=== PATIENT | male | born 1945 | race Caucasian/White ===

== ENCOUNTER → 2017-10-21 15:24 | Outpatient (CLI) | payer MEDICARE, OTHER, SELFPAY ==
[2017-10-21 18:47] LABS: PSA,Total - Annual Screen 1.87 ng/mL (0.00-4.00)
== END ==
PROVIDERS: Visit Provider Urology
DX: Z12.5 Encounter for screening for malignant neoplasm of prostate (principal)
CPT/HCPCS: 36415; 84153; G0103

== ENCOUNTER → 2017-11-18 10:23 | Outpatient (CLI) | payer MEDICARE, OTHER, SELFPAY ==
--- NOTE | 2017-11-18 10:24 | STE_ITS ---
Reason For Study: Arrhythmia Stress Results Protocol: [place] Protocol Maximum Predicted HR: 148 bpm Target HR: 126 bpm% Max imum Predicted HR: 108 % DurationHeart Rate Stage (mm:ss) (bpm) BP Baseline 60 148/84 [place] Protocol Stage I 3:00 10 2 134/78 [place] Protocol Stage II 3:00 12 7 140/74 [place] Protocol Stage III 3:00 15 0 152/76 [place] Protocol Stage IV 1:00 16 0 / Recovery 85 134/80 Stress Duration: 10:00 mm:ss Maximum Stress HR: 160 bpmME TS: 13 Baseline Echocardiogram Findings Stress Echo Wall motion Data Resting WMIntermediate WMStress WM Resting Wall Motion Wall Motion Stress No regional wall motion No regional wall motion abnormalities noted. abnormalities noted. Ejection Fraction 55 %. Ejection Fraction 70 %. EKG Data Baseline ECG demonstrates normal sinus rhythm with a rate of 60 beats per minute. Normal intervals are noted. The resting blood pressure was 148/84. The patient exercised according to the regular [place] protocol for a total duration of 10 min. The maximum heart rate attained was 166 beats per minute. This was 112% of maximum predicted heart rate. The patient exercised into stage 4 of the [place] protocol. During stress, there were no ST or T wave changes noted to suggest ischemia. At peak exercise, upsloping ST changes only were noted, which did not meet the criteria for ischemia. The peak blood pressure was 162/80. No arrhythmias noted. No clinical angina was noted. Interpretation Summary Normal resting LV systolic function. Nonstenotic valves. With stress, the LV size decreased and all segments augmented normally. The LVEF increased from 55% to 70%. Negative for ischemia at 112% of MPHR and at 13.4 METS. Terminated due to leg fatigue. Good BP response to exercise Ordering Physician: Petros Valdez Referring Physician: Petros Valdez Performed By: Evy Zamorano, RDCS, RVT
== END ==
PROVIDERS: Visit Provider Internal Medicine Cardiovascular Disease
DX: I49.9 Cardiac arrhythmia, unspecified (principal); I10 Essential (primary) hypertension; E78.00 Pure hypercholesterolemia, unspecified
CPT/HCPCS: 93017; 93350

== ENCOUNTER → 2018-06-23 06:21 | Outpatient (CLI) | payer MEDICARE, OTHER, SELFPAY ==
[2018-06-23 07:13] LABS: Absolute Neutrophil Count 3.5 X10^3/uL (2.0-7.7); Basophil# 0.04 X10^3/uL; Basophil% 0.7 % (0-1); Eosinophil# 0.34 X10^3/uL; Eosinophils% 6.1 % (0-5); Hematocrit 47.3 % (40-54); Hemoglobin 16.6 g/dl (13.0-16.5); Lymphocyte % 21.6 % (19-41); Mean Corp Hgb Conc 35.1 g/gl (32-36); Mean Corpuscular Hgb 34.8 pg (27.0-32.0); Mean Corpuscular Volume 99.2 fL (80-94); Mean Platelet Vol. 10.7 fl (6.2-12.0); Neutrophil # 3.47 X10^3/uL (2.7-7.7); Neutrophil % 62.6 % (47-70); Platelet Count 207 K/mm3 (150-450); RBC Distribution Width CV 12.7 % (11.6-14.6); RBC Distribution Width SD 45.8 fl (35.1-43.9); Red Blood Count 4.77 M/mm3 (4.6-6.2); White Blood Count 5.6 K/mm3 (4.4-11.0)
[2018-06-23 07:31] LABS: POSITIVE COUNT NO; POSITIVE DIFFERENTIAL NO; POSITIVE MORPHOLOGY NO
[2018-06-23 07:42] LABS: ALB/GLOB Ratio 1.2 RATIO (0.9-2.4); AST(SGOT) 18 U/L (15-37); Alanine Aminotransfer ALT/SGPT 29 U/L (16-61); Albumin, Serum 4.1 g/dL (3.2-5.0); Alkaline Phosphatase 81 U/L (45-117); Anion Gap 8 (5-15); BUN 20 mg/dL (7-18); BUN/Creat Ratio 21.6 RATIO (10-20); Calcium,Total 9.5 mg/dL (8.5-10.1); Chloride 105 mmol/L (98-107); Cholesterol 221 mg/dL (200); Creatinine, Serum 0.93 mg/dL (0.70-1.30); EST Glomerular Filtration Rate 85 mL/min (>60); Est Glom Filt Rate - Afr Amer 103 mL/min (>60); Globulin 3.4 g/dL (2.2-4.2); Glucose 84 mg/dL (74-106); High Density Lipoprotein 76 mg/dL; Potassium 4.4 mmol/L (3.5-5.1); Protein, Total 7.5 g/dL (6.4-8.2); Sodium Level 141 mmol/L (136-145); Triglycerides 90 mg/dL; Very Low Density Lipoprotein 18 mg/dL (5-40)
== END ==
PROVIDERS: Referring Provider Family Medicine; Visit Provider Family Medicine
DX: E78.5 Hyperlipidemia, unspecified (principal); R53.83 Other fatigue
CPT/HCPCS: 36415; 80053; 80061; 85025

== ENCOUNTER → 2018-11-18 14:12 | Outpatient (CLI) | payer MEDICARE, OTHER, SELFPAY ==
[2018-10-07 14:15] VITALS: BMI 22.5
[2018-11-18 16:01] LABS: PSA,Total - Annual Screen 1.98 ng/mL (0.00-4.00)
== END ==
PROVIDERS: PCP Family Medicine; Referring Provider Urology; Visit Provider Urology
DX: Z12.5 Encounter for screening for malignant neoplasm of prostate (principal)
CPT/HCPCS: 36415; 84153; G0103

== ENCOUNTER → 2018-12-23 06:12 | Outpatient (CLI) | payer MEDICARE, OTHER, SELFPAY ==
[2018-10-07 14:15] VITALS: BMI 22.5
[2018-12-23 08:45] LABS: AST(SGOT) 20 U/L (15-37); Alanine Aminotransfer ALT/SGPT 26 U/L (16-61); Albumin, Serum 4.1 g/dL (3.2-5.0); Alkaline Phosphatase 84 U/L (45-117); Bilirubin, Direct 0.12 mg/dL (0.00-0.30); Cholesterol 213 mg/dL (200); Globulin 3.1 g/dL (2.2-4.2); High Density Lipoprotein 78 mg/dL; Protein, Total 7.2 g/dL (6.4-8.2); Triglycerides 98 mg/dL; Very Low Density Lipoprotein 20 mg/dL (5-40)
== END ==
PROVIDERS: PCP Family Medicine; Referring Provider Family Medicine; Visit Provider Family Medicine
DX: E78.5 Hyperlipidemia, unspecified (principal)
CPT/HCPCS: 36415; 80061; 80076

== ENCOUNTER → 2019-05-13 11:32 | Outpatient (CLI) | payer MEDICARE, OTHER, SELFPAY ==
[2018-10-07 14:15] VITALS: BMI 22.5
[2019-05-13 12:41] LABS: Erythrocyte Sedimentation Rate < 1 mm/hr (0-20)
[2019-05-13 13:16] LABS: CRP < 2.90 mg/L (0.0-3.0)
== END ==
PROVIDERS: PCP Family Medicine; Referring Provider Family Medicine; Visit Provider Family Medicine
DX: M31.6 Other giant cell arteritis (principal)
CPT/HCPCS: 36415; 85652; 86140

== ENCOUNTER → 2019-07-17 06:02 | Outpatient (CLI) | payer MEDICARE, OTHER, SELFPAY ==
[2018-10-07 14:15] VITALS: BMI 22.5
[2019-07-17 07:37] LABS: Color, Urine Yellow (Yellow); Glucose, Dipstick Normal (Normal); Ketone-Dipstick Negative (Negative); Leukocyte Esterase-Dipstick Negative /ul (Negative); Nitrite-Dipstick Negative (Negative); Occult Blood-Urine Negative /ul (Negative); Protein-Dipstick Negative (Negative); Urine Bilirubin Dipstick Negative (Negative); Urine Clarity Sl. Cloudy (Clear); Urine Urobilinogen Normal (Normal)
[2019-07-17 07:40] LABS: Absolute Neutrophil Count 3.4 X10^3/uL (2.0-7.7); Basophil# 0.06 X10^3/uL; Basophil% 1.1 % (0-1); Eosinophil# 0.33 X10^3/uL; Eosinophils% 5.9 % (0-5); Hematocrit 46.7 % (40-54); Hemoglobin 16.4 g/dL (13.0-16.5); Lymphocyte % 23.3 % (19-41); Mean Corp Hgb Conc 35.1 g/dL (32-36); Mean Corpuscular Hgb 34.5 pg (27.0-32.0); Mean Corpuscular Volume 98.1 fL (80-94); Mean Platelet Vol. 11.1 fl (6.2-12.0); Monocyte# 0.51 X10^3/uL; Monocyte% 9.2 % (0-10); NRBC Flagged by Analyzer 0 % (0-5); Neutrophil # 3.35 X10^3/uL (2.7-7.7); Neutrophil % 60.1 % (47-70); Platelet Count 195 K/mm3 (150-450); RBC Distribution Width CV 11.9 % (11.6-14.6); RBC Distribution Width SD 43.7 fl (35.1-43.9); Red Blood Count 4.76 M/mm3 (4.6-6.2); White Blood Count 5.6 K/mm3 (4.4-11.0)
[2019-07-17 08:27] LABS: ALB/GLOB Ratio 1.2 RATIO (0.9-2.4); AST(SGOT) 16 U/L (15-37); Alanine Aminotransfer ALT/SGPT 24 U/L (16-61); Albumin, Serum 4.1 g/dL (3.2-5.0); Alkaline Phosphatase 84 U/L (45-117); Anion Gap 11 (5-15); BUN 23 mg/dL (7-18); BUN/Creat Ratio 24.8 RATIO (10-20); Calcium,Total 9.1 mg/dL (8.5-10.1); Chloride 104 mmol/L (98-107); Cholesterol 226 mg/dL (200); Creatinine, Serum 0.93 mg/dL (0.70-1.30); EST Glomerular Filtration Rate 85 mL/min (>60); Est Glom Filt Rate - Afr Amer 102 mL/min (>60); Globulin 3.3 g/dL (2.2-4.2); Glucose 83 mg/dL (74-106); High Density Lipoprotein 82 mg/dL; Potassium 3.9 mmol/L (3.5-5.1); Protein, Total 7.4 g/dL (6.4-8.2); Sodium Level 139 mmol/L (136-145); Thyroid Stim Hormone (TSH) 1.49 uIU/mL (0.358-3.74); Triglycerides 97 mg/dL; Very Low Density Lipoprotein 19 mg/dL (5-40)
== END ==
PROVIDERS: PCP Family Medicine; Referring Provider Family Medicine; Visit Provider Family Medicine
DX: Z00.00 Encounter for general adult medical examination without abnormal findings (principal); E78.5 Hyperlipidemia, unspecified; I10 Essential (primary) hypertension; R53.83 Other fatigue
CPT/HCPCS: 36415; 80053; 80061; 81002; 84443; 85025

== ENCOUNTER → 2020-07-07 | Outpatient (CLI) | payer MEDICARE, OTHER, SELFPAY ==
[2019-10-08 13:20] VITALS: BMI 22.3
[2020-07-07 07:11] LABS: Absolute Lymphocyte Count 1.24 X10^3/uL (0.83-4.51); Absolute Neutrophil Count 3.8 X10^3/uL (2.0-7.7); Basophil# 0.05 X10^3/uL; Basophil% 0.8 % (0-1); Eosinophil# 0.64 X10^3/uL; Eosinophils% 10.2 % (0-5); Hematocrit 47.5 % (40-54); Hemoglobin 16.5 g/dL (13.0-16.5); Lymphocyte # 1.24 X10^3/ul (4.0); Lymphocyte % 19.7 % (19-41); Mean Corp Hgb Conc 34.7 g/dL (32-36); Mean Corpuscular Hgb 34.7 pg (27.0-32.0); Mean Corpuscular Volume 99.8 fL (80-94); Mean Platelet Vol. 10.5 fl (6.2-12.0); Monocyte# 0.55 X10^3/uL; Monocyte% 8.8 % (0-10); NRBC Flagged by Analyzer 0 % (0-5); Neutrophil # 3.78 X10^3/uL (2.7-7.7); Neutrophil % 60.2 % (47-70); Platelet Count 216 K/mm3 (150-450); RBC Distribution Width SD 44.7 fl (35.1-43.9); Red Blood Count 4.76 M/mm3 (4.6-6.2); White Blood Count 6.3 K/mm3 (4.4-11.0)
[2020-07-07 07:51] LABS: ALB/GLOB Ratio 1.2 RATIO (0.9-2.4); AST(SGOT) 19 U/L (15-37); Alanine Aminotransfer ALT/SGPT 23 U/L (16-61); Albumin, Serum 4.1 g/dL (3.2-5.0); Alkaline Phosphatase 84 U/L (45-117); Anion Gap 7 (5-15); BUN 17 mg/dL (7-18); BUN/Creat Ratio 16.3 RATIO (10-20); Chloride 104 mmol/L (98-107); Cholesterol 282 mg/dL (200); Creatinine, Serum 1.04 mg/dL (0.70-1.30); EST Glomerular Filtration Rate 74 mL/min (>60); Est Glom Filt Rate - Afr Amer 90 mL/min (>60); Globulin 3.4 g/dL (2.2-4.2); Glucose 90 mg/dL (74-106); High Density Lipoprotein 88 mg/dL; PSA,Total - Annual Screen 2.08 ng/mL (0.00-4.00); Potassium 4.1 mmol/L (3.5-5.1); Protein, Total 7.5 g/dL (6.4-8.2); Sodium Level 139 mmol/L (136-145); Triglycerides 109 mg/dL; Very Low Density Lipoprotein 22 mg/dL (5-40)
== END | disposition home or self-care (01) ==
PROVIDERS: PCP Family Medicine; Referring Provider Family Medicine; Visit Provider Family Medicine
DX: Z00.00 Encounter for general adult medical examination without abnormal findings (principal); I10 Essential (primary) hypertension; E78.5 Hyperlipidemia, unspecified; Z12.5 Encounter for screening for malignant neoplasm of prostate
CPT/HCPCS: 36415; 80053; 80061; 84153; 85025; G0103

== ENCOUNTER → 2021-04-03 13:05 | Outpatient (CLI) | payer MEDICARE, OTHER, SELFPAY ==
[2020-10-06 12:19] VITALS: BMI 21.7
[2021-04-03 14:03] LABS: Erythrocyte Sedimentation Rate < 1 mm/hr (0-20)
[2021-04-03 14:27] LABS: BNP,B-Type NATRIURETIC PEPTIDE 30.3 pg/mL (0-100)
[2021-04-03 14:37] LABS: Rheumatoid Factor < 10.0 IU/mL (<15); Thyroid Stim Hormone (TSH) 0.81 uIU/mL (0.358-3.74)
[2021-04-05 14:42] LABS: ANTINUCLEAR ANTIBODIES DIRECT Negative (Negative)
== END ==
PROVIDERS: PCP Family Medicine; Referring Provider Family Medicine; Visit Provider Family Medicine
DX: M25.50 Pain in unspecified joint (principal); R60.0 Localized edema; R53.83 Other fatigue
CPT/HCPCS: 36415; 83880; 84443; 85652; 86038; 86431

== ENCOUNTER → 2021-04-18 12:36 | Outpatient (CLI) | payer MEDICARE, OTHER, SELFPAY ==
[2021-04-18 11:40] VITALS: BMI 21.7
[2021-04-18 13:47] LABS: Absolute Neutrophil Count 3.9 X10^3/uL (2.0-7.7); Basophil# 0.05 X10^3/uL; Basophil% 0.8 % (0-1); Eosinophil# 0.27 X10^3/uL; Eosinophils% 4.5 % (0-5); Hematocrit 44.6 % (40-54); Hemoglobin 15.4 g/dL (13.0-16.5); Lymphocyte % 21.9 % (19-41); Mean Corp Hgb Conc 34.5 g/dL (32-36); Mean Corpuscular Hgb 34.2 pg (27.0-32.0); Mean Corpuscular Volume 99.1 fL (80-94); Mean Platelet Vol. 11.3 fl (6.2-12.0); Monocyte# 0.44 X10^3/uL; Monocyte% 7.4 % (0-10); NRBC Flagged by Analyzer 0 % (0-5); Neutrophil # 3.86 X10^3/uL (2.7-7.7); Neutrophil % 65.1 % (47-70); Platelet Count 219 K/mm3 (150-450); RBC Distribution Width CV 11.9 % (11.6-14.6); RBC Distribution Width SD 43.5 fl (35.1-43.9); White Blood Count 5.9 K/mm3 (4.4-11.0)
[2021-04-18 14:28] LABS: ALB/GLOB Ratio 1.3 RATIO (0.9-2.4); AST(SGOT) 19 U/L (15-37); Alanine Aminotransfer ALT/SGPT 27 U/L (16-61); Albumin, Serum 4.1 g/dL (3.2-5.0); Alkaline Phosphatase 80 U/L (45-117); Anion Gap 5 (5-15); BUN 21 mg/dL (7-18); BUN/Creat Ratio 22.6 RATIO (10-20); Calcium,Total 8.9 mg/dL (8.5-10.1); Chloride 104 mmol/L (98-107); Creatinine, Serum 0.93 mg/dL (0.70-1.30); EST Glomerular Filtration Rate 84 mL/min (>60); Est Glom Filt Rate - Afr Amer 102 mL/min (>60); Globulin 3.1 g/dL (2.2-4.2); Glucose 104 mg/dL (74-106); Magnesium 2.3 mg/dL (1.6-2.6); Protein, Total 7.2 g/dL (6.4-8.2); Sodium Level 139 mmol/L (136-145)
== END ==
PROVIDERS: PCP Family Medicine; Referring Provider Nurse Practitioner Family; Visit Provider Nurse Practitioner Family
DX: E78.00 Pure hypercholesterolemia, unspecified (principal); I05.9 Rheumatic mitral valve disease, unspecified; I10 Essential (primary) hypertension; R00.2 Palpitations; R53.83 Other fatigue
CPT/HCPCS: 36415; 80053; 83735; 85025

== ENCOUNTER → 2021-05-01 12:31 | Outpatient (CLI) | payer MEDICARE, OTHER, SELFPAY ==
[2021-04-18 11:40] VITALS: BMI 21.7
--- NOTE | 2021-05-01 12:31 | ECHOD_ITS ---
Reason For Study: Edema, fatigue Procedure This was a 2D Doppler, Color Flow transthoracic echocardiogram. Exam performed in department. Left Ventricle Normal LV size. Left ventricular systolic function is normal. The estimated ejection fraction is 60 %. Stage 1 diastolic dysfunction. No regional wall motion abnormalities noted. Right Ventricle Normal RV size. Normal systolic function. Atria Normal left atrium. Normal right atrium. Mitral Valve There is mild mitral annular calcification. Mild mitral valve prolapse, posterior leaflet. Mild (1+) eccentric mitral valve insufficiency. Tricuspid Valve Normal tricuspid valve. Mild tricuspid valve insufficiency. Pulmonary artery systolic pressure is 23 mmHg. Aortic Valve Trisinus/trileaflet aortic valve. Mild focal aortic valve calcification. Pulmonic Valve Normal pulmonic valve. Great Vessels Normal aortic root. The pulmonary artery is normal size. Normal inferior vena cava. Pericardium/Pleural No pericardial effusion. MMode/2D Measurements & Calculations LVIDd: 4.4 cm IVSd: 1.1 cm Ao root diam: 3.7 cm LVIDs: 2.4 cm LVPWd: 1.0 cm RVDd: 3.5 cm FS: 45.7 % LAV(MOD-bp): 61.9 ml LVAd ap4: 32.5 cm2 LVAd ap2: 32.4 cm2 LAV(MOD-bp) Indexed: 30.9 ml/m2 LVLd ap4: 8.0 cm LVLd ap2: 8.1 cm LAV(MOD-sp2): 65.0 ml EDV(MOD-sp4): 109.3 ml EDV(MOD-sp2): 108.8 ml LAV(MOD-sp4): 60.1 ml EDV(sp4-el): 112.5 ml EDV(sp2-el): 109.7 ml LVAs ap4: 19.4 cm2 LVAs ap2: 20.3 cm2 LVLs ap4: 7.1 cm LVLs ap2: 7.6 cm ESV(MOD-sp4): 45.6 ml ESV(MOD-sp2): 46.1 ml ESV(sp4-el): 45.1 ml ESV(sp2-el): 45.6 ml EF(MOD-sp4): 58.2 % EF(MOD-sp2): 57.6 % EF(sp4-el): 59.9 % SV(MOD-sp4): 63.6 ml SV(MOD-sp2): 62.7 ml SV(sp4-el): 67.4 ml LA dimension(2D): 4.5 cm LA A4 area: 19.6 cm2 RA A4 area: 17.5 cm2 Doppler Measurements & Calculations MV E max chandler: 84.2 cm/sec Lat Peak E' Chandler: 6.3 cm/sec Med Peak E' Chandler: 4.8 cm/sec MV A max chandler: 86.9 cm/sec E/E' lat: 13.4 E/E' med: 17.6 MV E/A: 0.97 Ao V2 max: 127.2 cm/sec LV V1 max: 96.2 cm/sec PA V2 max: 119.7 cm/sec Ao max P.5 mmHg LV V1 max P.7 mmHg TR max chandler: 219.7 cm/sec TR max P.4 mmHg ECHO/Echo Complete Interpretation Summary Normal LV size. Left ventricular systolic function is normal. The estimated ejection fraction is 60 %. Stage 1 diastolic dysfunction. Mild (1+) eccentric mitral valve insufficiency. Mild mitral valve prolapse, posterior leaflet Ordering Physician: Nathanael Zamorano/Petros Valdez Referring Physician: Clarence Mullen M.D. Performed By: Petros Valdez MD
== END ==
PROVIDERS: PCP Family Medicine; Referring Provider Nurse Practitioner Family; Visit Provider Nurse Practitioner Family
DX: R00.2 Palpitations (principal); R53.83 Other fatigue; I10 Essential (primary) hypertension; E78.00 Pure hypercholesterolemia, unspecified; I05.9 Rheumatic mitral valve disease, unspecified
CPT/HCPCS: 93306

== ENCOUNTER → 2021-05-05 12:35 | Outpatient (CLI) | payer MEDICARE, OTHER, SELFPAY ==
[2021-04-18 11:40] VITALS: BMI 21.7
--- NOTE | 2021-05-05 12:37 | STE_ITS ---
Stress Results Protocol: [place] Protocol Maximum Predicted HR: 144 bpm Target HR: 122 bpm % Maximum Predicted HR: 100 % DurationHeart Rate Stage (mm:ss) (bpm) BP BASELINE 68 142/72 STAGE 1 3:00 86 140/80 STAGE 2 3:00 113 172/82 STAGE 3 3:00 137 182/82 STAGE 4 1:16 144 / RECOVERY 87 142/62 Stress Duration: 10:16 mm:ss Maximum Stress HR: 144 bpm Baseline Echocardiogram Findings Stress Echo Wall motion Data Resting WM Intermediate WM Stress WM ECHO/Stress Test Echo w/o Contrast Interpretation Summary Exercise stress echo. Stress protocol: Resting EKG demonstrates normal sinus rhythm with a rate of 65 bpm. The patient exercised according to regular [place] protocol for total duration of 10 minutes and 16 seconds compl eting 1 minute and 16 seconds into stage IV of the Salinas protocol. The maximum heart rate was 164 bpm which was 113% of maximum predicted heart rate the maximum workload was 13.4 metabolic equivalent s. The patient maintained sinus rhythm throughout the recording. There were occasional prematu re atrial and ventricular complexes noted towards the end of stage IV and during recovery. Th mayra were largely asymptomatic. At rest there were no ST changes noted to suggest ischemia and at peak exercise upsloping ST changes were noted which did not meet the criteria for ischemia. T here was an occasional blocked PAC noted. The peak blood pressure was 182/82 mmHg. The test was terminated due to target heart rate being achieved. Resting echocardiogram: The resting echocardiogram demonstrated ejection fracti on of 55%. At peak exercise there was thickening of all dent and reduction in low ventricular cav ity size peaking of ejection fraction of approximately 65%. No wall motion abnormalities were noted . Conclusion: Exercise stress echo with no EKG criteria or echocardiographic criteria for isc hemia. Good functional aerobic capacity. Ordering Physician: Nathanael Zamorano Referring Physician: Nathanael Zamorano
--- NOTE | 2021-05-05 15:13 | STRESSREP_ITS ---
Stress Test Report Exercise stress test. 76-year-old male with a history of cardiac dysrhythmia. Stress protocol: Resting EKG demonstrates normal sinus rhythm with a rate of 65 bpm normal intervals are noted. The resting blood pressure is 142/72 mmHg. The patient exercised according to regular [place] protocol for total duration of 10 minutes and 16 seconds completing 1 minute and 16 seconds into stage IV of the Sal[place] protocol. The maximum heart rate attained was 164 bpm which was 113% of max impact her heart rate the maximum workload was 13.4 metabolic equivalents. The patient maintained sinus rhythm throughout the recording the test was terminated due to the target heart rate being achieved. No chest pain was noted no arrhythmias were noted. The peak blood pressure was 182/82 mmHg with a rate- pressure product of 26,936. No clinical angina was noted. Conclusion: Stress test with no EKG criteria for ischemia at a high workload. Excellent functional aerobic capacity. No arrhythmias noted.
== END ==
PROVIDERS: PCP Family Medicine; Referring Provider Nurse Practitioner Family; Visit Provider Nurse Practitioner Family
DX: I05.9 Rheumatic mitral valve disease, unspecified (principal); I49.9 Cardiac arrhythmia, unspecified; R00.2 Palpitations; R53.83 Other fatigue; I10 Essential (primary) hypertension; E78.00 Pure hypercholesterolemia, unspecified
CPT/HCPCS: 93017; 93350

== ENCOUNTER 2021-10-05 06:14 | Outpatient (CLI) | payer MEDICARE, SELFPAY ==
[2021-10-05 09:10] LABS: ALB/GLOB Ratio 1.2 RATIO (0.9-2.4); AST(SGOT) 18 U/L (15-37); Alanine Aminotransfer ALT/SGPT 25 U/L (16-61); Albumin, Serum 4.1 g/dL (3.2-5.0); Alkaline Phosphatase 85 U/L (45-117); Anion Gap 7 (5-15); BUN 22 mg/dL (7-18); BUN/Creat Ratio 22.3 RATIO (10-20); Calcium,Total 9.1 mg/dL (8.5-10.1); Chloride 104 mmol/L (98-107); Cholesterol 230 mg/dL (200); Creatinine, Serum 0.99 mg/dL (0.70-1.30); EST Glomerular Filtration Rate 78 mL/min (>60); Est Glom Filt Rate - Afr Amer 95 mL/min (>60); Globulin 3.5 g/dL (2.2-4.2); Glucose 89 mg/dL (74-106); High Density Lipoprotein 79 mg/dL; Potassium 4.1 mmol/L (3.5-5.1); Protein, Total 7.6 g/dL (6.4-8.2); Sodium Level 138 mmol/L (136-145); Triglycerides 83 mg/dL; Very Low Density Lipoprotein 17 mg/dL (5-40)
[2021-10-05 09:20] LABS: Hepatitis C Antibody Non-Reactive (Nonreactive); Vitamin B12 > 2000 pg/mL (211-911)
== END 2021-10-05 23:59 | disposition short-term general hospital (02) ==
LOC: LAB 06:19
PROVIDERS: PCP Internal Medicine; Referring Provider Internal Medicine; Visit Provider Internal Medicine
DX: Z11.59 Encounter for screening for other viral diseases (principal); D75.89 Other specified diseases of blood and blood-forming organs; E78.5 Hyperlipidemia, unspecified; I10 Essential (primary) hypertension
CPT/HCPCS: 36415; 80053; 80061; 82607; 82746; 86803

== ENCOUNTER 2022-01-10 10:00 | Day surgery (SDC) | payer MEDICARE, SELFPAY ==
[2022-01-10] VITALS (7 sets, daily range): BP systolic 88–143; BP diastolic 61–88; PULSE 57–68; RESP 16–18; TEMP 36.2–36.5; O2SAT 92–100; BMI 21.8
--- NOTE | 2022-01-10 | COLBX_PTH ---
PATIENT: BRIANNA COLEMAN LOC: EN U#:[id number] AGE/SX: 76/M ROOM: RE01/10/[address]: Dr. David Parra DO : 1945 BED: DIS: 01/10/2022 SPEC #: [id number] RECD: 01/10/22 13:11 STATUS: AUBREY REDarien #: [id number] ANAIS: 01/10/22 00:[address]: David Parra DEPT: SURGICAL PATHOLOGY RECD BY: Kuldeep Chong ENTERED: 01/11/22 07:59 SP TYPE: COLON BX OTHR DR: Dr. Francheska Alonzo DO Tissues: A - Duodenum, NOS B - Gastric mucous membrane C - Esophageal mucous membrane D - Descending colon Procedures: Special Stain Group II Surgery Specimen Level IV Alcian Blue/PAS (control) HEADER OPERATION: Colonoscopy, [place] [place] PRE-OP DIAGNOSIS: History of Colon Polyp, GERD TISSUE SUBMITTED: A ? Duodenum biopsy, B - Gastric body biopsy, C - Distal Esophagus biopsy, D - Descending Colon polyp MICROSCOPIC DIAGNOSIS A. Duodenum, biopsy: Fragments of duodenal mucosa with mild Tono gland hyperplasia. B. Gastric body, biopsy: Mild gastritis. See microscopic description and comment. C. 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 Moderate chronic inflammation. Negative for dysplasia. See comment. D. Descending colon polyp, biopsy: A fragment of colonic mucosa, no pathologic diagnosis. Fragments of fecal material. SJ:sanjay 01/12/2022 COMMENT B. The results of immunohistochemistry for Helicobacter pylori will be reported separately ([id number]). C. Immunohistochemistry ([id number]) for P53 and Ki-67 will be performed and results will be reported separately. Alcian blue/PAS stain with matched control supports the above diagnosis. MICROSCOPIC DESCRIPTION Slides are reviewed. B. The specimen shows fragments of gastric mucosa with chronic inflammatory cell infiltrates in the lamina propria consisting of lymphocytes and plasma cells, consistent with mild chronic gastritis. GROSS DESCRIPTION A - Received in fixative is one container labeled with the patient's name and designated duodenum biopsy. The specimen consists of multiple irregular fragments of light rick soft tissue that in aggregate measure 0.5 x 0.5 x 0.1 cm. The specimen is totally submitted in one cassette. B - Received in fixative is one container labeled with the patient's name and designated gastric body biopsy. The specimen consists of multiple irregular fragments of light rick soft tissue that in aggregate measure 0.5 x 0.4 x 0.1 cm. The specimen is totally submitted in one cassette. C - Received in fixative is one container labeled with the patient's name and designated distal esophagus biopsy. The specimen consists of multiple irregular fragments of light rick soft tissue that in aggregate measure 0.6 x 0.3 x 0.1 cm. The specimen is totally submitted in one cassette. D - Received in fixative is one container labeled with the patient's name and designated descending colon polyp. The specimen consists of two irregular fragments of light rick soft tissue that in aggregate measure 0.3 x 0.3 x 0.1 cm. The specimen is totally submitted in one cassette. / SJ:rg 01/11/2022 TC:5 CPT: 37811 x4, 00682
--- NOTE | 2022-01-10 10:41 | HP.PCM_ITS ---
History and Physical Date of Admission: 01/10/22 BRIANNA COLEMAN, is a 76 M who presents to the office today for hx of colon polyp 5 yrs ago, now due for his 5-yr f/u colonoscopy. His father had colon cancer in his early 60s, but lived decades after that. Pt has acid reflux, took himself off PPI since he prefers to avoid meds when possible. Notes heartburn when he eats certain foods or eats too much at a time. He has been told he has a hiatal hernia. Has had EGD in past, wasn't done with his last colonoscopy. No hx of Onofre's esophagus. Bowels are normal. He was having some bloating but that resolved with probiotic. ROS Const Constitutional: No fatigue, fever(s), headache(s), weight change, sleep problems, abnormal sleep pattern or change in appetite ENT ENT: No headache(s), difficulty swallowing, hoarseness or sore throat Resp Respiratory: No cough, hemoptysis or shortness of breath Cardio Cardiology: No chest pain at rest or generalized swelling Gastro GI: Positive for heartburn; No abdominal pain, belching, bloating, change in bowel habits, change in stool character, coffee ground emesis, constipation, cramping, diarrhea, difficulty swallowing, feeling full early, excessive flatus, incontinent of stools, Vomiting blood/hematemesis, Blood in stool, loose stools, Black,tarry stools, nausea/dyspepsia, pain with swallowing or vomiting Musc Musculoskeletal: No joint pain, back pain, joint swelling, numbness or tingling Skin Skin: No itchy eyes or rash Neuro Neurology: No behavioral changes, confusion, headache(s), numbness or tingling Psych Psychiatric: No abnormal sleep pattern, No anxiety, No behavioral changes, No change in appetite, No confusion and No depression Endo Endocrine: No cold intolerance, fatigue, heat intolerance, increased thirst/drinking or weight change Aller/Imm Allergy/Immunologic: No food intolerance or itchy eyes Tang/Lymp Hematologic/Lymphatic: No easy bleeding, easy bruising or enlarged lymph nodes Exam Const General: cooperative, healthy appearing, comfortable, no acute distress, well developed and well groomed Quality Reporting Tobacco Screening ([facility] 138) Smoking Status: Never smoker Assessment and Plan Assessment and Plan (1) Hx of colonic polyp: Status: Acute (2) GERD (gastroesophageal reflux disease): Status: Acute Plan: 76 yr old male with hx of one colon polyp 5 yrs ago, acid reflux. Plan is upper and lower endoscopy, then f/u 2 wks after that. I have re-examined the patient. There are no clinical changes since date of exam.
--- NOTE | 2022-01-10 11:00 | IMM_PTH ---
PATIENT: BRIANNA COLEMAN LOC: EN U#:[id number] AGE/SX: 76/M ROOM: RE01/10/[address]: Dr. David Parra DO : 1945 BED: DIS: 01/10/2022 SPEC #: [id number] RECD: 01/10/22 13:11 STATUS: AUBREY REQ #: [id number] ANAIS: 01/10/22 11:[address]: David Parra DEPT: IMMUNOHISTOCHEMISTRY RECD BY: Beatriz Cabrera ENTERED: 01/11/22 08:21 SP TYPE: IMMUNO OTHR DR: Dr. Francheska Alonzo DO Tissues: B - Gastric mucous membrane C - Esophagus, NOS Procedures: H Pylori (initial) P53 (initial) KI-67 (add) PHYSICIAN & INSTITUTION [place] [id number] SPECIMEN INFORMATION: Tissue Source: B - Gastric Body Biopsy, C ? Distal esophagus biopsy Clinical Info: History of colon polyp, GERD Specimen Number: [id number] B & C CPT code: 91210 x2, 28268 METHODOLOGY: Deparaffinized sections of prefer/formalin-fixed tissue or PAP/DQ stained slides are incubated with monoclonal/polyclonal antibodies/oligonucleotide probes. Localization is made via biotin free immunoperoxidase method. Appropriate controls are performed and reacted as expected. Results on target cell population are indicated in the following table: RESULTS: ANTIBODY / CLONE RESULT Block B H Pylori (polyclonal) negative Block C P53 (DO-7) negative Ki-67 (30-9) positive, low These tests were developed and their performance characteristics determined by [facility]. They may not have been cleared or approved by the U.S. Food and Drug Administration. The FDA has determined that such clearance or approval is not necessary. The above immunohistochemical/dualISH markers are ordered and reviewed by the Pathologist. INTERPRETATION: B. Gastric body, biopsy: Negative for Helicobacter pylori organisms. C. Distal esophagus, biopsy: Negative for dysplasia. SJ:sanjay 01/12/2022
--- NOTE | 2022-01-10 11:40 | OP.EGD_ITS ---
Patient Name: Jung Aburto Procedure Date: 01/10/2022 10:40 AM Date of : 1945 Age: 76 Procedure: Upper GI endoscopy Indications: Heartburn Providers: David Parra DO Medicines: Monitored Anesthesia Care Patient Profile: This is a 76 year old male. Refer to note in patient chart for documentation of history and physical. Patient has symptoms of chronic heartburn. He is status post EGD for Onofre's biopsy. Complications: No immediate complications. Procedure: Pre-Anesthesia Assessment: - Prior to the procedure, a History and Physical was performed, and patient medications and allergies were reviewed. The patient is competent. The risks and benefits of the procedure and the sedation options and risks were discussed with the patient. All questions were answered and informed consent was obtained. Patient identification and proposed procedure were verified by the physician in the pre-procedure area. Mental Status Examination: alert and oriented. Airway Examination: normal oropharyngeal airway and neck mobility. Respiratory Examination: clear to auscultation. CV Examination: normal. Prophylactic Antibiotics: The patient does not require prophylactic antibiotics. Prior Anticoagulants: The patient has taken no previous anticoagulant or antiplatelet agents. ASA Grade Assessment: II - A patient with mild systemic disease. After reviewing the risks and benefits, the patient was deemed in satisfactory condition to undergo the procedure. The anesthesia plan was to use moderate sedation / analgesia (conscious sedation). Immediately prior to administration of medications, the patient was re-assessed for adequacy to receive sedatives. The heart rate, respiratory rate, oxygen saturations, blood pressure, adequacy of pulmonary ventilation, and response to care were monitored throughout the procedure. The physical status of the patient was re-assessed after the procedure. After obtaining informed consent, the endoscope was passed under direct vision. Throughout the procedure, the patient's blood pressure, pulse, and oxygen saturations were monitored continuously. The Colonoscope was introduced through the mouth, and advanced to the second part of duodenum. The upper GI endoscopy was accomplished without difficulty. The patient tolerated the procedure well. Moderate Sedation: Moderate (conscious) sedation was administered by the endoscopy nurse and supervised by the endoscopist. The patient's oxygen saturation, heart rate, blood pressure and response to care were monitored. Total physician intraservice time was 15 minutes. Scope In: 10:57:43 AM Scope Out: 11:05:59 AM Total Procedure Duration Time 0 hours 8 minutes 16 seconds Findings: LA Grade B (one or more mucosal breaks greater than 5 mm, not extending between the tops of two mucosal folds) esophagitis with no bleeding was found 36 to 40 cm from the incisors. Biopsies were taken with a cold forceps for histology. Verification of patient identification for the specimen was done. Estimated blood loss was minimal. A medium-sized hiatal hernia was present. Patchy mild inflammation characterized by congestion (edema) and erythema was found in the gastric body. Biopsies were taken with a cold forceps for histology. Verification of patient identification for the specimen was done. Estimated blood loss was minimal. Patchy mildly erythematous mucosa without active bleeding and with no stigmata of bleeding was found in the duodenal bulb. Biopsies were taken with a cold forceps for histology. Verification of patient identification for the specimen was done. Estimated blood loss was minimal. Impression: - LA Grade B reflux esophagitis. Biopsied. - Medium-sized hiatal hernia. - Chronic gastritis. Biopsied. - Erythematous duodenopathy. Biopsied. Recommendation: - Discharge patient to home. - Resume previous diet. - Continue present medications. - Await pathology results. Procedure Code(s): --- Professional --- 70213, Esophagogastroduodenoscopy, flexible, transoral; with biopsy, single or multiple G0500, Moderate sedation services provided by the same physician or other qualified health acute care assistant performing a gastrointestinal endoscopic service that sedation supports, requiring the presence of an independent trained observer to assist in the monitoring of the patient's level of consciousness and physiological status; initial 15 minutes of intra-service time; patient age 5 years or older (additional time may be reported with 53414, as appropriate) CPT copyright 2017 [employer]. All rights reserved. The codes documented in this report are preliminary and upon certified coder review may be revised to meet current compliance requirements. David Parra DO 01/10/2022 11:40:16 AM This report has been signed electronically. Number of Addenda: 1 Note Initiated On: 01/10/2022 10:40 AM Addendum Number: 1 Addendum Date: 06/08/2022 6:32:09 AM MAC was used as sedation for this procedure. David Parra DO 06/08/2022 6:32:13 AM This report has been signed electronically.
--- NOTE | 2022-01-10 11:40 | OP.CCLET_ITS ---
06/08/2022 Francheska Alonzo Re : Upper GI endoscopy procedure for Jung Alonzo This procedure was performed on Monday, January 10, 2022. My impressions and recommendations are as follows: Impressions : - LA Grade B reflux esophagitis. Biopsied. - Medium-sized hiatal hernia. - Chronic gastritis. Biopsied. - Erythematous duodenopathy. Biopsied. Recommendations : - Discharge patient to home. - Resume previous diet. - Continue present medications. - Await pathology results. My findings are described in the full procedure note, which is enclosed. If I can be of further assistance, please feel free to contact me at . Sincerely, David Parra DO 01/10/2022 11:40:16 AM This report has been signed electronically.
--- NOTE | 2022-01-10 11:46 | OP.COLON_ITS ---
Patient Name: Jung Aburto Procedure Date: 01/10/2022 11:06 AM Date of : 1945 Age: 76 Procedure: Colonoscopy Indications: Follow-up for history of adenomatous polyps in the colon Providers: David Parra DO Medicines: Monitored Anesthesia Care Patient Profile: This is a 76 year old male. Refer to note in patient chart for documentation of history and physical. Patient has symptoms of chronic heartburn. He is status post EGD for Onofre's biopsy. He is status post colonoscopy for polyp removal within the past five years. Last Colonoscopy: 5 years ago. Complications: No immediate complications. Procedure: Pre-Anesthesia Assessment: - Prior to the procedure, a History and Physical was performed, and patient medications and allergies were reviewed. The patient is competent. The risks and benefits of the procedure and the sedation options and risks were discussed with the patient. All questions were answered and informed consent was obtained. Patient identification and proposed procedure were verified by the physician in the pre-procedure area. Mental Status Examination: alert and oriented. Airway Examination: normal oropharyngeal airway and neck mobility. Respiratory Examination: clear to auscultation. CV Examination: normal. Prophylactic Antibiotics: The patient does not require prophylactic antibiotics. Prior Anticoagulants: The patient has taken no previous anticoagulant or antiplatelet agents. ASA Grade Assessment: II - A patient with mild systemic disease. After reviewing the risks and benefits, the patient was deemed in satisfactory condition to undergo the procedure. The anesthesia plan was to use moderate sedation / analgesia (conscious sedation). Immediately prior to administration of medications, the patient was re-assessed for adequacy to receive sedatives. The heart rate, respiratory rate, oxygen saturations, blood pressure, adequacy of pulmonary ventilation, and response to care were monitored throughout the procedure. The physical status of the patient was re-assessed after the procedure. After I obtained informed consent, the scope was passed under direct vision. Throughout the procedure, the patient's blood pressure, pulse, and oxygen saturations were monitored continuously. The pediatric colonoscope was introduced through the anus and advanced to the terminal ileum. The colonoscopy was performed without difficulty. The patient tolerated the procedure well. The quality of the bowel preparation was good. Scope In: 11:08:31 AM Scope Withdrawal Time 0 hours 16 minutes 52 seconds Scope Out: 11:32:20 AM Total Procedure Duration Time 0 hours 23 minutes 49 seconds Findings: The perianal and digital rectal examinations were normal. A 5 mm polyp was found in the descending colon. The polyp was sessile. The polyp was removed with a cold snare. Resection and retrieval were complete. Verification of patient identification for the specimen was done. Estimated blood loss was minimal. A few small and large-mouthed diverticula were found in the recto-sigmoid colon, sigmoid colon and descending colon. Impression: - One 5 mm polyp in the descending colon, removed with a cold snare. Resected and retrieved. - Diverticulosis in the recto-sigmoid colon, in the sigmoid colon and in the descending colon. There also was an impaction of the appendiceal orifice with hard stool. Appendicitis can occur when there is a blockage where the appendix and the large intestine meet. Most of this was removed. Recommendation: - Discharge patient to home. - Patient has a contact number available for emergencies. The signs and symptoms of potential delayed complications were discussed with the patient. Return to normal activities tomorrow. Written discharge instructions were provided to the patient. - Resume previous diet. -Augmentin twice a day for 7 days. - Continue present medications. - Await pathology results. - Repeat colonoscopy in 5 years for surveillance. - Return to GI office in 1 week. Procedure Code(s): --- Professional --- 96482, Colonoscopy, flexible; with removal of tumor(s), polyp(s), or other lesion(s) by snare technique CPT copyright 2017 [employer]. All rights reserved. The codes documented in this report are preliminary and upon structural analysis engineer review may be revised to meet current compliance requirements. David Parra DO 01/10/2022 11:46:14 AM This report has been signed electronically. Number of Addenda: 1 Note Initiated On: 01/10/2022 11:06 AM Addendum Number: 1 Addendum Date: 06/08/2022 6:32:21 AM MAC was used as sedation for this procedure. David Parra DO 06/08/2022 6:32:27 AM This report has been signed electronically.
--- NOTE | 2022-01-10 11:47 | OP.CCLET_ITS ---
06/08/2022 Francheska Alonzo Re : Colonoscopy procedure for Jung Alonzo This procedure was performed on Monday, January 10, 2022. My impressions and recommendations are as follows: Impressions : - One 5 mm polyp in the descending colon, removed with a cold snare. Resected and retrieved. - Diverticulosis in the recto-sigmoid colon, in the sigmoid colon and in the descending colon. There also was an impaction of the appendiceal orifice with hard stool. Appendicitis can occur when there is a blockage where the appendix and the large intestine meet. Most of this was removed. Recommendations : - Discharge patient to home. - Patient has a contact number available for emergencies. The signs and symptoms of potential delayed complications were discussed with the patient. Return to normal activities tomorrow. Written discharge instructions were provided to the patient. - Resume previous diet. -Augmentin twice a day for 7 days. - Continue present medications. - Await pathology results. - Repeat colonoscopy in 5 years for surveillance. - Return to GI office in 1 week. My findings are described in the full procedure note, which is enclosed. If I can be of further assistance, please feel free to contact me at . Sincerely, David Parra, 01/10/2022 11:46:14 AM This report has been signed electronically.
== END 2022-01-10 12:42 | disposition home or self-care (01) ==
LOC: EN 10:01 → AC 10:02
PROVIDERS: PCP Internal Medicine; Referring Provider Internal Medicine; Visit Provider Internal Medicine Gastroenterology
PROC: 0DJD8ZZ Inspection of Lower Intestinal Tract, Via Natural or Artificial Opening Endoscopic (ICD-10-PCS; CPT 45378; principal; 2022-01-10 10:55)
DX: K21.00 Gastro-esophageal reflux disease with esophagitis, without bleeding (principal); K57.30 Diverticulosis of large intestine without perforation or abscess without bleeding; Z86.010 Personal history of colon polyps; K44.9 Diaphragmatic hernia without obstruction or gangrene; K63.5 Polyp of colon; K29.50 Unspecified chronic gastritis without bleeding; I73.00 Raynaud's syndrome without gangrene; E78.5 Hyperlipidemia, unspecified; I10 Essential (primary) hypertension; M19.90 Unspecified osteoarthritis, unspecified site
CPT/HCPCS: 45385; 43239; 88305; 88313; 88341; 88342; J7120; J2405

== ENCOUNTER → 2022-01-19 | Outpatient (CLI) | payer MEDICARE, SELFPAY ==
[2022-01-19 07:56] LABS: ALB/GLOB Ratio 1.2 RATIO (0.9-2.4); AST(SGOT) 22 U/L (15-37); Alanine Aminotransfer ALT/SGPT 27 U/L (16-61); Albumin, Serum 3.8 g/dL (3.2-5.0); Alkaline Phosphatase 78 U/L (45-117); Anion Gap 6 (5-15); BUN 25 mg/dL (7-18); BUN/Creat Ratio 23.4 RATIO (10-20); Calcium,Total 9.2 mg/dL (8.5-10.1); Chloride 106 mmol/L (98-107); Cholesterol 200 mg/dL (200); Creatinine, Serum 1.07 mg/dL (0.70-1.30); EST Glomerular Filtration Rate 71 mL/min (>60); Est Glom Filt Rate - Afr Amer 86 mL/min (>60); Globulin 3.3 g/dL (2.2-4.2); Glucose 97 mg/dL (74-106); High Density Lipoprotein 77 mg/dL; Protein, Total 7.1 g/dL (6.4-8.2); Sodium Level 137 mmol/L (136-145); Triglycerides 63 mg/dL; Very Low Density Lipoprotein 13 mg/dL (5-40)
== END | disposition home or self-care (01) ==
PROVIDERS: PCP Internal Medicine; Referring Provider Internal Medicine; Visit Provider Internal Medicine
DX: E78.5 Hyperlipidemia, unspecified (principal); Z12.5 Encounter for screening for malignant neoplasm of prostate
CPT/HCPCS: 36415; 80053; 80061; 84153; G0103

== ENCOUNTER → 2022-04-05 | Outpatient (CLI) | payer MEDICARE, SELFPAY ==
--- NOTE | 2022-04-05 09:26 | BI_ITS ---
MAMMOGRAPHY - BILATERAL DIAGNOSTIC REASON FOR EXAM: Male, 76 years old. One-month history of a palpable tenderness in the retrohilar region of the right breast. PERTINENT HISTORY: Mother with breast cancer. TECHNIQUE: Digital bilateral breast delia (3D mammographic acquisition) in the CC and MLO projections. 2-D mediolateral oblique (MLO) and craniocaudad (CC) views of both breasts were obtained. CAD: Full Field Digital Mammography with Computer Added Detection was performed. COMPARISON: None. Baseline examination. FINDINGS: Breast Composition: There are scattered areas of fibroglandular density. There are no dominant masses or suspicious calcifications. Asymmetry of breast tissue with more breast tissue is seen in the retroareolar region of the right breast as compared to the left side. This most likely represents gynecomastia. Correlation with ultrasound is recommended. No other significant abnormalities are identified. BI/DIAG MAMM W/CAD, BILAT IMPRESSION: Findings suggestive of bilateral gynecomastia more prominent on the right side. Correlation with ultrasound of the right breast is recommended. ASSESSMENT CATEGORY: BIRADS Category 0: Incomplete. Need additional imaging evaluation. A letter regarding these results will be sent to the patient by the facility within 30 days. Approximately 10% of breast cancers are not detected by mammography. A normal mammogram should not delay biopsy of a clinically suspicious abnormality. Electronically Signed: Mo Angulo MD at 10:12 EDT ,
--- NOTE | 2022-04-05 09:57 | US_ITS ---
STUDY: ULTRASOUND BREAST - RIGHT REASON FOR EXAM: Male, 76 years old. Palpable lump in the right breast. TECHNIQUE: Axial and longitudinal images of the RIGHT breast were performed with a high resolution ultrasound transducer. # OF IMAGES: 20 COMPARISON: Comparison is made with prior mammogram done earlier today. FINDINGS: RIGHT Breast: There is evidence of retrocrural areolar glandular tissue. This is suggestive of a gynecomastia. US/Breast Limited Unilateral IMPRESSION: Findings suggestive of gynecomastia. ASSESSMENT CATEGORY: BIRADS Category 2: Benign. A letter regarding these results will be sent to the patient by the facility within 30 days. Electronically Signed: Mo Angulo MD at 14:46 EDT ,
== END | disposition home or self-care (01) ==
PROVIDERS: PCP Internal Medicine; Visit Provider Internal Medicine
DX: N64.59 Other signs and symptoms in breast (principal)
CPT/HCPCS: 76642; 77062; 77066; G0279

== ENCOUNTER → 2022-05-09 | Outpatient (CLI) | payer MEDICARE, SELFPAY ==
[2022-05-09 09:14] LABS: Estradiol 33.7 pg/mL; Follicle Stimulating Hormone 68.8 mIU/mL; Luteinizing Hormone 31.5 mIU/mL; Prolactin 10.9 ng/mL
[2022-05-10 12:31] LABS: HCG BETA-SUBUNIT QUANT. 3 mIU/mL (0-3)
[2022-05-22 16:09] LABS: Testosterone, % Free 1.78 % (1.50-4.20); Testosterone, Free 9.86 ng/dL (5.00-21.00)
[2022-05-23 12:02] LABS: DHEA Sulfate 36.8 ug/dL (20.8-226.4); Testosterone, Total 554 ng/dL (264-916)
== END | disposition home or self-care (01) ==
LOC: LAB 08:02
PROVIDERS: PCP Internal Medicine; Referring Provider Internal Medicine; Visit Provider Internal Medicine
DX: N62 Hypertrophy of breast (principal)
CPT/HCPCS: 36415; 82627; 82670; 83001; 83002; 84146; 84402; 84403; 84702; 82626

== ENCOUNTER → 2022-09-14 | Outpatient (CLI) | payer MEDICARE, SELFPAY ==
--- NOTE | 2022-09-14 12:55 | US_ITS ---
STUDY: RENAL ULTRASOUND - COMPLETE REASON FOR EXAM: Male, 77 years old. PAIN FLANK BILATERAL TECHNIQUE: Ultrasound evaluation of the kidneys was performed with real-time and static abdi-scale imaging. COMPARISON: Comparison is made with prior study dated 05/03/2016. FINDINGS: RIGHT KIDNEY: Normal location of the right kidney, which is normal in size. The right kidney measures 13 cm x 5.8 cm x 4.7 cm. There is a normal cortex of the right kidney. The renal cortex measures 1.4 cm. There is a 9.4 cm x 6.2 cm x 6.2 cm cyst. There are no right renal calculi. There is no right hydronephrosis. DISTAL RIGHT URETER: There is non-visualization of the distal right ureter. There is no demonstrated right ureterovesical junction calculus. There is a visualized right ureteral jet. LEFT KIDNEY: Normal location of the left kidney, which is normal in size. The left kidney measures 12.3 cm x 5.6 cm x 5.7 cm. There is a normal cortex of the left kidney. The renal cortex measures 1.5 cm. There is a 2.9 cm x 2.9 cm x 1.9 cm cyst. There are no left renal calculi. There is no left hydronephrosis. DISTAL LEFT URETER: There is non-visualization of the distal left ureter. There is no demonstrated left ureterovesical junction calculus. There is a visualized left ureteral jet. BLADDER: The distended urinary bladder has a volume of 126 ml. Urinary bladder wall thickness measures 4 mm. This is slightly thickened. There is no demonstrated mass within the urinary bladder. There are no demonstrated bladder calculi. The prostate is enlarged measuring 6.8 cm x 6 cm x 3.6 cm. US/Kidney and Bladder IMPRESSION: Bilateral renal cysts. Prostatic enlargement. Electronically Signed: Mo Angulo MD at 14:20 EST ,
== END | disposition home or self-care (01) ==
LOC: US 12:48
PROVIDERS: PCP Internal Medicine; Referring Provider Internal Medicine; Visit Provider Internal Medicine
DX: R10.9 Unspecified abdominal pain (principal)
CPT/HCPCS: 76770

== ENCOUNTER → 2022-10-29 | Outpatient (CLI) | payer MEDICARE, SELFPAY ==
[2022-10-29 07:59] LABS: Absolute Neutrophil Count 3.7 X10^3/uL (2.0-7.7); Basophil# 0.04 X10^3/uL; Basophil% 0.7 % (0-1); Eosinophil# 0.31 X10^3/uL; Eosinophils% 5.5 % (0-5); Hematocrit 43.9 % (40-54); Hemoglobin 15.3 g/dL (13.0-16.5); Lymphocyte % 21.4 % (19-41); Mean Corp Hgb Conc 34.9 g/dL (32-36); Mean Corpuscular Hgb 34.3 pg (27.0-32.0); Mean Corpuscular Volume 98.4 fL (80-94); Mean Platelet Vol. 11.1 fl (6.2-12.0); Monocyte% 7.1 % (0-10); NRBC Flagged by Analyzer 0 % (0-5); Neutrophil # 3.65 X10^3/uL (2.7-7.7); Neutrophil % 64.9 % (47-70); Platelet Count 195 K/mm3 (150-450); RBC Distribution Width CV 12.3 % (11.6-14.6); RBC Distribution Width SD 44.5 fl (35.1-43.9); Red Blood Count 4.46 M/mm3 (4.6-6.2); White Blood Count 5.6 K/mm3 (4.4-11.0)
[2022-10-29 08:28] LABS: ALB/GLOB Ratio 1.3 RATIO (0.9-2.4); AST(SGOT) 19 U/L (15-37); Alanine Aminotransfer ALT/SGPT 26 U/L (16-61); Alkaline Phosphatase 74 U/L (45-117); Anion Gap 9 (5-15); BUN 20 mg/dL (7-18); BUN/Creat Ratio 22.2 RATIO (10-20); Calcium,Total 9.4 mg/dL (8.5-10.1); Chloride 105 mmol/L (98-107); Cholesterol 227 mg/dL (200); EST Glomerular Filtration Rate 87 mL/min (>60); Est Glom Filt Rate - Afr Amer 105 mL/min (>60); Globulin 3.1 g/dL (2.2-4.2); Glucose 93 mg/dL (74-106); High Density Lipoprotein 74 mg/dL; Potassium 4.2 mmol/L (3.5-5.1); Protein, Total 7.1 g/dL (6.4-8.2); Sodium Level 140 mmol/L (136-145); Triglycerides 88 mg/dL; Very Low Density Lipoprotein 18 mg/dL (5-40); Vitamin D,25 Hydroxy 106.3 ng/mL
== END | disposition home or self-care (01) ==
LOC: LAB 07:07
PROVIDERS: PCP Internal Medicine; Referring Provider Internal Medicine; Visit Provider Internal Medicine
DX: I10 Essential (primary) hypertension (principal); E78.5 Hyperlipidemia, unspecified; F41.9 Anxiety disorder, unspecified
CPT/HCPCS: 36415; 80053; 80061; 82306; 85025

== ENCOUNTER → 2022-11-29 | Outpatient (CLI) | payer SELFPAY ==
--- NOTE | 2022-11-29 12:45 | CT_ITS ---
STUDY: CARDIAC CALCIUM SCORING - CT CHEST REASON FOR EXAM: Male, 77 years old. CARDIAC RISK RADIATION DOSAGE (If Supplied By Facility): CTDIvol = ( 12.19 ) mGy, DLP = ( 268.17 ) mGycm TECHNIQUE: Axial non-enhanced images were acquired through the heart for the sole purpose of measuring coronary artery calcium. Individualized dose optimization techniques were used for this CT. COMPARISON: None. FINDINGS: Visualized surrounding anatomy: Normal. Left Main Coronary Artery: Atherosclerotic calcification. Left Anterior Descending Artery: Atherosclerotic calcification Left Circumflex Artery: Atherosclerotic calcification Right Coronary Artery: Atherosclerotic calcification. Other: Coronary calcium volume 13.35 cu mm. Total Calcium Score: 1804 CT/Limited Chest CT Cardiac Only IMPRESSION: A Calcium Score of 1804 places the patient in the approximate 75th and 90th percentile, based on the [employer] data calculator. Please go to: [email or web address] , for a description of the calculator. Electronically Signed: Hany Yarbrough MD, LAKISHA at 16:36 EDT ,
[2022-11-29 12:53] VITALS: BP 133/72; PULSE 55; RESP 18; O2SAT 100; BMI 22.3
--- NOTE | 2022-11-29 15:32 | CA.SCORE ---
Calcium Scoring Date of Study:: 11/29/22 Coronary Calcium Scoring: High-resolution Computed Tomographic imaging of the chest was performed on [11/29/22 ], with particular attention paid to the coronary arteries. Images from the examination were analyzed for the presence and extent of coronary artery calcification , using coronary calcium quantification software. The patient tolerated the procedure well and there were no complications. The results of the coronary calcification analysis are provided below. Findings Coronary Artery Left Main (LM): 474 Left Anterior Descending (LAD): 405 Left Circumflex (LCX): 703 Right Coronary Artery (RCA): 222 Total Agatston Score: 1,804 Percentile Rankinth-90th Calcium Scoring Interpretation: Different methods to categorize the overall amount of coronary plaque. Overall amount CAC SIS Visual of coronary plaque P1 Mild -100 <2 1-2 vessels with mild amount of plaque P2 Moderate 101-300 3-4 1-2 vessels with moderate amount, 3 vessels with mild amount of plaque P3 Severe 301-999 5-7 3 vessels with moderate amount, 1 vessel with severe amount of plaque P4 Extensive >1000 >8 2-3 vessels with severe amount of plaque Calcium Score: Extensive: 2-3 vessels w/severe amount of plaque Conclusion: The above is suggestive of a significant amount of plaque involving 2-3 vessels.
== END | disposition home or self-care (01) ==
PROVIDERS: PCP Internal Medicine; Visit Provider Internal Medicine Cardiovascular Disease
DX: E78.00 Pure hypercholesterolemia, unspecified (principal)
CPT/HCPCS: 75571; 76380

== ENCOUNTER 2022-12-03 09:34 | Day surgery (SDC) | payer MEDICARE, SELFPAY ==
[2022-11-30 12:08] LABS: Absolute Lymphocyte Count 1.52 X10^3/uL (0.83-4.51); Absolute Neutrophil Count 4.5 X10^3/uL (2.0-7.7); Basophil# 0.05 X10^3/uL; Basophil% 0.7 % (0-1); Eosinophil# 0.32 X10^3/uL; Eosinophils% 4.6 % (0-5); Hematocrit 44.7 % (40-54); Hemoglobin 15.8 g/dL (13.0-16.5); Lymphocyte # 1.52 X10^3/ul (0.83-4.51); Lymphocyte % 21.8 % (19-41); Mean Corp Hgb Conc 35.3 g/dL (32-36); Mean Corpuscular Hgb 35.2 pg (27.0-32.0); Mean Corpuscular Volume 99.6 fL (80-94); Mean Platelet Vol. 10.9 fl (6.2-12.0); Monocyte# 0.52 X10^3/uL; Monocyte% 7.5 % (0-10); NRBC Flagged by Analyzer 0 % (0-5); Neutrophil # 4.54 X10^3/uL (2.7-7.7); Neutrophil % 65.1 % (47-70); Platelet Count 200 K/mm3 (150-450); RBC Distribution Width CV 12.4 % (11.6-14.6); RBC Distribution Width SD 45.4 fl (35.1-43.9); Red Blood Count 4.49 M/mm3 (4.6-6.2)
[2022-11-30 12:45] LABS: Anion Gap 6 (5-15); BUN 25 mg/dL (7-18); BUN/Creat Ratio 27.5 RATIO (10-20); Calcium,Total 9.4 mg/dL (8.5-10.1); Chloride 106 mmol/L (98-107); Creatinine, Serum 0.91 mg/dL (0.70-1.30); EST Glomerular Filtration Rate 86 mL/min (>60); Est Glom Filt Rate - Afr Amer 104 mL/min (>60); Glucose 96 mg/dL (74-106); Potassium 4.4 mmol/L (3.5-5.1); Sodium Level 138 mmol/L (136-145)
--- NOTE | 2022-11-30 16:00 | HP.PCM_ITS ---
History and Physical BRIANNA COLEMAN, is a 77 M who presents today for a cardiovascular outpatient follow-up.? He is a gentleman with no obstructive coronary disease, hypertension, hyperlipidemia, and probable raynauds phenomenon.? He returns for follow-up visit.? You do remember he underwent stress echocardiographic evaluation in 2018 with no evidence of ischemia.? He also underwent stress echocardiogram on 05/05/2021 that was negative for ischemia at a high workload. He underwent a coronary calcium score, calcium score was 1804. With his elevated calcium score would like to pursue a diagnostic heart catheterization. He denies chest, arm, jaw, or neck discomfort. He denies symptoms of shortness of breath with exertion, shortness of breath at rest, orthopnea, PND, sudden weight gain, or bilateral lower extremity edema. He denies chronic cough. He denies palpitations, lightheadedness, dizziness, near syncope, or syncopal episodes. He denies claudication issues. He denies fever or chills. He denies blood in urine, blood in stool, or epistaxis. He denies myalgia. He denies unexplainable fatigue. His exercise tolerance is stable.? Me that his lipid p rofile was excellent and he is due to have one with you soon.? His statin was increased. PFSH Medical History? Alcohol use Arthritis Back pain Onofre esophagus Cardiology follow-up encounter Chronic renal insufficiency Essential (primary) hypertension Gastric reflux Gastritis GERD (gastroesophageal reflux disease) Hepatitis High cholesterol History of echocardiogram History of edema History of stress test Hx of colonic polyp Hyperlipidemia Mitral valve annular calcification Non-smoker Palpitations Raynaud disease Wears glasses Surgical History? History of hydrocelectomy Hx of appendectomy Hx of colonoscopy Hx of foot surgery Hx of hernia repair Hx of transurethral resection of prostate Family History? Father CancerMother?? ,? age 72 CAD (coronary artery disease) Hypertension Social History? Smoking Status:? Never smoker alcohol intake:? current alcohol intake frequency: 0-2 drinks per day substance use type:? does not use caffeine:? Yes Type: coffee Number of servings: 4 ROS Const Const: Negative for fatigue, weakness, headache(s), frequent falls, difficulty sleeping or excessive sweating Eyes Eyes: Negative for loss of peripheral vision, transient loss of vision, blurry vision, double vision or tunnel vision ENT ENT: Negative for headache(s), dizziness, Nosebleed/epistaxis or balance problems Cardio Chest Pain: No Palpitations: No Edema: Bilateral (mild, resolves by morning) Muscle aches with walking: None Resp Respiratory: Negative for SOB with activity, SOB at rest, SOB orthopnea\SOB lying down, Cough or paroxysmal nocturnal dyspnea GI GI: Negative nausea, vomiting, heartburn or black,tarry stools : Negative for hematuria Musc Musc: Positive for joint pain; Negative for muscle aches/ myalgia, muscle weakness or balance problems Skin Skin: Negative non-healing lesions, rash or unusual bruising Neuro Neuro: Negative for dizziness, lightheadedness, near syncope, syncope, frequent falls, headache(s), weakness, blurry vision, double vision or lack of coordination Tang Hematologic/Lymphatic: Negative for easy bleeding or easy bruising Endo Endo: Negative for fatigue, excessive sweating or increased thirst/drinking Psych Psych: Negative for anxiety or depression Allergy Allergy/Immunology: Negative for hives and Negative for rash Cardiology Exam Const Appearance: cooperative, healthy appearing, no acute distress, well developed and well groomed Nutritional Appearance: average body habitus and well nourished Orientation: alert, awake and oriented x3 Head Head: normal to inspection, normocephalic and atraumatic Ears: hearing grossly normal bilaterally and external ears normal Nose: external nose normal, nares normal, nasal mucous membranes and turbinates normal, septum normal and no nasal discharge Face and Sinus: face symmetric Mouth: oral mucosae normal, tongue normal, oropharynx normal and moist mucous membranes Teeth and gingiva: dentition normal Throat: posterior oropharynx normal, tonsils normal and uvula midline Eyes General: appearance normal, both eyes and all related structures Eyelids: eyelids normal Conjunctivae: conjunctivae normal Pupils: PERRL, normal by confrontation and accommodation normal EOM: EOM intact bilaterally Neck Neck: normal visual inspection, trachea midline and no JVD JVD: +5 Carotids: normal carotid upstroke and bounding pulses Chest Chest inspection: normal inspection of the chest, symmetric chest movement and normal respiratory effort Auscultation: Bilateral: Clear to Auscultation Cardio Palpation: normal PMI Rate: regular rate Rhythm: regular rhythm Heart sounds: S1 normal, S2 normal and normal, physiologic split S2; Negative rub, gallop or murmur GI GI: normal to inspection, soft, no hepatosplenomegaly and bowel sounds present Neuro General: patient alert, patient awake, patient oriented x3, gait normal, moves all extremities and no focal sensory deficit Skin Skin: no rashes or lesions noted Extremities Pulses: Normal: Right Femoral Pulse, Left Femoral Pulse, Right Dorsalis Pedis Pulse, Left Dorsalis Pedis Pulse, Right Posterior Tibial Pulse, Left Posterior Tibial Pulse, Right Radial Pulse and Left Radial Pulse Lower Extremity Edema: None: Bilateral Musculoskel Musculoskeletal: No joint tenderness Psych Psychological: normal affect Supplemental Info Supplemental Information Echocardiogram from 05/01/2021: Interpretation Summary Normal LV size. Left ventricular systolic function is normal. The estimated ejection fraction is 60 %. Stage 1 diastolic dysfunction. Mild (1+) eccentric mitral valve insufficiency. Mild mitral valve prolapse, posterior leaflet Stress test from [facility] 05/05/2021: Conclusion Stress test with no EKG criteria for ischemia at a high workload. Excellent functional aerobic capacity. No arrhythmias noted. Assessment & Plan Assessment/Plan (1) Abnormal cardiac CT angiography: (2) Essential (primary) hypertension: (3) Hyperlipidemia: QUALIFIERS: Hyperlipidemia type: pure hypercholesterolemia Qualified Code(s): E78.00 - Pure hypercholesterolemia, unspecified; E78.0 - Pure hypercholesterolemia PLAN: Plan Patient will proceed with a diagnostic heart catheterization for his elevated coronary calcium score. He will continue with his current blood pressure medications and current dose of statin at this time.
[2022-12-03 06:55] VITALS: BMI 21.9
--- NOTE | 2022-12-03 12:16 | CL.D_ITS ---
Patient Name: BRIANNA COLEMAN Study Date: 12/03/2022 Performing: Petros Valdez MD Ht: 73 inches 185.42 cm : 1945 Wt: 166.01 lbs 75.3 kg Age: 77 Gender: male BSA: 1.99 PROCEDURE(S) PERFORMED DC01-(54533)LHC/COR/LV IC10-([id number])FFR, CORONARY OR GRAFT, INITIAL VESSEL IC11-([id number])FFR, CORONARY OR GRAFT, EACH ADD'L VESSEL CLINICAL PROFILE AND INDICATIONS Indications: Suspected CAD Heart Failure: None Stress/Imaging Coronary Calcium Score: Yes Calcium Score: 1800Calcium Score: 1800 CAD Presentations: No Sxs, no angina. CONCLUSIONS Non obstructive coronary arteries RECOMMENDATIONS Aggressive medical therapy, increase lipid-lowering DESCRIPTION OF PROCEDURE The patient arrived to the procedure lab. The risks and benefits of the procedure as well as a full description of our services here and current unavailability of surgical backup were fully explained to the patient and/or their significant other prior to the catheterization. The Timeout was completed, verifying the correct patient and procedure. The patient's procedural site was prepped and draped in the usual fashion. Local anesthetic was given subcutaneously to right radial region with Lidocaine 2%. Using a modified Seldinger technique, arterial access was obtained via the right radial artery, a 6Fr sheath was inserted. Right Coronary Artery selective angiography was then performed in multiple views using a 5 Fr. 4.0 [place] catheter. Left Coronary Artery selective angiography was performed in multiple views using a 5 Fr. 4.0 [place] catheter. Left Ventriculography was performed in ARAUZ projection using a 5 Fr. [place] catheter. LV to AO pullback pressures were then recorded.The arterial sheath was pulled and a TR Band was applied for hemostasis CORONARY ANGIOGRAPHY DOMINANCE: Right Dominant LEFT HEART ASSESSMENT Left Ventricular Ejection Fraction: by LV Gram 65 % Normal Left Ventricular systolic function iFR performed on the LAD as well as the ramus intermedius and both were not significant LEFT MAIN: Mild calcification, Non-obstructive LEFT ANTERIOR DESCENDING ARTERY: Mild to moderately calcified with mid 40 to 50% stenotic lesion noted. CIRCUMFLEX ARTERY: Mild luminal irregularities less than 30% RAMUS: Mild proximal ectasia and mid 40 to 50% stenosis noted RIGHT CORONARY ARTERY: No significant disease noted VALVE FINDINGS: Mitral annular calcification noted COMPLICATIONS No Complications PROCEDURE MEDICATIONS Fentanyl 50 mcg IV Versed 1 mg IV Versed 1 mg IV Versed 1 mg IV Oxygen: 2 L/min via nasal cannula Heparin given IA 12/03/2022 11:23:37 Verapamil 2.5mg, Ntg 100mcgs, 3000 units of Heparin given IA 12/03/2022 11:23:37 SUMMARY OF HEMODYNAMIC DATA Time AIR REST ECG 10:10:57 Art 136/75 (97) 11:25:02 AO 147/79 (104) SA 11:32:28 LV 123/4, 7 11:40:33 LV 118/2, 6 11:40:39 LV 116/4, 6 11:41:07 LV 115/3, 7 11:41:13 LVp 115/6, 7 11:41:17 AOp 0/-12 (7) 11:41:22 Signed By Petros Valdez MD On 12/03/2022 12:15:16 Petros Valdez MD
--- NOTE | 2022-12-03 12:27 | PCM.OPRPT ---
Report of Operation Date of Procedure: 12/03/22 Pre-Operative Diagnosis: CAD Post-Operative Diagnosis: CAD Surgery/Procedure Performed:: iFR of LAD and Ramus Description of Surgical Findings:: iFR in the Ramus = 0.99 iFR in the LAD = 0.91 These findings are consistent with stenoses that can be treated medically at this time. Surgeon: Sd Kirk Estimated Blood Loss (mL): 5ml Description of Procedure: The left main was engaged with a JL 3.5 guide catheter and iFR was measured in the LAD and Ramus. Patient tolerated the procedure well and there were no complications. Complications None
== END 2022-12-03 14:00 | disposition home or self-care (01) ==
LOC: CLSP 09:35
PROVIDERS: PCP Internal Medicine; Referring Provider Internal Medicine Cardiovascular Disease; Visit Provider Internal Medicine Cardiovascular Disease
DX: I34.81 Nonrheumatic mitral (valve) annulus calcification (principal); I25.10 Atherosclerotic heart disease of native coronary artery without angina pectoris; I12.9 Hypertensive chronic kidney disease with stage 1 through stage 4 chronic kidney disease, or unspecified chronic kidney disease; N18.9 Chronic kidney disease, unspecified; E78.00 Pure hypercholesterolemia, unspecified; I73.00 Raynaud's syndrome without gangrene
CPT/HCPCS: 36415; 80048; 85025; 93458; 93571; 93572; 99152; 99153; J7040; Q9967; C1769; C1887; C1894

== ENCOUNTER 2023-02-13 06:27 | Day surgery (SDC) | payer MEDICARE, SELFPAY ==
--- NOTE | 2023-02-13 | IMM_PTH ---
PATIENT: BRIANNA COLEMAN LOC: EN U#:[id number] AGE/SX: 77/M ROOM: RE02/13/[address]: Dr. David Parra DO : 1945 BED: DIS: 02/13/2023 SPEC #: [id number] RECD: 02/14/23 12:46 STATUS: AUBREY REQ #: [id number] ANAIS: 02/13/23 00:[address]: David Parra DEPT: IMMUNOHISTOCHEMISTRY RECD BY: Stephanie Winchester ENTERED: 02/14/23 12:47 SP TYPE: IMMUNO OTHR DR: Dr. Francheska Alonzo DO Tissues: Esophageal mucous membrane Procedures: P53 (initial) KI-67 (add) PHYSICIAN & INSTITUTION [place] [phone] SPECIMEN INFORMATION: Tissue Source: Distal esophagus Clinical Info: Onofre?s esophagus Specimen Number: [id number] CPT code: 53267, 49100 METHODOLOGY: Deparaffinized sections of prefer/formalin-fixed tissue or PAP/DQ stained slides are incubated with monoclonal/polyclonal antibodies/oligonucleotide probes. Localization is made via biotin free immunoperoxidase method. Appropriate controls are performed and reacted as expected. Results on target cell population are indicated in the following table: RESULTS: ANTIBODY / CLONE RESULT P53 (DO-7) negative Ki-67 (30-9) positive, very low These tests were developed and their performance characteristics determined by [facility]. They may not have been cleared or approved by the U.S. Food and Drug Administration. The FDA has determined that such clearance or approval is not necessary. The above immunohistochemical/dualISH markers are ordered and reviewed by the Pathologist. INTERPRETATION: Distal esophagus, biopsy: Negative for dysplasia. JASPREET:sanjay 02/15/2023
[2023-02-13 06:48] VITALS: BP 122/81; PULSE 56; RESP 18; TEMP 36.5; BMI 23.9
[2023-02-13] MEDS: Lactated Ringers 1,000 ML 15 ML IV (07:07)
--- NOTE | 2023-02-13 07:30 | EGD_PTH ---
PATIENT: BRIANNA COLEMAN LOC: EN U#:[id number] AGE/SX: 77/M ROOM: RE02/13/[address]: Dr. David Parra DO : 1945 BED: DIS: 02/13/2023 SPEC #: [id number] RECD: 02/13/23 10:15 STATUS: AUBREY REDarien #: [id number] ANAIS: 02/13/23 07:[address]: David Parra DEPT: SURGICAL PATHOLOGY RECD BY: Beatriz Cabrera ENTERED: 02/13/23 11:02 SP TYPE: EGD BIOPSY OT DR: Dr. Francheska Alonzo DO Tissues: Esophagus, NOS Procedures: Special Stain Group II Surgery Specimen Level IV Alcian Blue/PAS (control) HEADER OPERATION: EGD ([facility] [place]) with biopsies PRE-OP DIAGNOSIS: Onofre?s esophagus TISSUE SUBMITTED: Distal esophagus biopsy MICROSCOPIC DIAGNOSIS Distal esophagus, biopsy: Fragments of gastroesophageal mucosa with focal intestinal metaplasia (goblet cell metaplasia), consistent with Onofre's esophagus. Chronic inflammation. Negative for dysplasia. See comment. JASPREET:sanjay 02/14/2023 COMMENT Immunohistochemistry ([id number]) for P53 and Ki-67 will be performed and results will be reported separately. Alcian blue/PAS stain with matched control is used in the evaluation of the specimen. MICROSCOPIC DESCRIPTION Slides are reviewed. GROSS DESCRIPTION Received in fixative is one container labeled with the patient's name and designated distal esophagus biopsy. The specimen consists of multiple irregular fragments of light rick soft tissue that in aggregate measure 0.9 x 0.3 x 0.1 cm. The specimen is totally submitted in one cassette. / JASPREET:sanjay 02/13/2023 TC:5 CPT: 99332, 64542
--- NOTE | 2023-02-13 07:53 | PCM.HP.BLA ---
History and Physical Date of Admission: 02/13/23 77 M who presents to the office today for f/u Onofre's, GERD, bloating. Last year he reported bloating had resolved with addition of probiotic. No longer taking probiotic. Gets bloating one hour after eating, better if he avoids high FODMAP foods. Takes Dexilant qam and famotidine 40 mg qpm, acid reflux is pretty well controlled (except if he consumes chocolate or red wine). Jung established with this clinic 3.09.30 for screening colonoscopy evaluation. His age puts him past open access scheduling. His father had colon cancer in his early 60?s. Hx of iron deficiency. EGD and colonoscopy performed 01.10.22. 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 H.Pylori negative. Colonoscopy found 5mm polyp (no pathology on bx) in descending colon; diverticulosis in RS, sigmoid and descending colons; impaction of appendiceal orifice with hard stool, most of this was removed, concern for future appendicitis. ROS Const Constitutional: No fatigue ENT ENT: No difficulty swallowing Gastro GI: Positive for bloating, heartburn and excessive flatus; No abdominal pain, belching, change in bowel habits, change in stool character, coffee ground emesis, constipation, cramping, diarrhea, difficulty swallowing, feeling full early, incontinent of stools, Vomiting blood/hematemesis, Blood in stool, loose stools, Black,tarry stools, nausea/dyspepsia, pain with swallowing, vomiting or other Musc Musculoskeletal: Positive for joint pain, back pain, stiffness and Arthritis Skin Skin: No yellowing of the eye or itchy eyes Psych Psychiatric: No anxiety and No depression Endo Endocrine: No fatigue Aller/Imm Allergy/Immunologic: No itchy eyes Tang/Lymp Hematologic/Lymphatic: No easy bleeding or easy bruising Exam Const General: cooperative, healthy appearing and comfortable Nutritional Appearance: average body habitus Orientation: alert, awake and oriented x3 Quality Reporting Tobacco Screening ([facility]) Smoking Status: Never smoker Assessment and Plan Assessment and Plan (1) Onofre esophagus: ?Status:?Chronic ?Plan: Schedule EGD to reeval Onofre's Continue dexilant and famotidine I have examined the patient and the H&P has been reviewed. There are no clinical changes since date of exam.
--- NOTE | 2023-02-13 08:11 | OP.CCLET_ITS ---
02/13/2023 Francheska Alonzo Re : Upper GI endoscopy procedure for Jung Alonzo This procedure was performed on Monday, February 13, 2023. My impressions and recommendations are as follows: Impressions : - Esophageal mucosal changes secondary to established short-segment Onofre's disease. Biopsied. - Hiatal hernia. - No gross lesions in the second portion of the duodenum. Recommendations : - Discharge patient to home. - Resume previous diet. - Continue present medications. - Await pathology results. - Repeat upper endoscopy for surveillance based on pathology results. My findings are described in the full procedure note, which is enclosed. If I can be of further assistance, please feel free to contact me at . Sincerely, David Parra, 02/13/2023 8:10:49 AM This report has been signed electronically.
--- NOTE | 2023-02-13 08:11 | OP.EGD_ITS ---
Patient Name: Jung Aburto Procedure Date: 02/13/2023 7:50 AM Date of : 1945 Age: 77 Procedure: Upper GI endoscopy Indications: Follow-up of Onofre's esophagus Providers: David Parra DO Referring MD: David Parra DO Medicines: Monitored Anesthesia Care Patient Profile: This is a 77 year old male. Refer to note in patient chart for documentation of history and physical. Patient has symptoms of chronic heartburn. Complications: No immediate complications. Procedure: Pre-Anesthesia Assessment: - Prior to the procedure, a History and Physical was performed, and patient medications and allergies were reviewed. The patient is competent. The risks and benefits of the procedure and the sedation options and risks were discussed with the patient. All questions were answered and informed consent was obtained. Patient identification and proposed procedure were verified by the physician in the pre-procedure area. Mental Status Examination: alert and oriented. Airway Examination: normal oropharyngeal airway and neck mobility. Respiratory Examination: clear to auscultation. CV Examination: normal. Prophylactic Antibiotics: The patient does not require prophylactic antibiotics. Prior Anticoagulants: The patient has taken no previous anticoagulant or antiplatelet agents. After reviewing the risks and benefits, the patient was deemed in satisfactory condition to undergo the procedure. The anesthesia plan was to use monitored anesthesia care (MAC). Immediately prior to administration of medications, the patient was re-assessed for adequacy to receive sedatives. The heart rate, respiratory rate, oxygen saturations, blood pressure, adequacy of pulmonary ventilation, and response to care were monitored throughout the procedure. The physical status of the patient was re-assessed after the procedure. After obtaining informed consent, the endoscope was passed under direct vision. Throughout the procedure, the patient's blood pressure, pulse, and oxygen saturations were monitored continuously. The gastroscope was introduced through the mouth, and advanced to the second part of duodenum. The upper GI endoscopy was accomplished without difficulty. The patient tolerated the procedure well. Scope In: 8:03:07 AM Scope Out: 8:05:53 AM Total Procedure Duration Time 0 hours 2 minutes 46 seconds Findings: There were esophageal mucosal changes secondary to established short-segment Onofre's disease present in the lower third of the esophagus. The maximum longitudinal extent of these mucosal changes was 1 cm in length. Mucosa was biopsied with a cold forceps for histology in a targeted manner at intervals of 1 cm in the lower third of the esophagus. One specimen bottle was sent to pathology. Verification of patient identification for the specimen was done. Estimated blood loss was minimal. A hiatal hernia was present. No other significant abnormalities were identified in a careful examination of the stomach. No gross lesions were noted in the second portion of the duodenum. Impression: - Esophageal mucosal changes secondary to established short-segment Onofre's disease. Biopsied. - Hiatal hernia. - No gross lesions in the second portion of the duodenum. Recommendation: - Discharge patient to home. - Resume previous diet. - Continue present medications. - Await pathology results. - Repeat upper endoscopy for surveillance based on pathology results. Procedure Code(s): --- Professional --- 08204, Esophagogastroduodenoscopy, flexible, transoral; with biopsy, single or multiple CPT copyright 2017 [employer]. All rights reserved. The codes documented in this report are preliminary and upon digital sales assistant review may be revised to meet current compliance requirements. David Parra DO 02/13/2023 8:10:49 AM This report has been signed electronically. Number of Addenda: 0 Note Initiated On: 02/13/2023 7:50 AM
[2023-02-13 08:13] VITALS: BP 122/81; BP 124/79; PULSE 57; RESP 16; TEMP 36.9; O2SAT 98
[2023-02-13 08:18] VITALS: BP 117/75; BP 122/81; PULSE 59; RESP 16; O2SAT 98
[2023-02-13 08:23] VITALS: BP 122/81; BP 125/80; PULSE 59; RESP 16; O2SAT 100
[2023-02-13 08:28] VITALS: BP 122/81; BP 135/86; PULSE 54; RESP 16; TEMP 36.4; O2SAT 99
[2023-02-13 08:45] VITALS: BP 122/81
== END 2023-02-13 09:06 | disposition home or self-care (01) ==
LOC: EN 06:29 → AC 06:29
PROVIDERS: PCP Internal Medicine; Referring Provider Internal Medicine; Visit Provider Internal Medicine Gastroenterology
PROC: 0DJ08ZZ Inspection of Upper Intestinal Tract, Via Natural or Artificial Opening Endoscopic (ICD-10-PCS; CPT 43235; principal; 2023-02-13 07:25)
DX: K22.70 Barrett's esophagus without dysplasia (principal); K44.9 Diaphragmatic hernia without obstruction or gangrene; K21.00 Gastro-esophageal reflux disease with esophagitis, without bleeding; Z79.899 Other long term (current) drug therapy; I12.9 Hypertensive chronic kidney disease with stage 1 through stage 4 chronic kidney disease, or unspecified chronic kidney disease; E78.00 Pure hypercholesterolemia, unspecified; N18.9 Chronic kidney disease, unspecified; Z87.19 Personal history of other diseases of the digestive system
CPT/HCPCS: 43239; 88305; 88313; 88341; 88342; J7120; J2405

== ENCOUNTER → 2023-02-22 | Outpatient (CLI) | payer MEDICARE, SELFPAY ==
[2023-02-22 06:45] LABS: Absolute Neutrophil Count 3.4 X10^3/uL (2.0-7.7); Basophil# 0.05 X10^3/uL; Basophil% 0.9 % (0-1); Eosinophil# 0.38 X10^3/uL; Eosinophils% 6.7 % (0-5); Hematocrit 45.4 % (40-54); Hemoglobin 15.9 g/dL (13.0-16.5); Lymphocyte % 24.6 % (19-41); Mean Corpuscular Hgb 34.8 pg (27.0-32.0); Mean Corpuscular Volume 99.3 fL (80-94); Mean Platelet Vol. 11.1 fl (6.2-12.0); Monocyte# 0.49 X10^3/uL; Monocyte% 8.6 % (0-10); NRBC Flagged by Analyzer 0 % (0-5); Neutrophil # 3.35 X10^3/uL (2.7-7.7); Platelet Count 189 K/mm3 (150-450); RBC Distribution Width CV 12.2 % (11.6-14.6); RBC Distribution Width SD 44.3 fl (35.1-43.9); Red Blood Count 4.57 M/mm3 (4.6-6.2); White Blood Count 5.7 K/mm3 (4.4-11.0)
[2023-02-22 07:20] LABS: ALB/GLOB Ratio 1.3 RATIO (0.9-2.4); AST(SGOT) 22 U/L (15-37); Alanine Aminotransfer ALT/SGPT 27 U/L (16-61); Alkaline Phosphatase 83 U/L (45-117); Anion Gap 9 (5-15); BUN 21 mg/dL (7-18); BUN/Creat Ratio 23.8 RATIO (10-20); Calcium,Total 9.3 mg/dL (8.5-10.1); Chloride 106 mmol/L (98-107); Cholesterol 205 mg/dL (200); Creatinine, Serum 0.88 mg/dL (0.70-1.30); EST Glomerular Filtration Rate 89 mL/min (>60); Est Glom Filt Rate - Afr Amer 107 mL/min (>60); Globulin 3.1 g/dL (2.2-4.2); Glucose 88 mg/dL (74-106); High Density Lipoprotein 75 mg/dL; PSA,Total- Diagnostic 1.68 ng/mL (0.0-4.0); Potassium 4.5 mmol/L (3.5-5.1); Protein, Total 7.1 g/dL (6.4-8.2); Sodium Level 140 mmol/L (136-145); Triglycerides 112 mg/dL; Very Low Density Lipoprotein 22 mg/dL (5-40)
== END | disposition home or self-care (01) ==
LOC: LAB 06:16
PROVIDERS: PCP Internal Medicine; Referring Provider Internal Medicine; Visit Provider Internal Medicine
DX: N40.0 Benign prostatic hyperplasia without lower urinary tract symptoms (principal); E67.3 Hypervitaminosis D; I10 Essential (primary) hypertension; E78.5 Hyperlipidemia, unspecified
CPT/HCPCS: 36415; 80053; 80061; 82306; 84153; 85025

== ENCOUNTER → 2023-05-29 | Outpatient (CLI) | payer MEDICARE, SELFPAY ==
[2023-05-29 07:51] LABS: Erythrocyte Sedimentation Rate < 1 mm/hr (0-20)
[2023-05-29 07:52] LABS: Absolute Lymphocyte Count 1.36 X10^3/uL (0.83-4.51); Absolute Neutrophil Count 3.3 X10^3/uL (2.0-7.7); Basophil# 0.05 X10^3/uL; Basophil% 0.9 % (0-1); Eosinophil# 0.44 X10^3/uL; Eosinophils% 7.8 % (0-5); Hemoglobin 15.4 g/dL (13.0-16.5); Lymphocyte # 1.36 X10^3/ul (0.83-4.51); Lymphocyte % 24.2 % (19-41); Mean Corp Hgb Conc 34.2 g/dL (32-36); Mean Corpuscular Hgb 34.1 pg (27.0-32.0); Mean Corpuscular Volume 99.8 fL (80-94); Mean Platelet Vol. 11.7 fl (6.2-12.0); Monocyte# 0.47 X10^3/uL; Monocyte% 8.3 % (0-10); NRBC Flagged by Analyzer 0 % (0-5); Neutrophil % 58.6 % (47-70); Platelet Count 178 K/mm3 (150-450); RBC Distribution Width CV 12.4 % (11.6-14.6); RBC Distribution Width SD 45.7 fl (35.1-43.9); Red Blood Count 4.51 M/mm3 (4.6-6.2); White Blood Count 5.6 K/mm3 (4.4-11.0)
[2023-05-29 08:25] LABS: ALB/GLOB Ratio 1.4 RATIO (0.9-2.4); AST(SGOT) 20 U/L (15-37); Alanine Aminotransfer ALT/SGPT 31 U/L (16-61); Albumin, Serum 4.2 g/dL (3.2-5.0); Alkaline Phosphatase 82 U/L (45-117); Anion Gap 4 (5-15); BUN 18 mg/dL (7-18); BUN/Creat Ratio 22.7 RATIO (10-20); CRP < 2.90 mg/L (0.0-3.0); Calcium,Total 9.2 mg/dL (8.5-10.1); Chloride 108 mmol/L (98-107); Cholesterol 195 mg/dL (200); Creatinine, Serum 0.79 mg/dL (0.70-1.30); EST Glomerular Filtration Rate 101 mL/min (>60); Est Glom Filt Rate - Afr Amer 122 mL/min (>60); Globulin 2.9 g/dL (2.2-4.2); Glucose 91 mg/dL (74-106); High Density Lipoprotein 80 mg/dL; Potassium 4.1 mmol/L (3.5-5.1); Protein, Total 7.1 g/dL (6.4-8.2); Rheumatoid Factor < 10.0 IU/mL (<15); Sodium Level 139 mmol/L (136-145); Triglycerides 92 mg/dL; Very Low Density Lipoprotein 18 mg/dL (5-40)
[2023-05-30 12:09] LABS: ANTINUCLEAR ANTIBODIES DIRECT Negative (Negative)
== END | disposition home or self-care (01) ==
LOC: LAB 06:49
PROVIDERS: PCP Internal Medicine; Referring Provider Internal Medicine; Visit Provider Internal Medicine
DX: M25.50 Pain in unspecified joint (principal); E78.5 Hyperlipidemia, unspecified; I10 Essential (primary) hypertension
CPT/HCPCS: 36415; 80053; 80061; 85025; 85652; 86038; 86140; 86431

== ENCOUNTER → 2023-06-14 | Outpatient (CLI) | payer MEDICARE, SELFPAY ==
--- NOTE | 2023-06-14 09:04 | VDLE_ITS ---
Reason For Study: Bilateral leg edema RIGHT LEFT GSV is normal. GSV is normal. CFV is compressible, spontaneous, phasic, CFV is compressible, spontaneous, phasic, competent and demonstrates normal competent, and demonstrates normal augmentation. augmentation. FV is compressible, spontaneous, phasic, FV is compressible, spontaneous, phasic, competent and demonstrates normal competent and demonstrates normal augmentation. augmentation. POP V is compressible, spontaneous, phasic, POP V is compressible, spontaneous, phasic, competent and demonstrates normal competent and demonstrates normal augmentation. augmentation. T/P Trunk is compressible. T/P Trunk is compressible. PTV is compressible. PTV is compressible. RT PerV is compressible. LT PerV is compressible. Procedure This is a venous duplex using B-mode, color flow and spectral Doppler. Exam performed in department. A preliminary report was called and/or faxed to Dr. Alonzo. VL/Venous Duplex US - [place] Extrem Interpretation Summary No evidence for acute deep venous thrombosis bilateral lower extremities with p atent and compressible bilateral great saphenous veins. Ordering Physician: Francheska Alonzo Referring Physician: Francheska Alonzo D.O. Performed By: Blanca Jones RVT
== END | disposition home or self-care (01) ==
LOC: CVS 09:02
PROVIDERS: PCP Internal Medicine; Referring Provider Internal Medicine; Visit Provider Internal Medicine
DX: R60.0 Localized edema (principal)
CPT/HCPCS: 93970

== ENCOUNTER → 2023-07-26 | Outpatient (CLI) | payer MEDICARE, SELFPAY ==
--- NOTE | 2023-07-26 09:00 | BI_ITS ---
MAMMOGRAPHY - BILATERAL DIAGNOSTIC REASON FOR EXAM: Male, 78 years old. Left breast lump. PERTINENT HISTORY: Prior right breast biopsy demonstrating gynecomastia. Mother with breast cancer. TECHNIQUE: Digital bilateral breast delia (3D mammographic acquisition) in the CC and MLO projections. 2-D mediolateral oblique (MLO) and craniocaudad (CC) views of both breasts were obtained. CAD: Full Field Digital Mammography with Computer Added Detection was performed. COMPARISON: Comparison is made with prior examination dated April 05, 2022. FINDINGS: Breast Composition: Bilateral retroareolar glandular tissue more prominent on the left side. Correlation with ultrasound is recommended for further evaluation. There are no dominant masses or suspicious calcifications. A tissue clip marker is seen in the right retroareolar region. No other significant abnormalities are identified. BI/DIAG MAMM W/CAD, BILAT IMPRESSION: Retroglandular tissue more prominent in the left breast as described. Correlation with ultrasound is recommended. ASSESSMENT CATEGORY: BIRADS Category 0: Incomplete. Need additional imaging evaluation. A letter regarding these results will be sent to the patient by the facility within 30 days. Approximately 10% of breast cancers are not detected by mammography. A normal mammogram should not delay biopsy of a clinically suspicious abnormality. Electronically Signed: Mo Angulo MD at 10:39 EST ,
--- NOTE | 2023-07-26 10:00 | US_ITS ---
STUDY: ULTRASOUND BREAST - LEFT REASON FOR EXAM: Male, 78 years old. Palpable lump left breast. TECHNIQUE: Axial and longitudinal images of the LEFT breast were performed with a high resolution ultrasound transducer. # OF IMAGES: 31 COMPARISON: Comparison is made with prior mammogram done earlier in day. FINDINGS: LEFT Breast: Hypodense tissue is seen in the retroareolar region of the left breast. This may represent gynecomastia although tissue diagnosis is recommended. US/Breast Limited Unilateral IMPRESSION: Hypodense tissue is seen in the retroareolar region of the left breast corresponding to the palpable lump. This may represent gynecomastia although tissue diagnosis is recommended. ASSESSMENT CATEGORY: BIRADS Category 4: Suspicious - Biopsy Should Be Considered. A letter regarding these results will be sent to the patient by the facility within 30 days. Electronically Signed: Mo Angulo MD at 12:14 EST ,
== END | disposition home or self-care (01) ==
PROVIDERS: PCP Internal Medicine; Referring Provider Internal Medicine; Visit Provider Internal Medicine
DX: R92.8 Other abnormal and inconclusive findings on diagnostic imaging of breast (principal); N63.20 Unspecified lump in the left breast, unspecified quadrant
CPT/HCPCS: 76642; 77062; 77066; G0279

== ENCOUNTER → 2023-08-06 | Outpatient (CLI) | payer MEDICARE, SELFPAY ==
--- NOTE | 2023-08-06 | BRBX_PTH ---
PATIENT: BRIANNA COLEMAN [facility]: [facility] U#:[id number] AGE/SX: 78/M ROOM: RE08/06/[address]: Dr. Durga Pierson MD : 1945 BED: DIS: 08/06/2023 SPEC #: [id number] RECD: 08/06/23 09:46 STATUS: AUBREY REDarien #: [id number] ANAIS: 08/06/23 00:[address]: Durga Pierson DEPT: SURGICAL PATHOLOGY RECD BY: Kuldeep Chong ENTERED: 08/06/23 09:46 SP TYPE: BREAST BX OTHR DR: Dr. Francheska Alonzo, DO Tissues: Left breast, NOS Procedures: Surgery Specimen Level IV HEADER OPERATION: Left breast biopsy PRE-OP DIAGNOSIS: Left breast mass TISSUE SUBMITTED: Left breast MICROSCOPIC DIAGNOSIS Left breast, core biopsy: Collagenized tissue with elastosis with features of gynecomastia. No evidence of malignancy. AM:sanjay 08/07/2023 MICROSCOPIC DESCRIPTION Slides are reviewed. GROSS DESCRIPTION Received in fixative is one container labeled with the patient's name and designated left breast. The specimen consists of multiple elongated fragments of light rick-yellow soft tissue that in aggregate measure 1.5 x 0.5 x 0.1 cm. The specimen is totally submitted in one cassette. / AM:sanjay 08/06/2023 TC:5 CPT: 55083
== END | disposition home or self-care (01) ==
LOC: LABSPEC 09:05
PROVIDERS: PCP Internal Medicine; Visit Provider Surgery
DX: N62 Hypertrophy of breast (principal)
CPT/HCPCS: 88305

== ENCOUNTER → 2023-12-25 | Outpatient (CLI) | payer MEDICARE, SELFPAY ==
[2023-12-25 07:08] LABS: Absolute Lymphocyte Count 1.33 X10^3/uL (0.83-4.51); Absolute Neutrophil Count 3.4 X10^3/uL (2.0-7.7); Basophil# 0.07 X10^3/uL; Basophil% 1.2 % (0-1); Eosinophil# 0.67 X10^3/uL; Eosinophils% 11.1 % (0-5); Hematocrit 43.7 % (40-54); Hemoglobin 15.2 g/dL (13.0-16.5); Lymphocyte # 1.33 X10^3/ul (0.83-4.51); Lymphocyte % 22.1 % (19-41); Mean Corp Hgb Conc 34.8 g/dL (32-36); Mean Corpuscular Hgb 34.2 pg (27.0-32.0); Mean Corpuscular Volume 98.4 fL (80-94); Mean Platelet Vol. 10.4 fl (6.2-12.0); Monocyte# 0.49 X10^3/uL; Monocyte% 8.1 % (0-10); NRBC Flagged by Analyzer 0 % (0-5); Neutrophil # 3.44 X10^3/uL (2.7-7.7); Platelet Count 195 K/mm3 (150-450); RBC Distribution Width CV 12.5 % (11.6-14.6); RBC Distribution Width SD 45.2 fl (35.1-43.9); Red Blood Count 4.44 M/mm3 (4.6-6.2)
[2023-12-25 07:56] LABS: ALB/GLOB Ratio 1.2 RATIO (0.9-2.4); AST(SGOT) 19 U/L (15-37); Alanine Aminotransfer ALT/SGPT 25 U/L (16-61); Alkaline Phosphatase 75 U/L (45-117); Anion Gap 2 (5-15); BUN 26 mg/dL (7-18); BUN/Creat Ratio 31.5 RATIO (10-20); Calcium,Total 8.9 mg/dL (8.5-10.1); Chloride 106 mmol/L (98-107); Cholesterol 198 mg/dL (200); Creatinine, Serum 0.82 mg/dL (0.70-1.30); EST Glomerular Filtration Rate 96 mL/min (>60); Est Glom Filt Rate - Afr Amer 116 mL/min (>60); Globulin 3.2 g/dL (2.2-4.2); Glucose 91 mg/dL (74-106); High Density Lipoprotein 75 mg/dL; Potassium 4.6 mmol/L (3.5-5.1); Protein, Total 7.2 g/dL (6.4-8.2); Sodium Level 137 mmol/L (136-145); Triglycerides 75 mg/dL; Very Low Density Lipoprotein 15 mg/dL (5-40)
== END | disposition home or self-care (01) ==
LOC: LAB 06:45
PROVIDERS: PCP Internal Medicine; Referring Provider Internal Medicine; Visit Provider Internal Medicine
DX: E78.5 Hyperlipidemia, unspecified (principal); I10 Essential (primary) hypertension; R10.9 Unspecified abdominal pain
CPT/HCPCS: 36415; 80053; 80061; 85025; 87086

== ENCOUNTER 2024-03-02 05:27 | Day surgery (SDC) | payer MEDICARE, SELFPAY ==
[2024-03-02] VITALS (8 sets, daily range): BP systolic 112–126; BP diastolic 72–74; PULSE 63–65; RESP 16; TEMP 37–37.2; O2SAT 96–100; BMI 24.0
--- NOTE | 2024-03-02 | IMM_PTH ---
PATIENT: BRIANNA COLEMAN LOC: EN U#:[id number] AGE/SX: 78/M ROOM: RE03/02/[address]: Dr. David Parra DO : 1945 BED: DIS: 03/02/2024 SPEC #: [id number] RECD: 03/03/24 12:15 STATUS: AUBREY REQ #: [id number] ANAIS: 03/02/24 00:[address]: David Parra DEPT: IMMUNOHISTOCHEMISTRY RECD BY: Aj Polanco ENTERED: 03/03/24 12:15 SP TYPE: IMMUNO OTHR DR: Dr. Francheska Alonzo DO Tissues: Esophagus, NOS Procedures: P53 (initial) KI-67 (add) PHYSICIAN & INSTITUTION [place] [id number] SPECIMEN INFORMATION: Tissue Source: Distal esophagus biopsy Clinical Info: Onofre's esophagus Specimen Number: [id number] CPT code: 25383, 22218 METHODOLOGY: Deparaffinized sections of prefer/formalin-fixed tissue or PAP/DQ stained slides are incubated with monoclonal/polyclonal antibodies/oligonucleotide probes. Localization is made via biotin free immunoperoxidase method. Appropriate controls are performed and reacted as expected. Results on target cell population are indicated in the following table: RESULTS: ANTIBODY / CLONE RESULT P53 (DO-7) positive, focal (wild type pattern) Ki-67 (30-9) positive, low These tests were developed and their performance characteristics determined by [facility]. They may not have been cleared or approved by the U.S. Food and Drug Administration. The FDA has determined that such clearance or approval is not necessary. The above immunohistochemical/dualISH markers are ordered and reviewed by the Pathologist. INTERPRETATION: Distal esophagus, biopsy: Negative for dysplasia. JASPREET/ 03/04/2024
[2024-03-02] MEDS: Lactated Ringers 1,000 ML 15 ML IV (05:55)
--- NOTE | 2024-03-02 06:30 | EGD_PTH ---
PATIENT: BRIANNA COLEMAN LOC: EN U#:[id number] AGE/SX: 78/M ROOM: RE03/02/[address]: Dr. David Parra DO : 1945 BED: DIS: 03/02/2024 SPEC #: [id number] RECD: 03/02/24 10:51 STATUS: AUBREY REQ #: [id number] ANAIS: 03/02/24 06:[address]: David Parra DEPT: SURGICAL PATHOLOGY RECD BY: Beatriz Cabrera ENTERED: 03/02/24 11:18 SP TYPE: EGD BIOPSY OTHR DR: Dr. Francheska Alonzo DO Tissues: Esophagus, NOS Procedures: Special Stain Group I Surgery Specimen Level IV Alcian Blue/PAS (control) HEADER OPERATION: EGD with biopsy PRE-OP DIAGNOSIS: Barretts esophagus TISSUE SUBMITTED: Distal esophagus biopsy MICROSCOPIC DIAGNOSIS Distal esophagus, biopsy: Fragments of gastroesophageal mucosa with focal intestinal metaplasia (goblet cell metaplasia), consistent with Onofre's esophagus. Chronic inflammation. Negative for dysplasia. See comment. [facility] 03/03/2024 COMMENT Immunohistochemistry (RF24-) for P53 and Ki-67 will be performed and results will be reported separately. Alcian blue/PAS stain with matched control is used in the evaluation of the specimen. MICROSCOPIC DESCRIPTION Slides are reviewed. GROSS DESCRIPTION Received in fixative is one container labeled with the patient's name and designated Distal esophagus biopsy. The specimen consists of multiple irregular fragments of light rick soft tissue that in aggregate measure 1.6 x 0.5 x 0.1 cm. The specimen is totally submitted in one cassette. [facility] 03/02/2024 TC:5 CPT:47440,50024
--- NOTE | 2024-03-02 06:32 | PRE.ANES_ITS ---
ASA Classification* ASA Classification ASA Classification: 2 Assessment & Plan Anesthesia* Anesthesia Assessment Anesthesia Assessment: Discussed sedation and/or anesthesia options, risks, benefits, and alternatives with patient/parents/legal guardian/POA. Questions invited. The patient/parents/legal guardian/POA seems to understand and agrees to proceed with anesthesia plan. Reviewed the physical assessment, medical history, allergy history and patient home medications list prior to surgery/procedure/anesthetic and documented any changes. Performed airway and anesthesia risk assessments. 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 When Was Last Pacemaker Check QUESTION #4 FULL TEXT: You/Your Family Experience fever (hyperthermia) with Anesthesia Last Oral Intake Last Oral intake: Last Oral Intake NPO since Meds taken in AM with sips of water? 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 Female No 02/25/24 15:05 HX of Motion Sickness No 02/25/24 15:05 HX of N/V After Surgery No 02/25/24 15:05 Non-Smoker Yes 02/25/24 15:05 Duration of Surgery greater No 02/25/24 15:05 than 60 minutes Number of Risk Factors 1 02/25/24 15:05 PONV Score Low Risk 02/25/24 15:05 Height & Weight Height & Weight: Anesthesia: Height & Weight Height 6 ft 03/02/24 05:53 Weight: 80.3 kg 03/02/24 05:53 Body Mass Index (BMI) 24.0 03/02/24 05:53 Respiratory Assessment Respiratory Assessment - 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 Has anyone observed you stop No 02/25/24 15:05 breathing during sleep? STOP Results Negative 02/25/24 15:05 QUESTION #5 FULL TEXT : Do you snore loudly (louder than talking or can be heard through closed doors)? 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 Specify any problems Hx of Preganancy in last 3 N/A 02/25/24 15:05 Months Nurse Filling Out Transfusion VCHRISTIN 02/25/24 15:05 & Questions: Date: 02/25/24 02/25/24 15:05 Time: 15:06 02/25/24 15:05 Patient unable to answer at this time (ie. 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: /Reproductive Hx- diesel power shovel operator Hx Now Gestational Age (in weeks): EDC: Hx Hx Para Hx Section SAB No 02/25/24 15:05 Active Medications Active Medications: Current Medications Generic Name Dose Route Start Last Admin Trade Name Freq PRN Reason Stop Dose Admin Lactated Ringer's 1,000 mls @ 15 mls/hr 03/02/24 05:45 03/02/24 05:55 IV 15 mls/hr .Q48H LIYA Administration Anesthesia Focused Assessment* Temperature: 98.9 F Pulse Rate: 65 Blood Pressure: 126/74 Respiratory Rate: 16 Pulse Ox: 96 Airway Assessment Mouth opens: >3 cm Mallampati Score: II Focused Labs Anesthesia Preop lab: CBC WBC 6.0 K/mm3 (4.4-11.0) 12/25/23 06:46 RBC 4.44 M/mm3 (4.6-6.2) L 12/25/23 06:46 Hgb 15.2 g/dL (13.0-16.5) 12/25/23 06:46 Hct 43.7 % (40-54) 12/25/23 06:46 Plt Count 195 K/mm3 (150-450) 12/25/23 06:46 CHEMISTRY Potassium 4.6 mmol/L (3.5-5.1) 12/25/23 06:46 Sodium 137 mmol/L (136-145) 12/25/23 06:46 Magnesium 2.3 mg/dL (1.6-2.6) 04/18/21 12:42 BUN 26 mg/dL (7-18) H 12/25/23 06:46 Creatinine 0.82 mg/dL (0.70-1.30) 12/25/23 06:46 Glucose 91 mg/dL (74-106) 12/25/23 06:46 TSH 0.81 uIU/mL (0.358-3.74) 04/03/21 13:11 COAG Review of Systems (Anesthesia) ROS Narrative System reviewed and no additional complaints, except as documented. [facility] Medical History (Updated 02/25/24 @ 15:04 by Rachel Murphy) Normal stress echocardiogram Gastritis Onofre esophagus Wears glasses Alcohol use Arthritis Back pain Hepatitis High cholesterol Gastric reflux Non-smoker History of edema History of echocardiogram History of stress test Cardiology follow-up encounter Hx of colonic polyp GERD (gastroesophageal reflux disease) Mitral valve annular calcification Chronic renal insufficiency Essential (primary) hypertension Raynaud disease Hyperlipidemia Palpitations Home Medications ?Medication ?Instructions ?Recorded ?Last Taken ?Type coenzyme Q10 30 mg capsule 30 mg PO DAILY 05/21/16 Unknown History multivitamin 1 ea PO DAILY 05/21/16 Unknown History cyanocobalamin (vitamin B-12) 2,000 mcg PO DAILY 04/22/17 Unknown History 2,000 mcg tablet ascorbic acid (vitamin C) 1,000 mg 1 g PO QDAY 09/25/17 Unknown History tablet s-adenosylmethionine 400 mg tablet 800 mg PO DAILY 10/10/21 Unknown History dexlansoprazole 60 mg 60 mg PO DAILY 01/08/22 03/02/24 History capsule,biphase delayed release (Dexilant) melatonin 12 mg tablet 12 mg PO QHS 10/16/22 Unknown History rosuvastatin 10 mg tablet 20 mg PO DAILY 10/16/22 11/28/22 History aspirin-sod bicarb-citric acid 325 1 tab PO PRN PRN BLOATING 11/30/22 Unknown History mg-1,916 mg-1,000 mg efferves tab (Maryjane-Denise Original) lisinopril 5 mg tablet 5 mg PO DAILY #90 tabs 09/25/23 03/02/24 Rx Allergy/AdvReac Type Severity Reaction Status Date / Time No Known Allergies Allergy Verified 03/02/24 05:51 Family History Father Cancer Colon cancer Mother , age 72 CAD (coronary artery disease) Hypertension Breast cancer Surgical History (Updated 02/25/24 @ 15:04 by Rachel Murphy) History of cardiac catheterization History of esophagogastroduodenoscopy (EGD) Hx of foot surgery Hx of colonoscopy Hx of hernia repair Hx of transurethral resection of prostate Hx of appendectomy History of hydrocelectomy Social History Smoking Status: Never smoker alcohol intake: current alcohol intake frequency: 0-2 drinks per day substance use type: does not use caffeine: Yes Type: coffee Number of servings: 4
--- NOTE | 2024-03-02 06:43 | PCM.HP.BLA ---
History and Physical Date of Admission: 03/02/24 BRIANNA COLEMAN, is a 77 M who presents to the office today for f/u EGD that was indicated for hx Onofre's esophagus. His 2021 EGD was positive for Onofre's. The 2022 EGD is also positive for Onofre's; negative for dysplasia; he has a hiatal hernia. He take Dexilant 60 mg daily and famotidine 40 mg qhs. His acid reflux is well controlled (except if he consumes chocolate or red wine). His father had colon cancer in his early 60?s. 2021 Colonoscopy found 5mm polyp (no pathology on bx) in descending colon; diverticulosis in RS, sigmoid and descending colons; impaction of appendiceal orifice with hard stool, most of this was removed, concern for future appendicitis. 02/13/23 EGD Impression: ? - Esophageal mucosal changes secondary to ? established short-segment Onofre's disease. ? Biopsied. ? - Hiatal hernia. ? - No gross lesions in the second portion of the ? duodenum. MICROSCOPIC DIAGNOSIS Distal esophagus, biopsy: Fragments of gastroesophageal mucosa with focal intestinal metaplasia (goblet cell metaplasia), consistent with Onofre's esophagus. Chronic inflammation. Negative for dysplasia ROS Const Constitutional: Positive for weight change; No fatigue ENT ENT: No difficulty swallowing Gastro GI: Positive for bloating, heartburn and excessive flatus; No abdominal pain, belching, change in bowel habits, change in stool character, coffee ground emesis, constipation, cramping, diarrhea, difficulty swallowing, feeling full early, incontinent of stools, Vomiting blood/hematemesis, Blood in stool, loose stools, Black,tarry stools, nausea/dyspepsia, pain with swallowing, vomiting or other Musc Musculoskeletal: Positive for joint pain, joint swelling, stiffness and Arthritis Skin Skin: No yellowing of the eye or itchy eyes Psych Psychiatric: No anxiety and No depression Endo Endocrine: Positive for weight change; No fatigue Aller/Imm Allergy/Immunologic: No itchy eyes Tang/Lymp Hematologic/Lymphatic: No easy bleeding or easy bruising Exam Const General: cooperative, healthy appearing and comfortable Nutritional Appearance: average body habitus Orientation: alert, awake and oriented x3 Quality Reporting Tobacco Screening ([facility] 138) Smoking Status: Never smoker Assessment and Plan Assessment and Plan (1) Onofre esophagus: Status: Chronic Plan: Discussed EGD findings, positive for Onofre's still, negative for dysplasia, continue PPI and [id number] Ok to try meloxicam for OA Repeat EGD one yr I have examined the patient and the H&P has been reviewed. There are no clinical changes since date of exam.
--- NOTE | 2024-03-02 06:56 | PCM.POST.ANE ---
Anesthesia: Postop Eval I Current Vital Signs Temperature: 98.6 F Pulse Rate: 65 Blood Pressure: 113/73 Respiratory Rate: 16 Pulse Ox: 99 Oxygen Delivery Method: Room Air Assessment Airway patent: Yes Spontaneous unlabored respirations: Yes Mental status: Awake and Calm nausea: No Vomiting: No Anesthesia Complication: No Fluid Hydration Crystalloid volume administer (ml): 400 Total IV fluid infused: 400 Progress Note Anesthesia document: Postop Eval 1 completed: Yes
--- NOTE | 2024-03-02 07:00 | OP.EGD_ITS ---
Patient Name: Jung Aburto Procedure Date: 03/02/2024 6:12 AM Date of : 1945 Age: 78 Procedure: Upper GI endoscopy Indications: Onofre's esophagus Providers: David Parra DO Medicines: Monitored Anesthesia Care Patient Profile: This is a 78 year old male. Refer to note in patient chart for documentation of history and physical. Patient has symptoms of chronic heartburn. Complications: No immediate complications. Procedure: Pre-Anesthesia Assessment: - Prior to the procedure, a History and Physical was performed, and patient medications and allergies were reviewed. The patient is competent. The risks and benefits of the procedure and the sedation options and risks were discussed with the patient. All questions were answered and informed consent was obtained. Patient identification and proposed procedure were verified by the physician in the pre-procedure area. Mental Status Examination: alert and oriented. Airway Examination: normal oropharyngeal airway and neck mobility. Respiratory Examination: clear to auscultation. CV Examination: normal. Prophylactic Antibiotics: The patient does not require prophylactic antibiotics. Prior Anticoagulants: The patient has taken no anticoagulant or antiplatelet agents. ASA Grade Assessment: II - A patient with mild systemic disease. After reviewing the risks and benefits, the patient was deemed in satisfactory condition to undergo the procedure. The anesthesia plan was to use monitored anesthesia care (MAC). Immediately prior to administration of medications, the patient was re-assessed for adequacy to receive sedatives. The heart rate, respiratory rate, oxygen saturations, blood pressure, adequacy of pulmonary ventilation, and response to care were monitored throughout the procedure. The physical status of the patient was re-assessed after the procedure. After obtaining informed consent, the endoscope was passed under direct vision. Throughout the procedure, the patient's blood pressure, pulse, and oxygen saturations were monitored continuously. The gastroscope was introduced through the mouth, and advanced to the second part of duodenum. The upper GI endoscopy was accomplished without difficulty. The patient tolerated the procedure well. Scope In: 6:47:58 AM Scope Out: 6:51:28 AM Total Procedure Duration Time 0 hours 3 minutes 30 seconds Findings: There were esophageal mucosal changes secondary to established short-segment Onofre's disease present in the lower third of the esophagus. The maximum longitudinal extent of these mucosal changes was 3 cm in length. Mucosa was biopsied with a cold forceps for histology in a targeted manner and in 4 quadrants at intervals of 1 cm in the lower third of the esophagus. One specimen bottle was sent to pathology. Verification of patient identification for the specimen was done. Estimated blood loss was minimal. A small hiatal hernia was present. The entire examined stomach was normal. No gross lesions were noted in the first portion of the duodenum. Impression: - Esophageal mucosal changes secondary to established short-segment Onofre's disease. Biopsied. - Small hiatal hernia. - Normal stomach. - No gross lesions in the first portion of the duodenum. Recommendation: - Discharge patient to home. - Resume previous diet. - Continue present medications. - Await pathology results. - Repeat upper endoscopy in 1 year for surveillance. Procedure Code(s): --- Professional --- 35318, Esophagogastroduodenoscopy, flexible, transoral; with biopsy, single or multiple CPT copyright 2021 [employer]. All rights reserved. The codes documented in this report are preliminary and upon kettleman review may be revised to meet current compliance requirements. David Parra DO 03/02/2024 6:59:26 AM This report has been signed electronically. Number of Addenda: 0 Note Initiated On: 03/02/2024 6:12 AM
--- NOTE | 2024-03-02 07:00 | OP.CCLET_ITS ---
03/02/2024 Francheska Alonzo Re : Upper GI endoscopy procedure for Jung Alonzo This procedure was performed on Saturday, March 02, 2024. My impressions and recommendations are as follows: Impressions : - Esophageal mucosal changes secondary to established short-segment Onofre's disease. Biopsied. - Small hiatal hernia. - Normal stomach. - No gross lesions in the first portion of the duodenum. Recommendations : - Discharge patient to home. - Resume previous diet. - Continue present medications. - Await pathology results. - Repeat upper endoscopy in 1 year for surveillance. My findings are described in the full procedure note, which is enclosed. If I can be of further assistance, please feel free to contact me at . Sincerely, David Parra, 03/02/2024 6:59:26 AM This report has been signed electronically.
--- NOTE | 2024-03-02 13:00 | PCM.POSTANE2 ---
Anesthesia Postop Eval I Sum Postop Eval Completion status Anesthesia document: Postop Eval 1 completed: Yes Anesthesia Postop Eval I Summary Anesthesia Postop Eval I Summary: Anesthesia Postop Eval I: Assessment Summary Airway patent Yes 03/02/24 07:32 [email or web address] Spontaneous unlabored Yes 03/02/24 07:32 [email or web address] respirations Mental status Awake,Calm 03/02/24 07:32 [email or web address] nausea No 03/02/24 07:32 [email or web address] Vomiting No 03/02/24 07:32 [email or web address] Anesthesia Postop Eval I: Fluid Summary Crystalloid volume administer 400 03/02/24 07:32 [email or web address] (ml) Colloids volume administered ( ml) Blood Product volume administered (ml) Total IV fluid infused 400 03/02/24 07:32 [email or web address] Anesthesia Postop Eval I: Summary Notes Anesthesia Complication No 03/02/24 07:32 [email or web address] Anesthesia Complication Comment: Post-operative progress note Anesthesia: Postop Eval II Evaluation Mental status: Awake and Calm Pain Level: 0 nausea: No Vomiting: No Complications Anesthesia Complication: No
== END 2024-03-02 07:33 | disposition home or self-care (01) ==
LOC: EN 05:28 → AC 05:28
PROVIDERS: PCP Internal Medicine; Referring Provider Internal Medicine; Visit Provider Internal Medicine Gastroenterology
PROC: 0DJ08ZZ Inspection of Upper Intestinal Tract, Via Natural or Artificial Opening Endoscopic (ICD-10-PCS; CPT 43235; principal; 2024-03-02 06:25)
DX: K22.70 Barrett's esophagus without dysplasia (principal); K44.9 Diaphragmatic hernia without obstruction or gangrene; K21.9 Gastro-esophageal reflux disease without esophagitis; Z80.0 Family history of malignant neoplasm of digestive organs
CPT/HCPCS: 43239; 88305; 88312; 88341; 88342; J7120; J2405

== ENCOUNTER → 2024-03-06 | Outpatient (CLI) | payer MEDICARE, SELFPAY ==
[2024-03-06 12:03] LABS: Bacteria 0 SEEN /hpf (None Seen); Mucous, Urine 0 SEEN /hpf (<or=2+); Squamous Epithelial Cells - UA 0 SEEN /hpf (0-5)
[2024-03-06 12:09] LABS: Erythrocyte Sedimentation Rate 6 mm/hr (0-20)
[2024-03-06 12:11] LABS: Color, Urine Yellow (Yellow); Glucose, Dipstick Normal (Normal); Ketone-Dipstick Negative (Negative); Leukocyte Esterase-Dipstick 25 /ul (Negative); Nitrite-Dipstick Negative (Negative); Occult Blood-Urine 10 /ul (Negative); Protein-Dipstick 15 mg/dl (Negative); Specific Gravity, Urine 1.015 (1.002-1.030); Urine Bilirubin Dipstick Negative (Negative); Urine Clarity Clear (Clear); Urine Urobilinogen 1 mg/dl (Normal); Urine pH 6.5 (5.0 - 8.0)
[2024-03-06 12:12] LABS: Absolute Lymphocyte Count 0.81 X10^3/uL (0.83-4.51); Absolute Neutrophil Count 9.4 X10^3/uL (2.0-7.7); Basophil# 0.03 X10^3/uL; Basophil% 0.3 % (0-1); Eosinophil# 0.15 X10^3/uL; Eosinophils% 1.4 % (0-5); Hematocrit 37.8 % (40-54); Hemoglobin 13.1 g/dL (13.0-16.5); Lymphocyte # 0.81 X10^3/ul (0.83-4.51); Lymphocyte % 7.4 % (19-41); Mean Corp Hgb Conc 34.7 g/dL (32-36); Mean Corpuscular Volume 98.2 fL (80-94); Mean Platelet Vol. 11.4 fl (6.2-12.0); Monocyte# 0.42 X10^3/uL; Monocyte% 3.9 % (0-10); NRBC Flagged by Analyzer 0 % (0-5); Neutrophil # 9.41 X10^3/uL (2.7-7.7); Neutrophil % 86.4 % (47-70); Platelet Count 242 K/mm3 (150-450); RBC Distribution Width CV 11.9 % (11.6-14.6); RBC Distribution Width SD 42.6 fl (35.1-43.9); Red Blood Count 3.85 M/mm3 (4.6-6.2); White Blood Count 10.9 K/mm3 (4.4-11.0)
[2024-03-06 12:19] LABS: ALB/GLOB Ratio 1.1 RATIO (0.9-2.4); AST(SGOT) 27 U/L (15-37); Alanine Aminotransfer ALT/SGPT 54 U/L (16-61); Albumin, Serum 3.5 g/dL (3.2-5.0); Alkaline Phosphatase 118 U/L (45-117); Anion Gap 7 (5-15); BUN 31 mg/dL (7-18); BUN/Creat Ratio 42.6 RATIO (10-20); Calcium,Total 8.9 mg/dL (8.5-10.1); Chloride 100 mmol/L (98-107); Creatinine, Serum 0.73 mg/dL (0.70-1.30); EST Glomerular Filtration Rate 111 mL/min (>60); Est Glom Filt Rate - Afr Amer 134 mL/min (>60); Globulin 3.2 g/dL (2.2-4.2); Glucose 104 mg/dL (74-106); Potassium 4.8 mmol/L (3.5-5.1); Protein, Total 6.7 g/dL (6.4-8.2); Sodium Level 133 mmol/L (136-145)
[2024-03-06 12:28] LABS: Red Blood Cells-Urine 0-5 SEEN /hpf (0-5); White Blood Cells 0-5 SEEN /hpf (0-5)
== END | disposition home or self-care (01) ==
LOC: LABSPEC 11:57
PROVIDERS: PCP Internal Medicine; Referring Provider Internal Medicine; Visit Provider Internal Medicine
DX: R21 Rash and other nonspecific skin eruption (principal); R52 Pain, unspecified
CPT/HCPCS: 80053; 81001; 85025; 85652; 86140

== ENCOUNTER → 2024-04-02 | Outpatient (CLI) | payer MEDICARE, SELFPAY ==
[2024-04-02 08:01] LABS: Vitamin D,25 Hydroxy 55.7 ng/mL
[2024-04-02 08:07] LABS: Cholesterol 198 mg/dL (200); High Density Lipoprotein 81 mg/dL; PSA,Total - Annual Screen 1.35 ng/mL (0.00-4.00); Triglycerides 76 mg/dL; Very Low Density Lipoprotein 15 mg/dL (5-40)
== END | disposition home or self-care (01) ==
LOC: LAB 06:05
PROVIDERS: PCP Internal Medicine; Referring Provider Internal Medicine; Visit Provider Internal Medicine
DX: Z12.5 Encounter for screening for malignant neoplasm of prostate (principal); E78.5 Hyperlipidemia, unspecified; E67.3 Hypervitaminosis D
CPT/HCPCS: 36415; 80061; 82306; 84153; G0103

== ENCOUNTER 2024-05-10 10:24 | Emergency (ER) | payer MEDICARE, SELFPAY ==
[2024-05-10] VITALS (7 sets, daily range): BP systolic 114–139; BP diastolic 71–85; PULSE 74–95; RESP 16–18; TEMP 36.4–37.2; O2SAT 94–100; BMI 22.6
--- NOTE | 2024-05-10 11:47 | EX.ED.DYSGE1 ---
HPI History of Present Illness Chief Complaint: Complaint Informant: patient Narrative Narrative: 79-year-old male presenting to the emergency room out of concern for urinary tract infection. Patient states he has a history of BPH and in the past had undergone a TURP. He states that beginning yesterday he noticed some dysuria and a feeling that he was not completely emptying his bladder. He notes he was having body pains and a temperature of 100.4. He has not had anything today for fever. Patient states he has had a history of UTIs in the distant past but none over the past many years. He denies any rashes. No flank pain. No history ureterolithiasis. He is a non-smoker. He denies any cough or URI/respiratory illness. [facility] Medical History Normal stress echocardiogram Gastritis Onofre esophagus Wears glasses Alcohol use Arthritis Back pain Hepatitis High cholesterol Gastric reflux Non-smoker History of edema History of echocardiogram History of stress test Cardiology follow-up encounter Hx of colonic polyp GERD (gastroesophageal reflux disease) Mitral valve annular calcification Chronic renal insufficiency Essential (primary) hypertension Raynaud disease Hyperlipidemia Palpitations Home Medications ?Medication ?Instructions ?Recorded ?Last Taken ?Type coenzyme Q10 30 mg capsule 30 mg PO DAILY 05/21/16 Unknown History multivitamin 1 ea PO DAILY 05/21/16 Unknown History cyanocobalamin (vitamin B-12) 2,000 mcg PO DAILY 04/22/17 Unknown History 2,000 mcg tablet ascorbic acid (vitamin C) 1,000 mg 1 g PO QDAY 09/25/17 Unknown History tablet s-adenosylmethionine 400 mg tablet 800 mg PO DAILY 10/10/21 Unknown History dexlansoprazole 60 mg 60 mg PO DAILY 01/08/22 03/02/24 History capsule,biphase delayed release (Dexilant) melatonin 12 mg tablet 12 mg PO QHS 10/16/22 Unknown History rosuvastatin 10 mg tablet 20 mg PO DAILY 10/16/22 11/28/22 History aspirin-sod bicarb-citric acid 325 1 tab PO PRN PRN BLOATING 11/30/22 Unknown History mg-1,916 mg-1,000 mg efferves tab (Maryjane-[place] Original) lisinopril 5 mg tablet 5 mg PO DAILY #90 tabs 09/25/23 03/02/24 Rx sulfamethoxazole 800 1 tab PO DAILY 10 days #10 tabs 05/10/24 Unknown Rx mg-trimethoprim 160 mg tablet (Bactrim DS) Allergy/AdvReac Type Severity Reaction Status Date / Time No Known Allergies Allergy Verified 05/10/24 10:25 Family History Father Cancer Colon cancer Mother , age 72 CAD (coronary artery disease) Hypertension Breast cancer Surgical History History of cardiac catheterization History of esophagogastroduodenoscopy (EGD) Hx of foot surgery Hx of colonoscopy Hx of hernia repair Hx of transurethral resection of prostate Hx of appendectomy History of hydrocelectomy Social History Smoking Status: Never smoker alcohol intake: current alcohol intake frequency: 0-2 drinks per day substance use type: does not use caffeine: Yes Type: coffee Number of servings: 4 ROS ROS ED Constitutional Constitutional ED: Reports chills and fever(s); Denies weight loss Eyes Eyes: Denies change in vision or diplopia ENT ENT ED: Denies ear pain, rhinorrhea or sore throat Cardiovascular Cardiovascular: Denies chest pain, orthopnea, palpitations or racing heartbeat Respiratory/Chest Respiratory/Chest: Denies cough, dyspnea or orthopnea Gastrointestinal Gastrointestinal: Denies abdominal pain, diarrhea, nausea or vomiting Genitourinary Genitourinary ED: Reports dysuria and urinary frequency; Denies hematuria Musculoskeletal Musculoskeletal: Reports arthralgias and myalgias Integumentary Denies abscess or rash Neurologic Neurologic: Denies headache(s) or weakness Psychiatric Psychiatric: Denies anxiety, depression, suicidal ideation or suicidal thoughts Endocrine Endocrinology: Denies polydipsia, polyphagia or polyuria Allergic/Immunologic Allergic/Immunologic ED: Denies mouth swelling, tongue swelling or urticaria EXAM Physical Exam Const Vital Signs: 05/10/24 10:25 05/10/24 10:27 05/10/24 11:27 Temperature 99.0 F 99.0 F 98.6 F Temperature Source Temporal Temporal Oral Pulse Rate 95 82 91 Respiratory Rate 18 16 18 Blood Pressure 139/71 H 137/84 H 137/71 H Blood Pressure Mean 93 101 93 Pulse Ox 100 94 94 Oxygen Delivery Method Room Air Room Air Room Air 05/10/24 12:00 05/10/24 13:00 Temperature 98.6 F 98.6 F Temperature Source Oral Oral Pulse Rate 91 74 Respiratory Rate 18 16 Blood Pressure 137/71 H 135/74 H Blood Pressure Mean 93 94 Pulse Ox 95 95 Oxygen Delivery Method Room Air Room Air Positive well nourished and well developed General Appearance ED: well developed HEENT Reports normocephalic, head/scalp atraumatic and moist mucous membranes Eyes PERRL and EOMs intact bilaterally Neck no lymphadenopathy, supple and no JVD Resp normal respiratory effort and clear to auscultation bilaterally Cardio regular rate, regular rhythm and no murmurs GI normal to inspection, nondistended, normoactive bowel sounds and non-tender Palpation: soft Back/Spine no CVA tenderness and normal ROM Extremity normal to inspection General Extremety ED: Negative for edema General Extremity: Negative for edema Neuro oriented x3 and CN's II-XII intact bilaterally Sensorium / Orientation: alert Motor Exam: strength 5/5 throughout Psych mental status grossly normal Mood & Affect: Negative for depressed or tearful Skin no rashes or lesions noted and no wounds MDM MDM MDM Narrative Medical decision making narrative: Differential diagnosis includes but not limited to acute cystitis prostatitis diverticulitis ureterolithiasis urethra-itis bacteremia White count 16.9 85.4 neutrophils creatinine is normal at 0.86 BUN of 24. Glucose 131. Normal LFTs. Urinalysis 10-25 white cells 0 bacteria 0 red blood cells nitrate negative. Blood and urine cultures were sent. CT then pelvis was obtained. Please see radiologist read. There is evidence of prostatic enlargement bladder wall thickening and renal cyst. I spoke with the patient regarding the above findings. We can be placing him on Bactrim. He clinically appears well and is currently without fever. He is comfortable with outpatient management and following up with primary care return if worsening or concerns History & Record Review Discussion w/independent historian: Patient Lab Data Attestation: I reviewed the patient's lab results. Labs: Laboratory Results - last 24 hr 05/10/24 05/10/24 10:43 12:00 WBC 16.9 H RBC 4.30 L Hgb 14.6 Hct 42.8 MCV 99.5 H MCH 34.0 H MCHC 34.1 RDW Std Deviation 47.3 H RDW Coeff of Chacha 12.7 Plt Count 154 MPV 10.9 Immature Gran % (Auto) 0.500 Neut % (Auto) 85.4 H Lymph % (Auto) 6.7 L [place] % (Auto) 6.7 Eos % (Auto) 0.4 Baso % (Auto) 0.3 Absolute Neuts (auto) 14.4 H Absolute Lymphs (auto) 1.13 Nucleated RBC % 0 Sodium 137 Potassium 4.0 Chloride 105 Carbon Dioxide 26.0 Anion Gap 6 BUN 24 H Creatinine 0.86 Estim Creat Clear Calc 74.62 Est GFR (MDRD) Af Amer 111 Est GFR (MDRD) Non-Af 92 BUN/Creatinine Ratio 28.1 H Glucose 131 H Calcium 9.1 Total Bilirubin 0.50 AST 16 ALT 22 Alkaline Phosphatase 74 Total Protein 7.2 Albumin 3.7 Globulin 3.5 Albumin/Globulin Ratio 1.1 Urine Color Yellow Urine Clarity Clear Urine pH 6.0 Ur Specific [place] 1.020 Urine Protein 15 H Urine Glucose (UA) Normal Urine Ketones Negative Urine Occult Blood 50 H Urine Nitrite Negative Urine Bilirubin Negative Urine Urobilinogen Normal Ur Leukocyte Esterase 100 H Urine RBC 0 SEEN Urine WBC 10-25 SEEN Ur Squamous Epith Cells 0 SEEN Urine Bacteria 0 SEEN Urine Mucus 0 SEEN Radiography Diagnostic Testing: Clinical Impression(s) from Imaging Studies Abdomen/Pelvis CT 05/10/24 13:04 IMPRESSION: 1. Prominent prostate enlargement. Possible bladder wall thickening although bladder is suboptimally evaluated by not being distended. 2. Moderate to marked diffuse fecal retention. Electronically Signed: George Garsia MD at 13:54 EDT , Discharge Plan Triage Chief Complaint: Complaint ED Provider: Mal Aleman Dx/Rx/DC Orders Clinical Impression: Dysuria, Acute UTI, Leukocytosis, Benign prostatic hyperplasia Instructions: Dysuria Prescriptions: New sulfamethoxazole-trimethoprim [Bactrim DS] 800-160 mg tablet 1 tab PO DAILY 10 Days Qty: 10 0RF No Action ascorbic acid (vitamin C) 1,000 mg tablet 1 g PO QDAY melatonin 12 mg tablet 12 mg PO QHS rosuvastatin 10 mg tablet 20 mg PO DAILY multivitamin 1 EACH tablet 1 ea PO DAILY Patient Comments: supplement coenzyme Q10 30 MG capsule 30 mg PO DAILY Patient Comments: nutrition cyanocobalamin (vitamin B-12) 2,000 MCG tablet 2,000 mcg PO DAILY s-adenosylmethionine 400 mg tablet 800 mg PO DAILY dexlansoprazole [Dexilant] 60 mg Capsule,Biphase Delayed Releas 60 mg PO DAILY [place]ane-[place] Original 325-1,916-1,000 mg tablet, effervescent 1 tab PO PRN PRN (Reason: BLOATING) lisinopril 5 mg tablet 5 mg PO DAILY Qty: 90 3RF Primary Care Provider: Francheska Alonzo Referrals: Francheska Alonzo DO [Primary Care Provider] - 3-5 Days Print Language: Armenian Disposition Disposition: Home, Self Care
[2024-05-10 12:12] LABS: Absolute Lymphocyte Count 1.13 X10^3/uL (0.83-4.51); Absolute Neutrophil Count 14.4 X10^3/uL (2.0-7.7); Basophil# 0.05 X10^3/uL; Basophil% 0.3 % (0-1); Eosinophil# 0.06 X10^3/uL; Eosinophils% 0.4 % (0-5); Hematocrit 42.8 % (40-54); Hemoglobin 14.6 g/dL (13.0-16.5); Lymphocyte # 1.13 X10^3/ul (0.83-4.51); Lymphocyte % 6.7 % (19-41); Mean Corp Hgb Conc 34.1 g/dL (32-36); Mean Corpuscular Volume 99.5 fL (80-94); Mean Platelet Vol. 10.9 fl (6.2-12.0); Monocyte# 1.13 X10^3/uL; Monocyte% 6.7 % (0-10); NRBC Flagged by Analyzer 0 % (0-5); Neutrophil % 85.4 % (47-70); Platelet Count 154 K/mm3 (150-450); RBC Distribution Width CV 12.7 % (11.6-14.6); RBC Distribution Width SD 47.3 fl (35.1-43.9); White Blood Count 16.9 K/mm3 (4.4-11.0)
[2024-05-10 12:40] LABS: ALB/GLOB Ratio 1.1 RATIO (0.9-2.4); AST(SGOT) 16 U/L (15-37); Alanine Aminotransfer ALT/SGPT 22 U/L (16-61); Albumin, Serum 3.7 g/dL (3.2-5.0); Alkaline Phosphatase 74 U/L (45-117); Anion Gap 6 (5-15); BUN 24 mg/dL (7-18); BUN/Creat Ratio 28.1 RATIO (10-20); Calcium,Total 9.1 mg/dL (8.5-10.1); Chloride 105 mmol/L (98-107); Creatinine, Serum 0.86 mg/dL (0.70-1.30); EST Glomerular Filtration Rate 92 mL/min (>60); Est Glom Filt Rate - Afr Amer 111 mL/min (>60); Estimated Creatinine Clearance 74.62 ml/min; Globulin 3.5 g/dL (2.2-4.2); Glucose 131 mg/dL (74-106); Protein, Total 7.2 g/dL (6.4-8.2); Sodium Level 137 mmol/L (136-145)
[2024-05-10 12:45] LABS: Bacteria 0 SEEN /hpf (None Seen); Mucous, Urine 0 SEEN /hpf (<or=2+); Red Blood Cells-Urine 0 SEEN /hpf (0-5); Squamous Epithelial Cells - UA 0 SEEN /hpf (0-5)
[2024-05-10 12:50] LABS: Color, Urine Yellow (Yellow); Glucose, Dipstick Normal (Normal); Ketone-Dipstick Negative (Negative); Leukocyte Esterase-Dipstick 100 /ul (Negative); Nitrite-Dipstick Negative (Negative); Occult Blood-Urine 50 /ul (Negative); Protein-Dipstick 15 mg/dl (Negative); Urine Bilirubin Dipstick Negative (Negative); Urine Clarity Clear (Clear); Urine Urobilinogen Normal (Normal)
[2024-05-10 12:56] LABS: White Blood Cells 10-25 SEEN /hpf (0-5)
--- NOTE | 2024-05-10 13:04 | CT_ITS ---
EXAM: CT ABDOMEN AND PELVIS WITH INTRAVENOUS CONTRAST CLINICAL INDICATION: pain, dysuria, fever TECHNIQUE: Helically acquired images were obtained of the abdomen and pelvis with intravenous contrast. This CT exam was performed using one or more of the following dose reduction techniques: automated exposure control, adjustment of the mA and/or kV according to patient size, and/or use of iterative reconstruction technique. CONTRAST: IV 100mL Isovue-[id number] RADIATION DOSE: CTDIvol = 16.49 mGy, DLP = 826.17 mGy-cm COMPARISON: No relevant prior studies available. FINDINGS: LOWER THORAX: Grossly negative ABDOMEN: LIVER: Liver has widespread simple cysts and is otherwise unremarkable. GALLBLADDER AND BILE DUCTS: Nondistended. No calcified gallstones. No gallbladder distention or wall edema. No intra- or extrahepatic biliary ductal dilation. PANCREAS: Unremarkable. No focal cystic or solid mass. SPLEEN: Unremarkable. Normal size without focal cystic or solid mass. ADRENALS: Unremarkable. No nodules. KIDNEYS AND URETERS: 9.8 cm simple cyst of the upper right kidney. 3 mm nonobstructing stone in the lower pole of the right kidney. 4 mm calcification of the left renal hilum most likely vascular. No hydronephrosis on either side. STOMACH AND BOWEL: Evaluation of the GI tract is limited by absence of oral contrast. Cannot exclude stomach wall thickening. No dilated loops of bowel or evidence for obstruction. Cannot exclude segmental thickening of the dent of the small or large bowel. Cannot exclude enteritis or colitis. Moderate to marked diffuse fecal retention. PELVIS: APPENDIX: No evidence of acute appendicitis. BLADDER: Nondistended. Probable bladder wall thickening. REPRODUCTIVE: Marked prostate enlargement. Probable bladder wall thickening although the bladder is not distended. ABDOMEN and PELVIS: INTRAPERITONEAL SPACE: Unremarkable. No ascites or other fluid collection. No free air. BONES/JOINTS: Degenerative changes throughout the spine. No suspicious lytic or blastic abnormality. SOFT TISSUES: Surgical changes of bilateral inguinal hernia repairs. VASCULATURE: Tortuous aorta and iliac arteries with calcified plaque. No aneurysm. LYMPH NODES: Unremarkable. No enlarged lymph nodes. CT/Abdomen/Pelvis W IV Cont ONLY IMPRESSION: 1. Prominent prostate enlargement. Possible bladder wall thickening although bladder is suboptimally evaluated by not being distended. 2. Moderate to marked diffuse fecal retention. Electronically Signed: George Garsia MD at 13:54 EDT ,
== END 2024-05-10 14:35 | disposition home or self-care (01) ==
PROVIDERS: Emergency Provider Emergency Medicine; PCP Internal Medicine; Visit Provider Emergency Medicine
DX: N39.0 Urinary tract infection, site not specified (principal); D72.829 Elevated white blood cell count, unspecified; E78.00 Pure hypercholesterolemia, unspecified; I12.9 Hypertensive chronic kidney disease with stage 1 through stage 4 chronic kidney disease, or unspecified chronic kidney disease; N40.0 Benign prostatic hyperplasia without lower urinary tract symptoms; N18.9 Chronic kidney disease, unspecified; R30.0 Dysuria; K21.9 Gastro-esophageal reflux disease without esophagitis
CPT/HCPCS: 74177; 80053; 81001; 85025; 87040; 87086; 99283; Q9967; A4216

== ENCOUNTER → 2024-06-22 | Outpatient (CLI) | payer MEDICARE, SELFPAY ==
[2024-06-22 13:01] LABS: Erythrocyte Sedimentation Rate 2 mm/hr (0-20)
[2024-06-22 13:04] LABS: CRP < 2.90 mg/L (0.0-3.0)
== END | disposition home or self-care (01) ==
LOC: LABSPEC 11:57
PROVIDERS: PCP Internal Medicine; Referring Provider Internal Medicine; Visit Provider Internal Medicine
DX: I25.10 Atherosclerotic heart disease of native coronary artery without angina pectoris (principal)
CPT/HCPCS: 85652; 86140

== ENCOUNTER → 2024-07-02 | Outpatient (CLI) | payer MEDICARE, SELFPAY ==
--- OUTSIDE RECORDS SUMMARY | 2024-07-02 06:09 | XMS RPT_ITS | CCD ---
Author Organization [facility] Care Team Providers Care Import/Export Agent Name Role Phone Khadijah Wilson PA-C Unavailable [phone] [employer] Unavailable Mal Velazquez MD Unavailable ADRIANNA MCDUFFIE Unavailable Unavailable ADRIANNA MCDUFFIE Unavailable Unavailable NO REFERRING DR Unavailable Unavailable ADRIANNA MCDUFFIE Unavailable Unavailable ARDIANNA MCDUFFIE Unavailable Unavailable Fast DO, Francheska A Unavailable Moni JANE, Naida Unavailable Unavailable Slanicolas GRIFFITHN, Yoko Unavailable Unavailable Unavailable Unavailable Friend, Dr. Hernandez Unavailable Fast DO, Francheska A Unavailable Mal Elizabeth MD Unavailable Madiha JANE, Kayela Unavailable Unavailable Fast DO, Francheska A Primary Care Provider Fast DO, Francheska A Primary Care Provider Fast DO, Francheska A Attending Unavailable Fast DO, Francheska A Consulting Unavailable Robin THEATER EDUCATION TEACHER, ARPAN Unavailable Unavailable Allergies Allergy Classification Reported Allergen(s) Allergy Type Date of Onset Reaction(s) Facility (20 sources) Codeine; Translations: [Codeine Sulfate *ANALGESICS - OPIOID*] Drug Allergy [facility] Work Phone: Comment on above: Consipation Medications Completed/Discontinued Medications Medication Drug Class(es) Dates Sig (Normalized) Sig (Original) acetaminophen 325 mg / butalbital 50 mg / caffeine 40 mg oral tablet (20 sources) Barbiturate, Central Nervous System Stimulant, Methylxanthine Start: 07-30-2022 Butalbital-APAP- Caffeine 50-325-40 MG Oral Tablet 1 (one) Tablet 1 tab prn migraine for 0 days Quantity: 90 {Tablet} Refills: 3 Ordered: 30-Jul-2022 Fast DO, Francheska A Fast DO, Francheska A Start : 30-Jul-2022 Active Comments[facility] Start: 03-07-2022 Butalbital-APA P-Caffeine 50-325-40 MG Oral Tablet 1 (one) Tablet 1 tab prn migraine for 0 days Quantity: 90 {Tablet} Refills: 3 Ordered: 07-Mar-2022 Fast DO, Francheska A Fast DO, Francheska A Start : 07-Mar-2022 Active Comments[facility] Start: 03-02-2022 Butalbital-APA P-Caffeine 50-325-40 MG Oral Tablet 1 (one) Tablet 1 tab prn migraine for 0 days Quantity: 30 {Tablet} Refills: 3 Ordered: 02-Mar-2022 Fast DO, Francheska A Fast DO, Francheska A Start : 02-Mar-2022 Active Comments: [facility] 07/12 Start: 07-12-2021 Butalbital-APA P-Caffeine 50-325-40 MG Oral Tablet 1 (one) Tablet 1 tab prn migraine for 0 days Quantity: 30 {Tablet} Refills: 3 Ordered: 25-Oct-2021 Fast DO, Francheska A Fast DO, Francheska A Start : 12-Jul-2021 Active Comments: [facility]12 Comment on above: [facility]07[facility] AMLODIPINE BESY-BENAZEPRIL HCL (10 sources) Dihydropyridine Calcium Channel Bianca, Angiotensin Converting Enzyme Inhibitor Start: 1 take 1 tablet by mouth once daily LOTREL 5-10 MG CAPS One tablet by mouth daily AMLODIPINE BESY-BENAZEPRIL HCL [id number] Sonya Ozuna Start: 12-12-2010 End: 08-28-2011 take 1 tablet by mouth once daily LOTREL 5-10 MG CAPS One tablet by mouth daily AMLODIPINE BESY-BENAZEPRIL HCL [id number] Yeni Gray RN ascorbic acid 1000 mg oral tablet (7 sources) Start: 08-28-2011 take 1 tablet by mouth once daily VITAMIN C 1000 MG TABS One tablet by mouth daily ASCORBIC ACID [id number] Yeni Gray RN Start: 08-16-2011 take 1 tablet by darshan th twice daily Ascorbic Acid (VITAMIN C) 500 mg ORAL CpER Take 1 tablet by mouth twice daily. 0 08/16/2011 Active Comment on above: Take 1 tablet by darshan th twice daily. [id number] AFFEINE (10 sources) Barbiturate, Nonsteroidal Anti-inflammatory Drug, Central Nervous System Stimulant, Methylxanthine Start: 09-05-2012 FIORINAL 50-325-40 MG CAPS 2-3 X a week for headaches, as needed [id number] EINE [id number] Petros Valdez MD Start: 12-12-2010 FIORINAL 50-32 5-40 MG CAPS 2-3 X a week for headaches, as needed [id number] Sonya Ozuna atorvastatin 40 mg oral tablet (17 sources) HMG-CoA Reductase Inhibitor Start: 07-06-2015 take 0.5 tablet by mouth once daily in the evening ATORVASTATIN CALCIUM 40 MG TABS 1/2 tablet by mouth every evening (pt cut self down 3 mos ago) ATORVASTATIN CALCIUM [id number] Petros Valdez MD Start: 07-06-2015 ATORVASTATIN C ALCIUM 40 MG TABS One tablet by mouth ever evening ATORVASTATIN CALCIUM [id number] Petros Valdez MD Start: 07-06-2015 take 1 tablet by darshan th once daily ATORVASTATIN CALCIUM 20 MG TABS One tablet by mouth daily ATORVASTATIN CALCIUM [id number] Petros Valdez MD Comment on above: Take 20 mg by mouth once daily. cholecalciferol 0.125 mg oral tablet (2 sources) Vitamin D Start: 02-19-2012 take 1 tablet by mouth once daily Cholecalciferol, Vitamin D3, 5,000 unit Tab Take 1 tablet by mouth once daily. 0 02/19/2012 Active Comment on above: Take 1 tablet by [facility] once daily. ubidecarenone 100 mg oral capsule (12 sources) Start: 02-19-2012 take 1 capsule by mouth once daily Coenzyme Q10 (COQ-10) 100 mg Cap Take 1 capsule by mouth once daily. 0 02/19/2012 Active Start: 12-12-2010 End: 08-28-2011 take 1 tablet by mouth once daily COENZYME Q10 60 MG TABS One tablet by mouth daily COENZYME Q10 [id number] Yeni Gray RN Comment on above: Take 1 capsule by [facility] once daily. dexlansoprazole 60 mg delayed release oral capsule (20 sources) Proton Pump Inhibitor Start: take 1 capsule by mouth once daily Dexilant 60 mg oral capsule,delayed release,biphasic 1 (one) Capsule daily for 90 days Quantity: 90 {Capsule} Refills: 3 Ordered: 02-Jul-2023 Fast DO, Francheska A Fast DO, Francheska A Start : 02-Jul-2023 Active Start: 12-07-2022 take 1 capsule by [facility] once daily Dexilant 60 mg oral capsule,delayed release,biphasic 1 (one) Capsule daily for 0 days Quantity: 30 {Capsule} Refills: 6 Ordered: 07-Dec-2022 Fast DO, Francheska A Fast DO, Francheska A Start : 07-Dec-2022 Active Start: 11-10-2021 take 1 capsule by [facility] once daily Dexilant 60 MG Oral Capsule Delayed Release 1 (one) Capsule daily for 0 days Quantity: 30 {Capsule} Refills: 6 Ordered: 10-Nov-2021 Fast DO, Francheska A Fast DO, Francheska A Start : 10-Nov-2021 Active Start: 10-25-2021 End: 10-25-2021 take 1 capsule by mouth once daily Dexilant 60 MG Oral Capsule Delayed Release 1 (one) Capsule daily for 0 days Quantity: 30 {Capsule} Refills: 0 Ordered: 25-Oct-2021 Fast DO, Francheska A Fast DO, Francheska A Start : 25-Oct-2021 End : 25-Oct-2021 Discontinued Start: 05-16-2021 take 1 capsule by mo [facility] once daily Dexilant 60 MG Oral Capsule Delayed Release 1 (one) Capsule daily for 0 days Quantity: 30 {Capsule} Refills: 0 Ordered: 16-May-2021 Fast DO, Francheska A Fast DO, Francheska A Start : 16-May-2021 Active Start: 12-12-2010 take 1 tablet by darshan once daily DEXILANT 30 MG CPDR One tablet by mouth daily DEXLANSOPRAZOLE [id number] Sonya Ozuna diazePAM 5 mg oral tablet (20 sources) Benzodiazepine Start: 01-02-2023 take 1 tablet by mouth once daily as needed Valium 5 mg oral tablet 1 (one) Tablet daily as needed for 0 days Quantity: 30 {Tablet} Refills: 1 Ordered: 29-Apr-2023 Fast DO, Francheska A Fast DO, Francheska A Start : 29-Apr-2023 Active Comments: Medication taken as needed. verbally called to [facility] 04/29/23 Start: 11-12-2022 take 1 tablet by darshan once daily as needed Valium 5 mg oral tablet 1 (one) Tablet daily as needed for 0 days Quantity: 30 {Tablet} Refills: 0 Ordered: 12-Nov-2022 Fast DO, Francheska A Fast DO, Francheska A Start : 12-Nov-2022 Active Comments: Medication taken as needed. Start: 07-30-2022 take 1 tablet by darshan once daily as needed Valium 5 MG Oral Tablet 1 (one) Tablet daily as needed for 0 days Quantity: 30 {Tablet} Refills: 0 Ordered: 30-Jul-2022 Fast DO, Francheska A Fast DO, Francheska A Start : 30-Jul-2022 Active Comments: Medication taken as needed. verbally called to [facility] 08/01/22 Start: 07-30-2022 take [id number] 5714 tablet by mouth once daily as needed Valium 5 MG Oral Tablet 1 (one) Tablet daily as needed for 0 days Quantity: 30 {Tablet} Refills: 0 Ordered: 30-Jul-2022 Fast DO, Francheska A Fast DO, Francheska A Start : 30-Jul-2022 Active Comments: Medication taken as needed. verbally called to [facility] 12/04 Start: 03-14-2022 take [id number] 5714 tablet by mouth once daily as needed Valium 5 MG Oral Tablet 1 (one) Tablet daily as needed for 0 days Quantity: 30 {Tablet} Refills: 0 Ordered: 14-Mar-2022 Fast DO, Francheska A Fast DO, Francheska A Start : 14-Mar-2022 Active Comments: Medication taken as needed. verbally called to [facility] 12/04 Start: 01-24-2022 take [id number] 5714 tablet by mouth once daily as needed Valium 5 MG Oral Tablet 1 (one) Tablet daily as needed for 0 days Quantity: 30 {Tablet} Refills: 0 Ordered: 24-Jan-2022 Fast DO, Francheska A Fast DO, Francheska A Start : 24-Jan-2022 Active Comments: Medication taken as needed. verbally called to [facility] 12/04 Start: 12-04-2021 take [id number] 5714 tablet by mouth once daily as needed Valium 5 MG Oral Tablet 1 (one) Tablet daily as needed for 0 days Quantity: 30 {Tablet} Refills: 0 Ordered: 04-Dec-2021 Fast DO, Francheska A Fast DO, Francheska A Start : 04-Dec-2021 Active Comments: Medication taken as needed. verbally called to [facility] 12/04 Start: 10-16-2021 take [id number] 665 tablets by mouth once daily as needed Valium 5 MG Oral Tablet 1 (one) Tablet daily as needed for 0 days Quantity: 30 {Tablet} Refills: 0 Ordered: 16-Oct-2021 Fast DO, Francheska A Fast DO, Francheska A Start : 16-Oct-2021 Active Comments: Medication taken as needed. verbally called to [facility] 07/12 Start: 08-28-2021 take [id number] 665 tablets by mouth once daily as needed Valium 5 MG Oral Tablet 1 (one) Tablet daily as needed for 0 days Quantity: 30 {Tablet} Refills: 0 Ordered: 28-Aug-2021 Fast DO, Francheska A Fast DO, Francheska A Start : 28-Aug-2021 Active Comments: Medication taken as needed. verbally called to [facility] 07/12 Start: 12-12-2010 VALIUM 5 MG TA BS As needed1/2 tablet daily as needed DIAZEPAM [id number] Sonya Ozuna Comment on above: Medication taken as needed. [facility] 07[facility]12 Medication taken as needed. verbally called to [facility] 12/04 Medication taken as needed. verbally called to [facility] 08/01/22 Medication taken as needed. Medication taken as needed. verbally called to [facility] 01/02/23 Medication taken as needed. verbally called to [facility] 04/29/23 ELASTIC BANDAGES & SUPPORTS (4 sources) Start: 7 HERNIA BELT DOUBLE LARGE MISC Per package ELASTIC BANDAGES & SUPPORTS [id number] Khadijah Wilson PA-C esomeprazole 20 mg injection (5 sources) Proton Pump Inhibitor Start: 2 take 1 tablet by mouth once daily NEXIUM 20 MG CPDR One tablet by mouth daily ESOMEPRAZOLE MAGNESIUM [id number] Petros Valdez MD famotidine 40 mg oral tablet (20 sources) Histamine-2 Receptor Antagonist Start: 2 take 1 tablet by mouth once daily Famotidine 40 MG Oral Tablet 1 (one) Tablet qd for 0 days Quantity: 30 {Tablet} Refills: 0 Ordered: 24-Jan-2022 Naida Montenegro CMA Start : 25-Oct-2021 Active take 2 tablets by mo [facility] once daily in the evening famotidine (PEPCID) 20 mg tablet Take 40 mg by mouth DAILY AT 6 PM. 0 Active Comment on above: Take 40 mg by mouth DAILY AT 6 PM. fish oil (10 sources) Start: 12-12-2010 End: 08-28-2011 take 1 tablet by mouth once daily FISH OIL CAPS One tablet by mouth daily OMEGA-3 FATTY ACIDS CAPS [id number] Yeni Gray RN Start: 12-12-2010 take 1 tablet by [facility] once daily FISH OIL CAPS One tablet by mouth daily OMEGA-3 FATTY ACIDS CAPS [id number] Sonya Ozuna lansoprazole 30 mg disintegrating oral tablet (5 sources) Proton Pump Inhibitor Start: 08-18-2013 take 1 tablet by mouth once daily PREVACID 30 MG CPDR One tablet by mouth daily LANSOPRAZOLE [id number] Petros Valdez MD lisinopril 5 mg oral tablet (20 sources) Angiotensin Converting Enzyme Inhibitor Start: 05-16-2021 take 1 tablet by mouth once daily Lisinopril 2.5 MG Oral Tablet 1 (one) Tablet daily for 0 days Quantity: 30 {Tablet} Refills: 0 Ordered: 16-May-2021 Fast DO, Francheska A Fast DO, Francheska A Start : 16-May-2021 Active Start: 08-18-2013 take 1 tablet by darshan th once daily Lisinopril 5 MG Oral Tablet 1 (one) Tablet daily for 0 days Quantity: 30 {Tablet} Refills: 0 Ordered: 25-Oct-2021 Fast DO, Francheska A Fast DO, Francheska A Start : 25-Oct-2021 Active Start: 08-18-2013 take 1 tablet by darshan th once daily LISINOPRIL 2.5 MG TABS One tablet by mouth daily LISINOPRIL [id number] Petros Valdez MD Start: 07-14-2012 take 1 tablet by darshan th once daily LISINOPRIL 10 MG TABS One tablet by mouth daily LISINOPRIL [id number] Petros Valdez MD Start: 08-28-2011 take 0.5 tablet by [facility] once daily LISINOPRIL 20 MG TABS One-half tablet by mouth daily LISINOPRIL [id number] Yeni Gray RN Start: 05-29-2011 take 1 tablet by darshan th once daily LISINOPRIL 20 MG TABS One tablet by mouth daily LISINOPRIL [id number] Sonya Ozuna Comment on above: Take 5 mg by mouth o nce daily. meloxicam 7.5 mg oral tablet (10 sources) Nonsteroidal Anti-inflammatory Drug Start: 04-26-2023 take 1 tablet by mouth once daily as needed meloxicam 7.5 mg oral tablet 1 (one) tablet qd prn with food for 30 days Quantity: 30 {Tablet} Refills: 1 Ordered: 26-Apr-2023 Fast DO, Francheska A Fast DO, Francheska A Start : 26-Apr-2023 Active Start: 02-25-2023 take 1 tablet by darshan th once daily as needed meloxicam 7.5 mg oral tablet 1 (one) tablet qd prn with food for 0 days Quantity: 30 {Tablet} Refills: 1 Ordered: 25-Feb-2023 Fast DO, Francheska A Fast DO, Francheska A Start : 25-Feb-2023 Active MULTIPLE VITAMIN (5 sources) Start: 12-12-2010 MULTIVITAMINS TABS Pt state too many to list MULTIPLE VITAMIN [id number] Sonya Ozuna Multivitamin ORAL capsule (2 sources) Start: 11-24-2010 take 1 capsule by mouth once daily Multivitamin ORAL capsule Take 1 capsule by mouth once daily. 0 11/24/2010 Active Comment on above: Take 1 capsule by mo ut once daily. OMEGA-3 FATTY ACIDS (5 sources) Start: 04-15-2017 EQL OMEGA 3 FI SH OIL 1200 MG CPDR once daily OMEGA-3 FATTY ACIDS [id number] Mal Velazquez MD omeprazole 20 mg delayed release oral capsule (7 sources) Proton Pump Inhibitor Start: 08-18-2013 take 1 tablet by mouth once daily OMEPRAZOLE 20 MG CPDR One tablet by mouth daily OMEPRAZOLE [id number] Petros Valdez MD Comment on above: Take 20 mg by mouth once daily. rosuvastatin calcium 40 mg oral tablet (20 sources) HMG-CoA Reductase Inhibitor Start: 02-25-2023 take 1 tablet by mouth once daily rosuvastatin 40 mg oral tablet 1 (one) Tablet qd for 30 days Quantity: 30 {Tablet} Refills: 6 Ordered: 25-Feb-2023 Fast DO, Francheska A Fast DO, Francheska A Start : 25-Feb-2023 Active Start: 11-16-2022 take 1 tablet by darshan th once daily rosuvastatin 20 mg oral tablet 1 (one) Tablet qd for 30 days Quantity: 30 {Tablet} Refills: 6 Ordered: 16-Nov-2022 Fast DO, Francheska A Fast DO, Francheska A Start : 16-Nov-2022 Active Start: 08-13-2022 take 1 tablet by darshan th once daily rosuvastatin 10 mg oral tablet 1 (one) Tablet qd for 30 days Quantity: 30 {Tablet} Refills: 4 Ordered: 13-Aug-2022 Fast DO, Francheska A Fast DO, Francheska A Start : 13-Aug-2022 Active Start: 07-30-2022 take 1 tablet by darshan th once daily Rosuvastatin Calcium 10 MG Oral Tablet 1 (one) Tablet qd for 30 days Quantity: 30 {Tablet} Refills: 4 Ordered: 30-Jul-2022 Fast DO, Francheska A Fast DO, Francheska A Start : 30-Jul-2022 Active Start: 10-25-2021 take 1 tablet by darshan th once daily Rosuvastatin Calcium 5 MG Oral Tablet 1 (one) Tablet qd for 30 days Quantity: 30 {Tablet} Refills: 4 Ordered: 16-Jan-2022 Fast DO, Francheska A Fast DO, Francheska A Start : 16-Jan-2022 Active Start: 07-24-2021 take 1 tablet by darshan th every other day Rosuvastatin Calcium 5 MG Oral Tablet 1 (one) Tablet qod for 0 days Quantity: 30 {Tablet} Refills: 4 Ordered: 24-Jul-2021 Fast DO, Francheska A Fast DO, Francheska A Start : 24-Jul-2021 Active Start: 07-06-2015 End: 07-06-2015 take 1 tablet by mouth once daily in the evening CRESTOR 20 MG TABS One tablet by mouth every evening ROSUVASTATIN CALCIUM [id number] Regine Bonilla RN Comment on above: Mail order. s-adenosylmethionine 400 mg oral tablet (7 sources) Start: 08-28-2011 take 1 tablet by mouth once daily JORDYN-E 400 MG TABS One tablet by mouth daily S-ADENOSYLMETHIONINE [id number] Yeni Gray RN Start: 11-24-2010 take 1 tablet by darshan th once daily S-Adenosylmethionine (JORDYN-E, ENTERIC COATED,) 400 mg ORAL TbEC Take 1 tablet by mouth once daily. 0 11/24/2010 Active Comment on above: Take 1 tablet by darshan th once daily. tadalafil 5 mg oral tablet (10 sources) Phosphodiesterase 5 Inhibitor Start: 02-26-20 23 take 1 tablet by mouth once daily tadalafiL 5 mg oral tablet 1 (one) tablet qd as directed for 0 days Quantity: 30 {Tablet} Refills: 3 Ordered: 25-Feb-2023 Naida Montenegro CMA Start : 25-Feb-2023 Active vitamin b 12 0.5 mg oral tablet (20 sources) Vitamin B12 Start: 12-13-19 11 End: 08-28-20 11 take 1 tablet by mouth once daily VITAMIN B-12 500 MCG TABS One tablet by mouth daily CYANOCOBALAMIN [id number] Sonya Ozuna Vitamin b12 Acti ve CHOLECALCIFEROL (10 sources) Start: 12-12-2010 take 1 tablet by mouth once daily VITAMIN D 1000 UNIT TABS One tablet by mouth daily CHOLECALCIFEROL [id number] Sonya Ozuna Start: 12-12-2010 End: 08-28-2011 take 1 tablet by mouth once daily VITAMIN D 1000 UNIT TABS One tablet by mouth daily CHOLECALCIFEROL [id number] Yeni Gray RN vitamin e 400 unt oral capsule (10 sources) Start: 12-12-2010 End: 08-28-2011 take 1 tablet by mouth once daily VITAMIN E 400 UNIT CAPS One tablet by mouth daily VITAMIN E [id number] Sonya Ozuna Problems Active Problems Problem Classification Problem Date Documented Date Episodic/Chronic Abdominal pain (20 sources) Flank pain; Translations: [Pain, flank, bilateral] Resolved: 06-03-2023 08-10-2022 Episodic Anxiety disorders (20 sources) Anxiety; Translations: [Anxiety] 07-12-2021 Chronic Comment on above: chronic stable-domingo nue present regimen Cardiac dysrhythmias (20 sources) Ventricular premature beats; Translations: [PVCs (premature ventricular contractions)] 07-11-2021 Chronic Comment on above: chronic stable-domingo nue present regimen not feeling these co ntinue to monitor doing well Complications of surgical procedures or medical care (2 sources) Postoperative hypothyroidism; Translations: [Postprocedural hypothyroidism] Onset: 02-06-2011 02-06-2011 Chronic Coronary atherosclerosis and other heart disease (20 sources) Coronary arteriosclerosis; Translations: [Coronary artery disease] 02-25-2023 Chronic Comment on above: risk factor modifica tion we discussed needs ldl lower risk factor modifica tion Disorders of lipid metabolism (20 sources) Hyperlipidemia; Translations: [Hyperlipidemia] Onset: 12-12-2010 12-12-2010 Chronic Comment on above: discussed diet and e x- increease meds to daily continueworking on l owering animal fats he is exercising routinely discussed diet and e x in detail he is working on t he thinks taking 20 mg not 10 he will verify- he is exercising routinely watch high fat anima l products increase statin improved still needs ldl under 70 but improving he is working on diet and ex Esophageal disorders (20 sources) Gastroesophageal reflux disease; Translations: [GERD (gastroesophageal reflux disease)] Onset: 11-28-2017 07-11-2021 Chronic Comment on above: chronic stable-domingo nue present regimen this was on path rep ort - he has followup with gi and will see what further plan is not due for egd no s ymtpoms at present he had scope 01/29- n o dysplasia just had scope no dy splasia- he will try to wean off famotidine and see if makes difference in breast tenderness Essential hypertension (20 sources) Hypertensive disorder; Translations: [Hypertension] 07-11-2021 Chronic Comment on above: good control on high er dose good control chronic stable-domingo nue present regimen Headache; including migraine (20 sources) Chronic tension-type headache; Translations: [Chronic tension headaches] 07-12-2021 Chronic Comment on above: chronic stable-domingo nue present regimen Heart valve disorders (5 sources) Mitral valve disorder; Translations: [Other nonrheumatic mitral valve disorders] Onset: 12-12-2010 12-12-2010 Chronic Hyperplasia of prostate (20 sources) Benign prostatic hyperplasia; Translations: [BPH (benign prostatic hyperplasia)] 07-11-2021 Chronic Comment on above: chronic stable-domingo nue present regimen Immunizations and screening for infectious disease (20 sources) Patient encounter status; Translations: [Encounter for hepatitis C virus screening test for high risk patient] Onset: 11-28-2017 Resolved: 06-03-2023 07-11-2021 Episodic Nonmalignant breast conditions (20 sources) Breast finding ; Translations: [Abnormal breast exam] Resolved: 07-30-2022 03-23-2022 Episodic Comment on above: discussed workup and he doesnt wish to do testosterone at this point-he will monitor for change and let me know per patient sligt im provment improving with dim Other and unspecified benign neoplasm (20 sources) Polyp of colon; Translations: [Colon polyp] 07-11-2021 Episodic Comment on above: last scope 11/23 - bular adenoma- due 11/28 colonsoocpy up to da te Other and unspecified benign neoplasm (20 sources) Dysplastic nevus of skin; Translations: [Atypical nevus] 07-30-2022 Episodic Comment on above: 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 Other hematologic conditions (20 sources) Macrocytosis; Translations: [Macrocytosis] 07-11-2021 Chronic Other male genital disorders (20 sources) Male erectile dysfunction, unspecified; Translations: [Erectile dysfunction] 02-25-2023 Chronic Comment on above: side effects of tada lafil discusse dwhat to do persistent erection - not to take with nitro Other non-traumatic joint disorders (20 sources) Joint pain; Translations: [Arthralgia] 02-25-2023 Episodic Comment on above: workup neg for autoi mmune Other nutritional; endocrine; and metabolic disorders (20 sources) Hypervitaminosis D; Translations: [High vitamin D level] 11-12-2022 Chronic Comment on above: vitamin d on hold fo r now better Residual codes; unclassified (20 sources) Body mass index 20-24 - normal; Translations: [BMI 22.0-22.9, adult] Resolved: 06-03-2023 07-11-2021 Episodic Residual codes; unclassified (20 sources) Swelling - edema - symptom; Translations: [Edema] 07-11-2021 Episodic Residual codes; unclassified (20 sources) Non-smoker; Translations: [Nonsmoker] 07-11-2021 Episodic Residual codes; unclassified (20 sources) Edema; Translations: [Edema] Resolved: 06-03-2023 10-25-2021 Episodic Comment on above: watch salt support h ose Residual codes; unclassified (20 sources) Bilateral lower limb edema; Translations: [Bilateral leg edema] 06-03-2023 Episodic Comment on above: think veenous stasis - check doppler - wear support hose watch salt Thyroid disorders (2 sources) Non-toxic multinodular goiter; 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] Onset: 11-24-2010 11-24-2010 Chronic Unclassified (20 sources) [facility] WELL[facility] EXAM 07-11-2021 Unclassified (20 sources) Chronic tension headaches Unclassified (20 sources) Unclassified (20 sources) BMI 22.0-22.9, adult Unclassified (20 sources) Nonsmoker Unclassified (20 sources) Encounter for hepatitis C virus screening test for high risk patient Unclassified (20 sources) Colon polyp Unclassified (20 sources) PVCs (premature ventricular contractions) Unclassified (17 sources) BMI 21.0-21.9, adult Past or Other Problems Problem Classification Problem Date Documented Da te Episodic/Chronic Abdominal hernia (5 sources) Bilateral inguinal hernia; Translations: [Bilateral inguinal hernia, without obstruction or gangrene, not specified as recurrent] Onset: 04-15-2017 04-15-2017 Episodic Cardiac dysrhythmias (5 sources) Palpitations; Translations: [Palpitations] Onset: 12-12-2010 12-12-2010 Episodic Lymphadenitis (3 sources) Enlarged lymph nodes, unspecified; Translations: [ENLARGED LYMPH NODES UNS] Onset: 04-09-2017 Episodic Other aftercare (5 sources) Other assisted (current) drug therapy; Translations: [Other assisted (current) drug therapy] Onset: 12-12-2010 12-12-2010 Episodic Other circulatory disease (5 sources) Carotid bruit; Translations: [Other specified symptoms and signs involving the circulatory and respiratory systems] Onset: 12-12-2010 12-12-2010 Episodic Other disorders of stomach and duodenum (2 sources) Nonulcer dyspepsia; Translations: [Functional dyspepsia] Onset: 11-28-2017 11-28-2017 Episodic Residual codes; unclassified (2 sources) Family history of cancer of colon; Translations: [Family history of malignant neoplasm of digestive organs] Onset: 11-28-2017 11-28-2017 Episodic Unclassified (5 sources) FH: Hypertension; Translations: [Family history of ischemic heart disease and other diseases of the circulatory system] 08-17-2014 Episodic Unclassified (12 sources) Screening PSA (prostate specific antigen) Unclassified (4 sources) Abnormal breast exam Unclassified (4 sources) Subareolar gynecomastia in male Results Test Name Value Interpretation Reference Range Facility CBC W/AUTO DIFF WBC ([id number])O rdered By: Standards Analyst on 07-16-2022 Basophils (Bld) [#/Vol] 0.0 10*3/uL Normal 0.0-0.2 [facility] Work Phone: Comment on above: PATIENT WAS FASTINGP ERFORMED BY: [address] [id number] Information: NURSE DRAW Basophils/100 WBC (Bld) 1 % Normal [facility]; [facility] Work Phone: Comment on above: PATIENT WAS FASTINGP ERFORMED BY: [address] [id number] Information: NURSE DRAW Eosinophils (Bld) [#/Vol] 0.3 10*3/uL Normal 0.0-0.4 [facility]; [facility] Work Phone: Comment on above: PATIENT WAS FASTINGP ERFORMED BY: [address] [id number] Information: NURSE DRAW Eosinophils/100 WBC (Bld) 5 % Normal [facility]; [facility] Work Phone: Comment on above: PATIENT WAS FASTINGP ERFORMED BY: [address] [id number] Information: NURSE DRAW Erythrocyte distribution width (RBC) [Ratio] 12.3 % Normal 11.6-15.4 [facility]; [facility] Work Phone: Comment on above: PATIENT WAS FASTINGP ERFORMED BY: [address] [id number] Information: NURSE DRAW Hematocrit (Bld) [Volume fraction] 46.3 % Normal 37.5-51.0 [facility]; [facility] Work Phone: Comment on above: PATIENT WAS FASTINGP ERFORMED BY: [place] [id number] [facility] [id number] Information: NURSE DRAW Hemoglobin (Bld) [Mass/Vol] 16.0 g/dL Normal 13.0-17.7 [facility]; [facility] Work Phone: Comment on above: PATIENT WAS FASTINGP ERFORMED BY: [address] [id number] Information: NURSE DRAW Immature granulocytes (Bld) [#/Vol] 0.0 10*3/uL Normal 0.0-0.1 [facility]; [facility] Work Phone: Comment on above: PATIENT WAS FASTINGP ERFORMED BY: [address] [id number] Information: NURSE DRAW Immature granulocytes/100 WBC (Bld) 0 % Normal [facility]; [facility] Work Phone: Comment on above: PATIENT WAS FASTINGP ERFORMED BY: [address] [id number] Information: NURSE DRAW Lymphocytes (Bld) [#/Vol] 1.4 10*3/uL Normal 0.7-3.1 [facility]; [facility] Work Phone: Comment on above: PATIENT WAS FASTINGP ERFORMED BY: [address] [id number] Information: NURSE DRAW Lymphocytes/100 WBC (Bld) 25 % Normal [facility]; [facility] Work Phone: Comment on above: PATIENT WAS FASTINGP ERFORMED BY: [address] [id number] Information: NURSE DRAW MCH (RBC) [Entitic mass] 34.5 pg Abnormal 26.6-33.0 [facility]; [facility] Work Phone: Comment on above: PATIENT WAS FASTINGP ERFORMED BY: [address] [id number] Information: NURSE DRAW MCHC (RBC) [Mass/Vol] 34.6 g/dL Normal 31.5-35.7 [facility]; [facility] Work Phone: Comment on above: PATIENT WAS FASTINGP ERFORMED BY: CLIFF Oliva6370 [facility] [id number] Information: NURSE DRAW MCV (RBC) [Entitic vol] 100 fL Abnormal 79-97 [facility]; [facility] Work Phone: Comment on above: PATIENT WAS FASTINGP ERFORMED BY: CLIFF [facility] [address] [id number] Information: NURSE DRAW Monocytes (Bld) [#/Vol] 0.4 10*3/uL Normal 0.1-0.9 [facility]; [facility] Work Phone: Comment on above: PATIENT WAS FASTINGP ERFORMED BY: CLIFF Silva Oycj[address] [id number] Information: NURSE DRAW Monocytes/100 WBC (Bld) 7 % Normal [facility]; [facility] Work Phone: Comment on above: PATIENT WAS FASTINGP ERFORMED BY: CLIFF Silva H[address]mery[address] [id number] Information: NURSE DRAW Neutrophils (Bld) [#/Vol] 3.4 10*3/uL Normal 1.4-7.0 [facility]; [facility] Work Phone: Comment on above: PATIENT WAS FASTINGP ERFORMED BY: CLIFF [place] [id number] [facility] [id number] Information: NURSE DRAW Neutrophils/100 WBC (Bld) 62 % Normal [facility]; [facility] Work Phone: Comment on above: PATIENT WAS FASTINGP ERFORMED BY: CLIFF Silva Bdtojp0479 [facility] [id number] Information: NURSE DRAW Platelets (Bld) [#/Vol] 224 10*3/uL Normal 150-450 [facility]; [facility] Work Phone: Comment on above: PATIENT WAS FASTINGP ERFORMED BY: CB [facility] Zylljs7099 [address] [facility] [id number] Information: NURSE DRAW RBC (Bld) [#/Vol] 4.64 10*6/uL Normal 4.14-5.80 [facility] Internal [facility]; [facility] Work Phone: Comment on above: PATIENT WAS FASTINGP ERFORMED BY: CB [facility] Wmzjio7295 [facility] [id number] Information: NURSE DRAW WBC (Bld) [#/Vol] 5.6 10*3/uL Normal 3.4-10.8 [facility] Internal [facility]; [facility] Work Phone: Comment on above: PATIENT WAS FASTINGP ERFORMED BY: CLIFF [facility] Wmxbyd4030 [facility] [id number] Information: NURSE DRAW METABOLIC PANEL, JENNIFER JIMENEZ ([id number])Ordered By: Standards Analyst on 07-16-2022 Albumin [Mass/Vol] 4.9 g/dL Abnormal 3.7-4.7 [facility]; [facility] Work Phone: Comment on above: PATIENT WAS FASTINGP ERFORMED BY: CB [facility] Blkbbb9854 [facility] [id number]; wellness labs, ok to wait for wellness to review Albumin/Globulin [Mass ratio] 2.6 {ratio} Abnormal 1.2-2.2 [facility] Internal [facility]; [facility] Work Phone: Comment on above: PATIENT WAS FASTINGP ERFORMED BY: CB [facility] Kegacq5670 [address] [facility] [id number]; wellness labs, ok to wait for wellness to review ALP [Catalytic activity/Vol] 91 U/L Normal 44-121 [facility]; [facility] Work Phone: Comment on above: PATIENT WAS FASTINGP ERFORMED BY: CB [facility] Fyusop9379 [address] [facility] [id number]; wellness labs, ok to wait for wellness to review ALT [Catalytic activity/Vol] 24 U/L Normal 0-44 [facility]; [facility] Work Phone: Comment on above: PATIENT WAS FASTINGP ERFORMED BY: CB [facility] Omblrf1576 Rodas RoadDublin [place] [id number]; wellness labs, ok to wait for wellness to review AST [Catalytic activity/Vol] 25 U/L Normal 0-40 [facility]; [facility] Work Phone: Comment on above: PATIENT WAS FASTINGP ERFORMED BY: CB [facility] Zeqhxj9125 [address] RoadDublin [place] [id number]; wellness labs, ok to wait for wellness to review Bilirubin [Mass/Vol] 0.3 mg/dL Normal 0.0-1.2 [facility]; [facility] Work Phone: Comment on above: PATIENT WAS FASTINGP ERFORMED BY: CB [facility] Sajepp0764 [address] RoadNov[facility] Centerin [place] [id number]; wellness labs, ok to wait for wellness to review Calcium [Mass/Vol] 9.8 mg/dL Normal 8.6-10.2 [facility]; [facility] Work Phone: Comment on above: PATIENT WAS FASTINGP ERFORMED BY: CB [facility] Ejoqal7360 [address] RoadNovant Health Clemmons Medical Centerin [place] [id number]; wellness labs, ok to wait for wellness to review Chloride [Moles/Vol] 103 mmol/L Normal 96-106 [facility]; [facility] Work Phone: Comment on above: PATIENT WAS FASTINGP ERFORMED BY: CB [facility] Drlrnq2638 Rodas RoadDuin [place] [id number]; wellness labs, ok to wait for wellness to review CO2 [Moles/Vol] 21 mmol/L Normal 20-29 [facility]; [facility] Work Phone: Comment on above: PATIENT WAS FASTINGP ERFORMED BY: CB [facility] Zkncdc1879 Rod[address] RoadDuin [place] [id number]; wellness labs, ok to wait for wellness to review Creatinine [Mass/Vol] 0.92 mg/dL Normal 0.76-1.27 [facility]; [facility] Work Phone: Comment on above: PATIENT WAS FASTINGP ERFORMED BY: CLIFF [facility] Twbqku0214 [facility] [id number]; wellness labs, ok to wait for wellness to review GFR/1.73 sq M.predicted among non-blacks MDRD (S/P/Bld) [Vol rate/Area] 86 mL/min/{1.73_m2} Normal Comprehens[facility] e [facility]; [facility] Work Phone: Comment on above: PATIENT WAS FASTINGP ERFORMED BY: CLIFF [facility] Aiibkd6690 [facility] [id number]; wellness labs, ok to wait for wellness to review Globulin (S) [Mass/Vol] 1.9 g/dL Normal 1.5-4.5 [facility]; [facility] Work Phone: Comment on above: PATIENT WAS FASTINGP ERFORMED BY: CLIFF [facility] Rfkezv7618 [facility] [id number]; wellness labs, ok to wait for wellness to review Glucose [Mass/Vol] 94 mg/dL Normal 70-99 [facility]; [facility] Work Phone: Comment on above: PATIENT WAS FASTINGP ERFORMED BY: CLIFF [facility] Pdfpkm1265 [facility] [id number]; wellness labs, ok to wait for wellness to review Potassium [Moles/Vol] 4.7 mmol/L Normal 3.5-5.2 [facility]; [facility] Work Phone: Comment on above: PATIENT WAS FASTINGP ERFORMED BY: CB [facility] Qqwkcd2546 [facility] [id number]; wellness labs, ok to wait for wellness to review Protein [Mass/Vol] 6.8 g/dL Normal 6.0-8.5 [facility]; [facility] Work Phone: Comment on above: PATIENT WAS FASTINGP ERFORMED BY: CLIFF [facility] Sniwac1999 [facility] [id number]; wellness labs, ok to wait for wellness to review Sodium [Moles/Vol] 141 mmol/L Normal 134-144 Compre hensive [facility]; [facility] Work Phone: Comment on above: PATIENT WAS FASTINGP ERFORMED BY: CLIFF [facility] Ezzmko3352 Rod[address] RoadDublin [place] [id number]; wellness labs, ok to wait for wellness to review Urea nitrogen [Mass/Vol] 25 mg/dL Normal 8-27 [facility]; [facility] Work Phone: Comment on above: PATIENT WAS FASTINGP ERFORMED BY: CB [facility] Kupejl6180 [address] RoadDublin [place] [id number]; wellness labs, ok to wait for wellness to review Urea nitrogen/Creatinine [Mass ratio] 27 mg/mg Abnormal 10-24 [facility]; [facility] Work Phone: Comment on above: PATIENT WAS FASTINGP ERFORMED BY: CLIFF [facility] Ywyqsd4420 [address] RoadDublin [place] [id number]; wellness labs, ok to wait for wellness to review URINALYSIS, W/ MICRO ([id number]) Ordered By: Standards Analyst on 07-16-2022 Appearance (U) Cloudy Abnormal Comprehens bari [facility]; [facility] Work Phone: Comment on above: PATIENT WAS FASTINGP ERFORMED BY: CLIFF [facility] Xoejzr0555 [address] RoadDuin [place] [id number] Bilirubin Ql (U) Negative Normal Comprehe nsive Internal Medicine; [facility] Work Phone: Comment on above: PATIENT WAS FASTINGP ERFORMED BY: CLIFF [facility] Jkepcr6321 [address] RoadDublin [place] [id number] Color (U) Yellow Normal [facility]; [facility] Work Phone: Comment on above: PATIENT WAS FASTINGP ERFORMED BY: CLIFF [facility] Ophqnn4771 [address] RoadDublin [place] [id number] Glucose Ql (U) Negative Normal Comprehens bari [facility]; [facility] Work Phone: Comment on above: PATIENT WAS FASTINGP ERFORMED BY: CLIFF Lab[facility] Wsgdrr8728 [address] RoadDublin [place] [id number] Hemoglobin Ql (U) Negative Normal Compreh ensive Internal [facility]; [facility] Work Phone: Comment on above: PATIENT WAS FASTINGP ERFORMED BY: CLIFF Lab[facility] JohnsonVugmqz7579 [address] RoadDublin [place] [id number] Ketones Ql (U) Negative Normal Comprehens bari [facility]; [facility] Work Phone: Comment on above: PATIENT WAS FASTINGP ERFORMED BY: CLIFF Labcokristopher JohnsonWkywfk4434 [address] RoadDublin [place] [id number] Leukocyte esterase Test strip Ql (U) Negative Normal [facility]; [facility] Work Phone: Comment on above: PATIENT WAS FASTINGP ERFORMED BY: CLIFF Johnsonlin6370 [address] RoadDublin [place] [id number] Microscopic observation LM Nom (Urine sed) MICRON Normal [facility]; [facility] Work Phone: Comment on above: Microscopic follows if indicated. PATIENT WAS FASTINGP ERFORMED BY: CLIFF Labcokristopher JohnsonNhtbtn3359 [address] RoadDublin [place] [id number] Microscopic observation LM Nom (Urine sed) See below: Normal [facility]; [facility] Work Phone: Comment on above: Microscopic was kamryn cated and was performed. PATIENT WAS FASTINGP ERFORMED BY: CLIFF [facility] Fwjlae1372 [address] RoadDublin [place] [id number] Nitrite Ql (U) Negative Normal Comprehens bari [facility]; [facility] Work Phone: Comment on above: PATIENT WAS FASTINGP ERFORMED BY: CLIFF [facility] Fftnfw2942 [address] RoadDublin [place] [id number] pH (U) 8.0 [pH] Abnormal 5.0-7.5 [facility]; [facility] Work Phone: Comment on above: PATIENT WAS FASTINGP ERFORMED BY: CLIFF [facility] Hghyrf5637 [address] RoadDublin [place] [id number] Protein Ql (U) Negative Normal Comprehens [facility]; [facility] Work Phone: Comment on above: PATIENT WAS FASTINGP ERFORMED BY: [employer]Cr[employer]6370 [facility] [id number] Specific gravity (U) [Rel density] 1.020 1 Normal 1.005-1.03 0 [facility]; [facility] Work Phone: Comment on above: PATIENT WAS FASTINGP ERFORMED BY: [employer]unch[address] [facility] [id number] Urobilinogen (U) [Mass/Vol] 0.2 mg/dL Normal 0.2-1.0 [facility]; [facility] Work Phone: Comment on above: PATIENT WAS FASTINGP ERFORMED BY: Badongo.com[address] [facility] [id number] Stew [facility]-20[facility] JUNG COLEMAN ([id number]) 1945 M Date Time Provider Department 04/20/22 MAL VELAZQUEZ During your visit today, we recorded the following information about you: Kirstie García RN 04/20/2022 10:[address] Velazquez, called Pt to report results were benign and no surgical intervention needed at this time. Pt voiced understanding and had no other needs. Allergies As of Date: 04/20/2022 (No Known Allergies) Date Reviewed: 04/10/2022 Reviewed by: Kirstie García RN - Fully Assessed Reason for Visit: Results [95] Cmt: Bx results Prescriptions as of 04/20/2022 - atorvastatin (LIPITOR) 20 mg tablet Take 20 mg by mouth once daily. - lisinopril (ZESTRIL, PRINIVIL) 5 mg tablet Take 5 mg by mouth once daily. - omeprazole (PRILOSEC) 20 mg capsule Take 20 mg by mouth once daily. - famotidine (PEPCID) 20 mg tablet Take 40 mg by mouth DAILY AT 6 PM. - Cholecalciferol, Vitamin D3, 5,000 unit Tab Take 1 tablet by mouth once daily. - Coenzyme Q10 (COQ-10) 100 mg Cap Take 1 capsule by mouth once daily. - Ascorbic Acid (VITAMIN C) 500 mg ORAL CpER Take 1 tablet by mouth twice daily. - Multivitamin ORAL capsule Take 1 capsule by mouth once daily. - S-Adenosylmethionine (JORDYN-E, ENTERIC COATED,) 400 mg ORAL TbEC Take 1 tablet by mouth once daily. Problem List As Of Date 04/20/2022 Noted Resolved Nontoxic multinodular goiter [E04.2] 11/24/2010 Postsurgical hypothyroidism [E89.0] 02/06/2011 Functional dyspepsia [K30] 11/28/2017 Gastroesophageal reflux disease [K21.9] 11/28/2017 Encounter for hepatitis C screening test for lo*11/28/2017 Family history of colon cancer in father [Z80.0]11/28/2017 Encounter Status:Closed by KIRSTIE GARCÍA on 04/20/22 [facility] Luzma 04-17-2022 CNOV Office Visit (YIFANS ) JUNG COLEMAN ([id number]) 1945 M Date Time Provider Department 04/17/22 1:20 PM MAL VELAZQUEZ During your visit today, we recorded the following information about you: Ofelia Mela 04/17/2022 2:06 PM Signed UNIVERSAL PROTOCOL / SAFETY CHECKLIST Procedure to be Performed: Ultrasound Guided Needle Core Biopsy Right Breast Sign In: A Moment of CARE was completed. Personnel directly involved with the procedure wore the appropriate PPE (Personal Protective Equipment). Patient/Surrogate Stated/Verified: PATIENT VERIFIED(optional for EMERGENT procedures): Patient name, Date of , Relevant allergies, and The intended procedure Time Out Communication: Intended patient and procedure match the source documents. Consent documented and matches the intended procedure. Sign Out: SIGN OUT (optional for EMERGENT procedures): All specimen containers correctly labeled. Ofelia Velazquez III, MD 04/17/2022 2:11 PM Signed Preoperative diagnosis: Subcutaneous mass to right breast Postoperative diagnosis: The same Procedure: Ultrasound-guided needle core biopsy subcutaneous mass to right breast Surgeon: Marcus Procedure: Right breast underneath the nipple areolar complex showed the mass in question. Prepped the skin with Betadine. Injected 1% lidocaine plain. Injected local down to the mass. Skin john was made. Under ultrasound guidance 2 needle core biopsies were obtained. Under ultrasound guidance a small titanium clip was placed at the biopsy cavity. Sterile dressings were applied and the patient tolerated the procedure well. Referring Provider: MAL VELAZQUEZ [[id number]] Allergies As of Date: 04/17/2022 (No Known Allergies) Date Reviewed: 04/10/2022 Reviewed by: Kirstie García RN - Fully Assessed Reason for Visit: Procedure [88] Cmt: Right Breast Biopsy Primary Visit Diagnosis:Subareolar mass of right breast [N63.41] Order(s):US BREAST BIOPSY RIGHT (POC) SURG USE ONLY [3653981] Order #: [id number]. #:[id number]: 1 SURGICAL PATHOLOGY [[id number]] Order #: [id number]. #:[id number] Prescriptions as of 04/17/2022 - atorvastatin (LIPITOR) 20 mg tablet Take 20 mg by mouth once daily. - lisinopril (ZESTRIL, PRINIVIL) 5 mg tablet Take 5 mg by mouth once daily. - omeprazole (PRILOSEC) 20 mg capsule Take 20 mg by mouth once daily. - famotidine (PEPCID) 20 mg tablet Take 40 mg by mouth DAILY AT 6 PM. - Cholecalciferol, Vitamin D3, 5,000 unit Tab Take 1 tablet by mouth once daily. - Coenzyme Q10 (COQ-10) 100 mg Cap Take 1 capsule by mouth once daily. - Ascorbic Acid (VITAMIN C) 500 mg ORAL CpER Take 1 tablet by mouth twice daily. - Multivitamin ORAL capsule Take 1 capsule by mouth once daily. - S-Adenosylmethionine (JORDYN-E, ENTERIC COATED,) 400 mg ORAL TbEC Take 1 tablet by mouth once daily. Problem List As Of Date 04/17/2022 Noted Resolved Nontoxic multinodular goiter [E04.2] 11/24/2010 Postsurgical hypothyroidism [E89.0] 02/06/2011 Functional dyspepsia [K30] 11/28/2017 Gastroesophageal reflux disease [K21.9] 11/28/2017 Encounter for hepatitis C screening test for lo*11/28/2017 Family history of colon cancer in father [Z80.0]11/28/2017 Encounter Status:Closed by MAL VELAZQUEZ on 04/17/[address] [facility] SURGICAL PATHOLOGYon [address] [facility] Comment on above: Order Comment: Specsukumar cruz Type: TISSUE SPECIMEN Ordering Facility: [facility] Address: [address] [place] [address] Result Comment: Surg [facility] Pathology Report Case: [id number] Authorizing Provider: Mal Velazquez MD Collected: 04/17/2022 02:10 PM Ordering Location: General Surgery Received: 04/17/2022 03:27 PM Pathologist: Laure Irvin MD Specimen: BREAST CORE BIOPSY RIGHT, Right Breast Performed By: #### S #### [facility] CLIA [id number] [address] [place] [address] [place] CLINICAL HISTORY Right Breast [facility] on above: Order Comment: Zoyai nancy Type: TISSUE SPECIMEN Ordering Facility: [facility] Address: [address] [place], [place] [id number] Performed By: #### S #### [facility] CLIA [id number] [address] [place] [address] [place] DIAGNOSIS COMMENT Multiple deeper leve ls were examined. Clinical and radiographic correlation is suggested. Normal [facility] Comment on above: Order Comment: Ernestine cruz Type: TISSUE SPECIMEN Ordering Facility: [facility] Address: [address] [place] [address] Performed By: #### S #### [facility] CLIA [id number] [address] [place] [address] [facility] Comment on above: Order Comment: Speci men Type: TISSUE SPECIMEN Ordering Facility: [facility] Address: [address] [place] [address] Result Comment: A. R ight breast, needle core biopsy: - Benign breast ducts with focal epithelial hypercellularity in a background of paucicellular stroma with prominent vasculature and scattered foci of chronic lymphocytic inflammation, compatible with gynecomastia in the proper clinical and radiographic context. GL/JVA 04/18/2022 Performed By: #### S #### [facility] CLIA [id number] [address] [place] [address] [address]ING LAB Normal [facility] Comment on above: Order Comment: Speci men Type: TISSUE SPECIMEN Ordering Facility: [facility] Address: [address] [place] [address] Result Comment: Diag nostic interpretation performed at [facility], [address] [place] [address] CLIA# [id number] Wildlife Ecologist: Nnamdi Burgos M.D. Performed By: #### S #### [facility] CLIA [id number] [address] [place] [address] GROSS DESCRIPTION Normal [facility] Comment on above: Order Comment: Speci men Type: TISSUE SPECIMEN Ordering Facility: [facility] Address: [address] [place] [address] Result Comment: A. B REAST CORE BIOPSY RIGHT Received in formalin labeled as right breast are multiple segments of cylindrical tissue aggregating to 1.2 x 0.5 x 0.2 cm, rick-yellow and of a soft consistency. The specimen was removed from the patient at 2:10 on 04/17/2022. On the same day, the specimen was placed in formalin at no time given. Totally submitted in formalin in one cassette. Gross examination performed at [facility], [address] [place] [address], [place] [id number] JT 04/17/2022 10:23 PM Performed By: #### S #### [facility] CLIA [id number] [address] [place] [address] DESK [id number] [id number] [place] US BREAST BIOPSY RIGHT (POC) SURG USE ONLYon 04-17-2022 [facility] CNOVon 04-10-2022 CNOV Office Visit (GENSWS ) JUNG COLEMAN ([id number]) 1945 M Date Time Provider Department 04/10/22 9:30 AM MAL VELAZQUEZ During your visit today, we recorded the following information about you: Pulse Blood pressure Weight Height 76/minute 136/84 79.3 kg 1.854 m Kirstie García RN 04/10/2022 9:38 AM Signed REVIEW OF SYSTEMS: General: The patient denies fatigue, denies weight loss, denies weight gain, denies feeling hot, and NOTES feelings of cold. Eyes: The patient denies glaucoma, denies eye injury/surgery, does not wear glasses or contacts. Ear/Nose/Throat: The patient denies allergies, denies hayfever, denies ear infections, and denies bloody noses. Cardiovascular: The patient denies chest pain, denies heart disease, NOTES high blood pressure,denies cardiac stent, denies prior heart attack, denies irregular heart beat, denies high cholesterol, denies poor circulation, denies heart failure, other cardiac issues, denies claudication, denies cold feet, denies peripheral arterial stent. Respiratory: The patient denies tuberculosis, denies pneumonia, denies frequent cough, denies pulmonary embolism, denies shortness of breath, and denies coughing up blood. Gastrointestinal: The patient denies difficulty swallowing, NOTES acid reflux, denies ulcers, denies vomiting, NOTES jaundice/hepatitis, denies gallbladder problems, denies black or tarry stools, denies hemorrhoids, denies bleeding from rectum, denies diverticulitis, denies constipation, denies diarrhea, denies loss of stool control, and NOTES hernias. Kidney/Bladder: The patient denies kidney stones, denies urine infections, and denies bloody urine. Skin: The patient denies a history of skin cancer, denies bleeding/changing moles, and denies a history of skin rash. Neurologic: The patient denies a history of epilepsy/convulsions, denies headaches, denies head/spinal injuries, and denies stroke/TIA. Psychiatric: The patient denies psychiatric medications, denies depression, and denies voices, denies substance abuse. Endocrine: The patient denies thyroid disorders, denies diabetes, and denies hormonal problems. Hematologic: The patient denies a history of bruising, denies bleeding, and denies anemia, denies blood clots. Infections: The patient denies a history of measles and mumps, denies rheumatic fever, and denies sexually transmitted diseases. Musculoskeletal: The patient denies back pain/injury, denies back problems, denies sciatica, denies knee/foot trouble, denies arthritis, or denies gout. When was patient's last Mammogram screening? 2021 Last Colonoscopy: 2017 HEATHER Crabtree III, MD 04/10/2022 3:18 PM Signed HISTORY AND PHYSICAL - BREAST COMPLAINT Jung Coleman 1945 REFERRING PHYSICIAN: Francheska Alonzo DO CHIEF COMPLAINT: Right-sided breast mass HPI: The patient is a 76 year old male with a complaint of a palpable breast mass. The patient notes a mass in the retroaerolar portion of her right breast. The patient has noticed this mass for several months.. The patient had a mammogram with ultrasound on 04/05/2022 which demonstrated findings consistent with prominent gynecomastia on the right side but some also located on the left side as well.. She does perform a self breast exam routinely. She notes no skin changes. She denies nipple discharge. She notes no axillary masses. She notes no family history of breast problems. She notes no significant breast trauma or breast difficulties in the past. The patient is being seen by me today at the request of Dr. Francheska Alonzo, for my opinion and advice regarding Subareolar mass of right breast (primary encounter diagnosis). PAST MEDICAL HISTORY Diagnosis Date - BPH (benign prostatic hypertrophy) with urinary retention - Coronary artery disease - Hypertension PAST SURGICAL HISTORY Procedure Laterality Date - APPENDECTOMY - COLONOSCOPY - COLONOSCOPY FLX DX W/COLLJ SPEC WHEN PFRMD 12/16/2017 Colonoscopy - ESOPHAGOGASTRODUODENOSCOPY TRANSORAL DIAGNOSTIC 12/16/2017 EGD - HERNIA REPAIR HX 05/10/2017 - PNXR ASPIR HYDROCELE TUNICA VAGIS W/WO NJX MED - THYROIDECTOMY TOTAL/COMPLETE 09/09/2009 - TRURL ELECTROSURG RESCJ PROSTATE BLEED COMPLETE 05/10/2016 Current Outpatient Medications Medication Sig Dispense Refill - atorvastatin (LIPITOR) 20 mg tablet Take 20 mg by mouth once daily. - lisinopril (ZESTRIL, PRINIVIL) 5 mg tablet Take 5 mg by mouth once daily. - famotidine (PEPCID) 20 mg tablet Take 40 mg by mouth DAILY AT 6 PM. - Cholecalciferol, Vitamin D3, 5,000 unit Tab Take 1 tablet by mouth once daily. 0 - Coenzyme Q10 (COQ-10) 100 mg Cap Take 1 capsule by mouth once daily. 0 - Ascorbic Acid (VITAMIN C) 500 mg ORAL CpER Take 1 tablet by mouth twice daily. 0 - Multivitamin ORAL capsule Take 1 capsule by mouth once daily. 0 (more content not included)... Normal [facility] CBC, PLATELETS & MANUAL DIFF (02061)Ordered By: Standards Analyst on 06-05-2021 Basophils (Bld) [#/Vol] 0.1 10*3/uL Normal 0.0-0.2 [facility]; [facility] Work Phone: Comment on above: PATIENT WAS FASTINGP ERFORMED BY: [facility] Jubsit0327 [facility] [id number] Information: NURSE DRAW; wellness labs Basophils/100 WBC (Bld) 1 % Normal [facility]; [facility] Work Phone: Comment on above: PATIENT WAS FASTINGP ERFORMED BY: [address] [id number] Information: NURSE DRAW; wellness labs Eosinophils (Bld) [#/Vol] 0.3 10*3/uL Normal 0.0-0.4 [facility]; [facility] Work Phone: Comment on above: PATIENT WAS FASTINGP ERFORMED BY: [address] [id number] Information: NURSE DRAW; wellness labs Eosinophils/100 WBC (Bld) 4 % Normal [facility]; [facility] Work Phone: Comment on above: PATIENT WAS FASTINGP ERFORMED BY: [address] [id number] Information: NURSE DRAW; wellness labs Erythrocyte distribution width (RBC) [Ratio] 12.3 % Normal 11.6-15.4 [facility]; [facility] Work Phone: Comment on above: PATIENT WAS FASTINGP ERFORMED BY: [address] [id number] Information: NURSE DRAW; wellness labs Hematocrit (Bld) [Volume fraction] 47.4 % Normal 37.5-51.0 [facility]; [facility] Work Phone: Comment on above: PATIENT WAS FASTINGP ERFORMED BY: [address] [id number] Information: NURSE DRAW; wellness labs Hemoglobin (Bld) [Mass/Vol] 16.0 g/dL Normal 13.0-17.7 [facility]; [facility] Work Phone: Comment on above: PATIENT WAS FASTINGP ERFORMED BY: [address] [id number] Information: NURSE DRAW; wellness labs Immature granulocytes (Bld) [#/Vol] 0.0 10*3/uL Normal 0.0-0.1 [facility]; [facility] Work Phone: Comment on above: PATIENT WAS FASTINGP ERFORMED BY: [address] [id number] Information: NURSE DRAW; wellness labs Immature granulocytes/100 WBC (Bld) 0 % Normal [facility]; [facility] Work Phone: Comment on above: PATIENT WAS FASTINGP ERFORMED BY: [address] [id number] Information: NURSE DRAW; wellness labs Lymphocytes (Bld) [#/Vol] 1.5 10*3/uL Normal 0.7-3.1 [facility]; [facility] Work Phone: Comment on above: PATIENT WAS FASTINGP ERFORMED BY: [address] [id number] Information: NURSE DRAW; wellness labs Lymphocytes/100 WBC (Bld) 19 % Normal [facility]; [facility] Work Phone: Comment on above: PATIENT WAS FASTINGP ERFORMED BY: [address] [id number] Information: NURSE DRAW; wellness labs MCH (RBC) [Entitic mass] 33.7 pg Abnormal 26.6-33.0 [facility]; [facility] Work Phone: Comment on above: PATIENT WAS FASTINGP ERFORMED BY: [address] [id number] Information: NURSE DRAW; wellness labs MCHC (RBC) [Mass/Vol] 33.8 g/dL Normal 31.5-35.7 [facility]; [facility] Work Phone: Comment on above: PATIENT WAS FASTINGP ERFORMED BY: [address] [id number] Information: NURSE DRAW; wellness labs MCV (RBC) [Entitic vol] 100 fL Abnormal 79-97 [facility]; [facility] Work Phone: Comment on above: PATIENT WAS FASTINGP ERFORMED BY: [address] [id number] Information: NURSE DRAW; wellness labs Monocytes (Bld) [#/Vol] 0.5 10*3/uL Normal 0.1-0.9 [facility]; [facility] Work Phone: Comment on above: PATIENT WAS FASTINGP ERFORMED BY: CLIFF Silva [id number] [facility] [id number] Information: NURSE DRAW; wellness labs Monocytes/100 WBC (Bld) 6 % Normal [facility]; [facility] Work Phone: Comment on above: PATIENT WAS FASTINGP ERFORMED BY: [place] [id number] [facility] [id number] Information: NURSE DRAW; wellness labs Neutrophils (Bld) [#/Vol] 5.3 10*3/uL Normal 1.4-7.0 [facility]; [facility] Work Phone: Comment on above: PATIENT WAS FASTINGP ERFORMED BY: [facility] Xosqdd6685 [facility] [id number] Information: NURSE DRAW; wellness labs Neutrophils/100 WBC (Bld) 70 % Normal [facility]; [facility] Work Phone: Comment on above: PATIENT WAS FASTINGP ERFORMED BY: [facility] Wraboy0435 [facility] [id number] Information: NURSE DRAW; wellness labs Platelets (Bld) [#/Vol] 226 10*3/uL Normal 150-450 [facility]; [facility] Work Phone: Comment on above: PATIENT WAS FASTINGP ERFORMED BY: [place] [id number] [facility] [id number] Information: NURSE DRAW; wellness labs RBC (Bld) [#/Vol] 4.75 10*6/uL Normal 4.14-5.80 [facility] Internal [facility]; [facility] Work Phone: Comment on above: PATIENT WAS FASTINGP ERFORMED BY: LabAllison [place] [id number] [facility] [id number] Information: NURSE DRAW; wellness labs WBC (Bld) [#/Vol] 7.6 10*3/uL Normal 3.4-10.8 [facility]; [facility] Work Phone: Comment on above: PATIENT WAS FASTINGP ERFORMED BY: CB [facility] Bwynak0229 [address] RoadDublin [place] [id number] Information: NURSE DRAW; wellness labs METABOLIC PANEL, COMPREHENSI VE (01027)Ordered By: Standards Analyst on 06-05-2021 Albumin [Mass/Vol] 4.7 g/dL Normal 3.7-4.7 [facility]; [facility] Work Phone: Comment on above: PATIENT WAS FASTINGP ERFORMED BY: CB [facility] Fiyscq5387 Rodas RoadDublin [place] [id number] Albumin/Globulin [Mass ratio] 2.2 {ratio} Normal 1.2-2.2 [facility]; [facility] Work Phone: Comment on above: PATIENT WAS FASTINGP ERFORMED BY: CB [facility] Thknxo2257 [address] RoadDublin [place] [id number] ALP [Catalytic activity/Vol] 89 U/L Normal 44-121 [facility]; [facility] Work Phone: Comment on above: Please note refere nce interval change PATIENT WAS FASTINGP ERFORMED BY: CB [facility] Rmundq4536 [address] RoadDublin [place] [id number] ALT [Catalytic activity/Vol] 15 U/L Normal 0-44 [facility]; [facility] Work Phone: Comment on above: PATIENT WAS FASTINGP ERFORMED BY: CB [facility] [id number] [address] RoadDublin [place] [id number] AST [Catalytic activity/Vol] 17 U/L Normal 0-40 [facility]; [facility] Work Phone: Comment on above: PATIENT WAS FASTINGP ERFORMED BY: CB [facility] Tzvxnt4954 [address] RoadDublin [place] [id number] Bilirubin [Mass/Vol] 0.3 mg/dL Normal 0.0-1.2 [facility]; [facility] Work Phone: Comment on above: PATIENT WAS FASTINGP ERFORMED BY: [facility] Iwfohj3575 Rod[address] Roadblin [place] [id number] Calcium [Mass/Vol] 9.7 mg/dL Normal 8.6-10.2 [facility]; [facility] Work Phone: Comment on above: PATIENT WAS FASTINGP ERFORMED BY: [facility] Rrsfsk6595 [address] Roadblin [place] [id number] Chloride [Moles/Vol] 104 mmol/L Normal 96-106 [facility]; [facility] Work Phone: Comment on above: PATIENT WAS FASTINGP ERFORMED BY: [facility] Gyakbj3236 Rod[address] Roadblin [place] [id number] CO2 [Moles/Vol] 21 mmol/L Normal 20-29 [facility]; [facility] Work Phone: Comment on above: PATIENT WAS FASTINGP ERFORMED BY: [facility] Efrqeo[address] [facility] [place] [id number] Creatinine [Mass/Vol] 1.00 mg/dL Normal 0.76-1.27 [facility]; [facility] Work Phone: Comment on above: PATIENT WAS FASTINGP ERFORMED BY: [facility] [facility] [place] [id number] GFR/1.73 sq M.predicted among blacks CKD-EPI (S/P/Bld) [Vol rate/Area] 84 mL/min/1.73 Normal [facility]; [facility] Work Phone: Comment on above: [facility] currently reports eGFR in compliance with the current recommendations of the National Kidney Foundation. [facility] will update reporting as new guidelines are published from the NKF-ASN Task force. PATIENT WAS FASTINGP ERFORMED BY: [facility] Sxokbg3433 [address] Roadblin [place] [id number] GFR/1.73 sq M.predicted among non-blacks CKD-EPI (S/P/Bld) [Vol rate/Area] 73 mL/min/1.73 Normal [facility]; [facility] Work Phone: Comment on above: PATIENT WAS FASTINGP ERFORMED BY: CLIFF [facility] Knhtex0730 [address] RoadDublin [place] [id number] Globulin (S) [Mass/Vol] 2.1 g/dL Normal 1.5-4.5 [facility]; [facility] Work Phone: Comment on above: PATIENT WAS FASTINGP ERFORMED BY: CLIFF [facility] Xzomex2718 [address] RoadDublin [place] [id number] Glucose [Mass/Vol] 87 mg/dL Normal 65-99 [facility]; [facility] Work Phone: Comment on above: PATIENT WAS FASTINGP ERFORMED BY: CLIFF [facility] Madfvs1922 [address] RoadDuin [place] [id number] Potassium [Moles/Vol] 4.0 mmol/L Normal 3.5-5.2 [facility]; [facility] Work Phone: Comment on above: PATIENT WAS FASTINGP ERFORMED BY: CLIFF [facility]rist[facility] Edchhw[address] [facility] [place] [id number] Protein [Mass/Vol] 6.8 g/dL Normal 6.0-8.5 [facility]; [facility] Work Phone: Comment on above: PATIENT WAS FASTINGP ERFORMED BY: CLIFF [facility] Bcqfsv1547 Rodas RoadDuin [place] [id number] Sodium [Moles/Vol] 139 mmol/L Normal 134-144 [facility]; [facility] Work Phone: Comment on above: PATIENT WAS FASTINGP ERFORMED BY: CB [facility] Nhuxcz1882 [address] RoadDublin [place] [id number] Urea nitrogen [Mass/Vol] 21 mg/dL Normal 8-27 [facility]; [facility] Work Phone: Comment on above: PATIENT WAS FASTINGP ERFORMED BY: CLIFF [facility] Wcsnfb05[address] [facility] HospitalDuin [place] [id number] Urea nitrogen/Creatinine [Mass ratio] 21 mg/mg Normal 10-24 [facility]; [facility] Work Phone: Comment on above: PATIENT WAS FASTINGP ERFORMED BY: CLIFF [facility] Ychzoi3378 [facility] [id number] Office Visit: hernia repair f/uon 04-30-2017 Documentation of current medications (procedure) Done Invalid Interpretation Code [facility] Surgical [employer] Work Phone: Fall risk assessment No Invalid Interpretation Code [facility] [employer] Work Phone: Tobacco smoking status NHIS Never Invalid Interpretation Code [facility] [employer] Work Phone: Tobacco use CPHS Never smoker Invalid Interpretation Code [facility] [employer] Work Phone: Office Visiton 04-15-2017 Documentation of current medications (procedure) Done Invalid Interpretation Code [facility] [employer] Work Phone: Fall risk assessment No Invalid Interpretation Code [facility] [employer] Work Phone: Tobacco smoking status NHIS Never Invalid Interpretation Code [facility] [employer] Work Phone: Tobacco use CPHS Never smoker Invalid Interpretation Code [facility] [employer] Work Phone: Flow Cytometryon 2017 Comment See Below Normal [facility] Comment on above: Result Comment: Viab ility 7AAD = 92%The B-cells are polytypic and the T-cells show no elmore T-cellantigen deletion. CD4/CD8 ratio is 1.8:1. CD56+ NK-cells andCD57+ T-LGL's are within normal limits. Performed By: #### F LOW ####[place] [address] Flow Cytometry Rslt: See Sep Report Normal [facility] Comment on above: Result Comment: Thes e tests were developed and their performance characteristicswere determined by [facility]. They may not becleared or approved by the U.S. Food and Drug Administration. TheFDA has determined that such clearance or approval is not neces-dary. These results may be used for clinical, investigational orfor research purposes, and should be interpreted with other rele-vant clinicopathologic data.Testing performed by: [facility] Naseem Jackson M.D., Wildlife Ecologist [address] [place] [id number] Performed By: #### F LOWG ####[place] [address] Interpretation: See Below Normal [facility] Comment on above: Result Comment: In t he sample analyzed, there is no evidence of B or T-celllymphoproliferative disorders. Performed By: #### F LOWG ####[place] [address] Flow Cytometryon 04-10-2017 Source: Blood Normal [facility] Comment on above: Performed By: #### F LOWG ####[place] [address] Green Venipunctureon 017 Green Venipuncture COMPLETED Normal [facility] Comment on above: Performed By: #### G VENP ####[place] [address] LD,Total Bloodon 04-09-2017 LD,Total Blood 207 U/L Normal 84-246 [facility] Comment on above: Performed By: #### L DH ####[place] [address] Oncology Hemogram/Diffon Basophils Auto #/vol (Bld) 0.04 thou/cmm Normal 0.00-0.08 [facility] Comment on above: Performed By: #### G OHEM ####[place] [address] Basophils/100 WBC Auto (Bld) 0.6 % Normal [facility] Comment on above: Performed By: #### G OHEM ####[address] [address] Eosinophils 0.35 thou/cmm Normal 0.00-0.36 [facility] Comment on above: Performed By: #### G OHEM ####[place] [address] Eosinophils/100 leukocytes 5.1 % Normal [facility] Comment on above: Performed By: #### G OHEM ####[place] [address] Erythrocyte distribution width Auto Ratio (RBC) 11.7 % Low 11.8-14.5 [facility] Comment on above: Performed By: #### G OHEM ####[place] [address] Erythrocytes (RBC) 4.68 mil/cmm Normal 4.22-5.80 [facility] Comment on above: Performed By: #### G OHEM ####[place] [address] Hematocrit (HCT) 44.7 % Normal 39.6-50.7 [facility] Comment on above: Performed By: #### G OHEM ####[place] [address] Hemoglobin mass conc (Bld) 16.2 g/dL Normal 13.2-17.4 [facility] Comment on above: Performed By: #### G OHEM ####[place] [address] Lymphocytes 1.63 thou/cmm Normal 0.68-2.93 [facility] Comment on above: Performed By: #### G OHEM ####[place] [address] Lymphocytes/100 leukocytes 24.0 % Normal [facility] Comment on above: Performed By: #### G OHEM ####[place] [address] MCH 34.6 pg High 27.4-32.8 [facility] Comment on above: Performed By: #### G OHEM ####[place] [address] MCHC mass conc (RBC) 36.2 % High 31.9-35.6 [facility] Comment on above: Performed By: #### G OHEM ####[facility] [place], [place] [address] MCV 95.5 fL Normal 81.8-95.6 [facility] Comment on above: Performed By: #### G OHEM ####[facility] [place], [place] [address] Monocytes 0.50 thou/cmm Normal 0.19-0.80 [facility] Comment on above: Performed By: #### G OHEM ####[address] [address] Monocytes/100 leukocytes 7.4 % Normal [facility] Comment on above: Performed By: #### G OHEM ####[address] [address] Platelet mean volume (PMV) 11.0 fL Normal 8.8-12.1 [facility] Comment on above: Performed By: #### G OHEM ####[place] [address] Platelets 201 thou/cmm Normal 150-370 [facility] Comment on above: Performed By: #### G OHEM ####[address] [address] Seg Neutrophil 62.9 % Normal [facility] Comment on above: Performed By: #### G OHEM ####[address] [address] Seg. Neut.# 4.28 thou/cmm Normal 1.35-7.21 [facility] Comment on above: Performed By: #### G OHEM ####[address] [address] WBC (Leukocytes) 6.8 thou/cmm Normal 4.4-9.7 [facility] Comment on above: Performed By: #### G OHEM ####[address] [address] Uric Acid Bloodon 04-09-2017 Uric Acid Blood 5.6 mg/dL Normal 3.5-7.2 [facility] Comment on above: Performed By: #### U OLIVIA ####[place] [address] Replaced Document: Siddharth FARAH Observationson 09-25-2016 electrocardiogram interpretation Sinus Rhythm Voltage criteria for LVH (R(V5) exceeds 2.60 mV). -Nonspecific ST depression -Seen with left ventricular hypertrophy (strain) or digitalis effect. ABNORMAL Invalid Interpretation Code [facility] [employer] Work Phone: GE use only - for LinkLogic import when terms are not otherwise specified 436 ms Invalid Interpretation Code [facility] [employer] Work Phone: P wave axis, electrocardiogram 69 deg Invalid Interpretation Code [facility] [employer] Work Phone: VA interval, electrocardiogram 170 ms Invalid Interpretation Code [facility] [employer] Work Phone: Pulse (Heart Rate) 66 /min Invalid Interpretation Code [facility] [employer] Work Phone: QRS axis, electrocardiogram 19 deg Invalid Interpretation Code [facility] [employer] Work Phone: QRS duration, electrocardiogram 94 ms Invalid Interpretation Code [facility] [employer] Work Phone: QT interval, electrocardiogram new path ms Invalid Interpretation Code [facility] [employer] Work Phone: T wave axis, electrocardiogram 41 deg Invalid Interpretation Code [facility] [employer] Work Phone: Clinical 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 Left ventricular Ejection fraction 55 % Invalid Interpretation Code [facility] [employer] Work Phone: Clinical 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-27-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 Cholesterol 191 mg/dL Invalid Interpretation Code [employer] Work Phone: HDL Cholesterol 76 mg/dL Invalid Interpretation Code [facility] [employer] Work Phone: LDL Cholesterol 101 mg/dL Invalid Interpretation Code [facility] [employer] Work Phone: Triglyceride 69 mg/dL Invalid Interpretation Code [facility] [employer] Work Phone: Office Visiton 09-23-2015 General cardiovascular disease 10Y risk [#] [place] no 6 % Invalid Interpretation Code [facility] [employer] Work Phone: Lab Report: Lipid Profileon 09-17-2015 very low density lipoproteins 12 mg/dL Invalid Interpretation Code 5-40 [facility] [employer] Work Phone: Lab Report: Liver Profileon 09-17-2015 Alanine aminotransferase (ALT) 28 U/L Invalid Interpretation Code 12-78 [facility] [employer] Work Phone: Albumin 3.8 g/dL Invalid Interpretation Code 3.4-5.0 [facility] [employer] Work Phone: Alkaline phosphatase (ALP) 75 U/L Invalid Interpretation Code 50-136 [facility] [employer] Work Phone: Aspartate aminotransferase (AST) 18 U/L Invalid Interpretation Code 15-37 [facility] [employer] Work Phone: Bilirubin (direct) 0.14 mg/dL Invalid Interpretation Code 0.00-0.30 [facility] [employer] Work Phone: Bilirubin (total) 0.50 mg/dL Invalid Interpretation Code 0.20-1.00 [facility] [employer] Work Phone: Globulin 3.4 g/dL Invalid Interpretation Code 2.3-3.5 [facility] [employer] Work Phone: Protein 7.2 g/dL Invalid Interpretation Code 6.4-8.2 [facility] [employer] Work Phone: Lab Reporton 07-02-2015 Chloride 105 mmol/L Invalid Interpretation Code [facility] [employer] Work Phone: CO2 23.0 mmol/L Invalid Interpretation Code [facility] [employer] Work Phone: Creatinine 1.19 mg/dL Invalid Interpretation Code [facility] [employer] Work Phone: Potassium 4.0 mmol/L Invalid Interpretation Code [facility] [employer] Work Phone: Sodium 140 mmol/L Invalid Interpretation Code [facility] [employer] Work Phone: Urea nitrogen 21 mg/dL Invalid Interpretation Code [facility] [employer] Work Phone: Office Visiton 08-17-2014 cardiac risk group B Invalid Interpretation Code [facility] [employer] Work Phone: Clinical 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-04-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 Anion gap 9 mmol/L Invalid Interpretation Code [facility] [employer] Work Phone: BUN/Creatinine Ratio 17.3 mg/mg Invalid Interpretation Code [facility] [employer] Work Phone: Erythrocytes (RBC) 4.56 10*6/uL Low [facility] [employer] Work Phone: Glucose 84 mg/dL Invalid Interpretation Code [facility] [employer] Work Phone: Hematocrit (HCT) 44.2 % Invalid Interpretation Code [facility] [employer] Work Phone: Hemoglobin (HGB) 15.9 g/dL Invalid Interpretation Code [facility] [employer] Work Phone: MCH 34.9 pg High [facility] [employer] Work Phone: MCHC 36.0 g/dL Invalid Interpretation Code [facility] [employer] Work Phone: MCV 96.9 fL High [facility] [employer] Work Phone: Platelets 225 10*3/mm3 Invalid Interpretation Code [facility] [employer] Work Phone: Thyroid stimulating hormone (TSH) 1.72 u[iU]/mL Invalid Interpretation Code [facility] [employer] Work Phone: WBC (Leukocytes) 5.6 10*3/uL Invalid Interpretation Code [facility] [employer] Work Phone: Clinical 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-06-2012 Albumin/Globulin Ratio 1.1 {ratio} Invalid Interpretation Code [facility] [employer] Work Phone: basophils as percent of blood leukocytes, manual count 0.9 % Invalid Interpretation Code [facility] [employer] Work Phone: Calcium 9.1 mg/dL Invalid Interpretation Code [facility] [employer] Work Phone: eosinophils as percent of blood leukocytes, manual count 7.1 % High [facility] [employer] Work Phone: Globulin 3.5 g/dL Invalid Interpretation Code [facility] [employer] Work Phone: Lymphocytes/100 leukocytes 26.3 % Invalid Interpretation Code [facility] [employer] Work Phone: Monocytes/100 leukocytes 6.5 % Invalid Interpretation Code [facility] Work Phone: neutrophils, band form as percent of blood leukocytes, manual count 59.2 % Invalid Interpretation Code [facility] Work Phone: Office Visiton 04-17-2012 Colonoscopy (procedure) Colonoscopy (procedure) Invalid Interpretation Code [facility] Work Phone: Vital Signs Date Time Vital Sign Value Performing Clinician Facility 06-03-2023 11:02-0400 Body height 185.[facility] Work Phone: 06-03-2023 11:02-0400 Body mass index (BMI) [Ratio] 23.27 kg/m2 [facility] Work Phone: 06-03-2023 11:02-0400 Body surface area Derived from formula 2.04 m2 [facility] Work Phone: 06-03-2023 11:02-0400 Body temperature 99 [degF] [facility] Work Phone: Comment on above: Method: Thermal Scan 06-03-2023 11:02-0400 Body weight 80 [facility] Work Phone: 06-03-2023 11:02-0400 Diastolic blood pressure 70 mm[Hg] [facility] Work Phone: Comment on above: Patient Position: Sitting; Cuff Location : Left Arm; Cuff Size: Standard 06-03-2023 11:02-0400 Heart rate 61 /min [facility] Work Phone: Comment on above: Pattern: Regular 06-03-2023 11:02-0400 Respiratory rate 16 /min [facility] Work Phone: Comment on above: Pattern: Unlabored 06-03-2023 11:02-0400 Systolic blood pressure 104 mm[Hg] Naida [place] [facility] Work Phone: Comment on above: Patient Position: Sitting; Cuff Location : Left Arm; Cuff Size: Standard 02-25-2023 10:38-0400 Body height 185.42 cm Naida [place] [facility] Work Phone: 02-25-2023 10:38-0400 Body mass index (BMI) [Ratio] 23.22 kg/m2 Naida [place] [facility] Work Phone: 02-25-2023 10:38-0400 Body surface area Derived from formula 2.04 m2 [facility] Work Phone: 02-25-2023 10:38-0400 Body temperature 98.2 [degF] [facility] Work Phone: Comment on above: Method: Thermal Scan 02-25-2023 10:38-0400 Body weight 79.83 kg Naida [place] [facility] Work Phone: 02-25-2023 10:38-0400 Diastolic blood pressure 70 mm[Hg] Naida [place] [facility] Work Phone: Comment on above: Patient Position: Sitting; Cuff Location : Left Arm; Cuff Size: Standard 02-25-2023 10:38-0400 Heart rate 63 /min Naida [place] [facility] Work Phone: Comment on above: Pattern: Regular 02-25-2023 10:38-0400 Respiratory rate 16 /min [facility] Work Phone: Comment on above: Pattern: Unlabored 02-25-2023 10:38-0400 SaO2% (BldA) [Mass fraction] 99 % [facility] Work Phone: Comment on above: Room air 02-25-2023 10:38-0400 Systolic blood pressure 118 mm[Hg] Naida [place] [facility]; [facility] Work Phone: Comment on above: Patient Position: Sitting; Cuff Location : Left Arm; Cuff Size: Standard 11-12-2022 10:23-0500 Body height 185.42 cm Naida [place] [facility] Work Phone: 11-12-2022 10:23-0500 Body mass index (BMI) [Ratio] 23.09 kg/m2 Naida [place] [facility]; [facility] Work Phone: 11-12-2022 10:23-0500 Body surface area Derived from formula 2.03 m2 Naida [place] [facility] Work Phone: 11-12-2022 10:23-0500 Body temperature 98.4 [degF] Naida [place] [facility]; [facility] Work Phone: Comment on above: Method: Thermal Scan 11-12-2022 10:23-0500 Body weight 79.38 kg Naida [place] [facility] Work Phone: 11-12-2022 10:23-0500 Diastolic blood pressure 68 mm[Hg] Naida [place] [facility] Work Phone: Comment on above: Patient Position: Sitting; Cuff Location : Left Arm; Cuff Size: Standard 11-12-2022 10:23-0500 Heart rate 70 /min Naida [place] [facility]; [facility] Work Phone: Comment on above: Pattern: Regular 11-12-2022 10:23-0500 Respiratory rate 16 /min Naida [place] [facility] Work Phone: Comment on above: Pattern: Unlabored 11-12-2022 10:23-0500 Systolic blood pressure 120 mm[Hg] Naida Moni [facility]; [facility] Work Phone: Comment on above: Patient Position: Sitting; Cuff Location : Left Arm; Cuff Size: Standard 07-30-2022 13:24-0500 Body height 185.42 cm Naida [place] [facility] Work Phone: 07-30-2022 13:24-0500 Body mass index (BMI) [Ratio] 22.69 kg/m2 Naida [place] [facility] Work Phone: 07-30-2022 13:24-0500 Body surface area Derived from formula 2.02 m2 Naida [place] [facility]; [facility] Work Phone: 07-30-2022 13:24-0500 Body temperature 97 [degF] Naida [place] [facility] Work Phone: Comment on above: Method: Thermal Scan 07-30-2022 13:24-0500 Body weight 78.02 kg Naida [place] [facility] Work Phone: 07-30-2022 13:24-0500 Diastolic blood pressure 72 mm[Hg] Naida [place] [facility]; [facility] Work Phone: Comment on above: Patient Position: Sitting; Cuff Location : Left Arm; Cuff Size: Standard 07-30-2022 13:24-0500 Heart rate 68 /min Naida [place] [facility]; [facility] Work Phone: Comment on above: Pattern: Regular 07-30-2022 13:24-0500 Respiratory rate 16 /min Naida [place] [facility]; [facility] Work Phone: Comment on above: Pattern: Unlabored 07-30-2022 13:24-0500 Systolic blood pressure 118 mm[Hg] Naida [place] [facility]; [facility] Work Phone: Comment on above: Patient Position: Sitting; Cuff Location : Left Arm; Cuff Size: Standard 04-10-2022 09:35-0400 Body height 185.4 cm Mal Velazquez MD Work Phone: [facility] 04-10-2022 09:35-0400 Body weight 79.29 kg Mal Velazquez MD Work Phone: [facility] 04-10-2022 09:35-0400 Diastolic blood pressure 84 mm[Hg] Mal Velazquez MD Work Phone: [facility] 04-10-2022 09:35-0400 Heart rate 76 /min Mal Velazquez MD Work Phone: [facility] 04-10-2022 09:35-0400 SaO2% (BldA) [Mass fraction] 98 % Mal Velazquez MD Work Phone: [facility] 04-10-2022 09:35-0400 Systolic blood pressure 136 mm[Hg] Mal Velazquez MD Work Phone: [facility] 03-23-2022 10:11-0400 Body height 185.42 cm [facility] Work Phone: 03-23-2022 10:11-0400 Body mass index (BMI) [Ratio] 22.69 kg/m2 [facility] Work Phone: 03-23-2022 10:11-0400 Body surface area Derived from formula 2.02 m2 Naida [place] [facility] Work Phone: 03-23-2022 10:11-0400 Body temperature 97 [degF] Naida [facility]; [facility] Work Phone: Comment on above: Method: Thermal Scan 03-23-2022 10:11-0400 Body weight 78.02 kg [facility] Work Phone: 03-23-2022 10:11-0400 Diastolic blood pressure 62 mm[Hg] [facility] Work Phone: Comment on above: Patient Position: Sitting; Cuff Location : Left Arm; Cuff Size: Standard 03-23-2022 10:11-0400 Heart rate 62 /min Naida [place] [facility]; [facility] Work Phone: Comment on above: Pattern: Regular 03-23-2022 10:11-0400 Respiratory rate 16 /min Naida [place] [facility] Work Phone: Comment on above: Pattern: Unlabored 03-23-2022 10:11-0400 Systolic blood pressure 104 mm[Hg] Naida [place] [facility] Work Phone: Comment on above: Patient Position: Sitting; Cuff Location : Left Arm; Cuff Size: Standard 01-24-2022 11:00-0400 Body height 185.42 cm Naida [place] [facility] Work Phone: 01-24-2022 11:00-0400 Body mass index (BMI) [Ratio] 22.69 kg/m2 Naida [place] [facility] Work Phone: 01-24-2022 11:00-0400 Body surface area Derived from formula 2.02 m2 Naida [place] [facility] Work Phone: 01-24-2022 11:00-0400 Body temperature 96.9 [degF] Naida [place] [facility] Work Phone: Comment on above: Method: Thermal Scan 01-24-2022 11:00-0400 Body weight 78.02 kg Naida [place] [facility] Work Phone: 01-24-2022 11:00-0400 Diastolic blood pressure 70 mm[Hg] Naida [place] [facility] Work Phone: Comment on above: Patient Position: Sitting; Cuff Location : Left Arm; Cuff Size: Standard 01-24-2022 11:00-0400 Heart rate 66 /min Naida [place] [facility] Work Phone: Comment on above: Pattern: Regular 01-24-2022 11:00-0400 Respiratory rate 16 /min Naida [place] [facility] Work Phone: Comment on above: Pattern: Unlabored 01-24-2022 11:00-0400 Systolic blood pressure 120 mm[Hg] Naida [place] [facility] Work Phone: Comment on above: Patient Position: Sitting; Cuff Location : Left Arm; Cuff Size: Standard 10-25-2021 11:38-0500 Body height 185.42 cm Naida [place] [facility] Work Phone: 10-25-2021 11:38-0500 Body mass index (BMI) [Ratio] 21.9 kg/m2 Naida [place] [facility] Work Phone: 10-25-2021 11:38-0500 Body surface area Derived from formula 1.99 m2 Naida [place] [facility] Work Phone: 10-25-2021 11:38-0500 Body temperature 97.1 [degF] Naida [place] [facility] Work Phone: Comment on above: Method: Thermal Scan 10-25-2021 11:38-0500 Body weight 75.3 kg Naida [place] [facility] Work Phone: 10-25-2021 11:38-0500 Diastolic blood pressure 70 mm[Hg] Naida [place] [facility] Work Phone: Comment on above: Patient Position: Sitting; Cuff Location : Left Arm; Cuff Size: Standard 10-25-2021 11:38-0500 Heart rate 70 /min Naida [place] [facility] Work Phone: Comment on above: Pattern: Regular 10-25-2021 11:38-0500 Respiratory rate 16 /min Naida [place] [facility]; [facility] Work Phone: Comment on above: Pattern: Unlabored 10-25-2021 11:38-0500 SaO2% (BldA) [Mass fraction] 97 % Naida [place] [facility] Work Phone: Comment on above: Room air 10-25-2021 11:38-0500 Systolic blood pressure 118 mm[Hg] Naida [place] [facility] Work Phone: Comment on above: Patient Position: Sitting; Cuff Location : Left Arm; Cuff Size: Standard 07-11-2021 09:27-0400 Body height 185.42 cm Francheska A Fast DO Work Phone: [facility] Work Phone: 07-11-2021 09:27-0400 Body mass index (BMI) [Ratio] 21.9 kg/m2 Francheska A Fast DO Work Phone: [facility] Work Phone: 07-11-2021 09:27-0400 Body surface area Derived from formula 1.99 m2 Francheska A Fast DO Work Phone: [facility] Work Phone: 07-11-2021 09:27-0400 Body temperature 97.6 [degF] Francheska A Fast DO Work Phone: [facility]; [facility] Work Phone: Comment on above: Method: Oral 07-11-2021 09:27-0400 Body weight 75.3 kg Francheska A Fast DO Work Phone: [facility] Work Phone: 07-11-2021 09:27-0400 Diastolic blood pressure 78 mm[Hg] Francheska A Fast DO Work Phone: [facility]; [facility] Work Phone: Comment on above: Patient Position: Sitting; Cuff Location : Left Arm; Cuff Size: Standard 07-11-2021 09:27-0400 Heart rate 99 /min Francheska A Fast DO Work Phone: [facility] Work Phone: Comment on above: Pattern: Regular 07-11-2021 09:27-0400 Respiratory rate 16 /min Francheska A Fast DO Work Phone: [facility] Work Phone: Comment on above: Pattern: Unlabored 07-11-2021 09:27-0400 Systolic blood pressure 116 mm[Hg] Francheska A Fast DO Work Phone: [facility] Work Phone: Comment on above: Patient Position: Sitting; Cuff Location : Left Arm; Cuff Size: Standard 05-16-2021 13:10-0400 Body height 185.42 cm Yoko Slarb [employer]ATER EDUCATION TEACHER [facility] Work Phone: 05-16-2021 13:10-0400 Body mass index (BMI) [Ratio] 22.3 kg/m2 Yoko Slarb [employer] EDUC[employer] TEACH[employer] [facility] Work Phone: 05-16-2021 13:10-0400 Body surface area Derived from formula 2 m2 Yoko Slarb [employer]ATER EDUC[employer] TEACH[employer] [facility] Work Phone: 05-16-2021 13:10-0400 Body temperature 97.6 [degF] Yoko Slarb [employer]ATER EDUCATION TEACHER [facility] Work Phone: 05-16-2021 13:10-0400 Body weight 76.66 kg Yoko Slarb [employer]ATER EDUCATION TEACHER [facility] Work Phone: 05-16-2021 13:10-0400 Diastolic blood pressure 76 mm[Hg] Yoko Slarb [employer]ATER EDUCATION TEACHER [facility] Work Phone: Comment on above: Patient Position: Sitting; Cuff Location : Left Arm; Cuff Size: Standard 05-16-2021 13:10-0400 Heart rate 78 /min Yoko Slarb [employer]ATER EDUCATION TEACHER [facility] Work Phone: Comment on above: Pattern: Regular 05-16-2021 13:10-0400 Respiratory rate 16 /min Yoko Slarb [employer]ATER EDUCATION TEACH[employer] [facility] Work Phone: Comment on above: Pattern: Unlabored 05-16-2021 13:10-0400 SaO2% (BldA) [Mass fraction] 99 % Yoko Slarb [employer]ATER EDUCATION TEACH[employer] [facility] Work Phone: Comment on above: Room air 05-16-2021 13:10-0400 Systolic blood pressure 138 mm[Hg] Yoko Slarb THEATER EDUCATION TEACHER [facility] Work Phone: Comment on above: Patient Position: Sitting; Cuff Location : Left Arm; Cuff Size: Standard 04-15-2017 15:15-0400 BMI (Body Mass Index) 20.67 kg/m2 Mal Velazquez MD [facility] Work Phone: 04-15-2017 15:15-0400 Body Temperature 97.4 [degF] Mal Velazquez MD [facility] Work Phone: 04-15-2017 15:15-0400 Body Temperature 97.39 [degF] Mal Velazquez MD [facility] Work Phone: 04-15-2017 15:15-0400 BP Diastolic 92 mm[Hg] Mal Velazquez MD [facility] Work Phone: 04-15-2017 15:15-0400 BP Systolic 155 mm[Hg] Mal Velazquez MD [facility] Work Phone: 04-15-2017 15:15-0400 Height 191.77 cm Mal Velazquez MD [facility] Work Phone: 04-15-2017 15:15-0400 Pulse (Heart Rate) 62 /min Mal Velazquez MD [facility] Work Phone: 04-15-2017 15:15-0400 Respiratory Rate 20 /min Mal Velazquez MD [facility] Work Phone: 04-15-2017 15:15-0400 Weight 76.02 kg Mal Velazquez MD [facility] Work Phone: 09-25-2016 09:58-0500 BSA (Body Surface Area) 2.08 m2 Mal Velazquez MD [facility] Work Phone: 08-28-2011 08:54-0500 Height 191.77 cm Mal Velazquez MD [facility] Work Phone: Encounters Encounter Date Encounter Type Care Provider Facility Start: 06-14-2023 End: 06-14-2023 Phone Encounter Francheska Fast DO Work Phone: [facility] Start: 06-07-2023 End: 06-07-2023 Annotation/Addendum Francheska Fast DO Work Phone: [facility] Start: 06-03-2023 End: 06-03-2023 Office outpatient visit 25 minutes Francheska Fast DO Work Phone: [facility] Start: 02-25-2023 End: 02-25-2023 Office outpatient visit 25 minutes Francheska Fast DO Work Phone: [facility] Start: 11-12-2022 ambulatory Francheska A Fast DO [facility] Start: 11-12-2022 End: 11-12-2022 Office outpatient visit 25 minutes Francheska Fast DO Work Phone: [facility] Start: 08-10-2022 End: 08-10-2022 Phone Encounter Francheska Fast DO Work Phone: [facility] Start: 07-30-2022 End: 08-05-2022 Patient encounter procedure Francheska Fast DO Work Phone: [facility] Start: 07-30-2022 Review Francheska Fast DO Work Phone: [facility] Start: 06-11-2022 End: 06-11-2022 Historical Summary Francheska Fast DO Work Phone: [facility] Start: 05-25-2022 End: 05-27-2022 Office outpatient visit 15 minutes Francheska Fast DO Work Phone: [facility] Start: 05-08-2022 End: 05-08-2022 Phone Encounter Francheska Fast DO Work Phone: [facility] Start: 04-17-2022 End: 04-17-2022 Patient encounter procedure Mal Velazquez MD Work Phone: General Surgery Comment on above: Subareolar mass of r ight breast (Primary Dx) Start: 04-10-2022 End: 04-10-2022 Patient encounter procedure Mal Velazquez MD Work Phone: General Surgery Comment on above: Subareolar mass of r ight breast (Primary Dx) Start: 03-23-2022 End: 03-25-2022 Office outpatient visit 15 minutes Francheska Fast DO Work Phone: [facility] Start: 01-24-2022 End: 01-28-2022 Office outpatient visit 25 minutes Francheska Fast DO Work Phone: [facility] Start: 01-24-2022 Review Francheska Fast DO Work Phone: [facility] Start: 01-15-2022 End: 01-15-2022 Phone Encounter Francheska Fast DO Work Phone: [facility] Start: 10-25-2021 End: 10-26-2021 Office outpatient visit 25 minutes Francheska Fast DO Work Phone: [facility] Start: 10-25-2021 Review Francheska Fast DO Work Phone: [facility] Start: 07-12-2021 End: 07-12-2021 Phone Encounter Francheska Fast DO Work Phone: [facility] Start: 07-11-2021 End: 07-11-2021 Office outpatient visit 25 minutes Francheska Fast DO Work Phone: [facility] Start: 06-05-2021 End: 06-06-2021 Phone Encounter Francheska Fast DO Work Phone: [facility] Start: 05-16-2021 End: 05-16-2021 Office outpatient visit 25 minutes Francheska Alonzo DO Work Phone: [facility] Start: 04-09-2017 End: 04-10-2017 Ambulatory ADRIANNA MCDUFFIE Facility:[facility] Procedures Date Procedure Procedure Detail Performing Clinician Start: 06-14-2023 End: 06-14-2023 Venous Duplex US - [place] Extrem Procedure Note: See Note; NOTES: [facility] [address] [place] [address] Venous Duplex US - [place] Extrem 06/14/23 0905 MR#: [id number] Acct: [id number] Name: JUNG COLEMAN Rep #: [id number] : 1945 78 From: Michele Hodgson MD Attending Dr: Dr. Francheska Alonzo, Status: REG CL I Ordering Dr: Francheska Alonzo DO Date: 06/14/23 Location: [facility] Sex: M C Admitted: Reason For Study: Bilateral leg edema RIGHT LEFT GSV is normal. GSV is normal. CFV is compressible, spontaneous, phasic, CFV is compressible, spontaneous, phasic, competent and demonstrates normal competent, and demonstrates normal augmentation. augmentation. FV is compressible, spontaneous, phasic, FV is compressible, spontaneous, phasic, competent and demonstrates normal competent and demonstrates normal augmentation. augmentation. POP V is compressible, spontaneous, phasic, POP V is compressible, spontaneous, phasic, competent and demonstrates normal competent and demonstrates normal augmentation. augmentation. T/P Trunk is compressible. T/P Trunk is compressible. PTV is compressible. PTV is compressible. RT PerV is compressible. LT PerV is compressible. Procedure This is a venous duplex using B-mode, color flow and spectral Doppler. Exam performed in department. A preliminary report was called and/or faxed to Dr. Alonzo. VL/Venous Duplex US - [place] Extrem Interpretation Summary No evidence for acute deep venous thrombosis bilateral lower extremities with patent and compressible bilateral great saphenous veins. Ordering Physician: Francheska Alonzo Referring Physician: Francheska Alonzo D.O. Performed By: Blanca Jones RVT 06/14/23 1225 Date __ Michele Hodgson MD CC: Dr. Francheska Alonzo DO Date Dictated: 06/14/23904 Date Transcribed: 06/14/231224 Airport Guide: Vanessa Alonzo DO Work Phone: Start: 02-25-2023 End: 02-25-2023 Gastroenterology Visit Report Procedure Note: See Note; NOTES: [facility] [address] [place] [address] OFFICE VISIT Date of Service: 02/25/23 MR#: [id number] Acct: [id number] Name: JUNG COLEMAN Rep #: [id number] : 1945 Provider: RAJESH Garirdo Age/Sex: 77/M [place] [facility] [place] Status: Signed Intake Vital Signs 01/14/23 13:34 02/13/23 06:48 Height 6 ft 6 ft Intake Visit Reasons: 2 WK FU Chief Complaint: Follow up Allergies No Known Allergies Allergy (Verified 02/25/23 12:53) Medications coenzyme Q10 30 mg capsule 30 mg PO DAILY 05/21/16 [History Confirmed 02/25/23] multivitamin 1 ea PO DAILY 05/21/16 [History Confirmed 02/25/23] cyanocobalamin (vitamin B-12) 2,000 mcg tablet 2,000 mcg PO DAILY 04/22/17 [History Confirmed 02/25/23] ascorbic acid (vitamin C) 1,000 mg tablet 1 g PO QDAY 09/25/17 [History Confirmed 02/25/23] s-adenosylmethionine 400 mg tablet 800 mg PO DAILY 10/10/21 [History Confirmed 02/25/23] dexlansoprazole 60 mg capsule,biphase delayed release (Dexilant) 60 mg PO DAILY 01/08/22 [History Confirmed 02/25/23] iron 40 mg capsule 45 mg PO DAILY 01/08/22 [History Confirmed 02/25/23] diazepam 5 mg tablet 5 mg PO PRN PRN Stomach Upset 10/16/22 [History Confirmed 02/25/23] melatonin 12 mg tablet 12 mg PO QHS 10/16/22 [History Confirmed 02/25/23] rosuvastatin 10 mg tablet 20 mg PO DAILY 10/16/22 [History Confirmed 02/25/23] lisinopril 5 mg tablet 5 mg PO DAILY #90 tabs 10/22/22 [Rx Confirmed 02/25/23] aspirin-sod bicarb-citric acid 325 mg-1,916 mg-1,000 mg efferves tab ([place] Original) 1 tab PO PRN PRN BLOATING 11/30/22 [History Confirmed 02/25/23] PFSH Medical History Alcohol use Arthritis Back pain Onofre esophagus Cardiology follow-up encounter Chronic renal insufficiency Essential (primary) hypertension Gastric reflux Gastritis GERD (gastroesophageal reflux disease) Hepatitis High cholesterol History of echocardiogram History of edema History of stress test Hx of colonic polyp Hyperlipidemia Mitral valve annular calcification Non-smoker Normal stress echocardiogram Palpitations Raynaud disease Wears glasses Surgical History History of cardiac catheterization History of esophagogastroduodenoscopy (EGD) History of hydrocelectomy Hx of appendectomy Hx of colonoscopy Hx of foot surgery Hx of hernia repair Hx of transurethral resection of prostate Family History Father Cancer Mother , age 72 CAD (coronary artery disease) Hypertension Social History Smoking Status: Never smoker alcohol intake: current alcohol intake frequency: 0-2 drinks per day substance use type: does not use caffeine: Yes Type: coffee Number of servings: 4 HPI HPI Chief Complaint: Follow up Details: JUNG COLEMAN, is a 77 M who presents to the office today for f/u EGD that was indicated for hx Onofre's esophagus. His 2021 EGD was positive for Onofre's. The 2022 EGD is also positive for Onofre's; negative for dysplasia; he has a hiatal hernia. He take Dexilant 60 mg daily and famotidine 40 mg qhs. His acid reflux is well controlled (except if he consumes chocolate or red wine). His father had colon cancer in his early 60???s. 2021 Colonoscopy found 5mm polyp (no pathology on bx) in descending colon; diverticulosis in RS, sigmoid and descending colons; impaction of appendiceal orifice with hard stool, most of this was removed, concern for future appendicitis. 02/13/23 EGD Impression: ? - Esophageal mucosal changes secondary to ? established short-segment Onofre's disease. ? Biopsied. ? - Hiatal hernia. ? - No gross lesions in the second portion of the ? duodenum. MICROSCOPIC DIAGNOSIS Distal esophagus, biopsy: Fragments of gastroesophageal mucosa with focal intestinal metaplasia (goblet cell metaplasia), consistent with Onofre's esophagus. Chronic inflammation. Negative for dysplasia ROS Const Constitutional: Positive for weight change; No fatigue ENT ENT: No difficulty swallowing Gastro GI: Positive for bloating, heartburn and excessive flatus; No abdominal pain, belching, change in bowel habits, change in stool character, coffee ground emesis, constipation, cramping, diarrhea, difficulty swallowing, feeling full early, incontinent of stools, Vomiting blood/hematemesis, Blood in stool, loose stools, Black,tarry stools, nausea/dyspepsia, pain with swallowing, vomiting or other Musc Musculoskeletal: Positive for joint pain, joint swelling, stiffness and Arthritis Skin Skin: No yellowing of the eye or itchy eyes Psych Psychiatric: No anxiety and No depression Endo Endocrine: Positive for weight change; No fatigue Aller/Imm Allergy/Immunologic: No itchy eyes Tang/Lymp Hematologic/Lymphatic: No easy bleeding or easy bruising Exam Const General: cooperative, healthy appearing and comfortable Nutritional Appearance: average body habitus Orientation: alert, awake and oriented x3 Quality Reporting Tobacco Screening ([facility] 138) Smoking Status: Never smoker Assessment and Plan Assessment and Plan (1) Onofre esophagus: Status: Chronic Plan: Discussed EGD findings, positive for Onofre's still, negative for dysplasia, continue PPI and I0flhffph Ok to try meloxicam for OA Repeat EGD one yr Coding Level of Care Code Off vis,est,level 3 Diagnoses Onofre esophagus K22.70 02/25/23 1305 <Electronically signed by Alicia Garrido SENIOR CARE MANAGER SENIOR CARE MANAGER-C> Date __ Alicia Garrido NP SENIOR CARE MANAGER-C Cosigner Signature: Date __ (if applicable) CC: Dr. Francheska Alonzo, DO Francheska Alonzo DO Work Phone: Start: 02-13-2023 End: 02-13-2023 EGD Report Procedure Note: See Note; NOTES: [facility] Medical Records Department [address] [place] [address] EGD Report MR#: [id number] Acct: [id number] Name: JUNG COLEMAN Rep #: [id number] : 1945 77 From: David Parra DO PCP: Dr. Francheska Alonzo DO [place] [place] Patient Name: Jung Coleman Procedure Date: 02/13/2023 7:50 AM Date of : 1945 Age: 77 Procedure: Upper GI endoscopy Indications: Follow-up of Onofre's esophagus Providers: David Parra DO Referring MD: David Parra DO Medicines: Monitored Anesthesia Care Patient Profile: This is a 77 year old male. Refer to note in patient chart for documentation of history and physical. Patient has symptoms of chronic heartburn. Complications: No immediate complications. Procedure: Pre-Anesthesia Assessment: - Prior to the procedure, a History and Physical was performed, and patient medications and allergies were reviewed. The patient is competent. The risks and benefits of the procedure and the sedation options and risks were discussed with the patient. All questions were answered and informed consent was obtained. Patient identification and proposed procedure were verified by the physician in the pre-procedure area. Mental Status Examination: alert and oriented. Airway Examination: normal oropharyngeal airway and neck mobility. Respiratory Examination: clear to auscultation. CV Examination: normal. Prophylactic Antibiotics: The patient does not require prophylactic antibiotics. Prior Anticoagulants: The patient has taken no previous anticoagulant or antiplatelet agents. After reviewing the risks and benefits, the patient was deemed in satisfactory condition to undergo the procedure. The anesthesia plan was to use monitored anesthesia care (MAC). Immediately prior to administration of medications, the patient was re-assessed for adequacy to receive sedatives. The heart rate, respiratory rate, oxygen saturations, blood pressure, adequacy of pulmonary ventilation, and response to care were monitored throughout the procedure. The physical status of the patient was re-assessed after the procedure. After obtaining informed consent, the endoscope was passed under direct vision. Throughout the procedure, the patient's blood pressure, pulse, and oxygen saturations were monitored continuously. The gastroscope was introduced through the mouth, and advanced to the second part of duodenum. The upper GI endoscopy was accomplished without difficulty. The patient tolerated the procedure well. Scope In: 8:03:07 AM Scope Out: 8:05:53 AM Total Procedure Duration Time 0 hours 2 minutes 46 seconds Findings: There were esophageal mucosal changes secondary to established short-segment Onofre's disease present in the lower third of the esophagus. The maximum longitudinal extent of these mucosal changes was 1 cm in length. Mucosa was biopsied with a cold forceps for histology in a targeted manner at intervals of 1 cm in the lower third of the esophagus. One specimen bottle was sent to pathology. Verification of patient identification for the specimen was done. Estimated blood loss was minimal. A hiatal hernia was present. No other significant abnormalities were identified in a careful examination of the stomach. No gross lesions were noted in the second portion of the duodenum. Impression: - Esophageal mucosal changes secondary to established short-segment Onofre's disease. Biopsied. - Hiatal hernia. - No gross lesions in the second portion of the duodenum. Recommendation: - Discharge patient to home. - Resume previous diet. - Continue present medications. - Await pathology results. - Repeat upper endoscopy for surveillance based on pathology results. Procedure Code(s): --- Professional --- 44328, Esophagogastroduodenoscopy, flexible, transoral; with biopsy, single or multiple CPT copyright 2017 [employer]. All rights reserved. The codes documented in this report are preliminary and upon auditor/quality review may be revised to meet current compliance requirements. David Parra DO 02/13/2023 8:10:49 AM This report has been signed electronically. Number of Addenda: 0 Note Initiated On: 02/13/2023 7:50 AM 02/13/23 0810 Date __ David Parra DO Cosigner Signature: Date __ (if indicated) CC: Dr. Francheska Alonzo DO; David Parra DO Date Dictated: 02/13/23749 Date Transcribed: Airport Guide: PRAVIN Signed Francheska Alonzo DO Work Phone: Start: 02-13-2023 End: 02-13-2023 History and Physical Exam Procedure Note: See Note; NOTES: [facility] Medical Records Department [address] [place] [address] History Physical Exam 02/13/23752 MR#: [id number] Acct: [id number] Name: JUNG COLEMAN Rep #: [id number] : 1945 77 From: David Friend DO PCP: Dr. Francheska Alonzo, DO Status[place] [place] Location: [place] [address] History and Physical Date of Admission: 02/13/23 77 M who presents to the office today for f/u Onofre's, GERD, bloating. Last year he reported bloating had resolved with addition of probiotic. No longer taking probiotic. Gets bloating one hour after eating, better if he avoids high FODMAP foods. Takes Dexilant qam and famotidine 40 mg qpm, acid reflux is pretty well controlled (except if he consumes chocolate or red wine). Jung established with this clinic 3.09.30 for screening colonoscopy evaluation. His age puts him past open access scheduling. His father had colon cancer in his early 60???s. Hx of iron deficiency. EGD and colonoscopy performed .12.29. 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 H.Pylori negative. Colonoscopy found 5mm polyp (no pathology on bx) in descending colon; diverticulosis in RS, sigmoid and descending colons; impaction of appendiceal orifice with hard stool, most of this was removed, concern for future appendicitis. ROS Const Constitutional: No fatigue ENT ENT: No difficulty swallowing Gastro GI: Positive for bloating, heartburn and excessive flatus; No abdominal pain, belching, change in bowel habits, change in stool character, coffee ground emesis, constipation, cramping, diarrhea, difficulty swallowing, feeling full early, incontinent of stools, Vomiting blood/hematemesis, Blood in stool, loose stools, Black,tarry stools, nausea/dyspepsia, pain with swallowing, vomiting or other Musc Musculoskeletal: Positive for joint pain, back pain, stiffness and Arthritis Skin Skin: No yellowing of the eye or itchy eyes Psych Psychiatric: No anxiety and No depression Endo Endocrine: No fatigue Aller/Imm Allergy/Immunologic: No itchy eyes Tang/Lymp Hematologic/Lymphatic: No easy bleeding or easy bruising Exam Const General: cooperative, healthy appearing and comfortable Nutritional Appearance: average body habitus Orientation: alert, awake and oriented x3 Quality Reporting Tobacco Screening ([facility] 138) Smoking Status: Never smoker Assessment and Plan Assessment and Plan (1) 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 There are no clinical changes since date of exam. 02/13/23 0759 <Electronically signed by David Parra DO> Cosigner Signature (if applicable): CC: Dr. Francheska Alonzo DO; David Parra DO Signed Francheska Alonzo DO Work Phone: Start: 01-14-2023 End: 01-14-2023 Gastroenterology Visit Report Procedure Note: See Note; NOTES: [facility] Gastroenterology [address] [place] [address] OFFICE VISIT Date of Service: 01/14/23 MR#: [id number] Acct: [id number] Name: JUNG COLEMAN Rep #: [id number] : 1945 Provider: RAJESH Garrido Age/Sex: 77/M [place] [facility] [place] Status: Signed Intake Vital Signs 01/10/22 10:18 12/03/22 10:08 01/14/23 13:34 Height 6 ft 1 in 6 ft 0.83 in 6 ft Weight: 166 lb 160 lb BMI 21.7 BP 133/79 H Blood Pressure Location Rt brachial Position Sitting Pulse 61 Pulse Oximetry (%) 98 Oxygen Delivery Method room air Intake Visit Reasons: 1 YR FU Chief Complaint: Follow up Allergies No Known Allergies Allergy (Verified 01/14/23 13:30) Medications coenzyme Q10 30 mg capsule 30 mg PO DAILY 05/21/16 [History Confirmed 01/14/23] multivitamin 1 ea PO DAILY 05/21/16 [History Confirmed 01/14/23] cyanocobalamin (vitamin B-12) 2,000 mcg tablet 2,000 mcg PO DAILY 04/22/17 [History Confirmed 01/14/23] ascorbic acid (vitamin C) 1,000 mg tablet 1 g PO QDAY 09/25/17 [History Confirmed 01/14/23] s-adenosylmethionine 400 mg tablet 800 mg PO DAILY 10/10/21 [History Confirmed 01/14/23] dexlansoprazole 60 mg capsule,biphase delayed release (Dexilant) 60 mg PO DAILY 01/08/22 [History Confirmed 01/14/23] iron 40 mg capsule 45 mg PO DAILY 01/08/22 [History Confirmed 01/14/23] diazepam 5 mg tablet 5 mg PO DAILY stomach 10/16/22 [History Confirmed 01/14/23] melatonin 12 mg tablet 12 mg PO QHS 10/16/22 [History Confirmed 01/14/23] rosuvastatin 10 mg tablet 10 mg PO DAILY 10/16/22 [History Confirmed 01/14/23] lisinopril 5 mg tablet 5 mg PO DAILY #90 tabs 10/22/22 [Rx Confirmed 01/14/23] aspirin-sod bicarb-citric acid 325 mg-1,916 mg-1,000 mg efferves tab ([place] Original) 1 tab PO DAILY 11/30/22 [History Confirmed 01/14/23] aspirin 81 mg capsule 81 mg PO DAILY 12/03/22 [History Confirmed 01/14/23] [facility] Medical History (Updated 01/14/23 @ 13:48 by Alicia Garrido SENIOR CARE MANAGER, SENIOR CARE MANAGER-C) Alcohol use Arthritis Back pain Onofre esophagus Cardiology follow-up encounter Chronic renal insufficiency Essential (primary) hypertension Gastric reflux Gastritis GERD (gastroesophageal reflux disease) Hepatitis High cholesterol History of echocardiogram History of edema History of stress test Hx of colonic polyp Hyperlipidemia Mitral valve annular calcification Non-smoker Palpitations Raynaud disease Wears glasses Surgical History History of hydrocelectomy Hx of appendectomy Hx of colonoscopy Hx of foot surgery Hx of hernia repair Hx of transurethral resection of prostate Family History Father Cancer Mother , age 72 CAD (coronary artery disease) Hypertension Social History Smoking Status: Never smoker alcohol intake: current alcohol intake frequency: 0-2 drinks per day substance use type: does not use caffeine: Yes Type: coffee Number of servings: 4 HPI HPI Chief Complaint: Follow up Details: JUNG COLEMAN, is a 77 M who presents to the office today for f/u Onofre's, GERD, bloating. Last year he reported bloating had resolved with addition of probiotic. No longer taking probiotic. Gets bloating one hour after eating, better if he avoids high FODMAP foods. Takes Dexilant qam and famotidine 40 mg qpm, acid reflux is pretty well controlled (except if he consumes chocolate or red wine). Jung established with this clinic 3.09.30 for screening colonoscopy evaluation. His age puts him past open access scheduling. His father had colon cancer in his early 60???s. Hx of iron deficiency. EGD and colonoscopy performed 01.10.22. 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 H.Pylori negative. Colonoscopy found 5mm polyp (no pathology on bx) in descending colon; diverticulosis in RS, sigmoid and descending colons; impaction of appendiceal orifice with hard stool, most of this was removed, concern for future appendicitis. ROS Const Constitutional: No fatigue ENT ENT: No difficulty swallowing Gastro GI: Positive for bloating, heartburn and excessive flatus; No abdominal pain, belching, change in bowel habits, change in stool character, coffee ground emesis, constipation, cramping, diarrhea, difficulty swallowing, feeling full early, incontinent of stools, Vomiting blood/hematemesis, Blood in stool, loose stools, Black,tarry stools, nausea/dyspepsia, pain with swallowing, vomiting or other Musc Musculoskeletal: Positive for joint pain, back pain, stiffness and Arthritis Skin Skin: No yellowing of the eye or itchy eyes Psych Psychiatric: No anxiety and No depression Endo Endocrine: No fatigue Aller/Imm Allergy/Immunologic: No itchy eyes Tang/Lymp Hematologic/Lymphatic: No easy bleeding or easy bruising Exam Const General: cooperative, healthy appearing and comfortable Nutritional Appearance: average body habitus Orientation: alert, awake and oriented x3 Quality Reporting Tobacco Screening ([facility] 138) Smoking Status: Never smoker Assessment and Plan Assessment and Plan (1) Onofre esophagus: Status: Chronic Plan: Schedule EGD to reeval Onofre's Continue dexilant and famotidine Coding Level of Care Code Off vis,est,level 2 Diagnoses Onofre esophagus K22.70 01/14/23 1352 <Electronically signed by Alicia Garrido NP SENIOR CARE MANAGER-C> Date __ Alicia Garrido NP SENIOR CARE MANAGER-C Cosigner Signature: Date __ (if applicable) CC: Dr. Francheska Alonzo, DO Francheska Alonzo DO Work Phone: Start: 12-03-2022 End: 12-03-2022 Operative Report Procedure Note: See Note; NOTES: [facility] Medical Records Department [address] [place] [address] Operative Report 12/03/22 1227 MR#: [id number] Acct: [id number] Name: JUNG COLEMAN Rep #: [id number] : 1945 77 From: Sd Kirk MD PCP: Dr. Francheska Alonzo, Status:[facility] [place] Location: [facility] Report of Operation Date of Procedure: 12/03/22 Pre-Operative Diagnosis: CAD Post-Operative Diagnosis: CAD Surgery/Procedure Performed:: iFR of LAD and Ramus Description of Surgical Findings:: iFR in the Ramus = 0.99 iFR in the LAD = 0.91 These findings are consistent with stenoses that can be treated medically at this time. Surgeon: Sd Kirk Estimated Blood Loss (mL): 5ml Description of Procedure: The left main was engaged with a JL 3.5 guide catheter and iFR was measured in the LAD and Ramus. Patient tolerated the procedure well and there were no complications. Complications None 12/03/22 1230 <Electronically signed by Sd Kirk MD> Cosigner Signature (if applicable): CC: Dr. Petros Valdez MD; Dr. Francheska Alonzo DO; Dr. Sd Kirk MD Signed Francheska Alonzo DO Work Phone: Start: 12-03-2022 End: 12-03-2022 Cardiac Cath Diagnostic Procedure Note: See Note; NOTES: [facility] Imaging Services [address] [place] [id number] Cardiac Cath Diagnostic MR#: [id number] Acct: [id number] Name: JUNG COLEMANOLPH Rep #: [id number] : 1945 77 From: Petros Valdez MD PCP: Dr. Francheska Alonzo DO Status:[facility] [place] Patient Name: JUNG COLEMAN Study Date: 12/03/2022 Performing: Petros Valdez MD Ht: 73 inches 185.42 cm : 1945 Wt: 166.01 lbs 75.3 kg Age: 77 Gender: male BSA: 1.99 PROCEDURE(S) PERFORMED DC01-(43710)LHC/COR/LV IC10-(96581)FFR, CORONARY OR GRAFT, INITIAL VESSEL IC11-(96740)FFR, CORONARY OR GRAFT, EACH ADD'L VESSEL CLINICAL PROFILE AND INDICATIONS Indications: Suspected CAD Heart Failure: None Stress/Imaging Coronary Calcium Score: Yes Calcium Score: 1800Calcium Score: 1800 CAD Presentations: No Sxs, no angina. CONCLUSIONS Non obstructive coronary arteries RECOMMENDATIONS Aggressive medical therapy, increase lipid-lowering DESCRIPTION OF PROCEDURE The patient arrived to the procedure lab. The risks and benefits of the procedure as well as a full description of our services here and current unavailability of surgical backup were fully explained to the patient and/or their significant other prior to the catheterization. The Timeout was completed, verifying the correct patient and procedure. The patient's procedural site was prepped and draped in the usual fashion. Local anesthetic was given subcutaneously to right radial region with Lidocaine 2%. Using a modified Seldinger technique, arterial access was obtained via the right radial artery, a 6Fr sheath was inserted. Right Coronary Artery selective angiography was then performed in multiple views using a 5 Fr. 4.0 Harcourt catheter. Left Coronary Artery selective angiography was performed in multiple views using a 5 Fr. 4.0 Harcourt catheter. Left Ventriculography was performed in ARAUZ projection using a 5 Fr. Pigtail catheter. LV to AO pullback pressures were then recorded.The arterial sheath was pulled and a TR Band was applied for hemostasis CORONARY ANGIOGRAPHY DOMINANCE: Right Dominant LEFT HEART ASSESSMENT Left Ventricular Ejection Fraction: by LV Gram 65 % Normal Left Ventricular systolic function iFR performed on the LAD as well as the ramus intermedius and both were not significant LEFT MAIN: Mild calcification, Non-obstructive LEFT ANTERIOR DESCENDING ARTERY: Mild to moderately calcified with mid 40 to 50% stenotic lesion noted. CIRCUMFLEX ARTERY: Mild luminal irregularities less than 30% RAMUS: Mild proximal ectasia and mid 40 to 50% stenosis noted RIGHT CORONARY ARTERY: No significant disease noted VALVE FINDINGS: Mitral annular calcification noted COMPLICATIONS No Complications PROCEDURE MEDICATIONS Fentanyl 50 mcg IV Versed 1 mg IV Versed 1 mg IV Versed 1 mg IV Oxygen: 2 L/min via nasal cannula Heparin given IA 12/03/2022 11:23:37 Verapamil 2.5mg, Ntg 100mcgs, 3000 units of Heparin given IA 12/03/2022 11:23:37 SUMMARY OF HEMODYNAMIC DATA Time AIR REST ECG 10:10:57 Art 136/75 (97) 11:25:02 AO 147/79 (104) SA 11:32:28 LV 123/4, 7 11:40:33 LV 118/2, 6 11:40:39 LV 116/4, 6 11:41:07 LV 115/3, 7 11:41:13 LVp 115/6, 7 11:41:17 AOp 0/-12 (7) 11:41:22 Signed By Petros Valdez MD On 12/03/2022 12:15:16 __ Petros Valdez MD 12/03/22 1216 Date __ Petros Valdez MD Cosigner Signature: Date __ (if indicated) CC: Dr. Petros Valdez MD; Dr. Francheska Alonzo, DO Date Dictated: 12/03/22 1117 Date Transcribed: 12/03/22 121 Airport Guide: [place] Signed Francheska Alonzo DO Work Phone: Start: 11-30-2022 End: 11-30-2022 History and Physical Exam Procedure Note: See Note; NOTES: [facility] Medical Records Department [address] [place] [address] History Physical Exam 11/30/22 1600 MR#: [id number] Acct: [id number] Name: JUNG COLEMAN Rep #: [id number] : 1945 77 From: Tea ARIZMENDI PCP: Dr. Francheska Alonzo, DO Status:[facility] [place] Location: [facility] History and Physical JUNG COLEMAN, is a 77 M who presents today for a cardiovascular outpatient follow-up.??? He is a gentleman with no obstructive coronary disease, hypertension, hyperlipidemia, and probable raynauds phenomenon.??? He returns for follow-up visit.??? You do remember he underwent stress echocardiographic evaluation in 2018 with no evidence of ischemia.??? He also underwent stress echocardiogram on 05/05/2021 that was negative for ischemia at a high workload. He underwent a coronary calcium score, calcium score was 1804. With his elevated calcium score would like to pursue a diagnostic heart catheterization. He denies chest, arm, jaw, or neck discomfort. He denies symptoms of shortness of breath with exertion, shortness of breath at rest, orthopnea, PND, sudden weight gain, or bilateral lower extremity edema. He denies chronic cough. He denies palpitations, lightheadedness, dizziness, near syncope, or syncopal episodes. He denies claudication issues. He denies fever or chills. He denies blood in urine, blood in stool, or epistaxis. He denies myalgia. He denies unexplainable fatigue. His exercise tolerance is stable.??? Me that his lipid profile was excellent and he is due to have one with you soon.??? His statin was increased. PFSH Medical History??? Alcohol use Arthritis Back pain Onofre esophagus Cardiology follow-up encounter Chronic renal insufficiency Essential (primary) hypertension Gastric reflux Gastritis GERD (gastroesophageal reflux disease) Hepatitis High cholesterol History of echocardiogram History of edema History of stress test Hx of colonic polyp Hyperlipidemia Mitral valve annular calcification Non-smoker Palpitations Raynaud disease Wears glasses Surgical History??? History of hydrocelectomy Hx of appendectomy Hx of colonoscopy Hx of foot surgery Hx of hernia repair Hx of transurethral resection of prostate Family History??? Father CancerMother? ,??? age 72 CAD (coronary artery disease) Hypertension Social History??? Smoking Status:??? Never smoker alcohol intake:??? current alcohol intake frequency: 0-2 drinks per day substance use type:??? does not use caffeine:??? Yes Type: coffee Number of servings: 4 ROS Const Const: Negative for fatigue, weakness, headache(s), frequent falls, difficulty sleeping or excessive sweating Eyes Eyes: Negative for loss of peripheral vision, transient loss of vision, blurry vision, double vision or tunnel vision ENT ENT: Negative for headache(s), dizziness, Nosebleed/epistaxis or balance problems Cardio Chest Pain: No Palpitations: No Edema: Bilateral (mild, resolves by morning) Muscle aches with walking: None Resp Respiratory: Negative for SOB with activity, SOB at rest, SOB orthopnea SOB lying down, Cough or paroxysmal nocturnal dyspnea GI GI: Negative nausea, vomiting, heartburn or black,tarry stools : Negative for hematuria Musc Musc: Positive for joint pain; Negative for muscle aches/ myalgia, muscle weakness or balance problems Skin Skin: Negative non-healing lesions, rash or unusual bruising Neuro Neuro: Negative for dizziness, lightheadedness, near syncope, syncope, frequent falls, headache(s), weakness, blurry vision, double vision or lack of coordination Tang Hematologic/Lymphatic: Negative for easy bleeding or easy bruising Endo Endo: Negative for fatigue, excessive sweating or increased thirst/drinking Psych Psych: Negative for anxiety or depression Allergy Allergy/Immunology: Negative for hives and Negative for rash Cardiology Exam Const Appearance: cooperative, healthy appearing, no acute distress, well developed and well groomed Nutritional Appearance: average body habitus and well nourished Orientation: alert, awake and oriented x3 Head Head: normal to inspection, normocephalic and atraumatic Ears: hearing grossly normal bilaterally and external ears normal Nose: external nose normal, nares normal, nasal mucous membranes and turbinates normal, septum normal and no nasal discharge Face and Sinus: face symmetric Mouth: oral mucosae normal, tongue normal, oropharynx normal and moist mucous membranes Teeth and gingiva: dentition normal Throat: posterior oropharynx normal, tonsils normal and uvula midline Eyes General: appearance normal, both eyes and all related structures Eyelids: eyelids normal Conjunctivae: conjunctivae normal Pupils: PERRL, normal by confrontation and accommodation normal EOM: EOM intact bilaterally Neck Neck: normal visual inspection, trachea midline and no JVD JVD: +5 Carotids: normal carotid upstroke and bounding pulses Chest Chest inspection: normal inspection of the chest, symmetric chest movement and normal respiratory effort Auscultation: Bilateral: Clear to Auscultation Cardio Palpation: normal PMI Rate: regular rate Rhythm: regular rhythm Heart sounds: S1 normal, S2 normal and normal, physiologic split S2; Negative rub, gallop or murmur GI GI: normal to inspection, soft, no hepatosplenomegaly and bowel sounds present Neuro General: patient alert, patient awake, patient oriented x3, gait normal, moves all extremities and no focal sensory deficit Skin Skin: no rashes or lesions noted Extremities Pulses: Normal: Right Femoral Pulse, Left Femoral Pulse, Right Dorsalis Pedis Pulse, Left Dorsalis Pedis Pulse, Right Posterior Tibial Pulse, Left Posterior Tibial Pulse, Right Radial Pulse and Left Radial Pulse Lower Extremity Edema: None: Bilateral Musculoskel Musculoskeletal: No joint tenderness Psych Psychological: normal affect Supplemental Info Supplemental Information Echocardiogram from 05/01/2021: Interpretation Summary Normal LV size. Left ventricular systolic function is normal. The estimated ejection fraction is 60 %. Stage 1 diastolic dysfunction. Mild (1+) eccentric mitral valve insufficiency. Mild mitral valve prolapse, posterior leaflet Stress test from [facility] 05/05/2021: Conclusion Stress test with no EKG criteria for ischemia at a high workload. Excellent functional aerobic capacity. No arrhythmias noted. Assessment Plan Assessment/Plan (1) Abnormal cardiac CT angiography: (2) Essential (primary) hypertension: (3) Hyperlipidemia: QUALIFIERS: Hyperlipidemia type: pure hypercholesterolemia Qualified Code(s): E78.00 - Pure hypercholesterolemia, unspecified; E78.0 - Pure hypercholesterolemia PLAN: Plan Patient will proceed with a diagnostic heart catheterization for his elevated coronary calcium score. He will continue with his current blood pressure medications and current dose of statin at this time. 11/30/22 1603 <Electronically signed by Tea ARIZMENDI> Cosigner Signature (if applicable): CC: KYLEIGH Hart; Dr. Francheska Alonzo DO Signed Francheska Alonzo DO Work Phone: Start: 11-29-2022 End: 11-29-[address] Procedure Note: See Note; NOTES: [facility] Imaging Services [address] [place] [address] 11/29/22 1532 MR#: [id number] Acct: [id number] Name: JUNG COLEMAN Rep #: [id number] : 1945 77 From: Petros Valdez MD PCP: Dr. Francheska Alonzo DO Status:[facility] Y Location: CT Calcium Scoring Date of Study:: 11/29/22 Coronary Calcium Scoring: High-resolution Computed Tomographic imaging of the chest was performed on [11/29/22 ], with particular attention paid to the coronary arteries. Images from the examination were analyzed for the presence and extent of coronary artery calcification , using coronary calcium quantification software. The patient tolerated the procedure well and there were no complications. The results of the coronary calcification analysis are provided below. Findings Coronary Artery Left Main (LM): 474 Left Anterior Descending (LAD): 405 Left Circumflex (LCX): 703 Right Coronary Artery (RCA): 222 Total Agatston Score: 1,804 Percentile Rankinth-90th Calcium Scoring Interpretation: Different methods to categorize the overall amount of coronary plaque. Overall amount CAC SIS Visual of coronary plaque P1 Mild -100 <2 1-2 vessels with mild amount of plaque P2 Moderate 101-300 3-4 1-2 vessels with moderate amount, 3 vessels with mild amount of plaque P3 Severe 301-999 5-7 3 vessels with moderate amount, 1 vessel with severe amount of plaque P4 Extensive >1000 >8 2-3 vessels with severe amount of plaque Calcium Score: Extensive: 2-3 vessels w/severe amount of plaque Conclusion: The above is suggestive of a significant amount of plaque involving 2-3 vessels. 11/29/22 1534 <Electronically signed by Petros Valdez MD> Date __ Petros Valdez MD Cosigner Signature (if applicable): Date __ CC: Dr. Petros Valdez MD; Dr. Francheska Alonzo DO Signed Francheska Alonzo DO Work Phone: Start: 11-29-2022 End: 11-29-[address] Cardiac Only Procedure Note: See Note; NOTES: [facility] Imaging Services [address] [place] [address] Cardiac Only MR#: [id number] Acct: [id number] Name: JUNG COLEMAN Rep #: [id number] : 1945 M 77 From: Hany Yarbrough MD PCP: Dr. Francheska Alonzo DO Status: [facility] CL Study: Limited Chest CT Cardiac Only Date of Exam: Exam# [id number] Ordering Dr: Petros Valdez MD STUDY: CARDIAC CALCIUM SCORING - CT CHEST REASON FOR EXAM: Male, 77 years old. CARDIAC RISK RADIATION DOSAGE (If Supplied By Facility): CTDIvol = ( 12.19 ) mGy, DLP = ( 268.17 ) mGycm TECHNIQUE: Axial non-enhanced images were acquired through the heart for the sole purpose of measuring coronary artery calcium. Individualized dose optimization techniques were used for this CT. COMPARISON: None. __ FINDINGS: Visualized surrounding anatomy: Normal. Left Main Coronary Artery: Atherosclerotic calcification. Left Anterior Descending Artery: Atherosclerotic calcification Left Circumflex Artery: Atherosclerotic calcification Right Coronary Artery: Atherosclerotic calcification. Other: Coronary calcium volume 13.35 cu mm. Total Calcium Score: 1804 __ CT/Limited Chest CT Cardiac Only IMPRESSION: A Calcium Score of 1804 places the patient in the approximate 75th and 90th percentile, based on the [employer] data calculator. __ Please go to: [email or web address]/input. aspx , for a description of the calculator. Electronically Signed: Hany Yarbrough MD, LAKISHA at 16:36 EDT , CC: Dr. Petros Valdez MD; Dr. Francheska Alonzo DO Airport Guide: Signed Francheska Alonzo DO Work Phone: Start: 10-16-2022 End: 10-16-2022 Cardiology Visit Report Procedure Note: See Note; NOTES: [facility] [address] [place] [address] OFFICE VISIT Date of Service: 10/16/22 MR#: [id number] Acct: [id number] Name: JUNG COLEMAN Rep #: [id number] : 1945 Provider: Dr. Petros Valdez MD Age/Sex: 77/M Location: [facility] [facility] Status: Signed [facility] HPI History of Present Illness Details: JUNG COLEMAN, is a 77 M who presents today for a cardiovascular outpatient follow-up. He is a gentleman with no obstructive coronary disease, hypertension, hyperlipidemia, and probable raynauds phenomenon. He returns for follow-up visit. You do remember he underwent stress echocardiographic evaluation in 2018 with no evidence of ischemia. He also underwent stress echocardiogram on 05/05/2021 that was negative for ischemia at a high workload. He denies chest, arm, jaw, or neck discomfort. He denies symptoms of shortness of breath with exertion, shortness of breath at rest, orthopnea, PND, sudden weight gain, or bilateral lower extrem ity edema. He denies chronic cough. He denies palpitations, lightheadedness, dizziness, near syncope, or syncopal episodes. He denies claudication issues. He denies fever or chills. He denies blood in urine, blood in stool, or epistaxis. He denies myalgia. He denies unexplainable fatigue. His exercise tolerance is stable. Me that his lipid profile was excellent and he is due to have one with you soon. His statin was increased. 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: No Accompanied by: None Is patient in pain?: No Allergies No Known Allergies Allergy (Verified 10/16/22 14:11) Medications coenzyme Q10 30 mg capsule 30 mg PO DAILY 05/21/16 [History Confirmed 10/16/22] multivitamin 1 ea PO DAILY 05/21/16 [History Confirmed 10/16/22] cyanocobalamin (vitamin B-12) 2,000 mcg tablet 2,000 mcg PO DAILY 04/22/17 [History Confirmed 01/10/22] ascorbic acid (vitamin C) 1,000 mg tablet 1 g PO QDAY 09/25/17 [History Confirmed 10/16/22] s-adenosylmethionine 400 mg tablet 800 mg PO DAILY 10/10/21 [History Confirmed 10/16/22] lisinopril 5 mg tablet 5 mg PO DAILY #90 tabs 11/13/21 [Rx Confirmed 10/16/22] dexlansoprazole 60 mg capsule,biphase delayed release (Dexilant) 60 mg PO DAILY 01/08/22 [History Confirmed 10/16/22] iron 40 mg capsule 45 mg PO DAILY 01/08/22 [History Confirmed 10/16/22] diazepam 5 mg tablet 5 mg PO DAILY PRN 10/16/22 [History Confirmed 10/16/22] melatonin 12 mg tablet 12 mg PO QHS 10/16/22 [History Confirmed 10/16/22] rosuvastatin 10 mg tablet 10 mg PO DAILY 10/16/22 [History Confirmed 10/16/22] Ejection fraction %: 60 to 64 PFSH Medical History Alcohol use Arthritis Back pain Onofre esophagus Cardiology follow-up encounter Chronic renal insufficiency Essential (primary) hypertension Gastric reflux Gastritis GERD (gastroesophageal reflux disease) Hepatitis High cholesterol History of echocardiogram History of edema History of stress test Hx of colonic polyp Hyperlipidemia Mitral valve annular calcification Non-smoker Palpitations Raynaud disease Wears glasses Surgical History History of hydrocelectomy Hx of appendectomy Hx of colonoscopy Hx of foot surgery Hx of hernia repair Hx of transurethral resection of prostate Family History Father Cancer Mother , age 72 CAD (coronary artery disease) Hypertension Social History Smoking Status: Never smoker alcohol intake: current alcohol intake frequency: 0-2 drinks per day substance use type: does not use caffeine: Yes Type: coffee Number of servings: 4 ROS Const Const: Negative for fatigue, weakness, headache(s), frequent falls, difficulty sleeping or excessive sweating Eyes Eyes: Negative for loss of peripheral vision, transient loss of vision, blurry vision, double vision or tunnel vision ENT ENT: Negative for headache(s), dizziness, Nosebleed/epistaxis or balance problems Cardio Chest Pain: No Palpitations: No Edema: Bilateral (mild, resolves by morning) Muscle aches with walking: None Resp Respiratory: Negative for SOB with activity, SOB at rest, SOB orthopnea SOB lying down, Cough or paroxysmal nocturnal dyspnea GI GI: Negative nausea, vomiting, heartburn or black,tarry stools : Negative for hematuria Musc Musc: Positive for joint pain; Negative for muscle aches/ myalgia, muscle weakness or balance problems Skin Skin: Negative non-healing lesions, rash or unusual bruising Neuro Neuro: Negative for dizziness, lightheadedness, near syncope, syncope, frequent falls, headache(s), weakness, blurry vision, double vision or lack of coordination Tang Hematologic/Lymphatic: Negative for easy bleeding or easy bruising Endo Endo: Negative for fatigue, excessive sweating or increased thirst/drinking Psych Psych: Negative for anxiety or depression Allergy Allergy/Immunology: Negative for hives and Negative for rash Cardiology Exam Const Appearance: cooperative, healthy appearing, no acute distress, well developed and well groomed Nutritional Appearance: average body habitus and well nourished Orientation: alert, awake and oriented x3 Head Head: normal to inspection, normocephalic and atraumatic Ears: hearing grossly normal bilaterally and external ears normal Nose: external nose normal, nares normal, nasal mucous membranes and turbinates normal, septum normal and no nasal discharge Face and Sinus: face symmetric Mouth: oral mucosae normal, tongue normal, oropharynx normal and moist mucous membranes Teeth and gingiva: dentition normal Throat: posterior oropharynx normal, tonsils normal and uvula midline Eyes General: appearance normal, both eyes and all related structures Eyelids: eyelids normal Conjunctivae: conjunctivae normal Pupils: PERRL, normal by confrontation and accommodation normal EOM: EOM intact bilaterally Neck Neck: normal visual inspection, trachea midline and no JVD JVD: +5 Carotids: normal carotid upstroke and bounding pulses Chest Chest inspection: normal inspection of the chest, symmetric chest movement and normal respiratory effort Auscultation: Bilateral: Clear to Auscultation Cardio Palpation: normal PMI Rate: regular rate Rhythm: regular rhythm Heart sounds: S1 normal, S2 normal and normal, physiologic split S2; Negative rub, gallop or murmur GI GI: normal to inspection, soft, no hepatosplenomegaly and bowel sounds present Neuro General: patient alert, patient awake, patient oriented x3, gait normal, moves all extremities and no focal sensory deficit Skin Skin: no rashes or lesions noted Extremities Pulses: Normal: Right Femoral Pulse, Left Femoral Pulse, Right Dorsalis Pedis Pulse, Left Dorsalis Pedis Pulse, Right Posterior Tibial Pulse, Left Posterior Tibial Pulse, Right Radial Pulse and Left Radial Pulse Lower Extremity Edema: None: Bilateral Musculoskel Musculoskeletal: No joint tenderness Psych Psychological: normal affect Supplemental Info Supplemental Information Echocardiogram from 05/01/2021: Interpretation Summary Normal LV size. Left ventricular systolic function is normal. The estimated ejection fraction is 60 %. Stage 1 diastolic dysfunction. Mild (1+) eccentric mitral valve insufficiency. Mild mitral valve prolapse, posterior leaflet Stress test from [facility] 05/05/2021: Conclusion Stress test with no EKG criteria for ischemia at a high workload. Excellent functional aerobic capacity. No arrhythmias noted. Laboratory Tests 10/05/21 06:20 Triglycerides 83 Cholesterol 230 H LDL Cholesterol 134 H HDL Cholesterol 79 Labs: LDL Cholesterol 110 mg/dL (0-130) HDL Cholesterol 77 mg/dL (40-) Triglycerides 63 mg/dL (-199) VLDL Cholesterol 13 mg/dL (5-40) Diagnostics: Stress Echocardiogram Stress Test Pulmonary: No Data to Display Assessment and Plan Assessment and Plan (1) Essential (primary) hypertension: Status: Chronic Comment: CONTROLLED WITH MEDS Plan: His blood pressure is under excellent control at this particular time I would not recommend that we make any changes. He will remain on the same medications. In terms of restratification it to be helpful for him to have a triple screen as well as a coronary calcium score. He is agreeable to the above. (2) Hyperlipidemia: Status: Chronic Qualifiers: Hyperlipidemia type: pure hypercholesterolemia Qualified Code(s): E78.00 - Pure hypercholesterolemia, unspecified; E78.0 - Pure hypercholesterolemia Plan: He does have a history hyperlipidemia with his recent lipid profile from January 2022 demonstrating a total cholesterol 200 HDL of 77 LDL 110. He tells me that he will be seeing you soon for a repeat. Thank you for allowing me to participate in the care of your patient. Please don't hesitate to call if any issues arise. 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) Coding Level of Care Code Off vis,est,level 3 Diagnoses Essential (primary) hypertension I10 Hyperlipidemia E78.00; E78.0 Hyperlipidemia type: pure hypercholesterolemia Coding Level of Care Code Off vis,est,level 3 Diagnoses Essential (primary) hypertension I10 Hyperlipidemia E78.00; E78.0 Hyperlipidemia type: pure hypercholesterolemia 10/16/22 1445 <Electronically signed by Petros Valdez MD> Date __ Petros Valdez MD Cosigner Signature: Date __ (if applicable) CC: DO Francheska Minaya DO Work Phone: Start: 09-14-2022 End: 09-14-2022 Kidney and Bladder Procedure Note: See Note; NOTES: [facility] Imaging Services [address] [place] [address] Kidney and Bladder MR#: [id number] Acct: [id number] Name: JUNG COLEMAN Rep #: [id number] : 1945 77 From: Mo bertrand MD PCP: Dr. Francheska Alonzo DO Status: [facility] CLI Study: Kidney and Bladder Date of Exam: 09/14/22 Exam# [id number] Ordering Dr: Francheska Alonzo DO STUDY: RENAL ULTRASOUND - COMPLETE REASON FOR EXAM: Male, 77 years old. PAIN FLANK BILATERAL TECHNIQUE: Ultrasound evaluation of the kidneys was performed with real-time and static abdi-scale imaging. COMPARISON: Comparison is made with prior study dated 05/03/2016. __ FINDINGS: RIGHT KIDNEY: Normal location of the right kidney, which is normal in size. The right kidney measures 13 cm x 5.8 cm x 4.7 cm. There is a normal cortex of the right kidney. The renal cortex measures 1.4 cm. There is a 9.4 cm x 6.2 cm x 6.2 cm cyst. There are no right renal calculi. There is no right hydronephrosis. DISTAL RIGHT URETER: There is non-visualization of the distal right ureter. There is no demonstrated right ureterovesical junction calculus. There is a visualized right ureteral jet. LEFT KIDNEY: Normal location of the left kidney, which is normal in size. The left kidney measures 12.3 cm x 5.6 cm x 5.7 cm. There is a normal cortex of the left kidney. The renal cortex measures 1.5 cm. There is a 2.9 cm x 2.9 cm x 1.9 cm cyst. There are no left renal calculi. There is no left hydronephrosis. DISTAL LEFT URETER: There is non-visualization of the distal left ureter. There is no demonstrated left ureterovesical junction calculus. There is a visualized left ureteral jet. BLADDER: The distended urinary bladder has a volume of 126 ml. Urinary bladder wall thickness measures 4 mm. This is slightly thickened. There is no demonstrated mass within the urinary bladder. There are no demonstrated bladder calculi. The prostate is enlarged measuring 6.8 cm x 6 cm x 3.6 cm. __ US/Kidney and Bladder IMPRESSION: Bilateral renal cysts. Prostatic enlargement. Electronically Signed: Mo Angulo MD at 14:20 EST , CC: Dr. Francheska Alonzo DO Airport Guide: Signed Francheska Alonzo DO Work Phone: Start: 04-17-2022 US BREAST BIOPSY RIGHT (POC) SURG USE ONLY Mal P Oneida MD Work Phone: Start: 04-05-2022 End: 04-05-2022 Breast Limited Unilateral Comments: See Note; NOTES: [facility] Imaging Services [address] [place] [address] Breast Limited Unilateral MR#: [id number] Acct: [id number] Name: JUNG COLEMAN Rep #: [id number] : 1945 M 76 From: Mo bertrand MD PCP: Dr. Francheska Alonzo DO Status: [facility] CLI Study: Breast Limited Unilateral Date of Exam: Exam# [id number] Ordering Dr: Francheska Alonzo DO STUDY: ULTRASOUND BREAST - RIGHT REASON FOR EXAM: Male, 76 years old. Palpable lump in the right breast. TECHNIQUE: Axial and longitudinal images of the RIGHT breast were performed with a high resolution ultrasound transducer. # OF IMAGES: 20 COMPARISON: Comparison is made with prior mammogram done earlier today. __ FINDINGS: RIGHT Breast: There is evidence of retrocrural areolar glandular tissue. This is suggestive of a gynecomastia. __ US/Breast Limited Unilateral IMPRESSION: Findings suggestive of gynecomastia. __ ASSESSMENT CATEGORY: BIRADS Category 2: Benign. A letter regarding these results will be sent to the patient by the facility within 30 days. Electronically Signed: Mo Angulo MD at 14:46 EDT , CC: Dr. Francheska Alonzo DO Airport Guide: Signed Francheska Alonzo DO Work Phone: Start: 04-05-2022 End: 04-05-2022 DIAG MAMM W/CAD, BILAT Comments: See Note; NOTES: [facility] Imaging Services [address] [place] [address] DIAG MAMM W/CAD, BILAT MR#: [id number] Acct: [id number] Name: JUNG COLEMAN Rep #: [id number] : 1945 M 76 From: Mo bertrand MD PCP: Dr. Francheska Alonzo DO Status: [facility] CLI Study: DIAG MAMM W/CAD, BILAT Date of Exam: 04/05/22 Exam# [id number] Ordering Dr: Francheska Alonzo DO MAMMOGRAPHY - BILATERAL DIAGNOSTIC REASON FOR EXAM: Male, 76 years old. One-month history of a palpable tenderness in the retrohilar region of the right breast. PERTINENT HISTORY: Mother with breast cancer. TECHNIQUE: Digital bilateral breast delia (3D mammographic acquisition) in the CC and MLO projections. 2-D mediolateral oblique (MLO) and craniocaudad (CC) views of both breasts were obtained. CAD: Full Field Digital Mammography with Computer Added Detection was performed. COMPARISON: None. Baseline examination. __ FINDINGS: Breast Composition: There are scattered areas of fibroglandular density. There are no dominant masses or suspicious calcifications. Asymmetry of breast tissue with more breast tissue is seen in the retroareolar region of the right breast as compared to the left side. This most likely represents gynecomastia. Correlation with ultrasound is recommended. No other significant abnormalities are identified. __ BI/DIAG MAMM W/CAD, BILAT IMPRESSION: Findings suggestive of bilateral gynecomastia more prominent on the right side. Correlation with ultrasound of the right breast is recommended. __ ASSESSMENT CATEGORY: BIRADS Category 0: Incomplete. Need additional imaging evaluation. A letter regarding these results will be sent to the patient by the facility within 30 days. Approximately 10% of breast cancers are not detected by mammography. A normal mammogram should not delay biopsy of a clinically suspicious abnormality. Electronically Signed: Mo Angulo MD at 10:12 EDT , CC: Dr. Francheska Alonzo DO Airport Guide: Signed Francheska Alonzo DO Work Phone: Start: 01-24-2022 End: 2022 Gastroenterology Visit Report Procedure Note: See Note; NOTES: [facility] Gastroenterology [address] [facility] [place] [address] OFFICE VISIT Date of Service: 01/24/22 MR#: [id number] Acct: [id number] Name: JUNG COLEMAN Rep #: [id number] : 1945 Provider: David Parra DO Age/Sex: 76/M [place] [facility] [place] Status: Signed Intake Vital Signs 10/10/21 08:51 01/10/22 10:18 Height 6 ft 1 in 6 ft 1 in Intake Visit Reasons: 2 WK FU Chief Complaint: Follow up Allergies No Known Allergies Allergy (Verified 01/10/22 10:17) [facility] Medical History (Updated 01/24/22 @ 15:01 by Valerie Pro) Alcohol use Arthritis Back pain Cardiology follow-up encounter Chronic renal insufficiency Essential (primary) hypertension Gastric reflux Hepatitis High cholesterol History of echocardiogram History of edema History of stress test Hyperlipidemia Mitral valve annular calcification Non-smoker Palpitations Raynaud disease Wears glasses Surgical History History of hydrocelectomy Hx of appendectomy Hx of colonoscopy Hx of foot surgery Hx of hernia repair Hx of transurethral resection of prostate Family History Father Cancer Mother , age 72 CAD (coronary artery disease) Hypertension Social History Smoking Status: Never smoker HPI HPI Chief Complaint: Follow up Details: JUNG COLEMAN, is a 76 M who presents to the office today for Follow up visit. Jung established with this clinic 11.07.21 for screening colonoscopy evaluation. His age puts him past open access scheduling. His father had colon cancer in his early 60???s. History of GERD that he controls with diet as he dislikes medications if not needed. Previous EGD which he reports as normal. Previous bloating which resolved with probiotic use. EGD and colonoscopy performed 01.10.22. 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 H.Pylori negative. Colonoscopy found 5mm poly in descending colon; diverticulosis in RS, sigmoid and descending colons; impaction of appendiceal orifice with hard stool, most of this was removed, concern for future appendicitis. Plan last visit 11.07.21: History of colonic polyps, GERD ??? recommend EGD and colonoscopy. Doing well since last visit. Pays attention to what he eats to minimize reflux symptoms. He is taking Dexilant once a day PRN, but does feel it is expensive to him. Has tried other OTC PPI (possibly not protonix) without effect. ROS Const Constitutional: No fatigue, malaise, night sweats, weight change, sleep problems, abnormal sleep pattern or change in appetite ENT ENT: No difficulty swallowing, hoarseness or sore throat Cardio Cardiology: No chest pain at rest Gastro GI: No abdominal pain, belching, bloating, change in bowel habits, change in stool character, coffee ground emesis, constipation, cramping, diarrhea, heartburn, difficulty swallowing, feeling full early, excessive flatus, incontinent of stools, Vomiting blood/hematemesis, Blood in stool, loose stools, Black,tarry stools, nausea/dyspepsia, pain with swallowing, vomiting or other Musc Musculoskeletal: No joint pain Skin Skin: No yellowing of the eye or itchy eyes Neuro Neurology: No behavioral changes Psych Psychiatric: No abnormal sleep pattern, No anxiety, No behavioral changes, No change in appetite and No depression Endo Endocrine: No fatigue or weight change Aller/Imm Allergy/Immunologic: No itchy eyes Tang/Lymp Hematologic/Lymphatic: No easy bleeding or easy bruising Exam Const General: cooperative, healthy appearing, comfortable, no acute distress, well developed and well groomed Nutritional Appearance: average body habitus and well nourished [facility] Head: normal to inspection Ears: hearing grossly normal bilaterally Nose: external nose normal Face and sinus: normal facial exam Mouth: oral mucosae normal Throat: posterior oropharynx normal Eyes General: appearance normal, both eyes and all related structures Neck Neck: normal visual inspection Chest Chest palpation inspection: normal inspection of the chest and normal palpation of entire chest wall Resp Effort Inspection: normal respiratory effort Auscultation: Bilateral: Clear to Auscultation Cardio Palpation: normal PMI Rate: regular rate Rhythm: regular rhythm GI Inspection: normal to inspection Auscultation: normal bowel sounds Percussion: normal to percussion Palpation: no hepatosplenomegaly Skin General: no rashes or lesions noted Neuro General: patient alert Extrem General: normal to inspection Psych Affect: normal affect Quality Reporting Tobacco Screening ([facility] 138) Smoking Status: Never smoker Assessment and Plan Assessment and Plan (1) GERD (gastroesophageal reflux disease): Status: Acute Plan - Dr. Hernandez Friend, DO: Gastroesophageal reflux disease is controlled on Dexilant therapy. He is also iron deficient taking oral iron and vitamin C. PPI can be associate treated with decreased iron absorption. Recommend to check his iron studies and if they are showing persistent iron deficiency anemia he should be checked for celiac disease and we should consider changing his medicine from a PPI based acid suppression therapy. Also recommended alkaline water at least 32 ounces a day for an extra offer to keep his pH up is much as possible and help to continue weight decreased activation of Pepsin. (2) Hx of colonic polyp: Status: Acute Plan - Dr. Hernandez Friend, DO: He should have colonoscopy for evaluation of his colon. Especially in the setting of iron deficiency anemia. (3) Onofre esophagus: Status: Acute (4) Gastritis: Status: Acute Coding Level of Care Code Off vis,est,level 3 Diagnoses GERD (gastroesophageal reflux disease) K21.9 Hx of colonic polyp Z86.010 Onofre esophagus K22.70 Gastritis K29.70 04/12/22 1335 <Electronically signed by David Parra DO> Date __ David Lopez Signature: Date __ (if applicable) CC: Francheska Alonzo DO Work Phone: Start: 01-10-2022 End: 06-08-2022 Colonoscopy Report Comments: See Note; NOTES: [facility] Medical Records Department [address] [place] [address] Colonoscopy Report MR#: [id number] Acct: [id number] Name: JUNG COLEMAN Rep #: [id number] : 1945 76 From: David Parra DO PCP: Dr. Francheska Alonzo DO Status[place] [place] Patient Name: Jung Coleman Procedure Date: 01/10/2022 11:06 AM Date of : 1945 Age: 76 Procedure: Colonoscopy Indications: Follow-up for history of adenomatous polyps in the colon Providers: David Parra DO Medicines: Monitored Anesthesia Care Patient Profile: This is a 76 year old male. Refer to note in patient chart for documentation of history and physical. Patient has symptoms of chronic heartburn. He is status post EGD for Onofre's biopsy. He is status post colonoscopy for polyp removal within the past five years. Last Colonoscopy: 5 years ago. Complications: No immediate complications. Procedure: Pre-Anesthesia Assessment: - Prior to the procedure, a History and Physical was performed, and patient medications and allergies were reviewed. The patient is competent. The risks and benefits of the procedure and the sedation options and risks were discussed with the patient. All questions were answered and informed consent was obtained. Patient identification and proposed procedure were verified by the physician in the pre-procedure area. Mental Status Examination: alert and oriented. Airway Examination: normal oropharyngeal airway and neck mobility. Respiratory Examination: clear to auscultation. CV Examination: normal. Prophylactic Antibiotics: The patient does not require prophylactic antibiotics. Prior Anticoagulants: The patient has taken no previous anticoagulant or antiplatelet agents. ASA Grade Assessment: II - A patient with mild systemic disease. After reviewing the risks and benefits, the patient was deemed in satisfactory condition to undergo the procedure. The anesthesia plan was to use moderate sedation / analgesia (conscious sedation). Immediately prior to administration of medications, the patient was re-assessed for adequacy to receive sedatives. The heart rate, respiratory rate, oxygen saturations, blood pressure, adequacy of pulmonary ventilation, and response to care were monitored throughout the procedure. The physical status of the patient was re-assessed after the procedure. After I obtained informed consent, the scope was passed under direct vision. Throughout the procedure, the patient's blood pressure, pulse, and oxygen saturations were monitored continuously. The pediatric colonoscope was introduced through the anus and advanced to the terminal ileum. The colonoscopy was performed without difficulty. The patient tolerated the procedure well. The quality of the bowel preparation was good. Scope In: 11:08:31 AM Scope Withdrawal Time 0 hours 16 minutes 52 seconds Scope Out: 11:32:20 AM Total Procedure Duration Time 0 hours 23 minutes 49 seconds Findings: The perianal and digital rectal examinations were normal. A 5 mm polyp was found in the descending colon. The polyp was sessile. The polyp was removed with a cold snare. Resection and retrieval were complete. Verification of patient identification for the specimen was done. Estimated blood loss was minimal. A few small and large-mouthed diverticula were found in the recto-sigmoid colon, sigmoid colon and descending colon. Impression: - One 5 mm polyp in the descending colon, removed with a cold snare. Resected and retrieved. - Diverticulosis in the recto-sigmoid colon, in the sigmoid colon and in the descending colon. There also was an impaction of the appendiceal orifice with hard stool. Appendicitis can occur when there is a blockage where the appendix and the large intestine meet. Most of this was removed. Recommendation: - Discharge patient to home. - Patient has a contact number available for emergencies. The signs and symptoms of potential delayed complications were discussed with the patient. Return to normal activities tomorrow. Written discharge instructions were provided to the patient. - Resume previous diet. -Augmentin twice a day for 7 days. - Continue present medications. - Await pathology results. - Repeat colonoscopy in 5 years for surveillance. - Return to GI office in 1 week. Procedure Code(s): --- Professional --- 60229, Colonoscopy, flexible; with removal of tumor(s), polyp(s), or other lesion(s) by snare technique CPT copyright 2017 [employer]. All rights reserved. The codes documented in this report are preliminary and upon auditor/quality review may be revised to meet current compliance requirements. David Parra DO 01/10/2022 11:46:14 AM This report has been signed electronically. Number of Addenda: 0 Note Initiated On: 01/10/2022 11:06 AM 01/10/22 1146 Date __ David Parra DO Cosigner Signature: Date __ (if indicated) CC: Dr. Francheska Alonzo DO; David Parra DO Date Dictated: 01/10/22 1106 Date Transcribed: Airport Guide: PRAVIN Signed Francheska Alonzo DO Work Phone: Start: 01-10-2022 End: 06-08-2022 EGD Report Comments: See Note; NOTES: [facility] Medical Records Department [address] [place] [address] EGD Report MR#: [id number] Acct: [id number] Name: JUNG COLEMAN Rep #: [id number] : 1945 76 From: David Parra DO PCP: Dr. Francheska Alonzo DO Status:[facility] [place] Patient Name: Jung Coleman Procedure Date: 01/10/2022 10:40 AM Date of : 1945 Age: 76 Procedure: Upper GI endoscopy Indications: Heartburn Providers: David Parra DO Medicines: Monitored Anesthesia Care Patient Profile: This is a 76 year old male. Refer to note in patient chart for documentation of history and physical. Patient has symptoms of chronic heartburn. He is status post EGD for Onofre's biopsy. Complications: No immediate complications. Procedure: Pre-Anesthesia Assessment: - Prior to the procedure, a History and Physical was performed, and patient medications and allergies were reviewed. The patient is competent. The risks and benefits of the procedure and the sedation options and risks were discussed with the patient. All questions were answered and informed consent was obtained. Patient identification and proposed procedure were verified by the physician in the pre-procedure area. Mental Status Examination: alert and oriented. Airway Examination: normal oropharyngeal airway and neck mobility. Respiratory Examination: clear to auscultation. CV Examination: normal. Prophylactic Antibiotics: The patient does not require prophylactic antibiotics. Prior Anticoagulants: The patient has taken no previous anticoagulant or antiplatelet agents. ASA Grade Assessment: II - A patient with mild systemic disease. After reviewing the risks and benefits, the patient was deemed in satisfactory condition to undergo the procedure. The anesthesia plan was to use moderate sedation / analgesia (conscious sedation). Immediately prior to administration of medications, the patient was re-assessed for adequacy to receive sedatives. The heart rate, respiratory rate, oxygen saturations, blood pressure, adequacy of pulmonary ventilation, and response to care were monitored throughout the procedure. The physical status of the patient was re-assessed after the procedure. After obtaining informed consent, the endoscope was passed under direct vision. Throughout the procedure, the patient's blood pressure, pulse, and oxygen saturations were monitored continuously. The Colonoscope was introduced through the mouth, and advanced to the second part of duodenum. The upper GI endoscopy was accomplished without difficulty. The patient tolerated the procedure well. Moderate Sedation: Moderate (conscious) sedation was administered by the endoscopy nurse and supervised by the endoscopist. The patient's oxygen saturation, heart rate, blood pressure and response to care were monitored. Total physician intraservice time was 15 minutes. Scope In: 10:57:43 AM Scope Out: 11:05:59 AM Total Procedure Duration Time 0 hours 8 minutes 16 seconds Findings: LA Grade B (one or more mucosal breaks greater than 5 mm, not extending between the tops of two mucosal folds) esophagitis with no bleeding was found 36 to 40 cm from the incisors. Biopsies were taken with a cold forceps for histology. Verification of patient identification for the specimen was done. Estimated blood loss was minimal. A medium-sized hiatal hernia was present. Patchy mild inflammation characterized by congestion (edema) and erythema was found in the gastric body. Biopsies were taken with a cold forceps for histology. Verification of patient identification for the specimen was done. Estimated blood loss was minimal. Patchy mildly erythematous mucosa without active bleeding and with no stigmata of bleeding was found in the duodenal bulb. Biopsies were taken with a cold forceps for histology. Verification of patient identification for the specimen was done. Estimated blood loss was minimal. Impression: - LA Grade B reflux esophagitis. Biopsied. - Medium-sized hiatal hernia. - Chronic gastritis. Biopsied. - Erythematous duodenopathy. Biopsied. Recommendation: - Discharge patient to home. - Resume previous diet. - Continue present medications. - Await pathology results. Procedure Code(s): --- Professional --- 41339, Esophagogastroduodenoscopy, flexible, transoral; with biopsy, single or multiple G0500, Moderate sedation services provided by the same physician or other qualified health career technology teacher performing a gastrointestinal endoscopic service that sedation supports, requiring the presence of an independent trained observer to assist in the monitoring of the patient's level of consciousness and physiological status; initial 15 minutes of intra-service time; patient age 5 years or older (additional time may be reported with 19232, as appropriate) CPT copyright 2017 [employer]. All rights reserved. The codes documented in this report are preliminary and upon auditor/quality review may be revised to meet current compliance requirements. David Parra DO 01/10/2022 11:40:16 AM This report has been signed electronically. Number of Addenda: 0 Note Initiated On: 01/10/2022 10:40 AM 01/10/22 1140 Date __ David Parra DO Cosigner Signature: Date __ (if indicated) CC: Dr. Francheska Alonzo DO; David Parra DO Date Dictated: 01/10/22 1040 Date Transcribed: Airport Guide: RF Signed Francheska Alonzo DO Work Phone: Start: 01-10-2022 End: 01-10-2022 History and Physical Exam Comments: See Note; NOTES: [facility] Medical Records Department [address] [place] [address] History Physical Exam 01/10/22 1041 MR#: [id number] Acct: [id number] Name: JUNG COLEMAN Rep #: [id number] : 1945 76 From: David Friend DO PCP: Dr. Francheska Alonzo, DO [facility] [facility] Location: [place] [address] History and Physical Date of Admission: 01/10/22 JUNG COLEMAN, is a 76 M who presents to the office today for hx of colon polyp 5 yrs ago, now due for his 5-yr f/u colonoscopy. His father had colon cancer in his early 60s, but lived decades after that. Pt has acid reflux, took himself off PPI since he prefers to avoid meds when possible. Notes heartburn when he eats certain foods or eats too much at a time. He has been told he has a hiatal hernia. Has had EGD in past, wasn't done with his last colonoscopy. No hx of Onofre's esophagus. Bowels are normal. He was having some bloating but that resolved with probiotic. ROS Const Constitutional: No fatigue, fever(s), headache(s), weight change, sleep problems, abnormal sleep pattern or change in appetite ENT ENT: No headache(s), difficulty swallowing, hoarseness or sore throat Resp Respiratory: No cough, hemoptysis or shortness of breath Cardio Cardiology: No chest pain at rest or generalized swelling Gastro GI: Positive for heartburn; No abdominal pain, belching, bloating, change in bowel habits, change in stool character, coffee ground emesis, constipation, cramping, diarrhea, difficulty swallowing, feeling full early, excessive flatus, incontinent of stools, Vomiting blood/hematemesis, Blood in stool, loose stools, Black,tarry stools, nausea/dyspepsia, pain with swallowing or vomiting Musc Musculoskeletal: No joint pain, back pain, joint swelling, numbness or tingling Skin Skin: No itchy eyes or rash Neuro Neurology: No behavioral changes, confusion, headache(s), numbness or tingling Psych Psychiatric: No abnormal sleep pattern, No anxiety, No behavioral changes, No change in appetite, No confusion and No depression Endo Endocrine: No cold intolerance, fatigue, heat intolerance, increased thirst/drinking or weight change Aller/Imm Allergy/Immunologic: No food intolerance or itchy eyes Tang/Lymp Hematologic/Lymphatic: No easy bleeding, easy bruising or enlarged lymph nodes Exam Const General: cooperative, healthy appearing, comfortable, no acute distress, well developed and well groomed Quality Reporting Tobacco Screening ([facility] 138) Smoking Status: Never smoker Assessment and Plan Assessment and Plan (1) Hx of colonic polyp: Status: Acute (2) GERD (gastroesophageal reflux disease): Status: Acute Plan: 76 yr old male with hx of one colon polyp 5 yrs ago, acid reflux. Plan is upper and lower endoscopy, then f/u 2 wks after that. I have re-examined the patient. There are no clinical changes since date of exam. 01/10/22 1042 <Electronically signed by David Parra DO> Cosigner Signature (if applicable): CC: Dr. Francheska Alonzo DO; David Parra DO Signed Francheska Alonzo DO Work Phone: Start: 11-07-2021 End: 11-07-2021 Gastroenterology Visit Report Comments: See Note; NOTES: [facility] [address] [place] [address] OFFICE VISIT Date of Service: 11/07/21 MR#: [id number] Acct: [id number] Name: JAREDJUNG ROGERS Rep #: [id number] : 1945 Provider: RAJESH Garrido Age/Sex: 76/M [place] [facility] Status: Signed Intake Intake Visit Reasons: COLON POLYPS Allergies No Known Allergies Allergy (Verified 11/07/21 11:25) Medications coenzyme Q10 30 mg PO DAILY 05/21/16 [History Confirmed 11/07/21] multivitamin 1 ea PO DAILY 05/21/16 [History Confirmed 11/07/21] cyanocobalamin (vitamin B-12) 2,000 mcg PO DAILY 04/22/17 [History Confirmed 11/07/21] omega 4-rtg-fjx-fish oil 1 tab PO DAILY 04/22/17 [History Confirmed 11/07/21] ascorbic acid (vitamin C) 1,000 mg tablet 1 g PO QDAY tab 09/25/17 [History Confirmed 11/07/21] melatonin 12 mg tablet 12 mg PO .at bedtime tab 10/06/20 [History Confirmed 11/07/21] lisinopril 5 mg tablet 5 mg PO DAILY #90 tab 10/10/21 [Rx Confirmed 11/07/21] rosuvastatin 5 mg tablet 5 mg PO DAILY tab 10/10/21 [History Confirmed 11/07/21] s-adenosylmethionine 400 mg tablet 800 mg PO DAILY 10/10/21 [History Confirmed 11/07/21] [facility] Medical History (Updated 11/07/21 @ 11:38 by Alicia Garrido SENIOR CARE MANAGER, SENIOR CARE MANAGER-C) Chronic renal insufficiency Essential (primary) hypertension Hyperlipidemia Mitral valve annular calcification Palpitations Raynaud disease Surgical History History of hydrocelectomy Hx of appendectomy Hx of hernia repair Hx of transurethral resection of prostate Family History Father Cancer Mother , age 72 CAD (coronary artery disease) Hypertension Social History Smoking Status: Never smoker HPI HPI Details: JUNG COLEMAN, is a 76 M who presents to the office today for hx of colon polyp 5 yrs ago, now due for his 5-yr f/u colonoscopy. His father had colon cancer in his early 60s, but lived decades after that. Pt has acid reflux, took himself off PPI since he prefers to avoid meds when possible. Notes heartburn when he eats certain foods or eats too much at a time. He has been told he has a hiatal hernia. Has had EGD in past, wasn't done with his last colonoscopy. No hx of Onofre's esophagus. Bowels are normal. He was having some bloating but that resolved with probiotic. ROS Const Constitutional: No fatigue, fever(s), headache(s), weight change, sleep problems, abnormal sleep pattern or change in appetite ENT ENT: No headache(s), difficulty swallowing, hoarseness or sore throat Resp Respiratory: No cough, hemoptysis or shortness of breath Cardio Cardiology: No chest pain at rest or generalized swelling Gastro GI: Positive for heartburn; No abdominal pain, belching, bloating, change in bowel habits, change in stool character, coffee ground emesis, constipation, cramping, diarrhea, difficulty swallowing, feeling full early, excessive flatus, incontinent of stools, Vomiting blood/hematemesis, Blood in stool, loose stools, Black,tarry stools, nausea/dyspepsia, pain with swallowing or vomiting Musc Musculoskeletal: No joint pain, back pain, joint swelling, numbness or tingling Skin Skin: No itchy eyes or rash Neuro Neurology: No behavioral changes, confusion, headache(s), numbness or tingling Psych Psychiatric: No abnormal sleep pattern, No anxiety, No behavioral changes, No change in appetite, No confusion and No depression Endo Endocrine: No cold intolerance, fatigue, heat intolerance, increased thirst/drinking or weight change Aller/Imm Allergy/Immunologic: No food intolerance or itchy eyes Tang/Lymp Hematologic/Lymphatic: No easy bleeding, easy bruising or enlarged lymph nodes Exam Const General: cooperative, healthy appearing, comfortable, no acute distress, well developed and well groomed Quality Reporting Tobacco Screening ([facility] 138) Smoking Status: Never smoker Assessment and Plan Assessment and Plan (1) Hx of colonic polyp: Status: Acute (2) GERD (gastroesophageal reflux disease): Status: Acute Plan: 76 yr old male with hx of one colon polyp 5 yrs ago, acid reflux. Plan is upper and lower endoscopy, then f/u 2 wks after that. Coding Level of Care Code Off vis,new,level 3 Diagnoses Hx of colonic polyp Z86.010 GERD (gastroesophageal reflux disease) K21.9 11/07/21 1215 <Electronically signed by Alicia Garrido NP SENIOR CARE MANAGER-C> Date __ Alicia Garrido NP SENIOR CARE MANAGER-C Cosigner Signature: Date __ (if applicable) CC: Dr. Francheska Alonzo, DO Francheska Alonzo DO Work Phone: Start: 10-10-2021 End: 10-10-2021 Cardiology Visit Report Comments: See Note; NOTES: [facility] [address] [place] [address] OFFICE VISIT Date of Service: 10/10/21 MR#: [id number] Acct: [id number] Name: JUNG COLEMAN Rep #: [id number] : 1945 Provider: Dr. Petros Valdez MD Age/Sex: 76/M [place] [facility] [place] Status: Signed HPI HPI History of Present Illness Details: JUNG COLEMAN, is a 76 M who presents today for a cardiovascular outpatient follow-up. He is a gentleman with no obstructive coronary disease, hypertension, hyperlipidemia, and probable raynauds phenomenon. He returns for follow-up visit. You do remember he underwent stress echocardiographic evaluation in 2018 with no evidence of ischemia. He also underwent stress echocardiogram on 05/05/2021 that was negative for ischemia at a high workload. He denies chest, arm, jaw, or neck discomfort. He denies symptoms of shortness of breath with exertion, shortness of breath at rest, orthopnea, PND, sudden weight gain, or bilateral lower extremity edema. He denies chronic cough. He denies palpitations, lightheadedness, dizziness, near syncope, or syncopal episodes. He denies claudication issues. He denies fever or chills. He denies blood in urine, blood in stool, or epistaxis. He denies myalgia. He denies unexplainable fatigue. His exercise tolerance is stable. Intake Vital Signs 10/10/21 08:51 10/10/21 13:15 Height 6 ft 1 in Weight: 172 lb BP 144/87 H 135/85 H Respiration 16 Pulse 74 Pulse Oximetry (%) 100 Intake Visit Reasons: 1 Y FU Allergies No Known Allergies Allergy (Verified 10/10/21 08:52) Medications pcbmzayymc-zjsqflo-oduyxibp 1 tab PO DAILY PRN PRN 05/21/16 [History Confirmed 10/10/21] coenzyme Q10 30 mg PO DAILY 05/21/16 [History Confirmed 10/10/21] diazepam 0.5 - 1 tab PO DAILY PRN PRN 05/21/16 [History Confirmed 10/10/21] multivitamin 1 ea PO DAILY 05/21/16 [History Confirmed 10/10/21] cyanocobalamin (vitamin B-12) 2,000 mcg PO DAILY 04/22/17 [History Confirmed 10/10/21] omega 3-djl-wsk-fish oil 1 tab PO DAILY 04/22/17 [History Confirmed 10/10/21] ascorbic acid (vitamin C) 1,000 mg tablet 1 g PO QDAY tab 09/25/17 [History Confirmed 10/10/21] dexlansoprazole 30 mg capsule,biphase delayed release 30 mg PO DAILY 10/06/20 [History Confirmed 10/10/21] doxylamine succinate 25 mg tablet 12.5 mg PO QHS PRN tab 10/06/20 [History Confirmed 10/10/21] famotidine 20 mg tablet 20 mg PO DAILY PRN 10/06/20 [History Confirmed 10/10/21] melatonin 12 mg tablet 12 mg PO .at bedtime tab 10/06/20 [History Confirmed 10/10/21] lisinopril 5 mg tablet 5 mg PO DAILY #90 tab 10/10/21 [Rx Confirmed 10/10/21] rosuvastatin 5 mg tablet 5 mg PO DAILY tab 10/10/21 [History Confirmed 10/10/21] s-adenosylmethionine 400 mg tablet 800 mg PO DAILY 10/10/21 [History Confirmed 10/10/21] Ejection fraction %: 60 to 64 PFSH Medical History Chronic renal insufficiency Essential (primary) hypertension Hyperlipidemia Mitral valve annular calcification Palpitations Raynaud disease Family History Father Cancer Mother , age 72 CAD (coronary artery disease) Hypertension Social History Smoking Status: Never smoker ROS Const Const: Negative for fatigue, weakness, headache(s), frequent falls, difficulty sleeping or excessive sweating Eyes Eyes: Negative for loss of peripheral vision, transient loss of vision, blurry vision, double vision or tunnel vision ENT ENT: Negative for headache(s), dizziness, Nosebleed/epistaxis or balance problems Cardio Chest Pain: No Palpitations: No Edema: None Muscle aches with walking: None Resp Respiratory: Negative for SOB with activity, SOB at rest, SOB orthopnea SOB lying down, Cough or paroxysmal nocturnal dyspnea GI GI: Negative nausea, vomiting, heartburn or black,tarry stools : Negative for hematuria Musc Musc: Negative for muscle aches/ myalgia, muscle weakness, joint pain or balance problems Skin Skin: Negative non-healing lesions, rash or unusual bruising Neuro Neuro: Negative for dizziness, lightheadedness, near syncope, syncope, orthostatic symptoms, frequent falls, headache(s), weakness, blurry vision, double vision or lack of coordination Tang Hematologic/Lymphatic: Negative for easy bleeding or easy bruising Endo Endo: Negative for fatigue, excessive sweating or increased thirst/drinking Psych Psych: Negative for anxiety or depression Allergy Allergy/Immunology: Negative for hives and Negative for rash Cardiology Exam Const Appearance: cooperative, healthy appearing, no acute distress, well developed and well groomed Nutritional Appearance: average body habitus and well nourished Orientation: alert, awake and oriented x3 Head Head: normal to inspection, normocephalic and atraumatic Ears: hearing grossly normal bilaterally and external ears normal Nose: external nose normal, nares normal, nasal mucous membranes and turbinates normal, septum normal and no nasal discharge Face and Sinus: face symmetric Mouth: oral mucosae normal, tongue normal, oropharynx normal and moist mucous membranes Teeth and gingiva: dentition normal Throat: posterior oropharynx normal, tonsils normal and uvula midline Eyes General: appearance normal, both eyes and all related structures Eyelids: eyelids normal Conjunctivae: conjunctivae normal Pupils: PERRL, normal by confrontation and accommodation normal EOM: EOM intact bilaterally Neck Neck: normal visual inspection, trachea midline and no JVD JVD: +5 Carotids: normal carotid upstroke and bounding pulses Chest Chest inspection: normal inspection of the chest, symmetric chest movement and normal respiratory effort Auscultation: Bilateral: Clear to Auscultation Cardio Palpation: normal PMI Rate: regular rate Rhythm: regular rhythm Heart sounds: S1 normal, S2 normal and normal, physiologic split S2; Negative rub, gallop or murmur GI GI: normal to inspection, soft, no hepatosplenomegaly and bowel sounds present Neuro General: patient alert, patient awake, patient oriented x3, gait normal, moves all extremities and no focal sensory deficit Skin Skin: no rashes or lesions noted Extremities Pulses: Normal: Right Femoral Pulse, Left Femoral Pulse, Right Dorsalis Pedis Pulse, Left Dorsalis Pedis Pulse, Right Posterior Tibial Pulse, Left Posterior Tibial Pulse, Right Radial Pulse and Left Radial Pulse Lower Extremity Edema: None: Bilateral Musculoskel Musculoskeletal: No joint tenderness Psych Psychological: normal affect Supplemental Info Supplemental Information Echocardiogram from 05/01/2021: Interpretation Summary Normal LV size. Left ventricular systolic function is normal. The estimated ejection fraction is 60 %. Stage 1 diastolic dysfunction. Mild (1+) eccentric mitral valve insufficiency. Mild mitral valve prolapse, posterior leaflet Stress test from ETT 05/05/2021: Conclusion Stress test with no EKG criteria for ischemia at a high workload. Excellent functional aerobic capacity. No arrhythmias noted. Laboratory Tests 10/05/21 06:20 Triglycerides 83 Cholesterol 230 H LDL Cholesterol 134 H HDL Cholesterol 79 Labs: LDL Cholesterol 134 mg/dL (0-130) H HDL Cholesterol 79 mg/dL (40-) Triglycerides 83 mg/dL (-199) VLDL Cholesterol 17 mg/dL (5-40) Diagnostics: Electrocardiogram Echocardiogram Stress Echocardiogram Stress Test Pulmonary: No Data to Display Assessment and Plan Assessment and Plan (1) Essential (primary) hypertension: Status: Chronic Plan - Dr. Petros Valdez MD: His blood pressure still appears to be elevated I will suggest that we increase the lisinopril to 5 mg a day and for him to continue monitoring his blood pressure during the week. He will check with you in a few days to see how he is doing. (2) Hyperlipidemia: Status: Chronic Qualifiers: Hyperlipidemia type: pure hypercholesterolemia Qualified Code(s): E78.00 - Pure hypercholesterolemia, unspecified; E78.0 - Pure hypercholesterolemia Plan - Dr. Petros Valdez MD: He does have a history of hyperlipidemia. You know he did not tolerate the Lipitor very well he appears to be tolerating rosuvastatin better and his most recent lipid profile demonstrating an LDL of 134 and an HDL of 79. The former is an improvement on before. We will continue to monitor this he tells me that he will be seeing you in a few weeks and I will leave this for you to address. Plan Details Other Medications: Changed: From: lisinopril 2.5 mg PO DAILY 90 tabs 3RF To: lisinopril 5 mg PO DAILY 90 tabs 3RF Additional Comments: Portions of this documentation were copied and pasted from previous office visit notes to provide a cohesive continuity of the history. The note has been reviewed, edited, and updated, as necessary. 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) Coding Level of Care Code Off vis,est,level 3 Diagnoses Essential (primary) hypertension I10 Hyperlipidemia E78.00; E78.0 Hyperlipidemia type: pure hypercholesterolemia Coding Level of Care Code Off vis,est,level 3 Diagnoses Essential (primary) hypertension I10 Hyperlipidemia E78.00; E78.0 Hyperlipidemia type: pure hypercholesterolemia 10/10/21 1334 <Electronically signed by Petros Valdez MD> Date __ Petros Valdez MD Cosigner Signature: Date __ (if applicable) CC: MD Francheska Cody DO Work Phone: Start: 09-25-2016 End: 09-25-2016 REESE Valdez MD Start: 09-25-2016 End: 09-25-2016 Electrocardiogram, complete Petros Valdez MD Start: 09-25-2016 End: 09-25-2016 Follow Up Appt 1 year Petros Valdez MD Start: 09-23-2015 End: 09-23-2015 REESE Valdez MD Start: 09-23-2015 End: 09-23-2015 Follow Up Appt 1 year Petros Valdez MD Start: 09-19-2015 End: 09-19-2015 *Hepatic Function Panel Juan Ramon Oh Start: 09-19-2015 End: 09-19-2015 Lipid panel [AGGREGATE] Juan Ramon Oh Start: 08-17-2014 End: 08-17-2014 SUPERVISORY INVESTIGATIVE SPECIALIST Petros Valdez MD Start: 08-17-2014 End: 08-17-2014 Follow Up Appt 1 year Petros Valdez MD Start: 08-18-2013 End: 07-06-2015 *Hepatic Function Panel Juan Ramon Oh Start: 08-18-2013 End: 08-18-2013 SUPERVISORY INVESTIGATIVE SPECIALIST Petros Valdez MD Start: 08-18-2013 End: 08-18-2013 Follow Up Appt 1 year Petros Valdez MD Start: 08-18-2013 End: 07-06-2015 Lipid panel [AGGREGATE] Juan Ramon Oh Start: 11-28-2012 End: 07-06-2015 *Hepatic Function Panel Juan Ramon Oh Start: 11-28-2012 End: 07-06-2015 Lipid panel [AGGREGATE] Juan Ramon Oh Start: 11-21-2012 End: 07-06-2015 Cardiovascular stress test using treadmill Tea Hart PA-C Work Phone: Start: 09-05-2012 End: 07-06-2015 *CRPHS - C-reactive protein, high sensitivity (hsCRP) Petros Valdez MD Start: 09-05-2012 End: 09-05-2012 Follow Up Appt 1 year Petros Valdez MD Start: 12-18-2011 End: 03-25-2012 *Hepatic Function Panel Juan Ramon Oh Start: 12-18-2011 End: 03-25-2012 Lipid panel [AGGREGATE] Alexa Mcclure MA Start: 08-28-2011 End: 09-18-2011 *Hepatic Function Panel Juan Ramon Oh Start: 08-28-2011 End: 07-06-2015 Follow Up Appt 6 months Juan Ramon Oh Start: 08-28-2011 End: 09-18-2011 Lipid panel [AGGREGATE] Juan Ramon Oh Appendectomy Yoko Slarb LP N Appendectomy Naida Manchak PRODUCTION MACHINE SHOP SUPERVISOR Appendectomy Naida Manchak PRODUCTION MACHINE SHOP SUPERVISOR Appendectomy Kayela Madiha PRODUCTION MACHINE SHOP SUPERVISOR Appendectomy Francheska A Fast DO Work Phone: Appendectomy Naida Manchak PRODUCTION MACHINE SHOP SUPERVISOR Appendectomy Naida Manchak PRODUCTION MACHINE SHOP SUPERVISOR Appendectomy Naida Manchak PRODUCTION MACHINE SHOP SUPERVISOR Appendectomy Naida Manchak PRODUCTION MACHINE SHOP SUPERVISOR Double hernia Yoko Slarb L PN Double hernia Naida Kyra k PRODUCTION MACHINE SHOP SUPERVISOR Double hernia Naida Kyra k PRODUCTION MACHINE SHOP SUPERVISOR Double hernia Kayela Charlotte PRODUCTION MACHINE SHOP SUPERVISOR Double hernia Francheska A Fast D O Work Phone: Double hernia Naida Kyra k PRODUCTION MACHINE SHOP SUPERVISOR Double hernia Naida Kyra k PRODUCTION MACHINE SHOP SUPERVISOR Double hernia Naida Kyra k PRODUCTION MACHINE SHOP SUPERVISOR Double hernia Naida Kyra k PRODUCTION MACHINE SHOP SUPERVISOR Hydrocele Yoko Slarb LP N Hydrocele Naida Manchak PRODUCTION MACHINE SHOP SUPERVISOR Hydrocele Naida Manchak PRODUCTION MACHINE SHOP SUPERVISOR Hydrocele Kayela Madiha PRODUCTION MACHINE SHOP SUPERVISOR Hydrocele Francheska A Fast DO Work Phone: Hydrocele Naida Manchak PRODUCTION MACHINE SHOP SUPERVISOR Hydrocele Naida Manchak PRODUCTION MACHINE SHOP SUPERVISOR Hydrocele Naida Manchak PRODUCTION MACHINE SHOP SUPERVISOR Hydrocele Naida Manchak PRODUCTION MACHINE SHOP SUPERVISOR Partial thyroidectomy Yoko Slarb THEATER EDUCATION TEACHER Partial thyroidectomy Chelse a Manchak PRODUCTION MACHINE SHOP SUPERVISOR Partial thyroidectomy Chelse a Manchak PRODUCTION MACHINE SHOP SUPERVISOR Partial thyroidectomy Kayela Madiha PRODUCTION MACHINE SHOP SUPERVISOR Partial thyroidectomy Francheska A Fast DO Work Phone: Partial thyroidectomy Chelse a Manchak PRODUCTION MACHINE SHOP SUPERVISOR Partial thyroidectomy Chelse a Manchak PRODUCTION MACHINE SHOP SUPERVISOR Partial thyroidectomy Chelse a Manchak PRODUCTION MACHINE SHOP SUPERVISOR Partial thyroidectomy Chelse a Manchak PRODUCTION MACHINE SHOP SUPERVISOR right hand CMC Yoko Slarb THEATER EDUCATION TEACHER right hand CMC Naida Manch ak PRODUCTION MACHINE SHOP SUPERVISOR right hand CMC Naida Manch ak PRODUCTION MACHINE SHOP SUPERVISOR right hand CMC Kayela Radfor d PRODUCTION MACHINE SHOP SUPERVISOR right hand CMC Francheska A Fast DO Work Phone: right hand CMC Naida Manch ak PRODUCTION MACHINE SHOP SUPERVISOR right hand CMC Naida Manch ak PRODUCTION MACHINE SHOP SUPERVISOR right hand CMC Naida Manch ak PRODUCTION MACHINE SHOP SUPERVISOR right hand CMC Naida Manch ak PRODUCTION MACHINE SHOP SUPERVISOR Tonsillectomy Yoko Slarb L PN Tonsillectomy Naida Kyra k PRODUCTION MACHINE SHOP SUPERVISOR Tonsillectomy Naida Kyra k PRODUCTION MACHINE SHOP SUPERVISOR Tonsillectomy Kayela Charlotte PRODUCTION MACHINE SHOP SUPERVISOR Tonsillectomy Francheska A Fast D O Work Phone: Tonsillectomy Naida Kyra k PRODUCTION MACHINE SHOP SUPERVISOR Tonsillectomy Naida Kyra k PRODUCTION MACHINE SHOP SUPERVISOR Tonsillectomy Naida Kyra k PRODUCTION MACHINE SHOP SUPERVISOR Tonsillectomy Naida Kyra k PRODUCTION MACHINE SHOP SUPERVISOR TURP Yoko Slarb LP N TURP Naida Manchak PRODUCTION MACHINE SHOP SUPERVISOR TURP Naida Manchak PRODUCTION MACHINE SHOP SUPERVISOR TURP Kayela Madiha PRODUCTION MACHINE SHOP SUPERVISOR TURP Francheska A Fast DO Work Phone: TURP Naida Manchak PRODUCTION MACHINE SHOP SUPERVISOR TURP Naida Manchak PRODUCTION MACHINE SHOP SUPERVISOR TURP Naida Manchak PRODUCTION MACHINE SHOP SUPERVISOR TURP Naida Manchak PRODUCTION MACHINE SHOP SUPERVISOR Plan of Treatment Date Care Activity Detail Author Start: 06-03-2023 Procedure Education Eprescribed prescriptions (G8553) [facility]; [facility] Work Phone: Start: 06-03-2023 Blood count complete auto&auto difrntl wbc CBC W/AUTO DIFF WBC (71796) [facility]; [facility] Work Phone: Start: 06-03-2023 Comprehensive metabolic panel METABOLIC PANEL, COMPREHENSIVE (65685) [facility]; [facility] Work Phone: Start: 02-25-2023 Procedure Education Eprescribed prescriptions (G8553) [facility]; [facility] Work Phone: Start: 02-25-2023 Blood count complete auto&auto difrntl wbc CBC W/AUTO DIFF WBC (81540) [facility]; [facility] Work Phone: Start: 02-25-2023 Comprehensive metabolic panel METABOLIC PANEL, COMPREHENSIVE (13196) [facility]; [facility] Work Phone: Start: 02-25-2023 Lipid panel LIPID PANEL (76510) [facility]; [facility] Work Phone: Start: 02-25-2023 Sedimentation rate rbc non-automated SED RATE ERYTHROCYTE (45416) [facility]; [facility] Work Phone: Start: 02-25-2023 C-reactive protein C-REACTIVE PROTEIN (65221) [facility]; [facility] Work Phone: Start: 02-25-2023 Antinuclear antibodies mario MARIO (ANTINUCLEAR ANTIBODY) (16693) [facility]; [facility] Work Phone: Start: 02-25-2023 Rheumatoid factor quantitative RHEUMATOID FACTOR-QUANT (84554) [facility]; [facility] Work Phone: Start: 11-12-2022 Procedure Education Eprescribed prescriptions (G8553) [facility]; [facility] Work Phone: Start: 11-12-2022 Lipid panel LIPID PANEL (50740) [facility]; [facility] Work Phone: Start: 11-12-2022 Blood count complete auto&auto difrntl wbc CBC W/AUTO DIFF WBC (18349) [facility] Work Phone: Start: 11-12-2022 Comprehensive metabolic panel METABOLIC PANEL, COMPREHENSIVE (16718) [facility]; [facility] Work Phone: Start: 11-12-2022 25 hydroxy includes fractions if performed Vitamin D Hydroxy (54846) [facility]; [facility] Work Phone: Start: 11-12-2022 Assay of prostate specific antigen total PSA (Medicare - G0103) (54818) [facility]; [facility] Work Phone: Start: 07-30-2022 25 hydroxy includes fractions if performed Vitamin D Hydroxy (64212) [facility]; [facility] Work Phone: Start: 07-30-2022 Blood count complete auto&auto difrntl wbc CBC W/AUTO DIFF WBC (54773) [facility]; [facility] Work Phone: Start: 07-30-2022 Comprehensive metabolic panel METABOLIC PANEL, COMPREHENSIVE (57152) [facility]; [facility] Work Phone: Start: 07-30-2022 Lipid panel LIPID PANEL (15344) [facility]; [facility] Work Phone: Start: 07-30-2022 Procedure Education Eprescribed prescriptions (G8553) [facility]; [facility] Work Phone: Start: 05-10-2022 Influenza vaccination [facility]FLUENZA (#1) [facility] Start: 05-08-2022 Dehydroepiandrosterone DHEA (DEHYDROEPIANDROSTER ONE) (04373) [facility]; [facility] Work Phone: Start: 05-08-2022 Assay of estradiol ESTRADIOL (65581) [facility]; [facility] Work Phone: Start: 05-08-2022 Gonadotropin chorionic qualitative HCG (HUMAN CHORIONIC GONADOTROPIN) (22015) [facility]; [facility] Work Phone: Start: 05-08-2022 Assay of prolactin PROLACTIN (52970) [facility]; [facility] Work Phone: Start: 05-08-2022 Gonadotropin follicle stimulating hormone FSH AND LH (46658) [facility]; [facility] Work Phone: Start: 05-08-2022 Assay of testosterone free TESTOSTERONE FREE (89791) [facility]; [facility] Work Phone: Start: 05-08-2022 Assay of testosterone total TESTOSTERONE TOTAL (65402) [facility]; [facility] Work Phone: Start: 03-23-2022 Procedure Education Eprescribed prescriptions (G8553) [facility]; [facility] Work Phone: Start: 01-24-2022 Procedure Education Eprescribed prescriptions (G8553) [facility]; [facility] Work Phone: Start: 01-24-2022 Urnls dip stick/tablet reagent auto microscopy URINALYSIS, W/ MICRO (07536) [facility]; [facility] Work Phone: Start: 01-24-2022 Blood count complete auto&auto difrntl wbc CBC W/AUTO DIFF WBC (58426) [facility]; [facility] Work Phone: Start: 01-24-2022 Comprehensive metabolic panel METABOLIC PANEL, COMPREHENSIVE (83104) [facility]; [facility] Work Phone: Start: 01-15-2022 Assay of prostate specific antigen total PSA (PROSTATE SPECIFIC ANTIGEN) (35589) [facility]; [facility] Work Phone: Comment on above: please draw with 2021 labs Start: 10-25-2021 Procedure Education Eprescribed prescriptions (G8553) [facility]; [facility] Work Phone: Start: 10-25-2021 Lipid panel LIPID PANEL (89901) [facility]; [facility] Work Phone: Start: 10-25-2021 Comprehensive metabolic panel METABOLIC PANEL, COMPREHENSIVE (30020) [facility]; [facility] Work Phone: Start: 09-09-2021 ADVANCE DIRECTIVE DISCUSSION ADVANCE DIRECTIVE DISCUSSION [facility] Start: 07-11-2021 Procedure Education Eprescribed prescriptions (G8553) [facility]; [facility] Work Phone: Start: 07-11-2021 Provider Instructions for Treatment [facility]; [facility] Work Phone: Start: 07-11-2021 Lipid panel LIPID PANEL (03171) [facility]; [facility] Work Phone: Start: 07-11-2021 Comprehensive metabolic panel METABOLIC PANEL, COMPREHENSIVE (60262) [facility]; [facility] Work Phone: Start: 07-11-2021 Cyanocobalamin vitamin b-12 VITAMIN B12 AND FOLATES (96085) [facility]; [facility] Work Phone: Start: 07-11-2021 Hepatitis c antibody HEPATITIS C ANTIBODY (50006) [facility]; [facility] Work Phone: Start: 05-16-2021 Procedure Education Eprescribed prescriptions (G8553) [facility]; [facility] Work Phone: Start: 05-16-2021 Urnls dip stick/tablet reagent auto microscopy URINALYSIS, W/ MICRO (77302) [facility]; [facility] Work Phone: Start: 09-26-2017 End: 09-26-2017 Appointment Appointment [facility] [employer] Work Phone: Start: 04-30-2017 End: 04-30-2017 Appointment Appointment [employer] [facility] Work Phone: Start: 04-15-2017 End: 04-15-2017 Appointment Appointment [facility] [employer] Work Phone: Start: 09-25-2016 End: 09-25-2016 SUPERVISORY INVESTIGATIVE SPECIALIST SUPERVISORY INVESTIGATIVE SPECIALIST [facility] [employer] Work Phone: Start: 09-25-2016 End: 09-25-2016 Electrocardiogram, complete EKG (In office) [facility] [employer] Work Phone: Start: 09-25-2016 End: 09-25-2016 Follow Up Appt 1 year Follow Up Appt 1 year [facility] [employer] Work Phone: Start: 03-20-2016 End: 09-20-2015 *Hepatic Function Panel *Hepatic Function Panel [facility] [employer] Work Phone: Start: 03-20-2016 End: 09-20-2015 Lipid panel [AGGREGATE] *Lipid Profile CC PCP [facility] [employer] Work Phone: Start: 10-07-2015 End: 09-19-2015 *Hepatic Function Panel *Hepatic Function Panel [facility] [employer] Work Phone: Start: 10-07-2015 End: 09-19-2015 Lipid panel [AGGREGATE] *Lipid Profile CC PCP [facility] [employer] Work Phone: Start: 09-23-2015 End: 09-23-2015 SUPERVISORY INVESTIGATIVE SPECIALIST SUPERVISORY INVESTIGATIVE SPECIALIST [facility] [employer] Work Phone: Start: 09-23-2015 End: 09-23-2015 Follow Up Appt 1 year Follow Up Appt 1 year [facility] [employer] Work Phone: Start: 08-17-2014 End: 08-17-2014 SUPERVISORY INVESTIGATIVE SPECIALIST SUPERVISORY INVESTIGATIVE SPECIALIST [facility] [employer] Work Phone: Start: 08-17-2014 End: 08-17-2014 Follow Up Appt 1 year Follow Up Appt 1 year [facility] [employer] Work Phone: Start: 01-11-2014 DIABETES SCREEN DIABETES SCREEN [facility] Start: 08-18-2013 End: 07-06-2015 *Hepatic Function Panel *Hepatic Function Panel [facility] [employer] Work Phone: Start: 08-18-2013 End: 08-18-2013 SUPERVISORY INVESTIGATIVE SPECIALIST SUPERVISORY INVESTIGATIVE SPECIALIST [facility] [employer] Work Phone: Start: 08-18-2013 End: 08-18-2013 Follow Up Appt 1 year Follow Up Appt 1 year [facility] [employer] Work Phone: Start: 08-18-2013 End: 07-06-2015 Lipid panel [AGGREGATE] *Lipid Profile CC PCP [facility] [employer] Work Phone: Start: 11-28-2012 End: 07-06-2015 *Hepatic Function Panel *Hepatic Function Panel [facility] [employer] Work Phone: Start: 11-28-2012 End: 07-06-2015 Lipid panel [AGGREGATE] *Lipid Profile [facility] [employer] Work Phone: Start: 11-21-2012 End: 07-06-2015 Cardiovascular stress test using treadmill Treadmill stress test (no imaging) [facility] [employer] Work Phone: Start: 09-05-2012 End: 07-06-2015 *CRPHS - C-reactive protein, high sensitivity (hsCRP) *CRPHS - C-reactive protein, high sensitivity (hsCRP) [facility] [employer] Work Phone: Start: 09-05-2012 End: 09-05-2012 Follow Up Appt 1 year Follow Up Appt 1 year [facility] [employer] Work Phone: Start: 12-18-2011 End: 03-25-2012 *Hepatic Function Panel *Hepatic Function Panel [facility] [employer] Work Phone: Start: 12-18-2011 End: 03-25-2012 Lipid panel [AGGREGATE] *Lipid Profile [facility] [employer] Work Phone: Start: 08-28-2011 End: 09-18-2011 *Hepatic Function Panel *Hepatic Function Panel [facility] [employer] Work Phone: Start: 08-28-2011 End: 07-06-2015 Follow Up Appt 6 months Follow Up Appt 6 months [facility] [employer] Work Phone: Start: 08-28-2011 End: 09-18-2011 Lipid panel [AGGREGATE] *Lipid Profile [facility] [employer] Work Phone: Start: 2010 PNEUMOCOCCAL: 65+ (1 - PCV) PNEUMOCOCCAL: 65+ (1 - PCV) [facility] Start: 1995 SHINGRIX VACCINE (1 of 2) SHINGRIX VACCINE (1 of 2) [facility] Start: 1964 Urine microalbumin profile DTAP,TDAP,TD (1 - Tdap) [facility] Start: 1963 ANNUAL PCP TEAM CHRONIC DISEASE VISIT ANNUAL PCP TEAM CHRONIC DISEASE VISIT [facility] Start: 1957 Adult depression screening assessment DEPRESSION SCREENING [facility] Patient Education HYPERLIPIDEMIA , PALPITATIONS [facility] [employer] Work Phone: SURGICAL PATHOLOGY SURGICAL PATH OLOGY Lab Routine Subareolar mass of right breast 04/17/2022 2:10 PM EDT [facility] Work Phone: [facility]; [facility] Work Phone: [facility]; [facility] Work Phone: [facility]; [facility] Work Phone: [facility]; [facility] Work Phone: [facility]; [facility] Work Phone: [facility]; [facility] Work Phone: [facility]; [facility] Work Phone: [facility]; [facility] Work Phone: [facility]; [facility] Work Phone: [facility]; [facility] Work Phone: Immunizations Immunization Date Immunization Notes Care Provider [facility] 07-08-2023 COVID-Moderna (100 MCG/0.5 ML) Francheska Fast DO Work Phone: [facility]; [facility] Work Phone: Comment on above: Spikevax 12-06-2021 COVID-Moderna (50 MCG/0.25 ML) Francheska Fast DO Work Phone: [facility]; [facility] Work Phone: Comment on above: @ [facility] 06-24-2021 COVID-Moderna (100 MCG/0.5 ML) Francheska Fast DO Work Phone: [facility]; [facility] Work Phone: 05-10-2021 influenza, injectabl e, quadrivalent, preservative free Francheska Fast DO Work Phone: [facility]; [facility] Work Phone: 09-09-2019 pneumococcal polysaccharide vaccine, 23 valent Francheska Fast DO Work Phone: [facility]; [facility] Work Phone: Payers Date Payer Category Payer Medicare MMO MEDICARE MMO MED[employer]AGE O [id number] 2021-Present [phone] [address] [place] [address] [facility] [id number] 2021 Medicare MMO MEDICARE MMO [employer]VANT[employer] O [id number] 2021-Present [phone] [address] [place] [address] O [id number] 2021 Unknown [id number] 2020 Medicare [id number] 2020 Unknown [id number] 1945 Unknown [id number] Medicare [id number] Unknown Social History Date Type Detail Facility Alcohol Use: Alcohol Use: [facility] Work Phone: Comment on above: wine Tobacco Use: Tobacco Use: [facility] Work Phone: Start: 11-24-2010 End: 12-29-2010 Tobacco smoking status NHIS Never smoked tobacco [facility] Work Phone: Start: 11-24-2010 End: 12-29-2010 Tobacco use and exposure Smokeless tobacco non-user [facility] Work Phone: Start: 04-10-2022 End: 04-17-2022 Alcohol intake Current drinker of alcohol (finding) [facility] Start: 04-10-2022 End: 04-17-2022 Alcohol intake [facility] Start: 1945 Sex Assigned At Not on file [facility] Start: 03-31-2022 End: 04-17-2022 Exposure to SARS-CoV-2 (event) Not sure [facility] Clinical Notes 04-10-2022 to 04-17-2022 Mal Velazquez MD - 04/17/2022 2:10 PM Michael Plaza - 04/17/2022 1:39 PM CUBATMal Velazquez MD - 04/10/2022 3:15 PM Rosa Maria García RN - 04/10/2022 9:32 AM EDT Note Date & Type Note Facility 04-17-2022 Note HNO ID: [id number] Author: Mal Velazquez MD Service: ? Author Type: Physician Type: Progress Notes Filed: 04/17/2022 2:11 PM Note Text: Preoperative diagnosis: Subcutaneous mass to right breast Postoperative diagnosis: The same Procedure: Ultrasound-guided needle core biopsy subcutaneous mass to right breast Surgeon: Marcus Procedure: Right breast underneath the nipple areolar complex showed the mass in question. Prepped the skin with Betadine. Injected 1% lidocaine plain. Injected local down to the mass. Skin john was made. Under ultrasound guidance 2 needle core biopsies were obtained. Under ultrasound guidance a small titanium clip was placed at the biopsy cavity. Sterile dressings were applied and the patient tolerated the procedure well. [facility] 04-17-2022 Note HNO ID: [id number] Author: Ofelia Plaza Service: ? Author Type: ? Type: Progress Notes Filed: 04/17/2022 2:06 PM Note Text: UNIVERSAL PROTOCOL / SAFETY CHECKLIST Procedure to be Performed: Ultrasound Guided Needle Core Biopsy Right Breast Sign In: A Moment of CARE was completed. Personnel directly involved with the procedure wore the appropriate PPE (Personal Protective Equipment). Patient/Surrogate Stated/Verified: PATIENT VERIFIED(optional for EMERGENT procedures): Patient name, Date of , Relevant allergies, and The intended procedure Time Out Communication: Intended patient and procedure match the source documents. Consent documented and matches the intended procedure. Sign Out: SIGN OUT (optional for EMERGENT procedures): All specimen containers correctly labeled. Ofelia Plaza [facility] 04-17-2022 History of Present illness Narrative Preoperative diagnosis: Subcutaneous mass to right breast Postoperative diagnosis: The same Procedure: Ultrasound-guided needle core biopsy subcutaneous mass to right breast Surgeon: Marcus Procedure: Right breast underneath the nipple areolar complex showed the mass in question. Prepped the skin with Betadine. Injected 1% lidocaine plain. Injected local down to the mass. Skin john was made. Under ultrasound guidance 2 needle core biopsies were obtained. Under ultrasound guidance a small titanium clip was placed at the biopsy cavity. Sterile dressings were applied and the patient tolerated the procedure well. UNIVERSAL PROTOCOL / SAFETY CHECKLIST Procedure to be Performed: Ultrasound Guided Needle Core Biopsy Right Breast Sign In: A Moment of CARE was completed. Personnel directly involved with the procedure wore the appropriate PPE (Personal Protective Equipment). Patient/Surrogate Stated/Verified: PATIENT VERIFIED(optional for EMERGENT procedures): Patient name, Date of , Relevant allergies, and The intended procedure Time Out Communication: Intended patient and procedure match the source documents. Consent documented and matches the intended procedure. Sign Out: SIGN OUT (optional for EMERGENT procedures): All specimen containers correctly labeled. Ofelia Plaza documented in this encounter [facility] 04-10-2022 Note HNO ID: [id number] Author: Mal Velazquez MD Service: ? Author Type: Physician Type: Progress Notes Filed: 04/10/2022 3:18 PM Note Text: HISTORY AND PHYSICAL - BREAST COMPLAINT Jung Coleman 1945 REFERRING PHYSICIAN: Francheska Alonzo DO CHIEF COMPLAINT: Right-sided breast mass HPI: The patient is a 76 year old male with a complaint of a palpable breast mass. The patient notes a mass in the retroaerolar portion of her right breast. The patient has noticed this mass for several months.. The patient had a mammogram with ultrasound on 04/05/2022 which demonstrated findings consistent with prominent gynecomastia on the right side but some also located on the left side as well.. She does perform a self breast exam routinely. She notes no skin changes. She denies nipple discharge. She notes no axillary masses. She notes no family history of breast problems. She notes no significant breast trauma or breast difficulties in the past. The patient is being seen by me today at the request of Dr. Francheska Alonzo DO for my opinion and advice regarding Subareolar mass of right breast (primary encounter diagnosis). PAST MEDICAL HISTORY Diagnosis Date - BPH (benign prostatic hypertrophy) with urinary retention - Coronary artery disease - Hypertension PAST SURGICAL HISTORY Procedure Laterality Date - APPENDECTOMY - COLONOSCOPY - COLONOSCOPY FLX DX W/COLLJ SPEC WHEN PFRMD 12/16/2017 Colonoscopy - ESOPHAGOGASTRODUODENOSCOPY TRANSORAL DIAGNOSTIC 12/16/2017 EGD - HERNIA REPAIR HX 05/10/2017 - PNXR ASPIR HYDROCELE TUNICA VAGIS W/WO NJX MED - THYROIDECTOMY TOTAL/COMPLETE 09/09/2009 - TRURL ELECTROSURG RESCJ PROSTATE BLEED COMPLETE 05/10/2016 Current Outpatient Medications Medication Sig Dispense Refill - atorvastatin (LIPITOR) 20 mg tablet Take 20 mg by mouth once daily. - lisinopril (ZESTRIL, PRINIVIL) 5 mg tablet Take 5 mg by mouth once daily. - famotidine (PEPCID) 20 mg tablet Take 40 mg by mouth DAILY AT 6 PM. - Cholecalciferol, Vitamin D3, 5,000 unit Tab Take 1 tablet by mouth once daily. 0 - Coenzyme Q10 (COQ-10) 100 mg Cap Take 1 capsule by mouth once daily. 0 - Ascorbic Acid (VITAMIN C) 500 mg ORAL CpER Take 1 tablet by mouth twice daily. 0 - Multivitamin ORAL capsule Take 1 capsule by mouth once daily. 0 - S-Adenosylmethionine (JORDYN-E, ENTERIC COATED,) 400 mg ORAL TbEC Take 1 tablet by mouth once daily. 0 - omeprazole (PRILOSEC) 20 mg capsule Take 20 mg by mouth once daily. (Patient not taking: Reported on 04/10/2022 ) No current facility-administered medications for this visit. ALLERGIES: Patient has no known allergies. PERSONAL HISTORY: Social History Tobacco Use - Smoking status: Never Smoker - Smokeless tobacco: Never Used Vaping Use - Vaping Use: Never used Substance Use Topics - Alcohol use: Yes Alcohol/week: 17.5 standard drinks Types: 7 Glasses of Wine (5oz) per week - Drug use: No FAMILY HISTORY: FAMILY HISTORY Problem Relation Age of Onset - Heart Mother - Breast Cancer Mother - Heart Father - Colon Cancer Father REVIEW OF SYMPTOMS: The review of systems data was entered by the nurse and reviewed by ia Nursing Notes: Kirstie García RN 04/10/2022 9:38 AM Signed REVIEW OF SYSTEMS: General: The patient denies fatigue, denies weight loss, denies weight gain, denies feeling hot, and NOTES feelings of cold. Eyes: The patient denies glaucoma, denies eye injury/surgery, does not wear glasses or contacts. Ear/Nose/Throat: The patient denies allergies, denies hayfever, denies ear infections, and denies bloody noses. Cardiovascular: The patient denies chest pain, denies heart disease, NOTES high blood pressure,denies cardiac stent, denies prior heart attack, denies irregular heart beat, denies high cholesterol, denies poor circulation, denies heart failure, other cardiac issues, denies claudication, denies cold feet, denies peripheral arterial stent. Respiratory: The patient denies tuberculosis, denies pneumonia, denies frequent cough, denies pulmonary embolism, denies shortness of breath, and denies coughing up blood. Gastrointestinal: The patient denies difficulty swallowing, NOTES acid reflux, denies ulcers, denies vomiting, NOTES jaundice/hepatitis, denies gallbladder problems, denies black or tarry stools, denies hemorrhoids, denies bleeding from rectum, denies diverticulitis, denies constipation, denies diarrhea, denies loss of stool control, and NOTES hernias. Kidney/Bladder: The patient denies kidney stones, denies urine infections, and denies bloody urine. Skin: The patient denies a history of skin cancer, denies bleeding/changing moles, and denies a history of skin rash. Neurologic: The patient denies a history of epilepsy/convulsions, denies headaches, denies head/spinal injuries, and denies stroke/TIA. Psychiatric: The patient denies psychiatric medications, denies depression, and denies voices, (more content not included)... [facility] 04-10-2022 History of Present illness Narrative HISTORY AND PHYSICAL - BREAST COMPLAINT Jung Coleman 1945 REFERRING PHYSICIAN: Francheska Alonzo DO CHIEF COMPLAINT: Right-sided breast mass HPI: The patient is a 76 year old male with a complaint of a palpable breast mass. The patient notes a mass in the retroaerolar portion of her right breast. The patient has noticed this mass for several months.. The patient had a mammogram with ultrasound on 04/05/2022 which demonstrated findings consistent with prominent gynecomastia on the right side but some also located on the left side as well.. She does perform a self breast exam routinely. She notes no skin changes. She denies nipple discharge. She notes no axillary masses. She notes no family history of breast problems. She notes no significant breast trauma or breast difficulties in the past. The patient is being seen by me today at the request of Dr. Francheska A Fast, DO for my opinion and advice regarding Subareolar mass of right breast (primary encounter diagnosis). PAST MEDICAL HISTORY Diagnosis Date BPH (benign prostatic hypertrophy) with urinary retention Coronary artery disease Hypertension PAST SURGICAL HISTORY Procedure Laterality Date APPENDECTOMY COLONOSCOPY COLONOSCOPY FLX DX W/COLLJ SPEC WHEN PFRMD 12/16/2017 Colonoscopy ESOPHAGOGASTRODUODENOSCOPY TRANSORAL DIAGNOSTIC 12/16/2017 EGD HERNIA REPAIR HX 05/10/2017 PNXR ASPIR HYDROCELE TUNICA VAGIS W/WO NJX MED THYROIDECTOMY TOTAL/COMPLETE 09/09/2009 TRURL ELECTROSURG RESCJ PROSTATE BLEED COMPLETE 05/10/2016 Current Outpatient Medications Medication Sig Dispense Refill atorvastatin (LIPITOR) 20 mg tablet Take 20 mg by mouth once daily. lisinopril (ZESTRIL, PRINIVIL) 5 mg tablet Take 5 mg by mouth once daily. famotidine (PEPCID) 20 mg tablet Take 40 mg by mouth DAILY AT 6 PM. Cholecalciferol, Vitamin D3, 5,000 unit Tab Take 1 tablet by mouth once daily. 0 Coenzyme Q10 (COQ-10) 100 mg Cap Take 1 capsule by mouth once daily. 0 Ascorbic Acid (VITAMIN C) 500 mg ORAL CpER Take 1 tablet by mouth twice daily. 0 Multivitamin ORAL capsule Take 1 capsule by mouth once daily. 0 S-Adenosylmethionine (JORDYN-E, ENTERIC COATED,) 400 mg ORAL TbEC Take 1 tablet by mouth once daily. 0 omeprazole (PRILOSEC) 20 mg capsule Take 20 mg by mouth once daily. (Patient not taking: Reported on 04/10/2022 ) No current facility-administered medications for this visit. ALLERGIES: Patient has no known allergies. PERSONAL HISTORY: Social History Tobacco Use Smoking status: Never Smoker Smokeless tobacco: Never Used Vaping Use Vaping Use: Never used Substance Use Topics Alcohol use: Yes Alcohol/week: 17.5 standard drinks Types: 7 Glasses of Wine (5oz) per week Drug use: No FAMILY HISTORY: FAMILY HISTORY Problem Relation Age of Onset Heart Mother Breast Cancer Mother Heart Father Colon Cancer Father REVIEW OF SYMPTOMS: The review of systems data was entered by the nurse and reviewed by ia Nursing Notes: Kirstie García RN 04/10/2022 9:38 AM Signed REVIEW OF SYSTEMS: General: The patient denies fatigue, denies weight loss, denies weight gain, denies feeling hot, and NOTES feelings of cold. Eyes: The patient denies glaucoma, denies eye injury/surgery, does not wear glasses or contacts. Ear/Nose/Throat: The patient denies allergies, denies hayfever, denies ear infections, and denies bloody noses. Cardiovascular: The patient denies chest pain, denies heart disease, NOTES high blood pressure,denies cardiac stent, denies prior heart attack, denies irregular heart beat, denies high cholesterol, denies poor circulation, denies heart failure, other cardiac issues, denies claudication, denies cold feet, denies peripheral arterial stent. Respiratory: The patient denies tuberculosis, denies pneumonia, denies frequent cough, denies pulmonary embolism, denies shortness of breath, and denies coughing up blood. Gastrointestinal: The patient denies difficulty swallowing, NOTES acid reflux, denies ulcers, denies vomiting, NOTES jaundice/hepatitis, denies gallbladder problems, denies black or tarry stools, denies hemorrhoids, denies bleeding from rectum, denies diverticulitis, denies constipation, denies diarrhea, denies loss of stool control, and NOTES hernias. Kidney/Bladder: The patient denies kidney stones, denies urine infections, and denies bloody urine. Skin: The patient denies a history of skin cancer, denies bleeding/changing moles, and denies a history of skin rash. Neurologic: The patient denies a history of epilepsy/convulsions, denies headaches, denies head/spinal injuries, and denies stroke/TIA. Psychiatric: The patient denies psychiatric medications, denies depression, and denies voices, denies substance abuse. Endocrine: The patient denies thyroid disorders, denies diabetes, and denies hormonal problems. Hematologic: The patient denies a history of bruising, denies bleeding, and denies anemia, denies blood clots. Infections: The patient denies a history of measles and mumps, denies rheumatic fever, and denies sexually transmitted diseases. Musculoskeletal: The patient denies back pain/injury, denies back problems, denies sciatica, denies knee/foot trouble, denies arthritis, or denies gout. When was patient's last Mammogram screening? 2021 Last Colonoscopy: 2017 Kirstie García RN PHYSICAL EXAMINATION: General: The patient is 76 year old male, well nourished, well hydrated in no acute distress. The patient is oriented to time, place, and person. VITALS: Blood pressure 136/84, pulse 76, height 185.4 cm (6' 1 ), weight 79.3 kg (174 lb 12.8 oz), SpO2 98 %. Body mass index is 23.06 kg/m . HEENT: Normal cephalic, ataumatic, pupils are equally round, sclera are anicteric, mucous membranes are moist, oropharynx is clear. Neck has no masses, asymmetry or lymphadenopathy. Thyroid is unremarkable. Respiratory: Clear to auscultation and percussion. Normal respiratory excursion and pattern. Cardiac: Examination is regular rate and rhythm. Abdominal exam: Soft, nontender, with no palpable masses. No hepatosplenomegaly. No palpable hernias. Rectal exam: exam deferred Extremities: no clubbing, cyanosis or edema. No adenopathy. Breast: Visual inspection reveals no retractions, nipple inversion, or skin changes. Palpation of the right breast reveals firmness under the right nipple more so than what I would anticipate with just garden-variety gynecomastia.. Palpation of the left breast reveals no firm masses are identified.. Axillary exam demonstrates no suspicious masses in either the left or right axilla. There is no nipple discharge expressed from either the left or right breast. LABORATORY VALUES: As Noted RADIOLOGIC STUDIES: As Noted Assessment IMPRESSION: Subareolar mass of right breast (primary encounter diagnosis) PLAN: I plan to perform a ultrasound guided core biopsy of the right breast. The planned surgical procedure was discussed extensively with the patient. The risks, benefits, anticipated outcomes and possible complications were mentioned. My staff has also explained the procedure in understandable terms and the patient was given the option to take printed material concerning the planned procedure. The patient had the opportunity to ask questions concerning the planned procedure. The patient freely consents to the planned procedure. Diagnoses: (N63.41) Subareolar mass of right breast (primary encounter diagnosis) A letter was sent to Dr. Francheska Alonzo DO indicating the above finding for this patient. Return to Clinic: The patient is instructed to follow-up with me 1 week post operatively. Mal Velazquez III, MD documented in this encounter [facility] 04-10-2022 Nurse Note REVIEW OF SYSTEMS: General: The patient denies fatigue, denies weight loss, denies weight gain, denies feeling hot, and NOTES feelings of cold. Eyes: The patient denies glaucoma, denies eye injury/surgery, does not wear glasses or contacts. Ear/Nose/Throat: The patient denies allergies, denies hayfever, denies ear infections, and denies bloody noses. Cardiovascular: The patient denies chest pain, denies heart disease, NOTES high blood pressure,denies cardiac stent, denies prior heart attack, denies irregular heart beat, denies high cholesterol, denies poor circulation, denies heart failure, other cardiac issues, denies claudication, denies cold feet, denies peripheral arterial stent. Respiratory: The patient denies tuberculosis, denies pneumonia, denies frequent cough, denies pulmonary embolism, denies shortness of breath, and denies coughing up blood. Gastrointestinal: The patient denies difficulty swallowing, NOTES acid reflux, denies ulcers, denies vomiting, NOTES jaundice/hepatitis, denies gallbladder problems, denies black or tarry stools, denies hemorrhoids, denies bleeding from rectum, denies diverticulitis, denies constipation, denies diarrhea, denies loss of stool control, and NOTES hernias. Kidney/Bladder: The patient denies kidney stones, denies urine infections, and denies bloody urine. Skin: The patient denies a history of skin cancer, denies bleeding/changing moles, and denies a history of skin rash. Neurologic: The patient denies a history of epilepsy/convulsions, denies headaches, denies head/spinal injuries, and denies stroke/TIA. Psychiatric: The patient denies psychiatric medications, denies depression, and denies voices, denies substance abuse. Endocrine: The patient denies thyroid disorders, denies diabetes, and denies hormonal problems. Hematologic: The patient denies a history of bruising, denies bleeding, and denies anemia, denies blood clots. Infections: The patient denies a history of measles and mumps, denies rheumatic fever, and denies sexually transmitted diseases. Musculoskeletal: The patient denies back pain/injury, denies back problems, denies sciatica, denies knee/foot trouble, denies arthritis, or denies gout. When was patient's last Mammogram screening? 2021 Last Colonoscopy: 2017 Kirstie García RN documented in this encounter [facility] Evaluation note Diagnosis Subareolar mass of right breast- Primary [facility] Name Dates Details Patient Instructions Indication:Nonsmoker Start:11-Jul-2021 Instruction Type:Provider Instructions for Treatment How to Access Health Informa tion Online using Patient Portal and 3rd [employer] Apps Indication:Nonsmoker Start:11-Jul-2021 Instruction Type:Patient Edu cation Patient Instructions Indication:Nonsmoker Start:16-May-2021 Instruction Type:Provider Instructions for Treatment How to Access Health Informa tion Online using Patient Portal and [employer] Apps Indication:Nonsmoker Start:16-May-2021 Instruction Type:Patient Edu cation [facility]; [facility] Work Phone: Instructions* Name Dates Details Patient Instructions Indication:Nonsmoker Start:11-Jul-2021 Instruction Type:Provider Instructions for Treatment How to Access Health Informa tion Online using Patient Portal and [employer] Apps Indication:Nonsmoker Start:11-Jul-2021 Instruction Type:Patient Edu cation Patient Instructions Indication:Nonsmoker Start:16-May-2021 Instruction Type:Provider Instructions for Treatment How to Access Health Informa tion Online using Patient Portal and [employer] Apps Indication:Nonsmoker Start:16-May-2021 Instruction Type:Patient Edu cation [facility]; [facility] Work Phone: Instructions* Name Dates Details Patient Instructions Indication:Hyperlipidemia Start:25-Oct-2021 Instruction Type:Provider Instructions for Treatment How to Access Health Informa tion Online using Patient Portal and [employer] Apps Indication:Hyperlipidemia Start:25-Oct-2021 Instruction Type:Patient Education Patient Instructions Indication:Nonsmoker Start:11-Jul-2021 Instruction Type:Provider Instructions for Treatment How to Access Health Informa tion Online using Patient Portal and [employer] Apps Indication:Nonsmoker Start:11-Jul-2021 Instruction Type:Patient Education Patient Instructions Indication:Nonsmoker Start:16-May-2021 Instruction Type:Provider Instructions for Treatment How to Access Health Informa tion Online using Patient Portal and [employer]rd [employer] Apps Indication:Nonsmoker Start:16-May-2021 Instruction Type:Patient Education [facility]; [facility] Work Phone: instructions* Name Dates Details Patient Instructions Indication:Hyperlipidemia Start:25-Oct-2021 Instruction Type:Provider Instructions for Treatment How to Access Health Informa tion Online using Patient Portal and [employer]rd [employer] Apps Indication:Hyperlipidemia Start:25-Oct-2021 Instruction Type:Patient Education Patient Instructions Indication:Nonsmoker Start:11-Jul-2021 Instruction Type:Provider Instructions for Treatment How to Access Health Informa tion Online using Patient Portal and [employer]rd [employer] Apps Indication:Nonsmoker Start:11-Jul-2021 Instruction Type:Patient Education Patient Instructions Indication:Nonsmoker Start:16-May-2021 Instruction Type:Provider Instructions for Treatment How to Access Health Informa tion Online using Patient Portal and [employer]rd [employer] Apps Indication:Nonsmoker Start:16-May-2021 Instruction Type:Patient Education [facility]; [facility] Work Phone: instructions* Name Dates Details Patient Instructions Indication:Hyperlipidemia Start:25-Oct-2021 Instruction Type:Provider Instructions for Treatment How to Access Health Informa tion Online using Patient Portal and [employer]rd [employer] Apps Indication:Hyperlipidemia Start:25-Oct-2021 Instruction Type:Patient Education Patient Instructions Indication:Nonsmoker Start:11-Jul-2021 Instruction Type:Provider Instructions for Treatment How to Access Health Informa tion Online using Patient Portal and [employer]rd [employer] Apps Indication:Nonsmoker Start:11-Jul-2021 Instruction Type:Patient Education Patient Instructions Indication:Nonsmoker Start:16-May-2021 Instruction Type:Provider Instructions for Treatment How to Access Health Informa tion Online using Patient Portal and [employer]rd [employer] Apps Indication:Nonsmoker Start:16-May-2021 Instruction Type:Patient Education [facility]; [facility] Work Phone: instructions* Name Dates Details Patient Instructions Indication:Hyperlipidemia Start:25-Oct-2021 Instruction Type:Provider Instructions for Treatment How to Access Health Informa tion Online using Patient Portal and [employer]rd [employer] Apps Indication:Hyperlipidemia Start:25-Oct-2021 Instruction Type:Patient Education Patient Instructions Indication:Nonsmoker Start:11-Jul-2021 Instruction Type:Provider Instructions for Treatment How to Access Health Informa tion Online using Patient Portal and [employer]rd [employer] Apps Indication:Nonsmoker Start:11-Jul-2021 Instruction Type:Patient Education Patient Instructions Indication:Nonsmoker Start:16-May-2021 Instruction Type:Provider Instructions for Treatment How to Access Health Informa tion Online using Patient Portal and [employer]rd [employer] Apps Indication:Nonsmoker Start:16-May-2021 Instruction Type:Patient Education [facility]; [facility] Work Phone: instructions* Name Dates Details Patient Instructions Indication:Hyperlipidemia Start:25-Oct-2021 Instruction Type:Provider Instructions for Treatment How to Access Health Informa tion Online using Patient Portal and [employer]rd [employer] Apps Indication:Hyperlipidemia Start:25-Oct-2021 Instruction Type:Patient Education Patient Instructions Indication:Nonsmoker Start:11-Jul-2021 Instruction Type:Provider Instructions for Treatment How to Access Health Informa tion Online using Patient Portal and [employer]rd [employer] Apps Indication:Nonsmoker Start:11-Jul-2021 Instruction Type:Patient Education Patient Instructions Indication:Nonsmoker Start:16-May-2021 Instruction Type:Provider Instructions for Treatment How to Access Health Informa tion Online using Patient Portal and [employer]rd [employer] Apps Indication:Nonsmoker Start:16-May-2021 Instruction Type:Patient Education [facility]; [facility] Work Phone: instructions* Name Dates Details Patient Instructions Indication:Hyperlipidemia Start:25-Oct-2021 Instruction Type:Provider Instructions for Treatment How to Access Health Informa tion Online using Patient Portal and [employer]rd [employer] Apps Indication:Hyperlipidemia Start:25-Oct-2021 Instruction Type:Patient Education Patient Instructions Indication:Nonsmoker Start:11-Jul-2021 Instruction Type:Provider Instructions for Treatment How to Access Health Informa tion Online using Patient Portal and [employer]rd [employer] Apps Indication:Nonsmoker Start:11-Jul-2021 Instruction Type:Patient Education Patient Instructions Indication:Nonsmoker Start:16-May-2021 Instruction Type:Provider Instructions for Treatment How to Access Health Informa tion Online using Patient Portal and [employer] Apps Indication:Nonsmoker Start:16-May-2021 Instruction Type:Patient Education [facility]; [facility] Work Phone: instructions* Name Dates Details Patient Instructions Indication:Hyperlipidemia Start:25-Oct-2021 Instruction Type:Provider Instructions for Treatment How to Access Health Informa tion Online using Patient Portal and [employer]rd [employer] Apps Indication:Hyperlipidemia Start:25-Oct-2021 Instruction Type:Patient Education Patient Instructions Indication:Nonsmoker Start:11-Jul-2021 Instruction Type:Provider Instructions for Treatment How to Access Health Informa tion Online using Patient Portal and [employer]rd [employer] Apps Indication:Nonsmoker Start:11-Jul-2021 Instruction Type:Patient Education Patient Instructions Indication:Nonsmoker Start:16-May-2021 Instruction Type:Provider Instructions for Treatment How to Access Health Informa tion Online using Patient Portal and [employer]rd [employer] Apps Indication:Nonsmoker Start:16-May-2021 Instruction Type:Patient Education [facility]; [facility] Work Phone: instructions* Name Dates Details Patient Instructions Indication:Anxiety Start:24-Jan-2022 Instruction Type:Provider Instructions for Treatment How to Access Health Informa tion Online using Patient Portal and [employer]rd [employer] Apps Indication:Anxiety Start:24-Jan-2022 Instruction Type:Patient Education Patient Instructions Indication:Hyperlipidemia Start:25-Oct-2021 Instruction Type:Provider Instructions for Treatment How to Access Health Informa tion Online using Patient Portal and [employer]rd [employer] Apps Indication:Hyperlipidemia Start:25-Oct-2021 Instruction Type:Patient Education Patient Instructions Indication:Nonsmoker Start:11-Jul-2021 Instruction Type:Provider Instructions for Treatment How to Access Health Informa tion Online using Patient Portal and [employer]rd [employer] Apps Indication:Nonsmoker Start:11-Jul-2021 Instruction Type:Patient Education Patient Instructions Indication:Nonsmoker Start:16-May-2021 Instruction Type:Provider Instructions for Treatment How to Access Health Informa tion Online using Patient Portal and [employer]rd [employer] Apps Indication:Nonsmoker Start:16-May-2021 Instruction Type:Patient Education [facility]; [facility] Work Phone: instructions* Name Dates Details Patient Instructions Indication:Anxiety Start:24-Jan-2022 Instruction Type:Provider Instructions for Treatment How to Access Health Informa tion Online using Patient Portal and [employer] Apps Indication:Anxiety Start:24-Jan-2022 Instruction Type:Patient Education Patient Instructions Indication:Hyperlipidemia Start:25-Oct-2021 Instruction Type:Provider Instructions for Treatment How to Access Health Informa tion Online using Patient Portal and [employer]rd [employer] Apps Indication:Hyperlipidemia Start:25-Oct-2021 Instruction Type:Patient Education Patient Instructions Indication:Nonsmoker Start:11-Jul-2021 Instruction Type:Provider Instructions for Treatment How to Access Health Informa tion Online using Patient Portal and [employer]rd [employer] Apps Indication:Nonsmoker Start:11-Jul-2021 Instruction Type:Patient Education Patient Instructions Indication:Nonsmoker Start:16-May-2021 Instruction Type:Provider Instructions for Treatment How to Access Health Informa tion Online using Patient Portal and [employer] Apps Indication:Nonsmoker Start:16-May-2021 Instruction Type:Patient Education [facility]; [facility] Work Phone: instructions* Name Dates Details Patient Instructions Indication:Anxiety Start:24-Jan-2022 Instruction Type:Provider Instructions for Treatment How to Access Health Informa tion Online using Patient Portal and [employer]rd [employer] Apps Indication:Anxiety Start:24-Jan-2022 Instruction Type:Patient Education Patient Instructions Indication:Hyperlipidemia Start:25-Oct-2021 Instruction Type:Provider Instructions for Treatment How to Access Health Informa tion Online using Patient Portal and [employer]rd [employer] Apps Indication:Hyperlipidemia Start:25-Oct-2021 Instruction Type:Patient Education Patient Instructions Indication:Nonsmoker Start:11-Jul-2021 Instruction Type:Provider Instructions for Treatment How to Access Health Informa tion Online using Patient Portal and [employer]rd [employer] Apps Indication:Nonsmoker Start:11-Jul-2021 Instruction Type:Patient Education Patient Instructions Indication:Nonsmoker Start:16-May-2021 Instruction Type:Provider Instructions for Treatment How to Access Health Informa tion Online using Patient Portal and [employer] Apps Indication:Nonsmoker Start:16-May-2021 Instruction Type:Patient Education [facility]; [facility] Work Phone: instructions* Name Dates Details Patient Instructions Indication:Anxiety Start:24-Jan-2022 Instruction Type:Provider Instructions for Treatment How to Access Health Informa tion Online using Patient Portal and [employer] Apps Indication:Anxiety Start:24-Jan-2022 Instruction Type:Patient Education Patient Instructions Indication:Hyperlipidemia Start:25-Oct-2021 Instruction Type:Provider Instructions for Treatment How to Access Health Informa tion Online using Patient Portal and [employer] Apps Indication:Hyperlipidemia Start:25-Oct-2021 Instruction Type:Patient Education Patient Instructions Indication:Nonsmoker Start:11-Jul-2021 Instruction Type:Provider Instructions for Treatment How to Access Health Informa tion Online using Patient Portal and [employer] Apps Indication:Nonsmoker Start:11-Jul-2021 Instruction Type:Patient Education Patient Instructions Indication:Nonsmoker Start:16-May-2021 Instruction Type:Provider Instructions for Treatment How to Access Health Informa tion Online using Patient Portal and [employer] Apps Indication:Nonsmoker Start:16-May-2021 Instruction Type:Patient Education [facility]; [facility] Work Phone: instructions* Name Dates Details Patient Instructions Indication:Nonsmoker Start:23-Mar-2022 Instruction Type:Provider Instructions for Treatment How to Access Health Informa tion Online using Patient Portal and [employer] Apps Indication:Nonsmoker Start:23-Mar-2022 Instruction Type:Patient Education Patient Instructions Indication:Anxiety Start:24-Jan-2022 Instruction Type:Provider Instructions for Treatment How to Access Health Informa tion Online using Patient Portal and [employer] Apps Indication:Anxiety Start:24-Jan-2022 Instruction Type:Patient Education Patient Instructions Indication:Hyperlipidemia Start:25-Oct-2021 Instruction Type:Provider Instructions for Treatment How to Access Health Informa tion Online using Patient Portal and [employer] Apps Indication:Hyperlipidemia Start:25-Oct-2021 Instruction Type:Patient Education Patient Instructions Indication:Nonsmoker Start:11-Jul-2021 Instruction Type:Provider Instructions for Treatment How to Access Health Informa tion Online using Patient Portal and [employer] Apps Indication:Nonsmoker Start:11-Jul-2021 Instruction Type:Patient Education Patient Instructions Indication:Nonsmoker Start:16-May-2021 Instruction Type:Provider Instructions for Treatment How to Access Health Informa tion Online using Patient Portal and [employer] Apps Indication:Nonsmoker Start:16-May-2021 Instruction Type:Patient Education [facility]; [facility] Work Phone: instructions* Name Dates Details Patient Instructions Indication:Nonsmoker Start:23-Mar-2022 Instruction Type:Provider Instructions for Treatment How to Access Health Informa tion Online using Patient Portal and [employer] Apps Indication:Nonsmoker Start:23-Mar-2022 Instruction Type:Patient Education Patient Instructions Indication:Anxiety Start:24-Jan-2022 Instruction Type:Provider Instructions for Treatment How to Access Health Informa tion Online using Patient Portal and [employer]rd [employer] Apps Indication:Anxiety Start:24-Jan-2022 Instruction Type:Patient Education Patient Instructions Indication:Hyperlipidemia Start:25-Oct-2021 Instruction Type:Provider Instructions for Treatment How to Access Health Informa tion Online using Patient Portal and [employer] Apps Indication:Hyperlipidemia Start:25-Oct-2021 Instruction Type:Patient Education Patient Instructions Indication:Nonsmoker Start:11-Jul-2021 Instruction Type:Provider Instructions for Treatment How to Access Health Informa tion Online using Patient Portal and [employer] Apps Indication:Nonsmoker Start:11-Jul-2021 Instruction Type:Patient Education Patient Instructions Indication:Nonsmoker Start:16-May-2021 Instruction Type:Provider Instructions for Treatment How to Access Health Informa tion Online using Patient Portal and [employer] Apps Indication:Nonsmoker Start:16-May-2021 Instruction Type:Patient Education [facility]; [facility] Work Phone: Instructions* Name Dates Details Patient Instructions 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 Start:27-May-2022 Instruction Type:Provider Instructions for Treatment Patient Instructions Indication:Nonsmoker Start:23-Mar-2022 Instruction Type:Provider Instructions for Treatment How to Access Health Informa tion Online using Patient Portal and [employer] Apps Indication:Nonsmoker Start:23-Mar-2022 Instruction Type:Patient Education Patient Instructions Indication:Anxiety Start:24-Jan-2022 Instruction Type:Provider Instructions for Treatment How to Access Health Informa tion Online using Patient Portal and [employer] Apps Indication:Anxiety Start:24-Jan-2022 Instruction Type:Patient Education Patient Instructions Indication:Hyperlipidemia Start:25-Oct-2021 Instruction Type:Provider Instructions for Treatment How to Access Health Informa tion Online using Patient Portal and [employer] Apps Indication:Hyperlipidemia Start:25-Oct-2021 Instruction Type:Patient Education Patient Instructions Indication:Nonsmoker Start:11-Jul-2021 Instruction Type:Provider Instructions for Treatment How to Access Health Informa tion Online using Patient Portal and [employer]rd [employer] Indication:Nonsmoker Start:11-Jul-2021 Instruction Type:Patient Education Patient Instructions Indication:Nonsmoker Start:16-May-2021 Instruction Type:Provider Instructions for Treatment How to Access Health Informa tion Online using Patient Portal and [employer]rd [employer] Apps Indication:Nonsmoker Start:16-May-2021 Instruction Type:Patient Education [facility]; [facility] Work Phone: Instructions* Name Dates Details Patient Instructions Indication:Nonsmoker Start:30-Jul-2022 Instruction Type:Provider Instructions for Treatment How to Access Health Informa tion Online using Patient Portal and [employer]rd [employer] Apps Indication:Nonsmoker Start:30-Jul-2022 Instruction Type:Patient Education Patient Instructions 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 Start:27-May-2022 Instruction Type:Provider Instructions for Treatment Patient Instructions Indication:Nonsmoker Start:23-Mar-2022 Instruction Type:Provider Instructions for Treatment How to Access Health Informa tion Online using Patient Portal and [employer]rd [employer] Apps Indication:Nonsmoker Start:23-Mar-2022 Instruction Type:Patient Education Patient Instructions Indication:Anxiety Start:24-Jan-2022 Instruction Type:Provider Instructions for Treatment How to Access Health Informa tion Online using Patient Portal and [employer]rd [employer] Apps Indication:Anxiety Start:24-Jan-2022 Instruction Type:Patient Education Patient Instructions Indication:Hyperlipidemia Start:25-Oct-2021 Instruction Type:Provider Instructions for Treatment How to Access Health Informa tion Online using Patient Portal and [employer]rd [employer] Apps Indication:Hyperlipidemia Start:25-Oct-2021 Instruction Type:Patient Education Patient Instructions Indication:Nonsmoker Start:11-Jul-2021 Instruction Type:Provider Instructions for Treatment How to Access Health Informa tion Online using Patient Portal and [employer]rd [employer] Apps Indication:Nonsmoker Start:11-Jul-2021 Instruction Type:Patient Education Patient Instructions Indication:Nonsmoker Start:16-May-2021 Instruction Type:Provider Instructions for Treatment How to Access Health Informa tion Online using Patient Portal and [employer]rd [employer] Apps Indication:Nonsmoker Start:16-May-2021 Instruction Type:Patient Education [facility]; [facility] Work Phone: Instructions* Name Dates Details Patient Instructions Indication:Nonsmoker Start:30-Jul-2022 Instruction Type:Provider Instructions for Treatment How to Access Health Informa tion Online using Patient Portal and [employer]rd [employer] Apps Indication:Nonsmoker Start:30-Jul-2022 Instruction Type:Patient Education Patient Instructions 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 Start:27-May-2022 Instruction Type:Provider Instructions for Treatment Patient Instructions Indication:Nonsmoker Start:23-Mar-2022 Instruction Type:Provider Instructions for Treatment How to Access Health Informa tion Online using Patient Portal and [employer]rd [employer] Apps Indication:Nonsmoker Start:23-Mar-2022 Instruction Type:Patient Education Patient Instructions Indication:Anxiety Start:24-Jan-2022 Instruction Type:Provider Instructions for Treatment How to Access Health Informa tion Online using Patient Portal and [employer]rd [employer] Apps Indication:Anxiety Start:24-Jan-2022 Instruction Type:Patient Education Patient Instructions Indication:Hyperlipidemia Start:25-Oct-2021 Instruction Type:Provider Instructions for Treatment How to Access Health Informa tion Online using Patient Portal and [employer]rd [employer] Apps Indication:Hyperlipidemia Start:25-Oct-2021 Instruction Type:Patient Education Patient Instructions Indication:Nonsmoker Start:11-Jul-2021 Instruction Type:Provider Instructions for Treatment How to Access Health Informa tion Online using Patient Portal and [employer]rd [employer] Apps Indication:Nonsmoker Start:11-Jul-2021 Instruction Type:Patient Education Patient Instructions Indication:Nonsmoker Start:16-May-2021 Instruction Type:Provider Instructions for Treatment How to Access Health Informa tion Online using Patient Portal and [employer]rd [employer] Apps Indication:Nonsmoker Start:16-May-2021 Instruction Type:Patient Education [facility]; [facility] Work Phone: Instructions* Name Dates Details Patient Instructions Indication:Nonsmoker Start:30-Jul-2022 Instruction Type:Provider Instructions for Treatment How to Access Health Informa tion Online using Patient Portal and [employer]rd [employer] Apps Indication:Nonsmoker Start:30-Jul-2022 Instruction Type:Patient Education Patient Instructions 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 Start:27-May-2022 Instruction Type:Provider Instructions for Treatment Patient Instructions Indication:Nonsmoker Start:23-Mar-2022 Instruction Type:Provider Instructions for Treatment How to Access Health Informa tion Online using Patient Portal and [employer] Apps Indication:Nonsmoker Start:23-Mar-2022 Instruction Type:Patient Education Patient Instructions Indication:Anxiety Start:24-Jan-2022 Instruction Type:Provider Instructions for Treatment How to Access Health Informa tion Online using Patient Portal and [employer]rd [employer] Apps Indication:Anxiety Start:24-Jan-2022 Instruction Type:Patient Education Patient Instructions Indication:Hyperlipidemia Start:25-Oct-2021 Instruction Type:Provider Instructions for Treatment How to Access Health Informa tion Online using Patient Portal and [employer] Apps Indication:Hyperlipidemia Start:25-Oct-2021 Instruction Type:Patient Education Patient Instructions Indication:Nonsmoker Start:11-Jul-2021 Instruction Type:Provider Instructions for Treatment How to Access Health Informa tion Online using Patient Portal and [employer]rd [employer] Apps Indication:Nonsmoker Start:11-Jul-2021 Instruction Type:Patient Education Patient Instructions Indication:Nonsmoker Start:16-May-2021 Instruction Type:Provider Instructions for Treatment How to Access Health Informa tion Online using Patient Portal and [employer] Apps Indication:Nonsmoker Start:16-May-2021 Instruction Type:Patient Education [facility]; [facility] Work Phone: Instructions* Name Dates Details Patient Instructions Indication:Nonsmoker Start:30-Jul-2022 Instruction Type:Provider Instructions for Treatment How to Access Health Informa tion Online using Patient Portal and [employer]rd [employer] Apps Indication:Nonsmoker Start:30-Jul-2022 Instruction Type:Patient Education Patient Instructions 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 Start:27-May-2022 Instruction Type:Provider Instructions for Treatment Patient Instructions Indication:Nonsmoker Start:23-Mar-2022 Instruction Type:Provider Instructions for Treatment How to Access Health Informa tion Online using Patient Portal and [employer] Apps Indication:Nonsmoker Start:23-Mar-2022 Instruction Type:Patient Education Patient Instructions Indication:Anxiety Start:24-Jan-2022 Instruction Type:Provider Instructions for Treatment How to Access Health Informa tion Online using Patient Portal and [employer] Apps Indication:Anxiety Start:24-Jan-2022 Instruction Type:Patient Education Patient Instructions Indication:Hyperlipidemia Start:25-Oct-2021 Instruction Type:Provider Instructions for Treatment How to Access Health Informa tion Online using Patient Portal and [employer]rd [employer] Apps Indication:Hyperlipidemia Start:25-Oct-2021 Instruction Type:Patient Education Patient Instructions Indication:Nonsmoker Start:11-Jul-2021 Instruction Type:Provider Instructions for Treatment How to Access Health Informa tion Online using Patient Portal and [employer] Apps Indication:Nonsmoker Start:11-Jul-2021 Instruction Type:Patient Education Patient Instructions Indication:Nonsmoker Start:16-May-2021 Instruction Type:Provider Instructions for Treatment How to Access Health Informa tion Online using Patient Portal and [employer]rd [employer] Apps Indication:Nonsmoker Start:16-May-2021 Instruction Type:Patient Education [facility]; [facility] Work Phone: Instructions* Name Dates Details Patient Instructions Indication:Nonsmoker Start:30-Jul-2022 Instruction Type:Provider Instructions for Treatment How to Access Health Informa tion Online using Patient Portal and [employer] Apps Indication:Nonsmoker Start:30-Jul-2022 Instruction Type:Patient Education Patient Instructions 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 Start:27-May-2022 Instruction Type:Provider Instructions for Treatment Patient Instructions Indication:Nonsmoker Start:23-Mar-2022 Instruction Type:Provider Instructions for Treatment How to Access Health Informa tion Online using Patient Portal and [employer] Apps Indication:Nonsmoker Start:23-Mar-2022 Instruction Type:Patient Education Patient Instructions Indication:Anxiety Start:24-Jan-2022 Instruction Type:Provider Instructions for Treatment How to Access Health Informa tion Online using Patient Portal and [employer]rd [employer] Apps Indication:Anxiety Start:24-Jan-2022 Instruction Type:Patient Education Patient Instructions Indication:Hyperlipidemia Start:25-Oct-2021 Instruction Type:Provider Instructions for Treatment How to Access Health Informa tion Online using Patient Portal and [employer] Apps Indication:Hyperlipidemia Start:25-Oct-2021 Instruction Type:Patient Education Patient Instructions Indication:Nonsmoker Start:11-Jul-2021 Instruction Type:Provider Instructions for Treatment How to Access Health Informa tion Online using Patient Portal and [employer] Apps Indication:Nonsmoker Start:11-Jul-2021 Instruction Type:Patient Education Patient Instructions Indication:Nonsmoker Start:16-May-2021 Instruction Type:Provider Instructions for Treatment How to Access Health Informa tion Online using Patient Portal and [employer] Apps Indication:Nonsmoker Start:16-May-2021 Instruction Type:Patient Education [facility]; [facility] Work Phone: Instructions* Name Dates Details Patient Instructions Indication:Hyperlipidemia Start:12-Nov-2022 Instruction Type:Provider Instructions for Treatment How to Access Health Informa tion Online using Patient Portal and [employer]rd [employer] Apps Indication:Hyperlipidemia Start:12-Nov-2022 Instruction Type:Patient Education Patient Instructions Indication:Nonsmoker Start:30-Jul-2022 Instruction Type:Provider Instructions for Treatment How to Access Health Informa tion Online using Patient Portal and [employer] Apps Indication:Nonsmoker Start:30-Jul-2022 Instruction Type:Patient Education Patient Instructions 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 Start:27-May-2022 Instruction Type:Provider Instructions for Treatment Patient Instructions Indication:Nonsmoker Start:23-Mar-2022 Instruction Type:Provider Instructions for Treatment How to Access Health Informa tion Online using Patient Portal and [employer]rd [employer] Apps Indication:Nonsmoker Start:23-Mar-2022 Instruction Type:Patient Education Patient Instructions Indication:Anxiety Start:24-Jan-2022 Instruction Type:Provider Instructions for Treatment How to Access Health Informa tion Online using Patient Portal and [employer]rd [employer] Apps Indication:Anxiety Start:24-Jan-2022 Instruction Type:Patient Education Patient Instructions Indication:Hyperlipidemia Start:25-Oct-2021 Instruction Type:Provider Instructions for Treatment How to Access Health Informa tion Online using Patient Portal and [employer]rd [employer] Apps Indication:Hyperlipidemia Start:25-Oct-2021 Instruction Type:Patient Education Patient Instructions Indication:Nonsmoker Start:11-Jul-2021 Instruction Type:Provider Instructions for Treatment How to Access Health Informa tion Online using Patient Portal and [employer]rd [employer] Apps Indication:Nonsmoker Start:11-Jul-2021 Instruction Type:Patient Education Patient Instructions Indication:Nonsmoker Start:16-May-2021 Instruction Type:Provider Instructions for Treatment How to Access Health Informa tion Online using Patient Portal and [employer]rd [employer] Apps Indication:Nonsmoker Start:16-May-2021 Instruction Type:Patient Education [facility]; [facility] Work Phone: Instructions* Name Dates Details Patient Instructions Indication:Hyperlipidemia Start:12-Nov-2022 Instruction Type:Provider Instructions for Treatment How to Access Health Informa tion Online using Patient Portal and [employer]rd [employer] Apps Indication:Hyperlipidemia Start:12-Nov-2022 Instruction Type:Patient Education Patient Instructions Indication:Nonsmoker Start:30-Jul-2022 Instruction Type:Provider Instructions for Treatment How to Access Health Informa tion Online using Patient Portal and [employer]rd [employer] Apps Indication:Nonsmoker Start:30-Jul-2022 Instruction Type:Patient Education Patient Instructions 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 Start:27-May-2022 Instruction Type:Provider Instructions for Treatment Patient Instructions Indication:Nonsmoker Start:23-Mar-2022 Instruction Type:Provider Instructions for Treatment How to Access Health Informa tion Online using Patient Portal and [employer]rd [employer] Apps Indication:Nonsmoker Start:23-Mar-2022 Instruction Type:Patient Education Patient Instructions Indication:Anxiety Start:24-Jan-2022 Instruction Type:Provider Instructions for Treatment How to Access Health Informa tion Online using Patient Portal and [employer]rd [employer] Apps Indication:Anxiety Start:24-Jan-2022 Instruction Type:Patient Education Patient Instructions Indication:Hyperlipidemia Start:25-Oct-2021 Instruction Type:Provider Instructions for Treatment How to Access Health Informa tion Online using Patient Portal and [employer]rd [employer] Apps Indication:Hyperlipidemia Start:25-Oct-2021 Instruction Type:Patient Education Patient Instructions Indication:Nonsmoker Start:11-Jul-2021 Instruction Type:Provider Instructions for Treatment How to Access Health Informa tion Online using Patient Portal and [employer]rd [employer] Apps Indication:Nonsmoker Start:11-Jul-2021 Instruction Type:Patient Education Patient Instructions Indication:Nonsmoker Start:16-May-2021 Instruction Type:Provider Instructions for Treatment How to Access Health Informa tion Online using Patient Portal and [employer]rd [employer] Apps Indication:Nonsmoker Start:16-May-2021 Instruction Type:Patient Education [facility]; [facility] Work Phone: Instructions* Name Dates Details Patient Instructions Indication:Hyperlipidemia Start:12-Nov-2022 Instruction Type:Provider Instructions for Treatment How to Access Health Informa tion Online using Patient Portal and [employer]rd [employer] Apps Indication:Hyperlipidemia Start:12-Nov-2022 Instruction Type:Patient Education Patient Instructions Indication:Nonsmoker Start:30-Jul-2022 Instruction Type:Provider Instructions for Treatment How to Access Health Informa tion Online using Patient Portal and [employer]rd [employer] Apps Indication:Nonsmoker Start:30-Jul-2022 Instruction Type:Patient Education Patient Instructions 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 Start:27-May-2022 Instruction Type:Provider Instructions for Treatment Patient Instructions Indication:Nonsmoker Start:23-Mar-2022 Instruction Type:Provider Instructions for Treatment How to Access Health Informa tion Online using Patient Portal and [employer]rd [employer] Apps Indication:Nonsmoker Start:23-Mar-2022 Instruction Type:Patient Education Patient Instructions Indication:Anxiety Start:24-Jan-2022 Instruction Type:Provider Instructions for Treatment How to Access Health Informa tion Online using Patient Portal and [employer]rd [employer] Apps Indication:Anxiety Start:24-Jan-2022 Instruction Type:Patient Education Patient Instructions Indication:Hyperlipidemia Start:25-Oct-2021 Instruction Type:Provider Instructions for Treatment How to Access Health Informa tion Online using Patient Portal and [employer]rd [employer] Apps Indication:Hyperlipidemia Start:25-Oct-2021 Instruction Type:Patient Education Patient Instructions Indication:Nonsmoker Start:11-Jul-2021 Instruction Type:Provider Instructions for Treatment How to Access Health Informa tion Online using Patient Portal and [employer]rd [employer] Apps Indication:Nonsmoker Start:11-Jul-2021 Instruction Type:Patient Education Patient Instructions Indication:Nonsmoker Start:16-May-2021 Instruction Type:Provider Instructions for Treatment How to Access Health Informa tion Online using Patient Portal and [employer]rd [employer] Apps Indication:Nonsmoker Start:16-May-2021 Instruction Type:Patient Education [facility]; [facility] Work Phone: Instructions* Name Dates Details Patient Instructions Indication:Hypertension Start:25-Feb-2023 Instruction Type:Provider Instructions for Treatment How to Access Health Informa tion Online using Patient Portal and [employer]rd [employer] Apps Indication:Hypertension Start:25-Feb-2023 Instruction Type:Patient Education Patient Instructions Indication:Hyperlipidemia Start:12-Nov-2022 Instruction Type:Provider Instructions for Treatment How to Access Health Informa tion Online using Patient Portal and [employer]rd [employer] Apps Indication:Hyperlipidemia Start:12-Nov-2022 Instruction Type:Patient Education Patient Instructions Indication:Nonsmoker Start:30-Jul-2022 Instruction Type:Provider Instructions for Treatment How to Access Health Informa tion Online using Patient Portal and [employer]rd [employer] Apps Indication:Nonsmoker Start:30-Jul-2022 Instruction Type:Patient Education Patient Instructions 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 Start:27-May-2022 Instruction Type:Provider Instructions for Treatment Patient Instructions Indication:Nonsmoker Start:23-Mar-2022 Instruction Type:Provider Instructions for Treatment How to Access Health Informa tion Online using Patient Portal and [employer]rd [employer] Apps Indication:Nonsmoker Start:23-Mar-2022 Instruction Type:Patient Education Patient Instructions Indication:Anxiety Start:24-Jan-2022 Instruction Type:Provider Instructions for Treatment How to Access Health Informa tion Online using Patient Portal and [employer]rd [employer] Apps Indication:Anxiety Start:24-Jan-2022 Instruction Type:Patient Education Patient Instructions Indication:Hyperlipidemia Start:25-Oct-2021 Instruction Type:Provider Instructions for Treatment How to Access Health Informa tion Online using Patient Portal and [employer]rd [employer] Apps Indication:Hyperlipidemia Start:25-Oct-2021 Instruction Type:Patient Education Patient Instructions Indication:Nonsmoker Start:11-Jul-2021 Instruction Type:Provider Instructions for Treatment How to Access Health Informa tion Online using Patient Portal and [employer]rd [employer] Apps Indication:Nonsmoker Start:11-Jul-2021 Instruction Type:Patient Education Patient Instructions Indication:Nonsmoker Start:16-May-2021 Instruction Type:Provider Instructions for Treatment How to Access Health Informa tion Online using Patient Portal and [employer]rd [employer] Apps Indication:Nonsmoker Start:16-May-2021 Instruction Type:Patient Education [facility]; [facility] Work Phone: Instructions* Name Dates Details Patient Instructions Indication:Hypertension Start:25-Feb-2023 Instruction Type:Provider Instructions for Treatment How to Access Health Informa tion Online using Patient Portal and [employer]rd [employer] Apps Indication:Hypertension Start:25-Feb-2023 Instruction Type:Patient Education Patient Instructions Indication:Hyperlipidemia Start:12-Nov-2022 Instruction Type:Provider Instructions for Treatment How to Access Health Informa tion Online using Patient Portal and [employer]rd [employer] Apps Indication:Hyperlipidemia Start:12-Nov-2022 Instruction Type:Patient Education Patient Instructions Indication:Nonsmoker Start:30-Jul-2022 Instruction Type:Provider Instructions for Treatment How to Access Health Informa tion Online using Patient Portal and [employer]rd [employer] Apps Indication:Nonsmoker Start:30-Jul-2022 Instruction Type:Patient Education Patient Instructions 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 Start:27-May-2022 Instruction Type:Provider Instructions for Treatment Patient Instructions Indication:Nonsmoker Start:23-Mar-2022 Instruction Type:Provider Instructions for Treatment How to Access Health Informa tion Online using Patient Portal and [employer]rd [employer] Apps Indication:Nonsmoker Start:23-Mar-2022 Instruction Type:Patient Education Patient Instructions Indication:Anxiety Start:24-Jan-2022 Instruction Type:Provider Instructions for Treatment How to Access Health Informa tion Online using Patient Portal and [employer]rd [employer] Apps Indication:Anxiety Start:24-Jan-2022 Instruction Type:Patient Education Patient Instructions Indication:Hyperlipidemia Start:25-Oct-2021 Instruction Type:Provider Instructions for Treatment How to Access Health Informa tion Online using Patient Portal and [employer]rd [employer] Apps Indication:Hyperlipidemia Start:25-Oct-2021 Instruction Type:Patient Education Patient Instructions Indication:Nonsmoker Start:11-Jul-2021 Instruction Type:Provider Instructions for Treatment How to Access Health Informa tion Online using Patient Portal and [employer]rd [employer] Apps Indication:Nonsmoker Start:11-Jul-2021 Instruction Type:Patient Education Patient Instructions Indication:Nonsmoker Start:16-May-2021 Instruction Type:Provider Instructions for Treatment How to Access Health Informa tion Online using Patient Portal and [employer]rd [employer] Apps Indication:Nonsmoker Start:16-May-2021 Instruction Type:Patient Education [facility]; [facility] Work Phone: Instructions* Name Dates Details Patient Instructions Indication:Bilateral leg edema Start:03-Jun-2023 Instruction Type:Provider Instructions for Treatment How to Access Health Informa tion Online using Patient Portal and [employer]rd [employer] Apps Indication:Bilateral leg edema Start:03-Jun-2023 Instruction Type:Patient Education Patient Instructions Indication:Hypertension Start:25-Feb-2023 Instruction Type:Provider Instructions for Treatment How to Access Health Informa tion Online using Patient Portal and [employer]rd [employer] Apps Indication:Hypertension Start:25-Feb-2023 Instruction Type:Patient Education Patient Instructions Indication:Hyperlipidemia Start:12-Nov-2022 Instruction Type:Provider Instructions for Treatment How to Access Health Informa tion Online using Patient Portal and [employer]rd [employer] Apps Indication:Hyperlipidemia Start:12-Nov-2022 Instruction Type:Patient Education Patient Instructions Indication:Nonsmoker Start:30-Jul-2022 Instruction Type:Provider Instructions for Treatment How to Access Health Informa tion Online using Patient Portal and [employer]rd [employer] Apps Indication:Nonsmoker Start:30-Jul-2022 Instruction Type:Patient Education Patient Instructions 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 Start:27-May-2022 Instruction Type:Provider Instructions for Treatment Patient Instructions Indication:Nonsmoker Start:23-Mar-2022 Instruction Type:Provider Instructions for Treatment How to Access Health Informa tion Online using Patient Portal and [employer]rd [employer] Apps Indication:Nonsmoker Start:23-Mar-2022 Instruction Type:Patient Education Patient Instructions Indication:Anxiety Start:24-Jan-2022 Instruction Type:Provider Instructions for Treatment How to Access Health Informa tion Online using Patient Portal and [employer] Apps Indication:Anxiety Start:24-Jan-2022 Instruction Type:Patient Education Patient Instructions Indication:Hyperlipidemia Start:25-Oct-2021 Instruction Type:Provider Instructions for Treatment How to Access Health Informa tion Online using Patient Portal and [employer]rd [employer] Apps Indication:Hyperlipidemia Start:25-Oct-2021 Instruction Type:Patient Education Patient Instructions Indication:Nonsmoker Start:11-Jul-2021 Instruction Type:Provider Instructions for Treatment How to Access Health Informa tion Online using Patient Portal and [employer] Apps Indication:Nonsmoker Start:11-Jul-2021 Instruction Type:Patient Education Patient Instructions Indication:Nonsmoker Start:16-May-2021 Instruction Type:Provider Instructions for Treatment How to Access Health Informa tion Online using Patient Portal and 3rd [employer] Apps Indication:Nonsmoker Start:16-May-2021 Instruction Type:Patient Education [facility]; [facility] Work Phone: Instructions* Name Dates Details Patient Instructions Indication:Bilateral leg edema Start:03-Jun-2023 Instruction Type:Provider Instructions for Treatment How to Access Health Informa tion Online using Patient Portal and [employer] Apps Indication:Bilateral leg edema Start:03-Jun-2023 Instruction Type:Patient Education Patient Instructions Indication:Hypertension Start:25-Feb-2023 Instruction Type:Provider Instructions for Treatment How to Access Health Informa tion Online using Patient Portal and [employer] Apps Indication:Hypertension Start:25-Feb-2023 Instruction Type:Patient Education Patient Instructions Indication:Hyperlipidemia Start:12-Nov-2022 Instruction Type:Provider Instructions for Treatment How to Access Health Informa tion Online using Patient Portal and [employer]rd [employer] Apps Indication:Hyperlipidemia Start:12-Nov-2022 Instruction Type:Patient Education Patient Instructions Indication:Nonsmoker Start:30-Jul-2022 Instruction Type:Provider Instructions for Treatment How to Access Health Informa tion Online using Patient Portal and 3rd [employer] Apps Indication:Nonsmoker Start:30-Jul-2022 Instruction Type:Patient Education Patient Instructions 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 Start:27-May-2022 Instruction Type:Provider Instructions for Treatment Patient Instructions Indication:Nonsmoker Start:23-Mar-2022 Instruction Type:Provider Instructions for Treatment How to Access Health Informa tion Online using Patient Portal and [employer]rd [employer] Apps Indication:Nonsmoker Start:23-Mar-2022 Instruction Type:Patient Education Patient Instructions Indication:Anxiety Start:24-Jan-2022 Instruction Type:Provider Instructions for Treatment How to Access Health Informa tion Online using Patient Portal and [employer]rd [employer] Apps Indication:Anxiety Start:24-Jan-2022 Instruction Type:Patient Education Patient Instructions Indication:Hyperlipidemia Start:25-Oct-2021 Instruction Type:Provider Instructions for Treatment How to Access Health Informa tion Online using Patient Portal and 3rd [employer] Apps Indication:Hyperlipidemia Start:25-Oct-2021 Instruction Type:Patient Education Patient Instructions Indication:Nonsmoker Start:11-Jul-2021 Instruction Type:Provider Instructions for Treatment How to Access Health Informa tion Online using Patient Portal and [employer]rd [employer] Apps Indication:Nonsmoker Start:11-Jul-2021 Instruction Type:Patient Education Patient Instructions Indication:Nonsmoker Start:16-May-2021 Instruction Type:Provider Instructions for Treatment How to Access Health Informa tion Online using Patient Portal and [employer]rd [employer] Apps Indication:Nonsmoker Start:16-May-2021 Instruction Type:Patient Education [facility]; [facility] Work Phone: Instructions* Name Dates Details Patient Instructions Indication:Bilateral leg edema Start:03-Jun-2023 Instruction Type:Provider Instructions for Treatment How to Access Health Informa tion Online using Patient Portal and [employer]rd [employer] Apps Indication:Bilateral leg edema Start:03-Jun-2023 Instruction Type:Patient Education Patient Instructions Indication:Hypertension Start:25-Feb-2023 Instruction Type:Provider Instructions for Treatment How to Access Health Informa tion Online using Patient Portal and [employer]rd [employer] Apps Indication:Hypertension Start:25-Feb-2023 Instruction Type:Patient Education Patient Instructions Indication:Hyperlipidemia Start:12-Nov-2022 Instruction Type:Provider Instructions for Treatment How to Access Health Informa tion Online using Patient Portal and [employer]rd [employer] Apps Indication:Hyperlipidemia Start:12-Nov-2022 Instruction Type:Patient Education Patient Instructions Indication:Nonsmoker Start:30-Jul-2022 Instruction Type:Provider Instructions for Treatment How to Access Health Informa tion Online using Patient Portal and [employer]rd [employer] Apps Indication:Nonsmoker Start:30-Jul-2022 Instruction Type:Patient Education Patient Instructions 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 Start:27-May-2022 Instruction Type:Provider Instructions for Treatment Patient Instructions Indication:Nonsmoker Start:23-Mar-2022 Instruction Type:Provider Instructions for Treatment How to Access Health Informa tion Online using Patient Portal and [employer]rd [employer] Apps Indication:Nonsmoker Start:23-Mar-2022 Instruction Type:Patient Education Patient Instructions Indication:Anxiety Start:24-Jan-2022 Instruction Type:Provider Instructions for Treatment How to Access Health Informa tion Online using Patient Portal and [employer]rd [employer] Apps Indication:Anxiety Start:24-Jan-2022 Instruction Type:Patient Education Patient Instructions Indication:Hyperlipidemia Start:25-Oct-2021 Instruction Type:Provider Instructions for Treatment How to Access Health Informa tion Online using Patient Portal and [employer]rd [employer] Apps Indication:Hyperlipidemia Start:25-Oct-2021 Instruction Type:Patient Education Patient Instructions Indication:Nonsmoker Start:11-Jul-2021 Instruction Type:Provider Instructions for Treatment How to Access Health Informa tion Online using Patient Portal and [employer]rd [employer] Apps Indication:Nonsmoker Start:11-Jul-2021 Instruction Type:Patient Education Patient Instructions Indication:Nonsmoker Start:16-May-2021 Instruction Type:Provider Instructions for Treatment How to Access Health Informa tion Online using Patient Portal and [employer]rd [employer] Apps Indication:Nonsmoker Start:16-May-2021 Instruction Type:Patient Education [facility]; [facility] Work Phone: Instructions* Name Dates Details Patient Instructions Indication:Bilateral leg edema Start:03-Jun-2023 Instruction Type:Provider Instructions for Treatment How to Access Health Informa tion Online using Patient Portal and [employer]rd [employer] Apps Indication:Bilateral leg edema Start:03-Jun-2023 Instruction Type:Patient Education Patient Instructions Indication:Hypertension Start:25-Feb-2023 Instruction Type:Provider Instructions for Treatment How to Access Health Informa tion Online using Patient Portal and [employer]rd [employer] Apps Indication:Hypertension Start:25-Feb-2023 Instruction Type:Patient Education Patient Instructions Indication:Hyperlipidemia Start:12-Nov-2022 Instruction Type:Provider Instructions for Treatment How to Access Health Informa tion Online using Patient Portal and [employer] Apps Indication:Hyperlipidemia Start:12-Nov-2022 Instruction Type:Patient Education Patient Instructions Indication:Nonsmoker Start:30-Jul-2022 Instruction Type:Provider Instructions for Treatment How to Access Health Informa tion Online using Patient Portal and [employer] Apps Indication:Nonsmoker Start:30-Jul-2022 Instruction Type:Patient Education Patient Instructions 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 Start:27-May-2022 Instruction Type:Provider Instructions for Treatment Patient Instructions Indication:Nonsmoker Start:23-Mar-2022 Instruction Type:Provider Instructions for Treatment How to Access Health Informa tion Online using Patient Portal and [employer]rd [employer] Apps Indication:Nonsmoker Start:23-Mar-2022 Instruction Type:Patient Education Patient Instructions Indication:Anxiety Start:24-Jan-2022 Instruction Type:Provider Instructions for Treatment How to Access Health Informa tion Online using Patient Portal and [employer]rd [employer] Apps Indication:Anxiety Start:24-Jan-2022 Instruction Type:Patient Education Patient Instructions Indication:Hyperlipidemia Start:25-Oct-2021 Instruction Type:Provider Instructions for Treatment How to Access Health Informa tion Online using Patient Portal and [employer]rd [employer] Apps Indication:Hyperlipidemia Start:25-Oct-2021 Instruction Type:Patient Education Patient Instructions Indication:Nonsmoker Start:11-Jul-2021 Instruction Type:Provider Instructions for Treatment How to Access Health Informa tion Online using Patient Portal and [employer]rd [employer] Apps Indication:Nonsmoker Start:11-Jul-2021 Instruction Type:Patient Education Patient Instructions Indication:Nonsmoker Start:16-May-2021 Instruction Type:Provider Instructions for Treatment How to Access Health Informa tion Online using Patient Portal and [employer]rd [employer] Apps Indication:Nonsmoker Start:16-May-2021 Instruction Type:Patient Education [facility]; [facility] Work Phone: Instructions* Name Dates Details Patient Instructions Indication:Bilateral leg edema Start:03-Jun-2023 Instruction Type:Provider Instructions for Treatment How to Access Health Informa tion Online using Patient Portal and [employer]rd [employer] Apps Indication:Bilateral leg edema Start:03-Jun-2023 Instruction Type:Patient Education Patient Instructions Indication:Hypertension Start:25-Feb-2023 Instruction Type:Provider Instructions for Treatment How to Access Health Informa tion Online using Patient Portal and [employer]rd [employer] Apps Indication:Hypertension Start:25-Feb-2023 Instruction Type:Patient Education Patient Instructions Indication:Hyperlipidemia Start:12-Nov-2022 Instruction Type:Provider Instructions for Treatment How to Access Health Informa tion Online using Patient Portal and [employer]rd [employer] Apps Indication:Hyperlipidemia Start:12-Nov-2022 Instruction Type:Patient Education Patient Instructions Indication:Nonsmoker Start:30-Jul-2022 Instruction Type:Provider Instructions for Treatment How to Access Health Informa tion Online using Patient Portal and [employer]rd [employer] Apps Indication:Nonsmoker Start:30-Jul-2022 Instruction Type:Patient Education Patient Instructions 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 Start:27-May-2022 Instruction Type:Provider Instructions for Treatment Patient Instructions Indication:Nonsmoker Start:23-Mar-2022 Instruction Type:Provider Instructions for Treatment How to Access Health Informa tion Online using Patient Portal and [employer]rd [employer] Apps Indication:Nonsmoker Start:23-Mar-2022 Instruction Type:Patient Education Patient Instructions Indication:Anxiety Start:24-Jan-2022 Instruction Type:Provider Instructions for Treatment How to Access Health Informa tion Online using Patient Portal and [employer]rd [employer] Apps Indication:Anxiety Start:24-Jan-2022 Instruction Type:Patient Education Patient Instructions Indication:Hyperlipidemia Start:25-Oct-2021 Instruction Type:Provider Instructions for Treatment How to Access Health Informa tion Online using Patient Portal and [employer]rd [employer] Apps Indication:Hyperlipidemia Start:25-Oct-2021 Instruction Type:Patient Education Patient Instructions Indication:Nonsmoker Start:11-Jul-2021 Instruction Type:Provider Instructions for Treatment How to Access Health Informa tion Online using Patient Portal and [employer]rd [employer] Apps Indication:Nonsmoker Start:11-Jul-2021 Instruction Type:Patient Education Patient Instructions Indication:Nonsmoker Start:16-May-2021 Instruction Type:Provider Instructions for Treatment How to Access Health Informa tion Online using Patient Portal and 3rd [employer] Apps Indication:Nonsmoker Start:16-May-2021 Instruction Type:Patient Education [facility]; [facility] Work Phone: Summary Purpose Family History Unknown Family Member Name Dates Details Brother 1 Comments: in 60s wit h lewy body disease Status:Active Brother 2 Comments:living and 18 years younger - no major health issues Status:Active Father Comments:- 87- htn o ld age - history of colon cancer in his 40s Status:Active Mother Comments: - htn [address] cancer- Status:Active Unknown Family Member Name Dates Details Brother 1 Comments: in 60s wit h lewy body disease Status:Active Brother 2 Comments:living and 18 years younger - no major health issues Status:Active Father Comments:- 87- htn o ld age - history of colon cancer in his 40s Status:Active Mother Comments: - htn [address] cancer- Status:Active Unknown Family Member Name Dates Details Brother 1 Comments: in 60s wit h lewy body disease Status:Active Brother 2 Comments:living and 18 years younger - no major health issues Status:Active Father Comments:- 87- htn o ld age - history of colon cancer in his 40s Status:Active Mother Comments: - htn [address] cancer- Status:Active Unknown Family Member Name Dates Details Brother 1 Comments: in 60s wit h lewy body disease Status:Active Brother 2 Comments:living and 18 years younger - no major health issues Status:Active Father Comments:- 87- htn o ld age - history of colon cancer in his 40s Status:Active Mother Comments: - htn [address] cancer- Status:Active Unknown Family Member Name Dates Details Brother 1 Comments: in 60s wit h lewy body disease Status:Active Brother 2 Comments:living and 18 years younger - no major health issues Status:Active Father Comments:- 87- htn o ld age - history of colon cancer in his 40s Status:Active Mother Comments: - htn [address] cancer- Status:Active Unknown Family Member Name Dates Details Brother 1 Comments: in 60s wit h lewy body disease Status:Active Brother 2 Comments:living and 18 years younger - no major health issues Status:Active Father Comments:- 87- htn o ld age - history of colon cancer in his 40s Status:Active Mother Comments: - htn [address] cancer- Status:Active Unknown Family Member Name Dates Details Brother 1 Comments: in 60s wit h lewy body disease Status:Active Brother 2 Comments:living and 18 years younger - no major health issues Status:Active Father Comments:- 87- htn o ld age - history of colon cancer in his 40s Status:Active Mother Comments: - htn [address] cancer- Status:Active Unknown Family Member Name Dates Details Brother 1 Comments: in 60s wit h lewy body disease Status:Active Brother 2 Comments:living and 18 years younger - no major health issues Status:Active Father Comments:- 87- htn o ld age - history of colon cancer in his 40s Status:Active Mother Comments: - htn [address] cancer- Status:Active Unknown Family Member Name Dates Details Brother 1 Comments: in 60s wit h lewy body disease Status:Active Brother 2 Comments:living and 18 years younger - no major health issues Status:Active Father Comments:- 87- htn o ld age - history of colon cancer in his 40s Status:Active Mother Comments: - htn [address] cancer- Status:Active Unknown Family Member Name Dates Details Brother 1 Comments: in 60s wit h lewy body disease Status:Active Brother 2 Comments:living and 18 years younger - no major health issues Status:Active Father Comments:- 87- htn o ld age - history of colon cancer in his 40s Status:Active Mother Comments: - htn [address] cancer- Status:Active Unknown Family Member Name Dates Details Brother 1 Comments: in 60s wit h lewy body disease Status:Active Brother 2 Comments:living and 18 years younger - no major health issues Status:Active Father Comments:- 87- htn o ld age - history of colon cancer in his 40s Status:Active Mother Comments: - htn [address] cancer- Status:Active Unknown Family Member Name Dates Details Brother 1 Comments: in 60s wit h lewy body disease Status:Active Brother 2 Comments:living and 18 years younger - no major health issues Status:Active Father Comments:- 87- htn o ld age - history of colon cancer in his 40s Status:Active Mother Comments: - htn [address] cancer- Status:Active Unknown Family Member Name Dates Details Brother 1 Comments: in 60s wit h lewy body disease Status:Active Brother 2 Comments:living and 18 years younger - no major health issues Status:Active Father Comments:- 87- htn o ld age - history of colon cancer in his 40s Status:Active Mother Comments: - htn [address] cancer- Status:Active Unknown Family Member Name Dates Details Brother 1 Comments: in 60s wit h lewy body disease Status:Active Brother 2 Comments:living and 18 years younger - no major health issues Status:Active Father Comments:- 87- htn o ld age - history of colon cancer in his 40s Status:Active Mother Comments: - htn [address] cancer- Status:Active Unknown Family Member Name Dates Details Brother 1 Comments: in 60s wit h lewy body disease Status:Active Brother 2 Comments:living and 18 years younger - no major health issues Status:Active Father Comments:- 87- htn o ld age - history of colon cancer in his 40s Status:Active Mother Comments: - htn [address] cancer- Status:Active Unknown Family Member Name Dates Details Brother 1 Comments: in 60s wit h lewy body disease Status:Active Brother 2 Comments:living and 18 years younger - no major health issues Status:Active Father Comments:- 87- htn o ld age - history of colon cancer in his 40s Status:Active Mother Comments: - htn [address] cancer- Status:Active Unknown Family Member Name Dates Details Brother 1 Comments: in 60s wit h lewy body disease Status:Active Brother 2 Comments:living and 18 years younger - no major health issues Status:Active Father Comments:- 87- htn o ld age - history of colon cancer in his 40s Status:Active Mother Comments: - htn [address] cancer- Status:Active Unknown Family Member Name Dates Details Brother 1 Comments: in 60s wit h lewy body disease Status:Active Brother 2 Comments:living and 18 years younger - no major health issues Status:Active Father Comments:- 87- htn o ld age - history of colon cancer in his 40s Status:Active Mother Comments: - htn [address] cancer- Status:Active Unknown Family Member Name Dates Details Brother 1 Comments: in 60s wit h lewy body disease Status:Active Brother 2 Comments:living and 18 years younger - no major health issues Status:Active Father Comments:- 87- htn o ld age - history of colon cancer in his 40s Status:Active Mother Comments: - htn [address] cancer- Status:Active Unknown Family Member Name Dates Details Brother 1 Comments: in 60s wit h lewy body disease Status:Active Brother 2 Comments:living and 18 years younger - no major health issues Status:Active Father Comments:- 87- htn o ld age - history of colon cancer in his 40s Status:Active Mother Comments: - htn [address] cancer- Status:Active Unknown Family Member Name Dates Details Brother 1 Comments: in 60s wit h lewy body disease Status:Active Brother 2 Comments:living and 18 years younger - no major health issues Status:Active Father Comments:- 87- htn o ld age - history of colon cancer in his 40s Status:Active Mother Comments: - htn [address] cancer- Status:Active Unknown Family Member Name Dates Details Brother 1 Comments: in 60s wit h lewy body disease Status:Active Brother 2 Comments:living and 18 years younger - no major health issues Status:Active Father Comments:- 87- htn o ld age - history of colon cancer in his 40s Status:Active Mother Comments: - htn [address] cancer- Status:Active Unknown Family Member Name Dates Details Brother 1 Comments: in 60s wit h lewy body disease Status:Active Brother 2 Comments:living and 18 years younger - no major health issues Status:Active Father Comments:- 87- htn o ld age - history of colon cancer in his 40s Status:Active Mother Comments: - htn [address] cancer- Status:Active Unknown Family Member Name Dates Details Brother 1 Comments: in 60s wit h lewy body disease Status:Active Brother 2 Comments:living and 18 years younger - no major health issues Status:Active Father Comments:- 87- htn o ld age - history of colon cancer in his 40s Status:Active Mother Comments: - htn [address] cancer- Status:Active Unknown Family Member Name Dates Details Brother 1 Comments: in 60s wit h lewy body disease Status:Active Brother 2 Comments:living and 18 years younger - no major health issues Status:Active Father Comments:- 87- htn o ld age - history of colon cancer in his 40s Status:Active Mother Comments: - htn [address] cancer- Status:Active Unknown Family Member Name Dates Details Brother 1 Comments: in 60s wit h lewy body disease Status:Active Brother 2 Comments:living and 18 years younger - no major health issues Status:Active Father Comments:- 87- htn o ld age - history of colon cancer in his 40s Status:Active Mother Comments: - htn [address] cancer- Status:Active Unknown Family Member Name Dates Details Brother 1 Comments: in 60s wit h lewy body disease Status:Active Brother 2 Comments:living and 18 years younger - no major health issues Status:Active Father Comments:- 87- htn o ld age - history of colon cancer in his 40s Status:Active Mother Comments: - htn [address] cancer- Status:Active Unknown Family Member Name Dates Details Brother 1 Comments: in 60s wit h lewy body disease Status:Active Brother 2 Comments:living and 18 years younger - no major health issues Status:Active Father Comments:- 87- htn o ld age - history of colon cancer in his 40s Status:Active Mother Comments: - htn [address] cancer- Status:Active Unknown Family Member Name Dates Details Brother 1 Comments: in 60s wit h lewy body disease Status:Active Brother 2 Comments:living and 18 years younger - no major health issues Status:Active Father Comments:- Wilbur- htn o ld age - history of colon cancer in his 40s Status:Active Mother Comments: - htn [address] cancer- Status:Active Unknown Family Member Name Dates Details Brother 1 Comments: in 60s wit h lewy body disease Status:Active Brother 2 Comments:living and 18 years younger - no major health issues Status:Active Father Comments:- Wilbur- htn o ld age - history of colon cancer in his 40s Status:Active Mother Comments: - htn [address] cancer- Status:Active Unknown Family Member Name Dates Details Brother 1 Comments: in 60s wit h lewy body disease Status:Active Brother 2 Comments:living and 18 years younger - no major health issues Status:Active Father Comments:Shi Bowles- htn o ld age - history of colon cancer in his 40s Status:Active Mother Comments: - htn [address] cancer- Status:Active Advance Directives Name Dates Details Immunization Registry [place] - Effective on 07/12/2021. Expiration date unspecified Effective:12-Jul-2021 Name Dates Details Immunization Registry [place] - Effective on 07/12/2021. Expiration date unspecified Effective:12-Jul-2021 Name Dates Details Immunization Registry [place] - Effective on 07/12/2021. Expiration date unspecified Effective:12-Jul-2021 Name Dates Details Living Will - Effective on . Expiration date unspecified. Scanned Document is available upon request. Effective:30-Oct-2021 Immunization Registry [place] - Effective on 07/12/2021. Expiration date unspecified Effective:12-Jul-2021 Name Dates Details Living Will - Effective on . Expiration date unspecified. Scanned Document is available upon request. Effective:30-Oct-2021 Immunization Registry [place] - Effective on 07/12/2021. Expiration date unspecified Effective:12-Jul-2021 Name Dates Details Living Will - Effective on . Expiration date unspecified. Scanned Document is available upon request. Effective:30-Oct-2021 Immunization Registry [place] - Effective on 07/12/2021. Expiration date unspecified Effective:12-Jul-2021 Name Dates Details Living Will - Effective on . Expiration date unspecified. Scanned Document is available upon request. Effective:30-Oct-2021 Immunization Registry [place] - Effective on 07/12/2021. Expiration date unspecified Effective:12-Jul-2021 Name Dates Details Living Will - Effective on . Expiration date unspecified. Scanned Document is available upon request. Effective:30-Oct-2021 Immunization Registry [place] - Effective on 07/12/2021. Expiration date unspecified Effective:12-Jul-2021 Name Dates Details Living Will - Effective on . Expiration date unspecified. Scanned Document is available upon request. Effective:30-Oct-2021 Immunization Registry [place] - Effective on 07/12/2021. Expiration date unspecified Effective:12-Jul-2021 Name Dates Details Living Will - Effective on . Expiration date unspecified. Scanned Document is available upon request. Effective:30-Oct-2021 Immunization Registry [place] - Effective on 07/12/2021. Expiration date unspecified Effective:12-Jul-2021 Name Dates Details Living Will - Effective on . Expiration date unspecified. Scanned Document is available upon request. Effective:30-Oct-2021 Immunization Registry [place] - Effective on 07/12/2021. Expiration date unspecified Effective:12-Jul-2021 Name Dates Details Living Will - Effective on . Expiration date unspecified. Scanned Document is available upon request. Effective:30-Oct-2021 Immunization Registry [place] - Effective on 07/12/2021. Expiration date unspecified Effective:12-Jul-2021 Documents on File Type Date Recorded Patient Family Law Mediator Expl anation Advance Directive(s) 12/16/2017 8:36 AM Name Dates Details Living Will - Effective on . Expiration date unspecified. Scanned Document is available upon request. Effective:30-Oct-2021 Immunization Registry [place] - Effective on 07/12/2021. Expiration date unspecified Effective:12-Jul-2021 Name Dates Details Living Will - Effective on . Expiration date unspecified. Scanned Document is available upon request. Effective:30-Oct-2021 Immunization Registry [place] - Effective on 07/12/2021. Expiration date unspecified Effective:12-Jul-2021 Name Dates Details Living Will - Effective on . Expiration date unspecified. Scanned Document is available upon request. Effective:30-Oct-2021 Immunization Registry [place] - Effective on 07/12/2021. Expiration date unspecified Effective:12-Jul-2021 Name Dates Details Living Will - Effective on . Expiration date unspecified. Scanned Document is available upon request. Effective:30-Oct-2021 Immunization Registry [place] - Effective on 07/12/2021. Expiration date unspecified Effective:12-Jul-2021 Name Dates Details Living Will - Effective on . Expiration date unspecified. Scanned Document is available upon request. Effective:30-Oct-2021 Immunization Registry [place] - Effective on 07/12/2021. Expiration date unspecified Effective:12-Jul-2021 Name Dates Details Living Will - Effective on . Expiration date unspecified. Scanned Document is available upon request. Effective:30-Oct-2021 Immunization Registry [place] - Effective on 07/12/2021. Expiration date unspecified Effective:12-Jul-2021 Name Dates Details Living Will - Effective on . Expiration date unspecified. Scanned Document is available upon request. Effective:30-Oct-2021 Immunization Registry [place] - Effective on 07/12/2021. Expiration date unspecified Effective:12-Jul-2021 Name Dates Details Living Will - Effective on . Expiration date unspecified. Scanned Document is available upon request. Effective:30-Oct-2021 Immunization Registry [place] - Effective on 07/12/2021. Expiration date unspecified Effective:12-Jul-2021 Name Dates Details Living Will - Effective on . Expiration date unspecified. Scanned Document is available upon request. Effective:30-Oct-2021 Immunization Registry [place] - Effective on 07/12/2021. Expiration date unspecified Effective:12-Jul-2021 Name Dates Details Living Will - Effective on . Expiration date unspecified. Scanned Document is available upon request. Effective:30-Oct-2021 Immunization Registry [place] - Effective on 07/12/2021. Expiration date unspecified Effective:12-Jul-2021 Name Dates Details Living Will - Effective on . Expiration date unspecified. Scanned Document is available upon request. Effective:30-Oct-2021 Immunization Registry [place] - Effective on 07/12/2021. Expiration date unspecified Effective:12-Jul-2021 Name Dates Details Living Will - Effective on . Expiration date unspecified. Scanned Document is available upon request. Effective:30-Oct-2021 Immunization Registry [place] - Effective on 07/12/2021. Expiration date unspecified Effective:12-Jul-2021 Additional Source Comments (unrecognized sect ion and content) No Status Records FoundNo Status Records FoundNo Status Records FoundNo Status Records Found INFORMATION SOURCE (unrecogn ized section and content) DATE CREATED AUTHOR 03/05/2018 [facility] DATE CREATED AUTHOR AUTHOR'S ORGANIZ ATION 03/05/2018 [facility] DATE CREATED AUTHOR AUTHOR'S ORGANIZ ATION 04/20/2022 [facility] DATE CREATED AUTHOR AUTHOR'S ORGANIZ ATION 11/14/2022 [facility] Source Comments (unrecognize d section and content) In the event this informatio n is protected by the Federal Confidentiality of Alcohol and Drug Abuse Patient Records regulations: The Federal rules restrict any use of the information to criminally investigate or prosecute any alcohol or drug abuse patient[facility] the event this information is protected by the Federal Confidentiality of Alcohol and Drug Abuse Patient Records regulations: The Federal rules restrict any use of the information to criminally investigate or prosecute any alcohol or drug abuse patient[facility] Reason for Visit (unrecogniz ed section and content) Reason Comments Consult right breast Reason Comments Procedure Right Breast Biopsy Care Teams (unrecognized sec tion and content) Import/Export 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 This clinical summary was aggregated from multiple sources. Caution should be exercised in using it in the provision of clinical care. This summary normalizes information from multiple sources, and as a consequence, information in this document may materially change the coding, format and clinical context of patient data. In addition, data may be omitted in some cases. CLINICAL DECISIONS SHOULD BE BASED ON THE PRIMARY CLINICAL RECORDS. [facility]. provides no warranty or guarantee of the accuracy or completeness of information in this document.
[2024-07-02 06:44] LABS: Absolute Lymphocyte Count 1.27 X10^3/uL (0.83-4.51); Absolute Neutrophil Count 4.2 X10^3/uL (2.0-7.7); Basophil# 0.05 X10^3/uL; Basophil% 0.8 % (0-1); Eosinophil# 0.31 X10^3/uL; Eosinophils% 4.9 % (0-5); Hematocrit 43.9 % (40-54); Hemoglobin 15.1 g/dL (13.0-16.5); Lymphocyte # 1.27 X10^3/ul (0.83-4.51); Lymphocyte % 20.1 % (19-41); Mean Corp Hgb Conc 34.4 g/dL (32-36); Mean Corpuscular Hgb 33.6 pg (27.0-32.0); Mean Corpuscular Volume 97.6 fL (80-94); Mean Platelet Vol. 10.8 fl (6.2-12.0); Monocyte# 0.49 X10^3/uL; Monocyte% 7.8 % (0-10); NRBC Flagged by Analyzer 0 % (0-5); Neutrophil # 4.19 X10^3/uL (2.7-7.7); Neutrophil % 66.2 % (47-70); Platelet Count 205 K/mm3 (150-450); RBC Distribution Width CV 12.8 % (11.6-14.6); RBC Distribution Width SD 45.9 fl (35.1-43.9); White Blood Count 6.3 K/mm3 (4.4-11.0)
[2024-07-02 07:29] LABS: ALB/GLOB Ratio 1.2 RATIO (0.9-2.4); AST(SGOT) 20 U/L (15-37); Alanine Aminotransfer ALT/SGPT 23 U/L (16-61); Albumin, Serum 3.9 g/dL (3.2-5.0); Alkaline Phosphatase 75 U/L (45-117); Anion Gap 5 (5-15); BUN 25 mg/dL (7-18); BUN/Creat Ratio 29.8 RATIO (10-20); Calcium,Total 9.3 mg/dL (8.5-10.1); Chloride 107 mmol/L (98-107); Cholesterol 201 mg/dL (200); Creatinine, Serum 0.84 mg/dL (0.70-1.30); EST Glomerular Filtration Rate 94 mL/min (>60); Est Glom Filt Rate - Afr Amer 113 mL/min (>60); Globulin 3.2 g/dL (2.2-4.2); Glucose 89 mg/dL (74-106); High Density Lipoprotein 85 mg/dL; Potassium 4.2 mmol/L (3.5-5.1); Protein, Total 7.1 g/dL (6.4-8.2); Sodium Level 139 mmol/L (136-145); Triglycerides 63 mg/dL; Very Low Density Lipoprotein 13 mg/dL (5-40)
[2024-07-02 08:21] LABS: Vitamin D,25 Hydroxy 38.5 ng/mL
== END | disposition home or self-care (01) ==
PROVIDERS: PCP Internal Medicine; Referring Provider Internal Medicine; Visit Provider Internal Medicine
DX: I10 Essential (primary) hypertension (principal); E78.5 Hyperlipidemia, unspecified; E67.3 Hypervitaminosis D
CPT/HCPCS: 36415; 80053; 80061; 82306; 85025

== ENCOUNTER → 2024-12-23 | Outpatient (CLI) | payer MEDICARE, SELFPAY ==
[2024-12-23 06:55] LABS: Absolute Lymphocyte Count 1.36 X10^3/uL (0.83-4.51); Absolute Neutrophil Count 3.3 X10^3/uL (2.0-7.7); Basophil# 0.05 X10^3/uL; Basophil% 0.9 % (0-1); Eosinophil# 0.36 X10^3/uL; Eosinophils% 6.6 % (0-5); Hematocrit 42.5 % (40-54); Hemoglobin 15.1 g/dL (13.0-16.5); Lymphocyte # 1.36 X10^3/ul (0.83-4.51); Lymphocyte % 24.8 % (19-41); Mean Corp Hgb Conc 35.5 g/dL (32-36); Mean Corpuscular Hgb 34.3 pg (27.0-32.0); Mean Corpuscular Volume 96.6 fL (80-94); Mean Platelet Vol. 11.3 fl (6.2-12.0); Monocyte# 0.46 X10^3/uL; Monocyte% 8.4 % (0-10); NRBC Flagged by Analyzer 0 % (0-5); Neutrophil # 3.25 X10^3/uL (2.7-7.7); Neutrophil % 59.1 % (47-70); Platelet Count 188 K/mm3 (150-450); RBC Distribution Width CV 12.6 % (11.6-14.6); White Blood Count 5.5 K/mm3 (4.4-11.0)
[2024-12-23 09:55] LABS: Cholesterol 198 mg/dL (<=200); High Density Lipoprotein 79 mg/dL; Low Density Lipoprotein Calc. 100 mg/dL; Triglycerides 97 mg/dL; Very Low Density Lipoprotein 19 mg/dL (5-40); cholesterol:hdl ratio screen 2.52
[2024-12-23 10:03] LABS: ALB/GLOB Ratio 1.7 RATIO (0.9-2.4); AST(SGOT) 25 U/L (<=37); Alanine Aminotransfer ALT/SGPT 19 U/L (<=46); Albumin, Serum 4.4 g/dL (3.4-4.8); Alkaline Phosphatase 82 U/L (40-129); Anion Gap 11 (5-15); BUN 21 mg/dL (4-19); Calcium,Total 9.5 mg/dL (7.6-11.0); Carbon Dioxide 22.7 mmol/L (21.0-32.0); Chloride 105 mmol/L (98-108); Creatinine, Serum 0.93 mg/dL (0.70-1.20); EST Glomerular Filtration Rate 84 (>60); Globulin 2.6 g/dL (2.2-4.2); Glucose 83 mg/dL (70-99); Potassium 4.6 mmol/L (3.3-5.1); Sodium Level 139 mmol/L (133-145); Total Bilirubin 0.36 mg/dL (0.00-1.30); Vitamin B12 3130 pg/mL (180-914); Vitamin D,25 Hydroxy 99.4 ng/mL (30-100)
== END | disposition home or self-care (01) ==
LOC: LAB 06:01
PROVIDERS: PCP Internal Medicine; Referring Provider Internal Medicine; Visit Provider Internal Medicine
DX: I10 Essential (primary) hypertension (principal); E78.5 Hyperlipidemia, unspecified; G62.9 Polyneuropathy, unspecified; E55.9 Vitamin D deficiency, unspecified
CPT/HCPCS: 36415; 80053; 80061; 82306; 82607; 82746; 85025

== ENCOUNTER 2025-03-02 05:38 | Day surgery (SDC) | payer MEDICARE, SELFPAY ==
--- NOTE | 2025-02-25 13:18 | PAT.ANE_ITS ---
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 When Was Last Pacemaker Check QUESTION #4 FULL TEXT: You/Your Family Experience fever (hyperthermia) with Anesthesia Last Oral Intake Last Oral intake: Last Oral Intake NPO since Meds taken in AM with sips of water? Meds patient instructed to take am of surgery PONV PONV - wind energy mechanic: PONV - wind energy mechanic Female No 02/25/25 12:56 HX of Motion Sickness No 02/25/25 12:56 HX of N/V After Surgery No 02/25/25 12:56 Non-Smoker Yes 02/25/25 12:56 Duration of Surgery greater No 02/25/25 12:56 than 60 minutes Number of Risk Factors 1 02/25/25 12:56 PONV Score Low Risk 02/25/25 12:56 Height & Weight Height & Weight: Anesthesia: Height & Weight Height 6 ft 05/10/24 10:25 Respiratory Assessment Respiratory Assessment - wind energy mechanic: Respiratory Tract Infection Hx - wind energy mechanic Hx Respiratory Tract Infection No 02/25/25 12:56 STOP Sleep Apnea STOP Sleep Apnea - wind energy mechanic: STOP Sleep Apnea - wind energy mechanic Hx Hypertension Yes: CONTROLLED WITH 02/25/25 12:56 Hx Sleep Apnea No 02/25/25 12:56 CPAP BIPAP Do you snore loudly (louder No 02/25/25 12:56 than talking or can be heard Do you often feel tired/ No 02/25/25 12:56 fatigued/ sleepy during daytime? Has anyone observed you stop No 02/25/25 12:56 breathing during sleep? STOP Results Negative 02/25/25 12:56 QUESTION #5 FULL TEXT : Do you snore loudly (louder than talking or can be heard through closed doors)? 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 Specify any problems Hx of Preganancy in last 3 N/A 02/25/25 12:56 Months Nurse Filling Out Transfusion NBUCHER 02/25/25 12:56 & Questions: Date: 02/25/25 02/25/25 12:56 Time: 12:56 02/25/25 12:56 Patient unable to answer at this time (ie. confused, unrespo /Reproduction History /Reproductive History - wind energy mechanic: /Reproductive Hx- wind energy mechanic Hx Now No 02/25/25 12:56 Gestational Age (in weeks): EDC: Hx Hx Para Hx Section SAB No 02/25/25 12:56 PFSH Medical History (Updated 02/25/25 @ 12:59 by Roz Del Toro) Arteriosclerosis of coronary artery Normal stress echocardiogram Gastritis Onofre esophagus Wears glasses Alcohol use Arthritis Back pain Hepatitis High cholesterol Gastric reflux Non-smoker History of edema History of echocardiogram History of stress test Cardiology follow-up encounter Hx of colonic polyp GERD (gastroesophageal reflux disease) Mitral valve annular calcification Chronic renal insufficiency Essential (primary) hypertension Raynaud disease Hyperlipidemia Palpitations Home Medications ?Medication ?Instructions ?Recorded ?Last Taken ?Type coenzyme Q10 30 mg capsule 30 mg PO DAILY 05/21/16 Unk nown History multivitamin 1 ea PO DAILY 05/21/16 Unkno wn History cyanocobalamin (vitamin B-12) 2,000 mcg PO DAILY 04/22 Unknown History 2,000 mcg tablet ascorbic acid (vitamin C) 1,000 mg 1 g PO QDAY 8 Unknown History tablet s-adenosylmethionine 400 mg tablet 800 mg PO DAILY 09/30 Unknown History melatonin 12 mg tablet 12 mg PO QHS 10/16/22 Unknow n History rosuvastatin 10 mg tablet 20 mg PO DAILY 10/16/22/11/01 History Held on 02/25/25. Instructions: pt does not want to take it aspirin-sod bicarb-citric acid 325 1 tab PO PRN PRN BL OATING 11/30/22 Unknown History mg-1,916 mg-1,000 mg efferves tab (Maryjane-Denise Original) lisinopril 5 mg tablet 5 mg PO DAILY #90 tabs 09/28 Unknown Rx vonoprazan 10 mg tablet (Voquezna) 10 mg PO QDAY 10/01 Unknown History omeprazole 40 mg capsule,delayed 40 mg PO QDAY #90 cap s 10/16/24 Unknown Rx release Allergy/AdvReac Type Severity Reaction Status Date / Time No Known Allergies Allergy Verified 02/25/25 12:52 Family History Father Cancer Colon cancer Mother , age 72 CAD (coronary artery disease) Hypertension Breast cancer Surgical History (Updated 02/25/25 @ 12:59 by Roz Del Toro) History of hand surgery History of cardiac catheterization History of esophagogastroduodenoscopy (EGD) Hx of foot surgery Hx of colonoscopy Hx of hernia repair Hx of transurethral resection of prostate Hx of appendectomy History of hydrocelectomy Social History Smoking Status: Never smoker alcohol intake: current alcohol intake frequency: 0-2 drinks per day substance use type: does not use caffeine: Yes Type: coffee Number of servings: 4 Audit: Pertinent Findings HISTORY of Pertinent Findings History of Pertinent Findings: BRIANNA COLEMAN, is a 79 M who presents today for a cardiovascular outpatient follow-up. He is a gentleman with no obstructive coronary disease, hypertension, hyperlipidemia, and probable raynauds phenomenon. He returns for follow-up visit. He was noted to have an elevated calcium score and underwent a cardiac catheterization which demonstrated no evidence of obstructive coronary disease. This was in 2022. He has been managed with risk factor modification. His major complaint at this time is that he is noted fatigue. Pertinent Findings EKG Perinent findings: EKG 04/2021: SR with occassional PACs Stress test pertinent findings: Stress test 05/05/2021: Conclusion Stress test with no EKG criteria for ischemia at a high workload. Excellent functional aerobic capacity. No arrhythmias noted. Echo (EF%) pertinent findings: Echocardiogram from 05/01/2021: Interpretation Summary Normal LV size. Left ventricular systolic function is normal. The estimated ejection fraction is 60 %. Stage 1 diastolic dysfunction. Mild (1+) eccentric mitral valve insufficiency. Mild mitral valve prolapse, posterior leaflet Stress Echo 05/05/21 Conclusion: Exercise stress echo with no EKG criteria or echocardiographic criteria for ischemia. Good functional aerobic capacity. Heart catheterization pertinent findings: Cardiac Catheterization 12/03/22 CONCLUSIONS Non obstructive coronary arteries CORONARY ANGIOGRAPHY DOMINANCE: Right Dominant LEFT HEART ASSESSMENT Left Ventricular Ejection Fraction: by LV Gram 65 % Normal Left Ventricular systolic function iFR performed on the LAD as well as the ramus intermedius and both were not significant LEFT MAIN: Mild calcification, Non-obstructive LEFT ANTERIOR DESCENDING ARTERY: Mild to moderately calcified with mid 40 to 50% stenotic lesion noted. CIRCUMFLEX ARTERY: Mild luminal irregularities less than 30% RAMUS: Mild proximal ectasia and mid 40 to 50% stenosis noted RIGHT CORONARY ARTERY: No significant disease noted VALVE FINDINGS: Mitral annular calcification noted Recommendation Anesthesia Recommendation Anesthesia recommendation: OPTIMIZED for anesthesia
[2025-03-02] VITALS (7 sets, daily range): BP systolic 125–162; BP diastolic 80–85; PULSE 55–68; RESP 16–18; TEMP 36.3–36.6; O2SAT 98–100; BMI 23.1
--- OUTSIDE RECORDS SUMMARY | 2025-03-02 05:41 | XMS RPT_ITS | CCD ---
Author Organization [facility] Care Team Providers Care Tree Inspector Name Role Phone Steve BEAR, Khadijah Clark Unavailable [employer] Unavailable Mal Joseph MD Unavailable ADRIANNA MCDUFFIE Unavailable Unavailable ADRIANNA MCDUFFIE Unavailable Unavailable NO REFERRING DR Unavailable Unavailable ADRIANNA MCDUFFIE Unavailable Unavailable ADRIANNA MCDUFFIE Unavailable Unavailable Fast DO, Francheska A Unavailable [facility], Naida Unavailable Unavailable Slarb RN ENTEROSTOMAL, Yoko Unavailable Unavailable Unavailable Unavailable Friend, Dr. Hernandez Unavailable Dr. Spike Mullen Referring Provider Dr. Petros Valdez Attending Provider [place], Dr. Pritchard Primary Care Provider [phone] Dr. Francheska Alonzo Referring Provider [phone] Radhika WASHERY ENGINEER, WASHERY ENGINEER-C Alicia Delatorre Attending Provider FriendDr. Hernandez Attending Provider Friend, Dr. Hernandez Other Provider Fast DO, Francheska A Unavailable Mal Elizabeth MD Unavailable [place] FOOD MIXER, Kayela Unavailable Unavailable Fast DO, Francheska A Primary Care Provider [phone] Clinton, Dr. Pritchard Primary Care Provider [phone] Clinton, Dr. Pritchard Referring Provider [phone] Fast DO, Francheska A Primary Care Provider [phone] Fast, Dr. Pritchard Primary Care Provider [phone] Fast, Dr. Pritchard Referring Provider [phone] FriendDr. Hernandez Attending Provider [phone] Fast DO, Francheska A Attending Unavailable Fast DO, Francheska A Consulting Unavailable Fast, Dr. Pritchard Primary Care Provider [phone] Fast, Dr. Pritchard Referring Provider [phone] Dr. Petros Valdez Attending Provider [phone] Antonio Hernandez Attending Provider [phone] Dr. Petros Valdez Other Provider Courtney, Dr. Morrell Referring Provider [phone] Tanner ARIZMENDI, KYLEIGH Delatorre Attending Provider Dr. dS Kirk Attending Provider [phone] Radhika WASHERY ENGINEER, WASHERY ENGINEER-C Alicia Delatorre Attending Provider [phone] FriendDr. Hernandez Attending Provider [phone] Dr. David Parra Other Provider [phone] [place], Dr. Pritchard Primary Care Provider [phone] Courtney, Dr. Morrell Attending Provider [phone] Fast, Dr. Pritchard Referring Provider [phone] [place], Dr. Pritchard Primary Care Provider [phone] Fast, Dr. Pritchard Referring Provider [phone] Radhika WASHERY ENGINEER, WASHERY ENGINEER-C Alicia Delatorre Attending Provider [phone] ARPAN Kelly LPN Unavailable Unavailable Fast, Dr. Pritchard Primary Care Provider [phone] Fast, Dr. Pritchard Referring Provider [phone] Dr. Michele Hodgson Attending Provider Dr. Durga Pierson Attending Provider Clinton, Dr. Pritchard Primary Care Provider [phone] Fast, Dr. Pritchard Referring Provider Courtney, Dr. Morrell Attending Provider [phone] Fast DO, Dr. Pritchard Primary Care Provider [phone] Fast DO, Dr. Pritchard Referring Provider [phone] Friend DO, Dr. Hernandez Attending Provider Fast DO, Dr. Pritchard Attending Provider Courtney MORALES, Dr. Morrell Attending Provider [phone] Fast, Francheska Referring Unavailable Friend, David Attending Unavailable Fast, Francheska Primary Care Unavailable Friend, David Attending Unavailable Fast, Francheska Referring Unavailable Fast, Francheska Primary Care Unavailable Fast, Francheska Primary Care Unavailable Courtney, Petros Referring Unavailable Courtney, [place] Attending Unavailable Fast, Francheska Referring Unavailable Fast, Francheska Attending Unavailable Fast, Francheska Primary Care Unavailable Fast, Francheska Primary Care Unavailable Friend, David Attending Unavailable Fast, Francheska Referring Unavailable Friend, David Attending Unavailable Fast, Francheska Referring Unavailable Fast, Francheska Primary Care Unavailable Fast, Francheska Primary Care Unavailable Fast, Francheska Referring Unavailable Courtney, Petros Attending Unavailable Fast, Francheska Referring Unavailable Friend, David Attending Unavailable Friend, David Consulting Unavailable Fast, Francheska Primary Care Unavailable Fast, Francheska Referring Unavailable Friend, David Attending Unavailable Fast, Francheska Referring Unavailable Fast, Francheska Attending Unavailable Fast, Francheska Primary Care Unavailable Fast, Francheska Primary Care Unavailable Fast, Francheska Referring Unavailable Fast, Francheska Attending Unavailable Mal Aleman Attending Unavailable Fast, Francheska Primary Care Unavailable Fast, Francheska Referring Unavailable Fast, Francheska Attending Unavailable Fast, Francheska Primary Care Unavailable Fast, Francheska Referring Unavailable Fast, Francheska Attending Unavailable Fast, Francheska Primary Care Unavailable Allergies Allergy Classification Reported Allergen(s) Allergy Type Date of Onset Reaction(s) Facility (20 sources) Codeine; Translations: [Codeine Sulfate *ANALGESICS - OPIOID*] Drug Allergy [facility] Work Phone: Comment on above: Consipation Medications Current Medications Medication Drug Class(es) Dates Sig (Normalized) Sig (Original) ascorbic acid 1000 mg oral tablet (20 sources) Start: 09-25-2017 take 1 g by mouth once daily Ascorbic Acid (Vitamin C) 1,000 mg tablet Active 1 g PO daily September 25, 2017 1:00am Start: 09-25-2017 take 1 g by mouth once daily A scorbic Acid (Vitamin C) Active 1 GM PO daily September 25, 2017 1:00am Start: 05-21-2016 End: 09-25-2017 take 1 tablet by mouth once daily Ascorbic Acid (Vitamin C) 500 MG tablet Discontinued 500 mg PO DAILY@0800 May 21, 2016 12:00am September 25, 2017 2:52pm Start: 08-28-2011 take 1 tablet by d[facility]han th once daily VITAMIN C 1000 MG TABS One tablet by mouth daily ASCORBIC ACID [id number] Yeni Gray RN Start: 08-16-2011 take 1 tablet by darshan th twice daily Ascorbic Acid (VITAMIN C) 500 mg ORAL CpER Take 1 tablet by mouth twice daily. 0 08/16/2011 Active Comment on above: Take 1 tablet by darshan th twice daily. aspirin 81 mg oral tablet (11 sources) Platelet Aggregation Inhibitor, Nonsteroidal Anti-inflammatory Drug Start: 12-03-2022 take 81 mg by mouth once daily Aspirin Active 81 MG PO DAILY December 03, 2022 12:00am Start: 11-30-2022 End: 11-30-2022 Aspirin (Adult Low Dose Aspi rin) 81 mg tablet,delayed release (DR/EC) Discontinued 81 mg PO DAILY November 30, 2022 12:00am November 30, 2022 12:19pm aspirin 325 mg / citric acid 1000 mg / sodium bicarbonate 1916 mg effervescent oral tablet (9 sources) Platelet Aggregation Inhibitor, Nonsteroidal Anti-inflammatory Drug, Calculi Dissolution Agent, Anti-coagulant Start: 11-30-2022 Aspirin-Sod Bicarb-Citric Acid (Maryjane-Pullman Original) 325-1,916-1,000 mg tablet, effervescent Active 1 {tbl} PO NEEDED as needed for BLOATING November 30, 2022 12:00am Start: 11-30-2022 take 325-1916 tablet s by mouth once daily Aspirin-Sod Bicarb-Citric Acid (Maryjane-Pullman Original) 325-1,916-1,000 mg tablet, effervescent Active 1 TABLET PO DAILY November 30, 2022 12:00am ubidecarenone 30 mg oral cap january (20 sources) Start: 05-21-2016 Coenzyme Q10 3 0 MG capsule Active 30 mg PO DAILY May 21, 2016 12:00am Start: 02-19-2012 take 1 capsule by [facility] once daily Coenzyme Q10 (COQ-10) 100 mg Cap Take 1 capsule by mouth once daily. 0 02/19/2012 Active Start: 12-12-2010 End: 08-28-2011 take 1 tablet by mouth once daily COENZYME Q10 60 MG TABS One tablet by mouth daily COENZYME Q10 [id number] Yeni Gray RN Comment on above: Take 1 capsule by [facility] once daily. Dexlansoprazole (Dexilant) 60 mg Capsule,Biphase Delayed Releas (12 sources) Start: 01-09-20 take 1 capsule by mouth once daily Dexlansoprazole (Dexilant) 60 mg Capsule,Biphase Delayed Releas Active 60 MG PO DAILY January 08, 2022 11:25am Start: 01-08-2022 End: 10-01-2024 take 1 capsule by mouth once daily Dexlansoprazole (Dexilant) 60 mg Capsule,Biphase Delayed Releas Discontinued 60 mg PO DAILY January 08, 2022 12:00am October 01, 2024 3:05pm Start: 01-08-2022 take 1 capsule by [facility] once daily Dexlansoprazole (Dexilant) 60 mg Capsule,Biphase Delayed Releas Active 60 MG PO DAILY January 07, 2022 11:00pm Start: 01-08-2022 take 1 capsule by [facility] once daily Dexlansoprazole (Dexilant) 60 mg Capsule,Biphase Delayed Releas Active 60 MG PO DAILY January 08, 2022 12:00am Iron (12 sources) Start: 01-08-2022 take 45 mg by mouth once daily Iron Active 45 MG PO DAILY January 08, 2022 11:18am Start: 01-08-2022 End: 02-25-2024 Iron 40 mg Capsule Discontin ued 45 mg PO DAILY January 08, 2022 12:00am February 25, 2024 3:01pm Start: 01-08-2022 take 45 mg by mouth once daily Iron Active 45 MG PO DAILY January 07, 2022 11:00pm Start: 01-08-2022 take 45 mg by mouth once daily Iron Active 45 MG PO DAILY January 08, 2022 12:00am Lactobacillus Combination No.4 (Probiotic) 3 billion cell Capsule (12 sources) Start: 01-08-2022 take 3 capsules by mouth once daily Lactobacillus Combination No.4 (Probiotic) 3 billion cell Capsule Active 3000 MMU CELLS PO DAILY January 08, 2022 11:18am Start: 01-08-2022 End: 10-16-2022 take 3 capsules by mouth once daily Lactobacillus Combination No.4 (Probiotic) 3 billion cell Capsule Discontinued 3000 NMA PO DAILY January 08, 2022 12:00am October 16, 2022 3:12pm Start: 01-08-2022 End: 10-16-2022 take 3 capsules by mouth once daily Lactobacillus Combination No.4 (Probiotic) 3 billion cell Capsule Discontinued 3000 MMU CELLS PO DAILY January 07, 2022 11:00pm October 16, 2022 2:12pm Start: 01-08-2022 End: 10-16-2022 take 3 capsules by mouth once daily Lactobacillus Combination No.4 (Probiotic) 3 billion cell Capsule Discontinued 3000 MMU CELLS PO DAILY January 08, 2022 12:00am October 16, 2022 3:12pm Start: 01-08-2022 take 3 capsules by m outh once daily Lactobacillus Combination No.4 (Probiotic) 3 billion cell Capsule Active 3000 MMU CELLS PO DAILY January 08, 2022 12:00am melatonin 12 mg oral tablet (20 sources) Start: 10-06-2020 End: 10-16-2022 take 1 tablet by mouth at bedtime Melatonin 12 mg tablet Active 12 mg PO AT BEDTIME October 16, 2022 3:12pm Start: 05-21-2016 End: 10-06-2020 take 6 mg by mouth at bedtime as needed for sleep Melatonin 10 MG capsule Discontinued 6 mg PO AT BEDTIME NEEDED as needed for Sleep May 21, 2016 12:00am October 06, 2020 2:29pm Start: 05-21-2016 End: 10-06-2020 take 6 mg by mouth at bedtime as needed Melatonin Discontinued 6 MG PO AT BEDTIME NEEDED May 21, 2016 12:00am October 06, 2020 2:29pm Multivitamin 1 EACH tablet (2 sources) Start: 05-21-2016 Multivitamin 1 EACH tablet Active 1 NMA PO DAILY May 21, 2016 12:00am Multivitamin preparation (10 sources) Start: 05-21-2016 Multivitamin A ctive 1 EACH PO DAILY May 21, 2016 2:11pm Start: 05-21-2016 Multivitamin A ctive 1 EACH PO DAILY May 20, 2016 11:00pm Start: 05-21-2016 Multivitamin A ctive 1 EACH PO DAILY May 21, 2016 12:00am [place] 7-Rdh-Sje-Fish Oil (10 sources) Start: 04-22-2017 take 1 tablet by mouth once daily [place] 2-Ppf-Eli-Fish Oil Active 1 TABLET PO DAILY April 22, 2017 10:36am Start: 04-22-2017 End: 10-16-2022 take 1 tablet by mouth once daily [place] 3-Jlt-Oul-Fish Oil Discontinued 1 TABLET PO DAILY April 21, 2017 11:00pm October 16, 2022 2:12pm Start: 04-22-2017 End: 10-16-2022 take 1 tablet by mouth once daily [place] 8-Gzm-Zjw-Fish Oil Discontinued 1 TABLET PO DAILY April 22, 2017 12:00am October 16, 2022 3:12pm Start: 04-22-2017 take 1 tablet by darshan th once daily [place] 8-Hpg-Wup-Fish Oil Active 1 TABLET PO DAILY April 22, 2017 12:00am omeprazole 40 mg delayed release oral capsule (20 sources) Proton Pump Inhibitor Start: 10-16-2024 take 1 capsule by mouth once daily Omeprazole 40 mg capsule,delayed release(DR/EC) Active 40 mg PO daily 90 October 16, 2024 1:00am Start: 10-01-2024 End: 10-16-2024 take 1 capsule by mouth twice daily Omeprazole 20 mg capsule,delayed release(DR/EC) Discontinued 20 mg PO TWICE A DAY 90.0 October 01, 2024 1:00am October 16, 2024 9:21am Start: 08-18-2013 End: 10-06-2020 take 1 capsule by mouth once daily Omeprazole 20 MG capsule Discontinued 20 mg PO DAILY May 21, 2016 12:00am October 06, 2020 2:30pm Comment on above: Take 20 mg by mouth once daily. vitamin b12 2 mg oral tablet (20 sources) Vitamin B12 Start: 04-22-2017 take 1 tablet by mouth once daily Cyanocobalamin (Vitamin B-12) 2,000 MCG tablet Active 2000 ug PO DAILY April 22, 2017 12:00am Start: 12-12-2010 End: 08-28-2011 take 1 tablet by mouth once daily VITAMIN B-12 500 MCG TABS One tablet by mouth daily CYANOCOBALAMIN [id number] Sonya M Ozuna Vitamin b12 Acti ve Vonoprazan (Voquezna) 10 mg tablet (2 sources) Start: 10-01-2024 take 1 tablet by mouth once daily Vonoprazan (Voquezna) 10 mg tablet Active 10 mg PO daily October 01, 2024 1:00am Completed/Discontinued Medications Medication Drug Class(es) Dates Sig [...] : 30-Jul-2022 Active Comments: verbally called to RA Shi sheehan 08/01/22 Start: 03-07-2022 Butalbital-APA P-Caffeine 50-325-40 MG Oral Tablet 1 (one) Tablet 1 tab prn migraine for 0 days Quantity: 90 {Tablet} Refills: 3 Ordered: 07-Mar-2022 Fast DO, Francheska A Fast DO, Francheska A Start : 07-Mar-2022 Active Comments: verbally called to RA Shi sheehan 03/07/22 Start: 03-02-2022 Butalbital-APA P-Caffeine 50-325-40 MG Oral Tablet 1 (one) Tablet 1 tab prn migraine for 0 days Quantity: 30 {Tablet} Refills: 3 Ordered: 02-Mar-2022 Fast DO, Francheska A Fast DO, Francheska A Start : 02-Mar-2022 Active Comments: verbally called to RA Shi sheehan 07/12 Start: 07-12-2021 Butalbital-APA P-Caffeine 50-325-40 MG Oral Tablet 1 (one) Tablet 1 tab prn migraine for 0 days Quantity: 30 {Tablet} Refills: 3 Ordered: 25-Oct-2021 Fast DO, Francheska A Fast DO, Francehska A Start : 12-Jul-2021 Active Comments: verbally called to RA - cmanchak 07/12 Comment on above: verbally called to R A - cmanchak 07/12 verbally called to R A - cmanchak 03/07/22 verbally called to R A - cmanchak 08/01/22 acetaminophen 325 mg / oxyCODONE hydrochloride 5 mg oral tablet (12 sources) Opioid Agonist Start: 04-23-2017 End: 10-03-2017 Oxycodone-Acetaminophen 1 TABLET tablet Discontinued 1 - 2 {tbl} PO EVERY 4 HOURS NEEDED as needed for Pain April 23, 2017 12:00am October 03, 2017 4:42pm Start: 04-23-2017 End: 10-03-2017 take 1 tablet by mouth every four hours as needed Oxycodone-Acetaminophen Discontinued 1 - 2 TABLET PO EVERY 4 HOURS NEEDED April 23, 2017 12:00am October 03, 2017 4:42pm amLODIPine 2.5 mg oral tablet (12 sources) Dihydropyridine Calcium Channel Bianca Start: 10-21-2018 End: 12-19-2018 take 1 tablet by mouth once daily Amlodipine 2.5 mg tablet Discontinued 2.5 mg PO DAILY October 21, 2018 1:00am December 19, 2018 11:33am AMLODIPINE BESY-BENAZEPRIL HCL (10 sources) Dihydropyridine Calcium Channel Bianca, Angiotensin Converting Enzyme Inhibitor Start: 12-12-2010 take 1 tablet by mouth once daily LOTREL 5-10 MG CAPS One tablet by mouth daily AMLODIPINE BESY-BENAZEPRIL HCL [id number] Sonya Ozuna Start: 12-12-2010 End: 08-28-2011 take 1 tablet by mouth once daily LOTREL 5-10 MG CAPS One tablet by mouth daily AMLODIPINE BESY-BENAZEPRIL HCL [id number] Yeni Gray RN amoxicillin 500 mg / clavulanate 125 mg oral tablet (12 sources) Penicillin-class Antibacterial Start: 01-10-2022 End: 10-16-2022 Amoxicillin-Pot Clavulanate (Augmentin) 500-125 mg tablet Discontinued 1 {tbl} PO TWICE A DAY January 10, 2022 12:00am October 16, 2022 3:11pm BUTALBITAL-ASPIRIN- CAFFEINE (10 sources) Barbiturate, Nonsteroidal Anti-inflammatory Drug, Central Nervous System Stimulant, Methylxanthine Start: 09-05-2012 FIORINAL 50-325-40 M G CAPS 2-3 X a week for headaches, as needed FSNVMDRUCW-BRCRCGU-XCB FEINE [id number] Petros Valdez MD Start: 12-12-2010 FIORINAL 50-32 5-40 MG CAPS 2-3 X a week for headaches, as needed MFTXUJZYYH-HJVVENP-NXXXDGRI [id number] Sonya Juan Ramon Ozuna aspirin 325 mg / butalbital 50 mg / caffeine 40 mg oral capsule (12 sources) Platelet Aggregation Inhibitor, Barbiturate, Nonsteroidal Anti-inflammatory Drug, Central Nervous System Stimulant, Methylxanthine Start: 05-21-2016 End: 11-07-2021 Fpmrtjpvlw-Fzzpeif-Txdsldkg 1 EACH capsule Discontinued 1 {tbl} PO DAILY NEEDED as needed for Headache May 21, 2016 12:00am November 07, 2021 12:32pm Start: 05-21-2016 End: 11-07-2021 take 1 tablet by mouth once daily as needed Vndagxnemm-Jucobha-Gbwtnuhz Discontinued 1 TABLET PO DAILY NEEDED May 21, 2016 12:00am November 07, 2021 12:32pm atorvastatin 10 mg oral tablet (20 sources) HMG-CoA Reductase Inhibitor Start: 10-03-2017 End: 10-06-2020 take 1 tablet by mouth once daily Atorvastatin 10 mg tablet Discontinued 10 mg PO daily June 10, 2020 2:30pm October 06, 2020 2:28pm Start: 07-06-2015 End: 10-03-2017 take 1 tablet by mouth once daily Atorvastatin 20 MG tablet Discontinued 20 mg PO DAILY May 21, 2016 12:00am October 03, 2017 4:41pm Start: 07-06-2015 take 0.5 tablet by m outh once daily in the evening ATORVASTATIN CALCIUM 40 MG TABS 1/2 tablet by mouth every evening (pt cut self down 3 mos ago) ATORVASTATIN CALCIUM [id number] Petros Valdez MD Start: 07-06-2015 ATORVASTATIN C ALCIUM 40 MG TABS One tablet by mouth ever evening ATORVASTATIN CALCIUM [id number] Petros Valdez MD Comment on above: Take 20 mg by mouth once daily. cholecalciferol 0.125 mg oral tablet (2 sources) Vitamin D Start: 2 take 1 tablet by mouth once daily Cholecalciferol, Vitamin D3, 5,000 unit Tab Take 1 tablet by mouth once daily. 0 02/19/2012 Active Comment on above: Take 1 tablet by [facility] once daily. dexlansoprazole 60 mg delayed release oral capsule (20 sources) Proton Pump Inhibitor Start: 3 take 1 capsule by mouth once daily Dexilant 60 mg oral capsule,delayed release,biphasic 1 (one) Capsule daily for 90 days Quantity: 90 {Capsule} Refills: 3 Ordered: 02-Jul-2023 Fast DO, Francheska A Fast DO, Francheska A Start : 02-Jul-2023 Active Start: 12-07-2022 take 1 capsule by [facility] once daily Dexilant 60 mg oral capsule,delayed release,biphasic 1 (one) Capsule daily for 0 days Quantity: 30 {Capsule} Refills: 6 Ordered: 07-Dec-2022 Fast DO, Francheska A Fast DO, Francheska A Start : 07-Dec-2022 Active Start: 11-10-2021 take 1 capsule by [facility] once daily Dexilant 60 MG [...] Start: 05-16-2021 take 1 capsule by mo [facility] once daily Dexilant 60 MG Oral Capsule Delayed Release 1 (one) Capsule daily for 0 days Quantity: 30 {Capsule} Refills: 0 Ordered: 16-May-2021 Fast DO, Francheska A Fast DO, Francheska A Start : 16-May-2021 Active Start: 10-06-2020 End: 11-07-2021 take 1 capsule by mouth once daily Dexlansoprazole (Dexilant) 30 mg capsule,biphase delayed releas Discontinued 30 mg PO DAILY October 06, 2020 1:00am November 07, 2021 12:33pm Start: 12-12-2010 take 1 tablet by [facility] once daily DEXILANT 30 MG CPDR One tablet by mouth daily DEXLANSOPRAZOLE [id number] Sonya Juan Ramon Ozuna diazePAM 5 mg oral tablet (20 sources) Benzodiazepine Start: 10-16-2022 End: 08-05-2023 Diazepam 5 mg tablet Discontinued 5 mg PO NEEDED as needed for Stomach Upset October 16, 2022 1:00am August 05, 2023 4:03pm Start: 07-30-2022 take 1 tablet by [facility] once daily as needed Valium 5 MG Oral Tablet 1 (one) Tablet daily as needed for 0 days Quantity: 30 {Tablet} Refills: 0 Ordered: 30-Jul-2022 Fast DO, Francheska A Fast DO, Francheska A Start : 30-Jul-2022 Active Comments: [facility] Start: 07-30-2022 take [id number] 5714 tablet by mouth once daily as needed Valium 5 MG Oral Tablet 1 (one) Tablet daily as needed for 0 days Quantity: 30 {Tablet} Refills: 0 Ordered: 30-Jul-2022 Fast DO, Francheska A Fast DO, Francheska A Start : 30-Jul-2022 Active Comments: Med[facility] taken as [facility]. [facility] Start: 03-14-2022 take [id number] 5714 tablet by mouth once daily as needed Valium 5 MG Oral Tablet 1 (one) Tablet daily as needed for 0 days Quantity: 30 {Tablet} Refills: 0 Ordered: 14-Mar-2022 Fast DO, Francheska A Fast DO, Francheska A Start : 14-Mar-2022 Active Comments: Medication taken as needed. verbally called to [facility] 12/04 Start: 01-24-2022 take 0.1646451709414 5714 tablet by mouth once daily as needed Valium 5 MG Oral Tablet 1 (one) Tablet daily as needed for 0 days Quantity: 30 {Tablet} Refills: 0 Ordered: 24-Jan-2022 Fast DO, Francheska A Fast DO, Francheska A Start : 24-Jan-2022 Active Comments: Medication taken as needed. verbally called to [facility] 12/04 Start: 12-04-2021 take [id number] 5714 tablet by mouth once daily as needed Valium 5 MG Oral Tablet 1 (one) Tablet daily as needed for 0 days Quantity: 30 {Tablet} Refills: 0 Ordered: 04-Dec-2021 Fast DO, Francheska A Fast DO, Francheska A Start : 04-Dec-2021 Active Comments: Medication taken as needed. verbally called to [facility] 12/04 Start: 05-21-2016 End: 11-07-2021 take [id number] tablets by mouth once daily as needed Valium 5 MG Oral Tablet 1 (one) Tablet daily as needed for 0 days Quantity: 30 {Tablet} Refills: 0 Ordered: 16-Oct-2021 Fast DO, Francheska A Fast DO, Francheska A Start : 16-Oct-2021 Active Comments: Medication taken as needed. verbally called to [facility] 07/12 Start: 05-21-2016 End: 11-07-2021 Diazepam 5 MG tablet Discont inued 0.5 - 1 {tbl} PO DAILY NEEDED as needed for Anxiety May 21, 2016 12:00am November 07, 2021 12:33pm Start: 12-12-2010 End: 11-07-2021 take 1 tablet by mouth once daily as needed Diazepam Discontinued 0.5 - 1 TABLET PO DAILY NEEDED May 21, 2016 12:00am November 07, 2021 12:33pm Comment on above: Medication taken as needed. verbally called to [facility] 07/12 Medication taken as needed. verbally called to [facility] 12/04 Medication taken as needed. verbally called to [facility] 08/01/22 Medication taken as needed. Medication taken as needed. verbally called to [facility] 01/02/23 Medication taken as needed. [facility] doxylamine succinate 25 mg oral tablet (12 sources) Start: 1 End: 2 Doxylamine Succinate (Unisom (Doxylamine)) 25 mg tablet Discontinued 12.5 mg PO AT BEDTIME as needed October 06, 2020 1:00am November 07, 2021 12:33pm ELASTIC BANDAGES & SUPPORTS (4 sources) Start: 7 HERNIA BELT DOUBLE LARGE MISC Per package [employer]LAST[employer]AGES [employer] SUPPORTS [id number] Khadijah Wilson PA-C esomeprazole 20 mg injection (5 sources) Proton Pump Inhibitor Start: 2 take 1 tablet by mouth once daily NEXIUM 20 MG CPDR One tablet by mouth daily ESOMEPRAZOLE MAGNESIUM [id number] Petros Valdez MD famotidine 40 mg oral tablet (20 sources) Histamine-2 Receptor Antagonist Start: 2 take 1 tablet by mouth once daily Famotidine 40 MG Oral Tablet 1 (one) Tablet qd for 0 days Quantity: 30 {Tablet} Refills: 0 Ordered: 24-Jan-2022 Naida Montenegro CMA Start : 25-Oct-2021 Active Start: 10-06-2020 End: 11-07-2021 take 1 tablet by mouth once daily as needed Famotidine 20 mg tablet Discontinued 20 mg PO DAILY as needed October 06, 2020 1:00am November 07, 2021 12:34pm take 2 tablets by [facility] once daily in the evening famotidine (PEPCID) 20 mg tablet Take 40 mg by mouth DAILY AT 6 PM. 0 Active Comment on above: Take 40 mg by mouth DAILY AT 6 PM. fish oil (10 sources) Start: 12-12-2010 End: 08-28-2011 take 1 tablet by mouth once daily FISH OIL CAPS One tablet by mouth daily OMEGA-3 FATTY ACIDS CAPS [id number] Yeni Gray RN Start: 12-12-2010 take 1 tablet by darshan th once daily FISH OIL CAPS One tablet by mouth daily OMEGA-3 FATTY ACIDS CAPS [id number] Snoya Ozuna Fluad 65yr up(PF)45 mcg(15 mcgx3)/0.5 mL intramuscular syringe (flu (1 source) Start: 10-04-2017 End: 10-04-2017 inject 1 mL by intramuscular injection once Fluad 65yr up(PF)45 mcg(15 mcgx3)/0.5 mL intramuscular syringe (flu Discontinued 0.5 ML IM ONCE 0.5 October 04, 2017 2:34pm October 04, 2017 2:39pm lansoprazole 30 mg disintegrating oral tablet (5 sources) Proton Pump Inhibitor Start: 08-18-2013 take 1 tablet by mouth once daily PREVACID 30 MG CPDR One tablet by mouth daily LANSOPRAZOLE [id number] Petros Valdez MD lisinopril 5 mg oral tablet (20 sources) Angiotensin Converting Enzyme Inhibitor Start: 12-19-2018 End: 10-10-2021 take 1 tablet by mouth once daily Lisinopril 2.5 mg tablet Discontinued 2.5 mg PO DAILY December 12, 2020 4:27pm October 10, 2021 2:31pm Start: 08-18-2013 End: 10-21-2018 take 1 tablet by mouth once daily Lisinopril 2.5 mg tablet Discontinued 2.5 mg PO DAILY July 17, 2018 6:05pm October 21, 2018 12:29pm Start: 08-18-2013 End: 09-28-2024 take 1 tablet by mouth once daily Lisinopril 5 mg tablet Discontinued 5 mg PO DAILY September 25, 2023 11:00am September 28, 2024 9:46am Start: 07-14-2012 take 1 tablet by darshan th once daily LISINOPRIL 10 MG TABS One tablet by mouth daily LISINOPRIL [id number] Petros Valdez MD Start: 08-28-2011 take 0.5 tablet by m [facility] once daily LISINOPRIL 20 MG TABS One-half tablet by mouth daily LISINOPRIL [id number] Yeni Gray RN Start: 05-29-2011 take 1 tablet by darshan th once daily LISINOPRIL 20 MG TABS One tablet by mouth daily LISINOPRIL [id number] Sonya Ozuna Comment on above: Take 5 [...] state too many to list MULTIPLE VITAMIN [id number] Sonya Ozuna Multivitamin ORAL capsule (2 sources) Start: 11-24-2010 take 1 capsule by mouth once daily Multivitamin ORAL capsule Take 1 capsule by mouth once daily. 0 11/24/2010 Active Comment on above: Take 1 capsule by mo [facility] once daily. [place] 0-Bpd-Cet-Fish Oil 1 EACH capsule,delayed release(DR/EC) (2 sources) Start: 04-22-2017 End: 10-16-2022 take 1 capsule by mouth once daily [place] 7-Wgd-Ehg-Fish Oil 1 EACH capsule,delayed release(DR/EC) Discontinued 1 {tbl} PO DAILY April 22, 2017 12:00am October 16, 2022 3:12pm OMEGA-3 FATTY ACIDS (5 sources) Start: 04-15-2017 EQL OMEGA 3 FI SH OIL 1200 MG CPDR once daily OMEGA-3 FATTY ACIDS [id number] Mal Joseph MD red yeast rice 600 mg oral capsule (12 sources) Start: 05-18-2021 End: 10-10-2021 take 1 capsule by mouth once daily Red Yeast Rice 600 mg capsule Discontinued 600 mg PO DAILY May 18, 2021 12:00am October 10, 2021 2:07pm give with meal/snack rosuvastatin calcium 40 mg oral tablet (20 [...] Francheska A Start : 16-Nov-2022 Active Start: 10-16-2022 take 2 tablets by mo [facility] once daily Rosuvastatin 10 mg tablet Active 20 mg PO DAILY October 16, 2022 1:00am Start: 10-16-2022 take 20 mg by mouth once daily Rosuvastatin Active 20 MG PO DAILY October 16, 2022 1:00am Start: 10-16-2022 take 10 mg by mouth once daily Rosuvastatin Active 10 MG PO DAILY October 16, 2022 1:00am Start: 08-13-2022 take 1 tablet by darshan [...] Francheska A Start : 30-Jul-2022 Active Start: 10-10-2021 End: 10-16-2022 take 1 tablet by mouth once daily Rosuvastatin 5 mg tablet Discontinued 5 mg PO DAILY October 10, 2021 1:00am October 16, 2022 3:13pm Start: 07-24-2021 take 1 tablet by darshan [...] tablet by mouth every evening ROSUVASTATIN CALCIUM [id number] Regine Bonilla RN Comment on above: Mail order. s-adenosylmethionine 400 mg oral tablet (20 sources) Start: 04-22-2017 End: 10-10-2021 take 800 mg by mouth once daily S-Adenosylmethionine Active 800 MG PO DAILY October 10, 2021 2:08pm Start: 08-28-2011 End: 10-10-2021 take 1 tablet by mouth once daily S-Adenosylmethionine 400 MG tablet Discontinued 800 mg PO DAILY April 22, 2017 12:00am October 10, 2021 2:10pm Start: 11-24-2010 take 1 tablet by darshan th once daily S-Adenosylmethionine (JORDYN-E, ENTERIC COATED,) 400 mg ORAL TbEC Take 1 tablet by mouth once daily. 0 11/24/2010 Active Comment on above: Take 1 tablet by darshan th once daily. sucralfate 100 mg/ml oral suspension (11 sources) Aluminum Complex Start: 2021 End: 2022 Sucralfate (Carafate) 100 mg/mL suspension Discontinued 10 mL PO before meals 999January 26, 2022 12:00am October 16, 2022 3:13pm take 10mL three times a day one hour before a meal and two hours away from other medications for thirty days. sulfamethoxazole 800 mg / trimethoprim 160 mg oral tablet (2 sources) Dihydrofolate Reductase Inhibitor Antibacterial, Sulfonamide Antimicrobial Start: 2023 End: 2024 Sulfamethoxazole-Trim ethoprim (Bactrim Ds) 800-160 mg tablet Discontinued 1 {tbl} PO DAILY 06 18May 10, 2024 12:00am January 26, 2025 1:03pm tadalafil 5 mg oral tablet (10 sources) Phosphodiesterase 5 Inhibitor Start: 2022 take 1 tablet by mouth once daily tadalafiL 5 mg oral tablet 1 (one) tablet qd as directed for 0 days Quantity: 30 {Tablet} Refills: 3 Ordered: 25-Feb-2023 Naida Montenegro CMA Start : 25-Feb-2023 Active tamsulosin hydrochloride 0.4 mg oral capsule (12 sources) alpha-Adrenergic Bianca Start: 2016 End: 2017 take 1 capsule by mouth once daily Tamsulosin 0.4 MG capsule Discontinued 0.4 mg PO DAILY April 27, 2017 12:00am October 03, 2017 4:42pm CHOLECALCIFEROL (10 sources) Start: 2010 take 1 tablet by mouth once daily VITAMIN D 1000 UNIT TABS One tablet by mouth daily CHOLECALCIFEROL [id number] Sonya Ozuna Start: 12-12-2010 End: 08-28-2011 take 1 tablet by mouth once daily VITAMIN D 1000 UNIT TABS One tablet by mouth daily CHOLECALCIFEROL [id number] Yeni Gray RN vitamin e 400 unt oral capsule (10 sources) Start: 12-12-2010 End: 08-28-2011 take 1 tablet by mouth once daily VITAMIN E 400 UNIT CAPS One tablet by mouth daily VITAMIN E [id number] Sonya Ozuna Problems Active Problems Problem Classification [...] these co ntinue to monitor doing well Cardiac dysrhythmias (17 sources) Palpitations; Translations: [Palpitations] Onset: 12-12-2010 12-12-2010 Episodic Complications of surgical procedures or medical care (2 sources) Postoperative hypothyroidism; Translations: [Postprocedural hypothyroidism] Onset: 02-06-2011 02-06-2011 Chronic Coronary atherosclerosis and other heart disease (20 sources) Coronary arteriosclerosis; Translations: [Coronary artery disease] Onset: 07-15-2024 02-25-2023 Chronic Comment on above: risk factor modifica tion we discussed needs ldl lower risk factor modifica tion Diseases of white blood cells (2 sources) Leukocytosis; Translations: [Elevated white blood cell count, unspecified] 05-18-2024 Chronic Disorders of lipid metabolism (20 sources) Hyperlipidemia; [...] hypertension (20 sources) Hypertensive disorder; Translations: [Hypertension] Onset: 12-30-2024 07-11-2021 Chronic Comment on above: good control on high er dose good control chronic stable-domingo nue present regimen CONTROLLED WITH MEDS Gastritis and duodenitis (13 sources) Gastritis; Translations: [Gastritis, unspecified, without bleeding] Episodic Genitourinary symptoms and ill-defined conditions (2 sources) Dysuria; Translations: [Dysuria] 05-18-2024 Episodic Headache; including migraine (20 sources) Chronic tension-type headache; Translations: [Chronic tension headaches] 07-12-2021 Chronic Comment on above: chronic stable-domingo nue present regimen Heart valve disorders (17 sources) Mitral valve disorder; 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] Onset: 12-12-2010 12-12-2010 Chronic Hyperplasia of prostate (20 sources) Benign prostatic hyperplasia; Translations: [BPH (benign prostatic hyperplasia)] 07-11-2021 Chronic Comment on above: chronic stable-domingo nue present regimen Immunizations and screening for infectious disease (20 sources) Patient encounter status; Translations: [Encounter for hepatitis C virus screening test for high risk patient] Onset: 11-28-2017 Resolved: 06-03-2023 07-11-2021 Episodic Malaise and fatigue (12 sources) Fatigue; Translations: [Other fatigue] 10-09-2021 Episodic Nonmalignant breast conditions (20 sources) Breast [...] da te Other and unspecified benign neoplasm (12 sources) History of polyp of colon; Translations: [Personal history of colonic polyps] 10-11-2022 Episodic Other and unspecified benign neoplasm (3 sources) Personal history of colonic polyps; Translations: [Personal history of colonic polyps] Episodic Other and unspecified benign neoplasm (20 sources) Dysplastic nevus of skin; Translations: [Atypical nevus] 07-30-2022 Episodic Comment on above: he will followup [facility] milieu counselor Other circulatory disease (12 sources) Raynaud's disease; Translations: [Raynaud's syndrome without gangrene] 10-08-2019 Chronic Other hematologic conditions (20 sources) Macrocytosis; Translations: [...] contractions) Unclassified (17 sources) BMI 21.0-21.9, adult Urinary tract infections (2 sources) Acute urinary tract infection; Translations: [Urinary tract infection, site not specified] 05-18-2024 Episodic Past or Other Problems Problem Classification Problem Date Documented Date Episodic/Chronic Abdominal hernia (5 sources) Bilateral inguinal hernia; Translations: [Bilateral inguinal hernia, without obstruction or gangrene, not specified as recurrent] Onset: 04-15-2017 04-15-2017 Episodic Lymphadenitis (3 sources) Enlarged lymph nodes, unspecified; Translations: [ENLARGED LYMPH NODES UNS] Onset: 04-09-2017 Episodic Other aftercare (5 sources) Other long term acute care registered nurse (current) drug therapy; Translations: [Other senior living (current) drug therapy] Onset: 12-12-2010 12-12-2010 Episodic Other circulatory disease (5 sources) Carotid bruit; Translations: [Other specified symptoms and signs involving the circulatory and respiratory systems] Onset: 12-12-2010 12-12-2010 Episodic Other disorders of stomach and duodenum (2 sources) Nonulcer dyspepsia; Translations: [Functional dyspepsia] Onset: 11-28-2017 11-28-2017 Episodic Other male genital disorders (1 source) Disorder of male genital organs, unspecified; Translations: [Disorder of male genital organs, unspecified] Onset: 06-01-2024 Episodic Other screening for suspected conditions (not mental disorders or infectious disease) (20 sources) Electrocardiogram abnormal; Translations: [Abnormal electrocardiogram [ECG] [EKG]] Onset: 04-24-2024 11-30-2022 Episodic Comment on above: nonspecific st derpe ssion, LVH per ekg 09/25/2016 Other skin disorders (1 source) Rash and other nonspecific skin eruption; Translations: [Rash and other nonspecific skin eruption] Onset: 03-18-2024 Episodic Residual codes; unclassified (2 sources) Family [...] Test Name Value Interpretation Reference Range Facility MR/Augie 02-25-2025 /[facility] Medical Records Department [address] [place] [place] [address] PAT - Anesthesia 02/25/25 1318 MR#: [id number] Acct: [id number] Name: JUNG ABURTO Rep #: [id number] : 1945 79 From: Miguelito Streeter MD PCP: Dr. 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 When Was Last Pacemaker Check QUESTION #4 FULL TEXT: You/Your Family Experience fever (hyperthermia) with Anesthesia Last Oral Intake Last Oral intake: Last Oral Intake NPO since Meds taken in AM with sips of water? Meds patient instructed to take am of surgery PONV PONV - maintenance data analyst: PONV - maintenance data analyst Female No 02/25/25 12:56 HX of Motion Sickness No 02/25/25 12:56 HX of N/V After Surgery No 02/25/25 12:56 Non-Smoker Yes 02/25/25 12:56 Duration of Surgery greater No 02/25/25 12:56 than 60 minutes Number of Risk Factors 1 02/25/25 12:56 PONV Score Low Risk 02/25/25 12:56 Height Weight Height Weight: Anesthesia: Height Weight Height 6 ft 05/10/24 10:25 Respiratory Assessment Respiratory Assessment - maintenance data analyst: Respiratory Tract Infection Hx - maintenance data analyst Hx Respiratory Tract Infection No 02/25/25 12:56 STOP Sleep Apnea STOP Sleep Apnea - maintenance data analyst: STOP Sleep Apnea - maintenance data analyst Hx Hypertension Yes: CONTROLLED WITH 02/25/25 12:56 Hx Sleep Apnea No 02/25/25 12:56 CPAP BIPAP Do you snore loudly (louder No 02/25/25 12:56 than talking or can be heard Do you often feel tired/ No 02/25/25 12:56 fatigued/ sleepy during daytime? Has anyone observed you stop No 02/25/25 12:56 breathing during sleep? STOP Results Negative 02/25/25 12:56 QUESTION #5 FULL TEXT : Do you snore loudly (louder than talking or can be heard through closed doors)? 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 Specify any problems Hx of Preganancy in last 3 N/A 02/25/25 12:56 Months Nurse Filling Out Transfusion NBUCHER 02/25/25 12:56 Questions: Date: 02/25/25 02/25/25 12:56 Time: 12:56 02/25/25 12:56 Patient unable to answer at this time (ie. confused, unrespo /Reproduction History /Reproductive History - maintenance data analyst: /Reproductive Hx- maintenance data analyst Hx Now No 02/25/25 12:56 Gestational Age (in weeks): EDC: Hx Hx Para Hx Section SAB No 02/25/25 12:56 [facility] Medical History (Updated 02/25/25 @ 12:59 by Roz Del Toro) Arteriosclerosis of coronary artery Normal stress echocardiogram Gastritis Onofre esophagus Wears glasses Alcohol use Arthritis Back pain Hepatitis High cholesterol Gastric reflux Non-smoker History of edema History of echocardiogram History of stress test Cardiology follow-up encounter Hx of colonic polyp GERD (gastroesophageal reflux disease) Mitral valve annular calcification Chronic renal insufficiency Essential (primary) hypertension Raynaud disease Hyperlipidemia Palpitations Home Medications ???Medication ???Instructions ???Recorded ???Last Taken ???Type coenzyme Q10 30 mg capsule 30 mg PO DAILY 05/21/16 Unknown Hi story multivitamin 1 ea PO DAILY 05/21/16 Unknown His tory cyanocobalamin (vitamin B-12) 2,000 mcg PO DAILY 04/22/17 Unknow n History 2,000 mcg tablet ascorbic acid (vitamin C) 1,000 mg 1 g PO QDAY 09/25/17 Unknown His tory tablet (more content not included)... Normal [facility] Cardiology Visit Reporton Cardiology Visit Report [facility] [address] [place] [address] OFFICE VISIT Date of Service: 01/26/25 MR#: [id number] Acct: [id number] Name: JUNG ABURTO Rep #: [id number] : 1945 Provider: Dr. Petros Valdez MD Age/Sex: 79/M Location: [facility] Status: Signed HPI HPI History of Present Illness Details: JUNG ABURTO, is a 79 M who presents today for a cardiovascular outpatient follow-up. He is a gentleman with no obstructive coronary disease, hypertension, hyperlipidemia, and probable raynauds phenomenon. He returns for follow-up visit. He was noted to have an elevated calcium score and underwent a cardiac catheterization which demonstrated no evidence of obstructive coronary disease. This was in 2022. He has been managed with risk factor modification. His major complaint at this time is that he is noted fatigue. He denies chest, arm, jaw, or neck [...] blood in stool, or epistaxis. He denies myalgia.. His exercise tolerance is stable. Me that his lipid profile was excellent and he is due to have one with you soon. His statin was increased. Intake Vital Signs 12/03/23 13:04 05/10/24 10:25 01/26/25 12:59 Height 6 ft 6 ft 6 ft Weight: 170 lb BMI 23.0 BP 103/67 Blood Pressure Location Lt brachial Position Sitting Respiration 16 Pulse 55 L Pulse Source Monitor Intake Visit Reasons: 1 Y [employer] Aide Required: No Accompanied by: Self Is patient in pain?: No Allergies No Known Allergies Allergy (Verified 01/26/25 13:02) Medications ???Medication ???Instructions ???Recorded ???Confirmed ???Type coenzyme Q10 30 mg capsule 30 mg PO DAILY 05/21/16 01/26/25 H istory multivitamin 1 ea PO DAILY 05/21/16 01/26/25 Hi story cyanocobalamin (vitamin B-12) 2,000 mcg PO DAILY 04/22/17 History 2,000 mcg tablet ascorbic acid (vitamin C) 1,000 mg 1 g PO QDAY 09/25/17 01/26/25 Hi story tablet s-adenosylmethionine 400 mg tablet 800 mg PO DAILY 10/10/21 5 History melatonin 12 mg tablet 12 mg PO QHS 10/16/22 01/26/25 His tory rosuvastatin 10 mg tablet 20 mg PO DAILY 10/16/22 01/26/25 H istory aspirin-sod bicarb-citric acid 325 1 tab PO PRN PRN BLOATING 01/26/25 History mg-1,916 mg-1,000 mg efferves tab (Maryjane-Pullman Original) lisinopril 5 mg tablet 5 mg PO DAILY #90 tabs 09/28/24 Rx vonoprazan 10 mg tablet (Voquezna) 10 mg PO QDAY 10/01/24 01/26/25 History omeprazole 40 mg capsule,delayed 40 mg PO QDAY #90 caps 10/16/24 Rx release Have you fallen in the past year?: No Nurse's Note: pt states no changes in meds PFSH Medical History Normal stress echocardiogram Gastritis Onofre esophagus Wears glasses Alcohol use Arthritis Back pain Hepatitis High cholesterol Gastric reflux Non-smoker History of edema History of echocardiogram History of stress test Cardiology follow-up encounter Hx of colonic polyp GERD (gastroesophageal reflux disease) Mitral valve annular calcification Chronic renal insufficiency Essential (primary) hypertension Raynaud disease Hyperlipidemia Palpitations Surgical History History of cardiac catheterization History of esophagogastroduodenosc opy (EGD) Hx of foot surgery Hx of colonoscopy Hx of hernia repair Hx of transurethral resection of prostate Hx of appendectomy History of hydrocelectomy Family History Father Cancer Colon cancer Mother , age 72 CAD (coronary artery disease) Hypertension Breast cancer Social History Smoking Status: Never smoker alcohol intake: current alcohol intake frequency: 0-2 drinks per day substance use type: does not use caffeine: Yes Type: coffee Number of servings: 4 ROS Const Const: Positive for fatigue (less energy); Negative for weakness, headache(s), daytime sleepiness or difficulty sleeping ENT ENT: Negative for headache(s), dizziness or Nosebleed/epistaxis Cardio Chest Pain: No Palpitations: No Edema: Bilateral (ankles at times ) Resp Respiratory: Negative for SOB with activity, SOB at rest, SOB orthopnea SOB lying down or Cough GI GI: Negative nausea, vomiting or heartburn Neuro Neuro: Negative for diz (more content not included)... Normal [facility] Absolute lymphocyte countOrd ered By: [facility] on 12-23-2024 Lymphocytes Auto (Unsp spec) [#/Vol] 1.36 10*3/uL 0.83-4.51 [facility] Absolute neutrophil countOrd ered By: [facility] on 12-23-2024 Neutrophils (Bld) [#/Vol] 3.3 10*3/uL 2.0-7.7 [facility] Anion gap in Serum or Plasma Ordered By: Francheska on 12-23-2024 Anion gap [Moles/Vol] 11 mmol/L 5-15 [facility] Automated lymphocyte count a s percentage of total leukocytesOrdered By: Francheska on 12-23-2024 Lymphocytes/100 WBC Auto (Unsp spec) 24.8 % 19-41 [facility] BUN/creatinine ratioOrdered By: Francheska on 12-23-2024 Urea nitrogen/Creatinine [Mass ratio] 22.0 mg/mg High 10-20 [facility] Basophil percentageOrdered B y: Francheska on 12-23-2024 Basophils/100 WBC (Bld) 0.9 % 0-1 [facility] Bilirubin, totalOrdered By: Francheska Alonzo on 12-23-2024 Bilirubin [Mass/Vol] 0.36 mg/dL 0.00-1.30 [facility] CBC W/Diff, Automatedon 12-08 Absolute Lymph 1.36 X10 3/uL Normal 0.83-4.51 [facility] Comment on above: Performed By: #### L 500.4050, L506.1001, L100.0100, L506.0200, L500.4100, L503.0106 #### [facility] [address] [place], [address] Absolute Neut 3.3 X10 3/uL Normal 2.0-7.7 [facility] Comment on above: Performed By: #### L 500.4050, L506.1001, L100.0100, L506.0200, L500.4100, L503.0106 #### [facility] [address] [place], [address] Basophils/100 WBC (Bld) 0.9 % Normal 0-1 [facility] Comment on above: Performed By: #### L 500.4050, L506.1001, L100.0100, L506.0200, L500.4100, L503.0106 #### [facility] [address] [place], [address] Eosinophils/100 WBC (Bld) 6.6 % High 0-5 [facility] Comment on above: Performed By: #### L 500.4050, L506.1001, L100.0100, L506.0200, L500.4100, L503.0106 #### [facility] [address] [place], [address] Erythrocyte distribution width (RBC) [Ratio] 12.6 % Normal 11.6-14.6 [facility] Comment on above: Performed By: #### L 500.4050, L506.1001, L100.0100, L506.0200, L500.4100, L503.0106 #### [facility] [address] [place], [address] Hematocrit (Bld) [Volume fraction] 42.5 % Normal 40-54 [facility] Comment on above: Performed By: #### L 500.4050, L506.1001, L100.0100, L506.0200, L500.4100, L503.0106 #### [facility] [address] [place], [address] Hemoglobin (Bld) [Mass/Vol] 15.1 g/dL Normal 13.0-16.5 [facility] Comment on above: Performed By: #### L 500.4050, L506.1001, L100.0100, L506.0200, L500.4100, L503.0106 #### [facility] [address] [place], [address] IG% 0.200 Normal 0.0-0.9 [facility] Comment on above: Result Comment: IG% - Immature Granulocytes (promyelocytes, myelocytes and metamyelocytes) > 1% indicates that a LEFT SHIFT is Present. Performed By: #### L 500.4050, L506.1001, L100.0100, L506.0200, L500.4100, L503.0106 #### [facility] [address] [place], [address] Lymphocytes/100 WBC (Bld) 24.8 % Normal 19-41 [facility] Comment on above: Performed By: #### L 500.4050, L506.1001, L100.0100, L506.0200, L500.4100, L503.0106 #### [facility] [address] [place], [address] MCH (RBC) [Entitic mass] 34.3 pg High 27.0-32.0 [facility] Comment on above: Performed By: #### L 500.4050, L506.1001, L100.0100, L506.0200, L500.4100, L503.0106 #### [facility] [address] [place], [address] MCHC (RBC) [Mass/Vol] 35.5 g/dL Normal 32-36 [facility] Comment on above: Performed By: #### L 500.4050, L506.1001, L100.0100, L506.0200, L500.4100, L503.0106 #### [facility] [address] [place], [address] MCV (RBC) [Entitic vol] 96.6 fL High 80-94 [facility] Comment on above: Performed By: #### L 500.4050, L506.1001, L100.0100, L506.0200, L500.4100, L503.0106 #### [facility] [address] [place], [address] Monocytes/100 WBC (Bld) 8.4 % Normal 0-10 [facility] Comment on above: Performed By: #### L 500.4050, L506.1001, L100.0100, L506.0200, L500.4100, L503.0106 #### [facility] [address] [place], [address] Neutrophils/100 WBC (Bld) 59.1 % Normal 47-70 [facility] Comment on above: Performed By: #### L 500.4050, L506.1001, L100.0100, L506.0200, L500.4100, L503.0106 #### [facility] [address] [place], [address] Nucleated RBC (Bld) [#/Vol] 0 10*3/uL Normal 0-5 [facility] Comment on above: Performed By: #### L 500.4050, L506.1001, L100.0100, L506.0200, L500.4100, L503.0106 #### [facility] [address] [place], [address] Platelet mean volume (Bld) [Entitic vol] 11.3 fL Normal 6.2-12.0 [facility] Comment on above: Performed By: #### L 500.4050, L506.1001, L100.0100, L506.0200, L500.4100, L503.0106 #### [facility] [address] [place], [address] Platelets (Bld) [#/Vol] 188 10*3/uL Normal 150-450 [facility] Comment on above: Performed By: #### L 500.4050, L506.1001, L100.0100, L506.0200, L500.4100, L503.0106 #### [facility] [address] [place], [address] RBC (Bld) [#/Vol] 4.40 10*6/uL Low 4.6-6.2 [facility] Comment on above: Performed By: #### L 500.4050, L506.1001, L100.0100, L506.0200, L500.4100, L503.0106 #### [facility] [address] [place], [address] RDW SD 45.0 fl High 35.1-43.9 [facility] Comment on above: Performed By: #### L 500.4050, L506.1001, L100.0100, L506.0200, L500.4100, L503.0106 #### [facility] [address] [place], [address] WBC (Bld) [#/Vol] 5.5 10*3/uL Normal 4.4-11.0 [facility] Comment on above: Performed By: #### L 500.4050, L506.1001, L100.0100, L506.0200, L500.4100, L503.0106 #### [facility] [address] [place], [place], [id number] Calculated very low density lipoprotein (VLDL) cholesterol measurementOrdered By: Francheska Fast on 12-23-2024 Calculated very low density lipoprotein (VLDL) cholesterol measurement 19 mg/dL 5-40 [facility] VLDL Cholesterol 19 mg/dL 5-40 [facility] Carbon dioxide, total [Moles /volume] in Central venous bloodOrdered By: Francheska Fast on 12-23-2024 CO2 [Moles/Vol] 22.7 mmol/L 21.0-32.0 [facility] Chloride assayOrdered By: De bra Fast on 12-23-2024 Chloride [Moles/Vol] 105 mmol/L 98-108 [facility] Comprehensive Metabolic Prof ilon 12-23-2024 Albumin [Mass/Vol] 4.4 g/dL Normal 3.4-4.8 [facility] Comment on above: Performed By: #### L 500.4050, L506.1001, L100.0100, L506.0200, L500.4100, L503.0106 ####[facility] [address] [place], [place], [id number] Albumin/Globulin [Mass ratio] 1.7 {ratio} Normal 0.9-2.4 [facility] Comment on above: Performed By: #### L 500.4050, L506.1001, L100.0100, L506.0200, L500.4100, L503.0106 ####[facility] [address] [place], [address] ALK PHOS 82 U/L Normal 40-129 [facility] Comment on above: Performed By: #### L 500.4050, L506.1001, L100.0100, L506.0200, L500.4100, L503.0106 ####[facility] [address] [place], [address] ALT [Catalytic activity/Vol] 19 U/L Normal <=46 [facility] Comment on above: Performed By: #### L 500.4050, L506.1001, L100.0100, L506.0200, L500.4100, L503.0106 ####[facility] [address] [place], [address] AST [Catalytic activity/Vol] 25 U/L Normal <=37 [facility] Comment on above: Performed By: #### L 500.4050, L506.1001, L100.0100, L506.0200, L500.4100, L503.0106 ####[facility] [address] [place], [address] Bilirubin [Mass/Vol] 0.36 mg/dL Normal 0.00-1.30 [facility] Comment on above: Performed By: #### L 500.4050, L506.1001, L100.0100, L506.0200, L500.4100, L503.0106 ####[facility] [address] [place], [address] BUN/CRE 22.0 RATIO High 10-20 [facility] Comment on above: Performed By: #### L 500.4050, L506.1001, L100.0100, L506.0200, L500.4100, L503.0106 ####[facility] [address] [place], [address] Calcium [Mass/Vol] 9.5 mg/dL Normal 7.6-11.0 [facility] Comment on above: Performed By: #### L 500.4050, L506.1001, L100.0100, L506.0200, L500.4100, L503.0106 ####[facility] [address] [place], [address] Chloride [Moles/Vol] 105 mmol/L Normal 98-108 [facility] Comment on above: Performed By: #### L 500.4050, L506.1001, L100.0100, L506.0200, L500.4100, L503.0106 ####[facility] [address] [place], [address] CO2 [Moles/Vol] 22.7 mmol/L Normal 21.0-32.0 [facility] Comment on above: Performed By: #### L 500.4050, L506.1001, L100.0100, L506.0200, L500.4100, L503.0106 ####[facility] [address] [place], [address] Creatinine [Mass/Vol] 0.93 mg/dL Normal 0.70-1.20 [facility] Comment on above: Performed By: #### L 500.4050, L506.1001, L100.0100, L506.0200, L500.4100, L503.0106 ####[facility] [address] [place], [address] GAP 11 Normal 5-15 [facility] Comment on above: Performed By: #### L 500.4050, L506.1001, L100.0100, L506.0200, L500.4100, L503.0106 ####[facility] [address] [place], [address] GFR/1.73 sq M.predicted among non-blacks MDRD (S/P/Bld) [Vol rate/Area] 84 mL/min/{1.73_m2} Normal >60 [facility] Comment on above: Result Comment: mL/m in/1.73m2 CKD-EPI Creatinine Equation (2021) Performed By: #### L 500.4050, L506.1001, L100.0100, L506.0200, L500.4100, L503.0106 ####[facility] [address] [place], [address] Globulin (S) [Mass/Vol] 2.6 g/dL Normal 2.2-4.2 [facility] Comment on above: Performed By: #### L 500.4050, L506.1001, L100.0100, L506.0200, L500.4100, L503.0106 ####[facility] [address] [place], [address] Glucose [Mass/Vol] 83 mg/dL Normal 70-99 [facility] Comment on above: Performed By: #### L 500.4050, L506.1001, L100.0100, L506.0200, L500.4100, L503.0106 ####[facility] [address] [place], [address] Potassium [Moles/Vol] 4.6 mmol/L Normal 3.3-5.1 [facility] Comment on above: Result Comment: Hemo lysis present, Results??could be affected. ?? Performed By: #### L 500.4050, L506.1001, L100.0100, L506.0200, L500.4100, L503.0106 ####[facility] [address] [place], [address] Sodium [Moles/Vol] 139 mmol/L Normal 133-145 [facility] Comment on above: Performed By: #### L 500.4050, L506.1001, L100.0100, L506.0200, L500.4100, L503.0106 ####[facility] [address] [place], [address] T PROT 7.0 g/dL Normal 5.9-8.4 [facility] Comment on above: Performed By: #### L 500.4050, L506.1001, L100.0100, L506.0200, L500.4100, L503.0106 ####[facility] [address] [place], [address] Urea nitrogen [Mass/Vol] 21 mg/dL High 4-19 [facility] Comment on above: Performed By: #### L 500.4050, L506.1001, L100.0100, L506.0200, L500.4100, L503.0106 ####[facility] [address] [place], [address] Eosinophil percentageOrdered By: Francheska Fast on 12-23-2024 Eosinophils/100 WBC (Bld) 6.6 % High 0-5 [facility] Erythrocyte distribution wid th (RBC) [Ratio]Ordered By: Francheska Fast on 12-23-2024 Erythrocyte distribution width (RBC) [Entitic vol] 45.0 fL High 35.1-43.9 [facility] Erythrocyte distribution wid th ratioOrdered By: Francheska Fast on 12-23-2024 Erythrocyte distribution width (RBC) [Ratio] 12.6 % 11.6-14.6 [facility] Erythrocyte distribution wid th standard deviationOrdered By: Francheska Fast on 12-23-2024 Erythrocyte distribution width (RBC) [Ratio] 45.0 fl High 35.1-43.9 [facility] Folate [Mass/Vol]Ordered By: Francheska Fast on 12-23-2024 Serum Folate 39.30 ng/mL High 4.60-34.80 [facility] Comment on above: Hemolysis, Results w ill be affected, Requires Recollection. Folate [Mass/volume] in Seru m or PlasmaOrdered By: Francheska Fast on 12-23-2024 Folate [Mass/Vol] 39.30 ng/mL High 4.60-34.80 [facility] Comment on above: Hemolysis, Results w ill be affected, Requires Recollection. Folates,Serum (Folic Acid)on 12-23-2024 FOLATES,SERUM 39.30 ng/mL High 4.60-34.80 [facility] Comment on above: Order Comment: N Result Comment: Hemo lysis, Results will be affected, Requires Recollection. Performed By: #### L 500.4050, L506.1001, L100.0100, L506.0200, L500.4100, L503.0106 #### [facility] [address] [place], [address] GFR/1.73 sq M.predicted shyla g non-blacks MDRD (S/P/Bld) [Vol rate/Area]Ordered By: Francheska on 12-23-2024 Estimated GFR (MDRD) Non-Af Amer [address] [facility] Comment on above: mL/min/1.73m2 CKD-EP I Creatinine Equation (2020) Glomerular filtration rate ( GFR) estimation/1.73 sq m using serum, plasma, or whole bOrdered By: Francheska on 12-23-2024 GFR/1.73 sq M.predicted among non-blacks MDRD (S/P/Bld) [Vol rate/Area] 84 mL/min/{1.73_m2} >60 [facility] Comment on above: mL/min/1.73m2 CKD-EP I Creatinine Equation (2020) Hematocrit Auto (Bld) [Volum e fraction]Ordered By: Francheska 12-23-2024 Hematocrit (Bld) [Volume fraction] 42.5 % 40-54 [facility] Hemoglobin measurementOrdere d By: Francheska 12-23-2024 Hemoglobin (Bld) [Mass/Vol] 15.1 g/dL 13.0-16.5 [facility] Immature granulocytes/100 WB C Auto (Bld)Ordered By: Francheska 12-23-2024 Immature granulocytes/100 WBC (Bld) 0.200 % 0.0-0.9 [facility] Comment on above: IG% - Immature Granu locytes (promyelocytes, myelocytes and metamyelocytes) > 1% indicates that a LEFT SHIFT is Present. LDL calc ser/plasOrdered By: Francheska 12-23-2024 Cholesterol in LDL [Mass/Vol] 100 mg/dL [facility] Comment on above: Cxzeyvveam=360-081 m g/dL & Higher Klhx=836 mg/dL or greater LDL Cholesterol, Calculated 100 mg/dL [facility] Comment on above: Wadgbojjko=631-381 m g/dL & Higher Dxde=737 mg/dL or greater Laboratory - Chemistry and C hemistry - challengeOrdered By: Francheska Alonzo on 12-23-2024 AST [Catalytic activity/Vol] 25 U/L <38 [facility] Lipid Profileon 12-23-2024 CHOL:HDL 2.[address] [facility] Comment on above: Performed By: #### L 500.4050, L506.1001, L100.0100, L506.0200, L500.4100, L503.0106 ####[facility] [address] [place], [place], [phone] Cholesterol [Mass/Vol] 198 mg/dL Normal <=200 [facility] Comment on above: Result Comment: Chol esterol level, Desirable <200 mg/dL Borderline high cholesterol 200-239 mg/dL High cholesterol >=240 mg/dL Recommendations of the NCEP Adult Treatment Panel for the following risk-cutoff thresholds for the [place] population. Performed By: #### L 500.4050, L506.1001, L100.0100, L506.0200, L500.4100, L503.0106 ####[facility] [address] [place], [place], [phone] Cholesterol in HDL [Mass/Vol] 79 mg/dL Normal [facility] Comment on above: Result Comment: Leny onal Cholesterol Education Program (NCEP) guidelines: <40 mg/dL: Low HDL-cholesterol (major risk factor for CHD) >= 60 mg/dL: High HDL-cholesterol (negative risk factor for CHD) HDL-cholesterol is affected by a number of factors, e.g. smoking, exercise, hormones, sex and age. Performed By: #### L 500.4050, L506.1001, L100.0100, L506.0200, L500.4100, L503.0106 ####[facility] [address] [place], [address] Cholesterol in LDL [Mass/Vol] 100 mg/dL Normal [facility] Comment on above: Result Comment: Bord ybdify=130-171 mg/dL Higher Wazc=966 mg/dL or greater Performed By: #### L 500.4050, L506.1001, L100.0100, L506.0200, L500.4100, L503.0106 ####[facility] [address] [place], [address] Cholesterol in VLDL [Mass/Vol] 19 mg/dL Normal 5-40 [facility] Comment on above: Performed By: #### L 500.4050, L506.1001, L100.0100, L506.0200, L500.4100, L503.0106 ####[facility] [address] [place], [place], [phone] Triglyceride [Mass/Vol] 97 mg/dL Normal [facility] Comment on above: Result Comment: The drugs N-Acetylcysteine and Metamizole may falsely depress this assay. Normal range: <150 mg/dL Borderline High: 150-199 mg/dL High: 200-499 mg/dL Very High: >500 mg/dL Performed By: #### L 500.4050, L506.1001, L100.0100, L506.0200, L500.4100, L503.0106 ####[facility] [address] [place], [address] Lymphocytes Auto (Unsp spec) [#/Vol]Ordered By: Francheska Fast on 12-23-2024 Lymphocytes (Bld) [#/Vol] 1.36 10*3/uL 0.83-4.51 [facility] Lymphocytes/100 WBC Auto (Un sp spec)Ordered By: Francheska Fast on 12-23-2024 Lymphocytes/100 WBC (Bld) 24.8 % 19-41 [facility] MCV (mean corpuscular volume ) determinationOrdered By: Francheska Fast on 12-23-2024 MCV (RBC) [Entitic vol] 96.6 fL High 80-94 [facility] Mean corpuscular hemoglobin (MCH) determinationOrdered By: on 12-23-2024 MCH (RBC) [Entitic mass] 34.3 pg High 27.0-32.0 [facility] Mean corpuscular hemoglobin concentration (MCHC) determinationOrdered By: Francheska Fast on 12-23-2024 MCHC (RBC) [Mass/Vol] 35.5 g/dL 32-36 [facility] Mean platelet volume determi nationOrdered By: Francheska Fast on 12-23-2024 Platelet mean volume (Bld) [Entitic vol] 11.3 fL 6.2-12.0 [facility] Monocyte percentageOrdered B y: Francheska on 12-23-2024 Monocytes/100 WBC (Bld) 8.4 % 0-10 [facility] Neutrophil percentageOrdered By: on 12-23-2024 Neutrophils/100 WBC (Bld) 59.1 % 47-70 [facility] Nucleated red blood cell per centageOrdered By: Francheska on 12-23-2024 Nucleated RBC/100 WBC (Bld) [Ratio] 0 % 0-5 [facility] Platelet countOrdered By: Thorne on 12-23-2024 Platelets (Bld) [#/Vol] 188 10*3/uL 150-450 [facility] Potassium (Unsp spec) [Mass/ Vol]Ordered By: Francheska 12-23-2024 Potassium [Moles/Vol] 4.6 mmol/L 3.3-5.1 [facility] Comment on above: Hemolysis present, R esults could be affected. Potassium measurement (mass/ volume)Ordered By: Francheska on 12-23-2024 Potassium (Unsp spec) [Mass/Vol] 4.6 mmol/L 3.3-5.1 [facility] Comment on above: Hemolysis present, R esults could be affected. RBC Auto (Bld) [#/Vol]Ordere d By: Francheska Fast on 12-23-2024 RBC (Bld) [#/Vol] 4.40 10*6/uL Low 4.6-6.2 [facility] Screening total cholesterol/ high density lipoprotein (HDL) cholesterol ratioOrdered By: on 12-23-2024 Cholesterol.total/Cho lesterol in HDL [Mass ratio] 2.52 {ratio} [facility] Serum creatinine measurement (mass/volume)Ordered By: on 12-23-2024 Creatinine [Mass/Vol] 0.93 mg/dL 0.70-1.20 [facility] Serum globulin measurementOr dered By: 12-23-2024 Globulin (S) [Mass/Vol] 2.6 g/dL 2.2-4.2 [facility] Serum glucose measurement (m ass/volume)Ordered By: 12-23-2024 Glucose [Mass/Vol] 83 mg/dL 70-99 [facility] Serum or plasma alanine nichole otransferase (ALT) measurementOrdered By: 12-23-2024 ALT [Catalytic activity/Vol] 19 U/L <47 [facility] Serum or plasma albumin pauline urement (mass/volume)Ordered By: on 12-23-2024 Albumin [Mass/Vol] 4.4 g/dL 3.4-4.8 [facility] Serum or plasma albumin/glob ulin mass ratioOrdered By: 12-23-2024 Albumin/Globulin [Mass ratio] 1.7 {ratio} 0.9-2.4 [facility] Serum or plasma alkaline fabby sphatase measurementOrdered By: 12-23-2024 ALP [Catalytic activity/Vol] 82 U/L 40-129 [facility] Serum or plasma calcium pauline urement (mass/volume)Ordered By: 12-23-2024 Calcium [Mass/Vol] 9.5 mg/dL 7.6-11.0 [facility] Serum or plasma cholesterol in HDL measurement (mass/volume)Ordered By: 12-23-2024 Cholesterol in HDL [Mass/Vol] 79 mg/dL >40 [facility] Comment on above: National Cholesterol Education Program (NCEP) guidelines:<40 mg/dL: Low HDL-cholesterol (major risk factor for CHD)>= 60 mg/dL: High HDL-cholesterol (negative risk factor for CHD)HDL-cholesterol is affected by a number of factors, e.g. smoking, exercise, hormones, sex and age. Serum or plasma cholesterol measurement (mass/volume)Ordered By: Francheska Fast on 12-23-2024 Cholesterol [Mass/Vol] 198 mg/dL <201 [facility] Comment on above: Cholesterol level, D esirable <200 mg/dLBorderline high cholesterol 200-239 mg/dLHigh cholesterol >=240 mg/dLRecommendations of the NCEP Adult Treatment Panel for the following risk-cutoff thresholds for the [place] population. Serum or plasma urea nitroge n measurement (mass/volume)Ordered By: Francheska Fast on 12-23-2024 Urea nitrogen [Mass/Vol] 21 mg/dL High 4-19 [facility] Sodium levelOrdered By: Debr a Fast on 12-23-2024 Sodium [Moles/Vol] 139 mmol/L 133-145 [facility] Total proteinOrdered By: Faby ra Fast on 12-23-2024 Protein [Mass/Vol] 7.0 g/dL 5.9-8.4 [facility] Triglycerides measurementOrd ered By: Francheska Fast on 12-23-2024 Triglyceride [Mass/Vol] 97 mg/dL <199 [facility] Comment on above: The drugs N-Acetylcy steine and Metamizole may falsely depress this assay. Normal range: <150 mg/dLBorderline High: 150-199 mg/dLHigh: 200-499 mg/dLVery High: >500 mg/dL Vitamin B12on 12-23-2024 Cobalamin (Vitamin B12) [Mass/Vol] 3130 pg/mL High 180-914 [facility] Comment on above: Performed By: #### L 500.4050, L506.1001, L100.0100, L506.0200, L500.4100, L503.0106 ####[facility] [address] [place], [place], [id number] Vitamin B12 ser/plasOrdered By: Francheska Fast on 12-23-2024 Cobalamin (Vitamin B12) [Mass/Vol] 3130 pg/mL High 180-914 [facility] Vitamin D, 25-hydroxyOrdered By: Francheska Fast on 12-23-2024 Vitamin D 25-Hydroxy 99.4 ng/mL 30-100 [facility] Comment on above: Vitamin D StatusDefi ciency: <20 ng/mL (50nmol/L)Insufficiency: 20-30 ng/mL (50-75 nmol/L)Sufficiency: 30-100 ng/mL (75-250 nmol/L)Toxicity: >100 ng/mL (>250 nmol/L) Vitamin D,25 Hydroxyon 12-23 Vitamin D 25-OH 99.4 ng/mL Normal 30-100 [facility] Comment on above: Result Comment: Lore min D Status Deficiency: <20 ng/mL (50nmol/L) Insufficiency: 20-30 ng/mL (50-75 nmol/L) Sufficiency: 30-100 ng/mL (75-250 nmol/L) Toxicity: >100 ng/mL (>250 nmol/L) Performed By: #### L 500.4050, L506.1001, L100.0100, L506.0200, L500.4100, L503.0106 ####[facility] [address] [place], [address] White blood cell (WBC) count Ordered By: Francheska Alonzo on 12-23-2024 WBC (Bld) [#/Vol] 5.5 10*3/uL 4.4-11.0 [facility] Gastroenterology Visit Repor ton 12-17-2024 Gastroenterology Visit Report [facility] [address] [place] [address] OFFICE VISIT Date of Service: 12/17/24 MR#: [id number] Acct: [id number] Name: JUNG ABURTO Rep #: [id number] : 1945 Provider: David Parra DO Age/Sex: 79/M Location: [facility] [place] Status: Signed Intake Vital Signs 05/10/24 10:25 Height 6 ft Intake Visit Reasons: Gastroesophageal reflux disease (GERD) Allergies No Known Allergies Allergy (Verified 05/10/24 10:25) Medications ???Medication ???Instructions ???Recorded ???Confirmed ???Type coenzyme Q10 30 mg capsule 30 mg PO DAILY 05/21/16 12/17/24 H istory multivitamin 1 ea PO DAILY 05/21/16 12/17/24 Hi story cyanocobalamin (vitamin B-12) 2,000 mcg PO DAILY 04/22/17 History 2,000 mcg tablet ascorbic acid (vitamin C) 1,000 mg 1 g PO QDAY 09/25/17 12/17/24 Hi story tablet s-adenosylmethionine 400 mg tablet 800 mg PO DAILY 10/10/21 5 History melatonin 12 mg tablet 12 mg PO QHS 10/16/22 12/17/24 His tory rosuvastatin 10 mg tablet 20 mg PO DAILY 10/16/22 12/17/24 H istory aspirin-sod bicarb-citric acid 325 1 tab PO PRN PRN BLOATING 12/17/24 History mg-1,916 mg-1,000 mg efferves tab (Maryjane-Pullman Original) sulfamethoxazole 800 1 tab PO DAILY 10 days #10 tabs 12/17/24 Rx mg-trimethoprim 160 mg tablet (Bactrim DS) lisinopril 5 mg tablet 5 mg PO DAILY #90 tabs 09/28/24 Rx vonoprazan 10 mg tablet (Voquezna) 10 mg PO QDAY 10/01/24 12/17/24 History omeprazole 40 mg capsule,delayed 40 mg PO QDAY #90 caps 10/16/24 Rx release Have you fallen in the past year?: No Nurse's Note: Pt was scheduled for EGD on 02.25.25 at the end of their appt today. Reviewed prep instructions and which medications to hold prior to procedure with pt in office. A paper copy of EGD prep instructions were given to pt. Pt denies any questions or concerns at this time. [facility] Medical History Normal stress echocardiogram Gastritis Onofre esophagus Wears glasses Alcohol use Arthritis Back pain Hepatitis High cholesterol Gastric reflux Non-smoker History of edema History of echocardiogram History of stress test Cardiology follow-up encounter Hx of colonic polyp GERD (gastroesophageal reflux disease) Mitral valve annular calcification Chronic renal insufficiency Essential (primary) hypertension Raynaud disease Hyperlipidemia Palpitations Surgical History History of cardiac catheterization History of esophagogastroduodenosc opy (EGD) Hx of foot surgery Hx of colonoscopy Hx of hernia repair Hx of transurethral resection of prostate Hx of appendectomy History of hydrocelectomy Family History Father Cancer Colon cancer Mother , age 72 CAD (coronary artery disease) Hypertension Breast cancer Social History Smoking Status: Never smoker alcohol intake: current alcohol intake frequency: 0-2 drinks per day substance use type: does not use caffeine: Yes Type: coffee Number of servings: 4 HPI HPI Details: JUNG ABURTO, is a 79 M who presents to the office today for follow up. EGD 03.02.24 Esophageal mucosal changes secondary to established short-segment Onofre's disease. Biopsied. Small hiatal hernia. Normal stomach. No gross lesions in the first portion of the duodenum. OV 7 pt reports that he is feeling well overall and denies GI symptoms of concern at this time. Pt reports that about 4 weeks ago he was diagnosed with Lyme disease, and has lost about 8 lbs since. Continues with dexilant. abd/pelvis CT 05.10.24 1. Prominent prostate enlargement. Possible bladder wall thickening although bladder is suboptimally evaluated by not being distended. 2. Moderate to marked diffuse fecal retention. OV 10.01.24 pt reports that PCP switched him from dexilant to voquenza 10mg daily on 09.21.24. Pt reports it is working, but wears off after about 12 hours. Pt reports he recently stopped drinking alcohol and thinks that his GERD has gotten worse. OV 12.17.24 pt reports his PCP gave him Voquezna, has been taking this in the evenings and then Omeprazole in the mornings. Reports as long as he watches what, how much, and when he eats, he is able to keep him symptoms at bay. Reports he would like another EGD to check on his Onofre's esophagus. ROS Const Constitutional: Positive for fatigue; No fever(s) or weight change ENT ENT: Positive for difficulty swallowing Gastro GI: Positive for heartburn and difficulty swallowing; No abdominal pain, belching, bloating, ch (more content not included)... Normal [facility] Gastroenterology Visit Repor ton 10-01-2024 Gastroenterology Visit Report [facility] [address] [place] [address] OFFICE VISIT Date of Service: 10/01/24 MR#: [id number] Acct: [id number] Name: JUNG ABURTO Rep #: [id number] : 1945 Provider: David Parra DO Age/Sex: 79/M Location: [facility] [place] Status: Signed Intake Vital Signs 05/10/24 10:25 Height 6 ft Intake Visit Reasons: Gastroesophageal reflux disease (GERD) Allergies No Known Allergies Allergy (Verified 05/10/24 10:25) Medications ???Medication ???Instructions ???Recorded ???Confirmed ???Type coenzyme Q10 30 mg capsule 30 mg PO DAILY 05/21/16 10/01/24 History multivitamin 1 ea PO DAILY 05/21/16 10/01/24 History cyanocobalamin (vitamin B-12) 2,000 mcg PO DAILY 04/22/17 10/01/24 History 2,000 mcg tablet ascorbic acid (vitamin C) 1,000 mg 1 g PO QDAY 09/25/17 10/01/24 History tablet s-adenosylmethionine 400 mg tablet 800 mg PO DAILY 10/10/21 10/01/24 History melatonin 12 mg tablet 12 mg PO QHS 10/16/22 10/01/24 History rosuvastatin 10 mg tablet 20 mg PO DAILY 10/16/22 10/01/24 History aspirin-sod bicarb-citric acid 325 1 tab PO PRN PRN BLOATING 11/30/22 10/01/24 History mg-1,916 mg-1,000 mg efferves tab (Maryjane-Pullman Original) sulfamethoxazole 800 1 tab PO DAILY 10 days #10 tabs 05/10/24 10/01/24 Rx mg-trimethoprim 160 mg tablet (Bactrim DS) lisinopril 5 mg tablet 5 mg PO DAILY #90 tabs 09/28/24 10/01/24 Rx omeprazole 20 mg capsule,delayed 20 mg PO BID #90.0 caps 10/01/24 10/01/24 Rx release vonoprazan 10 mg tablet (Voquezna) 10 mg PO QDAY 10/01/24 10/01/24 History Have you fallen in the past year?: No PFSH Medical History Normal stress echocardiogram Gastritis Onofre esophagus Wears glasses Alcohol use Arthritis Back pain Hepatitis High cholesterol Gastric reflux Non-smoker History of edema History of echocardiogram History of stress test Cardiology follow-up encounter Hx of colonic polyp GERD (gastroesophageal reflux disease) Mitral valve annular calcification Chronic renal insufficiency Essential (primary) hypertension Raynaud disease Hyperlipidemia Palpitations Surgical History History of cardiac catheterization History of esophagogastroduodenosc opy (EGD) Hx of foot surgery Hx of colonoscopy Hx of hernia repair Hx of transurethral resection of prostate Hx of appendectomy History of hydrocelectomy Family History Father Cancer Colon cancer Mother , age 72 CAD (coronary artery disease) Hypertension Breast cancer Social History Smoking Status: Never smoker alcohol intake: current alcohol intake frequency: 0-2 drinks per day substance use type: does not use caffeine: Yes Type: coffee Number of servings: 4 HPI HPI Details: JUNG ABURTO, is a 79 M who presents to the office today for follow up. EGD 6 Esophageal mucosal changes secondary to established short-segment Onofre's disease. Biopsied. Small hiatal hernia. Normal stomach. No gross lesions in the first portion of the duodenum. OV 7.12.24 pt reports that he is feeling well overall and denies GI symptoms of concern at this time. Pt reports that about 4 weeks ago he was diagnosed with Lyme disease, and has lost about 8 lbs since. Continues with dexilant. abd/pelvis CT 9.24 1. Prominent prostate enlargement. Possible bladder wall thickening although bladder is suboptimally evaluated by not being distended. 2. Moderate to marked dif fuse fecal retention. OV 1..25 pt reports that PCP switched him from dexilant to voquenza 10mg daily on 09.21.24. Pt reports it is working, but wears off after about 12 hours. Pt reports he recently stopped drinking alcohol and thinks that his GERD has gotten worse. ROS Const Constitutional: Positive for fatigue; No fever(s) or weight change ENT ENT: No difficulty swallowing Gastro GI: [...] and No depression Endo Endocrine: Positive for fatigue; No weight change Aller/Imm Allergy/Immunologic: No itchy eyes Tang/Lymp Hematologic/Lymphatic (more content not included)... Normal [facility] CBC W/Diff, Automatedon 10-2 Absolute Lymph 1.27 X10 3/uL Normal 0.83-4.51 [facility] Comment on above: Performed By: #### L 100.0100, L500.4050, L506.1000, L500.4100 ####[facility] [address] [place], [place], [id number] Absolute Neut 4.2 X10 3/uL Normal 2.0-7.7 [facility] Comment on above: Performed By: #### L 100.0100, L500.4050, L506.1000, L500.4100 ####[facility] [address] [place], [address] Basophils/100 WBC (Bld) 0.8 % Normal 0-1 [facility] Comment on above: Performed By: #### L 100.0100, L500.4050, L506.1000, L500.4100 ####[facility] [address] [place], [address] Eosinophils/100 WBC (Bld) 4.9 % Normal 0-5 [facility] Comment on above: Performed By: #### L 100.0100, L500.4050, L506.1000, L500.4100 ####[facility] [address] [place], [address] Erythrocyte distribution width (RBC) [Ratio] 12.8 % Normal 11.6-14.6 [facility] Comment on above: Performed By: #### L 100.0100, L500.4050, L506.1000, L500.4100 ####[facility] [address] [place], [address] Hematocrit (Bld) [Volume fraction] 43.9 % Normal 40-54 [facility] Comment on above: Performed By: #### L 100.0100, L500.4050, L506.1000, L500.4100 ####[facility] [address] [place], [address] Hemoglobin (Bld) [Mass/Vol] 15.1 g/dL Normal 13.0-16.5 [facility] Comment on above: Performed By: #### L 100.0100, L500.4050, L506.1000, L500.4100 ####[facility] [address] [place], [address] IG% 0.200 Normal 0.0-0.9 [facility] Comment on above: Result Comment: IG% - Immature Granulocytes (promyelocytes, myelocytes and metamyelocytes) > 1% indicates that a LEFT SHIFT is Present. Performed By: #### L 100.0100, L500.4050, L506.1000, L500.4100 ####[facility] [address] [place], [address] Lymphocytes/100 WBC (Bld) 20.1 % Normal 19-41 [facility] Comment on above: Performed By: #### L 100.0100, L500.4050, L506.1000, L500.4100 ####[facility] [address] [place], [address] MCH (RBC) [Entitic mass] 33.6 pg High 27.0-32.0 [facility] Comment on above: Performed By: #### L 100.0100, L500.4050, L506.1000, L500.4100 ####[facility] [address] [place], [address] MCHC (RBC) [Mass/Vol] 34.4 g/dL Normal 32-36 [facility] Comment on above: Performed By: #### L 100.0100, L500.4050, L506.1000, L500.4100 ####[facility] [address] [place], [address] MCV (RBC) [Entitic vol] 97.6 fL High 80-94 [facility] Comment on above: Performed By: #### L 100.0100, L500.4050, L506.1000, L500.4100 ####[facility] [address] [place], [address] Monocytes/100 WBC (Bld) 7.8 % Normal 0-10 [facility] Comment on above: Performed By: #### L 100.0100, L500.4050, L506.1000, L500.4100 ####[facility] [address] [place], [address] Neutrophils/100 WBC (Bld) 66.2 % Normal 47-70 [facility] Comment on above: Performed By: #### L 100.0100, L500.4050, L506.1000, L500.4100 ####[facility] [address] [place], [address] Nucleated RBC (Bld) [#/Vol] 0 10*3/uL Normal 0-5 [facility] Comment on above: Performed By: #### L 100.0100, L500.4050, L506.1000, L500.4100 ####[facility] [address] [place], [address] Platelet mean volume (Bld) [Entitic vol] 10.8 fL Normal 6.2-12.0 [facility] Comment on above: Performed By: #### L 100.0100, L500.4050, L506.1000, L500.4100 ####[facility] [address] [place], [address] Platelets (Bld) [#/Vol] 205 10*3/uL Normal 150-450 [facility] Comment on above: Performed By: #### L 100.0100, L500.4050, L506.1000, L500.4100 ####[facility] [address] [place], [address] RBC (Bld) [#/Vol] 4.50 10*6/uL Low 4.6-6.2 [facility] Comment on above: Performed By: #### L 100.0100, L500.4050, L506.1000, L500.4100 ####[facility] [address] [place], [address] RDW SD 45.9 fl High 35.1-43.9 [facility] Comment on above: Performed By: #### L 100.0100, L500.4050, L506.1000, L500.4100 ####[facility] [address] [place], [address] WBC (Bld) [#/Vol] 6.3 10*3/uL Normal 4.4-11.0 [facility] Comment on above: Performed By: #### L 100.0100, L500.4050, L506.1000, L500.4100 ####[facility] [address] [place], [address] Comprehensive Metabolic Prof ilon 07-02-2024 Albumin [Mass/Vol] 3.9 g/dL Normal 3.2-5.0 [facility] Comment on above: Performed By: #### L 100.0100, L500.4050, L506.1000, L500.4100 ####[facility] [address] [place], [address] Albumin/Globulin [Mass ratio] 1.2 {ratio} Normal 0.9-2.4 [facility] Comment on above: Performed By: #### L 100.0100, L500.4050, L506.1000, L500.4100 ####[facility] [address] [place], [address] ALK P 75 U/L Normal 45-117 [facility] Comment on above: Performed By: #### L 100.0100, L500.4050, L506.1000, L500.4100 ####[facility] [address] [place], [address] ALT [Catalytic activity/Vol] 23 U/L Normal 16-61 [facility] Comment on above: Performed By: #### L 100.0100, L500.4050, L506.1000, L500.4100 ####[facility] [address] [place], [address] AST [Catalytic activity/Vol] 20 U/L Normal 15-37 [facility] Comment on above: Performed By: #### L 100.0100, L500.4050, L506.1000, L500.4100 ####[facility] [address] [place], [address] Bilirubin [Mass/Vol] 0.50 mg/dL Normal 0.20-1.00 [facility] Comment on above: Result Comment: For patients on eltrombopag therapy, use of Dimension Clifford TBIL is not recommended. Performed By: #### L 100.0100, L500.4050, L506.1000, L500.4100 ####[facility] [address] [place], [address] BUN/CRE 29.8 RATIO High 10-20 [facility] Comment on above: Performed By: #### L 100.0100, L500.4050, L506.1000, L500.4100 ####[facility] [address] [place], [address] CA,Total 9.3 mg/dL Normal 8.5-10.1 [facility] Comment on above: Performed By: #### L 100.0100, L500.4050, L506.1000, L500.4100 ####[facility] [address] [place], [address] Chloride [Moles/Vol] 107 mmol/L Normal 98-107 [facility] Comment on above: Performed By: #### L 100.0100, L500.4050, L506.1000, L500.4100 ####[facility] [address] [place], [address] CO2 [Moles/Vol] 27.0 mmol/L Normal 21.0-32.0 [facility] Comment on above: Performed By: #### L 100.0100, L500.4050, L506.1000, L500.4100 ####[facility] [address] [place], [address] Creatinine [Mass/Vol] 0.84 mg/dL Normal 0.70-1.30 [facility] Comment on above: Result Comment: The validity of the calculated GFR GFRAA in patients over 70 years has not been determined. Clinical correlation is essential. Performed By: #### L 100.0100, L500.4050, L506.1000, L500.4100 ####[facility] [address] [place], [address] EST GFR - AA 113 mL/min Normal >60 [facility] Comment on above: Result Comment: Afri can Gambian GFR Calc Performed By: #### L 100.0100, L500.4050, L506.1000, L500.4100 ####[facility] [address] [place], [address] GAP 5 Normal 5-15 [facility] Comment on above: Performed By: #### L 100.0100, L500.4050, L506.1000, L500.4100 ####[facility] [address] [place], [address] GFR/1.73 sq M.predicted among non-blacks MDRD (S/P/Bld) [Vol rate/Area] 94 mL/min/{1.73_m2} Normal >60 [facility] Comment on above: Result Comment: Non- GFR Calc Performed By: #### L 100.0100, L500.4050, L506.1000, L500.4100 ####[facility] [address] [place], [address] Globulin (S) [Mass/Vol] 3.2 g/dL Normal 2.2-4.2 [facility] Comment on above: Performed By: #### L 100.0100, L500.4050, L506.1000, L500.4100 ####[facility] [address] [place], [address] Glucose [Mass/Vol] 89 mg/dL Normal 74-106 [facility] Comment on above: Performed By: #### L 100.0100, L500.4050, L506.1000, L500.4100 ####[facility] [address] [place], [address] Potassium [Moles/Vol] 4.2 mmol/L Normal 3.5-5.1 [facility] Comment on above: Performed By: #### L 100.0100, L500.4050, L506.1000, L500.4100 ####[facility] [address] [place], [address] Sodium [Moles/Vol] 139 mmol/L Normal 136-145 [facility] Comment on above: Performed By: #### L 100.0100, L500.4050, L506.1000, L500.4100 ####[facility] [address] [place], [address] T PROT 7.1 g/dL Normal 6.4-8.2 [facility] Comment on above: Performed By: #### L 100.0100, L500.4050, L506.1000, L500.4100 ####[facility] [address] [place], [address] Urea nitrogen [Mass/Vol] 25 mg/dL High 7-18 [facility] Comment on above: Performed By: #### L 100.0100, L500.4050, L506.1000, L500.4100 ####[facility] [address] [place], [address] Lipid Profileon 07-02-2024 Cholesterol [Mass/Vol] 201 mg/dL High 200 [facility] Comment on above: Result Comment: <200 mg/dL Desirable 200-240 mg/dL Borderline >240 mg/dL High Risk Performed By: #### L 100.0100, L500.4050, L506.1000, L500.4100 ####[facility] [address] [place], [address] Cholesterol in HDL [Mass/Vol] 85 mg/dL Normal [facility] Comment on above: Result Comment: The drugs N-Acetylcysteine and Metamizole may falsely depress this assay. Reference Range HDL <40 mg/dL Low HDL Cholesterol HDL >or= 60 mg/dL High HDL Cholesterol Performed By: #### L 100.0100, L500.4050, L506.1000, L500.4100 ####[facility] [address] [place], [address] Cholesterol in LDL [Mass/Vol] 103 mg/dL Normal 0-130 [facility] Comment on above: Performed By: #### L 100.0100, L500.4050, L506.1000, L500.4100 ####[facility] [address] [place], [address] Cholesterol in VLDL [Mass/Vol] 13 mg/dL Normal 5-40 [facility] Comment on above: Performed By: #### L 100.0100, L500.4050, L506.1000, L500.4100 ####[facility] [address] [place], [address] Triglyceride [Mass/Vol] 63 mg/dL Normal [facility] Comment on above: Result Comment: The drugs N-Acetylcysteine and Metamizole may falsely depress this assay. Serum Triglycerides Reference Interval Normal <150 mg/dL Borderline high 150 - 199 mg/dL High 200 - 499 mg/dL Very High > or = 500 mg/dL Performed By: #### L 100.0100, L500.4050, L506.1000, L500.4100 ####[facility] [address] [place], [address] Vitamin D,25 Hydroxyon 07-02 Vitamin D 25-OH 38.5 ng/mL Normal [facility] Comment on above: Result Comment: Lore min D 25(OH) Status Range Deficiency <20 ng/mL (50nmol/L) Insufficiency 20 - 30 ng/mL (50 - 75 nmol/L) Sufficiency 30 - 100 ng/mL (75 - 250 nmol/L) Toxicity >100 ng/mL (>250 nmol/L) Performed By: #### L 100.0100, L500.4050, L506.1000, L500.4100 ####[facility] [address] [place], [place], [id number] CRPon 06-22-2024 C-REACTIVE PROT < 2.90 Normal 0.0-3.0 [facility] Comment on above: Result Comment: C-Re active Protein (CRP) provides useful information for the diagnosis, therapy and monitoring of inflammatory processes and associated diseases. For the evaluation of Relative Risk for Cardiovascular Disease, a High Sensitivity CRP (HSCRP) should be ordered. Performed By: #### P P53 #### [facility] [address] [place], [place], [id number] Erythrocyte Sed Rateon 06-22 SED RATE 2 mm/hr Normal 0-20 [facility] Comment on above: Performed By: #### P P53 #### [facility] [address] [place], [place], [id number] Culture, Blood (WB)on 2023 CUB Blood cultures x2, f rom two different sites No growth in [address] [facility] Comment on above: Performed By: #### P P53 #### [facility] [address] [place], [place], [id number] Urine Cultureon 05-11-2024 U[facility] Culture exhibits no growth. Normal [facility] Comment on above: Performed By: #### P P53 #### [facility] [address] [place], [place], [id number] Abdomen/Pelvis W IV Cont ONL Yon 05-10-2024 Abdomen/Pelvis W IV Cont ONLY [facility] [address] [place], [place] [address] Abdomen/Pelvis W IV Cont ONLY MR#: [id number] Acct: [id number] Name: JUNG ABURTO Rep #: [id number] : 1945 M 79 From: George rosen MD PCP: Dr. Francheska Alonzo, DO Status: DEP ER Study: Abdomen/Pelvis W IV Cont ONLY Date of Exam: Exam# [id number] Ordering Dr: Mal Aleman DO ADDENDUM by Dr. George Garsia MD on 05/18/24 at 1544 ==== ADDENDUM ==== [id number] No follow-up is recommended for right renal cyst. Electronically Signed: George Garsia MD at 15:44 EDT , 05/18/24 1544 Date cc: Dr. Mal Aleman DO; Dr. Francheska Alonzo DO * Signed ADDENDUM by Dr. George Garsia MD on 05/18/[address]/Abdomen/Pelvis W IV Cont ONLY IMPRESSION: undefined 05/18/24 1551 Date cc: Dr. Mal Aleman DO; Dr. Francheska Alonzo DO * Signed [id number] EXAM: CT ABDOMEN AND PELVIS WITH INTRAVENOUS CONTRAST CLINICAL INDICATION: pain, dysuria, fever TECHNIQUE: Helically acquired images were obtained of the abdomen and pelvis with intravenous contrast. This CT exam was performed using one or more of the following dose reduction techniques: automated exposure control, adjustment of the mA and/or kV according to patient size, and/or use of iterative reconstruction technique. CONTRAST: IV 100mL Isovue-[id number] RADIATION DOSE: CTDIvol = 16.49 mGy, DLP = 826.17 mGy-cm COMPARISON: No relevant prior studies available. FINDINGS: LOWER THORAX: Grossly negative ABDOMEN: LIVER: Liver has widespread simple cysts and is otherwise unremarkable. GALLBLADDER AND BILE DUCTS: Nondistended. No calcified gallstones. No gallbladder distention or wall edema. No intra- or extrahepatic biliary ductal dilation. PANCREAS: Unremarkable. No focal cystic or solid mass. SPLEEN: Unremarkable. Normal size without focal cystic or solid mass. ADRENALS: Unremarkable. No nodules. KIDNEYS AND URETERS: 9.8 cm simple cyst of the upper right kidney. 3 mm nonobstructing stone in the lower pole of the right kidney. 4 mm calcification of the left renal hilum most likely vascular. No hydronephrosis on either side. STOMACH AND BOWEL: Evaluation of the GI tract is limited by absence of oral contrast. Cannot exclude stomach wall thickening. No dilated loops of bowel or evidence for obstruction. Cannot exclude segmental thickening of the dent of the small or large bowel. Cannot exclude enteritis or colitis. Moderate to marked diffuse fecal retention. PELVIS: APPENDIX: No evidence of acute appendicitis. BLADDER: Nondistended. Probable bladder wall thickening. REPRODUCTIVE: Marked prostate enlargement. Probable bladder wall thickening although the bladder is not distended. ABDOMEN and PELVIS: INTRAPERITONEAL SPACE: Unremarkable. No ascites or other fluid collection. No free air. BONES/JOINTS: Degenerative changes throughout the spine. No suspicious lytic or blastic abnormality. SOFT TISSUES: Surgical changes of bilateral inguinal hernia repairs. VASCULATURE: Tortuous aorta and iliac arteries with calcified plaque. No aneurysm. LYMPH NODES: Unremarkable. No enlarged lymph nodes. CT/Abdomen/Pelvis W IV Cont ONLY IMPRESSION: 1. Prominent prostate enlargement. Possible bladder wall thickening although bladder is suboptimally evaluated by not being distended. 2. Moderate to marked diffuse fecal retention. Electronically Signed: George Garsia MD at 13:54 EDT , CC: Dr. Mal Aleman, DO; Dr. Francheska Alonzo, DO Parts Representative: Signed Normal [facility] CBC W/Diff, Automatedon 09-0 Absolute Lymph 1.13 X10 3/uL Normal 0.83-4.51 [facility] Comment on above: Performed By: #### L 500.4050, L100.0100 ####[facility] [address] [place], [address] Absolute Neut 14.4 X10 3/uL High 2.0-7.7 [facility] Comment on above: Performed By: #### L 500.4050, L100.0100 ####[facility] [address] [place], [address] Basophils/100 WBC (Bld) 0.3 % Normal 0-1 [facility] Comment on above: Performed By: #### L 500.4050, L100.0100 ####[facility] [address] [place], [address] Eosinophils/100 WBC (Bld) 0.4 % Normal 0-5 [facility] Comment on above: Performed By: #### L 500.4050, L100.0100 ####[facility] [address] [place], [address] Erythrocyte distribution width (RBC) [Ratio] 12.7 % Normal 11.6-14.6 [facility] Comment on above: Performed By: #### L 500.4050, L100.0100 ####[facility] [address] [place], [address] Hematocrit (Bld) [Volume fraction] 42.8 % Normal 40-54 [facility] Comment on above: Performed By: #### L 500.4050, L100.0100 ####[facility] [address] [place], [address] Hemoglobin (Bld) [Mass/Vol] 14.6 g/dL Normal 13.0-16.5 [facility] Comment on above: Performed By: #### L 500.4050, L100.0100 ####[facility] [address] [place], [address] IG% 0.500 Normal 0.0-0.9 [facility] Comment on above: Result Comment: IG% - Immature Granulocytes (promyelocytes, myelocytes and metamyelocytes) > 1% indicates that a LEFT SHIFT is Present. Performed By: #### L 500.4050, L100.0100 ####[facility] [address] [place], [address] Lymphocytes/100 WBC (Bld) 6.7 % Low 19-41 [facility] Comment on above: Performed By: #### L 500.4050, L100.0100 ####[facility] [address] [place], [address] MCH (RBC) [Entitic mass] 34.0 pg High 27.0-32.0 [facility] Comment on above: Performed By: #### L 500.4050, L100.0100 ####[facility] [address] [place], [address] MCHC (RBC) [Mass/Vol] 34.1 g/dL Normal 32-36 [facility] Comment on above: Performed By: #### L 500.4050, L100.0100 ####[facility] [address] [place], [address] MCV (RBC) [Entitic vol] 99.5 fL High 80-94 [facility] Comment on above: Performed By: #### L 500.4050, L100.0100 ####[facility] [address] [place], [address] Monocytes/100 WBC (Bld) 6.7 % Normal 0-10 [facility] Comment on above: Performed By: #### L 500.4050, L100.0100 ####[facility] [address] [place], [address] Neutrophils/100 WBC (Bld) 85.4 % High 47-70 [facility] Comment on above: Performed By: #### L 500.4050, L100.0100 ####[facility] [address] [place], [address] Nucleated RBC (Bld) [#/Vol] 0 10*3/uL Normal 0-5 [facility] Comment on above: Performed By: #### L 500.4050, L100.0100 ####[facility] [address] [place], [address] Platelet mean volume (Bld) [Entitic vol] 10.9 fL Normal 6.2-12.0 [facility] Comment on above: Performed By: #### L 500.4050, L100.0100 ####[facility] [address] [place], [address] Platelets (Bld) [#/Vol] 154 10*3/uL Normal 150-450 [facility] Comment on above: Performed By: #### L 500.4050, L100.0100 ####[facility] [address] [place], [address] RBC (Bld) [#/Vol] 4.30 10*6/uL Low 4.6-6.2 [facility] Comment on above: Performed By: #### L 500.4050, L100.0100 ####[facility] [address] [place], [address] RDW SD 47.3 fl High 35.1-43.9 [facility] Comment on above: Performed By: #### L 500.4050, L100.0100 ####[facility] [address] [place], [address] WBC (Bld) [#/Vol] 16.9 10*3/uL High 4.4-11.0 [facility] Comment on above: Performed By: #### L 500.4050, L100.0100 ####[facility] [address] [place], [address] Comprehensive Metabolic Prof ilon 05-10-2024 Albumin [Mass/Vol] 3.7 g/dL Normal 3.2-5.0 [facility] Comment on above: Performed By: #### L 500.4050, L100.0100 ####[facility] [address] [place], [address] Albumin/Globulin [Mass ratio] 1.1 {ratio} Normal 0.9-2.4 [facility] Comment on above: Performed By: #### L 500.4050, L100.0100 ####[facility] [address] [place], [address] ALK P 74 U/L Normal 45-117 [facility] Comment on above: Performed By: #### L 500.4050, L100.0100 ####[facility] [address] [place], [address] ALT [Catalytic activity/Vol] 22 U/L Normal 16-61 [facility] Comment on above: Performed By: #### L 500.4050, L100.0100 ####[facility] [address] [place], [address] AST [Catalytic activity/Vol] 16 U/L Normal 15-37 [facility] Comment on above: Performed By: #### L 500.4050, L100.0100 ####[facility] [address] [place], [address] Bilirubin [Mass/Vol] 0.50 mg/dL Normal 0.20-1.00 [facility] Comment on above: Result Comment: For patients on eltrombopag therapy, use of Dimension Clifford TBIL is not recommended. Performed By: #### L 500.4050, L100.0100 ####[facility] [address] [place], [address] BUN/CRE 28.1 RATIO High 10-20 [facility] Comment on above: Performed By: #### L 500.4050, L100.0100 ####[facility] [address] [place], [address] CA,Total 9.1 mg/dL Normal 8.5-10.1 [facility] Comment on above: Performed By: #### L 500.4050, L100.0100 ####[facility] [address] [place], [address] Chloride [Moles/Vol] 105 mmol/L Normal 98-107 [facility] Comment on above: Performed By: #### L 500.4050, L100.0100 ####[facility] [address] [place], [address] CO2 [Moles/Vol] 26.0 mmol/L Normal 21.0-32.0 [facility] Comment on above: Performed By: #### L 500.4050, L100.0100 ####[facility] [address] [place], [address] Creatinine [Mass/Vol] 0.86 mg/dL Normal 0.70-1.30 [facility] Comment on above: Result Comment: The validity of the calculated GFR GFRAA in patients over 70 years has not been determined. Clinical correlation is essential. Performed By: #### L 500.4050, L100.0100 ####[facility] [address] [place], [address] ECRCL 74.62 ml/min Normal [facility] Comment on above: Performed By: #### L 500.4050, L100.0100 ####[facility] [address] [place], [address] EST GFR - AA 111 mL/min Normal >60 [facility] Comment on above: Result Comment: Afri can Gambian GFR Calc Performed By: #### L 500.4050, L100.0100 ####[facility] [address] [place], [address] GAP 6 Normal 5-15 [facility] Comment on above: Performed By: #### L 500.4050, L100.0100 ####[facility] [address] [place], [address] GFR/1.73 sq M.predicted among non-blacks MDRD (S/P/Bld) [Vol rate/Area] 92 mL/min/{1.73_m2} Normal >60 [facility] Comment on above: Result Comment: Non- GFR Calc Performed By: #### L 500.4050, L100.0100 ####[facility] [address] [place], [address] Globulin (S) [Mass/Vol] 3.5 g/dL Normal 2.2-4.2 [facility] Comment on above: Performed By: #### L 500.4050, L100.0100 ####[facility] [address] [place], [address] Glucose [Mass/Vol] 131 mg/dL High 74-106 [facility] Comment on above: Result Comment: Fast ing Glucose result greater than or equal to 126 mg/dL suggests DIABETES MELLITUS per A.D.A. criteria. Performed By: #### L 500.4050, L100.0100 ####[facility] [address] [place], [address] Potassium [Moles/Vol] 4.0 mmol/L Normal 3.5-5.1 [facility] Comment on above: Performed By: #### L 500.4050, L100.0100 ####[facility] [address] [place], [address] Sodium [Moles/Vol] 137 mmol/L Normal 136-145 [facility] Comment on above: Performed By: #### L 500.4050, L100.0100 ####[facility] [address] [place], [address] T PROT 7.2 g/dL Normal 6.4-8.2 [facility] Comment on above: Performed By: #### L 500.4050, L100.0100 ####[facility] [address] [place], [address] Urea nitrogen [Mass/Vol] 24 mg/dL High 7-18 [facility] Comment on above: Performed By: #### L 500.4050, L100.0100 ####[facility] [address] [place], [address] Emergency Department Summary on 05-10-2024 Emergency Department Summary [facility] Medical Records Department [address] [place] [address] Emergency Department Summary 05/10/24 MR#: [id number] Acct: [id number] Name: JUNG ABURTO Rep #: [id number] : 1945 79 From: Mal Aleman DO PCP: Dr. Francheska Alonzo DO Status:DEP ER Location: ED HPI History of Present Illness Chief Complaint: Complaint Informant: patient Narrative Narrative: 79-year-old male presenting to the emergency room out of concern for urinary tract infection. Patient states he has a history of BPH and in the past had undergone a TURP. He states that beginning yesterday he noticed some dysuria and a feeling that he was not completely emptying his bladder. He notes he was having body pains and a temperature of 100.4. He has not had anything today for fever. Patient states he has had a history of UTIs in the distant past but none over the past many years. He denies any rashes. No flank pain. No history ureterolithiasis. He is a non- smoker. He denies any cough or URI/respiratory illness. [facility] Medical History Normal stress echocardiogram Gastritis Onofre esophagus Wears glasses Alcohol use Arthritis Back pain Hepatitis High cholesterol Gastric reflux Non-smoker History of edema History of echocardiogram History of stress test Cardiology follow-up encounter Hx of colonic polyp GERD (gastroesophageal reflux disease) Mitral valve annular calcification Chronic renal insufficiency Essential (primary) hypertension Raynaud disease Hyperlipidemia Palpitations Home Medications ???Medication ???Instructions ???Recorded ???Last Taken ???Type coenzyme Q10 30 mg capsule 30 mg PO DAILY 05/21/16 Unknown History multivitamin 1 ea PO DAILY 05/21/16 Unknown History cyanocobalamin (vitamin B-12) 2,000 mcg PO DAILY 04/22/17 Unknown History 2,000 mcg tablet ascorbic acid (vitamin C) 1,000 mg 1 g PO QDAY 09/25/17 Unknown History tablet s-adenosylmethionine 400 mg tablet 800 mg PO DAILY 10/10/21 Unknown History dexlansoprazole 60 mg 60 mg PO DAILY 01/08/22 03/02/24 History capsule,biphase delayed release (Dexilant) melatonin 12 mg tablet 12 mg PO QHS 10/16/22 Unknown History rosuvastatin 10 mg tablet 20 mg PO DAILY 10/16/22 11/28/22 History aspirin-sod bicarb-citric acid 325 1 tab PO PRN PRN BLOATING 11/30/22 Unknown History mg-1,916 mg-1,000 mg efferves tab (Maryjane-Denise Original) lisinopril 5 mg tablet 5 mg PO DAILY #90 tabs 09/25/23 03/02/24 Rx sulfamethoxazole 800 1 tab PO DAILY 10 days #10 tabs 05/10/24 Unknown Rx mg-trimethoprim 160 mg tablet (Bactrim DS) Allergy/AdvReac Type Severity Reaction Status Date / Time No Known Allergies Allergy Verified 05/10/24 10:25 Family History Father Cancer Colon cancer Mother , age 72 CAD (coronary artery disease) Hypertension Breast cancer Surgical History History of cardiac catheterization History of esophagogastroduodenosc opy (EGD) Hx of foot surgery Hx of colonoscopy Hx of hernia repair Hx of transurethral resection of prostate Hx of appendectomy History of hydrocelectomy Social History Smoking Status: Never smoker alcohol intake: current alcohol intake frequency: 0-2 drinks per day substance use type: does not use caffeine: Yes Type: coffee Number of servings: 4 ROS ROS ED Constitutional Constitutional ED: Reports chills and fever(s); Denies weight loss Eyes Eyes: Denies change in vision or diplopia ENT ENT ED: Denies ear pain, rhinorrhea or sore throat Cardiovascular Cardiovascular: Denies chest pain, orthopnea, palpitations or racing heartbeat Respiratory/Chest Respiratory/Chest: Denies cough, dyspnea or orthopnea Gastrointestinal Gastrointestinal: Denies abdominal pain, diarrhea, nausea or vomiting Genitourinary Genitourinary ED: Reports dysuria and urinary frequency; Denies hematuria Musculoskeletal Musculoskeletal: Reports arthralgias and myalgias Integumentary Denies abscess or rash Neurologic Neurologic: Denies headache(s) or weakness Psychiatric Psychiatric: Denies anxiety, depression, suicidal ideation or suicidal thoughts Endocrine Endocrinology: Denies polydipsia, polyphagia or polyuria Allergic/Immunologic Allergic/Immunologic ED: Denies mouth swelling, tongue swelling or urticaria EXAM Physical Exam Const Vital Signs: 05/10/24 10:25 05/10/24 10:27 05/10/24 11:27 Temperature 99.0 F 99.0 F 98.6 F Temperature Source Temporal Temporal Oral Pulse Rate 95 82 91 Respiratory Rate 18 16 18 Blood Pressure 139/71 H 137/84 H 137/71 H (more content not included)... Normal [facility] Urinalysis, Completeon 05-10 WBC 10-25 SEEN Normal 0-5 [facility] Comment on above: Order Comment: CLEAN CATCH Performed By: #### P P53 #### [facility] [address] [place], [place], [address] BACTERIA 0 SEEN Normal None Seen [facility] Comment on above: Order Comment: CLEAN CATCH Performed By: #### P P53 #### [facility] [address] [place], [address] EPI,SQUAMOUS 0 SEEN Normal 0-5 [facility] Comment on above: Order Comment: CLEAN CATCH Performed By: #### P P53 #### [facility] [address] [place], [address] Mucus Ql (Urine sed) [address] [facility] Comment on above: Order Comment: CLEAN CATCH Performed By: #### P P53 #### [facility] [address] [place], [address] RBC 0 SEEN Normal 0-5 [facility] Comment on above: Order Comment: CLEAN CATCH Performed By: #### P P53 #### [facility] [address] [place], [address] Lipid Profileon 04-02-2024 Cholesterol [Mass/Vol] 198 mg/dL Normal 200 [facility] Comment on above: Order Comment: PSA W /REFLEX FREE (PER ORDER) Result Comment: <200 mg/dL Desirable 200-240 mg/dL Borderline >240 mg/dL High Risk Performed By: #### P P53 #### [facility] [address] [place], [address] Cholesterol in HDL [Mass/Vol] 81 mg/dL Normal [facility] Comment on above: Order Comment: PSA W /REFLEX FREE (PER ORDER) Result Comment: The drugs N-Acetylcysteine and Metamizole may falsely depress this assay. Reference Range HDL <40 mg/dL Low HDL Cholesterol HDL >or= 60 mg/dL High HDL Cholesterol Performed By: #### P P53 #### [facility] [address] [place], [address] Cholesterol in LDL [Mass/Vol] 102 mg/dL Normal 0-130 [facility] Comment on above: Order Comment: PSA W /REFLEX FREE (PER ORDER) Performed By: #### P P53 #### [facility] [address] [place], [address] Cholesterol in VLDL [Mass/Vol] 15 mg/dL Normal 5-40 [facility] Comment on above: Order Comment: PSA W /REFLEX FREE (PER ORDER) Performed By: #### P P53 #### [facility] [address] [place], [address] Triglyceride [Mass/Vol] 76 mg/dL Normal [facility] Comment on above: Order Comment: PSA W /REFLEX FREE (PER ORDER) Result Comment: The drugs N-Acetylcysteine and Metamizole may falsely depress this assay. Serum Triglycerides Reference Interval Normal <150 mg/dL Borderline high 150 - 199 mg/dL High 200 - 499 mg/dL Very High > or = 500 mg/dL Performed By: #### P P53 #### [facility] [address] [place], [address] PSA,Total - Annual Screenon 04-02-2024 PSA,TOT SCREEN 1.35 ng/mL Normal 0.00-4.00 [facility] Comment on above: Order Comment: PSA W /REFLEX FREE (PER ORDER) Result Comment: This test was performed using the TPSA assay method for the [employer] chemistry system. Values obtained with different assay methods cannot be used interchangably. When changing PSA assays in the course of monitoring a patient, additional sequential testing should be carried out to confirm baseline values. Performed By: #### L 400.0001, L101.9900, L501.6710, L100.0100, L500.4050 #### [facility] [address] [place], [address] Vitamin D,25 Hydroxyon 04-02 Vitamin D 25-OH 55.7 ng/mL Normal [facility] Comment on above: Order Comment: PSA W /REFLEX FREE (PER ORDER) Result Comment: Lore min D 25(OH) Status Range Deficiency <20 ng/mL (50nmol/L) Insufficiency 20 - 30 ng/mL (50 - 75 nmol/L) Sufficiency 30 - 100 ng/mL (75 - 250 nmol/L) Toxicity >100 ng/mL (>250 nmol/L) Performed By: #### P P53 #### [facility] [address] [place], [address] Gastroenterology Visit Repor ton 03-20-2024 Gastroenterology Visit Report [facility] Gastroenterology [address] [place] [place] [address] OFFICE VISIT Date of Service: 03/20/24 MR#: [id number] Acct: [id number] Name: JUNG ABURTO Rep #: [id number] : 1945 Provider: David Parra DO Age/Sex: 78/M Location: [facility] [place] Status: Signed Intake Vital Signs 12/03/23 13:04 03/02/24 05:53 Height 6 ft 6 ft Intake Visit Reasons: Esophagogastroduodenosc opy Allergies No Known Allergies Allergy (Verified 03/02/24 05:51) Medications ???Medication ???Instructions ???Recorded ???Confirmed ???Type coenzyme Q10 30 mg capsule 30 mg PO DAILY 05/21/16 03/20/24 History multivitamin 1 ea PO DAILY 05/21/16 03/20/24 History cyanocobalamin (vitamin B-12) 2,000 mcg PO DAILY 04/22/17 03/20/24 History 2,000 mcg tablet ascorbic acid (vitamin C) 1,000 mg 1 g PO QDAY 09/25/17 03/20/24 History tablet s-adenosylmethionine 400 mg tablet 800 mg PO DAILY 10/10/21 03/20/24 History dexlansoprazole 60 mg 60 mg PO DAILY 01/08/22 03/20/24 History capsule,biphase delayed release (Dexilant) melatonin 12 mg tablet 12 mg PO QHS 10/16/22 03/20/24 History rosuvastatin 10 mg tablet 20 mg PO DAILY 10/16/22 03/20/24 History aspirin-sod bicarb-citric acid 325 1 tab PO PRN PRN BLOATING 11/30/22 03/20/24 History mg-1,916 mg-1,000 mg efferves tab (Maryjane-Pullman Original) lisinopril 5 mg tablet 5 mg PO DAILY #90 tabs 09/25/23 03/20/24 Rx Have you fallen in the past year?: No PFSH Medical History (Updated 02/25/24 @ 15:04 by Rachel Murphy) Normal stress echocardiogram Gastritis Onofre esophagus Wears glasses Alcohol use Arthritis Back pain Hepatitis High cholesterol Gastric reflux Non-smoker History of edema History of echocardiogram History of stress test Cardiology follow-up encounter Hx of colonic polyp GERD (gastroesophageal reflux disease) Mitral valve annular calcification Chronic renal insufficiency Essential (primary) hypertension Raynaud disease Hyperlipidemia Palpitations Surgical History (Updated 02/25/24 @ 15:04 by Rachel Murphy) History of cardiac catheterization History of esophagogastroduodenosc opy (EGD) Hx of foot surgery Hx of colonoscopy Hx of hernia repair Hx of transurethral resection of prostate Hx of appendectomy History of hydrocelectomy Family History Father Cancer Colon cancer Mother , age 72 CAD (coronary artery disease) Hypertension Breast cancer Social History Smoking Status: Never smoker alcohol intake: current alcohol intake frequency: 0-2 drinks per day substance use type: does not use caffeine: Yes Type: coffee Number of servings: 4 HPI HPI Details: JUNG ABURTO, is a 78 M who presents to the office today for follow up. EGD 24 Esophageal mucosal changes secondary to established short-segment Onofre's disease. Biopsied. Small hiatal hernia. Normal stomach. No gross lesions in the first portion of the duodenum. OV 7.12.24 pt reports that he is feeling well overall and denies GI symptoms of concern at this time. Pt reports that about 4 weeks ago he was diagnosed with Lyme disease, and has lost about 8 lbs since. Continues with dexilant. ROS Const Constitutional: Positive for weight change (weight loss); No fatigue or fever(s) ENT ENT: No difficulty swallowing Gastro GI: No abdominal pain, belching, bloating, change in bowel habits, change in stool character, coffee ground emesis, constipation, cramping, diarrhea, heartburn, difficulty swallowing, feeling full early, excessive flatus, incontinent of stools, Vomiting blood/hematemesis, Blood in stool, loose stools, Black,tarry stools, nausea/dyspepsia, pain with swallowing, vomiting or other Musc Musculoskeletal: Positive for back pain; No joint pain Skin Skin: Positive for lesions; No yellowing of the eye or itchy eyes Psych Psychiatric: No anxiety and No depression Endo Endocrine: Positive for weight change (weight loss); No fatigue Aller/Imm Allergy/Immunologic: No itchy eyes Tang/Lymp Hematologic/Lymphatic: No easy bleeding or easy bruising Exam Const General: cooperative, healthy appearing and comfortable Nutritional Appearance: average body habitus Orientation: alert, awake and oriented x3 Assessment and Plan Assessment and Plan (1) Onofre esophagus: Status: Chronic Plan: Discussed EGD findings, positive for Onofre's still, negative for dysplasia, continue PPI and J7edyidtz. Repeat EGD one yr Coding Level of Care Code Off vis,est,level 3 Diagnoses Onofre esophagus K22.70 Clinical Quality Measures Falls Risk Screening/Assistive Devices Have you fallen in the past year?: No 0 (more content not included)... Normal [facility] CBC W/Diff, Automatedon -10 17-2023 Absolute Lymph 0.81 X10 3/uL Low 0.83-4.51 [facility] Comment on above: Performed By: #### L 400.0001, L101.9900, L501.6710, L100.0100, L500.4050 #### [facility] [address] [place], [address] Absolute Neut 9.4 X10 3/uL High 2.0-7.7 [facility] Comment on above: Performed By: #### L 400.0001, L101.9900, L501.6710, L100.0100, L500.4050 #### [facility] [address] [place], [address] Basophils/100 WBC (Bld) 0.3 % Normal 0-1 [facility] Comment on above: Performed By: #### L 400.0001, L101.9900, L501.6710, L100.0100, L500.4050 #### [facility] [address] [place], [address] Eosinophils/100 WBC (Bld) 1.4 % Normal 0-5 [facility] Comment on above: Performed By: #### L 400.0001, L101.9900, L501.6710, L100.0100, L500.4050 #### [facility] [address] [place], [address] Erythrocyte distribution width (RBC) [Ratio] 11.9 % Normal 11.6-14.6 [facility] Comment on above: Performed By: #### L 400.0001, L101.9900, L501.6710, L100.0100, L500.4050 #### [facility] [address] [facility] [place], [address] Hematocrit (Bld) [Volume fraction] 37.8 % Low 40-54 [facility] Comment on above: Performed By: #### L 400.0001, L101.9900, L501.6710, L100.0100, L500.4050 #### [facility] [address] [place], [address] Hemoglobin (Bld) [Mass/Vol] 13.1 g/dL Normal 13.0-16.5 [facility] Comment on above: Performed By: #### L 400.0001, L101.9900, L501.6710, L100.0100, L500.4050 #### [facility] [address] [facility] [address] [place], [address] IG% 0.600 Normal 0.0-0.9 [facility] Comment on above: Result Comment: IG% - Immature Granulocytes (promyelocytes, myelocytes and metamyelocytes) > 1% indicates that a LEFT SHIFT is Present. Performed By: #### L 400.0001, L101.9900, L501.6710, L100.0100, L500.4050 #### [facility] [address] [place], [address] Lymphocytes/100 WBC (Bld) 7.4 % Low 19-41 [facility] Comment on above: Performed By: #### L 400.0001, L101.9900, L501.6710, L100.0100, L500.4050 #### [facility] [address] [place], [address] MCH (RBC) [Entitic mass] 34.0 pg High 27.0-32.0 [facility] Comment on above: Performed By: #### L 400.0001, L101.9900, L501.6710, L100.0100, L500.4050 #### [facility] [address] [place], [address] MCHC (RBC) [Mass/Vol] 34.7 g/dL Normal 32-36 [facility] Comment on above: Performed By: #### L 400.0001, L101.9900, L501.6710, L100.0100, L500.4050 #### [facility] [address] [place], [address] MCV (RBC) [Entitic vol] 98.2 fL High 80-94 [facility] Comment on above: Performed By: #### L 400.0001, L101.9900, L501.6710, L100.0100, L500.4050 #### [facility] [address] [place], [address] Monocytes/100 WBC (Bld) 3.9 % Normal 0-10 [facility] Comment on above: Performed By: #### L 400.0001, L101.9900, L501.6710, L100.0100, L500.4050 #### [facility] [address] [place], [address] Neutrophils/100 WBC (Bld) 86.4 % High 47-70 [facility] Comment on above: Performed By: #### L 400.0001, L101.9900, L501.6710, L100.0100, L500.4050 #### [facility] [address] [place], [address] Nucleated RBC (Bld) [#/Vol] 0 10*3/uL Normal 0-5 [facility] Comment on above: Performed By: #### L 400.0001, L101.9900, L501.6710, L100.0100, L500.4050 #### [facility] [address] [place], [address] Platelet mean volume (Bld) [Entitic vol] 11.4 fL Normal 6.2-12.0 [facility] Comment on above: Performed By: #### L 400.0001, L101.9900, L501.6710, L100.0100, L500.4050 #### [facility] [address] [place], [address] Platelets (Bld) [#/Vol] 242 10*3/uL Normal 150-450 [facility] Comment on above: Performed By: #### L 400.0001, L101.9900, L501.6710, L100.0100, L500.4050 #### [facility] [address] [place], [address] RBC (Bld) [#/Vol] 3.85 10*6/uL Low 4.6-6.2 [facility] Comment on above: Performed By: #### L 400.0001, L101.9900, L501.6710, L100.0100, L500.4050 #### [facility] [address] [place], [address] RDW SD 42.6 fl Normal 35.1-43.9 [facility] Comment on above: Performed By: #### L 400.0001, L101.9900, L501.6710, L100.0100, L500.4050 #### [facility] [address] [place], [address] WBC (Bld) [#/Vol] 10.9 10*3/uL Normal 4.4-11.0 [facility] Comment on above: Performed By: #### L 400.0001, L101.9900, L501.6710, L100.0100, L500.4050 #### [facility] [address] [place], [address] CRPon 03-06-2024 C-REACTIVE PROT 139.00 mg/L High 0.0-3.0 [facility] Comment on above: Result Comment: C-Re active Protein (CRP) provides useful information for the diagnosis, therapy and monitoring of inflammatory processes and associated diseases. For the evaluation of Relative Risk for Cardiovascular Disease, a High Sensitivity CRP (HSCRP) should be ordered. Performed By: #### L 400.0001, L101.9900, L501.6710, L100.0100, L500.4050 #### [facility] [address] [place], [address] Comprehensive Metabolic Prof ilon 03-06-2024 Albumin [Mass/Vol] 3.5 g/dL Normal 3.2-5.0 [facility] Comment on above: Performed By: #### L 400.0001, L101.9900, L501.6710, L100.0100, L500.4050 #### [facility] [address] [place], [address] Albumin/Globulin [Mass ratio] 1.1 {ratio} Normal 0.9-2.4 [facility] Comment on above: Performed By: #### L 400.0001, L101.9900, L501.6710, L100.0100, L500.4050 #### [facility] [address] [place], [address] ALK P 118 U/L High 45-117 [facility] Comment on above: Performed By: #### L 400.0001, L101.9900, L501.6710, L100.0100, L500.4050 #### [facility] [address] [place], [address] ALT [Catalytic activity/Vol] 54 U/L Normal 16-61 [facility] Comment on above: Performed By: #### L 400.0001, L101.9900, L501.6710, L100.0100, L500.4050 #### [facility] [address] [place], [address] AST [Catalytic activity/Vol] 27 U/L Normal 15-37 [facility] Comment on above: Performed By: #### L 400.0001, L101.9900, L501.6710, L100.0100, L500.4050 #### [facility] [address] [place], [address] Bilirubin [Mass/Vol] 0.50 mg/dL Normal 0.20-1.00 [facility] Comment on above: Result Comment: For patients on eltrombopag therapy, use of Dimension Clifford TBIL is not recommended. Performed By: #### L 400.0001, L101.9900, L501.6710, L100.0100, L500.4050 #### [facility] [address] [place], [address] BUN/CRE 42.6 RATIO High 10-20 [facility] Comment on above: Performed By: #### L 400.0001, L101.9900, L501.6710, L100.0100, L500.4050 #### [facility] [address] [place], [address] CA,Total 8.9 mg/dL Normal 8.5-10.1 [facility] Comment on above: Performed By: #### L 400.0001, L101.9900, L501.6710, L100.0100, L500.4050 #### [facility] [address] [place], [address] Chloride [Moles/Vol] 100 mmol/L Normal 98-107 [facility] Comment on above: Performed By: #### L 400.0001, L101.9900, L501.6710, L100.0100, L500.4050 #### [facility] [address] [place], [address] CO2 [Moles/Vol] 26.0 mmol/L Normal 21.0-32.0 [facility] Comment on above: Performed By: #### L 400.0001, L101.9900, L501.6710, L100.0100, L500.4050 #### [facility] [address] [place], [address] Creatinine [Mass/Vol] 0.73 mg/dL Normal 0.70-1.30 [facility] Comment on above: Result Comment: The validity of the calculated GFR GFRAA in patients over 70 years has not been determined. Clinical correlation is essential. Performed By: #### L 400.0001, L101.9900, L501.6710, L100.0100, L500.4050 #### [facility] [address] [place], [address] EST GFR - AA 134 mL/min Normal >60 [facility] Comment on above: Result Comment: Afri can Gambian GFR Calc Performed By: #### L 400.0001, L101.9900, L501.6710, L100.0100, L500.4050 #### [facility] [address] [place], [address] GAP 7 Normal 5-15 [facility] Comment on above: Performed By: #### L 400.0001, L101.9900, L501.6710, L100.0100, L500.4050 #### [facility] [address] [place], [address] GFR/1.73 sq M.predicted among non-blacks MDRD (S/P/Bld) [Vol rate/Area] 111 mL/min/{1.73_m2} Normal >60 [facility] Comment on above: Result Comment: Non- GFR Calc Performed By: #### L 400.0001, L101.9900, L501.6710, L100.0100, L500.4050 #### [facility] [address] [place], [address] Globulin (S) [Mass/Vol] 3.2 g/dL Normal 2.2-4.2 [facility] Comment on above: Performed By: #### L 400.0001, L101.9900, L501.6710, L100.0100, L500.4050 #### [facility] [address] [place], [address] Glucose [Mass/Vol] 104 mg/dL Normal 74-106 [facility] Comment on above: Result Comment: Fast ing Glucose result from 100 to 125 mg/dL suggests IMPAIRED HOMEOSTASIS per A.D.A. criteria. Performed By: #### L 400.0001, L101.9900, L501.6710, L100.0100, L500.4050 #### [facility] [address] [place], [address] Potassium [Moles/Vol] 4.8 mmol/L Normal 3.5-5.1 [facility] Comment on above: Performed By: #### L 400.0001, L101.9900, L501.6710, L100.0100, L500.4050 #### [facility] [address] [place], [address] Sodium [Moles/Vol] 133 mmol/L Low 136-145 [facility] Comment on above: Performed By: #### L 400.0001, L101.9900, L501.6710, L100.0100, L500.4050 #### [facility] [address] [place], [address] T PROT 6.7 g/dL Normal 6.4-8.2 [facility] Comment on above: Performed By: #### L 400.0001, L101.9900, L501.6710, L100.0100, L500.4050 #### [facility] [address] [place], [address] Urea nitrogen [Mass/Vol] 31 mg/dL High 7-18 [facility] Comment on above: Performed By: #### L 400.0001, L101.9900, L501.6710, L100.0100, L500.4050 #### [facility] [address] [place], [address] Erythrocyte Sed Rateon 03-06 SED RATE 6 mm/hr Normal 0-20 [facility] Comment on above: Performed By: #### L 400.0001, L101.9900, L501.6710, L100.0100, L500.4050 #### [facility] [address] [place], [address] Urinalysis, Completeon 03-06 RBC 0-5 SEEN Normal 0-5 [facility] Comment on above: Order Comment: Urine , Random Performed By: #### L 400.0001, L101.9900, L501.6710, L100.0100, L500.4050 #### [facility] [address] [place], [address] WBC 0-5 SEEN Normal 0-5 [facility] Comment on above: Order Comment: Urine , Random Performed By: #### L 400.0001, L101.9900, L501.6710, L100.0100, L500.4050 #### [facility] [address] [place], [address] BACTERIA 0 SEEN Normal None Seen [facility] Comment on above: Order Comment: Urine , Random Performed By: #### L 400.0001, L101.9900, L501.6710, L100.0100, L500.4050 #### [facility] [address] [place], [address] EPI,SQUAMOUS 0 SEEN Normal 0-5 [facility] Comment on above: Order Comment: Urine , Random Performed By: #### L 400.0001, L101.9900, L501.6710, L100.0100, L500.4050 #### [facility] [address] [place], [address] Mucus Ql (Urine sed) [address] [facility] Comment on above: Order Comment: Urine , Random Performed By: #### L 400.0001, L101.9900, L501.6710, L100.0100, L500.4050 #### [facility] [address] [place], [address] EGD Reporton 03-02-2024 EGD Report [facility] Medical Records Department [address] [place] [address] EGD Report MR#: [id number] Acct: [id number] Name: JUNG ABURTO Rep #: [id number] : 1945 78 From: David Parra DO PCP: Dr. Francheska Alonzo DO Status:[facility] Patient Name: Jung Aburto Procedure Date: 03/02/2024 6:12 AM Date of : 1945 Age: 78 Procedure: Upper GI endoscopy Indications: Onofre's esophagus Providers: David Parra DO Medicines: Monitored Anesthesia Care Patient Profile: This is a 78 year old male. Refer to note in [...] Prior Anticoagulants: The patient has taken no anticoagulant or antiplatelet agents. ASA Grade Assessment: [...] patient tolerated the procedure well. Scope In: 6:47:58 AM Scope Out: 6:51:28 AM Total Procedure Duration Time 0 hours 3 minutes 30 seconds Findings: There were esophageal mucosal changes secondary to established short-segment Onofre's disease present in the lower third of the esophagus. The maximum longitudinal extent of these mucosal changes was 3 cm in length. Mucosa was biopsied with a cold forceps for histology in a targeted manner and in 4 quadrants at intervals of 1 cm in the lower third of the esophagus. One specimen bottle was sent to pathology. Verification of patient identification for the specimen was done. Estimated blood loss was minimal. A small hiatal hernia was present. The entire examined stomach was normal. No gross lesions were noted in the first portion of the duodenum. Impression: - Esophageal mucosal changes secondary to established short-segment Onofre's disease. Biopsied. - Small hiatal hernia. - Normal stomach. - No gross lesions in the first portion of the duodenum. Recommendation: - Discharge patient to home. - Resume previous diet. - Continue present medications. - Await pathology results. - Repeat upper endoscopy in 1 year for surveillance. Procedure Code(s): --- Professional --- 76932, Esophagogastroduodenosc opy, flexible, transoral; with biopsy, single or multiple CPT copyright 2021 [employer]. All rights reserved. The codes documented in this report are preliminary and upon skip pitman review may be revised to meet current compliance requirements. David Parra DO 03/02/2024 6:59:26 AM This report has been signed electronically. Number of Addenda: 0 Note Initiated On: 03/02/2024 6:12 AM 03/02/24 0700 Date David Parra DO Cosigner Signature: Date (if indicated) CC: Dr. Francheska Alonzo DO; David Parra DO Date Dictated: 03/02/24611 Date Transcribed: Parts Representative: PRAVIN Signed [facility] MR/POSTOP.[facility] 03-02-2024 MR/POSTOP.[facility] Medical Records Department [address] [place] [address] Anesthesia Postop Eval I 03/02/24655 MR#: [id number] Acct: [id number] Name: JUNG ABURTO Rep #: [id number] : 1945 78 From: Leo Bloom PCP: Dr. Francheska Alonzo DO Status:REG SDC Y Race: C Location: [place] [address] Anesthesia: Postop Eval I Current Vital Signs Temperature: 98.6 F Pulse Rate: 65 Blood Pressure: 113/73 Respiratory Rate: 16 Pulse Ox: 99 Oxygen Delivery Method: Room Air Assessment Airway patent: Yes Spontaneous unlabored respirations: Yes Mental status: Awake and Calm nausea: No Vomiting: No Anesthesia Complication: No Fluid Hydration Crystalloid volume administer (ml): 400 Total IV fluid infused: 400 Progress Note Anesthesia document: Postop Eval 1 completed: Yes 03/02/24 0732 Date Leo Marcano Signature: Date CC: Signed Normal [facility] MR/[id number] 03-02-2024 MR/POSTOPAN2 [facility] Medical Records Department [address] [facility] [place] [address] Anesthesia Postop Eval II 03/02/24 1300 MR#: [id number] Acct: [id number] Name: JUNG ABURTO Rep #: [id number] : 1945 78 From: Drake Reilly MD PCP: Dr. Francheska Alonzo, DO Status:[facility] Y Race: C Location: EN Anesthesia Postop Eval I Sum Postop Eval Completion status Anesthesia document: Postop Eval 1 completed: Yes Anesthesia Postop Eval I Summary Anesthesia Postop Eval I Summary: Anesthesia Postop Eval I: Assessment Summary Airway patent Yes 03/02/24 07:32 [email or web address] Spontaneous unlabored Yes 03/02/24 07:32 [email or web address] respirations Mental status Awake,Calm 03/02/24 07:32 [email or web address] nausea No 03/02/24 07:32 [email or web address] Vomiting No 03/02/24 07:32 [email or web address] Anesthesia Postop Eval I: Fluid Summary Crystalloid volume administer 400 03/02/24 07:32 [email or web address] (ml) Colloids volume administered ( ml) Blood Product volume administered (ml) Total IV fluid infused 400 03/02/24 07:32 [email or web address] Anesthesia Postop Eval I: Summary Notes Anesthesia Complication No 03/02/24 07:32 [email or web address] Anesthesia Complication Comment: Post-operative progress note Anesthesia: Postop Eval II Evaluation Mental status: Awake and Calm Pain Level: 0 nausea: No Vomiting: No Complications Anesthesia Complication: No 03/02/24 1301 Date Drake Marcano Signature: Date CC: Signed Normal [facility] P53 (initial)on 03-02-2024 P53 (initial) --- Patient Age/Sex Location Account Attending Physician JUNG ABURTO 78/M EN [id number] David Parra DO Specimen: [id number] Received: 03/03/24 Status: AUBREY Davis Num: [id number] Spec Type: IMMUNO Subm Dr: David Parra, PHYSICIAN INSTITUTION [place] [address] SPECIMEN INFORMATION: Tissue Source: Distal esophagus biopsy Clinical Info: Onofre's esophagus Specimen Number: [id number] CPT code: 95105, 22391 METHODOLOGY: Deparaffinized sections of prefer/formalin-fixed tissue or PAP/DQ stained slides are incubated with monoclonal/polyclonal antibodies/oligonucleot dali probes. Localization is made via biotin free immunoperoxidase method. Appropriate controls are performed and reacted as expected. Results on target cell population are indicated in the following table: RESULTS: ANTIBODY / CLONE RESULT P53 (DO-7) positive, focal (wild type pattern) Ki-67 (30-9) positive, low These tests were developed and their performance characteristics determined by [facility]. They may not have been cleared or approved by the U.S. Food and Drug Administration. The FDA has determined that such clearance or approval is not necessary. The above immunohistochemical/halie Cecilia markers are ordered and reviewed by the Pathologist. INTERPRETATION: Distal esophagus, biopsy: Negative for dysplasia. JASPREET/ 03/04/2024 Signed (signature on file) Dr. Anton Hawkins MD 03/04/[address] [facility] Comment on above: Performed By: #### P P53 #### [facility] [address] [place], [place], [address] Special Stain Group Ion 02-08 Special Stain Group I ----- Patient Age/Sex Location Account Attending Physician JUNG ABURTOOLPH 78/M EN [id number] David Parra DO Specimen: [id number] Received: 03/02/24-1050 Status: AUBREY Browningjose Num: [id number] Spec Type: EGD BIOPSY Subm Dr: David Parra DO HEADER OPERATION: EGD with biopsy PRE-OP DIAGNOSIS: Barretts esophagus TISSUE SUBMITTED: Distal esophagus biopsy MICROSCOPIC DIAGNOSIS Distal esophagus, biopsy: Fragments of gastroesophageal mucosa with focal intestinal metaplasia (goblet cell metaplasia), consistent with Onofre's esophagus. Chronic inflammation. Negative for dysplasia. See comment. / 03/03/2024 COMMENT Immunohistochemistry (RF24-) for P53 and Ki-67 will be performed and results will be reported separately. Alcian blue/PAS stain with matched control is used in the evaluation of the specimen. MICROSCOPIC DESCRIPTION Slides are reviewed. GROSS DESCRIPTION Received in fixative is one container labeled with the patient's name and designated Distal esophagus biopsy. The specimen consists of multiple irregular fragments of light rick soft tissue that in aggregate measure 1.6 x 0.5 x 0.1 cm. The specimen is totally submitted in one cassette. [facility] 03/02/2024 TC:5 CPT:13440,61275 Patient Age/Sex Location Account Attending Physician JUNG ABURTO 78/M EN [id number] David Parra DO Signed (signature on file) Dr. Anton Hawkins MD 03/04/[address] [facility] Comment on above: Performed By: #### P P53 #### [facility] [place], [address] Absolute lymphocyte countOrd ered By: Francheska Alonzo on 12-25-2023 Lymphocytes Auto (Unsp spec) [#/Vol] 1.33 10*3/uL 0.83-4.51 [facility] Automated lymphocyte count a s percentage of total leukocytesOrdered By: Francheska Alonzo on 12-25-2023 Lymphocytes/100 WBC Auto (Unsp spec) 22.1 % 19-41 [facility] Basophil percentageOrdered B y: Francheska Alonzo on 12-25-2023 Basophils/100 WBC (Bld) 1.2 % 0-1 [facility] Bilirubin [Mass/Vol] 0.30 mg/dL 0.20-1.00 [facility] Comment on above: For patients on eltr ombopag therapy, use of Dimension Clifford TBIL is not recommended. Chloride [Moles/Vol] 106 mmol/L 98-107 [facility] Cholesterol [Mass/Vol] 198 mg/dL <200 [facility] Comment on above: <200 mg/dL Desirable 200-240 mg/dL Borderline >240 mg/dL High Risk Eosinophils/100 WBC (Bld) 11.1 % 0-5 [facility] Glucose [Mass/Vol] 91 mg/dL 74-106 [facility] Hemoglobin (Bld) [Mass/Vol] 15.2 g/dL 13.0-16.5 [facility] Monocytes/100 WBC (Bld) 8.1 % 0-10 [facility] Neutrophils (Bld) [#/Vol] 3.4 10*3/uL 2.0-7.7 [facility] Neutrophils/100 WBC (Bld) 57.0 % 47-70 [facility] Potassium [Moles/Vol] 4.6 mmol/L 3.5-5.1 [facility] Protein [Mass/Vol] 7.2 g/dL 6.4-8.2 [facility] Sodium [Moles/Vol] 137 mmol/L 136-145 [facility] Triglyceride [Mass/Vol] 75 mg/dL <199 [facility] Comment on above: The drugs N-Acetylcy steine and Metamizole may falsely depress this assay.Serum Triglycerides Reference Interval Normal <150 mg/dL Borderline high 150 - 199 mg/dL High 200 - 499 mg/dL Very High > or = 500 mg/dL WBC (Bld) [#/Vol] 6.0 10*3/uL 4.4-11.0 [facility] Culture, urineOrdered By: Jerez on 12-25-2023 Bacteria identified Cx Nom (U) Culture exhibits no growth. [facility] Determination of erythrocyte mean corpuscular volume (MCV)Ordered By: Francheska on 12-25-2023 MCV (RBC) [Entitic vol] 98.4 fL 80-94 [facility] Erythrocyte distribution wid th ratioOrdered By: Francheska on 12-25-2023 Erythrocyte distribution width (RBC) [Ratio] 12.5 % 11.6-14.6 [facility] Erythrocyte distribution wid th standard deviationOrdered By: [facility] on 12-25-2023 Erythrocyte distribution width (RBC) [Entitic vol] 45.2 fL 35.1-43.9 [facility] Hematocrit Auto (Bld) [Volum e fraction]Ordered By: Francheska on 12-25-2023 Hematocrit (Bld) [Volume fraction] 43.7 % 40-54 [facility] Immature granulocytes/100 WB C Auto (Bld)Ordered By: [facility] on 12-25-2023 Immature granulocytes/100 WBC (Bld) 0.500 % 0.0-0.9 [facility] Comment on above: IG% - Immature Granu locytes (promyelocytes, myelocytes and metamyelocytes) > 1% indicates that a LEFT SHIFT is Present. Laboratory - Chemistry and C hemistry - challengeOrdered By: Francheska [facility] on 12-25-2023 Albumin/Globulin [Mass ratio] 1.2 {ratio} 0.9-2.4 [facility] ALP [Catalytic activity/Vol] 75 U/L 45-117 [facility] ALT [Catalytic activity/Vol] 25 U/L 16-61 [facility] Cholesterol in HDL [Mass/Vol] 75 mg/dL >40 [facility] Comment on above: The drugs N-Acetylcy steine and Metamizole may falsely depress this assay. Reference Range HDL <40 mg/dL Low HDL Cholesterol HDL >or= 60 mg/dL High HDL Cholesterol Cholesterol in LDL [Mass/Vol] 108 mg/dL 0-130 [facility] CO2 [Moles/Vol] 29.0 mmol/L 21.0-32.0 [facility] Globulin (S) [Mass/Vol] 3.2 g/dL 2.2-4.2 [facility] Urea nitrogen/Creatinine [Mass ratio] 31.5 mg/mg 10-20 [facility] - Hematology and Cell countsOrdered By: Francheskaquinn Alonzo on 12-25-2023 MCH (RBC) [Entitic mass] 34.2 pg 27.0-32.0 [facility] MCHC (RBC) [Mass/Vol] 34.8 g/dL 32-36 [facility] Nucleated RBC/100 WBC (Bld) [Ratio] 0 % 0-5 [facility] Platelet mean volume (Bld) [Entitic vol] 10.4 fL 6.2-12.0 [facility] Platelets (Bld) [#/Vol] 195 10*3/uL 150-450 [facility] No Panel InformationOrdered By: Francheska Alonzo on 12-25-2023 Estimated GFR (MDRD) Amer 116 mL/min >60 [facility] Comment on above: GFR Calc Estimated GFR (MDRD) Non-Af Amer 96 mL/min >60 [facility] Comment on above: Non- GFR Calc VLDL Cholesterol 15 mg/dL 5-40 [facility] RBC Auto (Bld) [#/Vol]Ordere d By: Francheska on 12-25-2023 RBC (Bld) [#/Vol] 4.44 10*6/uL 4.6-6.2 [facility] Serum or plasma calcium pauline urement (mass/volume)Ordered By: Francheska Fast on 12-25-2023 Calcium [Mass/Vol] 8.9 mg/dL 8.5-10.1 [facility] Serum or plasma creatinine m easurement (mass/volume)Ordered By: Francheska on 12-25-2023 Creatinine [Mass/Vol] 0.82 mg/dL 0.70-1.30 [facility] Comment on above: The validity of the calculated GFR & GFRAA in patients over 70 years has not been determined. Clinical correlation is essential. Serum or plasma urea nitroge n measurement (mass/volume)Ordered By: Francheska Alonzo on 12-25-2023 Urea nitrogen [Mass/Vol] 26 mg/dL 7-18 [facility] Thin prep Papanicolaou smear with manual screeningOrdered By: Francheskaquinn Alonzo on 12-25-2023 Thin prep Papanicolaou smear with manual screening 4.0 g/dL 3.2-5.0 [facility] Thin prep Papanicolaou smear with manual screening 19 U/L 15-37 [facility] Thin prep Papanicolaou smear with manual screening 2 5-15 [facility] Absolute lymphocyte countOrd ered By: Francheskaquinn Alonzo on 05-29-2023 Lymphocytes Auto (Unsp spec) [#/Vol] 1.36 10*3/uL 0.83-4.51 [facility] Basophil percentageOrdered B y: Francheska Alonzo on 05-29-2023 Basophils/100 WBC (Bld) 0.9 % 0-1 [facility] Bilirubin [Mass/Vol] 0.60 mg/dL 0.20-1.00 [facility] Comment on above: For patients on eltr ombopag therapy, use of Dimension Clifford TBIL is not recommended. Chloride [Moles/Vol] 108 mmol/L 98-107 [facility] Cholesterol [Mass/Vol] 195 mg/dL <200 [facility] Comment on above: <200 mg/dL Desirable 200-240 mg/dL Borderline >240 mg/dL High Risk Eosinophils/100 WBC (Bld) 7.8 % 0-5 [facility] Glucose [Mass/Vol] 91 mg/dL 74-106 [facility] Neutrophils (Bld) [#/Vol] 3.3 10*3/uL 2.0-7.7 [facility] Neutrophils/100 WBC (Bld) 58.6 % 47-70 [facility] Potassium [Moles/Vol] 4.1 mmol/L 3.5-5.1 [facility] Protein [Mass/Vol] 7.1 g/dL 6.4-8.2 [facility] Sodium [Moles/Vol] 139 mmol/L 136-145 [facility] Triglyceride [Mass/Vol] 92 mg/dL <199 [facility] Comment on above: The drugs N-Acetylcy steine and Metamizole may falsely depress this assay.Serum Triglycerides Reference Interval Normal <150 mg/dL Borderline high 150 - 199 mg/dL High 200 - 499 mg/dL Very High > or = 500 mg/dL WBC (Bld) [#/Vol] 5.6 10*3/uL 4.4-11.0 [facility] Blood erythrocytes count (nu mber/volume)Ordered By: Francheska on 05-29-2023 RBC (Bld) [#/Vol] 4.51 10*6/uL 4.6-6.2 [facility] Blood hemoglobin measurement (mass/volume)Ordered By: Francheska on 05-29-2023 Hemoglobin (Bld) [Mass/Vol] 15.4 g/dL 13.0-16.5 [facility] Blood lymphocytes/100 leukoc ytesOrdered By: Francheska on 05-29-2023 Lymphocytes/100 WBC (Bld) 24.2 % 19-41 [facility] Blood monocytes/100 leukocyt esOrdered By: [facility] on 05-29-2023 Monocytes/100 WBC (Bld) 8.3 % 0-10 [facility] Blood platelet mean volumeOr dered By: [facility] on 05-29-2023 Platelet mean volume (Bld) [Entitic vol] 11.7 fL 6.2-12.0 [facility] Determination of erythrocyte mean corpuscular volume (MCV)Ordered By: Francheska on 05-29-2023 MCV (RBC) [Entitic vol] 99.8 fL 80-94 [facility] Erythrocyte sedimentation ra teOrdered By: Francheska 05-29-2023 ESR (Bld) [Velocity] mm/h 0-20 [facility] Hematocrit Auto (Bld) [Volum e fraction]Ordered By: [facility] on 05-29-2023 Hematocrit (Bld) [Volume fraction] 45.0 % 40-54 [facility] - Chemistry and C hemistry - challengeOrdered By: Francheska on 05-29-2023 ALP [Catalytic activity/Vol] 82 U/L 45-117 [facility] ALT [Catalytic activity/Vol] 31 U/L 16-61 [facility] CO2 [Moles/Vol] 27.0 mmol/L 21.0-32.0 [facility] Globulin (S) [Mass/Vol] 2.9 g/dL 2.2-4.2 [facility] Urea nitrogen/Creatinine [Mass ratio] 22.7 mg/mg 10-20 [facility] - Hematology and Cell countsOrdered By: Francheska Alonzo on 05-29-2023 Erythrocyte distribution width (RBC) [Entitic vol] 45.7 fL 35.1-43.9 [facility] Erythrocyte distribution width (RBC) [Ratio] 12.4 % 11.6-14.6 [facility] Immature granulocytes/100 WBC (Bld) 0.200 % 0.0-0.9 [facility] Comment on above: IG% - Immature Granu locytes (promyelocytes, myelocytes and metamyelocytes) > 1% indicates that a LEFT SHIFT is Present. MCH (RBC) [Entitic mass] 34.1 pg 27.0-32.0 [facility] Nucleated RBC/100 WBC (Bld) [Ratio] 0 % 0-5 [facility] MCHC Auto (RBC) [Mass/Vol]Or dered By: Francheska Alonzo on 05-29-2023 MCHC (RBC) [Mass/Vol] 34.2 g/dL 32-36 [facility] No Panel InformationOrdered By: Francheska Alonzo on 05-29-2023 Anti-Nuclear Antibody Screen Negative Negative [facility] Comment on above: Performed at: [address] [id number] Director: Brennan Pascual PhD, Phone: [phone] Estimated GFR (MDRD) Amer 122 mL/min >60 [facility] Comment on above: GFR Calc Estimated GFR (MDRD) Non-Af Amer 101 mL/min >60 [facility] Comment on above: Non- GFR Calc Platelets bldOrdered By: Faby Alonzo on 05-29-2023 Platelets (Bld) [#/Vol] 178 10*3/uL 150-450 [facility] Serum or plasma C reactive p rotein measurement (mass/volume)Ordered By: Francheska Alonzo on 05-29-2023 CRP [Mass/Vol] mg/L 0.0-3.0 [facility] Comment on above: C-Reactive Protein ( CRP) provides useful information for thediagnosis, therapy and monitoring of inflammatory processesand associated diseases. For the evaluation of Relative Riskfor Cardiovascular Disease, a High Sensitivity CRP (HSCRP)should be ordered. Serum or plasma albumin pauline urement (mass/volume)Ordered By: Francheska on 05-29-2023 Albumin [Mass/Vol] 4.2 g/dL 3.2-5.0 [facility] Serum or plasma albumin/glob ulin mass ratioOrdered By: on 05-29-2023 Albumin/Globulin [Mass ratio] 1.4 {ratio} 0.9-2.4 [facility] Serum or plasma calcium pauline urement (mass/volume)Ordered By: on 05-29-2023 Calcium [Mass/Vol] 9.2 mg/dL 8.5-10.1 [facility] Serum or plasma cholesterol in HDL measurement (mass/volume)Ordered By: 05-29-2023 Cholesterol in HDL [Mass/Vol] 80 mg/dL >40 [facility] Comment on above: The drugs N-Acetylcy steine and Metamizole may falsely depress this assay. Reference Range HDL <40 mg/dL Low HDL Cholesterol HDL >or= 60 mg/dL High HDL Cholesterol Serum or plasma cholesterol in VLDL measurement (mass/volume)Ordered By: on 05-29-2023 Cholesterol in VLDL [Mass/Vol] 18 mg/dL 5-40 [facility] Serum or plasma creatinine m easurement (mass/volume)Ordered By: 05-29-2023 Creatinine [Mass/Vol] 0.79 mg/dL 0.70-1.30 [facility] Comment on above: The validity of the calculated GFR & GFRAA in patients over 70 years has not been determined. Clinical correlation is essential. Serum or plasma low density lipoprotein (LDL) cholesterol measurement (mass/volume)Ordered By: on 05-29-2023 Cholesterol in LDL [Mass/Vol] 97 mg/dL 0-130 [facility] Serum or plasma urea nitroge n measurement (mass/volume)Ordered By: 05-29-2023 Urea nitrogen [Mass/Vol] 18 mg/dL 7-18 [facility] Serum rheumatoid factor dete ctionOrdered By: Francheska Alonzo on 05-29-2023 Rheumatoid factor Ql (S) < 10.0 IU/mL <15 [facility] Thin prep Papanicolaou smear with manual screeningOrdered By: Francheska Alonzo on 05-29-2023 Thin prep Papanicolaou smear with manual screening 20 U/L 15-37 [facility] Thin prep Papanicolaou smear with manual screening 4 5-15 [facility] Absolute lymphocyte countOrd ered By: Dr. Alonzo on 02-22-2023 Lymphocytes Auto (Unsp spec) [#/Vol] 1.40 10*3/uL 0.83-4.51 [facility] Basophil percentageOrdered B y: Dr. Alonzo on 02-22-2023 Basophils/100 WBC (Bld) 0.9 % 0-1 [facility] Bilirubin [Mass/Vol] 0.60 mg/dL 0.20-1.00 [facility] Comment on above: For patients on eltr ombopag therapy, use of Dimension Clifford TBIL is not recommended. Chloride [Moles/Vol] 106 mmol/L 98-107 [facility] Cholesterol [Mass/Vol] 205 mg/dL <200 [facility] Comment on above: <200 mg/dL Desirable 200-240 mg/dL Borderline >240 mg/dL High Risk Eosinophils/100 WBC (Bld) 6.7 % 0-5 [facility] Glucose [Mass/Vol] 88 mg/dL 74-106 [facility] Neutrophils (Bld) [#/Vol] 3.4 10*3/uL 2.0-7.7 [facility] Neutrophils/100 WBC (Bld) 59.0 % 47-70 [facility] Potassium [Moles/Vol] 4.5 mmol/L 3.5-5.1 [facility] Protein [Mass/Vol] 7.1 g/dL 6.4-8.2 [facility] Sodium [Moles/Vol] 140 mmol/L 136-145 [facility] Triglyceride [Mass/Vol] 112 mg/dL <199 [facility] Comment on above: The drugs N-Acetylcy steine and Metamizole may falsely depress this assay.Serum Triglycerides Reference Interval Normal <150 mg/dL Borderline high 150 - 199 mg/dL High 200 - 499 mg/dL Very High > or = 500 mg/dL WBC (Bld) [#/Vol] 5.7 10*3/uL 4.4-11.0 [facility] Blood erythrocytes count (nu mber/volume)Ordered By: Dr. Alonzo on 02-22-2023 RBC (Bld) [#/Vol] 4.57 10*6/uL 4.6-6.2 [facility] Blood hemoglobin measurement (mass/volume)Ordered By: Dr. Alonzo on 02-22-2023 Hemoglobin (Bld) [Mass/Vol] 15.9 g/dL 13.0-16.5 [facility] Blood lymphocytes/100 leukoc ytesOrdered By: Dr. Alonzo on 02-22-2023 Lymphocytes/100 WBC (Bld) 24.6 % 19-41 [facility] Blood monocytes/100 leukocyt esOrdered By: Dr. Alonzo on 02-22-2023 Monocytes/100 WBC (Bld) 8.6 % 0-10 [facility] Blood platelet mean volumeOr dered By: Dr. Alonzo on 02-22-2023 Platelet mean volume (Bld) [Entitic vol] 11.1 fL 6.2-12.0 [facility] Determination of erythrocyte mean corpuscular volume (MCV)Ordered By: Dr. Alonzo on 02-22-2023 MCV (RBC) [Entitic vol] 99.3 fL 80-94 [facility] Hematocrit Auto (Bld) [Volum e fraction]Ordered By: Dr. Alonzo on 02-22-2023 Hematocrit (Bld) [Volume fraction] 45.4 % 40-54 [facility] Laboratory - Chemistry and C hemistry - challengeOrdered By: Dr. Alonzo on 02-22-2023 ALP [Catalytic activity/Vol] 83 U/L 45-117 [facility] ALT [Catalytic activity/Vol] 27 U/L 16-61 [facility] CO2 [Moles/Vol] 25.0 mmol/L 21.0-32.0 [facility] Globulin (S) [Mass/Vol] 3.1 g/dL 2.2-4.2 [facility] Urea nitrogen/Creatinine [Mass ratio] 23.8 mg/mg 10-20 [facility] Laboratory - Hematology and Cell countsOrdered By: Dr. Alonzo on 02-22-2023 Erythrocyte distribution width (RBC) [Entitic vol] 44.3 fL 35.1-43.9 [facility] Erythrocyte distribution width (RBC) [Ratio] 12.2 % 11.6-14.6 [facility] Immature granulocytes/100 WBC (Bld) 0.200 % 0.0-0.9 [facility] Comment on above: IG% - Immature Granu locytes (promyelocytes, myelocytes and metamyelocytes) > 1% indicates that a LEFT SHIFT is Present. MCH (RBC) [Entitic mass] 34.8 pg 27.0-32.0 [facility] Nucleated RBC/100 WBC (Bld) [Ratio] 0 % 0-5 [facility] MCHC Auto (RBC) [Mass/Vol]Or dered By: Dr. Alonzo on 02-22-2023 MCHC (RBC) [Mass/Vol] 35.0 g/dL 32-36 [facility] No Panel InformationOrdered By: Dr. Alonzo on 02-22-2023 Estimated GFR (MDRD) Amer 107 mL/min >60 [facility] Comment on above: GFR Calc Estimated GFR (MDRD) Non-Af Amer 89 mL/min >60 [facility] Comment on above: Non- GFR Calc Prostate Specific Antigen Total 1.68 ng/mL 0.0-4.0 [facility] Comment on above: This test was perfor med using the TPSA assay method for [facility]. Values obtained with differentassay methods cannot be used interchangably.When changing PSA assays in the course of monitoring apatient, additional sequential testing should be carriedout to confirm baseline values. Vitamin D 25-Hydroxy 67.0 ng/mL [facility] Comment on above: Vitamin D 25(OH) Sta tus Range Deficiency <20 ng/mL (50nmol/L) Insufficiency 20 - 30 ng/mL (50 - 75 nmol/L) Sufficiency 30 - 100 ng/mL (75 - 250 nmol/L) Toxicity >100 ng/mL (>250 nmol/L) Platelets bldOrdered By: Dr. Alonzo on 02-22-2023 Platelets (Bld) [#/Vol] 189 10*3/uL 150-450 [facility] Serum or plasma albumin pauline urement (mass/volume)Ordered By: Dr. Alonzo on 02-22-2023 Albumin [Mass/Vol] 4.0 g/dL 3.2-5.0 [facility] Serum or plasma albumin/glob ulin mass ratioOrdered By: Dr. Alonzo on 02-22-2023 Albumin/Globulin [Mass ratio] 1.3 {ratio} 0.9-2.4 [facility] Serum or plasma calcium pauline urement (mass/volume)Ordered By: Dr. Alonzo on 02-22-2023 Calcium [Mass/Vol] 9.3 mg/dL 8.5-10.1 [facility] Serum or plasma cholesterol in HDL measurement (mass/volume)Ordered By: Dr. Alonzo on 02-22-2023 Cholesterol in HDL [Mass/Vol] 75 mg/dL >40 [facility] Comment on above: The drugs N-Acetylcy steine and Metamizole may falsely depress this assay. Reference Range HDL <40 mg/dL Low HDL Cholesterol HDL >or= 60 mg/dL High HDL Cholesterol Serum or plasma cholesterol in VLDL measurement (mass/volume)Ordered By: Dr. Alonzo on 02-22-2023 Cholesterol in VLDL [Mass/Vol] 22 mg/dL 5-40 [facility] Serum or plasma creatinine m easurement (mass/volume)Ordered By: Dr. Alonzo on 02-22-2023 Creatinine [Mass/Vol] 0.88 mg/dL 0.70-1.30 [facility] Comment on above: The validity of the calculated GFR & GFRAA in patients over 70 years has not been determined. Clinical correlation is essential. Serum or plasma low density lipoprotein (LDL) cholesterol measurement (mass/volume)Ordered By: Dr. Alonzo on 02-22-2023 Cholesterol in LDL [Mass/Vol] 108 mg/dL 0-130 [facility] Serum or plasma urea nitroge n measurement (mass/volume)Ordered By: Dr. Alonzo on 02-22-2023 Urea nitrogen [Mass/Vol] 21 mg/dL 7-18 [facility] Thin prep Papanicolaou smear with manual screeningOrdered By: Dr. Alonzo on 02-22-2023 Thin prep Papanicolaou smear with manual screening 22 U/L 15-37 [facility] Thin prep Papanicolaou smear with manual screening 9 5-15 [facility] Absolute lymphocyte countOrd ered By: Dr. Valdez on 11-30-2022 Lymphocytes Auto (Unsp spec) [#/Vol] 1.52 10*3/uL 0.83-4.51 [facility] Basophil percentageOrdered B y: Dr. Valdez on 11-30-2022 Basophils/100 WBC (Bld) 0.7 % 0-1 [facility] Chloride [Moles/Vol] 106 mmol/L 98-107 [facility] Eosinophils/100 WBC (Bld) 4.6 % 0-5 [facility] Glucose [Mass/Vol] 96 mg/dL 74-106 [facility] Neutrophils (Bld) [#/Vol] 4.5 10*3/uL 2.0-7.7 [facility] Neutrophils/100 WBC (Bld) 65.1 % 47-70 [facility] Potassium [Moles/Vol] 4.4 mmol/L 3.5-5.1 [facility] Sodium [Moles/Vol] 138 mmol/L 136-145 [facility] WBC (Bld) [#/Vol] 7.0 10*3/uL 4.4-11.0 [facility] Blood erythrocytes count (nu mber/volume)Ordered By: Dr. Valdez on 11-30-2022 RBC (Bld) [#/Vol] 4.49 10*6/uL 4.6-6.2 [facility] Blood hemoglobin measurement (mass/volume)Ordered By: Dr. Valdez on 11-30-2022 Hemoglobin (Bld) [Mass/Vol] 15.8 g/dL 13.0-16.5 [facility] Blood lymphocytes/100 leukoc ytesOrdered By: Dr. Valdez on 11-30-2022 Lymphocytes/100 WBC (Bld) 21.8 % 19-41 [facility] Blood monocytes/100 leukocyt esOrdered By: Dr. Valdez on 11-30-2022 Monocytes/100 WBC (Bld) 7.5 % 0-10 [facility] Blood platelet mean volumeOr dered By: Dr. Valdez on 11-30-2022 Platelet mean volume (Bld) [Entitic vol] 10.9 fL 6.2-12.0 [facility] Determination of erythrocyte mean corpuscular volume (MCV)Ordered By: Dr. Valdez on 11-30-2022 MCV (RBC) [Entitic vol] 99.6 fL 80-94 [facility] Hematocrit Auto (Bld) [Volum e fraction]Ordered By: Dr. Valdez on 11-30-2022 Hematocrit (Bld) [Volume fraction] 44.7 % 40-54 [facility] Laboratory - Chemistry and C hemistry - challengeOrdered By: Dr. Valdez on 11-30-2022 CO2 [Moles/Vol] 26.0 mmol/L 21.0-32.0 [facility] Urea nitrogen/Creatinine [Mass ratio] 27.5 mg/mg 10-20 [facility] Laboratory - Hematology and Cell countsOrdered By: Dr. Valdez on 11-30-2022 Erythrocyte distribution width (RBC) [Entitic vol] 45.4 fL 35.1-43.9 [facility] Erythrocyte distribution width (RBC) [Ratio] 12.4 % 11.6-14.6 [facility] Immature granulocytes/100 WBC (Bld) 0.300 % 0.0-0.9 [facility] Comment on above: IG% - Immature Granu locytes (promyelocytes, myelocytes and metamyelocytes) > 1% indicates that a LEFT SHIFT is Present. MCH (RBC) [Entitic mass] 35.2 pg 27.0-32.0 [facility] Nucleated RBC/100 WBC (Bld) [Ratio] 0 % 0-5 [facility] MCHC Auto (RBC) [Mass/Vol]Or dered By: Dr. Valdez on 11-30-2022 MCHC (RBC) [Mass/Vol] 35.3 g/dL 32-36 [facility] No Panel InformationOrdered By: Dr. Valdez on 11-30-2022 Estimated GFR (MDRD) Amer 104 mL/min >60 [facility] Comment on above: GFR Calc Estimated GFR (MDRD) Non-Af Amer 86 mL/min >60 [facility] Comment on above: Non- GFR Calc Platelets bldOrdered By: Dr. Valdez on 11-30-2022 Platelets (Bld) [#/Vol] 200 10*3/uL 150-450 [facility] Serum or plasma calcium pauline urement (mass/volume)Ordered By: Dr. Valdez on 11-30-2022 Calcium [Mass/Vol] 9.4 mg/dL 8.5-10.1 [facility] Serum or plasma creatinine m easurement (mass/volume)Ordered By: Dr. Valdez on 11-30-2022 Creatinine [Mass/Vol] 0.91 mg/dL 0.70-1.30 [facility] Comment on above: The validity of the calculated GFR & GFRAA in patients over 70 years has not been determined. Clinical correlation is essential. Serum or plasma urea nitroge n measurement (mass/volume)Ordered By: Dr. Valdez on 11-30-2022 Urea nitrogen [Mass/Vol] 25 mg/dL 7-18 [facility] Thin prep Papanicolaou smear with manual screeningOrdered By: Dr. Valdez on 11-30-2022 Thin prep Papanicolaou smear with manual screening 6 5-15 [facility] Absolute lymphocyte countOrd ered By: Dr. Alonzo on 10-29-2022 Lymphocytes Auto (Unsp spec) [#/Vol] 1.20 10*3/uL 0.83-4.51 [facility] Basophil percentageOrdered B y: Dr. Alonzo on 10-29-2022 Basophils/100 WBC (Bld) 0.7 % 0-1 [facility] Bilirubin [Mass/Vol] 0.50 mg/dL 0.20-1.00 [facility] Comment on above: For patients on eltr ombopag therapy, use of Dimension Clifford TBIL is not recommended. Chloride [Moles/Vol] 105 mmol/L 98-107 [facility] Cholesterol [Mass/Vol] 227 mg/dL <200 [facility] Comment on above: <200 mg/dL Desirable 200-240 mg/dL Borderline >240 mg/dL High Risk Eosinophils/100 WBC (Bld) 5.5 % 0-5 [facility] Glucose [Mass/Vol] 93 mg/dL 74-106 [facility] Neutrophils (Bld) [#/Vol] 3.7 10*3/uL 2.0-7.7 [facility] Neutrophils/100 WBC (Bld) 64.9 % 47-70 [facility] Potassium [Moles/Vol] 4.2 mmol/L 3.5-5.1 [facility] Protein [Mass/Vol] 7.1 g/dL 6.4-8.2 [facility] Sodium [Moles/Vol] 140 mmol/L 136-145 [facility] Triglyceride [Mass/Vol] 88 mg/dL <199 [facility] Comment on above: The drugs N-Acetylcy steine and Metamizole may falsely depress this assay.Serum Triglycerides Reference Interval Normal <150 mg/dL Borderline high 150 - 199 mg/dL High 200 - 499 mg/dL Very High > or = 500 mg/dL WBC (Bld) [#/Vol] 5.6 10*3/uL 4.4-11.0 [facility] Blood erythrocytes count (nu mber/volume)Ordered By: Dr. Alonzo on 10-29-2022 RBC (Bld) [#/Vol] 4.46 10*6/uL 4.6-6.2 [facility] Blood hemoglobin measurement (mass/volume)Ordered By: Dr. Alonzo on 10-29-2022 Hemoglobin (Bld) [Mass/Vol] 15.3 g/dL 13.0-16.5 [facility] Blood lymphocytes/100 leukoc ytesOrdered By: Dr. Alonzo on 10-29-2022 Lymphocytes/100 WBC (Bld) 21.4 % 19-41 [facility] Blood monocytes/100 leukocyt esOrdered By: Dr. Alonzo on 10-29-2022 Monocytes/100 WBC (Bld) 7.1 % 0-10 [facility] Blood platelet mean volumeOr dered By: Dr. Alonzo on 10-29-2022 Platelet mean volume (Bld) [Entitic vol] 11.1 fL 6.2-12.0 [facility] Determination of erythrocyte mean corpuscular volume (MCV)Ordered By: Dr. Alonzo on 10-29-2022 MCV (RBC) [Entitic vol] 98.4 fL 80-94 [facility] Hematocrit Auto (Bld) [Volum e fraction]Ordered By: Dr. Alonzo on 10-29-2022 Hematocrit (Bld) [Volume fraction] 43.9 % 40-54 [facility] Laboratory - Chemistry and C hemistry - challengeOrdered By: Dr. Alonzo on 10-29-2022 ALP [Catalytic activity/Vol] 74 U/L 45-117 [facility] ALT [Catalytic activity/Vol] 26 U/L 16-61 [facility] CO2 [Moles/Vol] 26.0 mmol/L 21.0-32.0 [facility] Globulin (S) [Mass/Vol] 3.1 g/dL 2.2-4.2 [facility] Urea nitrogen/Creatinine [Mass ratio] 22.2 mg/mg 10-20 [facility] Laboratory - Hematology and Cell countsOrdered By: Dr. Alonzo on 10-29-2022 Erythrocyte distribution width (RBC) [Entitic vol] 44.5 fL 35.1-43.9 [facility] Erythrocyte distribution width (RBC) [Ratio] 12.3 % 11.6-14.6 [facility] Immature granulocytes/100 WBC (Bld) 0.400 % 0.0-0.9 [facility] Comment on above: IG% - Immature Granu locytes (promyelocytes, myelocytes and metamyelocytes) > 1% indicates that a LEFT SHIFT is Present. MCH (RBC) [Entitic mass] 34.3 pg 27.0-32.0 [facility] Nucleated RBC/100 WBC (Bld) [Ratio] 0 % 0-5 [facility] MCHC Auto (RBC) [Mass/Vol]Or dered By: Dr. Alonzo on 10-29-2022 MCHC (RBC) [Mass/Vol] 34.9 g/dL 32-36 [facility] No Panel InformationOrdered By: Dr. Alonzo on 10-29-2022 Estimated GFR (MDRD) Amer 105 mL/min >60 [facility] Comment on above: GFR Calc Estimated GFR (MDRD) Non-Af Amer 87 mL/min >60 [facility] Comment on above: Non- GFR Calc Vitamin D 25-Hydroxy 106.3 ng/mL [facility] Comment on above: Vitamin D 25(OH) Sta tus Range Deficiency <20 ng/mL (50nmol/L) Insufficiency 20 - 30 ng/mL (50 - 75 nmol/L) Sufficiency 30 - 100 ng/mL (75 - 250 nmol/L) Toxicity >100 ng/mL (>250 nmol/L)Evidence suggests that patients undergoing fluorescein dye angiography can retain small amounts of fluorescein in the body for up to 48 to 72 hours post-treatment. In the cases of patients with renal insufficiency, retention could be much longer. Samples containing fluorescein can produce falsely elevated values when tested with the [employer] Centaur Vitamin D assay. With fluorescein interference, observed Vitamin D values can be as high as >150 ng/mL (>375 nmol/L). Samples should be resubmitted post fluorescein clearance to ensure there is no interference with Vitamin D test results. Platelets bldOrdered By: Dr. Alonzo on 10-29-2022 Platelets (Bld) [#/Vol] 195 10*3/uL 150-450 [facility] Serum or plasma albumin pauline urement (mass/volume)Ordered By: Dr. Alonzo on 10-29-2022 Albumin [Mass/Vol] 4.0 g/dL 3.2-5.0 [facility] Serum or plasma albumin/glob ulin mass ratioOrdered By: Dr. Alonzo on 10-29-2022 Albumin/Globulin [Mass ratio] 1.3 {ratio} 0.9-2.4 [facility] Serum or plasma calcium pauline urement (mass/volume)Ordered By: Dr. Alonzo on 10-29-2022 Calcium [Mass/Vol] 9.4 mg/dL 8.5-10.1 [facility] Serum or plasma cholesterol in HDL measurement (mass/volume)Ordered By: Dr. Alonzo on 10-29-2022 Cholesterol in HDL [Mass/Vol] 74 mg/dL >40 [facility] Comment on above: The drugs N-Acetylcy steine and Metamizole may falsely depress this assay. Reference Range HDL <40 mg/dL Low HDL Cholesterol HDL >or= 60 mg/dL High HDL Cholesterol Serum or plasma cholesterol in VLDL measurement (mass/volume)Ordered By: Dr. Alonzo on 10-29-2022 Cholesterol in VLDL [Mass/Vol] 18 mg/dL 5-40 [facility] Serum or plasma creatinine m easurement (mass/volume)Ordered By: Dr. Alonzo on 10-29-2022 Creatinine [Mass/Vol] 0.90 mg/dL 0.70-1.30 [facility] Comment on above: The validity of the calculated GFR & GFRAA in patients over 70 years has not been determined. Clinical correlation is essential. Serum or plasma low density lipoprotein (LDL) cholesterol measurement (mass/volume)Ordered By: Dr. Alonzo on 10-29-2022 Cholesterol in LDL [Mass/Vol] 135 mg/dL 0-130 [facility] Serum or plasma urea nitroge n measurement (mass/volume)Ordered By: Dr. Alonzo on 10-29-2022 Urea nitrogen [Mass/Vol] 20 mg/dL 7-18 [facility] Thin prep Papanicolaou smear with manual screeningOrdered By: Dr. Alonzo on 10-29-2022 Thin prep Papanicolaou smear with manual screening 19 U/L 15-37 [facility] Thin prep Papanicolaou smear with manual screening 9 5-15 [facility] CBC W/AUTO DIFF WBC ([id number])O rdered By: Maintenance Helper Utility Engineer on 07-16-2022 Basophils (Bld) [#/Vol] 0.0 10*3/uL Normal 0.0-0.2 [facility]; [facility] Work Phone: Comment on above: PATIENT WAS FASTINGP ERFORMED BY: HeadSproutFormerly [facility] [id number] Information: NURSE DRAW Basophils/100 WBC (Bld) 1 % Normal [facility]; [facility] Work Phone: Comment on above: PATIENT WAS FASTINGP ERFORMED BY: Harry's [place] [employer]ightCineFormerly [facility] [id number] Information: NURSE DRAW Eosinophils (Bld) [#/Vol] 0.3 10*3/uL Normal 0.0-0.4 [facility]; [facility] Work Phone: Comment on above: PATIENT WAS FASTINGP ERFORMED BY: FohBohox [employer]Former[employer] [facility] [id number] Information: NURSE DRAW Eosinophils/100 WBC (Bld) 5 % Normal [facility]; [facility] Work Phone: Comment on above: PATIENT WAS FASTINGP ERFORMED BY: [facility] [place] [employer]Former[employer] [facility] [id number] Information: NURSE DRAW Erythrocyte distribution width (RBC) [Ratio] 12.3 % Normal 11.6-15.4 [facility]; [facility] Work Phone: Comment on above: PATIENT WAS FASTINGP ERFORMED BY: [place] [id number] [facility] [id number] Information: NURSE DRAW Hematocrit (Bld) [Volume fraction] 46.3 % Normal 37.5-51.0 [facility]; [facility] Work Phone: Comment on above: PATIENT WAS FASTINGP ERFORMED BY: [address] [id number] Information: NURSE DRAW Hemoglobin (Bld) [Mass/Vol] 16.0 g/dL Normal 13.0-17.7 [facility]; [facility] Work Phone: Comment on above: PATIENT WAS FASTINGP ERFORMED BY: [address] [id number] Information: NURSE DRAW Immature granulocytes (Bld) [#/Vol] 0.0 10*3/uL Normal 0.0-0.1 [facility]; [facility] Work Phone: Comment on above: PATIENT WAS FASTINGP ERFORMED BY: [place] [id number] [facility] [id number] Information: NURSE DRAW Immature granulocytes/100 WBC (Bld) 0 % Normal [facility]; [facility] Work Phone: Comment on above: PATIENT WAS FASTINGP ERFORMED BY: [address] [id number] Information: NURSE DRAW Lymphocytes (Bld) [#/Vol] 1.4 10*3/uL Normal 0.7-3.1 [facility]; [facility] Work Phone: Comment on above: PATIENT WAS FASTINGP ERFORMED BY: [address] [id number] Information: NURSE DRAW Lymphocytes/100 WBC (Bld) 25 % Normal [facility]; [facility] Work Phone: Comment on above: PATIENT WAS FASTINGP ERFORMED BY: CLIFF Khoasara [id number] [facility] [id number] Information: NURSE DRAW MCH (RBC) [Entitic mass] 34.5 pg Abnormal 26.6-33.0 [facility]; [facility] Work Phone: Comment on above: PATIENT WAS FASTINGP ERFORMED BY: CLIFF [address] [id number] Information: NURSE DRAW MCHC (RBC) [Mass/Vol] 34.6 g/dL Normal 31.5-35.7 [facility]; [facility] Work Phone: Comment on above: PATIENT WAS FASTINGP ERFORMED BY: CLIFF [address] [id number] Information: NURSE DRAW MCV (RBC) [Entitic vol] 100 fL Abnormal 79-97 [facility]; [facility] Work Phone: Comment on above: PATIENT WAS FASTINGP ERFORMED BY: CLIFF Khoagavino [address] [id number] Information: NURSE DRAW Monocytes (Bld) [#/Vol] 0.4 10*3/uL Normal 0.1-0.9 [facility]; [facility] Work Phone: Comment on above: PATIENT WAS FASTINGP ERFORMED BY: CLIFF [address] [id number] Information: NURSE DRAW Monocytes/100 WBC (Bld) 7 % Normal [facility]; [facility] Work Phone: Comment on above: PATIENT WAS FASTINGP ERFORMED BY: CLIFF [address] [id number] Information: NURSE DRAW Neutrophils (Bld) [#/Vol] 3.4 10*3/uL Normal 1.4-7.0 [facility]; [facility] Work Phone: Comment on above: PATIENT WAS FASTINGP ERFORMED BY: CLIFF [facility] [id number] [facility] [id number] Information: NURSE DRAW Neutrophils/100 WBC (Bld) 62 % Normal [facility]; [facility] Work Phone: Comment on above: PATIENT WAS FASTINGP ERFORMED BY: [facility] [id number] [facility] [id number] Information: NURSE DRAW Platelets (Bld) [#/Vol] 224 10*3/uL Normal 150-450 [facility]; [facility] Work Phone: Comment on above: PATIENT WAS FASTINGP ERFORMED BY: [facility] [id number] [facility] [id number] Information: NURSE DRAW RBC (Bld) [#/Vol] 4.64 10*6/uL Normal 4.14-5.80 [facility]; [facility] Work Phone: Comment on above: PATIENT WAS FASTINGP ERFORMED BY: [facility] [id number] [facility] [id number] Information: NURSE DRAW WBC (Bld) [#/Vol] 5.6 10*3/uL Normal 3.4-10.8 [facility]; [facility] Work Phone: Comment on above: PATIENT WAS FASTINGP ERFORMED BY: [facility]6370 [facility] [id number] Information: NURSE DRAW METABOLIC PANEL, COMPREHENSI BARBARA ([id number])Ordered By: Maintenance Helper Utility Engineer on 07-16-2022 Albumin [Mass/Vol] 4.9 g/dL Abnormal 3.7-4.7 [facility]; [facility] Work Phone: Comment on above: PATIENT WAS FASTINGP ERFORMED BY: CLIFF [facility] [id number] [facility] [id number]; wellness labs, ok to wait for wellness to review Albumin/Globulin [Mass ratio] 2.6 {ratio} Abnormal 1.2-2.2 [facility]; [facility] Work Phone: Comment on above: PATIENT WAS FASTINGP ERFORMED BY: CB [facility] [id number] [address] [facility] [id number]; wellness labs, ok to wait for wellness to review ALP [Catalytic activity/Vol] 91 U/L Normal 44-121 [facility]; [facility] Work Phone: Comment on above: PATIENT WAS FASTINGP ERFORMED BY: CB [facility] [id number] Rodas RoadFormerly [facility] [facility] [id number]; wellness labs, ok to wait for wellness to review ALT [Catalytic activity/Vol] 24 U/L Normal 0-44 [facility]; [facility] Work Phone: Comment on above: PATIENT WAS FASTINGP ERFORMED BY: CB [facility] [id number] [facility] [id number]; wellness labs, ok to wait for wellness to review AST [Catalytic activity/Vol] 25 U/L Normal 0-40 [facility]; [facility] Work Phone: Comment on above: PATIENT WAS FASTINGP ERFORMED BY: CB [facility] [id number] [facility] [id number]; wellness labs, ok to wait for wellness to review Bilirubin [Mass/Vol] 0.3 mg/dL Normal 0.0-1.2 [facility] rehensive Internal Medicine; [facility] Work Phone: Comment on above: PATIENT WAS FASTINGP ERFORMED BY: CB [facility] [id number] [address] [facility] [id number]; wellness labs, ok to wait for wellness to review Calcium [Mass/Vol] 9.8 mg/dL Normal 8.6-10.2 [facility] Internal Medicine; [facility] Work Phone: Comment on above: PATIENT WAS FASTINGP ERFORMED BY: CB [facility] [id number] [address] [facility] [id number]; wellness labs, ok to wait for wellness to review Chloride [Moles/Vol] 103 mmol/L Normal 96-106 Comp rehensive Internal Medicine; [facility] Work Phone: Comment on above: PATIENT WAS FASTINGP ERFORMED BY: CB [facility] [id number] [address] RoadDublin [place] [id number]; wellness labs, ok to wait for wellness to review CO2 [Moles/Vol] 21 mmol/L Normal 20-29 [facility]; [facility] Work Phone: Comment on above: PATIENT WAS FASTINGP ERFORMED BY: CB [facility] Eexdtx3049 [address] RoadDuin [place] [id number]; wellness labs, ok to wait for wellness to review Creatinine [Mass/Vol] 0.92 mg/dL Normal 0.76-1.27 [facility] prehensive Internal Medicine; [facility] Work Phone: Comment on above: PATIENT WAS FASTINGP ERFORMED BY: CB [facility] [id number] [address] RoadDuin [place] [id number]; wellness labs, ok to wait for wellness to review GFR/1.73 sq M.predicted among non-blacks MDRD (S/P/Bld) [Vol rate/Area] 86 mL/min/{1.73_m2} Normal Comprehens e [facility]; [facility] Work Phone: Comment on above: PATIENT WAS FASTINGP ERFORMED BY: CB [facility] [id number] [address] [facility] [id number]; wellness labs, ok to wait for wellness to review Globulin (S) [Mass/Vol] 1.9 g/dL Normal 1.5-4.5 [facility] Internal Medicine; [facility] Work Phone: Comment on above: PATIENT WAS FASTINGP ERFORMED BY: CB [facility] [id number] [address] RoadDuin [place] [id number]; wellness labs, ok to wait for wellness to review Glucose [Mass/Vol] 94 mg/dL Normal 70-99 [facility] Internal Medicine; [facility] Work Phone: Comment on above: PATIENT WAS FASTINGP ERFORMED BY: CB [facility] [id number] [address] RoadDublin [place] [id number]; wellness labs, ok to wait for wellness to review Potassium [Moles/Vol] 4.7 mmol/L Normal 3.5-5.2 [facility] prehensive Internal Medicine; [facility] Work Phone: Comment on above: PATIENT WAS FASTINGP ERFORMED BY: CB [facility] [id number] [address] RoadDublin [place] [id number]; wellness labs, ok to wait for wellness to review Protein [Mass/Vol] 6.8 g/dL Normal 6.0-8.5 [facility] Internal Medicine; [facility] Work Phone: Comment on above: PATIENT WAS FASTINGP ERFORMED BY: CB [facility] [id number] [address] RoadDublin [place] [id number]; wellness labs, ok to wait for wellness to review Sodium [Moles/Vol] 141 mmol/L Normal 134-144 [facility] Internal Medicine; [facility] Work Phone: Comment on above: PATIENT WAS FASTINGP ERFORMED BY: CB [facility] [id number] [address] RoadDuin [place] [id number]; wellness labs, ok to wait for wellness to review Urea nitrogen [Mass/Vol] 25 mg/dL Normal 8-27 [facility] Internal Medicine; [facility] Work Phone: Comment on above: PATIENT WAS FASTINGP ERFORMED BY: CB [facility] [id number] [address] RoadDublin [place] [id number]; wellness labs, ok to wait for wellness to review Urea nitrogen/Creatinine [Mass ratio] 27 mg/mg Abnormal 10-24 [facility]; [facility] Work Phone: Comment on above: PATIENT WAS FASTINGP ERFORMED BY: CB [facility] [id number] [address] RoadDuin [place] [id number]; wellness labs, ok to wait for wellness to review URINALYSIS, W/ MICRO ([id number]) Ordered By: Maintenance Helper Utility Engineer on 07-16-2022 Appearance (U) Cloudy Abnormal Comprehens bari Internal Medicine; [facility] Work Phone: Comment on above: PATIENT WAS FASTINGP ERFORMED BY: CB [facility] Dbonvd7986 [address] RoadD[address] [place] [id number] Bilirubin Ql (U) Negative Normal Comprehe nsive Internal Medicine; [facility] Work Phone: Comment on above: PATIENT WAS FASTINGP ERFORMED BY: CLIFF Khoagavino JohnsonZnsklb2504 [facility] [id number] Color (U) Yellow Normal [facility]; [facility] Work Phone: Comment on above: PATIENT WAS FASTINGP ERFORMED BY: CLIFF Johnsonlin6370 [facility] [id number] Glucose Ql (U) Negative Normal Comprehens bari [facility] Medicine; [facility] Work Phone: Comment on above: PATIENT WAS FASTINGP ERFORMED BY: CLIFF Johnsonlin6370 [facility] [id number] Hemoglobin Ql (U) Negative Normal Compreh ensive Internal Medicine; [facility] Work Phone: Comment on above: PATIENT WAS FASTINGP ERFORMED BY: CLIFF Johnsonlin6370 [facility] [id number] Ketones Ql (U) Negative Normal Comprehens bari [facility]; [facility] Work Phone: Comment on above: PATIENT WAS FASTINGP ERFORMED BY: CLIFF Johnsonlin6370 [facility] [id number] Leukocyte esterase Test strip Ql (U) Negative Normal [facility]; [facility] Work Phone: Comment on above: PATIENT WAS FASTINGP ERFORMED BY: CLIFF Oliva6370 [facility] [id number] Microscopic observation LM Nom (Urine sed) MICRON Normal [facility]; [facility] Work Phone: Comment on above: Microscopic follows if indicated. PATIENT WAS FASTINGP ERFORMED BY: CLIFF Johnsonlin6370 [facility] [id number] Microscopic observation LM Nom (Urine sed) See below: Normal [facility]; [facility] Work Phone: Comment on above: Microscopic was kamryn cated and was performed. PATIENT WAS FASTINGP ERFORMED BY: CLIFF Johnsonlin6370 [address] Road[address] [place] [id number] Nitrite Ql (U) Negative Normal Comprehens bari [facility]; [facility] Work Phone: Comment on above: PATIENT WAS FASTINGP ERFORMED BY: CLIFF Ronaldo Oliva6370 [address] Road[address] [place] [id number] pH (U) 8.0 [pH] Abnormal 5.0-7.5 [facility]; [facility] Work Phone: Comment on above: PATIENT WAS FASTINGP ERFORMED BY: CLIFF Ronaldo Oliva6370 [address] RoadDublin [place] [id number] Protein Ql (U) Negative Normal Comprehens bari [facility]; [facility] Work Phone: Comment on above: PATIENT WAS FASTINGP ERFORMED BY: CLIFF Anilkristopher Vzeytt1686 [address] Roadbl[address] [place] [id number] Specific gravity (U) [Rel density] 1.020 1 Normal 1.005-1.030 [facility]; [facility] Work Phone: Comment on above: PATIENT WAS FASTINGP ERFORMED BY: CLIFF Ronaldo Oliva6370 [address] Road[address]ublin [place] [id number] Urobilinogen (U) [Mass/Vol] 0.2 mg/dL Normal 0.2-1.0 [facility]; [facility] Work Phone: Comment on above: PATIENT WAS FASTINGP ERFORMED BY: CLIFF Anil Vichwt1228 [address] [facility]bl[facility] [place] [id number] No Panel Informationon 05-09 Follicle Stimulating Hormone 68.8 mIU/mL [facility] Work Phone: Comment on above: NORMAL REFERENCE RAN GES FEMALE FOLLICULAR 2.3 - 12.6 mIU/mL MID-CYCLE PEAK 5.2 - 17.5 mIU/mL LUTEAL 1.7 - 12.9 mIU/mL POST-MENOPAUSAL ON MHT 5.9 - 72.8 mIU/mL NOT ON MHT 12.7 - 132.2 mlU/mL MALE 0.7 - 10.8 mIU/mL HCG Beta Subunit 3 mIU/mL 0-3 [facility] Work Phone: Comment on above: Roseanna ECLIA methodol ogyPerformed at: CB - [facility] Fnithd4895 [place], [place] [id number] Director: Brennan Pascual PhD, Phone: [phone] Luteinizing Hormone 31.5 mIU/mL [facility] Work Phone: Comment on above: NORMAL REFERENCE RAN GES FEMALE FOLLICULAR 1.9 - 26.2 mIU/mL MID-CYCLE PEAK 22.8 - 76.1 mIU/mL LUTEAL 0.6 - 16.6 mIU/mL POST-MENOPAUSAL ON MHT 1.1 - 52.4 mIU/mL NOT ON MHT 8.6 - 61.8 mIU/mL MALE 1.2 - 10.6 mIU/mL Serum or plasma estradiol (E 2) measurement (mass/volume)on 05-09-2022 E2 [Mass/Vol] 33.7 pg/mL [facility] Work Phone: Comment on above: NORMAL REFERENCE RAN GES FEMALE FOLLICULAR 21.4 - 164.8 pg/mL MID-CYCLE PEAK 49.9 - 367.2 pg/mL LUTEAL 40.2 - 259.0 pg/mL POST-MENOPAUSAL ON MHT <11.0 - 462.1 pg/mL NOT ON MHT <11.0 - 58.3 pg/mL MALE <11.0 - 52.5 pg/mL NOTE:[employer] HAS CONFIRMED THE DRUG FULVETRANT (FASLODEX) MAY CAUSE FALSELY ELEVATED ESTRADIOL RESULTS WHEN USING THIS TEST METHOD. IF PATIENT IS TAKING FULVESTRANT AN ALTERNATIVE METHOD SHOULD BE USED TO DETERMINE ESTRADIOL CONCENTRATION. Serum or plasma prolactin me asurement (mass/volume)on 05-09-2022 Prolactin [Mass/Vol] 10.9 ng/mL [facility] Work Phone: Comment on above: NORMAL REFERENCE RAN GES FEMALE NON- 2.2 - 30.3 ng/mL 8.1 - 347.6 ng/mL POST-MENOPAUSAL 0.7 - 31.5 ng/mL MALE 2.5 - 17.4 ng/mL CNPNon 04-20-2022 CNPN Telephone ([employer]) JUNG ABURTO ([id number]) 1945 M Date Time Provider Department 04/20/22 MAL JOSEPH During your visit today, we recorded the following information about you: Kirstie Lopez RN 04/20/2022 10:[address] Joseph, called Pt to report results were benign and no surgical intervention needed at this time. Pt voiced understanding and had no other needs. Allergies As of Date: 04/20/2022 (No Known Allergies) Date Reviewed: 04/10/2022 Reviewed by: Kirstie Lopez RN - Fully Assessed Reason for Visit: [...] in father [Z80.0]11/28/2017 Encounter Status:Closed by KIRSTIE LOPEZ on 04/20/22 [facility] CNOVon 04-17-2022 CNOV Office Visit (GENSWS ) JUNG ABURTO ([id number]) 1945 M Date Time Provider Department 04/17/22 1:20 PM MAL JOSEPH GENTARAS During your visit today, we recorded the following information about you: Ofelia Plaza 04/17/2022 2:06 PM Signed UNIVERSAL PROTOCOL / [...] procedures): All specimen containers correctly labeled. Ofelia Joseph III, MD 04/17/2022 2:11 PM Signed Preoperative [...] tolerated the procedure well. Referring Provider: MAL JOSEPH [[id number]] Allergies As of Date: 04/17/2022 (No Known Allergies) Date Reviewed: 04/10/2022 Reviewed by: Kirstie Lopez RN - Fully Assessed Reason for Visit: Procedure [88] Cmt: Right Breast Biopsy Primary Visit Diagnosis:Subareolar mass of right breast [N63.41] Order(s):US BREAST BIOPSY RIGHT (POC) SURG USE ONLY [0696830] Order #: [id number]. #:[id number]: [id number] SURGICAL PATHOLOGY [EGL1184] Order #: [id number]. #:[id number] Prescriptions as of 04/17/2022 - atorvastatin (LIPITOR) [...] in father [Z80.0]11/28/2017 Encounter Status:Closed by MAL JOSEPH on 04/17/22 Normal [facility] SURGICAL PATHOLOGYon 022 CASE REPORT Normal [facility] Comment on above: Order Comment: Speci men Type: TISSUE SPECIMEN Ordering Facility: [facility] Address: [address] [place] [address] [place] [address] Result Comment: Surg [facility] Pathology Report Case: [id number] Authorizing Provider: Mal Joseph MD Collected: 04/17/2022 02:10 PM Ordering Location: General Surgery Received: 04/17/2022 03:27 PM Pathologist: Laure Irvin MD Specimen: BREAST CORE BIOPSY RIGHT, Right Breast Performed By: #### S #### [facility] CLIA [id number] [address] [place] [address] CLINICAL HISTORY Right Breast Mass [facility] Comment on above: Order Comment: Speci nancy Type: TISSUE SPECIMEN Ordering Facility: [facility] Address: [address] [place] [address] Performed By: #### S #### [facility] CLIA [id number] [address] [place] [address] DIAGNOSIS COMMENT Multiple deeper leve ls were examined. Clinical and radiographic correlation is suggested. Normal [facility] Comment on above: Order Comment: Speci men Type: TISSUE SPECIMEN Ordering Facility: [facility] Address: [address] [place] [address] Performed By: #### S #### [facility] CLIA [id number] [address] [place] [address] FINAL DIAGNOSIS Normal [facility] Comment on above: Order Comment: Speci men Type: TISSUE SPECIMEN Ordering Facility: [facility] Address: [address] [place] [address] Result Comment: A. R ight breast, needle core biopsy: - Benign breast ducts with focal epithelial hypercellularity in a background of paucicellular stroma with prominent vasculature and scattered foci of chronic lymphocytic inflammation, compatible with gynecomastia in the proper clinical and radiographic context. GL/JEMETERIO 04/18/2022 Performed By: #### S #### [facility] CLIA [id number] [facility] FINAL PERFORMING LAB Normal [facility] Comment on above: Order Comment: Speci men Type: TISSUE SPECIMEN Ordering Facility: [facility] Address: [address] [place] [address] Result Comment: Diag nostic interpretation performed at [facility], [address] [place] [address] CLIA# [id number] [employer] Worker: Nnamdi Burgos M.D. Performed By: #### S #### [facility] CLIA [id number] [address] [place] [address] GROSS DESCRIPTION Normal [facility] Comment on above: Order Comment: Speci men Type: TISSUE SPECIMEN Ordering Facility: [facility] Address: [address] [place] [address] Result Comment: A. B REAST CORE BIOPSY [...] in one cassette. Gross examination performed at [facility], [address] [place] [address] JT 04/17/2022 10:23 PM Performed By: #### S #### [facility] CLIA [id number] [address] [place] [address] OF [place] US BREAST BIOPSY RIGHT (POC) SURG USE ONLYon 04-17-2022 [facility] CNOVon 04-10-2022 CNOV Office Visit (GENSWS ) JUNG [id number]) 1945 M Date Time Provider Department 04/10/22 9:30 AM MAL JOSEPH During your visit today, we recorded the following information about you: Pulse Blood pressure Weight Height 76/minute 136/84 79.3 kg 1.854 m Kirstie Lopez RN 04/10/2022 9:38 AM Signed REVIEW OF [...] HISTORY AND PHYSICAL - BREAST COMPLAINT Jung Aburto 1945 REFERRING PHYSICIAN: Francheska Alonzo DO CHIEF [...] W/COLLJ SPEC WHEN PFRMD 12/16/2017 Colonoscopy - ESOPHAGOGASTRODUODENOSC OPY TRANSORAL DIAGNOSTIC 12/16/2017 EGD - HERNIA REPAIR [...] daily. 0 (more content not included)... Normal [facility] Basophil percentageon 2021 Bilirubin [Mass/Vol] 0.60 mg/dL 0.20-1.00 [facility] Work Phone: Comment on above: For patients on eltr ombopag therapy, use of Dimension Clifford TBIL is not recommended. Chloride [Moles/Vol] 106 mmol/L 98-107 [facility] Work Phone: Cholesterol [Mass/Vol] 200 mg/dL <200 [facility] Work Phone: Comment on above: <200 mg/dL Desirable 200-240 mg/dL Borderline >240 mg/dL High Risk Glucose [Mass/Vol] 97 mg/dL 74-106 [facility] Work Phone: Potassium [Moles/Vol] 4.0 mmol/L 3.5-5.1 [facility] Work Phone: Protein [Mass/Vol] 7.1 g/dL 6.4-8.2 [facility] Work Phone: Sodium [Moles/Vol] 137 mmol/L 136-145 [facility] Work Phone: Triglyceride [Mass/Vol] 63 mg/dL <199 [facility] Work Phone: Comment on above: The drugs N-Acetylcy steine and Metamizole may falsely depress this assay.Serum Triglycerides Reference Interval Normal <150 mg/dL Borderline high 150 - 199 mg/dL High 200 - 499 mg/dL Very High > or = 500 mg/dL Laboratory - Chemistry and C hemistry - challengeon 01-19-2022 ALP [Catalytic activity/Vol] 78 U/L 45-117 [facility] Work Phone: ALT [Catalytic activity/Vol] 27 U/L 16-61 [facility] Work Phone: CO2 [Moles/Vol] 25.0 mmol/L 21.0-32.0 [facility] Work Phone: Globulin (S) [Mass/Vol] 3.3 g/dL 2.2-4.2 [facility] Work Phone: Urea nitrogen/Creatinine [Mass ratio] 23.4 mg/mg 10-20 [facility] Work Phone: No Panel Informationon 01-19 Estimated GFR (MDRD) Amer 86 mL/min >60 [facility] Work Phone: Comment on above: GFR Calc Estimated GFR (MDRD) Non-Af Amer 71 mL/min >60 [facility] Work Phone: Comment on above: Non- GFR Calc Prostate Specific Antigen Screen 1.90 ng/mL 0.00-4.00 [facility] Work Phone: Comment on above: This test was perfor med using the TPSA assay method for [facility] chemistry system. Values obtained with differentassay methods cannot be used interchangably.When changing PSA assays in the course of monitoring apatient, additional sequential testing should be carriedout to confirm baseline values. Serum or plasma albumin pauline urement (mass/volume)on 01-19-2022 Albumin [Mass/Vol] 3.8 g/dL 3.2-5.0 [facility] Work Phone: Serum or plasma albumin/glob ulin mass ratioon 01-19-2022 Albumin/Globulin [Mass ratio] 1.2 {ratio} 0.9-2.4 [facility] Work Phone: Serum or plasma calcium pauline urement (mass/volume)on 01-19-2022 Calcium [Mass/Vol] 9.2 mg/dL 8.5-10.1 [facility] Work Phone: Serum or plasma cholesterol in HDL measurement (mass/volume)on 01-19-2022 Cholesterol in HDL [Mass/Vol] 77 mg/dL >40 [facility] Work Phone: Comment on above: The drugs N-Acetylcy steine and Metamizole may falsely depress this assay. Reference Range HDL <40 mg/dL Low HDL Cholesterol HDL >or= 60 mg/dL High HDL Cholesterol Serum or plasma cholesterol in VLDL measurement (mass/volume)on 01-19-2022 Cholesterol in VLDL [Mass/Vol] 13 mg/dL 5-40 [facility] Work Phone: Serum or plasma creatinine m easurement (mass/volume)on 01-19-2022 Creatinine [Mass/Vol] 1.07 mg/dL 0.70-1.30 [facility] Work Phone: Comment on above: The validity of the calculated GFR & GFRAA in patients over 70 years has not been determined. Clinical correlation is essential. Serum or plasma low density lipoprotein (LDL) cholesterol measurement (mass/volume)on 01-19-2022 Cholesterol in LDL [Mass/Vol] 110 mg/dL 0-130 [facility] Work Phone: Serum or plasma urea nitroge n measurement (mass/volume)on 01-19-2022 Urea nitrogen [Mass/Vol] 25 mg/dL 7-18 [facility] Work Phone: Thin prep Papanicolaou smear with manual screeningon 01-19-2022 Thin prep Papanicolaou smear with manual screening 22 U/L 15-37 [facility] Work Phone: Thin prep Papanicolaou smear with manual screening 6 5-15 [facility] Work Phone: Basophil percentageon 2021 Bilirubin [Mass/Vol] 0.50 mg/dL 0.20-1.00 [facility] Work Phone: Comment on above: For patients on eltr ombopag therapy, use of Dimension Clifford TBIL is not recommended. Chloride [Moles/Vol] 104 mmol/L 98-107 [facility] Work Phone: Cholesterol [Mass/Vol] 230 mg/dL <200 [facility] Work Phone: Comment on above: <200 mg/dL Desirable 200-240 mg/dL Borderline >240 mg/dL High Risk Glucose [Mass/Vol] 89 mg/dL 74-106 [facility] Work Phone: Potassium [Moles/Vol] 4.1 mmol/L 3.5-5.1 [facility] Work Phone: Protein [Mass/Vol] 7.6 g/dL 6.4-8.2 [facility] Work Phone: Sodium [Moles/Vol] 138 mmol/L 136-145 [facility] Work Phone: Triglyceride [Mass/Vol] 83 mg/dL [facility] Work Phone: Comment on above: The drugs N-Acetylcy steine and Metamizole may falsely depress this assay.Serum Triglycerides Reference Interval Normal <150 mg/dL Borderline high 150 - 199 mg/dL High 200 - 499 mg/dL Very High > or = 500 mg/dL Laboratory - Chemistry and C hemistry - challengeon 10-05-2021 ALP [Catalytic activity/Vol] 85 U/L 45-117 [facility] Work Phone: ALT [Catalytic activity/Vol] 25 U/L 16-61 [facility] Work Phone: CO2 [Moles/Vol] 27.0 mmol/L 21.0-32.0 [facility] Work Phone: Globulin (S) [Mass/Vol] 3.5 g/dL 2.2-4.2 [facility] Work Phone: Urea nitrogen/Creatinine [Mass ratio] 22.3 mg/mg 10-20 [facility] Work Phone: No Panel Informationon 10-05 Estimated GFR (MDRD) Amer 95 mL/min >60 [facility] Work Phone: Comment on above: GFR Calc Estimated GFR (MDRD) Non-Af Amer 78 mL/min >60 [facility] Work Phone: Comment on above: Non- GFR Calc Hepatitis C Antibody Non-Reactive Nonreactive [facility] Work Phone: Comment on above: Non Reactive: < 0.8 Equivocal: >/= 0.8 to < 1.0 Reactive: >/= 1.0The [facility] recommends that a reactive/equivocal HCV antibody result be followed up by the HCV Nucleic Acid Amplificationtest (340926) Vitamin B12 Level > 2000 pg/mL 211-911 [facility] Work Phone: Serum or plasma albumin pauline urement (mass/volume)on 10-05-2021 Albumin [Mass/Vol] 4.1 g/dL 3.2-5.0 [facility] Work Phone: Serum or plasma albumin/glob ulin mass ratioon 10-05-2021 Albumin/Globulin [Mass ratio] 1.2 {ratio} 0.9-2.4 [facility] Work Phone: Serum or plasma calcium pauline urement (mass/volume)on 10-05-2021 Calcium [Mass/Vol] 9.1 mg/dL 8.5-10.1 [facility] Work Phone: Serum or plasma cholesterol in HDL measurement (mass/volume)on 10-05-2021 Cholesterol in HDL [Mass/Vol] 79 mg/dL [facility] Work Phone: Comment on above: The drugs N-Acetylcy steine and Metamizole may falsely depress this assay. Reference Range HDL <40 mg/dL Low HDL Cholesterol HDL >or= 60 mg/dL High HDL Cholesterol Serum or plasma cholesterol in VLDL measurement (mass/volume)on 10-05-2021 Cholesterol in VLDL [Mass/Vol] 17 mg/dL 5-40 [facility] Work Phone: Serum or plasma creatinine m easurement (mass/volume)on 10-05-2021 Creatinine [Mass/Vol] 0.99 mg/dL 0.70-1.30 [facility] Work Phone: Comment on above: The validity of the calculated GFR & GFRAA in patients over 70 years has not been determined. Clinical correlation is essential. Serum or plasma folate measu rement (mass/volume)on 10-05-2021 Folate [Mass/Vol] 57.20 ng/mL 3.1-55.4 [facility] Work Phone: Serum or plasma low density lipoprotein (LDL) cholesterol measurement (mass/volume)on 10-05-2021 Cholesterol in LDL [Mass/Vol] 134 mg/dL 0-130 [facility] Work Phone: Serum or plasma urea nitroge n measurement (mass/volume)on 10-05-2021 Urea nitrogen [Mass/Vol] 22 mg/dL 7-18 [facility] Work Phone: Thin prep Papanicolaou smear with manual screeningon 10-05-2021 Thin prep Papanicolaou smear with manual screening 18 U/L 15-37 [facility] Work Phone: Thin prep Papanicolaou smear with manual screening 7 5-15 [facility] Work Phone: CBC, PLATELETS & MANUAL DIFF ([id number])Ordered By: Maintenance Helper Utility Engineer on 06-05-2021 Basophils (Bld) [#/Vol] 0.1 10*3/uL Normal 0.0-0.2 [facility]; [facility] Medicine Work Phone: Comment on above: PATIENT WAS FASTINGP ERFORMED BY: DrivenBI [facility] [id number] Information: NURSE DRAW; wellness labs Basophils/100 WBC (Bld) 1 % Normal [facility]; [facility] Work Phone: Comment on above: PATIENT WAS FASTINGP ERFORMED BY: DrivenBI [facility] [id number] Information: NURSE DRAW; wellness labs Eosinophils (Bld) [#/Vol] 0.3 10*3/uL Normal 0.0-0.4 [facility]; [facility] Work Phone: Comment on above: PATIENT WAS FASTINGP ERFORMED BY: CLIFF [place] [id number] [facility] [id number] Information: NURSE DRAW; wellness labs Eosinophils/100 WBC (Bld) 4 % Normal [facility]; [facility] Work Phone: Comment on above: PATIENT WAS FASTINGP ERFORMED BY: [address] [id number] Information: NURSE DRAW; wellness labs Erythrocyte distribution width (RBC) [Ratio] 12.3 % Normal 11.6-15.4 [facility]; [facility] Work Phone: Comment on above: PATIENT WAS FASTINGP ERFORMED BY: CLIFF [facility] Mytzim[address] [id number] Information: NURSE DRAW; wellness labs Hematocrit (Bld) [Volume fraction] 47.4 % Normal 37.5-51.0 [facility]; [facility] Work Phone: Comment on above: PATIENT WAS FASTINGP ERFORMED BY: CLIFF Khoa[address] [id number] Information: NURSE DRAW; wellness labs Hemoglobin (Bld) [Mass/Vol] 16.0 g/dL Normal 13.0-17.7 [facility]; [facility] Work Phone: Comment on above: PATIENT WAS FASTINGP ERFORMED BY: CLIFF Khoa[address] [id number] Information: NURSE DRAW; wellness labs Immature granulocytes (Bld) [#/Vol] 0.0 10*3/uL Normal 0.0-0.1 [facility]; [facility] Work Phone: Comment on above: PATIENT WAS FASTINGP ERFORMED BY: CLIFF Khoa[address] [id number] Information: NURSE DRAW; wellness labs Immature granulocytes/100 WBC (Bld) 0 % Normal [facility]; [facility] Work Phone: Comment on above: PATIENT WAS FASTINGP ERFORMED BY: CB [place] [id number] [facility] [id number] Information: NURSE DRAW; wellness labs Lymphocytes (Bld) [#/Vol] 1.5 10*3/uL Normal 0.7-3.1 [facility]; [facility] Work Phone: Comment on above: PATIENT WAS FASTINGP ERFORMED BY: CLIFF [address] [id number] Information: NURSE DRAW; wellness labs Lymphocytes/100 WBC (Bld) 19 % Normal [facility]; [facility] Work Phone: Comment on above: PATIENT WAS FASTINGP ERFORMED BY: CLIFF [address] [id number] Information: NURSE DRAW; wellness labs MCH (RBC) [Entitic mass] 33.7 pg Abnormal 26.6-33.0 [facility] Internal [facility]; [facility] Work Phone: Comment on above: PATIENT WAS FASTINGP ERFORMED BY: CLIFF [address] [id number] Information: NURSE DRAW; wellness labs MCHC (RBC) [Mass/Vol] 33.8 g/dL Normal 31.5-35.7 [facility] Internal [facility]; [facility] Work Phone: Comment on above: PATIENT WAS FASTINGP ERFORMED BY: CLIFF [address] [id number] Information: NURSE DRAW; wellness labs MCV (RBC) [Entitic vol] 100 fL Abnormal 79-97 [facility]; [facility] Work Phone: Comment on above: PATIENT WAS FASTINGP ERFORMED BY: [address] [id number] Information: NURSE DRAW; wellness labs Monocytes (Bld) [#/Vol] 0.5 10*3/uL Normal 0.1-0.9 [facility]; [facility] Work Phone: Comment on above: PATIENT WAS FASTINGP ERFORMED BY: CLIFF [facility]6370 [facility] [id number] Information: NURSE DRAW; wellness labs Monocytes/100 WBC (Bld) 6 % Normal [facility]; [facility] Work Phone: Comment on above: PATIENT WAS FASTINGP ERFORMED BY: CLIFF KhoaGavino JohnsonJydnqr3227 [facility] [id number] Information: NURSE DRAW; wellness labs Neutrophils (Bld) [#/Vol] 5.3 10*3/uL Normal 1.4-7.0 [facility]; [facility] Work Phone: Comment on above: PATIENT WAS FASTINGP ERFORMED BY: CLIFF KhoaGavino JohnsonJigojn94[address] [id number] Information: NURSE DRAW; wellness labs Neutrophils/100 WBC (Bld) 70 % Normal [facility]; [facility] Work Phone: Comment on above: PATIENT WAS FASTINGP ERFORMED BY: CLIFF Johnson[address] [id number] Information: NURSE DRAW; wellness labs Platelets (Bld) [#/Vol] 226 10*3/uL Normal 150-450 [facility]; [facility] Work Phone: Comment on above: PATIENT WAS FASTINGP ERFORMED BY: CLIFF [address] [id number] Information: NURSE DRAW; wellness labs RBC (Bld) [#/Vol] 4.75 10*6/uL Normal 4.14-5.80 [facility] Internal Medicine; [facility] Work Phone: Comment on above: PATIENT WAS FASTINGP ERFORMED BY: CLIFF [facility] CenterGavino JohnsonGxmorc[address] [id number] Information: NURSE DRAW; wellness labs WBC (Bld) [#/Vol] 7.6 10*3/uL Normal 3.4-10.8 [facility]; [facility] Work Phone: Comment on above: PATIENT WAS FASTINGP ERFORMED BY: CB [facility] Rqikvu1763 Rodas RoadDublin [place] [id number] Information: NURSE DRAW; wellness labs METABOLIC PANEL, JENNIFER JIMENEZ ([id number])Ordered By: Maintenance Helper Utility Engineer on 06-05-2021 Albumin [Mass/Vol] 4.7 g/dL Normal 3.7-4.7 [facility] Internal Medicine; [facility] Work Phone: Comment on above: PATIENT WAS FASTINGP ERFORMED BY: CB [facility] Nrefgz2286 Rodas RoadDublin [place] [id number] Albumin/Globulin [Mass ratio] 2.2 {ratio} Normal 1.2-2.2 [facility]; [facility] Work Phone: Comment on above: PATIENT WAS FASTINGP ERFORMED BY: CB [facility] Sflpuk0000 Rodas RoadDublin [place] [id number] ALP [Catalytic activity/Vol] 89 U/L Normal 44-121 [facility]; [facility] Work Phone: Comment on above: Please note refere nce interval change PATIENT WAS FASTINGP ERFORMED BY: CB [facility] Spkjnt5866 Rodas RoadDublin [place] [id number] ALT [Catalytic activity/Vol] 15 U/L Normal 0-44 [facility]; [facility] Work Phone: Comment on above: PATIENT WAS FASTINGP ERFORMED BY: CB [facility] Jbjilo0848 Rodas RoadDublin [place] [id number] AST [Catalytic activity/Vol] 17 U/L Normal 0-40 [facility]; [facility] Work Phone: Comment on above: PATIENT WAS FASTINGP ERFORMED BY: CB [facility] Ljsrqb0538 Rodas RoadDublin [place] [id number] Bilirubin [Mass/Vol] 0.3 mg/dL Normal 0.0-1.2 [facility] Internal Medicine; [facility] Work Phone: Comment on above: PATIENT WAS FASTINGP ERFORMED BY: CB [facility] Lapyyh5634 Rodas RoadDublin [place] [id number] Calcium [Mass/Vol] 9.7 mg/dL Normal 8.6-10.2 [facility] Internal Medicine; [facility] Work Phone: Comment on above: PATIENT WAS FASTINGP ERFORMED BY: LabFult[facility] Ttiokv9414 [address] RoadFormerly [facility] Hospitalin [place] [id number] Chloride [Moles/Vol] 104 mmol/L Normal 96-106 Comp rehensive Internal Medicine; [facility] Work Phone: Comment on above: PATIENT WAS FASTINGP ERFORMED BY: [facility] Ffwpas[address] [facility] [id number] CO2 [Moles/Vol] 21 mmol/L Normal 20-[address] [facility]; [facility] Work Phone: Comment on above: PATIENT WAS FASTINGP ERFORMED BY: [facility] [facility] [id number] Creatinine [Mass/Vol] 1.00 mg/dL Normal 0.76-1.27 [facility] prehensive Internal Medicine; [facility] Work Phone: Comment on above: PATIENT WAS FASTINGP ERFORMED BY: [facility]6370 [facility] [id number] GFR/1.73 sq M.predicted among blacks CKD-EPI (S/P/Bld) [Vol rate/Area] 84 mL/min/1.73 Normal [facility]; [facility] Work Phone: Comment on above: [facility] currently reports eGFR in compliance with the current recommendations of the National Kidney Foundation. [facility] will update reporting as new guidelines are published from the NKF-ASN Task force. PATIENT WAS FASTINGP ERFORMED BY: [facility] Centerlin[address] [facility] [id number] GFR/1.73 sq M.predicted among non-blacks CKD-EPI (S/P/Bld) [Vol rate/Area] 73 mL/min/1.73 Normal [facility]; [facility] Work Phone: Comment on above: PATIENT WAS FASTINGP ERFORMED BY: [facility] Atmpfh[address] [facility] [id number] Globulin (S) [Mass/Vol] 2.1 g/dL Normal 1.5-4.5 [facility] Internal [facility]; [facility] Work Phone: Comment on above: PATIENT WAS FASTINGP ERFORMED BY: CLIFF Anilkristopher Gzngcn3357 [facility] [id number] Glucose [Mass/Vol] 87 mg/dL Normal 65-99 [facility] Internal Medicine; [facility] Work Phone: Comment on above: PATIENT WAS FASTINGP ERFORMED BY: CLIFF [facility] Vrcoaj0913 [facility] [id number] Potassium [Moles/Vol] 4.0 mmol/L Normal 3.5-5.2 [facility]; [facility] Work Phone: Comment on above: PATIENT WAS FASTINGP ERFORMED BY: CLIFF [facility] Lwcpzp1949 [facility] [id number] Protein [Mass/Vol] 6.8 g/dL Normal 6.0-8.5 [facility] Internal Medicine; [facility] Work Phone: Comment on above: PATIENT WAS FASTINGP ERFORMED BY: CLIFF LabSara Ytwphr1193 [facility] [id number] Sodium [Moles/Vol] 139 mmol/L Normal 134-144 [facility] Internal Medicine; [facility] Work Phone: Comment on above: PATIENT WAS FASTINGP ERFORMED BY: CLIFF [facility] Phkfux8057 [facility] [id number] Urea nitrogen [Mass/Vol] 21 mg/dL Normal 8-27 [facility] Internal Medicine; [facility] Work Phone: Comment on above: PATIENT WAS FASTINGP ERFORMED BY: CLIFF [facility] Uibycr5837 [facility] [id number] Urea nitrogen/Creatinine [Mass ratio] 21 mg/mg Normal 10-24 [facility]; [facility] Work Phone: Comment on above: PATIENT WAS FASTINGP ERFORMED BY: CLIFF [facility] Hfeael1411 [facility] [id number] Office Visit: hernia repair f/uon 04-30-2017 Documentation of current medications (procedure) Done Invalid Interpretation Code [facility] [employer] Work Phone: Fall risk assessment No Invalid Interpretation Code [facility] [employer] Work Phone: Tobacco smoking status NHIS Never Invalid Interpretation Code [facility] [employer] Work Phone: Tobacco use CPHS Never smoker Invalid Interpretation Code [facility] [employer] Work Phone: Office Visiton 04-15-2017 Documentation of current medications (procedure) Done Invalid Interpretation Code [facility] [employer] Work Phone: Fall risk assessment No Invalid Interpretation Code [facility] [employer] Work Phone: Tobacco smoking status NHIS Never Invalid Interpretation Code [facility] [employer] Work Phone: Tobacco use CPHS Never smoker Invalid Interpretation Code [facility] [employer] Work Phone: Flow Cytometryon 2017 Comment See Below Normal [facility] Comment on above: Result Comment: Viab ility 7AAD = 92%The B-cells are polytypic and the T-cells show no elmore T-cellantigen deletion. CD4/CD8 ratio is 1.8:1. CD56+ NK-cells andCD57+ T-LGL's are within normal limits. Performed By: #### F LOW ####[place] [address] Flow Cytometry Rslt: See Sep Report Normal [facility] Comment on above: Result Comment: Thes e [...] [facility] Naseem Jackson M.D., Nuclear Plant Construction Worker [address] [place] [id number] Performed By: #### F LOWG ####[address] [address] Interpretation: See Below Normal [facility] Comment on above: Result Comment: In t he sample analyzed, there is no evidence of B or T-celllymphoproliferative disorders. Performed By: #### F LOWG ####[address] [address] Flow Cytometryon 04-10-2017 Source: Blood Normal [facility] Comment on above: Performed By: #### F LOWG ####[place] [address] Green Venipunctureon 017 Green Venipuncture COMPLETED Normal [facility] Comment on above: Performed By: #### G VENP ####[place] [address] LD,Total Bloodon 04-09-2017 LD,Total Blood 207 U/L Normal 84-246 [facility] Comment on above: Performed By: #### L DH ####[place] [address] Oncology Hemogram/Diffon Basophils Auto #/vol (Bld) 0.04 thou/cmm Normal 0.00-0.08 [facility] Comment on above: Performed By: #### G OHEM ####[address] [address] Basophils/100 WBC Auto (Bld) 0.6 % Normal [facility] Comment on above: Performed By: #### G OHEM ####[address] [address] Eosinophils 0.35 thou/cmm Normal 0.00-0.36 [facility] Comment on above: Performed By: #### G OHEM ####[address] [address] Eosinophils/100 leukocytes 5.1 % Normal [facility] Comment on above: Performed By: #### G OHEM ####[place] [address] Erythrocyte distribution width Auto Ratio (RBC) 11.7 % Low 11.8-14.5 [facility] Comment on above: Performed By: #### G OHEM ####[place] [address] Erythrocytes (RBC) 4.68 mil/cmm Normal 4.22-5.80 [facility] Comment on above: Performed By: #### G OHEM ####[place] [address] Hematocrit (HCT) 44.7 % Normal 39.6-50.7 [facility] Comment on above: Performed By: #### G OHEM ####[place] [address] Hemoglobin mass conc (Bld) 16.2 g/dL Normal 13.2-17.4 [facility] Comment on above: Performed By: #### G OHEM ####[place] [address] Lymphocytes 1.63 thou/cmm Normal 0.68-2.93 [facility] Comment on above: Performed By: #### G OHEM ####[place] [address] Lymphocytes/100 leukocytes 24.0 % Normal [facility] Comment on above: Performed By: #### G OHEM ####[place] [address] MCH 34.6 pg High 27.4-32.8 [facility] Comment on above: Performed By: #### G OHEM ####[place] [address] MCHC mass conc (RBC) 36.2 % High 31.9-35.6 [facility] Comment on above: Performed By: #### G OHEM ####[place] [address] MCV 95.5 fL Normal 81.8-95.6 [facility] Comment on above: Performed By: #### G OHEM ####[place] [address] Monocytes 0.50 thou/cmm Normal 0.19-0.80 [facility] Comment on above: Performed By: #### G OHEM ####[facility] [place], [place] [address] Monocytes/100 leukocytes 7.4 % Normal [facility] Comment on above: Performed By: #### G OHEM ####[facility] [place] [address] Platelet mean volume (PMV) 11.0 fL Normal 8.8-12.1 [facility] Comment on above: Performed By: #### G OHEM ####[place] [address] Platelets 201 thou/cmm Normal 150-370 [facility] Comment on above: Performed By: #### G OHEM ####[place] [address] Seg Neutrophil 62.9 % Normal [facility] Comment on above: Performed By: #### G OHEM ####[place] [address] Seg. Neut.# 4.28 thou/cmm Normal 1.35-7.21 [facility] Comment on above: Performed By: #### G OHEM ####[place] [address] WBC (Leukocytes) 6.8 thou/cmm Normal 4.4-9.7 [facility] Comment on above: Performed By: #### G OHEM ####[place] [address] Uric Acid Bloodon 04-09-2017 Uric Acid Blood 5.6 mg/dL Normal 3.5-7.2 [facility] Comment on above: Performed By: #### U OLIVIA ####[place] [address] Replaced Document: Siddharth Radha FARAH Observationson 09-25-2016 electrocardiogram interpretation Sinus Rhythm Voltage criteria for LVH (R(V5) exceeds 2.60 mV). -Nonspecific ST depression -Seen with left ventricular hypertrophy (strain) or digitalis effect. ABNORMAL Invalid Interpretation Code [facility] [employer] Work Phone: GE use only - for LinkLogic import when terms are not otherwise specified 436 ms Invalid Interpretation Code [facility] [employer] Work Phone: P wave axis, electrocardiogram 69 deg Invalid Interpretation Code [facility] [employer] Work Phone: WV interval, electrocardiogram 170 ms Invalid Interpretation Code [facility] [employer] Work Phone: Pulse (Heart Rate) 66 /min Invalid Interpretation Code [facility] [employer] Work Phone: QRS axis, electrocardiogram 19 deg Invalid Interpretation Code [facility] [employer] Work Phone: QRS duration, electrocardiogram 94 ms Invalid Interpretation Code [facility] [employer] Work Phone: QT interval, electrocardiogram new path ms Invalid Interpretation Code [facility] [employer] Work Phone: T wave axis, electrocardiogram 41 deg Invalid Interpretation Code [facility] [employer] Work Phone: Clinical Lists Update: 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 09-21-2016 Left ventricular Ejection fraction 55 % Invalid Interpretation Code [facility] [employer] Work Phone: Clinical Lists Update: 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 06-27-2016 Cholesterol 191 mg/dL Invalid Interpretation Code [facility] [employer] Work Phone: HDL Cholesterol 76 mg/dL Invalid Interpretation Code [facility] [employer] Work Phone: LDL Cholesterol 101 mg/dL Invalid Interpretation Code [facility] [employer] Work Phone: Triglyceride 69 mg/dL Invalid Interpretation Code [facility] [employer] Work Phone: Office Visiton 09-23-2015 General cardiovascular disease 10Y risk [#] [place].D'Agostino 6 % Invalid Interpretation Code [facility] [employer] Work Phone: Lab Report: Lipid Profileon 09-17-2015 very low density lipoproteins 12 mg/dL Invalid Interpretation Code 5-40 [facility] [employer] Work Phone: Lab Report: Liver Profileon 09-17-2015 Alanine aminotransferase (ALT) 28 U/L Invalid Interpretation Code 12-78 [facility] [employer] Work Phone: Albumin 3.8 g/dL Invalid Interpretation Code 3.4-5.0 [facility] [employer] Work Phone: Alkaline phosphatase (ALP) 75 U/L Invalid Interpretation Code 50-136 [facility] [employer] Work Phone: Aspartate aminotransferase (AST) 18 U/L Invalid Interpretation Code 15-37 [facility] [employer] Work Phone: Bilirubin (direct) 0.14 mg/dL Invalid Interpretation Code 0.00-0.30 [facility] [employer] Work Phone: Bilirubin (total) 0.50 mg/dL Invalid Interpretation Code 0.20-1.00 [facility] [employer] Work Phone: Globulin 3.4 g/dL Invalid Interpretation Code 2.3-3.5 [facility] [employer] Work Phone: Protein 7.2 g/dL Invalid Interpretation Code 6.4-8.2 [facility] [employer] Work Phone: Lab Reporton 07-02-2015 Chloride 105 mmol/L Invalid Interpretation Code [facility] [employer] Work Phone: CO2 23.0 mmol/L Invalid Interpretation Code [facility] [employer] Work Phone: Creatinine 1.19 mg/dL Invalid Interpretation Code [facility] [employer] Work Phone: Potassium 4.0 mmol/L Invalid Interpretation Code [facility] [employer] Work Phone: Sodium 140 mmol/L Invalid Interpretation Code [facility] [employer] Work Phone: Urea nitrogen 21 mg/dL Invalid Interpretation Code [facility] [employer] Work Phone: Office Visiton 08-17-2014 cardiac risk group B Invalid Interpretation Code [facility] [employer] Work Phone: Clinical Lists Update: 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 06-04-2014 Anion gap 9 mmol/L Invalid Interpretation Code [facility] [employer] Work Phone: BUN/Creatinine Ratio 17.3 mg/mg Invalid Interpretation Code [facility] [employer] Work Phone: Erythrocytes (RBC) 4.56 10*6/uL Low [facility] [employer] Work Phone: Glucose 84 mg/dL Invalid Interpretation Code [facility] [employer] Work Phone: Hematocrit (HCT) 44.2 % Invalid Interpretation Code [facility] [employer] Work Phone: Hemoglobin (HGB) 15.9 g/dL Invalid Interpretation Code [facility] [employer] Work Phone: MCH 34.9 pg High [facility] [employer] Work Phone: MCHC 36.0 g/dL Invalid Interpretation Code [facility] [employer] Work Phone: MCV 96.9 fL High [facility] [employer] Work Phone: Platelets 225 10*3/mm3 Invalid Interpretation Code [facility] [employer] Work Phone: Thyroid stimulating hormone (TSH) 1.72 u[iU]/mL Invalid Interpretation Code [facility] [employer] Work Phone: WBC (Leukocytes) 5.6 10*3/uL Invalid Interpretation Code [facility] [employer] Work Phone: Clinical Lists Update: 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 06-06-2012 Albumin/Globulin Ratio 1.1 {ratio} Invalid Interpretation Code [facility] [employer] Work Phone: basophils as percent of blood leukocytes, manual count 0.9 % Invalid Interpretation Code [facility] [employer] Work Phone: Calcium 9.1 mg/dL Invalid Interpretation Code [facility] [employer] Work Phone: eosinophils as percent of blood leukocytes, manual count 7.1 % High [facility] [employer] Work Phone: Globulin 3.5 g/dL Invalid Interpretation Code [facility] [employer] Work Phone: Lymphocytes/100 leukocytes 26.3 % Invalid Interpretation Code [facility] [employer] Work Phone: Monocytes/100 leukocytes 6.5 % Invalid Interpretation Code [facility] [employer] Work Phone: neutrophils, band form as percent of blood leukocytes, manual count 59.2 % Invalid Interpretation Code [facility] [employer] Work Phone: Office Visiton 04-17-2012 Colonoscopy (procedure) Colonoscopy (procedure) Invalid Interpretation Code [facility] [employer] Work Phone: Vital Signs Date Time Vital Sign Value Performing Clinician Facility 01-26-2025 12:59-0400 Body height 182.[address] Francheska Alonzo DO Work Phone: [facility] 01-26-2025 12:59-0400 Body mass index (BMI) [Ratio] 23 kg/m2 Dr. Francheska Alonzo DO Work Phone: [facility] 01-26-2025 12:59-0400 Body weight 77.[address] Francheska Alonzo DO Work Phone: [facility] 01-26-2025 12:59-0400 Diastolic blood pressure 67 mm[Hg] Dr. Francheska Alonzo DO Work Phone: [facility] 01-26-2025 12:59-0400 Heart rate 55 /min Dr. Francheska Alonzo DO Work Phone: [facility] 01-26-2025 12:59-0400 Respiratory rate 16 /min Dr. Francheska Alonzo DO Work Phone: [facility] 01-26-2025 12:59-0400 Systolic blood pressure 103 mm[Hg] Dr. Francheska Alonzo DO Work Phone: [facility] 12-03-2023 13:04-0400 Body height 182.[address] Francheska Alonzo Work Phone: [facility] 12-03-2023 13:04-0400 Body mass index (BMI) [Ratio] 23.2 kg/m2 Dr. Francheska Alonzo Work Phone: [facility] 12-03-2023 13:04-0400 Body weight 77.[address] Francheska Alonzo Work Phone: [facility] 12-03-2023 13:04-0400 Diastolic blood pressure 74 mm[Hg] Dr. Francheska Alonzo Work Phone: [facility] 12-03-2023 13:04-0400 Heart rate 55 /min Dr. Francheska Alonzo Work Phone: [facility] 12-03-2023 13:04-0400 Respiratory rate 16 /min Dr. Pritchard Fast Work Phone: [facility] 12-03-2023 13:04-0400 Systolic blood pressure 126 mm[Hg] Dr. Pritchard Fast Work Phone: [facility] 08-05-2023 15:02-0500 Body height 182.[address] Pritchard Fast Work Phone: [facility] 08-05-2023 15:02-0500 Body mass index (BMI) [Ratio] 23.2 kg/m2 Dr. Pritchard Fast Work Phone: [facility] 08-05-2023 15:02-0500 Body weight 77.[address] Pritchard Fast Work Phone: [facility] 08-05-2023 15:02-0500 Respiratory rate 16 /min Dr. Pritchard Fast Work Phone: [facility] 06-03-2023 11:02-0400 Body height 185.42 cm Naida Montenegro [facility]; [facility] Work Phone: 06-03-2023 11:02-0400 Body mass index (BMI) [Ratio] 23.27 kg/m2 Naida Montenegro [facility]; [facility] Work Phone: 06-03-2023 11:02-0400 Body surface area Derived from formula 2.04 m2 Naida Montenegro [facility]; [facility] Work Phone: 06-03-2023 11:02-0400 Body temperature 99 [degF] Naida Montenegro [facility]; [facility] Work Phone: Comment on above: Method: Thermal Scan 06-03-2023 11:02-0400 Body weight 80 kg Naida Montenegro [facility]; [facility] Work Phone: 06-03-2023 11:02-0400 Diastolic blood pressure 70 mm[Hg] Naida Montenegro [facility]; [facility] Work Phone: Comment on above: Patient Position: Sitting; Cuff Location : Left Arm; Cuff Size: Standard 06-03-2023 11:02-0400 Heart rate 61 /min Naida Montenegro [facility]; [facility] Work Phone: Comment on above: Pattern: Regular 06-03-2023 11:02-0400 Respiratory rate 16 /min Naida Montenegro [facility]; [facility] Work Phone: Comment on above: Pattern: Unlabored 06-03-2023 11:02-0400 Systolic blood pressure 104 mm[Hg] Naida Montenegro [facility]; [facility] Work Phone: Comment on above: Patient Position: Sitting; Cuff Location : Left Arm; Cuff Size: Standard 02-25-2023 12:54-0400 Body height 182.[address] Pritchard Fast Work Phone: [facility] 02-25-2023 12:54-0400 Body mass index (BMI) [Ratio] 24 kg/m2 Dr. Francheska Alonoz Work Phone: [facility] 02-25-2023 12:54-0400 Body weight 80.[address] Pritchard Fast Work Phone: [facility] 02-25-2023 12:54-0400 Diastolic blood pressure 75 mm[Hg] Dr. Pritchard Fast Work Phone: [facility] 02-25-2023 12:54-0400 Heart rate 52 /min Dr. Pritchard Fast Work Phone: [facility] 02-25-2023 12:54-0400 SaO2% (BldA) [Mass fraction] 96 % Dr. Pritchard Fast Work Phone: [facility] 02-25-2023 12:54-0400 Systolic blood pressure 143 mm[Hg] Dr. Pritchard Fast Work Phone: [facility] 02-25-2023 10:38-0400 Body height 185.42 cm Naida Montenegro [employer] [facility]; [facility] Work Phone: 02-25-2023 10:38-0400 Body mass index (BMI) [Ratio] 23.22 kg/m2 Naida Montenegro [facility]; [facility] Work Phone: 02-25-2023 10:38-0400 Body surface area Derived from formula 2.04 m2 Naida Montenegro [facility]; [facility] Work Phone: 02-25-2023 10:38-0400 Body temperature 98.2 [degF] Naida Montenegro [facility]; [facility] Work Phone: Comment on above: Method: Thermal Scan 02-25-2023 10:38-0400 Body weight 79.83 kg Naida Montenegro [facility]; [facility] Work Phone: 02-25-2023 10:38-0400 Diastolic blood pressure 70 mm[Hg] Naida Montenegro [facility]; [facility] Work Phone: Comment on above: Patient Position: Sitting; Cuff Location : Left Arm; Cuff Size: Standard 02-25-2023 10:38-0400 Heart rate 63 /min Naida Montenegro [facility]; [facility] Work Phone: Comment on above: Pattern: Regular 02-25-2023 10:38-0400 Respiratory rate 16 /min Naida Montenegro [facility]; [facility] Work Phone: Comment on above: Pattern: Unlabored 02-25-2023 10:38-0400 SaO2% (BldA) [Mass fraction] 99 % Naida Montenegro [facility]; [facility] Work Phone: Comment on above: Room air 02-25-2023 10:38-0400 Systolic blood pressure 118 mm[Hg] Naida Montenegro [facility]; [facility] Work Phone: Comment on above: Patient Position: Sitting; Cuff Location : Left Arm; Cuff Size: Standard 02-13-2023 08:28-0400 Body temperature 97.6 [degF] Dr. Pritchard Fast Work Phone: [facility] 02-13-2023 08:28-0400 Diastolic blood pressure 86 mm[Hg] Dr. Pritchard Fast Work Phone: [facility] 02-13-2023 08:28-0400 Heart rate 54 /min Dr. Pritchard Fast Work Phone: [facility] 02-13-2023 08:28-0400 Respiratory rate 16 /min Dr. Pritchard Fast Work Phone: [facility] 02-13-2023 08:28-0400 SaO2% (BldA) [Mass fraction] 99 % Dr. Pritchard Fast Work Phone: [facility] 02-13-2023 08:28-0400 Systolic blood pressure 135 mm[Hg] Dr. Pritchard Fast Work Phone: [facility] 02-13-2023 06:48-0400 Body height 182.[address] Pritchard Fast Work Phone: [facility] 02-13-2023 06:48-0400 Body mass index (BMI) [Ratio] 23.9 kg/m2 Dr. Pritchard Fast Work Phone: [facility] 02-13-2023 06:48-0400 Body weight [address] Pritchard Fast Work Phone: [facility] 01-14-2023 13:34-0400 Body mass index (BMI) [Ratio] 21.7 kg/m2 Dr. Pritchard Fast Work Phone: [facility] 01-14-2023 13:34-0400 Body weight 72.[address] Pritchard Fast Work Phone: [facility] 01-14-2023 13:34-0400 Diastolic blood pressure 79 mm[Hg] Dr. Pritchard Fast Work Phone: [facility] 01-14-2023 13:34-0400 Heart rate 61 /min Dr. Pritchard Fast Work Phone: [facility] 01-14-2023 13:34-0400 SaO2% (BldA) [Mass fraction] 98 % Dr. Pritchard Fast Work Phone: [facility] 01-14-2023 13:34-0400 Systolic blood pressure 133 mm[Hg] Dr. Pritchard Fast Work Phone: [facility] 12-03-2022 10:08-0400 Body height 184.[address] Pritchard Fast Work Phone: [facility] 12-03-2022 10:08-0400 Body weight 75.[address] Pritchard Fast Work Phone: [facility] 12-03-2022 06:55-0400 Body mass index (BMI) [Ratio] 21.9 kg/m2 Dr. Pritchard Fast Work Phone: [facility] 11-29-2022 12:53-0400 Body mass index (BMI) [Ratio] 22.3 kg/m2 Dr. Pritchard Fast Work Phone: [facility] 11-29-2022 12:53-0400 Body weight 76.[address] Pritchard Fast Work Phone: [facility] 11-29-2022 12:53-0400 Diastolic blood pressure 72 mm[Hg] Dr. Pritchard Fast Work Phone: [facility] 11-29-2022 12:53-0400 Heart rate 55 /min Dr. Pritchard Fast Work Phone: [facility] 11-29-2022 12:53-0400 Respiratory rate 18 /min Dr. Pritcahrd Fast Work Phone: [facility] 11-29-2022 12:53-0400 SaO2% (BldA) [Mass fraction] 100 % Dr. Pritchard Fast Work Phone: [facility] 11-29-2022 12:53-0400 Systolic blood pressure 133 mm[Hg] Dr. Francheska Fast Work Phone: [facility] 11-12-2022 10:23-0500 Body height 185.42 cm Naida Montenegro [facility]; [facility] Work Phone: 11-12-2022 10:23-0500 Body mass index (BMI) [Ratio] 23.09 kg/m2 Naida Montenegro [facility]; [facility] Work Phone: 11-12-2022 10:23-0500 Body surface area Derived from formula 2.03 m2 Naida Montenegro [facility]; [facility] Work Phone: 11-12-2022 10:23-0500 Body temperature 98.4 [degF] Naida Montenegro [facility]; [facility] Work Phone: Comment on above: Method: Thermal Scan 11-12-2022 10:23-0500 Body weight 79.38 kg Naida Montenegro [facility]; [facility] Work Phone: 11-12-2022 10:23-0500 Diastolic blood pressure 68 mm[Hg] Naida Montenegro [facility]; [facility] Work Phone: Comment on above: Patient Position: Sitting; Cuff Location : Left Arm; Cuff Size: Standard 11-12-2022 10:23-0500 Heart rate 70 /min Naida Montenegro [facility]; [facility] Work Phone: Comment on above: Pattern: Regular 11-12-2022 10:23-0500 Respiratory rate 16 /min Naida Montenegro [facility]; [facility] Work Phone: Comment on above: Pattern: Unlabored 11-12-2022 10:23-0500 Systolic blood pressure 120 mm[Hg] Naida Montenegro [facility]; [facility] Work Phone: Comment on above: Patient Position: Sitting; Cuff Location : Left Arm; Cuff Size: Standard 10-16-2022 14:07-0500 Body mass index (BMI) [Ratio] 23.2 kg/m2 Dr. Pritchard Fast Work Phone: [facility] 10-16-2022 14:07-0500 Body weight 79.[address] Pritchard Fast Work Phone: [facility] 10-16-2022 14:07-0500 Diastolic blood pressure 67 mm[Hg] Dr. Pritchard Fast Work Phone: [facility] 10-16-2022 14:07-0500 Heart rate 59 /min Dr. Pritchard Fast Work Phone: [facility] 10-16-2022 14:07-0500 Respiratory rate 18 /min Dr. Pritchard Fast Work Phone: [facility] 10-16-2022 14:07-0500 Systolic blood pressure 125 mm[Hg] Dr. Pritchard Clinton Work Phone: [facility] 07-30-2022 13:24-0500 Body height 185.42 cm Naida Montenegro [facility]; [facility] Work Phone: 07-30-2022 13:24-0500 Body mass index (BMI) [Ratio] 22.69 kg/m2 Naida Montenegro [facility]; [facility] Work Phone: 07-30-2022 13:24-0500 Body surface area Derived from formula 2.02 m2 Naida Montenegro [facility]; [facility] Work Phone: 07-30-2022 13:24-0500 Body temperature 97 [degF] Naida Montenegro [facility]; [facility] Work Phone: Comment on above: Method: Thermal Scan 07-30-2022 13:24-0500 Body weight 78.02 kg Naida Montenegro [facility]; [facility] Work Phone: 07-30-2022 13:24-0500 Diastolic blood pressure 72 mm[Hg] Naida Montenegro [facility]; [facility] Work Phone: Comment on above: Patient Position: Sitting; Cuff Location : Left Arm; Cuff Size: Standard 07-30-2022 13:24-0500 Heart rate 68 /min Naida [email or web address] [facility]; [facility] Work Phone: Comment on above: Pattern: Regular 07-30-2022 13:24-0500 Respiratory rate 16 /min Naidaeris [email or web address] [facility]; [facility] Work Phone: Comment on above: Pattern: Unlabored 07-30-2022 13:24-0500 Systolic blood pressure 118 mm[Hg] Naida [email or web address] [facility]; [facility] Work Phone: Comment on above: Patient Position: Sitting; Cuff Location : Left Arm; Cuff Size: Standard 04-10-2022 09:35-0400 Body height 185.4 cm Mal Joseph MD Work Phone: [facility] 04-10-2022 09:35-0400 Body weight 79.29 kg Mal Joseph MD Work Phone: [facility] 04-10-2022 09:35-0400 Diastolic blood pressure 84 mm[Hg] Mal Joseph MD Work Phone: [facility] 04-10-2022 09:35-0400 Heart rate 76 /min Mal Joseph MD Work Phone: [facility] 04-10-2022 09:35-0400 SaO2% (BldA) [Mass fraction] 98 % Mal Joseph MD Work Phone: [facility] 04-10-2022 09:35-0400 Systolic blood pressure 136 mm[Hg] Mal Joseph MD Work Phone: [facility] 03-23-2022 10:11-0400 Body height 185.42 cm Naida [email or web address] [facility]; [facility] Work Phone: 03-23-2022 10:11-0400 Body mass index (BMI) [Ratio] 22.69 kg/m2 NaidaMcKinstry Reklaim [facility]; [facility] Work Phone: 03-23-2022 10:11-0400 Body surface area Derived from formula 2.02 m2 Naida Montenegro [facility]; [facility] Work Phone: 03-23-2022 10:11-0400 Body temperature 97 [degF] Naida Montenegro [facility]; [facility] Work Phone: Comment on above: Method: Thermal Scan 03-23-2022 10:11-0400 Body weight 78.02 kg Naida Montenegro [facility]; [facility] Work Phone: 03-23-2022 10:11-0400 Diastolic blood pressure 62 mm[Hg] Naida Montenegro [facility]; [facility] Work Phone: Comment on above: Patient Position: Sitting; Cuff Location : Left Arm; Cuff Size: Standard 03-23-2022 10:11-0400 Heart rate 62 /min Naida Montenegro [facility]; [facility] Work Phone: Comment on above: Pattern: Regular 03-23-2022 10:11-0400 Respiratory rate 16 /min Naida Montenegro [facility]; [facility] Work Phone: Comment on above: Pattern: Unlabored 03-23-2022 10:11-0400 Systolic blood pressure 104 mm[Hg] Naida Montenegro [facility]; [facility] Work Phone: Comment on above: Patient Position: Sitting; Cuff Location : Left Arm; Cuff Size: Standard 01-24-2022 11:00-0400 Body height 185.42 cm Naida Montenegro [facility]; [facility] Work Phone: 01-24-2022 11:00-0400 Body mass index (BMI) [Ratio] 22.69 kg/m2 Naida Montenegro [facility]; [facility] Work Phone: 01-24-2022 11:00-0400 Body surface area Derived from formula 2.02 m2 Naida Montenegro [facility]; [facility] Work Phone: 01-24-2022 11:00-0400 Body temperature 96.9 [degF] Naida Montenegro [facility]; [facility] Work Phone: Comment on above: Method: Thermal Scan 01-24-2022 11:00-0400 Body weight 78.02 kg Naida Montenegro [facility]; [facility] Work Phone: 01-24-2022 11:00-0400 Diastolic blood pressure 70 mm[Hg] Naida Montenegro [facility]; [facility] Work Phone: Comment on above: Patient Position: Sitting; Cuff Location : Left Arm; Cuff Size: Standard 01-24-2022 11:00-0400 Heart rate 66 /min Naida Montenegro [facility]; [facility] Work Phone: Comment on above: Pattern: Regular 01-24-2022 11:00-0400 Respiratory rate 16 /min Naida Montenegro [facility]; [facility] Work Phone: Comment on above: Pattern: Unlabored 01-24-2022 11:00-0400 Systolic blood pressure 120 mm[Hg] Naida Montenegro [facility]; [facility] Work Phone: Comment on above: Patient Position: Sitting; Cuff Location : Left Arm; Cuff Size: Standard 01-10-2022 11:55-0400 Body temperature 97.3 [degF] Dr. Spike Mullen Work Phone: [facility] Work Phone: 01-10-2022 11:55-0400 Diastolic blood pressure 88 mm[Hg] Dr. Spike Mullen Work Phone: [facility] Work Phone: 01-10-2022 11:55-0400 Heart rate 62 /min Dr. Spike Mullen Work Phone: [facility] Work Phone: 01-10-2022 11:55-0400 Respiratory rate 16 /min Dr. Spike Mullen Work Phone: [facility] Work Phone: 01-10-2022 11:55-0400 SaO2% (BldA) [Mass fraction] 92 % Dr. Spike Mullen Work Phone: [facility] Work Phone: 01-10-2022 11:55-0400 Systolic blood pressure 135 mm[Hg] Dr. Spike Mullen Work Phone: [facility] Work Phone: 01-10-2022 10:18-0400 Body height 185.[address] Spike Mullen Work Phone: [facility] Work Phone: 01-10-2022 10:18-0400 Body mass index (BMI) [Ratio] 21.8 kg/m2 Dr. Spike Mullen Work Phone: [facility] Work Phone: 01-10-2022 10:18-0400 Body weight [address] Spike Mullen Work Phone: [facility] Work Phone: 10-25-2021 11:38-0500 Body height 185.42 cm Naida Montenegro [facility]; [facility] Work Phone: 10-25-2021 11:38-0500 Body mass index (BMI) [Ratio] 21.9 kg/m2 Naida Montenegro [facility]; [facility] Work Phone: 10-25-2021 11:38-0500 Body surface area Derived from formula 1.99 m2 Naida Montenegro [facility]; [facility] Work Phone: 10-25-2021 11:38-0500 Body temperature 97.1 [degF] Naida Montenegro [facility]; [facility] Work Phone: Comment on above: Method: Thermal Scan 10-25-2021 11:38-0500 Body weight 75.3 kg Naida Montenegro [facility]; [facility] Work Phone: 10-25-2021 11:38-0500 Diastolic blood pressure 70 mm[Hg] Naida Montenegro [facility]; [facility] Work Phone: Comment on above: Patient Position: Sitting; Cuff Location : Left Arm; Cuff Size: Standard 10-25-2021 11:38-0500 Heart rate 70 /min Naida Montenegro [facility]; [facility] Work Phone: Comment on above: Pattern: Regular 10-25-2021 11:38-0500 Respiratory rate 16 /min Naida Montenegro [facility]; [facility] Work Phone: Comment on above: Pattern: Unlabored 10-25-2021 11:38-0500 SaO2% (BldA) [Mass fraction] 97 % Naida Montenegro [facility]; [facility] Work Phone: Comment on above: Room air 10-25-2021 11:38-0500 Systolic blood pressure 118 mm[Hg] Naida Montenegro [facility]; [facility] Work Phone: Comment on above: Patient Position: Sitting; Cuff Location : Left Arm; Cuff Size: Standard 10-10-2021 12:15-0500 Diastolic blood pressure 85 mm[Hg] Dr. Spike Mullen Work Phone: [facility] Work Phone: 10-10-2021 12:15-0500 Systolic blood pressure 135 mm[Hg] Dr. Spike Mullen Work Phone: [facility] Work Phone: 10-10-2021 07:51-0500 Body weight 78.[address] Spike Mullen Work Phone: [facility] Work Phone: 10-10-2021 07:51-0500 Heart rate 74 /min Dr. Spike Mullen Work Phone: [facility] Work Phone: 10-10-2021 07:51-0500 Respiratory rate 16 /min Dr. Spike Mullen Work Phone: [facility] Work Phone: 10-10-2021 07:51-0500 SaO2% (BldA) [Mass fraction] 100 % Dr. Spike Mullen Work Phone: [facility] Work Phone: 07-11-2021 09:27-0400 Body height 185.42 cm Francheska [...] Location : Left Arm; Cuff Size: Standard 11-02-2021 09:27-0400 Heart rate 99 /min Francheska A [...] 13:10-0400 Body height 185.42 cm Yoko Slarb RN ENTEROST[facility] Work Phone: 05-16-2021 13:10-0400 Body mass index (BMI) [Ratio] 22.3 kg/m2 Yoko Slarb RN [employer] [facility]; [facility] Work Phone: 05-16-2021 13:10-0400 Body surface area Derived from formula 2 m2 Yoko Slarb RN ENTEROST[employer]AL [facility]; [facility] Work Phone: 05-16-2021 13:10-0400 Body temperature 97.6 [degF] Yoko Slarb RN ENTEROST[employer]AL [facility]; [facility] Work Phone: 05-16-2021 13:10-0400 Body weight 76.66 kg Yoko Slarb RN ENTEROSTOMAL [facility]; [facility] Work Phone: 05-16-2021 13:10-0400 Diastolic blood pressure 76 mm[Hg] Yoko Slarb RN ENTEROSTOMAL [facility]; [facility] Work Phone: Comment on above: Patient Position: Sitting; Cuff Location : Left Arm; Cuff Size: Standard 05-16-2021 13:10-0400 Heart rate 78 /min Yoko Slarb RN ENTEROSTOMAL [facility]; [facility] Work Phone: Comment on above: Pattern: Regular 05-16-2021 13:10-0400 Respiratory rate 16 /min Yoko Mahajan RN ENTEROSTOMAL [facility]; [facility] Work Phone: Comment on above: Pattern: Unlabored 05-16-2021 13:10-0400 SaO2% (BldA) [Mass fraction] 99 % Yoko Mahajan RN ENTEROSTOMAL [facility] Work Phone: Comment on above: Room air 05-16-2021 13:10-0400 Systolic blood pressure 138 mm[Hg] Yoko Mahajan RN ENTEROSTOMAL [facility] Work Phone: Comment on above: Patient Position: Sitting; Cuff Location : Left Arm; Cuff Size: Standard 10-06-2020 11:19-0500 Body mass index (BMI) [Ratio] 21.7 kg/m2 Dr. Spike Mullen Work Phone: [facility] Work Phone: 04-15-2017 15:15-0400 BMI (Body Mass Index) 20.67 kg/m2 Mal Joseph MD [facility] Work Phone: 04-15-2017 15:15-0400 Body Temperature 97.4 [degF] Mal Joseph MD [facility] Work Phone: 04-15-2017 15:15-0400 Body Temperature 97.39 [degF] Mal Joseph MD [facility] Work Phone: 04-15-2017 15:15-0400 BP Diastolic 92 mm[Hg] Mal Joseph MD [facility] Work Phone: 04-15-2017 15:15-0400 BP Systolic 155 mm[Hg] Mal Joseph MD [facility] Work Phone: 04-15-2017 15:15-0400 Height 191.77 cm Mal Joseph MD [facility] Work Phone: 04-15-2017 15:15-0400 Pulse (Heart Rate) 62 /min Mal Joseph MD [facility] Work Phone: 04-15-2017 15:15-0400 Respiratory Rate 20 /min Mal Joseph MD [facility] Work Phone: 04-15-2017 15:15-0400 Weight 76.02 kg Mal Joseph MD [facility] Work Phone: 09-25-2016 09:58-0500 BSA (Body Surface Area) 2.08 m2 Mal Joseph MD [facility] Work Phone: 08-28-2011 08:54-0500 Height 191.77 cm Mal Joseph MD [facility] Work Phone: Encounters Encounter Date Encounter Type Care Provider Facility Start: 03-08-2025 ambulatory Francheska Fast Facility:[facility] Start: 03-02-2025 ambulatory [facility] Facility :[facility] Start: 01-26-2025 End: 01-26-[address] Petros Valdez MD -[facility] Work Phone: Start: 01-26-2025 End: 01-26-[address] Francheska Alonzo DO Work Phone: [facility] Work Phone: Start: 12-23-2024 End: 12-23-[address] Francheska Alonzo DO Work Phone: [facility] Work Phone: Start: 12-23-2024 End: 12-23-[address] Francheska Alonzo DO -Laboratory Work Phone: Start: 12-23-2024 End: 12-23-2024 ambulatory Francheska Fast Facility:[facility] Start: 12-17-2024 End: 12-17-2024 Patient encounter procedure David Parra DO -[facility] Work Phone: Start: 12-17-2024 End: 12-17-2024 ambulatory David Friend Facility:[facility] Start: 10-01-2024 End: 10-01-2024 Patient encounter procedure David Parra DO -[facility] Work Phone: Start: 10-01-2024 End: 10-01-2024 ambulatory Francheska Fast Facility:[facility] Start: 07-02-2024 End: 07-02-2024 ambulatory Francheska Fast Facility:[facility] Start: 06-22-2024 End: 06-22-2024 ambulatory Francheska Fast Facility:[facility] Start: 05-10-2024 End: 05-10-2024 Emergency department patient visit Mal Aleman Facility:[facility] Start: 04-02-2024 End: 04-02-2024 ambulatory Francheska Fast Facility:[facility] Start: 03-20-2024 End: 03-20-2024 ambulatory Francheska Fast Facility:[facility] Start: 03-06-2024 End: 03-06-2024 ambulatory Francheska Fast Facility:[facility] Start: 03-02-2024 ambulatory Francheska Fast Facility:[facility] Start: 03-02-2024 End: 03-02-2024 ambulatory Francheska Fast Facility:[facility] Start: 12-25-2023 End: 12-25-[address] Francheska Alonzo Work Phone: [facility] Work Phone: Start: 12-25-2023 End: 12-25-[address] Francheska Alonzo Work Phone: [facility]Labor[facility] Work Phone: Start: 12-03-2023 End: 12-03-[address] Francheska Alonzo Work Phone: [facility] Work Phone: Start: 08-06-2023 End: 08-06-[address] Francheska Alonzo Work Phone: [facility] Work Phone: Start: 08-06-2023 End: 08-06-[address] Francheska Alonzo Work Phone: [facility]-Laboratory, Specimen Work Phone: Start: 08-05-2023 End: 08-05-[address] Francheska Alonzo Work Phone: [facility] Work Phone: Start: 07-26-2023 End: 07-26-[address] Francheska Alonzo Work Phone: [facility]-Outpatient Breast Imaging Work Phone: Start: 06-14-2023 Non-patient / Non-visit Dr. Francheska Alonzo Work Phone: [facility] Start: 06-14-2023 End: 06-14-[address] Francheska Alonzo Work Phone: [facility]-Cardiovascular Services Work Phone: Start: 06-14-2023 End: 06-14-2023 Phone Encounter Francheska Alonzo DO Work Phone: [facility] Start: 06-07-2023 End: 06-07-2023 Annotation/Addendum Francheska Alonzo DO Work Phone: [facility] Start: 06-03-2023 End: 06-03-2023 Office outpatient visit 25 minutes Francheska Alonzo DO Work Phone: [facility] Start: 05-29-2023 End: 05-29-[address] Francheska Alonzo Work Phone: [facility] Work Phone: Start: 05-29-2023 End: 05-29-[address] Francheska Alonzo Work Phone: [facility]Labor[facility] Work Phone: Start: 02-25-2023 End: 02-25-[address] Francheska Alonzo Work Phone: [facility] Start: 02-25-2023 End: 02-25-2023 Office outpatient visit 25 minutes Francheska Alonzo DO Work Phone: [facility] Start: 02-22-2023 End: 02-22-[address] Francheska Alonzo Work Phone: [facility] Work Phone: Start: 02-22-2023 End: 02-22-[address] Francheska Alonzo Work Phone: [facility]Labor[facility] Start: 02-13-2023 Non-patient / Non-visit Dr. Francheska Alonzo Work Phone: [facility] Start: 02-13-2023 End: 02-13-2023 Admission to same day surgery center Dr. Francheska Alonzo Work Phone: [facility]-Endoscopy Start: 02-13-2023 End: 02-13-[address] Francheska Alonzo Work Phone: [facility] Work Phone: Start: 01-14-2023 End: 01-14-[address] Francheska Alonzo Work Phone: [facility] Start: 12-03-2022 Non-patient / Non-visit Dr. Francheska Alonzo Work Phone: [facility] Start: 12-03-2022 End: 12-03-2022 Admission to same day surgery center Dr. Francheska Alonzo Work Phone: 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 Francheska Alonzo Work Phone: [facility] Work Phone: Start: 11-30-2022 Non-patient / Non-visit Dr. Pritchard Fast Work Phone: [facility] Start: 11-29-2022 Non-patient / Non-visit Dr. Francheska Alonzo Work Phone: [facility] Start: 11-29-2022 End: 11-29-[address] Francheska Alonzo Work Phone: [facility] Work Phone: Start: 11-29-2022 End: 11-29-[address] Francheska Alonzo Work Phone: [facility] Start: 11-12-2022 ambulatory Francheska Crandall Fast DO Compreh [facility] Start: 11-12-2022 End: 11-12-2022 Office outpatient visit 25 minutes Francheska Alonzo DO Work Phone: [facility] Start: 10-29-2022 Non-patient / Non-visit Dr. Francheska Parham Phone: [facility] Start: 10-29-[address] Francheska Alonzo Work Phone: [facility]-Cardiovascular Services Start: 10-29-2022 End: 10-29-[address] Francheska Parham Phone: [facility]Labor[facility] Start: 10-16-2022 End: 10-16-[address] Francheska Parham Phone: [facility] Start: 09-14-2022 End: 09-14-[address] Francheska Parham Phone: [facility] Start: 08-10-2022 End: 08-10-2022 Phone Encounter Francheska [...] 05-27-2022 Office outpatient visit 15 minutes Francheska Alonzo DO Work Phone: [facility] Start: 05-09-2022 End: 05-09-[address] Francheska Alonzo Work Phone: [facility] Work Phone: Start: 05-09-2022 End: 05-09-[address] Francheska Alonzo Work Phone: [facility]Labor[facility] Start: 05-08-2022 End: 05-08-2022 Phone Encounter Francheska Alonzo DO Work Phone: [facility] Start: 04-17-2022 End: 04-17-2022 Patient encounter procedure Mal Joseph MD Work Phone: General Surgery Comment on above: Subareolar mass of r ight breast (Primary Dx) Start: 04-10-2022 End: 04-10-2022 Patient encounter procedure Mal Joseph MD Work Phone: General Surgery Comment on above: Subareolar mass of r ight breast (Primary Dx) Start: 04-05-2022 End: 04-05-[address] Francheska Alonzo Work Phone: [facility]Outpatient Breast Imaging Start: 03-23-2022 End: 03-25-2022 Office outpatient visit 15 minutes Francheska Alonzo DO Work Phone: [facility] Start: 01-24-2022 End: 01-24-[address] Francheska Alonzo Work Phone: [facility] Start: 01-24-2022 End: 01-28-2022 Office outpatient visit 25 minutes Francheska Alonzo DO Work Phone: [facility] Start: 01-24-2022 Review Francheska Alonzo DO Work Phone: [facility] Start: 01-19-2022 End: 01-19-[address] Francheska Alonzo Work Phone: [facility] Start: 01-15-2022 End: 01-15-2022 Phone Encounter Francheska Fast DO Work Phone: [facility] Start: 01-10-2022 Non-patient / Non-visit Dr. Spike Mullen Work Phone: [facility] Start: 01-10-2022 End: 01-10-2022 Admission to same day surgery center Dr. Spike Mullen Work Phone: [facility]Endoscopy Start: 11-07-2021 End: 11-07-[address] Spike Mullen Work Phone: [facility] Start: 10-25-2021 End: 10-26-2021 Office outpatient visit 25 minutes Francheska Fast DO Work Phone: [facility] Start: 10-25-2021 Review Francheska Fast DO Work Phone: [facility] Start: 10-10-2021 End: 10-10-[address] Spike Mullen Work Phone: [facility] Start: 10-05-2021 End: 10-05-[address] Spike Mullen Work Phone: [facility]Labor[facility] Start: 07-12-2021 End: 07-12-2021 Phone Encounter Francheska Fast DO Work Phone: [facility] Start: 07-11-2021 End: 07-11-2021 Office outpatient visit 25 minutes Francheska Fast DO Work Phone: [facility] Start: 06-05-2021 End: 06-06-2021 Phone Encounter Francheska Fast DO Work Phone: [facility] Start: 05-16-2021 End: 05-16-2021 Office outpatient visit 25 minutes Francheska Fast DO Work Phone: [facility] Start: 04-09-2017 End: 04-10-2017 [facility] Procedures Date Procedure Procedure Detail Performing Clinician Start: 12-23-2024 Vitamin D, 25-hydroxy measurement Dr. Francheska Alonzo DO Work Phone: Comment on above: Vitamin D StatusDeficiency: <20 ng/mL (5 0nmol/L)Insufficiency: 20-30 ng/mL (50-75 nmol/L)Sufficiency: 30-100 ng/mL (75-250 nmol/L)Toxicity: >100 ng/mL (>250 nmol/L) Start: 12-25-[address] Francheska Alonzo Work Phone: Start: 07-26-[address] Francheska Alonzo Work Phone: Start: 07-26-[address] Francheska Alonzo Work Phone: Start: 06-14-2023 End: 06-14-2023 Venous Duplex US - [place] Extrem Procedure Note: See Note ; NOTES: [facility] Cardiovascular Services [address] [place] [address] Venous Duplex US - [place] Ext[place] 06/14/23 0905 MR#: [id number] Acct: [id number] Name: JUNG ABURTO Rep #: [id number] : 1945 78 From: Michele Hodgson MD Attending Dr: Dr. Francheska Alonzo DO Status: REG CL I Ordering Dr: Francheska [...] By: Blanca Jones RVT 06/14/23 1225 Date Michele Hodgson MD CC: Dr. Francheska Alonzo DO Date Dictated: 06/14/23904 Date Transcribed: 06/14/231224 Parts Representative: Vanessa Alonzo DO Work Phone: Start: 02-25-2023 End: 02-25-2023 Gastroenterology Visit Report Procedure Note: See Note ; NOTES: [facility] [address] [place] [address] OFFICE VISIT Date of Service: 02/25/23 MR#: [id number] Acct: [id number] Name: JUNG ABURTO Rep #: [id number] : 1945 Provider: RAJESH Garrido Age/Sex: 77/M Location: [facility] Status: Signed Intake Vital Signs 01/14/23 13:34 [...] acid 325 mg-1,916 mg-1,000 mg efferves tab (Maryjane-Pullman Original) 1 tab PO PRN PRN BLOATING 11/30/22 [History Confirmed 02/25/23] PFS Medical History Alcohol use Arthritis Back pain [...] HPI Chief Complaint: Follow up Details: JUNG ABURTO, is a 77 M who presents to [...] and oriented x3 Quality Reporting Tobacco Screening ([facility] 138) Smoking Status: Never smoker Assessment and Plan Assessment and Plan (1) Onofre esophagus: Status: Chronic Plan: Discussed EGD findings, positive for Onofre's still, negative for dysplasia, continue PPI and D0vfgwvyt Ok to try meloxicam for OA Repeat EGD one yr Coding Level of Care Code Off vis,est,level 3 Diagnoses Onofre esophagus K22.70 02/25/23 1305 <Electronically signed by Alicia Garrido NP WASHERY ENGINEER-C> Date Alicia Garrido NP WASHERY ENGINEER-C Cosigner Signature: Date (if applicable) CC: DO Francheska Minaya DO Work Phone: Start: 02-13-2023 End: 02-13-2023 EGD Report Procedure Note: See Note; NOTES: [facility] Medical Records Department [address] [place] [address] EGD Report MR#: [id number] Acct: [id number] Name: JUNG ABURTO Rep #: [id number] : 1945 77 From: David Parra DO PCP: Dr. Francheska Alonzo DO Status:REG [facility] Patient Name: Jung Aburto Procedure Date: 02/13/2023 7:50 AM Date of [...] pathology results. Procedure Code(s): --- Professional --- 51984, Esophagogastroduodenoscopy, flexible, transoral; with biopsy, single or multiple CPT copyright 2017 [employer]. All rights reserved. The codes documented in this report are preliminary and upon skip pitman review may be revised to meet current compliance requirements. David Parra DO 02/13/2023 8:10:49 AM This report has been signed electronically. Number of Addenda: 0 Note Initiated On: 02/13/2023 7:50 AM 02/13/23 0810 Date David Parra DO Karlignabi Signature: Date (if indicated) CC: Dr. Francheska Alonzo DO; David Parra DO Date Dictated: 02/13/23749 Date Transcribed: Parts Representative: PRAVIN Signed Francheska Alonzo DO Work Phone: Start: 02-13-2023 End: 02-13-2023 History and Physical Exam Procedure Note: See Note; NOTES: [facility] Medical Records Department [address] [place] [address] History Physical Exam 02/13/23752 MR#: [id number] Acct: [id number] Name: JAREDJUNG ELIZALDEOLPH Rep #: [id number] : 1945 77 From: David Parra DO PCP: Dr. Francheska Alonzo DO Status:[facility] Location: [place] [address] History and Physical Date of Admission: 02/13/23 [...] and oriented x3 Quality Reporting Tobacco Screening ([facility] 138) Smoking Status: Never smoker Assessment and Plan Assessment and Plan (1) 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 There are no clinical changes since date of exam. 02/13/23 0754 <Electronically signed by David Parra DO> Cosigner Signature (if applicable): CC: Dr. Francheska Alonzo DO; David Parra DO Signed Francheska Alonzo DO Work Phone: Start: 02-13-[address] Francheska soto Work Phone: Start: 01-14-2023 End: 01-14-2023 Gastroenterology Visit Report Procedure Note: See Note ; NOTES: [facility] Gastroenterology [address] [place] [address] OFFICE VISIT Date of Service: 01/14/23 MR#: [id number] Acct: [id number] Name: JUNG ABURTO Rep #: [id number] : 1945 Provider: RAJESH Garrido Age/Sex: 77/M Location: [facility] Status: Signed Intake Vital Signs 01/10/22 10:18 [...] acid 325 mg-1,916 mg-1,000 mg efferves tab (Maryjane-Denise Original) 1 tab PO DAILY 11/30/22 [History Confirmed 01/14/23] aspirin 81 mg capsule 81 mg PO DAILY 12/03/22 [History Confirmed 01/14/23] [facility] Medical History (Updated 01/14/23 @ 13:48 by Alicia Garrido NP, WASHERY ENGINEER-C) Alcohol use Arthritis Back pain Onorfe esophagus Cardiology follow-up encounter Chronic renal insufficiency [...] HPI Chief Complaint: Follow up Details: JUNG ABURTO, is a 77 M who presents to [...] and oriented x3 Quality Reporting Tobacco Screening ([facility] 138) Smoking Status: Never smoker Assessment and Plan Assessment and Plan (1) Onofre esophagus: Status: Chronic Plan: Schedule EGD to reeval Onofre's Continue dexilant and famotidine Coding Level of Care Code Off vis,est,level 2 Diagnoses Onofre esophagus K22.70 01/14/23 1352 <Electronically signed by Alicia Garrido NP WASHERY ENGINEER-C> Date Alicia Garrido NP WASHERY ENGINEER-C Cosigner Signature: Date (if applicable) CC: Dr. Francheska Alonzo, DO Francheska Alonzo DO Work Phone: Start: 12-03-2022 End: 12-03-2022 Operative Report Procedure Note: See Note; NOTES: [facility] Medical Records Department [address] [place] [address] Operative Report 12/03/22 1227 MR#: [id number] Acct: [id number] Name: JUNG ABURTO Rep #: [id number] : 1945 77 From: Sd Kirk MD PCP: Dr. Francheska Alonzo DO Status:REG [facility] Location: [facility] Report of Operation Date of Procedure: 12/03/22 [...] Cath Diagnostic Procedure Note: See Note; NOTES: [facility] Imaging Services [address] [place] [address] Cardiac Cath Diagnostic MR#: [id number] Acct: [id number] Name: JUNG ABURTO Rep #: [id number] : 1945 77 From: Petros Valdez MD PCP: Dr. Francheska Alonzo DO Status:REG [facility] Patient Name: JUNG ABURTO Study Date: 12/03/2022 Performing: Petros Valdez MD Ht: 73 inches 185.42 cm : 1945 Wt: 166.01 lbs 75.3 kg Age: 77 Gender: male BSA: 1.99 PROCEDURE(S) PERFORMED DC01-(45347)LHC/COR/LV IC10-(09124)FFR, CORONARY OR GRAFT, INITIAL VESSEL IC11-(70440)FFR, CORONARY OR GRAFT, EACH ADD'L VESSEL CLINICAL [...] multiple views using a 5 Fr. 4.0 [place] catheter. Left Coronary Artery selective angiography was performed in multiple views using a 5 Fr. 4.0 [place] catheter. Left Ventriculography was performed in [facility] [...] By Petros Valdez MD On 12/03/2022 12:15:16 Petros Valdez MD 12/03/22 1216 Date Petros Valdez MD Cosigner Signature: Date (if indicated) CC: Dr. Petros Valdez MD; Dr. Francheska Alonzo DO Date Dictated: 12/03/22 1117 Date Transcribed: 12/03/22 1215 Parts Representative: [place] Signed Francheska Alonzo DO Work Phone: Start: 11-30-2022 End: 11-30-2022 History and Physical Exam Procedure Note: See Note; NOTES: [facility] Medical Records Department [address] [place] [address] History Physical Exam 11/30/22 1600 MR#: [id number] Acct: [id number] Name: JUNG ABURTO Rep #: [id number] : 1945 77 From: Tea ARIZMENDI PCP: Dr. Francheska Alonzo, DO Status:PRE [facility] Location: [facility] History and Physical JUNG ABURTO, is a 77 M who presents today [...] Angiography CT Procedure Note: See Note; NOTES: [facility] Imaging Services [address] [place] [address] 11/29/22 1532 MR#: [id number] Acct: [id number] Name: JUNG ABURTO Rep #: [id number] : 1945 77 From: Petros Valdez MD [...] <Electronically signed by Petros Valdez MD> Date Petros Valdez MD Cosigner Signature (if applicable): Date CC: Dr. Petros Valdez MD; Dr. Francheska Alonzo DO Signed Francheska Alonzo DO Work Phone: Start: 11-29-2022 CT angiography of coronary arteries Dr. Francheska Alonzo Work Phone: Start: 11-29-2022 End: 11-29-[address] Cardiac Only Procedure Note: See Note ; NOTES: [facility] Imaging Services [address] [place] [address] Cardiac Only MR#: [id number] Acct: [id number] Name: JUNG ABURTO Rep #: [id number] : 1945 M 77 From: Hany Yarbrough MD PCP: Dr. Francheska Alonzo DO Status: REG CLI Study: Limited Chest CT Cardiac Only Date of Exam: Exam# [id number] Ordering Dr: Petros Valdez MD STUDY: CARDIAC [...] were used for this CT. COMPARISON: None. FINDINGS: Visualized surrounding anatomy: Normal. Left Main Coronary Artery: Atherosclerotic calcification. Left Anterior Descending Artery: Atherosclerotic calcification Left Circumflex Artery: Atherosclerotic calcification Right Coronary Artery: Atherosclerotic calcification. Other: Coronary calcium volume 13.35 cu mm. Total Calcium Score: 1804 CT/Limited Chest CT Cardiac Only IMPRESSION: A Calcium Score of 1804 places the patient in the approximate 75th and 90th percentile, based on the [place] data calculator. Please go to: [email or web address]-nhlbi.org/Calcium/inp ut.aspx , for a description of the calculator. Electronically Signed: Hany Yarbrough MD, LAKISHA at 16:36 EDT , CC: Dr. Petros Valdez MD; Dr. Francheska Alonzo DO Parts Representative: Signed Francheska Alonzo DO Work Phone: Start: 10-16-2022 End: 10-16-2022 Cardiology Visit Report Procedure Note: See Note; NOTES: [facility] [place] [address] OFFICE VISIT Date of Service: 10/16/22 MR#: [id number] Acct: [id number] Name: JUNG ABURTO Rep #: [id number] : 1945 Provider: Dr. 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 Francheska Alonzo, DO Francheska Alonzo DO Work Phone: Start: 09-14-2022 End: 09-14-2022 Kidney and Bladder Procedure Note: See Note; NOTES: [facility] Imaging Services [address] [place] [address] Kidney and Bladder MR#: [id number] Acct: [id number] Name: JUNG ABURTO Rep #: [id number] : 1945 M 77 From: Mo bertrand MD PCP: Dr. Francheska Alonzo DO Status: REG CLI Study: Kidney and Bladder Date of Exam: 09/14/22 Exam# [id number] Ordering Dr: Francheska Alonzo DO STUDY: RENAL ULTRASOUND - COMPLETE REASON FOR EXAM: Male, 77 years old. PAIN FLANK BILATERAL TECHNIQUE: Ultrasound evaluation of the kidneys was performed with real-time and static abdi-scale imaging. COMPARISON: Comparison is made with prior study dated 05/03/2016. FINDINGS: RIGHT KIDNEY: Normal location of the [...] cm x 6 cm x 3.6 cm. US/Kidney and Bladder IMPRESSION: Bilateral renal cysts. Prostatic enlargement. Electronically Signed: Mo Angulo MD at 14:20 EST , CC: Dr. Francheska Alonzo DO Parts Representative: Signed Francheska Alonzo DO Work Phone: Start: 09-14-[address] Francheska Alonzo Work Phone: Start: 04-17-2022 US BREAST BIOPSY RIGHT (POC) SURG USE ONLY Mal Joseph MD Work Phone: Start: 04-05-2022 End: 04-05-2022 Breast Limited Unilateral Comments: See Note; NOTES: [facility] Imaging Services [address] [place] [address] Breast Limited Unilateral MR#: [id number] Acct: [id number] Name: JUNG ABURTO Rep #: [id number] : 1945 M 76 From: Mo bertrand MD PCP: Dr. Francheska Alonzo DO Status: REG CLI Study: Breast Limited Unilateral Date of Exam: Exam# [id number] Ordering Dr: Francheska Alonzo DO STUDY: ULTRASOUND BREAST - RIGHT REASON FOR EXAM: Male, 76 years old. Palpable lump in the right breast. TECHNIQUE: Axial and longitudinal images of the RIGHT breast were performed with a high resolution ultrasound transducer. # OF IMAGES: 20 COMPARISON: Comparison is made with prior mammogram done earlier today. FINDINGS: RIGHT Breast: There is evidence of retrocrural areolar glandular tissue. This is suggestive of a gynecomastia. US/Breast Limited Unilateral IMPRESSION: Findings suggestive of gynecomastia. ASSESSMENT CATEGORY: BIRADS Category 2: Benign. A letter regarding these results will be sent to the patient by the facility within 30 days. Electronically Signed: Mo Angulo MD at 14:46 EDT , CC: Dr. Francheska Alonzo DO Parts Representative: Signed Francheska Alonzo DO Work Phone: Start: 04-05-[address] Francheska Alonzo Work Phone: Start: 04-05-[address] Francheska Alonzo Work Phone: Start: 04-05-2022 End: 04-05-2022 DIAG MAMM W/CAD, BILAT Comments: See Note; NOTES: [facility] Imaging Services [address] [place] [address] DIAG MAMM W/CAD, BILAT MR#: [id number] Acct: [id number] Name: JUNG ABURTO Rep #: [id number] : 1945 M 76 From: Mo bertrand MD PCP: Dr. Francheska Alonzo DO Status: [facility] Study: DIAG MAMM W/CAD, BILAT Date of Exam: 04/05/22 Exam# [id number] Ordering Dr: Francheska Alonzo DO MAMMOGRAPHY - [...] Detection was performed. COMPARISON: None. Baseline examination. FINDINGS: Breast Composition: There are scattered areas of fibroglandular density. There are no dominant masses or suspicious calcifications. Asymmetry of breast tissue with more breast tissue is seen in the retroareolar region of the right breast as compared to the left side. This most likely represents gynecomastia. Correlation with ultrasound is recommended. No other significant abnormalities are identified. BI/DIAG MAMM W/CAD, BILAT IMPRESSION: Findings suggestive of bilateral gynecomastia more prominent on the right side. Correlation with ultrasound of the right breast is recommended. ASSESSMENT CATEGORY: BIRADS Category 0: Incomplete. Need additional imaging evaluation. A letter regarding these results will be sent to the patient by the facility within 30 days. Approximately 10% of breast cancers are not detected by mammography. A normal mammogram should not delay biopsy of a clinically suspicious abnormality. Electronically Signed: Mo Angulo MD at 10:12 EDT , CC: Dr. Francheska Alonzo DO Parts Representative: Signed Francheska Alonzo DO Work Phone: Start: 01-24-2022 End: 2022 Gastroenterology Visit Report Procedure Note: See Note ; NOTES: [facility] Gastroenterology [address] [place] [address] OFFICE VISIT Date of Service: 01/24/22 MR#: [id number] Acct: [id number] Name: JUNG ABURTO Rep #: [id number] : 1945 Provider: David Parra DO Age/Sex: 76/M Location: [facility] Status: Signed Intake Vital Signs 10/10/21 08:51 01/10/22 10:18 Height 6 ft 1 in 6 ft 1 in Intake Visit Reasons: 2 WK FU Chief Complaint: Follow up Allergies No Known Allergies Allergy (Verified 01/10/22 10:17) PFSH Medical History (Updated 01/24/22 @ 15:01 by [...] HPI Chief Complaint: Follow up Details: JUNG ABURTO, is a 76 M who presents to [...] Appearance: average body habitus and well nourished [facility] Head: normal to inspection Ears: hearing grossly [...] Affect: normal affect Quality Reporting Tobacco Screening ([facility] 138) Smoking Status: Never smoker Assessment and Plan Assessment and Plan (1) GERD (gastroesophageal reflux disease): Status: Acute Plan - Dr. David Parra, DO: Gastroesophageal reflux disease is controlled on [...] colonic polyp: Status: Acute Plan - Dr. David Parra DO: He should have colonoscopy for evaluation of his colon. Especially in the setting of iron deficiency anemia. (3) Onofre esophagus: Status: Acute (4) Gastritis: Status: Acute Coding Level of Care Code Off vis,est,level 3 Diagnoses GERD (gastroesophageal reflux disease) K21.9 Hx of colonic polyp Z86.010 Onofre esophagus K22.70 Gastritis K29.70 04/12/22 1335 <Electronically signed by David Parra DO> Date David Parra DO Cosigner Signature: Date (if applicable) CC: Francheska Alonzo DO Work Phone: Start: 01-10-2022 End: 06-08-2022 Colonoscopy Report Comments: See Note; NOTES: [facility] Medical Records Department [address] [place] [address] Colonoscopy Report MR#: [id number] Acct: [id number] Name: JUNG ABURTO Rep #: [id number] : 1945 76 From: David Parra DO PCP: Dr. Francheska Alonzo DO Status:REG CTC Patient Name: Jung Aburto Procedure Date: 01/10/2022 11:06 AM Date of [...] 1 week. Procedure Code(s): --- Professional --- 58806, Colonoscopy, flexible; with removal of tumor(s), polyp(s), or other lesion(s) by snare technique CPT copyright 2017 [employer]. All rights reserved. The codes documented in this report are preliminary and upon skip pitman review may be revised to meet current compliance requirements. David Parra DO 01/10/2022 11:46:14 AM This report has been signed electronically. Number of Addenda: 0 Note Initiated On: 01/10/2022 11:06 AM 01/10/22 1146 Date David Lopez Signature: Date (if indicated) CC: Dr. Francheska Alonzo DO; David Parra DO Date Dictated: 01/10/22 1106 Date Transcribed: Parts Representative: PRAVIN Signed Francheska Alonzo DO Work Phone: Start: 01-10-2022 End: 06-08-2022 EGD Report Comments: See Note; NOTES: [facility] Medical Records Department [address] [place] [address] EGD Report MR#: [id number] Acct: [id number] Name: JUNG ABURTO Rep #: [id number] : 1945 76 From: David Parra DO PCP: Dr. Francheska Alonzo DO Status:REG SDC Patient Name: Jung Aburto Procedure Date: 01/10/2022 10:40 AM Date of [...] pathology results. Procedure Code(s): --- Professional --- 05359, Esophagogastroduodenoscopy, flexible, transoral; with biopsy, single or multiple G0500, Moderate sedation services provided by the same physician or other qualified health assistant child care teacher performing a gastrointestinal endoscopic service that sedation supports, requiring the presence of an independent trained observer to assist in the monitoring of the patient's level of consciousness and physiological status; initial 15 minutes of intra-service time; patient age 5 years or older (additional time may be reported with 43697, as appropriate) CPT copyright 2017 [employer]. All rights reserved. The codes documented in this report are preliminary and upon skip pitman review may be revised to meet current compliance requirements. David Parra DO 01/10/2022 11:40:16 AM This report has been signed electronically. Number of Addenda: 0 Note Initiated On: 01/10/2022 10:40 AM 01/10/22 1140 Date David Parra DO Cosigner Signature: Date (if indicated) CC: Dr. Francheska Alonzo DO; David Parra DO Date Dictated: 01/10/22 1040 Date Transcribed: Parts Representative: RF Signed Francheska Alonzo DO Work Phone: Start: 01-10-[address] Spike Mullen Work Phone: Start: 01-10-2022 End: 01-10-2022 History and Physical Exam Comments: See Note; NOTES: [facility] Medical Records Department [address] [place] [address] History Physical Exam 01/10/22 1041 MR#: [id number] Acct: [id number] Name: JUNG ABURTO Rep #: [id number] : 1945 76 From: David Parra DO PCP: Dr. Francheska Alonzo DO Status:[facility] Location: [address] History and Physical Date of Admission: 01/10/22 JUNG ABURTO, is a 76 M who presents to [...] and well groomed Quality Reporting Tobacco Screening ([facility] 138) Smoking Status: Never smoker Assessment and [...] Gastroenterology Visit Report Comments: See Note; NOTES: [facility] Gastroenterology [address] [place] [address] OFFICE VISIT Date of Service: 11/07/21 MR#: [id number] Acct: [id number] Name: JUNG ABURTO Rep #: [id number] : 1945 Provider: RAJESH Garrido Age/Sex: 76/M Location: [facility] Status: Signed Intake Intake Visit Reasons: COLON POLYPS Allergies No Known Allergies Allergy (Verified 11/07/21 11:25) Medications coenzyme Q10 30 mg PO DAILY 05/21/16 [History Confirmed 11/07/21] multivitamin 1 ea PO DAILY 05/21/16 [History Confirmed 11/07/21] cyanocobalamin (vitamin B-12) 2,000 mcg PO DAILY 04/22/17 [History Confirmed 11/07/21] omega 0-ybx-oni-fish oil 1 tab PO DAILY 04/22/17 [History [...] mg PO DAILY 10/10/21 [History Confirmed 11/07/21] [facility] Medical History (Updated 11/07/21 @ 11:38 by Alicia Garrido WASHERY ENGINEER, WASHERY ENGINEER-C) Chronic renal insufficiency Essential (primary) hypertension Hyperlipidemia Mitral valve annular calcification Palpitations Raynaud disease Surgical History History of hydrocelectomy Hx of appendectomy Hx of hernia repair Hx of transurethral resection of prostate Family History Father Cancer Mother , age 72 CAD (coronary artery disease) Hypertension Social History Smoking Status: Never smoker HPI HPI Details: JUNG ABURTO, is a 76 M who presents to [...] and well groomed Quality Reporting Tobacco Screening ([facility] 138) Smoking Status: Never smoker Assessment and [...] 1215 <Electronically signed by Alicia Garrido NP WASHERY ENGINEER-C> Date Alicia Garrido NP WASHERY ENGINEER-C Cosigner Signature: Date (if applicable) CC: Dr. Francheska Alonzo, DO Francheska Alonzo DO Work Phone: Start: 10-10-2021 End: 10-10-2021 Cardiology Visit Report Comments: See Note; NOTES: [facility] [address] [place] [address] OFFICE VISIT Date of Service: 10/10/21 MR#: [id number] Acct: [id number] Name: JUNG ABURTO Rep #: [id number] : 1945 Provider: Dr. Petros Valdez MD Age/Sex: 76/M [place] [facility] Status: Signed HPI HPI History of Present Illness Details: JUNG ABURTO, is a 76 M who presents today [...] Known Allergies Allergy (Verified 10/10/21 08:52) Medications bjwbwsclfn-ryxpcuo-tmydmkth 1 tab PO DAILY PRN PRN 05/21/16 [History Confirmed 10/10/21] coenzyme Q10 30 mg PO DAILY 05/21/16 [History Confirmed 10/10/21] diazepam 0.5 - 1 tab PO DAILY PRN PRN 05/21/16 [History Confirmed 10/10/21] multivitamin 1 ea PO DAILY 05/21/16 [History Confirmed 10/10/21] cyanocobalamin (vitamin B-12) 2,000 mcg PO DAILY 04/22/17 [History Confirmed 10/10/21] omega 0-tbd-ymr-fish oil 1 tab PO DAILY 04/22/17 [History [...] updated, as necessary. Follow Up: 1 Year (provider engagement executive) Coding Level of Care Code Off vis,est,level 3 Diagnoses Essential (primary) hypertension I10 Hyperlipidemia E78.00; E78.0 Hyperlipidemia type: pure hypercholesterolemia Coding Level of Care Code Off vis,est,level 3 Diagnoses Essential (primary) hypertension I10 Hyperlipidemia E78.00; E78.0 Hyperlipidemia type: pure hypercholesterolemia 10/10/21 1334 <Electronically signed by Petros Valdez MD> Date Petros Marcano Signature: Date (if applicable) CC: Dr. Spike Mullen MD Francheska Alonzo DO Work Phone: Start: 09-25-2016 End: 09-25-2016 REESE Valdez MD Start: 09-25-2016 End: 09-25-2016 Electrocardiogram, edith Powers i, MD Start: 09-25-2016 End: 09-25-2016 Follow Up Appt 1 year Petros Valdez MD Start: 09-23-2015 End: 09-23-2015 REESE Valdez MD Start: 09-23-2015 End: 09-23-2015 Follow Up Appt 1 year Petros Valdez MD Start: 09-19-2015 End: 09-19-2015 *Hepatic Function Panel Petros Valdez MD Start: 09-19-2015 End: 09-19-2015 Lipid panel [AGGREGATE] Petros Valdez MD Start: 08-17-2014 End: 08-17-2014 REESE Valdez MD Start: 08-17-2014 End: 08-17-2014 Follow Up Appt 1 year Petros Valdez MD Start: 08-18-2013 End: 07-06-2015 *Hepatic Function Panel Pertos Valdez MD Start: 08-18-2013 End: 08-18-2013 BRIDGE CONSTRUCTION INSPECTOR Petros Valdez MD Start: 08-18-2013 End: 08-18-2013 Follow Up Appt 1 year Petros Valdez MD Start: 08-18-2013 End: 07-06-2015 Lipid panel [AGGREGATE] Petros Valdez MD Start: 11-28-2012 End: 07-06-2015 *Hepatic Function Panel Petros Valdez MD Start: 11-28-2012 End: 07-06-2015 Lipid panel [AGGREGATE] Petros Valdez MD Start: 11-21-2012 End: 07-06-2015 Cardiovascular stress test using treadmill Tea Hart PA-C Work Phone: Start: 09-05-2012 End: 07-06-2015 *CRPHS - C-reactive protein, high sensitivity (hsCRP) Petros Valdez MD Start: 09-05-2012 End: 09-05-2012 Follow Up Appt 1 year Petros Valdez MD Start: 12-18-2011 End: 03-25-2012 *Hepatic Function Panel Petros Valdez MD Start: 12-18-2011 End: 03-25-2012 Lipid panel [AGGREGATE] Alexa Mcclure MA Start: 08-28-2011 End: 09-18-2011 *Hepatic Function Panel Petros Valdez MD Start: 08-28-2011 End: 07-06-2015 Follow Up Appt 6 months Petros Valdez MD Start: 08-28-2011 End: 09-18-2011 Lipid panel [AGGREGATE] Petros Valdez MD Appendectomy Yoko Shreerb RN ENTEROSTOMAL Appendectomy Naida Mansofia FOOD MIXER Appendectomy Naida Manchak FOOD MIXER Appendectomy Christineyela Madiha FOOD MIXER Appendectomy Francheska A Fast DO Work Phone: Appendectomy Naida Manchak FOOD MIXER Appendectomy Naida Manchak FOOD MIXER Appendectomy Naida Manchak FOOD MIXER Appendectomy Naida Manchak FOOD MIXER Double hernia Yoko Slarb RN ENTEROSTOMAL Double hernia Naida Manchak FOOD MIXER Double hernia Naida Manchak FOOD MIXER Double hernia Kayela Spokane FOOD MIXER Double hernia Francheska A Fast DO Work Phone: Double hernia Naida Manchak FOOD MIXER Double hernia Naida Manchak FOOD MIXER Double hernia Naida Manchak FOOD MIXER Double hernia Naida Manchak FOOD MIXER Hydrocele Yoko Slarb RN ENTEROSTOMAL Hydrocele Naida Manchak FOOD MIXER Hydrocele Naida Manchak FOOD MIXER Hydrocele Christineyela [place] FOOD MIXER Hydrocele Francheska A Fast DO Work Phone: Hydrocele Naida Manchak FOOD MIXER Hydrocele Naida Manchak FOOD MIXER Hydrocele Naida Manchak FOOD MIXER Hydrocele Naida Manchak FOOD MIXER Partial thyroidectomy Yoko Slarb RN ENTEROSTOMAL Partial thyroidectomy Chelse a Manchak FOOD MIXER Partial thyroidectomy Chelse a Manchak FOOD MIXER Partial thyroidectomy Christineyela Madiha FOOD MIXER Partial thyroidectomy Francheska A Fast DO Work Phone: Partial thyroidectomy Chelse a Manchak FOOD MIXER Partial thyroidectomy Chelse a Manchak FOOD MIXER Partial thyroidectomy Chelse a Manchak FOOD MIXER Partial thyroidectomy Chelse a Manchak FOOD MIXER right hand CMC Yoko Slarb RN ENTEROSTOMAL right hand CMC Naida Manchak FOOD MIXER right hand CMC Naida Manchak FOOD MIXER right hand CMC Kayela Radfor d FOOD MIXER right hand CMC Francheska A Fast DO Work Phone: right hand CMC Naida Manchak FOOD MIXER right hand CMC Naida Manchak FOOD MIXER right hand CMC Naida Manchak FOOD MIXER right hand CMC Naida Manchak FOOD MIXER Tonsillectomy Yoko Slarb RN ENTEROSTOMAL Tonsillectomy Naida Manchak FOOD MIXER Tonsillectomy Naida Manchak FOOD MIXER Tonsillectomy Christineyela [place] FOOD MIXER Tonsillectomy Francheska A Fast DO Work Phone: Tonsillectomy Naida Manchak FOOD MIXER Tonsillectomy Naida Manchak FOOD MIXER Tonsillectomy Naida Manchak FOOD MIXER Tonsillectomy Naida Manchak FOOD MIXER TURP Yoko Slarb RN ENTEROSTOMAL TURP Naida Manchak FOOD MIXER TURP Naida Manchak FOOD MIXER TURP Louann Cleary FOOD MIXER TURP Francheska A Fast DO Work Phone: TURP Naida Manchak FOOD MIXER TURP Naida Manchak FOOD MIXER TURP Naida Manchak FOOD MIXER TURP Naida Manchak FOOD MIXER Plan of Treatment Date Care Activity Detail Author Start: 06-03-2023 Procedure Education Eprescribed prescriptions (G8553) [facility]; [facility] Work Phone: Start: 06-03-2023 Blood count complete auto&auto difrntl wbc CBC W/AUTO DIFF WBC (41206) [facility]; [facility] Work Phone: Start: 06-03-2023 Comprehensive metabolic panel METABOLIC PANEL, COMPREHENSIVE (57858) [facility]; [facility] Work Phone: Start: 02-25-2023 Procedure Education Eprescribed prescriptions (G8553) [facility]; [facility] Work Phone: Start: 02-25-2023 Blood count complete auto&auto difrntl wbc CBC W/AUTO DIFF WBC (24077) [facility]; [facility] Work Phone: Start: 02-25-2023 Comprehensive metabolic panel METABOLIC PANEL, COMPREHENSIVE (19456) [facility]; [facility] Work Phone: Start: 02-25-2023 Lipid panel LIPID PANEL (17239) [facility]; [facility] Work Phone: Start: 02-25-2023 Sedimentation rate rbc non-automated SED RATE ERYTHROCYTE (95542) [facility]; [facility] Work Phone: Start: 02-25-2023 C-reactive protein C-REACTIVE PROTEIN (05046) [facility]; [facility] Work Phone: Start: 02-25-2023 Antinuclear antibodies mario MARIO (ANTINUCLEAR ANTIBODY) (15328) [facility]; [facility] Work Phone: Start: 02-25-2023 Rheumatoid factor quantitative RHEUMATOID FACTOR-QUANT (17816) [facility]; [facility] Work Phone: Start: 02-13-2023 Egd transoral biopsy single/multiple EGD BIOPSY SINGLE/MULTIPLE [facility] Start: 02-13-[address] [facility] Start: 11-29-[address] [facility] Start: 11-29-2022 [facility] Start: 11-12-2022 Procedure Education Eprescribed prescriptions (G8553) [facility]; [facility] Work Phone: Start: 11-12-2022 Lipid panel LIPID PANEL (48647) [facility]; [facility] Work Phone: Start: 11-12-2022 Blood count complete auto&auto difrntl wbc CBC W/AUTO DIFF WBC (33858) [facility]; [facility] Work Phone: Start: 11-12-2022 Comprehensive metabolic panel METABOLIC PANEL, COMPREHENSIVE (27928) [facility]; [facility] Work Phone: Start: 11-12-2022 25 hydroxy includes fractions if performed Vitamin D Hydroxy (63336) [facility]; [facility] Work Phone: Start: 11-12-2022 Assay of prostate specific antigen total PSA (Medicare - G0103) (57587) [facility]; [facility] Work Phone: Start: 07-30-2022 25 hydroxy includes fractions if performed Vitamin D Hydroxy (81356) [facility]; [facility] Work Phone: Start: 07-30-2022 Blood count complete auto&auto difrntl wbc CBC W/AUTO DIFF WBC (80996) [facility]; [facility] Work Phone: Start: 07-30-2022 Comprehensive metabolic panel METABOLIC PANEL, COMPREHENSIVE (63048) [facility]; [facility] Work Phone: Start: 07-30-2022 Lipid panel LIPID PANEL (74810) [facility]; [facility] Work Phone: Start: 07-30-2022 Procedure Education Eprescribed prescriptions (G8553) [facility]; [facility] Work Phone: Start: 05-10-2022 Influenza vaccination INFLUENZA (#1) [facility] Start: 05-08-2022 Dehydroepiandrosterone DHEA (DEHYDROEPIANDROSTER ONE) (75918) [facility]; [facility] Work Phone: Start: 05-08-2022 Assay of estradiol ESTRADIOL (11461) [facility]; [facility] Work Phone: Start: 05-08-2022 Gonadotropin chorionic qualitative HCG (HUMAN CHORIONIC GONADOTROPIN) (66518) [facility]; [facility] Work Phone: Start: 05-08-2022 Assay of prolactin PROLACTIN (53509) [facility]; [facility] Work Phone: Start: 05-08-2022 Gonadotropin follicle stimulating hormone FSH AND LH (35107) [facility]; [facility] Work Phone: Start: 05-08-2022 Assay of testosterone free TESTOSTERONE FREE (20736) [facility]; [facility] Work Phone: Start: 05-08-2022 Assay of testosterone total TESTOSTERONE TOTAL (72356) [facility]; [facility] Work Phone: Start: 03-23-2022 Procedure Education Eprescribed prescriptions (G8553) [facility]; [facility] Work Phone: Start: 01-24-2022 Procedure Education Eprescribed prescriptions (G8553) [facility]; [facility] Work Phone: Start: 01-24-2022 Urnls dip stick/tablet reagent auto microscopy URINALYSIS, W/ MICRO (92313) [facility]; [facility] Work Phone: Start: 01-24-2022 Blood count complete auto&auto difrntl wbc CBC W/AUTO DIFF WBC (89319) [facility]; [facility] Work Phone: Start: 01-24-2022 Comprehensive metabolic panel METABOLIC PANEL, COMPREHENSIVE (26538) [facility]; [facility] Work Phone: Start: 01-15-2022 Assay of prostate specific antigen total PSA (PROSTATE SPECIFIC ANTIGEN) (89078) [facility]; [facility] Work Phone: Comment on above: please draw with 2021 labs Start: 01-10-2022 Colsc flx w/rmvl of tumor polyp lesion snare tq COLONOSCOPY W/LESION REMOVAL [facility] Work Phone: Start: 01-10-2022 Egd transoral biopsy single/multiple EGD BIOPSY SINGLE/MULTIPLE [facility] Work Phone: Start: 10-25-2021 Procedure Education Eprescribed prescriptions (G8553) [facility]; [facility] Work Phone: Start: 10-25-2021 Lipid panel LIPID PANEL (23567) [facility]; [facility] Work Phone: Start: 10-25-2021 Comprehensive metabolic panel METABOLIC PANEL, COMPREHENSIVE (78916) [facility]; [facility] Work Phone: Start: 09-09-2021 ADVANCE DIRECTIVE DISCUSSION ADVANCE DIRECTIVE DISCUSSION [facility] Start: 07-11-2021 Procedure Education Eprescribed prescriptions (G8553) [facility]; [facility] Work Phone: Start: 07-11-2021 Provider Instructions for Treatment [facility]; [facility] Work Phone: Start: 07-11-2021 Lipid panel LIPID PANEL (44025) [facility]; [facility] Work Phone: Start: 07-11-2021 Comprehensive metabolic panel METABOLIC PANEL, COMPREHENSIVE (51299) [facility]; [facility] Work Phone: Start: 07-11-2021 Cyanocobalamin vitamin b-12 VITAMIN B12 AND FOLATES (80502) [facility]; [facility] Work Phone: Start: 07-11-2021 Hepatitis c antibody HEPATITIS C ANTIBODY (80654) [facility]; [facility] Work Phone: Start: 05-16-2021 Procedure Education Eprescribed prescriptions (G8553) [facility]; [facility] Work Phone: Start: 05-16-2021 Urnls dip stick/tablet reagent auto microscopy URINALYSIS, W/ MICRO ([id number]) [facility]; [facility] Work Phone: Start: 09-26-2017 End: 09-26-2017 Appointment [facility] [employer] Work Phone: Start: 04-30-2017 End: 04-30-2017 Appointment [facility]ment [facility] Work Phone: Start: 04-15-2017 End: 04-15-2017 Appointment Appointment [facility] [employer] Work Phone: Start: 09-25-2016 End: 09-25-2016 BRIDGE CONSTRUCTION INSPECTOR BRIDGE CONSTRUCTION INSPECTOR [facility] [employer] Work Phone: Start: 09-25-2016 End: 09-25-2016 Electrocardiogram, complete EKG (In office) [facility] [employer] Work Phone: Start: 09-25-2016 End: 09-25-2016 Follow Up Appt 1 year Follow Up Appt 1 year [facility] [employer] Work Phone: Start: 03-20-2016 End: 09-20-2015 *Hepatic Function Panel *Hepatic Function Panel [facility] [employer] Work Phone: Start: 03-20-2016 End: 09-20-2015 Lipid panel [AGGREGATE] *Lipid Profile CC PCP [facility] [employer] Work Phone: Start: 10-07-2015 End: 09-19-2015 *Hepatic Function Panel *Hepatic Function Panel [facility] [employer] Work Phone: Start: 10-07-2015 End: 09-19-2015 Lipid panel [AGGREGATE] *Lipid Profile CC PCP [facility] [employer] Work Phone: Start: 09-23-2015 End: 09-23-2015 BRIDGE CONSTRUCTION INSPECTOR BRIDGE CONSTRUCTION INSPECTOR [facility] [employer] Work Phone: Start: 09-23-2015 End: 09-23-2015 Follow Up Appt 1 year Follow Up Appt 1 year [facility] [employer] Work Phone: Start: 08-17-2014 End: 08-17-2014 BRIDGE CONSTRUCTION INSPECTOR BRIDGE CONSTRUCTION INSPECTOR [facility] [employer] Work Phone: Start: 08-17-2014 End: 08-17-2014 Follow Up Appt 1 year Follow Up Appt 1 year [facility] [employer] Work Phone: Start: 01-11-2014 DIABETES SCREEN DIABETES SCREEN [facility] Start: 08-18-2013 End: 07-06-2015 *Hepatic Function Panel *Hepatic Function Panel [facility] [employer] Work Phone: Start: 08-18-2013 End: 08-18-2013 BRIDGE CONSTRUCTION INSPECTOR BRIDGE CONSTRUCTION INSPECTOR [facility] [employer] Work Phone: Start: 08-18-2013 End: 08-18-2013 Follow Up Appt 1 year Follow Up Appt 1 year [facility] [employer] Work Phone: Start: 08-18-2013 End: 07-06-2015 Lipid panel [AGGREGATE] *Lipid Profile CC PCP [facility] [employer] Work Phone: Start: 11-28-2012 End: 07-06-2015 *Hepatic Function Panel *Hepatic Function Panel [facility] [employer] Work Phone: Start: 11-28-2012 End: 07-06-2015 Lipid panel [AGGREGATE] *Lipid Profile [facility] [employer] Work Phone: Start: 11-21-2012 End: 07-06-2015 Cardiovascular stress test using treadmill Treadmill stress test (no imaging) [facility] [employer] Work Phone: Start: 09-05-2012 End: 07-06-2015 *CRPHS - C-reactive protein, high sensitivity (hsCRP) *CRPHS - C-reactive protein, high sensitivity (hsCRP) [facility] [employer] Work Phone: Start: 09-05-2012 End: 09-05-2012 Follow Up Appt 1 year Follow Up Appt 1 year [facility] [employer] Work Phone: Start: 12-18-2011 End: 03-25-2012 *Hepatic Function Panel *Hepatic Function Panel [facility] [employer] Work Phone: Start: 12-18-2011 End: 03-25-2012 Lipid panel [AGGREGATE] *Lipid Profile [facility] [employer] Work Phone: Start: 08-28-2011 End: 09-18-2011 *Hepatic Function Panel *Hepatic Function Panel [facility] [employer] Work Phone: Start: 08-28-2011 End: 07-06-2015 Follow Up Appt 6 months Follow Up Appt 6 months [facility] [employer] Work Phone: Start: 08-28-2011 End: 09-18-2011 Lipid panel [AGGREGATE] *Lipid Profile [facility] [employer] Work Phone: Start: 2010 PNEUMOCOCCAL: 65+ (1 - PCV) PNEUMOCOCCAL: 65+ (1 - PCV) [facility] Start: 1995 SHINGRIX VACCINE (1 of 2) SHINGRIX VACCINE (1 of 2) [facility] Start: 1964 Urine microalbumin profile DTAP,TDAP,TD (1 - Tdap) [facility] Start: 1963 ANNUAL PCP TEAM CHRONIC DISEASE VISIT ANNUAL PCP TEAM CHRONIC DISEASE VISIT [facility] Start: 1957 Adult depression screening assessment DEPRESSION SCREENING [facility] Dehydroepiandrostero ne sulfate (DHEA-S) [Mass/volume] in Serum or Plasma [facility] Work Phone: Patient Education [facility] Work Phone: Patient referral [facility] Work Phone: SURGICAL PATHOLOGY SURGICAL PATH OLOGY Lab Routine Subareolar mass of right breast 04/17/2022 2:10 PM EDT [facility] Work Phone: Testosterone Free [Mass/volume] in Serum or Plasma [facility] Work Phone: Testosterone measurement [facility] Work Phone: [facility] Work Phone: [facility]; [facility] Work Phone: [facility]; [facility] Work Phone: [facility]; [facility] Work Phone: [facility] Work Phone: [facility] Work Phone: [facility] Work Phone: [facility] Work Phone: [facility] Work Phone: [facility]; [facility] Work Phone: Immunizations Immunization Date Immunization Notes Care Provider [facility] 07-08-2023 COVID-Moderna (100 MCG/0.5 ML) Francheska Fast DO Work Phone: [facility]; [facility] Work Phone: Comment on above: Spikevax 12-06-2021 COVID-Moderna (50 MCG/0.25 ML) Francheska Fast DO Work Phone: [facility]; [facility] Work Phone: Comment on above: @ [facility] 06-24-2021 COVID-Moderna (100 MCG/0.5 ML) Francheska Fast DO Work Phone: [facility] Work Phone: 05-10-2021 influenza, injectabl e, quadrivalent, preservative free Francheska Fast DO Work Phone: [facility] Work Phone: 09-09-2019 pneumococcal polysaccharide vaccine, 23 valent Francheska Fast DO Work Phone: [facility] Work Phone: 10-04-[address] Spike Mullen Work Phone: [facility] 07-04-[address] Spike Mullen Work Phone: [facility] Payers Date Payer Category Payer Self-pay [id number] 2021 Medicare [id number] 2021 Medicare MMO MEDICARE MMO MEDADVANTAGE HMO [id number] 2021-Present [phone] [address] [place] [address] O [id number] 2021 Medicare MMO MEDICARE MMO MEDADVANTAGE HMO [id number] 2021-Present [phone] [address] [place] [address] O [id number] 2020 Medicare [id number] 2013 Unknown [id number] 2010 Medicare [id number] 1945 Unknown [id number] Medicare [id number] Unknown Unknown [facility] PACKAGE PLAN [id number] Unknown [id number] Unknown [id number] Unknown [id number] Unknown [id number] Unknown [id number] Unknown [id number] Unknown [id number] Unknown [id number] Unknown [id number] Unknown [id number] Unknown [id number] Unknown [id number] Unknown [id number] Unknown [id number] Social History Date Type Detail Facility Alcohol Use: Alcohol Use: [facility] Work Phone: Comment on above: wine Tobacco Use: Tobacco Use: [facility] Work Phone: Start: 01-08-2022 End: 12-03-2023 Tobacco smoking status WYIS Unknown if ever smoked [facility] Start: 1945 Sex Assigned At Male [facility] Start: 11-24-2010 End: 05-10-2024 Tobacco smoking status WYIS Never smoked tobacco [facility] Work Phone: Start: 11-24-2010 End: 12-29-2010 Tobacco use and exposure Smokeless tobacco non-user [facility] Work Phone: Start: 04-10-2022 End: 04-17-2022 Alcohol intake Current drinker of alcohol (finding) [facility] Start: 04-10-2022 End: 04-17-2022 Alcohol intake [facility] Start: 1945 Sex Assigned At Not on file [facility] Start: 03-31-2022 End: 04-17-2022 Exposure to SARS-CoV-2 (event) Not sure [facility] Start: 12-30-2024 Sex Male (finding) [facility] Goals Date Patient Goal Desired Activity /State Mental Status Date Assessment Result Facility 02-13-2023 Cognitive function Voice/Name [facility] Work Phone: 11-29-2022 Cognitive function Awake;Alert;Appropriat e [facility] Work Phone: 01-10-2022 Cognitive function Voice/Name [facility] Work Phone: Clinical Notes 04-10-2022 to 10-01-2024 Note Date & Type Note Facility 10-01-2024 Evaluation note Diagnosis Onset Date Resolution Onofre esophagus chronic October 01, 2024 1:53pm Gastroesophageal reflux disease noneactive October 01 1:53pm Onofre esophagus chronic December 082024 8:26am Gastroesophageal reflux disease noneactive December 17, 2024 8:26am [facility] Work Phone: 1(618) 564-275006-24-2024 [facility] Medical Records Department [address] [place] [address] History Physical Exam 03/02/24 0643 MR#: [id number] Acct: [id number] Name: JUNG ABURTO Rep #: [id number] : 1945 78 From: David Friend DO PCP: Dr. Francheska Alonzo, DO Status:REG [facility] Location: [place] [address] History and Physical Date of Admission: 03/02/24 JUNG ABURTO, is a 77 M who presents to [...] Esophageal mucosal changes secondary to ? established short- segment Onofre's disease. ? Biopsied. ? - Hiatal [...] and oriented x3 Quality Reporting Tobacco Screening ([facility] 138) Smoking Status: Never smoker Assessment and Plan Assessment and Plan (1) Onofre esophagus: Status: Chronic Plan: Discussed EGD findings, positive for Onofre's still, negative for dysplasia, continue PPI and [id number] Ok to try meloxicam for OA Repeat EGD one yr I have examined the patient and the H P has been reviewed. There are no clinical changes since date of exam. 03/02/24 0643 Cosigner Signature (if applicable): CC: Dr. Francheska Alonzo DO; David Parra, DO [facility] Procedure [facility]03-27-2023 Procedure [facility]03-24-2023 History and physical note Author Tea Hart [facility] November 30, 2022 4:03pm Note Date/Time November 30, 2022 4:0 3pm [facility] Medical Records Department [address] [place] [id number] History & Physical Exam 11/30/22 1600 MR#: [id number] Acct: [id number] Name: JUNG ABURTO Rep #:[id number] : 1945 77 From: Tea ARIZMENDI PA PCP: Dr. Francheska Alonzo DO Status:PRE [facility] Location: [facility] History and Physical JUNG ABURTO, is a 77 M who presents today for a cardiovascular outpatient follow-up.? He is a gentleman with no obstructive coronary disease, hypertension, hyperlipidemia, and probable raynauds phenomenon.? He returns for follow-up visit.? You do remember he underwent stress echocardiographic evaluation in 2017 with no evidence of ischemia.? He also underwent stress echocardiogram on 05/05/2021 [...] denies unexplainable fatigue. His exercise tolerance is stable.? Me that his lipid profile was excellent and he is due to have one with you soon.? His statin was increased. PFSH Medical History? Alcohol use Arthritis Back pain Onofre esophagus Cardiology follow-up encounter Chronic renal insufficiency Essential (primary) hypertension Gastric reflux Gastritis GERD (gastroesophageal reflux disease) Hepatitis High cholesterol History of echocardiogram History of edema History of stress test Hx of colonic polyp Hyperlipidemia Mitral valve annular calcification Non-smoker Palpitations Raynaud disease Wears glasses Surgical History? History of hydrocelectomy Hx of appendectomy Hx of colonoscopy Hx of foot surgery Hx of hernia repair Hx of transurethral resection of prostate Family History? Father CancerMother?? ,? age 72 CAD (coronary artery disease) Hypertension Social History? Smoking Status:? Never smoker alcohol intake:? current alcohol intake frequency: 0-2 drinks per day substance use type:? does not use caffeine:? Yes Type: coffee Number of servings: 4 [...] SOB with activity, SOB at rest, SOB orthopnea\SOB lying down, Cough or paroxysmal nocturnal dyspnea [...] functional aerobic capacity. No arrhythmias noted. Assessment & Plan Assessment/Plan (1) Abnormal cardiac CT angiography: (2) Essential (primary) hypertension: (3) Hyperlipidemia: QUALIFIERS: Hyperlipidemia type: pure hypercholesterolemia Qualified Code(s): E78.00 - Pure hypercholesterolemia, unspecified; E78.0 - Purehypercholesterolemia PLAN: Plan Patient will proceed with a diagnostic heart catheterization for his elevated coronary calcium score. He will continue with his current blood pressure medications and current dose of statin at this time. 11/30/22 1603 <Electronically signed by Tea ARIZMENDI> Cosigner Signature (if applicable): CC: KYLEIGH Hart; Dr. Francheska Alonzo, DO~ Signed [facility] Work Phone: 1(614) 545-713108-09-2022 NoteHNO ID: [id number] Author: Mal Joseph MD Service: ? Author Type: Physician Type: [...] applied and the patient tolerated the procedure well.[facility]08-09-2022 NoteHNO ID: [id number] Author: Ofelia Plaza Service: ? Author Type: [...] procedures): All specimen containers correctly labeled. [facility] History of Present illness Narrative* Mal Joseph MD - 04/17/2022 2:10 PM EDT Preoperative diagnosis: Subcutaneous mass to right breast [...] Sterile dressings were applied and the patient harman erated the procedure well. * Ofelia Plaza - 04/17/2022 1:39 PM EDT UNIVERSAL PROTOCOL / SAFETY CHECKLIST Procedure to [...] correctly labeled. Ofelia Plaza [facility] NoteHNO ID: [id number] Author: Mal Joseph MD Service: ? Author Type: Physician Type: Progress Notes Filed: 04/10/2022 3:18 PM Note Text: HISTORY AND PHYSICAL - BREAST COMPLAINT Jung Aburto 1945 REFERRING PHYSICIAN: Francheska Alonzo DO CHIEF [...] entered by the nurse and reviewed by ks Nursing Notes: Kirstie Lopez RN 04/10/2022 9:38 AM Signed REVIEW OF [...] depression, and denies voices, (more content not included)...[facility]08-02-2022 History of Present illness Narrative* Mal Joseph MD - 04/10/2022 3:15 PM EDT HISTORY AND PHYSICAL - BREAST COMPLAINT Jung Aburto 1945 REFERRING PHYSICIAN: Francheska Alonzo DO CHIEF [...] entered by the nurse and reviewed by ks Nursing Notes: Kirstie Lopez RN 04/10/2022 9:38 AM Signed REVIEW OF [...] failure, other cardiac issues, denies claudication, denies coldfeet, denies peripheral arterial stent. Respiratory: The patient [...] back pain/injury, denies back problems, denies sciatica, deniesknee/foot trouble, denies arthritis, or denies gout. When was patient's last Mammogram screening? 2021 Last Colonoscopy: 2017 Kirstie Lopez RN PHYSICAL EXAMINATION: General: The patient is 76 year old male, well nourished, well hydrated in no acute distress. The patient is oriented to time, place, and person. VITALS: Blood pressure 136/84, pulse 76, height 185.4 cm (6' 1), weight 79.3 kg (174 lb 12.8 oz), SpO2 98 %. Body mass index is 23.06 kg/m . HEENT: Normal cephalic, ataumatic, pupils are equally round, sclera are anicteric, mucous membranesare moist, oropharynx is clear. Neck has no [...] with me 1 week post operatively. Mal Joseph III, MD documented in [facility] Nurse Note* Kirstie Lopez RN - 04/10/2022 9:32 AM EDT REVIEW OF SYSTEMS: General: The patient denies [...] failure, other cardiac issues, denies claudication, denies coldfeet, denies peripheral arterial stent. Respiratory: The patient [...] back pain/injury, denies back problems, denies sciatica, deniesknee/foot trouble, denies arthritis, or denies gout. When was patient's last Mammogram screening? 2021 Last Colonoscopy: 2017 Kirstie Lopez RN [facility] Diagnosis Onset Date Resolution Status Essential (primary) hypertension chronic Hyperlipidemia chronic GERD (gastroesophageal reflux disease) acute Hx of colonic polyp acute [facility] Work Phone: Evaluation note* Diagnosis Subareolar mass of right breast- Primary documented in this encounter [facility] note* Diagnosis Onset Date Resolution Status Onofre esophagus acute Gastritis acute GERD (gastroesophageal reflux disease) acute Hx of colonic polyp acute [facility] Work Phone: Evaluation note* Diagnosis Onset Date Resolution Status Essential (primary) hypertension chronic Hyperlipidemia chronic Abnormal cardiac CT angiography acute Essential (primary) hypertension chronic Hyperlipidemia chronic [facility] Work Phone: Evaluation note* Diagnosis Onset Date Resolution Status Essential (primary) hypertension chronic Hyperlipidemia chronic Abnormal cardiac CT angiography acute Essential (primary) hypertension chronic Hyperlipidemia chronic Onofre esophagus chronic [facility] Work Phone: Evaluation note* Diagnosis Onset Date Resolution Status Abnormal cardiac CT angiography acute Essential (primary) hypertension chronic Hyperlipidemia chronic Onofre esophagus chronic Onofre esophagus chronic [facility] Work Phone: Evaluation note* Diagnosis Onset Date Resolution Status Onofre esophagus chronic [facility] Work Phone: Evaluation note* Diagnosis Onset Date Resolution Status Left breast mass acute [facility] Work Phone: Evaluation note* Diagnosis Onset Date Resolution Status Essential (primary) hypertension chronic Hyperlipidemia chronic [facility] Work Phone: History and physical note Author David Friend [facility] February 13, 2023 7:54am Note Date/Time February 13, 2023 7:54a m [facility] Medical Records Department [address] [place] [address] History & Physical Exam 02/13/23 0753 MR#: [id number] Acct: [id number] Name: JAREDJUNG ELIZALDEOLPH Rep #:[id number] : 1945 77 From: David Friend DO PCP: Dr. Francheska Alonzo, DO Status:REG [facility] Location: [place] [address] History and Physical Date of Admission: 02/13/23 77 M who presents to the office today for f/u Onofre's, GERD, bloating. Last year he reported bloating had resolved with addition of probiotic. No longer taking probiotic. Gets bloating one hour after eating, better if he avoids high FODMAP foods. Takes Dexilant qam and famotidine 40 mg qpm, acid reflux is prettywell controlled (except if he consumes chocolate or red wine). Jung established with this clinic 3.09.30 for screening colonoscopy evaluation. His age puts him past open access scheduling. His father had colon cancer in his early 60?s. Hx of iron deficiency. EGD and colonoscopy performed .12.29. EGD found LA Grade B esophagitis, Onofre?s esophagus Ki-67 positive; medium sized hiatal hernia; [...] loose stools, Black,tarry stools, nausea/dyspepsia, pain with swallowing,vomiting or other Musc Musculoskeletal: Positive for joint [...] and oriented x3 Quality Reporting Tobacco Screening ([facility] 138) Smoking Status: Never smoker Assessment and Plan Assessment and Plan (1) Onofre esophagus: ?Status:?Chronic ?Plan: Schedule EGD to reeval Onofre's Continue dexilant and famotidine I have examined the patient and the H&P has been reviewed. There are no clinicalchanges since date of exam. 02/13/23 0754 <Electronically signed by David Parra DO> Cosigner Signature (if applicable): CC: Dr. Francheska Alonzo DO; David Parra DO~ Signed [facility] Work Phone: Instructions* Name Dates Details Patient Instructions Indication:Nonsmoker Start:11-Jul-2021 Instruction Type:Provider Instructions for Treatment How to Access Health Informa tion Online using Patient Portal and [employer] Indication:Nonsmoker Start:11-Jul-2021 Instruction Type:Patient Edu cation Patient Instructions Indication:Nonsmoker Start:16-May-2021 Instruction Type:Provider Instructions for Treatment How to Access Health Informa tion Online using Patient Portal and [employer] Indication:Nonsmoker Start:16-May-2021 Instruction Type:Patient Edu cation [facility] Work Phone: Instructions* Name Dates Details Patient Instructions Indication:Nonsmoker Start:11-Jul-2021 Instruction Type:Provider Instructions for Treatment How to Access Health Informa tion Online using Patient Portal and [employer] Indication:Nonsmoker Start:11-Jul-2021 Instruction Type:Patient Edu cation Patient Instructions Indication:Nonsmoker Start:16-May-2021 Instruction Type:Provider Instructions for Treatment How to Access Health Informa tion Online using Patient Portal and [employer] Indication:Nonsmoker Start:16-May-2021 Instruction Type:Patient Edu cation [facility] Work Phone: [employer]* Name Dates Details Patient Instructions Indication:Hyperlipidemia Start:25-Oct-2021 Instruction Type:Provider Instructions for Treatment How to Access Health Informa tion Online using Patient Portal and [employer] Indication:Hyperlipidemia Start:25-Oct-2021 Instruction Type:Patient Education Patient Instructions Indication:Nonsmoker Start:11-Jul-2021 Instruction Type:Provider Instructions for Treatment How to Access Health Informa tion Online using Patient Portal and [employer] Indication:Nonsmoker Start:11-Jul-2021 Instruction Type:Patient Education Patient Instructions Indication:Nonsmoker Start:16-May-2021 Instruction Type:Provider Instructions for Treatment How to Access Health Informa tion Online using Patient Portal and [employer] Apps Indication:Nonsmoker Start:16-May-2021 Instruction Type:Patient Education [facility]; [facility] Work Phone: instructions* Name Dates Details Patient Instructions Indication:Hyperlipidemia Start:25-Oct-2021 Instruction Type:Provider Instructions for Treatment How to Access Health Informa tion Online using Patient Portal and 3rd [employer] Apps Indication:Hyperlipidemia Start:25-Oct-2021 Instruction Type:Patient Education Patient Instructions Indication:Nonsmoker Start:11-Jul-2021 Instruction Type:Provider Instructions for Treatment How to Access Health Informa tion Online using Patient Portal and [employer] Apps Indication:Nonsmoker Start:11-Jul-2021 Instruction Type:Patient Education Patient Instructions Indication:Nonsmoker Start:16-May-2021 Instruction Type:Provider Instructions for Treatment How to Access Health Informa tion Online using Patient Portal and [employer] Apps Indication:Nonsmoker Start:16-May-2021 Instruction Type:Patient Education [facility]; [facility] Work Phone: instructions* Name Dates Details Patient Instructions Indication:Hyperlipidemia Start:25-Oct-2021 Instruction Type:Provider Instructions for Treatment How to Access Health Informa tion Online using Patient Portal and [employer] Apps Indication:Hyperlipidemia Start:25-Oct-2021 Instruction Type:Patient Education Patient Instructions Indication:Nonsmoker Start:11-Jul-2021 Instruction Type:Provider Instructions for Treatment How to Access Health Informa tion Online using Patient Portal and [employer]rd Republican Apps Indication:Nonsmoker Start:11-Jul-2021 Instruction Type:Patient Education Patient Instructions Indication:Nonsmoker Start:16-May-2021 Instruction Type:Provider Instructions for Treatment How to Access Health Informa tion Online using Patient Portal and [employer]rd Republican Apps Indication:Nonsmoker Start:16-May-2021 Instruction Type:Patient Education [facility]; [facility] Work Phone: instructions* Name Dates Details Patient Instructions Indication:Hyperlipidemia Start:25-Oct-2021 Instruction Type:Provider Instructions for Treatment How to Access Health Informa tion Online using Patient Portal and 3rd Republican Apps Indication:Hyperlipidemia Start:25-Oct-2021 Instruction Type:Patient Education Patient Instructions Indication:Nonsmoker Start:11-Jul-2021 Instruction Type:Provider Instructions for Treatment How to Access Health Informa tion Online using Patient Portal and [employer] Apps Indication:Nonsmoker Start:11-Jul-2021 Instruction Type:Patient Education Patient Instructions Indication:Nonsmoker Start:16-May-2021 Instruction Type:Provider Instructions for Treatment How to Access Health Informa tion Online using Patient Portal and [employer] Apps Indication:Nonsmoker Start:16-May-2021 Instruction Type:Patient Education [facility]; [facility] Work Phone: instructions* Name Dates Details Patient Instructions Indication:Hyperlipidemia Start:25-Oct-2021 Instruction Type:Provider Instructions for Treatment How to Access Health Informa tion Online using Patient Portal and Existence [employer] Apps Indication:Hyperlipidemia Start:25-Oct-2021 Instruction Type:Patient Education Patient Instructions Indication:Nonsmoker Start:11-Jul-2021 Instruction Type:Provider Instructions for Treatment How to Access Health Informa tion Online using Patient Portal and [employer] Apps Indication:Nonsmoker Start:11-Jul-2021 Instruction Type:Patient Education Patient Instructions Indication:Nonsmoker Start:16-May-2021 Instruction Type:Provider Instructions for Treatment How to Access Health Informa tion Online using Patient Portal and [employer] Apps Indication:Nonsmoker Start:16-May-2021 Instruction Type:Patient Education [facility]; [facility] Work Phone: instructions* Name Dates Details Patient Instructions Indication:Hyperlipidemia Start:25-Oct-2021 Instruction Type:Provider Instructions for Treatment How to Access Health Informa tion Online using Patient Portal and [employer] Apps Indication:Hyperlipidemia Start:25-Oct-2021 Instruction Type:Patient Education Patient Instructions Indication:Nonsmoker Start:11-Jul-2021 Instruction Type:Provider Instructions for Treatment How to Access Health Informa tion Online using Patient Portal and Ex[employer] Apps Indication:Nonsmoker Start:11-Jul-2021 Instruction Type:Patient Education Patient Instructions Indication:Nonsmoker Start:16-May-2021 Instruction Type:Provider Instructions for Treatment How to Access Health Informa tion Online using Patient Portal and [employer] Apps Indication:Nonsmoker Start:16-May-2021 Instruction Type:Patient Education [facility]; [facility] Work Phone: Instructions* Name Dates Details Patient Instructions Indication:Hyperlipidemia Start:25-Oct-2021 Instruction Type:Provider Instructions for Treatment How to Access Health Informa tion Online using Patient Portal and [employer]rd Republican Apps Indication:Hyperlipidemia Start:25-Oct-2021 Instruction Type:Patient Education Patient Instructions Indication:Nonsmoker Start:11-Jul-2021 Instruction Type:Provider Instructions for Treatment How to Access Health Informa tion Online using Patient Portal and [employer] Apps Indication:Nonsmoker Start:11-Jul-2021 Instruction Type:Patient Education Patient Instructions Indication:Nonsmoker Start:16-May-2021 Instruction Type:Provider Instructions for Treatment How to Access Health Informa tion Online using Patient Portal and [employer]rd [employer] Apps Indication:Nonsmoker Start:16-May-2021 Instruction Type:Patient Education [facility]; [facility] Work Phone: instructions* Name Dates Details Patient Instructions Indication:Anxiety Start:24-Jan-2022 Instruction Type:Provider Instructions for Treatment How to Access Health Informa tion Online using Patient Portal and [employer]rd [employer] Apps Indication:Anxiety Start:24-Jan-2022 Instruction Type:Patient Education Patient Instructions Indication:Hyperlipidemia Start:25-Oct-2021 Instruction Type:Provider Instructions for Treatment How to Access Health Informa tion Online using Patient Portal and [employer] Apps Indication:Hyperlipidemia Start:25-Oct-2021 Instruction Type:Patient Education Patient Instructions Indication:Nonsmoker Start:11-Jul-2021 Instruction Type:Provider Instructions for Treatment How to Access Health Informa tion Online using Patient Portal and [employer] Apps Indication:Nonsmoker Start:11-Jul-2021 Instruction Type:Patient Education Patient Instructions Indication:Nonsmoker Start:16-May-2021 Instruction Type:Provider Instructions for Treatment How to Access Health Informa tion Online using Patient Portal and [employer] Apps Indication:Nonsmoker Start:16-May-2021 Instruction Type:Patient Education [facility]; [facility] Work Phone: instructions* Name Dates Details Patient Instructions Indication:Anxiety Start:24-Jan-2022 Instruction Type:Provider Instructions for Treatment How to Access Health Informa tion Online using Patient Portal and [employer]rd Republican Apps Indication:Anxiety Start:24-Jan-2022 Instruction Type:Patient Education Patient Instructions Indication:Hyperlipidemia Start:25-Oct-2021 Instruction Type:Provider Instructions for Treatment How to Access Health Informa tion Online using Patient Portal and [employer]rd Republican Apps Indication:Hyperlipidemia Start:25-Oct-2021 Instruction Type:Patient Education Patient Instructions Indication:Nonsmoker Start:11-Jul-2021 Instruction Type:Provider Instructions for Treatment How to Access Health Informa tion Online using Patient Portal and [employer] Apps Indication:Nonsmoker Start:11-Jul-2021 Instruction Type:Patient Education Patient Instructions Indication:Nonsmoker Start:16-May-2021 Instruction Type:Provider Instructions for Treatment How to Access Health Informa tion Online using Patient Portal and [employer]rd Republican Apps Indication:Nonsmoker Start:16-May-2021 Instruction Type:Patient Education [facility]; [facility] Work Phone: [email or web address]* Name Dates Details Patient Instructions Indication:Anxiety Start:24-Jan-2022 Instruction Type:Provider Instructions for Treatment How to Access Health Informa tion Online using Patient Portal and [employer]rd Republican Apps Indication:Anxiety Start:24-Jan-2022 Instruction Type:Patient Education Patient Instructions Indication:Hyperlipidemia Start:25-Oct-2021 Instruction Type:Provider Instructions for Treatment How to Access Health Informa tion Online using Patient Portal and [employer] Republican Apps Indication:Hyperlipidemia Start:25-Oct-2021 Instruction Type:Patient Education Patient Instructions Indication:Nonsmoker Start:11-Jul-2021 Instruction Type:Provider Instructions for Treatment How to Access Health Informa tion Online using Patient Portal and [employer]rd Republican Apps Indication:Nonsmoker Start:11-Jul-2021 Instruction Type:Patient Education Patient Instructions Indication:Nonsmoker Start:16-May-2021 Instruction Type:Provider Instructions for Treatment How to Access Health Informa tion Online using Patient Portal and [employer] Apps Indication:Nonsmoker Start:16-May-2021 Instruction Type:Patient Education [facility]; [facility] Work Phone: instructions* Name Dates Details Patient Instructions Indication:Anxiety Start:24-Jan-2022 Instruction Type:Provider Instructions for Treatment How to Access Health Informa tion Online using Patient Portal and [employer]rd Republican Apps Indication:Anxiety Start:24-Jan-2022 Instruction Type:Patient Education Patient Instructions Indication:Hyperlipidemia Start:25-Oct-2021 Instruction Type:Provider Instructions for Treatment How to Access Health Informa tion Online using Patient Portal and [employer] Apps Indication:Hyperlipidemia Start:25-Oct-2021 Instruction Type:Patient Education Patient Instructions Indication:Nonsmoker Start:11-Jul-2021 Instruction Type:Provider Instructions for Treatment How to Access Health Informa tion Online using Patient Portal and [employer] Republican Apps Indication:Nonsmoker Start:11-Jul-2021 Instruction Type:Patient Education Patient Instructions Indication:Nonsmoker Start:16-May-2021 Instruction Type:Provider Instructions for Treatment How to Access Health Informa tion Online using Patient Portal and [employer]rd [employer] Apps Indication:Nonsmoker Start:16-May-2021 Instruction Type:Patient Education [facility]; [facility] Work Phone: [email or web address]* Name Dates Details Patient Instructions Indication:Nonsmoker Start:23-Mar-2022 Instruction Type:Provider Instructions for Treatment How to Access Health Informa tion Online using Patient Portal and [employer] Apps Indication:Nonsmoker Start:23-Mar-2022 Instruction Type:Patient Education Patient Instructions Indication:Anxiety Start:24-Jan-2022 Instruction Type:Provider Instructions for Treatment How to Access Health Informa tion Online using Patient Portal and [employer] Apps Indication:Anxiety Start:24-Jan-2022 Instruction Type:Patient Education Patient Instructions Indication:Hyperlipidemia Start:25-Oct-2021 Instruction Type:Provider Instructions for Treatment How to Access Health Informa tion Online using Patient Portal and [employer] Republican Apps Indication:Hyperlipidemia Start:25-Oct-2021 Instruction Type:Patient Education Patient Instructions Indication:Nonsmoker Start:11-Jul-2021 Instruction Type:Provider Instructions for Treatment How to Access Health Informa tion Online using Patient Portal and [employer] Apps Indication:Nonsmoker Start:11-Jul-2021 Instruction Type:Patient Education Patient Instructions Indication:Nonsmoker Start:16-May-2021 Instruction Type:Provider Instructions for Treatment How to Access Health Informa tion Online using Patient Portal and [employer] Apps Indication:Nonsmoker Start:16-May-2021 Instruction Type:Patient Education [facility]; [facility] Work Phone: instructions* Name Dates Details Patient Instructions Indication:Nonsmoker Start:23-Mar-2022 Instruction Type:Provider Instructions for Treatment How to Access Health Informa tion Online using Patient Portal and [employer] Apps Indication:Nonsmoker Start:23-Mar-2022 Instruction Type:Patient Education Patient Instructions Indication:Anxiety Start:24-Jan-2022 Instruction Type:Provider Instructions for Treatment How to Access Health Informa tion Online using Patient Portal and [employer] Republican Apps Indication:Anxiety Start:24-Jan-2022 Instruction Type:Patient Education Patient Instructions Indication:Hyperlipidemia Start:25-Oct-2021 Instruction Type:Provider Instructions for Treatment How to Access Health Informa tion Online using Patient Portal and [employer] Apps Indication:Hyperlipidemia Start:25-Oct-2021 Instruction Type:Patient Education Patient Instructions Indication:Nonsmoker Start:11-Jul-2021 Instruction Type:Provider Instructions for Treatment How to Access Health Informa tion Online using Patient Portal and [employer] Apps Indication:Nonsmoker Start:11-Jul-2021 Instruction Type:Patient Education Patient Instructions Indication:Nonsmoker Start:16-May-2021 Instruction Type:Provider Instructions for Treatment How to Access Health Informa tion Online using Patient Portal and [employer] Apps Indication:Nonsmoker Start:16-May-2021 Instruction Type:Patient Education [facility]; [facility] Work Phone: Instructions* Name Dates Details Patient Instructions 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 Start:27-May-2022 Instruction Type:Provider Instructions for Treatment Patient Instructions Indication:Nonsmoker Start:23-Mar-2022 Instruction Type:Provider Instructions for Treatment How to Access Health Informa tion Online using Patient Portal and [employer] Apps Indication:Nonsmoker Start:23-Mar-2022 Instruction Type:Patient Education Patient Instructions Indication:Anxiety Start:24-Jan-2022 Instruction Type:Provider Instructions for Treatment How to Access Health Informa tion Online using Patient Portal and [employer] Apps Indication:Anxiety Start:24-Jan-2022 Instruction Type:Patient Education Patient Instructions Indication:Hyperlipidemia Start:25-Oct-2021 Instruction Type:Provider Instructions for Treatment How to Access Health Informa tion Online using Patient Portal and [employer] Apps Indication:Hyperlipidemia Start:25-Oct-2021 Instruction Type:Patient Education Patient Instructions Indication:Nonsmoker Start:11-Jul-2021 Instruction Type:Provider Instructions for Treatment How to Access Health Informa tion Online using Patient Portal and [employer] Apps Indication:Nonsmoker Start:11-Jul-2021 Instruction Type:Patient Education Patient Instructions Indication:Nonsmoker Start:16-May-2021 Instruction Type:Provider Instructions for Treatment How to Access Health Informa tion Online using Patient Portal and [employer] Apps Indication:Nonsmoker Start:16-May-2021 Instruction Type:Patient Education [facility]; [facility] Work Phone: Instructions* Name Dates Details Patient Instructions Indication:Nonsmoker Start:30-Jul-2022 Instruction Type:Provider Instructions for Treatment How to Access Health Informa tion Online using Patient Portal and [employer] Apps Indication:Nonsmoker Start:30-Jul-2022 Instruction Type:Patient Education Patient Instructions 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 Start:27-May-2022 Instruction Type:Provider Instructions for Treatment Patient Instructions Indication:Nonsmoker Start:23-Mar-2022 Instruction Type:Provider Instructions for Treatment How to Access Health Informa tion Online using Patient Portal and [employer] Apps Indication:Nonsmoker Start:23-Mar-2022 Instruction Type:Patient Education Patient Instructions Indication:Anxiety Start:24-Jan-2022 Instruction Type:Provider Instructions for Treatment How to Access Health Informa tion Online using Patient Portal and [employer] Apps Indication:Anxiety Start:24-Jan-2022 Instruction Type:Patient Education Patient Instructions Indication:Hyperlipidemia Start:25-Oct-2021 Instruction Type:Provider Instructions for Treatment How to Access Health Informa tion Online using Patient Portal and [employer] Apps Indication:Hyperlipidemia Start:25-Oct-2021 Instruction Type:Patient Education Patient Instructions Indication:Nonsmoker Start:11-Jul-2021 Instruction Type:Provider Instructions for Treatment How to Access Health Informa tion Online using Patient Portal and [employer] Apps Indication:Nonsmoker Start:11-Jul-2021 Instruction Type:Patient Education Patient Instructions Indication:Nonsmoker Start:16-May-2021 Instruction Type:Provider Instructions for Treatment How to Access Health Informa tion Online using Patient Portal and [employer] Apps Indication:Nonsmoker Start:16-May-2021 Instruction Type:Patient Education [facility]; [facility] Work Phone: [email or web address]* Name Dates Details Patient Instructions Indication:Nonsmoker Start:30-Jul-2022 Instruction Type:Provider Instructions for Treatment How to Access Health Informa tion Online using Patient Portal and [employer] Apps Indication:Nonsmoker Start:30-Jul-2022 Instruction Type:Patient Education Patient Instructions 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 Start:27-May-2022 Instruction Type:Provider Instructions for Treatment Patient Instructions Indication:Nonsmoker Start:23-Mar-2022 Instruction Type:Provider Instructions for Treatment How to Access Health Informa tion Online using Patient Portal and [employer] Apps Indication:Nonsmoker Start:23-Mar-2022 Instruction Type:Patient Education Patient Instructions Indication:Anxiety Start:24-Jan-2022 Instruction Type:Provider Instructions for Treatment How to Access Health Informa tion Online using Patient Portal and [employer] Apps Indication:Anxiety Start:24-Jan-2022 Instruction Type:Patient Education Patient Instructions Indication:Hyperlipidemia Start:25-Oct-2021 Instruction Type:Provider Instructions for Treatment How to Access Health Informa tion Online using Patient Portal and [employer] Apps Indication:Hyperlipidemia Start:25-Oct-2021 Instruction Type:Patient Education Patient Instructions Indication:Nonsmoker Start:11-Jul-2021 Instruction Type:Provider Instructions for Treatment How to Access Health Informa tion Online using Patient Portal and [employer] Apps Indication:Nonsmoker Start:11-Jul-2021 Instruction Type:Patient Education Patient Instructions Indication:Nonsmoker Start:16-May-2021 Instruction Type:Provider Instructions for Treatment How to Access Health Informa tion Online using Patient Portal and [employer] Apps Indication:Nonsmoker Start:16-May-2021 Instruction Type:Patient Education [facility]; [facility] Work Phone: Instructions* Name Dates Details Patient Instructions Indication:Nonsmoker Start:30-Jul-2022 Instruction Type:Provider Instructions for Treatment How to Access Health Informa tion Online using Patient Portal and [employer] Apps Indication:Nonsmoker Start:30-Jul-2022 Instruction Type:Patient Education Patient Instructions 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 Start:27-May-2022 Instruction Type:Provider Instructions for Treatment Patient Instructions Indication:Nonsmoker Start:23-Mar-2022 Instruction Type:Provider Instructions for Treatment How to Access Health Informa tion Online using Patient Portal and [employer] Apps Indication:Nonsmoker Start:23-Mar-2022 Instruction Type:Patient Education Patient Instructions Indication:Anxiety Start:24-Jan-2022 Instruction Type:Provider Instructions for Treatment How to Access Health Informa tion Online using Patient Portal and [employer] Apps Indication:Anxiety Start:24-Jan-2022 Instruction Type:Patient Education Patient Instructions Indication:Hyperlipidemia Start:25-Oct-2021 Instruction Type:Provider Instructions for Treatment How to Access Health Informa tion Online using Patient Portal and [employer] Apps Indication:Hyperlipidemia Start:25-Oct-2021 Instruction Type:Patient Education Patient Instructions Indication:Nonsmoker Start:11-Jul-2021 Instruction Type:Provider Instructions for Treatment How to Access Health Informa tion Online using Patient Portal and [employer] Apps Indication:Nonsmoker Start:11-Jul-2021 Instruction Type:Patient Education Patient Instructions Indication:Nonsmoker Start:16-May-2021 Instruction Type:Provider Instructions for Treatment How to Access Health Informa tion Online using Patient Portal and [employer] Apps Indication:Nonsmoker Start:16-May-2021 Instruction Type:Patient Education [facility]; [facility] Work Phone: Instructions* Name Dates Details Patient Instructions Indication:Nonsmoker Start:30-Jul-2022 Instruction Type:Provider Instructions for Treatment How to Access Health Informa tion Online using Patient Portal and [employer] Apps Indication:Nonsmoker Start:30-Jul-2022 Instruction Type:Patient Education Patient Instructions 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 Start:27-May-2022 Instruction Type:Provider Instructions for Treatment Patient Instructions Indication:Nonsmoker Start:23-Mar-2022 Instruction Type:Provider Instructions for Treatment How to Access Health Informa tion Online using Patient Portal and [employer] Apps Indication:Nonsmoker Start:23-Mar-2022 Instruction Type:Patient Education Patient Instructions Indication:Anxiety Start:24-Jan-2022 Instruction Type:Provider Instructions for Treatment How to Access Health Informa tion Online using Patient Portal and [employer] Apps Indication:Anxiety Start:24-Jan-2022 Instruction Type:Patient Education Patient Instructions Indication:Hyperlipidemia Start:25-Oct-2021 Instruction Type:Provider Instructions for Treatment How to Access Health Informa tion Online using Patient Portal and [employer] Apps Indication:Hyperlipidemia Start:25-Oct-2021 Instruction Type:Patient Education Patient Instructions Indication:Nonsmoker Start:11-Jul-2021 Instruction Type:Provider Instructions for Treatment How to Access Health Informa tion Online using Patient Portal and [employer] Apps Indication:Nonsmoker Start:11-Jul-2021 Instruction Type:Patient Education Patient Instructions Indication:Nonsmoker Start:16-May-2021 Instruction Type:Provider Instructions for Treatment How to Access Health Informa tion Online using Patient Portal and [employer] Apps Indication:Nonsmoker Start:16-May-2021 Instruction Type:Patient Education [facility]; [facility] Work Phone: Instructions* Name Dates Details Patient Instructions Indication:Nonsmoker Start:30-Jul-2022 Instruction Type:Provider Instructions for Treatment How to Access Health Informa tion Online using Patient Portal and [employer] Apps Indication:Nonsmoker Start:30-Jul-2022 Instruction Type:Patient Education Patient Instructions 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 Start:27-May-2022 Instruction Type:Provider Instructions for Treatment Patient Instructions Indication:Nonsmoker Start:23-Mar-2022 Instruction Type:Provider Instructions for Treatment How to Access Health Informa tion Online using Patient Portal and [employer] Apps Indication:Nonsmoker Start:23-Mar-2022 Instruction Type:Patient Education Patient Instructions Indication:Anxiety Start:24-Jan-2022 Instruction Type:Provider Instructions for Treatment How to Access Health Informa tion Online using Patient Portal and [employer] Apps Indication:Anxiety Start:24-Jan-2022 Instruction Type:Patient Education Patient Instructions Indication:Hyperlipidemia Start:25-Oct-2021 Instruction Type:Provider Instructions for Treatment How to Access Health Informa tion Online using Patient Portal and [employer] Apps Indication:Hyperlipidemia Start:25-Oct-2021 Instruction Type:Patient Education Patient Instructions Indication:Nonsmoker Start:11-Jul-2021 Instruction Type:Provider Instructions for Treatment How to Access Health Informa tion Online using Patient Portal and [employer]rd [employer] Apps Indication:Nonsmoker Start:11-Jul-2021 Instruction Type:Patient Education Patient Instructions Indication:Nonsmoker Start:16-May-2021 Instruction Type:Provider Instructions for Treatment How to Access Health Informa tion Online using Patient Portal and [employer]rd [employer] Apps Indication:Nonsmoker Start:16-May-2021 Instruction Type:Patient Education [facility]; [facility] Work Phone: Instructions* Name Dates Details Patient Instructions Indication:Hyperlipidemia Start:12-Nov-2022 Instruction Type:Provider Instructions for Treatment How to Access Health Informa tion Online using Patient Portal and [employer]rd [employer] Apps Indication:Hyperlipidemia Start:12-Nov-2022 Instruction Type:Patient Education Patient Instructions Indication:Nonsmoker Start:30-Jul-2022 Instruction Type:Provider Instructions for Treatment How to Access Health Informa tion Online using Patient Portal and [employer]rd [employer] Apps Indication:Nonsmoker Start:30-Jul-2022 Instruction Type:Patient Education Patient Instructions 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 Start:27-May-2022 Instruction Type:Provider Instructions for Treatment Patient Instructions Indication:Nonsmoker Start:23-Mar-2022 Instruction Type:Provider Instructions for Treatment How to Access Health Informa tion Online using Patient Portal and [employer]rd [employer] Apps Indication:Nonsmoker Start:23-Mar-2022 Instruction Type:Patient Education Patient Instructions Indication:Anxiety Start:24-Jan-2022 Instruction Type:Provider Instructions for Treatment How to Access Health Informa tion Online using Patient Portal and [employer]rd [employer] Apps Indication:Anxiety Start:24-Jan-2022 Instruction Type:Patient Education Patient Instructions Indication:Hyperlipidemia Start:25-Oct-2021 Instruction Type:Provider Instructions for Treatment How to Access Health Informa tion Online using Patient Portal and [employer]rd [employer] Apps Indication:Hyperlipidemia Start:25-Oct-2021 Instruction Type:Patient Education Patient Instructions Indication:Nonsmoker Start:11-Jul-2021 Instruction Type:Provider Instructions for Treatment How to Access Health Informa tion Online using Patient Portal and [employer]rd [employer] Apps Indication:Nonsmoker Start:11-Jul-2021 Instruction Type:Patient Education Patient Instructions Indication:Nonsmoker Start:16-May-2021 Instruction Type:Provider Instructions for Treatment How to Access Health Informa tion Online using Patient Portal and [employer]rd [employer] Apps Indication:Nonsmoker Start:16-May-2021 Instruction Type:Patient Education [facility]; [facility] Work Phone: Instructions* Name Dates Details Patient Instructions Indication:Hyperlipidemia Start:12-Nov-2022 Instruction Type:Provider Instructions for Treatment How to Access Health Informa tion Online using Patient Portal and [employer]rd [employer] Apps Indication:Hyperlipidemia Start:12-Nov-2022 Instruction Type:Patient Education Patient Instructions Indication:Nonsmoker Start:30-Jul-2022 Instruction Type:Provider Instructions for Treatment How to Access Health Informa tion Online using Patient Portal and [employer]rd [employer] Apps Indication:Nonsmoker Start:30-Jul-2022 Instruction Type:Patient Education Patient Instructions 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 Start:27-May-2022 Instruction Type:Provider Instructions for Treatment Patient Instructions Indication:Nonsmoker Start:23-Mar-2022 Instruction Type:Provider Instructions for Treatment How to Access Health Informa tion Online using Patient Portal and [employer]rd [employer] Apps Indication:Nonsmoker Start:23-Mar-2022 Instruction Type:Patient Education Patient Instructions Indication:Anxiety Start:24-Jan-2022 Instruction Type:Provider Instructions for Treatment How to Access Health Informa tion Online using Patient Portal and [employer]rd [employer] Apps Indication:Anxiety Start:24-Jan-2022 Instruction Type:Patient Education Patient Instructions Indication:Hyperlipidemia Start:25-Oct-2021 Instruction Type:Provider Instructions for Treatment How to Access Health Informa tion Online using Patient Portal and [employer]rd [employer] Apps Indication:Hyperlipidemia Start:25-Oct-2021 Instruction Type:Patient Education Patient Instructions Indication:Nonsmoker Start:11-Jul-2021 Instruction Type:Provider Instructions for Treatment How to Access Health Informa tion Online using Patient Portal and [employer]rd [employer] Apps Indication:Nonsmoker Start:11-Jul-2021 Instruction Type:Patient Education Patient Instructions Indication:Nonsmoker Start:16-May-2021 Instruction Type:Provider Instructions for Treatment How to Access Health Informa tion Online using Patient Portal and [employer]rd [employer] Apps Indication:Nonsmoker Start:16-May-2021 Instruction Type:Patient Education [facility]; [facility] Work Phone: Instructions* Name Dates Details Patient Instructions Indication:Hyperlipidemia Start:12-Nov-2022 Instruction Type:Provider Instructions for Treatment How to Access Health Informa tion Online using Patient Portal and [employer]rd [employer] Apps Indication:Hyperlipidemia Start:12-Nov-2022 Instruction Type:Patient Education Patient Instructions Indication:Nonsmoker Start:30-Jul-2022 Instruction Type:Provider Instructions for Treatment How to Access Health Informa tion Online using Patient Portal and [employer]rd [employer] Apps Indication:Nonsmoker Start:30-Jul-2022 Instruction Type:Patient Education Patient Instructions 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 Start:27-May-2022 Instruction Type:Provider Instructions for Treatment Patient Instructions Indication:Nonsmoker Start:23-Mar-2022 Instruction Type:Provider Instructions for Treatment How to Access Health Informa tion Online using Patient Portal and [employer] Apps Indication:Nonsmoker Start:23-Mar-2022 Instruction Type:Patient Education Patient Instructions Indication:Anxiety Start:24-Jan-2022 Instruction Type:Provider Instructions for Treatment How to Access Health Informa tion Online using Patient Portal and [employer]rd [employer] Apps Indication:Anxiety Start:24-Jan-2022 Instruction Type:Patient Education Patient Instructions Indication:Hyperlipidemia Start:25-Oct-2021 Instruction Type:Provider Instructions for Treatment How to Access Health Informa tion Online using Patient Portal and [employer] Apps Indication:Hyperlipidemia Start:25-Oct-2021 Instruction Type:Patient Education Patient Instructions Indication:Nonsmoker Start:11-Jul-2021 Instruction Type:Provider Instructions for Treatment How to Access Health Informa tion Online using Patient Portal and [employer]rd [employer] Apps Indication:Nonsmoker Start:11-Jul-2021 Instruction Type:Patient Education Patient Instructions Indication:Nonsmoker Start:16-May-2021 Instruction Type:Provider Instructions for Treatment How to Access Health Informa tion Online using Patient Portal and [employer]rd [employer] Apps Indication:Nonsmoker Start:16-May-2021 Instruction Type:Patient Education [facility]; [facility] Work Phone: Instructions* Name Dates Details Patient Instructions Indication:Hypertension Start:25-Feb-2023 Instruction Type:Provider Instructions for Treatment How to Access Health Informa tion Online using Patient Portal and [employer] Apps Indication:Hypertension Start:25-Feb-2023 Instruction Type:Patient Education Patient Instructions Indication:Hyperlipidemia Start:12-Nov-2022 Instruction Type:Provider Instructions for Treatment How to Access Health Informa tion Online using Patient Portal and [employer] Apps Indication:Hyperlipidemia Start:12-Nov-2022 Instruction Type:Patient Education Patient Instructions Indication:Nonsmoker Start:30-Jul-2022 Instruction Type:Provider Instructions for Treatment How to Access Health Informa tion Online using Patient Portal and [employer]rd [employer] Apps Indication:Nonsmoker Start:30-Jul-2022 Instruction Type:Patient Education Patient Instructions 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 Start:27-May-2022 Instruction Type:Provider Instructions for Treatment Patient Instructions Indication:Nonsmoker Start:23-Mar-2022 Instruction Type:Provider Instructions for Treatment How to Access Health Informa tion Online using Patient Portal and [employer]rd [employer] Apps Indication:Nonsmoker Start:23-Mar-2022 Instruction Type:Patient Education Patient Instructions Indication:Anxiety Start:24-Jan-2022 Instruction Type:Provider Instructions for Treatment How to Access Health Informa tion Online using Patient Portal and [employer]rd [employer] Apps Indication:Anxiety Start:24-Jan-2022 Instruction Type:Patient Education Patient Instructions Indication:Hyperlipidemia Start:25-Oct-2021 Instruction Type:Provider Instructions for Treatment How to Access Health Informa tion Online using Patient Portal and [employer]rd [employer] Apps Indication:Hyperlipidemia Start:25-Oct-2021 Instruction Type:Patient Education Patient Instructions Indication:Nonsmoker Start:11-Jul-2021 Instruction Type:Provider Instructions for Treatment How to Access Health Informa tion Online using Patient Portal and [employer]rd [employer] Apps Indication:Nonsmoker Start:11-Jul-2021 Instruction Type:Patient Education Patient Instructions Indication:Nonsmoker Start:16-May-2021 Instruction Type:Provider Instructions for Treatment How to Access Health Informa tion Online using Patient Portal and [employer]rd [employer] Apps Indication:Nonsmoker Start:16-May-2021 Instruction Type:Patient Education [facility]; [facility] Work Phone: Instructions* Name Dates Details Patient Instructions Indication:Hypertension Start:25-Feb-2023 Instruction Type:Provider Instructions for Treatment How to Access Health Informa tion Online using Patient Portal and [employer]rd [employer] Apps Indication:Hypertension Start:25-Feb-2023 Instruction Type:Patient Education Patient Instructions Indication:Hyperlipidemia Start:12-Nov-2022 Instruction Type:Provider Instructions for Treatment How to Access Health Informa tion Online using Patient Portal and [employer] Apps Indication:Hyperlipidemia Start:12-Nov-2022 Instruction Type:Patient Education Patient Instructions Indication:Nonsmoker Start:30-Jul-2022 Instruction Type:Provider Instructions for Treatment How to Access Health Informa tion Online using Patient Portal and [employer] Apps Indication:Nonsmoker Start:30-Jul-2022 Instruction Type:Patient Education Patient Instructions 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 Start:27-May-2022 Instruction Type:Provider Instructions for Treatment Patient Instructions Indication:Nonsmoker Start:23-Mar-2022 Instruction Type:Provider Instructions for Treatment How to Access Health Informa tion Online using Patient Portal and [employer] Apps Indication:Nonsmoker Start:23-Mar-2022 Instruction Type:Patient Education Patient Instructions Indication:Anxiety Start:24-Jan-2022 Instruction Type:Provider Instructions for Treatment How to Access Health Informa tion Online using Patient Portal and [employer] Apps Indication:Anxiety Start:24-Jan-2022 Instruction Type:Patient Education Patient Instructions Indication:Hyperlipidemia Start:25-Oct-2021 Instruction Type:Provider Instructions for Treatment How to Access Health Informa tion Online using Patient Portal and [employer] Apps Indication:Hyperlipidemia Start:25-Oct-2021 Instruction Type:Patient Education Patient Instructions Indication:Nonsmoker Start:11-Jul-2021 Instruction Type:Provider Instructions for Treatment How to Access Health Informa tion Online using Patient Portal and [employer] Apps Indication:Nonsmoker Start:11-Jul-2021 Instruction Type:Patient Education Patient Instructions Indication:Nonsmoker Start:16-May-2021 Instruction Type:Provider Instructions for Treatment How to Access Health Informa tion Online using Patient Portal and [employer] Apps Indication:Nonsmoker Start:16-May-2021 Instruction Type:Patient Education [facility]; [facility] Work Phone: Instructions* Name Dates Details Patient Instructions Indication:Bilateral leg edema Start:03-Jun-2023 Instruction Type:Provider Instructions for Treatment How to Access Health Informa tion Online using Patient Portal and [employer]rd [employer] Apps Indication:Bilateral leg edema Start:03-Jun-2023 Instruction Type:Patient Education Patient Instructions Indication:Hypertension Start:25-Feb-2023 Instruction Type:Provider Instructions for Treatment How to Access Health Informa tion Online using Patient Portal and [employer]rd [employer] Apps Indication:Hypertension Start:25-Feb-2023 Instruction Type:Patient Education Patient Instructions Indication:Hyperlipidemia Start:12-Nov-2022 Instruction Type:Provider Instructions for Treatment How to Access Health Informa tion Online using Patient Portal and [employer] Apps Indication:Hyperlipidemia Start:12-Nov-2022 Instruction Type:Patient Education Patient Instructions Indication:Nonsmoker Start:30-Jul-2022 Instruction Type:Provider Instructions for Treatment How to Access Health Informa tion Online using Patient Portal and [employer] Apps Indication:Nonsmoker Start:30-Jul-2022 Instruction Type:Patient Education Patient Instructions 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 Start:27-May-2022 Instruction Type:Provider Instructions for Treatment Patient Instructions Indication:Nonsmoker Start:23-Mar-2022 Instruction Type:Provider Instructions for Treatment How to Access Health Informa tion Online using Patient Portal and [employer] Apps Indication:Nonsmoker Start:23-Mar-2022 Instruction Type:Patient Education Patient Instructions Indication:Anxiety Start:24-Jan-2022 Instruction Type:Provider Instructions for Treatment How to Access Health Informa tion Online using Patient Portal and [employer] Apps Indication:Anxiety Start:24-Jan-2022 Instruction Type:Patient Education Patient Instructions Indication:Hyperlipidemia Start:25-Oct-2021 Instruction Type:Provider Instructions for Treatment How to Access Health Informa tion Online using Patient Portal and [employer] Apps Indication:Hyperlipidemia Start:25-Oct-2021 Instruction Type:Patient Education Patient Instructions Indication:Nonsmoker Start:11-Jul-2021 Instruction Type:Provider Instructions for Treatment How to Access Health Informa tion Online using Patient Portal and [employer] Apps Indication:Nonsmoker Start:11-Jul-2021 Instruction Type:Patient Education Patient Instructions Indication:Nonsmoker Start:16-May-2021 Instruction Type:Provider Instructions for Treatment How to Access Health Informa tion Online using Patient Portal and [employer] Apps Indication:Nonsmoker Start:16-May-2021 Instruction Type:Patient Education [facility]; [facility] Work Phone: Instructions* Name Dates Details Patient Instructions Indication:Bilateral leg edema Start:03-Jun-2023 Instruction Type:Provider Instructions for Treatment How to Access Health Informa tion Online using Patient Portal and [employer] Apps Indication:Bilateral leg edema Start:03-Jun-2023 Instruction Type:Patient Education Patient Instructions Indication:Hypertension Start:25-Feb-2023 Instruction Type:Provider Instructions for Treatment How to Access Health Informa tion Online using Patient Portal and [employer]rd [employer] Apps Indication:Hypertension Start:25-Feb-2023 Instruction Type:Patient Education Patient Instructions Indication:Hyperlipidemia Start:12-Nov-2022 Instruction Type:Provider Instructions for Treatment How to Access Health Informa tion Online using Patient Portal and [employer] Apps Indication:Hyperlipidemia Start:12-Nov-2022 Instruction Type:Patient Education Patient Instructions Indication:Nonsmoker Start:30-Jul-2022 Instruction Type:Provider Instructions for Treatment How to Access Health Informa tion Online using Patient Portal and [employer]rd [employer] Apps Indication:Nonsmoker Start:30-Jul-2022 Instruction Type:Patient Education Patient Instructions 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 Start:27-May-2022 Instruction Type:Provider Instructions for Treatment Patient Instructions Indication:Nonsmoker Start:23-Mar-2022 Instruction Type:Provider Instructions for Treatment How to Access Health Informa tion Online using Patient Portal and [employer]rd [employer] Apps Indication:Nonsmoker Start:23-Mar-2022 Instruction Type:Patient Education Patient Instructions Indication:Anxiety Start:24-Jan-2022 Instruction Type:Provider Instructions for Treatment How to Access Health Informa tion Online using Patient Portal and [employer]rd [employer] Apps Indication:Anxiety Start:24-Jan-2022 Instruction Type:Patient Education Patient Instructions Indication:Hyperlipidemia Start:25-Oct-2021 Instruction Type:Provider Instructions for Treatment How to Access Health Informa tion Online using Patient Portal and [employer]rd [employer] Apps Indication:Hyperlipidemia Start:25-Oct-2021 Instruction Type:Patient Education Patient Instructions Indication:Nonsmoker Start:11-Jul-2021 Instruction Type:Provider Instructions for Treatment How to Access Health Informa tion Online using Patient Portal and [employer]rd [employer] Apps Indication:Nonsmoker Start:11-Jul-2021 Instruction Type:Patient Education Patient Instructions Indication:Nonsmoker Start:16-May-2021 Instruction Type:Provider Instructions for Treatment How to Access Health Informa tion Online using Patient Portal and 3rd [employer] Apps Indication:Nonsmoker Start:16-May-2021 Instruction Type:Patient Education [facility]; [facility] Work Phone: Instructions* Name Dates Details Patient Instructions Indication:Bilateral leg edema Start:03-Jun-2023 Instruction Type:Provider Instructions for Treatment How to Access Health Informa tion Online using Patient Portal and [employer] Apps Indication:Bilateral leg edema Start:03-Jun-2023 Instruction Type:Patient Education Patient Instructions Indication:Hypertension Start:25-Feb-2023 Instruction Type:Provider Instructions for Treatment How to Access Health Informa tion Online using Patient Portal and [employer]rd [employer] Apps Indication:Hypertension Start:25-Feb-2023 Instruction Type:Patient Education Patient Instructions Indication:Hyperlipidemia Start:12-Nov-2022 Instruction Type:Provider Instructions for Treatment How to Access Health Informa tion Online using Patient Portal and [employer]rd [employer] Apps Indication:Hyperlipidemia Start:12-Nov-2022 Instruction Type:Patient Education Patient Instructions Indication:Nonsmoker Start:30-Jul-2022 Instruction Type:Provider Instructions for Treatment How to Access Health Informa tion Online using Patient Portal and [employer]rd [employer] Apps Indication:Nonsmoker Start:30-Jul-2022 Instruction Type:Patient Education Patient Instructions 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 Start:27-May-2022 Instruction Type:Provider Instructions for Treatment Patient Instructions Indication:Nonsmoker Start:23-Mar-2022 Instruction Type:Provider Instructions for Treatment How to Access Health Informa tion Online using Patient Portal and [employer]rd [employer] Apps Indication:Nonsmoker Start:23-Mar-2022 Instruction Type:Patient Education Patient Instructions Indication:Anxiety Start:24-Jan-2022 Instruction Type:Provider Instructions for Treatment How to Access Health Informa tion Online using Patient Portal and [employer]rd Republican Apps Indication:Anxiety Start:24-Jan-2022 Instruction Type:Patient Education Patient Instructions Indication:Hyperlipidemia Start:25-Oct-2021 Instruction Type:Provider Instructions for Treatment How to Access Health Informa tion Online using Patient Portal and 3rd Republican Apps Indication:Hyperlipidemia Start:25-Oct-2021 Instruction Type:Patient Education Patient Instructions Indication:Nonsmoker Start:11-Jul-2021 Instruction Type:Provider Instructions for Treatment How to Access Health Informa tion Online using Patient Portal and 3rd Republican Apps Indication:Nonsmoker Start:11-Jul-2021 Instruction Type:Patient Education Patient Instructions Indication:Nonsmoker Start:16-May-2021 Instruction Type:Provider Instructions for Treatment How to Access Health Informa tion Online using Patient Portal and [employer]rd [employer] Apps Indication:Nonsmoker Start:16-May-2021 Instruction Type:Patient Education [facility]; [facility] Work Phone: Instructions* Name Dates Details Patient Instructions Indication:Bilateral leg edema Start:03-Jun-2023 Instruction Type:Provider Instructions for Treatment How to Access Health Informa tion Online using Patient Portal and [employer] Apps Indication:Bilateral leg edema Start:03-Jun-2023 Instruction Type:Patient Education Patient Instructions Indication:Hypertension Start:25-Feb-2023 Instruction Type:Provider Instructions for Treatment How to Access Health Informa tion Online using Patient Portal and [employer]rd Republican Apps Indication:Hypertension Start:25-Feb-2023 Instruction Type:Patient Education Patient Instructions Indication:Hyperlipidemia Start:12-Nov-2022 Instruction Type:Provider Instructions for Treatment How to Access Health Informa tion Online using Patient Portal and [employer] Apps Indication:Hyperlipidemia Start:12-Nov-2022 Instruction Type:Patient Education Patient Instructions Indication:Nonsmoker Start:30-Jul-2022 Instruction Type:Provider Instructions for Treatment How to Access Health Informa tion Online using Patient Portal and 3rd Republican Apps Indication:Nonsmoker Start:30-Jul-2022 Instruction Type:Patient Education Patient Instructions 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 Start:27-May-2022 Instruction Type:Provider Instructions for Treatment Patient Instructions Indication:Nonsmoker Start:23-Mar-2022 Instruction Type:Provider Instructions for Treatment How to Access Health Informa tion Online using Patient Portal and [employer] Apps Indication:Nonsmoker Start:23-Mar-2022 Instruction Type:Patient Education Patient Instructions Indication:Anxiety Start:24-Jan-2022 Instruction Type:Provider Instructions for Treatment How to Access Health Informa tion Online using Patient Portal and 3rd [employer] Apps Indication:Anxiety Start:24-Jan-2022 Instruction Type:Patient Education Patient Instructions Indication:Hyperlipidemia Start:25-Oct-2021 Instruction Type:Provider Instructions for Treatment How to Access Health Informa tion Online using Patient Portal and [employer]rd [employer] Apps Indication:Hyperlipidemia Start:25-Oct-2021 Instruction Type:Patient Education Patient Instructions Indication:Nonsmoker Start:11-Jul-2021 Instruction Type:Provider Instructions for Treatment How to Access Health Informa tion Online using Patient Portal and [employer]rd [employer] Apps Indication:Nonsmoker Start:11-Jul-2021 Instruction Type:Patient Education Patient Instructions Indication:Nonsmoker Start:16-May-2021 Instruction Type:Provider Instructions for Treatment How to Access Health Informa tion Online using Patient Portal and [employer] Apps Indication:Nonsmoker Start:16-May-2021 Instruction Type:Patient Education [facility]; [facility] Work Phone: Instructions* Name Dates Details Patient Instructions Indication:Bilateral leg edema Start:03-Jun-2023 Instruction Type:Provider Instructions for Treatment How to Access Health Informa tion Online using Patient Portal and [employer] Apps Indication:Bilateral leg edema Start:03-Jun-2023 Instruction Type:Patient Education Patient Instructions Indication:Hypertension Start:25-Feb-2023 Instruction Type:Provider Instructions for Treatment How to Access Health Informa tion Online using Patient Portal and [employer]rd [employer] Apps Indication:Hypertension Start:25-Feb-2023 Instruction Type:Patient Education Patient Instructions Indication:Hyperlipidemia Start:12-Nov-2022 Instruction Type:Provider Instructions for Treatment How to Access Health Informa tion Online using Patient Portal and [employer] Apps Indication:Hyperlipidemia Start:12-Nov-2022 Instruction Type:Patient Education Patient Instructions Indication:Nonsmoker Start:30-Jul-2022 Instruction Type:Provider Instructions for Treatment How to Access Health Informa tion Online using Patient Portal and [employer] Indication:Nonsmoker Start:30-Jul-2022 Instruction Type:Patient Education Patient Instructions 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 Start:27-May-2022 Instruction Type:Provider Instructions for Treatment Patient Instructions Indication:Nonsmoker Start:23-Mar-2022 Instruction Type:Provider Instructions for Treatment How to Access Health Informa tion Online using Patient Portal and [employer] Indication:Nonsmoker Start:23-Mar-2022 Instruction Type:Patient Education Patient Instructions Indication:Anxiety Start:24-Jan-2022 Instruction Type:Provider Instructions for Treatment How to Access Health Informa tion Online using Patient Portal and [employer] Indication:Anxiety Start:24-Jan-2022 Instruction Type:Patient Education Patient Instructions Indication:Hyperlipidemia Start:25-Oct-2021 Instruction Type:Provider Instructions for Treatment How to Access Health Informa tion Online using Patient Portal and [employer] Indication:Hyperlipidemia Start:25-Oct-2021 Instruction Type:Patient Education Patient Instructions Indication:Nonsmoker Start:11-Jul-2021 Instruction Type:Provider Instructions for Treatment How to Access Health Informa tion Online using Patient Portal and [employer] Indication:Nonsmoker Start:11-Jul-2021 Instruction Type:Patient Education Patient Instructions Indication:Nonsmoker Start:16-May-2021 Instruction Type:Provider Instructions for Treatment How to Access Health Informa tion Online using Patient Portal and [employer] Indication:Nonsmoker Start:16-May-2021 Instruction Type:Patient Education [facility]; [facility] Work Phone: reason for referral (narrative)No reason for referral information [facility]: Summary Purpose Family History No Family History Records FoundUnknown Family Member Name Dates Details Brother 1 [...] no major health issues Status:Active Father Comments:Shi Wharton htn o ld age - history of colon cancer in his 40s Status:Active Mother Comments: - htn radha st cancer- Status:Active Unknown Family Member Name Dates Details Brother 1 Comments: in 60s wit h lewy body disease Status:Active Brother 2 Comments:living and 18 years younger - no major health issues Status:Active Father Comments:Shi Wharton htn o ld age - history of [...] Comments: - htn radha st cancer- Status:Active Relationship Condition Age at Onset Recorded Date/T tong father Malignant neoplasm Unknown mother Coronary artery disease Unknown Hypertension Unknown Unknown Family Member Name Dates Details Brother 1 Comments: in 60s wit h lewy body disease Status:Active Brother 2 Comments:living and 18 years younger - no major health issues Status:Active Father Comments:Sih Bowles- htn o ld age - history [...] Comments: - htn radha st cancer- Status:Active Relationship Condition Age at Onset Recorded Date/T tong father Malignant neoplasm Unknown Malignant neoplasm of colon Unknown mother Coronary artery disease Unknown Hypertension Unknown Malignant neoplasm of breast Unknown Advance Directives No Advanced Directives Records Found Name Dates Details Immunization Registry [place] - Effective on 07/12/2021. Expiration date unspecified Effective:12-Jul-2021 Name Dates Details Immunization Registry [place] - Effective on 07/12/2021. Expiration date unspecified Effective:12-Jul-2021 Name Dates Details Immunization Registry [place] - Effective on 07/12/2021. Expiration date unspecified Effective:12-Jul-2021 Name Dates Details Living Will - Effective on . Expiration date unspecified. Scanned Document is available upon request. Effective:30-Oct-2021 Immunization Registry [place] - Effective on 07/12/2021. Expiration date unspecified Effective:12-Jul-2021 Name Dates Details Living Will - Effective on . Expiration date unspecified. Scanned Document is available upon request. Effective:30-Oct-2021 Immunization Registry [place] - Effective on 07/12/2021. Expiration date unspecified Effective:12-Jul-2021 Advance Directive Response Recorded Date/ Time Advance Directives Yes May 12:05pm Living Will Yes January 08, 2022 11 :20am Power of Elementary Educator Yes January 08, 2022 11:20am Name Dates Details Living Will - Effective on . Expiration date unspecified. Scanned Document is available upon request. Effective:30-Oct-2021 Immunization Registry [place] - Effective on 07/12/2021. Expiration date unspecified Effective:12-Jul-2021 Name Dates Details Living Will - Effective on . Expiration date unspecified. Scanned Document is available upon request. Effective:30-Oct-2021 Immunization Registry [place] - Effective on 07/12/2021. Expiration date unspecified Effective:12-Jul-2021 Name Dates Details Living Will - Effective on . Expiration date unspecified. Scanned Document is available upon request. Effective:30-Oct-2021 Immunization Registry [place] - Effective on 07/12/2021. Expiration date unspecified Effective:12-Jul-2021 Name Dates Details Living Will - Effective on . Expiration date unspecified. Scanned Document is available upon request. Effective:30-Oct-2021 Immunization Registry [place] - Effective on 07/12/2021. Expiration date unspecified Effective:12-Jul-2021 Name Dates Details Living Will - Effective on . Expiration date unspecified. Scanned Document is available upon request. Effective:30-Oct-2021 Immunization Registry [place] - Effective on 07/12/2021. Expiration date unspecified Effective:12-Jul-2021 Name Dates Details Living Will - Effective on . Expiration date unspecified. Scanned Document is available upon request. Effective:30-Oct-2021 Immunization Registry [place] - Effective on 07/12/2021. Expiration date unspecified Effective:12-Jul-2021 Name Dates Details Living Will - Effective on . Expiration date unspecified. Scanned Document is available upon request. Effective:30-Oct-2021 Immunization Registry [place] - Effective on 07/12/2021. 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 Expiration date unspecified. Scanned Document is available upon request. Effective:30-Oct-2021 Immunization Registry [place] - Effective on 07/12/2021. Expiration date unspecified Effective:12-Jul-2021 Name Dates Details Living Will - Effective on . Expiration date unspecified. Scanned Document is available upon request. Effective:30-Oct-2021 Immunization Registry [place] - Effective on 07/12/2021. Expiration date unspecified Effective:12-Jul-2021 Name Dates Details Living Will - Effective on . Expiration date unspecified. Scanned Document is available upon request. Effective:30-Oct-2021 Immunization Registry [place] - Effective on 07/12/2021. Expiration date unspecified Effective:12-Jul-2021 Name Dates Details Living Will - Effective on . Expiration date unspecified. Scanned Document is available upon request. Effective:30-Oct-2021 Immunization Registry [place] - Effective on 07/12/2021. Expiration date unspecified Effective:12-Jul-2021 Name Dates Details Living Will - Effective on . Expiration date unspecified. Scanned Document is available upon request. Effective:30-Oct-2021 Immunization Registry [place] - Effective on 07/12/2021. Expiration date unspecified Effective:12-Jul-2021 Name Dates Details Living Will - Effective on . Expiration date unspecified. Scanned Document is available upon request. Effective:30-Oct-2021 Immunization Registry [place] - Effective on 07/12/2021. Expiration date unspecified Effective:12-Jul-2021 Advance Directive Response Recorded Date/ Time Advance Directives on File Yes December 03, 2022 10:08am Name of Medical Power of Elementary Educator Venecia Aburto- December 03, 2022 10:08am Advance Directives Yes December 03, 2 023 10:08am Living Will Yes December 03, 2022 10:08am Power of Elementary Educator Yes December 03 10:08am Name Dates Details Living Will - Effective on . Expiration date unspecified. Scanned Document is available upon request. Effective:30-Oct-2021 Immunization Registry [place] - Effective on 07/12/2021. Expiration date unspecified Effective:12-Jul-2021 Advance Directive Response Recorded Date/ Time Advance Directives on File Yes December 03, 2022 10:08am Name of Medical Power of Elementary Educator Venecia Aburto- December 03, 2022 10:08am Name of Medical Power of Elementary Educator IRMA NAIR February 12, 2023 8:23am Advance Directives Yes December 03, 2 023 10:08am Living Will Yes February 12, 2023 8 :23am Power of Elementary Educator Yes February 12, 2023 8:23am Name Dates Details Living Will - Effective on . Expiration date unspecified. Scanned Document is available upon request. Effective:30-Oct-2021 Immunization Registry [place] - Effective on 07/12/2021. Expiration date unspecified Effective:12-Jul-2021 Name Dates Details Living Will - Effective on . Expiration date unspecified. Scanned Document is available upon request. Effective:30-Oct-2021 Immunization Registry [place] - Effective on 07/12/2021. Expiration date unspecified Effective:12-Jul-2021 Name Dates Details Living Will - Effective on . Expiration date unspecified. Scanned Document is available upon request. Effective:30-Oct-2021 Immunization Registry [place] - Effective on 07/12/2021. Expiration date unspecified Effective:12-Jul-2021 Advance Directive Response Recorded Date/ Time Name of Medical Power of Elementary Educator IRMA RICHARD February 12, 2023 8:23am Advance Directives Yes December 03, 2 023 10:08am Living Will Yes February 12, 2023 8 :23am Power of Elementary Educator Yes February 12, 2023 8:23am Name Dates Details Living Will - Effective on . Expiration date unspecified. Scanned Document is available upon request. Effective:30-Oct-2021 Immunization Registry [place] - Effective on 07/12/2021. Expiration date unspecified Effective:12-Jul-2021 Name Dates Details Living Will - Effective on . Expiration date unspecified. Scanned Document is available upon request. Effective:30-Oct-2021 Immunization Registry [place] - Effective on 07/12/2021. Expiration date unspecified Effective:12-Jul-2021 Advance Directive Response Recorded Date/ Time Advance Directives Yes December 03, 2 023 9:08am Living Will Yes February 12, 2023 7 :23am Power of Elementary Educator Yes February 12, 2023 7:23am Advance Directive Response Recorded Date/ Time Advance Directives Yes December 03, 2 023 10:08am Living Will Yes February 12, 2023 8 :23am Power of Elementary Educator Yes February 12, 2023 8:23am Advance Directive Response Recorded Date/ Time Advance Directives Yes December 03, 2 023 10:08am Advance Directive Response Recorded Date/ Time Living Will Yes February 12, 2023 8 :23am Do you have a Healthcare Power of Elementary Educator? Yes February 12, 2023 8:23am Advance Directives Yes December 03, 2 023 10:08am Chief Complaint and Reason for Visit Chief Complaint 1 Y FU COLON POLYPS Reason for Visit Essential (primary) hypertension Hyperlipidemia GERD (gastroesophageal reflux disease) Hx of colonic polyp Chief Complaint 2 WK FU ABNORMAL BREAST EXAM Reason for Visit Onofre esophagus Gastritis GERD (gastroesophageal reflux disease) Hx of colonic polyp Chief Complaint 2 WK FU ABNORMAL BREAST EXAM WAS TO FAX ORDER 05/08/22 Reason for Visit Onofre esophagus Gastritis GERD (gastroesophageal reflux disease) Hx of colonic polyp Chief Complaint FLANK PAIN 1 Y FU Blood Flow Screening - Dionte HYPERLIPIDEMIA HYPERLIPIDEMIA ABN CALCUIM SCORE ABN CALCUIM SCORE ABN CALCUIM SCORE Reason for Visit Essential (primary) hypertension Hyperlipidemia Abnormal cardiac CT angiography Essential (primary) hypertension Hyperlipidemia Chief Complaint 1 Y FU Blood Flow Screening - Dionte HYPERLIPIDEMIA HYPERLIPIDEMIA ABN CALCUIM SCORE ABN CALCUIM SCORE ABN CALCUIM SCORE 1 YR FU Reason for Visit Essential (primary) hypertension Hyperlipidemia Abnormal cardiac CT angiography Essential (primary) hypertension Hyperlipidemia Onofre esophagus Chief Complaint HYPERLIPIDEMIA HYPERLIPIDEMIA ABN CALCUIM SCORE ABN CALCUIM SCORE ABN CALCUIM SCORE 1 YR FU 2 WK FU Reason for Visit Abnormal cardiac CT angiography Essential (primary) hypertension Hyperlipidemia Onofre esophagus Onofre esophagus Chief Complaint 2 WK FU Reason for Visit Onofre esophagus Chief Complaint EDEMA LEFT BREAST LUMP BIRADS 4 LEFT BREST BIOPSY Reason for Visit Left breast mass Chief Complaint 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 Reason for Visit Essential (primary) hypertension Hyperlipidemia Chief Complaint Admit Date Gastroesophageal reflux disease (GERD) J anuary 2024 1:53pm Gastroesophageal reflux disease (GERD) A pril 2024 8:26am Reason for Visit Admit Date Onofre esophagus October 01, 2024 1 :53pm Gastroesophageal reflux disease October 01, 2024 1:53pm Onofre esophagus December 17, 2024 8:2 6am Gastroesophageal reflux disease December 172024 8:26am Chief Complaint Admit Date Gastroesophageal reflux disease (GERD) J anuary 2024 1:53pm Gastroesophageal reflux disease (GERD) A pril 2024 8:26am 1 Y FU January 26, 2025 12:54 pm Additional Source Comments (unrecognized sect ion and content) No Status Records FoundNo Status Records FoundNo Status Records FoundNo Status Records FoundNo Status Records Found INFORMATION SOURCE (unrecogn ized section and content) DATE CREATED AUTHOR 03/05/2018 [facility] DATE CREATED AUTHOR AUTHOR'S ORGANIZ ATION 03/05/2018 [facility] DATE CREATED AUTHOR AUTHOR'S ORGANIZ ATION 04/20/2022 [facility] DATE CREATED AUTHOR AUTHOR'S ORGANIZ ATION 11/14/2022 [facility] DATE CREATED AUTHOR AUTHOR'S ORGANIZ ATION 02/28/2025 [facility] Goals (unrecognized section and content) Goals may be documented in a n alternate sectionGoals may be documented in an alternate sectionGoals may be documented in an alternate sectionGoals may be documented in an alternate sectionGoals may be documented in an alternate sectionGoals may be documented in an alternate sectionGoals may be documented in an alternate sectionGoals may be documented in an alternate section Source Comments (unrecognize d section and content) In the event this informatio n is protected by the Federal Confidentiality of Alcohol and Drug Abuse Patient Records regulations: The Federal rules restrict any use of the information to criminally investigate or prosecute any alcohol or drug abuse patient.[facility] the event this information is protected by the Federal Confidentiality of Alcohol and Drug Abuse Patient Records regulations: The Federal rules restrict any use of the information to criminally investigate or prosecute any alcohol or drug abuse patient.[facility] Reason for Visit (unrecogniz ed section and content) Reason Comments Consult right breast Reason Comments Procedure Right Breast Biopsy Care Teams (unrecognized sec tion and content) Tree Inspector Relationship Specialty Start Date End Date Francheska Alonzo DO [address] [facility] [address] [place] [address] PCP - General Internal Medicine 03/27/22 Tree Inspector Relationship Specialty Start Date End Date Francheska Alonzo DO [address] [facility] [address] [place] [address] PCP - General Internal Medicine 03/27/22 Team Status: Active Member Role Status Dates Spike ALEMAN Family Provider Active Dr. Francheska Alonzo DO Primary Care Provider Active Team Status: Inactive Member Role Status Dates Dr. Francheska Alonzo DO Primary Care Provider, Referring Ronal napoles Active Dr. Petros Valdez MD Attending Provider Active Team Status: Active Member Role Status Dates Dr. Francheska Alonzo DO Primary Care Provider Active Dr. Antonio Hernandez MD Attending Provider Active Team Status: Active Member Role Status Dates Dr. Francheska Fast , DO Primary Care Provider Active Dr. Petros Valdez MD Attending Provider, Other Provide r Active Team Status: Active Member Role Status Dates Dr. Francheska Alonzo , DO Primary Care Provider Active Dr. Petros Valdez MD Referring Provider, Other Provide r Active Tea Hart PA, PA Attending Provider Active Team Status: Active Member Role Status Dates Dr. Francheska Alonzo , DO Primary Care Provider Active Dr. Petros Valdez MD Referring Provider, Other Provide r Active Dr. Sd Kirk MD Attending Provider Activ e Team Status: Inactive Member Role Status Dates Dr. Francheska Alonzo , DO Primary Care Provide r, Attending Provider, Referring Provider Active Team Status: Active Member Role Status Dates Dr. Francheska Alonzo , DO Primary Care Provider Active Dr. Petros Valdez MD Attending Provider Active Team Status: Inactive Member Role Status Dates Dr. Francheska Alonzo , DO Primary Care Provider Active Dr. Petros Valdez MD Attending Provider, Referring Pro vider Active Team Status: Inactive Member Role Status Dates Dr. Francheska Alonzo DO Primary Care Provider Active Dr. Petros Valdez MD Attending Provider Active Team Status: Inactive Member Role Status Dates Dr. Francheska Alonzo , DO Primary Care Provider, Referring P rovider Active Alicia Garrido WASHERY ENGINEER, WASHERY ENGINEER-C Attending Provider Active Team Status: Active Member Role Status Dates Dr. Francheska Alonzo , DO Primary Care Provider, Referring P rovider Active Dr. David Parra , DO Attending Provider, Other Prov ider Active Team Status: Inactive Member Role Status Dates Dr. Francheska Alonzo , DO Primary Care Provider, Referring P rovider Active Dr. Dvaid Parra , DO Attending Provider Active Team Status: Active Member Role Status Dates Dr. Francheska Alonzo , DO Primary Care Provider, Referring P rovider Active Dr. Michele Hodgson MD Attending Provider Active Team Status: Inactive Member Role Status Dates Dr. Francheska Alonzo DO Primary Care Provider, Referring P rovider Active Dr. Durga Pierson MD Attending Provider Active Team Status: Inactive Member Role Status Dates Dr. Francheska Alonzo DO Primary Care Provider Active Dr. Durga Pierson MD Attending Provider Active Team Status: Active Member Role Status Dates Dr. Francheska Alonzo , DO Primary Care Provider Active Team Status: Inactive Member Role Status Dates Dr. Francheska Alonzo DO Primary Care Provider Active Start: October 01, 2024 End: October 01, 2024 Dr. Francheska Alonzo DO Referring Provider Active St art: October 01, 2024 End: October 01, 2024 Dr. David Parra DO Attending Provider Active Start: October 01, 2024 End: October 01, 2024 Team Status: Inactive Member Role Status Dates Dr. Francheska Alonzo DO Primary Care Provider Active Start: December 17, 2024 End: December 17, 2024 Dr. Francheska Alonzo DO Referring Provider Active St art: December 17, 2024 End: December 17, 2024 Dr. David Parra DO Attending Provider Active Start: December 17, 2024 End: December 17, 2024 Team Status: Inactive Member Role Status Dates Dr. Francheska Alonzo DO Primary Care Provider Active Start: December 23, 2024 End: December 23, 2024 Dr. Francheska Alonzo DO Attending Provider Active St art: December 23, 2024 End: December 23, 2024 Dr. Francheska Alonzo DO Referring Provider Active St art: December 23, 2024 End: December 23, 2024 Team Status: Inactive Member Role Status Dates Dr. Francheska Alonzo DO Primary Care Provider Active Start: January 26, 2025 End: January 26, 2025 Dr. Francheska Alonzo DO Referring Provider Active St art: January 26, 2025 End: January 26, 2025 Dr. Petros Valdez MD Attending Provider Active S tart: January 26, 2025 End: January 26, 2025 FOR RECORDS PERTAINING TO PATIENTS WHO ARE [...] BE BASED ON THE PRIMARY CLINICAL RECORDS. [employer] [facility]. provides no warranty or guarantee of the accuracy or completeness of information in this document.
[2025-03-02] MEDS: Lactated Ringers 1,000 ML 15 ML IV (06:12)
--- NOTE | 2025-03-02 06:26 | PCM.PRE.AN2 ---
ASA Classification* ASA Classification ASA Classification: 2 Assessment & Plan Anesthesia* Anesthesia Assessment Anesthesia Assessment: Discussed sedation and/or anesthesia options, risks, benefits, and alternatives with patient/parents/legal guardian/POA. Questions invited. The patient/parents/legal guardian/POA seems to understand and agrees to proceed with anesthesia plan. Reviewed the physical assessment, medical history, allergy history and patient home medications list prior to surgery/procedure/anesthetic and documented any changes. Performed airway and anesthesia risk assessments. Anesthesia Type Anesthesia Type: MAC History Source History Obtained from:: Patient and Chart Anesthesia Focused Assessment* Temperature: 97.4 F Pulse Rate: 55 Blood Pressure: 162/80 Respiratory Rate: 18 Pulse Ox: 100 Oxygen Delivery Method: Room Air Airway Assessment Mouth opens: >3 cm Mallampati Score: III Teeth Condition: Caps/Crowns (Patient has a couple crowns. They are tight.) Neck Range of motion (ROM): Limited ROM (Slight decrease in extension) Labs Anesthesia Preop lab: CBC WBC 5.5 K/mm3 (4.4-11.0) 12/23/24 06:09 12/23/24 RBC 4.40 M/mm3 (4.6-6.2) L 12/23/24 06:09 12/23/24 Hgb 15.1 g/dL (13.0-16.5) 12/23/24 06:09 12/23/24 Hct 42.5 % (40-54) 12/23/24 06:09 12/23/24 Plt Count 188 K/mm3 (150-450) 12/23/24 06:09 12/23/24 CHEMISTRY Potassium 4.6 mmol/L (3.3-5.1) 12/23/24 06:09 12/23/24 Sodium 139 mmol/L (133-145) 12/23/24 06:09 12/23/24 Magnesium 2.3 mg/dL (1.6-2.6) 04/18/21 12:42 04/18/21 BUN 21 mg/dL (4-19) H 12/23/24 06:09 12/23/24 Creatinine 0.93 mg/dL (0.70-1.20) 12/23/24 06:09 12/23/24 Glucose 83 mg/dL (70-99) 12/23/24 06:09 12/23/24 TSH 0.81 uIU/mL (0.358-3.74) 04/03/21 13:11 04/03/21 COAG Pre-Assessment Diagnosis/Proposed Procedure Planned Operative Procedure(s): egd Anesthesia History Anesthesia History - transition assistant: Anesthesia History - transition assistant Hx Hospitalization No 02/25/25 12:56 Any Problems With Anesthesia No 02/25/25 12:56 Cholinesterase deficiency No 02/25/25 12:56 You/Your Family Experience No 02/25/25 12:56 fever (hyperthermia) with Relationship Recent Exposure to Contagious No 03/02/25 06:01 Disease Does patient have nerve No 02/25/25 12:56 stimulator Patient instructed to have device shut off --Does patient have Pacemaker No 03/02/25 06:01 or ICD? When Was Last Pacemaker Check QUESTION #4 FULL TEXT: You/Your Family Experience fever (hyperthermia) with Anesthesia Last Oral Intake Last Oral intake: Last Oral Intake NPO since 15:00 03/02/25 06:01 Meds taken in AM with sips of No 03/02/25 06:01 water? Meds patient instructed to take am of surgery PONV PONV - transition assistant: PONV - transition assistant Female No 02/25/25 12:56 HX of Motion Sickness No 02/25/25 12:56 HX of N/V After Surgery No 02/25/25 12:56 Non-Smoker Yes 02/25/25 12:56 Duration of Surgery greater No 02/25/25 12:56 than 60 minutes Number of Risk Factors 1 02/25/25 12:56 PONV Score Low Risk 02/25/25 12:56 Height & Weight Height & Weight: Anesthesia: Height & Weight Height 6 ft 03/02/25 06:01 Weight: 77.5 kg 03/02/25 06:01 Body Mass Index (BMI) 23.1 03/02/25 06:01 Respiratory Assessment Respiratory Assessment - transition assistant: Respiratory Tract Infection Hx - transition assistant Hx Respiratory Tract Infection No 02/25/25 12:56 STOP Sleep Apnea STOP Sleep Apnea - transition assistant: STOP Sleep Apnea - transition assistant Hx Hypertension Yes: CONTROLLED WITH 02/25/25 12:56 Hx Sleep Apnea No 02/25/25 12:56 CPAP BIPAP Do you snore loudly (louder No 02/25/25 12:56 than talking or can be heard Do you often feel tired/ No 02/25/25 12:56 fatigued/ sleepy during daytime? Has anyone observed you stop No 02/25/25 12:56 breathing during sleep? STOP Results Negative 02/25/25 12:56 QUESTION #5 FULL TEXT : Do you snore loudly (louder than talking or can be heard through closed doors)? 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 Specify any problems Hx of Preganancy in last 3 N/A 02/25/25 12:56 Months Nurse Filling Out Transfusion NBUCHER 02/25/25 12:56 & Questions: Date: 02/25/25 02/25/25 12:56 Time: 12:56 02/25/25 12:56 Patient unable to answer at this time (ie. confused, unrespo /Reproduction History /Reproductive History - transition assistant: /Reproductive Hx- transition assistant Hx Now No 02/25/25 12:56 Gestational Age (in weeks): EDC: Hx Hx Para Hx Section SAB No 02/25/25 12:56 Active Medications Active Medications: Current Medications Generic Name Dose Route Start Last Admin Trade Name Freq PRN Reason Stop Dose Admin Lactated Ringer's 1,000 mls @ 15 mls/hr 03/02/25 06:00 03/02/25 06:12 IV 15 mls/hr .Q48H LIYA Administration PFSH Medical History Arteriosclerosis of coronary artery Normal stress echocardiogram Gastritis Onofre esophagus Wears glasses Alcohol use Arthritis Back pain Hepatitis High cholesterol Gastric reflux Non-smoker History of edema History of echocardiogram History of stress test Cardiology follow-up encounter Hx of colonic polyp GERD (gastroesophageal reflux disease) Mitral valve annular calcification Chronic renal insufficiency Essential (primary) hypertension Raynaud disease Hyperlipidemia Palpitations Home Medications ?Medication ?Instructions ?Recorded ?Last Taken ?Type coenzyme Q10 30 mg capsule 30 mg PO DAILY 05/21/16 Unknown History multivitamin 1 ea PO DAILY 05/21/16 Unknown History cyanocobalamin (vitamin B-12) 2,000 mcg PO DAILY 04/22/17 Unknown History 2,000 mcg tablet ascorbic acid (vitamin C) 1,000 mg 1 g PO QDAY 09/25/17 Unknown History tablet s-adenosylmethionine 400 mg tablet 800 mg PO DAILY 10/10/21 Unknown History melatonin 12 mg tablet 12 mg PO QHS 10/16/22 Unknown History rosuvastatin 10 mg tablet 20 mg PO DAILY 10/16/22 11/28/22 History Held on 02/25/25. Instructions: pt does not want to take it aspirin-sod bicarb-citric acid 325 1 tab PO PRN PRN BLOATING 11/30/22 Unknown History mg-1,916 mg-1,000 mg efferves tab (Maryjane-[facility]ise Original) lisinopril 5 mg tablet 5 mg PO DAILY #90 tabs 09/28/24 Unknown Rx vonoprazan 10 mg tablet (Voquezna) 10 mg PO QDAY 10/01/24 Unknown History omeprazole 40 mg capsule,delayed 40 mg PO QDAY #90 caps 10/16/24 Unknown Rx release Allergy/AdvReac Type Severity Reaction Status Date / Time No Known Allergies Allergy Verified 03/02/25 06:01 Family History Father Cancer Colon cancer Mother , age 72 CAD (coronary artery disease) Hypertension Breast cancer Surgical History History of hand surgery History of cardiac catheterization History of esophagogastroduodenoscopy (EGD) Hx of foot surgery Hx of colonoscopy Hx of hernia repair Hx of transurethral resection of prostate Hx of appendectomy History of hydrocelectomy Social History Smoking Status: Never smoker alcohol intake: current alcohol intake frequency: 0-2 drinks per day substance use type: does not use caffeine: Yes Type: coffee Number of servings: 4 Review of Systems (Anesthesia) ROS Narrative System reviewed and no additional complaints, except as documented.
--- NOTE | 2025-03-02 06:30 | EGD_PTH ---
PATIENT: BRIANNA COLEMAN LOC: EN U#:[id number] AGE/SX: 79/M ROOM: RE03/02/[address]: Dr. David Parra DO : 1945 BED: DIS: 03/02/2025 SPEC #: [id number] RECD: 03/02/25 10:41 STATUS: AUBREY REQ #: [id number] ANAIS: 03/02/25 06:[address]: David Parra DEPT: SURGICAL PATHOLOGY RECD BY: Carlos Alberto Malcolm ENTERED: 03/02/25 11:27 SP TYPE: EGD BIOPSY OT DR: Dr. Francheska Alonzo DO Tissues: A - Esophagus, NOS Procedures: Surgery Specimen Level IV HEADER OPERATION: EGD, biopsy PRE-OP DIAGNOSIS: Gastroesophageal reflux disease, Onofre's esophagus TISSUE SUBMITTED: A- Distal esophagus biopsy MICROSCOPIC DIAGNOSIS A. Distal esophagus, biopsy: - Benign squamous mucosa. - Scant columnar mucosa negative for goblet cell metaplasia. MICROSCOPIC DESCRIPTION Slides are reviewed. GROSS DESCRIPTION A. Received in fixative is one container labeled with the patient's name and designated Distal esophagus biopsy. The specimen consists of three irregular fragments of light rick soft tissue that in aggregate measure 0.3 to 0.5 cm. The specimen is totally submitted in one cassette. MARTIN/ 03/02/2025 CPT:31142
--- NOTE | 2025-03-02 06:48 | HP.PCM_ITS ---
HPI - General General Date of Admission: 03/02/25 Date of Service: 03/02/25 Chief Complaint: yates's esophagus HPI Narrative BRIANNA COLEMAN, is a 79 M who presents for surveillance of yates's esophagus. 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 Biopsied. Small hiatal hernia. Normal stomach. No gross lesions in the first portion of the duodenum. OV 7 pt reports that he is feeling well overall and denies GI symptoms of concern at this time. Pt reports that about 4 weeks ago he was diagnosed with Lyme disease, and has lost about 8 lbs since. Continues with dexilant. abd/pelvis CT 05.10.24 1. Prominent prostate enlargement. Possible bladder wall thickening although bladder is suboptimally evaluated by not being dist ended. 2. Moderate to marked diffuse fecal retention. OV 10.01.24 pt reports that PCP switched him from dexilant to voquenza 10mg daily on 09.21.24. Pt reports it is working, but wears off after about 12 hours. Pt reports he recently stopped drinking alcohol and thinks that his GERD has gotten worse. OV 12.17.24 pt reports his PCP gave him Voquezna, has been taking this in the evenings and then Omeprazole in the mornings. Reports as long as he watches what, how much, and when he eats, he is able to keep him symptoms at bay. 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 [facility] Medical History Arteriosclerosis of coronary artery Normal stress echocardiogram Gastritis Yates esophagus Wears glasses Alcohol use Arthritis Back pain Hepatitis High cholesterol Gastric reflux Non-smoker History of edema History of echocardiogram History of stress test Cardiology follow-up encounter Hx of colonic polyp GERD (gastroesophageal reflux disease) Mitral valve annular calcification Chronic renal insufficiency Essential (primary) hypertension Raynaud disease Hyperlipidemia Palpitations Home Medications ?Medication ?Instructions ?Recorded ?Last Taken ?Type coenzyme Q10 30 mg capsule 30 mg PO DAILY 05/21/16 Unk nown History multivitamin 1 ea PO DAILY 05/21/16 Unkno wn History cyanocobalamin (vitamin B-12) 2,000 mcg PO DAILY 04/22 Unknown History 2,000 mcg tablet ascorbic acid (vitamin C) 1,000 mg 1 g PO QDAY 8 Unknown History tablet s-adenosylmethionine 400 mg tablet 800 mg PO DAILY 09/30 Unknown History melatonin 12 mg tablet 12 mg PO QHS 10/16/22 Unknow n History rosuvastatin 10 mg tablet 20 mg PO DAILY 10/16/2211/08 History Held on 02/25/25. Instructions: pt does not want to take it aspirin-sod bicarb-citric acid 325 1 tab PO PRN PRN BL OATING 11/30/22 Unknown History mg-1,916 mg-1,000 mg efferves tab (Maryjane-[place] Original) lisinopril 5 mg tablet 5 mg PO DAILY #90 tabs 09/28 Unknown Rx vonoprazan 10 mg tablet (Voquezna) 10 mg PO QDAY 10/01 Unknown History omeprazole 40 mg capsule,delayed 40 mg PO QDAY #90 cap s 10/16/24 Unknown Rx release Allergy/AdvReac Type Severity Reaction Status Date / Time No Known Allergies Allergy Verified 03/02/25 06:01 Family History Father Cancer Colon cancer Mother , age 72 CAD (coronary artery disease) Hypertension Breast cancer Surgical History History of hand surgery History of cardiac catheterization History of esophagogastroduodenoscopy (EGD) Hx of foot surgery Hx of colonoscopy Hx of hernia repair Hx of transurethral resection of prostate Hx of appendectomy History of hydrocelectomy Social History Smoking Status: Never smoker alcohol intake: current alcohol intake frequency: 0-2 drinks per day substance use type: does not use caffeine: Yes Type: coffee Number of servings: 4 ROS Constitutional Constitutional: Denies fatigue, fever(s), poor appetite, weight gain or weight loss Gastrointestinal Gastrointestinal: Denies belching, bloating, change in bowel habits, change in stool character, chewing difficulty, coffee ground emesis, constipation, cramping, diarrhea, dyspepsia, dysphagia, early satiety, excessive flatus, fecal incontinence, heartburn, hematemesis, hematochezia, hemorrhoids, loose stools, melena, nausea, odynophagia, rectal bleeding, tenesmus, vomiting or weight changes Vital Signs Vital Signs Vital Signs: 03/02/25 06:01 03/02/25 06:01 03/02/25 06:31 Temperature 97.4 F L 97.4 F L Temperature Source Temporal Pulse Rate 55 L 55 L Respiratory Rate 18 18 Respiratory Pattern Normal Blood Pressure 162/80 H 162/80 H Blood Pressure Mean 107 Blood Pressure Source Monitor Blood Pressure Position Semi-Fowlers Blood Pressure Location Left Arm Pulse Ox 100 100 Oxygen Delivery Method Room Air Room Air Weight Weight: 170 lb 13.732 oz Body Mass Index (BMI) 23.1 Physical Exam Const alert, oriented x3, no apparent distress and healthy appearing General Appearance: cooperative GI normal to inspection, nondistended, normoactive bowel sounds, soft to palpation, non-tender and non-distended Percussion: normal to percussion Rectal Exam: deferred Assessment & Plan Assessment/Plan (1) Yates esophagus: PLAN: Assessment and Plan Assessment and Plan (1) Gastroesophageal reflux disease: (2) Yates esophagus: Status: Chronic Plan: Discussed EGD findings, positive for Yates's still, negative for dysplasia. He is on omeprazole 20 mg p.o. daily and Voquenza in the pm because he thinks his new medicine is not lasting very long. Repeat EGD
--- NOTE | 2025-03-02 07:11 | OP.CCLET_ITS ---
03/02/2025 Francheska Alonzo Re : Upper GI endoscopy procedure for Jung Alonzo This procedure was performed on Sunday, March 02, 2025. My impressions and recommendations are as follows: Impressions : - Z-line irregular, 42 cm from the incisors. Biopsied. - Large hiatal hernia. - No gross lesions in the entire stomach. - No gross lesions in the entire examined duodenum. Recommendations : - Discharge patient to home. - Resume previous diet. - Continue present medications. - Await pathology results. My findings are described in the full procedure note, which is enclosed. If I can be of further assistance, please feel free to contact me at . Sincerely, David Parra, 03/02/2025 7:10:43 AM This report has been signed electronically.
--- NOTE | 2025-03-02 07:11 | OP.EGD_ITS ---
Patient Name: Jung Aburto Procedure Date: 03/02/2025 6:49 AM Date of : 1945 Age: 79 Procedure: Upper GI endoscopy Indications: Heartburn, Onofre's esophagus, Follow-up of Onofre's esophagus Providers: David Parra DO Referring MD: Francheska Alonzo Medicines: Monitored Anesthesia Care Patient Profile: This is a 79 year old male. Patient has symptoms of chronic heartburn. Complications: No immediate complications. Procedure: Pre-Anesthesia Assessment: - Prior to the procedure, a History and Physical was performed, and patient medications and allergies were reviewed. The patient is competent. The risks and benefits of the procedure and the sedation options and risks were discussed with the patient. All questions were answered and informed consent was obtained. Patient identification and proposed procedure were verified by the physician in the pre-procedure area. Mental Status Examination: alert and oriented. Airway Examination: normal oropharyngeal airway and neck mobility. Respiratory Examination: clear to auscultation. CV Examination: normal. Prophylactic Antibiotics: The patient does not require prophylactic antibiotics. Prior Anticoagulants: The patient has taken no anticoagulant or antiplatelet agents except for NSAID medication. ASA Grade Assessment: II - A patient with mild systemic disease. After reviewing the risks and benefits, the patient was deemed in satisfactory condition to undergo the procedure. The anesthesia plan was to use monitored anesthesia care (MAC). Immediately prior to administration of medications, the patient was re-assessed for adequacy to receive sedatives. The heart rate, respiratory rate, oxygen saturations, blood pressure, adequacy of pulmonary ventilation, and response to care were monitored throughout the procedure. The physical status of the patient was re-assessed after the procedure. After obtaining informed consent, the endoscope was passed under direct vision. Throughout the procedure, the patient's blood pressure, pulse, and oxygen saturations were monitored continuously. The Endoscope was introduced through the mouth, and advanced to the second part of duodenum. The upper GI endoscopy was accomplished without difficulty. The patient tolerated the procedure well. Scope In: 7:03:13 AM Scope Out: 7:05:55 AM Total Procedure Duration Time 0 hours 2 minutes 42 seconds Findings: The Z-line was irregular and was found 42 cm from the incisors. Biopsies were taken with a cold forceps for histology. Verification of patient identification for the specimen was done. Estimated blood loss was minimal. A large hiatal hernia was present. No gross lesions were noted in the entire examined stomach. No gross lesions were noted in the entire examined duodenum. Impression: - Z-line irregular, 42 cm from the incisors. Biopsied. - Large hiatal hernia. - No gross lesions in the entire stomach. - No gross lesions in the entire examined duodenum. Recommendation: - Discharge patient to home. - Resume previous diet. - Continue present medications. - Await pathology results. Procedure Code(s): --- Professional --- 58174, Esophagogastroduodenoscopy, flexible, transoral; with biopsy, single or multiple CPT copyright 2021 [employer]. All rights reserved. The codes documented in this report are preliminary and upon surgical coder review may be revised to meet current compliance requirements. David Parra DO 03/02/2025 7:10:43 AM This report has been signed electronically. Number of Addenda: 0 Note Initiated On: 03/02/2025 6:49 AM
--- NOTE | 2025-03-02 07:16 | PCM.POST.ANE ---
Anesthesia: Postop Eval I Current Vital Signs Temperature: 97.9 F Pulse Rate: 68 Blood Pressure: 139/81 Respiratory Rate: 16 Pulse Ox: 98 Oxygen Delivery Method: Room Air Assessment Airway patent: Yes Spontaneous unlabored respirations: Yes Mental status: Awake nausea: No Vomiting: No Anesthesia Complication: No Fluid Hydration Crystalloid volume administer (ml): 300 Total IV fluid infused: 300 Progress Note Anesthesia document: Postop Eval 1 completed: Yes
--- NOTE | 2025-03-02 08:48 | PCM.POSTANE2 ---
Anesthesia Postop Eval I Sum Postop Eval Completion status Anesthesia document: Postop Eval 1 completed: Yes Anesthesia Postop Eval I Summary Anesthesia Postop Eval I Summary: Anesthesia Postop Eval I: Assessment Summary Airway patent Yes 03/02/25 07:16 [email or web address] Spontaneous unlabored Yes 03/02/25 07:16 [email or web address] respirations Mental status Awake 03/02/25 07:16 [email or web address] nausea No 03/02/25 07:16 [email or web address] Vomiting No 03/02/25 07:16 [email or web address] Anesthesia Postop Eval I: Fluid Summary Crystalloid volume administer 300 03/02/25 07:16 [email or web address] (ml) Colloids volume administered ( ml) Blood Product volume administered (ml) Total IV fluid infused 300 03/02/25 07:16 [email or web address] Anesthesia Postop Eval I: Summary Notes Anesthesia Complication No 03/02/25 07:16 [email or web address] Anesthesia Complication Comment: Post-operative progress note Anesthesia: Postop Eval II Evaluation Mental status: Awake Pain Level: 0 nausea: No Vomiting: No
== END 2025-03-02 07:52 | disposition home or self-care (01) ==
LOC: EN 05:38 → AC 05:38
PROVIDERS: PCP Internal Medicine; Referring Provider Internal Medicine; Visit Provider Internal Medicine Gastroenterology
PROC: 0DJ08ZZ Inspection of Upper Intestinal Tract, Via Natural or Artificial Opening Endoscopic (ICD-10-PCS; CPT 43235; principal; 2025-03-02 06:25)
DX: K22.70 Barrett's esophagus without dysplasia (principal); K44.9 Diaphragmatic hernia without obstruction or gangrene; I25.10 Atherosclerotic heart disease of native coronary artery without angina pectoris; I12.9 Hypertensive chronic kidney disease with stage 1 through stage 4 chronic kidney disease, or unspecified chronic kidney disease; E78.00 Pure hypercholesterolemia, unspecified; N18.9 Chronic kidney disease, unspecified; K21.9 Gastro-esophageal reflux disease without esophagitis
CPT/HCPCS: 43239; 88305; J2405

== ENCOUNTER → 2025-03-08 | Outpatient (CLI) | payer MEDICARE, SELFPAY ==
--- OUTSIDE RECORDS SUMMARY | 2025-03-08 06:02 | XMS RPT_ITS | CCD ---
Author Organization [facility] Care Team Providers Care Data Processing Systems Consultant Name Role Phone Steve BEAR, Khadijah Clark Unavailable LinkLogic Unavailable Mal Joseph MD Unavailable ADRIANNA MCDUFFIE Unavailable Unavailable ADRIANNA MCDUFFIE Unavailable Unavailable NO REFERRING DR Unavailable Unavailable ADRIANNA MCDUFFIE Unavailable Unavailable ADRIANNA MCDUFFIE Unavailable Unavailable Fast DO, Francheska A Unavailable [facility], Naida Unavailable Unavailable Slarb PANEL SEWER, Yoko Unavailable Unavailable Unavailable Unavailable Friend, Dr. Henrandez Unavailable Dr. Spike Mullen Referring Provider Dr. Petros Valdez Attending Provider Clinton, Dr. Pritchard Primary Care Provider [phone] Dr. Francheska Alonzo Referring Provider [phone] Radhika NEWSPAPER MANAGING EDITOR, NEWSPAPER MANAGING EDITOR-C Alicia Delatorre Attending Provider [phone] FriendDr. Hernandez Attending Provider Friend, Dr. Hernandez Other Provider Fast DO, Francheska A Unavailable Mal Elizabeth MD Unavailable [place] PHOTOGRAPHIC EQUIPMENT MECHANIC, Kayela Unavailable Unavailable Fast DO, Francheska A Primary Care Provider [phone] Clinton, Dr. Pritchard Primary Care Provider [phone] Clinton, Dr. Pritchard Referring Provider Fast DO, Francheska A Primary Care [...] Tanner ARIZMENDI, KYLEIGH Delatorre Attending Provider Dr. Sd Kirk Attending Provider [phone] Radhika NEWSPAPER MANAGING EDITOR, NEWSPAPER MANAGING EDITOR-C Alicia Delatorre Attending Provider [phone] FriendDr. Hernandez Attending Provider [phone] Dr. David Parra Other Provider [phone] Clinton, Dr. Pritchard Primary Care Provider [phone] Courtney, Dr. Morrell Attending Provider [phone] Fast, Dr. Pritchard Referring Provider [phone] Clinton, Dr. Pritchard Primary Care Provider [phone] Fast, Dr. Pritchard Referring Provider [phone] Radhika NEWSPAPER MANAGING EDITOR, NEWSPAPER MANAGING EDITOR-C Alicia Delatorre Attending Provider [phone] ARPAN Kelly LPN Unavailable Unavailable Fast, Dr. Pritchard Primary Care Provider [phone] Fast, Dr. Pritchard Referring Provider [phone] Dr. Michele Hodgson Attending Provider Dr. Durga Pierson Attending Provider Clinton, Dr. Pritchard Primary Care Provider [phone] Fast, Dr. Pritchard Referring Provider Courtney, Dr. Morrell Attending Provider Fast DO, Dr. Pritchard Primary Care Provider [phone] Fast DO, Dr. Pritchard Referring Provider [phone] Friend DO, Dr. Hernandez Attending Provider Fast DO, Dr. Pritchard Attending Provider [phone] Courtney MORALES, Dr. Morrell Attending Provider [phone] Fast DO, Dr. Pritchard Primary Care Provider [phone] Fast DO, Dr. Pritchard Referring Provider [phone] Friend DO, Dr. Hernandez Attending Provider Friend DO, Dr. Hernandez Other Provider [phone] Fast, Francheska Primary Care Unavailable Mal Aleman Attending Unavailable Fast, Francheska Primary Care Unavailable Fast, Francheska Attending Unavailable Fast, Francheska Referring Unavailable Fast, Francheska Primary Care Unavailable Fast, Francheska Referring Unavailable Friend, David Attending Unavailable Fast, Francheska Primary Care Unavailable Fast, Francheska Attending Unavailable Fast, Francheska Referring Unavailable Fast, Francheska Primary Care Unavailable Courtney, Petros Attending Unavailable Courtney, Petros Referring Unavailable Fast, Francheska Primary Care Unavailable Courtney, Irvine Attending Unavailable Fast, Francheska Referring Unavailable Friend, David Attending Unavailable Fast, Francheska Referring Unavailable Fast, Francheska Primary Care Unavailable Friend, David Attending Unavailable Fast, Francheska Referring Unavailable Fast, Francheska Primary Care Unavailable Fast, Francheska Referring Unavailable Friend, David Consulting Unavailable Friend, David Attending Unavailable Fast, Francheska Primary Care Unavailable Fast, Francheska Referring Unavailable Friend, David Attending Unavailable Fast, Francheska Primary Care Unavailable Fast, Francheska Attending Unavailable Fast, Francheska Referring Unavailable Fast, Francheska Primary Care Unavailable Fast, Francheska Attending Unavailable Fast, Francheska Referring Unavailable Fast, Francheska Primary Care Unavailable Fast, Francheska Attending Unavailable Fast, Francheska Referring Unavailable Allergies Allergy Classification Reported Allergen(s) Allergy [...] One tablet by mouth daily ASCORBIC ACID [id number] Yeni Gray RN Start: 08-16-2011 take 1 tablet by darshan th twice daily Ascorbic Acid (VITAMIN C) 500 mg ORAL CpER Take 1 tablet by mouth twice daily. 0 08/16/2011 Active Comment on above: Take 1 tablet by darshan th twice daily. aspirin 81 mg oral tablet (12 sources) Platelet Aggregation Inhibitor, Nonsteroidal Anti-inflammatory Drug [...] sodium bicarbonate 1916 mg effervescent oral tablet (10 sources) Platelet Aggregation Inhibitor, Nonsteroidal Anti-inflammatory Drug, Calculi Dissolution Agent, Anti-coagulant Start: 11-30-2022 Aspirin-Sod Bicarb-Citric Acid (Maryjane-[place] Original) 325-1,916-1,000 mg tablet, effervescent Active 1 {tbl} PO NEEDED as needed for BLOATING November 30, 2022 12:00am Start: 11-30-2022 take 325-1916 tablet s by mouth once daily Aspirin-Sod Bicarb-Citric Acid (Maryjane-[place] Original) 325-1,916-1,000 mg tablet, effervescent Active 1 TABLET PO DAILY November 30, 2022 12:00am ubidecarenone 30 mg oral cap january (20 sources) Start: 05-21-2016 Coenzyme Q10 3 0 MG capsule Active 30 mg PO DAILY May 21, 2016 12:00am Start: 02-19-2012 take 1 capsule by [facility] once daily Coenzyme Q10 (COQ-10) 100 mg Cap Take 1 capsule by mouth once daily. 0 02/19/2012 Active Start: 12-12-2010 End: 08-28-2011 take 1 tablet by mouth once daily COENZYME Q10 60 MG TABS One tablet by mouth daily COENZYME Q10 [id number] Yeni Gray RN Comment on above: Take 1 capsule by [facility] once daily. Dexlansoprazole (Dexilant) 60 mg Capsule,Biphase Delayed Releas (13 sources) Start: 01-09-20 take 1 capsule by mouth once daily Dexlansoprazole (Dexilant) 60 mg Capsule,Biphase Delayed Releas Active 60 MG PO DAILY January 08, 2022 11:25am Start: 01-08-2022 End: 10-01-2024 take 1 capsule by mouth once daily Dexlansoprazole (Dexilant) 60 mg Capsule,Biphase Delayed Releas Discontinued 60 mg PO DAILY January 08, 2022 12:00am October 01, 2024 3:05pm Start: 01-08-2022 take 1 capsule by [facility] once daily Dexlansoprazole (Dexilant) 60 mg Capsule,Biphase Delayed Releas Active 60 MG PO DAILY January 07, 2022 11:00pm Start: 01-08-2022 take 1 capsule by [facility] once daily Dexlansoprazole (Dexilant) 60 mg Capsule,Biphase Delayed Releas Active 60 MG PO DAILY January 08, 2022 12:00am Iron (13 sources) Start: 01-08-2022 take 45 mg by [...] Combination No.4 (Probiotic) 3 billion cell Capsule (13 sources) Start: 01-08-2022 take 3 capsules by [...] 06, 2020 2:29pm Multivitamin 1 EACH tablet (3 sources) Start: 05-21-2016 Multivitamin 1 EACH tablet Active 1 NMA PO DAILY May 21, 2016 12:00am Multivitamin preparation (10 sources) Start: 05-21-2016 Multivitamin A ctive 1 EACH PO DAILY May 21, 2016 2:11pm Start: 05-21-2016 Multivitamin A ctive 1 EACH PO DAILY May 20, 2016 11:00pm Start: 05-21-2016 Multivitamin A ctive 1 EACH PO DAILY May 21, 2016 12:00am [place] 7-Gbk-Ppk-Fish Oil (10 sources) Start: 04-22-2017 take 1 tablet by mouth once daily [place] 7-Pus-Ltj-Fish Oil Active 1 TABLET PO DAILY April 22, 2017 10:36am Start: 04-22-2017 End: 10-16-2022 take 1 tablet by mouth once daily [place] 5-Uro-Eej-Fish Oil Discontinued 1 TABLET PO DAILY April 21, 2017 11:00pm October 16, 2022 2:12pm Start: 04-22-2017 End: 10-16-2022 take 1 tablet by mouth once daily [place] 3-Cpe-Nuq-Fish Oil Discontinued 1 TABLET PO DAILY April 22, 2017 12:00am October 16, 2022 3:12pm Start: 04-22-2017 take 1 tablet by darshan th once daily [place] 4-Haz-Fxd-Fish Oil Active 1 TABLET PO DAILY April [...] TABS One tablet by mouth daily CYANOCOBALAMIN [id number] Sonya Ozuna Vitamin b12 Acti ve Vonoprazan (Voquezna) 10 mg tablet (3 sources) Start: 10-01-2024 take 1 tablet by [...] 02-Mar-2022 Active Comments: verbally called to RA - brantnchak 07/12 Start: 07-12-2021 Butalbital-APA P-Caffeine 50-325-40 MG Oral Tablet 1 (one) Tablet 1 tab prn migraine for 0 days Quantity: 30 {Tablet} Refills: 3 Ordered: 25-Oct-2021 Fast DO, Francheska A Fast DO, Francheska A Start : 12-Jul-2021 Active Comments: verbally called to RA - brantnchak 07/12 Comment on above: verbally called to R A - cmanchak 07/12 verbally called to R A - cmanchak 03/07/22 verbally called to R A - cmanchak 08/01/22 acetaminophen 325 mg / oxyCODONE hydrochloride 5 mg oral tablet (13 sources) Opioid Agonist Start: 04-23-2017 End: 10-03-2017 [...] 2017 4:42pm amLODIPine 2.5 mg oral tablet (13 sources) Dihydropyridine Calcium Channel Bianca Start: 10-21-2018 [...] tablet by mouth daily AMLODIPINE BESY-BENAZEPRIL HCL [id number] Sonya Ozuna Start: 12-12-2010 End: 08-28-2011 take 1 tablet by mouth once daily LOTREL 5-10 MG CAPS One tablet by mouth daily AMLODIPINE BESY-BENAZEPRIL HCL [id number] Yeni Gray RN amoxicillin 500 mg / clavulanate 125 mg oral tablet (13 sources) Penicillin-class Antibacterial Start: 01-10-2022 End: 10-16-2022 Amoxicillin-Pot Clavulanate (Augmentin) 500-125 mg tablet Discontinued 1 {tbl} PO TWICE A DAY January 10, 2022 12:00am October 16, 2022 3:11pm BUTALBITAL-ASPIRIN- CAFFEINE (10 sources) Barbiturate, Nonsteroidal Anti-inflammatory Drug, Central Nervous System Stimulant, Methylxanthine Start: 09-05-2012 FIORINAL 50-325-40 M G CAPS 2-3 X a week for headaches, as needed JGMVENKJPO-EZCYLXB-EHV FEINE [id number] Petros Valdez MD Start: 12-12-2010 FIORINAL 50-32 5-40 MG CAPS 2-3 X a week for headaches, as needed WFQLBCHMTK-VGYGOJY-HFAEJVSO [id number] Sonya Ozuna aspirin 325 mg / butalbital 50 mg / caffeine 40 mg oral capsule (13 sources) Platelet Aggregation Inhibitor, Barbiturate, Nonsteroidal Anti-inflammatory Drug, Central Nervous System Stimulant, Methylxanthine Start: 05-21-2016 End: 11-07-2021 Crrrambgit-Jcsbzwl-Cofunkse 1 EACH capsule Discontinued 1 {tbl} PO DAILY NEEDED as needed for Headache May 21, 2016 12:00am November 07, 2021 12:32pm Start: 05-21-2016 End: 11-07-2021 take 1 tablet by mouth once daily as needed Yrlpwjouij-Vheuhzr-Vggpiugq Discontinued 1 TABLET PO DAILY NEEDED May [...] Start: 07-06-2015 take 0.5 tablet by m out once daily in the evening ATORVASTATIN CALCIUM 40 MG TABS 1/2 tablet by mouth every evening (pt cut self down 3 mos ago) ATORVASTATIN CALCIUM [id number] Petros Valdez MD Start: 07-06-2015 ATORVASTATIN C ALCIUM 40 MG TABS One tablet by mouth ever evening ATORVASTATIN CALCIUM [id number] Petros Valdez MD Comment on above: Take 20 mg by mouth once daily. cholecalciferol 0.125 mg oral tablet (2 sources) Vitamin D Start: 2 take 1 tablet by mouth once daily Cholecalciferol, Vitamin D3, 5,000 unit Tab Take 1 tablet by mouth once daily. 0 02/19/2012 Active Comment on above: [facility] dexlansoprazole 60 mg delayed release oral capsule (20 sources) Proton Pump Inhibitor Start: 3 take 1 capsule by mouth once daily Dexilant 60 mg oral capsule,delayed release,biphasic 1 (one) Capsule daily for 90 days Quantity: 90 {Capsule} Refills: 3 Ordered: 02-Jul-2023 Fast DO, Francheska A Fast DO, Francheska A Start : 02-Jul-2023 Active Start: 12-07-2022 take 1 capsule by mo [facility] once daily Dexilant 60 mg oral capsule,delayed release,biphasic 1 (one) Capsule daily for 0 days Quantity: 30 {Capsule} Refills: 6 Ordered: 07-Dec-2022 Fast DO, Francheska A Fast DO, Francheska A Start : 07-Dec-2022 Active Start: 11-10-2021 take 1 capsule by mo [facility] once daily Dexilant 60 [...] Start: 05-16-2021 take 1 capsule by mo [facility] once daily Dexilant 60 [...] 12:33pm Start: 12-12-2010 take 1 tablet by darshan once daily DEXILANT 30 MG CPDR One tablet by mouth daily DEXLANSOPRAZOLE [id number] Sonya Ozuna diazePAM 5 mg oral tablet (20 sources) Benzodiazepine Start: 10-16-2022 End: 08-05-2023 Diazepam 5 mg tablet Discontinued 5 mg PO NEEDED as needed for Stomach Upset October 16, 2022 1:00am August 05, 2023 4:03pm Start: 07-30-2022 take 1 tablet by darshan once daily as needed Valium 5 MG Oral Tablet 1 (one) Tablet daily as needed for 0 days Quantity: 30 {Tablet} Refills: 0 Ordered: 30-Jul-2022 Fast DO, Francheska A Fast DO, Francheska A Start : 30-Jul-2022 Active Comments: Med[facility] taken [facility] Start: 07-30-2022 take 0.8392422205973 5714 tablet by mouth once daily as needed Valium 5 MG Oral Tablet 1 (one) Tablet daily as needed for 0 days Quantity: 30 {Tablet} Refills: 0 Ordered: 30-Jul-2022 Fast DO, Francheska A Fast DO, Francheska A Start : 30-Jul-2022 Active Comments: Medication taken as [facility]. [facility] Start: 03-14-2022 take 0.9774427016371 5714 tablet by mouth once daily as needed Valium 5 MG Oral Tablet 1 (one) Tablet daily as needed for 0 days Quantity: 30 {Tablet} Refills: 0 Ordered: 14-Mar-2022 Fast DO, Francheska A Fast DO, Francheska A Start : 14-Mar-2022 Active Comments: Medication taken as needed. verbally called to [facility] 12/04 Start: 01-24-2022 take 0.6033758891870 5714 tablet by mouth once daily as needed Valium 5 MG Oral Tablet 1 (one) Tablet daily as needed for 0 days Quantity: 30 {Tablet} Refills: 0 Ordered: 24-Jan-2022 Fast DO, Francheska A Fast DO, Francheska A Start : 24-Jan-2022 Active Comments: Medication taken as needed. verbally called to [facility] 12/04 Start: 12-04-2021 take 0.2366142734054 5714 tablet by mouth once daily as needed Valium 5 MG Oral Tablet 1 (one) Tablet daily as needed for 0 days Quantity: 30 {Tablet} Refills: 0 Ordered: 04-Dec-2021 Fast DO, Francheska A Fast DO, Francheska A Start : 04-Dec-2021 Active Comments: Medication taken as needed. verbally called to [facility] 12/04 Start: 05-21-2016 End: 11-07-2021 take 3.6579021954661899 tablets by mouth once daily as needed Valium 5 MG Oral Tablet 1 (one) Tablet daily as needed for 0 days Quantity: 30 {Tablet} Refills: 0 Ordered: 16-Oct-2021 Fast DO, Francheska A Fast DO, Francheska A Start : 16-Oct-2021 Active Comments: Medication taken as needed. verbally called to [facility] 07/12 Start: 05-21-2016 End: 11-07-2021 Diazepam 5 [...] Medication taken as needed. verbally called to [facility] 07/12 Medication taken as [facility]. [facility] Medication taken as needed. [facility] 08/01/22 Medication taken as needed. Medication taken as needed. [facility] 01/02/23 Medication taken as needed. [facility] 04/29/23 doxylamine succinate 25 mg oral tablet (13 sources) Start: 1 End: 2 Doxylamine Succinate (Unisom (Doxylamine)) 25 mg tablet Discontinued 12.5 mg PO AT BEDTIME as needed October 06, 2020 1:00am November 07, 2021 12:33pm ELASTIC BANDAGES & SUPPORTS (4 sources) Start: 7 HERNIA BELT DOUBLE LARGE MISC Per package ELASTIC BANDAGES & SUPPORTS [id number] Khadijah Wilson PA-C esomeprazole 20 mg injection (5 sources) Proton Pump Inhibitor Start: 2 take 1 tablet by mouth once daily NEXIUM 20 MG CPDR One tablet by mouth daily ESOMEPRAZOLE MAGNESIUM [id number] Petros Valdez MD famotidine 40 mg oral tablet (20 sources) Histamine-2 Receptor Antagonist Start: 2 take 1 tablet by mouth once daily Famotidine 40 MG Oral Tablet 1 (one) Tablet qd for 0 days Quantity: 30 {Tablet} Refills: 0 Ordered: 24-Jan-2022 Moni JANENaida Start : 25-Oct-2021 Active Start: 10-06-2020 End: 11-07-2021 take 1 tablet by mouth once daily as needed Famotidine 20 mg tablet Discontinued 20 mg PO DAILY as needed October 06, 2020 1:00am November 07, 2021 12:34pm take 2 tablets by [facility] once daily in the evening famotidine (PEPCID) 20 mg tablet Take 40 mg by mouth DAILY AT 6 PM. 0 Active Comment on above: Take 40 mg by mouth DAILY AT 6 PM. fish oil (10 sources) Start: 12-12-2010 End: 08-28-2011 take 1 tablet by mouth once daily FISH OIL CAPS One tablet by mouth daily OMEGA-3 FATTY ACIDS CAPS [id number] Yeni Gray RN Start: 12-12-2010 take 1 tablet by darshan th once daily FISH OIL CAPS One tablet by mouth daily OMEGA-3 FATTY ACIDS CAPS [id number] Sonya Ozuna Fluad 65yr up(PF)45 mcg(15 mcgx3)/0.5 mL [...] CPDR One tablet by mouth daily LANSOPRAZOLE [id number] Petors Valdez MD lisinopril 5 mg oral tablet [...] TABS One tablet by mouth daily LISINOPRIL [id number] Petros Valdez MD Start: 08-28-2011 take 0.5 tablet by [facility] once daily LISINOPRIL 20 MG TABS One-half tablet by mouth daily LISINOPRIL [id number] Yeni Gray RN Start: 05-29-2011 take 1 tablet by darshan th once daily LISINOPRIL 20 MG TABS One tablet by mouth daily LISINOPRIL [id number] Sonya Ozuna Comment on above: Take 5 [...] Start: 02-25-2023 take 1 tablet by darshan once daily as needed meloxicam 7.5 mg oral tablet 1 (one) tablet qd prn with food for 0 days Quantity: 30 {Tablet} Refills: 1 Ordered: 25-Feb-2023 Fast DO, Francheska A Fast DO, Francheska A Start : 25-Feb-2023 Active MULTIPLE VITAMIN (5 sources) Start: 12-12-2010 MULTIVITAMINS TABS Pt state too many to list MULTIPLE VITAMIN [id number] Sonya Ozuna Multivitamin ORAL capsule (2 sources) Start: 11-24-2010 take 1 capsule by mouth once daily Multivitamin ORAL capsule Take 1 capsule by mouth once daily. 0 11/24/2010 Active Comment on above: Take 1 capsule by mo [facility] once daily. [place] 2-Pmu-Hif-Fish Oil 1 EACH capsule,delayed release(DR/EC) (3 sources) Start: 04-22-2017 End: 10-16-2022 take 1 capsule by mouth once daily [place] 2-Rva-Aha-Fish Oil 1 EACH capsule,delayed release(DR/EC) Discontinued 1 {tbl} PO DAILY April 22, 2017 12:00am October 16, 2022 3:12pm OMEGA-3 FATTY ACIDS (5 sources) Start: 08-07-2017 EQL OMEGA 3 FI SH OIL 1200 MG CPDR once daily OMEGA-3 FATTY ACIDS [id number] Mal Joseph MD red yeast rice 600 mg oral capsule (13 sources) Start: 05-18-2021 End: 10-10-2021 take 1 [...] Start: 11-16-2022 take 1 tablet by darshan once daily rosuvastatin 20 mg oral tablet 1 (one) Tablet qd for 30 days Quantity: 30 {Tablet} Refills: 6 Ordered: 16-Nov-2022 Fast DO, Francheska A Fast DO, Francheska A Start : 16-Nov-2022 Active Start: 10-16-2022 take 20 mg by mouth once daily Rosuvastatin Active 20 MG PO DAILY October 16, 2022 1:00am Start: 10-16-2022 take 1 tablet by darshan once daily Rosuvastatin 10 mg tablet Active 20 mg PO DAILY October 16, 2022 1:00am On Hold: pt does not want to take it Start: 10-16-2022 take 2 tablets by mo [facility] once daily Rosuvastatin 10 mg tablet [...] tablet by mouth every evening ROSUVASTATIN CALCIUM [id number] Regine Bonilla RN Comment on above: Mail [...] once daily. sucralfate 100 mg/ml oral suspension (12 sources) Aluminum Complex Start: 2021 End: 2022 Sucralfate (Carafate) 100 mg/mL suspension Discontinued 10 mL PO before meals 999January 26, 2022 12:00am October 16, 2022 3:13pm take 10mL three times a day one hour before a meal and two hours away from other medications for thirty days. sulfamethoxazole 800 mg / trimethoprim 160 mg oral tablet (3 sources) Dihydrofolate Reductase Inhibitor Antibacterial, Sulfonamide Antimicrobial [...] Active tamsulosin hydrochloride 0.4 mg oral capsule (13 sources) alpha-Adrenergic Bianca Start: 2016 End: 2017 take 1 capsule by mouth once daily Tamsulosin 0.4 MG capsule Discontinued 0.4 mg PO DAILY April 27, 2017 12:00am October 03, 2017 4:42pm CHOLECALCIFEROL (10 sources) Start: 2010 take 1 tablet by mouth once daily VITAMIN D 1000 UNIT TABS One tablet by mouth daily CHOLECALCIFEROL [id number] Sonya Ozuna Start: 12-12-2010 End: 08-28-2011 take 1 tablet by mouth once daily VITAMIN D 1000 UNIT TABS One tablet by mouth daily CHOLECALCIFEROL [id number] Yeni Gray RN vitamin e 400 unt oral capsule (10 sources) Start: 12-12-2010 End: 08-28-2011 take 1 tablet by mouth once daily VITAMIN E 400 UNIT CAPS One tablet by mouth daily VITAMIN E [id number] Sonya Ozuna Problems Active Problems Problem Classification [...] ntinue to monitor doing well Cardiac dysrhythmias (18 sources) Palpitations; Translations: [Palpitations] Onset: 12-12-2010 12-12-2010 [...] modifica tion Diseases of white blood cells (3 sources) Leukocytosis; Translations: [Elevated white blood cell [...] regimen CONTROLLED WITH MEDS Gastritis and duodenitis (14 sources) Gastritis; Translations: [Gastritis, unspecified, without bleeding] Episodic Genitourinary symptoms and ill-defined conditions (3 sources) Dysuria; Translations: [Dysuria] 05-18-2024 Episodic Headache; including migraine (20 sources) Chronic tension-type headache; Translations: [Chronic tension headaches] 07-12-2021 Chronic Comment on above: chronic stable-domingo nue present regimen Heart valve disorders (18 sources) Mitral valve disorder; Translations: [Mitral valve [...] Resolved: 06-03-2023 07-11-2021 Episodic Malaise and fatigue (13 sources) Fatigue; Translations: [Other fatigue] 10-09-2021 Episodic [...] da te Other and unspecified benign neoplasm (13 sources) History of polyp of colon; Translations: [Personal history of colonic polyps] 10-11-2022 Episodic Other and unspecified benign neoplasm (3 sources) Personal history of colonic polyps; Translations: [Personal history of colonic polyps] Episodic Other and unspecified benign neoplasm (20 sources) Dysplastic nevus of skin; Translations: [Atypical nevus] 07-30-2022 Episodic Comment on above: he will followup 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 Francheska Alonzo DO Status:REG [facility] [place] Patient Name: Jung Aburto Procedure Date: 03/02/2025 6:49 AM Date of : 1945 Age: 79 Procedure: Upper GI endoscopy Indications: Heartburn, Yates's esophagus, Follow-up of Yates's esophagus Providers: David Parra DO Referring MD: Francheska Alonzo Medicines: Monitored Anesthesia Care Patient Profile: This is a 79 year old male. Patient has symptoms of chronic heartburn. Complications: [...] patient has taken no anticoagulant or antiplatelet agents except for NSAID medication. ASA Grade Assessment: II - A patient [...] and oxygen saturations were monitored continuously. The Endoscope was introduced through the mouth, and advanced to the second part of duodenum. The upper GI endoscopy was accomplished without difficulty. The patient tolerated the procedure well. Scope In: 7:03:13 AM Scope Out: 7:05:55 AM Total Procedure Duration Time 0 hours 2 minutes 42 seconds Findings: The Z-line was irregular and was found 42 cm from the incisors. Biopsies were taken with a cold forceps for histology. Verification of patient identification for the specimen was done. Estimated blood loss was minimal. A large hiatal hernia was present. No gross lesions were noted in the entire examined stomach. No gross lesions were noted in the entire examined duodenum. Impression: - Z-line irregular, 42 cm from the incisors. Biopsied. - Large hiatal hernia. - No gross lesions in the entire stomach. - No gross lesions in the entire examined duodenum. Recommendation: - Discharge patient to home. - Resume previous diet. - Continue present medications. - Await pathology results. Procedure Code(s): --- Professional --- 48749, Esophagogastroduodenosc opy, flexible, transoral; with biopsy, single or multiple CPT copyright 2021 [employer]. All rights reserved. The codes documented in this report are preliminary and upon incinerator attendant review may be revised to meet current compliance requirements. David Parra DO 03/02/2025 7:10:43 AM This report has been signed electronically. Number of Addenda: 0 Note Initiated On: 03/02/2025 6:49 AM 03/02/25 0711 Date David Parra DO Cosigner Signature: Date (if indicated) CC: Dr. Francheska Alonzo DO; David Parra DO Date Dictated: 03/02/25 0649 Date Transcribed: Form Maker Plaster: PRAVIN Signed [facility] MR/POSTOP.Zo 03-02-2025 MR/POSTOP.[facility] Medical Records Department [address] [address] Anesthesia Postop Eval I 03/02/25 0716 MR#: [id number] Acct: [id number] Name: JUNG ABURTO Rep #: [id number] : 1945 79 From: Leo Bloom PCP: Dr. Francheska Alonzo, DO Status:[facility] Y Race: C Location: [place] [address] Anesthesia: Postop Eval I Current Vital Signs Temperature: 97.9 F Pulse Rate: 68 Blood Pressure: 139/81 Respiratory Rate: 16 Pulse Ox: 98 Oxygen Delivery Method: Room Air Assessment Airway patent: Yes Spontaneous unlabored respirations: Yes Mental status: Awake nausea: No Vomiting: No Anesthesia Complication: No Fluid Hydration Crystalloid volume administer (ml): 300 Total IV fluid infused: 300 Progress Note Anesthesia document: Postop Eval 1 completed: Yes 03/02/25716 Date Leo Marcano Signature: Date CC: Signed Normal [facility] MR/[id number] 03-02-2025 [facility] Records Department [address] [facility] [place] [address] Anesthesia Postop Eval II 03/02/25 0848 MR#: [id number] Acct: [id number] Name: JUNG ABURTO Rep #: [id number] : 1945 79 From: Cheyenne Montiel CRNA PCP: Dr. Francheska Alonzo, DO Status:[facility] Y Race: C Location: [place] Anesthesia Postop Eval I Sum Postop Eval Completion status Anesthesia document: Postop Eval 1 completed: Yes Anesthesia Postop Eval I Summary Anesthesia Postop Eval I Summary: Anesthesia Postop Eval I: Assessment Summary Airway patent Yes 03/02/25 07:16 [email or web address] Spontaneous unlabored Yes 03/02/25 07:16 [email or web address] respirations Mental status Awake 03/02/25 07:16 [email or web address] nausea No 03/02/25 07:16 [email or web address] Vomiting No 03/02/25 07:16 [email or web address] Anesthesia Postop Eval I: Fluid Summary Crystalloid volume administer 300 03/02/25 07:16 [email or web address] (ml) Colloids volume administered ( ml) Blood Product volume administered (ml) Total IV fluid infused 300 03/02/25 07:16 [email or web address] Anesthesia Postop Eval I: Summary Notes Anesthesia Complication No 03/02/25 07:16 [email or web address] Anesthesia Complication Comment: Post-operative progress note Anesthesia: Postop Eval II Evaluation Mental status: Awake Pain Level: 0 nausea: No Vomiting: No 03/02/25 0848 Date Cheyenne Barajasignabi Signature: Date CC: Signed Normal [facility] MR/Augie 02-25-2025 MR/[facility] Medical Records Department [address] [place] [address] PAT - Anesthesia 02/25/25 1318 MR#: [id number] Acct: [id number] Name: LAMONTEJUNG DONOVANPH Rep #: [id number] : 1945 79 From: Miguelito Streeter MD PCP: Dr. Francheska Alonzo, DO Status:PRE [facility] [place] Y Race: C Location: EN Pre-Assessment Diagnosis/Proposed Procedure Planned Operative Procedure(s): egd Anesthesia History Anesthesia History - importer or exporter: Anesthesia History - importer or exporter Hx Hospitalization No 02/25/25 12:56 Any Problems [...] take am of surgery PONV PONV - importer or exporter: PONV - importer or exporter Female No 02/25/25 12:56 HX of Motion Sickness No 02/25/25 12:56 HX of N/V After Surgery No 02/25/25 12:56 Non-Smoker Yes 02/25/25 12:56 Duration of Surgery greater No 02/25/25 12:56 than 60 minutes Number of Risk Factors 1 02/25/25 12:56 PONV Score Low Risk 02/25/25 12:56 Height Weight Height Weight: Anesthesia: Height Weight Height 6 ft 05/10/24 10:25 Respiratory Assessment Respiratory Assessment - importer or exporter: Respiratory Tract Infection Hx - importer or exporter Hx Respiratory Tract Infection No 02/25/25 12:56 STOP Sleep Apnea STOP Sleep Apnea - importer or exporter: STOP Sleep Apnea - importer or exporter Hx Hypertension Yes: CONTROLLED WITH 02/25/25 12:56 [...] Tobacco Use History Tobacco Use History - importer or exporter: Tobacco Use History - importer or exporter Tobacco Use Smoking Status Never smoker 02/25/25 12:56 Hx Tobacco Use No 02/25/25 12:56 Years Smoking Packs Smoked per Day Smoking Cessation Date was within the last 15 years Hx Smoking Cessation Date Hx Smoking Cessation Counseling Hematologic Medial History Hematologic Hx - importer or exporter: 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 Normal [facility] Cardiology Visit Reporton Cardiology Visit Report [facility] [address] [place] [address] OFFICE VISIT Date of Service: 01/26/25 MR#: [id number] Acct: [id number] Name: JUNG ABURTO Rep #: [id number] : 1945 Provider: Dr. Petros Valdez MD Age/Sex: 79/M [place] [facility] Status: Signed HPI HPI History of Present [...] Monitor Intake Visit Reasons: 1 Y FU Dry Cell Tester Required: No Accompanied by: Self Is patient in pain?: No Allergies No Known Allergies Allergy (Verified 01/26/25 13:02) Medications ???Medication ???Instructions ???Recorded ???Confirmed ???Type coenzyme Q10 30 mg capsule 30 mg PO DAILY 05/21/16 01/26/25 H istory multivitamin 1 ea PO DAILY 05/21/16 01/26/25 51 Auto story cyanocobalamin (vitamin B-12) 2,000 mcg PO [...] 01/26/25 History mg-1,916 mg-1,000 mg efferves tab ([place] Original) lisinopril 5 mg tablet 5 mg PO DAILY #90 tabs 09/28/24 Rx vonoprazan 10 mg tablet (Voquezna) 10 mg PO QDAY 10/01/24 01/26/25 History omeprazole 40 mg capsule,delayed 40 mg PO QDAY #90 caps 10/16/24 Rx release Have you fallen in the past year?: No Nurse's Note: pt states no changes in meds [facility] Normal stress echocardiogram Gastritis Yates esophagus Wears glasses Alcohol use Arthritis Back [...] for diz (more content not included)... Normal [facility] Absolute lymphocyte countOrd ered By: [facility] on 12-23-2024 Lymphocytes Auto (Unsp spec) [#/Vol] 1.36 10*3/uL 0.83-4.51 [facility] Absolute neutrophil countOrd ered By: [facility] on 12-23-2024 Neutrophils (Bld) [#/Vol] 3.3 10*3/uL 2.0-7.7 [facility] Anion gap in Serum or Plasma Ordered By: [facility] on 12-23-2024 Anion gap [Moles/Vol] 11 mmol/L 5-15 [facility] Automated lymphocyte count a s percentage of total leukocytesOrdered By: [facility] on 12-23-2024 Lymphocytes/100 WBC Auto (Unsp spec) 24.8 % 19-41 [facility] BUN/creatinine ratioOrdered By: [facility] on 12-23-2024 Urea nitrogen/Creatinine [Mass ratio] 22.0 mg/mg High 10-20 [facility] Basophil percentageOrdered B y: [facility] on 12-23-2024 Basophils/100 WBC (Bld) 0.9 % 0-1 [facility] Bilirubin, totalOrdered By: [facility] on 12-23-2024 Bilirubin [Mass/Vol] 0.36 mg/dL 0.00-1.30 [facility] CBC W/Diff, Automatedon 12-08 Absolute Lymph 1.36 X10 3/uL Normal 0.83-4.51 [facility] Comment on above: Performed By: #### L 400.0001, L101.9900, L501.6710, L100.0100, L500.4050 #### [facility] [address] [place], [address] Absolute Neut 3.3 X10 3/uL Normal 2.0-7.7 [facility] Comment on above: Performed By: #### L 400.0001, L101.9900, L501.6710, L100.0100, L500.4050 #### [facility] [address] [place], [address] Basophils/100 WBC (Bld) 0.9 % Normal 0-1 [facility] Comment on above: Performed By: #### L 400.0001, L101.9900, L501.6710, L100.0100, L500.4050 #### [facility] [address] [place], [address] Eosinophils/100 WBC (Bld) 6.6 % High 0-5 [facility] Comment on above: Performed By: #### L 400.0001, L101.9900, L501.6710, L100.0100, L500.4050 #### [facility] [address] [place], [address] Erythrocyte distribution width (RBC) [Ratio] 12.6 % Normal 11.6-14.6 [facility] Comment on above: Performed By: #### L 400.0001, L101.9900, L501.6710, L100.0100, L500.4050 #### [facility] [address] [place], [address] Hematocrit (Bld) [Volume fraction] 42.5 % Normal 40-54 [facility] Comment on above: Performed By: #### L 400.0001, L101.9900, L501.6710, L100.0100, L500.4050 #### [facility] [address] [place], [address] Hemoglobin (Bld) [Mass/Vol] 15.1 g/dL Normal 13.0-16.5 [facility] Comment on above: Performed By: #### L 400.0001, L101.9900, L501.6710, L100.0100, L500.4050 #### [facility] [address] [place], [address] IG% 0.200 Normal 0.0-0.9 [facility] Comment on above: Result Comment: IG% - Immature Granulocytes (promyelocytes, myelocytes and metamyelocytes) > 1% indicates that a LEFT SHIFT is Present. Performed By: #### L 400.0001, L101.9900, L501.6710, L100.0100, L500.4050 #### [facility] [address] [place], [address] Lymphocytes/100 WBC (Bld) 24.8 % Normal 19-41 [facility] Comment on above: Performed By: #### L 400.0001, L101.9900, L501.6710, L100.0100, L500.4050 #### [facility] [address] [place], [address] MCH (RBC) [Entitic mass] 34.3 pg High 27.0-32.0 [facility] Comment on above: Performed By: #### L 400.0001, L101.9900, L501.6710, L100.0100, L500.4050 #### [facility] [address] [place], [address] MCHC (RBC) [Mass/Vol] 35.5 g/dL Normal 32-36 [facility] Comment on above: Performed By: #### L 400.0001, L101.9900, L501.6710, L100.0100, L500.4050 #### [facility] [address] [place], [address] MCV (RBC) [Entitic vol] 96.6 fL High 80-94 [facility] Comment on above: Performed By: #### L 400.0001, L101.9900, L501.6710, L100.0100, L500.4050 #### [facility] [address] [place], [address] Monocytes/100 WBC (Bld) 8.4 % Normal 0-10 [facility] Comment on above: Performed By: #### L 400.0001, L101.9900, L501.6710, L100.0100, L500.4050 #### [facility] [address] [place], [address] Neutrophils/100 WBC (Bld) 59.1 % Normal 47-70 [facility] Comment on above: Performed By: #### L 400.0001, L101.9900, L501.6710, L100.0100, L500.4050 #### [facility] [address] [place], [address] Nucleated RBC (Bld) [#/Vol] 0 10*3/uL Normal 0-5 [facility] Comment on above: Performed By: #### L 400.0001, L101.9900, L501.6710, L100.0100, L500.4050 #### [facility] [address] [place], [address] Platelet mean volume (Bld) [Entitic vol] 11.3 fL Normal 6.2-12.0 [facility] Comment on above: Performed By: #### L 400.0001, L101.9900, L501.6710, L100.0100, L500.4050 #### [facility] [address] [place], [address] Platelets (Bld) [#/Vol] 188 10*3/uL Normal 150-450 [facility] Comment on above: Performed By: #### L 400.0001, L101.9900, L501.6710, L100.0100, L500.4050 #### [facility] [address] [place], [address] RBC (Bld) [#/Vol] 4.40 10*6/uL Low 4.6-6.2 [facility] Comment on above: Performed By: #### L 400.0001, L101.9900, L501.6710, L100.0100, L500.4050 #### [facility] [address] [place], [address] RDW SD 45.0 fl High 35.1-43.9 [facility] Comment on above: Performed By: #### L 400.0001, L101.9900, L501.6710, L100.0100, L500.4050 #### [facility] [address] [place], [address] WBC (Bld) [#/Vol] 5.5 10*3/uL Normal 4.4-11.0 [facility] Comment on above: Performed By: #### L 400.0001, L101.9900, L501.6710, L100.0100, L500.4050 #### [facility] [address] [place], [address] Calculated very low density lipoprotein (VLDL) cholesterol measurementOrdered By: Francheska Fast on 12-23-2024 Calculated very low density lipoprotein (VLDL) cholesterol measurement 19 mg/dL - [facility] VLDL Cholesterol 19 mg/dL [facility] Carbon dioxide, total [Moles /volume] in Central venous bloodOrdered By: Francheska Fast on 12-23-2024 CO2 [Moles/Vol] 22.7 mmol/L 21.0-32.0 [facility] Chloride assayOrdered By: De bra Fast on 12-23-2024 Chloride [Moles/Vol] 105 mmol/L 98-108 [facility] Comprehensive Metabolic Prof ilon 12-23-2024 Albumin [Mass/Vol] 4.4 g/dL Normal 3.4-4.8 [facility] Comment on above: Performed By: #### L 400.0001, L101.9900, L501.6710, L100.0100, L500.4050 #### [facility] [address] [place], [address] Albumin/Globulin [Mass ratio] 1.7 {ratio} Normal 0.9-2.4 [facility] Comment on above: Performed By: #### L 400.0001, L101.9900, L501.6710, L100.0100, L500.4050 #### [facility] [address] [place], [address] ALK PHOS 82 U/L Normal 40-129 [facility] Comment on above: Performed By: #### L 400.0001, L101.9900, L501.6710, L100.0100, L500.4050 #### [facility] [address] [place], [address] ALT [Catalytic activity/Vol] 19 U/L Normal <=46 [facility] Comment on above: Performed By: #### L 400.0001, L101.9900, L501.6710, L100.0100, L500.4050 #### [facility] [address] [place], [address] AST [Catalytic activity/Vol] 25 U/L Normal <=37 [facility] Comment on above: Performed By: #### L 400.0001, L101.9900, L501.6710, L100.0100, L500.4050 #### [facility] [address] [place], [address] Bilirubin [Mass/Vol] 0.36 mg/dL Normal 0.00-1.30 [facility] Comment on above: Performed By: #### L 400.0001, L101.9900, L501.6710, L100.0100, L500.4050 #### [facility] [address] [place], [address] BUN/CRE 22.0 RATIO High 10-20 [facility] Comment on above: Performed By: #### L 400.0001, L101.9900, L501.6710, L100.0100, L500.4050 #### [facility] [address] [place], [address] Calcium [Mass/Vol] 9.5 mg/dL Normal 7.6-11.0 [facility] Comment on above: Performed By: #### L 400.0001, L101.9900, L501.6710, L100.0100, L500.4050 #### [facility] [address] [place], [address] Chloride [Moles/Vol] 105 mmol/L Normal 98-108 [facility] Comment on above: Performed By: #### L 400.0001, L101.9900, L501.6710, L100.0100, L500.4050 #### [facility] [address] [place], [address] CO2 [Moles/Vol] 22.7 mmol/L Normal 21.0-32.0 [facility] Comment on above: Performed By: #### L 400.0001, L101.9900, L501.6710, L100.0100, L500.4050 #### [facility] [address] [place], [address] Creatinine [Mass/Vol] 0.93 mg/dL Normal 0.70-1.20 [facility] Comment on above: Performed By: #### L 400.0001, L101.9900, L501.6710, L100.0100, L500.4050 #### [facility] [address] [place], [address] GAP 11 Normal 5-15 [facility] Comment on above: Performed By: #### L 400.0001, L101.9900, L501.6710, L100.0100, L500.4050 #### [facility] [address] [place], [address] GFR/1.73 sq M.predicted among non-blacks MDRD (S/P/Bld) [Vol rate/Area] 84 mL/min/{1.73_m2} Normal >60 [facility] Comment on above: Result Comment: mL/m in/1.73m2 CKD-EPI Creatinine Equation (2020) Performed By: #### L 400.0001, L101.9900, L501.6710, L100.0100, L500.4050 #### [facility] [address] [place], [address] Globulin (S) [Mass/Vol] 2.6 g/dL Normal 2.2-4.2 [facility] Comment on above: Performed By: #### L 400.0001, L101.9900, L501.6710, L100.0100, L500.4050 #### [facility] [address] [place], [address] Glucose [Mass/Vol] 83 mg/dL Normal 70-99 [facility] Comment on above: Performed By: #### L 400.0001, L101.9900, L501.6710, L100.0100, L500.4050 #### [facility] [address] [place], [address] Potassium [Moles/Vol] 4.6 mmol/L Normal 3.3-5.1 [facility] Comment on above: Result Comment: Hemo lysis present, Results??could be affected. ?? Performed By: #### L 400.0001, L101.9900, L501.6710, L100.0100, L500.4050 #### [facility] [address] [place], [address] Sodium [Moles/Vol] 139 mmol/L Normal 133-145 [facility] Comment on above: Performed By: #### L 400.0001, L101.9900, L501.6710, L100.0100, L500.4050 #### [facility] [address] [place], [address] T PROT 7.0 g/dL Normal 5.9-8.4 [facility] Comment on above: Performed By: #### L 400.0001, L101.9900, L501.6710, L100.0100, L500.4050 #### [facility] [address] [place], [address] Urea nitrogen [Mass/Vol] 21 mg/dL High 4-19 [facility] Comment on above: Performed By: #### L 400.0001, L101.9900, L501.6710, L100.0100, L500.4050 #### [facility] [address] [place], [address] Eosinophil percentageOrdered By: Francheska Fast on 12-23-2024 Eosinophils/100 WBC (Bld) 6.6 % High 0-5 [facility] Erythrocyte distribution wid th (RBC) [Ratio]Ordered By: Francheska Fast on 12-23-2024 Erythrocyte distribution width (RBC) [Entitic vol] 45.0 fL High 35.1-43.9 [facility] Erythrocyte distribution wid th ratioOrdered By: Francheska Fast on 12-23-2024 Erythrocyte distribution width (RBC) [Ratio] 12.6 % 11.6-14.6 [facility] Erythrocyte distribution wid th standard deviationOrdered By: Francheska Fast on 12-23-2024 Erythrocyte distribution width (RBC) [Ratio] 45.0 fl High 35.1-43.9 [facility] Folate [Mass/Vol]Ordered By: Francheska Fast on 12-23-2024 Serum Folate 39.30 ng/mL High 4.60-34.80 [facility] Comment on above: Hemolysis, Results w ill be affected, Requires Recollection. Folate [Mass/volume] in Seru m or PlasmaOrdered By: Francheska Alonzo on 12-23-2024 Folate [Mass/Vol] 39.30 ng/mL High 4.60-34.80 [facility] Comment on above: Hemolysis, Results w ill be affected, Requires Recollection. Folates,Serum (Folic Acid)on 12-23-2024 FOLATES,SERUM 39.30 ng/mL High 4.60-34.80 [facility] Comment on above: Order Comment: N Result Comment: Hemo lysis, Results will be affected, Requires Recollection. Performed By: #### L 400.0001, L101.9900, L501.6710, L100.0100, L500.4050 #### [facility] [address] [place], [address] GFR/1.73 sq M.predicted shyla g non-blacks MDRD (S/P/Bld) [Vol rate/Area]Ordered By: Francheska Alonzo on 12-23-2024 Estimated GFR (MDRD) Non-Af Amer 84 >60 [facility] Comment on above: mL/min/1.73m2 CKD-EP I Creatinine Equation (2020) Glomerular filtration rate ( GFR) estimation/1.73 sq m using serum, plasma, or whole bOrdered By: Francheska Alonzo on 12-23-2024 GFR/1.73 sq M.predicted among non-blacks MDRD (S/P/Bld) [Vol rate/Area] 84 mL/min/{1.73_m2} >60 [facility] Comment on above: mL/min/1.73m2 CKD-EP I Creatinine Equation (2020) Hematocrit Auto (Bld) [Volum e fraction]Ordered By: Francheska Alonzo on 12-23-2024 Hematocrit (Bld) [Volume fraction] 42.5 % 40-54 [facility] Hemoglobin measurementOrdere d By: Francheska on 12-23-2024 Hemoglobin (Bld) [Mass/Vol] 15.1 g/dL 13.0-16.5 [facility] Immature granulocytes/100 WB C Auto (Bld)Ordered By: Francheska on 12-23-2024 Immature granulocytes/100 WBC (Bld) 0.200 % 0.0-0.9 [facility] Comment on above: IG% - Immature Granu locytes (promyelocytes, myelocytes and metamyelocytes) > 1% indicates that a LEFT SHIFT is Present. LDL calc ser/plasOrdered By: Francheska Clinton on 12-23-2024 Cholesterol in LDL [Mass/Vol] 100 mg/dL [facility] Comment on above: Wysspryffd=022-075 m g/dL & Higher Bdbz=298 mg/dL or greater LDL Cholesterol, Calculated 100 mg/dL [facility] Comment on above: Yomwxozvtr=391-241 m g/dL & Higher Eqvt=845 mg/dL or greater Laboratory - Chemistry and C hemistry - challengeOrdered By: Francheska on 12-23-2024 AST [Catalytic activity/Vol] 25 U/L <38 [facility] Lipid Profileon 12-23-2024 CHOL:HDL 2.52 Normal [facility] Comment on above: Performed By: #### L 400.0001, L101.9900, L501.6710, L100.0100, L500.4050 #### [facility] [address] [facility] [facility] [place], [address] Cholesterol [Mass/Vol] 198 mg/dL Normal <=200 [facility] Comment on above: Result Comment: Chol esterol level, Desirable <200 mg/dL Borderline high cholesterol 200-239 mg/dL High cholesterol >=240 mg/dL Recommendations of the NCEP Adult Treatment Panel for the following risk-cutoff thresholds for the [place] population. Performed By: #### L 400.0001, L101.9900, L501.6710, L100.0100, L500.4050 #### [facility] [address] [place], [address] Cholesterol in HDL [Mass/Vol] 79 mg/dL Normal [facility] Comment on above: Result Comment: Leny onal Cholesterol Education Program (NCEP) guidelines: <40 mg/dL: Low HDL-cholesterol (major risk factor for CHD) >= 60 mg/dL: High HDL-cholesterol (negative risk factor for CHD) HDL-cholesterol is affected by a number of factors, e.g. smoking, exercise, hormones, sex and age. Performed By: #### L 400.0001, L101.9900, L501.6710, L100.0100, L500.4050 #### [facility] [address] [place], [address] Cholesterol in LDL [Mass/Vol] 100 mg/dL Normal [facility] Comment on above: Result Comment: Bord kiubfp=663-575 mg/dL Higher Eqia=989 mg/dL or greater Performed By: #### L 400.0001, L101.9900, L501.6710, L100.0100, L500.4050 #### [facility] [address] [place], [address] Cholesterol in VLDL [Mass/Vol] 19 mg/dL Normal 5-40 [facility] Comment on above: Performed By: #### L 400.0001, L101.9900, L501.6710, L100.0100, L500.4050 #### [facility] [address] [place], [address] Triglyceride [Mass/Vol] 97 mg/dL Normal [facility] Comment on above: Result Comment: The drugs N-Acetylcysteine and Metamizole may falsely depress this assay. Normal range: <150 mg/dL Borderline High: 150-199 mg/dL High: 200-499 mg/dL Very High: >500 mg/dL Performed By: #### L 400.0001, L101.9900, L501.6710, L100.0100, L500.4050 #### [facility] [address] [place], [address] Lymphocytes Auto (Unsp spec) [#/Vol]Ordered By: Francheska Fast on 12-23-2024 Lymphocytes (Bld) [#/Vol] 1.36 10*3/uL 0.83-4.51 [facility] Lymphocytes/100 WBC Auto (Un sp spec)Ordered By: Francheska Fast on 12-23-2024 Lymphocytes/100 WBC (Bld) 24.8 % 19-41 [facility] MCV (mean corpuscular volume ) determinationOrdered By: Francheska Fast on 12-23-2024 MCV (RBC) [Entitic vol] 96.6 fL High 80-94 [facility] Mean corpuscular hemoglobin (MCH) determinationOrdered By: Francheska on 12-23-2024 MCH (RBC) [Entitic mass] 34.3 pg High 27.0-32.0 [facility] Mean corpuscular hemoglobin concentration (MCHC) determinationOrdered By: Francheska Fast on 12-23-2024 MCHC (RBC) [Mass/Vol] 35.5 g/dL 32-36 [facility] Mean platelet volume determi nationOrdered By: Francheska Fast on 12-23-2024 Platelet mean volume (Bld) [Entitic vol] 11.3 fL 6.2-12.0 [facility] Monocyte percentageOrdered B y: Francheska Fast on 12-23-2024 Monocytes/100 WBC (Bld) 8.4 % 0-10 [facility] Neutrophil percentageOrdered By: Francheska Fast on 12-23-2024 Neutrophils/100 WBC (Bld) 59.1 % 47-70 [facility] Nucleated red blood cell per centageOrdered By: on 12-23-2024 Nucleated RBC/100 WBC (Bld) [Ratio] 0 % 0-5 [facility] Platelet countOrdered By: De chrissy on 12-23-2024 Platelets (Bld) [#/Vol] 188 10*3/uL 150-450 [facility] Potassium (Unsp spec) [Mass/ Vol]Ordered By: Francheska Fast on 12-23-2024 Potassium [Moles/Vol] 4.6 mmol/L 3.3-5.1 [facility] Comment on above: Hemolysis present, R esults could be affected. Potassium measurement (mass/ volume)Ordered By: Francheska12-23-2024 Potassium (Unsp spec) [Mass/Vol] 4.6 mmol/L 3.3-5.1 [facility] Comment on above: Hemolysis present, R esults could be affected. RBC Auto (Bld) [#/Vol]Ordere d By: on 12-23-2024 RBC (Bld) [#/Vol] 4.40 10*6/uL Low 4.6-6.2 [facility] Screening total cholesterol/ high density lipoprotein (HDL) cholesterol ratioOrdered By: on 12-23-2024 Cholesterol.total/Cho lesterol in HDL [Mass ratio] 2.52 {ratio} [facility] Serum creatinine measurement (mass/volume)Ordered By: on 12-23-2024 Creatinine [Mass/Vol] 0.93 mg/dL 0.70-1.20 [facility] Serum globulin measurementOr dered By: 12-23-2024 Globulin (S) [Mass/Vol] 2.6 g/dL 2.2-4.2 [facility] Serum glucose measurement (m ass/volume)Ordered By: 12-23-2024 Glucose [Mass/Vol] 83 mg/dL 70-99 [facility] Serum or plasma alanine nichole otransferase (ALT) measurementOrdered By: 12-23-2024 ALT [Catalytic activity/Vol] 19 U/L <47 [facility] Serum or plasma albumin pauline urement (mass/volume)Ordered By: 12-23-2024 Albumin [Mass/Vol] 4.4 g/dL 3.4-4.8 [facility] Serum or plasma albumin/glob ulin mass ratioOrdered By: 12-23-2024 Albumin/Globulin [Mass ratio] 1.7 {ratio} 0.9-2.4 [facility] Serum or plasma alkaline fabby sphatase measurementOrdered By: 12-23-2024 ALP [Catalytic activity/Vol] 82 U/L 40-129 [facility] Serum or plasma calcium pauline urement (mass/volume)Ordered By: 12-23-2024 Calcium [Mass/Vol] 9.5 mg/dL 7.6-11.0 [facility] Serum or plasma cholesterol in HDL measurement (mass/volume)Ordered By: 12-23-2024 Cholesterol in HDL [Mass/Vol] 79 mg/dL >40 [facility] Comment on above: National Cholesterol Education Program (NCEP) guidelines:<40 mg/dL: Low HDL-cholesterol (major risk factor for CHD)>= 60 mg/dL: High HDL-cholesterol (negative risk factor for CHD)HDL-cholesterol is affected by a number of factors, e.g. smoking, exercise, hormones, sex and age. Serum or plasma cholesterol measurement (mass/volume)Ordered By: Francheska Fast on 12-23-2024 Cholesterol [Mass/Vol] 198 mg/dL <201 [facility] Comment on above: Cholesterol level, D esirable <200 mg/dLBorderline high cholesterol 200-239 mg/dLHigh cholesterol >=240 mg/dLRecommendations of the NCEP Adult Treatment Panel for the following risk-cutoff thresholds for the [place] population. Serum or plasma urea nitroge n measurement (mass/volume)Ordered By: Francheska Fast on 12-23-2024 Urea nitrogen [Mass/Vol] 21 mg/dL High 4-19 [facility] Sodium levelOrdered By: Debr a Fast on 12-23-2024 Sodium [Moles/Vol] 139 mmol/L 133-145 [facility] Total proteinOrdered By: Faby ra Fast on 12-23-2024 Protein [Mass/Vol] 7.0 g/dL 5.9-8.4 [facility] Triglycerides measurementOrd ered By: Francheska Fast on 12-23-2024 Triglyceride [Mass/Vol] 97 mg/dL <199 [facility] Comment on above: The drugs N-Acetylcy steine and Metamizole may falsely depress this assay. Normal range: <150 mg/dLBorderline High: 150-199 mg/dLHigh: 200-499 mg/dLVery High: >500 mg/dL Vitamin B12on 12-23-2024 Cobalamin (Vitamin B12) [Mass/Vol] 3130 pg/mL High 180-914 [facility] Comment on above: Performed By: #### L 400.0001, L101.9900, L501.6710, L100.0100, L500.4050 #### [facility] [address] [place], [address] Vitamin B12 ser/plasOrdered By: Francheska Fast on 12-23-2024 Cobalamin (Vitamin B12) [Mass/Vol] 3130 pg/mL High 180-914 [facility] Vitamin D, 25-hydroxyOrdered By: Francheska Alonzo on 12-23-2024 Vitamin D 25-Hydroxy 99.4 ng/mL 30-100 [facility] Comment on above: Vitamin D StatusDefi ciency: <20 ng/mL (50nmol/L)Insufficiency: 20-30 ng/mL (50-75 nmol/L)Sufficiency: 30-100 ng/mL (75-250 nmol/L)Toxicity: >100 ng/mL (>250 nmol/L) Vitamin D,25 Hydroxyon 12-23 Vitamin D 25-OH 99.4 ng/mL Normal 30-100 [facility] Comment on above: Result Comment: Lore min D Status Deficiency: <20 ng/mL (50nmol/L) Insufficiency: 20-30 ng/mL (50-75 nmol/L) Sufficiency: 30-100 ng/mL (75-250 nmol/L) Toxicity: >100 ng/mL (>250 nmol/L) Performed By: #### L 400.0001, L101.9900, L501.6710, L100.0100, L500.4050 #### [facility] [address] [place], [address] White blood cell (WBC) count Ordered By: Francheska Alonzo on 12-23-2024 WBC (Bld) [#/Vol] 5.5 10*3/uL 4.4-11.0 [facility] Gastroenterology Visit Repor ton 12-17-2024 Gastroenterology Visit Report [facility] [address] [place] [address] OFFICE VISIT Date of Service: 12/17/24 MR#: [id number] Acct: [id number] Name: LAMONTEJUNG KEN Rep #: [id number] : 1945 Provider: David Parra DO Age/Sex: 79/M Location: [facility] [place] Status: Signed Intake Vital Signs 05/10/24 10:25 [...] 12/17/24 History mg-1,916 mg-1,000 mg efferves tab (Maryjane-[place] Original) sulfamethoxazole 800 1 tab PO DAILY [...] any questions or concerns at this time. 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 Biopsied. Small hiatal hernia. Normal stomach. [...] like another EGD to check on his Yates's esophagus. ROS Const Constitutional: Positive for fatigue; No fever(s) or weight change ENT ENT: Positive for difficulty swallowing Gastro GI: Positive for heartburn and difficulty swallowing; No abdominal pain, belching, bloating, ch (more content not included)... Normal [facility] Gastroenterology Visit Repor ton 10-01-2024 Gastroenterology Visit Report [facility] [address] [place] [address] OFFICE VISIT Date of Service: 10/01/24 MR#: [id number] Acct: [id number] Name: JUNG ABURTO Rep #: [id number] : 1945 Provider: David Parra DO Age/Sex: 79/M [place] [facility] Status: Signed Intake Vital Signs 05/10/24 [...] 10/01/24 History mg-1,916 mg-1,000 mg efferves tab (Maryjane-[place] Original) sulfamethoxazole 800 1 tab PO DAILY [...] PFSH Medical History Normal stress echocardiogram Gastritis Yates esophagus Wears glasses Alcohol use Arthritis Back [...] 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 Biopsied. Small hiatal hernia. Normal stomach. No gross lesions in the first portion of the duodenum. OV 7.24 pt reports that he is feeling well overall and denies GI symptoms of concern at this time. Pt reports that about 4 weeks ago he was diagnosed with Lyme disease, and has lost about 8 lbs since. Continues with dexilant. abd/pelvis CT 9.10.02 1. Prominent prostate enlargement. Possible bladder wall thickening although bladder is suboptimally evaluated by not being distended. 2. Moderate to marked dif fuse fecal retention. OV 10.01.24 pt reports that [...] Tang/Lymp Hematologic/Lymphatic (more content not included)... Normal [facility] CBC W/Diff, Automatedon 10-2 Absolute Lymph 1.27 X10 3/uL Normal 0.83-4.51 [facility] Comment on above: Performed By: #### L 506.1000, L501.9910, L500.4100 #### [facility] [address] [place], [address] Absolute Neut 4.2 X10 3/uL Normal 2.0-7.7 [facility] Comment on above: Performed By: #### L 506.1000, L501.9910, L500.4100 #### [facility] [address] [place], [address] Basophils/100 WBC (Bld) 0.8 % Normal 0-1 [facility] Comment on above: Performed By: #### L 506.1000, L501.9910, L500.4100 #### [facility] [address] [place], [address] Eosinophils/100 WBC (Bld) 4.9 % Normal 0-5 [facility] Comment on above: Performed By: #### L 506.1000, L501.9910, L500.4100 #### [facility] [address] [place], [address] Erythrocyte distribution width (RBC) [Ratio] 12.8 % Normal 11.6-14.6 [facility] Comment on above: Performed By: #### L 506.1000, L501.9910, L500.4100 #### [facility] [address] [place], [address] Hematocrit (Bld) [Volume fraction] 43.9 % Normal 40-54 [facility] Comment on above: Performed By: #### L 506.1000, L501.9910, L500.4100 #### [facility] [address] [place], [address] Hemoglobin (Bld) [Mass/Vol] 15.1 g/dL Normal 13.0-16.5 [facility] Comment on above: Performed By: #### L 506.1000, L501.9910, L500.4100 #### [facility] [address] [place], [address] IG% 0.200 Normal 0.0-0.9 [facility] Comment on above: Result Comment: IG% - Immature Granulocytes (promyelocytes, myelocytes and metamyelocytes) > 1% indicates that a LEFT SHIFT is Present. Performed By: #### L 506.1000, L501.9910, L500.4100 #### [facility] [address] [place], [address] Lymphocytes/100 WBC (Bld) 20.1 % Normal 19-41 [facility] Comment on above: Performed By: #### L 506.1000, L501.9910, L500.4100 #### [facility] [address] [place], [address] MCH (RBC) [Entitic mass] 33.6 pg High 27.0-32.0 [facility] Comment on above: Performed By: #### L 506.1000, L501.9910, L500.4100 #### [facility] [address] [place], [address] MCHC (RBC) [Mass/Vol] 34.4 g/dL Normal 32-36 [facility] Comment on above: Performed By: #### L 506.1000, L501.9910, L500.4100 #### [facility] [address] [place], [address] MCV (RBC) [Entitic vol] 97.6 fL High 80-94 [facility] Comment on above: Performed By: #### L 506.1000, L501.9910, L500.4100 #### [facility] [address] [place], [address] Monocytes/100 WBC (Bld) 7.8 % Normal 0-10 [facility] Comment on above: Performed By: #### L 506.1000, L501.9910, L500.4100 #### [facility] [address] [place], [address] Neutrophils/100 WBC (Bld) 66.2 % Normal 47-70 [facility] Comment on above: Performed By: #### L 506.1000, L501.9910, L500.4100 #### [facility] [address] [place], [address] Nucleated RBC (Bld) [#/Vol] 0 10*3/uL Normal 0-5 [facility] Comment on above: Performed By: #### L 506.1000, L501.9910, L500.4100 #### [facility] [address] [place], [address] Platelet mean volume (Bld) [Entitic vol] 10.8 fL Normal 6.2-12.0 [facility] Comment on above: Performed By: #### L 506.1000, L501.9910, L500.4100 #### [facility] [address] [place], [address] Platelets (Bld) [#/Vol] 205 10*3/uL Normal 150-450 [facility] Comment on above: Performed By: #### L 506.1000, L501.9910, L500.4100 #### [facility] [address] [place], [address] RBC (Bld) [#/Vol] 4.50 10*6/uL Low 4.6-6.2 [facility] Comment on above: Performed By: #### L 506.1000, L501.9910, L500.4100 #### [facility] [address] [place], [address] RDW SD 45.9 fl High 35.1-43.9 [facility] Comment on above: Performed By: #### L 506.1000, L501.9910, L500.4100 #### [facility] [address] [place], [address] WBC (Bld) [#/Vol] 6.3 10*3/uL Normal 4.4-11.0 [facility] Comment on above: Performed By: #### L 506.1000, L501.9910, L500.4100 #### [facility] [address] [place], [address] Comprehensive Metabolic Prof ilon 07-02-2024 Albumin [Mass/Vol] 3.9 g/dL Normal 3.2-5.0 [facility] Comment on above: Performed By: #### L 506.1000, L501.9910, L500.4100 #### [facility] [address] [place], [address] Albumin/Globulin [Mass ratio] 1.2 {ratio} Normal 0.9-2.4 [facility] Comment on above: Performed By: #### L 506.1000, L501.9910, L500.4100 #### [facility] [address] [place], [address] ALK P 75 U/L Normal 45-117 [facility] Comment on above: Performed By: #### L 506.1000, L501.9910, L500.4100 #### [facility] [address] [place], [address] ALT [Catalytic activity/Vol] 23 U/L Normal 16-61 [facility] Comment on above: Performed By: #### L 506.1000, L501.9910, L500.4100 #### [facility] [address] [place], [address] AST [Catalytic activity/Vol] 20 U/L Normal 15-37 [facility] Comment on above: Performed By: #### L 506.1000, L501.9910, L500.4100 #### [facility] [address] [place], [address] Bilirubin [Mass/Vol] 0.50 mg/dL Normal 0.20-1.00 [facility] Comment on above: Result Comment: For patients on eltrombopag therapy, use of Dimension [place] TBIL is not recommended. Performed By: #### L 506.1000, L501.9910, L500.4100 #### [facility] [address] [place], [address] BUN/CRE 29.8 RATIO High 10-20 [facility] Comment on above: Performed By: #### L 506.1000, L501.9910, L500.4100 #### [facility] [address] [place], [address] CA,Total 9.3 mg/dL Normal 8.5-10.1 [facility] Comment on above: Performed By: #### L 506.1000, L501.9910, L500.4100 #### [facility] [address] [place], [address] Chloride [Moles/Vol] 107 mmol/L Normal 98-107 [facility] Comment on above: Performed By: #### L 506.1000, L501.9910, L500.4100 #### [facility] [address] [place], [address] CO2 [Moles/Vol] 27.0 mmol/L Normal 21.0-32.0 [facility] Comment on above: Performed By: #### L 506.1000, L501.9910, L500.4100 #### [facility] [address] [place], [address] Creatinine [Mass/Vol] 0.84 mg/dL Normal 0.70-1.30 [facility] Comment on above: Result Comment: The validity of the calculated GFR GFRAA in patients over 70 years has not been determined. Clinical correlation is essential. Performed By: #### L 506.1000, L501.9910, L500.4100 #### [facility] [address] [place], [address] EST GFR - AA 113 mL/min Normal >60 [facility] Comment on above: Result Comment: Afri can [place] GFR Calc Performed By: #### L 506.1000, L501.9910, L500.4100 #### [facility] [address] [place], [address] GAP 5 Normal 5-15 [facility] Comment on above: Performed By: #### L 506.1000, L501.9910, L500.4100 #### [facility] [address] [place], [address] GFR/1.73 sq M.predicted among non-blacks MDRD (S/P/Bld) [Vol rate/Area] 94 mL/min/{1.73_m2} Normal >60 [facility] Comment on above: Result Comment: Non- GFR Calc Performed By: #### L 506.1000, L501.9910, L500.4100 #### [facility] [address] [place], [address] Globulin (S) [Mass/Vol] 3.2 g/dL Normal 2.2-4.2 [facility] Comment on above: Performed By: #### L 506.1000, L501.9910, L500.4100 #### [facility] [address] [place], [address] Glucose [Mass/Vol] 89 mg/dL Normal 74-106 [facility] Comment on above: Performed By: #### L 506.1000, L501.9910, L500.4100 #### [facility] [address] [place], [address] Potassium [Moles/Vol] 4.2 mmol/L Normal 3.5-5.1 [facility] Comment on above: Performed By: #### L 506.1000, L501.9910, L500.4100 #### [facility] [address] [place], [address] Sodium [Moles/Vol] 139 mmol/L Normal 136-145 [facility] Comment on above: Performed By: #### L 506.1000, L501.9910, L500.4100 #### [facility] [address] [place], [address] T PROT 7.1 g/dL Normal 6.4-8.2 [facility] Comment on above: Performed By: #### L 506.1000, L501.9910, L500.4100 #### [facility] [address] [place], [address] Urea nitrogen [Mass/Vol] 25 mg/dL High 7-18 [facility] Comment on above: Performed By: #### L 506.1000, L501.9910, L500.4100 #### [facility] [address] [place], [address] Lipid Profileon 07-02-2024 Cholesterol [Mass/Vol] 201 mg/dL High 200 [facility] Comment on above: Result Comment: <200 mg/dL Desirable 200-240 mg/dL Borderline >240 mg/dL High Risk Performed By: #### L 506.1000, L501.9910, L500.4100 #### [facility] [address] [place], [address] Cholesterol in HDL [Mass/Vol] 85 mg/dL Normal [facility] Comment on above: Result Comment: The drugs N-Acetylcysteine and Metamizole may falsely depress this assay. Reference Range HDL <40 mg/dL Low HDL Cholesterol HDL >or= 60 mg/dL High HDL Cholesterol Performed By: #### L 506.1000, L501.9910, L500.4100 #### [facility] [address] [place], [address] Cholesterol in LDL [Mass/Vol] 103 mg/dL Normal 0-130 [facility] Comment on above: Performed By: #### L 506.1000, L501.9910, L500.4100 #### [facility] [address] [place], [address] Cholesterol in VLDL [Mass/Vol] 13 mg/dL Normal 5-40 [facility] Comment on above: Performed By: #### L 506.1000, L501.9910, L500.4100 #### [facility] [address] [place], [address] Triglyceride [Mass/Vol] 63 mg/dL Normal [facility] Comment on above: Result Comment: The drugs N-Acetylcysteine and Metamizole may falsely depress this assay. Serum Triglycerides Reference Interval Normal <150 mg/dL Borderline high 150 - 199 mg/dL High 200 - 499 mg/dL Very High > or = 500 mg/dL Performed By: #### L 506.1000, L501.9910, L500.4100 #### [facility] [address] [place], [place], [address] Vitamin D,25 Hydroxyon 07-02 Vitamin D 25-OH 38.5 ng/mL Normal [facility] Comment on above: Result Comment: Lore min D 25(OH) Status Range Deficiency <20 ng/mL (50nmol/L) Insufficiency 20 - 30 ng/mL (50 - 75 nmol/L) Sufficiency 30 - 100 ng/mL (75 - 250 nmol/L) Toxicity >100 ng/mL (>250 nmol/L) Performed By: #### L 506.1000, L501.9910, L500.4100 #### [facility] [address] [place], [place], [address] CRPon 06-22-2024 C-REACTIVE PROT < 2.90 Normal 0.0-3.0 [facility] Comment on above: Result Comment: C-Re active Protein (CRP) provides useful information for the diagnosis, therapy and monitoring of inflammatory processes and associated diseases. For the evaluation of Relative Risk for Cardiovascular Disease, a High Sensitivity CRP (HSCRP) should be ordered. Performed By: #### L 506.1000, L501.9910, L500.4100 #### [facility] [address] [place], [address] Erythrocyte Sed Rateon 06-225 SED RATE 2 mm/hr Normal 0-20 [facility] Comment on above: Performed By: #### L 506.1000, L501.9910, L500.4100 #### [facility] [address] [place], [place], [id number] [phone], Blood (WB)on 2023 CUB Blood cultures x2, f rom two different sites No growth in 5 days. Normal [facility] Comment on above: Performed By: #### L 506.1000, L501.9910, L500.4100 #### [facility] [address] [place], [address] Urine Cultureon 05-11-2024 URC Culture exhibits no growth. Normal [facility] Comment on above: Performed By: #### L 506.1000, L501.9910, L500.4100 #### [facility] [address] [place], [address] Abdomen/Pelvis W IV Cont ONL Yon 05-10-2024 Abdomen/Pelvis W IV Cont ONLY [facility] [address] [place] [address] Abdomen/Pelvis W IV Cont ONLY MR#: [id number] Acct: [id number] Name: JUNG ABURTO Rep #: [id number] : 1945 M 79 From: George rosen MD PCP: Dr. Francheska Alonzo, DO Status: DEP ER Study: Abdomen/Pelvis W IV Cont ONLY Date of Exam: Exam# [id number] Ordering Dr: Mal Aleman DO ADDENDUM by Dr. George Garsia MD on 05/18/24 at 1544 ==== ADDENDUM ==== [id number] No follow-up is recommended for right renal cyst. Electronically Signed: George Garsia MD at 15:44 EDT , 05/18/24 1544 Date cc: Dr. Mal Aleman DO; Dr. Francheska Alonzo DO * Signed ADDENDUM by Dr. George Garsia MD on 05/18/[address]/Abdomen/Pelvis W IV Cont ONLY IMPRESSION: undefined 05/18/24 1551 Date cc: Dr. Mal Aleman DO; Dr. Francheska Alonzo DO * Signed [id number] EXAM: CT ABDOMEN AND PELVIS WITH INTRAVENOUS [...] Mal Aleman, DO; Dr. Francheska Alonzo, DO Form Maker Plaster: Signed Normal [facility] CBC W/Diff, Automatedon 09-0 Absolute Lymph 1.13 X10 3/uL Normal 0.83-4.51 [facility] Comment on above: Performed By: #### L 500.4050, L100.0100 #### [facility] [address] [facility] [address] Absolute Neut 14.4 X10 3/uL High 2.0-7.7 [facility] Comment on above: Performed By: #### L 500.4050, L100.0100 #### [facility] [address] [facility] [address] Basophils/100 WBC (Bld) 0.3 % Normal 0-1 [facility] Comment on above: Performed By: #### L 500.4050, L100.0100 #### [facility] [address] [place], [address] Eosinophils/100 WBC (Bld) 0.4 % Normal 0-5 [facility] Comment on above: Performed By: #### L 500.4050, L100.0100 #### [facility] [address] [place], [address] Erythrocyte distribution width (RBC) [Ratio] 12.7 % Normal 11.6-14.6 [facility] Comment on above: Performed By: #### L 500.4050, L100.0100 #### [facility] [address] [place], [address] Hematocrit (Bld) [Volume fraction] 42.8 % Normal 40-54 [facility] Comment on above: Performed By: #### L 500.4050, L100.0100 #### [facility] [address] [place], [address] Hemoglobin (Bld) [Mass/Vol] 14.6 g/dL Normal 13.0-16.5 [facility] Comment on above: Performed By: #### L 500.4050, L100.0100 #### [facility] [address] [place], [address] IG% 0.500 Normal 0.0-0.9 [facility] Comment on above: Result Comment: IG% - Immature Granulocytes (promyelocytes, myelocytes and metamyelocytes) > 1% indicates that a LEFT SHIFT is Present. Performed By: #### L 500.4050, L100.0100 #### [facility] [address] [place], [address] Lymphocytes/100 WBC (Bld) 6.7 % Low 19-41 [facility] Comment on above: Performed By: #### L 500.4050, L100.0100 #### [facility] [address] [place], [address] MCH (RBC) [Entitic mass] 34.0 pg High 27.0-32.0 [facility] Comment on above: Performed By: #### L 500.4050, L100.0100 #### [facility] [address] [place], [address] MCHC (RBC) [Mass/Vol] 34.1 g/dL Normal 32-36 [facility] Comment on above: Performed By: #### L 500.4050, L100.0100 #### [facility] [address] [place], [address] MCV (RBC) [Entitic vol] 99.5 fL High 80-94 [facility] Comment on above: Performed By: #### L 500.4050, L100.0100 #### [facility] [address] [place], [address] Monocytes/100 WBC (Bld) 6.7 % Normal 0-10 [facility] Comment on above: Performed By: #### L 500.4050, L100.0100 #### [facility] [address] [place], [address] Neutrophils/100 WBC (Bld) 85.4 % High 47-70 [facility] Comment on above: Performed By: #### L 500.4050, L100.0100 #### [facility] [address] [place], [address] Nucleated RBC (Bld) [#/Vol] 0 10*3/uL Normal 0-5 [facility] Comment on above: Performed By: #### L 500.4050, L100.0100 #### [facility] [address] [place], [address] Platelet mean volume (Bld) [Entitic vol] 10.9 fL Normal 6.2-12.0 [facility] Comment on above: Performed By: #### L 500.4050, L100.0100 #### [facility] [address] [place], [address] Platelets (Bld) [#/Vol] 154 10*3/uL Normal 150-450 [facility] Comment on above: Performed By: #### L 500.4050, L100.0100 #### [facility] [address] [place], [address] RBC (Bld) [#/Vol] 4.30 10*6/uL Low 4.6-6.2 [facility] Comment on above: Performed By: #### L 500.4050, L100.0100 #### [facility] [address] [place], [address] RDW SD 47.3 fl High 35.1-43.9 [facility] Comment on above: Performed By: #### L 500.4050, L100.0100 #### [facility] [address] [place], [address] WBC (Bld) [#/Vol] 16.9 10*3/uL High 4.4-11.0 [facility] Comment on above: Performed By: #### L 500.4050, L100.0100 #### [facility] [address] [place], [address] Comprehensive Metabolic Prof [facility] 05-10-2024 Albumin [Mass/Vol] 3.7 g/dL Normal 3.2-5.0 [facility] Comment on above: Performed By: #### L 500.4050, L100.0100 #### [facility] [address] [place], [address] Albumin/Globulin [Mass ratio] 1.1 {ratio} Normal 0.9-2.4 [facility] Comment on above: Performed By: #### L 500.4050, L100.0100 #### [facility] [address] [place], [address] ALK P 74 U/L Normal 45-117 [facility] Comment on above: Performed By: #### L 500.4050, L100.0100 #### [facility] [address] [place], [address] ALT [Catalytic activity/Vol] 22 U/L Normal 16-61 [facility] Comment on above: Performed By: #### L 500.4050, L100.0100 #### [facility] [address] [place], [address] AST [Catalytic activity/Vol] 16 U/L Normal 15-37 [facility] Comment on above: Performed By: #### L 500.4050, L100.0100 #### [facility] [address] [place], [address] Bilirubin [Mass/Vol] 0.50 mg/dL Normal 0.20-1.00 [facility] Comment on above: Result Comment: For patients on eltrombopag therapy, use of Dimension [place] TBIL is not recommended. Performed By: #### L 500.4050, L100.0100 #### [facility] [address] [place], [address] BUN/CRE 28.1 RATIO High 10-20 [facility] Comment on above: Performed By: #### L 500.4050, L100.0100 #### [facility] [address] [place], [address] CA,Total 9.1 mg/dL Normal 8.5-10.1 [facility] Comment on above: Performed By: #### L 500.4050, L100.0100 #### [facility] [address] [place], [address] Chloride [Moles/Vol] 105 mmol/L Normal 98-107 [facility] Comment on above: Performed By: #### L 500.4050, L100.0100 #### [facility] [address] [place], [address] CO2 [Moles/Vol] 26.0 mmol/L Normal 21.0-32.0 [facility] Comment on above: Performed By: #### L 500.4050, L100.0100 #### [facility] [address] [place], [address] Creatinine [Mass/Vol] 0.86 mg/dL Normal 0.70-1.30 [facility] Comment on above: Result Comment: The validity of the calculated GFR GFRAA in patients over 70 years has not been determined. Clinical correlation is essential. Performed By: #### L 500.4050, L100.0100 #### [facility] [address] [place], [address] ECRCL 74.62 ml/min Normal [facility] Comment on above: Performed By: #### L 500.4050, L100.0100 #### [facility] [address] [place], [address] EST GFR - AA 111 mL/min Normal >60 [facility] Comment on above: Result Comment: Afri can Samoan GFR Calc Performed By: #### L 500.4050, L100.0100 #### [facility] [address] [place], [address] GAP 6 Normal 5-15 [facility] Comment on above: Performed By: #### L 500.4050, L100.0100 #### [facility] [address] [place], [address] GFR/1.73 sq M.predicted among non-blacks MDRD (S/P/Bld) [Vol rate/Area] 92 mL/min/{1.73_m2} Normal >60 [facility] Comment on above: Result Comment: Non- GFR Calc Performed By: #### L 500.4050, L100.0100 #### [facility] [address] [place], [address] Globulin (S) [Mass/Vol] 3.5 g/dL Normal 2.2-4.2 [facility] Comment on above: Performed By: #### L 500.4050, L100.0100 #### [facility] [address] [place], [address] Glucose [Mass/Vol] 131 mg/dL High 74-106 [facility] Comment on above: Result Comment: Fast ing Glucose result greater than or equal to 126 mg/dL suggests DIABETES MELLITUS per A.D.A. criteria. Performed By: #### L 500.4050, L100.0100 #### [facility] [address] [place], [address] Potassium [Moles/Vol] 4.0 mmol/L Normal 3.5-5.1 [facility] Comment on above: Performed By: #### L 500.4050, L100.0100 #### [facility] [address] [place], [address] Sodium [Moles/Vol] 137 mmol/L Normal 136-145 [facility] Comment on above: Performed By: #### L 500.4050, L100.0100 #### [facility] [address] [place], [address] T PROT 7.2 g/dL Normal 6.4-8.2 [facility] Comment on above: Performed By: #### L 500.4050, L100.0100 #### [facility] [address] [place], [address] Urea nitrogen [Mass/Vol] 24 mg/dL High 7-18 [facility] Comment on above: Performed By: #### L 500.4050, L100.0100 #### [facility] [address] [place], [address] Emergency Department Summary on 05-10-2024 Emergency Department Summary [facility] Medical Records Department [address] [place] [address] Emergency Department Summary 05/10/24 MR#: [id number] Acct: [id number] Name: JUNG ABURTO Rep #: [id number] : 1945 79 From: Mal Aleman DO [...] He denies any cough or URI/respiratory illness. [facility] Medical History Normal stress echocardiogram Gastritis Yates esophagus Wears glasses Alcohol use Arthritis Back [...] Unknown History mg-1,916 mg-1,000 mg efferves tab (Maryjane-[place] Original) lisinopril 5 mg tablet 5 mg [...] 137/71 H (more content not included)... Normal [facility] Urinalysis, Completeon 05-10 WBC 10-25 SEEN Normal 0-5 [facility] Comment on above: Order Comment: PSA W /REFLEX FREE (PER ORDER) Performed By: #### L 506.1000, L501.9910, L500.4100 #### [facility] [address] [place], [address] BACTERIA 0 SEEN Normal None Seen [facility] Comment on above: Order Comment: PSA W /REFLEX FREE (PER ORDER) Performed By: #### L 506.1000, L501.9910, L500.4100 #### [facility] [address] [place], [address] EPI,SQUAMOUS 0 SEEN Normal 0-5 [facility] Comment on above: Order Comment: PSA W /REFLEX FREE (PER ORDER) Performed By: #### L 506.1000, L501.9910, L500.4100 #### [facility] [address] [place], [address] Mucus Ql (Urine sed) 0 SEEN Normal [facility] Comment on above: Order Comment: PSA W /REFLEX FREE (PER ORDER) Performed By: #### L 506.1000, L501.9910, L500.4100 #### [facility] [address] [place], [address] RBC 0 SEEN Normal 0-5 [facility] Comment on above: Order Comment: PSA W /REFLEX FREE (PER ORDER) Performed By: #### L 506.1000, L501.9910, L500.4100 #### [facility] [address] [place], [address] Lipid Profileon 04-02-2024 Cholesterol [Mass/Vol] 198 mg/dL Normal 200 [facility] Comment on above: Order Comment: PSA W /REFLEX FREE (PER ORDER) Result Comment: <200 mg/dL Desirable 200-240 mg/dL Borderline >240 mg/dL High Risk Performed By: #### L 506.1000, L501.9910, L500.4100 #### [facility] [address] [place], [address] Cholesterol in HDL [Mass/Vol] 81 mg/dL Normal [facility] Comment on above: Order Comment: PSA W /REFLEX FREE (PER ORDER) Result Comment: The drugs N-Acetylcysteine and Metamizole may falsely depress this assay. Reference Range HDL <40 mg/dL Low HDL Cholesterol HDL >or= 60 mg/dL High HDL Cholesterol Performed By: #### L 506.1000, L501.9910, L500.4100 #### [facility] [address] [place], [address] Cholesterol in LDL [Mass/Vol] 102 mg/dL Normal 0-130 [facility] Comment on above: Order Comment: PSA W /REFLEX FREE (PER ORDER) Performed By: #### L 506.1000, L501.9910, L500.4100 #### [facility] [address] [place], [address] Cholesterol in VLDL [Mass/Vol] 15 mg/dL Normal 5-40 [facility] Comment on above: Order Comment: PSA W /REFLEX FREE (PER ORDER) Performed By: #### L 506.1000, L501.9910, L500.4100 #### [facility] [address] [place], [place], [address] Triglyceride [Mass/Vol] 76 mg/dL Normal [facility] Comment on above: Order Comment: PSA W /REFLEX FREE (PER ORDER) Result Comment: The drugs N-Acetylcysteine and Metamizole may falsely depress this assay. Serum Triglycerides Reference Interval Normal <150 mg/dL Borderline high 150 - 199 mg/dL High 200 - 499 mg/dL Very High > or = 500 mg/dL Performed By: #### L 506.1000, L501.9910, L500.4100 #### [facility] [address] [place], [place], [address] PSA,Total - Annual Screenon 04-02-2024 PSA,TOT SCREEN 1.35 ng/mL Normal 0.00-4.00 [facility] Comment on above: Order Comment: PSA W /REFLEX FREE (PER ORDER) Result Comment: This test was performed using the TPSA assay method for the [employer] chemistry system. Values obtained with different assay methods cannot be used interchangably. When changing PSA assays in the course of monitoring a patient, additional sequential testing should be carried out to confirm baseline values. Performed By: #### L 506.1000, L501.9910, L500.4100 #### [facility] [address] [place], [place], [address] Vitamin D,25 Hydroxyon 04-02 Vitamin D 25-OH 55.7 ng/mL Normal [facility] Comment on above: Order Comment: PSA W /REFLEX FREE (PER ORDER) Result Comment: Lore min D 25(OH) Status Range Deficiency <20 ng/mL (50nmol/L) Insufficiency 20 - 30 ng/mL (50 - 75 nmol/L) Sufficiency 30 - 100 ng/mL (75 - 250 nmol/L) Toxicity >100 ng/mL (>250 nmol/L) Performed By: #### L 506.1000, L501.9910, L500.4100 #### [facility] [address] [place], [place], [address] Gastroenterology Visit Repor ton 03-20-2024 Gastroenterology Visit Report [facility] [address] [place] [address] OFFICE VISIT Date of Service: 03/20/24 MR#: [id number] Acct: [id number] Name: JUNG ABURTO Rep #: [id number] : 1945 Provider: David Parra DO Age/Sex: 78/M Location: 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 Biopsied. Small hiatal hernia. Normal stomach. [...] Assessment and Plan Assessment and Plan (1) Yates esophagus: Status: Chronic Plan: Discussed EGD findings, positive for Yates's still, negative for dysplasia, continue PPI and [id number]. Repeat EGD one yr Coding Level of Care Code Off vis,est,level 3 Diagnoses Yates esophagus K22.70 Clinical Quality Measures Falls Risk Screening/Assistive Devices Have you fallen in the past year?: No 0 (more content not included)... Normal [facility] CBC W/Diff, Automatedon 02-08 Absolute Lymph 0.81 X10 3/uL Low 0.83-4.51 [facility] Comment on above: Performed By: #### L 400.0001, L101.9900, L501.6710, L100.0100, L500.4050 #### [facility] [address] [place], [address] Absolute Neut 9.4 X10 3/uL High 2.0-7.7 [facility] Comment on above: Performed By: #### L 400.0001, L101.9900, L501.6710, L100.0100, L500.4050 #### [facility] [address] [place], [address] Basophils/100 WBC (Bld) 0.3 % Normal 0-1 [facility] Comment on above: Performed By: #### L 400.0001, L101.9900, L501.6710, L100.0100, L500.4050 #### [facility] [address] [place], [address] Eosinophils/100 WBC (Bld) 1.4 % Normal 0-5 [facility] Comment on above: Performed By: #### L 400.0001, L101.9900, L501.6710, L100.0100, L500.4050 #### [facility] [address] [place], [address] Erythrocyte distribution width (RBC) [Ratio] 11.9 % Normal 11.6-14.6 [facility] Comment on above: Performed By: #### L 400.0001, L101.9900, L501.6710, L100.0100, L500.4050 #### [facility] [address] [place], [address] Hematocrit (Bld) [Volume fraction] 37.8 % Low 40-54 [facility] Comment on above: Performed By: #### L 400.0001, L101.9900, L501.6710, L100.0100, L500.4050 #### [facility] [address] [place], [address] Hemoglobin (Bld) [Mass/Vol] 13.1 g/dL Normal 13.0-16.5 [facility] Comment on above: Performed By: #### L 400.0001, L101.9900, L501.6710, L100.0100, L500.4050 #### [facility] [address] [place], [address] IG% 0.600 Normal 0.0-0.9 [facility] Comment on above: Result Comment: IG% - Immature Granulocytes (promyelocytes, myelocytes and metamyelocytes) > 1% indicates that a LEFT SHIFT is Present. Performed By: #### L 400.0001, L101.9900, L501.6710, L100.0100, L500.4050 #### [facility] [address] [place], [address] Lymphocytes/100 WBC (Bld) 7.4 % Low 19-41 [facility] Comment on above: Performed By: #### L 400.0001, L101.9900, L501.6710, L100.0100, L500.4050 #### [facility] [address] [place], [address] MCH (RBC) [Entitic mass] 34.0 pg High 27.0-32.0 [facility] Comment on above: Performed By: #### L 400.0001, L101.9900, L501.6710, L100.0100, L500.4050 #### [facility] [address] [place], [address] MCHC (RBC) [Mass/Vol] 34.7 g/dL Normal 32-36 [facility] Comment on above: Performed By: #### L 400.0001, L101.9900, L501.6710, L100.0100, L500.4050 #### [facility] [address] [place], [address] MCV (RBC) [Entitic vol] 98.2 fL High 80-94 [facility] Comment on above: Performed By: #### L 400.0001, L101.9900, L501.6710, L100.0100, L500.4050 #### [facility] [address] [place], [address] Monocytes/100 WBC (Bld) 3.9 % Normal 0-10 [facility] Comment on above: Performed By: #### L 400.0001, L101.9900, L501.6710, L100.0100, L500.4050 #### [facility] [address] [place], [address] Neutrophils/100 WBC (Bld) 86.4 % High 47-70 [facility] Comment on above: Performed By: #### L 400.0001, L101.9900, L501.6710, L100.0100, L500.4050 #### [facility] [address] [place], [address] Nucleated RBC (Bld) [#/Vol] 0 10*3/uL Normal 0-5 [facility] Comment on above: Performed By: #### L 400.0001, L101.9900, L501.6710, L100.0100, L500.4050 #### [facility] [address] [place], [address] Platelet mean volume (Bld) [Entitic vol] 11.4 fL Normal 6.2-12.0 [facility] Comment on above: Performed By: #### L 400.0001, L101.9900, L501.6710, L100.0100, L500.4050 #### [facility] [address] [place], [address] Platelets (Bld) [#/Vol] 242 10*3/uL Normal 150-450 [facility] Comment on above: Performed By: #### L 400.0001, L101.9900, L501.6710, L100.0100, L500.4050 #### [facility] [address] [place], [address] RBC (Bld) [#/Vol] 3.85 10*6/uL Low 4.6-6.2 [facility] Comment on above: Performed By: #### L 400.0001, L101.9900, L501.6710, L100.0100, L500.4050 #### [facility] [address] [place], [address] RDW SD 42.6 fl Normal 35.1-43.9 [facility] Comment on above: Performed By: #### L 400.0001, L101.9900, L501.6710, L100.0100, L500.4050 #### [facility] [address] [place], [address] WBC (Bld) [#/Vol] 10.9 10*3/uL Normal 4.4-11.0 [facility] Comment on above: Performed By: #### L 400.0001, L101.9900, L501.6710, L100.0100, L500.4050 #### [facility] [address] [place], [address] CRPon 03-06-2024 C-REACTIVE PROT 139.00 mg/L High 0.0-3.0 [facility] Comment on above: Result Comment: C-Re active Protein (CRP) provides useful information for the diagnosis, therapy and monitoring of inflammatory processes and associated diseases. For the evaluation of Relative Risk for Cardiovascular Disease, a High Sensitivity CRP (HSCRP) should be ordered. Performed By: #### L 400.0001, L101.9900, L501.6710, L100.0100, L500.4050 #### [facility] [address] [place], [address] Comprehensive Metabolic Prof ilon 03-06-2024 Albumin [Mass/Vol] 3.5 g/dL Normal 3.2-5.0 [facility] Comment on above: Performed By: #### L 400.0001, L101.9900, L501.6710, L100.0100, L500.4050 #### [facility] [address] [place], [address] Albumin/Globulin [Mass ratio] 1.1 {ratio} Normal 0.9-2.4 [facility] Comment on above: Performed By: #### L 400.0001, L101.9900, L501.6710, L100.0100, L500.4050 #### [facility] [address] [place], [address] ALK P 118 U/L High 45-117 [facility] Comment on above: Performed By: #### L 400.0001, L101.9900, L501.6710, L100.0100, L500.4050 #### [facility] [address] [place], [address] ALT [Catalytic activity/Vol] 54 U/L Normal 16-61 [facility] Comment on above: Performed By: #### L 400.0001, L101.9900, L501.6710, L100.0100, L500.4050 #### [facility] [address] [place], [address] AST [Catalytic activity/Vol] 27 U/L Normal 15-37 [facility] Comment on above: Performed By: #### L 400.0001, L101.9900, L501.6710, L100.0100, L500.4050 #### [facility] [address] [place], [address] Bilirubin [Mass/Vol] 0.50 mg/dL Normal 0.20-1.00 [facility] Comment on above: Result Comment: For patients on eltrombopag therapy, use of Dimension [place] TBIL is not recommended. Performed By: #### L 400.0001, L101.9900, L501.6710, L100.0100, L500.4050 #### [facility] [address] [place], [address] BUN/CRE 42.6 RATIO High 10-20 [facility] Comment on above: Performed By: #### L 400.0001, L101.9900, L501.6710, L100.0100, L500.4050 #### [facility] [address] [place], [address] CA,Total 8.9 mg/dL Normal 8.5-10.1 [facility] Comment on above: Performed By: #### L 400.0001, L101.9900, L501.6710, L100.0100, L500.4050 #### [facility] [address] [place], [address] Chloride [Moles/Vol] 100 mmol/L Normal 98-107 [facility] Comment on above: Performed By: #### L 400.0001, L101.9900, L501.6710, L100.0100, L500.4050 #### [facility] [address] [place], [address] CO2 [Moles/Vol] 26.0 mmol/L Normal 21.0-32.0 [facility] Comment on above: Performed By: #### L 400.0001, L101.9900, L501.6710, L100.0100, L500.4050 #### [facility] [address] [place], [address] Creatinine [Mass/Vol] 0.73 mg/dL Normal 0.70-1.30 [facility] Comment on above: Result Comment: The validity of the calculated GFR GFRAA in patients over 70 years has not been determined. Clinical correlation is essential. Performed By: #### L 400.0001, L101.9900, L501.6710, L100.0100, L500.4050 #### [facility] [address] [place], [address] EST GFR - AA 134 mL/min Normal >60 [facility] Comment on above: Result Comment: Afri can Samoan GFR Calc Performed By: #### L 400.0001, L101.9900, L501.6710, L100.0100, L500.4050 #### [facility] [address] [place], [address] GAP 7 Normal 5-15 [facility] Comment on above: Performed By: #### L 400.0001, L101.9900, L501.6710, L100.0100, L500.4050 #### [facility] [address] [place], [address] GFR/1.73 sq M.predicted among non-blacks MDRD (S/P/Bld) [Vol rate/Area] 111 mL/min/{1.73_m2} Normal >60 [facility] Comment on above: Result Comment: Non- GFR Calc Performed By: #### L 400.0001, L101.9900, L501.6710, L100.0100, L500.4050 #### [facility] [address] [place], [address] Globulin (S) [Mass/Vol] 3.2 g/dL Normal 2.2-4.2 [facility] Comment on above: Performed By: #### L 400.0001, L101.9900, L501.6710, L100.0100, L500.4050 #### [facility] [address] [place], [address] Glucose [Mass/Vol] 104 mg/dL Normal 74-106 [facility] Comment on above: Result Comment: Fast ing Glucose result from 100 to 125 mg/dL suggests IMPAIRED HOMEOSTASIS per A.D.A. criteria. Performed By: #### L 400.0001, L101.9900, L501.6710, L100.0100, L500.4050 #### [facility] [address] [place], [address] Potassium [Moles/Vol] 4.8 mmol/L Normal 3.5-5.1 [facility] Comment on above: Performed By: #### L 400.0001, L101.9900, L501.6710, L100.0100, L500.4050 #### [facility] [address] [place], [address] Sodium [Moles/Vol] 133 mmol/L Low 136-145 [facility] Comment on above: Performed By: #### L 400.0001, L101.9900, L501.6710, L100.0100, L500.4050 #### [facility] [address] [place], [address] T PROT 6.7 g/dL Normal 6.4-8.2 [facility] Comment on above: Performed By: #### L 400.0001, L101.9900, L501.6710, L100.0100, L500.4050 #### [facility] [address] [place], [address] Urea nitrogen [Mass/Vol] 31 mg/dL High 7-18 [facility] [facility] Comment on above: Performed By: #### L 400.0001, L101.9900, L501.6710, L100.0100, [id number] #### [facility] [address] [place], [address] Erythrocyte Sed Rateon 03-06 SED RATE 6 mm/hr Normal 0-20 [facility] Comment on above: Performed By: #### L 400.0001, L101.9900, L501.6710, L100.0100, L500.4050 #### [facility] [address] [place], [address] Urinalysis, Completeon 03-06 RBC 0-5 SEEN Normal 0-5 [facility] Comment on above: Order Comment: Urine , Random Performed By: #### L 400.0001, L101.9900, L501.6710, L100.0100, L500.4050 #### [facility] [address] [place], [address] WBC 0-5 SEEN Normal 0-5 [facility] Comment on above: Order Comment: Urine , Random Performed By: #### L 400.0001, L101.9900, L501.6710, L100.0100, [id number] #### [facility] [address] [place], [address] BACTERIA 0 SEEN Normal None Seen [facility] Comment on above: Order Comment: Urine , Random Performed By: #### L 400.0001, L101.9900, L501.6710, L100.0100, [id number] #### [facility] [address] [place], [address] EPI,SQUAMOUS 0 SEEN Normal 0-5 [facility] Comment on above: Order Comment: Urine , Random Performed By: #### L 400.0001, L101.9900, L501.6710, L100.0100, [id number] #### [facility] [address] [place], [address] Mucus Ql (Urine sed) 0 SEEN Normal [facility] Comment on above: Order Comment: Urine , Random Performed By: #### L 400.0001, L101.9900, L501.6710, L100.0100, [id number] #### [facility] [address] [place], [address] Absolute lymphocyte countOrd ered By: Francheska Fast on 12-25-2023 Lymphocytes Auto (Unsp spec) [#/Vol] 1.33 10*3/uL 0.83-4.51 [facility] Automated lymphocyte count a s percentage of total leukocytesOrdered By: Francheska Fast on 12-25-2023 Lymphocytes/100 WBC Auto (Unsp spec) 22.1 % 19-41 [facility] Basophil percentageOrdered B y: Francheska Fast on 12-25-2023 Basophils/100 WBC (Bld) 1.2 % 0-1 [facility] Bilirubin [Mass/Vol] 0.30 mg/dL 0.20-1.00 [facility] Comment on above: For patients on eltr ombopag therapy, use of Dimension [place] TBIL is not recommended. Chloride [Moles/Vol] 106 mmol/L 98-107 [facility] Cholesterol [Mass/Vol] 198 mg/dL <200 [facility] Comment on above: <200 mg/dL Desirable 200-240 mg/dL Borderline >240 mg/dL High Risk Eosinophils/100 WBC (Bld) 11.1 % 0-5 [facility] Glucose [Mass/Vol] 91 mg/dL 74-106 [facility] Hemoglobin (Bld) [Mass/Vol] 15.2 g/dL 13.0-16.5 [facility] Monocytes/100 WBC (Bld) 8.1 % 0-10 [facility] Neutrophils (Bld) [#/Vol] 3.4 10*3/uL 2.0-7.7 [facility] Neutrophils/100 WBC (Bld) 57.0 % 47-70 [facility] Potassium [Moles/Vol] 4.6 mmol/L 3.5-5.1 [facility] Protein [Mass/Vol] 7.2 g/dL 6.4-8.2 [facility] Sodium [Moles/Vol] 137 mmol/L 136-145 [facility] Triglyceride [Mass/Vol] 75 mg/dL <199 [facility] Comment on above: The drugs N-Acetylcy steine and Metamizole may falsely depress this assay.Serum Triglycerides Reference Interval Normal <150 mg/dL Borderline high 150 - 199 mg/dL High 200 - 499 mg/dL Very High > or = 500 mg/dL WBC (Bld) [#/Vol] 6.0 10*3/uL 4.4-11.0 [facility] Culture, urineOrdered By: Jerez on 12-25-2023 Bacteria identified Cx Nom (U) Culture exhibits no growth. [facility] Determination of erythrocyte mean corpuscular volume (MCV)Ordered By: Francheska on 12-25-2023 MCV (RBC) [Entitic vol] 98.4 fL 80-94 [facility] Erythrocyte distribution wid th ratioOrdered By: Francheska Fast on 12-25-2023 Erythrocyte distribution width (RBC) [Ratio] 12.5 % 11.6-14.6 [facility] Erythrocyte distribution wid th standard deviationOrdered By: Francheska Fast on 12-25-2023 Erythrocyte distribution width (RBC) [Entitic vol] 45.2 fL 35.1-43.9 [facility] Hematocrit Auto (Bld) [Volum e fraction]Ordered By: Francheska Fast on 12-25-2023 Hematocrit (Bld) [Volume fraction] 43.7 % 40-54 [facility] Immature granulocytes/100 WB C Auto (Bld)Ordered By: Francheska Fast on 12-25-2023 Immature granulocytes/100 WBC (Bld) 0.500 % 0.0-0.9 [facility] Comment on above: IG% - Immature Granu locytes (promyelocytes, myelocytes and metamyelocytes) > 1% indicates that a LEFT SHIFT is Present. Laboratory - Chemistry and C hemistry - challengeOrdered By: Francheska Clinton on 12-25-2023 Albumin/Globulin [Mass ratio] 1.2 {ratio} 0.9-2.4 [facility] ALP [Catalytic activity/Vol] 75 U/L 45-117 [facility] ALT [Catalytic activity/Vol] 25 U/L 16-61 [facility] Cholesterol in HDL [Mass/Vol] 75 mg/dL >40 [facility] Comment on above: The drugs N-Acetylcy steine and Metamizole may falsely depress this assay. Reference Range HDL <40 mg/dL Low HDL Cholesterol HDL >or= 60 mg/dL High HDL Cholesterol Cholesterol in LDL [Mass/Vol] 108 mg/dL 0-130 [facility] CO2 [Moles/Vol] 29.0 mmol/L 21.0-32.0 [facility] Globulin (S) [Mass/Vol] 3.2 g/dL 2.2-4.2 [facility] Urea nitrogen/Creatinine [Mass ratio] 31.5 mg/mg 10-20 [facility] - Hematology and Cell countsOrdered By: Francheska Alonzo on 12-25-2023 MCH (RBC) [Entitic mass] 34.2 pg 27.0-32.0 [facility] MCHC (RBC) [Mass/Vol] 34.8 g/dL 32-36 [facility] Nucleated RBC/100 WBC (Bld) [Ratio] 0 % 0-5 [facility] Platelet mean volume (Bld) [Entitic vol] 10.4 fL 6.2-12.0 [facility] Platelets (Bld) [#/Vol] 195 10*3/uL 150-450 [facility] No Panel InformationOrdered By: Francheska Alonzo on 12-25-2023 Estimated GFR (MDRD) Amer 116 mL/min >60 [facility] Comment on above: GFR Calc Estimated GFR (MDRD) Non-Af Amer 96 mL/min >60 [facility] Comment on above: Non- GFR Calc VLDL Cholesterol 15 mg/dL 5-40 [facility] RBC Auto (Bld) [#/Vol]Ordere d By: Francheska Alonzo on 12-25-2023 RBC (Bld) [#/Vol] 4.44 10*6/uL 4.6-6.2 [facility] Serum or plasma calcium pauline urement (mass/volume)Ordered By: Francheska Alonzo on 12-25-2023 Calcium [Mass/Vol] 8.9 mg/dL 8.5-10.1 [facility] Serum or plasma creatinine m easurement (mass/volume)Ordered By: Francheska on 12-25-2023 Creatinine [Mass/Vol] 0.82 mg/dL 0.70-1.30 [facility] Comment on above: The validity of the calculated GFR & GFRAA in patients over 70 years has not been determined. Clinical correlation is essential. Serum or plasma urea nitroge n measurement (mass/volume)Ordered By: Francheska Alonzo on 12-25-2023 Urea nitrogen [Mass/Vol] 26 mg/dL 7-18 [facility] Thin prep Papanicolaou smear with manual screeningOrdered By: Francheska on 12-25-2023 Thin prep Papanicolaou smear with manual screening 4.0 g/dL 3.2-5.0 [facility] Thin prep Papanicolaou smear with manual screening 19 U/L 15-37 [facility] Thin prep Papanicolaou smear with manual screening 2 5-15 [facility] Absolute lymphocyte countOrd ered By: Francheska Alonzo on 05-29-2023 Lymphocytes Auto (Unsp spec) [#/Vol] 1.36 10*3/uL 0.83-4.51 [facility] Basophil percentageOrdered B y: Francheska Alonzo on 05-29-2023 Basophils/100 WBC (Bld) 0.9 % 0-1 [facility] Bilirubin [Mass/Vol] 0.60 mg/dL 0.20-1.00 [facility] Comment on above: For patients on eltr ombopag therapy, use of Dimension [place] TBIL is not recommended. Chloride [Moles/Vol] 108 mmol/L 98-107 [facility] Cholesterol [Mass/Vol] 195 mg/dL <200 [facility] Comment on above: <200 mg/dL Desirable 200-240 mg/dL Borderline >240 mg/dL High Risk Eosinophils/100 WBC (Bld) 7.8 % 0-5 [facility] Glucose [Mass/Vol] 91 mg/dL 74-106 [facility] Neutrophils (Bld) [#/Vol] 3.3 10*3/uL 2.0-7.7 [facility] Neutrophils/100 WBC (Bld) 58.6 % 47-70 [facility] Potassium [Moles/Vol] 4.1 mmol/L 3.5-5.1 [facility] Protein [Mass/Vol] 7.1 g/dL 6.4-8.2 [facility] Sodium [Moles/Vol] 139 mmol/L 136-145 [facility] Triglyceride [Mass/Vol] 92 mg/dL <199 [facility] Comment on above: The drugs N-Acetylcy steine and Metamizole may falsely depress this assay.Serum Triglycerides Reference Interval Normal <150 mg/dL Borderline high 150 - 199 mg/dL High 200 - 499 mg/dL Very High > or = 500 mg/dL WBC (Bld) [#/Vol] 5.6 10*3/uL 4.4-11.0 [facility] Blood erythrocytes count (nu mber/volume)Ordered By: Francheska Fast on 05-29-2023 RBC (Bld) [#/Vol] 4.51 10*6/uL 4.6-6.2 [facility] Blood hemoglobin measurement (mass/volume)Ordered By: Francheska Fast on 05-29-2023 Hemoglobin (Bld) [Mass/Vol] 15.4 g/dL 13.0-16.5 [facility] Blood lymphocytes/100 leukoc ytesOrdered By: Francheska Fast on 05-29-2023 Lymphocytes/100 WBC (Bld) 24.2 % 19-41 [facility] Blood monocytes/100 leukocyt esOrdered By: Francheska Fast on 05-29-2023 Monocytes/100 WBC (Bld) 8.3 % 0-10 [facility] Blood platelet mean volumeOr dered By: Francheska Fast on 05-29-2023 Platelet mean volume (Bld) [Entitic vol] 11.7 fL 6.2-12.0 [facility] Determination of erythrocyte mean corpuscular volume (MCV)Ordered By: [facility] on 05-29-2023 MCV (RBC) [Entitic vol] 99.8 fL 80-94 [facility] Erythrocyte sedimentation ra teOrdered By: [facility] on 05-29-2023 ESR (Bld) [Velocity] mm/h 0-20 [facility] Hematocrit Auto (Bld) [Volum e fraction]Ordered By: [facility] on 05-29-2023 Hematocrit (Bld) [Volume fraction] 45.0 % 40-54 [facility] - Chemistry and C hemistry - challengeOrdered By: [facility] on 05-29-2023 ALP [Catalytic activity/Vol] 82 U/L 45-117 [facility] ALT [Catalytic activity/Vol] 31 U/L 16-61 [facility] CO2 [Moles/Vol] 27.0 mmol/L 21.0-32.0 [facility] Globulin (S) [Mass/Vol] 2.9 g/dL 2.2-4.2 [facility] Urea nitrogen/Creatinine [Mass ratio] 22.7 mg/mg 10-20 [facility] - Hematology and Cell countsOrdered By: [facility] on 05-29-2023 Erythrocyte distribution width (RBC) [Entitic vol] 45.7 fL 35.1-43.9 [facility] Erythrocyte distribution width (RBC) [Ratio] 12.4 % 11.6-14.6 [facility] Immature granulocytes/100 WBC (Bld) 0.200 % 0.0-0.9 [facility] Comment on above: IG% - Immature Granu locytes (promyelocytes, myelocytes and metamyelocytes) > 1% indicates that a LEFT SHIFT is Present. MCH (RBC) [Entitic mass] 34.1 pg 27.0-32.0 [facility] Nucleated RBC/100 WBC (Bld) [Ratio] 0 % 0-5 [facility] MCHC Auto (RBC) [Mass/Vol]Or dered By: [facility] on 05-29-2023 MCHC (RBC) [Mass/Vol] 34.2 g/dL 32-36 [facility] No Panel InformationOrdered By: [facility] on 09-20-2023 Anti-Nuclear Antibody Screen Negative Negative [facility] Comment on above: Performed at: [facility] [address] [id number] Director: Brennan Pascual PhD, Phone: [phone] Estimated GFR (MDRD) Amer 122 mL/min >60 [facility] Comment on above: GFR Calc Estimated GFR (MDRD) Non-Af Amer 101 mL/min >60 [facility] Comment on above: Non- GFR Calc Platelets bldOrdered By: Faby Alonzo on 05-29-2023 Platelets (Bld) [#/Vol] 178 10*3/uL 150-450 [facility] Serum or plasma C reactive p rotein measurement (mass/volume)Ordered By: Francheska on 05-29-2023 CRP [Mass/Vol] mg/L 0.0-3.0 [facility] Comment on above: C-Reactive Protein ( CRP) provides useful information for thediagnosis, therapy and monitoring of inflammatory processesand associated diseases. For the evaluation of Relative Riskfor Cardiovascular Disease, a High Sensitivity CRP (HSCRP)should be ordered. Serum or plasma albumin pauline urement (mass/volume)Ordered By: Francheska on 05-29-2023 Albumin [Mass/Vol] 4.2 g/dL 3.2-5.0 [facility] Serum or plasma albumin/glob ulin mass ratioOrdered By: Francheska on 05-29-2023 Albumin/Globulin [Mass ratio] 1.4 {ratio} 0.9-2.4 [facility] Serum or plasma calcium pauline urement (mass/volume)Ordered By: Francheska on 05-29-2023 Calcium [Mass/Vol] 9.2 mg/dL 8.5-10.1 [facility] Serum or plasma cholesterol in HDL measurement (mass/volume)Ordered By: Francheska on 05-29-2023 Cholesterol in HDL [Mass/Vol] 80 mg/dL >40 [facility] Comment on above: The drugs N-Acetylcy steine and Metamizole may falsely depress this assay. Reference Range HDL <40 mg/dL Low HDL Cholesterol HDL >or= 60 mg/dL High HDL Cholesterol Serum or plasma cholesterol in VLDL measurement (mass/volume)Ordered By: Francheska Alonzo on 05-29-2023 Cholesterol in VLDL [Mass/Vol] 18 mg/dL 5-40 [facility] Serum or plasma creatinine m easurement (mass/volume)Ordered By: Francheska Alonzo on 05-29-2023 Creatinine [Mass/Vol] 0.79 mg/dL 0.70-1.30 [facility] Comment on above: The validity of the calculated GFR & GFRAA in patients over 70 years has not been determined. Clinical correlation is essential. Serum or plasma low density lipoprotein (LDL) cholesterol measurement (mass/volume)Ordered By: Francheska Alonzo on 05-29-2023 Cholesterol in LDL [Mass/Vol] 97 mg/dL 0-130 [facility] Serum or plasma urea nitroge n measurement (mass/volume)Ordered By: Francheska Alonzo on 05-29-2023 Urea nitrogen [Mass/Vol] 18 mg/dL 7-18 [facility] Serum rheumatoid factor dete ctionOrdered By: Francheska Alonzo on 05-29-2023 Rheumatoid factor Ql (S) < 10.0 IU/mL <15 [facility] Thin prep Papanicolaou smear with manual screeningOrdered By: Francheska Alonzo on 05-29-2023 Thin prep Papanicolaou smear with manual screening 20 U/L 15-37 [facility] Thin prep Papanicolaou smear with manual screening 4 5-15 [facility] Absolute lymphocyte countOrd ered By: Dr. Alonzo on 02-22-2023 Lymphocytes Auto (Unsp spec) [#/Vol] 1.40 10*3/uL 0.83-4.51 [facility] Basophil percentageOrdered B y: Dr. Alonzo on 02-22-2023 Basophils/100 WBC (Bld) 0.9 % 0-1 [facility] Bilirubin [Mass/Vol] 0.60 mg/dL 0.20-1.00 [facility] Comment on above: For patients on eltr ombopag therapy, use of Dimension [place] TBIL is not recommended. Chloride [Moles/Vol] 106 mmol/L 98-107 [facility] Cholesterol [Mass/Vol] 205 mg/dL <200 [facility] Comment on above: <200 mg/dL Desirable 200-240 mg/dL Borderline >240 mg/dL High Risk Eosinophils/100 WBC (Bld) 6.7 % 0-5 [facility] Glucose [Mass/Vol] 88 mg/dL 74-106 [facility] Neutrophils (Bld) [#/Vol] 3.4 10*3/uL 2.0-7.7 [facility] Neutrophils/100 WBC (Bld) 59.0 % 47-70 [facility] Potassium [Moles/Vol] 4.5 mmol/L 3.5-5.1 [facility] Protein [Mass/Vol] 7.1 g/dL 6.4-8.2 [facility] Sodium [Moles/Vol] 140 mmol/L 136-145 [facility] Triglyceride [Mass/Vol] 112 mg/dL <199 [facility] Comment on above: The drugs N-Acetylcy steine and Metamizole may falsely depress this assay.Serum Triglycerides Reference Interval Normal <150 mg/dL Borderline high 150 - 199 mg/dL High 200 - 499 mg/dL Very High > or = 500 mg/dL WBC (Bld) [#/Vol] 5.7 10*3/uL 4.4-11.0 [facility] Blood erythrocytes count (nu mber/volume)Ordered By: Dr. Alonzo on 02-22-2023 RBC (Bld) [#/Vol] 4.57 10*6/uL 4.6-6.2 [facility] Blood hemoglobin measurement (mass/volume)Ordered By: Dr. Alonzo on 02-22-2023 Hemoglobin (Bld) [Mass/Vol] 15.9 g/dL 13.0-16.5 [facility] Blood lymphocytes/100 leukoc ytesOrdered By: Dr. Alonzo on 02-22-2023 Lymphocytes/100 WBC (Bld) 24.6 % 19-41 [facility] Blood monocytes/100 leukocyt esOrdered By: Dr. Alonzo on 02-22-2023 Monocytes/100 WBC (Bld) 8.6 % 0-10 [facility] Blood platelet mean volumeOr dered By: Dr. Alonzo on 02-22-2023 Platelet mean volume (Bld) [Entitic vol] 11.1 fL 6.2-12.0 [facility] Determination of erythrocyte mean corpuscular volume (MCV)Ordered By: Dr. Alonzo on 02-22-2023 MCV (RBC) [Entitic vol] 99.3 fL 80-94 [facility] Hematocrit Auto (Bld) [Volum e fraction]Ordered By: Dr. Alonzo on 02-22-2023 Hematocrit (Bld) [Volume fraction] 45.4 % 40-54 [facility] - Chemistry and C hemistry - challengeOrdered By: Dr. Alonzo on 02-22-2023 ALP [Catalytic activity/Vol] 83 U/L 45-117 [facility] ALT [Catalytic activity/Vol] 27 U/L 16-61 [facility] CO2 [Moles/Vol] 25.0 mmol/L 21.0-32.0 [facility] Globulin (S) [Mass/Vol] 3.1 g/dL 2.2-4.2 [facility] Urea nitrogen/Creatinine [Mass ratio] 23.8 mg/mg 10-20 [facility] - Hematology and Cell countsOrdered By: Dr. Alonzo on 02-22-2023 Erythrocyte distribution width (RBC) [Entitic vol] 44.3 fL 35.1-43.9 [facility] Erythrocyte distribution width (RBC) [Ratio] 12.2 % 11.6-14.6 [facility] Immature granulocytes/100 WBC (Bld) 0.200 % 0.0-0.9 [facility] Comment on above: IG% - Immature Granu locytes (promyelocytes, myelocytes and metamyelocytes) > 1% indicates that a LEFT SHIFT is Present. MCH (RBC) [Entitic mass] 34.8 pg 27.0-32.0 [facility] Nucleated RBC/100 WBC (Bld) [Ratio] 0 % 0-5 [facility] MCHC Auto (RBC) [Mass/Vol]Or dered By: Dr. Alonzo on 02-22-2023 MCHC (RBC) [Mass/Vol] 35.0 g/dL 32-36 [facility] No Panel InformationOrdered By: Dr. Alonzo on 02-22-2023 Estimated GFR (MDRD) Amer 107 mL/min >60 [facility] Comment on above: GFR Calc Estimated GFR (MDRD) Non-Af Amer 89 mL/min >60 [facility] Comment on above: Non- GFR Calc Prostate Specific Antigen Total 1.68 ng/mL 0.0-4.0 [facility] Comment on above: This test was perfor med using the TPSA assay method for the[employer] chemistry system. Values obtained with differentassay methods cannot be used interchangably.When changing PSA assays in the course of monitoring apatient, additional sequential testing should be carriedout to confirm baseline values. Vitamin D 25-Hydroxy 67.0 ng/mL [facility] Comment on above: Vitamin D 25(OH) Sta tus Range Deficiency <20 ng/mL (50nmol/L) Insufficiency 20 - 30 ng/mL (50 - 75 nmol/L) Sufficiency 30 - 100 ng/mL (75 - 250 nmol/L) Toxicity >100 ng/mL (>250 nmol/L) Platelets bldOrdered By: Dr. Alonzo on 02-22-2023 Platelets (Bld) [#/Vol] 189 10*3/uL 150-450 [facility] Serum or plasma albumin pauline urement (mass/volume)Ordered By: Dr. Alonzo on 02-22-2023 Albumin [Mass/Vol] 4.0 g/dL 3.2-5.0 [facility] Serum or plasma albumin/glob ulin mass ratioOrdered By: Dr. Alonzo on 02-22-2023 Albumin/Globulin [Mass ratio] 1.3 {ratio} 0.9-2.4 [facility] Serum or plasma calcium pauline urement (mass/volume)Ordered By: Dr. Alonzo on 02-22-2023 Calcium [Mass/Vol] 9.3 mg/dL 8.5-10.1 [facility] Serum or plasma cholesterol in HDL measurement (mass/volume)Ordered By: Dr. Alonzo on 02-22-2023 Cholesterol in HDL [Mass/Vol] 75 mg/dL >40 [facility] Comment on above: The drugs N-Acetylcy steine and Metamizole may falsely depress this assay. Reference Range HDL <40 mg/dL Low HDL Cholesterol HDL >or= 60 mg/dL High HDL Cholesterol Serum or plasma cholesterol in VLDL measurement (mass/volume)Ordered By: Dr. Alonzo on 02-22-2023 Cholesterol in VLDL [Mass/Vol] 22 mg/dL 5-40 [facility] Serum or plasma creatinine m easurement (mass/volume)Ordered By: Dr. Alonzo on 02-22-2023 Creatinine [Mass/Vol] 0.88 mg/dL 0.70-1.30 [facility] Comment on above: The validity of the calculated GFR & GFRAA in patients over 70 years has not been determined. Clinical correlation is essential. Serum or plasma low density lipoprotein (LDL) cholesterol measurement (mass/volume)Ordered By: Dr. Alonzo on 02-22-2023 Cholesterol in LDL [Mass/Vol] 108 mg/dL 0-130 [facility] Serum or plasma urea nitroge n measurement (mass/volume)Ordered By: Dr. Alonzo on 02-22-2023 Urea nitrogen [Mass/Vol] 21 mg/dL 7-18 [facility] Thin prep Papanicolaou smear with manual screeningOrdered By: Dr. Alonzo on 02-22-2023 Thin prep Papanicolaou smear with manual screening 22 U/L 15-37 [facility] Thin prep Papanicolaou smear with manual screening 9 5-15 [facility] Absolute lymphocyte countOrd ered By: Dr. Valdez on 11-30-2022 Lymphocytes Auto (Unsp spec) [#/Vol] 1.52 10*3/uL 0.83-4.51 [facility] Basophil percentageOrdered B y: Dr. Valdez on 11-30-2022 Basophils/100 WBC (Bld) 0.7 % 0-1 [facility] Chloride [Moles/Vol] 106 mmol/L 98-107 [facility] Eosinophils/100 WBC (Bld) 4.6 % 0-5 [facility] Glucose [Mass/Vol] 96 mg/dL 74-106 [facility] Neutrophils (Bld) [#/Vol] 4.5 10*3/uL 2.0-7.7 [facility] Neutrophils/100 WBC (Bld) 65.1 % 47-70 [facility] Potassium [Moles/Vol] 4.4 mmol/L 3.5-5.1 [facility] Sodium [Moles/Vol] 138 mmol/L 136-145 [facility] WBC (Bld) [#/Vol] 7.0 10*3/uL 4.4-11.0 [facility] Blood erythrocytes count (nu mber/volume)Ordered By: Dr. Valdez on 11-30-2022 RBC (Bld) [#/Vol] 4.49 10*6/uL 4.6-6.2 [facility] Blood hemoglobin measurement (mass/volume)Ordered By: Dr. Valdez on 11-30-2022 Hemoglobin (Bld) [Mass/Vol] 15.8 g/dL 13.0-16.5 [facility] Blood lymphocytes/100 leukoc ytesOrdered By: Dr. Valdez on 11-30-2022 Lymphocytes/100 WBC (Bld) 21.8 % 19-41 [facility] Blood monocytes/100 leukocyt esOrdered By: Dr. Valdez on 11-30-2022 Monocytes/100 WBC (Bld) 7.5 % 0-10 [facility] Blood platelet mean volumeOr dered By: Dr. Valdez on 11-30-2022 Platelet mean volume (Bld) [Entitic vol] 10.9 fL 6.2-12.0 [facility] Determination of erythrocyte mean corpuscular volume (MCV)Ordered By: Dr. Valdez on 11-30-2022 MCV (RBC) [Entitic vol] 99.6 fL 80-94 [facility] Hematocrit Auto (Bld) [Volum e fraction]Ordered By: Dr. Valdez on 11-30-2022 Hematocrit (Bld) [Volume fraction] 44.7 % 40-54 [facility] - Chemistry and C hemistry - challengeOrdered By: Dr. Valdez on 11-30-2022 CO2 [Moles/Vol] 26.0 mmol/L 21.0-32.0 [facility] Urea nitrogen/Creatinine [Mass ratio] 27.5 mg/mg 10-20 [facility] - Hematology and Cell countsOrdered By: Dr. Valdez on 11-30-2022 Erythrocyte distribution width (RBC) [Entitic vol] 45.4 fL 35.1-43.9 [facility] Erythrocyte distribution width (RBC) [Ratio] 12.4 % 11.6-14.6 [facility] Immature granulocytes/100 WBC (Bld) 0.300 % 0.0-0.9 [facility] Comment on above: IG% - Immature Granu locytes (promyelocytes, myelocytes and metamyelocytes) > 1% indicates that a LEFT SHIFT is Present. MCH (RBC) [Entitic mass] 35.2 pg 27.0-32.0 [facility] Nucleated RBC/100 WBC (Bld) [Ratio] 0 % 0-5 [facility] MCHC Auto (RBC) [Mass/Vol]Or dered By: Dr. Valdez on 11-30-2022 MCHC (RBC) [Mass/Vol] 35.3 g/dL 32-36 [facility] No Panel InformationOrdered By: Dr. Valdez on 11-30-2022 Estimated GFR (MDRD) Amer 104 mL/min >60 [facility] Comment on above: GFR Calc Estimated GFR (MDRD) Non-Af Amer 86 mL/min >60 [facility] Comment on above: Non- GFR Calc Platelets bldOrdered By: Dr. Valdez on 11-30-2022 Platelets (Bld) [#/Vol] 200 10*3/uL 150-450 [facility] Serum or plasma calcium pauline urement (mass/volume)Ordered By: Dr. Valdez on 11-30-2022 Calcium [Mass/Vol] 9.4 mg/dL 8.5-10.1 [facility] Serum or plasma creatinine m easurement (mass/volume)Ordered By: Dr. Valdez on 11-30-2022 Creatinine [Mass/Vol] 0.91 mg/dL 0.70-1.30 [facility] Comment on above: The validity of the calculated GFR & GFRAA in patients over 70 years has not been determined. Clinical correlation is essential. Serum or plasma urea nitroge n measurement (mass/volume)Ordered By: Dr. Valdez on 11-30-2022 Urea nitrogen [Mass/Vol] 25 mg/dL 7-18 [facility] Thin prep Papanicolaou smear with manual screeningOrdered By: Dr. Valdez on 11-30-2022 Thin prep Papanicolaou smear with manual screening 6 5-15 [facility] Absolute lymphocyte countOrd ered By: Dr. Alonzo on 10-29-2022 Lymphocytes Auto (Unsp spec) [#/Vol] 1.20 10*3/uL 0.83-4.51 [facility] Basophil percentageOrdered B y: Dr. Alonzo on 10-29-2022 Basophils/100 WBC (Bld) 0.7 % 0-1 [facility] Bilirubin [Mass/Vol] 0.50 mg/dL 0.20-1.00 [facility] Comment on above: For patients on eltr ombopag therapy, use of Dimension [place] TBIL is not recommended. Chloride [Moles/Vol] 105 mmol/L 98-107 [facility] Cholesterol [Mass/Vol] 227 mg/dL <200 [facility] Comment on above: <200 mg/dL Desirable 200-240 mg/dL Borderline >240 mg/dL High Risk Eosinophils/100 WBC (Bld) 5.5 % 0-5 [facility] Glucose [Mass/Vol] 93 mg/dL 74-106 [facility] Neutrophils (Bld) [#/Vol] 3.7 10*3/uL 2.0-7.7 [facility] Neutrophils/100 WBC (Bld) 64.9 % 47-70 [facility] Potassium [Moles/Vol] 4.2 mmol/L 3.5-5.1 [facility] Protein [Mass/Vol] 7.1 g/dL 6.4-8.2 [facility] Sodium [Moles/Vol] 140 mmol/L 136-145 [facility] Triglyceride [Mass/Vol] 88 mg/dL <199 [facility] Comment on above: The drugs N-Acetylcy steine and Metamizole may falsely depress this assay.Serum Triglycerides Reference Interval Normal <150 mg/dL Borderline high 150 - 199 mg/dL High 200 - 499 mg/dL Very High > or = 500 mg/dL WBC (Bld) [#/Vol] 5.6 10*3/uL 4.4-11.0 [facility] Blood erythrocytes count (nu mber/volume)Ordered By: Dr. Alonzo on 10-29-2022 RBC (Bld) [#/Vol] 4.46 10*6/uL 4.6-6.2 [facility] Blood hemoglobin measurement (mass/volume)Ordered By: Dr. Alonzo on 10-29-2022 Hemoglobin (Bld) [Mass/Vol] 15.3 g/dL 13.0-16.5 [facility] Blood lymphocytes/100 leukoc ytesOrdered By: Dr. Alonzo on 10-29-2022 Lymphocytes/100 WBC (Bld) 21.4 % 19-41 [facility] Blood monocytes/100 leukocyt esOrdered By: Dr. Alonzo on 10-29-2022 Monocytes/100 WBC (Bld) 7.1 % 0-10 [facility] Blood platelet mean volumeOr dered By: Dr. Alonzo on 10-29-2022 Platelet mean volume (Bld) [Entitic vol] 11.1 fL 6.2-12.0 [facility] Determination of erythrocyte mean corpuscular volume (MCV)Ordered By: Dr. Alonzo on 10-29-2022 MCV (RBC) [Entitic vol] 98.4 fL 80-94 [facility] Hematocrit Auto (Bld) [Volum e fraction]Ordered By: Dr. Alonzo on 10-29-2022 Hematocrit (Bld) [Volume fraction] 43.9 % 40-54 [facility] Laboratory - Chemistry and C hemistry - challengeOrdered By: Dr. Alonzo on 10-29-2022 ALP [Catalytic activity/Vol] 74 U/L 45-117 [facility] ALT [Catalytic activity/Vol] 26 U/L 16-61 [facility] CO2 [Moles/Vol] 26.0 mmol/L 21.0-32.0 [facility] Globulin (S) [Mass/Vol] 3.1 g/dL 2.2-4.2 [facility] Urea nitrogen/Creatinine [Mass ratio] 22.2 mg/mg 10-20 [facility] Laboratory - Hematology and Cell countsOrdered By: Dr. Alonzo on 10-29-2022 Erythrocyte distribution width (RBC) [Entitic vol] 44.5 fL 35.1-43.9 [facility] Erythrocyte distribution width (RBC) [Ratio] 12.3 % 11.6-14.6 [facility] Immature granulocytes/100 WBC (Bld) 0.400 % 0.0-0.9 [facility] Comment on above: IG% - Immature Granu locytes (promyelocytes, myelocytes and metamyelocytes) > 1% indicates that a LEFT SHIFT is Present. MCH (RBC) [Entitic mass] 34.3 pg 27.0-32.0 [facility] Nucleated RBC/100 WBC (Bld) [Ratio] 0 % 0-5 [facility] Auto (RBC) [Mass/Vol]Or dered By: Dr. Alonzo on 10-29-2022 MCHC (RBC) [Mass/Vol] 34.9 g/dL 32-36 [facility] No Panel InformationOrdered By: Dr. Alonzo on 10-29-2022 Estimated GFR (MDRD) Amer 105 mL/min >60 [facility] Comment on above: GFR Calc Estimated GFR (MDRD) Non-Af Amer 87 mL/min >60 [facility] Comment on above: Non- GFR Calc Vitamin D 25-Hydroxy 106.3 ng/mL [facility] Comment on above: Vitamin D 25(OH) [...] 10-29-2022 Platelets (Bld) [#/Vol] 195 10*3/uL 150-450 [facility] Serum or plasma albumin pauline urement (mass/volume)Ordered By: Dr. Alonzo on 10-29-2022 Albumin [Mass/Vol] 4.0 g/dL 3.2-5.0 [facility] Serum or plasma albumin/glob ulin mass ratioOrdered By: Dr. Alonzo on 10-29-2022 Albumin/Globulin [Mass ratio] 1.3 {ratio} 0.9-2.4 [facility] Serum or plasma calcium pauline urement (mass/volume)Ordered By: Dr. Alonzo on 10-29-2022 Calcium [Mass/Vol] 9.4 mg/dL 8.5-10.1 [facility] Serum or plasma cholesterol in HDL measurement (mass/volume)Ordered By: Dr. Alonzo on 10-29-2022 Cholesterol in HDL [Mass/Vol] 74 mg/dL >40 [facility] Comment on above: The drugs N-Acetylcy steine and Metamizole may falsely depress this assay. Reference Range HDL <40 mg/dL Low HDL Cholesterol HDL >or= 60 mg/dL High HDL Cholesterol Serum or plasma cholesterol in VLDL measurement (mass/volume)Ordered By: Dr. Alonzo on 10-29-2022 Cholesterol in VLDL [Mass/Vol] 18 mg/dL 5-40 [facility] Serum or plasma creatinine m easurement (mass/volume)Ordered By: Dr. Alonzo on 10-29-2022 Creatinine [Mass/Vol] 0.90 mg/dL 0.70-1.30 [facility] Comment on above: The validity of the calculated GFR & GFRAA in patients over 70 years has not been determined. Clinical correlation is essential. Serum or plasma low density lipoprotein (LDL) cholesterol measurement (mass/volume)Ordered By: Dr. Alonzo on 10-29-2022 Cholesterol in LDL [Mass/Vol] 135 mg/dL 0-130 [facility] Serum or plasma urea nitroge n measurement (mass/volume)Ordered By: Dr. Alonzo on 10-29-2022 Urea nitrogen [Mass/Vol] 20 mg/dL 7-18 [facility] Thin prep Papanicolaou smear with manual screeningOrdered By: Dr. Alonzo on 10-29-2022 Thin prep Papanicolaou smear with manual screening 19 U/L 15-37 [facility] Thin prep Papanicolaou smear with manual screening 9 5-15 [facility] CBC W/AUTO DIFF WBC ([id number])O rdered By: Industrial Roof Plumber on 07-16-2022 Basophils (Bld) [#/Vol] 0.0 10*3/uL Normal 0.0-0.2 [facility]; [facility] Work Phone: Comment on above: PATIENT WAS FASTINGP ERFORMED BY: LabcoV[facility] Medical CenterCclsfp2403 [facility] [id number] Information: NURSE DRAW Basophils/100 WBC (Bld) 1 % Normal [facility]; [facility] Work Phone: Comment on above: PATIENT WAS FASTINGP ERFORMED BY: CLIFF Ma Xqqqxp6199 [facility] [id number] Information: NURSE DRAW Eosinophils (Bld) [#/Vol] 0.3 10*3/uL Normal 0.0-0.4 [facility]; [facility] Work Phone: Comment on above: PATIENT WAS FASTINGP ERFORMED BY: CLIFF [facility] [id number] [id number] Information: NURSE DRAW Eosinophils/100 WBC (Bld) 5 % Normal [facility]; [facility] Work Phone: Comment on above: PATIENT WAS FASTINGP ERFORMED BY: CLIFF Ma Bzohlt48[address] [id number] Information: NURSE DRAW Erythrocyte distribution width (RBC) [Ratio] 12.3 % Normal 11.6-15.4 [facility]; [facility] Work Phone: Comment on above: PATIENT WAS FASTINGP ERFORMED BY: CLIFF Couch[address] [id number] Information: NURSE DRAW Hematocrit (Bld) [Volume fraction] 46.3 % Normal 37.5-51.0 [facility]; [facility] Work Phone: Comment on above: PATIENT WAS FASTINGP ERFORMED BY: Khoa[address] [id number] Information: NURSE DRAW Hemoglobin (Bld) [Mass/Vol] 16.0 g/dL Normal 13.0-17.7 [facility]; [facility] Work Phone: Comment on above: PATIENT WAS FASTINGP ERFORMED BY: CLIFF [address]ouch[address] [id number] Information: NURSE DRAW Immature granulocytes (Bld) [#/Vol] 0.0 10*3/uL Normal 0.0-0.1 [facility]; [facility] Work Phone: Comment on above: PATIENT WAS FASTINGP ERFORMED BY: CLIFF [place] [id number] [facility] [id number] Information: NURSE DRAW Immature granulocytes/100 WBC (Bld) 0 % Normal [facility]; [facility] Work Phone: Comment on above: PATIENT WAS FASTINGP ERFORMED BY: [address] [id number] Information: NURSE DRAW Lymphocytes (Bld) [#/Vol] 1.4 10*3/uL Normal 0.7-3.1 [facility]; [facility] Work Phone: Comment on above: PATIENT WAS FASTINGP ERFORMED BY: CLIFF [address] [id number] Information: NURSE DRAW Lymphocytes/100 WBC (Bld) 25 % Normal [facility]; [facility] Work Phone: Comment on above: PATIENT WAS FASTINGP ERFORMED BY: [address] [id number] Information: NURSE DRAW MCH (RBC) [Entitic mass] 34.5 pg Abnormal 26.6-33.0 [facility]; [facility] Work Phone: Comment on above: PATIENT WAS FASTINGP ERFORMED BY: CLIFF [address] [id number] Information: NURSE DRAW MCHC (RBC) [Mass/Vol] 34.6 g/dL Normal 31.5-35.7 [facility]; [facility] Work Phone: Comment on above: PATIENT WAS FASTINGP ERFORMED BY: [address] [id number] Information: NURSE DRAW MCV (RBC) [Entitic vol] 100 fL Abnormal 79-97 [facility]; [facility] Work Phone: Comment on above: PATIENT WAS FASTINGP ERFORMED BY: [address] [id number] Information: NURSE DRAW Monocytes (Bld) [#/Vol] 0.4 10*3/uL Normal 0.1-0.9 [facility]; [facility] Work Phone: Comment on above: PATIENT WAS FASTINGP ERFORMED BY: CLIFF Ma Sdkxjm9837 [facility] [id number] Information: NURSE DRAW Monocytes/100 WBC (Bld) 7 % Normal [facility]; [facility] Work Phone: Comment on above: PATIENT WAS FASTINGP ERFORMED BY: [address] [id number] Information: NURSE DRAW Neutrophils (Bld) [#/Vol] 3.4 10*3/uL Normal 1.4-7.0 [facility]; [facility] Work Phone: Comment on above: PATIENT WAS FASTINGP ERFORMED BY: [address] [id number] Information: NURSE DRAW Neutrophils/100 WBC (Bld) 62 % Normal [facility]; [facility] Work Phone: Comment on above: PATIENT WAS FASTINGP ERFORMED BY: [address] [id number] Information: NURSE DRAW Platelets (Bld) [#/Vol] 224 10*3/uL Normal 150-450 [facility]; [facility] Work Phone: Comment on above: PATIENT WAS FASTINGP ERFORMED BY: [address] [id number] Information: NURSE DRAW RBC (Bld) [#/Vol] 4.64 10*6/uL Normal 4.14-5.80 [facility] Internal [facility]; [facility] Work Phone: Comment on above: PATIENT WAS FASTINGP ERFORMED BY: [place] [id number] [facility] [id number] Information: NURSE DRAW WBC (Bld) [#/Vol] 5.6 10*3/uL Normal 3.4-10.8 [facility]; [facility] Work Phone: Comment on above: PATIENT WAS FASTINGP ERFORMED BY: CLIFF [facility] Swppxh6745 [facility] [id number] Information: NURSE DRAW METABOLIC PANEL, JENNIFER JIMENEZ ([id number])Ordered By: Industrial Roof Plumber on 07-16-2022 Albumin [Mass/Vol] 4.9 g/dL Abnormal 3.7-4.7 [facility]; [facility] Work Phone: Comment on above: PATIENT WAS FASTINGP ERFORMED BY: CB [facility] Xnrran0536 [address] [facility] [id number]; wellness labs, ok to wait for wellness to review Albumin/Globulin [Mass ratio] 2.6 {ratio} Abnormal 1.2-2.2 [facility]; [facility] Work Phone: Comment on above: PATIENT WAS FASTINGP ERFORMED BY: CB [facility] Kzhvdv8150 [facility] [id number]; wellness labs, ok to wait for wellness to review ALP [Catalytic activity/Vol] 91 U/L Normal 44-121 [facility]; [facility] Work Phone: Comment on above: PATIENT WAS FASTINGP ERFORMED BY: CB [facility] Akyldm4198 [address] [facility] [id number]; wellness labs, ok to wait for wellness to review ALT [Catalytic activity/Vol] 24 U/L Normal 0-44 [facility]; [facility] Work Phone: Comment on above: PATIENT WAS FASTINGP ERFORMED BY: CB [facility] Tujvia1305 [address] [facility] [id number]; wellness labs, ok to wait for wellness to review AST [Catalytic activity/Vol] 25 U/L Normal 0-40 [facility]; [facility] Work Phone: Comment on above: PATIENT WAS FASTINGP ERFORMED BY: CB [facility] Gvovky3192 [address] [facility] [id number]; wellness labs, ok to wait for wellness to review Bilirubin [Mass/Vol] 0.3 mg/dL Normal 0.0-1.2 Comp rehensive Internal [facility]; [facility] Work Phone: Comment on above: PATIENT WAS FASTINGP ERFORMED BY: CLIFF [employer] Frrevx9225 [facility] [id number]; wellness labs, ok to wait for wellness to review Calcium [Mass/Vol] 9.8 mg/dL Normal 8.6-10.2 [facility] Internal [facility]; [facility] Work Phone: Comment on above: PATIENT WAS FASTINGP ERFORMED BY: LabTorrent LoadingSystemsrp Tfgbdo5521 [facility] [id number]; wellness labs, ok to wait for wellness to review Chloride [Moles/Vol] 103 mmol/L Normal 96-106 [facility] rehensive Internal Medicine; [facility] Work Phone: Comment on above: PATIENT WAS FASTINGP ERFORMED BY: [employer] Sduwfj2611 [facility] [id number]; wellness labs, ok to wait for wellness to review CO2 [Moles/Vol] 21 mmol/L Normal 20-29 [facility]; [facility] Work Phone: Comment on above: PATIENT WAS FASTINGP ERFORMED BY: [employer] Jyxebk1679 [facility] [id number]; wellness labs, ok to wait for wellness to review Creatinine [Mass/Vol] 0.92 mg/dL Normal 0.76-1.27 [facility] prehensive Internal Medicine; [facility] Work Phone: Comment on above: PATIENT WAS FASTINGP ERFORMED BY: [employer] Oesone2187 [facility] [id number]; wellness labs, ok to wait for wellness to review GFR/1.73 sq M.predicted among non-blacks MDRD (S/P/Bld) [Vol rate/Area] 86 mL/min/{1.73_m2} Normal Comprehensiv e [facility]; [facility] Work Phone: Comment on above: PATIENT WAS FASTINGP ERFORMED BY: [employer] Ipbiqm5048 [facility] [id number]; wellness labs, ok to wait for wellness to review Globulin (S) [Mass/Vol] 1.9 g/dL Normal 1.5-4.5 [facility] Internal [facility]; [facility] Work Phone: Comment on above: PATIENT WAS FASTINGP ERFORMED BY: [facility] Qnrsig9296 [facility] [id number]; wellness labs, ok to wait for wellness to review Glucose [Mass/Vol] 94 mg/dL Normal 70-99 [facility]; [facility] Work Phone: Comment on above: PATIENT WAS FASTINGP ERFORMED BY: [facility] Tqlxbo7775 [facility] [id number]; wellness labs, ok to wait for wellness to review Potassium [Moles/Vol] 4.7 mmol/L Normal 3.5-5.2 [facility] Internal Medicine; [facility] Work Phone: Comment on above: PATIENT WAS FASTINGP ERFORMED BY: LabAsp[facility]6370 [facility] [id number]; wellness labs, ok to wait for wellness to review Protein [Mass/Vol] 6.8 g/dL Normal 6.0-8.5 [facility]; [facility] Work Phone: Comment on above: PATIENT WAS FASTINGP ERFORMED BY: [facility] Lgbfub4484 [facility] [id number]; wellness labs, ok to wait for wellness to review Sodium [Moles/Vol] 141 mmol/L Normal 134-144 [facility]; [facility] Work Phone: Comment on above: PATIENT WAS FASTINGP ERFORMED BY: [facility] Jkfltq9721 [facility] [id number]; wellness labs, ok to wait for wellness to review Urea nitrogen [Mass/Vol] 25 mg/dL Normal 8-27 [facility]; [facility] Work Phone: Comment on above: PATIENT WAS FASTINGP ERFORMED BY: CLIFF [facility] Sejwsc2240 [address] [facility] [place] [id number]; wellness labs, ok to wait for wellness to review Urea nitrogen/Creatinine [Mass ratio] 27 mg/mg Abnormal - [facility]; [facility] Work Phone: Comment on above: PATIENT WAS FASTINGP ERFORMED BY: CLIFF [facility] Uizgyf9986 [address] [facility] [place] [id number]; wellness labs, ok to wait for wellness to review URINALYSIS, W/ MICRO ([id number]) Ordered By: Industrial Roof Plumber on 07-16-2022 Appearance (U) Cloudy Abnormal Comprehens bari Internal Medicine; [facility] Work Phone: Comment on above: PATIENT WAS FASTINGP ERFORMED BY: CLIFF Anil Irbxzp5899 [address] [facility] [id number] Bilirubin Ql (U) Negative Normal Comprehe nsive Internal Medicine; [facility] Work Phone: Comment on above: PATIENT WAS FASTINGP ERFORMED BY: CLIFF Khoasaint [facility] Lweawi4255 [address] [facility] [id number] Color (U) Yellow Normal [facility]; [facility] Work Phone: Comment on above: PATIENT WAS FASTINGP ERFORMED BY: CLIFF Anilkristopher JohnsonVjdksd5603 [address] [facility] [id number] Glucose Ql (U) Negative Normal Comprehens bari [facility]; [facility] Work Phone: Comment on above: PATIENT WAS FASTINGP ERFORMED BY: CLIFF [facility]6370 [address] [facility] [id number] Hemoglobin Ql (U) Negative Normal Compreh ensive Internal Medicine; [facility] Work Phone: Comment on above: PATIENT WAS FASTINGP ERFORMED BY: CLIFF [facility] Rjhcko0587 [address] [facility] [place] [id number] Ketones Ql (U) Negative Normal Comprehens bari [facility]; [facility] Work Phone: Comment on above: PATIENT WAS FASTINGP ERFORMED BY: CLIFF [facility]6370 [facility] [place] [id number] Leukocyte esterase Test strip Ql (U) Negative Normal [facility]; [facility] Work Phone: Comment on above: PATIENT WAS FASTINGP ERFORMED BY: CLIFF Oliva6370 [address]Dublin [place] [id number] Microscopic observation LM Nom (Urine sed) MICRON Normal [facility]; [facility] Work Phone: Comment on above: Microscopic follows if indicated. PATIENT WAS FASTINGP ERFORMED BY: CLIFF [facility] Xtrimy1164 [address] Roadbl[address] [place] [id number] Microscopic observation LM Nom (Urine sed) See below: Normal [facility]; [facility] Work Phone: Comment on above: Microscopic was kamryn cated and was performed. PATIENT WAS FASTINGP ERFORMED BY: CLIFF [facility] Kwrdhs1672 [address] [facility] [place] [id number] Nitrite Ql (U) Negative Normal Comprehens bari [facility]; [facility] Work Phone: Comment on above: PATIENT WAS FASTINGP ERFORMED BY: [facility] Iwotnf6731 [address] [facility] [place] [id number] pH (U) 8.0 [pH] Abnormal 5.0-7.5 [facility]; [facility] Work Phone: Comment on above: PATIENT WAS FASTINGP ERFORMED BY: [facility] Svilko7704 [address] [facility] [place] [id number] Protein Ql (U) Negative Normal Comprehens bari [facility]; [facility] Work Phone: Comment on above: PATIENT WAS FASTINGP ERFORMED BY: [facility] Mumrrs4299 [address] [facility] [place] [id number] Specific gravity (U) [Rel density] 1.020 1 Normal 1.005-1.030 [facility]; [facility] Work Phone: Comment on above: PATIENT WAS FASTINGP ERFORMED BY: [facility] Nbxabg5974 [address] RoadDublin [place] [id number] Urobilinogen (U) [Mass/Vol] 0.2 mg/dL Normal 0.2-1.0 [facility]; [facility] Work Phone: Comment on above: PATIENT WAS FASTINGP ERFORMED BY: The Innovation FactoryVirtua Our [facility]our[facility] Medical CenterRmimpc2273 [facility] [id number] No Panel Informationon 05-09 Follicle Stimulating Hormone 68.8 mIU/mL [facility] Work Phone: Comment on above: NORMAL REFERENCE RAN GES FEMALE FOLLICULAR 2.3 - 12.6 mIU/mL MID-CYCLE PEAK 5.2 - 17.5 mIU/mL LUTEAL 1.7 - 12.9 mIU/mL POST-MENOPAUSAL ON MHT 5.9 - 72.8 mIU/mL NOT ON MHT 12.7 - 132.2 mlU/mL MALE 0.7 - 10.8 mIU/mL HCG Beta Subunit 3 mIU/mL 0-3 [facility] Work Phone: Comment on above: Ifbyphone ECLIA methodol ogyPerformed at: CitizengineVirtua Our Lady [facility] Lourdes Medical CenterAogtnr5268 [place], [place] [id number] Director: Brennan Pascual PhD, Phone: [phone] Luteinizing Hormone 31.5 mIU/mL [facility] Work Phone: Comment on above: NORMAL REFERENCE RAN GES FEMALE FOLLICULAR 1.9 - 26.2 mIU/mL MID-CYCLE PEAK 22.8 - 76.1 mIU/mL LUTEAL 0.6 - 16.6 mIU/mL POST-MENOPAUSAL ON MHT 1.1 - 52.4 mIU/mL NOT ON MHT 8.6 - 61.8 mIU/mL MALE 1.2 - 10.6 mIU/mL Serum or plasma estradiol (E 2) measurement (mass/volume)on 05-09-2022 E2 [Mass/Vol] 33.7 pg/mL [facility] Work Phone: Comment on above: NORMAL REFERENCE [...] asurement (mass/volume)on 05-09-2022 Prolactin [Mass/Vol] 10.9 ng/mL [facility] Work Phone: Comment on above: NORMAL REFERENCE RAN GES FEMALE NON- 2.2 - 30.3 ng/mL 8.1 - 347.6 ng/mL POST-MENOPAUSAL 0.7 - 31.5 ng/mL MALE 2.5 - 17.4 ng/mL CNPNon 04-20-2022 CNPN Telephone ([facility]) JUNG ABURTO ([id number]) 1945 M Date Time Provider Department 04/20/22 [...] Encounter Status:Closed by KIRSTIE LOPEZ on 04/20/22 [facility] CNOVon 04-17-2022 CNOV Office Visit (GENSWS ) JUNG ABURTO ([id number]) 1945 M Date Time Provider Department 04/17/22 1:20 PM MAL JOSEPH GENSWS During your visit today, we recorded the [...] the procedure well. Referring Provider: MAL JOSEPH [[id number]] Allergies As of Date: 04/17/2022 (No Known Allergies) Date Reviewed: 04/10/2022 Reviewed by: Kirstie Lopez RN - Fully Assessed Reason for Visit: Procedure [88] Cmt: Right Breast Biopsy Primary Visit Diagnosis:Subareolar mass of right breast [N63.41] Order(s):US BREAST BIOPSY RIGHT (POC) SURG USE ONLY [0562340] Order #: [id number]. #:[id number]: 1 SURGICAL PATHOLOGY [[id number]] Order #: [id number]. #:[id number] Prescriptions as of 04/17/2022 - atorvastatin (LIPITOR) [...] Status:Closed by MAL JOSEPH on 04/17/22 Normal [facility] SURGICAL PATHOLOGYon CASE REPORT Normal [facility] Comment on above: Order Comment: Ernestine cruz Type: TISSUE SPECIMEN Ordering Facility: [facility] Address: [address] [place] [address] Result Comment: Surg ical Pathology Report Case: [id number] Authorizing Provider: Mal Joseph MD Collected: 04/17/2022 02:10 PM Ordering Location: General Surgery Received: 04/17/2022 03:27 PM Pathologist: Laure Irvin MD Specimen: BREAST CORE BIOPSY RIGHT, Right Breast Performed By: #### S #### [facility] CLIA [id number] [address] [place] [address] [place] CLINICAL HISTORY Right Breast Mass [facility] Comment on above: Order Comment: Ernestine cruz Type: TISSUE SPECIMEN Ordering Facility: [facility] Address: [address] [place] [address] Performed By: #### S #### [facility] CLIA [id number] [address] [place] [address] DIAGNOSIS COMMENT Multiple deeper leve ls were examined. Clinical and radiographic correlation is suggested. Normal [facility] Comment on above: Order Comment: Ernestine cruz Type: TISSUE SPECIMEN Ordering Facility: [facility] Address: [address] [place] [address] Performed By: #### S #### [facility] CLIA [id number] [address] [place] [address] [place] FINAL DIAGNOSIS Normal [facility] Comment on above: Order Comment: Speci nancy Type: TISSUE SPECIMEN Ordering Facility: [facility] Address: [address] [place] [address] Result Comment: A. R ight breast, needle core biopsy: - Benign breast ducts with focal epithelial hypercellularity in a background of paucicellular stroma with prominent vasculature and scattered foci of chronic lymphocytic inflammation, compatible with gynecomastia in the proper clinical and radiographic context. GL/JVA 04/18/2022 Performed By: #### S #### [facility] CLIA [id number] [address] [place] [address] OF [place] FINAL PERFORMING LAB Normal [facility] Comment on above: Order Comment: Speci nancy Type: TISSUE SPECIMEN Ordering Facility: [facility] Address: [address] [place] [address] Result Comment: Diag nostic interpretation performed at [facility], [address] [place] [address] CLIA# [id number] [place] Administrator: Nnamdi Burgos M.D. Performed By: #### S #### [facility] CLIA [id number] [address] [place] [address] OF [facility] GROSS DESCRIPTION Normal [place] Comment on above: Order Comment: Speci nancy Type: TISSUE SPECIMEN Ordering Facility: [facility] Address: [address] [place] [address] Result Comment: A. B REAST CORE BIOPSY [...] in one cassette. Gross examination performed at [facility], [address] [place] [address]., [place] [address] JT 04/17/2022 10:23 PM Performed By: #### S #### [facility] CLIA [id number] [address] [place] [address] DESK [id number]IL[place] [id number] [place] US BREAST BIOPSY RIGHT (POC) SURG USE ONLYon 04-17-2022 [facility] CNOVon 04-10-2022 CNOV Office Visit (GENSWS ) JUNG ABURTO ([id number]) 1945 M Date Time Provider Department 04/10/22 9:30 AM MAL JOSEPHS During your visit today, we recorded the [...] at the request of Dr. Francheska Alonzo, DO for my opinion and advice regarding [...] daily. 0 (more content not included)... Normal [facility] Basophil percentageon 2021 Bilirubin [Mass/Vol] 0.60 mg/dL 0.20-1.00 [facility] Work Phone: Comment on above: For patients on eltr ombopag therapy, use of Dimension [place] TBIL is not recommended. Chloride [Moles/Vol] 106 mmol/L 98-107 [facility] Work Phone: Cholesterol [Mass/Vol] 200 mg/dL <200 [facility] Work Phone: Comment on above: <200 mg/dL Desirable 200-240 mg/dL Borderline >240 mg/dL High Risk Glucose [Mass/Vol] 97 mg/dL 74-106 [facility] Work Phone: Potassium [Moles/Vol] 4.0 mmol/L 3.5-5.[address] [facility] Work Phone: Protein [Mass/Vol] 7.1 g/dL 6.4-8.2 [facility] Work Phone: Sodium [Moles/Vol] 137 mmol/L 136-145 [facility] Work Phone: Triglyceride [Mass/Vol] 63 mg/dL <199 [facility] Work Phone: Comment on above: The drugs N-Acetylcy steine and Metamizole may falsely depress this assay.Serum Triglycerides Reference Interval Normal <150 mg/dL Borderline high 150 - 199 mg/dL High 200 - 499 mg/dL Very High > or = 500 mg/dL Laboratory - Chemistry and C hemistry - challengeon 01-19-2022 ALP [Catalytic activity/Vol] 78 U/L 45-117 [facility] Work Phone: ALT [Catalytic activity/Vol] 27 U/L 16-61 [facility] Work Phone: CO2 [Moles/Vol] 25.0 mmol/L 21.0-32.0 [facility] Work Phone: Globulin (S) [Mass/Vol] 3.3 g/dL 2.2-4.2 [facility] Work Phone: Urea nitrogen/Creatinine [Mass ratio] 23.4 mg/mg 10-20 [facility] Work Phone: No Panel Informationon 01-19 Estimated GFR (MDRD) Amer 86 mL/min >60 [facility] Work Phone: Comment on above: GFR Calc Estimated GFR (MDRD) Non-Af Amer 71 mL/min >60 [facility] Work Phone: Comment on above: Non- GFR Calc Prostate Specific Antigen Screen 1.90 ng/mL 0.00-4.00 [facility] Work Phone: Comment on above: This test was perfor med using the TPSA assay method for theNominum chemistry system. Values obtained with differentassay methods cannot be used interchangably.When changing PSA assays in the course of monitoring apatient, additional sequential testing should be carriedout to confirm baseline values. Serum or plasma albumin pauline urement (mass/volume)on 01-19-2022 Albumin [Mass/Vol] 3.8 g/dL 3.2-5.0 [facility] Work Phone: Serum or plasma albumin/glob ulin mass ratioon 01-19-2022 Albumin/Globulin [Mass ratio] 1.2 {ratio} 0.9-2.4 [facility] Work Phone: Serum or plasma calcium pauline urement (mass/volume)on 01-19-2022 Calcium [Mass/Vol] 9.2 mg/dL 8.5-10.1 [facility] Work Phone: Serum or plasma cholesterol in HDL measurement (mass/volume)on 01-19-2022 Cholesterol in HDL [Mass/Vol] 77 mg/dL >40 [facility] Work Phone: Comment on above: The drugs N-Acetylcy steine and Metamizole may falsely depress this assay. Reference Range HDL <40 mg/dL Low HDL Cholesterol HDL >or= 60 mg/dL High HDL Cholesterol Serum or plasma cholesterol in VLDL measurement (mass/volume)on 01-19-2022 Cholesterol in VLDL [Mass/Vol] 13 mg/dL 5-40 [facility] Work Phone: Serum or plasma creatinine m easurement (mass/volume)on 01-19-2022 Creatinine [Mass/Vol] 1.07 mg/dL 0.70-1.30 [facility] Work Phone: Comment on above: The validity of the calculated GFR & GFRAA in patients over 70 years has not been determined. Clinical correlation is essential. Serum or plasma low density lipoprotein (LDL) cholesterol measurement (mass/volume)on 01-19-2022 Cholesterol in LDL [Mass/Vol] 110 mg/dL 0-130 [facility] Work Phone: Serum or plasma urea nitroge n measurement (mass/volume)on 01-19-2022 Urea nitrogen [Mass/Vol] 25 mg/dL 7-18 [facility] Work Phone: Thin prep Papanicolaou smear with manual screeningon 01-19-2022 Thin prep Papanicolaou smear with manual screening 22 U/L 15-37 [facility] Work Phone: Thin prep Papanicolaou smear with manual screening 6 5-15 [facility] Work Phone: Basophil percentageon 2021 Bilirubin [Mass/Vol] 0.50 mg/dL 0.20-1.00 [facility] Work Phone: Comment on above: For patients on eltr ombopag therapy, use of Dimension [place] TBIL is not recommended. Chloride [Moles/Vol] 104 mmol/L 98-107 [facility] Work Phone: Cholesterol [Mass/Vol] 230 mg/dL <200 [facility] Work Phone: Comment on above: <200 mg/dL Desirable 200-240 mg/dL Borderline >240 mg/dL High Risk Glucose [Mass/Vol] 89 mg/dL 74-106 [facility] Work Phone: Potassium [Moles/Vol] 4.1 mmol/L 3.5-5.1 [facility] Work Phone: Protein [Mass/Vol] 7.6 g/dL 6.4-8.2 [facility] Work Phone: Sodium [Moles/Vol] 138 mmol/L 136-145 [facility] Work Phone: Triglyceride [Mass/Vol] 83 mg/dL [facility] Work Phone: Comment on above: The drugs N-Acetylcy steine and Metamizole may falsely depress this assay.Serum Triglycerides Reference Interval Normal <150 mg/dL Borderline high 150 - 199 mg/dL High 200 - 499 mg/dL Very High > or = 500 mg/dL Laboratory - Chemistry and C hemistry - challengeon 10-05-2021 ALP [Catalytic activity/Vol] 85 U/L 45-117 [facility] Work Phone: ALT [Catalytic activity/Vol] 25 U/L 16-61 [facility] Work Phone: CO2 [Moles/Vol] 27.0 mmol/L 21.0-32.0 [facility] Work Phone: Globulin (S) [Mass/Vol] 3.5 g/dL 2.2-4.2 [facility] Work Phone: Urea nitrogen/Creatinine [Mass ratio] 22.3 mg/mg 10-20 [facility] Work Phone: No Panel Informationon 10-05 Estimated GFR (MDRD) Amer 95 mL/min >60 [facility] Work Phone: Comment on above: GFR Calc Estimated GFR (MDRD) Non-Af Amer 78 mL/min >60 [facility] Work Phone: Comment on above: Non- GFR Calc Hepatitis C Antibody Non-Reactive Nonreactive [facility] Work Phone: Comment on above: Non Reactive: < 0.8 Equivocal: >/= 0.8 to < 1.0 Reactive: >/= 1.0The CDC recommends that a reactive/equivocal HCV antibody result be followed up by the HCV Nucleic Acid Amplificationtest (752154) Vitamin B12 Level > 2000 pg/mL 211-[address] [facility] Work Phone: Serum or plasma albumin pauline urement (mass/volume)on 10-05-2021 Albumin [Mass/Vol] 4.1 g/dL 3.2-5.[facility] Work Phone: Serum or plasma albumin/glob ulin mass ratioon 10-05-2021 Albumin/Globulin [Mass ratio] 1.2 {ratio} 0.9-2.4 [facility] Work Phone: Serum or plasma calcium pauline urement (mass/volume)on 10-05-2021 Calcium [Mass/Vol] 9.1 mg/dL 8.5-10.1 [facility] Work Phone: Serum or plasma cholesterol in HDL measurement (mass/volume)on 10-05-2021 Cholesterol in HDL [Mass/Vol] 79 mg/dL [facility] Work Phone: Comment on above: The drugs N-Acetylcy steine and Metamizole may falsely depress this assay. Reference Range HDL <40 mg/dL Low HDL Cholesterol HDL >or= 60 mg/dL High HDL Cholesterol Serum or plasma cholesterol in VLDL measurement (mass/volume)on 10-05-2021 Cholesterol in VLDL [Mass/Vol] 17 mg/dL 5-40 [facility] Work Phone: Serum or plasma creatinine m easurement (mass/volume)on 10-05-2021 Creatinine [Mass/Vol] 0.99 mg/dL 0.70-1.30 [facility] Work Phone: Comment on above: The validity of the calculated GFR & GFRAA in patients over 70 years has not been determined. Clinical correlation is essential. Serum or plasma folate measu rement (mass/volume)on 10-05-2021 Folate [Mass/Vol] 57.20 ng/mL 3.1-55.4 [facility] Work Phone: Serum or plasma low density lipoprotein (LDL) cholesterol measurement (mass/volume)on 10-05-2021 Cholesterol in LDL [Mass/Vol] 134 mg/dL 0-130 [facility] Work Phone: Serum or plasma urea nitroge n measurement (mass/volume)on 10-05-2021 Urea nitrogen [Mass/Vol] 22 mg/dL 7-18 [facility] Work Phone: Thin prep Papanicolaou smear with manual screeningon 10-05-2021 Thin prep Papanicolaou smear with manual screening 18 U/L 15-37 [facility] Work Phone: Thin prep Papanicolaou smear with manual screening 7 5-15 [facility] Work Phone: CBC, PLATELETS & MANUAL DIFF ([id number])Ordered By: Industrial Roof Plumber on 06-05-2021 Basophils (Bld) [#/Vol] 0.1 10*3/uL Normal 0.0-0.2 [facility]; [facility] Work Phone: Comment on above: PATIENT WAS FASTINGP ERFORMED BY: CLIFF Ma [id number] [facility] [id number] Information: NURSE DRAW; wellness labs Basophils/100 WBC (Bld) 1 % Normal [facility]; [facility] Work Phone: Comment on above: PATIENT WAS FASTINGP ERFORMED BY: [address] [id number] Information: NURSE DRAW; wellness labs Eosinophils (Bld) [#/Vol] 0.3 10*3/uL Normal 0.0-0.4 [facility]; [facility] Work Phone: Comment on above: PATIENT WAS FASTINGP ERFORMED BY: [address] [id number] Information: NURSE DRAW; wellness labs Eosinophils/100 WBC (Bld) 4 % Normal [facility]; [facility] Work Phone: Comment on above: PATIENT WAS FASTINGP ERFORMED BY: [address] [id number] Information: NURSE DRAW; wellness labs Erythrocyte distribution width (RBC) [Ratio] 12.3 % Normal 11.6-15.4 [facility]; [facility] Work Phone: Comment on above: PATIENT WAS FASTINGP ERFORMED BY: [address] [id number] Information: NURSE DRAW; wellness labs Hematocrit (Bld) [Volume fraction] 47.4 % Normal 37.5-51.0 [facility]; [facility] Work Phone: Comment on above: PATIENT WAS FASTINGP ERFORMED BY: [address] [id number] Information: NURSE DRAW; wellness labs Hemoglobin (Bld) [Mass/Vol] 16.0 g/dL Normal 13.0-17.7 [facility]; [facility] Work Phone: Comment on above: PATIENT WAS FASTINGP ERFORMED BY: [address] [id number] Information: NURSE DRAW; wellness labs Immature granulocytes (Bld) [#/Vol] 0.0 10*3/uL Normal 0.0-0.1 [facility]; [facility] Work Phone: Comment on above: PATIENT WAS FASTINGP ERFORMED BY: [address] [id number] Information: NURSE DRAW; wellness labs Immature granulocytes/100 WBC (Bld) 0 % Normal [facility]; [facility] Work Phone: Comment on above: PATIENT WAS FASTINGP ERFORMED BY: [address] [id number] Information: NURSE DRAW; wellness labs Lymphocytes (Bld) [#/Vol] 1.5 10*3/uL Normal 0.7-3.1 [facility]; [facility] Work Phone: Comment on above: PATIENT WAS FASTINGP ERFORMED BY: [address] [id number] Information: NURSE DRAW; wellness labs Lymphocytes/100 WBC (Bld) 19 % Normal [facility]; [facility] Work Phone: Comment on above: PATIENT WAS FASTINGP ERFORMED BY: [address] [id number] Information: NURSE DRAW; wellness labs MCH (RBC) [Entitic mass] 33.7 pg Abnormal 26.6-33.0 [facility]; [facility] Work Phone: Comment on above: PATIENT WAS FASTINGP ERFORMED BY: [address] [id number] Information: NURSE DRAW; wellness labs MCHC (RBC) [Mass/Vol] 33.8 g/dL Normal 31.5-35.7 [facility]; [facility] Work Phone: Comment on above: PATIENT WAS FASTINGP ERFORMED BY: CLIFF Richard Oliva6370 [facility] [id number] Information: NURSE DRAW; wellness labs MCV (RBC) [Entitic vol] 100 fL Abnormal 79-97 [facility]; [facility] Work Phone: Comment on above: PATIENT WAS FASTINGP ERFORMED BY: CLIFF Anil [id number] [id number] Information: NURSE DRAW; wellness labs Monocytes (Bld) [#/Vol] 0.5 10*3/uL Normal 0.1-0.9 [facility]; [facility] Work Phone: Comment on above: PATIENT WAS FASTINGP ERFORMED BY: CLIFF Anil [id number] [id number] Information: NURSE DRAW; wellness labs Monocytes/100 WBC (Bld) 6 % Normal [facility]; [facility] Work Phone: Comment on above: PATIENT WAS FASTINGP ERFORMED BY: CLIFF Anil [id number] [id number] Information: NURSE DRAW; wellness labs Neutrophils (Bld) [#/Vol] 5.3 10*3/uL Normal 1.4-7.0 [facility]; [facility] Work Phone: Comment on above: PATIENT WAS FASTINGP ERFORMED BY: CLIFF Anil Yelzfw[address] [id number] Information: NURSE DRAW; wellness labs Neutrophils/100 WBC (Bld) 70 % Normal [facility]; [facility] Work Phone: Comment on above: PATIENT WAS FASTINGP ERFORMED BY: CLIFF Ma [id number] [id number] Information: NURSE DRAW; wellness labs Platelets (Bld) [#/Vol] 226 10*3/uL Normal 150-450 [facility]; [facility] Work Phone: Comment on above: PATIENT WAS FASTINGP ERFORMED BY: CB [facility] Hwwfsu0008 Rodas RoadDublin [place] [id number] Information: NURSE DRAW; wellness labs RBC (Bld) [#/Vol] 4.75 10*6/uL Normal 4.14-5.80 [facility]; [facility] Work Phone: Comment on above: PATIENT WAS FASTINGP ERFORMED BY: CB [facility] Htepvk3712 Rodas RoadDublin [place] [id number] Information: NURSE DRAW; wellness labs WBC (Bld) [#/Vol] 7.6 10*3/uL Normal 3.4-10.8 [facility]; [facility] Work Phone: Comment on above: PATIENT WAS FASTINGP ERFORMED BY: CB [facility] Ulytiw0017 Rodas RoadDosher Memorial Hospitalin [place] [id number] Information: NURSE DRAW; wellness labs METABOLIC PANEL, COMPREHENSI VE ([id number])Ordered By: Industrial Roof Plumber on 06-05-2021 Albumin [Mass/Vol] 4.7 g/dL Normal 3.7-4.7 [facility]; [facility] Work Phone: Comment on above: PATIENT WAS FASTINGP ERFORMED BY: CB [facility] Ydrknh0794 Rodas RoadDublin [place] [id number] Albumin/Globulin [Mass ratio] 2.2 {ratio} Normal 1.2-2.2 [facility]; [facility] Work Phone: Comment on above: PATIENT WAS FASTINGP ERFORMED BY: CB [facility] Rdlwyk4209 Rodas RoadDublin [place] [id number] ALP [Catalytic activity/Vol] 89 U/L Normal 44-121 [facility]; [facility] Work Phone: Comment on above: Please note refere nce interval change PATIENT WAS FASTINGP ERFORMED BY: CB [facility] Dsubll8163 Rodas RoadDublin [place] [id number] ALT [Catalytic activity/Vol] 15 U/L Normal 0-44 [facility]; [facility] Work Phone: Comment on above: PATIENT WAS FASTINGP ERFORMED BY: CB [facility] Frdcgq7722 Rodas RoadDublin [place] [id number] AST [Catalytic activity/Vol] 17 U/L Normal 0-40 [facility]; [facility] Work Phone: Comment on above: PATIENT WAS FASTINGP ERFORMED BY: CB [facility] Hkkqvy1430 Rod[address] RoadDublin [place] [id number] Bilirubin [Mass/Vol] 0.3 mg/dL Normal 0.0-1.2 Comp re[facility]; [facility] Work Phone: Comment on above: PATIENT WAS FASTINGP ERFORMED BY: CB [facility] Ccqnlt0448 Rod[address] RoadDublin [place] [id number] Calcium [Mass/Vol] 9.7 mg/dL Normal 8.6-10.2 [facility]; [facility] Work Phone: Comment on above: PATIENT WAS FASTINGP ERFORMED BY: CB [facility] Xamurm9705 [address] RoadDublin [place] [id number] Chloride [Moles/Vol] 104 mmol/L Normal 96-106 [facility]; [facility] Work Phone: Comment on above: PATIENT WAS FASTINGP ERFORMED BY: CB [facility] Bwziao2233 [address] RoadDublin [place] [id number] CO2 [Moles/Vol] 21 mmol/L Normal 20-29 [facility]; [facility] Work Phone: Comment on above: PATIENT WAS FASTINGP ERFORMED BY: CB [facility] Xzmstn3445 [address] RoadDublin [place] [id number] Creatinine [Mass/Vol] 1.00 mg/dL Normal 0.76-1.27 [facility]; [facility] Work Phone: Comment on above: PATIENT WAS FASTINGP ERFORMED BY: CB [facility] Leexjo3494 [address] RoadDublin [place] [id number] GFR/1.73 sq M.predicted among blacks CKD-EPI (S/P/Bld) [Vol rate/Area] 84 mL/min/1.73 Normal [facility]; [facility] Work Phone: Comment on above: [facility] currently reports eGFR in compliance with the current recommendations of the National Kidney Foundation. [facility] will update reporting as new guidelines are published from the NKF-ASN Task force. PATIENT WAS FASTINGP ERFORMED BY: [facility]6[address]bl[address] [place] [id number] GFR/1.73 sq M.predicted among non-blacks CKD-EPI (S/P/Bld) [Vol rate/Area] 73 mL/min/1.73 Normal [facility]; [facility] Work Phone: Comment on above: PATIENT WAS FASTINGP ERFORMED BY: [facility] [place] [id number] Globulin (S) [Mass/Vol] 2.1 g/dL Normal 1.5-4.5 [facility] Internal [facility]; [facility] Work Phone: Comment on above: PATIENT WAS FASTINGP ERFORMED BY: [facility] [facility] HospitalDublin [place] [id number] Glucose [Mass/Vol] 87 mg/dL Normal 65-99 [facility]; [facility] Work Phone: Comment on above: PATIENT WAS FASTINGP ERFORMED BY: [facility]in[address] [facility]blin [place] [id number] Potassium [Moles/Vol] 4.0 mmol/L Normal 3.5-5.2 [facility] prehensive Internal Medicine; [facility] Work Phone: Comment on above: PATIENT WAS FASTINGP ERFORMED BY: [facility] Mttxlx0863 [address] RoadDublin [place] [id number] Protein [Mass/Vol] 6.8 g/dL Normal 6.0-8.5 [facility]; [facility] Work Phone: Comment on above: PATIENT WAS FASTINGP ERFORMED BY: [facility]in[address] [facility] [id number] Sodium [Moles/Vol] 139 mmol/L Normal 134-144 [facility]; [facility] Work Phone: Comment on above: PATIENT WAS FASTINGP ERFORMED BY: CLIFF [facility] Nxliez[address] [email or web address] Health Caldwell [id number] Urea nitrogen [Mass/Vol] 21 mg/dL Normal 8-27 [facility]; [facility] Work Phone: Comment on above: PATIENT WAS FASTINGP ERFORMED BY: CB [facility] Ptaaly[address] [email or web address] Health Caldwell [id number] Urea nitrogen/Creatinine [Mass ratio] 21 mg/mg Normal 10-24 [facility]; [facility] Work Phone: Comment on above: PATIENT WAS FASTINGP ERFORMED BY: CLIFF [facility] Vtbkdc[address] [email or web address] Health Caldwell [id number] Office Visit: hernia repair f/uon 04-30-2017 Documentation of current medications (procedure) Done Invalid Interpretation Code [facility] [employer] Work Phone: Fall risk assessment No Invalid Interpretation Code [facility] [employer] Work Phone: Tobacco smoking status NHIS Never Invalid Interpretation Code [facility] [employer] Work Phone: Tobacco use CPHS Never smoker Invalid Interpretation Code [facility] [employer] Work Phone: Office Visiton 04-15-2017 Documentation of current medications (procedure) Done Invalid Interpretation Code [facility] [employer] Work Phone: Fall risk assessment No Invalid Interpretation Code [facility] [employer] Work Phone: Tobacco smoking status NHIS Never Invalid Interpretation Code [facility] [employer] Work Phone: Tobacco use CPHS Never smoker Invalid Interpretation Code [facility] [employer] Work Phone: Flow Cytometryon 2017 Comment See Below [facility] Comment on above: Result Comment: Viab ility 7AAD = 92%The B-cells are polytypic and the T-cells show no elmore T-cellantigen deletion. CD4/CD8 ratio is 1.8:1. CD56+ NK-cells andCD57+ T-LGL's are within normal limits. Performed By: #### F LOWG ####[place] [address] Flow Cytometry Rslt: See Sep Report Normal [facility] Comment on above: Result Comment: Thes e tests were developed and their performance characteristicswere determined by [facility]. They may not becleared or approved by the U.S. Food and Drug Administration. TheA has determined that such clearance or approval is not neces-dary. These results may be used for clinical, investigational orfor research purposes, and should be interpreted with other rele-vant clinicopathologic data.Testing performed by: [facility] Naseem Jackson M.D., [place] Administrator [address] [place], [place] [id number] Performed By: #### F LOWG ####[place] [address] Interpretation: See Below [facility] Comment on above: Result Comment: In t he sample analyzed, there is no evidence of B or T-celllymphoproliferative disorders. Performed By: #### F LOWG ####[place] [address] Flow Cytometryon 04-10-2017 Source: Blood Normal [facility] Comment on above: Performed By: #### F LOWG ####[place] [address] Green Venipunctureon 017 Green Venipuncture COMPLETED Normal [facility] Comment on above: Performed By: #### G VENP ####[place] [id number] LD,Total Bloodon 04-09-2017 LD,Total Blood 207 U/L Normal 84-246 [facility] Comment on above: Performed By: #### L DH ####[place] [address] Oncology Hemogram/Diffon Basophils Auto #/vol (Bld) 0.04 thou/cmm Normal 0.00-0.08 [facility] Comment on above: Performed By: #### G OHEM ####[facility] [place], [place] [address] Basophils/100 WBC Auto (Bld) 0.6 % Normal [facility] Comment on above: Performed By: #### G OHEM ####[facility] [place], [place] [address] Eosinophils 0.35 thou/cmm Normal 0.00-0.36 [facility] Comment on above: Performed By: #### G OHEM ####[address] [address] Eosinophils/100 leukocytes 5.1 % Normal [facility] Comment on above: Performed By: #### G OHEM ####[address] [address] Erythrocyte distribution width Auto Ratio (RBC) 11.7 % Low 11.8-14.5 [facility] Comment on above: Performed By: #### G OHEM ####[address] [address] Erythrocytes (RBC) 4.68 mil/cmm Normal 4.22-5.80 [facility] Comment on above: Performed By: #### G OHEM ####[address] [address] Hematocrit (HCT) 44.7 % Normal 39.6-50.7 [facility] Comment on above: Performed By: #### G OHEM ####[address] [address] Hemoglobin mass conc (Bld) 16.2 g/dL Normal 13.2-17.4 [facility] Comment on above: Performed By: #### G OHEM ####[address] [address] Lymphocytes 1.63 thou/cmm Normal 0.68-2.93 [facility] Comment on above: Performed By: #### G OHEM ####[address] [address] Lymphocytes/100 leukocytes 24.0 % Normal [facility] Comment on above: Performed By: #### G OHEM ####[facility] [place] [address] MCH 34.6 pg High 27.4-32.8 [facility] Comment on above: Performed By: #### G OHEM ####[facility] [place] [address] MCHC mass conc (RBC) 36.2 % High 31.9-35.6 [facility] Comment on above: Performed By: #### G OHEM ####[facility] [place] [address] MCV 95.5 fL Normal 81.8-95.6 [facility] Comment on above: Performed By: #### G OHEM ####[place] [address] Monocytes 0.50 thou/cmm Normal 0.19-0.80 [facility] Comment on above: Performed By: #### G OHEM ####[place] [address] Monocytes/100 leukocytes 7.4 % Normal [facility] Comment on above: Performed By: #### G OHEM ####[place] [address] Platelet mean volume (PMV) 11.0 fL Normal 8.8-12.1 [facility] Comment on above: Performed By: #### G OHEM ####[place] [address] Platelets 201 thou/cmm Normal 150-370 [facility] Comment on above: Performed By: #### G OHEM ####[place] [address] Seg Neutrophil 62.9 % Normal [facility] Comment on above: Performed By: #### G OHEM ####[place] [address] Seg. Neut.# 4.28 thou/cmm Normal 1.35-7.21 [facility] Comment on above: Performed By: #### G OHEM ####[facility] [place], [place] [address] WBC (Leukocytes) 6.8 thou/cmm Normal 4.4-9.7 [facility] Comment on above: Performed By: #### G OHEM ####[facility] [place], [place] [address] Uric Acid Bloodon 04-09-2017 Uric Acid Blood 5.6 mg/dL Normal 3.5-7.2 [facility] Comment on above: Performed By: #### U OLIVIA ####[address] [address] Replaced Document: Siddharth FARAH Observationson 09-25-2016 electrocardiogram interpretation Sinus Rhythm Voltage criteria for LVH (R(V5) exceeds 2.60 mV). -Nonspecific ST depression -Seen with left ventricular hypertrophy (strain) or digitalis effect. ABNORMAL Invalid Interpretation Code [facility] [employer] Work Phone: GE use only - for [employer] import when terms are not otherwise specified 436 ms Invalid Interpretation Code [facility] [employer] Work Phone: P wave axis, electrocardiogram 69 deg Invalid Interpretation Code [facility] [employer] Work Phone: FL interval, electrocardiogram 170 ms Invalid Interpretation Code [facility] [employer] Work Phone: Pulse (Heart Rate) 66 /min Invalid Interpretation Code [facility] [employer] Work Phone: QRS axis, electrocardiogram 19 deg Invalid Interpretation Code [facility] [employer] Work Phone: QRS duration, electrocardiogram 94 ms Invalid Interpretation Code [facility] [employer] Work Phone: QT interval, electrocardiogram new path ms Invalid Interpretation Code [facility] [employer] Work Phone: T wave axis, electrocardiogram 41 deg Invalid Interpretation Code [facility] [employer] Work Phone: Clinical Lists Update: [employer] activities coordinator 09-21-2016 Left ventricular Ejection fraction 55 % Invalid Interpretation Code [facility] [employer] Work Phone: Clinical Lists Update: [employer] activities coordinator 06-27-2016 Cholesterol 191 mg/dL Invalid Interpretation Code [facility] [employer] Work Phone: HDL Cholesterol 76 mg/dL Invalid Interpretation Code [facility] [employer] Work Phone: LDL Cholesterol 101 mg/dL Invalid Interpretation Code [facility] [employer] Work Phone: Triglyceride 69 mg/dL Invalid Interpretation Code [facility] [employer] Work Phone: Office Visiton 09-23-2015 General cardiovascular disease 10Y risk [#] H[place].D'Agostino 6 % Invalid Interpretation Code [facility] [employer] Work Phone: Lab Report: Lipid Profileon 09-17-2015 very low density lipoproteins 12 mg/dL Invalid Interpretation Code 5-40 [facility] [employer] Work Phone: Lab Report: Liver Profileon 09-17-2015 Alanine aminotransferase (ALT) 28 U/L Invalid Interpretation Code 12-78 [facility] [employer] Work Phone: Albumin 3.8 g/dL Invalid Interpretation Code 3.4-5.0 [facility] [employer] Work Phone: Alkaline phosphatase (ALP) 75 U/L Invalid Interpretation Code 50-136 [facility] [employer] Work Phone: Aspartate aminotransferase (AST) 18 U/L Invalid Interpretation Code 15-37 [facility] [employer] Work Phone: Bilirubin (direct) 0.14 mg/dL Invalid Interpretation Code 0.00-0.30 [facility] [employer] Work Phone: Bilirubin (total) 0.50 mg/dL Invalid Interpretation Code 0.20-1.00 [facility] [employer] Work Phone: Globulin 3.4 g/dL Invalid Interpretation Code 2.3-3.5 [facility] [employer] Work Phone: Protein 7.2 g/dL Invalid Interpretation Code 6.4-8.2 [facility] [employer] Work Phone: Lab Reporton 07-02-2015 Chloride 105 mmol/L Invalid Interpretation Code [facility] [employer] Work Phone: CO2 23.0 mmol/L Invalid Interpretation Code [facility] [employer] Work Phone: Creatinine 1.19 mg/dL Invalid Interpretation Code [facility] [employer] Work Phone: Potassium 4.0 mmol/L Invalid Interpretation Code [facility] [employer] Work Phone: Sodium 140 mmol/L Invalid Interpretation Code [facility] [employer] Work Phone: Urea nitrogen 21 mg/dL Invalid Interpretation Code [facility] [employer] Work Phone: Office Visiton 08-17-2014 cardiac risk group B Invalid Interpretation Code [facility] [employer] Work Phone: Clinical Lists Update: [employer] park activities coordinator 06-04-2014 Anion gap 9 mmol/L Invalid Interpretation Code [facility] [employer] Work Phone: BUN/Creatinine Ratio 17.3 mg/mg Invalid Interpretation Code [facility] [employer] Work Phone: Erythrocytes (RBC) 4.56 10*6/uL Low [facility] [employer] Work Phone: Glucose 84 mg/dL Invalid Interpretation Code [facility] [employer] Work Phone: Hematocrit (HCT) 44.2 % Invalid Interpretation Code [facility] [employer] Work Phone: Hemoglobin (HGB) 15.9 g/dL Invalid Interpretation Code [facility] [employer] Work Phone: MCH 34.9 pg High [facility] [employer] Work Phone: MCHC 36.0 g/dL Invalid Interpretation Code [facility] [employer] Work Phone: MCV 96.9 fL High [facility] [employer] Work Phone: Platelets 225 10*3/mm3 Invalid Interpretation Code [facility] [employer] Work Phone: Thyroid stimulating hormone (TSH) 1.72 u[iU]/mL Invalid Interpretation Code [facility] [employer] Work Phone: WBC (Leukocytes) 5.6 10*3/uL Invalid Interpretation Code [facility] [employer] Work Phone: Clinical Lists Update: [employer] park activities coordinator 06-06-2012 Albumin/Globulin Ratio 1.1 {ratio} Invalid Interpretation Code [facility] [employer] Work Phone: basophils as percent of blood leukocytes, manual count 0.9 % Invalid Interpretation Code [facility] [employer] Work Phone: Calcium 9.1 mg/dL Invalid Interpretation Code [facility] [employer] Work Phone: eosinophils as percent of blood leukocytes, manual count 7.1 % High [facility] [employer] Work Phone: Globulin 3.5 g/dL Invalid Interpretation Code [facility] [employer] Work Phone: Lymphocytes/100 leukocytes 26.3 % Invalid Interpretation Code [facility] [employer] Work Phone: Monocytes/100 leukocytes 6.5 % Invalid Interpretation Code [facility] [employer] Work Phone: neutrophils, band form as percent of blood leukocytes, manual count 59.2 % Invalid Interpretation Code [facility] [employer] Work Phone: Office Visiton 04-17-2012 Colonoscopy (procedure) Colonoscopy (procedure) Invalid Interpretation Code [facility] [employer] Work Phone: Vital Signs Date Time Vital Sign Value Performing Clinician Facility 03-02-2025 07:20-0400 Body temperature 97.8 [degF] Dr. Francheska Alonzo DO Work Phone: [facility] 03-02-2025 07:20-0400 Diastolic blood pressure 85 mm[Hg] Dr. Francheska Alonzo DO Work Phone: [facility] 03-02-2025 07:20-0400 Heart rate 55 /min Dr. Francheska Alonzo DO Work Phone: [facility] 03-02-2025 07:20-0400 Respiratory rate 18 /min Dr. Francheska Alonzo DO Work Phone: [facility] 03-02-2025 07:20-0400 SaO2% (BldA) [Mass fraction] 100 % Dr. Francheska Alonzo DO Work Phone: [facility] 03-02-2025 07:20-0400 Systolic blood pressure 125 mm[Hg] Dr. Francheska Alonzo DO Work Phone: [facility] 03-02-2025 07:15-0400 Inhaled oxygen flow rate 95 L/min Dr. Francheska Alonzo DO Work Phone: [facility] 03-02-2025 06:01-0400 Body height 182.[address] Francheska Alonzo DO Work Phone: [facility] 03-02-2025 06:01-0400 Body mass index (BMI) [Ratio] 23.1 kg/m2 Dr. Francheska Alonzo DO Work Phone: [facility] 03-02-2025 06:01-0400 Body weight 77.[address] Francheska Alonzo DO Work Phone: [facility] 01-26-2025 12:59-0400 Body height 182.[address] Francheska Alonzo DO Work Phone: [facility] 01-26-2025 12:59-0400 Body mass index (BMI) [Ratio] 23 kg/m2 Dr. Francheska Alonzo DO Work Phone: [facility] 01-26-2025 12:59-0400 Body weight 77.[address] Francheska Alonzo DO Work Phone: [facility] 01-26-2025 12:59-0400 Diastolic blood pressure 67 mm[Hg] Dr. Francheska Alonzo DO Work Phone: [facility] 01-26-2025 12:59-0400 Heart rate 55 /min Dr. Francheska Alonzo DO Work Phone: [facility] 01-26-2025 12:59-0400 Respiratory rate 16 /min Dr. Francheska Alonzo DO Work Phone: [facility] 01-26-2025 12:59-0400 Systolic blood pressure 103 mm[Hg] Dr. Francheska Alonzo DO Work Phone: [facility] 12-03-2023 13:04-0400 Body height 182.[address] Francheska Alonzo Work Phone: [facility] 12-03-2023 13:04-0400 Body mass index (BMI) [Ratio] 23.2 kg/m2 Dr. Francheska Alonzo Work Phone: [facility] 12-03-2023 13:04-0400 Body weight 77.[address] Pritchard Fast Work Phone: [facility] 12-03-2023 13:04-0400 Diastolic blood pressure 74 mm[Hg] Dr. Pritchard Fast Work Phone: [facility] 12-03-2023 13:04-0400 Heart rate 55 /min Dr. Pritchard Fast Work Phone: [facility] 12-03-2023 13:04-0400 Respiratory rate 16 /min Dr. Pritchard Fast Work Phone: [facility] 12-03-2023 13:04-0400 Systolic blood pressure 126 mm[Hg] Dr. Pritchard Fast Work Phone: [facility] 08-05-2023 15:02-0500 Body height 182.[address] Pritchard Fast Work Phone: [facility] 08-05-2023 15:02-0500 Body mass index (BMI) [Ratio] 23.2 kg/m2 Dr. Pritchard Fast Work Phone: [facility] 08-05-2023 15:02-0500 Body weight 77.[address] Pritchard Fast Work Phone: [facility] 08-05-2023 15:02-0500 Respiratory rate 16 /min Dr. Pritchard Fast Work Phone: [facility] 06-03-2023 11:02-0400 Body height 185.42 cm Naida Montenegro [facility] Work Phone: 06-03-2023 11:02-0400 Body mass index (BMI) [Ratio] 23.27 kg/m2 Naida Montenegro [facility] Work Phone: 06-03-2023 11:02-0400 Body surface area Derived from formula 2.04 m2 Naida Montenegro [facility] Work Phone: 06-03-2023 11:02-0400 Body temperature 99 [degF] Naida Montenegro [facility] Work Phone: Comment on above: Method: Thermal Scan 06-03-2023 11:02-0400 Body weight 80 kg Naida Montenegro [facility] Work Phone: 06-03-2023 11:02-0400 Diastolic blood pressure 70 mm[Hg] Naida Montenegro [facility] Work Phone: Comment on above: Patient Position: Sitting; Cuff Location : Left Arm; Cuff Size: Standard 06-03-2023 11:02-0400 Heart rate 61 /min Naida Montenegro [facility] Work Phone: Comment on above: Pattern: Regular 06-03-2023 11:02-0400 Respiratory rate 16 /min Naida Montenegro [facility] Work Phone: Comment on above: Pattern: Unlabored 06-03-2023 11:02-0400 Systolic blood pressure 104 mm[Hg] Naida Montenegro [facility] Work Phone: Comment on above: Patient Position: Sitting; Cuff Location : Left Arm; Cuff Size: Standard 02-25-2023 12:54-0400 Body height 182.[address] Francheska Alonzo Work Phone: [facility] 02-25-2023 12:54-0400 Body mass index (BMI) [Ratio] 24 kg/m2 Dr. Pritchard Fast Work Phone: [facility] 02-25-2023 12:54-0400 Body weight 80.[address] Francheska Alonzo Work Phone: [facility] 02-25-2023 12:54-0400 Diastolic blood pressure 75 mm[Hg] Dr. Francheska Alonzo Work Phone: [facility] 02-25-2023 12:54-0400 Heart rate 52 /min Dr. Francheska Alonzo Work Phone: [facility] 02-25-2023 12:54-0400 SaO2% (BldA) [Mass fraction] 96 % Dr. Pritchard Fast Work Phone: [facility] 02-25-2023 12:54-0400 Systolic blood pressure 143 mm[Hg] Dr. Francheska Alonzo Work Phone: [facility] 02-25-2023 10:38-0400 Body height 185.42 cm Naida Montenegro [facility] Work Phone: 02-25-2023 10:38-0400 Body mass index (BMI) [Ratio] 23.22 kg/m2 Naida Montenegro [facility] Work Phone: 02-25-2023 10:38-0400 Body surface area Derived from formula 2.04 m2 Naida Montenegro [facility] Work Phone: 02-25-2023 10:38-0400 Body temperature 98.2 [degF] Naida Isaisofia [facility] Work Phone: Comment on above: Method: Thermal Scan 02-25-2023 10:38-0400 Body weight 79.83 kg Naida Isaisofia [facility] Work Phone: 02-25-2023 10:38-0400 Diastolic blood pressure 70 mm[Hg] Naida Isaisofia [facility] Work Phone: Comment on above: Patient Position: Sitting; Cuff Location : Left Arm; Cuff Size: Standard 02-25-2023 10:38-0400 Heart rate 63 /min Naida Montenegro [facility] Work Phone: Comment on above: Pattern: Regular 02-25-2023 10:38-0400 Respiratory rate 16 /min Naida Montenegro [facility] Work Phone: Comment on above: Pattern: Unlabored 02-25-2023 10:38-0400 SaO2% (BldA) [Mass fraction] 99 % Naida Montenegro [facility] Work Phone: Comment on above: Room air 02-25-2023 10:38-0400 Systolic blood pressure 118 mm[Hg] Naida Montenegro [facility] Work Phone: Comment on above: Patient Position: Sitting; Cuff Location : Left Arm; Cuff Size: Standard 02-13-2023 08:28-0400 Body temperature 97.6 [degF] Dr. Pritchard Fast Work Phone: [facility] 02-13-2023 08:28-0400 Diastolic blood pressure 86 mm[Hg] Dr. Pritchard Fast Work Phone: [facility] 02-13-2023 08:28-0400 Heart rate 54 /min Dr. Pritchard Fast Work Phone: [facility] 02-13-2023 08:28-0400 Respiratory rate 16 /min Dr. Pritchard Fast Work Phone: [facility] 02-13-2023 08:28-0400 SaO2% (BldA) [Mass fraction] 99 % Dr. Pritchard Fast Work Phone: [facility] 02-13-2023 08:28-0400 Systolic blood pressure 135 mm[Hg] Dr. Pritchard Fast Work Phone: [facility] 02-13-2023 06:48-0400 Body height 182.[address] Pritchard Fast Work Phone: [facility] 02-13-2023 06:48-0400 Body mass index (BMI) [Ratio] 23.9 kg/m2 Dr. Pritchard Fast Work Phone: [facility] 02-13-2023 06:48-0400 Body weight [address] Pritchard Fast Work Phone: [facility] 01-14-2023 13:34-0400 Body mass index (BMI) [Ratio] 21.7 kg/m2 Dr. Pritchard Fast Work Phone: [facility] 01-14-2023 13:34-0400 Body weight 72.[address] Pritchard Fast Work Phone: [facility] 01-14-2023 13:34-0400 Diastolic blood pressure 79 mm[Hg] Dr. Pritchard Fast Work Phone: [facility] 01-14-2023 13:34-0400 Heart rate 61 /min Dr. Pritchard Fast Work Phone: [facility] 01-14-2023 13:34-0400 SaO2% (BldA) [Mass fraction] 98 % Dr. Pritchard Fast Work Phone: [facility] 01-14-2023 13:34-0400 Systolic blood pressure 133 mm[Hg] Dr. Pritchard Fast Work Phone: [facility] 12-03-2022 10:08-0400 Body height 184.[address] Pritchard Fast Work Phone: [facility] 12-03-2022 10:08-0400 Body weight 75.[address] Pritchard Fast Work Phone: [facility] 12-03-2022 06:55-0400 Body mass index (BMI) [Ratio] 21.9 kg/m2 Dr. Pritchard Fast Work Phone: [facility] 11-29-2022 12:53-0400 Body mass index (BMI) [Ratio] 22.3 kg/m2 Dr. Pritchard Fast Work Phone: [facility] 11-29-2022 12:53-0400 Body weight 76.[address] Pritchard Fast Work Phone: [facility] 11-29-2022 12:53-0400 Diastolic blood pressure 72 mm[Hg] Dr. Pritchard Fast Work Phone: [facility] 11-29-2022 12:53-0400 Heart rate 55 /min Dr. Pritchard Fast Work Phone: [facility] 11-29-2022 12:53-0400 Respiratory rate 18 /min Dr. Pritchard Fast Work Phone: [facility] 11-29-2022 12:53-0400 SaO2% (BldA) [Mass fraction] 100 % Dr. Pritchard Fast Work Phone: [facility] 11-29-2022 12:53-0400 Systolic blood pressure 133 mm[Hg] Dr. Pritchard Fast Work Phone: [facility] 11-12-2022 10:23-0500 Body height 185.42 cm Naida Montenegro [facility] Work Phone: 11-12-2022 10:23-0500 Body mass index (BMI) [Ratio] 23.09 kg/m2 Naida Montenegro [facility] Work Phone: 11-12-2022 10:23-0500 Body surface area Derived from formula 2.03 m2 Naida Montenegro [facility] Work Phone: 11-12-2022 10:23-0500 Body temperature 98.4 [degF] Naida Montenegro [facility]; [facility] Work Phone: Comment on above: Method: Thermal Scan 11-12-2022 10:23-0500 Body weight 79.38 kg Naida Montenegro [facility] [facility] Work Phone: 11-12-2022 10:23-0500 Diastolic blood pressure 68 mm[Hg] Naida Montenegro [facility] Work Phone: Comment on above: Patient Position: Sitting; Cuff Location : Left Arm; Cuff Size: Standard 11-12-2022 10:23-0500 Heart rate 70 /min Naida Montenegro [facility] Work Phone: Comment on above: Pattern: Regular 11-12-2022 10:23-0500 Respiratory rate 16 /min Naida Montenegro [facility]; [facility] Work Phone: Comment on above: Pattern: Unlabored 11-12-2022 10:23-0500 Systolic blood pressure 120 mm[Hg] Naida Montenegro [facility]; [facility] Work Phone: Comment on above: Patient Position: Sitting; Cuff Location : Left Arm; Cuff Size: Standard 10-16-2022 14:07-0500 Body mass index (BMI) [Ratio] 23.2 kg/m2 Dr. Francheska Alonzo Work Phone: [facility] 10-16-2022 14:07-0500 Body weight 79.[address] Pritchard Fast Work Phone: [facility] 10-16-2022 14:07-0500 Diastolic blood pressure 67 mm[Hg] Dr. Francheska Alonzo Work Phone: [facility] 10-16-2022 14:07-0500 Heart rate 59 /min Dr. Pritchard Fast Work Phone: [facility] 10-16-2022 14:07-0500 Respiratory rate 18 /min Dr. Pritchard Fast Work Phone: [facility] 10-16-2022 14:07-0500 Systolic blood pressure 125 mm[Hg] Dr. Pritchard Fast Work Phone: [facility] 07-30-2022 13:24-0500 Body height 185.42 cm Naida Montenegro [facility] Work Phone: 07-30-2022 13:24-0500 Body mass index (BMI) [Ratio] 22.69 kg/m2 Naida Montenegro [facility]; [facility] Work Phone: 07-30-2022 13:24-0500 Body surface area Derived from formula 2.02 m2 Naida Montenegro [facility]; [facility] Work Phone: 07-30-2022 13:24-0500 Body temperature 97 [degF] Naida Montenegro [employer] [facility]; [facility] Work Phone: Comment on above: Method: Thermal Scan 07-30-2022 13:24-0500 Body weight 78.02 kg Naida Montenegro [facility]; [facility] Work Phone: 07-30-2022 13:24-0500 Diastolic blood pressure 72 mm[Hg] Naida Montenegro [facility]; [facility] Work Phone: Comment on above: Patient Position: Sitting; Cuff Location : Left Arm; Cuff Size: Standard 07-30-2022 13:24-0500 Heart rate 68 /min Naida Montenegro [facility]; [facility] Work Phone: Comment on above: Pattern: Regular 07-30-2022 13:24-0500 Respiratory rate 16 /min Naida Montenegro [facility]; [facility] Work Phone: Comment on above: Pattern: Unlabored 07-30-2022 13:24-0500 Systolic blood pressure 118 mm[Hg] Naida Montenegor [facility]; [facility] Work Phone: Comment on above: Patient Position: Sitting; Cuff Location : Left Arm; Cuff Size: Standard 04-10-2022 09:35-0400 Body height 185.4 cm Mal Joseph MD Work Phone: [facility] 04-10-2022 09:35-0400 Body weight 79.29 kg Mal Jospeh MD Work Phone: [facility] 04-10-2022 09:35-0400 Diastolic blood pressure 84 mm[Hg] Mal Joseph MD Work Phone: [facility] 04-10-2022 09:35-0400 Heart rate 76 /min Mal Joseph MD Work Phone: [facility] 04-10-2022 09:35-0400 SaO2% (BldA) [Mass fraction] 98 % Mal Joseph MD Work Phone: [facility] 04-10-2022 09:35-0400 Systolic blood pressure 136 mm[Hg] Mal Joseph MD Work Phone: [facility] 03-23-2022 10:11-0400 Body height 185.42 cm Naida Montenegro [facility]; [facility] Work Phone: 03-23-2022 10:11-0400 Body mass index (BMI) [Ratio] 22.69 kg/m2 Naida Montenegro [facility]; [facility] Work Phone: 03-23-2022 10:11-0400 Body surface area Derived from formula 2.02 m2 Naida Montenegro [facility]; [facility] Work Phone: 03-23-2022 10:11-0400 Body temperature 97 [degF] Naida Montenegro [facility]; [facility] Work Phone: Comment on above: Method: Thermal Scan 03-23-2022 10:11-0400 Body weight 78.02 kg Naida Montenegro [facility]; [facility] Work Phone: 03-23-2022 10:11-0400 Diastolic blood pressure 62 mm[Hg] Naida Montenegro [facility]; [facility] Work Phone: Comment on above: Patient Position: Sitting; Cuff Location : Left Arm; Cuff Size: Standard 03-23-2022 10:11-0400 Heart rate 62 /min Naida Montenegro [facility]; [facility] Work Phone: Comment on above: Pattern: Regular 03-23-2022 10:11-0400 Respiratory rate 16 /min Naida Montenegro [facility]; [facility] Work Phone: Comment on above: Pattern: Unlabored 03-23-2022 10:11-0400 Systolic blood pressure 104 mm[Hg] Naida Montenegro [facility]; [facility] Work Phone: Comment on above: Patient Position: Sitting; Cuff Location : Left Arm; Cuff Size: Standard 01-24-2022 11:00-0400 Body height 185.42 cm Naida Montenegro [facility]; [facility] Work Phone: 01-24-2022 11:00-0400 Body mass index (BMI) [Ratio] 22.69 kg/m2 Naida Montenegro [facility]; [facility] Work Phone: 01-24-2022 11:00-0400 Body surface area Derived from formula 2.02 m2 Naida Montenegro [facility]; [facility] Work Phone: 01-24-2022 11:00-0400 Body temperature 96.9 [degF] Naida Montenegro [facility]; [facility] Work Phone: Comment on above: Method: Thermal Scan 01-24-2022 11:00-0400 Body weight 78.02 kg Naida Montenegro [facility]; [facility] Work Phone: 01-24-2022 11:00-0400 Diastolic blood pressure 70 mm[Hg] Naida Montenegro [facility]; [facility] Work Phone: Comment on above: Patient Position: Sitting; Cuff Location : Left Arm; Cuff Size: Standard 01-24-2022 11:00-0400 Heart rate 66 /min Naida Montenegro [facility]; [facility] Work Phone: Comment on above: Pattern: Regular 01-24-2022 11:00-0400 Respiratory rate 16 /min Naida Montenegro [facility]; [facility] Work Phone: Comment on above: Pattern: Unlabored 01-24-2022 11:00-0400 Systolic blood pressure 120 mm[Hg] Naida Montenegro [facility]; [facility] Work Phone: Comment on above: Patient Position: Sitting; Cuff Location : Left Arm; Cuff Size: Standard 01-10-2022 11:55-0400 Body temperature 97.3 [degF] Dr. Spike Mullen Work Phone: [facility] Work Phone: 01-10-2022 11:55-0400 Diastolic blood pressure 88 mm[Hg] Dr. Spike Mullen Work Phone: [facility] Work Phone: 01-10-2022 11:55-0400 Heart rate 62 /min Dr. Spike Mullen Work Phone: [facility] Work Phone: 01-10-2022 11:55-0400 Respiratory rate 16 /min Dr. Spike Mullen Work Phone: [facility] Work Phone: 01-10-2022 11:55-0400 SaO2% (BldA) [Mass fraction] 92 % Dr. Spike Mullen Work Phone: [facility] Work Phone: 01-10-2022 11:55-0400 Systolic blood pressure 135 mm[Hg] Dr. Spike Mullen Work Phone: [facility] Work Phone: 01-10-2022 10:18-0400 Body height 185.[address] Spike Mullen Work Phone: [facility] Work Phone: 01-10-2022 10:18-0400 Body mass index (BMI) [Ratio] 21.8 kg/m2 Dr. Spike Mullen Work Phone: [facility] Work Phone: 01-10-2022 10:18-0400 Body weight [address] Spike Mullen Work Phone: [facility] Work Phone: 10-25-2021 11:38-0500 Body height 185.42 cm Naida Montenegro CMA [facility]; [facility] Work Phone: 10-25-2021 11:38-0500 Body mass index (BMI) [Ratio] 21.9 kg/m2 Naida Montenegro [facility]; [facility] Work Phone: 10-25-2021 11:38-0500 Body surface area Derived from formula 1.99 m2 Naida Montenegro [facility]; [facility] Work Phone: 10-25-2021 11:38-0500 Body temperature 97.1 [degF] Naida Montenegro [facility]; [facility] Work Phone: Comment on above: Method: Thermal Scan 10-25-2021 11:38-0500 Body weight 75.3 kg Naida Montenegro [facility]; [facility] Work Phone: 10-25-2021 11:38-0500 Diastolic blood pressure 70 mm[Hg] Naida Montenegro [facility]; [facility] Work Phone: Comment on above: Patient Position: Sitting; Cuff Location : Left Arm; Cuff Size: Standard 10-25-2021 11:38-0500 Heart rate 70 /min Naida Montenegro [facility]; [facility] Work Phone: Comment on above: Pattern: Regular 10-25-2021 11:38-0500 Respiratory rate 16 /min Naida Montenegro [facility]; [facility] Work Phone: Comment on above: Pattern: Unlabored 10-25-2021 11:38-0500 SaO2% (BldA) [Mass fraction] 97 % Naida Montenegro [facility]; [facility] Work Phone: Comment on above: Room air 10-25-2021 11:38-0500 Systolic blood pressure 118 mm[Hg] Naida Montenegro [facility]; [facility] Work Phone: Comment on above: Patient Position: Sitting; Cuff Location : Left Arm; Cuff Size: Standard 10-10-2021 12:15-0500 Diastolic blood pressure 85 mm[Hg] Dr. Spike Mullen Work Phone: [facility] Work Phone: 10-10-2021 12:15-0500 Systolic blood pressure 135 mm[Hg] Dr. Spike Mullen Work Phone: [facility] Work Phone: 10-10-2021 07:51-0500 Body weight 78.[address] Spike Mullen Work Phone: [facility] Work Phone: 10-10-2021 07:51-0500 Heart rate 74 /min Dr. Spike Mullen Work Phone: [facility] Work Phone: 10-10-2021 07:51-0500 Respiratory rate 16 /min Dr. Spike Mullen Work Phone: [facility] Work Phone: 10-10-2021 07:51-0500 SaO2% (BldA) [Mass fraction] 100 % Dr. Spike Mullen Work Phone: [facility] Work Phone: 07-11-2021 09:27-0400 Body height 185.42 [...] 05-16-2021 13:10-0400 Body height 185.42 cm Yoko Mahajan LPN [facility]; [facility] Work Phone: 05-16-2021 13:10-0400 Body mass index (BMI) [Ratio] 22.3 kg/m2 Yoko Slarb PANEL SEWER [facility]; [facility] Work Phone: 05-16-2021 13:10-0400 Body surface area Derived from formula 2 m2 Yoko Shreerb [employer] [facility]; [facility] Work Phone: 05-16-2021 13:10-0400 Body temperature 97.6 [degF] Yoko Shreerb [employer] [facility]; [facility] Work Phone: 05-16-2021 13:10-0400 Body weight 76.66 kg Yoko Swannrb [employer] [facility]; [facility] Work Phone: 05-16-2021 13:10-0400 Diastolic blood pressure 76 mm[Hg] Yoko Slarb [employer] [facility]; [facility] Work Phone: Comment on above: Patient Position: Sitting; Cuff Location : Left Arm; Cuff Size: Standard 05-16-2021 13:10-0400 Heart rate 78 /min Yoko Slarb [employer] [facility]; [facility] Work Phone: Comment on above: Pattern: Regular 05-16-2021 13:10-0400 Respiratory rate 16 /min Yoko Slarb [employer] [facility]; [facility] Work Phone: Comment on above: Pattern: Unlabored 05-16-2021 13:10-0400 SaO2% (BldA) [Mass fraction] 99 % Yoko Slarb [employer] [facility]; [facility] Work Phone: Comment on above: Room air 05-16-2021 13:10-0400 Systolic blood pressure 138 mm[Hg] Yoko Slarb [employer] [facility]; [facility] Work Phone: Comment on above: Patient Position: Sitting; Cuff Location : Left Arm; Cuff Size: Standard 10-06-2020 11:19-0500 Body mass index (BMI) [Ratio] 21.7 kg/m2 Dr. Spike Mullen Work Phone: [facility] Work Phone: 04-15-2017 15:15-0400 BMI (Body Mass Index) 20.67 kg/m2 Mal Joseph MD [facility] Work Phone: 04-15-2017 15:15-0400 Body Temperature 97.4 [degF] Mal Joseph MD [facility] Work Phone: 04-15-2017 15:15-0400 Body Temperature 97.39 [degF] Mal Joseph MD [facility] Work Phone: 04-15-2017 15:15-0400 BP Diastolic 92 mm[Hg] Mal Joseph MD [facility] Work Phone: 04-15-2017 15:15-0400 BP Systolic 155 mm[Hg] Mal Joseph MD [facility] Work Phone: 04-15-2017 15:15-0400 Height 191.77 cm Mal Joseph MD [facility] Work Phone: 04-15-2017 15:15-0400 Pulse (Heart Rate) 62 /min Mal Joseph MD [facility] Work Phone: 04-15-2017 15:15-0400 Respiratory Rate 20 /min Mal Joseph MD [facility] Work Phone: 04-15-2017 15:15-0400 Weight 76.02 kg Mal Joseph MD [facility] Work Phone: 09-25-2016 09:58-0500 BSA (Body Surface Area) 2.08 m2 Mal Joseph MD [facility] Work Phone: 08-28-2011 08:54-0500 Height 191.77 cm Mal Joseph MD [facility] Work Phone: Encounters Encounter Date Encounter Type Care Provider Facility Start: 03-08-2025 ambulatory Francheska Fast Facility:[facility] Start: 03-02-2025 ambulatory Francheska Fast Facility:[facility] Start: 03-02-2025 Non-patient / Non-visit David Parra DO -[facility] Start: 03-02-2025 End: 03-02-2025 Admission to same day surgery center David Parra DO -Endoscopy Work Phone: Start: 03-02-2025 End: 03-02-[address] Francheska Alonzo DO Work Phone: [facility] Work Phone: Start: 01-26-2025 End: 01-26-[address] Petros Valdez MD -[facility] Work Phone: Start: 01-26-2025 End: 01-26-[address] Francheska Alonzo DO Work Phone: [facility] Work Phone: Start: 12-23-2024 End: 12-23-[address] Francheska Alonzo DO Work Phone: [facility] Work Phone: Start: 12-23-2024 End: 12-23-[address] Francheska Alonzo DO -Laboratory Work Phone: Start: 12-23-2024 End: 12-23-2024 ambulatory Francheska Fast Facility:[facility] Start: 12-17-2024 End: 12-17-2024 Patient encounter procedure David Parra DO -[facility] Work Phone: Start: 12-17-2024 End: 12-17-2024 ambulatory Francheska Fast Facility:[facility] Start: 10-01-2024 End: 10-01-2024 Patient encounter procedure David Parra DO -[facility] Work Phone: Start: 10-01-2024 End: 10-01-2024 ambulatory Francheska Fast Facility:[facility] Start: 07-02-2024 End: 07-02-2024 ambulatory Francheska Fast Facility:[facility] Start: 06-22-2024 End: 06-22-2024 ambulatory Francheska Fast Facility:[facility] Start: 05-10-2024 End: 05-10-2024 Emergency department patient visit Francheska Fast Facility:[facility] Start: 04-02-2024 End: 04-02-2024 ambulatory Francheska Fast Facility:[facility] Start: 03-20-2024 End: 03-20-2024 ambulatory David Parra Facility:[facility] Start: 03-06-2024 End: 03-06-2024 ambulatory Francheska Fast Facility:[facility] Start: 12-25-2023 End: 12-25-[address] Francheska Alonzo Work Phone: [facility] Work Phone: Start: 12-25-2023 End: 12-25-[address] Francheska Alonzo Work Phone: [facility]-Laboratory Work Phone: Start: 12-03-2023 End: 12-03-[address] Francheska Alonzo Work Phone: [facility] Work Phone: Start: 08-06-2023 End: 08-06-[address] Francheska Alonzo Work Phone: [facility] Work Phone: Start: 08-06-2023 End: 08-06-[address] Francheska Alonzo Work Phone: [facility]-Laboratory, Specimen Work Phone: Start: 08-05-2023 End: 08-05-[address] Francheska Alonzo Work Phone: [facility] Work Phone: Start: 07-26-2023 End: 07-26-[address] Francheska Alonzo Work Phone: [facility]-Outpatient Breast Imaging Work Phone: Start: 06-14-2023 Non-patient / Non-visit Dr. Francheska Alonzo Work Phone: [facility] Start: 06-14-2023 End: 06-14-[address] [facility] Start: 06-14-2023 End: 06-14-2023 Phone Encounter Francheska Alonzo DO Work Phone: [facility] Start: 06-07-2023 End: 06-07-2023 Annotation/Addendum Francheska Alonzo DO Work Phone: [facility] Start: 06-03-2023 End: 06-03-2023 Office outpatient visit 25 minutes Francheska Alonzo DO Work Phone: [facility] Start: 05-29-2023 End: 05-29-[address] Francheska Alonzo Work Phone: [facility] Work Phone: Start: 05-29-2023 End: 05-29-[address] Frnacheska Alonzo Work Phone: [facility]-Laboratory Work Phone: Start: 02-25-2023 End: 02-25-[address] Francheska Alonzo Work Phone: [facility] Start: 02-25-2023 End: 02-25-2023 Office outpatient visit 25 minutes Francheska Alonzo DO Work Phone: [facility] Start: 02-22-2023 End: 02-22-[address] Francheska Alonzo Work Phone: [facility] Work Phone: Start: 02-22-2023 End: 02-22-[address] Francheska Alonzo Work Phone: [facility]-Laboratory Start: 02-13-2023 Non-patient / Non-visit Dr. Francheska Alonzo Work Phone: [facility] Start: 02-13-2023 End: 02-13-2023 Admission to same day surgery center Dr. Francheska Alonzo Work Phone: [facility]-Endoscopy Start: 02-13-2023 End: 02-13-[address] Francheska Alonzo Work Phone: [facility] Work Phone: Start: 01-14-2023 End: 01-14-[address] Francheska Alonzo Work Phone: [facility] Start: 12-03-2022 Non-patient / Non-visit Dr. Francheska Fast Work Phone: [facility] Start: 12-03-2022 End: 12-03-2022 Admission to same day surgery center Dr. Francheska Alonzo Work Phone: [facility]-[employer]/Special Procedures Start: 12-03-2022 End: 12-03-[address] Francheska Alonzo Work Phone: [facility] Work Phone: Start: 11-30-2022 Non-patient / Non-visit Dr. Francheska Alonzo Work Phone: [facility] Start: 11-29-2022 Non-patient / Non-visit Dr. Francheska Alonzo Work Phone: [facility] Start: 11-29-2022 End: 11-29-[address] Francheska Alonzo Work Phone: [facility] Work Phone: Start: 11-29-2022 End: 11-29-[address] Francheska Alonzo Work Phone: [facility] Start: 11-12-2022 ambulatory Francheska Alonzo DO [facility] Start: 11-12-2022 End: 11-12-2022 Office outpatient visit 25 minutes Francheska Alonzo DO Work Phone: [facility] Start: 10-29-2022 Non-patient / Non-visit Dr. Francheska Alonzo Work Phone: [facility] Start: 10-29-[address] Francheska Alonzo Work Phone: [facility]-Cardiovascular Services Start: 10-29-2022 End: 10-29-[address] Francheska Alonzo Work Phone: [facility]-Laboratory Start: 10-16-2022 End: 10-16-[address] Francheska Alonzo Work Phone: [facility] Start: 09-14-2022 End: 09-14-[address] Francheska Alonzo Work Phone: [facility] [facility], [facility] Start: 08-10-2022 End: 08-10-2022 Phone Encounter Francheska Alonzo DO Work Phone: [facility] Start: 07-30-2022 End: 08-05-2022 Patient encounter procedure Francheska Fast DO Work Phone: [facility] Start: 07-30-2022 Review Francheska Fast DO Work Phone: [facility] Start: 06-11-2022 End: 06-11-2022 Historical Summary Francheska Alonzo DO Work Phone: [facility] Start: 05-25-2022 End: 05-27-2022 Office outpatient visit 15 minutes Francheska Alonzo DO Work Phone: [facility] Start: 05-09-2022 End: 05-09-[address] Francheska Alonzo Work Phone: [facility] Work Phone: Start: 05-09-2022 End: 05-09-[address] Francheska Alonzo Work Phone: [facility]-Laboratory Start: 05-08-2022 End: 05-08-2022 Phone Encounter Francheska [...] encounter procedure Dr. Francheska Alonzo Work Phone: [facility]-Outpatient Breast Imaging Start: 03-23-2022 End: 03-25-2022 Office outpatient visit 15 minutes Francheska Fast DO Work Phone: [facility] Start: 01-24-2022 End: 01-24-[address] Francheska Alonzo Work Phone: [facility] Start: 01-24-2022 End: 01-28-2022 Office outpatient visit 25 minutes Francheska Fast DO Work Phone: [facility] Start: 01-24-2022 Review Francheska Fast DO Work Phone: [facility] Start: 01-19-2022 End: 01-19-[address] Francheska Alonzo Work Phone: [facility]-Laboratory Start: 01-15-2022 End: 01-15-2022 Phone Encounter Francheska Fast DO Work Phone: [facility] Start: 01-10-2022 Non-patient / Non-visit Dr. Spike Mullen Work Phone: [facility] Start: 01-10-2022 End: 01-10-2022 Admission to same day surgery center Dr. Spike Mullen Work Phone: [facility] Start: 11-07-2021 End: 11-07-[address] Spike Mullen Work Phone: [facility] Start: 10-25-2021 End: 10-26-2021 Office outpatient visit 25 minutes Francheska Fast DO Work Phone: [facility] Start: 10-25-2021 Review Francheska Fast DO Work Phone: [facility] Start: 10-10-2021 End: 10-10-[address] Spike Mullen Work Phone: [facility] Start: 10-05-2021 End: 10-05-[address] Spike Mullen Work Phone: [facility] Start: 07-12-2021 End: 07-12-2021 Phone Encounter Francheska Clinton DO Work Phone: [facility] Start: 07-11-2021 End: 07-11-2021 Office outpatient visit 25 minutes Francheska Alonzo DO Work Phone: [facility] Start: 06-05-2021 End: 06-06-2021 Phone Encounter Francheska Fast DO Work Phone: [facility] Start: 05-16-2021 End: 05-16-2021 Office outpatient visit 25 minutes Francheska Fast DO Work Phone: [facility] Start: 04-09-2017 End: 04-10-2017 Ambulatory ADRIANNA MCDUFFIE Facility:[facility] Procedures Date Procedure Procedure Detail Performing Clinician Start: 03-02-[address] Francheska soto DO Work Phone: Start: 12-23-2024 Vitamin D, 25-hydroxy measurement Dr. [...] Extrem Procedure Note: See Note ; NOTES: [facility] Cardiovascular Services [address] [place] [address] Venous Duplex US - [place] Extrem 06/14/23 0905 MR#: [id number] Acct: [id number] Name: JUNG ABURTO Rep #: [id number] : 1945 78 From: Michele Hodgson MD Attending Dr: Dr. Francheska Alonzo, Status: REG CL I Ordering Dr: Francheska Alonzo DO Date: 06/14/23 Location: [facility] Sex: M C Admitted: Reason For Study: [...] Date Michele Hodgson MD CC: Dr. Francheska Alonzo, DO Date Dictated: 06/14/23904 Date Transcribed: 06/14/23 1225 Form Maker Plaster: Signed Francheska Alonzo DO Work Phone: Start: 02-25-2023 End: 02-25-2023 Gastroenterology Visit Report Procedure Note: See Note ; NOTES: [facility] [address] [place] [address] OFFICE VISIT Date of Service: 02/25/23 MR#: [id number] Acct: [id number] Name: JUNG ABURTO Rep #: [id number] : 1945 Provider: RAJESH Garrido Age/Sex: 77/M [place] [facility] Status: Signed Intake Vital Signs 01/14/23 13:34 [...] acid 325 mg-1,916 mg-1,000 mg efferves tab (Mary[place]ane-[place] Original) 1 tab PO PRN PRN BLOATING 11/30/22 [History Confirmed 02/25/23] PFSH Medical History (Reviewed 02/25/23 @ 12:53 by Alicia Garrido NEWSPAPER MANAGING EDITOR, NEWSPAPER MANAGING EDITOR-C) Alcohol use Arthritis Back pain Yates esophagus Cardiology follow-up encounter Chronic renal insufficiency [...] f/u EGD that was indicated for hx Yates's esophagus. His 2021 EGD was positive for Yates's. The 2022 EGD is also positive for Yates's; negative for dysplasia; he has a hiatal [...] mucosal changes secondary to ? established short-segment Yates's disease. ? Biopsied. ? - Hiatal hernia. ? - No gross lesions in the second portion of the ? duodenum. MICROSCOPIC DIAGNOSIS Distal esophagus, biopsy: Fragments of gastroesophageal mucosa with focal intestinal metaplasia (goblet cell metaplasia), consistent with Yates's esophagus. Chronic inflammation. 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 Francheska Alonzo DO Status:[facility] Patient Name: Jung Aburto Procedure Date: 02/13/2023 7:50 AM Date of : 1945 Age: 77 Procedure: Upper GI endoscopy Indications: Follow-up of Ytaes's esophagus Providers: David Parra DO Referring MD: [...] esophageal mucosal changes secondary to established short-segment Yates's disease present in the lower third of [...] 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 Biopsied. - Hiatal hernia. - No gross lesions in the second portion of the duodenum. Recommendation: - Discharge patient to home. - Resume previous diet. - Continue present medications. - Await pathology results. - Repeat upper endoscopy for surveillance based on pathology results. Procedure Code(s): --- Professional --- 80574, Esophagogastroduodenoscopy, flexible, transoral; with biopsy, single or multiple CPT copyright 2017 [employer]. All rights reserved. The codes documented in this report are preliminary and upon incinerator attendant review may be revised to meet current compliance requirements. David Parra DO 02/13/2023 8:10:49 AM This report has been signed electronically. Number of Addenda: 0 Note Initiated On: 02/13/2023 7:50 AM 02/13/23809 Date David Parra DO Cosigner Signature: Date (if indicated) CC: Dr. Francheska Alonzo DO; David Parra DO Date Dictated: 02/13/23 0750 Date Transcribed: Form Maker Plaster: RF Signed Francheska Alonzo DO Work Phone: Start: 02-13-2023 End: 02-13-2023 History and Physical Exam Procedure Note: See Note; NOTES: [facility] Medical Records Department [address] [place] [address] History Physical Exam 02/13/23752 MR#: [id number] Acct: [id number] Name: JUNG ABURTO Rep #: [id number] : 1945 77 From: David Parra DO PCP: Dr. Francheska Alonzo DO Status:[facility] Location: [place] [address] History and Physical Date of Admission: 02/13/23 77 M who presents to the office today for f/u Yates's, GERD, bloating. Last year he reported bloating had resolved with addition of probiotic. No longer taking probiotic. Gets bloating one hour after eating, better if he avoids high FODMAP foods. Takes Dexilant qam and famotidine 40 mg qpm, acid reflux is pretty well controlled (except if he consumes chocolate or red wine). Jung established with this clinic 3 for screening colonoscopy evaluation. His age puts him past open access scheduling. His father had colon cancer in his early 60???s. Hx of iron deficiency. EGD and colonoscopy performed 01.10.22. EGD found LA Grade B esophagitis, Yates???s esophagus Ki-67 positive; medium sized hiatal hernia; [...] and oriented x3 Quality Reporting Tobacco Screening ([facility] 138) Smoking Status: Never smoker Assessment and Plan Assessment and Plan (1) Yates esophagus: ?Status:???Chronic ?Plan: Schedule EGD to reeval Yates's Continue dexilant and famotidine I have examined [...] Report Procedure Note: See Note ; NOTES: [facility] [address] [place] [address] OFFICE VISIT Date of Service: 01/14/23 MR#: [id number] Acct: [id number] Name: LAMONTEJUNG ROGERS Rep #: [id number] : 1945 Provider: RAJESH Garrido Age/Sex: 77/M [place] [facility] Status: Signed Intake Vital Signs 01/10/22 10:18 [...] 400 mg tablet 800 mg PO DAILY 02/01/22 [History Confirmed 01/14/23] dexlansoprazole 60 mg capsule,biphase [...] acid 325 mg-1,916 mg-1,000 mg efferves tab (Maryjane-[place] Original) 1 tab PO DAILY 11/30/22 [History Confirmed 01/14/23] aspirin 81 mg capsule 81 mg PO DAILY 12/03/22 [History Confirmed 01/14/23] PFSH Medical History (Updated 01/14/23 @ 13:48 by Alicia Garrido NP, NEWSPAPER MANAGING EDITOR-C) Alcohol use Arthritis Back pain Yates esophagus Cardiology follow-up encounter Chronic renal insufficiency [...] HPI Chief Complaint: Follow up Details: JUNG ABUROT, is a 77 M who presents to the office today for f/u Yates's, GERD, bloating. Last year he reported bloating had resolved with addition of probiotic. No longer taking probiotic. Gets bloating one hour after eating, better if he avoids high FODMAP foods. Takes Dexilant qam and famotidine 40 mg qpm, acid reflux is pretty well controlled (except if he consumes chocolate or red wine). Jung established with this clinic .09.30 for screening colonoscopy evaluation. His age puts him past open access scheduling. His father had colon cancer in his early 60???s. Hx of iron deficiency. EGD and colonoscopy performed 01.10.22. 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 Francheska Alonzo DO Status:[facility] Location: [facility] Report of Operation Date of Procedure: [...] DO; Dr. Sd Kirk MD Signed Francheska Fast DO Work Phone: Start: 12-03-2022 End: 12-03-2022 Cardiac Cath Diagnostic Procedure Note: See Note; NOTES: [facility] Imaging Services [address] [place] [address] Cardiac Cath Diagnostic MR#: [id number] Acct: [id number] Name: JUNG ABURTOOLPH Rep #: [id number] : 1945 77 From: Petros Valdez MD PCP: Dr. Francheska Alonzo, DO Status:REG SDC Patient Name: JUNG ABURTO Study Date: 12/03/2022 Performing: Petros Valdez MD Ht: 73 inches 185.42 cm : 1945 Wt: 166.01 lbs 75.3 kg Age: 77 Gender: male BSA: 1.99 PROCEDURE(S) PERFORMED DC01-(07689)LHC/COR/LV IC10-(27383)FFR, CORONARY OR GRAFT, INITIAL VESSEL IC11-(17641)FFR, CORONARY OR GRAFT, EACH ADD'L VESSEL CLINICAL [...] multiple views using a 5 Fr. 4.0 [place] catheter. Left Coronary Artery selective angiography was performed in multiple views using a 5 Fr. 4.0 [place] catheter. Left Ventriculography was performed in [facility] [...] Dictated: 12/03/22 1117 Date Transcribed: 12/03/22 1215 Form Maker Plaster: CO Signed Francheska Alonzo DO Work Phone: Start: 11-30-2022 End: 11-30-2022 History and Physical Exam Procedure Note: See Note; NOTES: [facility] Medical Records Department [address] [place] [address] History Physical Exam 11/30/22 1600 MR#: [id number] Acct: [id number] Name: JUNG ABURTO Rep #: [id number] : 1945 77 From: Tea ARIZMENDI PCP: Dr. Francheska Alonzo, DO Status:PRE [facility] Location: [facility] History and Physical JUNG ABURTO, is [...] with you soon.??? His statin was increased. [facility] Medical History??? Alcohol use Arthritis Back pain Yates esophagus Cardiology follow-up encounter Chronic renal insufficiency [...] Angiography CT Procedure Note: See Note; NOTES: [facility] Imaging Services [address] [place] [address] 11/29/22 1532 MR#: [id number] Acct: [id number] Name: JUNG ABURTO Rep #: [id number] : 1945 77 From: Petros Valdez MD [...] Only Procedure Note: See Note ; NOTES: [facility] Imaging Services [address] [place] [address] Cardiac Only MR#: [id number] Acct: [id number] Name: JUNG ABURTO Rep #: [id number] : 1945 [facility] From: Hany Yarbrough MD PCP: Dr. Francheska Alonzo DO Status: REG CLI Study: Limited Chest CT Cardiac Only Date of Exam: Exam# [id number] Ordering Dr: Petros Valdez MD STUDY: CARDIAC [...] LAKISHA at 16:36 EDT , CC: Dr. Pertos Valdez MD; Dr. Francheska Alonzo DO Form Maker Plaster: Signed Francheska Alonzo DO Work Phone: Start: 10-16-2022 End: 10-16-2022 Cardiology Visit Report Procedure Note: See Note; NOTES: [facility] [address] [place] [address] OFFICE VISIT Date of Service: 10/16/22 MR#: [id number] Acct: [id number] Name: JUNG ABURTO Rep #: [id number] : 1945 Provider: Dr. Petros Valdez MD Age/Sex: 77/M Location[place] [facility] Status: Signed [facility] History of Present Illness Details: JUNG ABURTO, [...] Monitor Intake Visit Reasons: 1 Y FU Dry Cell Tester Required: No Accompanied by: None Is patient [...] Medical History Alcohol use Arthritis Back pain Yates esophagus Cardiology follow-up encounter Chronic renal insufficiency [...] unspecified Plan Details Follow Up: 1 Year (poultry vaccinator) Coding Level of Care Code Off vis,est,level 3 Diagnoses Essential (primary) hypertension I10 Hyperlipidemia E78.00; E78.0 Hyperlipidemia type: pure hypercholesterolemia Coding Level of Care Code Off vis,est,level 3 Diagnoses Essential (primary) hypertension I10 Hyperlipidemia E78.00; E78.0 Hyperlipidemia type: pure hypercholesterolemia 10/16/22 1445 <Electronically signed by Petros Valdez MD> Date Petros Valdez MD Cosigner Signature: Date (if applicable) CC: DO Francheska Minaya DO Work Phone: Start: 09-14-2022 End: 09-14-2022 Kidney and Bladder Procedure Note: See Note; NOTES: [facility] Imaging Services [address] [place] [address] Kidney and Bladder MR#: [id number] Acct: [id number] Name: JUNG ABURTO Rep #: [id number] : 1945 M 77 From: Mo bertrand MD PCP: Dr. Francheska Alonzo DO Status: [facility] Study: Kidney and Bladder Date of Exam: 09/14/22 Exam# [id number] Ordering Dr: Francheska Alonzo DO STUDY: RENAL [...] Signed: Mo Angulo MD at 14:20 EST Reading Location ID and State: [address] [place] [address] , Service support , CC: Dr. Francheska Alonzo DO Form Maker Plaster: Signed Francheska Alonzo DO Work Phone: Start: 09-14-[address] Francheska Alonzo Work Phone: Start: 04-17-2022 US BREAST BIOPSY RIGHT (POC) SURG USE ONLY Mal Joseph MD Work Phone: Start: 04-05-2022 End: 04-05-2022 Breast Limited Unilateral Comments: See Note; NOTES: [facility] Imaging Services [address] [place] [address] Breast Limited Unilateral MR#: [id number] Acct: [id number] Name: JUNG ABURTO Rep #: [id number] : 1945 M 76 From: Mo bertrand MD PCP: Dr. Francheska Alonzo DO Status: REG CLI Study: Breast Limited Unilateral Date of Exam: Exam# [id number] Ordering Dr: Francheska Alonzo DO STUDY: ULTRASOUND [...] EDT , CC: Dr. Francheska Alonzo DO Form Maker Plaster: Signed Francheska Alonzo DO Work Phone: Start: 04-05-[address] Francheska Alonzo Work Phone: Start: 04-05-[address] Francheska Alonzo Work Phone: Start: 04-05-2022 End: 04-05-2022 DIAG MAMM W/CAD, BILAT Comments: See Note; NOTES: [facility] Imaging Services [address] [place] [address] DIAG MAMM W/CAD, BILAT MR#: [id number] Acct: [id number] Name: JUNG ABURTO Rep #: [id number] : 1945 M 76 From: Mo bertrand MD PCP: Dr. Francheska Alonzo DO Status: REG CLI Study: DIAG MAMM W/CAD, BILAT Date of Exam: 04/05/22 Exam# [id number] Ordering Dr: Francheska Alonzo DO MAMMOGRAPHY - [...] MD at 10:12 EDT , CC: Dr. Franchesak Alonzo DO Form Maker Plaster: Signed Francheska Alonzo DO Work Phone: Start: 01-24-2022 End: 2022 Gastroenterology Visit Report Procedure Note: See Note ; NOTES: [facility] [address] [place] [address] OFFICE VISIT Date of Service: 01/24/22 MR#: [id number] Acct: [id number] Name: JUNG ABURTO Rep #: [id number] : 1945 Provider: David Parra DO Age/Sex: 76/M Location: [facility] [place] [facility] Status: Signed Intake Vital Signs 10/10/21 08:51 01/10/22 10:18 Height 6 ft 1 in 6 ft 1 in Intake Visit Reasons: 2 WK FU Chief Complaint: Follow up Allergies No Known Allergies Allergy (Verified 01/10/22 10:17) [facility] Medical History (Updated 01/24/22 @ 15:01 by [...] HPI HPI Chief Complaint: Follow up Details: JUGN ABURTO, is a 76 M who presents [...] 01.10.22. EGD found LA Grade B esophagitis, Yates???s esophagus Ki-67 positive; medium sized hiatal hernia; [...] Appearance: average body habitus and well nourished [facility] Head: normal to inspection Ears: hearing grossly [...] Affect: normal affect Quality Reporting Tobacco Screening ([facility] 138) Smoking Status: Never smoker Assessment [...] polyp: Status: Acute Plan - Dr. David Parra, DO: He should have colonoscopy for evaluation of his colon. Especially in the setting of iron deficiency anemia. 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 Francheska Alonzo DO Status:REG [facility] Patient Name: Jung Aburto Procedure Date: 01/10/2022 [...] heartburn. He is status post EGD for Yates's biopsy. He is status post colonoscopy for [...] 1 week. Procedure Code(s): --- Professional --- 94370, Colonoscopy, flexible; with removal of tumor(s), polyp(s), or other lesion(s) by snare technique CPT copyright 2017 [employer]. All rights reserved. The codes documented in this report are preliminary and upon incinerator attendant review may be revised to meet current compliance requirements. David Parra DO 01/10/2022 11:46:14 AM This report has been signed electronically. Number of Addenda: 0 Note Initiated On: 01/10/2022 11:06 AM 01/10/22 1146 Date David Parra DO Cosigner Signature: Date (if indicated) CC: Dr. Francheska Alonzo DO; David Parra DO Date Dictated: 01/10/22 1106 Date Transcribed: Form Maker Plaster: PRAVIN Signed Francheska Alonzo DO Work Phone: Start: 01-10-2022 End: 06-08-2022 EGD Report Comments: See Note; NOTES: [facility] Medical Records Department [address] [place] [address] EGD Report MR#: [id number] Acct: [id number] Name: JUNG ABURTO Rep #: [id number] : 1945 76 From: David Parra DO PCP: Dr. Francheska Alonzo DO Status:REG [facility] Patient Name: Jung Aburto Procedure Date: 01/10/2022 10:40 AM Date of : 1945 Age: 76 Procedure: Upper GI endoscopy Indications: Heartburn Providers: David Parra DO Medicines: Monitored Anesthesia Care Patient Profile: This is a 76 year old male. Refer to note in patient chart for documentation of history and physical. Patient has symptoms of chronic heartburn. He is status post EGD for Yates's biopsy. Complications: No immediate complications. Procedure: Pre-Anesthesia [...] pathology results. Procedure Code(s): --- Professional --- 19287, Esophagogastroduodenoscopy, flexible, transoral; with biopsy, single or multiple G0500, Moderate sedation services provided by the same physician or other qualified health aged or disabled care worker performing a gastrointestinal endoscopic service that sedation supports, requiring the presence of an independent trained observer to assist in the monitoring of the patient's level of consciousness and physiological status; initial 15 minutes of intra-service time; patient age 5 years or older (additional time may be reported with 69931, as appropriate) CPT copyright 2017 [employer]. All rights reserved. The codes documented in this report are preliminary and upon incinerator attendant review may be revised to meet current compliance requirements. David Parra DO 01/10/2022 11:40:16 AM This report has been signed electronically. Number of Addenda: 0 Note Initiated On: 01/10/2022 10:40 AM 01/10/22 1140 Date David Parra DO Cosigner Signature: Date (if indicated) CC: Dr. Francheska Alonzo DO; David Parra DO Date Dictated: 01/10/22 1040 Date Transcribed: Form Maker Plaster: PRAVIN Signed Francheska Alonzo DO Work Phone: Start: 01-10-[address] Spike Mullen Work Phone: Start: 01-10-2022 End: 01-10-2022 History and Physical Exam Comments: See Note; NOTES: [facility] Medical Records Department [address] [place] [address] History Physical Exam 01/10/22 1041 MR#: [id number] Acct: [id number] Name: JUNG ABURTO Rep #: [id number] : 1945 76 From: David Friend DO PCP: Dr. Francheska Alonzo, DO Status:REG [facility] Location: [place] [address] History and Physical Date of Admission: 01/10/22 [...] with his last colonoscopy. No hx of Yates's esophagus. Bowels are normal. He was having [...] and well groomed Quality Reporting Tobacco Screening ([facility] 138) Smoking Status: Never smoker Assessment and [...] Gastroenterology Visit Report Comments: See Note; NOTES: [facility] [address] [place] [address] OFFICE VISIT Date of Service: 11/07/21 MR#: [id number] Acct: [id number] Name: LAMONTEJUNGALEJANDRA ROGERS Rep #: [id number] : 1945 Provider: RAJESH Garrido Age/Sex: 76/M [place] [facility] Status: Signed Intake Intake Visit Reasons: COLON POLYPS Allergies No Known Allergies Allergy (Verified 11/07/21 11:25) Medications coenzyme Q10 30 mg PO DAILY 05/21/16 [History Confirmed 11/07/21] multivitamin 1 ea PO DAILY 05/21/16 [History Confirmed 11/07/21] cyanocobalamin (vitamin B-12) 2,000 mcg PO DAILY 04/22/17 [History Confirmed 11/07/21] omega 9-saz-vkw-fish oil 1 tab PO DAILY 04/22/17 [History [...] mg PO DAILY 10/10/21 [History Confirmed 11/07/21] [facility] Medical History (Updated 11/07/21 @ 11:38 by Alicia Garrido NEWSPAPER MANAGING EDITOR, NEWSPAPER MANAGING EDITOR-C) Chronic renal insufficiency Essential (primary) hypertension Hyperlipidemia [...] with his last colonoscopy. No hx of Yates's esophagus. Bowels are normal. He was having [...] and well groomed Quality Reporting Tobacco Screening ([facility] 138) Smoking Status: Never smoker Assessment [...] 1215 <Electronically signed by Alicia Garrido NP NEWSPAPER MANAGING EDITOR-C> Date Alicia Garrido NP NEWSPAPER MANAGING EDITOR-C Cosigner Signature: Date (if applicable) CC: Dr. Francheska Alonzo, DO Francheska Alonzo DO Work Phone: Start: 10-10-2021 End: 10-10-2021 Cardiology Visit Report Comments: See Note; NOTES: [facility] [address] [place] [address] OFFICE VISIT Date of Service: 10/10/21 MR#: [id number] Acct: [id number] Name: JUNG ABURTO Rep #: [id number] : 1945 Provider: Dr. Petros Valdez MD Age/Sex: 76/M Location[place] [facility] Status: Signed HPI HPI History of Present [...] Known Allergies Allergy (Verified 10/10/21 08:52) Medications vnpjwxmyqw-kzkajco-uwfoyksx 1 tab PO DAILY PRN PRN 05/21/16 [History Confirmed 10/10/21] coenzyme Q10 30 mg PO DAILY 05/21/16 [History Confirmed 10/10/21] diazepam 0.5 - 1 tab PO DAILY PRN PRN 05/21/16 [History Confirmed 10/10/21] multivitamin 1 ea PO DAILY 05/21/16 [History Confirmed 10/10/21] cyanocobalamin (vitamin B-12) 2,000 mcg PO DAILY 04/22/17 [History Confirmed 10/10/21] omega 2-chw-bsr-fish oil 1 tab PO DAILY 04/22/17 [History [...] updated, as necessary. Follow Up: 1 Year (poultry vaccinator) Coding Level of Care Code Off vis,est,level 3 Diagnoses Essential (primary) hypertension I10 Hyperlipidemia E78.00; E78.0 Hyperlipidemia type: pure hypercholesterolemia Coding Level of Care Code Off vis,est,level 3 Diagnoses Essential (primary) hypertension I10 Hyperlipidemia E78.00; E78.0 Hyperlipidemia type: pure hypercholesterolemia 10/10/21 1334 <Electronically signed by Petros Valdez MD> Date Petros Valdez MD Cosigner Signature: Date (if applicable) CC: MD Francheska Cody DO Work Phone: Start: 09-25-2016 End: 09-25-2016 REESE Valdez MD Start: 09-25-2016 End: 09-25-2016 Electrocardiogram, complete Petros Powers i, MD Start: 09-25-2016 End: 09-25-2016 Follow Up Appt 1 year Petros Valdez MD Start: 09-23-2015 End: 09-23-2015 REESE Valdez MD Start: 09-23-2015 End: 09-23-2015 Follow Up Appt 1 year Petros Valdez MD Start: 09-19-2015 End: 09-19-2015 *Hepatic Function Panel Petros Valdez MD Start: 09-19-2015 End: 09-19-2015 Lipid panel [AGGREGATE] Petros Valdez MD Start: 08-17-2014 End: 08-17-2014 MEDIA RELATIONS INTERN Petros Valdez MD Start: 08-17-2014 End: 08-17-2014 Follow Up Appt 1 year Petros Valdez MD Start: 08-18-2013 End: 07-06-2015 *Hepatic Function Panel Petros Valdez MD Start: 08-18-2013 End: 08-18-2013 MEDIA RELATIONS INTERN Petros Valdez MD Start: 08-18-2013 End: 08-18-2013 [...] panel [AGGREGATE] Petros Valdez MD Appendectomy Yoko Slarb PANEL SEWER Appendectomy Naida Manchak PHOTOGRAPHIC EQUIPMENT MECHANIC Appendectomy Naida Manchak PHOTOGRAPHIC EQUIPMENT MECHANIC Appendectomy Kayela [place] PHOTOGRAPHIC EQUIPMENT MECHANIC Appendectomy Francheska A Fast DO Work Phone: Appendectomy Naida Manchak PHOTOGRAPHIC EQUIPMENT MECHANIC Appendectomy Naida Manchak PHOTOGRAPHIC EQUIPMENT MECHANIC Appendectomy Naida Manchak PHOTOGRAPHIC EQUIPMENT MECHANIC Appendectomy Naida Manchak PHOTOGRAPHIC EQUIPMENT MECHANIC Double hernia Yoko Slarb PANEL SEWER Double hernia Naida Manchak PHOTOGRAPHIC EQUIPMENT MECHANIC Double hernia Naida Manchak PHOTOGRAPHIC EQUIPMENT MECHANIC Double hernia Kayela [place] PHOTOGRAPHIC EQUIPMENT MECHANIC Double hernia Francheska A Fast DO Work Phone: Double hernia Naida Manchak PHOTOGRAPHIC EQUIPMENT MECHANIC Double hernia Naida Manchak PHOTOGRAPHIC EQUIPMENT MECHANIC Double hernia Naida Manchak PHOTOGRAPHIC EQUIPMENT MECHANIC Double hernia Naida Manchak PHOTOGRAPHIC EQUIPMENT MECHANIC Hydrocele Yoko Slarb PANEL SEWER Hydrocele Naida Manchak PHOTOGRAPHIC EQUIPMENT MECHANIC Hydrocele Naida Manchak PHOTOGRAPHIC EQUIPMENT MECHANIC Hydrocele Kayela [place] PHOTOGRAPHIC EQUIPMENT MECHANIC Hydrocele Francheska A Fast DO Work Phone: Hydrocele Naida Manchak PHOTOGRAPHIC EQUIPMENT MECHANIC Hydrocele Naida Manchak PHOTOGRAPHIC EQUIPMENT MECHANIC Hydrocele Naida Manchak PHOTOGRAPHIC EQUIPMENT MECHANIC Hydrocele Naida Manchak PHOTOGRAPHIC EQUIPMENT MECHANIC Partial thyroidectomy Yoko Slarb PANEL SEWER Partial thyroidectomy Chelse a Manchak PHOTOGRAPHIC EQUIPMENT MECHANIC Partial thyroidectomy Chelse a Manchak PHOTOGRAPHIC EQUIPMENT MECHANIC Partial thyroidectomy Kayela Madiha PHOTOGRAPHIC EQUIPMENT MECHANIC Partial thyroidectomy Francheska A Fast DO Work Phone: Partial thyroidectomy Chelse a Manchak PHOTOGRAPHIC EQUIPMENT MECHANIC Partial thyroidectomy Chelse a Manchak PHOTOGRAPHIC EQUIPMENT MECHANIC Partial thyroidectomy Chelse a Manchak PHOTOGRAPHIC EQUIPMENT MECHANIC Partial thyroidectomy [place]se a Manchak PHOTOGRAPHIC EQUIPMENT MECHANIC right hand [facility] Yoko Slarb PANEL SEWER right hand CMC Naida Manchak PHOTOGRAPHIC EQUIPMENT MECHANIC right hand CMC Naida Manchak PHOTOGRAPHIC EQUIPMENT MECHANIC right hand C[facility] Kayela Radfor d PHOTOGRAPHIC EQUIPMENT MECHANIC right hand [facility] Francheska A Fast DO Work Phone: right hand CMC Naida Manchak PHOTOGRAPHIC EQUIPMENT MECHANIC right hand CMC Naida Manchak PHOTOGRAPHIC EQUIPMENT MECHANIC right hand CMC Naida Manchak PHOTOGRAPHIC EQUIPMENT MECHANIC right hand CMC Naida Manchak PHOTOGRAPHIC EQUIPMENT MECHANIC Tonsillectomy Yoko Slarb PANEL SEWER Tonsillectomy Naida Manchak PHOTOGRAPHIC EQUIPMENT MECHANIC Tonsillectomy Naida Manchak PHOTOGRAPHIC EQUIPMENT MECHANIC Tonsillectomy Kayela [place] PHOTOGRAPHIC EQUIPMENT MECHANIC Tonsillectomy Francheska A Fast DO Work Phone: Tonsillectomy Naida Manchak PHOTOGRAPHIC EQUIPMENT MECHANIC Tonsillectomy Naida Manchak PHOTOGRAPHIC EQUIPMENT MECHANIC Tonsillectomy Naida Manchak PHOTOGRAPHIC EQUIPMENT MECHANIC Tonsillectomy Naida Manchak PHOTOGRAPHIC EQUIPMENT MECHANIC TURP Yoko Slarb PANEL SEWER TURP Naida Manchak PHOTOGRAPHIC EQUIPMENT MECHANIC TURP Naida Manchak PHOTOGRAPHIC EQUIPMENT MECHANIC TURP Kayela Madiha PHOTOGRAPHIC EQUIPMENT MECHANIC TURP Francheska A Fast DO Work Phone: TURP Naida Manchak PHOTOGRAPHIC EQUIPMENT MECHANIC TURP Naida Manchak PHOTOGRAPHIC EQUIPMENT MECHANIC TURP Naida Manchak PHOTOGRAPHIC EQUIPMENT MECHANIC TURP Naida Manchak PHOTOGRAPHIC EQUIPMENT MECHANIC Plan of Treatment Date Care Activity Detail Author Start: 03-02-2025 Patient discharge [facility] Start: 06-03-2023 Procedure Education Eprescribed prescriptions (G8553) [facility] Work Phone: Start: 06-03-2023 Blood count complete auto&auto difrntl wbc CBC W/AUTO DIFF WBC (24482) [facility] Work Phone: Start: 06-03-2023 Comprehensive metabolic panel METABOLIC PANEL, COMPREHENSIVE (71385) [facility] Work Phone: Start: 02-25-2023 Procedure Education Eprescribed prescriptions (G8553) [facility]; [facility] Work Phone: Start: 02-25-2023 Blood count complete auto&auto difrntl wbc CBC W/AUTO DIFF WBC (32243) [facility]; [facility] Work Phone: Start: 02-25-2023 Comprehensive metabolic panel METABOLIC PANEL, COMPREHENSIVE (17225) [facility] Work Phone: Start: 02-25-2023 Lipid panel LIPID PANEL (81492) [facility]; [facility] Work Phone: Start: 02-25-2023 Sedimentation rate rbc non-automated SED RATE ERYTHROCYTE (34214) [facility]; [facility] Work Phone: Start: 02-25-2023 C-reactive protein C-REACTIVE PROTEIN (89849) [facility]; [facility] Work Phone: Start: 02-25-2023 Antinuclear antibodies mario MARIO (ANTINUCLEAR ANTIBODY) (24413) [facility]; [facility] Work Phone: Start: 02-25-2023 Rheumatoid factor quantitative RHEUMATOID FACTOR-QUANT (23188) [facility]; [facility] Work Phone: Start: 02-13-2023 Egd transoral biopsy single/multiple EGD BIOPSY SINGLE/MULTIPLE [facility] Start: 02-13-2023 Patient discharge [facility] Start: 11-29-2022 Oxygen therapy [facility] Start: 11-29-2022 [facility] Start: 11-12-2022 Procedure Education Eprescribed prescriptions (G8553) [facility]; [facility] Work Phone: Start: 11-12-2022 Lipid panel LIPID PANEL (16791) [facility]; [facility] Work Phone: Start: 11-12-2022 Blood count complete auto&auto difrntl wbc CBC W/AUTO DIFF WBC (87194) [facility]; [facility] Work Phone: Start: 11-12-2022 Comprehensive metabolic panel METABOLIC PANEL, COMPREHENSIVE (02824) [facility]; [facility] Work Phone: Start: 11-12-2022 25 hydroxy includes fractions if performed Vitamin D Hydroxy (01948) [facility]; [facility] Work Phone: Start: 11-12-2022 Assay of prostate specific antigen total PSA (Medicare - G0103) (81271) [facility]; [facility] Work Phone: Start: 07-30-2022 25 hydroxy includes fractions if performed Vitamin D Hydroxy (56108) [facility]; [facility] Work Phone: Start: 07-30-2022 Blood count complete auto&auto difrntl wbc CBC W/AUTO DIFF WBC (49707) [facility]; [facility] Work Phone: Start: 07-30-2022 Comprehensive metabolic panel METABOLIC PANEL, COMPREHENSIVE (52256) [facility]; [facility] Work Phone: Start: 07-30-2022 Lipid panel LIPID PANEL (66611) [facility]; [facility] Work Phone: Start: 07-30-2022 Procedure Education Eprescribed prescriptions (G8553) [facility]; [facility] Work Phone: Start: 05-10-2022 Influenza vaccination INFLUENZA (#1) [facility] Start: 05-08-2022 Dehydroepiandrosterone DHEA (DEHYDROEPIANDROSTER ONE) (13086) [facility]; [facility] Work Phone: Start: 05-08-2022 Assay of estradiol ESTRADIOL (41773) [facility]; [facility] Work Phone: Start: 05-08-2022 Gonadotropin chorionic qualitative HCG (HUMAN CHORIONIC GONADOTROPIN) (23477) [facility]; [facility] Work Phone: Start: 05-08-2022 Assay of prolactin PROLACTIN (76382) [facility]; [facility] Work Phone: Start: 05-08-2022 Gonadotropin follicle stimulating hormone FSH AND LH (71998) [facility]; [facility] Work Phone: Start: 05-08-2022 Assay of testosterone free TESTOSTERONE FREE (33234) [facility]; [facility] Work Phone: Start: 05-08-2022 Assay of testosterone total TESTOSTERONE TOTAL (67183) [facility]; [facility] Work Phone: Start: 03-23-2022 Procedure Education Eprescribed prescriptions (G8553) [facility]; [facility] Work Phone: Start: 01-24-2022 Procedure Education Eprescribed prescriptions (G8553) [facility]; [facility] Work Phone: Start: 01-24-2022 Urnls dip stick/tablet reagent auto microscopy URINALYSIS, W/ MICRO (11268) [facility]; [facility] Work Phone: Start: 01-24-2022 Blood count complete auto&auto difrntl wbc CBC W/AUTO DIFF WBC (91122) [facility]; [facility] Work Phone: Start: 01-24-2022 Comprehensive metabolic panel METABOLIC PANEL, COMPREHENSIVE (74012) [facility]; [facility] Work Phone: Start: 01-15-2022 Assay of prostate specific antigen total PSA (PROSTATE SPECIFIC ANTIGEN) (61246) [facility]; [facility] Work Phone: Comment on above: please draw with 2021 labs Start: 01-10-2022 Colsc flx w/rmvl of tumor polyp lesion snare tq COLONOSCOPY W/LESION REMOVAL [facility] Work Phone: Start: 01-10-2022 Egd transoral biopsy single/multiple EGD BIOPSY SINGLE/MULTIPLE [facility] Work Phone: Start: 10-25-2021 Procedure Education Eprescribed prescriptions (G8553) [facility]; [facility] Work Phone: Start: 10-25-2021 Lipid panel LIPID PANEL (42030) [facility]; [facility] Work Phone: Start: 10-25-2021 Comprehensive metabolic panel METABOLIC PANEL, COMPREHENSIVE (58946) [facility]; [facility] Work Phone: Start: 09-09-2021 ADVANCE DIRECTIVE DISCUSSION ADVANCE DIRECTIVE DISCUSSION [facility] Start: 07-11-2021 Procedure Education Eprescribed prescriptions (G8553) [facility]; [facility] Work Phone: Start: 07-11-2021 Provider Instructions for Treatment [facility]; [facility] Work Phone: Start: 07-11-2021 Lipid panel LIPID PANEL (73161) [facility]; [facility] Work Phone: Start: 07-11-2021 Comprehensive metabolic panel METABOLIC PANEL, COMPREHENSIVE (52070) [facility]; [facility] Work Phone: Start: 07-11-2021 Cyanocobalamin vitamin b-12 VITAMIN B12 AND FOLATES (53267) [facility]; [facility] Work Phone: Start: 07-11-2021 Hepatitis c antibody HEPATITIS C ANTIBODY (64793) [facility]; [facility] Work Phone: Start: 05-16-2021 Procedure Education Eprescribed prescriptions (G8553) [facility]; [facility] Work Phone: Start: 05-16-2021 Urnls dip stick/tablet reagent auto microscopy URINALYSIS, W/ MICRO (91226) [facility]; [facility] Work Phone: Start: 09-26-2017 End: 09-26-2017 Appointment [facility] [employer] Work Phone: Start: 04-30-2017 End: 04-30-2017 Appointment App[facility]ment [facility] Work Phone: Start: 04-15-2017 End: 04-15-2017 Appointment Appointment [facility] [employer] Work Phone: Start: 09-25-2016 End: 09-25-2016 MEDIA RELATIONS INTERN MEDIA RELATIONS INTERN [facility] [employer] Work Phone: Start: 09-25-2016 End: 09-25-2016 Electrocardiogram, complete EKG (In office) [facility] [employer] Work Phone: Start: 09-25-2016 End: 09-25-2016 Follow Up Appt 1 year Follow Up Appt 1 year [facility] [employer] Work Phone: Start: 03-20-2016 End: 09-20-2015 *Hepatic Function Panel *Hepatic Function Panel [facility] [employer] Work Phone: Start: 03-20-2016 End: 09-20-2015 Lipid panel [AGGREGATE] *Lipid Profile CC PCP [facility] [employer] Work Phone: Start: 10-07-2015 End: 09-19-2015 *Hepatic Function Panel *Hepatic Function Panel [facility] [employer] Work Phone: Start: 10-07-2015 End: 09-19-2015 Lipid panel [AGGREGATE] *Lipid Profile CC PCP [facility] [employer] Work Phone: Start: 09-23-2015 End: 09-23-2015 MEDIA RELATIONS INTERN MEDIA RELATIONS INTERN [facility] [employer] Work Phone: Start: 09-23-2015 End: 09-23-2015 Follow Up Appt 1 year Follow Up Appt 1 year [facility] [employer] Work Phone: Start: 08-17-2014 End: 08-17-2014 MEDIA RELATIONS INTERN MEDIA RELATIONS INTERN [facility] [employer] Work Phone: Start: 08-17-2014 End: 08-17-2014 Follow Up Appt 1 year Follow Up Appt 1 year [facility] [employer] Work Phone: Start: 01-11-2014 DIABETES SCREEN DIABETES SCREEN [facility] Start: 08-18-2013 End: 07-06-2015 *Hepatic Function Panel *Hepatic Function Panel [facility] [employer] Work Phone: Start: 08-18-2013 End: 08-18-2013 MEDIA RELATIONS INTERN MEDIA RELATIONS INTERN [facility] [employer] Work Phone: Start: 08-18-2013 End: 08-18-2013 Follow Up Appt 1 year Follow Up Appt 1 year [facility] [employer] Work Phone: Start: 08-18-2013 End: 07-06-2015 Lipid panel [AGGREGATE] *Lipid Profile CC PCP [facility] [employer] [employer] Work Phone: Start: 11-28-2012 End: 07-06-2015 *Hepatic Function Panel *Hepatic Function Panel [facility] [employer] [employer] Work Phone: Start: 11-28-2012 End: 07-06-2015 Lipid panel [AGGREGATE] *Lipid Profile [facility] [employer] [employer] Work Phone: Start: 11-21-2012 End: 07-06-2015 Cardiovascular stress test using treadmill Treadmill stress test (no imaging) [facility] [employer] [employer] Work Phone: Start: 09-05-2012 End: 07-06-2015 *CRPHS - C-reactive protein, high sensitivity (hsCRP) *CRPHS - C-reactive protein, high sensitivity (hsCRP) [facility] [employer] [employer] Work Phone: Start: 09-05-2012 End: 09-05-2012 Follow Up Appt 1 year Follow Up Appt 1 year [facility] [employer] [employer] Work Phone: Start: 12-18-2011 End: 03-25-2012 *Hepatic Function Panel *Hepatic Function Panel [facility] [employer] [employer] Work Phone: Start: 12-18-2011 End: 03-25-2012 Lipid panel [AGGREGATE] *Lipid Profile [facility] Work Phone: Start: 08-28-2011 End: 09-18-2011 *Hepatic Function Panel *Hepatic Function Panel [facility] [employer] [employer] Work Phone: Start: 08-28-2011 End: 07-06-2015 Follow Up Appt 6 months Follow Up Appt 6 months [facility] [employer] Work Phone: Start: 08-28-2011 End: 09-18-2011 Lipid panel [AGGREGATE] *Lipid Profile [facility] [employer] [employer] Work Phone: Start: 2010 PNEUMOCOCCAL: 65+ (1 - PCV) PNEUMOCOCCAL: 65+ (1 - PCV) [facility] Start: 1995 SHINGRIX VACCINE (1 of 2) SHINGRIX VACCINE (1 of 2) [facility] Start: 1964 Urine microalbumin profile DTAP,TDAP,TD (1 - Tdap) [facility] Start: 1963 ANNUAL PCP TEAM CHRONIC DISEASE VISIT ANNUAL PCP TEAM CHRONIC DISEASE VISIT [facility] Start: 1957 Adult depression screening assessment DEPRESSION SCREENING [facility] Dehydroepiandrostero ne sulfate (DHEA-S) [Mass/volume] in Serum or Plasma [facility] Work Phone: Patient Education [facility] Work Phone: Patient referral [facility] Work Phone: Radionuclide imaging of perfusion of myocardium under exercise stress [facility] SURGICAL PATHOLOGY SURGICAL PATH OLOGY Lab Routine Subareolar mass of right breast 04/17/2022 2:10 PM EDT [facility] Work Phone: Testosterone Free [Mass/volume] in Serum or Plasma [facility] Work Phone: Testosterone measurement [facility] Work Phone: [facility] Work Phone: [facility] Work Phone: [facility] Work Phone: [facility] Work Phone: [facility] Work Phone: [facility] Work Phone: [facility] Work Phone: [facility] Work Phone: [facility] Work Phone: [facility] Work Phone: Immunizations Immunization Date Immunization Notes Care Provider Everton cantu 07-08-2023 COVID-Moderna (100 MCG/0.5 ML) Francheska Fast DO Work Phone: [facility] Work Phone: Comment on above: Spikevax 12-06-2021 COVID-Moderna (50 MCG/0.25 ML) Francheska Fast DO Work Phone: [facility] Work Phone: Comment on above: @ [place] 06-24-2021 COVID-Moderna (100 MCG/0.5 ML) Francheska Fast [...] virus vaccine Dr. Spike Mullen Work Phone: [facility] 07-04-[address] Spike Mullen Work Phone: [facility] Payers Date Payer Category Payer Self-pay [id number] 2021 Medicare [id number] 2021 Medicare MMO MEDICARE MMO MEDADVANTAGE O [id number] 2021-Present [phone] [address] [facility] [id number] 2021 Medicare MMO MEDICARE MMO MEDADVANTAGE O [id number] 2021-Present [phone] [address] [place] [id number] [facility] [id number] 2020 Medicare [id number] 2013 Unknown [id number] 2010 Medicare [id number] 1945 Unknown [id number] Medicare [id number] Unknown Unknown [facility] PACKAGE PLAN [id number] Unknown [id number] Unknown [id number] Unknown [id number] Unknown [id number] Unknown [id number] Unknown [id number] Unknown [id number] Unknown [id number] Unknown [id number] Unknown [id number] Unknown [id number] Unknown [id number] Unknown [id number] Social History Date Type Detail Facility Alcohol Use: Alcohol Use: [facility] Work Phone: Comment on above: wine Tobacco Use: Tobacco Use: [facility] Work Phone: Start: 01-08-2022 End: 12-03-2023 Tobacco smoking status NHIS Unknown if ever smoked [facility] Start: 1945 Sex Assigned At Male [facility] Start: 11-24-2010 End: 02-25-2025 Tobacco smoking status NHIS Never smoked tobacco [facility] Work Phone: Start: 11-24-2010 End: 12-29-2010 Tobacco use and exposure Smokeless tobacco non-user [facility] Work Phone: Start: 04-10-2022 End: 04-17-2022 Alcohol intake Current drinker of alcohol (finding) [facility] Start: 04-10-2022 End: 04-17-2022 Alcohol intake [facility] Start: 1945 Sex Assigned At Not on file [facility] Start: 03-31-2022 End: 04-17-2022 Exposure to SARS-CoV-2 (event) Not sure [facility] Start: 12-30-2024 Sex Male (finding) [facility] Goals Date Patient Goal Desired Activity /State Mental Status Date Assessment Result Facility 03-02-2025 Cognitive function Level Of Cons ciousness Awake;Alert [facility] Work Phone: 03-02-2025 Cognitive function Voice/Name [facility] Work Phone: 02-13-2023 Cognitive function Voice/Name [facility] Work Phone: 11-29-2022 Cognitive function Awake;Alert;Appropriat e [facility] Work Phone: 01-10-2022 Cognitive function Voice/Name [facility] Work Phone: Clinical Notes 04-10-2022 to 03-02-2025 Note Date & Type Note Facility 03-02-2025 Consult note [facility] 03-02-2025 Procedure note [facility] 03-02-2025 Procedure note [facility] 03-02-2025 History and physi yan note [facility] 03-02-2025 Note [facility] Medical Records Department [address] [place] [address] History Physical Exam 03/02/25 0648 MR#: [id number] Acct: [id number] Name: JUNG ABURTO Rep #: [id number] : 1945 79 From: David Parra DO PCP: Dr. Francheska Alonzo, DO Status:REG [facility] [place] Location: [place] [address] HPI - General General Date of Admission: 03/02/25 Date of Service: 03/02/25 Chief Complaint: yates's esophagus HPI Narrative JUNG ABURTO, is a 79 M who presents for surveillance of yates's esophagus. 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 Biopsied. Small hiatal hernia. Normal stomach. No gross lesions in the first portion of the duodenum. OV 7..24 pt reports that he is feeling well [...] Moderate to marked diffuse fecal retention. OV 25 pt reports that PCP switched him from [...] like another EGD to check on his Yates's esophagus. [facility] Medical History Arteriosclerosis of coronary artery Normal stress echocardiogram Gastritis Yates esophagus Wears glasses Alcohol use Arthritis Back [...] PO QDAY 09/25/17 Unknown His tory tablet s-adenosylmethionine 400 mg tablet 800 mg PO DAILY 10/10/21 Unknown History melatonin 12 mg tablet 12 mg PO QHS 10/16/22 Unknown Hist ory rosuvastatin 10 mg tablet 20 mg PO DAILY 10/16/22 11/28/22 H istory Held on 02/25/25. Instructions: pt does not want to take it aspirin-sod bicarb-citric acid 325 1 tab PO PRN PRN BLOATING Unknown History mg-1,916 mg-1,000 mg efferves tab ([place]ane-[place] Original) lisinopril 5 mg tablet 5 mg PO DAILY #90 tabs 09/28/24 Un known Rx vonoprazan 10 mg tablet (Voquezna) 10 mg PO QDAY 10/01/24 Unknown H istory omeprazole 40 mg capsule,delayed 40 mg PO QDAY #90 caps 10/16/24 Un known Rx release Allergy/AdvReac Type Severity Reaction Status Date / Time No Known Allergies Allergy Verified 03/02/25 06:01 Family History Father Cancer Colon cancer Mother , age 72 CAD (coronary artery disease) Hypertension Breast cancer Surgical History History of hand surgery History of cardiac catheterization History of esophagogastroduodenoscopy (EGD) Hx of foot surgery Hx of colonoscopy Hx of hernia repair Hx of transurethral resection of prostate Hx of appendectomy History of hydrocelectomy Social History Smoking Status: Never smoker alcohol intake: current alcohol intake frequency: 0-2 drinks per day substance use type: does not use caffeine: Yes Type: coffee Number of servings: 4 ROS Constitutional Constitutional: Denies fatigue, fever(s), poor appetite, weight gain or weight loss Gastrointestinal Gastrointestinal: Denies belching, bloating, change in bowel habits, change in stool character, chewing difficulty, coffee ground emesis, constipation, cramping, diarrhea, dyspepsia, dysphagia, early satiety, excessive flatus, fecal incontinence, heartburn, hematemesis, hematochezia, hemorrhoids, loose stools, melena, nausea, odynophagia, rectal bleeding, tenesmus, vomiting or weig (more content not included)... [facility] 03-02-2025 Consult note [facility] 12-17-2024 Evaluation note Diagnosis Onset Date Resolution Yates esophagus chronic December 082024 8:26am Gastroesophageal reflux disease noneactive December 17, 2024 8:26am Essential (primary) hypertension chronic January 26, 2025 12:54pm Hyperlipidemia chronic January 26, 2025 12:54pm Yates esophagus chronic March 022024 5:38am [facility] Work Phone: 1(437) 972-224701-23-2025 Evaluation note* Diagnosis Onset Date Resolution Status Admit Date Yates esophagus chronic October 01, 2024 1:53pm Gastroesophageal reflux disease none active October 01, 2024 1:53pm Yates esophagus chronic December 082024 8:26am Gastroesophageal reflux disease none active December 17, 2024 8:26am [facility] Work Phone: 1(319) 188-842206-07-2023 Procedure [facility] 02-13-2023 Procedure [facility]03-27-2023 Procedure note [facility]03-24-2023 History and physical note Author Tea Hart [facility] November 30, 2022 4:03pm Note Date/Time November 30, 2022 4:0 3pm [facility] Medical Records Department [address] [place] [address] History & Physical Exam 11/30/22 1600 MR#: [id number] Acct: [id number] Name: JUNG ABURTO Rep #:[id number] : 1945 77 From: Tea ARIZMENDI PCP: Dr. Francheska Alonzo, DO Status:PRE [facility] [place] Location: [facility] History and Physical JUNG ABURTO, is a 77 M who presents today for a cardiovascular outpatient follow-up.? He is a gentleman with no obstructive coronary disease, hypertension, hyperlipidemia, and probable raynauds phenomenon.? He returns for follow-up visit.? You do remember he underwent stress echocardiographic evaluation in 2018 with no evidence of ischemia.? He also [...] Medical History? Alcohol use Arthritis Back pain Yates esophagus Cardiology follow-up encounter Chronic renal insufficiency [...] KYLEIGH Hart; Dr. Francheska Alonzo, DO~ Signed [facility] Work Phone: 1(754) 805-182308-09-2022 NoteHNO ID: [id number] Author: Mal Joseph MD Service: ? Author [...] applied and the patient tolerated the procedure well.[facility]08-09-2022 NoteHNO ID: [id number] Author: Ofelia Plaza Service: ? Author Type: [...] procedures): All specimen containers correctly labeled. [facility] History of Present illness Narrative* Mal Joseph [...] harman erated the procedure well. * Ofelia Mela - 04/17/2022 1:39 PM EDT UNIVERSAL PROTOCOL [...] correctly labeled. Ofelia Plaza [facility] NoteHNO ID: [id number] Author: Mal Joseph MD Service: ? Author [...] entered by the nurse and reviewed by il Nursing Notes: Kirstie Lopez RN 04/10/2022 9:38 [...] depression, and denies voices, (more content not included)...[facility]08-02-2022 History of Present illness Narrative* Mal Joseph MD - 04/10/2022 3:15 PM EDT HISTORY AND PHYSICAL - BREAST COMPLAINT Jung Lamonte 1945 REFERRING PHYSICIAN: Francheska Alonzo DO CHIEF [...] at the request of Dr. Francheska Alonzo, DO for my opinion and advice regarding [...] entered by the nurse and reviewed by me Nursing Notes: Kirstie Lopez RN 04/10/2022 9:38 [...] Mal Joseph III, MD [facility] in [facility] Nurse Note* Kirstie Lopez RN - 04/10/2022 [...] 2017 Kirstie Lopez RN [facility] Note Date/Time March 02, 2025 6:31 am [facility] Medical Records Department [address] [place] [address] Pre-Anesthesia Evaluation 03/02/25 0626 MR#: [id number] Acct: [id number] Name: JUNG ABURTO Rep #:[id number] : 1945 79 From: Drake Reilly MD PCP: Dr. Francheska Alonzo, DO Status:REG [facility] Y Race: C Location: [place] [address] ASA Classification* ASA Classification ASA Classification: 2 Assessment & Plan Anesthesia* Anesthesia Assessment Anesthesia Assessment: Discussed sedation and/or anesthesia options, risks, benefits, and alternatives with patient/parents/legal guardian/POA. Questions invited. The patient/parents/legal guardian/POA seems to understand and agrees to proceedwith anesthesia plan. Reviewed the physical assessment, medical history, allergy history and patient home medications list prior to surgery/procedure/anesthetic and documented any changes. Performed airway and anesthesia risk assessments. Anesthesia Type Anesthesia Type: MAC History Source History Obtained from:: Patient and Chart Anesthesia Focused Assessment* Temperature: 97.4 F Pulse Rate: 55 Blood Pressure: 162/80 Respiratory Rate: 18 Pulse Ox: 100 Oxygen Delivery Method: Room Air Airway Assessment Mouth opens: >3 cm Mallampati Score: III Teeth Condition: Caps/Crowns (Patient has a couple crowns. They are tight.) Neck Range of motion (ROM): Limited ROM (Slight decrease in extension) Labs Anesthesia Preop lab: CBC WBC 5.5 K/mm3 (4.4-11.0) 12/23/24 06:09 12/23/24 RBC 4.40 M/mm3 (4.6-6.2) L 12/23/24 06:09 12/23/24 Hgb 15.1 g/dL (13.0-16.5) 12/23/24 06:09 12/23/24 Hct 42.5 % (40-54) 12/23/24 06:09 12/23/24 Plt Count 188 K/mm3 (150-450) 12/23/24 06:09 12/23/24 CHEMISTRY Potassium 4.6 mmol/L (3.3-5.1) 12/23/24 06:09 12/23/24 Sodium 139 mmol/L (133-145) 12/23/24 06:09 12/23/24 Magnesium 2.3 mg/dL (1.6-2.6) 04/18/21 12:42 04/18/21 BUN 21 mg/dL (4-19) H 12/23/24 06:09 12/23/24 Creatinine 0.93 mg/dL (0.70-1.20) 12/23/24 06:09 12/23/24 Glucose 83 mg/dL (70-99) 12/23/24 06:09 12/23/24 TSH 0.81 uIU/mL (0.358-3.74) 04/03/21 13:11 COAG Pre-Assessment Diagnosis/Proposed Procedure Planned Operative Procedure(s): egd Anesthesia History Anesthesia History - importer or exporter: Anesthesia History - importer or exporter Hx Hospitalization No 02/25/25 12:56 Any Problems With Anesthesia No 02/25/25 12:56 Cholinesterase deficiency No 02/25/25 12:56 You/Your Family Experience No 02/25/25 12:56 fever (hyperthermia) with Relationship Recent Exposure to Contagious No 03/02/25 06:01 Disease Does patient have nerve No 02/25/25 12:56 stimulator Patient instructed to have device shut off --Does patient have Pacemaker No 03/02/25 06:01 or ICD? When Was Last Pacemaker Check QUESTION #4 FULL TEXT: You/Your Family Experience fever (hyperthermia) with Anesthesia Last Oral Intake Last Oral intake: Last Oral Intake NPO since 15:00 03/02/25 06:01 Meds taken in AM with sips of No 03/02/25 06:01 water? Meds patient instructed to take am of surgery PONV PONV - importer or exporter: PONV - importer or exporter Female No 02/25/25 12:56 HX of Motion Sickness No 02/25/25 12:56 HX of N/V After Surgery No 02/25/25 12:56 Non-Smoker Yes 02/25/25 12:56 Duration of Surgery greater No 02/25/25 12:56 than 60 minutes Number of Risk Factors 1 02/25/25 12:56 PONV Score Low Risk 02/25/25 12:56 Height & Weight Height & Weight: Anesthesia: Height & Weight Height 6 ft 03/02/25 06:01 Weight: 77.5 kg 03/02/25 06:01 Body Mass Index (BMI) 23.1 03/02/25 06:01 Respiratory Assessment Respiratory Assessment - importer or exporter: Respiratory Tract Infection Hx - importer or exporter Hx Respiratory Tract Infection No 02/25/25 12:56 STOP Sleep Apnea STOP Sleep Apnea - importer or exporter: STOP Sleep Apnea - importer or exporter Hx Hypertension Yes: CONTROLLED WITH 02/25/25 12:56 [...] Tobacco Use History Tobacco Use History - importer or exporter: Tobacco Use History - importer or exporter Tobacco Use Smoking Status Never smoker 06/19/25 12:56 Hx Tobacco Use No 02/25/25 12:56 Years Smoking Packs Smoked per Day Smoking Cessation Date was within the last 15 years Hx Smoking Cessation Date Hx Smoking Cessation Counseling Hematologic Medial History Hematologic Hx - importer or exporter: 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 Specify any problems Hx of Preganancy in last 3 N/A 02/25/25 12:56 Months Nurse Filling Out Transfusion NBUCHER 02/25/25 12:56 & Questions: Date: 02/25/25 02/25/25 12:56 Time: 12:56 02/25/25 12:56 Patient unable to answer at this time (ie. confused, unrespo /Reproduction History /Reproductive History - importer or exporter: /Reproductive Hx- importer or exporter Hx Now No 02/25/25 12:56 Gestational Age (in weeks): EDC: Hx Hx Para Hx Section SAB No 02/25/25 12:56 Active Medications Active Medications: Current Medications Generic Name Dose Route Start Last Admin Trade Name Freq PRN Reason Stop Dose Admin Lactated Ringer's 1,000 mls @ 15 mls/hr 03/02/25 06:00 03/02/25 06:12 IV 15 mls/hr .Q48H LIYA Administration PFSH Medical History Arteriosclerosis of coronary artery Normal stress echocardiogram Gastritis Yates esophagus Wears glasses Alcohol use Arthritis Back pain Hepatitis High cholesterol Gastric reflux Non-smoker History of edema History of echocardiogram History of stress test Cardiology follow-up encounter Hx of colonic polyp GERD (gastroesophageal reflux disease) Mitral valve annular calcification Chronic renal insufficiency Essential (primary) hypertension Raynaud disease Hyperlipidemia Palpitations Home Medications ?Medication ?Instructions ?Recorded ?Last Taken ?Type coenzyme Q10 30 mg capsule 30 mg PO DAILY 05/21/16 Unk nown History multivitamin 1 ea PO DAILY 05/21/16 Unkno wn History cyanocobalamin (vitamin B-12) 2,000 mcg PO DAILY 04/22 Unknown History 2,000 mcg tablet ascorbic acid (vitamin C) 1,000 mg 1 g PO QDAY 8 Unknown History tablet s-adenosylmethionine 400 mg tablet 800 mg PO DAILY 09/30 Unknown History melatonin 12 mg tablet 12 mg PO QHS 10/16/22 Unknow n History rosuvastatin 10 mg tablet 20 mg PO DAILY 10/16/22/11/01 History Held on 02/25/25. Instructions: pt does not want to take it aspirin-sod bicarb-citric acid 325 1 tab PO PRN PRN BL OATING 11/30/22 Unknown History mg-1,916 mg-1,000 mg efferves tab (Mary[place]ane-[place] Original) lisinopril 5 mg tablet 5 mg PO DAILY #90 tabs 09/28 Unknown Rx vonoprazan 10 mg tablet (Voquezna) 10 mg PO QDAY 10/01 Unknown History omeprazole 40 mg capsule,delayed 40 mg PO QDAY #90 cap s 10/16/24 Unknown Rx release Allergy/AdvReac Type Severity Reaction Status Date / Time No Known Allergies Allergy Verified 03/02/25 06:01 Family History Father Cancer Colon cancer Mother , age 72 CAD (coronary artery disease) Hypertension Breast cancer Surgical History History of hand surgery History of cardiac catheterization History of esophagogastroduodenoscopy (EGD) Hx of foot surgery Hx of colonoscopy Hx of hernia repair Hx of transurethral resection of prostate Hx of appendectomy History of hydrocelectomy Social History Smoking Status: Never smoker alcohol intake: current alcohol intake frequency: 0-2 drinks per day substance use type: does not use caffeine: Yes Type: coffee Number of servings: 4 Review of Systems (Anesthesia) ROS Narrative System reviewed and no additional complaints, except as documented. 03/02/25 0631 <Electronically signed by Drake anne MD> Date _ Drake Tommie Marcano Signature: Date CC: ~ Signed [facility] Work Phone: Consult note Author Leo Bloom [facility] Note Date/Time March 02, 2025 7:17 am [facility] Medical Records Department [address] [place] [address] Anesthesia Postop Eval I 03/02/25715 MR#: [id number] Acct: [id number] Name: JUNG ABURTO Rep #:[id number] : 1945 79 From: Leo Bloom PCP: Dr. Francheska Alonzo, DO Status:REG [facility] [place] Y Race: C Location: [place] [address] Anesthesia: Postop Eval I Current Vital Signs Temperature: 97.9 F Pulse Rate: 68 Blood Pressure: 139/81 Respiratory Rate: 16 Pulse Ox: 98 Oxygen Delivery Method: Room Air Assessment Airway patent: Yes Spontaneous unlabored respirations: Yes Mental status: Awake nausea: No Vomiting: No Anesthesia Complication: No Fluid Hydration Crystalloid volume administer (ml): 300 Total IV fluid infused: 300 Progress Note Anesthesia document: Postop Eval 1 completed: Yes 03/02/25716 <Electronically signed by Leo Bloom > Date _ Leo Marcano Signature: Date CC: ~ Signed [facility] Work Phone: Evaluation note* Diagnosis Onset Date Resolution Status Essential (primary) hypertension chronic Hyperlipidemia chronic GERD (gastroesophageal reflux disease) acute Hx of colonic polyp acute [facility] Work Phone: Evaluation note* Diagnosis Subareolar mass of right breast- Primary [facility] Diagnosis Onset Date Resolution Status Yates esophagus acute Gastritis acute GERD (gastroesophageal reflux disease) acute Hx of colonic polyp acute [facility] Work Phone: Evaluation note* Diagnosis Onset Date Resolution Status Essential (primary) hypertension chronic Hyperlipidemia chronic Abnormal cardiac CT angiography acute Essential (primary) hypertension chronic Hyperlipidemia chronic [facility] Work Phone: Evaluation note* Diagnosis Onset Date Resolution Status Essential (primary) hypertension chronic Hyperlipidemia chronic Abnormal cardiac CT angiography acute Essential (primary) hypertension chronic Hyperlipidemia chronic Yates esophagus chronic [facility] Work Phone: Evaluation note* Diagnosis Onset Date Resolution Status Abnormal cardiac CT angiography acute Essential (primary) hypertension chronic Hyperlipidemia chronic Yates esophagus chronic Yates esophagus chronic [facility] Work Phone: Evaluation note* Diagnosis Onset Date Resolution Status Yates esophagus chronic [facility] Work Phone: Evaluation note* Diagnosis Onset Date Resolution Status Left breast mass acute [facility] Work Phone: Evaluation note* Diagnosis Onset Date Resolution Status Essential (primary) hypertension chronic Hyperlipidemia chronic [facility] Work Phone: History and physical note Author David Friend [facility] February 13, 2023 7:54am Note Date/Time February 13, 2023 7:54a m [facility] Medical Records Department [address] [place] [address] History & Physical Exam 02/13/23 0753 MR#: [id number] Acct: [id number] Name: JUNG ABURTO Rep #:[id number] : 1945 77 From: David Parra DO PCP: Dr. Francheska Alonzo DO Status:[facility] Location: [place] [address] History and Physical Date of Admission: 02/13/23 77 M who presents to the office today for f/u Yates's, GERD, bloating. Last year he reported bloating had resolved with addition of probiotic. No longer taking probiotic. Gets bloating one hour after eating, better if he avoids high FODMAP foods. Takes Dexilant qam and famotidine 40 mg qpm, acid reflux is prettywell controlled (except if he consumes chocolate or red wine). Jung established with this clinic .09.30 for screening colonoscopy evaluation. His age puts him past open access scheduling. His father had colon cancer in his early 60?s. Hx of iron deficiency. EGD and colonoscopy performed 01.10.22. EGD found LA Grade B esophagitis, Yates?s esophagus Ki-67 positive; medium sized hiatal hernia; [...] and oriented x3 Quality Reporting Tobacco Screening ([facility] 138) Smoking Status: Never smoker Assessment and Plan Assessment and Plan (1) Yates esophagus: ?Status:?Chronic ?Plan: Schedule EGD to reeval Yates's Continue dexilant and famotidine I have examined the patient and the H&P has been reviewed. There are no clinicalchanges since date of exam. 02/13/23 0097 <Electronically signed by David Friend > Cosigner Signature (if applicable): CC: Dr. Francheska Alonzo DO; David Parra DO~ Signed [facility] Work Phone: History and physical note Author David Parra [facility] Note Date/Time March 02, 2025 6:50 am [facility] Medical Records Department [address] [place] [address] History & Physical Exam 03/02/25 0648 MR#: [id number] Acct: [id number] Name: JUNG ABURTO Rep #:[id number] : 1945 79 From: David Parra DO PCP: Dr. Francheska Alonzo DO Status:[facility] Location: [place] [address] HPI - General General Date of Admission: 03/02/25 Date of Service: 03/02/25 Chief Complaint: yates's esophagus HPI Narrative JUNG ABURTO, is a 79 M who presents for surveillance of yates's esophagus. 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 Biopsied. Small hiatal hernia. Normal stomach. No gross lesions in the first portion of the duodenum. OV 7 pt reports that he is feeling well overall and denies GI symptoms of concern at this time. Pt reports that about 4 weeks ago he was diagnosed with Lyme disease, and has lost about 8 lbs since. Continues with dexilant. abd/pelvis CT 9.10.02 1. Prominent prostate enlargement. Possible bladder wall thickening although bladder is suboptimally evaluated by not being distended. 2. Moderate to marked diffuse fecal retention. OV 10.01.24 pt reports that PCP switched him from dexilant to voquenza 10mg dailyon 09.21.24. Pt reports it is working, but wears off after about 12 hours. Pt reports he recently stopped drinking alcohol and thinks that his GERD has gottenworse. OV 12.17.24 pt reports his PCP gave him Voquezna, has been taking this in the evenings and then Omeprazole in the mornings. Reports as long as he watches what, how much, and when he eats, he is able to keep him symptoms at bay. 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 [facility] Medical History Arteriosclerosis of coronary artery Normal stress echocardiogram Gastritis Yates esophagus Wears glasses Alcohol use Arthritis Back pain Hepatitis High cholesterol Gastric reflux Non-smoker History of edema History of echocardiogram History of stress test Cardiology follow-up encounter Hx of colonic polyp GERD (gastroesophageal reflux disease) Mitral valve annular calcification Chronic renal insufficiency Essential (primary) hypertension Raynaud disease Hyperlipidemia Palpitations Home Medications ?Medication ?Instructions ?Recorded ?Last Taken ?Type coenzyme Q10 30 mg capsule 30 mg PO DAILY 05/21/16 Unk nown History multivitamin 1 ea PO DAILY 05/21/16 Unkno wn History cyanocobalamin (vitamin B-12) 2,000 mcg PO DAILY 04/22 Unknown History 2,000 mcg tablet ascorbic acid (vitamin C) 1,000 mg 1 g PO QDAY 8 Unknown History tablet s-adenosylmethionine 400 mg tablet 800 mg PO DAILY 09/30 Unknown History melatonin 12 mg tablet 12 mg PO QHS 10/16/22 Unknow n History rosuvastatin 10 mg tablet 20 mg PO DAILY 10/16/2211/08 History Held on 02/25/25. Instructions: pt does not want to take it aspirin-sod bicarb-citric acid 325 1 tab PO PRN PRN BL OATING 11/30/22 Unknown History mg-1,916 mg-1,000 mg efferves tab (Maryjane-[place] Original) lisinopril 5 mg tablet 5 mg PO DAILY #90 tabs 09/28 Unknown Rx vonoprazan 10 mg tablet (Voquezna) 10 mg PO QDAY 10/01 Unknown History omeprazole 40 mg capsule,delayed 40 mg PO QDAY #90 cap s 10/16/24 Unknown Rx release Allergy/AdvReac Type Severity Reaction Status Date / Time No Known Allergies Allergy Verified 03/02/25 06:01 Family History Father Cancer Colon cancer Mother , age 72 CAD (coronary artery disease) Hypertension Breast cancer Surgical History History of hand surgery History of cardiac catheterization History of esophagogastroduodenoscopy (EGD) Hx of foot surgery Hx of colonoscopy Hx of hernia repair Hx of transurethral resection of prostate Hx of appendectomy History of hydrocelectomy Social History Smoking Status: Never smoker alcohol intake: current alcohol intake frequency: 0-2 drinks per day substance use type: does not use caffeine: Yes Type: coffee Number of servings: 4 ROS Constitutional Constitutional: Denies fatigue, fever(s), poor appetite, weight gain or weight loss Gastrointestinal Gastrointestinal: Denies belching, bloating, change in bowel habits, change in stool character, chewing difficulty, coffee ground emesis, constipation, cramping, diarrhea, dyspepsia, dysphagia, early satiety, excessive flatus, fecalincontinence, heartburn, hematemesis, hematochezia, hemorrhoids, loose stools, melena, nausea, odynophagia, rectal bleeding, tenesmus, vomiting or weight changes Vital Signs Vital Signs Vital Signs: 03/02/25 06:01 03/02/25 06:01 03/02/25 06:31 Temperature 97.4 F L 97.4 F L Temperature Source Temporal Pulse Rate 55 L 55 L Respiratory Rate 18 18 Respiratory Pattern Normal Blood Pressure 162/80 H 162/80 H Blood Pressure Mean 107 Blood Pressure Source Monitor Blood Pressure Position Semi-Fowlers Blood Pressure Location Left Arm Pulse Ox 100 100 Oxygen Delivery Method Room Air Room Air Weight Weight: 170 lb 13.732 oz Body Mass Index (BMI) 23.1 Physical Exam Const alert, oriented x3, no apparent distress and healthy appearing General Appearance: cooperative GI normal to inspection, nondistended, normoactive bowel sounds, soft to palpation,non-tender and non-distended Percussion: normal to percussion Rectal Exam: deferred Assessment & Plan Assessment/Plan (1) Yates esophagus: PLAN: Assessment and Plan Assessment and Plan (1) Gastroesophageal reflux disease: (2) Yates esophagus: Status: Chronic Plan: Discussed EGD findings, positive for Yates's still, negative for dysplasia. He is on omeprazole 20 mg p.o. daily and Voquenza in the pm because he thinks his new medicine is not lasting very long. Repeat EGD 03/02/25 0650 <Electronically signed by David Parra DO> Cosigner Signature (if applicable): CC: Dr. Francheska Alonzo, DO; David Parra, DO~ Signed [facility] Work Phone: instructions* Name Dates Details Patient Instructions Indication:Nonsmoker Start:11-Jul-2021 Instruction Type:Provider Instructions for Treatment How to Access Health Informa tion Online using Patient Portal and [employer]rd [employer] Apps Indication:Nonsmoker Start:11-Jul-2021 Instruction Type:Patient Edu cation Patient Instructions Indication:Nonsmoker Start:16-May-2021 Instruction Type:Provider Instructions for Treatment How to Access Health Informa tion Online using Patient Portal and [employer]rd [employer] Apps Indication:Nonsmoker Start:16-May-2021 Instruction Type:Patient Edu cation [facility]; [facility] Work Phone: instructions* Name Dates Details Patient Instructions Indication:Nonsmoker Start:11-Jul-2021 Instruction Type:Provider Instructions for Treatment How to Access Health Informa tion Online using Patient Portal and [employer]rd [employer] Apps Indication:Nonsmoker Start:11-Jul-2021 Instruction Type:Patient Edu cation Patient Instructions Indication:Nonsmoker Start:16-May-2021 Instruction Type:Provider Instructions for Treatment How to Access Health Informa tion Online using Patient Portal and [employer]rd [employer] Apps Indication:Nonsmoker Start:16-May-2021 Instruction Type:Patient Edu cation [facility]; [facility] Work Phone: instructions* Name Dates Details Patient Instructions Indication:Hyperlipidemia Start:25-Oct-2021 Instruction Type:Provider Instructions for Treatment How to Access Health Informa tion Online using Patient Portal and [employer]rd [employer] Apps Indication:Hyperlipidemia Start:25-Oct-2021 Instruction Type:Patient Education Patient Instructions Indication:Nonsmoker Start:11-Jul-2021 Instruction Type:Provider Instructions for Treatment How to Access Health Informa tion Online using Patient Portal and [employer]rd [employer] Apps Indication:Nonsmoker Start:11-Jul-2021 Instruction Type:Patient Education Patient Instructions Indication:Nonsmoker Start:16-May-2021 Instruction Type:Provider Instructions for Treatment How to Access Health Informa tion Online using Patient Portal and [employer]rd [employer] Apps Indication:Nonsmoker Start:16-May-2021 Instruction Type:Patient Education [facility]; [facility] Work Phone: Instructions* Name Dates Details Patient Instructions Indication:Hyperlipidemia Start:25-Oct-2021 Instruction Type:Provider Instructions for Treatment How to Access Health Informa tion Online using Patient Portal and [employer]rd [employer] Apps Indication:Hyperlipidemia Start:25-Oct-2021 Instruction Type:Patient Education Patient Instructions Indication:Nonsmoker Start:11-Jul-2021 Instruction Type:Provider Instructions for Treatment How to Access Health Informa tion Online using Patient Portal and [employer]rd [employer] Apps Indication:Nonsmoker Start:11-Jul-2021 Instruction Type:Patient Education Patient Instructions Indication:Nonsmoker Start:16-May-2021 Instruction Type:Provider Instructions for Treatment How to Access Health Informa tion Online using Patient Portal and [employer] Apps Indication:Nonsmoker Start:16-May-2021 Instruction Type:Patient Education [facility]; [facility] Work Phone: Instructions* Name Dates Details Patient Instructions Indication:Hyperlipidemia Start:25-Oct-2021 Instruction Type:Provider Instructions for Treatment How to Access Health Informa tion Online using Patient Portal and [employer]rd [employer] Apps Indication:Hyperlipidemia Start:25-Oct-2021 Instruction Type:Patient Education Patient Instructions Indication:Nonsmoker Start:11-Jul-2021 Instruction Type:Provider Instructions for Treatment How to Access Health Informa tion Online using Patient Portal and [employer]rd [employer] Apps Indication:Nonsmoker Start:11-Jul-2021 Instruction Type:Patient Education Patient Instructions Indication:Nonsmoker Start:16-May-2021 Instruction Type:Provider Instructions for Treatment How to Access Health Informa tion Online using Patient Portal and [employer]rd [employer] Apps Indication:Nonsmoker Start:16-May-2021 Instruction Type:Patient Education [facility]; [facility] Work Phone: Instructions* Name Dates Details Patient Instructions Indication:Hyperlipidemia Start:25-Oct-2021 Instruction Type:Provider Instructions for Treatment How to Access Health Informa tion Online using Patient Portal and [employer]rd [employer] Apps Indication:Hyperlipidemia Start:25-Oct-2021 Instruction Type:Patient Education Patient Instructions Indication:Nonsmoker Start:11-Jul-2021 Instruction Type:Provider Instructions for Treatment How to Access Health Informa tion Online using Patient Portal and [employer]rd [employer] Apps Indication:Nonsmoker Start:11-Jul-2021 Instruction Type:Patient Education Patient Instructions Indication:Nonsmoker Start:16-May-2021 Instruction Type:Provider Instructions for Treatment How to Access Health Informa tion Online using Patient Portal and [employer]rd [employer] Apps Indication:Nonsmoker Start:16-May-2021 Instruction Type:Patient Education [facility]; [facility] Work Phone: instructions* Name Dates Details Patient Instructions Indication:Hyperlipidemia Start:25-Oct-2021 Instruction Type:Provider Instructions for Treatment How to Access Health Informa tion Online using Patient Portal and [employer]rd [employer] Apps Indication:Hyperlipidemia Start:25-Oct-2021 Instruction Type:Patient Education Patient Instructions Indication:Nonsmoker Start:11-Jul-2021 Instruction Type:Provider Instructions for Treatment How to Access Health Informa tion Online using Patient Portal and [employer]rd [employer] Apps Indication:Nonsmoker Start:11-Jul-2021 Instruction Type:Patient Education Patient Instructions Indication:Nonsmoker Start:16-May-2021 Instruction Type:Provider Instructions for Treatment How to Access Health Informa tion Online using Patient Portal and [employer]rd [employer] Apps Indication:Nonsmoker Start:16-May-2021 Instruction Type:Patient Education [facility]; [facility] Work Phone: [email or web address]* Name Dates Details Patient Instructions Indication:Hyperlipidemia Start:25-Oct-2021 Instruction Type:Provider Instructions for Treatment How to Access Health Informa tion Online using Patient Portal and [employer]rd [employer] Apps Indication:Hyperlipidemia Start:25-Oct-2021 Instruction Type:Patient Education Patient Instructions Indication:Nonsmoker Start:11-Jul-2021 Instruction Type:Provider Instructions for Treatment How to Access Health Informa tion Online using Patient Portal and [employer] Apps Indication:Nonsmoker Start:11-Jul-2021 Instruction Type:Patient Education Patient Instructions Indication:Nonsmoker Start:16-May-2021 Instruction Type:Provider Instructions for Treatment How to Access Health Informa tion Online using Patient Portal and [employer]rd [employer] Apps Indication:Nonsmoker Start:16-May-2021 Instruction Type:Patient Education [facility]; [facility] Work Phone: instructions* Name Dates Details Patient Instructions Indication:Hyperlipidemia Start:25-Oct-2021 Instruction Type:Provider Instructions for Treatment How to Access Health Informa tion Online using Patient Portal and [employer]rd [employer] Apps Indication:Hyperlipidemia Start:25-Oct-2021 Instruction Type:Patient Education Patient Instructions Indication:Nonsmoker Start:11-Jul-2021 Instruction Type:Provider Instructions for Treatment How to Access Health Informa tion Online using Patient Portal and [employer]rd [employer] Apps Indication:Nonsmoker Start:11-Jul-2021 Instruction Type:Patient Education Patient Instructions Indication:Nonsmoker Start:16-May-2021 Instruction Type:Provider Instructions for Treatment How to Access Health Informa tion Online using Patient Portal and [employer] Apps Indication:Nonsmoker Start:16-May-2021 Instruction Type:Patient Education [facility]; [facility] Work Phone: instructions* Name Dates Details Patient Instructions Indication:Anxiety Start:24-Jan-2022 Instruction Type:Provider Instructions for Treatment How to Access Health Informa tion Online using Patient Portal and [employer]rd [employer] Apps Indication:Anxiety Start:24-Jan-2022 Instruction Type:Patient Education Patient Instructions Indication:Hyperlipidemia Start:25-Oct-2021 Instruction Type:Provider Instructions for Treatment How to Access Health Informa tion Online using Patient Portal and [employer]rd [employer] Apps Indication:Hyperlipidemia Start:25-Oct-2021 Instruction Type:Patient Education Patient Instructions Indication:Nonsmoker Start:11-Jul-2021 Instruction Type:Provider Instructions for Treatment How to Access Health Informa tion Online using Patient Portal and [employer] Apps Indication:Nonsmoker Start:11-Jul-2021 Instruction Type:Patient Education Patient Instructions Indication:Nonsmoker Start:16-May-2021 Instruction Type:Provider Instructions for Treatment How to Access Health Informa tion Online using Patient Portal and [employer] Apps Indication:Nonsmoker Start:16-May-2021 Instruction Type:Patient Education [facility]; [facility] Work Phone: instructions* Name Dates Details Patient Instructions Indication:Anxiety Start:24-Jan-2022 Instruction Type:Provider Instructions for Treatment How to Access Health Informa tion Online using Patient Portal and [employer]rd [employer] Apps Indication:Anxiety Start:24-Jan-2022 Instruction Type:Patient Education Patient Instructions Indication:Hyperlipidemia Start:25-Oct-2021 Instruction Type:Provider Instructions for Treatment How to Access Health Informa tion Online using Patient Portal and [employer] Apps Indication:Hyperlipidemia Start:25-Oct-2021 Instruction Type:Patient Education Patient Instructions Indication:Nonsmoker Start:11-Jul-2021 Instruction Type:Provider Instructions for Treatment How to Access Health Informa tion Online using Patient Portal and [employer] Apps Indication:Nonsmoker Start:11-Jul-2021 Instruction Type:Patient Education Patient Instructions Indication:Nonsmoker Start:16-May-2021 Instruction Type:Provider Instructions for Treatment How to Access Health Informa tion Online using Patient Portal and [employer] Apps Indication:Nonsmoker Start:16-May-2021 Instruction Type:Patient Education [facility]; [facility] Work Phone: instructions* Name Dates Details Patient Instructions Indication:Anxiety Start:24-Jan-2022 Instruction Type:Provider Instructions for Treatment How to Access Health Informa tion Online using Patient Portal and [employer] Apps Indication:Anxiety Start:24-Jan-2022 Instruction Type:Patient Education Patient Instructions Indication:Hyperlipidemia Start:25-Oct-2021 Instruction Type:Provider Instructions for Treatment How to Access Health Informa tion Online using Patient Portal and [employer] Apps Indication:Hyperlipidemia Start:25-Oct-2021 Instruction Type:Patient Education Patient Instructions Indication:Nonsmoker Start:11-Jul-2021 Instruction Type:Provider Instructions for Treatment How to Access Health Informa tion Online using Patient Portal and [employer] Apps Indication:Nonsmoker Start:11-Jul-2021 Instruction Type:Patient Education Patient Instructions Indication:Nonsmoker Start:16-May-2021 Instruction Type:Provider Instructions for Treatment How to Access Health Informa tion Online using Patient Portal and [employer] Apps Indication:Nonsmoker Start:16-May-2021 Instruction Type:Patient Education [facility]; [facility] Work Phone: instructions* Name Dates Details Patient Instructions Indication:Anxiety Start:24-Jan-2022 Instruction Type:Provider Instructions for Treatment How to Access Health Informa tion Online using Patient Portal and [employer] Apps Indication:Anxiety Start:24-Jan-2022 Instruction Type:Patient Education Patient Instructions Indication:Hyperlipidemia Start:25-Oct-2021 Instruction Type:Provider Instructions for Treatment How to Access Health Informa tion Online using Patient Portal and [employer] Apps Indication:Hyperlipidemia Start:25-Oct-2021 Instruction Type:Patient Education Patient Instructions Indication:Nonsmoker Start:11-Jul-2021 Instruction Type:Provider Instructions for Treatment How to Access Health Informa tion Online using Patient Portal and [employer] Apps Indication:Nonsmoker Start:11-Jul-2021 Instruction Type:Patient Education Patient Instructions Indication:Nonsmoker Start:16-May-2021 Instruction Type:Provider Instructions for Treatment How to Access Health Informa tion Online using Patient Portal and [employer] Apps Indication:Nonsmoker Start:16-May-2021 Instruction Type:Patient Education [facility]; [facility] Work Phone: instructions* Name Dates Details Patient Instructions Indication:Nonsmoker Start:23-Mar-2022 Instruction Type:Provider Instructions for Treatment How to Access Health Informa tion Online using Patient Portal and [employer] Apps Indication:Nonsmoker Start:23-Mar-2022 Instruction Type:Patient Education Patient Instructions Indication:Anxiety Start:24-Jan-2022 Instruction Type:Provider Instructions for Treatment How to Access Health Informa tion Online using Patient Portal and [employer] Apps Indication:Anxiety Start:24-Jan-2022 Instruction Type:Patient Education Patient Instructions Indication:Hyperlipidemia Start:25-Oct-2021 Instruction Type:Provider Instructions for Treatment How to Access Health Informa tion Online using Patient Portal and [employer] Apps Indication:Hyperlipidemia Start:25-Oct-2021 Instruction Type:Patient Education Patient Instructions Indication:Nonsmoker Start:11-Jul-2021 Instruction Type:Provider Instructions for Treatment How to Access Health Informa tion Online using Patient Portal and [employer] Apps Indication:Nonsmoker Start:11-Jul-2021 Instruction Type:Patient Education Patient Instructions Indication:Nonsmoker Start:16-May-2021 Instruction Type:Provider Instructions for Treatment How to Access Health Informa tion Online using Patient Portal and [employer]rd [employer] Apps Indication:Nonsmoker Start:16-May-2021 Instruction Type:Patient Education [facility]; [facility] Work Phone: instructions* Name Dates Details Patient Instructions Indication:Nonsmoker Start:23-Mar-2022 Instruction Type:Provider Instructions for Treatment How to Access Health Informa tion Online using Patient Portal and [employer] Apps Indication:Nonsmoker Start:23-Mar-2022 Instruction Type:Patient Education Patient Instructions Indication:Anxiety Start:24-Jan-2022 Instruction Type:Provider Instructions for Treatment How to Access Health Informa tion Online using Patient Portal and [employer]rd [employer] Apps Indication:Anxiety Start:24-Jan-2022 Instruction Type:Patient Education Patient Instructions Indication:Hyperlipidemia Start:25-Oct-2021 Instruction Type:Provider Instructions for Treatment How to Access Health Informa tion Online using Patient Portal and [employer]rd [employer] Apps Indication:Hyperlipidemia Start:25-Oct-2021 Instruction Type:Patient Education Patient Instructions Indication:Nonsmoker Start:11-Jul-2021 Instruction Type:Provider Instructions for Treatment How to Access Health Informa tion Online using Patient Portal and [employer]rd [employer] Apps Indication:Nonsmoker Start:11-Jul-2021 Instruction Type:Patient Education Patient Instructions Indication:Nonsmoker Start:16-May-2021 Instruction Type:Provider Instructions for Treatment How to Access Health Informa tion Online using Patient Portal and [employer]rd [employer] Apps Indication:Nonsmoker Start:16-May-2021 Instruction Type:Patient Education [facility]; [facility] Work Phone: Instructions* Name Dates Details Patient Instructions 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 Start:27-May-2022 Instruction Type:Provider Instructions for Treatment Patient Instructions Indication:Nonsmoker Start:23-Mar-2022 Instruction Type:Provider Instructions for Treatment How to Access Health Informa tion Online using Patient Portal and [employer]rd [employer] Apps Indication:Nonsmoker Start:23-Mar-2022 Instruction Type:Patient Education Patient Instructions Indication:Anxiety Start:24-Jan-2022 Instruction Type:Provider Instructions for Treatment How to Access Health Informa tion Online using Patient Portal and [employer]rd [employer] Apps Indication:Anxiety Start:24-Jan-2022 Instruction Type:Patient Education Patient Instructions Indication:Hyperlipidemia Start:25-Oct-2021 Instruction Type:Provider Instructions for Treatment How to Access Health Informa tion Online using Patient Portal and [employer]rd [employer] Apps Indication:Hyperlipidemia Start:25-Oct-2021 Instruction Type:Patient Education Patient Instructions Indication:Nonsmoker Start:11-Jul-2021 Instruction Type:Provider Instructions for Treatment How to Access Health Informa tion Online using Patient Portal and [employer]rd [employer] Apps Indication:Nonsmoker Start:11-Jul-2021 Instruction Type:Patient Education Patient Instructions Indication:Nonsmoker Start:16-May-2021 Instruction Type:Provider Instructions for Treatment How to Access Health Informa tion Online using Patient Portal and [employer]rd [employer] Apps Indication:Nonsmoker Start:16-May-2021 Instruction Type:Patient Education [facility]; [facility] Work Phone: Instructions* Name Dates Details Patient Instructions Indication:Nonsmoker Start:30-Jul-2022 Instruction Type:Provider Instructions for Treatment How to Access Health Informa tion Online using Patient Portal and [employer]rd 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 Start:27-May-2022 Instruction Type:Provider Instructions for Treatment Patient Instructions Indication:Nonsmoker Start:23-Mar-2022 Instruction Type:Provider Instructions for Treatment How to Access Health Informa tion Online using Patient Portal and [employer]rd [employer] Apps Indication:Nonsmoker Start:23-Mar-2022 Instruction Type:Patient Education Patient Instructions Indication:Anxiety Start:24-Jan-2022 Instruction Type:Provider Instructions for Treatment How to Access Health Informa tion Online using Patient Portal and [employer]rd [employer] Apps Indication:Anxiety Start:24-Jan-2022 Instruction Type:Patient Education Patient Instructions Indication:Hyperlipidemia Start:25-Oct-2021 Instruction Type:Provider Instructions for Treatment How to Access Health Informa tion Online using Patient Portal and [employer]rd [employer] Apps Indication:Hyperlipidemia Start:25-Oct-2021 Instruction Type:Patient Education Patient Instructions Indication:Nonsmoker Start:11-Jul-2021 Instruction Type:Provider Instructions for Treatment How to Access Health Informa tion Online using Patient Portal and [employer]rd [employer] Apps Indication:Nonsmoker Start:11-Jul-2021 Instruction Type:Patient Education Patient Instructions Indication:Nonsmoker Start:16-May-2021 Instruction Type:Provider Instructions for Treatment How to Access Health Informa tion Online using Patient Portal and [employer]rd [employer] Apps Indication:Nonsmoker Start:16-May-2021 Instruction Type:Patient Education [facility]; [facility] Work Phone: Instructions* Name Dates Details Patient Instructions Indication:Nonsmoker Start:30-Jul-2022 Instruction Type:Provider Instructions for Treatment How to Access Health Informa tion Online using Patient Portal and [employer]rd 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 Start:27-May-2022 Instruction Type:Provider Instructions for Treatment Patient Instructions Indication:Nonsmoker Start:23-Mar-2022 Instruction Type:Provider Instructions for Treatment How to Access Health Informa tion Online using Patient Portal and [employer]rd [employer] Apps Indication:Nonsmoker Start:23-Mar-2022 Instruction Type:Patient Education Patient Instructions Indication:Anxiety Start:24-Jan-2022 Instruction Type:Provider Instructions for Treatment How to Access Health Informa tion Online using Patient Portal and [employer] Apps Indication:Anxiety Start:24-Jan-2022 Instruction Type:Patient Education Patient Instructions Indication:Hyperlipidemia Start:25-Oct-2021 Instruction Type:Provider Instructions for Treatment How to Access Health Informa tion Online using Patient Portal and [employer]rd [employer] Apps Indication:Hyperlipidemia Start:25-Oct-2021 Instruction Type:Patient Education Patient Instructions Indication:Nonsmoker Start:11-Jul-2021 Instruction Type:Provider Instructions for Treatment How to Access Health Informa tion Online using Patient Portal and [employer]rd [employer] Apps Indication:Nonsmoker Start:11-Jul-2021 Instruction Type:Patient Education Patient Instructions Indication:Nonsmoker Start:16-May-2021 Instruction Type:Provider Instructions for Treatment How to Access Health Informa tion Online using Patient Portal and [employer]rd [employer] Apps Indication:Nonsmoker Start:16-May-2021 Instruction Type:Patient Education [facility]; [facility] Work Phone: Instructions* Name Dates Details Patient Instructions Indication:Nonsmoker Start:30-Jul-2022 Instruction Type:Provider Instructions for Treatment How to Access Health Informa tion Online using Patient Portal and [employer]rd 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 Start:27-May-2022 Instruction Type:Provider Instructions for Treatment Patient Instructions Indication:Nonsmoker Start:23-Mar-2022 Instruction Type:Provider Instructions for Treatment How to Access Health Informa tion Online using Patient Portal and [employer] Apps Indication:Nonsmoker Start:23-Mar-2022 Instruction Type:Patient Education Patient Instructions Indication:Anxiety Start:24-Jan-2022 Instruction Type:Provider Instructions for Treatment How to Access Health Informa tion Online using Patient Portal and [employer] Apps Indication:Anxiety Start:24-Jan-2022 Instruction Type:Patient Education Patient Instructions Indication:Hyperlipidemia Start:25-Oct-2021 Instruction Type:Provider Instructions for Treatment How to Access Health Informa tion Online using Patient Portal and [employer] Apps Indication:Hyperlipidemia Start:25-Oct-2021 Instruction Type:Patient Education Patient Instructions Indication:Nonsmoker Start:11-Jul-2021 Instruction Type:Provider Instructions for Treatment How to Access Health Informa tion Online using Patient Portal and [employer] Apps Indication:Nonsmoker Start:11-Jul-2021 Instruction Type:Patient Education Patient Instructions Indication:Nonsmoker Start:16-May-2021 Instruction Type:Provider Instructions for Treatment How to Access Health Informa tion Online using Patient Portal and [employer] Apps Indication:Nonsmoker Start:16-May-2021 Instruction Type:Patient Education [facility]; [facility] Work Phone: Instructions* Name Dates Details Patient Instructions Indication:Nonsmoker Start:30-Jul-2022 Instruction Type:Provider Instructions for Treatment How to Access Health Informa tion Online using Patient Portal and 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 Start:27-May-2022 Instruction Type:Provider Instructions for Treatment Patient Instructions Indication:Nonsmoker Start:23-Mar-2022 Instruction Type:Provider Instructions for Treatment How to Access Health Informa tion Online using Patient Portal and [employer] Apps Indication:Nonsmoker Start:23-Mar-2022 Instruction Type:Patient Education Patient Instructions Indication:Anxiety Start:24-Jan-2022 Instruction Type:Provider Instructions for Treatment How to Access Health Informa tion Online using Patient Portal and [employer] Apps Indication:Anxiety Start:24-Jan-2022 Instruction Type:Patient Education Patient Instructions Indication:Hyperlipidemia Start:25-Oct-2021 Instruction Type:Provider Instructions for Treatment How to Access Health Informa tion Online using Patient Portal and [employer] Indication:Hyperlipidemia Start:25-Oct-2021 Instruction Type:Patient Education Patient Instructions Indication:Nonsmoker Start:11-Jul-2021 Instruction Type:Provider Instructions for Treatment How to Access Health Informa tion Online using Patient Portal and [employer] Apps Indication:Nonsmoker Start:11-Jul-2021 Instruction Type:Patient Education Patient Instructions Indication:Nonsmoker Start:16-May-2021 Instruction Type:Provider Instructions for Treatment How to Access Health Informa tion Online using Patient Portal and [employer] Apps Indication:Nonsmoker Start:16-May-2021 Instruction Type:Patient Education [facility]; [facility] Work Phone: Instructions* Name Dates Details Patient Instructions Indication:Nonsmoker Start:30-Jul-2022 Instruction Type:Provider Instructions for Treatment How to Access Health Informa tion Online using Patient Portal and 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 Start:27-May-2022 Instruction Type:Provider Instructions for Treatment Patient Instructions Indication:Nonsmoker Start:23-Mar-2022 Instruction Type:Provider Instructions for Treatment How to Access Health Informa tion Online using Patient Portal and [employer] Apps Indication:Nonsmoker Start:23-Mar-2022 Instruction Type:Patient Education Patient Instructions Indication:Anxiety Start:24-Jan-2022 Instruction Type:Provider Instructions for Treatment How to Access Health Informa tion Online using Patient Portal and [employer] Apps Indication:Anxiety Start:24-Jan-2022 Instruction Type:Patient Education Patient Instructions Indication:Hyperlipidemia Start:25-Oct-2021 Instruction Type:Provider Instructions for Treatment How to Access Health Informa tion Online using Patient Portal and [employer] Apps Indication:Hyperlipidemia Start:25-Oct-2021 Instruction Type:Patient Education Patient Instructions Indication:Nonsmoker Start:11-Jul-2021 Instruction Type:Provider Instructions for Treatment How to Access Health Informa tion Online using Patient Portal and [employer] Apps Indication:Nonsmoker Start:11-Jul-2021 Instruction Type:Patient Education Patient Instructions Indication:Nonsmoker Start:16-May-2021 Instruction Type:Provider Instructions for Treatment How to Access Health Informa tion Online using Patient Portal and [employer] Apps Indication:Nonsmoker Start:16-May-2021 Instruction Type:Patient Education [facility]; [facility] Work Phone: Instructions* Name Dates Details Patient Instructions Indication:Hyperlipidemia Start:12-Nov-2022 Instruction Type:Provider Instructions for Treatment How to Access Health Informa tion Online using Patient Portal and [employer] Apps Indication:Hyperlipidemia Start:12-Nov-2022 Instruction Type:Patient Education Patient Instructions Indication:Nonsmoker Start:30-Jul-2022 Instruction Type:Provider Instructions for Treatment How to Access Health Informa tion Online using Patient Portal and 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 Start:27-May-2022 Instruction Type:Provider Instructions for Treatment Patient Instructions Indication:Nonsmoker Start:23-Mar-2022 Instruction Type:Provider Instructions for Treatment How to Access Health Informa tion Online using Patient Portal and [employer] Apps Indication:Nonsmoker Start:23-Mar-2022 Instruction Type:Patient Education Patient Instructions Indication:Anxiety Start:24-Jan-2022 Instruction Type:Provider Instructions for Treatment How to Access Health Informa tion Online using Patient Portal and [employer] Apps Indication:Anxiety Start:24-Jan-2022 Instruction Type:Patient Education Patient Instructions Indication:Hyperlipidemia Start:25-Oct-2021 Instruction Type:Provider Instructions for Treatment How to Access Health Informa tion Online using Patient Portal and [employer] Apps Indication:Hyperlipidemia Start:25-Oct-2021 Instruction Type:Patient Education Patient Instructions Indication:Nonsmoker Start:11-Jul-2021 Instruction Type:Provider Instructions for Treatment How to Access Health Informa tion Online using Patient Portal and [employer] Apps Indication:Nonsmoker Start:11-Jul-2021 Instruction Type:Patient Education Patient Instructions Indication:Nonsmoker Start:16-May-2021 Instruction Type:Provider Instructions for Treatment How to Access Health Informa tion Online using Patient Portal and [employer] Apps Indication:Nonsmoker Start:16-May-2021 Instruction Type:Patient Education [facility]; [facility] Work Phone: Instructions* Name Dates Details Patient Instructions Indication:Hyperlipidemia Start:12-Nov-2022 Instruction Type:Provider Instructions for Treatment How to Access Health Informa tion Online using Patient Portal and [employer] Apps Indication:Hyperlipidemia Start:12-Nov-2022 Instruction Type:Patient Education Patient Instructions Indication:Nonsmoker Start:30-Jul-2022 Instruction Type:Provider Instructions for Treatment How to Access Health Informa tion Online using Patient Portal and 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 Start:27-May-2022 Instruction Type:Provider Instructions for Treatment Patient Instructions Indication:Nonsmoker Start:23-Mar-2022 Instruction Type:Provider Instructions for Treatment How to Access Health Informa tion Online using Patient Portal and [employer] Apps Indication:Nonsmoker Start:23-Mar-2022 Instruction Type:Patient Education Patient Instructions Indication:Anxiety Start:24-Jan-2022 Instruction Type:Provider Instructions for Treatment How to Access Health Informa tion Online using Patient Portal and [employer] Apps Indication:Anxiety Start:24-Jan-2022 Instruction Type:Patient Education Patient Instructions Indication:Hyperlipidemia Start:25-Oct-2021 Instruction Type:Provider Instructions for Treatment How to Access Health Informa tion Online using Patient Portal and [employer] Apps Indication:Hyperlipidemia Start:25-Oct-2021 Instruction Type:Patient Education Patient Instructions Indication:Nonsmoker Start:11-Jul-2021 Instruction Type:Provider Instructions for Treatment How to Access Health Informa tion Online using Patient Portal and [employer] Apps Indication:Nonsmoker Start:11-Jul-2021 Instruction Type:Patient Education Patient Instructions Indication:Nonsmoker Start:16-May-2021 Instruction Type:Provider Instructions for Treatment How to Access Health Informa tion Online using Patient Portal and [employer] Apps Indication:Nonsmoker Start:16-May-2021 Instruction Type:Patient Education [facility]; [facility] Work Phone: Instructions* Name Dates Details Patient Instructions Indication:Hyperlipidemia Start:12-Nov-2022 Instruction Type:Provider Instructions for Treatment How to Access Health Informa tion Online using Patient Portal and [employer] Apps Indication:Hyperlipidemia Start:12-Nov-2022 Instruction Type:Patient Education Patient Instructions Indication:Nonsmoker Start:30-Jul-2022 Instruction Type:Provider Instructions for Treatment How to Access Health Informa tion Online using Patient Portal and 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 Start:27-May-2022 Instruction Type:Provider Instructions for Treatment Patient Instructions Indication:Nonsmoker Start:23-Mar-2022 Instruction Type:Provider Instructions for Treatment How to Access Health Informa tion Online using Patient Portal and [employer] Apps Indication:Nonsmoker Start:23-Mar-2022 Instruction Type:Patient Education Patient Instructions Indication:Anxiety Start:24-Jan-2022 Instruction Type:Provider Instructions for Treatment How to Access Health Informa tion Online using Patient Portal and [employer] Apps Indication:Anxiety Start:24-Jan-2022 Instruction Type:Patient Education Patient Instructions Indication:Hyperlipidemia Start:25-Oct-2021 Instruction Type:Provider Instructions for Treatment How to Access Health Informa tion Online using Patient Portal and [employer] Apps Indication:Hyperlipidemia Start:25-Oct-2021 Instruction Type:Patient Education Patient Instructions Indication:Nonsmoker Start:11-Jul-2021 Instruction Type:Provider Instructions for Treatment How to Access Health Informa tion Online using Patient Portal and [employer] Apps Indication:Nonsmoker Start:11-Jul-2021 Instruction Type:Patient Education Patient Instructions Indication:Nonsmoker Start:16-May-2021 Instruction Type:Provider Instructions for Treatment How to Access Health Informa tion Online using Patient Portal and [employer] Apps Indication:Nonsmoker Start:16-May-2021 Instruction Type:Patient Education [facility]; [facility] Work Phone: Instructions* Name Dates Details Patient Instructions Indication:Hypertension Start:25-Feb-2023 Instruction Type:Provider Instructions for Treatment How to Access Health Informa tion Online using Patient Portal and [employer] Apps Indication:Hypertension Start:25-Feb-2023 Instruction Type:Patient Education Patient Instructions Indication:Hyperlipidemia Start:12-Nov-2022 Instruction Type:Provider Instructions for Treatment How to Access Health Informa tion Online using Patient Portal and [employer] Apps Indication:Hyperlipidemia Start:12-Nov-2022 Instruction Type:Patient Education Patient Instructions Indication:Nonsmoker Start:30-Jul-2022 Instruction Type:Provider Instructions for Treatment How to Access Health Informa tion Online using Patient Portal and 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 Start:27-May-2022 Instruction Type:Provider Instructions for Treatment Patient Instructions Indication:Nonsmoker Start:23-Mar-2022 Instruction Type:Provider Instructions for Treatment How to Access Health Informa tion Online using Patient Portal and [employer] Apps Indication:Nonsmoker Start:23-Mar-2022 Instruction Type:Patient Education Patient Instructions Indication:Anxiety Start:24-Jan-2022 Instruction Type:Provider Instructions for Treatment How to Access Health Informa tion Online using Patient Portal and [employer] Apps Indication:Anxiety Start:24-Jan-2022 Instruction Type:Patient Education Patient Instructions Indication:Hyperlipidemia Start:25-Oct-2021 Instruction Type:Provider Instructions for Treatment How to Access Health Informa tion Online using Patient Portal and [employer] Apps Indication:Hyperlipidemia Start:25-Oct-2021 Instruction Type:Patient Education Patient Instructions Indication:Nonsmoker Start:11-Jul-2021 Instruction Type:Provider Instructions for Treatment How to Access Health Informa tion Online using Patient Portal and [employer] Apps Indication:Nonsmoker Start:11-Jul-2021 Instruction Type:Patient Education Patient Instructions Indication:Nonsmoker Start:16-May-2021 Instruction Type:Provider Instructions for Treatment How to Access Health Informa tion Online using Patient Portal and [employer] Apps Indication:Nonsmoker Start:16-May-2021 Instruction Type:Patient Education [facility]; [facility] Work Phone: Instructions* Name Dates Details Patient Instructions Indication:Hypertension Start:25-Feb-2023 Instruction Type:Provider Instructions for Treatment How to Access Health Informa tion Online using Patient Portal and [employer] Apps Indication:Hypertension Start:25-Feb-2023 Instruction Type:Patient Education Patient Instructions Indication:Hyperlipidemia Start:12-Nov-2022 Instruction Type:Provider Instructions for Treatment How to Access Health Informa tion Online using Patient Portal and [employer] Apps Indication:Hyperlipidemia Start:12-Nov-2022 Instruction Type:Patient Education Patient Instructions Indication:Nonsmoker Start:30-Jul-2022 Instruction Type:Provider Instructions for Treatment How to Access Health Informa tion Online using Patient Portal and 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 Start:27-May-2022 Instruction Type:Provider Instructions for Treatment Patient Instructions Indication:Nonsmoker Start:23-Mar-2022 Instruction Type:Provider Instructions for Treatment How to Access Health Informa tion Online using Patient Portal and [employer] Apps Indication:Nonsmoker Start:23-Mar-2022 Instruction Type:Patient Education Patient Instructions Indication:Anxiety Start:24-Jan-2022 Instruction Type:Provider Instructions for Treatment How to Access Health Informa tion Online using Patient Portal and [employer] Apps Indication:Anxiety Start:24-Jan-2022 Instruction Type:Patient Education Patient Instructions Indication:Hyperlipidemia Start:25-Oct-2021 Instruction Type:Provider Instructions for Treatment How to Access Health Informa tion Online using Patient Portal and [employer] Apps Indication:Hyperlipidemia Start:25-Oct-2021 Instruction Type:Patient Education Patient Instructions Indication:Nonsmoker Start:11-Jul-2021 Instruction Type:Provider Instructions for Treatment How to Access Health Informa tion Online using Patient Portal and [employer] Apps Indication:Nonsmoker Start:11-Jul-2021 Instruction Type:Patient Education Patient Instructions Indication:Nonsmoker Start:16-May-2021 Instruction Type:Provider Instructions for Treatment How to Access Health Informa tion Online using Patient Portal and [employer] Apps Indication:Nonsmoker Start:16-May-2021 Instruction Type:Patient Education [facility]; [facility] Work Phone: Instructions* Name Dates Details Patient Instructions Indication:Bilateral leg edema Start:03-Jun-2023 Instruction Type:Provider Instructions for Treatment How to Access Health Informa tion Online using Patient Portal and [employer] Apps Indication:Bilateral leg edema Start:03-Jun-2023 Instruction Type:Patient Education Patient Instructions Indication:Hypertension Start:25-Feb-2023 Instruction Type:Provider Instructions for Treatment How to Access Health Informa tion Online using Patient Portal and [employer] Apps Indication:Hypertension Start:25-Feb-2023 Instruction Type:Patient Education Patient Instructions Indication:Hyperlipidemia Start:12-Nov-2022 Instruction Type:Provider Instructions for Treatment How to Access Health Informa tion Online using Patient Portal and [employer] Apps Indication:Hyperlipidemia Start:12-Nov-2022 Instruction Type:Patient Education Patient Instructions Indication:Nonsmoker Start:30-Jul-2022 Instruction Type:Provider Instructions for Treatment How to Access Health Informa tion Online using Patient Portal and 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 Start:27-May-2022 Instruction Type:Provider Instructions for Treatment Patient Instructions Indication:Nonsmoker Start:23-Mar-2022 Instruction Type:Provider Instructions for Treatment How to Access Health Informa tion Online using Patient Portal and [employer] Apps Indication:Nonsmoker Start:23-Mar-2022 Instruction Type:Patient Education Patient Instructions Indication:Anxiety Start:24-Jan-2022 Instruction Type:Provider Instructions for Treatment How to Access Health Informa tion Online using Patient Portal and [employer] Apps Indication:Anxiety Start:24-Jan-2022 Instruction Type:Patient Education Patient Instructions Indication:Hyperlipidemia Start:25-Oct-2021 Instruction Type:Provider Instructions for Treatment How to Access Health Informa tion Online using Patient Portal and [employer] Apps Indication:Hyperlipidemia Start:25-Oct-2021 Instruction Type:Patient Education Patient Instructions Indication:Nonsmoker Start:11-Jul-2021 Instruction Type:Provider Instructions for Treatment How to Access Health Informa tion Online using Patient Portal and [employer] Apps Indication:Nonsmoker Start:11-Jul-2021 Instruction Type:Patient Education Patient Instructions Indication:Nonsmoker Start:16-May-2021 Instruction Type:Provider Instructions for Treatment How to Access Health Informa tion Online using Patient Portal and [employer] Apps Indication:Nonsmoker Start:16-May-2021 Instruction Type:Patient Education [facility]; [facility] Work Phone: Instructions* Name Dates Details Patient Instructions Indication:Bilateral leg edema Start:03-Jun-2023 Instruction Type:Provider Instructions for Treatment How to Access Health Informa tion Online using Patient Portal and [employer] Apps Indication:Bilateral leg edema Start:03-Jun-2023 Instruction Type:Patient Education Patient Instructions Indication:Hypertension Start:25-Feb-2023 Instruction Type:Provider Instructions for Treatment How to Access Health Informa tion Online using Patient Portal and [employer] Apps Indication:Hypertension Start:25-Feb-2023 Instruction Type:Patient Education Patient Instructions Indication:Hyperlipidemia Start:12-Nov-2022 Instruction Type:Provider Instructions for Treatment How to Access Health Informa tion Online using Patient Portal and [employer] Apps Indication:Hyperlipidemia Start:12-Nov-2022 Instruction Type:Patient Education Patient Instructions Indication:Nonsmoker Start:30-Jul-2022 Instruction Type:Provider Instructions for Treatment How to Access Health Informa tion Online using Patient Portal and 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 Start:27-May-2022 Instruction Type:Provider Instructions for Treatment Patient Instructions Indication:Nonsmoker Start:23-Mar-2022 Instruction Type:Provider Instructions for Treatment How to Access Health Informa tion Online using Patient Portal and [employer] Apps Indication:Nonsmoker Start:23-Mar-2022 Instruction Type:Patient Education Patient Instructions Indication:Anxiety Start:24-Jan-2022 Instruction Type:Provider Instructions for Treatment How to Access Health Informa tion Online using Patient Portal and [employer] Apps Indication:Anxiety Start:24-Jan-2022 Instruction Type:Patient Education Patient Instructions Indication:Hyperlipidemia Start:25-Oct-2021 Instruction Type:Provider Instructions for Treatment How to Access Health Informa tion Online using Patient Portal and [employer] Apps Indication:Hyperlipidemia Start:25-Oct-2021 Instruction Type:Patient Education Patient Instructions Indication:Nonsmoker Start:11-Jul-2021 Instruction Type:Provider Instructions for Treatment How to Access Health Informa tion Online using Patient Portal and [employer] Apps Indication:Nonsmoker Start:11-Jul-2021 Instruction Type:Patient Education Patient Instructions Indication:Nonsmoker Start:16-May-2021 Instruction Type:Provider Instructions for Treatment How to Access Health Informa tion Online using Patient Portal and [employer] Apps Indication:Nonsmoker Start:16-May-2021 Instruction Type:Patient Education [facility]; [facility] Work Phone: Instructions* Name Dates Details Patient Instructions Indication:Bilateral leg edema Start:03-Jun-2023 Instruction Type:Provider Instructions for Treatment How to Access Health Informa tion Online using Patient Portal and [employer] Apps Indication:Bilateral leg edema Start:03-Jun-2023 Instruction Type:Patient Education Patient Instructions Indication:Hypertension Start:25-Feb-2023 Instruction Type:Provider Instructions for Treatment How to Access Health Informa tion Online using Patient Portal and [employer] Apps Indication:Hypertension Start:25-Feb-2023 Instruction Type:Patient Education Patient Instructions Indication:Hyperlipidemia Start:12-Nov-2022 Instruction Type:Provider Instructions for Treatment How to Access Health Informa tion Online using Patient Portal and [employer] Apps Indication:Hyperlipidemia Start:12-Nov-2022 Instruction Type:Patient Education Patient Instructions Indication:Nonsmoker Start:30-Jul-2022 Instruction Type:Provider Instructions for Treatment How to Access Health Informa tion Online using Patient Portal and 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 Start:27-May-2022 Instruction Type:Provider Instructions for Treatment Patient Instructions Indication:Nonsmoker Start:23-Mar-2022 Instruction Type:Provider Instructions for Treatment How to Access Health Informa tion Online using Patient Portal and [employer] Apps Indication:Nonsmoker Start:23-Mar-2022 Instruction Type:Patient Education Patient Instructions Indication:Anxiety Start:24-Jan-2022 Instruction Type:Provider Instructions for Treatment How to Access Health Informa tion Online using Patient Portal and [employer] Apps Indication:Anxiety Start:24-Jan-2022 Instruction Type:Patient Education Patient Instructions Indication:Hyperlipidemia Start:25-Oct-2021 Instruction Type:Provider Instructions for Treatment How to Access Health Informa tion Online using Patient Portal and [employer] Apps Indication:Hyperlipidemia Start:25-Oct-2021 Instruction Type:Patient Education Patient Instructions Indication:Nonsmoker Start:11-Jul-2021 Instruction Type:Provider Instructions for Treatment How to Access Health Informa tion Online using Patient Portal and [employer] Apps Indication:Nonsmoker Start:11-Jul-2021 Instruction Type:Patient Education Patient Instructions Indication:Nonsmoker Start:16-May-2021 Instruction Type:Provider Instructions for Treatment How to Access Health Informa tion Online using Patient Portal and [employer] Apps Indication:Nonsmoker Start:16-May-2021 Instruction Type:Patient Education [facility]; [facility] Work Phone: Instructions* Name Dates Details Patient Instructions Indication:Bilateral leg edema Start:03-Jun-2023 Instruction Type:Provider Instructions for Treatment How to Access Health Informa tion Online using Patient Portal and [employer] Apps Indication:Bilateral leg edema Start:03-Jun-2023 Instruction Type:Patient Education Patient Instructions Indication:Hypertension Start:25-Feb-2023 Instruction Type:Provider Instructions for Treatment How to Access Health Informa tion Online using Patient Portal and [employer] Apps Indication:Hypertension Start:25-Feb-2023 Instruction Type:Patient Education Patient Instructions Indication:Hyperlipidemia Start:12-Nov-2022 Instruction Type:Provider Instructions for Treatment How to Access Health Informa tion Online using Patient Portal and [employer] Apps Indication:Hyperlipidemia Start:12-Nov-2022 Instruction Type:Patient Education Patient Instructions Indication:Nonsmoker Start:30-Jul-2022 Instruction Type:Provider Instructions for Treatment How to Access Health Informa tion Online using Patient Portal and 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 Start:27-May-2022 Instruction Type:Provider Instructions for Treatment Patient Instructions Indication:Nonsmoker Start:23-Mar-2022 Instruction Type:Provider Instructions for Treatment How to Access Health Informa tion Online using Patient Portal and [employer]rd [employer] Apps Indication:Nonsmoker Start:23-Mar-2022 Instruction Type:Patient Education Patient Instructions Indication:Anxiety Start:24-Jan-2022 Instruction Type:Provider Instructions for Treatment How to Access Health Informa tion Online using Patient Portal and [employer]rd [employer] Apps Indication:Anxiety Start:24-Jan-2022 Instruction Type:Patient Education Patient Instructions Indication:Hyperlipidemia Start:25-Oct-2021 Instruction Type:Provider Instructions for Treatment How to Access Health Informa tion Online using Patient Portal and [employer]rd [employer] Apps Indication:Hyperlipidemia Start:25-Oct-2021 Instruction Type:Patient Education Patient Instructions Indication:Nonsmoker Start:11-Jul-2021 Instruction Type:Provider Instructions for Treatment How to Access Health Informa tion Online using Patient Portal and 3rd [employer] Apps Indication:Nonsmoker Start:11-Jul-2021 Instruction Type:Patient Education Patient Instructions Indication:Nonsmoker Start:16-May-2021 Instruction Type:Provider Instructions for Treatment How to Access Health Informa tion Online using Patient Portal and 3rd [employer] Apps Indication:Nonsmoker Start:16-May-2021 Instruction Type:Patient Education [facility]; [facility] Work Phone: Instructions* Name Dates Details Patient Instructions Indication:Bilateral leg edema Start:03-Jun-2023 Instruction Type:Provider Instructions for Treatment How to Access Health Informa tion Online using Patient Portal and 3rd [employer] Apps Indication:Bilateral leg edema Start:03-Jun-2023 Instruction Type:Patient Education Patient Instructions Indication:Hypertension Start:25-Feb-2023 Instruction Type:Provider Instructions for Treatment How to Access Health Informa tion Online using Patient Portal and [employer]rd [employer] Apps Indication:Hypertension Start:25-Feb-2023 Instruction Type:Patient Education Patient Instructions Indication:Hyperlipidemia Start:12-Nov-2022 Instruction Type:Provider Instructions for Treatment How to Access Health Informa tion Online using Patient Portal and 3rd [employer] Apps Indication:Hyperlipidemia Start:12-Nov-2022 Instruction Type:Patient Education Patient Instructions Indication:Nonsmoker Start:30-Jul-2022 Instruction Type:Provider Instructions for Treatment How to Access Health Informa tion Online using Patient Portal and 3rd 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 Apps Indication:Anxiety Start:24-Jan-2022 Instruction Type:Patient Education Patient Instructions Indication:Hyperlipidemia Start:25-Oct-2021 Instruction Type:Provider Instructions for Treatment How to Access Health Informa tion Online using Patient Portal and [employer] Apps Indication:Hyperlipidemia Start:25-Oct-2021 Instruction Type:Patient Education Patient Instructions Indication:Nonsmoker Start:11-Jul-2021 Instruction Type:Provider Instructions for Treatment How to Access Health Informa tion Online using Patient Portal and [employer] Apps Indication:Nonsmoker Start:11-Jul-2021 Instruction Type:Patient Education Patient Instructions Indication:Nonsmoker Start:16-May-2021 Instruction Type:Provider Instructions for Treatment How to Access Health Informa tion Online using Patient Portal and [employer] Apps Indication:Nonsmoker Start:16-May-2021 Instruction Type:Patient Education [facility]; [facility] Work Phone: reason for referral (narrative)No reason for referral [facility] Work [facility]: Summary Purpose Family History No [...] Records Found Name Dates Details Immunization Registry [place] - Effective on 07/12/2021. Expiration date unspecified Effective:12-Jul-2021 Name Dates Details Immunization Registry [place] - Effective on 07/12/2021. Expiration date unspecified Effective:12-Jul-2021 Name Dates Details Immunization Registry [place] - Effective on 07/12/2021. Expiration date unspecified Effective:12-Jul-2021 Name Dates Details Living Will - Effective on . Expiration date unspecified. Scanned Document is available upon request. Effective:30-Oct-2021 Immunization Registry [place] - Effective on 07/12/2021. Expiration date unspecified Effective:12-Jul-2021 Name Dates Details Living Will - Effective on . Expiration date unspecified. Scanned Document is available upon request. Effective:30-Oct-2021 Immunization Registry [place] - Effective on 07/12/2021. Expiration date unspecified Effective:12-Jul-2021 Advance Directive Response Recorded Date/ Time Advance Directives Yes May 12:05pm Living Will Yes January 08, 2022 11 :20am Power of Cotton Jammer Yes January 08, 2022 11:20am Name Dates Details Living Will - Effective on . Expiration date unspecified. Scanned Document is available upon request. Effective:30-Oct-2021 Immunization Registry [place] - Effective on 07/12/2021. Expiration date unspecified Effective:12-Jul-2021 Name Dates Details Living Will - Effective on . Expiration date unspecified. Scanned Document is available upon request. Effective:30-Oct-2021 Immunization Registry [place] - Effective on 07/12/2021. Expiration date unspecified Effective:12-Jul-2021 Name Dates Details Living Will - Effective on . Expiration date unspecified. Scanned Document is available upon request. Effective:30-Oct-2021 Immunization Registry [place] - Effective on 07/12/2021. Expiration date unspecified Effective:12-Jul-2021 Name Dates Details Living Will - Effective on . Expiration date unspecified. Scanned Document is available upon request. Effective:30-Oct-2021 Immunization Registry [place] - Effective on 07/12/2021. Expiration date unspecified Effective:12-Jul-2021 Name Dates Details Living Will - Effective on . Expiration date unspecified. Scanned Document is available upon request. Effective:30-Oct-2021 Immunization Registry [place] - Effective on 07/12/2021. Expiration date unspecified Effective:12-Jul-2021 Name Dates Details Living Will - Effective on . Expiration date unspecified. Scanned Document is available upon request. Effective:30-Oct-2021 Immunization Registry [place] - Effective on 07/12/2021. Expiration date unspecified Effective:12-Jul-2021 Name Dates Details Living Will - Effective on . Expiration date unspecified. Scanned Document is available upon request. Effective:30-Oct-2021 Immunization Registry [place] - Effective on 07/12/2021. Expiration date unspecified Effective:12-Jul-2021 Documents on File Type Date Recorded Patient Start Up Specialist Expl anation Advance Directive(s) 12/16/2017 8:36 AM Advance Directive Response Recorded Date/ Time Name of Medical Power of Cotton Jammer January 08, 2022 11:20am Advance Directives Yes May 12:05pm Living Will Yes January 08, 2022 11 :20am Power of Cotton Jammer Yes January 08, 2022 11:20am Name Dates Details Living Will - Effective on . Expiration date unspecified. Scanned Document is available upon request. Effective:30-Oct-2021 Immunization Registry [place] - Effective on 07/12/2021. Expiration date unspecified Effective:12-Jul-2021 Name Dates Details Living Will - Effective on . Expiration date unspecified. Scanned Document is available upon request. Effective:30-Oct-2021 Immunization Registry [place] - Effective on 07/12/2021. Expiration date unspecified Effective:12-Jul-2021 Name Dates Details Living Will - Effective on . Expiration date unspecified. Scanned Document is available upon request. Effective:30-Oct-2021 Immunization Registry [place] - Effective on 07/12/2021. Expiration date unspecified Effective:12-Jul-2021 Name Dates Details Living Will - Effective on . Expiration date unspecified. Scanned Document is available upon request. Effective:30-Oct-2021 Immunization Registry [place] - Effective on 07/12/2021. Expiration date unspecified Effective:12-Jul-2021 Name Dates Details Living Will - Effective on . Expiration date unspecified. Scanned Document is available upon request. Effective:30-Oct-2021 Immunization Registry [place] - Effective on 07/12/2021. Expiration date unspecified Effective:12-Jul-2021 Name Dates Details Living Will - Effective on . Expiration date unspecified. Scanned Document is available upon request. Effective:30-Oct-2021 Immunization Registry [place] - Effective on 07/12/2021. Expiration date unspecified Effective:12-Jul-2021 Advance Directive Response Recorded Date/ Time Advance Directives on File Yes December 03, 2022 10:08am Name of Medical Power of Cotton Jammer Venecia Aburto- December 03, 2022 10:08am Advance Directives Yes December 03 10:08am Living Will Yes December 03, 2022 10:08am Power of Cotton Jammer Yes December 03 10:08am Name Dates Details Living Will - Effective on . Expiration date unspecified. Scanned Document is available upon request. Effective:30-Oct-2021 Immunization Registry [place] - Effective on 07/12/2021. Expiration date unspecified Effective:12-Jul-2021 Advance Directive Response Recorded Date/ Time Advance Directives on File Yes December 03, 2022 10:08am Name of Medical Power of Cotton Jammer Venecia Aburto- December 03, 2022 10:08am Name of Medical Power of Cotton Jammer IRMA ABURTO- February 12, 2023 8:23am Advance Directives Yes December 03, 023 10:08am Living Will Yes February 12, 2023 8 :23am Power of Cotton Jammer Yes February 12, 2023 8:23am Name Dates Details Living Will - Effective on . Expiration date unspecified. Scanned Document is available upon request. Effective:30-Oct-2021 Immunization Registry [place] - Effective on 07/12/2021. Expiration date unspecified Effective:12-Jul-2021 Name Dates Details Living Will - Effective on . Expiration date unspecified. Scanned Document is available upon request. Effective:30-Oct-2021 Immunization Registry [place] - Effective on 07/12/2021. Expiration date unspecified Effective:12-Jul-2021 Name Dates Details Living Will - Effective on . Expiration date unspecified. Scanned Document is available upon request. Effective:30-Oct-2021 Immunization Registry [place] - Effective on 07/12/2021. Expiration date unspecified Effective:12-Jul-2021 Advance Directive Response Recorded Date/ Time Name of Medical Power of Cotton Jammer IRMA NAIR February 12, 2023 8:23am Advance Directives Yes December 03, 2 023 10:08am Living Will Yes February 12, 2023 8 :23am Power of Cotton Jammer Yes February 12, 2023 8:23am Name Dates Details Living Will - Effective on . Expiration date unspecified. Scanned Document is available upon request. Effective:30-Oct-2021 Immunization Registry [place] - Effective on 07/12/2021. Expiration date unspecified Effective:3-Nov-2021 Name Dates Details Living Will - Effective on . Expiration date unspecified. Scanned Document is available upon request. Effective:30-Oct-2021 Immunization Registry [place] - Effective on 07/12/2021. Expiration date unspecified Effective:12-Jul-2021 Advance Directive Response Recorded Date/ Time Advance Directives Yes December 03, 9:08am Living Will Yes February 12, 2023 7 :23am Power of Cotton Jammer Yes February 12, 2023 7:23am Advance Directive Response Recorded Date/ Time Advance Directives Yes December 03, 023 10:08am Living Will Yes February 12, 2023 8 :23am Power of Cotton Jammer Yes February 12, 2023 8:23am Advance Directive Response Recorded Date/ Time Advance Directives Yes December 03 10:08am Advance Directive Response Recorded Date/ Time Living Will Yes February 12, 2023 8 :23am Do you have a Healthcare Power of Cotton Jammer? Yes February 12, 2023 8:23am Advance Directives Yes December 03 10:08am Advance Directive Response Recorded Date/ Time Living Will Yes February 12, 2023 8 :23am Do you have a Healthcare Power of Cotton Jammer? Yes February 12, 2023 8:23am Do you have a Healthcare Power of Cotton Jammer? Yes February 25, 2025 12:56pm Advance Directives Yes December 03 023 10:08am Chief Complaint and Reason for Visit Chief Complaint 1 Y FU COLON POLYPS Reason for Visit Essential (primary) hypertension Hyperlipidemia GERD (gastroesophageal reflux disease) Hx of colonic polyp Chief Complaint 2 WK FU ABNORMAL BREAST EXAM Reason for Visit Yates esophagus Gastritis GERD (gastroesophageal reflux disease) Hx of colonic polyp Chief Complaint 2 WK FU ABNORMAL BREAST EXAM WAS TO FAX ORDER 05/08/22 Reason for Visit Yates esophagus Gastritis GERD (gastroesophageal reflux disease) Hx [...] cardiac CT angiography Essential (primary) hypertension Hyperlipidemia Yates esophagus Chief Complaint HYPERLIPIDEMIA HYPERLIPIDEMIA ABN CALCUIM SCORE ABN CALCUIM SCORE ABN CALCUIM SCORE 1 YR FU 2 WK FU Reason for Visit Abnormal cardiac CT angiography Essential (primary) hypertension Hyperlipidemia Yates esophagus Yates esophagus Chief Complaint 2 WK FU Reason for Visit Yates esophagus Chief Complaint EDEMA LEFT BREAST LUMP BIRADS 4 LEFT BREST BIOPSY Reason for Visit Left breast mass Chief Complaint 1 y fu w MEDIA RELATIONS INTERN per MEDIA RELATIONS INTERN Reason for Visit Essential (primary) hypertension Hyperlipidemia Chief Complaint Admit Date Gastroesophageal reflux disease (GERD) J anuary 2024 1:53pm Gastroesophageal reflux disease (GERD) A pril 2024 8:26am Reason for Visit Admit Date Yates esophagus October 01, 2024 1 :53pm Gastroesophageal reflux disease October 01, 2024 1:53pm Yates esophagus December 17, 2024 8:2 6am Gastroesophageal reflux disease December 172024 8:26am Chief Complaint Admit Date Gastroesophageal reflux disease (GERD) J anuary 2024 1:53pm Gastroesophageal reflux disease (GERD) A pril 2024 8:26am 1 Y FU January 26, 2025 12:54 pm Chief Complaint Admit Date Gastroesophageal reflux disease (GERD) A pril 2024 8:26am 1 Y FU January 26, 2025 12:54 pm Reason for Visit Admit Date Yates esophagus December 17, 2024 8:2 6am Gastroesophageal reflux disease December 172024 8:26am Essential (primary) hypertension January 12:54pm Hyperlipidemia January 26, 2025 12:54 pm Yates esophagus March 02, 2025 5:38 am Additional Source Comments (unrecognized sect ion and content) No Status Records FoundNo Status Records FoundNo Status Records FoundNo Status Records FoundNo Status Records Found INFORMATION SOURCE (unrecogn ized section and content) DATE CREATED AUTHOR 03/05/2018 [facility] DATE CREATED AUTHOR AUTHOR'S ORGANIZ ATION 03/05/2018 [facility] DATE CREATED AUTHOR AUTHOR'S ORGANIZ ATION 04/20/2022 [facility] DATE CREATED AUTHOR AUTHOR'S ORGANIZ ATION 11/14/2022 [facility] DATE CREATED AUTHOR AUTHOR'S [facility]IZ ATION [facility] (unrecognized section and content) [...] or prosecute any alcohol or drug abuse patient.[facility] the event this information is protected by the Federal Confidentiality of Alcohol and Drug Abuse Patient Records regulations: The Federal rules restrict any use of the information to criminally investigate or prosecute any alcohol or drug abuse patient.[facility] Reason for Visit (unrecogniz ed section and content) Reason Comments Consult right breast Reason Comments Procedure Right Breast Biopsy Care Teams (unrecognized sec tion and content) Data Processing Systems Consultant Relationship Specialty Start Date End Date Francheska Alonzo DO [address] [facility] [address] [place], [place] [address] PCP - General Internal Medicine 03/27/22 Data Processing Systems Consultant Relationship Specialty Start Date End Date Francheska Alonzo DO [address] [facility] [address] [place], [place] [id number] PCP - General Internal Medicine 03/27/22 Team Status: Active Member Role Status Dates Spike ALEMAN Family Provider Active Dr. Francheska Alonzo DO Primary Care Provider Active Team Status: Inactive Member Role Status Dates Dr. Francheska Alonzo , DO Primary Care Provider, Referring P rovider Active Dr. Petros Valdez MD Attending Provider Active Team Status: Active Member Role Status Dates Dr. Francheska Alonzo , DO Primary Care Provider Active Dr. Antonio [...] Dates Dr. Francheska Alonzo DO Primary Care Provide r, Attending Provider, [...] Provider, Referring P rovider Active Alicia Garrido NEWSPAPER MANAGING EDITOR, NEWSPAPER MANAGING EDITOR-C Attending Provider Active Team Status: Active Member Role Status Dates Dr. Francheska Alonzo DO Primary Care Provider, Referring P rovider Active Dr. David Parra , DO Attending Provider, Other Prov ider Active Team Status: Inactive Member Role Status Dates Dr. Francheska Alonzo DO Primary Care Provider, Referring P rovider Active Dr. David Parra , DO Attending Provider Active Team [...] January 26, 2025 End: January 26, 2025 Team Status: Inactive Member Role Status Dates Dr. Francheska Alonzo DO Primary Care Provider Active Start: March 02, 2025 End: March 02, 2025 Dr. Francheska Alonzo DO Referring Provider Active St art: March 02, 2025 End: March 02, 2025 Dr. David Friend , DO Attending Provider Active Start: March 02, 2025 End: March 02, 2025 Team Status: Active Member Role Status Dates Dr. Francheska Alonzo DO Primary Care Provider Active Start: March 02, 2025 Dr. Francheska Alonzo DO Referring Provider Active St art: March 02, 2025 Dr. David Parra DO Attending Provider Active Start: March 02, 2025 Dr. David Parra , DO Other Provider Active St art: March 02, 2025 FOR RECORDS PERTAINING TO PATIENTS WHO [...] BE BASED ON THE PRIMARY CLINICAL RECORDS. [facility] [employer] provides no warranty or guarantee of the accuracy or completeness of information in this document.
--- NOTE | 2025-03-08 06:03 | ECHOD_ITS ---
Reason For Study Reason For Study: HTN Procedure This was a 2D Doppler, Color Flow transthoracic echocardiogram. Exam performed in department. Left Ventricle Normal LV size. Mild concentric left ventricular hypertrophy. The left ventricular ejection fraction is 70 %. Stage 1 diastolic dysfunction. No regional wall motion abnormalities noted. Right Ventricle Normal RV size. Normal systolic function. Atria Normal left atrium. Normal right atrium. Mitral Valve Normal mitral valve. Tricuspid Valve Normal tricuspid valve. Mild (1+) tricuspid valve insufficiency. Pulmonary artery systolic pressure is 28 mmHg. Aortic Valve Trisinus/trileaflet aortic valve. Mild focal aortic valve calcification. Pulmonic Valve Normal pulmonic valve. Great Vessels Normal aortic root. The pulmonary artery is normal size. Inferior vena cava collapse with respiration. Pericardium/Pleural No pericardial effusion. MMode/2D Measurements & Calculations LVIDd: 4.6 cm IVSd: 1.2 cm Ao root diam: 4.1 cm LVIDs: 3.1 cm LVPWd: 1.5 cm RVDd: 3.7 cm FS: 33.4 % LAV(MOD-bp): 66.5 ml LVAd ap4: 31.6 cm2 SV(MOD-sp4): 71.7 ml LAV(MOD-bp) Indexed: 34.0 ml/m2 LVLd ap4: 7.8 cm SI(MOD-sp4): 36.6 ml/m2 LAV(MOD-sp2): 62.5 ml EDV(MOD-sp4): 105.0 ml LAV(MOD-sp4): 64.3 ml EDV(sp4-el): 108.5 ml LVAs ap4: 15.0 cm2 LVLs ap4: 5.6 cm ESV(MOD-sp4): 33.2 ml ESV(sp4-el): 33.9 ml EF(MOD-sp4): 68.3 % EF(sp4-el): 68.8 % SV(sp4-el): 74.6 ml LA A4 area: 20.1 cm2 LA dimension(2D): 4.5 cm RA A4 area: 14.1 cm2 Time Measurements MV dec time: 0.36 sec Doppler Measurements & Calculations MV E max chandler: 59.5 cm/sec Lat Peak E' Chandler: 7.2 cm/sec Med Peak E' Chandler: 4.3 cm/sec MV A max chandler: 92.3 cm/sec E/E' lat: 8.3 E/E' med: 13.8 MV E/A: 0.65 MV V2 max: 99.0 cm/sec Ao V2 max: 113.5 cm/sec MV max P.9 mmHg MV dec slope: 163.7 cm/sec2 Ao max P.2 mmHg MV V2 mean: 53.6 cm/sec Ao V2 mean: 75.7 cm/sec MV mean P.4 mmHg Ao mean P.7 mmHg MV V2 VTI: 29.5 cm Ao V2 VTI: 24.6 cm AV (velocity ratio): 0.93 LV V1 max: 101.7 cm/sec PA V2 max: 71.6 cm/sec TR max chandler: 243.7 cm/sec LV V1 max P.1 mmHg PA V2 mean: 50.3 cm/sec TR max P.8 mmHg LV V1 mean P.4 mmHg LV V1 mean: 73.1 cm/sec LV V1 VTI: 22.8 cm ECHO/Echo Complete Interpretation Summary Normal LV size. Mild concentric left ventricular hypertrophy. The left ventricular ejection fraction is 70 %. Mild focal aortic valve calcification. Stage 1 diastolic dysfunction. Pulmonary artery systolic pressure is 28 mmHg. Ordering Physician: Petros Valdez Referring Physician: Petros Valdez Performed By: Mariel Rodriguez and Student
--- NOTE | 2025-03-09 08:03 | STRESSREP_ITS ---
Stress Test Report Exercise myocardial perfusion stress test. 79-year-old man with a history of coronary disease Stress protocol: Resting EKG demonstrates sinus bradycardia with a rate of 55 bpm resting blood pressure is 142/90 mmHg. The patient exercised according to the regular [place] protocol for a total duration of 8 minutes attaining a maximum heart rate of 155 bpm which was 109% of maximum predicted heart rate; the maximum workload was 10.1 metabolic equivalents. At rest there were no ST or T wave changes noted to suggest ischemia and at peak exercise upsloping ST changes only were noted which did not meet the criteria for ischemia. No clinical angina was noted the test was terminated due to the target heart rate being achieved/fatigue. The peak blood pressure was 182/80 mmHg. Rate-pressure product was 19,000. Myocardial perfusion protocol. 12 mCi of technetium 99m sestamibi was injected at rest. The patient exercised according to regular [place] protocol for total duration of 8 minutes and at peak exercise 36.6 mCi of technetium 99m sestamibi was injected stress images were obtained stress and rest images were reconstructed in comparing the short axis vertical long and horizontal long axis. Gated images were also obtained. Perfusion SPECT analysis: Review of the stress images demonstrate normal uptake of tracer noted in all ar eas of the myocardium. The resting images similarly demonstrate normal uptake of tracer noted in all areas of the myocardium. No areas of reversibility are noted to suggest ischemia no previous infarct was noted. Gated SPECT analysis: The gated ejection fraction is 65%. Conclusion: Normal exercise myocardial perfusion stress test at a high workload Preserved ejection fraction.
== END | disposition home or self-care (01) ==
PROVIDERS: PCP Internal Medicine; Referring Provider Internal Medicine Cardiovascular Disease; Visit Provider Internal Medicine Cardiovascular Disease
DX: I25.10 Atherosclerotic heart disease of native coronary artery without angina pectoris (principal); I10 Essential (primary) hypertension
CPT/HCPCS: 78452; 93017; 93306; A9500; A4216

== ENCOUNTER → 2025-03-31 | Outpatient (CLI) | payer MEDICARE, SELFPAY ==
--- OUTSIDE RECORDS SUMMARY | 2025-03-31 06:05 | XMS RPT_ITS | CCD ---
Author Organization [facility] Care Team Providers Care Advertising Writer Name Role Phone Steve BEAR, Khadijah Clark Unavailable [employer] Unavailable Mal Joseph MD Unavailable ADRIANNA MCDUFFIE Unavailable Unavailable ADRIANNA MCDUFFIE Unavailable Unavailable NO REFERRING DR Unavailable Unavailable ADRIANNA MCDUFFIE Unavailable Unavailable ADRIANNA MCDUFFIE Unavailable Unavailable Fast DO, Francheska A Unavailable [facility], Naida Unavailable Unavailable Slarb AUTOMOTIVE UPHOLSTERER, Yoko Unavailable Unavailable Unavailable Unavailable Friend, Dr. Hernandez Unavailable Dr. Spike Mullen Referring Provider Dr. Petros Valdez Attending Provider Clinton, Dr. Pritchard Primary Care Provider [phone] Dr. Francheska Alonzo Referring Provider [phone] Radhika LAB REP, LAB REP-C Alicia Delatorre Attending Provider FriendDr. Hernandez Attending Provider Friend, Dr. Hernandez Other Provider Fast DO, Francheska A Unavailable Mal Elizabeth MD Unavailable Aiken PATIENT CARE NURSING ASSISTANT, Kayela Unavailable Unavailable Fast DO, Francheska A [...] Sd Kirk Attending Provider [phone] Radhika LAB REP, LAB REP-C Alicia Delatorre Attending Provider [phone] FriendDr. Hernandez Attending Provider [phone] Dr. David Parra Other Provider [phone] Clinton, Dr. Pritchard Primary Care Provider [phone] Courtney, Dr. Morrell Attending Provider [phone] Fast, Dr. Pritchard Referring Provider [phone] Clinton, Dr. Pritchard Primary Care Provider [phone] Fast, Dr. Pritchard Referring Provider [phone] Radhika LAB REP, LAB REP-C Alicia Delatorre Attending Provider [phone] ARPAN Kelly LPN Unavailable Unavailable Fast, Dr. Pritchard Primary Care Provider [phone] Fast, Dr. Pritchard Referring Provider [phone] Dr. Michele Hodgson Attending Provider Dr. Durga Pierson Attending Provider Clinton, Dr. Pritchard Primary Care Provider [phone] Fast, Dr. Pritchard Referring Provider [phone] Courtney, Dr. Morrell Attending Provider Fast DO, Dr. Pritchard Primary Care Provider Fast DO, Dr. Pritchard Referring Provider [phone] Friend DO, Dr. Hernandez Attending Provider Fast DO, Dr. Pritchard Attending Provider [phone] Courtney MORALES, Dr. Morrell Attending Provider [phone] Fast DO, Dr. Pritchard Primary Care Provider [phone] Fast DO, Dr. Pritchard Referring Provider [phone] Friend DO, Dr. Hernandez Attending Provider Friend DO, Dr. Hernandez Other Provider [phone] Courtney MORALES, Dr. Morrell Referring Provider [phone] Courtney MORALES, Dr. Morrell Other Provider [phone] Mal Aleman Attending Unavailable Fast, Francheska Primary [...] Care Unavailable Fast, Francheska Referring Unavailable Courtney, Holland Attending Unavailable Courtney, Petros Attending Unavailable Fast, Francheska Primary Care Unavailable Fast, Francheska Primary Care Unavailable Courtney, Holland Consulting Unavailable Courtney, Petros Referring Unavailable Courtney, Petros Attending Unavailable Fast, Francheska Primary Care Unavailable Friend, David Attending Unavailable Friend, David Consulting Unavailable Fast, Francheska Referring Unavailable Friend, David Attending Unavailable Fast, Francheska Primary Care Unavailable Fast, Francheska Referring Unavailable Fast, Francheska Referring Unavailable Fast, Francheska Attending Unavailable Fast, Francheska Primary Care Unavailable Fast, Francheska Referring Unavailable Fast, Francheska Attending Unavailable Fast, Francheska Primary Care Unavailable Fast, Francheska Primary Care Unavailable Petros Valdez Referring Unavailable Petros Valdez Attending Unavailable Allergies Allergy Classification Reported Allergen(s) Allergy [...] One tablet by mouth daily ASCORBIC ACID [id number] Yeni Gray RN Start: 08-16-2011 take 1 tablet by darshan th twice daily Ascorbic Acid (VITAMIN C) 500 mg ORAL CpER Take 1 tablet by mouth twice daily. 0 08/16/2011 Active Comment on above: Take 1 tablet by darshan th twice daily. aspirin 81 mg oral tablet (14 sources) Platelet Aggregation Inhibitor, Nonsteroidal Anti-inflammatory Drug [...] sodium bicarbonate 1916 mg effervescent oral tablet (12 sources) Platelet Aggregation Inhibitor, Nonsteroidal Anti-inflammatory Drug, Calculi Dissolution Agent, Anti-coagulant Start: 11-30-2022 Aspirin-Sod Bicarb-Citric Acid (Maryjane-Morrow Original) 325-1,916-1,000 mg tablet, effervescent Active 1 {tbl} PO NEEDED as needed for BLOATING November 30, 2022 12:00am Start: 11-30-2022 take 325-1916 tablet s by mouth once daily Aspirin-Sod Bicarb-Citric Acid (Maryjane-Morrow Original) 325-1,916-1,000 mg tablet, effervescent Active 1 TABLET PO DAILY November 30, 2022 12:00am ubidecarenone 30 mg oral cap january (20 sources) Start: 05-21-2016 Coenzyme Q10 3 0 MG capsule Active 30 mg PO DAILY May 21, 2016 12:00am Start: 02-19-2012 take 1 capsule by [facility] once daily Coenzyme Q10 (COQ-10) 100 mg Cap Take 1 capsule by mouth once daily. 0 02/19/2012 Active Start: 12-12-2010 End: 08-28-2011 take 1 tablet by mouth once daily COENZYME Q10 60 MG TABS One tablet by mouth daily COENZYME Q10 [id number] Yeni Gray RN Comment on above: Take 1 capsule by [facility] once daily. Dexlansoprazole (Dexilant) 60 mg Capsule,Biphase Delayed Releas (15 sources) Start: 01-09-20 take 1 capsule by mouth once daily Dexlansoprazole (Dexilant) 60 mg Capsule,Biphase Delayed Releas Active 60 MG PO DAILY January 08, 2022 11:25am Start: 01-08-2022 End: 10-01-2024 take 1 capsule by mouth once daily Dexlansoprazole (Dexilant) 60 mg Capsule,Biphase Delayed Releas Discontinued 60 mg PO DAILY January 08, 2022 12:00am October 01, 2024 3:05pm Start: 01-08-2022 take 1 capsule by [facility] once daily Dexlansoprazole (Dexilant) 60 mg Capsule,Biphase Delayed Releas Active 60 MG PO DAILY January 07, 2022 11:00pm Start: 01-08-2022 take 1 capsule by [facility] once daily Dexlansoprazole (Dexilant) 60 mg Capsule,Biphase Delayed Releas Active 60 MG PO DAILY January 08, 2022 12:00am Iron (15 sources) Start: 01-08-2022 take 45 mg by [...] Combination No.4 (Probiotic) 3 billion cell Capsule (15 sources) Start: 01-08-2022 take 3 capsules by [...] 06, 2020 2:29pm Multivitamin 1 EACH tablet (5 sources) Start: 05-21-2016 Multivitamin 1 EACH tablet Active 1 NMA PO DAILY May 21, 2016 12:00am Multivitamin preparation (10 sources) Start: 05-21-2016 Multivitamin A ctive 1 EACH PO DAILY May 21, 2016 2:11pm Start: 05-21-2016 Multivitamin A ctive 1 EACH PO DAILY May 20, 2016 11:00pm Start: 05-21-2016 Multivitamin A ctive 1 EACH PO DAILY May 21, 2016 12:00am Gibson 3-Tdd-Edf-Fish Oil (10 sources) Start: 04-22-2017 take 1 tablet by mouth once daily Gibson 8-Spw-Yiq-Fish Oil Active 1 TABLET PO DAILY April 22, 2017 10:36am Start: 04-22-2017 End: 10-16-2022 take 1 tablet by mouth once daily Gibson 0-Air-Bfw-Fish Oil Discontinued 1 TABLET PO DAILY April 21, 2017 11:00pm October 16, 2022 2:12pm Start: 04-22-2017 End: 10-16-2022 take 1 tablet by mouth once daily Gibson 2-Kgs-Qva-Fish Oil Discontinued 1 TABLET PO DAILY April 22, 2017 12:00am October 16, 2022 3:12pm Start: 04-22-2017 take 1 tablet by darshan once daily Gibson 1-Qzo-Htc-Fish Oil Active 1 TABLET PO DAILY April 22, 2017 12:00am omeprazole 40 mg delayed release oral capsule (20 sources) Proton Pump Inhibitor Start: 10-16-2024 take 1 capsule by mouth once daily Omeprazole 40 mg capsule,delayed release(DR/EC) Active 40 mg PO daily 90 2 October 16, 2024 1:00am Start: 10-01-2024 End: 10-16-2024 take 1 capsule by mouth twice daily Omeprazole 20 mg capsule,delayed release(DR/EC) Discontinued 20 mg PO TWICE A DAY 90.0 3 October 01, 2024 1:00am October 16, 2024 [...] TABS One tablet by mouth daily CYANOCOBALAMIN [id number] Sonya Ozuna Vitamin b12 Acti ve Vonoprazan (Voquezna) 10 mg tablet (5 sources) Start: 10-01-2024 take 1 tablet by [...] : 07-Mar-2022 Active Comments: verbally called to - adrianek 03/07/22 Start: 03-02-2022 Butalbital-APA P-Caffeine 50-325-40 MG Oral Tablet 1 (one) Tablet 1 tab prn migraine for 0 days Quantity: 30 {Tablet} Refills: 3 Ordered: 02-Mar-2022 Fast DO, Francheska A Fast DO, Francheska A Start : 02-Mar-2022 Active Comments: verbally called to - adrianek 07/12 Start: 07-12-2021 Butalbital-APA P-Caffeine 50-325-40 MG Oral Tablet 1 (one) Tablet 1 tab prn migraine for 0 days Quantity: 30 {Tablet} Refills: 3 Ordered: 25-Oct-2021 Fast DO, Francehska A Fast DO, Francheska A Start : 12-Jul-2021 Active Comments: verbally called to RA Shi forrestk 07/12 Comment on above: verbally called to R A - brantnchak 07/12 verbally called to R A - cmanchak 03/07/22 verbally called to R A - cmanchak 08/01/22 acetaminophen 325 mg / oxyCODONE hydrochloride 5 mg oral tablet (15 sources) Opioid Agonist Start: 04-23-2017 End: 10-03-2017 [...] 2017 4:42pm amLODIPine 2.5 mg oral tablet (15 sources) Dihydropyridine Calcium Channel Bianca Start: 10-21-2018 End: 12-19-2018 take 1 tablet by mouth once daily Amlodipine 2.5 mg tablet Discontinued 2.5 mg PO DAILY 90 October 21, 2018 1:00am December 19, 2018 11:33am AMLODIPINE BESY-BENAZEPRIL HCL (10 sources) Dihydropyridine Calcium Channel Bianca, Angiotensin Converting Enzyme Inhibitor Start: 12-12-2010 take 1 tablet by mouth once daily LOTREL 5-10 MG CAPS One tablet by mouth daily AMLODIPINE BESY-BENAZEPRIL HCL [id number] Sonya Ozuna Start: 12-12-2010 End: 08-28-2011 take 1 tablet by mouth once daily LOTREL 5-10 MG CAPS One tablet by mouth daily AMLODIPINE BESY-BENAZEPRIL HCL [id number] Yeni Gray RN amoxicillin 500 mg / clavulanate 125 mg oral tablet (15 sources) Penicillin-class Antibacterial Start: 01-10-2022 End: 10-16-2022 Amoxicillin-Pot Clavulanate (Augmentin) 500-125 mg tablet Discontinued 1 {tbl} PO TWICE A DAY January 10, 2022 12:00am October 16, 2022 3:11pm BUTALBITAL-ASPIRIN- CAFFEINE (10 sources) Barbiturate, Nonsteroidal Anti-inflammatory Drug, Central Nervous System Stimulant, Methylxanthine Start: 09-05-2012 FIORINAL 50-325-40 M G CAPS 2-3 X a week for headaches, as needed PRFHLYGKNC-HXMNEIL-ORN FEINE [id number] Petros Valdez MD Start: 12-12-2010 FIORINAL 50-32 5-40 MG CAPS 2-3 X a week for headaches, as needed PXWDXBJWMJ-HTUEPEH-QTISIAAM [id number] Sonya Costelloward aspirin 325 mg / butalbital 50 mg / caffeine 40 mg oral capsule (15 sources) Platelet Aggregation Inhibitor, Barbiturate, Nonsteroidal Anti-inflammatory Drug, Central Nervous System Stimulant, Methylxanthine Start: 05-21-2016 End: 11-07-2021 Jvucvbqvnk-Wapzbsp-Rhhddasp 1 EACH capsule Discontinued 1 {tbl} PO DAILY NEEDED as needed for Headache May 21, 2016 12:00am November 07, 2021 12:32pm Start: 05-21-2016 End: 11-07-2021 take 1 tablet by mouth once daily as needed Pepfgbbdql-Uneaaay-Zdcayhgr Discontinued 1 TABLET PO DAILY NEEDED May 21, 2016 12:00am November 07, 2021 12:32pm atorvastatin 10 mg oral tablet (20 sources) HMG-CoA Reductase Inhibitor Start: 10-03-2017 End: 10-06-2020 take 1 tablet by mouth once daily Atorvastatin 10 mg tablet Discontinued 10 mg PO daily 90 3 June 10, 2020 2:30pm October 06, 2020 2:28pm Start: 07-06-2015 End: 10-03-2017 take 1 tablet by mouth once daily Atorvastatin 20 MG tablet Discontinued 20 mg PO DAILY May 21, 2016 12:00am October 03, 2017 4:41pm Start: 07-06-2015 take 0.5 tablet by [facility] once daily in the evening ATORVASTATIN CALCIUM 40 MG TABS 1/2 tablet by mouth every evening (pt cut self down 3 mos ago) ATORVASTATIN CALCIUM [id number] Petros Valdez MD Start: 07-06-2015 ATORVASTATIN C ALCIUM 40 MG TABS One tablet by mouth ever evening ATORVASTATIN CALCIUM [id number] Petros Valdez MD Comment on above: Take 20 mg by mouth once daily. cholecalciferol 0.125 mg oral tablet (2 sources) Vitamin D Start: 2 take 1 tablet by mouth once daily Cholecalciferol, Vitamin D3, 5,000 unit Tab Take 1 tablet by mouth once daily. 0 02/19/2012 Active Comment on above: Take 1 tablet by [facility] once daily. dexlansoprazole 60 mg delayed release oral capsule (20 sources) Proton Pump Inhibitor Start: 3 take 1 capsule by mouth once daily Dexilant 60 mg oral capsule,delayed release,biphasic 1 (one) Capsule daily for 90 days Quantity: 90 {Capsule} Refills: 3 Ordered: 02-Jul-2023 Fast DO, Francheska A Fast DO, Francheska A Start : 02-Jul-2023 Active Start: 12-07-2022 take 1 capsule by [facility] once daily Dexilant 60 mg oral capsule,delayed release,biphasic 1 (one) Capsule daily for 0 days Quantity: 30 {Capsule} Refills: 6 Ordered: 07-Dec-2022 Fast DO, Francheska A Fast DO, Francheska A Start : 07-Dec-2022 Active Start: 11-10-2021 take 1 capsule by [facility] once daily Dexilant 60 MG Oral Capsule Delayed Release 1 (one) Capsule daily for 0 days Quantity: 30 {Capsule} Refills: 6 Ordered: 4-Mar-2022 Fast DO, Francheska A Fast DO, Francheska [...] Start: 05-16-2021 take 1 capsule by mo [facility] once daily Dexilant 60 MG Oral Capsule [...] 1 tablet by darshan th once daily DEXILANT 30 MG CPDR One tablet by mouth daily DEXLANSOPRAZOLE [id number] Sonya Ozuna diazePAM 5 mg oral tablet (20 sources) Benzodiazepine Start: 10-16-2022 End: 08-05-2023 Diazepam 5 mg tablet Discontinued 5 mg PO NEEDED as needed for Stomach Upset October 16, 2022 1:00am August 05, 2023 4:03pm Start: 07-30-2022 take 1 tablet by darshan th once daily as needed Valium 5 MG Oral Tablet 1 (one) Tablet daily as needed for 0 days Quantity: 30 {Tablet} Refills: 0 Ordered: 30-Jul-2022 Fast DO, Francheska A Fast DO, Francheska A Start : 30-Jul-2022 Active Comments: Medication taken as needed. verbally called to RA Shi sheehan 08/01/22 Start: 07-30-2022 take 0.4242888160131 5714 tablet by mouth once daily as needed Valium 5 MG Oral Tablet 1 (one) Tablet daily as needed for 0 days Quantity: 30 {Tablet} Refills: 0 Ordered: 30-Jul-2022 Fast DO, Francheska A Fast DO, Francheska A Start : 30-Jul-2022 Active Comments: Medication taken as needed. verbally called to [facility] 12/04 Start: 03-14-2022 take 0.5687737388165 5714 tablet by mouth once daily as needed Valium 5 MG Oral Tablet 1 (one) Tablet daily as needed for 0 days Quantity: 30 {Tablet} Refills: 0 Ordered: 14-Mar-2022 Fast DO, Francheska A Fast DO, Francheska A Start : 14-Mar-2022 Active Comments: Medication taken as needed. verbally called to [facility] 12/04 Start: 01-24-2022 take [id number] 5714 tablet by mouth once daily as needed Valium 5 MG Oral Tablet 1 (one) Tablet daily as needed for 0 days Quantity: 30 {Tablet} Refills: 0 Ordered: 24-Jan-2022 Fast DO, Francheska A Fast DO, Francheska A Start : 24-Jan-2022 Active Comments: Medication taken as needed. verbally called to [facility] 12/04 Start: 12-04-2021 take [id number] 5714 tablet by mouth once daily as needed Valium 5 MG Oral Tablet 1 (one) Tablet daily as needed for 0 days Quantity: 30 {Tablet} Refills: 0 Ordered: 04-Dec-2021 Fast DO, Francheska A Fast DO, Francheska A Start : 04-Dec-2021 Active Comments: Medication taken as needed. verbally called to [facility] 12/04 Start: 05-21-2016 End: 11-07-2021 take 3.4971021511274863 tablets by mouth once daily as needed Valium 5 MG Oral Tablet 1 (one) Tablet daily as needed for 0 days Quantity: 30 {Tablet} Refills: 0 Ordered: 16-Oct-2021 Fast DO, Francheska A Fast DO, Francheska A Start : 16-Oct-2021 Active Comments: Medication taken as needed. verbally called to [facility] 07/12 Start: 05-21-2016 End: 11-07-2021 Diazepam [...] [facility] Medication taken as needed. [facility] 12/04 Medication taken as needed. [facility] 08/01/22 Medication taken as needed. Medication taken as needed. [facility] 01/02/23 [facility] taken as [facility]. [facility] doxylamine succinate 25 mg oral tablet (15 sources) Start: 1 End: 2 Doxylamine Succinate (Unisom (Doxylamine)) 25 mg tablet Discontinued 12.5 mg PO AT BEDTIME as needed October 06, 2020 1:00am November 07, 2021 12:33pm ELASTIC BANDAGES & SUPPORTS (4 sources) Start: 7 HERNIA BELT DOUBLE LARGE MISC Per package ELAST[employer] BANDAGES [employer] SUPPORTS [id number] Khadijah Wilson PA-C esomeprazole 20 mg injection (5 sources) Proton Pump Inhibitor Start: 2 take 1 tablet by mouth once daily NEXIUM 20 MG CPDR One tablet by mouth daily ESOMEPRAZOLE MAGNESIUM [id number] Petros Valdez MD famotidine 40 mg oral [...] 07, 2021 12:34pm take 2 tablets by mo [facility] once daily in the evening famotidine (PEPCID) 20 mg tablet Take 40 mg by mouth DAILY AT 6 PM. 0 Active Comment on above: Take 40 mg by mouth DAILY AT 6 PM. fish oil (10 sources) Start: 12-12-2010 End: 08-28-2011 take 1 tablet by mouth once daily FISH OIL CAPS One tablet by mouth daily OMEGA-3 FATTY ACIDS CAPS [id number] Yeni Gray RN Start: 12-12-2010 take 1 tablet by darshan once daily FISH OIL CAPS One tablet by mouth daily OMEGA-3 FATTY ACIDS CAPS [id number] Sonya Ozuna Fluad 65yr up(PF)45 mcg(15 mcgx3)/0.5 [...] CPDR One tablet by mouth daily LANSOPRAZOLE [id number] Petros Valdez MD lisinopril 5 mg oral tablet (20 sources) Angiotensin Converting Enzyme Inhibitor Start: 12-19-2018 End: 10-10-2021 take 1 tablet by mouth once daily Lisinopril 2.5 mg tablet Discontinued 2.5 mg PO DAILY 90 3 December 12, 2020 4:27pm October 10, 2021 2:31pm Start: 08-18-2013 End: 10-21-2018 take 1 tablet by mouth once daily Lisinopril 2.5 mg tablet Discontinued 2.5 mg PO DAILY 90 3 July 17, 2018 6:05pm October 21, 2018 12:29pm Start: 08-18-2013 End: 09-28-2024 take 1 tablet by mouth once daily Lisinopril 5 mg tablet Discontinued 5 mg PO DAILY 90 3 September 25, 2023 11:00am September 28, 2024 9:46am Start: 07-14-2012 take 1 tablet by darshan th once daily LISINOPRIL 10 MG TABS One tablet by mouth daily LISINOPRIL [id number] Petros Valdez MD Start: 08-28-2011 take 0.5 tablet by m [facility] once daily LISINOPRIL 20 MG TABS One-half tablet by mouth daily LISINOPRIL [id number] Yeni Gray RN Start: 05-29-2011 take 1 tablet by darshan th once daily LISINOPRIL 20 MG TABS One tablet by mouth daily LISINOPRIL [id number] Sonya Ozuna Comment on above: Take 5 [...] state too many to list MULTIPLE VITAMIN [id number] Sonya Ozuna Multivitamin ORAL capsule (2 sources) Start: 11-24-2010 take 1 capsule by mouth once daily Multivitamin ORAL capsule Take 1 capsule by mouth once daily. 0 11/24/2010 Active Comment on above: Take 1 capsule by mo [facility] once daily. Gibson 3-Pek-All-Fish Oil 1 EACH capsule,delayed release(DR/EC) (5 sources) Start: 04-22-2017 End: 10-16-2022 take 1 capsule by mouth once daily Gibson 8-Tir-Sqp-Fish Oil 1 EACH capsule,delayed release(DR/EC) Discontinued 1 {tbl} PO DAILY April 22, 2017 12:00am October 16, 2022 3:12pm OMEGA-3 FATTY ACIDS (5 sources) Start: 04-15-2017 EQL OMEGA 3 FI SH OIL 1200 MG CPDR once daily OMEGA-3 FATTY ACIDS [id number] Mal Joseph MD red yeast rice 600 mg oral capsule (15 sources) Start: 05-18-2021 End: 10-10-2021 take 1 [...] Start: 10-16-2022 take 1 tablet by darshan th once daily Rosuvastatin 10 mg tablet Active 20 mg PO DAILY October 16, 2022 1:00am On Hold: pt does not want to take it Start: 10-16-2022 take 2 tablets by mo [facility] once daily Rosuvastatin 10 mg tablet Active [...] tablet by mouth every evening ROSUVASTATIN CALCIUM [id number] Regine Bonilla RN Comment on above: Mail [...] once daily. sucralfate 100 mg/ml oral suspension (14 sources) Aluminum Complex Start: 2021 End: 2022 Sucralfate (Carafate) 100 mg/mL suspension Discontinued 10 mL PO before meals 1000 0 January 26, 2022 12:00am October 16, 2022 3:13pm take 10mL three times a day one hour before a meal and two hours away from other medications for thirty days. sulfamethoxazole 800 mg / trimethoprim 160 mg oral tablet (5 sources) Dihydrofolate Reductase Inhibitor Antibacterial, Sulfonamide Antimicrobial Start: 2023 End: 2024 Sulfamethoxazole-Trim ethoprim (Bactrim Ds) 800-160 mg tablet Discontinued 1 {tbl} PO DAILY 10 10 0 May 10, 2024 12:00am January 26, 2025 1:03pm tadalafil 5 mg oral tablet (10 sources) Phosphodiesterase 5 Inhibitor Start: 2022 take 1 tablet by mouth once daily tadalafiL 5 mg oral tablet 1 (one) tablet qd as directed for 0 days Quantity: 30 {Tablet} Refills: 3 Ordered: 25-Feb-2023 Naida Montenegro CMA Start : 25-Feb-2023 Active tamsulosin hydrochloride 0.4 mg oral capsule (15 sources) alpha-Adrenergic Bianca Start: 2016 End: 2017 take 1 capsule by mouth once daily Tamsulosin 0.4 MG capsule Discontinued 0.4 mg PO DAILY 7 April 27, 2017 12:00am October 03, 2017 4:42pm CHOLECALCIFEROL (10 sources) Start: 2010 take 1 tablet by mouth once daily VITAMIN D 1000 UNIT TABS One tablet by mouth daily CHOLECALCIFEROL [id number] Sonya Ozuna Start: 12-12-2010 End: 08-28-2011 take 1 tablet by mouth once daily VITAMIN D 1000 UNIT TABS One tablet by mouth daily CHOLECALCIFEROL [id number] Yeni Gray RN vitamin e 400 unt oral capsule (10 sources) Start: 12-12-2010 End: 08-28-2011 take 1 tablet by mouth once daily VITAMIN E 400 UNIT CAPS One tablet by mouth daily VITAMIN E [id number] Sonya Ozuna Problems Active Problems Problem Classification Problem Date Documented Date Episodic/Chronic Abdominal pain (20 sources) Flank pain; Translations: [Pain, flank, bilateral] Resolved: 3 08-10-2022 Episodic Anxiety disorders (20 sources) Anxiety; Translations: [Anxiety] 07-12-2021 Chronic Comment on above: chronic stable-domingo nue present regimen Cardiac dysrhythmias (20 sources) Ventricular premature beats; Translations: [PVCs (premature ventricular contractions)] 07-11-2021 Chronic Comment on above: chronic stable-domingo nue present regimen not feeling these co ntinue to monitor doing well Cardiac dysrhythmias (20 sources) Palpitations; Translations: [Palpitations] Onset: 1 12-12-2010 Episodic Complications of surgical procedures or medical care (2 sources) Postoperative hypothyroidism; Translations: [Postprocedural hypothyroidism] Onset: 1 02-06-2011 Chronic Coronary atherosclerosis and other heart disease (20 sources) Coronary arteriosclerosis; Translations: [Coronary artery disease] Onset: 5 02-25-2023 Chronic Comment on above: risk factor modifica tion we discussed needs ldl lower risk factor modifica tion Diseases of white blood cells (5 sources) Leukocytosis; Translations: [Elevated white blood cell count, unspecified] 05-18-2024 Chronic Disorders of lipid metabolism (20 sources) Hyperlipidemia; Translations: [Hyperlipidemia] Onset: 1 12-12-2010 Chronic Comment on above: discussed diet [...] disease; Translations: [GERD (gastroesophageal reflux disease)] Onset: 8 07-11-2021 Chronic Comment on above: chronic stable-domingo [...] (20 sources) Hypertensive disorder; Translations: [Hypertension] Onset: 5 07-11-2021 Chronic Comment on above: good control on high er dose good control chronic stable-domingo nue present regimen CONTROLLED WITH MEDS Gastritis and duodenitis (16 sources) Gastritis; Translations: [Gastritis, unspecified, without bleeding] Episodic Genitourinary symptoms and ill-defined conditions (5 sources) Dysuria; Translations: [Dysuria] 05-18-2024 Episodic Headache; including migraine (20 sources) Chronic tension-type headache; Translations: [Chronic tension headaches] 07-12-2021 Chronic Comment on above: chronic stable-domingo nue present regimen Heart valve disorders (20 sources) Mitral valve disorder; 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] Onset: 1 12-12-2010 Chronic Hyperplasia of prostate (20 sources) Benign prostatic hyperplasia; Translations: [BPH (benign prostatic hyperplasia)] 07-11-2021 Chronic Comment on above: chronic stable-domingo nue present regimen Immunizations and screening for infectious disease (20 sources) Patient encounter status; Translations: [Encounter for hepatitis C virus screening test for high risk patient] Onset: 8 Resolved: 3 07-11-2021 Episodic Malaise and fatigue (15 sources) Fatigue; Translations: [Other fatigue] 10-09-2021 Episodic Nonmalignant breast conditions (20 sources) Breast finding ; Translations: [Abnormal breast exam] Resolved: 2 03-23-2022 Episodic Comment on above: discussed workup [...] da te Other and unspecified benign neoplasm (15 sources) History of polyp of colon; Translations: [Personal history of colonic polyps] 10-11-2022 Episodic Other and unspecified benign neoplasm (3 sources) Personal history of colonic polyps; Translations: [Personal history of colonic polyps] Episodic Other and unspecified benign neoplasm (20 sources) Dysplastic nevus of skin; Translations: [Atypical nevus] 07-30-2022 Episodic Comment on above: he will followup kye waters discovery guide Other circulatory disease (15 sources) Raynaud's disease; Translations: [Raynaud's syndrome without [...] d on hold fo r now better Other screening for suspected conditions (not mental disorders or infectious disease) (20 sources) Electrocardiogram abnormal; Translations: [Abnormal electrocardiogram [ECG] [EKG]] Onset: 4 11-30-2022 Episodic Comment on above: nonspecific st derpe ssion, LVH per ekg 09/25/2016 Residual codes; unclassified (20 sources) Body mass index 20-24 - normal; Translations: [BMI 22.0-22.9, adult] Resolved: 3 07-11-2021 Episodic Residual codes; unclassified (20 sources) Swelling - edema - symptom; Translations: [Edema] 07-11-2021 Episodic Residual codes; unclassified (20 sources) Non-smoker; Translations: [Nonsmoker] 07-11-2021 Episodic Residual codes; unclassified (20 sources) Edema; Translations: [Edema] Resolved: 3 10-25-2021 Episodic Comment on above: watch salt support h ose Residual codes; unclassified (20 sources) Bilateral lower limb edema; Translations: [Bilateral leg edema] 06-03-2023 Episodic Comment on above: think veenous stasis - check doppler - wear support hose watch salt Thyroid disorders (2 sources) Non-toxic multinodular goiter; 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] Onset: 11-24-2010 Chronic Unclassified (20 sources) [facility] WELLNESS EXAM 07-11-2021 Unclassified (20 sources) Chronic tension headaches Unclassified (20 sources) Unclassified (20 sources) BMI 22.0-22.9, adult Unclassified (20 sources) Nonsmoker Unclassified (20 sources) Encounter for hepatitis C virus screening test for high risk patient Unclassified (20 sources) Colon polyp Unclassified (20 sources) PVCs (premature ventricular contractions) Unclassified (17 sources) BMI 21.0-21.9, adult Urinary tract infections (5 sources) Acute urinary tract infection; Translations: [Urinary [...] 04-09-2017 Episodic Other aftercare (5 sources) Other manager long term care (current) drug therapy; Translations: [Other custodial (current) drug therapy] Onset: 12-12-2010 12-12-2010 Episodic [...] male genital organs, unspecified] Onset: 06-01-2024 Episodic Residual codes; unclassified (2 sources) Family [...] Test Name Value Interpretation Reference Range Facility Gastroenterology Visit Repor tameka 03-23-2025 Gastroenterology Visit Report [facility] Gastroenterology [address] [place] [address] OFFICE VISIT Date of Service: 03/23/25 MR#: [id number] Acct: [id number] Name: JUNG ABURTO Rep #: [id number] : 1945 Provider: David Parra DO Age/Sex: 79/M Location: [facility] Status: Signed Intake Vital Signs 05/10/24 10:25 03/02/25 06:01 Height 6 ft 6 ft Intake Visit Reasons: 6 M FU Allergies No Known Allergies Allergy (Verified 03/02/25 06:01) Medications ???Medication ???Instructions ???Recorded ???Confirmed ???Type coenzyme Q10 30 mg capsule 30 mg PO DAILY 05/21/16 03/23/25 H istory multivitamin 1 ea PO DAILY 05/21/16 03/23/25 Hi story cyanocobalamin (vitamin B-12) 2,000 mcg PO DAILY 04/22/17 History 2,000 mcg tablet ascorbic acid (vitamin C) 1,000 mg 1 g PO QDAY 09/25/17 03/23/25 Hi story tablet s-adenosylmethionine 400 mg tablet 800 mg PO DAILY 10/10/21 5 History melatonin 12 mg tablet 12 mg PO QHS 10/16/22 03/23/25 His tory rosuvastatin 10 mg tablet 20 mg PO DAILY 10/16/22 03/23/25 H istory Held on 02/25/25. Instructions: pt does not want to take it aspirin-sod bicarb-citric acid 325 1 tab PO PRN PRN BLOATING 03/23/25 History mg-1,916 mg-1,000 mg efferves tab (Maryjane-Denise Original) lisinopril 5 mg tablet 5 mg PO DAILY #90 tabs 09/28/24 Rx vonoprazan 10 mg tablet (Voquezna) 10 mg PO QDAY 10/01/24 03/23/25 History omeprazole 40 mg capsule,delayed 40 mg PO QDAY #90 caps 10/16/24 Rx release Have you fallen in the past year?: No PFSH Medical History Arteriosclerosis of coronary artery [...] disease Hyperlipidemia Palpitations Surgical History History of hand surgery History of cardiac catheterization History of esophagogastroduodenosc [...] Moderate to marked diffuse fecal retention. OV 1.23.25 pt reports that PCP switched him from [...] he is able to keep him symptoms "at bay". 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 EGD 03.02.25 Z-line irregular, 42 cm from the incisors. Biopsied. Large hiatal hernia. No gross lesions in the entire stomach. No gross lesions in the entire examined duodenum. OV 03.23.25 pt reports continued symptoms; is here to discuss recent testing results and possible hiatal hernia repair. ROS Const Constitutional: No fatigue, fever(s) or weight change ENT ENT: No difficulty swallowing Gastro GI: No abdominal pain, belching, bloating, change in bowel habits, change in stool character, coffee groun (more content not included)... Normal [facility] Cardiovascular stress test r eportOrdered By: Petros Valdez on 03-09-2025 Study report [facility] Cardiovascular Services [address] [place] [address] MR#: [id number] Acct: [id number] Name: JUNG ABURTO Rep #: [id number] : 1945 79 From: Petros Valdez MD Primary Care: Dr. Francheska Alonzo, DO Status: REG CLI Referring Dr: Petros Valdez MD Sex: M C Stress Test Report Exercise myocardial perfusion stress test. 79-year-old man with a history of coronary disease Stress protocol: Resting EKG demonstrates sinus bradycardia with a rate of 55 bpm resting blood pressure is 142/90 mmHg. The patient exercised according to the regular [place] protocol for a total duration of 8 minutes attaining a maximum heart rate of 155bpm which was 109% of maximum predicted heart rate; the maximum workload was 10.1 metabolic equivalents. At rest there were no ST or T wave changes noted tosuggest ischemia and at peak exercise upsloping ST changes only were noted whichdid not meet the criteria for ischemia. No clinical angina was noted the test was terminated due to the target heart rate being achieved/fatigue. The peak blood pressure was 182/80 mmHg. Rate-pressure product was 19,000. Myocardial perfusion protocol. 12 mCi of technetium 99m sestamibi was injected at rest. The patient exercised according to regular [place] protocol for total duration of 8 minutes and at peak exercise 36.6 mCi of technetium 99m sestamibi was injected stress images were obtained stress and rest images were reconstructed in comparing the short axis vertical long and horizontal long axis. Gated images were also obtained. Perfusion SPECT analysis: Review of the stress images demonstrate normal uptake of tracer noted in all areas of the myocardium. The resting images similarly demonstrate normal uptakeof tracer noted in all areas of the myocardium. No areas of reversibility are noted to suggest ischemia no previous infarct was noted. Gated SPECT analysis: The gated ejection fraction is 65%. Conclusion: Normal exercise myocardial perfusion stress test at a high workload Preserved ejection fraction. 03/09/25805 Date _ Petros Valdez MD CC: Dr. Petros Valdez MD; DO Larry Minaya Date Dictated: 03/09/25802 Date Transcribed: 03/09/25802 Curator: CO Signed [facility] Work Phone: Echocardiogram study reportO rdered By: Petros Valdez on 03-09-2025 Study report [facility] Cardiovascular Services [address] [place] [address] Echo Complete 03/08/25 0838 MR#: [id number] Acct: [id number] Name: JUNG ABURTO Rep #:[id number] : 1945 79 From: Petros Landon Attending Dr: Dr. Petros Valdez MD S tatus: REG CLI Ordering Dr: Petros Valdez MD Date: Location: CVS Sex: M C Admitted: Reason For Study Reason For Study: HTN Procedure This was a 2D Doppler, Color Flow transthoracic echocardiogram. Exam performed in department. Left Ventricle Normal LV size. Mild concentric left ventricular hypertrophy. The left ventricular ejection fraction is 70 %. Stage 1 diastolic dysfunction. No regional wall motion abnormalities noted. Right Ventricle Normal RV size. Normal systolic function. Atria Normal left atrium. Normal right atrium. Mitral Valve Normal mitral valve. Tricuspid Valve Normal tricuspid valve. Mild (1+) tricuspid valve insufficiency. Pulmonary artery systolic pressure is 28 mmHg. Aortic Valve Trisinus/trileaflet aortic valve. Mild focal aortic valve calcification. Pulmonic Valve Normal pulmonic valve. Great Vessels Normal aortic root. The pulmonary artery is normal size. Inferior vena cava collapse with respiration. Pericardium/Pleural No pericardial effusion. MMode/2D Measurements & Calculations LVIDd: 4.6 cm IVSd: 1.2 cm Ao root diam: 4.1 cm LVIDs: 3.1 cm LVPWd: 1.5 cm RVDd: 3.7 cm FS: 33.4 % LAV(MOD-bp): 66.5 ml LVAd ap4: 31.6 cm2 SV(MOD-sp4): 71.7 ml LAV(MOD-bp) Indexed: 34.0 ml/m2 LVLd ap4: 7.8 cm SI(MOD-sp4): 36.6 ml/m2 LAV(MOD-sp2): 62.5 ml EDV(MOD-sp4): 105.0 ml LAV(MOD-sp4): 64.3 ml EDV(sp4-el): 108.5 ml LVAs ap4: 15.0 cm2 LVLs ap4: 5.6 cm ESV(MOD-sp4): 33.2 ml ESV(sp4-el): 33.9 ml EF(MOD-sp4): 68.3 % EF(sp4-el): 68.8 % SV(sp4-el): 74.6 ml LA A4 area: 20.1 cm2 LA dimension(2D): 4.5 cm RA A4 area: 14.1 cm2 Time Measurements MV dec time: 0.36 sec Doppler Measurements & Calculations MV E max mariam: 59.5 cm/sec Lat Peak E' Mariam: 7.2 cm/sec Med Peak E' Mariam: 4.3 cm/sec MV A max mariam: 92.3 cm/sec E/E' lat: 8.3 E/E' med: 13.8 MV E/A: 0.65 MV V2 max: 99.0 cm/sec Ao V2 max: 113.5 cm/sec MV max P.9 mmHg MV dec slope: 163.7 cm/sec2 Ao max P.2 mmHg MV V2 mean: 53.6 cm/sec Ao V2 mean: 75.7 cm/sec MV mean P.4 mmHg Ao mean P.7 mmHg MV V2 VTI: 29.5 cm Ao V2 VTI: 24.6 cm AV (velocity ratio): 0.93 LV V1 max: 101.7 cm/sec PA V2 max: 71.6 cm/sec TR max mariam: 243.7 cm/sec LV V1 max P.1 mmHg PA V2 mean: 50.3 cm/sec TR max P.8 mmHg LV V1 mean P.4 mmHg LV V1 mean: 73.1 cm/sec LV V1 VTI: 22.8 cm ECHO/Echo Complete Interpretation Summary Normal LV size. Mild concentric left ventricular hypertrophy. The left ventricular ejection fraction is 70 %. Mild focal aortic valve calcification. Stage 1 diastolic dysfunction. Pulmonary artery systolic pressure is 28 mmHg. Ordering Physician: Petros Valdez Referring Physician: Petros Valdez Performed By: Mariel Rodriguez and Student 03/09/25 1112 Date _ Petros Valdez MD CC: Dr. Petros Valdez MD; Dr. Francheska Alonzo DO ~ Date Dictated: 03/08/25 0838 Date Transcribed: 03/09/25 111 Curator: Signed [facility] Work Phone: Stress Reporton 03-09-2025 Stress Report [facility] [place] [address] [address] MR#: [id number] Acct: [id number] Name: JUNG ABURTO Rep #: [id number] : 1945 79 From: Petros Valdez MD Primary Care: Dr. Francheska Alonzo, DO Status: R EG CLI Referring Dr: Petros Valdez MD Sex: M C Stress Test Report Exercise myocardial perfusion stress test. 79-year-old man with a history of coronary disease Stress protocol: Resting EKG demonstrates sinus bradycardia with a rate of 55 bpm resting blood pressure is 142/90 mmHg. The patient exercised according to the regular [place] protocol for a total duration of 8 minutes attaining a maximum heart rate of 155 bpm which was 109% of maximum predicted heart rate; the maximum workload was 10.1 metabolic equivalents. At rest there were no ST or T wave changes noted to suggest ischemia and at peak exercise upsloping ST changes only were noted which did not meet the criteria for ischemia. No clinical angina was noted the test was terminated due to the target heart rate being achieved/fatigue. The peak blood pressure was 182/80 mmHg. Rate-pressure product was 19,000. Myocardial perfusion protocol. 12 mCi of technetium 99m sestamibi was injected at rest. The patient exercised according to regular [place] protocol for total duration of 8 minutes and at peak exercise 36.6 mCi of technetium 99m s estamibi was injected stress images were obtained stress and rest images were reconstructed in comparing the short axis vertical long and horizontal long axis. Gated images were also obtained. Perfusion SPECT analysis: Review of the stress images demonstrate normal uptake of tracer noted in all areas of the myocardium. The resting images similarly demonstrate normal uptake of tracer noted in all areas of the myocardium. No areas of reversibility are noted to suggest ischemia no previous infarct was noted. Gated SPECT analysis: The gated ejection fraction is 65%. Conclusion: Normal exercise myocardial perfusion stress test at a high workload Preserved ejection fraction. 03/09/25 0806 Date Petros Valdez MD CC: Dr. Petros Valdez MD; Dr. Francheska Alonzo DO Date Dictated: 03/09/25802 Date Transcribed: 03/09/25802 Curator: CO Signed Normal [facility] Echo Completeon 03-08-2025 Echo Complete [facility] Cardi[facility] Services [address] [place] [address] Echo Complete 03/08/25837 MR#: [id number] Acct: [id number] Name: JUNG ABURTO Rep #: [id number] : 1945 79 From: Petros Valdez MD Attending Dr: Dr. Petros Valdez MD Status: JOSE C ESPINOZA Ordering Dr: Petros Valdez MD Date: 03/08/25 Location: [facility] Sex: M C Admitted: Reason For Study Reason For Study: HTN Procedure This was a 2D Doppler, Color Flow transthoracic echocardiogram. Exam performed in department. Left Ventricle Normal LV size. Mild concentric left ventricular hypertrophy. The left ventricular ejection fraction is 70 %. Stage 1 diastolic dysfunction. No regional wall motion abnormalities noted. Right Ventricle Normal RV size. Normal systolic function. Atria Normal left atrium. Normal right atrium. Mitral Valve Normal mitral valve. Tricuspid Valve Normal tricuspid valve. Mild (1+) tricuspid valve insufficiency. Pulmonary artery systolic pressure is 28 mmHg. Aortic Valve Trisinus/trileaflet aortic valve. Mild focal aortic valve calcification. Pulmonic Valve Normal pulmonic valve. Great Vessels Normal aortic root. The pulmonary artery is normal size. Inferior vena cava collapse with respiration. Pericardium/Pleural No pericardial effusion. MMode/2D Measurements Calculations LVIDd: 4.6 cm IVSd: 1.2 cm Ao root diam: 4.1 cm LVIDs: 3.1 cm LVPWd: 1.5 cm RVDd: 3.7 cm FS: 33.4 % LAV(MOD-bp): 66.5 ml LVAd ap4: 31.6 cm2 SV(MOD-sp4): 71.7 ml LAV(MOD-bp) Indexed: 34.0 ml/m2 LVLd ap4: 7.8 cm SI(MOD-sp4): 36.6 ml/m2 LAV(MOD-sp2): 62.5 ml EDV(MOD-sp4): 105.0 ml LAV(MOD-sp4): 64.3 ml EDV(sp4-el): 108.5 ml LVAs ap4: 15.0 cm2 LVLs ap4: 5.6 cm ESV(MOD-sp4): 33.2 ml ESV(sp4-el): 33.9 ml EF(MOD-sp4): 68.3 % EF(sp4-el): 68.8 % SV(sp4-el): 74.6 ml LA A4 area: 20.1 cm2 LA dimension(2D): 4.5 cm RA A4 area: 14.1 cm2 Time Measurements MV dec time: 0.36 sec Doppler Measurements Calculations MV E max mariam: 59.5 cm/sec Lat Peak E' Mariam: 7.2 cm/sec Med Peak E' Mariam: 4.3 cm/sec MV A max mariam: 92.3 cm/sec E/E' lat: 8.3 E/E' med: 13.8 MV E/A: 0.65 MV V2 max: 99.0 cm/sec Ao V2 max: 113.5 cm/sec MV max P.9 mmHg MV dec slope: 163.7 cm/sec2 Ao max P.2 mmHg MV V2 mean: 53.6 cm/sec Ao V2 mean: 75.7 cm/sec MV mean P.4 mmHg Ao mean P.7 mmHg MV V2 VTI: 29.5 cm Ao V2 VTI: 24.6 cm AV (velocity ratio): 0.93 LV V1 max: 101.7 cm/sec PA V2 max: 71.6 cm/sec TR max mariam: 243.7 cm/sec LV V1 max P.1 mmHg PA V2 mean: 50.3 cm/sec TR max P.8 mmHg LV V1 mean P.4 mmHg LV V1 mean: 73.1 cm/sec LV V1 VTI: 22.8 cm ECHO/Echo Complete Interpretation Summary Normal LV size. Mild concentric left ventricular hypertrophy. The left ventricular ejection fraction is 70 %. Mild focal aortic valve calcification. Stage 1 diastolic dysfunction. Pulmonary artery systolic pressure is 28 mmHg. Ordering Physician: Petros Valdez Referring Physician: Petros Valdez Performed By: Mariel Rodriguez and Student 03/09/25 1112 Date Petros Valdez MD CC: Dr. Petros Valdez MD; Dr. Francheska Alonzo DO Date Dictated: 03/08/2538 Date Transcribed: 03/09/251111 Curator: Signed Normal [facility] EGD Reporton 03-02-2025 EGD Report [facility] Medical Records Department [address] [place] [address] EGD Report MR#: [id number] Acct: [id number] Name: JUNG ABURTO Rep #: [id number] : 1945 79 From: David Parra DO PCP: Dr. Francheska Alonzo DO Status:REG [facility] Patient Name: Jung Aburto Procedure Date: 03/02/2025 [...] pathology results. Procedure Code(s): --- Professional --- 07509, Esophagogastroduodenosc opy, flexible, transoral; with biopsy, single or multiple CPT copyright 2021 [employer]. All rights reserved. The codes documented in this report are preliminary and upon sewer line photo inspector review may be revised to meet current compliance requirements. David Parra DO 03/02/2025 7:10:43 AM This report has been signed electronically. Number of Addenda: 0 Note Initiated On: 03/02/2025 6:49 AM 03/02/25710 Date David Lopez Signature: Date (if indicated) CC: Dr. Francheska Alonzo DO; David Parra DO Date Dictated: 03/02/25648 Date Transcribed: Curator: PRAVIN Mendez [facility] MR/POSTOP.Zo 03-02-2025 MR/POSTOP.[facility] Medical Records Department [address] [place] [address] Anesthesia Postop Eval I 03/02/25715 MR#: [id number] Acct: [id number] Name: JUNG ABURTO Rep #: [id number] : 1945 79 From: Leo Bolom PCP: Dr. Francheska Alonzo DO Status:REG SDC Y Race: C Location: [place] [address] Anesthesia: Postop Eval I Current Vital Signs [...] Leo Marcano Signature: Date CC: Signed Normal [facility] MR/[id number] 03-02-2025 MR/POSTOPAN2 [facility] Medical Records Department [address] [place] [address] Anesthesia Postop Eval II 03/02/25 0848 MR#: [id number] Acct: [id number] Name: JUNG ABURTO Rep #: [id number] : 1945 79 From: Cheyenne Montiel CRNA PCP: Dr. Francheska Alonzo, DO Status:DEP [facility] Y Race: C Location: EN Anesthesia Postop [...] Pain Level: 0 nausea: No Vomiting: No 03/02/2548 Date Cheyenne Montiel INTERFACE ANALYST Karligner Signature: Date CC: Signed Normal [facility] Surgery Specimen Level Angelito 03-02-2025 Surgery Specimen Level IV Patient Age/Sex Location Account Attending Physician JUNG ABURTO 79/M EN [id number] David Parra DO Specimen: [id number] Received: 03/02/25 Status: AUBREY Davis Num: [id number] Spec Type: EGD BIOPSY Bryon Dr: David Parra DO HEADER OPERATION: EGD, biopsy PRE-OP DIAGNOSIS: Gastroesophageal reflux disease, Yates's esophagus TISSUE SUBMITTED: A- Distal esophagus biopsy MICROSCOPIC DIAGNOSIS A. Distal esophagus, biopsy: - Benign squamous mucosa. - Scant columnar mucosa negative for goblet cell metaplasia. MICROSCOPIC DESCRIPTION Slides are reviewed. GROSS DESCRIPTION A. Received in fixative is one container labeled with the patient's name and designated Distal esophagus biopsy." The specimen consists of three irregular fragments of light rick soft tissue that in aggregate measure 0.3 to 0.5 cm. The specimen is totally submitted in one cassette. Gwyn 03/02/2025 CPT:35832 Patient Age/Sex Location Account Attending Physician JUNG ABURTO 79/M EN [id number] David Parra DO Signed (signature on file) Dr. Alexa Vo MD 03/17/25 5211 Normal [facility] Comment on above: Performed By: #### P SUIV ####[facility] [address] [place], [place], [address] MR/PAT.CALEshara 02-25-2025 MR/PAT.CALE [facility] Medical Records Department [address] [place] [address] PAT - Anesthesia 02/25/25 1318 MR#: [id number] Acct: [id number] Name: JUNG ABURTO Rep #: [id number] : 1945 79 From: Miguelito Streeter MD PCP: Dr. 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: Anesthesia History - newsstand vendor Hx Hospitalization No 02/25/25 12:56 Any Problems [...] take am of surgery PONV PONV - newsstand vendor: PONV - newsstand vendor Female No 02/25/25 12:56 HX of Motion Sickness No 02/25/25 12:56 HX of N/V After Surgery No 02/25/25 12:56 Non-Smoker Yes 02/25/25 12:56 Duration of Surgery greater No 02/25/25 12:56 than 60 minutes Number of Risk Factors 1 02/25/25 12:56 PONV Score Low Risk 02/25/25 12:56 Height Weight Height Weight: Anesthesia: Height Weight Height 6 ft 05/10/24 10:25 Respiratory Assessment Respiratory Assessment - newsstand vendor: Respiratory Tract Infection Hx - newsstand vendor Hx Respiratory Tract Infection No 02/25/25 12:56 STOP Sleep Apnea STOP Sleep Apnea - newsstand vendor: STOP Sleep Apnea - newsstand vendor Hx Hypertension Yes: CONTROLLED WITH 02/25/25 12:56 [...] Tobacco Use History Tobacco Use History - newsstand vendor: Tobacco Use History - newsstand vendor Tobacco Use Smoking Status Never smoker 02/25/25 12:56 Hx Tobacco Use No 02/25/25 12:56 Years Smoking Packs Smoked per Day Smoking Cessation Date was within the last 15 years Hx Smoking Cessation Date Hx Smoking Cessation Counseling Hematologic Medial History Hematologic Hx - newsstand vendor: Hematologic Medical Hx - cold roller Hx of Blood Transfusion No 02/25/25 12:56 [...] confused, unrespo /Reproduction History /Reproductive History - newsstand vendor: /Reproductive Hx- newsstand vendor Hx Now No 02/25/25 12:56 Gestational Age (in weeks): EDC: Hx Hx Para Hx Section SAB No 02/25/25 12:56 PFSH Medical History (Updated 02/25/25 @ 12:59 by [...] tory tablet (more content not included)... Normal [facility] Cardiology Visit Reporton Cardiology Visit Report [facility] [address] [place] [address] OFFICE VISIT Date of Service: 01/26/25 MR#: [id number] Acct: [id number] Name: JUNG ABURTO Rep #: [id number] : 1945 Provider: Dr. Petros Valdez MD Age/Sex: 79/M Location: [facility] Status: Signed HPI HPI History of Present [...] Monitor Intake Visit Reasons: 1 Y FU History Card Clerk Required: No Accompanied by: Self Is patient [...] 01/26/25 History mg-1,916 mg-1,000 mg efferves tab (Maryjane-Morrow Original) lisinopril 5 mg tablet 5 mg [...] for diz (more content not included)... Normal [facility] Absolute lymphocyte countOrd ered By: Francheska Alonzo on 12-23-2024 Lymphocytes Auto (Unsp spec) [#/Vol] 1.36 10*3/uL 0.83-4.51 [facility] Absolute neutrophil countOrd ered By: Francheska Alonzo on 12-23-2024 Neutrophils (Bld) [#/Vol] 3.3 10*3/uL 2.0-7.7 [facility] Anion gap in Serum or Plasma Ordered By: Francheska Fast on 12-23-2024 Anion gap [Moles/Vol] 11 mmol/L 5-15 [facility] Automated lymphocyte count a s percentage of total leukocytesOrdered By: Francheska Fast on 12-23-2024 Lymphocytes/100 WBC Auto (Unsp spec) 24.8 % 19-41 [facility] BUN/creatinine ratioOrdered By: Francheska Fast on 12-23-2024 Urea nitrogen/Creatinine [Mass ratio] 22.0 mg/mg High 10-20 [facility] Basophil percentageOrdered B y: Francheska Fast on 12-23-2024 Basophils/100 WBC (Bld) 0.9 % 0-1 [facility] Bilirubin, totalOrdered By: Francheska Fast on 12-23-2024 Bilirubin [Mass/Vol] 0.36 mg/dL 0.00-1.30 [facility] CBC W/Diff, Automatedon 12-08 Absolute Lymph 1.36 X10 3/uL Normal 0.83-4.51 [facility] Comment on above: Performed By: #### L 100.0100, L506.0200, L500.4100, L503.0106, L500.4050, L506.1001 #### [facility] [address] [place], [address] Absolute Neut 3.3 X10 3/uL Normal 2.0-7.7 [facility] Comment on above: Performed By: #### L 100.0100, L506.0200, L500.4100, L503.0106, L500.4050, L506.1001 #### [facility] [address] [place], [address] Basophils/100 WBC (Bld) 0.9 % Normal 0-1 [facility] Comment on above: Performed By: #### L 100.0100, L506.0200, L500.4100, L503.0106, L500.4050, L506.1001 #### [facility] [address] [place], [address] Eosinophils/100 WBC (Bld) 6.6 % High 0-5 [facility] Comment on above: Performed By: #### L 100.0100, L506.0200, L500.4100, L503.0106, L500.4050, L506.1001 #### [facility] [address] [place], [address] Erythrocyte distribution width (RBC) [Ratio] 12.6 % Normal 11.6-14.6 [facility] Comment on above: Performed By: #### L 100.0100, L506.0200, L500.4100, L503.0106, L500.4050, L506.1001 #### [facility] [address] [place], [address] Hematocrit (Bld) [Volume fraction] 42.5 % Normal 40-54 [facility] Comment on above: Performed By: #### L 100.0100, L506.0200, L500.4100, L503.0106, L500.4050, L506.1001 #### [facility] [address] [place], [address] Hemoglobin (Bld) [Mass/Vol] 15.1 g/dL Normal 13.0-16.5 [facility] Comment on above: Performed By: #### L 100.0100, L506.0200, L500.4100, L503.0106, L500.4050, L506.1001 #### [facility] [address] [place], [address] IG% 0.200 Normal 0.0-0.9 [facility] Comment on above: Result Comment: IG% - Immature Granulocytes (promyelocytes, myelocytes and metamyelocytes) > 1% indicates that a LEFT SHIFT is Present. Performed By: #### L 100.0100, L506.0200, L500.4100, L503.0106, L500.4050, L506.1001 #### [facility] [address] [place], [address] Lymphocytes/100 WBC (Bld) 24.8 % Normal 19-41 [facility] Comment on above: Performed By: #### L 100.0100, L506.0200, L500.4100, L503.0106, L500.4050, L506.1001 #### [facility] [address] [place], [address] MCH (RBC) [Entitic mass] 34.3 pg High 27.0-32.0 [facility] Comment on above: Performed By: #### L 100.0100, L506.0200, L500.4100, L503.0106, L500.4050, L506.1001 #### [facility] [address] [place], [address] MCHC (RBC) [Mass/Vol] 35.5 g/dL Normal 32-36 [facility] Comment on above: Performed By: #### L 100.0100, L506.0200, L500.4100, L503.0106, L500.4050, L506.1001 #### [facility] [address] [place], [address] MCV (RBC) [Entitic vol] 96.6 fL High 80-94 [facility] Comment on above: Performed By: #### L 100.0100, L506.0200, L500.4100, L503.0106, L500.4050, L506.1001 #### [facility] [address] [place], [address] Monocytes/100 WBC (Bld) 8.4 % Normal 0-10 [facility] Comment on above: Performed By: #### L 100.0100, L506.0200, L500.4100, L503.0106, L500.4050, L506.1001 #### [facility] [address] [place], [address] Neutrophils/100 WBC (Bld) 59.1 % Normal 47-70 [facility] Comment on above: Performed By: #### L 100.0100, L506.0200, L500.4100, L503.0106, L500.4050, L506.1001 #### [facility] [address] [place], [address] Nucleated RBC (Bld) [#/Vol] 0 10*3/uL Normal 0-5 [facility] Comment on above: Performed By: #### L 100.0100, L506.0200, L500.4100, L503.0106, L500.4050, L506.1001 #### [facility] [address] [place], [address] Platelet mean volume (Bld) [Entitic vol] 11.3 fL Normal 6.2-12.0 [facility] Comment on above: Performed By: #### L 100.0100, L506.0200, L500.4100, L503.0106, L500.4050, L506.1001 #### [facility] [address] [place], [address] Platelets (Bld) [#/Vol] 188 10*3/uL Normal 150-450 [facility] Comment on above: Performed By: #### L 100.0100, L506.0200, L500.4100, L503.0106, L500.4050, L506.1001 #### [facility] [address] [place], [address] RBC (Bld) [#/Vol] 4.40 10*6/uL Low 4.6-6.2 [facility] Comment on above: Performed By: #### L 100.0100, L506.0200, L500.4100, L503.0106, L500.4050, L506.1001 #### [facility] [address] [place], [address] RDW SD 45.0 fl High 35.1-43.9 [facility] Comment on above: Performed By: #### L 100.0100, L506.0200, L500.4100, L503.0106, L500.4050, L506.1001 #### [facility] [address] [place], [address] WBC (Bld) [#/Vol] 5.5 10*3/uL Normal 4.4-11.0 [facility] Comment on above: Performed By: #### L 100.0100, L506.0200, L500.4100, L503.0106, L500.4050, L506.1001 #### [facility] [address] [place], [address] Calculated very low density lipoprotein (VLDL) cholesterol measurementOrdered By: Francheska Fast on 12-23-2024 Calculated very low density lipoprotein (VLDL) cholesterol measurement 19 mg/dL 5-40 [facility] VLDL Cholesterol 19 mg/dL -40 [facility] Carbon dioxide, total [Moles /volume] in Central venous bloodOrdered By: Francheska Fast on 12-23-2024 CO2 [Moles/Vol] 22.7 mmol/L 21.0-32.0 [facility] Chloride assayOrdered By: De bra Fast on 12-23-2024 Chloride [Moles/Vol] 105 mmol/L 98-108 [facility] Comprehensive Metabolic Prof ilon 12-23-2024 Albumin [Mass/Vol] 4.4 g/dL Normal 3.4-4.8 [facility] Comment on above: Performed By: #### L 100.0100, L506.0200, L500.4100, L503.0106, L500.4050, L506.1001 ####[facility] [address] [place], [address] Albumin/Globulin [Mass ratio] 1.7 {ratio} Normal 0.9-2.4 [facility] Comment on above: Performed By: #### L 100.0100, L506.0200, L500.4100, L503.0106, L500.4050, L506.1001 ####[facility] [address] [place], [address] ALK PHOS 82 U/L Normal 40-129 [facility] Comment on above: Performed By: #### L 100.0100, L506.0200, L500.4100, L503.0106, L500.4050, L506.1001 ####[facility] [address] [place], [address] ALT [Catalytic activity/Vol] 19 U/L Normal <=46 [facility] Comment on above: Performed By: #### L 100.0100, L506.0200, L500.4100, L503.0106, L500.4050, L506.1001 ####[facility] [address] [place], [address] AST [Catalytic activity/Vol] 25 U/L Normal <=37 [facility] Comment on above: Performed By: #### L 100.0100, L506.0200, L500.4100, L503.0106, L500.4050, L506.1001 ####[facility] [address] [place], [address] Bilirubin [Mass/Vol] 0.36 mg/dL Normal 0.00-1.30 [facility] Comment on above: Performed By: #### L 100.0100, L506.0200, L500.4100, L503.0106, L500.4050, L506.1001 ####[facility] [address] [place], [address] BUN/CRE 22.0 RATIO High 10-20 [facility] Comment on above: Performed By: #### L 100.0100, L506.0200, L500.4100, L503.0106, L500.4050, L506.1001 ####[facility] [address] [place], [address] Calcium [Mass/Vol] 9.5 mg/dL Normal 7.6-11.0 [facility] Comment on above: Performed By: #### L 100.0100, L506.0200, L500.4100, L503.0106, L500.4050, L506.1001 ####[facility] [address] [place], [address] Chloride [Moles/Vol] 105 mmol/L Normal 98-108 [facility] Comment on above: Performed By: #### L 100.0100, L506.0200, L500.4100, L503.0106, L500.4050, L506.1001 ####[facility] [address] [place], [address] CO2 [Moles/Vol] 22.7 mmol/L Normal 21.0-32.0 [facility] Comment on above: Performed By: #### L 100.0100, L506.0200, L500.4100, L503.0106, L500.4050, L506.1001 ####[facility] [address] [place], [address] Creatinine [Mass/Vol] 0.93 mg/dL Normal 0.70-1.20 [facility] Comment on above: Performed By: #### L 100.0100, L506.0200, L500.4100, L503.0106, L500.4050, L506.1001 ####[facility] [address] [place], [address] GAP 11 Normal 5-15 [facility] Comment on above: Performed By: #### L 100.0100, L506.0200, L500.4100, L503.0106, L500.4050, L506.1001 ####[facility] [address] [place], [address] GFR/1.73 sq M.predicted among non-blacks MDRD (S/P/Bld) [Vol rate/Area] 84 mL/min/{1.73_m2} Normal >60 [facility] Comment on above: Result Comment: mL/m in/1.73m2 CKD-EPI Creatinine Equation (2020) Performed By: #### L 100.0100, L506.0200, L500.4100, L503.0106, L500.4050, L506.1001 ####[facility] [address] [place], [address] Globulin (S) [Mass/Vol] 2.6 g/dL Normal 2.2-4.2 [facility] Comment on above: Performed By: #### L 100.0100, L506.0200, L500.4100, L503.0106, L500.4050, L506.1001 ####[facility] [address] [place], [address] Glucose [Mass/Vol] 83 mg/dL Normal 70-99 [facility] Comment on above: Performed By: #### L 100.0100, L506.0200, L500.4100, L503.0106, L500.4050, L506.1001 ####[facility] [address] [place], [address] Potassium [Moles/Vol] 4.6 mmol/L Normal 3.3-5.1 [facility] Comment on above: Result Comment: Hemo lysis present, Results??could be affected. ?? Performed By: #### L 100.0100, L506.0200, L500.4100, L503.0106, L500.4050, L506.1001 ####[facility] [address] [place], [address] Sodium [Moles/Vol] 139 mmol/L Normal 133-145 [facility] Comment on above: Performed By: #### L 100.0100, L506.0200, L500.4100, L503.0106, L500.4050, L506.1001 ####[facility] [address] [place], [address] T PROT 7.0 g/dL Normal 5.9-8.4 [facility] Comment on above: Performed By: #### L 100.0100, L506.0200, L500.4100, L503.0106, L500.4050, L506.1001 ####[facility] [address] [place], [address] Urea nitrogen [Mass/Vol] 21 mg/dL High 4-19 [facility] Comment on above: Performed By: #### L 100.0100, L506.0200, L500.4100, L503.0106, L500.4050, L506.1001 ####[facility] [address] [place], [address] Eosinophil percentageOrdered By: Francheska Fast on 12-23-2024 Eosinophils/100 WBC (Bld) 6.6 % High 0-5 [facility] Erythrocyte distribution wid th (RBC) [Ratio]Ordered By: Francheska Fast on 12-23-2024 Erythrocyte distribution width (RBC) [Entitic vol] 45.0 fL High 35.1-43.9 [facility] Erythrocyte distribution wid th ratioOrdered By: Francheska Fast on 12-23-2024 Erythrocyte distribution width (RBC) [Ratio] 12.6 % 11.6-14.6 [facility] Erythrocyte distribution wid th standard deviationOrdered By: Francheska Fast on 12-23-2024 Erythrocyte distribution width (RBC) [Ratio] 45.0 fl High 35.1-43.9 [facility] Folate [Mass/Vol]Ordered By: Francheska Fast on 12-23-2024 Serum Folate 39.30 ng/mL High 4.60-34.80 [facility] Comment on above: Hemolysis, Results w ill be affected, Requires Recollection. Folate [Mass/volume] in Seru m or PlasmaOrdered By: Francheska Fast on 12-23-2024 Folate [Mass/Vol] 39.30 ng/mL High 4.60-34.80 [facility] Comment on above: Hemolysis, Results w ill be affected, Requires Recollection. Folates,Serum (Folic Acid)on 12-23-2024 FOLATES,SERUM 39.30 ng/mL High 4.60-34.80 [facility] Comment on above: Order Comment: N Result Comment: Hemo lysis, Results will be affected, Requires Recollection. Performed By: #### L 100.0100, L506.0200, L500.4100, L503.0106, L500.4050, L506.1001 #### [facility] [address] [place], [address] GFR/1.73 sq M.predicted shyla g non-blacks MDRD (S/P/Bld) [Vol rate/Area]Ordered By: Francheska Fast on 12-23-2024 Estimated GFR (MDRD) Non-Af Amer 84 >60 [facility] Comment on above: mL/min/1.73m2 CKD-EP I Creatinine Equation (2020) Glomerular filtration rate ( GFR) estimation/1.73 sq m using serum, plasma, or whole bOrdered By: Francheska Fast on 12-23-2024 GFR/1.73 sq M.predicted among non-blacks MDRD (S/P/Bld) [Vol rate/Area] 84 mL/min/{1.73_m2} >60 [facility] Comment on above: mL/min/1.73m2 CKD-EP I Creatinine Equation (2020) Hematocrit Auto (Bld) [Volum e fraction]Ordered By: Francheska Fast on 12-23-2024 Hematocrit (Bld) [Volume fraction] 42.5 % 40-54 [facility] Hemoglobin measurementOrdere d By: Francheska Fast on 12-23-2024 Hemoglobin (Bld) [Mass/Vol] 15.1 g/dL 13.0-16.5 [facility] Immature granulocytes/100 WB C Auto (Bld)Ordered By: Francheska on 12-23-2024 Immature granulocytes/100 WBC (Bld) 0.200 % 0.0-0.9 [facility] Comment on above: IG% - Immature Granu locytes (promyelocytes, myelocytes and metamyelocytes) > 1% indicates that a LEFT SHIFT is Present. LDL calc ser/plasOrdered By: Francheska on 12-23-2024 Cholesterol in LDL [Mass/Vol] 100 mg/dL [facility] Comment on above: Qexmlwehdw=869-340 m g/dL & Higher Zetk=938 mg/dL or greater LDL Cholesterol, Calculated 100 mg/dL [facility] Comment on above: Kurphexvxm=300-192 m g/dL & Higher Xkqb=461 mg/dL or greater Laboratory - Chemistry and C hemistry - challengeOrdered By: Francheska on 12-23-2024 AST [Catalytic activity/Vol] 25 U/L <38 [facility] Lipid Profileon 12-23-2024 CHOL:HDL 2.52 Normal [facility] Comment on above: Performed By: #### L 100.0100, L506.0200, L500.4100, L503.0106, L500.4050, L506.1001 #### [facility] [address] [place], [address] Cholesterol [Mass/Vol] 198 mg/dL Normal <=200 [facility] Comment on above: Result Comment: Chol esterol level, Desirable <200 mg/dL Borderline high cholesterol 200-239 mg/dL High cholesterol >=240 mg/dL Recommendations of the NCEP Adult Treatment Panel for the following risk-cutoff thresholds for the [place] population. Performed By: #### L 100.0100, L506.0200, L500.4100, L503.0106, L500.4050, L506.1001 #### [facility] [address] [place], [address] Cholesterol in HDL [Mass/Vol] 79 mg/dL Normal [facility] Comment on above: Result Comment: Leny onal Cholesterol Education Program (NCEP) guidelines: <40 mg/dL: Low HDL-cholesterol (major risk factor for CHD) >= 60 mg/dL: High HDL-cholesterol (negative risk factor for CHD) HDL-cholesterol is affected by a number of factors, e.g. smoking, exercise, hormones, sex and age. Performed By: #### L 100.0100, L506.0200, L500.4100, L503.0106, L500.4050, L506.1001 #### [facility] [address] [place], [address] Cholesterol in LDL [Mass/Vol] 100 mg/dL Normal [facility] Comment on above: Result Comment: Bord qebxwy=667-551 mg/dL Higher Sugk=923 mg/dL or greater Performed By: #### L 100.0100, L506.0200, L500.4100, L503.0106, L500.4050, L506.1001 #### [facility] [address] [place], [address] Cholesterol in VLDL [Mass/Vol] 19 mg/dL Normal 5-40 [facility] Comment on above: Performed By: #### L 100.0100, L506.0200, L500.4100, L503.0106, L500.4050, L506.1001 #### [facility] [address] [place], [address] Triglyceride [Mass/Vol] 97 mg/dL Normal [facility] Comment on above: Result Comment: The drugs N-Acetylcysteine and Metamizole may falsely depress this assay. Normal range: <150 mg/dL Borderline High: 150-199 mg/dL High: 200-499 mg/dL Very High: >500 mg/dL Performed By: #### L 100.0100, L506.0200, L500.4100, L503.0106, L500.4050, L506.1001 #### [facility] [address] [place], [address] Lymphocytes Auto (Unsp spec) [#/Vol]Ordered By: Francheska Fast on 12-23-2024 Lymphocytes (Bld) [#/Vol] 1.36 10*3/uL 0.83-4.51 [facility] Lymphocytes/100 WBC Auto (Un sp spec)Ordered By: Francheska Fast on 12-23-2024 Lymphocytes/100 WBC (Bld) 24.8 % 19-41 [facility] MCV (mean corpuscular volume ) determinationOrdered By: Francheska Fast on 12-23-2024 MCV (RBC) [Entitic vol] 96.6 fL High 80-94 [facility] Mean corpuscular hemoglobin (MCH) determinationOrdered By: Francheska Fast on 12-23-2024 MCH (RBC) [Entitic mass] 34.3 pg High 27.0-32.0 [facility] Mean corpuscular hemoglobin concentration (MCHC) determinationOrdered By: Francheska Fast on 12-23-2024 MCHC (RBC) [Mass/Vol] 35.5 g/dL 32-36 [facility] Mean platelet volume determi nationOrdered By: Francheska Fast on 12-23-2024 Platelet mean volume (Bld) [Entitic vol] 11.3 fL 6.2-12.0 [facility] Monocyte percentageOrdered B y: Francheska Fast on 12-23-2024 Monocytes/100 WBC (Bld) 8.4 % 0-10 [facility] Neutrophil percentageOrdered By: Francheska Fast on 12-23-2024 Neutrophils/100 WBC (Bld) 59.1 % 47-70 [facility] Nucleated red blood cell per centageOrdered By: Francheska Fast on 12-23-2024 Nucleated RBC/100 WBC (Bld) [Ratio] 0 % 0-5 [facility] Platelet countOrdered By: De bra Fast on 12-23-2024 Platelets (Bld) [#/Vol] 188 10*3/uL 150-450 [facility] Potassium (Unsp spec) [Mass/ Vol]Ordered By: Francheska Fast on 12-23-2024 Potassium [Moles/Vol] 4.6 mmol/L 3.3-5.1 [facility] Comment on above: Hemolysis present, R esults could be affected. Potassium measurement (mass/ volume)Ordered By: 12-23-2024 Potassium (Unsp spec) [Mass/Vol] 4.6 mmol/L 3.3-5.1 [facility] Comment on above: Hemolysis present, R esults could be affected. RBC Auto (Bld) [#/Vol]Ordere d By: 12-23-2024 RBC (Bld) [#/Vol] 4.40 10*6/uL Low 4.6-6.2 [facility] Screening total cholesterol/ high density lipoprotein (HDL) cholesterol ratioOrdered By: 12-23-2024 Cholesterol.total/Cho lesterol in HDL [Mass ratio] 2.52 {ratio} [facility] Serum creatinine measurement (mass/volume)Ordered By: 12-23-2024 Creatinine [Mass/Vol] 0.93 mg/dL 0.70-1.20 [facility] Serum globulin measurementOr dered By: 12-23-2024 Globulin (S) [Mass/Vol] 2.6 g/dL 2.2-4.2 [facility] Serum glucose measurement (m ass/volume)Ordered By: 12-23-2024 Glucose [Mass/Vol] 83 mg/dL 70-99 [facility] Serum or plasma alanine nichole otransferase (ALT) measurementOrdered By: 12-23-2024 ALT [Catalytic activity/Vol] 19 U/L <47 [facility] Serum or plasma albumin pauline urement (mass/volume)Ordered By: 12-23-2024 Albumin [Mass/Vol] 4.4 g/dL 3.4-4.8 [facility] Serum or plasma albumin/glob ulin mass ratioOrdered By: 12-23-2024 Albumin/Globulin [Mass ratio] 1.7 {ratio} 0.9-2.4 [facility] Serum or plasma alkaline fabby sphatase measurementOrdered By: 12-23-2024 ALP [Catalytic activity/Vol] 82 U/L 40-129 [facility] Serum or plasma calcium pauline urement (mass/volume)Ordered By: Francheska Fast on 12-23-2024 Calcium [Mass/Vol] 9.5 mg/dL 7.6-11.0 [facility] Serum or plasma cholesterol in HDL measurement (mass/volume)Ordered By: Francheska Fast on 12-23-2024 Cholesterol in HDL [Mass/Vol] 79 mg/dL >40 [facility] Comment on above: National Cholesterol Education Program (NCEP) guidelines:<40 mg/dL: Low HDL-cholesterol (major risk factor for CHD)>= 60 mg/dL: High HDL-cholesterol (negative risk factor for CHD)HDL-cholesterol is affected by a number of factors, e.g. smoking, exercise, hormones, sex and age. Serum or plasma cholesterol measurement (mass/volume)Ordered By: Francheska Fast on 12-23-2024 Cholesterol [Mass/Vol] 198 mg/dL <201 [facility] Comment on above: Cholesterol level, D esirable <200 mg/dLBorderline high cholesterol 200-239 mg/dLHigh cholesterol >=240 mg/dLRecommendations of the NCEP Adult Treatment Panel for the following risk-cutoff thresholds for the [place] population. Serum or plasma urea nitroge n measurement (mass/volume)Ordered By: Francheska Fast on 12-23-2024 Urea nitrogen [Mass/Vol] 21 mg/dL High 4-19 [facility] Sodium levelOrdered By: Debr a Fast on 12-23-2024 Sodium [Moles/Vol] 139 mmol/L 133-145 [facility] Total proteinOrdered By: Faby ra Fast on 12-23-2024 Protein [Mass/Vol] 7.0 g/dL 5.9-8.4 [facility] Triglycerides measurementOrd ered By: Francheska Fast on 12-23-2024 Triglyceride [Mass/Vol] 97 mg/dL <199 [facility] Comment on above: The drugs N-Acetylcy steine and Metamizole may falsely depress this assay. Normal range: <150 mg/dLBorderline High: 150-199 mg/dLHigh: 200-499 mg/dLVery High: >500 mg/dL Vitamin B12on 12-23-2024 Cobalamin (Vitamin B12) [Mass/Vol] 3130 pg/mL High 180-914 [facility] Comment on above: Performed By: #### L 100.0100, L506.0200, L500.4100, L503.0106, L500.4050, L506.1001 ####[facility] [address] [place], [address] Vitamin B12 ser/plasOrdered By: Francheska Alonzo on 12-23-2024 Cobalamin (Vitamin B12) [Mass/Vol] 3130 pg/mL High 180-914 [facility] Vitamin D, 25-hydroxyOrdered By: Francheska Alonzo on 12-23-2024 Vitamin D 25-Hydroxy 99.4 ng/mL 30-100 [facility] Comment on above: Vitamin D StatusDefi ciency: <20 ng/mL (50nmol/L)Insufficiency: 20-30 ng/mL (50-75 nmol/L)Sufficiency: 30-100 ng/mL (75-250 nmol/L)Toxicity: >100 ng/mL (>250 nmol/L) Vitamin D,25 Hydroxyon 12-23 Vitamin D 25-OH 99.4 ng/mL Normal 30-100 [facility] Comment on above: Result Comment: Lore min D Status Deficiency: <20 ng/mL (50nmol/L) Insufficiency: 20-30 ng/mL (50-75 nmol/L) Sufficiency: 30-100 ng/mL (75-250 nmol/L) Toxicity: >100 ng/mL (>250 nmol/L) Performed By: #### L 100.0100, L506.0200, L500.4100, L503.0106, L500.4050, L506.1001 ####[facility] [address] [place], [address] White blood cell (WBC) count Ordered By: Francheska Alonzo on 12-23-2024 WBC (Bld) [#/Vol] 5.5 10*3/uL 4.4-11.0 [facility] Gastroenterology Visit Repor ton 12-17-2024 Gastroenterology Visit Report [facility] [address] [place] [address] OFFICE VISIT Date of Service: 12/17/24 MR#: [id number] Acct: [id number] Name: JUNG ABURTO Rep #: [id number] : 1945 Provider: David Parra DO Age/Sex: 79/M Location: [facility] Status: Signed Intake Vital Signs 05/10/24 10:25 [...] 12/17/24 History mg-1,916 mg-1,000 mg efferves tab (Maryjane-Morrow Original) sulfamethoxazole 800 1 tab PO DAILY [...] any questions or concerns at this time. REPLACED BY [facility] Medical History Normal stress echocardiogram Gastritis Yates [...] Moderate to marked diffuse fecal retention. OV 1..25 pt reports that [...] he is able to keep him symptoms "at bay". 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 ROS Const Constitutional: Positive for fatigue; No fever(s) or weight change ENT ENT: Positive for difficulty swallowing Gastro GI: Positive for heartburn and difficulty swallowing; No abdominal pain, belching, bloating, ch (more content not included)... Normal [facility] Gastroenterology Visit Repor ton 10-01-2024 Gastroenterology Visit Report [facility] Gastroenterology [address] [place] [address] OFFICE VISIT Date of Service: 10/01/24 MR#: [id number] Acct: [id number] Name: JUNG ABURTO Rep #: [id number] : 1945 Provider: David Parra DO Age/Sex: 79/M Location: [facility] Status: Signed Intake Vital Signs 05/10/24 [...] 10/01/24 History mg-1,916 mg-1,000 mg efferves tab (Maryjane-Morrow Original) sulfamethoxazole 800 1 tab PO DAILY [...] the first portion of the duodenum. OV 03.20.24 pt reports that he is feeling well [...] Tang/Lymp Hematologic/Lymphatic (more content not included)... Normal [facility] CBC W/Diff, Automatedon 10-2 Absolute Lymph 1.27 X10 3/uL Normal 0.83-4.51 [facility] Comment on above: Performed By: #### L 500.4050, L506.1000, L100.0100, L500.4100 ####[facility] [address] [place], [address] Absolute Neut 4.2 X10 3/uL Normal 2.0-7.7 [facility] Comment on above: Performed By: #### L 500.4050, L506.1000, L100.0100, L500.4100 ####[facility] [address] [place], [address] Basophils/100 WBC (Bld) 0.8 % Normal 0-1 [facility] Comment on above: Performed By: #### L 500.4050, L506.1000, L100.0100, L500.4100 ####[facility] [address] [place], [address] Eosinophils/100 WBC (Bld) 4.9 % Normal 0-5 [facility] Comment on above: Performed By: #### L 500.4050, L506.1000, L100.0100, L500.4100 ####[facility] [address] [place], [address] Erythrocyte distribution width (RBC) [Ratio] 12.8 % Normal 11.6-14.6 [facility] Comment on above: Performed By: #### L 500.4050, L506.1000, L100.0100, L500.4100 ####[facility] [address] [place], [address] Hematocrit (Bld) [Volume fraction] 43.9 % Normal 40-54 [facility] Comment on above: Performed By: #### L 500.4050, L506.1000, L100.0100, L500.4100 ####[facility] [address] [place], [address] Hemoglobin (Bld) [Mass/Vol] 15.1 g/dL Normal 13.0-16.5 [facility] Comment on above: Performed By: #### L 500.4050, L506.1000, L100.0100, L500.4100 ####[facility] [address] [place], [address] IG% 0.200 Normal 0.0-0.9 [facility] Comment on above: Result Comment: IG% - Immature Granulocytes (promyelocytes, myelocytes and metamyelocytes) > 1% indicates that a LEFT SHIFT is Present. Performed By: #### L 500.4050, L506.1000, L100.0100, L500.4100 ####[facility] [address] [place], [address] Lymphocytes/100 WBC (Bld) 20.1 % Normal 19-41 [facility] Comment on above: Performed By: #### L 500.4050, L506.1000, L100.0100, L500.4100 ####[facility] [address] [place], [address] MCH (RBC) [Entitic mass] 33.6 pg High 27.0-32.0 [facility] Comment on above: Performed By: #### L 500.4050, L506.1000, L100.0100, L500.4100 ####[facility] [address] [place], [address] MCHC (RBC) [Mass/Vol] 34.4 g/dL Normal 32-36 [facility] Comment on above: Performed By: #### L 500.4050, L506.1000, L100.0100, L500.4100 ####[facility] [address] [place], [address] MCV (RBC) [Entitic vol] 97.6 fL High 80-94 [facility] Comment on above: Performed By: #### L 500.4050, L506.1000, L100.0100, L500.4100 ####[facility] [address] [place], [address] Monocytes/100 WBC (Bld) 7.8 % Normal 0-10 [facility] Comment on above: Performed By: #### L 500.4050, L506.1000, L100.0100, L500.4100 ####[facility] [address] [place], [address] Neutrophils/100 WBC (Bld) 66.2 % Normal 47-70 [facility] Comment on above: Performed By: #### L 500.4050, L506.1000, L100.0100, L500.4100 ####[facility] [address] [place], [address] Nucleated RBC (Bld) [#/Vol] 0 10*3/uL Normal 0-5 [facility] Comment on above: Performed By: #### L 500.4050, L506.1000, L100.0100, L500.4100 ####[facility] [address] [place], [address] Platelet mean volume (Bld) [Entitic vol] 10.8 fL Normal 6.2-12.0 [facility] Comment on above: Performed By: #### L 500.4050, L506.1000, L100.0100, L500.4100 ####[facility] [address] [place], [address] Platelets (Bld) [#/Vol] 205 10*3/uL Normal 150-450 [facility] Comment on above: Performed By: #### L 500.4050, L506.1000, L100.0100, L500.4100 ####[facility] [address] [place], [address] RBC (Bld) [#/Vol] 4.50 10*6/uL Low 4.6-6.2 [facility] Comment on above: Performed By: #### L 500.4050, L506.1000, L100.0100, L500.4100 ####[facility] [address] [place], [address] RDW SD 45.9 fl High 35.1-43.9 [facility] Comment on above: Performed By: #### L 500.4050, L506.1000, L100.0100, L500.4100 ####[facility] [address] [place], [address] WBC (Bld) [#/Vol] 6.3 10*3/uL Normal 4.4-11.0 [facility] Comment on above: Performed By: #### L 500.4050, L506.1000, L100.0100, L500.4100 ####[facility] [address] [place], [address] Comprehensive Metabolic Prof ilon 07-02-2024 Albumin [Mass/Vol] 3.9 g/dL Normal 3.2-5.0 [facility] Comment on above: Performed By: #### L 500.4050, L506.1000, L100.0100, L500.4100 ####[facility] [address] [place], [address] Albumin/Globulin [Mass ratio] 1.2 {ratio} Normal 0.9-2.4 [facility] Comment on above: Performed By: #### L 500.4050, L506.1000, L100.0100, L500.4100 ####[facility] [address] [place], [address] ALK P 75 U/L Normal 45-117 [facility] Comment on above: Performed By: #### L 500.4050, L506.1000, L100.0100, L500.4100 ####[facility] [address] [place], [address] ALT [Catalytic activity/Vol] 23 U/L Normal 16-61 [facility] Comment on above: Performed By: #### L 500.4050, L506.1000, L100.0100, L500.4100 ####[facility] [address] [place], [address] AST [Catalytic activity/Vol] 20 U/L Normal 15-37 [facility] Comment on above: Performed By: #### L 500.4050, L506.1000, L100.0100, L500.4100 ####[facility] [address] [place], [address] Bilirubin [Mass/Vol] 0.50 mg/dL Normal 0.20-1.00 [facility] Comment on above: Result Comment: For patients on eltrombopag therapy, use of Dimension [place] TBIL is not recommended. Performed By: #### L 500.4050, L506.1000, L100.0100, L500.4100 ####[facility] [address] [place], [address] BUN/CRE 29.8 RATIO High 10-20 [facility] Comment on above: Performed By: #### L 500.4050, L506.1000, L100.0100, L500.4100 ####[facility] [address] [place], [address] CA,Total 9.3 mg/dL Normal 8.5-10.1 [facility] Comment on above: Performed By: #### L 500.4050, L506.1000, L100.0100, L500.4100 ####[facility] [address] [place], [address] Chloride [Moles/Vol] 107 mmol/L Normal 98-107 [facility] Comment on above: Performed By: #### L 500.4050, L506.1000, L100.0100, L500.4100 ####[facility] [address] [place], [address] CO2 [Moles/Vol] 27.0 mmol/L Normal 21.0-32.0 [facility] Comment on above: Performed By: #### L 500.4050, L506.1000, L100.0100, L500.4100 ####[facility] [address] [place], [address] Creatinine [Mass/Vol] 0.84 mg/dL Normal 0.70-1.30 [facility] Comment on above: Result Comment: The validity of the calculated GFR GFRAA in patients over 70 years has not been determined. Clinical correlation is essential. Performed By: #### L 500.4050, L506.1000, L100.0100, L500.4100 ####[facility] [address] [place], [address] EST GFR - AA 113 mL/min Normal >60 [facility] Comment on above: Result Comment: Afri can Maltese GFR Calc Performed By: #### L 500.4050, L506.1000, L100.0100, L500.4100 ####[facility] [address] [place], [address] GAP 5 Normal 5-15 [facility] Comment on above: Performed By: #### L 500.4050, L506.1000, L100.0100, L500.4100 ####[facility] [address] [place], [address] GFR/1.73 sq M.predicted among non-blacks MDRD (S/P/Bld) [Vol rate/Area] 94 mL/min/{1.73_m2} Normal >60 [facility] Comment on above: Result Comment: Non- GFR Calc Performed By: #### L 500.4050, L506.1000, L100.0100, L500.4100 ####[facility] [address] [place], [address] Globulin (S) [Mass/Vol] 3.2 g/dL Normal 2.2-4.2 [facility] Comment on above: Performed By: #### L 500.4050, L506.1000, L100.0100, L500.4100 ####[facility] [address] [place], [address] Glucose [Mass/Vol] 89 mg/dL Normal 74-106 [facility] Comment on above: Performed By: #### L 500.4050, L506.1000, L100.0100, L500.4100 ####[facility] [address] [place], [address] Potassium [Moles/Vol] 4.2 mmol/L Normal 3.5-5.1 [facility] Comment on above: Performed By: #### L 500.4050, L506.1000, L100.0100, L500.4100 ####[facility] [address] [place], [address] Sodium [Moles/Vol] 139 mmol/L Normal 136-145 [facility] Comment on above: Performed By: #### L 500.4050, L506.1000, L100.0100, L500.4100 ####[facility] [address] [place], [address] T PROT 7.1 g/dL Normal 6.4-8.2 [facility] Comment on above: Performed By: #### L 500.4050, L506.1000, L100.0100, L500.4100 ####[facility] [address] [place], [address] Urea nitrogen [Mass/Vol] 25 mg/dL High 7-18 [facility] Comment on above: Performed By: #### L 500.4050, L506.1000, L100.0100, L500.4100 ####[facility] [address] [place], [address] Lipid Profileon 07-02-2024 Cholesterol [Mass/Vol] 201 mg/dL High 200 [facility] Comment on above: Result Comment: <200 mg/dL Desirable 200-240 mg/dL Borderline >240 mg/dL High Risk Performed By: #### L 500.4050, L506.1000, L100.0100, L500.4100 ####[facility] [address] [place], [address] Cholesterol in HDL [Mass/Vol] 85 mg/dL Normal [facility] Comment on above: Result Comment: The drugs N-Acetylcysteine and Metamizole may falsely depress this assay. Reference Range HDL <40 mg/dL Low HDL Cholesterol HDL >or= 60 mg/dL High HDL Cholesterol Performed By: #### L 500.4050, L506.1000, L100.0100, L500.4100 ####[facility] [address] [place], [address] Cholesterol in LDL [Mass/Vol] 103 mg/dL Normal 0-130 [facility] Comment on above: Performed By: #### L 500.4050, L506.1000, L100.0100, L500.4100 ####[facility] [address] [place], [address] Cholesterol in VLDL [Mass/Vol] 13 mg/dL Normal 5-40 [facility] Comment on above: Performed By: #### L 500.4050, L506.1000, L100.0100, L500.4100 ####[facility] [address] [place], [address] Triglyceride [Mass/Vol] 63 mg/dL Normal [facility] Comment on above: Result Comment: The drugs N-Acetylcysteine and Metamizole may falsely depress this assay. Serum Triglycerides Reference Interval Normal <150 mg/dL Borderline high 150 - 199 mg/dL High 200 - 499 mg/dL Very High > or = 500 mg/dL Performed By: #### L 500.4050, L506.1000, L100.0100, L500.4100 ####[facility] [address] [place], [address] Vitamin D,25 Hydroxyon 07-02 Vitamin D 25-OH 38.5 ng/mL Normal [facility] Comment on above: Result Comment: Lore min D 25(OH) Status Range Deficiency <20 ng/mL (50nmol/L) Insufficiency 20 - 30 ng/mL (50 - 75 nmol/L) Sufficiency 30 - 100 ng/mL (75 - 250 nmol/L) Toxicity >100 ng/mL (>250 nmol/L) Performed By: #### L 500.4050, L506.1000, L100.0100, L500.4100 ####[facility] [address] [place], [address] CRPon 06-22-2024 C-REACTIVE PROT < 2.90 Normal 0.0-3.0 [facility] Comment on above: Result Comment: C-Re active Protein (CRP) provides useful information for the diagnosis, therapy and monitoring of inflammatory processes and associated diseases. For the evaluation of Relative Risk for Cardiovascular Disease, a High Sensitivity CRP (HSCRP) should be ordered. Performed By: #### L 101.9900, L501.6710 ####[facility] [address] [place], [address] Erythrocyte Sed Rateon 06-22 SED RATE 2 mm/hr Normal 0-20 [facility] Comment on above: Performed By: #### L 101.9900, L501.6710 ####[facility] [address] [place], [address] Culture, Blood (WB)on 2023 CUB Blood cultures x2, f rom two different sites No growth in 5 days. Normal [facility] Comment on above: Performed By: #### M 200.1000 ####[facility] [address] [place], [address] Urine Cultureon 05-11-2024 URC Culture exhibits no growth. Normal [facility] Comment on above: Performed By: #### L 400.0001, M100.2200 ####[facility] [address] [place], [place], [address] Abdomen/Pelvis W IV Cont ONL Yon 05-10-2024 Abdomen/Pelvis W IV Cont ONLY [facility] Imaging Services [address] [place] [address] Abdomen/Pelvis W IV Cont ONLY MR#: [id number] Acct: [id number] Name: JUNG ABURTO Rep #: [id number] : 1945 M 79 From: George rosen MD PCP: Dr. Francheska Alonzo DO Status: DEP ER Study: Abdomen/Pelvis W IV Cont ONLY Date of Exam: Exam# [id number] Ordering Dr: Mal Aleman DO ADDENDUM by Dr. George Garsia MD on 05/18/24 at 1541 ==== ADDENDUM ==== [id number] No follow-up is recommended for right renal cyst. Electronically Signed: George Garsia MD at 15:44 EDT , 05/18/24 1549 Date cc: Dr. Mal Aleman DO; Dr. Francheska Alonzo DO * Signed ADDENDUM by Dr. George Garsia MD on 05/18/[address]/Abdomen/Pelvis W IV Cont ONLY IMPRESSION: undefined 05/18/24 1551 Date cc: Dr. Mal Aleman, DO; Dr. Francheska Alonzo, DO * Signed [id number] EXAM: CT ABDOMEN AND PELVIS WITH INTRAVENOUS [...] Mal Aleman, DO; Dr. Francheska Alonzo, DO Curator: Signed Normal [facility] CBC W/Diff, Automatedon 090 Absolute Lymph 1.13 X10 3/uL Normal 0.83-4.51 [facility] Comment on above: Performed By: #### L 500.4050, L100.0100 ####[facility] [address] [place], [address] Absolute Neut 14.4 X10 3/uL High 2.0-7.7 [facility] Comment on above: Performed By: #### L 500.4050, L100.0100 ####[facility] [address] [place], [address] Basophils/100 WBC (Bld) 0.3 % Normal 0-1 [facility] Comment on above: Performed By: #### L 500.4050, L100.0100 ####[facility] [address] [place], [address] Eosinophils/100 WBC (Bld) 0.4 % Normal 0-5 [facility] Comment on above: Performed By: #### L 500.4050, L100.0100 ####[facility] [address] [place], [address] Erythrocyte distribution width (RBC) [Ratio] 12.7 % Normal 11.6-14.6 [facility] Comment on above: Performed By: #### L 500.4050, L100.0100 ####[facility] [address] [place], [address] Hematocrit (Bld) [Volume fraction] 42.8 % Normal 40-54 [facility] Comment on above: Performed By: #### L 500.4050, L100.0100 ####[facility] [address] [place], [address] Hemoglobin (Bld) [Mass/Vol] 14.6 g/dL Normal 13.0-16.5 [facility] Comment on above: Performed By: #### L 500.4050, L100.0100 ####[facility] [address] [place], [address] IG% 0.500 Normal 0.0-0.9 [facility] Comment on above: Result Comment: IG% - Immature Granulocytes (promyelocytes, myelocytes and metamyelocytes) > 1% indicates that a LEFT SHIFT is Present. Performed By: #### L 500.4050, L100.0100 ####[facility] [address] [place], [address] Lymphocytes/100 WBC (Bld) 6.7 % Low 19-41 [facility] Comment on above: Performed By: #### L 500.4050, L100.0100 ####[facility] [address] [place], [address] MCH (RBC) [Entitic mass] 34.0 pg High 27.0-32.0 [facility] Comment on above: Performed By: #### L 500.4050, L100.0100 ####[facility] [address] [place], [address] MCHC (RBC) [Mass/Vol] 34.1 g/dL Normal 32-36 [facility] Comment on above: Performed By: #### L 500.4050, L100.0100 ####[facility] [address] [place], [address] MCV (RBC) [Entitic vol] 99.5 fL High 80-94 [facility] Comment on above: Performed By: #### L 500.4050, L100.0100 ####[facility] [address] [place], [address] Monocytes/100 WBC (Bld) 6.7 % Normal 0-10 [facility] Comment on above: Performed By: #### L 500.4050, L100.0100 ####[facility] [address] [place], [address] Neutrophils/100 WBC (Bld) 85.4 % High 47-70 [facility] Comment on above: Performed By: #### L 500.4050, L100.0100 ####[facility] [address] [place], [address] Nucleated RBC (Bld) [#/Vol] 0 10*3/uL Normal 0-5 [facility] Comment on above: Performed By: #### L 500.4050, L100.0100 ####[facility] [address] [place], [address] Platelet mean volume (Bld) [Entitic vol] 10.9 fL Normal 6.2-12.0 [facility] Comment on above: Performed By: #### L 500.4050, L100.0100 ####[facility] [address] [place], [address] Platelets (Bld) [#/Vol] 154 10*3/uL Normal 150-450 [facility] Comment on above: Performed By: #### L 500.4050, L100.0100 ####[facility] [address] [place], [address] RBC (Bld) [#/Vol] 4.30 10*6/uL Low 4.6-6.2 [facility] Comment on above: Performed By: #### L 500.4050, L100.0100 ####[facility] [address] [place], [address] RDW SD 47.3 fl High 35.1-43.9 [facility] Comment on above: Performed By: #### L 500.4050, L100.0100 ####[facility] [address] [place], [address] WBC (Bld) [#/Vol] 16.9 10*3/uL High 4.4-11.0 [facility] Comment on above: Performed By: #### L 500.4050, L100.0100 ####[facility] [address] [place], [address] Comprehensive Metabolic Prof ilon 05-10-2024 Albumin [Mass/Vol] 3.7 g/dL Normal 3.2-5.0 [facility] Comment on above: Performed By: #### L 500.4050, L100.0100 ####[facility] [address] [place], [address] Albumin/Globulin [Mass ratio] 1.1 {ratio} Normal 0.9-2.4 [facility] Comment on above: Performed By: #### L 500.4050, L100.0100 ####[facility] [address] [place], [address] ALK P 74 U/L Normal 45-117 [facility] Comment on above: Performed By: #### L 500.4050, L100.0100 ####[facility] [address] [place], [address] ALT [Catalytic activity/Vol] 22 U/L Normal 16-61 [facility] Comment on above: Performed By: #### L 500.4050, L100.0100 ####[facility] [address] [place], [address] AST [Catalytic activity/Vol] 16 U/L Normal 15-37 [facility] [facility] Comment on above: Performed By: #### L [id number], L100.0100 ####[facility] [address] [place], [address] Bilirubin [Mass/Vol] 0.50 mg/dL Normal 0.20-1.00 [facility] Comment on above: Result Comment: For patients on eltrombopag therapy, use of Dimension [place] TBIL is not recommended. Performed By: #### L [id number], L100.0100 ####[facility] [address] [place], [address] BUN/CRE 28.1 RATIO High 10-20 [facility] Comment on above: Performed By: #### L [id number], L100.0100 ####[facility] [address] [place], [address] CA,Total 9.1 mg/dL Normal 8.5-10.1 [facility] Comment on above: Performed By: #### L [id number], L100.0100 ####[facility] [address] [place], [address] Chloride [Moles/Vol] 105 mmol/L Normal 98-107 [facility] Comment on above: Performed By: #### L [id number], [id number] ####[facility] [address] [place], [address] CO2 [Moles/Vol] 26.0 mmol/L Normal 21.0-32.0 [facility] Comment on above: Performed By: #### L [id number], L100.0100 ####[facility] [address] [place], [address] Creatinine [Mass/Vol] 0.86 mg/dL Normal 0.70-1.30 [facility] Comment on above: Result Comment: The validity of the calculated GFR GFRAA in patients over 70 years has not been determined. Clinical correlation is essential. Performed By: #### L [id number], L100.0100 ####[facility] [address] [place], [address] ECRCL 74.62 ml/min Normal [facility] Comment on above: Performed By: #### L [id number], L100.0100 ####[facility] [address] [place], [address] EST GFR - AA 111 mL/min Normal >60 [facility] Comment on above: Result Comment: Afri can Maltese GFR Calc Performed By: #### L [id number], L100.0100 ####[facility] [address] [place], [address] GAP 6 Normal 5-15 [facility] Comment on above: Performed By: #### L [id number], L100.0100 ####[facility] [address] [place], [address] GFR/1.73 sq M.predicted among non-blacks MDRD (S/P/Bld) [Vol rate/Area] 92 mL/min/{1.73_m2} Normal >60 [facility] Comment on above: Result Comment: Non- GFR Calc Performed By: #### L [id number], L100.0100 ####[facility] [address] [place], [address] Globulin (S) [Mass/Vol] 3.5 g/dL Normal 2.2-4.2 [facility] Comment on above: Performed By: #### L 500.4050, L100.0100 ####[facility] [address] [place], [address] Glucose [Mass/Vol] 131 mg/dL High 74-106 [facility] Comment on above: Result Comment: Fast ing Glucose result greater than or equal to 126 mg/dL suggests DIABETES MELLITUS per A.D.A. criteria. Performed By: #### L [id number], L100.0100 ####[facility] [address] [place], [address] Potassium [Moles/Vol] 4.0 mmol/L Normal 3.5-5.1 [facility] Comment on above: Performed By: #### L [id number], L100.0100 ####[facility] [address] [place], [address] Sodium [Moles/Vol] 137 mmol/L Normal 136-145 [facility] Comment on above: Performed By: #### L [id number], L100.0100 ####[facility] [address] [place], [address] T PROT 7.2 g/dL Normal 6.4-8.2 [facility] Comment on above: Performed By: #### L [id number], L100.0100 ####[facility] [address] [place], [address] Urea nitrogen [Mass/Vol] 24 mg/dL High 7-18 [facility] Comment on above: Performed By: #### L 500.4050, L100.0100 ####[facility] [address] [place], [address] Emergency Department Summary on 05-10-2024 Emergency Department Summary [facility] Medical Records Department [address] [place] [address] Emergency Department Summary 05/10/24 MR#: [id number] Acct: [id number] Name: JUNG ABURTO Rep #: [id number] : 1945 79 From: Mal Aleman DO [...] He denies any cough or URI/respiratory illness. [facility] Medical History Normal stress echocardiogram Gastritis Yates [...] 137/71 H (more content not included)... Normal [facility] Urinalysis, Completeon 05-10 WBC 10-25 SEEN Normal 0-5 [facility] Comment on above: Order Comment: CLEAN CATCH Performed By: #### L 400.0001, M100.2200 ####[facility] [address] [place], [address] BACTERIA 0 SEEN Normal None Seen [facility] Comment on above: Order Comment: CLEAN CATCH Performed By: #### L 400.0001, M100.2200 ####[facility] [address] [place], [address] EPI,SQUAMOUS 0 SEEN Normal 0-5 [facility] Comment on above: Order Comment: CLEAN CATCH Performed By: #### L 400.0001, M100.2200 ####[facility] [address] [place], [address] Mucus Ql (Urine sed) 0 SEEN Normal [facility] Comment on above: Order Comment: CLEAN CATCH Performed By: #### L 400.0001, [id number] ####[facility] [address] [place], [address] RBC 0 SEEN Normal 0-5 [facility] Comment on above: Order Comment: CLEAN CATCH Performed By: #### L 400.0001, [id number] ####[facility] [address] [place], [address] Lipid Profileon 04-02-2024 Cholesterol [Mass/Vol] 198 mg/dL Normal 200 [facility] Comment on above: Order Comment: PSA W /REFLEX FREE (PER ORDER) Result Comment: <200 mg/dL Desirable 200-240 mg/dL Borderline >240 mg/dL High Risk Performed By: #### L 501.9910, L500.4100, L506.1000 #### [facility] [address] [place], [address] Cholesterol in HDL [Mass/Vol] 81 mg/dL Normal [facility] Comment on above: Order Comment: PSA W /REFLEX FREE (PER ORDER) Result Comment: The drugs N-Acetylcysteine and Metamizole may falsely depress this assay. Reference Range HDL <40 mg/dL Low HDL Cholesterol HDL >or= 60 mg/dL High HDL Cholesterol Performed By: #### L 501.9910, L500.4100, L506.1000 #### [facility] [address] [place], [address] Cholesterol in LDL [Mass/Vol] 102 mg/dL Normal 0-130 [facility] Comment on above: Order Comment: PSA W /REFLEX FREE (PER ORDER) Performed By: #### L 501.9910, L500.4100, L506.1000 #### [facility] [address] [place], [address] Cholesterol in VLDL [Mass/Vol] 15 mg/dL Normal 5-40 [facility] Comment on above: Order Comment: PSA W /REFLEX FREE (PER ORDER) Performed By: #### L 501.9910, L500.4100, L506.1000 #### [facility] [address] [place], [address] Triglyceride [Mass/Vol] 76 mg/dL Normal [facility] Comment on above: Order Comment: PSA W /REFLEX FREE (PER ORDER) Result Comment: The drugs N-Acetylcysteine and Metamizole may falsely depress this assay. Serum Triglycerides Reference Interval Normal <150 mg/dL Borderline high 150 - 199 mg/dL High 200 - 499 mg/dL Very High > or = 500 mg/dL Performed By: #### L 501.9910, L500.4100, L506.1000 #### [facility] [address] [place], [address] PSA,Total - Annual Screenon 04-02-2024 PSA,TOT SCREEN 1.35 ng/mL Normal 0.00-4.00 [facility] Comment on above: Order Comment: PSA W /REFLEX FREE (PER ORDER) Result Comment: This test was performed using the TPSA assay method for the [employer] chemistry system. Values obtained with different assay methods cannot be used interchangably. When changing PSA assays in the course of monitoring a patient, additional sequential testing should be carried out to confirm baseline values. Performed By: #### L 501.9910, L500.4100, L506.1000 #### [facility] [address] [place], [place], [address] Vitamin D,25 Hydroxyon 04-02 Vitamin D 25-OH 55.7 ng/mL Normal [facility] Comment on above: Order Comment: PSA W /REFLEX FREE (PER ORDER) Result Comment: Lore min D 25(OH) Status Range Deficiency <20 ng/mL (50nmol/L) Insufficiency 20 - 30 ng/mL (50 - 75 nmol/L) Sufficiency 30 - 100 ng/mL (75 - 250 nmol/L) Toxicity >100 ng/mL (>250 nmol/L) Performed By: #### L 501.9910, L500.4100, L506.1000 #### [facility] [address] [place], [place], [id number] Absolute lymphocyte countOrd ered By: Francheska Clinton on 12-25-2023 Lymphocytes Auto (Unsp spec) [#/Vol] 1.33 10*3/uL 0.83-4.51 [facility] Automated lymphocyte count a s percentage of total leukocytesOrdered By: Francheska Fast on 12-25-2023 Lymphocytes/100 WBC Auto (Unsp spec) 22.1 % 19-41 [facility] Basophil percentageOrdered B y: Francheska Fast on 12-25-2023 Basophils/100 WBC (Bld) 1.2 % 0-1 [facility] Bilirubin [Mass/Vol] 0.30 mg/dL 0.20-1.00 [facility] Comment on above: For patients on eltr ombopag therapy, use of Dimension [place] TBIL is not recommended. Chloride [Moles/Vol] 106 mmol/L 98-107 [facility] Cholesterol [Mass/Vol] 198 mg/dL <200 [facility] Comment on above: <200 mg/dL Desirable 200-240 mg/dL Borderline >240 mg/dL High Risk Eosinophils/100 WBC (Bld) 11.1 % 0-5 [facility] Glucose [Mass/Vol] 91 mg/dL 74-106 [facility] Hemoglobin (Bld) [Mass/Vol] 15.2 g/dL 13.0-16.5 [facility] Monocytes/100 WBC (Bld) 8.1 % 0-10 [facility] Neutrophils (Bld) [#/Vol] 3.4 10*3/uL 2.0-7.7 [facility] Neutrophils/100 WBC (Bld) 57.0 % 47-70 [facility] Potassium [Moles/Vol] 4.6 mmol/L 3.5-5.1 [facility] Protein [Mass/Vol] 7.2 g/dL 6.4-8.2 [facility] Sodium [Moles/Vol] 137 mmol/L 136-145 [facility] Triglyceride [Mass/Vol] 75 mg/dL <199 [facility] Comment on above: The drugs N-Acetylcy steine and Metamizole may falsely depress this assay.Serum Triglycerides Reference Interval Normal <150 mg/dL Borderline high 150 - 199 mg/dL High 200 - 499 mg/dL Very High > or = 500 mg/dL WBC (Bld) [#/Vol] 6.0 10*3/uL 4.4-11.0 [facility] Culture, urineOrdered By: Thorne Fast on 12-25-2023 Bacteria identified Cx Nom (U) Culture exhibits no growth. [facility] Determination of erythrocyte mean corpuscular volume (MCV)Ordered By: Francheska Fast on 12-25-2023 MCV (RBC) [Entitic vol] 98.4 fL 80-94 [facility] Erythrocyte distribution wid th ratioOrdered By: Francheska Fast on 12-25-2023 Erythrocyte distribution width (RBC) [Ratio] 12.5 % 11.6-14.6 [facility] Erythrocyte distribution wid th standard deviationOrdered By: [facility] Fast on 12-25-2023 Erythrocyte distribution width (RBC) [Entitic vol] 45.2 fL 35.1-43.9 [facility] Hematocrit Auto (Bld) [Volum e fraction]Ordered By: [facility] on 12-25-2023 Hematocrit (Bld) [Volume fraction] 43.7 % 40-54 [facility] Immature granulocytes/100 WB C Auto (Bld)Ordered By: [facility] on 12-25-2023 Immature granulocytes/100 WBC (Bld) 0.500 % 0.0-0.9 [facility] Comment on above: IG% - Immature Granu locytes (promyelocytes, myelocytes and metamyelocytes) > 1% indicates that a LEFT SHIFT is Present. Laboratory - Chemistry and C hemistry - challengeOrdered By: [facility] on 12-25-2023 Albumin/Globulin [Mass ratio] 1.2 {ratio} 0.9-2.4 [facility] ALP [Catalytic activity/Vol] 75 U/L 45-117 [facility] ALT [Catalytic activity/Vol] 25 U/L 16-61 [facility] Cholesterol in HDL [Mass/Vol] 75 mg/dL >40 [facility] Comment on above: The drugs N-Acetylcy steine and Metamizole may falsely depress this assay. Reference Range HDL <40 mg/dL Low HDL Cholesterol HDL >or= 60 mg/dL High HDL Cholesterol Cholesterol in LDL [Mass/Vol] 108 mg/dL 0-130 [facility] CO2 [Moles/Vol] 29.0 mmol/L 21.0-32.0 [facility] Globulin (S) [Mass/Vol] 3.2 g/dL 2.2-4.2 [facility] Urea nitrogen/Creatinine [Mass ratio] 31.5 mg/mg 10-20 [facility] Laboratory - Hematology and Cell countsOrdered By: [facility] on 12-25-2023 MCH (RBC) [Entitic mass] 34.2 pg 27.0-32.0 [facility] MCHC (RBC) [Mass/Vol] 34.8 g/dL 32-36 [facility] Nucleated RBC/100 WBC (Bld) [Ratio] 0 % 0-5 [facility] Platelet mean volume (Bld) [Entitic vol] 10.4 fL 6.2-12.0 [facility] Platelets (Bld) [#/Vol] 195 10*3/uL 150-450 [facility] No Panel InformationOrdered By: Francheska Alonzo on 12-25-2023 Estimated GFR (MDRD) Amer 116 mL/min >60 [facility] Comment on above: GFR Calc Estimated GFR (MDRD) Non-Af Amer 96 mL/min >60 [facility] Comment on above: Non- GFR Calc VLDL Cholesterol 15 mg/dL 5-40 [facility] RBC Auto (Bld) [#/Vol]Ordere d By: Francheska Alonzo on 12-25-2023 RBC (Bld) [#/Vol] 4.44 10*6/uL 4.6-6.2 [facility] Serum or plasma calcium pauline urement (mass/volume)Ordered By: Francheska Alonzo on 12-25-2023 Calcium [Mass/Vol] 8.9 mg/dL 8.5-10.1 [facility] Serum or plasma creatinine m easurement (mass/volume)Ordered By: Francheska Alonzo on 12-25-2023 Creatinine [Mass/Vol] 0.82 mg/dL 0.70-1.30 [facility] Comment on above: The validity of the calculated GFR & GFRAA in patients over 70 years has not been determined. Clinical correlation is essential. Serum or plasma urea nitroge n measurement (mass/volume)Ordered By: Francheska Alonzo on 12-25-2023 Urea nitrogen [Mass/Vol] 26 mg/dL 7-18 [facility] Thin prep Papanicolaou smear with manual screeningOrdered By: Francheska Alonzo on 12-25-2023 Thin prep Papanicolaou smear with manual screening 4.0 g/dL 3.2-5.0 [facility] Thin prep Papanicolaou smear with manual screening 19 U/L 15-37 [facility] Thin prep Papanicolaou smear with manual screening 2 5-15 [facility] Absolute lymphocyte countOrd ered By: Francheska Alonzo on 05-29-2023 Lymphocytes Auto (Unsp spec) [#/Vol] 1.36 10*3/uL 0.83-4.51 [facility] Basophil percentageOrdered B y: Francheska Alonzo on 05-29-2023 Basophils/100 WBC (Bld) 0.9 % 0-1 [facility] Bilirubin [Mass/Vol] 0.60 mg/dL 0.20-1.00 [facility] Comment on above: For patients on eltr ombopag therapy, use of Dimension [place] TBIL is not recommended. Chloride [Moles/Vol] 108 mmol/L 98-107 [facility] Cholesterol [Mass/Vol] 195 mg/dL <200 [facility] Comment on above: <200 mg/dL Desirable 200-240 mg/dL Borderline >240 mg/dL High Risk Eosinophils/100 WBC (Bld) 7.8 % 0-5 [facility] Glucose [Mass/Vol] 91 mg/dL 74-106 [facility] Neutrophils (Bld) [#/Vol] 3.3 10*3/uL 2.0-7.7 [facility] Neutrophils/100 WBC (Bld) 58.6 % 47-70 [facility] Potassium [Moles/Vol] 4.1 mmol/L 3.5-5.1 [facility] Protein [Mass/Vol] 7.1 g/dL 6.4-8.2 [facility] Sodium [Moles/Vol] 139 mmol/L 136-145 [facility] Triglyceride [Mass/Vol] 92 mg/dL <199 [facility] Comment on above: The drugs N-Acetylcy steine and Metamizole may falsely depress this assay.Serum Triglycerides Reference Interval Normal <150 mg/dL Borderline high 150 - 199 mg/dL High 200 - 499 mg/dL Very High > or = 500 mg/dL WBC (Bld) [#/Vol] 5.6 10*3/uL 4.4-11.0 [facility] Blood erythrocytes count (nu mber/volume)Ordered By: Francheska Alonzo on 05-29-2023 RBC (Bld) [#/Vol] 4.51 10*6/uL 4.6-6.2 [facility] Blood hemoglobin measurement (mass/volume)Ordered By: Francheska Fast on 05-29-2023 Hemoglobin (Bld) [Mass/Vol] 15.4 g/dL 13.0-16.5 [facility] Blood lymphocytes/100 leukoc ytesOrdered By: Francheska Fast on 05-29-2023 Lymphocytes/100 WBC (Bld) 24.2 % 19-41 [facility] Blood monocytes/100 leukocyt esOrdered By: Francheska on 05-29-2023 Monocytes/100 WBC (Bld) 8.3 % 0-10 [facility] Blood platelet mean volumeOr dered By: Francheska on 05-29-2023 Platelet mean volume (Bld) [Entitic vol] 11.7 fL 6.2-12.0 [facility] Determination of erythrocyte mean corpuscular volume (MCV)Ordered By: Francheska on 05-29-2023 MCV (RBC) [Entitic vol] 99.8 fL 80-94 [facility] Erythrocyte sedimentation ra teOrdered By: [facility] on 05-29-2023 ESR (Bld) [Velocity] mm/h 0-20 [facility] Hematocrit Auto (Bld) [Volum e fraction]Ordered By: [facility] on 05-29-2023 Hematocrit (Bld) [Volume fraction] 45.0 % 40-54 [facility] Laboratory - Chemistry and C hemistry - challengeOrdered By: [facility] on 05-29-2023 ALP [Catalytic activity/Vol] 82 U/L 45-117 [facility] ALT [Catalytic activity/Vol] 31 U/L 16-61 [facility] CO2 [Moles/Vol] 27.0 mmol/L 21.0-32.0 [facility] Globulin (S) [Mass/Vol] 2.9 g/dL 2.2-4.2 [facility] Urea nitrogen/Creatinine [Mass ratio] 22.7 mg/mg 10-20 [facility] Laboratory - Hematology and Cell countsOrdered By: [facility] on 05-29-2023 Erythrocyte distribution width (RBC) [Entitic vol] 45.7 fL 35.1-43.9 [facility] Erythrocyte distribution width (RBC) [Ratio] 12.4 % 11.6-14.6 [facility] Immature granulocytes/100 WBC (Bld) 0.200 % 0.0-0.9 [facility] Comment on above: IG% - Immature Granu locytes (promyelocytes, myelocytes and metamyelocytes) > 1% indicates that a LEFT SHIFT is Present. MCH (RBC) [Entitic mass] 34.1 pg 27.0-32.0 [facility] Nucleated RBC/100 WBC (Bld) [Ratio] 0 % 0-5 [facility] MCHC Auto (RBC) [Mass/Vol]Or dered By: Francheska on 05-29-2023 MCHC (RBC) [Mass/Vol] 34.2 g/dL 32-36 [facility] No Panel InformationOrdered By: Francheska on 05-29-2023 Anti-Nuclear Antibody Screen Negative Negative [facility] Comment on above: Performed at: - [place] [id number] Director: Brennan Pascual PhD, Phone: [phone] Estimated GFR (MDRD) Amer 122 mL/min >60 [facility] Comment on above: GFR Calc Estimated GFR (MDRD) Non-Af Amer 101 mL/min >60 [facility] Comment on above: Non- GFR Calc Platelets bldOrdered By: Faby dhaliwal on 05-29-2023 Platelets (Bld) [#/Vol] 178 10*3/uL 150-450 [facility] Serum or plasma C reactive p rotein measurement (mass/volume)Ordered By: Francheska on 05-29-2023 CRP [Mass/Vol] mg/L 0.0-3.0 [facility] Comment on above: C-Reactive Protein ( CRP) provides useful information for thediagnosis, therapy and monitoring of inflammatory processesand associated diseases. For the evaluation of Relative Riskfor Cardiovascular Disease, a High Sensitivity CRP (HSCRP)should be ordered. Serum or plasma albumin pauline urement (mass/volume)Ordered By: on 05-29-2023 Albumin [Mass/Vol] 4.2 g/dL 3.2-5.0 [facility] Serum or plasma albumin/glob ulin mass ratioOrdered By: on 05-29-2023 Albumin/Globulin [Mass ratio] 1.4 {ratio} 0.9-2.4 [facility] Serum or plasma calcium pauline urement (mass/volume)Ordered By: Francheska Fast on 05-29-2023 Calcium [Mass/Vol] 9.2 mg/dL 8.5-10.1 [facility] Serum or plasma cholesterol in HDL measurement (mass/volume)Ordered By: on 05-29-2023 Cholesterol in HDL [Mass/Vol] 80 mg/dL >40 [facility] Comment on above: The drugs N-Acetylcy steine and Metamizole may falsely depress this assay. Reference Range HDL <40 mg/dL Low HDL Cholesterol HDL >or= 60 mg/dL High HDL Cholesterol Serum or plasma cholesterol in VLDL measurement (mass/volume)Ordered By: Francheska Alonzo on 05-29-2023 Cholesterol in VLDL [Mass/Vol] 18 mg/dL 5-40 [facility] Serum or plasma creatinine m easurement (mass/volume)Ordered By: Francheska Alonzo on 05-29-2023 Creatinine [Mass/Vol] 0.79 mg/dL 0.70-1.30 [facility] Comment on above: The validity of the calculated GFR & GFRAA in patients over 70 years has not been determined. Clinical correlation is essential. Serum or plasma low density lipoprotein (LDL) cholesterol measurement (mass/volume)Ordered By: Francheska Alonzo on 05-29-2023 Cholesterol in LDL [Mass/Vol] 97 mg/dL 0-130 [facility] Serum or plasma urea nitroge n measurement (mass/volume)Ordered By: Francheska Alonzo on 05-29-2023 Urea nitrogen [Mass/Vol] 18 mg/dL 7-18 [facility] Serum rheumatoid factor dete ctionOrdered By: Francheska Alonzo on 05-29-2023 Rheumatoid factor Ql (S) < 10.0 IU/mL <15 [facility] Thin prep Papanicolaou smear with manual screeningOrdered By: Francheska Alonzo on 05-29-2023 Thin prep Papanicolaou smear with manual screening 20 U/L 15-37 [facility] Thin prep Papanicolaou smear with manual screening 4 5-15 [facility] Absolute lymphocyte countOrd ered By: Dr. Alonzo on 02-22-2023 Lymphocytes Auto (Unsp spec) [#/Vol] 1.40 10*3/uL 0.83-4.51 [facility] Basophil percentageOrdered B y: Dr. Alonzo on 02-22-2023 Basophils/100 WBC (Bld) 0.9 % 0-1 [facility] Bilirubin [Mass/Vol] 0.60 mg/dL 0.20-1.00 [facility] Comment on above: For patients on eltr ombopag therapy, use of Dimension [place] TBIL is not recommended. Chloride [Moles/Vol] 106 mmol/L 98-107 [facility] Cholesterol [Mass/Vol] 205 mg/dL <200 [facility] Comment on above: <200 mg/dL Desirable 200-240 mg/dL Borderline >240 mg/dL High Risk Eosinophils/100 WBC (Bld) 6.7 % 0-5 [facility] Glucose [Mass/Vol] 88 mg/dL 74-106 [facility] Neutrophils (Bld) [#/Vol] 3.4 10*3/uL 2.0-7.7 [facility] Neutrophils/100 WBC (Bld) 59.0 % 47-70 [facility] Potassium [Moles/Vol] 4.5 mmol/L 3.5-5.1 [facility] Protein [Mass/Vol] 7.1 g/dL 6.4-8.2 [facility] Sodium [Moles/Vol] 140 mmol/L 136-145 [facility] Triglyceride [Mass/Vol] 112 mg/dL <199 [facility] Comment on above: The drugs N-Acetylcy steine and Metamizole may falsely depress this assay.Serum Triglycerides Reference Interval Normal <150 mg/dL Borderline high 150 - 199 mg/dL High 200 - 499 mg/dL Very High > or = 500 mg/dL WBC (Bld) [#/Vol] 5.7 10*3/uL 4.4-11.0 [facility] Blood erythrocytes count (nu mber/volume)Ordered By: Dr. Alonzo on 02-22-2023 RBC (Bld) [#/Vol] 4.57 10*6/uL 4.6-6.2 [facility] Blood hemoglobin measurement (mass/volume)Ordered By: Dr. Alonzo on 02-22-2023 Hemoglobin (Bld) [Mass/Vol] 15.9 g/dL 13.0-16.5 [facility] Blood lymphocytes/100 leukoc ytesOrdered By: Dr. Alonzo on 02-22-2023 Lymphocytes/100 WBC (Bld) 24.6 % 19-41 [facility] Blood monocytes/100 leukocyt esOrdered By: Dr. Alonzo on 02-22-2023 Monocytes/100 WBC (Bld) 8.6 % 0-10 [facility] Blood platelet mean volumeOr dered By: Dr. Alonzo on 02-22-2023 Platelet mean volume (Bld) [Entitic vol] 11.1 fL 6.2-12.0 [facility] Determination of erythrocyte mean corpuscular volume (MCV)Ordered By: Dr. Alonzo on 02-22-2023 MCV (RBC) [Entitic vol] 99.3 fL 80-94 [facility] Hematocrit Auto (Bld) [Volum e fraction]Ordered By: Dr. Alonzo on 02-22-2023 Hematocrit (Bld) [Volume fraction] 45.4 % 40-54 [facility] Laboratory - Chemistry and C hemistry - challengeOrdered By: Dr. Alonzo on 02-22-2023 ALP [Catalytic activity/Vol] 83 U/L 45-117 [facility] ALT [Catalytic activity/Vol] 27 U/L 16-61 [facility] CO2 [Moles/Vol] 25.0 mmol/L 21.0-32.0 [facility] Globulin (S) [Mass/Vol] 3.1 g/dL 2.2-4.2 [facility] Urea nitrogen/Creatinine [Mass ratio] 23.8 mg/mg 10-20 [facility] Laboratory - Hematology and Cell countsOrdered By: Dr. Alonzo on 02-22-2023 Erythrocyte distribution width (RBC) [Entitic vol] 44.3 fL 35.1-43.9 [facility] Erythrocyte distribution width (RBC) [Ratio] 12.2 % 11.6-14.6 [facility] Immature granulocytes/100 WBC (Bld) 0.200 % 0.0-0.9 [facility] Comment on above: IG% - Immature Granu locytes (promyelocytes, myelocytes and metamyelocytes) > 1% indicates that a LEFT SHIFT is Present. MCH (RBC) [Entitic mass] 34.8 pg 27.0-32.0 [facility] Nucleated RBC/100 WBC (Bld) [Ratio] 0 % 0-5 [facility] MCHC Auto (RBC) [Mass/Vol]Or dered By: Dr. Alonzo on 02-22-2023 MCHC (RBC) [Mass/Vol] 35.0 g/dL 32-36 [facility] No Panel InformationOrdered By: Dr. Alonzo on 02-22-2023 Estimated GFR (MDRD) Amer 107 mL/min >60 [facility] Comment on above: GFR Calc Estimated GFR (MDRD) Non-Af Amer 89 mL/min >60 [facility] Comment on above: Non- GFR Calc Prostate Specific Antigen Total 1.68 ng/mL 0.0-4.0 [facility] Comment on above: This test was perfor med using the TPSA assay method for the[employer] chemistry system. Values obtained with differentassay methods cannot be used interchangably.When changing PSA assays in the course of monitoring apatient, additional sequential testing should be carriedout to confirm baseline values. Vitamin D 25-Hydroxy 67.0 ng/mL [facility] Comment on above: Vitamin D 25(OH) Sta tus Range Deficiency <20 ng/mL (50nmol/L) Insufficiency 20 - 30 ng/mL (50 - 75 nmol/L) Sufficiency 30 - 100 ng/mL (75 - 250 nmol/L) Toxicity >100 ng/mL (>250 nmol/L) Platelets bldOrdered By: Dr. Alonzo on 02-22-2023 Platelets (Bld) [#/Vol] 189 10*3/uL 150-450 [facility] Serum or plasma albumin pauline urement (mass/volume)Ordered By: Dr. Alonzo on 02-22-2023 Albumin [Mass/Vol] 4.0 g/dL 3.2-5.0 [facility] Serum or plasma albumin/glob ulin mass ratioOrdered By: Dr. Alonzo on 02-22-2023 Albumin/Globulin [Mass ratio] 1.3 {ratio} 0.9-2.4 [facility] Serum or plasma calcium pauline urement (mass/volume)Ordered By: Dr. Alonzo on 02-22-2023 Calcium [Mass/Vol] 9.3 mg/dL 8.5-10.1 [facility] Serum or plasma cholesterol in HDL measurement (mass/volume)Ordered By: Dr. Alonoz on 02-22-2023 Cholesterol in HDL [Mass/Vol] 75 mg/dL >40 [facility] Comment on above: The drugs N-Acetylcy steine and Metamizole may falsely depress this assay. Reference Range HDL <40 mg/dL Low HDL Cholesterol HDL >or= 60 mg/dL High HDL Cholesterol Serum or plasma cholesterol in VLDL measurement (mass/volume)Ordered By: Dr. Alonzo on 02-22-2023 Cholesterol in VLDL [Mass/Vol] 22 mg/dL 5-40 [facility] Serum or plasma creatinine m easurement (mass/volume)Ordered By: Dr. Alonzo on 02-22-2023 Creatinine [Mass/Vol] 0.88 mg/dL 0.70-1.30 [facility] Comment on above: The validity of the calculated GFR & GFRAA in patients over 70 years has not been determined. Clinical correlation is essential. Serum or plasma low density lipoprotein (LDL) cholesterol measurement (mass/volume)Ordered By: Dr. Alonzo on 02-22-2023 Cholesterol in LDL [Mass/Vol] 108 mg/dL 0-130 [facility] Serum or plasma urea nitroge n measurement (mass/volume)Ordered By: Dr. Alonzo on 02-22-2023 Urea nitrogen [Mass/Vol] 21 mg/dL 7-18 [facility] Thin prep Papanicolaou smear with manual screeningOrdered By: Dr. Alonzo on 02-22-2023 Thin prep Papanicolaou smear with manual screening 22 U/L 15-37 [facility] Thin prep Papanicolaou smear with manual screening 9 5-15 [facility] Absolute lymphocyte countOrd ered By: Dr. Valdez on 11-30-2022 Lymphocytes Auto (Unsp spec) [#/Vol] 1.52 10*3/uL 0.83-4.51 [facility] Basophil percentageOrdered B y: Dr. Valdez on 11-30-2022 Basophils/100 WBC (Bld) 0.7 % 0-1 [facility] Chloride [Moles/Vol] 106 mmol/L 98-107 [facility] Eosinophils/100 WBC (Bld) 4.6 % 0-5 [facility] Glucose [Mass/Vol] 96 mg/dL 74-106 [facility] Neutrophils (Bld) [#/Vol] 4.5 10*3/uL 2.0-7.7 [facility] Neutrophils/100 WBC (Bld) 65.1 % 47-70 [facility] Potassium [Moles/Vol] 4.4 mmol/L 3.5-5.1 [facility] Sodium [Moles/Vol] 138 mmol/L 136-145 [facility] WBC (Bld) [#/Vol] 7.0 10*3/uL 4.4-11.0 [facility] Blood erythrocytes count (nu mber/volume)Ordered By: Dr. Valdez on 11-30-2022 RBC (Bld) [#/Vol] 4.49 10*6/uL 4.6-6.2 [facility] Blood hemoglobin measurement (mass/volume)Ordered By: Dr. Valdez on 11-30-2022 Hemoglobin (Bld) [Mass/Vol] 15.8 g/dL 13.0-16.5 [facility] Blood lymphocytes/100 leukoc ytesOrdered By: Dr. Valdez on 11-30-2022 Lymphocytes/100 WBC (Bld) 21.8 % 19-41 [facility] Blood monocytes/100 leukocyt esOrdered By: Dr. Valdez on 11-30-2022 Monocytes/100 WBC (Bld) 7.5 % 0-10 [facility] Blood platelet mean volumeOr dered By: Dr. Valdez on 11-30-2022 Platelet mean volume (Bld) [Entitic vol] 10.9 fL 6.2-12.0 [facility] Determination of erythrocyte mean corpuscular volume (MCV)Ordered By: Dr. Valdez on 11-30-2022 MCV (RBC) [Entitic vol] 99.6 fL 80-94 [facility] Hematocrit Auto (Bld) [Volum e fraction]Ordered By: Dr. Valdez on 11-30-2022 Hematocrit (Bld) [Volume fraction] 44.7 % 40-54 [facility] Laboratory - Chemistry and C hemistry - challengeOrdered By: Dr. Valdez on 11-30-2022 CO2 [Moles/Vol] 26.0 mmol/L 21.0-32.0 [facility] Urea nitrogen/Creatinine [Mass ratio] 27.5 mg/mg 10-20 [facility] Laboratory - Hematology and Cell countsOrdered By: Dr. Valdez on 11-30-2022 Erythrocyte distribution width (RBC) [Entitic vol] 45.4 fL 35.1-43.9 [facility] Erythrocyte distribution width (RBC) [Ratio] 12.4 % 11.6-14.6 [facility] Immature granulocytes/100 WBC (Bld) 0.300 % 0.0-0.9 [facility] Comment on above: IG% - Immature Granu locytes (promyelocytes, myelocytes and metamyelocytes) > 1% indicates that a LEFT SHIFT is Present. MCH (RBC) [Entitic mass] 35.2 pg 27.0-32.0 [facility] Nucleated RBC/100 WBC (Bld) [Ratio] 0 % 0-5 [facility] MCHC Auto (RBC) [Mass/Vol]Or dered By: Dr. Valdez on 11-30-2022 MCHC (RBC) [Mass/Vol] 35.3 g/dL 32-36 [facility] No Panel InformationOrdered By: Dr. Valdez on 11-30-2022 Estimated GFR (MDRD) Amer 104 mL/min >60 [facility] Comment on above: GFR Calc Estimated GFR (MDRD) Non-Af Amer 86 mL/min >60 [facility] Comment on above: Non- GFR Calc Platelets bldOrdered By: Dr. Valdez on 11-30-2022 Platelets (Bld) [#/Vol] 200 10*3/uL 150-450 [facility] Serum or plasma calcium pauline urement (mass/volume)Ordered By: Dr. Valdez on 11-30-2022 Calcium [Mass/Vol] 9.4 mg/dL 8.5-10.1 [facility] Serum or plasma creatinine m easurement (mass/volume)Ordered By: Dr. Valdez on 11-30-2022 Creatinine [Mass/Vol] 0.91 mg/dL 0.70-1.30 [facility] Comment on above: The validity of the calculated GFR & GFRAA in patients over 70 years has not been determined. Clinical correlation is essential. Serum or plasma urea nitroge n measurement (mass/volume)Ordered By: Dr. Valdez on 11-30-2022 Urea nitrogen [Mass/Vol] 25 mg/dL 7-18 [facility] Thin prep Papanicolaou smear with manual screeningOrdered By: Dr. Valdez on 11-30-2022 Thin prep Papanicolaou smear with manual screening 6 5-15 [facility] Absolute lymphocyte countOrd ered By: Dr. Alonzo on 10-29-2022 Lymphocytes Auto (Unsp spec) [#/Vol] 1.20 10*3/uL 0.83-4.51 [facility] Basophil percentageOrdered B y: Dr. Alonzo on 10-29-2022 Basophils/100 WBC (Bld) 0.7 % 0-1 [facility] Bilirubin [Mass/Vol] 0.50 mg/dL 0.20-1.00 [facility] Comment on above: For patients on eltr ombopag therapy, use of Dimension [place] TBIL is not recommended. Chloride [Moles/Vol] 105 mmol/L 98-107 [facility] Cholesterol [Mass/Vol] 227 mg/dL <200 [facility] Comment on above: <200 mg/dL Desirable 200-240 mg/dL Borderline >240 mg/dL High Risk Eosinophils/100 WBC (Bld) 5.5 % 0-5 [facility] Glucose [Mass/Vol] 93 mg/dL 74-106 [facility] Neutrophils (Bld) [#/Vol] 3.7 10*3/uL 2.0-7.7 [facility] Neutrophils/100 WBC (Bld) 64.9 % 47-70 [facility] Potassium [Moles/Vol] 4.2 mmol/L 3.5-5.1 [facility] Protein [Mass/Vol] 7.1 g/dL 6.4-8.2 [facility] Sodium [Moles/Vol] 140 mmol/L 136-145 [facility] Triglyceride [Mass/Vol] 88 mg/dL <199 [facility] Comment on above: The drugs N-Acetylcy steine and Metamizole may falsely depress this assay.Serum Triglycerides Reference Interval Normal <150 mg/dL Borderline high 150 - 199 mg/dL High 200 - 499 mg/dL Very High > or = 500 mg/dL WBC (Bld) [#/Vol] 5.6 10*3/uL 4.4-11.0 [facility] Blood erythrocytes count (nu mber/volume)Ordered By: Dr. Alonzo on 10-29-2022 RBC (Bld) [#/Vol] 4.46 10*6/uL 4.6-6.2 [facility] Blood hemoglobin measurement (mass/volume)Ordered By: Dr. Alonzo on 10-29-2022 Hemoglobin (Bld) [Mass/Vol] 15.3 g/dL 13.0-16.5 [facility] Blood lymphocytes/100 leukoc ytesOrdered By: Dr. Alonzo on 10-29-2022 Lymphocytes/100 WBC (Bld) 21.4 % 19-41 [facility] Blood monocytes/100 leukocyt esOrdered By: Dr. Alonzo on 10-29-2022 Monocytes/100 WBC (Bld) 7.1 % 0-10 [facility] Blood platelet mean volumeOr dered By: Dr. Alonzo on 10-29-2022 Platelet mean volume (Bld) [Entitic vol] 11.1 fL 6.2-12.0 [facility] Determination of erythrocyte mean corpuscular volume (MCV)Ordered By: Dr. Alonzo on 10-29-2022 MCV (RBC) [Entitic vol] 98.4 fL 80-94 [facility] Hematocrit Auto (Bld) [Volum e fraction]Ordered By: Dr. Alonzo on 10-29-2022 Hematocrit (Bld) [Volume fraction] 43.9 % 40-54 [facility] Laboratory - Chemistry and C hemistry - challengeOrdered By: Dr. Alonzo on 10-29-2022 ALP [Catalytic activity/Vol] 74 U/L 45-117 [facility] ALT [Catalytic activity/Vol] 26 U/L 16-61 [facility] CO2 [Moles/Vol] 26.0 mmol/L 21.0-32.0 [facility] Globulin (S) [Mass/Vol] 3.1 g/dL 2.2-4.2 [facility] Urea nitrogen/Creatinine [Mass ratio] 22.2 mg/mg 10-20 [facility] Laboratory - Hematology and Cell countsOrdered By: Dr. Alonzo on 10-29-2022 Erythrocyte distribution width (RBC) [Entitic vol] 44.5 fL 35.1-43.9 [facility] Erythrocyte distribution width (RBC) [Ratio] 12.3 % 11.6-14.6 [facility] Immature granulocytes/100 WBC (Bld) 0.400 % 0.0-0.9 [facility] Comment on above: IG% - Immature Granu locytes (promyelocytes, myelocytes and metamyelocytes) > 1% indicates that a LEFT SHIFT is Present. MCH (RBC) [Entitic mass] 34.3 pg 27.0-32.0 [facility] Nucleated RBC/100 WBC (Bld) [Ratio] 0 % 0-5 [facility] MCHC Auto (RBC) [Mass/Vol]Or dered By: Dr. Alonzo on 10-29-2022 MCHC (RBC) [Mass/Vol] 34.9 g/dL 32-36 [facility] No Panel InformationOrdered By: Dr. Alonzo on 10-29-2022 Estimated GFR (MDRD) Amer 105 mL/min >60 [facility] Comment on above: GFR Calc Estimated GFR (MDRD) Non-Af Amer 87 mL/min >60 [facility] Comment on above: Non- GFR Calc Vitamin D 25-Hydroxy 106.3 ng/mL [facility] Comment on above: Vitamin D 25(OH) Sta [...] 10-29-2022 Platelets (Bld) [#/Vol] 195 10*3/uL 150-450 [facility] Serum or plasma albumin pauline urement (mass/volume)Ordered By: Dr. Alonzo on 10-29-2022 Albumin [Mass/Vol] 4.0 g/dL 3.2-5.0 [facility] Serum or plasma albumin/glob ulin mass ratioOrdered By: Dr. Alonzo on 10-29-2022 Albumin/Globulin [Mass ratio] 1.3 {ratio} 0.9-2.4 [facility] Serum or plasma calcium pauline urement (mass/volume)Ordered By: Dr. Alonzo on 10-29-2022 Calcium [Mass/Vol] 9.4 mg/dL 8.5-10.1 [facility] Serum or plasma cholesterol in HDL measurement (mass/volume)Ordered By: Dr. Alonzo on 10-29-2022 Cholesterol in HDL [Mass/Vol] 74 mg/dL >40 [facility] Comment on above: The drugs N-Acetylcy steine and Metamizole may falsely depress this assay. Reference Range HDL <40 mg/dL Low HDL Cholesterol HDL >or= 60 mg/dL High HDL Cholesterol Serum or plasma cholesterol in VLDL measurement (mass/volume)Ordered By: Dr. Alonzo on 10-29-2022 Cholesterol in VLDL [Mass/Vol] 18 mg/dL 5-40 [facility] Serum or plasma creatinine m easurement (mass/volume)Ordered By: Dr. Alonzo on 10-29-2022 Creatinine [Mass/Vol] 0.90 mg/dL 0.70-1.30 [facility] Comment on above: The validity of the calculated GFR & GFRAA in patients over 70 years has not been determined. Clinical correlation is essential. Serum or plasma low density lipoprotein (LDL) cholesterol measurement (mass/volume)Ordered By: Dr. Alonzo on 10-29-2022 Cholesterol in LDL [Mass/Vol] 135 mg/dL 0-130 [facility] Serum or plasma urea nitroge n measurement (mass/volume)Ordered By: Dr. Alonzo on 10-29-2022 Urea nitrogen [Mass/Vol] 20 mg/dL 7-18 [facility] Thin prep Papanicolaou smear with manual screeningOrdered By: Dr. Alonzo on 10-29-2022 Thin prep Papanicolaou smear with manual screening 19 U/L 15-37 [facility] Thin prep Papanicolaou smear with manual screening 9 5-15 [facility] CBC W/AUTO DIFF WBC (00281)O rdered By: [facility] [employer] [facility] on 07-16-2022 Basophils (Bld) [#/Vol] 0.0 10*3/uL Normal 0.0-0.2 [facility]; [facility] Work Phone: Comment on above: PATIENT WAS FASTINGP ERFORMED BY: CLIFF Mahoney [facility] [id number] Information: NURSE DRAW Basophils/100 WBC (Bld) 1 % Normal [facility]; [facility] Work Phone: Comment on above: PATIENT WAS FASTINGP ERFORMED BY: CLFIF Ma [id number] [id number] Information: NURSE DRAW Eosinophils (Bld) [#/Vol] 0.3 10*3/uL Normal 0.0-0.4 [facility]; [facility] Work Phone: Comment on above: PATIENT WAS FASTINGP ERFORMED BY: CLIFF Anil [id number] [id number] Information: NURSE DRAW Eosinophils/100 WBC (Bld) 5 % Normal [facility]; [facility] Work Phone: Comment on above: PATIENT WAS FASTINGP ERFORMED BY: CLIFF Ma Fmtyxe335[address] [id number] Information: NURSE DRAW Erythrocyte distribution width (RBC) [Ratio] 12.3 % Normal 11.6-15.4 [facility]; [facility] Work Phone: Comment on above: PATIENT WAS FASTINGP ERFORMED BY: CLIFF Ma[address] [id number] Information: NURSE DRAW Hematocrit (Bld) [Volume fraction] 46.3 % Normal 37.5-51.0 [facility]; [facility] Work Phone: Comment on above: PATIENT WAS FASTINGP ERFORMED BY: CLIFF Ma Auuhnm[address] [id number] Information: NURSE DRAW Hemoglobin (Bld) [Mass/Vol] 16.0 g/dL Normal 13.0-17.7 [facility]; [facility] Work Phone: Comment on above: PATIENT WAS FASTINGP ERFORMED BY: CLIFF Khoagavino JohnsonKpsdzl7256 [facility] [id number] Information: NURSE DRAW Immature granulocytes (Bld) [#/Vol] 0.0 10*3/uL Normal 0.0-0.1 [facility]; [facility] Work Phone: Comment on above: PATIENT WAS FASTINGP ERFORMED BY: CLIFF Khoasara Iezhlx7[address] [id number] Information: NURSE DRAW Immature granulocytes/100 WBC (Bld) 0 % Normal [facility]; [facility] Work Phone: Comment on above: PATIENT WAS FASTINGP ERFORMED BY: CLIFF Khoagavino JohnsonEkxuot9236[address] [id number] Information: NURSE DRAW Lymphocytes (Bld) [#/Vol] 1.4 10*3/uL Normal 0.7-3.1 [facility]; [facility] Work Phone: Comment on above: PATIENT WAS FASTINGP ERFORMED BY: CLIFF Khoagavino [id number] [id number] Information: NURSE DRAW Lymphocytes/100 WBC (Bld) 25 % Normal [facility]; [facility] Work Phone: Comment on above: PATIENT WAS FASTINGP ERFORMED BY: CLIFF Khoasara[address] [id number] Information: NURSE DRAW MCH (RBC) [Entitic mass] 34.5 pg Abnormal 26.6-33.0 [facility]; [facility] Work Phone: Comment on above: PATIENT WAS FASTINGP ERFORMED BY: CLIFF Khoasara[address] [id number] Information: NURSE DRAW MCHC (RBC) [Mass/Vol] 34.6 g/dL Normal 31.5-35.7 [facility]; [facility] Work Phone: Comment on above: PATIENT WAS FASTINGP ERFORMED BY: CLIFF [address] [id number] Information: NURSE DRAW MCV (RBC) [Entitic vol] 100 fL Abnormal 79-97 [facility]; [facility] Work Phone: Comment on above: PATIENT WAS FASTINGP ERFORMED BY: CLIFF Johnsonlin6370 [facility] [id number] Information: NURSE DRAW Monocytes (Bld) [#/Vol] 0.4 10*3/uL Normal 0.1-0.9 [facility]; [facility] Work Phone: Comment on above: PATIENT WAS FASTINGP ERFORMED BY: [place] [id number] [facility] [id number] Information: NURSE DRAW Monocytes/100 WBC (Bld) 7 % Normal [facility]; [facility] Work Phone: Comment on above: PATIENT WAS FASTINGP ERFORMED BY: [facility] Vizple[address] [id number] Information: NURSE DRAW Neutrophils (Bld) [#/Vol] 3.4 10*3/uL Normal 1.4-7.0 [facility]; [facility] Work Phone: Comment on above: PATIENT WAS FASTINGP ERFORMED BY: Anil Iczllv3611 [facility] [id number] Information: NURSE DRAW Neutrophils/100 WBC (Bld) 62 % Normal [facility]; [facility] Work Phone: Comment on above: PATIENT WAS FASTINGP ERFORMED BY: [place] [id number] [facility] [id number] Information: NURSE DRAW Platelets (Bld) [#/Vol] 224 10*3/uL Normal 150-450 [facility]; [facility] Work Phone: Comment on above: PATIENT WAS FASTINGP ERFORMED BY: [facility]6370 [facility] [id number] Information: NURSE DRAW RBC (Bld) [#/Vol] 4.64 10*6/uL Normal 4.14-5.80 [facility]; [facility] Work Phone: Comment on above: PATIENT WAS FASTINGP ERFORMED BY: CLIFF Labcokristopher JohnsonVxufjw3512 [facility] [id number] Information: NURSE DRAW WBC (Bld) [#/Vol] 5.6 10*3/uL Normal 3.4-10.8 [facility]; [facility] Work Phone: Comment on above: PATIENT WAS FASTINGP ERFORMED BY: CB [facility] Heufoq0132 [facility] [id number] Information: NURSE DRAW METABOLIC PANEL, JENNIFER JIMENEZ ([id number])Ordered By: [facility] on 07-16-2022 Albumin [Mass/Vol] 4.9 g/dL Abnormal 3.7-4.7 [facility]; [facility] Work Phone: Comment on above: PATIENT WAS FASTINGP ERFORMED BY: CB [facility] Smfkhe7776 [facility] [id number]; wellness labs, ok to wait for wellness to review Albumin/Globulin [Mass ratio] 2.6 {ratio} Abnormal 1.2-2.2 [facility]; [facility] Work Phone: Comment on above: PATIENT WAS FASTINGP ERFORMED BY: CB [facility] [id number] [facility] [id number]; wellness labs, ok to wait for wellness to review ALP [Catalytic activity/Vol] 91 U/L Normal 44-121 [facility]; [facility] Work Phone: Comment on above: PATIENT WAS FASTINGP ERFORMED BY: CB [facility] [id number] [facility] [id number]; wellness labs, ok to wait for wellness to review ALT [Catalytic activity/Vol] 24 U/L Normal 0-44 [facility]; [facility] Work Phone: Comment on above: PATIENT WAS FASTINGP ERFORMED BY: CB [facility] [id number] [facility] [id number]; wellness labs, ok to wait for wellness to review AST [Catalytic activity/Vol] 25 U/L Normal 0-40 [facility]; [facility] Work Phone: Comment on above: PATIENT WAS FASTINGP ERFORMED BY: CB [facility] [id number] [address] RoadDublin [place] [id number]; wellness labs, ok to wait for wellness to review Bilirubin [Mass/Vol] 0.3 mg/dL Normal 0.0-1.2 [facility] rehensive Internal Medicine; [facility] Work Phone: Comment on above: PATIENT WAS FASTINGP ERFORMED BY: CB [facility] [id number] [address] RoadDublin [place] [id number]; wellness labs, ok to wait for wellness to review Calcium [Mass/Vol] 9.8 mg/dL Normal 8.6-10.2 [facility]; [facility] Work Phone: Comment on above: PATIENT WAS FASTINGP ERFORMED BY: CB [facility] [id number] [address] RoadDuin [place] [id number]; wellness labs, ok to wait for wellness to review Chloride [Moles/Vol] 103 mmol/L Normal 96-106 [facility]; [facility] Work Phone: Comment on above: PATIENT WAS FASTINGP ERFORMED BY: CB [facility] [id number] [address] RoadDublin [place] [id number]; wellness labs, ok to wait for wellness to review CO2 [Moles/Vol] 21 mmol/L Normal 20-29 [facility] Internal [facility]; [facility] Work Phone: Comment on above: PATIENT WAS FASTINGP ERFORMED BY: CB [facility] [id number] [address] RoadDublin [place] [id number]; wellness labs, ok to wait for wellness to review Creatinine [Mass/Vol] 0.92 mg/dL Normal 0.76-1.27 [facility]; [facility] Work Phone: Comment on above: PATIENT WAS FASTINGP ERFORMED BY: CB [facility] [id number] [address] RoadDublin [place] [id number]; wellness labs, ok to wait for wellness to review GFR/1.73 sq M.predicted among non-blacks MDRD (S/P/Bld) [Vol rate/Area] 86 mL/min/{1.73_m2} Normal Comprehensiv e [facility]; [facility] Work Phone: Comment on above: PATIENT WAS FASTINGP ERFORMED BY: Bonsai AI LabZettaCorerp [id number] [facility] [id number]; wellness labs, ok to wait for wellness to review Globulin (S) [Mass/Vol] 1.9 g/dL Normal 1.5-4.5 [facility]; [facility] Work Phone: Comment on above: PATIENT WAS FASTINGP ERFORMED BY: Bonsai AI LabZettaCorerp Bmuabr3610 [facility] [id number]; wellness labs, ok to wait for wellness to review Glucose [Mass/Vol] 94 mg/dL Normal 70-99 [facility]; [facility] Work Phone: Comment on above: PATIENT WAS FASTINGP ERFORMED BY: Bonsai AI LabZettaCorerp Jyiusx5870 [facility] [id number]; wellness labs, ok to wait for wellness to review Potassium [Moles/Vol] 4.7 mmol/L Normal 3.5-5.2 [facility]; [facility] Work Phone: Comment on above: PATIENT WAS FASTINGP ERFORMED BY: Bonsai AI LabZettaCorerp Ccjzde4643 [facility] [id number]; wellness labs, ok to wait for wellness to review Protein [Mass/Vol] 6.8 g/dL Normal 6.0-8.5 [facility] Internal [facility]; [facility] Work Phone: Comment on above: PATIENT WAS FASTINGP ERFORMED BY: Bonsai AI [facility] [id number] [facility] [id number]; wellness labs, ok to wait for wellness to review Sodium [Moles/Vol] 141 mmol/L Normal 134-144 [facility]; [facility] Work Phone: Comment on above: PATIENT WAS FASTINGP ERFORMED BY: CB [facility] Ukvoqg9015 [address] RoadDublin [place] [id number]; wellness labs, ok to wait for wellness to review Urea nitrogen [Mass/Vol] 25 mg/dL Normal 8- [facility]; [facility] Work Phone: Comment on above: PATIENT WAS FASTINGP ERFORMED BY: CB [facility] [id number] [address] RoadDublin [place] [id number]; wellness labs, ok to wait for wellness to review Urea nitrogen/Creatinine [Mass ratio] 27 mg/mg Abnormal 10- [facility]; [facility] Work Phone: Comment on above: PATIENT WAS FASTINGP ERFORMED BY: CB [facility] [id number] [address] RoadDublin [place] [id number]; wellness labs, ok to wait for wellness to review URINALYSIS, W/ MICRO ([id number]) Ordered By: Stars Analytical Lead on 07-16-2022 Appearance (U) Cloudy Abnormal Comprehens bari Internal Medicine; [facility] Work Phone: Comment on above: PATIENT WAS FASTINGP ERFORMED BY: CLIFF [facility] [id number] [address] RoadDublin [place] [id number] Bilirubin Ql (U) Negative Normal Comprehe nsive Internal Medicine; [facility] Work Phone: Comment on above: PATIENT WAS FASTINGP ERFORMED BY: CLIFF [facility] [id number] [address] RoadDublin [place] [id number] Color (U) Yellow Normal [facility]; [facility] Work Phone: Comment on above: PATIENT WAS FASTINGP ERFORMED BY: CLIFF [facility] [id number] [address] RoadDublin [place] [id number] Glucose Ql (U) Negative Normal Comprehens bari [facility]; [facility] Work Phone: Comment on above: PATIENT WAS FASTINGP ERFORMED BY: CLIFF [facility] Adkpko9907 [address] RoadDublin [place] [id number] Hemoglobin Ql (U) Negative Normal Compreh ensive Internal Medicine; [facility] Work Phone: Comment on above: PATIENT WAS FASTINGP ERFORMED BY: CLIFF Oliva6370 [address] RoadDublin [place] [id number] Ketones Ql (U) Negative Normal Comprehens bari [facility]; [facility] Work Phone: Comment on above: PATIENT WAS FASTINGP ERFORMED BY: CLIFF Oliva6370 [address] RoadDublin [place] [id number] Leukocyte esterase Test strip Ql (U) Negative Normal [facility]; [facility] Work Phone: Comment on above: PATIENT WAS FASTINGP ERFORMED BY: CLIFF Oliva6370 [address] RoadDublin [place] [id number] Microscopic observation LM Nom (Urine sed) MICRON Normal [facility]; [facility] Work Phone: Comment on above: Microscopic follows if indicated. PATIENT WAS FASTINGP ERFORMED BY: CLIFF Oliva6370 [address] RoadDublin [place] [id number] Microscopic observation LM Nom (Urine sed) See below: Normal [facility]; [facility] Work Phone: Comment on above: Microscopic was kamryn cated and was performed. PATIENT WAS FASTINGP ERFORMED BY: CLIFF Oliva6370 [address] RoadDublin [place] [id number] Nitrite Ql (U) Negative Normal Comprehens bari [facility]; [facility] Work Phone: Comment on above: PATIENT WAS FASTINGP ERFORMED BY: CLIFF Johnsonlin6370 [address] RoadD[address] [place] [id number] pH (U) 8.0 [pH] Abnormal 5.0-7.5 [facility]; [facility] Work Phone: Comment on above: PATIENT WAS FASTINGP ERFORMED BY: CLIFF Johnsonlin6370 [address] RoadDublin [place] [id number] Protein Ql (U) Negative Normal Comprehens bari [facility]; [facility] Work Phone: Comment on above: PATIENT WAS FASTINGP ERFORMED BY: CLIFF Johnsonlin6370 [address] RoadD[address] [place] [id number] Specific gravity (U) [Rel density] 1.020 1 Normal 1.005-1.030 [facility]; [facility] Work Phone: Comment on above: PATIENT WAS FASTINGP ERFORMED BY: Kupu HawaiiBayonne Medical CenterCrlzut1685 [facility] [id number] Urobilinogen (U) [Mass/Vol] 0.2 mg/dL Normal 0.2-1.0 [facility]; [facility] Work Phone: Comment on above: PATIENT WAS FASTINGP ERFORMED BY: [place] [place] [id number] No Panel Informationon 05-09 Follicle Stimulating Hormone 68.8 mIU/mL [facility] Work Phone: Comment on above: NORMAL REFERENCE RAN GES FEMALE FOLLICULAR 2.3 - 12.6 mIU/mL MID-CYCLE PEAK 5.2 - 17.5 mIU/mL LUTEAL 1.7 - 12.9 mIU/mL POST-MENOPAUSAL ON MHT 5.9 - 72.8 mIU/mL NOT ON MHT 12.7 - 132.2 mlU/mL MALE 0.7 - 10.8 mIU/mL HCG Beta Subunit 3 mIU/mL 0-3 [facility] Work Phone: Comment on above: [employer] ECLIA methodol ogyPerformed at: [facility] [employer] [id number] Director: Brennan Pascual PhD, Phone: [phone] Luteinizing Hormone 31.5 mIU/mL [facility] Work Phone: Comment on above: NORMAL REFERENCE RAN GES FEMALE FOLLICULAR 1.9 - 26.2 mIU/mL MID-CYCLE PEAK 22.8 - 76.1 mIU/mL LUTEAL 0.6 - 16.6 mIU/mL POST-MENOPAUSAL ON MHT 1.1 - 52.4 mIU/mL NOT ON MHT 8.6 - 61.8 mIU/mL MALE 1.2 - 10.6 mIU/mL Serum or plasma estradiol (E 2) measurement (mass/volume)on 05-09-2022 E2 [Mass/Vol] 33.7 pg/mL [facility] Work Phone: Comment on above: NORMAL REFERENCE [...] asurement (mass/volume)on 05-09-2022 Prolactin [Mass/Vol] 10.9 ng/mL [facility] Work Phone: Comment on above: NORMAL REFERENCE RAN GES FEMALE NON- 2.2 - 30.3 ng/mL 8.1 - 347.6 ng/mL POST-MENOPAUSAL 0.7 - 31.5 ng/mL MALE 2.5 - 17.4 ng/mL CNPPilar 04-20-2022 CNPN Telephone (GENsimplifyMDS) JUNG ABURTO ([id number]) 1945 M Date Time Provider Department 04/20/22 [...] Encounter Status:Closed by KIRSTIE LOPEZ on 04/20/22 [facility] IAMOVshara 04-17-2022 CNOV Office Visit (SWS ) JUNG ABURTO ([id number]) 1945 M Date Time Provider Department 04/17/22 1:20 PM MAL JOSEPH During your visit today, we [...] the procedure well. Referring Provider: MAL JOSEPH [[id number]] Allergies As of Date: 04/17/2022 (No Known Allergies) Date Reviewed: 04/10/2022 Reviewed by: Kirstie Lopez RN - Fully Assessed Reason for Visit: Procedure [88] Cmt: Right Breast Biopsy Primary Visit Diagnosis:Subareolar mass of right breast [N63.41] Order(s):US BREAST BIOPSY RIGHT (POC) SURG USE ONLY [8560431] Order #: [id number]. #:[id number]: 1 SURGICAL PATHOLOGY [[id number]] Order #: [id number]. #:[id number] Prescriptions as of 04/17/2022 - atorvastatin (LIPITOR) [...] cancer in father [Z80.0]11/28/2017 Encounter Status:Closed by AML JOSEPH on 04/17/22 Normal [facility] SURGICAL PATHOLOGYon 022 CASE REPORT Normal [facility] Comment on above: Order Comment: Speci men Type: TISSUE SPECIMEN Ordering Facility: [facility] Address: [address] [place] [address] Result Comment: Surg [facility] Pathology Report Case: [id number] Authorizing Provider: Mal Joseph MD Collected: 04/17/2022 02:10 PM Ordering Location: General Surgery Received: 04/17/2022 03:27 PM Pathologist: Laure Irvin MD Specimen: BREAST CORE BIOPSY RIGHT, Right Breast Performed By: #### S #### [facility] CLIA [id number] [address] [place] [address] [place] CLINICAL HISTORY Right Breast Mass Normal [facility] Comment on above: Order Comment: Speci men Type: TISSUE SPECIMEN Ordering Facility: [facility] Address: [address] [place], [place] [id number] Performed By: #### S #### [facility] CLIA [id number] [address] [place] [address] [place] DIAGNOSIS COMMENT Multiple deeper leve ls were examined. Clinical and radiographic correlation is suggested. Normal [facility] Comment on above: Order Comment: Speci men Type: TISSUE SPECIMEN Ordering Facility: [facility] Address: [address] [place] [address] Performed By: #### S #### [facility] CLIA [id number] [address] [place] [address] FINAL DIAGNOSIS Normal [facility] Comment on above: Order Comment: Speci men Type: TISSUE SPECIMEN Ordering Facility: [facility] Address: [address] [place] [address] Result Comment: A. R ight breast, needle core biopsy: - Benign breast ducts with focal epithelial hypercellularity in a background of paucicellular stroma with prominent vasculature and scattered foci of chronic lymphocytic inflammation, compatible with gynecomastia in the proper clinical and radiographic context. GL/JVA 04/18/2022 Performed By: #### S #### [facility] CLIA [id number] [address] [place] [address] FINAL PERFORMING LAB Normal [facility] Comment on above: Order Comment: Speci men Type: TISSUE SPECIMEN Ordering Facility: [facility] Address: [address] [place] [address] Result Comment: Diag nostic interpretation performed at [facility], [address] [place] [address] CLIA# [id number] Silhouette Artist: Nnamdi Burgos M.D. Performed By: #### S #### [facility] CLIA [id number] [address] [place] [address] GROSS DESCRIPTION Normal [facility] Comment on above: Order Comment: Speci men Type: TISSUE SPECIMEN Ordering Facility: [facility] Address: [address] [place] [address] Result Comment: A. B REAST CORE BIOPSY RIGHT Received in formalin labeled as "right breast" are multiple segments of cylindrical tissue aggregating to 1.2 x 0.5 x 0.2 cm, rick-yellow and of a soft consistency. The specimen was removed from the patient at 2:10 on 04/17/2022. On the same day, the specimen was placed in formalin at no time given. Totally submitted in formalin in one cassette. Gross examination performed at [facility], [address] [place] [address], [place] [address] JT 04/17/2022 10:23 PM Performed By: #### S #### [facility] CLIA [id number] [address] [place] [id number] OF [facility] US BREAST BIOPSY RIGHT (POC) SURG USE ONLYon 04-17-2022 [facility] CNOVon 04-10-2022 CNOV Office Visit (GENSWS ) JUNG ABURTO ([id number]) 1945 M Date Time Provider Department 04/10/22 9:30 AM MAL JOSEPH GENSWS During your visit today, [...] patient's last Mammogram screening? 2021 Last Colonoscopy: 2018 HEATHER Crabtree III, MD 04/10/2022 3:18 PM [...] daily. 0 (more content not included)... Normal [facility] Basophil percentageon 2021 Bilirubin [Mass/Vol] 0.60 mg/dL 0.20-1.00 [facility] Work Phone: Comment on above: For patients on eltr ombopag therapy, use of Dimension [place] TBIL is not recommended. Chloride [Moles/Vol] 106 mmol/L 98-107 [facility] Work Phone: Cholesterol [Mass/Vol] 200 mg/dL <200 [facility] Work Phone: Comment on above: <200 mg/dL Desirable 200-240 mg/dL Borderline >240 mg/dL High Risk Glucose [Mass/Vol] 97 mg/dL 74-106 [facility] Work Phone: Potassium [Moles/Vol] 4.0 mmol/L 3.5-5.1 [facility] Work Phone: Protein [Mass/Vol] 7.1 g/dL 6.4-8.2 [facility] Work Phone: Sodium [Moles/Vol] 137 mmol/L 136-145 [facility] Work Phone: Triglyceride [Mass/Vol] 63 mg/dL <199 [facility] Work Phone: Comment on above: The drugs N-Acetylcy steine and Metamizole may falsely depress this assay.Serum Triglycerides Reference Interval Normal <150 mg/dL Borderline high 150 - 199 mg/dL High 200 - 499 mg/dL Very High > or = 500 mg/dL Laboratory - Chemistry and C hemistry - challengeon 01-19-2022 ALP [Catalytic activity/Vol] 78 U/L 45-117 [facility] Work Phone: ALT [Catalytic activity/Vol] 27 U/L 16-61 [facility] Work Phone: CO2 [Moles/Vol] 25.0 mmol/L 21.0-32.0 [facility] Work Phone: Globulin (S) [Mass/Vol] 3.3 g/dL 2.2-4.2 [facility] Work Phone: Urea nitrogen/Creatinine [Mass ratio] 23.4 mg/mg 10-20 [facility] Work Phone: No Panel Informationon 01-19 Estimated GFR (MDRD) Amer 86 mL/min >60 [facility] Work Phone: Comment on above: GFR Calc Estimated GFR (MDRD) Non-Af Amer 71 mL/min >60 [facility] Work Phone: Comment on above: Non- GFR Calc Prostate Specific Antigen Screen 1.90 ng/mL 0.00-4.00 [facility] Work Phone: Comment on above: This test was perfor med using the TPSA assay method for [employer] chemistry system. Values obtained with differentassay methods cannot be used interchangably.When changing PSA assays in the course of monitoring apatient, additional sequential testing should be carriedout to confirm baseline values. Serum or plasma albumin pauline urement (mass/volume)on 01-19-2022 Albumin [Mass/Vol] 3.8 g/dL 3.2-5.0 [facility] Work Phone: Serum or plasma albumin/glob ulin mass ratioon 01-19-2022 Albumin/Globulin [Mass ratio] 1.2 {ratio} 0.9-2.4 [facility] Work Phone: Serum or plasma calcium pauline urement (mass/volume)on 01-19-2022 Calcium [Mass/Vol] 9.2 mg/dL 8.5-10.1 [facility] Work Phone: Serum or plasma cholesterol in HDL measurement (mass/volume)on 01-19-2022 Cholesterol in HDL [Mass/Vol] 77 mg/dL >40 [facility] Work Phone: Comment on above: The drugs N-Acetylcy steine and Metamizole may falsely depress this assay. Reference Range HDL <40 mg/dL Low HDL Cholesterol HDL >or= 60 mg/dL High HDL Cholesterol Serum or plasma cholesterol in VLDL measurement (mass/volume)on 01-19-2022 Cholesterol in VLDL [Mass/Vol] 13 mg/dL 5-40 [facility] Work Phone: Serum or plasma creatinine m easurement (mass/volume)on 01-19-2022 Creatinine [Mass/Vol] 1.07 mg/dL 0.70-1.30 [facility] Work Phone: Comment on above: The validity of the calculated GFR & GFRAA in patients over 70 years has not been determined. Clinical correlation is essential. Serum or plasma low density lipoprotein (LDL) cholesterol measurement (mass/volume)on 01-19-2022 Cholesterol in LDL [Mass/Vol] 110 mg/dL 0-130 [facility] Work Phone: Serum or plasma urea nitroge n measurement (mass/volume)on 01-19-2022 Urea nitrogen [Mass/Vol] 25 mg/dL 7-18 [facility] Work Phone: Thin prep Papanicolaou smear with manual screeningon 01-19-2022 Thin prep Papanicolaou smear with manual screening 22 U/L 15-37 [facility] Work Phone: Thin prep Papanicolaou smear with manual screening 6 5-15 [facility] Work Phone: Basophil percentageon 2021 Bilirubin [Mass/Vol] 0.50 mg/dL 0.20-1.00 [facility] Work Phone: Comment on above: For patients on eltr ombopag therapy, use of Dimension [place] TBIL is not recommended. Chloride [Moles/Vol] 104 mmol/L 98-107 [facility] Work Phone: Cholesterol [Mass/Vol] 230 mg/dL <200 [facility] Work Phone: Comment on above: <200 mg/dL Desirable 200-240 mg/dL Borderline >240 mg/dL High Risk Glucose [Mass/Vol] 89 mg/dL 74-106 [facility] Work Phone: Potassium [Moles/Vol] 4.1 mmol/L 3.5-5.1 [facility] Work Phone: Protein [Mass/Vol] 7.6 g/dL 6.4-8.2 [facility] Work Phone: Sodium [Moles/Vol] 138 mmol/L 136-145 [facility] Work Phone: Triglyceride [Mass/Vol] 83 mg/dL [facility] Work Phone: Comment on above: The drugs N-Acetylcy steine and Metamizole may falsely depress this assay.Serum Triglycerides Reference Interval Normal <150 mg/dL Borderline high 150 - 199 mg/dL High 200 - 499 mg/dL Very High > or = 500 mg/dL Laboratory - Chemistry and C hemistry - challengeon 10-05-2021 ALP [Catalytic activity/Vol] 85 U/L 45-117 [facility] Work Phone: ALT [Catalytic activity/Vol] 25 U/L 16-61 [facility] Work Phone: CO2 [Moles/Vol] 27.0 mmol/L 21.0-32.0 [facility] Work Phone: Globulin (S) [Mass/Vol] 3.5 g/dL 2.2-4.2 [facility] Work Phone: Urea nitrogen/Creatinine [Mass ratio] 22.3 mg/mg 10-20 [facility] Work Phone: No Panel Informationon 10-05 Estimated GFR (MDRD) Amer 95 mL/min >60 [facility] Work Phone: Comment on above: GFR Calc Estimated GFR (MDRD) Non-Af Amer 78 mL/min >60 [facility] Work Phone: Comment on above: Non- GFR Calc Hepatitis C Antibody Non-Reactive Nonreactive [facility] Work Phone: Comment on above: Non Reactive: < 0.8 Equivocal: >/= 0.8 to < 1.0 Reactive: >/= 1.0The CDC recommends that a reactive/equivocal HCV antibody result be followed up by the HCV Nucleic Acid Amplificationtest (084586) Vitamin B12 Level > 2000 pg/mL 211-911 [facility] Work Phone: Serum or plasma albumin pauline urement (mass/volume)on 10-05-2021 Albumin [Mass/Vol] 4.1 g/dL 3.2-5.0 [facility] Work Phone: Serum or plasma albumin/glob ulin mass ratioon 10-05-2021 Albumin/Globulin [Mass ratio] 1.2 {ratio} 0.9-2.4 [facility] Work Phone: Serum or plasma calcium pauline urement (mass/volume)on 10-05-2021 Calcium [Mass/Vol] 9.1 mg/dL 8.5-10.1 [facility] Work Phone: Serum or plasma cholesterol in HDL measurement (mass/volume)on 10-05-2021 Cholesterol in HDL [Mass/Vol] 79 mg/dL [facility] Work Phone: Comment on above: The drugs N-Acetylcy steine and Metamizole may falsely depress this assay. Reference Range HDL <40 mg/dL Low HDL Cholesterol HDL >or= 60 mg/dL High HDL Cholesterol Serum or plasma cholesterol in VLDL measurement (mass/volume)on 10-05-2021 Cholesterol in VLDL [Mass/Vol] 17 mg/dL 5-40 [facility] Work Phone: Serum or plasma creatinine m easurement (mass/volume)on 10-05-2021 Creatinine [Mass/Vol] 0.99 mg/dL 0.70-1.30 [facility] Work Phone: Comment on above: The validity of the calculated GFR & GFRAA in patients over 70 years has not been determined. Clinical correlation is essential. Serum or plasma folate measu rement (mass/volume)on 10-05-2021 Folate [Mass/Vol] 57.20 ng/mL 3.1-55.4 [facility] Work Phone: Serum or plasma low density lipoprotein (LDL) cholesterol measurement (mass/volume)on 10-05-2021 Cholesterol in LDL [Mass/Vol] 134 mg/dL 0-130 [facility] Work Phone: Serum or plasma urea nitroge n measurement (mass/volume)on 10-05-2021 Urea nitrogen [Mass/Vol] 22 mg/dL 7-18 [facility] Work Phone: Thin prep Papanicolaou smear with manual screeningon 10-05-2021 Thin prep Papanicolaou smear with manual screening 18 U/L 15-37 [facility] Work Phone: Thin prep Papanicolaou smear with manual screening 7 5-15 [facility] Work Phone: CBC, PLATELETS & MANUAL DIFF ([id number])Ordered By: Stars Analytical Lead on 06-05-2021 Basophils (Bld) [#/Vol] 0.1 10*3/uL Normal 0.0-0.2 [facility]; [facility] Work Phone: Comment on above: PATIENT WAS FASTINGP ERFORMED BY: [address] [id number] Information: NURSE DRAW; wellness labs Basophils/100 WBC (Bld) 1 % Normal [facility]; [facility] Medicine Work Phone: Comment on above: PATIENT WAS FASTINGP ERFORMED BY: [address] [id number] Information: NURSE DRAW; wellness labs Eosinophils (Bld) [#/Vol] 0.3 10*3/uL Normal 0.0-0.4 [facility]; [facility] Work Phone: Comment on above: PATIENT WAS FASTINGP ERFORMED BY: [place] [id number] [facility] [id number] Information: NURSE DRAW; wellness labs Eosinophils/100 WBC (Bld) 4 % Normal [facility]; [facility] Work Phone: Comment on above: PATIENT WAS FASTINGP ERFORMED BY: [address] [id number] Information: NURSE DRAW; wellness labs Erythrocyte distribution width (RBC) [Ratio] 12.3 % Normal 11.6-15.4 [facility]; [facility] Work Phone: Comment on above: PATIENT WAS FASTINGP ERFORMED BY: [place] [id number] [facility] [id number] Information: NURSE DRAW; wellness labs Hematocrit (Bld) [Volume fraction] 47.4 % Normal 37.5-51.0 [facility]; [facility] Work Phone: Comment on above: PATIENT WAS FASTINGP ERFORMED BY: [address] [id number] Information: NURSE DRAW; wellness labs Hemoglobin (Bld) [Mass/Vol] 16.0 g/dL Normal 13.0-17.7 [facility]; [facility] Work Phone: Comment on above: PATIENT WAS FASTINGP ERFORMED BY: [address] [id number] Information: NURSE DRAW; wellness labs Immature granulocytes (Bld) [#/Vol] 0.0 10*3/uL Normal 0.0-0.1 [facility]; [facility] Work Phone: Comment on above: PATIENT WAS FASTINGP ERFORMED BY: [address] [id number] Information: NURSE DRAW; wellness labs Immature granulocytes/100 WBC (Bld) 0 % Normal [facility]; [facility] Work Phone: Comment on above: PATIENT WAS FASTINGP ERFORMED BY: [address] [id number] Information: NURSE DRAW; wellness labs Lymphocytes (Bld) [#/Vol] 1.5 10*3/uL Normal 0.7-3.1 [facility]; [facility] Work Phone: Comment on above: PATIENT WAS FASTINGP ERFORMED BY: [address] [id number] Information: NURSE DRAW; wellness labs Lymphocytes/100 WBC (Bld) 19 % Normal [facility]; [facility] Work Phone: Comment on above: PATIENT WAS FASTINGP ERFORMED BY: [address] [id number] Information: NURSE DRAW; wellness labs MCH (RBC) [Entitic mass] 33.7 pg Abnormal 26.6-33.0 [facility]; [facility] Work Phone: Comment on above: PATIENT WAS FASTINGP ERFORMED BY: CLIFF [facility] [id number] [id number] Information: NURSE DRAW; wellness labs MCHC (RBC) [Mass/Vol] 33.8 g/dL Normal 31.5-35.7 [facility] prehensive Internal Medicine; [facility] Work Phone: Comment on above: PATIENT WAS FASTINGP ERFORMED BY: CLIFF [address] [id number] Information: NURSE DRAW; wellness labs MCV (RBC) [Entitic vol] 100 fL Abnormal 79-97 [facility]; [facility] Work Phone: Comment on above: PATIENT WAS FASTINGP ERFORMED BY: CLIFF [address] [id number] Information: NURSE DRAW; wellness labs Monocytes (Bld) [#/Vol] 0.5 10*3/uL Normal 0.1-0.9 [facility]; [facility] Work Phone: Comment on above: PATIENT WAS FASTINGP ERFORMED BY: [address] [id number] Information: NURSE DRAW; wellness labs Monocytes/100 WBC (Bld) 6 % Normal [facility]; [facility] Work Phone: Comment on above: PATIENT WAS FASTINGP ERFORMED BY: [address] [id number] Information: NURSE DRAW; wellness labs Neutrophils (Bld) [#/Vol] 5.3 10*3/uL Normal 1.4-7.0 [facility]; [facility] Work Phone: Comment on above: PATIENT WAS FASTINGP ERFORMED BY: [address] [id number] Information: NURSE DRAW; wellness labs Neutrophils/100 WBC (Bld) 70 % Normal [facility]; [facility] Work Phone: Comment on above: PATIENT WAS FASTINGP ERFORMED BY: CLIFF [facility] [id number] [address] [facility] [place] [id number] Information: NURSE DRAW; wellness labs Platelets (Bld) [#/Vol] 226 10*3/uL Normal 150-450 [facility] Internal Medicine; [facility] Internal Medicine Work Phone: Comment on above: PATIENT WAS FASTINGP ERFORMED BY: CLIFF [facility] [id number] Rod[address] RoadFormerly [facility] [id number] Information: NURSE DRAW; wellness labs RBC (Bld) [#/Vol] 4.75 10*6/uL Normal 4.14-5.80 [facility] Internal Medicine; [facility] Internal Medicine Work Phone: Comment on above: PATIENT WAS FASTINGP ERFORMED BY: CLIFF LabGavino JohnsonSalxsx4788 [facility] [facility] [id number] Information: NURSE DRAW; wellness labs WBC (Bld) [#/Vol] 7.6 10*3/uL Normal 3.4-10.8 [facility] Internal Medicine; [facility] Internal Medicine Work Phone: Comment on above: PATIENT WAS FASTINGP ERFORMED BY: CLIFF LabGavino JohnsonIonspc5863 [facility] [id number] Information: NURSE DRAW; wellness labs METABOLIC PANEL, COMPREHENSI VE (01380)Ordered By: [employer] on 06-05-2021 Albumin [Mass/Vol] 4.7 g/dL Normal 3.7-4.7 [facility] Internal Medicine; [facility] Internal Medicine Work Phone: Comment on above: PATIENT WAS FASTINGP ERFORMED BY: CLIFF [facility] [id number] [facility] [id number] Albumin/Globulin [Mass ratio] 2.2 {ratio} Normal 1.2-2.2 [facility] Internal Medicine; [facility] Internal Medicine Work Phone: Comment on above: PATIENT WAS FASTINGP ERFORMED BY: CLIFF [facility] Lwkara1731 [address] [facility] [place] [id number] ALP [Catalytic activity/Vol] 89 U/L Normal 44-121 [facility]; [facility] Work Phone: Comment on above: Please note refere nce interval change PATIENT WAS FASTINGP ERFORMED BY: CB [facility] [id number] Rodas RoadDublin [place] [id number] ALT [Catalytic activity/Vol] 15 U/L Normal 0-44 [facility]; [facility] Work Phone: Comment on above: PATIENT WAS FASTINGP ERFORMED BY: CB [facility] Piqrvy9494 Rodas RoadDublin [place] [id number] AST [Catalytic activity/Vol] 17 U/L Normal 0-40 [facility]; [facility] Work Phone: Comment on above: PATIENT WAS FASTINGP ERFORMED BY: CB [facility] Asikft8408 Rodas RoadDublin [place] [id number] Bilirubin [Mass/Vol] 0.3 mg/dL Normal 0.0-1.2 Comp rehensive Internal Medicine; [facility] Work Phone: Comment on above: PATIENT WAS FASTINGP ERFORMED BY: CB [facility] [id number] Rodas RoadDublin [place] [id number] Calcium [Mass/Vol] 9.7 mg/dL Normal 8.6-10.2 [facility] Internal [facility]; [facility] Work Phone: Comment on above: PATIENT WAS FASTINGP ERFORMED BY: CB [facility] [id number] Rodas RoadDublin [place] [id number] Chloride [Moles/Vol] 104 mmol/L Normal 96-106 [facility]; [facility] Work Phone: Comment on above: PATIENT WAS FASTINGP ERFORMED BY: CB [facility] [id number] [address] RoadDublin [place] [id number] CO2 [Moles/Vol] 21 mmol/L Normal 20-29 [facility] Internal Medicine; [facility] Work Phone: Comment on above: PATIENT WAS FASTINGP ERFORMED BY: CB [facility] [id number] Rodas RoadDublin [place] [id number] Creatinine [Mass/Vol] 1.00 mg/dL Normal 0.76-1.27 [facility] prehensive Internal Medicine; [facility] Work Phone: Comment on above: PATIENT WAS FASTINGP ERFORMED BY: [facility] Ejicjl5161 [facility] [id number] GFR/1.73 sq M.predicted among blacks CKD-EPI (S/P/Bld) [Vol rate/Area] 84 mL/min/1.73 Normal [facility]; [facility] Work Phone: Comment on above: [facility] currently [facility] eGFR in compliance with the current recommendations of the National Kidney Foundation. [facility] will update reporting as new guidelines are published from the NKF-ASN Task force. PATIENT WAS FASTINGP ERFORMED BY: [facility] [id number] [facility] [id number] GFR/1.73 sq M.predicted among non-blacks CKD-EPI (S/P/Bld) [Vol rate/Area] 73 mL/min/1.73 Normal [facility]; [facility] Work Phone: Comment on above: PATIENT WAS FASTINGP ERFORMED BY: [facility] Unhlat0386 [facility] [id number] Globulin (S) [Mass/Vol] 2.1 g/dL Normal 1.5-4.5 [facility] Internal Medicine; [facility] Work Phone: Comment on above: PATIENT WAS FASTINGP ERFORMED BY: [facility]6370 [facility] [id number] Glucose [Mass/Vol] 87 mg/dL Normal 65-99 [facility] Internal [facility]; [facility] Work Phone: Comment on above: PATIENT WAS FASTINGP ERFORMED BY: [facility]6370 [facility] [id number] Potassium [Moles/Vol] 4.0 mmol/L Normal 3.5-5.2 [facility] prehensive Internal Medicine; [facility] Work Phone: Comment on above: PATIENT WAS FASTINGP ERFORMED BY: [facility]6370 [address] RoadDublin [place] [id number] Protein [Mass/Vol] 6.8 g/dL Normal 6.0-8.5 [facility] Internal [facility]; [facility] Work Phone: Comment on above: PATIENT WAS FASTINGP ERFORMED BY: CB [facility] Oqwpop8093 [address] RoadDublin [place] [id number] Sodium [Moles/Vol] 139 mmol/L Normal 134-144 [facility] Internal [facility]; [facility] Work Phone: Comment on above: PATIENT WAS FASTINGP ERFORMED BY: CB [facility] [id number] [address] RoadDublin [place] [id number] Urea nitrogen [Mass/Vol] 21 mg/dL Normal 8-27 [facility]; [facility] Work Phone: Comment on above: PATIENT WAS FASTINGP ERFORMED BY: CB [facility] Abjfoc9004 [address] RoadDublin [place] [id number] Urea nitrogen/Creatinine [Mass ratio] 21 mg/mg Normal 10-24 [facility]; [facility] Work Phone: Comment on above: PATIENT WAS FASTINGP ERFORMED BY: CB [facility] [id number] Rodas RoadDublin [place] [id number] Office Visit: hernia repair f/uon 04-30-2017 Documentation of current medications (procedure) Done Invalid Interpretation Code [facility] [employer] Work Phone: Fall risk assessment No Invalid Interpretation Code [facility] Work Phone: Tobacco smoking status NHIS Never Invalid Interpretation Code [facility] Work Phone: Tobacco use CPHS Never smoker Invalid Interpretation Code [facility] [employer] Work Phone: Office Visiton 04-15-2017 Documentation of current medications (procedure) Done Invalid Interpretation Code [facility] Work Phone: Fall risk assessment No Invalid Interpretation Code [facility] [employer] Work Phone: Tobacco smoking status NHIS Never Invalid Interpretation Code [facility] [employer] Work Phone: Tobacco use CPHS Never smoker Invalid Interpretation Code [facility] Work Phone: Flow Cytometryon 2017 Comment See Below Normal [facility] Comment on above: Result Comment: Viab ility 7AAD = 92%The B-cells are polytypic and the T-cells show no elmore T-cellantigen deletion. CD4/CD8 ratio is 1.8:1. CD56+ NK-cells andCD57+ T-LGL's are within normal limits. Performed By: #### F LOWG ####[place] [address] Flow Cytometry Rslt: See Sep Report Normal [facility] Comment on above: Result Comment: Thes [...] [facility] Naseem Jackson M.D., Silhouette Artist [address] [place], [place] [id number] Performed By: #### F LOWG ####[place] [address] Interpretation: See Below Normal [facility] Comment on above: Result Comment: In t he sample analyzed, there is no evidence of B or T-celllymphoproliferative disorders. Performed By: #### F LOWG ####[place] [id number] Flow Cytometryon 04-10-2017 Source: Blood Normal [facility] Comment on above: Performed By: #### F LOWG ####[address] [address] [place] Venipunctureon 017 Green Venipuncture COMPLETED Normal [facility] Comment on above: Performed By: #### G VENP ####[place] [id number] LD,Total Bloodon 04-09-2017 LD,Total Blood 207 U/L Normal 84-246 [facility] Comment on above: Performed By: #### L DH ####[address] [address] Oncology Hemogram/Diffon Basophils Auto #/vol (Bld) 0.04 thou/cmm Normal 0.00-0.08 [facility] Comment on above: Performed By: #### G OHEM ####[address] [address] Basophils/100 WBC Auto (Bld) 0.6 % Normal [facility] Comment on above: Performed By: #### G OHEM ####[address] [address] Eosinophils 0.35 thou/cmm Normal 0.00-0.36 [facility] Comment on above: Performed By: #### G OHEM ####[place] [address] Eosinophils/100 leukocytes 5.1 % Normal [facility] Comment on above: Performed By: #### G OHEM ####[address] [address] Erythrocyte distribution width Auto Ratio (RBC) 11.7 % Low 11.8-14.5 [facility] Comment on above: Performed By: #### G OHEM ####[address] [address] Erythrocytes (RBC) 4.68 mil/cmm Normal 4.22-5.80 [facility] Comment on above: Performed By: #### G OHEM ####[address] [address] Hematocrit (HCT) 44.7 % Normal 39.6-50.7 [facility] Comment on above: Performed By: #### G OHEM ####[place] [address] Hemoglobin mass conc (Bld) 16.2 g/dL Normal 13.2-17.4 [facility] Comment on above: Performed By: #### G OHEM ####[facility]1 [place] [address] Lymphocytes 1.63 thou/cmm Normal 0.68-2.93 [facility] Comment on above: Performed By: #### G OHEM ####[facility]1 [place] [address] Lymphocytes/100 leukocytes 24.0 % Normal [facility] Comment on above: Performed By: #### G OHEM ####[place] [address] MCH 34.6 pg High 27.4-32.8 [facility] Comment on above: Performed By: #### G OHEM ####[place] [address] MCHC mass conc (RBC) 36.2 % High 31.9-35.6 [facility] Comment on above: Performed By: #### G OHEM ####[place] [address] MCV 95.5 fL Normal 81.8-95.6 [facility] Comment on above: Performed By: #### G OHEM ####[place] [address] Monocytes 0.50 thou/cmm Normal 0.19-0.80 [facility] Comment on above: Performed By: #### G OHEM ####[place] [address] Monocytes/100 leukocytes 7.4 % Normal [facility] Comment on above: Performed By: #### G OHEM ####[place] [address] Platelet mean volume (PMV) 11.0 fL Normal 8.8-12.1 [facility] Comment on above: Performed By: #### G OHEM ####[place] [address] Platelets 201 thou/cmm Normal 150-370 [facility] Comment on above: Performed By: #### G OHEM ####[place] [address] Seg Neutrophil 62.9 % Normal [facility] Comment on above: Performed By: #### G OHEM ####[facility]1 [place] [address] Seg. Neut.# 4.28 thou/cmm Normal 1.35-7.21 [facility] Comment on above: Performed By: #### G OHEM ####[place] [address] WBC (Leukocytes) 6.8 thou/cmm Normal 4.4-9.7 [facility] Comment on above: Performed By: #### G OHEM ####[place] [address] Uric Acid Bloodon 04-09-2017 Uric Acid Blood 5.6 mg/dL Normal 3.5-7.2 [facility] Comment on above: Performed By: #### U OLIVIA ####[place] [address] Replaced Document: Siddharth FARAH Observationson 09-25-2016 electrocardiogram interpretation Sinus Rhythm Voltage criteria for LVH (R(V5) exceeds 2.60 mV). -Nonspecific ST depression -Seen with left ventricular hypertrophy (strain) or digitalis effect. ABNORMAL Invalid Interpretation Code [facility] [employer] Work Phone: GE use only - for LinkLogic import when terms are not otherwise specified 436 ms Invalid Interpretation Code [facility] [employer] Work Phone: P wave axis, electrocardiogram 69 deg Invalid Interpretation Code [facility] [employer] Work Phone: ID interval, electrocardiogram 170 ms Invalid Interpretation Code [facility] [employer] Work Phone: Pulse (Heart Rate) 66 /min Invalid Interpretation Code [facility] [employer] Work Phone: QRS axis, electrocardiogram 19 deg Invalid Interpretation Code [facility] [employer] Work Phone: QRS duration, electrocardiogram 94 ms Invalid Interpretation Code [facility] [employer] Work Phone: QT interval, electrocardiogram new path ms Invalid Interpretation Code [facility] [employer] Work Phone: T wave axis, electrocardiogram 41 deg Invalid Interpretation Code [facility] [employer] Work Phone: Clinical Lists Update: Prelo machine ii coremaker 09-21-2016 Left ventricular Ejection fraction 55 % Invalid Interpretation Code [facility] [employer] Work Phone: Clinical Lists Update: Prelo machine ii coremaker 06-27-2016 Cholesterol 191 mg/dL Invalid Interpretation Code [facility] [employer] Work Phone: HDL Cholesterol 76 mg/dL Invalid Interpretation Code [facility] [employer] Work Phone: LDL Cholesterol 101 mg/dL Invalid Interpretation Code [facility] [employer] Work Phone: Triglyceride 69 mg/dL Invalid Interpretation Code [facility] [employer] Work Phone: Office Visiton 09-23-2015 General cardiovascular disease 10Y risk [#] [place].D'Agostino 6 % Invalid Interpretation Code [facility] [employer] Work Phone: Lab Report: Lipid Profileon 09-17-2015 very low density lipoproteins 12 mg/dL Invalid Interpretation Code 5-40 [facility] [employer] Work Phone: Lab Report: Liver Profileon 09-17-2015 Alanine aminotransferase (ALT) 28 U/L Invalid Interpretation Code 12-78 [facility] [employer] Work Phone: Albumin 3.8 g/dL Invalid Interpretation Code 3.4-5.0 [facility] [employer] Work Phone: Alkaline phosphatase (ALP) 75 U/L Invalid Interpretation Code 50-136 [facility] [employer] Work Phone: Aspartate aminotransferase (AST) 18 U/L Invalid Interpretation Code 15-37 [facility] [employer] Work Phone: Bilirubin (direct) 0.14 mg/dL Invalid Interpretation Code 0.00-0.30 [facility] [employer] Work Phone: Bilirubin (total) 0.50 mg/dL Invalid Interpretation Code 0.20-1.00 [facility] [employer] Work Phone: Globulin 3.4 g/dL Invalid Interpretation Code 2.3-3.5 [facility] [employer] Work Phone: Protein 7.2 g/dL Invalid Interpretation Code 6.4-8.2 [facility] [employer] Work Phone: Lab Reporton 07-02-2015 Chloride 105 mmol/L Invalid Interpretation Code [facility] [employer] Work Phone: CO2 23.0 mmol/L Invalid Interpretation Code [facility] [employer] Work Phone: Creatinine 1.19 mg/dL Invalid Interpretation Code [facility] [employer] Work Phone: Potassium 4.0 mmol/L Invalid Interpretation Code [facility] [employer] Work Phone: Sodium 140 mmol/L Invalid Interpretation Code [facility] [employer] Work Phone: Urea nitrogen 21 mg/dL Invalid Interpretation Code [facility] [employer] Work Phone: Office Visiton 08-17-2014 cardiac risk group B Invalid Interpretation Code [facility] [employer] Work Phone: Clinical Lists Update: Prelo machine ii coremaker 06-04-2014 Anion gap 9 mmol/L Invalid Interpretation Code [facility] [employer] Work Phone: BUN/Creatinine Ratio 17.3 mg/mg Invalid Interpretation Code [facility] [employer] Work Phone: Erythrocytes (RBC) 4.56 10*6/uL Low [facility] [employer] Work Phone: Glucose 84 mg/dL Invalid Interpretation Code [facility] [employer] Work Phone: Hematocrit (HCT) 44.2 % Invalid Interpretation Code [facility] [employer] Work Phone: Hemoglobin (HGB) 15.9 g/dL Invalid Interpretation Code [facility] [employer] Work Phone: MCH 34.9 pg High [facility] [employer] Work Phone: MCHC 36.0 g/dL Invalid Interpretation Code [facility] [employer] Work Phone: MCV 96.9 fL High [facility] [employer] Work Phone: Platelets 225 10*3/mm3 Invalid Interpretation Code [facility] [employer] Work Phone: Thyroid stimulating hormone (TSH) 1.72 u[iU]/mL Invalid Interpretation Code [facility] [employer] Work Phone: WBC (Leukocytes) 5.6 10*3/uL Invalid Interpretation Code [facility] [employer] Work Phone: Clinical Lists Update: Prelo machine ii coremaker 06-06-2012 Albumin/Globulin Ratio 1.1 {ratio} Invalid Interpretation Code [facility] [employer] Work Phone: basophils as percent of blood leukocytes, manual count 0.9 % Invalid Interpretation Code [facility] [employer] Work Phone: Calcium 9.1 mg/dL Invalid Interpretation Code [facility] [employer] Work Phone: eosinophils as percent of blood leukocytes, manual count 7.1 % High [facility] [employer] Work Phone: Globulin 3.5 g/dL Invalid Interpretation Code [facility] [employer] Work Phone: Lymphocytes/100 leukocytes 26.3 % Invalid Interpretation Code [facility] [employer] Work Phone: Monocytes/100 leukocytes 6.5 % Invalid Interpretation Code [facility] [employer] Work Phone: neutrophils, band form as percent of blood leukocytes, manual count 59.2 % Invalid Interpretation Code [facility] [employer] Work Phone: Office Visiton 04-17-2012 Colonoscopy (procedure) Colonoscopy (procedure) Invalid Interpretation Code [facility] [employer] Work Phone: Vital Signs Date Time Vital Sign Value Performing Clinician Facility 03-02-2025 07:20-0400 Body temperature 97.8 [degF] Dr. Francheska Alonzo DO Work Phone: [facility] 03-02-2025 07:20-0400 Diastolic blood pressure 85 mm[Hg] Dr. Francheska Alonzo DO Work Phone: [facility] 03-02-2025 07:20-0400 Heart rate 55 /min Dr. Francheska Alonzo DO Work Phone: [facility] 03-02-2025 07:20-0400 Respiratory rate 18 /min Dr. Francheska Alonzo DO Work Phone: [facility] 03-02-2025 07:20-0400 SaO2% (BldA) [Mass fraction] 100 % Dr. Francheska Alonzo DO Work Phone: [facility] 03-02-2025 07:20-0400 Systolic blood pressure 125 mm[Hg] Dr. Francheska Alonzo DO Work Phone: [facility] 03-02-2025 07:15-0400 Inhaled oxygen flow rate 95 L/min Dr. Francheska Alonzo DO Work Phone: [facility] 03-02-2025 06:01-0400 Body height 182.[address] Francheska Alonzo DO Work Phone: [facility] 03-02-2025 06:01-0400 Body mass index (BMI) [Ratio] 23.1 kg/m2 Dr. Francheska Alonzo DO Work Phone: [facility] 03-02-2025 06:01-0400 Body weight 77.[address] Francheska Alonzo DO Work Phone: [facility] 01-26-2025 12:59-0400 Body height 182.[address] Francheska Alonzo DO Work Phone: [facility] 01-26-2025 12:59-0400 Body mass index (BMI) [Ratio] 23 kg/m2 Dr. Francheska lAonzo DO Work Phone: [facility] 01-26-2025 12:59-0400 Body weight 77.[address] Francheska Alonzo DO Work Phone: [facility] 01-26-2025 12:59-0400 Diastolic blood pressure 67 mm[Hg] Dr. Francheska Alonzo DO Work Phone: [facility] 01-26-2025 12:59-0400 Heart rate 55 /min Dr. Francheska Alonzo DO Work Phone: [facility] 01-26-2025 12:59-0400 Respiratory rate 16 /min Dr. Francheska Alonzo DO Work Phone: [facility] 01-26-2025 12:59-0400 Systolic blood pressure 103 mm[Hg] Dr. Francheska Alonzo DO Work Phone: [facility] 12-03-2023 13:04-0400 Body height 182.[address] Pritchard Fast Work Phone: [facility] 12-03-2023 13:04-0400 Body mass index (BMI) [Ratio] 23.2 kg/m2 Dr. Pritchard Fast Work Phone: [facility] 12-03-2023 13:04-0400 Body weight 77.[address] Pritchard Fast Work Phone: [facility] 12-03-2023 13:04-0400 Diastolic blood pressure 74 mm[Hg] Dr. Francheska Alonzo Work Phone: [facility] 12-03-2023 13:04-0400 Heart rate 55 /min Dr. Pritchard Fast Work Phone: [facility] 12-03-2023 13:04-0400 Respiratory rate 16 /min Dr. Pritchard Fast Work Phone: [facility] 12-03-2023 13:04-0400 Systolic blood pressure 126 mm[Hg] Dr. Francheska Alonzo Work Phone: [facility] 08-05-2023 15:02-0500 Body height 182.[address] Francheska Alonzo Work Phone: [facility] 08-05-2023 15:02-0500 Body mass index (BMI) [Ratio] 23.2 kg/m2 Dr. Francheska Alonzo Work Phone: [facility] 08-05-2023 15:02-0500 Body weight 77.[address] Pritchard Fast Work Phone: [facility] 08-05-2023 15:02-0500 Respiratory rate 16 /min Dr. Pritchard Fast Work Phone: [facility] 06-03-2023 11:02-0400 Body height 185.42 cm Naida Montenegro CMA [facility] Work Phone: 06-03-2023 11:02-0400 Body mass index (BMI) [Ratio] 23.27 kg/m2 Naida Montenegro [facility] Work Phone: 06-03-2023 11:02-0400 Body surface area Derived from formula 2.04 m2 Naida Montenegro [facility] Work Phone: 06-03-2023 11:02-0400 Body temperature 99 [degF] [facility] Work Phone: Comment on above: Method: Thermal Scan 06-03-2023 11:02-0400 Body weight 80 [facility] Work Phone: 06-03-2023 11:02-0400 Diastolic blood pressure 70 mm[Hg] Naida Montenegro [facility] Work Phone: Comment on above: Patient Position: Sitting; Cuff Location : Left Arm; Cuff Size: Standard 06-03-2023 11:02-0400 Heart rate 61 /min Naida Montenegro [facility] Work Phone: Comment on above: Pattern: Regular 06-03-2023 11:02-0400 Respiratory rate 16 /min Naida Montenegro [facility] Work Phone: Comment on above: Pattern: Unlabored 06-03-2023 11:02-0400 Systolic blood pressure 104 mm[Hg] [facility] Work Phone: Comment on above: Patient Position: Sitting; Cuff Location : Left Arm; Cuff Size: Standard 02-25-2023 12:54-0400 Body height 182.[address] Francheska Alonzo Work Phone: [facility] 02-25-2023 12:54-0400 Body mass index (BMI) [Ratio] 24 kg/m2 Dr. Francheska Alonzo Work Phone: [facility] 02-25-2023 12:54-0400 Body weight 80.[address] Francheska Fast Work Phone: [facility] 02-25-2023 12:54-0400 Diastolic blood pressure 75 mm[Hg] Dr. Pritchard Fast Work Phone: [facility] 02-25-2023 12:54-0400 Heart rate 52 /min Dr. Pritchard Fast Work Phone: [facility] 02-25-2023 12:54-0400 SaO2% (BldA) [Mass fraction] 96 % Dr. Pritchard Fast Work Phone: [facility] 02-25-2023 12:54-0400 Systolic blood pressure 143 mm[Hg] Dr. Pritchard Fast Work Phone: [facility] 02-25-2023 10:38-0400 Body height 185.42 cm Naida Montenegro [facility] Work Phone: 02-25-2023 10:38-0400 Body mass index (BMI) [Ratio] 23.22 kg/m2 Naida Montenegro [facility] Work Phone: 02-25-2023 10:38-0400 Body surface area Derived from formula 2.04 m2 Naida Montenegro [facility] Work Phone: 02-25-2023 10:38-0400 Body temperature 98.2 [degF] Naida Montenegro [facility] Work Phone: Comment on above: Method: Thermal Scan 02-25-2023 10:38-0400 Body weight 79.83 kg Naida Montenegro [facility] Work Phone: 02-25-2023 10:38-0400 Diastolic blood pressure 70 mm[Hg] Naida Montenegro [facility] Work Phone: Comment on above: Patient Position: Sitting; Cuff Location : Left Arm; Cuff Size: Standard 02-25-2023 10:38-0400 Heart rate 63 /min Naida Raek [facility] Work Phone: Comment on above: Pattern: Regular 02-25-2023 10:38-0400 Respiratory rate 16 /min Naida Alexsofia [facility] Work Phone: Comment on above: Pattern: Unlabored 02-25-2023 10:38-0400 SaO2% (BldA) [Mass fraction] 99 % Naida Alexsofia [facility] Work Phone: Comment on above: Room air 02-25-2023 10:38-0400 Systolic blood pressure 118 mm[Hg] Naida Alexsoifa [facility] Work Phone: Comment on above: Patient Position: Sitting; Cuff Location : Left Arm; Cuff Size: Standard 02-13-2023 08:28-0400 Body temperature 97.6 [degF] Dr. Pritchard Fast Work Phone: [facility] 02-13-2023 08:28-0400 Diastolic blood pressure 86 mm[Hg] Dr. Pritchard Fast Work Phone: [facility] 02-13-2023 08:28-0400 Heart rate 54 /min Dr. rPitchard Fast Work Phone: [facility] 02-13-2023 08:28-0400 Respiratory rate 16 /min Dr. Pritchard Fast Work Phone: [facility] 02-13-2023 08:28-0400 SaO2% (BldA) [Mass fraction] 99 % Dr. Pritchard Fast Work Phone: [facility] 02-13-2023 08:28-0400 Systolic blood pressure 135 mm[Hg] Dr. Pritchard Fast Work Phone: [facility] 02-13-2023 06:48-0400 Body height 182.[address] Pritchard Fast Work Phone: [facility] 02-13-2023 06:48-0400 Body mass index (BMI) [Ratio] 23.9 kg/m2 Dr. Pritchard Fast Work Phone: [facility] 02-13-2023 06:48-0400 Body weight [address] Pritchard Fast Work Phone: [facility] 01-14-2023 13:34-0400 Body mass index (BMI) [Ratio] 21.7 kg/m2 Dr. Pritchard Fast Work Phone: [facility] 01-14-2023 13:34-0400 Body weight 72.[address] Pritchard Fast Work Phone: [facility] 01-14-2023 13:34-0400 Diastolic blood pressure 79 mm[Hg] Dr. Pritchard Fast Work Phone: [facility] 01-14-2023 13:34-0400 Heart rate 61 /min Dr. Pritchard Fast Work Phone: [facility] 01-14-2023 13:34-0400 SaO2% (BldA) [Mass fraction] 98 % Dr. Pritchard Fast Work Phone: [facility] 01-14-2023 13:34-0400 Systolic blood pressure 133 mm[Hg] Dr. Pritchard Fast Work Phone: [facility] 12-03-2022 10:08-0400 Body height 184.[address] Pritchard Fast Work Phone: [facility] 12-03-2022 10:08-0400 Body weight 75.[address] Pritchard Fast Work Phone: [facility] 12-03-2022 06:55-0400 Body mass index (BMI) [Ratio] 21.9 kg/m2 Dr. Pritchard Fast Work Phone: [facility] 11-29-2022 12:53-0400 Body mass index (BMI) [Ratio] 22.3 kg/m2 Dr. Pritchard Fast Work Phone: [facility] 11-29-2022 12:53-0400 Body weight 76.[address] Pritchard Fast Work Phone: [facility] 11-29-2022 12:53-0400 Diastolic blood pressure 72 mm[Hg] Dr. Pritchard Fast Work Phone: [facility] 11-29-2022 12:53-0400 Heart rate 55 /min Dr. Pritchard Fast Work Phone: [facility] 11-29-2022 12:53-0400 Respiratory rate 18 /min Dr. Pritchard Fast Work Phone: [facility] 11-29-2022 12:53-0400 SaO2% (BldA) [Mass fraction] 100 % Dr. Pritchard Fast Work Phone: [facility] 11-29-2022 12:53-0400 Systolic blood pressure 133 mm[Hg] Dr. Pritchard Fast Work Phone: [facility] 11-12-2022 10:23-0500 Body height 185.42 cm Naida Montenegro [facility] Work Phone: 11-12-2022 10:23-0500 Body mass index (BMI) [Ratio] 23.09 kg/m2 Naida Montenegro [facility] Work Phone: 11-12-2022 10:23-0500 Body surface area Derived from formula 2.03 m2 Naida Montenegro [facility] Work Phone: 11-12-2022 10:23-0500 Body temperature 98.4 [degF] Naida Montenegro [facility] Work Phone: Comment on above: Method: Thermal Scan 11-12-2022 10:23-0500 Body weight 79.38 kg Naida Montenegro [facility] Work Phone: 11-12-2022 10:23-0500 Diastolic blood pressure 68 mm[Hg] Naida Montenegro [facility] Work Phone: Comment on above: Patient Position: Sitting; Cuff Location : Left Arm; Cuff Size: Standard 11-12-2022 10:23-0500 Heart rate 70 /min Naida AlexanabellDiagonal View [facility] Work Phone: Comment on above: Pattern: Regular 11-12-2022 10:23-0500 Respiratory rate 16 /min Naida RaeDiagonal View [facility] Work Phone: Comment on above: Pattern: Unlabored 11-12-2022 10:23-0500 Systolic blood pressure 120 mm[Hg] Naida AlexAffinity China [facility] Work Phone: Comment on above: Patient Position: Sitting; Cuff Location : Left Arm; Cuff Size: Standard 10-16-2022 14:07-0500 Body mass index (BMI) [Ratio] 23.2 kg/m2 Dr. Francheska Alonzo Work Phone: [facility] 10-16-2022 14:07-0500 Body weight 79.[address] Francheska Alonzo Work Phone: [facility] 10-16-2022 14:07-0500 Diastolic blood pressure 67 mm[Hg] Dr. Francheska Alonzo Work Phone: [facility] 10-16-2022 14:07-0500 Heart rate 59 /min Dr. Francheska Alonzo Work Phone: [facility] 10-16-2022 14:07-0500 Respiratory rate 18 /min Dr. Pritchard Fast Work Phone: [facility] 10-16-2022 14:07-0500 Systolic blood pressure 125 mm[Hg] Dr. Francheska Alonzo Work Phone: [facility] 07-30-2022 13:24-0500 Body height 185.42 cm Naida QRcao [facility] Work Phone: 07-30-2022 13:24-0500 Body mass index (BMI) [Ratio] 22.69 kg/m2 [employer] [facility] Work Phone: 07-30-2022 13:24-0500 Body surface area Derived from formula 2.02 m2 Naida Montenegro [facility] Work Phone: 07-30-2022 13:24-0500 Body temperature 97 [degF] Naida Montenegro [facility] Work Phone: Comment on above: Method: Thermal Scan 07-30-2022 13:24-0500 Body weight 78.02 kg Naida Montenegro [facility] Work Phone: 07-30-2022 13:24-0500 Diastolic blood pressure 72 mm[Hg] Naida Montenegro [facility] Work Phone: Comment on above: Patient Position: Sitting; Cuff Location : Left Arm; Cuff Size: Standard 07-30-2022 13:24-0500 Heart rate 68 /min Naida Montenegro [facility] Work Phone: Comment on above: Pattern: Regular 07-30-2022 13:24-0500 Respiratory rate 16 /min Naida Montenegro [facility] Work Phone: Comment on above: Pattern: Unlabored 07-30-2022 13:24-0500 Systolic blood pressure 118 mm[Hg] Naida Montenegro [facility] Work Phone: Comment on above: Patient Position: Sitting; Cuff Location : Left Arm; Cuff Size: Standard 04-10-2022 09:35-0400 Body height 185.4 cm Mal Joseph MD Work Phone: [facility] 04-10-2022 09:35-0400 Body weight 79.29 kg Mal Joseph MD Work Phone: [facility] 04-10-2022 09:35-0400 Diastolic blood pressure 84 mm[Hg] Mal Joseph MD Work Phone: [facility] 04-10-2022 09:35-0400 Heart rate 76 /min Mal Joseph MD Work Phone: [facility] 04-10-2022 09:35-0400 SaO2% (BldA) [Mass fraction] 98 % Mal Joseph MD Work Phone: [facility] 04-10-2022 09:35-0400 Systolic blood pressure 136 mm[Hg] Mal Joseph MD Work Phone: [facility] 03-23-2022 10:11-0400 Body height 185.42 cm [facility] Work Phone: 03-23-2022 10:11-0400 Body mass index (BMI) [Ratio] 22.69 kg/m2 [facility] Work Phone: 03-23-2022 10:11-0400 Body surface area Derived from formula 2.02 m2 [facility] Work Phone: 03-23-2022 10:11-0400 Body temperature 97 [degF] [facility] Work Phone: Comment on above: Method: Thermal Scan 03-23-2022 10:11-0400 [facility] Work Phone: 03-23-2022 10:11-0400 Diastolic blood pressure 62 mm[Hg] [facility] Work Phone: Comment on above: Patient Position: Sitting; Cuff Location : Left Arm; Cuff Size: Standard 03-23-2022 10:11-0400 Heart rate 62 /min [facility] Work Phone: Comment on above: Pattern: Regular 03-23-2022 10:11-0400 Respiratory rate 16 /min [facility] Work Phone: Comment on above: Pattern: Unlabored 03-23-2022 10:11-0400 Systolic blood pressure 104 mm[Hg] Naida Montenegro [facility] Work Phone: Comment on above: Patient Position: Sitting; Cuff Location : Left Arm; Cuff Size: Standard 01-24-2022 11:00-0400 Body height 185.42 cm Naida Montenegro [facility] Work Phone: 01-24-2022 11:00-0400 Body mass index (BMI) [Ratio] 22.69 kg/m2 [facility] Work Phone: 01-24-2022 11:00-0400 Body surface area Derived from formula 2.02 m2 [facility] Work Phone: 01-24-2022 11:00-0400 Body temperature 96.9 [degF] [facility] Work Phone: Comment on above: Method: Thermal Scan 01-24-2022 11:00-0400 Body weight 78.02 kg [facility] Work Phone: 01-24-2022 11:00-0400 Diastolic blood pressure 70 mm[Hg] Naida Montenegro [facility] Work Phone: Comment on above: Patient Position: Sitting; Cuff Location : Left Arm; Cuff Size: Standard 01-24-2022 11:00-0400 Heart rate 66 /min [facility] Work Phone: Comment on above: Pattern: Regular 01-24-2022 11:00-0400 Respiratory rate 16 /min Naida Montenegro [facility] Work Phone: Comment on above: Pattern: Unlabored 01-24-2022 11:00-0400 Systolic blood pressure 120 mm[Hg] Naida Montneegro [facility] Work Phone: Comment on above: Patient Position: Sitting; Cuff Location : Left Arm; Cuff Size: Standard 01-10-2022 11:55-0400 Body temperature 97.3 [degF] Dr. Spike Mullen Work Phone: [facility] Work Phone: 01-10-2022 11:55-0400 Diastolic blood pressure 88 mm[Hg] Dr. Spike Mullen Work Phone: [facility] Work Phone: 01-10-2022 11:55-0400 Heart rate 62 /min Dr. Spike Mullen Work Phone: [facility] Work Phone: 01-10-2022 11:55-0400 Respiratory rate 16 /min Dr. Spike Mullen Work Phone: [facility] Work Phone: 01-10-2022 11:55-0400 SaO2% (BldA) [Mass fraction] 92 % Dr. Spike Mullen Work Phone: [facility] Work Phone: 01-10-2022 11:55-0400 Systolic blood pressure 135 mm[Hg] Dr. Spike Mullen Work Phone: [facility] Work Phone: 01-10-2022 10:18-0400 Body height 185.[address] Spike Mullen Work Phone: [facility] Work Phone: 01-10-2022 10:18-0400 Body mass index (BMI) [Ratio] 21.8 kg/m2 Dr. Spike Mullen Work Phone: [facility] Work Phone: 01-10-2022 10:18-0400 Body weight [address] Spike Mullen Work Phone: [facility] Work Phone: 10-25-2021 11:38-0500 Body height 185.42 cm Naida Montenegro [facility] Work Phone: 10-25-2021 11:38-0500 Body mass index (BMI) [Ratio] 21.9 kg/m2 Naida Montenegro [facility] Work Phone: 10-25-2021 11:38-0500 Body surface area Derived from formula 1.99 m2 Naida Montenegro [facility] Work Phone: 10-25-2021 11:38-0500 Body temperature 97.1 [degF] Naida Montenegro [facility] Work Phone: Comment on above: Method: Thermal Scan 10-25-2021 11:38-0500 Body weight 75.3 kg Naida Montenegro [facility] Work Phone: 10-25-2021 11:38-0500 Diastolic blood pressure 70 mm[Hg] Naida Montenegro [facility] Work Phone: Comment on above: Patient Position: Sitting; Cuff Location : Left Arm; Cuff Size: Standard 10-25-2021 11:38-0500 Heart rate 70 /min Naida Montenegro [facility] Work Phone: Comment on above: Pattern: Regular 10-25-2021 11:38-0500 Respiratory rate 16 /min Naida Montenegro [facility] Work Phone: Comment on above: Pattern: Unlabored 10-25-2021 11:38-0500 SaO2% (BldA) [Mass fraction] 97 % Naida Montenegro [facility] Work Phone: Comment on above: Room air 10-25-2021 11:38-0500 Systolic blood pressure 118 mm[Hg] Naida Montenegro [facility] Work Phone: Comment on above: Patient Position: Sitting; Cuff Location : Left Arm; Cuff Size: Standard 10-10-2021 12:15-0500 Diastolic blood pressure 85 mm[Hg] Dr. Spike Mullne Work Phone: [facility] Work Phone: 10-10-2021 12:15-0500 Systolic blood pressure 135 mm[Hg] Dr. Spike Mullen Work Phone: [facility] Work Phone: 10-10-2021 07:51-0500 Body weight 78.[address] Spike Mullen Work Phone: [facility] Work Phone: 10-10-2021 07:51-0500 Heart rate 74 /min Dr. Spike Mullen Work Phone: [facility] Work Phone: 10-10-2021 07:51-0500 Respiratory rate 16 /min Dr. Spike Mullen Work Phone: [facility] Work Phone: 10-10-2021 07:51-0500 SaO2% (BldA) [Mass fraction] 100 % Dr. Spike Mullen Work Phone: [facility] Work Phone: 07-11-2021 09:27-0400 Body height 185.42 [...] mass index (BMI) [Ratio] 22.3 kg/m2 Yoko Mahajan LPN [facility] Work Phone: 05-16-2021 13:10-0400 Body surface area Derived from formula 2 m2 Yoko Mahajan LPN [facility] Work Phone: 05-16-2021 13:10-0400 Body temperature 97.6 [degF] Yoko Mahajan [employer] [facility] Work Phone: 05-16-2021 13:10-0400 Body weight 76.66 kg Yoko Mahajan [employer] [facility] Work Phone: 05-16-2021 13:10-0400 Diastolic blood pressure 76 mm[Hg] Yoko Swannrb [employer] [facility] Work Phone: Comment on above: Patient Position: Sitting; Cuff Location : Left Arm; Cuff Size: Standard 05-16-2021 13:10-0400 Heart rate 78 /min Yoko Mahajan [employer] [facility] Work Phone: Comment on above: Pattern: Regular 05-16-2021 13:10-0400 Respiratory rate 16 /min Yoko Mahajan [employer] [facility] Work Phone: Comment on above: Pattern: Unlabored 05-16-2021 13:10-0400 SaO2% (BldA) [Mass fraction] 99 % Yoko Mahajan AUTOMOTIVE UPHOLSTER[employer] [facility] Work Phone: Comment on above: Room air 05-16-2021 13:10-0400 Systolic blood pressure 138 mm[Hg] Yoko Mahajan AUTOMOTIVE UPHOLSTERER [facility] Work Phone: Comment on above: Patient Position: Sitting; Cuff Location : Left Arm; Cuff Size: Standard 10-06-2020 11:19-0500 Body mass index (BMI) [Ratio] 21.7 kg/m2 Dr. Spike Mullen Work Phone: [facility] Work Phone: 04-15-2017 15:15-0400 BMI (Body Mass Index) 20.67 kg/m2 Mal Joseph MD [facility] Work Phone: 04-15-2017 15:15-0400 Body Temperature 97.4 [degF] Mal Joseph MD [facility] Work Phone: 04-15-2017 15:15-0400 Body Temperature 97.39 [degF] Mal Joseph MD [facility] Work Phone: 04-15-2017 15:15-0400 BP Diastolic 92 mm[Hg] Mal Joseph MD [facility] Work Phone: 04-15-2017 15:15-0400 BP Systolic 155 mm[Hg] Mal Joseph MD [facility] Work Phone: 04-15-2017 15:15-0400 Height 191.77 cm Mal Joseph MD [facility] Surgical [facility] Work Phone: 04-15-2017 15:15-0400 Pulse (Heart Rate) 62 /min Mal Joseph MD [facility] Work Phone: 04-15-2017 15:15-0400 Respiratory Rate 20 /min Mal Joseph MD [facility] Work Phone: 04-15-2017 15:15-0400 Weight 76.02 kg Mla Joseph MD [facility] Surgical [facility] Work Phone: 09-25-2016 09:58-0500 BSA (Body Surface Area) 2.08 m2 Mal Joseph MD [facility] Surgical [facility] Work Phone: 08-28-2011 08:54-0500 Height 191.77 cm Mal Joseph MD [facility] Surgical [facility] Work Phone: Encounters Encounter Date Encounter Type Care Provider Facility Start: 03-23-2025 End: 03-23-2025 Patient encounter procedure David Parra DO -[facility] Work Phone: Start: 03-23-2025 End: 03-23-[address] Francheska Alonzo DO Work Phone: -[facility] Start: 03-09-2025 ambulatory Francheska Alonzo Facility:[facility] Start: 03-09-2025 Non-patient / Non-visit Dr. Petros Valdez MD -[facility] Start: 03-08-2025 ambulatory Petros Valdez Facility:[facility] Start: 03-08-2025 Non-patient / Non-visit Dr. Petros Valdez MD -[facility] Start: 03-08-2025 End: 03-08-[address] Francheska Alonzo DO Work Phone: -[facility] Start: 03-08-2025 End: 03-08-[address] Petros Valdez MD -[facility] Work Phone: Start: 03-08-2025 End: 03-08-2025 ambulatory Francheska Fast Facility:[facility] Start: 03-02-2025 ambulatory Francheska Fast Facility:[facility] Start: 03-02-2025 Non-patient / Non-visit David Parra DO -[facility] Start: 03-02-2025 End: 03-02-2025 Admission to same day surgery center David Parra DO -Endoscopy Work Phone: Start: 03-02-2025 End: 03-02-[address] Francheska Alonzo DO Work Phone: [facility] Work Phone: Start: 01-26-2025 End: 01-26-[address] Petros Valdez MD -[facility] Work Phone: Start: 01-26-2025 End: 01-26-[address] Francheska Alonzo DO Work Phone: [facility] Work Phone: Start: 12-23-2024 End: 12-23-[address] Francheska Alonzo DO Work Phone: [facility] Work Phone: Start: 12-23-2024 End: 12-23-[address] Francheska Alonzo DO -Laboratory Work Phone: Start: 12-23-2024 End: 12-23-2024 ambulatory Francheska Fast Facility:[facility] Start: 12-17-2024 End: 12-17-2024 Patient encounter procedure David Parra [facility] Work Phone: Start: 12-17-2024 End: 12-17-2024 ambulatory Francheska Fast Facility:[facility] Start: 10-01-2024 End: 10-01-2024 Patient encounter procedure David Parra DO [facility] Work Phone: Start: 10-01-2024 End: 10-01-2024 ambulatory Francheska Fast Facility:[facility] Start: 07-02-2024 End: 07-02-2024 ambulatory Francheska Fast Facility:[facility] Start: 06-22-2024 End: 06-22-2024 ambulatory Francheska Fast Facility:[facility] Start: 05-10-2024 End: 05-10-2024 Emergency department patient visit Mal Aleman Facility:[facility] Start: 04-02-2024 End: 04-02-2024 ambulatory Francheska Fast Facility:[facility] Start: 12-25-2023 End: 12-25-[address] Francheska Alonzo Work Phone: [facility] Work Phone: Start: 12-25-2023 End: 12-25-[address] Francheska Alonzo Work Phone: [facility]-Laboratory Work Phone: Start: 12-03-2023 End: 12-03-[address] Francheska Alonzo Work Phone: [facility] Work Phone: Start: 08-06-2023 End: 08-06-[address] Francheska Alonzo Work Phone: [facility] Work Phone: Start: 08-06-2023 End: 08-06-[address] Francheska Alonzo Work Phone: [facility]-Laboratory, Specimen Work Phone: Start: 08-05-2023 End: 08-05-[address] Francheska Alonzo Work Phone: [facility] Work Phone: Start: 07-26-2023 End: 07-26-[address] Francheska Alonzo Work Phone: [facility]-Outpatient Breast Imaging Work Phone: Start: 06-14-2023 Non-patient / Non-visit Dr. Francheska Alonzo Work Phone: [facility] Start: 06-14-2023 End: 06-14-[address] Francheska Alonzo Work Phone: [facility]-Cardiovascular Services Work Phone: Start: 06-14-2023 End: 06-14-2023 Phone Encounter Francheska Alonzo DO Work Phone: [facility] Start: 06-07-2023 End: 06-07-2023 Annotation/Addendum Francheska Alonzo DO Work Phone: [facility] Start: 06-03-2023 End: 06-03-2023 Office outpatient visit 25 minutes Francheska Fast DO Work Phone: [facility] Start: 05-29-2023 End: 05-29-[address] Francheska Alonzo Work Phone: [facility] Work Phone: Start: 05-29-2023 End: 05-29-[address] Francheska Alonzo Work Phone: [facility]-Laboratory Work Phone: Start: 02-25-2023 End: 02-25-[address] Francheska Alonzo Work Phone: [facility] Start: 02-25-2023 End: 02-25-2023 Office outpatient visit 25 minutes Francheska Alonzo DO Work Phone: [facility] Start: 02-22-2023 End: 02-22-[address] Pritchard Fast Work Phone: [facility] Work Phone: Start: 02-22-2023 End: 02-22-[address] Francheska Alonzo Work Phone: [facility]-Laboratory Start: 02-13-2023 Non-patient / Non-visit Dr. Pritchard Fast Work Phone: [facility] Start: 02-13-2023 End: 02-13-2023 Admission to same day surgery center Dr. Pritchard Fast Work Phone: [facility]-Endoscopy Start: 02-13-2023 End: 02-13-[address] Francheska Alonzo Work Phone: [facility] Work Phone: Start: 01-14-2023 End: 01-14-[address] Francheska Alonzo Work Phone: [facility] Start: 12-03-2022 Non-patient / Non-visit Dr. Francheska Alonzo Work Phone: [facility] Start: 12-03-2022 End: 12-03-2022 Admission to same day surgery center Dr. Francheska Alonzo Work Phone: [facility]-Hel[facility] Coverer/Special Procedures Start: 12-03-2022 End: 12-03-[address] Francheska Alonzo Work Phone: [facility] Work Phone: Start: 11-30-2022 Non-patient / Non-visit Dr. Pritchard Fast Work Phone: [facility] Start: 11-29-2022 Non-patient / Non-visit Dr. Pritchard Fast Work Phone: [facility] Start: 11-29-2022 End: 11-29-[address] Francheska Alonzo Work Phone: [facility] Work Phone: Start: 11-29-2022 End: 11-29-[address] Francheska Alonzo Work Phone: [facility] Start: 11-12-2022 ambulatory Francheska Raz Fast DO [facility] Start: 11-12-2022 End: 11-12-2022 Office outpatient visit 25 minutes Francheska Fast DO Work Phone: [facility] Start: 10-29-2022 Non-patient / Non-visit Dr. Francheska Alonzo Work Phone: [facility] Start: 10-29-[address] Francheska Alonzo Work Phone: [facility]-Cardiovascular Services Start: 10-29-2022 End: 10-29-[address] Francheska Alonzo Work Phone: [facility]-Laboratory Start: 10-16-2022 End: 10-16-[address] Francheska Alonzo Work Phone: [facility] Start: 09-14-2022 End: 09-14-[address] Francheska Alonzo Work Phone: [facility] Start: 08-10-2022 End: 08-10-2022 Phone Encounter Francheska [...] 05-09-[address] Francheska Alonzo Work Phone: [facility] Work Phone: Start: 05-09-2022 End: 05-09-[address] Francheska Alonzo Work Phone: [facility]-Laboratory Start: 05-08-2022 End: 05-08-2022 Phone Encounter Francheska [...] encounter procedure Dr. Francheska Alonzo Work Phone: [facility]-Outpatient Breast Imaging Start: 03-23-2022 End: 03-25-2022 Office outpatient visit 15 minutes Francheska Alonzo DO Work Phone: [facility] Start: 01-24-2022 End: 01-24-[address] Francheska Alonzo Work Phone: [facility] Start: 01-24-2022 End: 01-28-2022 Office outpatient visit 25 minutes Francheska Fast DO Work Phone: [facility] Start: 01-24-2022 Review Francheska Alonzo DO Work Phone: [facility] Start: 01-19-2022 End: 01-19-[address] Francheska Alonzo Work Phone: [facility]-Laboratory Start: 01-15-2022 End: 01-15-2022 Phone Encounter Francheska Fast DO Work Phone: [facility] Start: 01-10-2022 Non-patient / Non-visit Dr. Sipke Mullen Work Phone: [facility] Start: 01-10-2022 End: 01-10-2022 Admission to same day surgery center Dr. Spike Mullen Work Phone: [facility]-Endoscopy Start: 11-07-2021 End: 11-07-[address] Spike Mullen Work Phone: [facility] Start: 10-25-2021 End: 10-26-2021 Office outpatient visit 25 minutes Francheska Fast DO Work Phone: [facility] Start: 10-25-2021 Review Francheska Fast DO Work Phone: [facility] Start: 10-10-2021 End: 10-10-[address] Spike Mullen Work Phone: [facility] Start: 10-05-2021 End: 10-05-[address] Spike Mullen Work Phone: [facility]-Laboratory Start: 07-12-2021 End: 07-12-2021 Phone Encounter Francheska [...] Start: 04-09-2017 End: 04-10-2017 Ambulatory ADRIANNA MCDUFFIE Facility:[facility] Procedures Date Procedure Procedure Detail Performing Clinician Start: 03-08-2025 Radionuclide imaging of perfusion of myocardium under exercise stress Dr. Francheska Alonzo DO Work Phone: Start: 03-02-[address] Francheska soto DO Work Phone: Start: 12-23-2024 Vitamin D, 25-hydroxy measurement Dr. Franchesak Alonzo DO Work Phone: Comment on above: [...] Extrem Procedure Note: See Note ; NOTES: [facility] [address] [place] [address] Venous Duplex US - [place] Extrem 06/14/23 0905 MR#: [id number] Acct: [id number] Name: JUNG ABURTO Rep #: [id number] : 1945 78 From: Michele Hodgson MD Attending Dr: Dr. Francheska Alonzo DO Status: REG CL I Ordering Dr: Francheska Alonzo DO Date: 06/14/23 Location: [facility] Sex: M C Admitted: Reason For Study: [...] DO Date Dictated: 06/14/23904 Date Transcribed: 06/14/231224 Curator: Vanessa Alonzo DO Work Phone: Start: 02-25-2023 End: 02-25-2023 Gastroenterology Visit Report Procedure Note: See Note ; NOTES: [facility] G[facility] [address] [place] [address] OFFICE VISIT Date of Service: 02/25/23 MR#: [id number] Acct: [id number] Name: JUNG ABURTO Rep #: [id number] : 1945 Provider: RAJESH Garrido Age/Sex: 77/M Location: [facility] Status: Signed Intake Vital Signs 01/14/23 13:34 [...] acid 325 mg-1,916 mg-1,000 mg efferves tab (Maryjane-Morrow Original) 1 tab PO PRN PRN BLOATING [...] and oriented x3 Quality Reporting Tobacco Screening ([facility] 138) Smoking Status: Never smoker Assessment and Plan Assessment and Plan (1) Yates esophagus: Status: Chronic Plan: Discussed EGD findings, positive for Yates's still, negative for dysplasia, continue PPI and B1hievtpj 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 Francheska Alonzo DO Status:REG [facility] Patient Name: Jung Aburto Procedure Date: 02/13/2023 7:50 AM Date of : 1945 Age: 77 Procedure: Upper GI endoscopy Indications: Follow-up of Yates's esophagus Providers: David Parra [...] pathology results. Procedure Code(s): --- Professional --- 05094, Esophagogastroduodenoscopy, flexible, transoral; with biopsy, single or multiple CPT copyright 2017 [employer]. All rights reserved. The codes documented in this report are preliminary and upon sewer line photo inspector review may be revised to meet current compliance requirements. David Parra DO 02/13/2023 8:10:49 AM This report has been signed electronically. Number of Addenda: 0 Note Initiated On: 02/13/2023 7:50 AM 02/13/23 0810 Date David Parra DO Cosigner Signature: Date (if indicated) CC: Dr. Francheska Alonzo DO; David Parra DO Date Dictated: 02/13/23749 Date Transcribed: Curator: PRAVIN Signed Francheska Alonzo DO Work Phone: Start: 02-13-2023 End: 02-13-2023 History and Physical Exam Procedure Note: See Note; NOTES: [facility] Medical Records Department [address] [place] [address] History Physical Exam 02/13/23752 MR#: [id number] Acct: [id number] Name: JUNG ABURTO Rep #: [id number] : 1945 77 From: David Parra DO PCP: Dr. Francheska Alonzo DO Status:[facility] Location: [place] [address] History and Physical Date of Admission: 02/13/23 [...] red wine). Jung established with this clinic 11.07.21 for [...] and oriented x3 Quality Reporting Tobacco Screening ([facility] 138) Smoking Status: Never smoker Assessment and [...] Report Procedure Note: See Note ; NOTES: [facility] Gastroenterology [address] [place] [address] OFFICE VISIT Date of Service: 01/14/23 MR#: [id number] Acct: [id number] Name: JUNG ABURTO Rep #: [id number] : 1945 Provider: RAJESH Garrido Age/Sex: 77/M Location: [facility] Status: Signed Intake Vital Signs 01/10/22 [...] acid 325 mg-1,916 mg-1,000 mg efferves tab (Maryjane-Morrow Original) 1 tab PO DAILY 11/30/22 [History Confirmed 01/14/23] aspirin 81 mg capsule 81 mg PO DAILY 12/03/22 [History Confirmed 01/14/23] REPLACED BY [facility] Medical History (Updated 01/14/23 @ 13:48 by Alicia Garrido NP, LAB REP-C) Alcohol use Arthritis Back pain Yates esophagus [...] red wine). 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 Francheska Alonzo, DO Francheska Alonzo DO Work Phone: Start: 12-03-2022 End: 12-03-2022 Operative Report Procedure Note: See Note; NOTES: [facility] Medical Records Department [address] [place] [address] Operative Report 12/03/22 1227 MR#: [id number] Acct: [id number] Name: JUNG ABURTO Rep #: [id number] : 1945 77 From: Sd Kirk MD PCP: Dr. Francheska Alonzo DO Status:[facility] Location: [facility] Report of Operation Date of Procedure: [...] Cath Diagnostic Procedure Note: See Note; NOTES: [facility] Imaging Services [address] [place] [address] Cardiac Cath Diagnostic MR#: [id number] Acct: [id number] Name: JUNG ABUROT Rep #: [id number] : 1945 77 From: Petros Valdez MD PCP: Dr. Francheska Alonzo DO Status:REG [facility] Patient Name: JUNG ABURTO Study Date: 12/03/2022 Performing: Petros Valdez MD Ht: 73 inches 185.42 cm : 1945 Wt: 166.01 lbs 75.3 kg Age: 77 Gender: male BSA: 1.99 PROCEDURE(S) PERFORMED DC01-(75565)LHC/COR/LV IC10-(42381)FFR, CORONARY OR GRAFT, INITIAL VESSEL IC11-(13995)FFR, CORONARY OR GRAFT, EACH ADD'L VESSEL CLINICAL [...] multiple views using a 5 Fr. 4.0 [place] catheter. Left Coronary Artery selective angiography was performed in multiple views using a 5 Fr. 4.0 [place] catheter. Left Ventriculography was performed in [facility] [...] Dictated: 12/03/22 1117 Date Transcribed: 12/03/22 1215 Curator: CO Signed Francheska Alonzo DO Work Phone: Start: 11-30-2022 End: 11-30-2022 History and Physical Exam Procedure Note: See Note; NOTES: [facility] Medical Records Department [address] [place] [address] History Physical Exam 11/30/22 1600 MR#: [id number] Acct: [id number] Name: JUNG ABURTO Rep #: [id number] : 1945 77 From: Tea ARIZMENDI PA PCP: Dr. Francheska Alonzo, DO Status:[facility] Location: [facility] History and Physical JUNG ABURTO, is [...] applicable): CC: KYLEIGH Hart; Dr. Francheska Alonzo, Signed Francheska Alonzo DO Work Phone: Start: 11-29-2022 End: 11-29-[address] Procedure Note: See Note; NOTES: [facility] Imaging Services [address] [place] [address] 11/29/22 1532 MR#: [id number] Acct: [id number] Name: JUNG ABURTO Rep #: [id number] : 1945 77 From: Petros Valdez MD PCP: Dr. Francheska Alonzo, DO Status:REG CLI Y Location: CT Calcium [...] Only Procedure Note: See Note ; NOTES: [facility] Imaging Services [address] [place] [address] Cardiac Only MR#: [id number] Acct: [id number] Name: JUNG ABURTO Rep #: [id number] : 1945 77 From: Hany Yarbrough MD PCP: Dr. Francheska Alonzo DO Status: REG CLI Study: Limited Chest CT Cardiac Only Date of Exam: Exam# [id number] Ordering Dr: Petros Valdez MD STUDY: CARDIAC [...] Petros Valdez MD; Dr. Francheska Alonzo DO Curator: Signed Francheska Alonzo DO Work Phone: Start: 10-16-2022 End: 10-16-2022 Cardiology Visit Report Procedure Note: See Note; NOTES: [facility] [address] [place] [address] OFFICE VISIT Date of Service: 10/16/22 MR#: [id number] Acct: [id number] Name: JUNG ABURTO Rep #: [id number] : 1945 Provider: Dr. 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 Francheska Alonzo DO Status: REG CLI Study: Kidney and Bladder Date of Exam: 09/14/22 Exam# [id number] Ordering Dr: Francheska Alonzo DO STUDY: RENAL [...] EST , CC: Dr. Francheska Alonzo DO Curator: Signed Francheska Alonzo DO Work Phone: Start: 09-14-[address] Francheska Alonzo Work Phone: Start: 04-17-2022 US BREAST BIOPSY RIGHT (POC) SURG USE ONLY Mal Joseph MD Work Phone: Start: 04-05-2022 End: 04-05-2022 Breast Limited Unilateral Comments: See Note; NOTES: [facility] Imaging Services [address] [place] [address] Breast Limited Unilateral MR#: [id number] Acct: [id number] Name: JUNG ABURTO Rep #: [id number] : 1945 M 76 From: Mo bertrand MD PCP: Dr. Francheska Alonzo DO Status: REG CLI Study: Breast Limited Unilateral Date of Exam: Exam# [id number] Ordering Dr: Francheska Alonzo DO STUDY: ULTRASOUND [...] Signed: Mo Angulo MD at 14:46 EDT Reading Location ID and State: [facility] [place] , Service support , CC: Dr. Francheska Alonzo DO Curator: Signed Francheska Alonzo DO Work Phone: Start: 04-05-[address] Francheska Alonzo Work Phone: Start: 04-05-[address] Francheska Alonzo Work Phone: Start: 04-05-2022 End: 04-05-2022 DIAG MAMM W/CAD, BILAT Comments: See Note; NOTES: [facility] Imaging Services [address] [place] [address] DIAG MAMM W/CAD, BILAT MR#: [id number] Acct: [id number] Name: JUNG ABURTO Rep #: [id number] : 1945 M 76 From: Mo bertrand MD PCP: Dr. Francheska Alonzo DO Status: REG [facility] Study: DIAG MAMM W/CAD, BILAT Date of Exam: 04/05/22 Exam# [id number] Ordering Dr: Francheska Alonzo DO MAMMOGRAPHY - [...] EDT , CC: Dr. Francheska Alonzo DO Curator: Signed Francheska Alonzo DO Work Phone: Start: 01-24-2022 End: 2022 Gastroenterology Visit Report Procedure Note: See Note ; NOTES: [facility] Gastroenterology [address] [place] [address] OFFICE VISIT Date of Service: 01/24/22 MR#: [id number] Acct: [id number] Name: JUNG ABURTO Rep #: [id number] : 1945 Provider: David Parra DO Age/Sex: 76/M Location: [facility] Status: Signed Intake Vital Signs 10/10/21 08:51 [...] Appearance: average body habitus and well nourished [facility] Head: normal to inspection Ears: hearing [...] Affect: normal affect Quality Reporting Tobacco Screening ([facility] 138) Smoking Status: Never smoker Assessment and [...] 06-08-2022 Colonoscopy Report Comments: See Note; NOTES: [facility] Medical Records Department [address] [place] [address] Colonoscopy Report MR#: [id number] Acct: [id number] Name: JUNG ABURTO Rep #: [id number] : 1945 76 From: David Parra DO PCP: Dr. Francheska Alonzo DO Status:[facility] Patient Name: Jung Aburto Procedure Date: 01/10/2022 [...] 1 week. Procedure Code(s): --- Professional --- 35741, Colonoscopy, flexible; with removal of tumor(s), polyp(s), or other lesion(s) by snare technique CPT copyright 2017 [employer]. All rights reserved. The codes documented in this report are preliminary and upon sewer line photo inspector review may be revised to meet current compliance requirements. David Parra DO 01/10/2022 11:46:14 AM This report has been signed electronically. Number of Addenda: 0 Note Initiated On: 01/10/2022 11:06 AM 01/10/22 1146 Date David Parra DO Cosignabi Signature: Date (if indicated) CC: Dr. Francheska Alonzo DO; David Parra DO Date Dictated: 01/10/22 1106 Date Transcribed: Curator: PRAVIN Signed Francheska Alonzo DO Work Phone: Start: 01-10-2022 End: 06-08-2022 EGD Report Comments: See Note; NOTES: [facility] Medical Records Department [address] [place] [address] EGD Report MR#: [id number] Acct: [id number] Name: JUNG ABURTO Rep #: [id number] : 1945 76 From: David Parra DO PCP: Dr. Francheska Alonzo DO Status:[facility] Patient Name: Jung Aburto Procedure Date: 01/10/2022 [...] pathology results. Procedure Code(s): --- Professional --- 33017, Esophagogastroduodenoscopy, flexible, transoral; with biopsy, single or multiple G0500, Moderate sedation services provided by the same physician or other qualified health acute care nursing assistant performing a gastrointestinal endoscopic service that sedation supports, requiring the presence of an independent trained observer to assist in the monitoring of the patient's level of consciousness and physiological status; initial 15 minutes of intra-service time; patient age 5 years or older (additional time may be reported with 52130, as appropriate) CPT copyright 2017 [employer]. All rights reserved. The codes documented in this report are preliminary and upon sewer line photo inspector review may be revised to meet current compliance requirements. David Parra DO 01/10/2022 11:40:16 AM This report has been signed electronically. Number of Addenda: 0 Note Initiated On: 01/10/2022 10:40 AM 01/10/22 1140 Date David Parra DO Cosigner Signature: Date (if indicated) CC: Dr. Francheska Alonzo DO; David Parra DO Date Dictated: 01/10/22 1040 Date Transcribed: Curator: PRAVIN Signed Francheska Alonzo DO Work Phone: Start: 01-10-[address] Spike Mullen Work Phone: Start: 01-10-2022 End: 01-10-2022 History and Physical Exam Comments: See Note; NOTES: [facility] Medical Records Department [address] [place] [address] History Physical Exam 01/10/22 1041 MR#: [id number] Acct: [id number] Name: JUNG ABURTO Rep #: [id number] : 1945 76 From: David Parra DO PCP: Dr. Francheska Alonzo DO Status:[facility] Location: [place] [address] History and Physical Date of Admission: 01/10/22 [...] and well groomed Quality Reporting Tobacco Screening ([facility] 138) Smoking Status: Never smoker Assessment and [...] Gastroenterology Visit Report Comments: See Note; NOTES: [facility] Gastroenterology [address] [facility] [place] [address] OFFICE VISIT Date of Service: 11/07/21 MR#: [id number] Acct: [id number] Name: JUNG ABURTO Rep #: [id number] : 1945 Provider: RAJESH Garrido Age/Sex: 76/M Location: [facility] Status: Signed Intake Intake Visit Reasons: COLON POLYPS Allergies No Known Allergies Allergy (Verified 11/07/21 11:25) Medications coenzyme Q10 30 mg PO DAILY 05/21/16 [History Confirmed 11/07/21] multivitamin 1 ea PO DAILY 05/21/16 [History Confirmed 11/07/21] cyanocobalamin (vitamin B-12) 2,000 mcg PO DAILY 04/22/17 [History Confirmed 11/07/21] omega 4-jke-ove-fish oil 1 tab PO DAILY 04/22/17 [History [...] mg PO DAILY 10/10/21 [History Confirmed 11/07/21] REPLACED BY [facility] Medical History (Updated 11/07/21 @ 11:38 by Alicia Garrido LAB REP, LAB REP-C) Chronic renal insufficiency Essential (primary) hypertension Hyperlipidemia [...] and well groomed Quality Reporting Tobacco Screening ([facility]) Smoking Status: Never smoker Assessment and [...] 11/07/21 1215 <Electronically signed by Alicia Garrido NP, NP-C> Date Alicia Garrido NP LAB REP-C Cosigner Signature: Date (if applicable) CC: Dr. Francheska Alonzo, DO Francheska Alonzo DO Work Phone: Start: 10-10-2021 End: 10-10-2021 Cardiology Visit Report Comments: See Note; NOTES: [facility] [address] [place] [address] OFFICE VISIT Date of Service: 10/10/21 MR#: [id number] Acct: [id number] Name: JUNG ABURTO Rep #: [id number] : 1945 Provider: Dr. Petros Valdez MD Age/Sex: 76/M Location: [facility] Status: Signed HPI [facility] History of Present Illness Details: JUNG [...] Known Allergies Allergy (Verified 10/10/21 08:52) Medications uubhhgpogx-mspveea-mpkdmiwz 1 tab PO DAILY PRN PRN 05/21/16 [History Confirmed 10/10/21] coenzyme Q10 30 mg PO DAILY 05/21/16 [History Confirmed 10/10/21] diazepam 0.5 - 1 tab PO DAILY PRN PRN 05/21/16 [History Confirmed 10/10/21] multivitamin 1 ea PO DAILY 05/21/16 [History Confirmed 10/10/21] cyanocobalamin (vitamin B-12) 2,000 mcg PO DAILY 04/22/17 [History Confirmed 10/10/21] omega 5-thy-kme-fish oil 1 tab PO DAILY 04/22/17 [History [...] updated, as necessary. 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) Coding Level of Care Code Off vis,est,level [...] Petros Valdez MD Start: 08-18-2013 End: 08-18-2013 SCHEDULE PLANNING MANAGER Petros Valdez MD Start: 08-18-2013 End: 08-18-2013 [...] [AGGREGATE] Petros Valdez MD Appendectomy Yoko Slarb AUTOMOTIVE UPHOLSTERER Appendectomy Naida Manchak PATIENT CARE NURSING ASSISTANT Appendectomy Naida Manchak PATIENT CARE NURSING ASSISTANT Appendectomy Kayela Aiken PATIENT CARE NURSING ASSISTANT Appendectomy Francheska A Fast DO Work Phone: Appendectomy Naida Manchak PATIENT CARE NURSING ASSISTANT Appendectomy Naida Manchak PATIENT CARE NURSING ASSISTANT Appendectomy Naida Manchak PATIENT CARE NURSING ASSISTANT Appendectomy Naida Manchak PATIENT CARE NURSING ASSISTANT Double hernia Yoko Slarb AUTOMOTIVE UPHOLSTERER Double hernia Naida Manchak PATIENT CARE NURSING ASSISTANT Double hernia Naida Manchak PATIENT CARE NURSING ASSISTANT Double hernia Kayela Aiken PATIENT CARE NURSING ASSISTANT Double hernia Francheska A Fast DO Work Phone: Double hernia Naida Manchak PATIENT CARE NURSING ASSISTANT Double hernia Naida Manchak PATIENT CARE NURSING ASSISTANT Double hernia Naida Manchak PATIENT CARE NURSING ASSISTANT Double hernia Naida Manchak PATIENT CARE NURSING ASSISTANT Hydrocele Yoko Slarb AUTOMOTIVE UPHOLSTERER Hydrocele Naida Manchak PATIENT CARE NURSING ASSISTANT Hydrocele Naida Manchak PATIENT CARE NURSING ASSISTANT Hydrocele Kayela Aiken PATIENT CARE NURSING ASSISTANT Hydrocele Francheska A Fast DO Work Phone: Hydrocele Naida Manchak PATIENT CARE NURSING ASSISTANT Hydrocele Naida Manchak PATIENT CARE NURSING ASSISTANT Hydrocele Naida Manchak PATIENT CARE NURSING ASSISTANT Hydrocele Naida Manchak PATIENT CARE NURSING ASSISTANT Partial thyroidectomy Yoko Slarb AUTOMOTIVE UPHOLSTERER Partial thyroidectomy [place] a Manchak PATIENT CARE NURSING ASSISTANT Partial thyroidectomy [place] PATIENT CARE NURSING ASSISTANT Partial thyroidectomy Kayela Madiha PATIENT CARE NURSING ASSISTANT Partial thyroidectomy Francheska A Fast DO Work Phone: Partial thyroidectomy [place] PATIENT CARE NURSING ASSISTANT Partial thyroidectomy [place] PATIENT CARE NURSING ASSISTANT Partial thyroidectomy [place] PATIENT CARE NURSING ASSISTANT Partial thyroidectomy [place] PATIENT CARE NURSING ASSISTANT right hand CMC Yoko Slarb AUTOMOTIVE UPHOLSTERER right hand CMC Naida Manchak PATIENT CARE NURSING ASSISTANT right hand CMC Naida Manchak PATIENT CARE NURSING ASSISTANT right hand CMC Kayela Radfor d PATIENT CARE NURSING ASSISTANT right hand CMC Francheska A Fast DO Work Phone: right hand CMC Naida Manchak PATIENT CARE NURSING ASSISTANT right hand CMC Naida Manchak PATIENT CARE NURSING ASSISTANT right hand CMC Naida Manchak PATIENT CARE NURSING ASSISTANT right hand CMC Naida Manchak PATIENT CARE NURSING ASSISTANT Tonsillectomy Yoko Slarb AUTOMOTIVE UPHOLSTERER Tonsillectomy Naida Manchak PATIENT CARE NURSING ASSISTANT Tonsillectomy Naida Manchak PATIENT CARE NURSING ASSISTANT Tonsillectomy Christineyela Aiken PATIENT CARE NURSING ASSISTANT Tonsillectomy Francheska A Fast DO Work Phone: Tonsillectomy Naida Manchak PATIENT CARE NURSING ASSISTANT Tonsillectomy Naida Manchak PATIENT CARE NURSING ASSISTANT Tonsillectomy Naida Manchak PATIENT CARE NURSING ASSISTANT Tonsillectomy Naida Manchak PATIENT CARE NURSING ASSISTANT TURP Yoko Slarb AUTOMOTIVE UPHOLSTERER TURP Naida Manchak PATIENT CARE NURSING ASSISTANT TURP Naida Manchak PATIENT CARE NURSING ASSISTANT TURP Kayela Aiken PATIENT CARE NURSING ASSISTANT TURP Francheska A Fast DO Work Phone: TURP Naida Manchak PATIENT CARE NURSING ASSISTANT TURP Naida Manchak PATIENT CARE NURSING ASSISTANT TURP Naida Manchak PATIENT CARE NURSING ASSISTANT TURP Naida Manchak PATIENT CARE NURSING ASSISTANT Plan of Treatment Date Care Activity Detail Author Start: 03-02-2025 Egd transoral biopsy single/multiple EGD BIOPSY SINGLE/MULTIPLE [facility] Start: 03-02-2025 Patient discharge [facility] Start: 06-03-2023 Procedure Education Eprescribed prescriptions (G8553) [facility]; [facility] Work Phone: Start: 06-03-2023 Blood count complete auto&auto difrntl wbc CBC W/AUTO DIFF WBC (57950) [facility]; [facility] Work Phone: Start: 06-03-2023 Comprehensive metabolic panel METABOLIC PANEL, COMPREHENSIVE (10229) [facility]; [facility] Work Phone: Start: 02-25-2023 Procedure Education Eprescribed prescriptions (G8553) [facility]; [facility] Work Phone: Start: 02-25-2023 Blood count complete auto&auto difrntl wbc CBC W/AUTO DIFF WBC (47731) [facility]; [facility] Work Phone: Start: 02-25-2023 Comprehensive metabolic panel METABOLIC PANEL, COMPREHENSIVE (65216) [facility]; [facility] Work Phone: Start: 02-25-2023 Lipid panel LIPID PANEL (38728) [facility]; [facility] Work Phone: Start: 06-19-2023 Sedimentation rate rbc non-automated SED RATE ERYTHROCYTE (53868) [facility]; [facility] Work Phone: Start: 02-25-2023 C-reactive protein C-REACTIVE PROTEIN (20398) [facility]; [facility] Work Phone: Start: 02-25-2023 Antinuclear antibodies mario MARIO (ANTINUCLEAR ANTIBODY) (04671) [facility]; [facility] Work Phone: Start: 02-25-2023 Rheumatoid factor quantitative RHEUMATOID FACTOR-QUANT (93089) [facility]; [facility] Work Phone: Start: 02-13-2023 Egd transoral biopsy single/multiple EGD BIOPSY SINGLE/MULTIPLE [facility] Start: 02-13-2023 Patient discharge [facility] Start: 11-29-2022 Oxygen therapy [facility] Start: 11-29-2022 [facility] Start: 11-12-2022 Procedure Education Eprescribed prescriptions (G8553) [facility]; [facility] Work Phone: Start: 11-12-2022 Lipid panel LIPID PANEL (72869) [facility]; [facility] Work Phone: Start: 11-12-2022 Blood count complete auto&auto difrntl wbc CBC W/AUTO DIFF WBC (36959) [facility]; [facility] Work Phone: Start: 11-12-2022 Comprehensive metabolic panel METABOLIC PANEL, COMPREHENSIVE (30679) [facility]; [facility] Work Phone: Start: 11-12-2022 25 hydroxy includes fractions if performed Vitamin D Hydroxy (84489) [facility]; [facility] Work Phone: Start: 11-12-2022 Assay of prostate specific antigen total PSA (Medicare - G0103) (16650) [facility]; [facility] Work Phone: Start: 07-30-2022 25 hydroxy includes fractions if performed Vitamin D Hydroxy (82999) [facility]; [facility] Work Phone: Start: 11-21-2022 Blood count complete auto&auto difrntl wbc CBC W/AUTO DIFF WBC (30771) [facility]; [facility] Work Phone: Start: 07-30-2022 Comprehensive metabolic panel METABOLIC PANEL, COMPREHENSIVE (89544) [facility]; [facility] Work Phone: Start: 07-30-2022 Lipid panel LIPID PANEL (53569) [facility]; [facility] Work Phone: Start: 07-30-2022 Procedure Education Eprescribed prescriptions (G8553) [facility]; [facility] Work Phone: Start: 05-10-2022 Influenza vaccination INFLUENZA (#1) [facility] Start: 05-08-2022 Dehydroepiandrosterone DHEA (DEHYDROEPIANDROSTER ONE) (18219) [facility]; [facility] Work Phone: Start: 05-08-2022 Assay of estradiol ESTRADIOL (15979) [facility]; [facility] Work Phone: Start: 05-08-2022 Gonadotropin chorionic qualitative HCG (HUMAN CHORIONIC GONADOTROPIN) (37974) [facility]; [facility] Work Phone: Start: 05-08-2022 Assay of prolactin PROLACTIN (77885) [facility]; [facility] Work Phone: Start: 05-08-2022 Gonadotropin follicle stimulating hormone FSH AND LH (58460) [facility]; [facility] Work Phone: Start: 05-08-2022 Assay of testosterone free TESTOSTERONE FREE (06059) [facility]; [facility] Work Phone: Start: 05-08-2022 Assay of testosterone total TESTOSTERONE TOTAL (35404) [facility]; [facility] Work Phone: Start: 03-23-2022 Procedure Education Eprescribed prescriptions (G8553) [facility]; [facility] Work Phone: Start: 01-24-2022 Procedure Education Eprescribed prescriptions (G8553) [facility]; [facility] Work Phone: Start: 01-24-2022 Urnls dip stick/tablet reagent auto microscopy URINALYSIS, W/ MICRO (23008) [facility]; [facility] Work Phone: Start: 01-24-2022 Blood count complete auto&auto difrntl wbc CBC W/AUTO DIFF WBC (37241) [facility]; [facility] Work Phone: Start: 01-24-2022 Comprehensive metabolic panel METABOLIC PANEL, COMPREHENSIVE (72134) [facility]; [facility] Work Phone: Start: 01-15-2022 Assay of prostate specific antigen total PSA (PROSTATE SPECIFIC ANTIGEN) (25556) [facility]; [facility] Work Phone: Comment on above: please draw with 2021 labs Start: 01-10-2022 Colsc flx w/rmvl of tumor polyp lesion snare tq COLONOSCOPY W/LESION REMOVAL [facility] Work Phone: Start: 01-10-2022 Egd transoral biopsy single/multiple EGD BIOPSY SINGLE/MULTIPLE [facility] Work Phone: Start: 10-25-2021 Procedure Education Eprescribed prescriptions (G8553) [facility]; [facility] Work Phone: Start: 10-25-2021 Lipid panel LIPID PANEL (68756) [facility]; [facility] Work Phone: Start: 10-25-2021 Comprehensive metabolic panel METABOLIC PANEL, COMPREHENSIVE (66344) [facility]; [facility] Work Phone: Start: 09-09-2021 ADVANCE DIRECTIVE DISCUSSION ADVANCE DIRECTIVE DISCUSSION [facility] Start: 07-11-2021 Procedure Education Eprescribed prescriptions (G8553) [facility]; [facility] Work Phone: Start: 07-11-2021 Provider Instructions for Treatment [facility]; [facility] Work Phone: Start: 07-11-2021 Lipid panel LIPID PANEL (90735) [facility]; [facility] Work Phone: Start: 07-11-2021 Comprehensive metabolic panel METABOLIC PANEL, COMPREHENSIVE (49585) [facility]; [facility] Work Phone: Start: 07-11-2021 Cyanocobalamin vitamin b-12 VITAMIN B12 AND FOLATES (08832) [facility]; [facility] Work Phone: Start: 07-11-2021 Hepatitis c antibody HEPATITIS C ANTIBODY (60145) [facility]; [facility] Work Phone: Start: 05-16-2021 Procedure Education Eprescribed prescriptions (G8553) [facility]; [facility] Work Phone: Start: 05-16-2021 Urnls dip stick/tablet reagent auto microscopy URINALYSIS, W/ MICRO (99378) [facility]; [facility] Work Phone: Start: 09-26-2017 End: 09-26-2017 Appointment [facility] [employer] Work Phone: Start: 04-30-2017 End: 04-30-2017 Appointment Appointment [employer] Work Phone: Start: 04-15-2017 End: 04-15-2017 Appointment Appointment [facility] [employer] Work Phone: Start: 09-25-2016 End: 09-25-2016 SCHEDULE PLANNING MANAGER SCHEDULE PLANNING MANAGER [facility] [employer] Work Phone: Start: 09-25-2016 End: 09-25-2016 Electrocardiogram, complete EKG (In office) [facility] [employer] Work Phone: Start: 09-25-2016 End: 09-25-2016 Follow Up Appt 1 year Follow Up Appt 1 year [facility] [employer] Work Phone: Start: 03-20-2016 End: 09-20-2015 *Hepatic Function Panel *Hepatic Function Panel [facility] [employer] Work Phone: Start: 03-20-2016 End: 09-20-2015 Lipid panel [AGGREGATE] *Lipid Profile CC PCP [facility] [employer] Work Phone: Start: 10-07-2015 End: 09-19-2015 *Hepatic Function Panel *Hepatic Function Panel [facility] [employer] Work Phone: Start: 10-07-2015 End: 09-19-2015 Lipid panel [AGGREGATE] *Lipid Profile CC PCP [facility] [employer] Work Phone: Start: 09-23-2015 End: 09-23-2015 SCHEDULE PLANNING MANAGER SCHEDULE PLANNING MANAGER [facility] [employer] Work Phone: Start: 09-23-2015 End: 09-23-2015 Follow Up Appt 1 year Follow Up Appt 1 year [facility] [employer] Work Phone: Start: 08-17-2014 End: 08-17-2014 SCHEDULE PLANNING MANAGER SCHEDULE PLANNING MANAGER [facility] [employer] Work Phone: Start: 08-17-2014 End: 08-17-2014 Follow Up Appt 1 year Follow Up Appt 1 year [facility] [employer] Work Phone: Start: 01-11-2014 DIABETES SCREEN DIABETES SCREEN [facility] Start: 08-18-2013 End: 07-06-2015 *Hepatic Function Panel *Hepatic Function Panel [facility] [employer] Work Phone: Start: 08-18-2013 End: 08-18-2013 SCHEDULE PLANNING MANAGER SCHEDULE PLANNING MANAGER [facility] [employer] Work Phone: Start: 08-18-2013 End: 08-18-2013 Follow Up Appt 1 year Follow Up Appt 1 year [facility] [employer] Work Phone: Start: 08-18-2013 End: 07-06-2015 Lipid panel [AGGREGATE] *Lipid Profile CC PCP [facility] [employer] Work Phone: Start: 11-28-2012 End: 07-06-2015 *Hepatic Function Panel *Hepatic Function Panel [facility] [employer] Work Phone: Start: 11-28-2012 End: 07-06-2015 Lipid panel [AGGREGATE] *Lipid Profile [facility] [employer] Work Phone: Start: 11-21-2012 End: 07-06-2015 Cardiovascular stress test using treadmill Treadmill stress test (no imaging) [facility] [employer] Work Phone: Start: 09-05-2012 End: 07-06-2015 *CRPHS - C-reactive protein, high sensitivity (hsCRP) *CRPHS - C-reactive protein, high sensitivity (hsCRP) [facility] [employer] Work Phone: Start: 09-05-2012 End: 09-05-2012 Follow Up Appt 1 year Follow Up Appt 1 year [facility] [employer] Work Phone: Start: 12-18-2011 End: 03-25-2012 *Hepatic Function Panel *Hepatic Function Panel [facility] [employer] Work Phone: Start: 12-18-2011 End: 03-25-2012 Lipid panel [AGGREGATE] *Lipid Profile [facility] [employer] Work Phone: Start: 08-28-2011 End: 09-18-2011 *Hepatic Function Panel *Hepatic Function Panel [facility] [employer] Work Phone: Start: 08-28-2011 End: 07-06-2015 Follow Up Appt 6 months Follow Up Appt 6 months [facility] [employer] Work Phone: Start: 08-28-2011 End: 09-18-2011 Lipid panel [AGGREGATE] *Lipid Profile [facility] [employer] Work Phone: Start: 2010 PNEUMOCOCCAL: 65+ (1 - PCV) PNEUMOCOCCAL: 65+ (1 - PCV) [facility] Start: 1995 SHINGRIX VACCINE (1 of 2) SHINGRIX VACCINE (1 of 2) [facility] Start: 1964 Urine microalbumin profile DTAP,TDAP,TD (1 - Tdap) [facility] Start: 1963 ANNUAL PCP TEAM CHRONIC DISEASE VISIT ANNUAL PCP TEAM CHRONIC DISEASE VISIT [facility] Start: 1957 Adult depression screening assessment DEPRESSION SCREENING [facility] Dehydroepiandrostero ne sulfate (DHEA-S) [Mass/volume] in Serum or Plasma [facility] Work Phone: Patient Education [facility] Work Phone: Patient referral [facility] Work Phone: Radionuclide imaging of perfusion of myocardium under exercise stress [facility] SURGICAL PATHOLOGY SURGICAL PATH OLOGY Lab Routine Subareolar mass of right breast 04/17/2022 2:10 PM EDT [facility] Work Phone: Testosterone Free [Mass/volume] in Serum or Plasma [facility] Work Phone: Testosterone measurement [facility] Work Phone: [facility] Work Phone: [facility] Work Phone: [facility] Work Phone: [facility] Work Phone: [facility] Work Phone: [facility] Work Phone: [facility] Work Phone: [facility] Work Phone: [facility] Work Phone: [facility] Work Phone: Immunizations Immunization Date Immunization Notes Care Provider [facility] 07-08-2023 COVID-Moderna (100 MCG/0.5 ML) Francheska Fast DO Work Phone: [facility]; [facility] Work Phone: Comment on above: Spikevax 12-06-2021 COVID-Moderna (50 MCG/0.25 ML) Francheska Fast DO Work Phone: [facility]; [facility] Work Phone: Comment on above: @ [facility] 06-24-2021 COVID-Moderna (100 MCG/0.5 ML) Francheska [...] virus vaccine Dr. Spike Mullen Work Phone: [facility] 07-04-[address] Spike Mullen Work Phone: [facility] Payers Date Payer Category Payer Self-pay [id number] 2021 Medicare [id number] 2021 Medicare MMO MEDICARE MMO MEDADVANTAGE HMO [id number] 2021-Present [phone] [address] [place] [id number] O [id number] 2021 Medicare MMO MEDICARE MMO MEDADVANTAGE HMO [id number] 2021-Present [phone] [address] [place] [address] O [id number] 2020 Medicare [id number] 2013 Unknown [id number] 2010 Medicare [id number] 1945 Unknown [id number] Medicare [id number] Unknown Unknown [facility] PACKAGE PLAN [id number] Unknown [id number] Unknown [id number] [id number] Unknown [id number] [id number] Unknown [id number] 2.16.840.1.209034.3.579.2.462 Unknown [id number] 2.16.840.1.653518.3.579.2.462 Unknown [id number] 2.16.840.1.571791.3.579.2.462 Unknown [id number] 2.16.840.1.046621.3.579.2.462 Unknown [id number] [id number] Unknown [id number] 2.16.840.1.903818.3.579.2.462 Unknown [id number] 2.16.840.1.442287.3.579.2.462 Unknown [id number] [id number] Unknown [id number] [id number] Unknown [id number] [id number] Unknown [id number] [id number] Social History Date Type Detail Facility Alcohol Use: [facility] Work Phone: Comment on above: wine Tobacco Use: Tobacco Use: [facility] Work Phone: Start: 01-08-2022 End: 12-03-2023 Tobacco smoking status NHIS Unknown if ever smoked [facility] Start: 1945 Sex Assigned At Male [facility] Start: 11-24-2010 End: 02-25-2025 Tobacco smoking status NHIS Never smoked tobacco [facility] Work Phone: Start: 11-24-2010 End: 12-29-2010 Tobacco use and exposure Smokeless tobacco non-user [facility] Work Phone: Start: 04-10-2022 End: 04-17-2022 Alcohol intake Current drinker of alcohol (finding) [facility] Start: 04-10-2022 End: 04-17-2022 Alcohol intake [facility] Start: 1945 Sex Assigned At Not on file [facility] Start: 03-31-2022 End: 04-17-2022 Exposure to SARS-CoV-2 (event) Not sure [facility] Start: 12-30-2024 Sex Male (finding) [facility] Goals Date Patient Goal Desired Activity /State Mental Status Date Assessment Result Facility 03-02-2025 Cognitive function Level Of Cons ciousness Awake;Alert [facility] Work Phone: 03-02-2025 Cognitive function Voice/Name [facility] Work Phone: 02-13-2023 Cognitive function Voice/Name [facility] Work Phone: 11-29-2022 Cognitive function Awake;Alert;Appropriat e [facility] Work Phone: 01-10-2022 Cognitive function Voice/Name [facility] Work Phone: Clinical Notes 04-10-2022 to 03-02-2025 Note Date & Type Note Facility 03-02-2025 Consult note [facility] 03-02-2025 Procedure note [facility] 03-02-2025 Procedure note [facility] 03-02-2025 History and physi yan note [facility] 03-02-2025 Note [facility] Medical Records Department [address] [place] [address] History Physical Exam 03/02/25 0648 MR#: [id number] Acct: [id number] Name: JUNG ABURTO Rep #: [id number] : 1945 79 From: David Parra DO PCP: Dr. Francheska Alonzo, DO Status:REG [facility] Location: [place] [id number] HPI - General General Date of Admission: [...] he is able to keep him symptoms "at bay". 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 REPLACED BY [facility] Medical History Arteriosclerosis of coronary artery Normal [...] vomiting or weig (more content not included)... 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 8:26am Gastroesophageal reflux disease noneactive December 17, 2024 8:26am Essential (primary) hypertension chronic January 26, 2025 12:54pm Hyperlipidemia chronic January 26, 2025 12:54pm Yates esophagus chronic March 022024 5:38am [facility] Work Phone: [phone]) 825-610501-23-2025 Evaluation note* Diagnosis Onset Date Resolution Status Admit Date Yates esophagus chronic October 01, 2024 1:53pm Gastroesophageal reflux disease none active October 01, 2024 1:53pm Yates esophagus chronic December 082024 8:26am Gastroesophageal reflux disease none active December 17, 2024 8:26am [facility] Work Phone: 1(815) 626-254806-07-2023 Procedure [facility] 02-13-2023 Procedure [facility]03-27-2023 Procedure note [facility]03-24-2023 History and physical note Author Tea Hart [facility] November 30, 2022 4:03pm Note Date/Time November 30, 2022 4:0 3pm [facility] Medical Records Department [address] [place] [address] History & Physical Exam 11/30/22 1600 MR#: [id number] Acct: [id number] Name: JUNG ABURTO Rep #:[id number] : 1945 77 From: Tea ARIZMENDI PCP: Dr. Francheska Alonzo, DO Status:PRE [facility] Location: [facility] History and Physical JUNG ABURTO, is [...] SOB with activity, SOB at rest, SOB orthopnea\\SOB lying down, Cough or paroxysmal nocturnal dyspnea [...] applicable): CC: KYLEIGH Hart; Dr. Francheska Alonzo DO~ Signed [facility] Work Phone: 1(340) 402-791208-09-2022 NoteHNO ID: [id number] Author: Mal Joseph MD Service: ? Author [...] applied and the patient tolerated the procedure well.[facility]08-09-2022 NoteHNO ID: [id number] Author: Ofelia Plaza Service: ? Author Type: [...] procedures): All specimen containers correctly labeled. [facility] History of Present illness Narrative* Mal [...] correctly labeled. Ofelia Plaza [facility] NoteHNO ID: [id number] Author: Mal Joseph MD Service: ? Author [...] entered by the nurse and reviewed by tx Nursing Notes: Kirstie Lopez RN 04/10/2022 9:38 [...] depression, and denies voices, (more content not included)...[facility]08-02-2022 History of Present illness Narrative* Mal [...] entered by the nurse and reviewed by tx Nursing Notes: Kirstie Lopez RN 04/10/2022 9:38 [...] 136/84, pulse 76, height 185.4 cm (6' 1"), weight 79.3 kg (174 lb 12.8 oz), [...] Mal Joseph III, MD documented in [facility] Nurse Note* Kirstie Lopez RN - [...] 2017 Kirstie Lopez RN [facility] Author Drake Reilly [facility] Note Date/Time March 02, 2025 6:31 am [facility] Medical Records Department [address] [place] [place] [address] Pre-Anesthesia Evaluation 03/02/25625 MR#: [id number] Acct: [id number] Name: JUNG ABURTO Rep #:[id number] : 1945 79 From: Drake Reilly MD PCP: Dr. 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: Anesthesia History - newsstand vendor Hx Hospitalization No 02/25/25 12:56 Any Problems [...] take am of surgery PONV PONV - newsstand vendor: PONV - newsstand vendor Female No 02/25/25 12:56 HX of Motion [...] 03/02/25 06:01 Respiratory Assessment Respiratory Assessment - newsstand vendor: Respiratory Tract Infection Hx - newsstand vendor Hx Respiratory Tract Infection No 02/25/25 12:56 STOP Sleep Apnea STOP Sleep Apnea - newsstand vendor: STOP Sleep Apnea - newsstand vendor Hx Hypertension Yes: CONTROLLED WITH 02/25/25 12:56 [...] Tobacco Use History Tobacco Use History - newsstand vendor: Tobacco Use History - newsstand vendor Tobacco Use Smoking Status Never smoker 02/25/25 12:56 Hx Tobacco Use No 02/25/25 12:56 Years Smoking Packs Smoked per Day Smoking Cessation Date was within the last 15 years Hx Smoking Cessation Date Hx Smoking Cessation Counseling Hematologic Medial History Hematologic Hx - newsstand vendor: Hematologic Medical Hx - cold roller Hx of Blood Transfusion No 02/25/25 12:56 [...] confused, unrespo /Reproduction History /Reproductive History - newsstand vendor: /Reproductive Hx- newsstand vendor Hx Now No 02/25/25 12:56 Gestational Age [...] Unknown History mg-1,916 mg-1,000 mg efferves tab (Maryjane-Morrow Original) lisinopril 5 mg tablet 5 mg [...] and no additional complaints, except as documented. 03/02/2531 <Electronically signed by Drake anne MD> Date _ Drake Reilly MD Cosigner Signature: Date CC: ~ Signed [facility] Work Phone: Consult note Author Leo Bloom [facility] Note Date/Time March 02, 2025 7:17 am [facility] Medical Records Department [address] [place] [address] Anesthesia Postop Eval I 03/02/25715 MR#: [id number] Acct: [id number] Name: JUNG ABURTO Rep #:[id number] : 1945 79 From: Leo Bloom PCP: Dr. Francheska Alonzo, DO Status:REG [facility] Y Race: C Location: [place] [address] Anesthesia: Postop Eval I Current Vital Signs [...] Leo Marcano Signature: Date CC: ~ Signed [facility] Work Phone: Evaluation note* Diagnosis Onset Date Resolution Status Essential (primary) hypertension chronic Hyperlipidemia chronic GERD (gastroesophageal reflux disease) acute Hx of colonic polyp acute [facility] Work Phone: Evaluation note* Diagnosis Subareolar mass of right breast- Primary [facility] Diagnosis Onset Date Resolution Status Yates esophagus acute Gastritis acute GERD (gastroesophageal reflux disease) acute Hx of colonic polyp acute [facility] Work Phone: Evaluation note* Diagnosis Onset Date Resolution Status Essential (primary) hypertension chronic Hyperlipidemia chronic Abnormal cardiac CT angiography acute Essential (primary) hypertension chronic Hyperlipidemia chronic [facility] Work Phone: Evaluation note* Diagnosis Onset Date Resolution Status Essential (primary) hypertension chronic Hyperlipidemia chronic Abnormal cardiac CT angiography acute Essential (primary) hypertension chronic Hyperlipidemia chronic Yates esophagus chronic [facility] Work Phone: Evaluation note* Diagnosis Onset Date Resolution Status Abnormal cardiac CT angiography acute Essential (primary) hypertension chronic Hyperlipidemia chronic Yates esophagus chronic Yates esophagus chronic [facility] Work Phone: Evaluation note* Diagnosis Onset Date Resolution Status Yates esophagus chronic [facility] Work Phone: Evaluation note* Diagnosis Onset Date Resolution Status Left breast mass acute [facility] Work Phone: Evaluation note* Diagnosis Onset Date Resolution Status Essential (primary) hypertension chronic Hyperlipidemia chronic [facility] Work Phone: History and physical note Author David Parra [facility] February 13, 2023 7:54am Note Date/Time February 13, 2023 7:54a m [facility] Medical Records Department [address] [place] [address] History & Physical Exam 02/13/23 0753 MR#: [id number] Acct: [id number] Name: JUNG ABURTO Rep #:[id number] : 1945 77 From: David Parra DO PCP: Dr. Francheska Alonzo DO Status:[facility] Location: [place] [address] History and Physical Date of Admission: 02/13/23 [...] red wine). Jung established with this clinic 11.07.21 for [...] and oriented x3 Quality Reporting Tobacco Screening ([facility] 138) Smoking Status: Never smoker Assessment and [...] Francheska Alonzo DO; David Parra DO~ Signed [facility] Work Phone: History and physical note Author David Parra [facility] Note Date/Time March 02, 2025 6:50 am [facility] Medical Records Department [address] [place] [address] History & Physical Exam 03/02/25 0648 MR#: [id number] Acct: [id number] Name: JUNG ABURTO Rep #:[id number] : 1945 79 From: David Parra DO PCP: Dr. Francheska Alonzo, DO Status:[facility] Location: [address] HPI - General General Date of Admission: [...] Moderate to marked diffuse fecal retention. OV 1.25 pt reports that PCP switched him from dexilant to voquenza 10mg dailyon 09.21.24. Pt reports it is working, but wears off after about 12 hours. Pt reports he recently stopped drinking alcohol and thinks that his GERD has gottenworse. OV 4.07.03 pt reports his PCP gave him Voquezna, has been taking this in the evenings and then Omeprazole in the mornings. Reports as long as he watches what, how much, and when he eats, he is able to keep him symptoms "at bay". 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 REPLACED BY [facility] Medical History Arteriosclerosis of coronary artery Normal [...] Francheska Alonzo DO; David Parra DO~ Signed [facility] Work Phone: Instructions* Name Dates Details Patient Instructions Indication:Nonsmoker Start:11-Jul-2021 Instruction Type:Provider Instructions for Treatment How to Access Health Informa tion Online using Patient Portal and 3rd Libertarian Apps Indication:Nonsmoker Start:11-Jul-2021 Instruction Type:Patient Edu cation Patient Instructions Indication:Nonsmoker Start:16-May-2021 Instruction Type:Provider Instructions for Treatment How to Access Health Informa tion Online using Patient Portal and 3rd Libertarian Apps Indication:Nonsmoker Start:16-May-2021 Instruction Type:Patient Edu [...] 3rd Libertarian Apps Indication:Nonsmoker Start:16-May-2021 Instruction Type:Patient Edu cation [facility] Internal Medicine; [facility] Work Phone: instructions* Name Dates [...] Libertarian Apps Indication:Nonsmoker Start:16-May-2021 Instruction Type:Patient Education [facility] Internal Medicine; [facility] Work Phone: instructions* Name Dates [...] Phone: Instructions* Name Dates Details Patient Instructions Indication:Anxiety Start:24-Jan-2022 [...] Internal Medicine; [facility] Work Phone: instructROCKETHOME* Name Dates Details Patient Instructions Indication:Anxiety Start:24-Jan-2022 [...] Instructions* Name Dates Details Patient Instructions Indication:Nonsmoker Start:23-Mar-2022 [...] Phone: instructions* Name Dates Details Patient Instructions Indication:Subareolar gynecomastia [...] Informa tion Online using Patient Portal and [employer] Libertarian Apps Indication:Nonsmoker Start:11-Jul-2021 Instruction Type:Patient Education Patient Instructions Indication:Nonsmoker Start:16-May-2021 Instruction Type:Provider Instructions for Treatment How to Access Health Informa tion Online using Patient Portal and [employer] Libertarian Apps Indication:Nonsmoker Start:16-May-2021 Instruction Type:Patient Education [facility]; [facility] Work Phone: reason for referral (narrative)No reason for referral information [facility] Work Phone: Summary Purpose Family History No [...] Records Found Name Dates Details Immunization Registry [place] - Effective on 07/12/2021. Expiration date unspecified Effective:12-Jul-2021 Name Dates Details Immunization Registry [place] - Effective on 07/12/2021. Expiration date unspecified Effective:12-Jul-2021 Name Dates Details Immunization [place] - Effective on 07/12/2021. Expiration date unspecified Effective:12-Jul-2021 Name Dates Details Living Will - Effective on . Expiration date unspecified. Scanned Document is available upon request. Effective:30-Oct-2021 Immunization Registry [place] - Effective on 07/12/2021. Expiration date unspecified Effective:12-Jul-2021 Name Dates Details Living Will - Effective on . Expiration date unspecified. Scanned Document is available upon request. Effective:30-Oct-2021 Immunization Registry [place] - Effective on 07/12/2021. Expiration date unspecified Effective:12-Jul-2021 Advance Directive Response Recorded Date/ Time Advance Directives Yes May 12:05pm Living Will Yes January 08, 2022 11 :20am Power of Passenger Brakeman Yes January 08, 2022 11:20am Name Dates Details Living Will - Effective on . Expiration date unspecified. Scanned Document is available upon request. Effective:30-Oct-2021 Immunization Registry [place] - Effective on 07/12/2021. Expiration date unspecified Effective:12-Jul-2021 Name Dates Details Living Will - Effective on . Expiration date unspecified. Scanned Document is available upon request. Effective:30-Oct-2021 Immunization Registry [place] - Effective on 07/12/2021. Expiration date unspecified Effective:12-Jul-2021 Name Dates Details Living Will - Effective on . Expiration date unspecified. Scanned Document is available upon request. Effective:30-Oct-2021 Immunization Registry [place] - Effective on 07/12/2021. Expiration date unspecified Effective:12-Jul-2021 Name Dates Details Living Will - Effective on . Expiration date unspecified. Scanned Document is available upon request. Effective:30-Oct-2021 Immunization Registry [place] - Effective on 07/12/2021. Expiration date unspecified Effective:12-Jul-2021 Name Dates Details Living Will - Effective on . Expiration date unspecified. Scanned Document is available upon request. Effective:30-Oct-2021 Immunization Registry [place] - Effective on 07/12/2021. Expiration date unspecified Effective:12-Jul-2021 Name Dates Details Living Will - Effective on . Expiration date unspecified. Scanned Document is available upon request. Effective:30-Oct-2021 Immunization Registry [place] - Effective on 07/12/2021. Expiration date unspecified Effective:12-Jul-2021 Name Dates Details Living Will - Effective on . Expiration date unspecified. Scanned Document is available upon request. Effective:30-Oct-2021 Immunization Registry [place] - Effective on 07/12/2021. Expiration date unspecified Effective:12-Jul-2021 Documents on File Type Date Recorded Patient Lay Out Drafter Expl anation Advance Directive(s) 12/16/2017 8:36 AM Advance Directive Response Recorded Date/ Time Name of Medical Power of Passenger Brakeman January 08, 2022 11:20am Advance Directives Yes May h, 2015 12:05pm Living Will Yes January 08, 2022 11 :20am Power of Passenger Brakeman Yes January 08, 2022 11:20am Name Dates Details Living Will - Effective on . Expiration date unspecified. Scanned Document is available upon request. Effective:30-Oct-2021 Immunization Registry [place] - Effective on 07/12/2021. Expiration date unspecified Effective:12-Jul-2021 Name Dates Details Living Will - Effective on . Expiration date unspecified. Scanned Document is available upon request. Effective:30-Oct-2021 Immunization Registry [place] - Effective on 07/12/2021. Expiration date unspecified Effective:12-Jul-2021 Name Dates Details Living Will - Effective on . Expiration date unspecified. Scanned Document is available upon request. Effective:30-Oct-2021 Immunization Registry [place] - Effective on 07/12/2021. Expiration date unspecified Effective:12-Jul-2021 Name Dates Details Living Will - Effective on . Expiration date unspecified. Scanned Document is available upon request. Effective:30-Oct-2021 Immunization Registry [place] - Effective on 07/12/2021. Expiration date unspecified Effective:12-Jul-2021 Name Dates Details Living Will - Effective on . Expiration date unspecified. Scanned Document is available upon request. Effective:30-Oct-2021 Immunization Registry [place] - Effective on 07/12/2021. Expiration date unspecified Effective:12-Jul-2021 Name Dates Details Living Will - Effective on . Expiration date unspecified. Scanned Document is available upon request. Effective:30-Oct-2021 Immunization Registry [place] - Effective on 07/12/2021. Expiration date unspecified Effective:12-Jul-2021 Advance Directive Response Recorded Date/ Time Advance Directives on File Yes December 03, 2022 10:08am Name of Medical Power of Passenger Brakeman Venecia Aburto- December 03, 2022 10:08am Advance Directives Yes December 03 023 10:08am Living Will Yes December 03, 2022 10:08am Power of Passenger Brakeman Yes December 03 10:08am Name Dates Details Living Will - Effective on . Expiration date unspecified. Scanned Document is available upon request. Effective:30-Oct-2021 Immunization Registry [place] - Effective on 07/12/2021. Expiration date unspecified Effective:12-Jul-2021 Advance Directive Response Recorded Date/ Time Advance Directives on File Yes December 03, 2022 10:08am Name of Medical Power of Passenger Brakeman Venecia Aburto- March 27th, 2023 10:08am Name of Medical Power of Passenger Brakeman IRMA NAIR February 12, 2023 8:23am Advance Directives Yes December 03, 2 023 10:08am Living Will Yes February 12, 2023 8 :23am Power of Passenger Brakeman Yes February 12, 2023 8:23am Name Dates Details Living Will - Effective on . Expiration date unspecified. Scanned Document is available upon request. Effective:30-Oct-2021 Immunization Registry [place] - Effective on 07/12/2021. Expiration date unspecified Effective:12-Jul-2021 Name Dates Details Living Will - Effective on . Expiration date unspecified. Scanned Document is available upon request. Effective:30-Oct-2021 Immunization Registry [place] - Effective on 07/12/2021. Expiration date unspecified Effective:12-Jul-2021 Name Dates Details Living Will - Effective on . Expiration date unspecified. Scanned Document is available upon request. Effective:30-Oct-2021 Immunization Registry [place] - Effective on 07/12/2021. Expiration date unspecified Effective:12-Jul-2021 Advance Directive Response Recorded Date/ Time Name of Medical Power of Passenger Brakeman IRMA NAIR February 12, 2023 8:23am Advance Directives Yes December 03, 023 10:08am Living Will Yes February 12, 2023 8 :23am Power of Passenger Brakeman Yes February 12, 2023 8:23am Name Dates Details Living Will - Effective on . Expiration date unspecified. Scanned Document is available upon request. Effective:30-Oct-2021 Immunization Registry [place] - Effective on 07/12/2021. Expiration date unspecified Effective:12-Jul-2021 Name Dates Details Living Will - Effective on . Expiration date unspecified. Scanned Document is available upon request. Effective:30-Oct-2021 Immunization Registry [place] - Effective on 07/12/2021. Expiration date unspecified Effective:12-Jul-2021 Advance Directive Response Recorded Date/ Time Advance Directives Yes December 03, 2 023 9:08am Living Will Yes February 12, 2023 7 :23am Power of Passenger Brakeman Yes February 12, 2023 7:23am Advance Directive Response Recorded Date/ Time Advance Directives Yes December 03, 023 10:08am Living Will Yes February 12, 2023 8 :23am Power of Passenger Brakeman Yes February 12, 2023 8:23am Advance Directive Response Recorded Date/ Time Advance Directives Yes December 03 023 10:08am Advance Directive Response Recorded Date/ Time Living Will Yes February 12, 2023 8 :23am Do you have a Healthcare Power of Passenger Brakeman? Yes February 12, 2023 8:23am Advance Directives Yes December 03 10:08am Advance Directive Response Recorded Date/ Time Living Will Yes February 12, 2023 8 :23am Do you have a Healthcare Power of Passenger Brakeman? Yes February 12, 2023 8:23am Do you have a Healthcare Power of Passenger Brakeman? 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 Gastroesophageal reflux disease December 172024 8:26am Essential (primary) hypertension January 12:54pm Hyperlipidemia January 26, 2025 12:54 pm Yates esophagus March 02, 2025 5:38 am Chief Complaint Admit Date Gastroesophageal reflux disease (GERD) A pri2024 8:26am 1 Y January 26, 2025 12:54 pm Essential (primary) hypertension March 082024 5:57am Essential (primary) hypertension March 8:03am Chief Complaint Admit Date Gastroesophageal reflux disease (GERD) A pri2024 8:26am 1 Y FU January 26, 2025 12:54 pm Essential (primary) hypertension March 082024 5:57am Essential (primary) hypertension March 8:03am 6 M FU March 23, 2025 10:1 8am Additional Source Comments (unrecognized sect ion and content) No Status Records FoundNo Status Records FoundNo Status Records FoundNo Status Records FoundNo Status Records Found INFORMATION SOURCE (unrecogn ized section and content) DATE CREATED AUTHOR 03/05/2018 [facility] DATE CREATED AUTHOR AUTHOR'S ORGANIZ ATION 03/05/2018 [facility] DATE CREATED AUTHOR AUTHOR'S ORGANIZ ATION 04/20/2022 [facility] DATE CREATED AUTHOR AUTHOR'S ORGANIZ ATION 11/14/2022 [facility] DATE CREATED AUTHOR AUTHOR'S ORGANIZ ATION 03/27/2025 [facility] Goals (unrecognized section and content) Goals may [...] or prosecute any alcohol or drug abuse patient.[facility] the event this information is protected by the Federal Confidentiality of Alcohol and Drug Abuse Patient Records regulations: The Federal rules restrict any use of the information to criminally investigate or prosecute any alcohol or drug abuse patient.[facility] Reason for Visit (unrecogniz ed section and content) Reason Comments Consult right breast Reason Comments Procedure Right Breast Biopsy Care Teams (unrecognized sec tion and content) Advertising Writer Relationship Specialty Start Date End Date Francheska Alonzo DO [address] [facility] [address] [place], [place] [id number] PCP - General Internal Medicine 03/27/22 Advertising Writer Relationship Specialty Start Date End Date Francheska Alonzo DO [address] [facility] [address] [place], [place] [id number] PCP - General Internal Medicine 03/27/22 Team Status: Active Member Role Status Dates Spikejairon ALEMAN Family Provider Active Dr. Francheska Alonzo , DO Primary Care Provider Active Team Status: Inactive Member Role Status Dates Dr. Farncheska Alonzo , DO Primary Care Provider, Referring [...] Provider, Referring P rovider Active Alicia Garrido LAB REP, LAB REP-C Attending Provider Active Team Status: Active Member [...] 2025 End: March 02, 2025 Dr. Francheska Fast , DO Referring Provider Active St art: March 02, 2025 End: March 02, 2025 Dr. David Parra DO Attending Provider Active Start: March 02, 2025 End: March 02, 2025 Team Status: Active Member Role Status Dates Dr. Francheska Alonzo DO Primary Care Provider Active Start: March 02, 2025 Dr. Francheska Alonzo DO Referring Provider Active St art: March 02, 2025 Dr. David Parra DO Attending Provider Active Start: March 02, 2025 Dr. David Parra DO Other Provider Active St art: March 02, 2025 Team Status: Active Member Role/Relationship Status Dates Dr. Francheska Alonzo DO Primary Care Provider Active Team Status: Inactive Member Role/Relationship Status Dates Dr. Francheska Alonzo DO Primary Care Provider Active Start: December 17, 2024 End: December 17, 2024 Dr. Francheska Alonzo DO Referring Provider Active St art: December 17, 2024 End: December 17, 2024 Dr. David Parra DO Attending Provider Active Start: December 17, 2024 End: December 17, 2024 Team Status: Inactive Member Role/Relationship Status Dates Dr. Francheska Alonzo DO Primary Care Provider Active Start: December 23, 2024 End: December 23, 2024 Dr. Francheska Alonzo DO Attending Provider Active St art: December 23, 2024 End: December 23, 2024 Dr. Francheska Alonzo DO Referring Provider Active St art: December 23, 2024 End: December 23, 2024 Team Status: Inactive Member Role/Relationship Status Dates Dr. Francheska Alonzo DO Primary Care Provider Active Start: January 26, 2025 End: January 26, 2025 Dr. Francheska Alonzo DO Referring Provider Active St art: January 26, 2025 End: January 26, 2025 Dr. Petros Valdez MD Attending Provider Active S tart: January 26, 2025 End: January 26, 2025 Team Status: Inactive Member Role/Relationship Status Dates Dr. Francheska Alonzo DO Primary Care Provider Active Start: March 02, 2025 End: March 02, 2025 Dr. Francheska Alonzo DO Referring Provider Active St art: March 02, 2025 End: March 02, 2025 Dr. David Parra DO Attending Provider Active Start: March 02, 2025 End: March 02, 2025 Team Status: Active Member Role/Relationship Status Dates Dr. Francheska Alonzo DO Primary Care Provider Active Start: March 02, 2025 Dr. Francheska Alonzo DO Referring Provider Active St art: March 02, 2025 Dr. David Parra DO Attending Provider Active Start: March 02, 2025 Dr. David Parra DO Other Provider Active St art: March 02, 2025 Team Status: Inactive Member Role/Relationship Status Dates Dr. Francheska Alonzo DO Primary Care Provider Active Start: March 08, 2025 End: March 08, 2025 Dr. Petros Valdez MD Attending Provider Active S tart: March 08, 2025 End: March 08, 2025 Dr. Petros Valdez MD Referring Provider Active S tart: March 08, 2025 End: March 08, 2025 Team Status: Active Member Role/Relationship Status Dates Dr. Francheska Alonzo DO Primary Care Provider Active Start: March 08, 2025 Dr. Petros Valdez MD Attending Provider Active S tart: March 08, 2025 Team Status: Active Member Role/Relationship Status Dates Dr. Francheska Alonzo DO Primary Care Provider Active Start: March 09, 2025 Dr. Petros Valdez MD Attending Provider Active S tart: March 09, 2025 Dr. Petros Valdez MD Referring Provider Active S tart: March 09, 2025 Dr. Petros Valdez MD Other Provider Active Start : March 09, 2025 Team Status: Inactive Member Role/Relationship Status Dates Dr. Francheska Alonzo DO Primary Care Provider Active Start: March 23, 2025 End: March 23, 2025 Dr. Francheska Alonzo DO Referring Provider Active St art: March 23, 2025 End: March 23, 2025 Dr. David Parra DO Attending Provider Active Start: March 23, 2025 End: March 23, 2025 FOR RECORDS PERTAINING TO PATIENTS WHO [...] BE BASED ON THE PRIMARY CLINICAL RECORDS. [facility]. provides no warranty or guarantee of the accuracy or completeness of information in this document.
[2025-03-31 06:49] LABS: Hematocrit 43.4 % (40-54); Hemoglobin 15.1 g/dL (13.0-16.5); Immature Granulocytes Count 0.020 X10^3/uL (0.0-0.0); Mean Corp Hgb Conc 34.8 g/dL (32-36); Mean Corpuscular Volume 97.1 fL (80-94); Mean Platelet Vol. 11.0 fl (6.2-12.0); NRBC Flagged by Analyzer 0 % (0-5); Platelet Count 196 K/mm3 (150-450); RBC Distribution Width CV 12.2 % (11.6-14.6); RBC Distribution Width SD 44.0 fl (35.1-43.9); Red Blood Count 4.47 M/mm3 (4.6-6.2); White Blood Count 5.7 K/mm3 (4.4-11.0)
[2025-03-31 07:49] LABS: AST(SGOT) 21 U/L (<=37); Alanine Aminotransfer ALT/SGPT 12 U/L (<=46); Albumin, Serum 4.2 g/dL (3.4-4.8); Alkaline Phosphatase 93 U/L (40-129); Anion Gap 12 (5-15); BUN 25 mg/dL (4-19); BUN/Creat Ratio 29.0 RATIO (10-20); Calcium,Total 9.5 mg/dL (7.6-11.0); Carbon Dioxide 23.4 mmol/L (21.0-32.0); Chloride 105 mmol/L (98-108); Cholesterol 274 mg/dL (<=200); Globulin 2.5 g/dL (2.2-4.2); Glucose 83 mg/dL (70-99); Low Density Lipoprotein Calc. 174 mg/dL; Potassium 4.4 mmol/L (3.3-5.1); Triglycerides 94 mg/dL; Very Low Density Lipoprotein 19 mg/dL (5-40); cholesterol:hdl ratio screen 3.38
[2025-03-31 08:18] LABS: Vitamin B12 2127 pg/mL (180-914); Vitamin D,25 Hydroxy 81.7 ng/mL (30-100)
[2025-03-31 08:35] LABS: FOLATES,SERUM (FOLIC ACID) 38.10 ng/mL (4.60-34.80)
== END | disposition home or self-care (01) ==
LOC: LAB 06:01
PROVIDERS: PCP Internal Medicine; Referring Provider Internal Medicine; Visit Provider Internal Medicine
DX: E78.5 Hyperlipidemia, unspecified (principal); R53.83 Other fatigue; E55.9 Vitamin D deficiency, unspecified; I10 Essential (primary) hypertension
CPT/HCPCS: 36415; 80053; 80061; 82306; 82607; 82746; 84403; 84443; 85025

== ENCOUNTER 2025-04-23 09:17 | Day surgery (SDC) | payer MEDICARE, SELFPAY ==
[2025-04-23] MEDS: Lidocaine Jelly 2% 20 ML Syringe (URO-JET) 1 APPLIC (09:45)
[2025-04-23 09:49] VITALS: BP 172/83; PULSE 106; TEMP 36.2; O2SAT 100
== END 2025-04-23 10:05 | disposition home or self-care (01) ==
PROVIDERS: PCP Internal Medicine; Referring Provider Internal Medicine; Visit Provider Surgery
PROC: F00ZJWZ Instrumental Swallowing and Oral Function Assessment using Swallowing Equipment (ICD-10-PCS; CPT 43235; principal; 2025-04-23 09:25)
DX: K21.9 Gastro-esophageal reflux disease without esophagitis (principal)
CPT/HCPCS: 91010; 91013

== ENCOUNTER 2025-05-11 09:26 | Observation (INO) | payer MEDICARE, SELFPAY ==
--- NOTE | 2025-04-27 15:37 | PAT.ANESEVAL ---
Pre-Assessment Diagnosis/Proposed Procedure Planned Operative Procedure(s): LAP ED FUNDOPLICATION WITH REPAIR OF HIATAL HERNIA Anesthesia History Anesthesia History - neuro ophthalmologist: Anesthesia History - neuro ophthalmologist Hx Hospitalization No 04/27/25 10:16 Any Problems With Anesthesia No 04/27/25 10:16 Cholinesterase deficiency No 04/27/25 10:16 You/Your Family Experience No 04/27/25 10:16 fever (hyperthermia) with Relationship Recent Exposure to Contagious No 03/02/25 06:01 Disease Does patient have nerve No 04/27/25 10:16 stimulator Patient instructed to have device shut off --Does patient have Pacemaker or ICD? When Was Last Pacemaker Check QUESTION #4 FULL TEXT: You/Your Family Experience fever (hyperthermia) with Anesthesia Last Oral Intake Last Oral intake: Last Oral Intake NPO since Meds taken in AM with sips of water? Meds patient instructed to take am of surgery PONV PONV - neuro ophthalmologist: PONV - neuro ophthalmologist Female No 04/27/25 10:16 HX of Motion Sickness No 04/27/25 10:16 HX of N/V After Surgery No 04/27/25 10:16 Non-Smoker Yes 04/27/25 10:16 Duration of Surgery greater Yes 04/27/25 10:16 than 60 minutes Number of Risk Factors 2 04/27/25 10:16 PONV Score Moderate Risk 04/27/25 10:16 Height & Weight Height & Weight: Anesthesia: Height & Weight Height 6 ft 04/15/25 13:03 Respiratory Assessment Respiratory Assessment - neuro ophthalmologist: Respiratory Tract Infection Hx - neuro ophthalmologist Hx Respiratory Tract Infection No 04/27/25 10:16 STOP Sleep Apnea STOP Sleep Apnea - neuro ophthalmologist: STOP Sleep Apnea - neuro ophthalmologist Hx Hypertension Yes: CONTROLLED WITH MED 04/27/25 10:16 Hx Sleep Apnea No 04/27/25 10:16 CPAP BIPAP Do you snore loudly (louder No 04/27/25 10:16 than talking or can be heard Do you often feel tired/ No 04/27/25 10:16 fatigued/ sleepy during daytime? Has anyone observed you stop No 04/27/25 10:16 breathing during sleep? STOP Results Negative 04/27/25 10:16 QUESTION #5 FULL TEXT : Do you snore loudly (louder than talking or can be heard through closed doors)? 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 Specify any problems Hx of Preganancy in last 3 N/A 04/27/25 10:16 Months Nurse Filling Out Transfusion DSCHRIBER 04/27/25 10:16 & Questions: Date: 04/27/25 04/27/25 10:16 Time: 10:17 04/27/25 10:16 Patient unable to answer at this time (ie. confused, unrespo /Reproduction History /Reproductive History - neuro ophthalmologist: /Reproductive Hx- neuro ophthalmologist Hx Now Gestational Age (in weeks): EDC: Hx Hx Para Hx Section SAB No 04/27/25 10:16 PFS Medical History (Updated 04/27/25 @ 10:19 by Natacha Gruber) Arteriosclerosis of coronary artery Left breast mass Gastritis Onofre esophagus Wears glasses Alcohol use Arthritis Back pain Hepatitis High cholesterol Non-smoker History of edema History of echocardiogram History of stress test Cardiology follow-up encounter Hx of colonic polyp GERD (gastroesophageal reflux disease) Mitral valve annular calcification Chronic renal insufficiency Essential (primary) hypertension Raynaud disease Hyperlipidemia Palpitations Home Medications ?Medication ?Instructions ?Recorded ?Last Taken ?Type coenzyme Q10 30 mg capsule 30 mg PO DAILY 05/21/16 Unknown History multivitamin 1 ea PO DAILY 05/21/16 Unknown History cyanocobalamin (vitamin B-12) 2,000 mcg PO DAILY 04/22/17 Unknown History 2,000 mcg tablet ascorbic acid (vitamin C) 1,000 mg 1 g PO QDAY 09/25/17 Unknown History tablet s-adenosylmethionine 400 mg tablet 800 mg PO DAILY 10/10/21 Unknown History melatonin 12 mg tablet 12 mg PO QHS 10/16/22 Unknown History rosuvastatin 10 mg tablet 10 mg PO QHS 10/16/22 11/28/22 History Held on 02/25/25. Instructions: pt does not want to take it aspirin-sod bicarb-citric acid 325 1 tab PO PRN PRN BLOATING 11/30/22 Unknown History mg-1,916 mg-1,000 mg efferves tab ([place]-[place] Original) lisinopril 5 mg tablet 5 mg PO DAILY #90 tabs 09/28/24 Unknown Rx omeprazole 40 mg capsule,delayed 40 mg PO QDAY #90 caps 10/16/24 Unknown Rx release multivitamin with min 1 tab PO DAILY 04/27/25 Unknown History no.36-iron,carbonyl-FA 16 mg iron-0.38 mg tablet (Geritol Complete) vitamin E 200 unit chewable tablet 1 tab PO DAILY 04/27/25 Unknown History Allergy/AdvReac Type Severity Reaction Status Date / Time No Known Allergies Allergy Verified 04/27/25 09:55 Family History Father Cancer Colon cancer Mother , age 72 CAD (coronary artery disease) Hypertension Breast cancer Surgical History (Updated 04/27/25 @ 10:19 by Natacha Gruber) History of hand surgery History of cardiac catheterization History of esophagogastroduodenoscopy (EGD) Hx of foot surgery Hx of colonoscopy Hx of hernia repair Hx of transurethral resection of prostate Hx of appendectomy History of hydrocelectomy Social History Smoking Status: Never smoker alcohol intake: current alcohol intake frequency: 0-2 drinks per day substance use type: does not use caffeine: Yes Type: coffee Number of servings: 4 Audit: Pertinent Findings Pertinent Findings EKG Perinent findings: EKG from 04/25/2021: Showed sinus rhythm and occasional PACs; only 1 PAC registered during this EKG. Stress test pertinent findings: Stress echocardiogram from 05/05/2021 Conclusion: Exercise stress echo with no EKG criteria or echocardiographic criteria for ischemia. Good functional aerobic capacity. Echo (EF%) pertinent findings: Echocardiogram from 03/08/2025. Interpretation Summary Normal LV size. Mild concentric left ventricular hypertrophy. The left ventricular ejection fraction is 70 %. Mild focal aortic valve calcification. Stage 1 diastolic dysfunction. Pulmonary artery systolic pressure is 28 mmHg. Heart catheterization pertinent findings: Cardiac catheterization 12/03/2022 The patient was found to have a left ventricular ejection fraction of 65%. The patient had mild calcification of the left main coronary artery. Mild to moderately calcified mid LAD stenosis approximated at 40 to 50%. Circumflex artery showed luminal irregularities less than 30%. The ramus showed about a 40 to 50% stenosis. The right coronary artery showed no significant coronary artery disease. The mitral valve showed some annular calcification. Consult pertinent findings: Cardiology visit 01/26/2025: Per the note the patient's blood pressure is under excellent control. The patient did show mid 40 to 50% stenosis of the LAD of which cardiology recommended him to have a regular exercise stress test and echocardiogram. He is being medically managed. The patient had his recent echocardiogram completed and was not significant. Recommendation Anesthesia Recommendation Anesthesia recommendation: OPTIMIZED for anesthesia
[2025-05-11] VITALS (19 sets, daily range): BP systolic 124–148; BP diastolic 69–84; PULSE 58–95; RESP 16–20; TEMP 36–36.9; O2SAT 97–100; BMI 22.8
--- OUTSIDE RECORDS SUMMARY | 2025-05-11 06:22 | XMS RPT_ITS | CCD ---
Author Organization [facility] Care Team Providers Care Individual Pension Adviser Name Role Phone Khadijah Wilson PA-C Unavailable [employer] Unavailable Mal Joseph MD Unavailable ADRIANNA MCDUFFIE Unavailable Unavailable ADRIANNA MCDUFFIE Unavailable Unavailable NO REFERRING DR Unavailable Unavailable ADRIANNA MCDUFFIE Unavailable Unavailable ADRIANNA MCDUFFIE Unavailable Unavailable Fast DO, Francheska A Unavailable [facility], Naida Unavailable Unavailable Slarb SPIRAL WEAVER, Yoko Unavailable Unavailable Unavailable Unavailable Friend, Dr. Hernandez Unavailable Dr. Spike Mullen Referring Provider Dr. Petros Valdez Attending Provider Clinton, Dr. Pritchard Primary Care Provider [phone] Dr. Francheska Alonzo Referring Provider [phone] Radhika TECH BRAZER TESTER, TECH BRAZER TESTER-C Alicia Delatorre Attending Provider FriendDr. Hernandez Attending Provider Friend, Dr. Hernandez Other Provider Fast DO, Francheska A Unavailable Mal Elizabeth MD Unavailable Ashley MORTGAGE LOAN CLOSER, Kayela Unavailable Unavailable Fast DO, Francheska A [...] Sd Kirk Attending Provider [phone] Radhika TECH BRAZER TESTER, TECH BRAZER TESTER-C Alicia Delatorre Attending Provider [phone] FriendDr. Hernandez Attending Provider [phone] Dr. David Parra Other Provider [phone] Clinton, Dr. Pritchard Primary Care Provider [phone] Courtney, Dr. Morrell Attending Provider [phone] Fast, Dr. Pritchard Referring Provider [phone] Clinton, Dr. Pritchard Primary Care Provider [phone] Fast, Dr. Pritchard Referring Provider [phone] Radhika TECH BRAZER TESTER, TECH BRAZER TESTER-C Alicia Delatorre Attending Provider [phone] ARPAN Kelly LPN Unavailable Unavailable Fast, Dr. Pritchard Primary Care Provider [phone] Fast, Dr. Pritchard Referring Provider [phone] Dr. Michele Hodgson Attending Provider Dr. Durga Pierson Attending Provider Clinton, Dr. Pritchard Primary Care Provider [phone] Fast, Dr. Pritchard Referring Provider [phone] Courtney, Dr. Morrell Attending Provider 1([facility])[phone] Fast DO, Dr. Pritchard Primary Care Provider 1([facility])[phone] Fast DO, Dr. Pritchard Referring Provider [phone] Friend DO, Dr. Hernandez Attending Provider Fast DO, Dr. Pritchard Attending Provider 1([facility])- [phone] Courtney MORALES, Dr. Morrell Attending Provider 1([facility]) -[phone] Fast DO, Dr. Pritchard Primary Care Provider 1([facility])[phone] Fast DO, Dr. Pritchard Referring Provider 1([facility]) 343 Friend DO, Dr. Hernandez Attending Provider Friend DO, Dr. Hernandez Other Provider 1([facility]) -[phone] Courtney MORALES, Dr. Morrell Referring Provider 1([facility]) -[phone] Courtney MORALES, Dr. Morrell Other Provider 1([facility])-57 Dangelo MORALES, Dr. Calixto Attending Provider [phone] Friend DO, Dr. Hernandez Referring Provider Fast DO, Dr. Pritchard Primary Care Provider 1([facility])2 Fast DO, Dr. Pritchard Referring Provider 1([facility]) 343 Friend DO, Dr. Hernandez Attending Provider Fast DO, Dr. Pritchard Attending Provider 1([facility]) 343 FriendDavid Attending Unavailable Fast, Francheska Primary Care Unavailable Fast, Francheska Referring Unavailable Durga Pierson Referring Unavailable Durga Pierson Attending Unavailable Fast, Francheska Primary Care Unavailable Fast, Francheska Primary Care Unavailable Courtney, Petros Referring Unavailable Courtney, Petros Attending Unavailable Fast, Francheska Primary Care Unavailable Courtney, Imperial Attending Unavailable Fast, Francheska Primary Care Unavailable Friend, David Attending Unavailable Friend, David Consulting Unavailable Fast, Francheska Referring Unavailable Fast, Francheska Primary Care Unavailable Courtney, Petros Consulting Unavailable Courtney, Imperial Referring Unavailable Courtney, Imperial Attending Unavailable Friend, David Referring Unavailable Calabretta, Durga Attending Unavailable Fast, Francheska Primary Care Unavailable Fast, Francheska Primary Care Unavailable Fast, Francheska Referring Unavailable Friend, David Attending Unavailable Fast, Francheska Primary Care Unavailable Fast, Francheska Referring Unavailable CourtneyPetros Attending Unavailable Fast, Francheska Primary Care Unavailable Fast, Francheska Referring Unavailable Friend, David Attending Unavailable Fast, Francheska Attending Unavailable Fast, Francheska Primary Care Unavailable Fast, Francheska Referring Unavailable Durga Pierson Attending Unavailable Fast, Francheska Primary Care Unavailable Fast, Francheska Referring Unavailable Fast, Francheska Primary Care Unavailable Fast, Francheska Referring Unavailable Fast, Francheska Attending Unavailable Fast, Franchesak Primary Care Unavailable Fast, Francheska Referring Unavailable Fast, Francheska Attending Unavailable Fast, Francheska Primary Care Unavailable Fast, Francheska Referring Unavailable Fast, Francheska Attending Unavailable Fast, Francheska Primary Care Unavailable Fast, Francheska Referring Unavailable Friend, David Attending Unavailable Allergies Allergy Classification Reported Allergen(s) [...] One tablet by mouth daily ASCORBIC ACID [id number] Yeni Gray RN Start: 08-16-2011 take 1 tablet by darshan th twice daily Ascorbic Acid (VITAMIN C) 500 mg ORAL CpER Take 1 tablet by mouth twice daily. 0 08/16/2011 Active Comment on above: Take 1 tablet by [facility] twice daily. aspirin 81 mg oral tablet (17 sources) Platelet Aggregation Inhibitor, Nonsteroidal Anti-inflammatory Drug [...] sodium bicarbonate 1916 mg effervescent oral tablet (15 sources) Platelet Aggregation Inhibitor, Nonsteroidal Anti-inflammatory Drug, Calculi Dissolution Agent, Anti-coagulant Start: 11-30-2022 Aspirin-Sod Bicarb-Citric Acid (Maryjane-[place] Original) 325-1,916-1,000 mg tablet, effervescent Active 1 {tbl} PO NEEDED as needed for BLOATING November 30, 2022 12:00am Start: 11-30-2022 take 325-1916 tablet s by mouth once daily Aspirin-Sod Bicarb-Citric Acid (Maryjane-[place] Original) 325-1,916-1,000 mg tablet, effervescent Active 1 TABLET PO DAILY November 30, 2022 12:00am ubidecarenone 30 mg oral cap january (20 sources) Start: 05-21-2016 Coenzyme Q10 3 0 MG capsule Active 30 mg PO DAILY May 21, 2016 12:00am Start: 02-19-2012 take 1 capsule by [facility] once daily Coenzyme Q10 (COQ-10) 100 mg Cap Take 1 capsule by mouth once daily. 0 02/19/2012 Active Start: 12-12-2010 End: 08-28-2011 take 1 tablet by mouth once daily COENZYME Q10 60 MG TABS One tablet by mouth daily COENZYME Q10 [id number] Yeni Gray RN Comment on above: Take 1 capsule by [facility] once daily. Dexlansoprazole (Dexilant) 60 mg Capsule,Biphase Delayed Releas (18 sources) Start: 01-09-20 take 1 capsule by mouth once daily Dexlansoprazole (Dexilant) 60 mg Capsule,Biphase Delayed Releas Active 60 MG PO DAILY January 08, 2022 11:25am Start: 01-08-2022 End: 10-01-2024 take 1 capsule by mouth once daily Dexlansoprazole (Dexilant) 60 mg Capsule,Biphase Delayed Releas Discontinued 60 mg PO DAILY January 08, 2022 12:00am October 01, 2024 3:05pm Start: 01-08-2022 take 1 capsule by mo [facility] once daily Dexlansoprazole (Dexilant) 60 mg Capsule,Biphase Delayed Releas Active 60 MG PO DAILY January 07, 2022 11:00pm Start: 01-08-2022 take 1 capsule by mo [facility] once daily Dexlansoprazole (Dexilant) 60 mg Capsule,Biphase Delayed Releas Active 60 MG PO DAILY January 08, 2022 12:00am Iron (18 sources) Start: 01-08-2022 take 45 mg by [...] Combination No.4 (Probiotic) 3 billion cell Capsule (18 sources) Start: 01-08-2022 take 3 capsules by [...] 06, 2020 2:29pm Multivitamin 1 EACH tablet (8 sources) Start: 05-21-2016 Multivitamin 1 EACH tablet Active 1 NMA PO DAILY May 21, 2016 12:00am Multivitamin preparation (10 sources) Start: 05-21-2016 Multivitamin A ctive 1 EACH PO DAILY May 21, 2016 2:11pm Start: 05-21-2016 Multivitamin A ctive 1 EACH PO DAILY May 20, 2016 11:00pm Start: 05-21-2016 Multivitamin A ctive 1 EACH PO DAILY May 21, 2016 12:00am Fishers 1-Whd-Oht-Fish Oil (10 sources) Start: 04-22-2017 take 1 tablet by mouth once daily [place]ishers 1-Mnd-Tok-Fish Oil Active 1 TABLET PO DAILY April 22, 2017 10:36am Start: 04-22-2017 End: 10-16-2022 take 1 tablet by mouth once daily Fishers 8-Uxk-Hnq-Fish Oil Discontinued 1 TABLET PO DAILY April 21, 2017 11:00pm October 16, 2022 2:12pm Start: 04-22-2017 End: 10-16-2022 take 1 tablet by mouth once daily Fishers 5-Llp-Dla-Fish Oil Discontinued 1 TABLET PO DAILY April 22, 2017 12:00am October 16, 2022 3:12pm Start: 04-22-2017 take 1 tablet by darshan th once daily Fishers 8-Tjr-Gqh-Fish Oil Active 1 TABLET PO DAILY April [...] TABS One tablet by mouth daily CYANOCOBALAMIN [id number] Sonya Ozuna Vitamin b12 Acti ve Completed/Discontinued Medications Medication Drug Class(es) Dates Sig [...] verbally called to RA Shi sheehan 07/12 Comment on above: verbally called to R A - adrianek 07/12 verbally called to R Raz - eastonhak 03/07/22 verbally called to R A - brantnchak 08/01/22 acetaminophen 325 mg / oxyCODONE hydrochloride 5 mg oral tablet (18 sources) Opioid Agonist Start: 04-23-2017 End: 10-03-2017 [...] 2017 4:42pm amLODIPine 2.5 mg oral tablet (18 sources) Dihydropyridine Calcium Channel Bianca Start: 10-21-2018 [...] tablet by mouth daily AMLODIPINE BESY-BENAZEPRIL HCL [id number] Sonya Ozuna Start: 12-12-2010 End: 08-28-2011 take 1 tablet by mouth once daily LOTREL 5-10 MG CAPS One tablet by mouth daily AMLODIPINE BESY-BENAZEPRIL HCL [id number] Yeni Gray RN amoxicillin 500 mg / clavulanate 125 mg oral tablet (18 sources) Penicillin-class Antibacterial Start: 01-10-2022 End: 10-16-2022 Amoxicillin-Pot Clavulanate (Augmentin) 500-125 mg tablet Discontinued 1 {tbl} PO TWICE A DAY 14 0 January 10, 2022 12:00am October 16, 2022 3:11pm BUTALBITAL-ASPIRIN- CAFFEINE (10 sources) Barbiturate, Nonsteroidal Anti-inflammatory Drug, Central Nervous System Stimulant, Methylxanthine Start: 09-05-2012 FIORINAL 50-325-40 M G CAPS 2-3 X a week for headaches, as needed UBGYWXDVLV-MNUOSRT-NMU FEINE [id number] Petros Valdez MD Start: 12-12-2010 FIORINAL 50-32 5-40 MG CAPS 2-3 X a week for headaches, as needed BUCYWRSKZO-XHFMTDQ-CPGSUYYX [id number] Sonya Ozuna aspirin 325 mg / butalbital 50 mg / caffeine 40 mg oral capsule (18 sources) Platelet Aggregation Inhibitor, Barbiturate, Nonsteroidal Anti-inflammatory Drug, Central Nervous System Stimulant, Methylxanthine Start: 05-21-2016 End: 11-07-2021 Rbtcpubgyi-Kwhfmnc-Afqkdjgh 1 EACH capsule Discontinued 1 {tbl} PO DAILY NEEDED as needed for Headache May 21, 2016 12:00am November 07, 2021 12:32pm Start: 05-21-2016 End: 11-07-2021 take 1 tablet by mouth once daily as needed Vbfzxpwlbu-Kakffgh-Wjindcnh Discontinued 1 TABLET PO DAILY NEEDED May [...] self down 3 mos ago) ATORVASTATIN CALCIUM [id number] Petros Valdez MD Start: 07-06-2015 ATORVASTATIN C ALCIUM 40 MG TABS One tablet by mouth ever evening ATORVASTATIN CALCIUM [id number] Petros Valdez MD Comment on above: Take 20 mg by mouth once daily. cholecalciferol 0.125 mg oral tablet (2 sources) Vitamin D Start: 2 take 1 tablet by mouth once daily Cholecalciferol, Vitamin D3, 5,000 unit Tab Take 1 tablet by mouth once daily. 0 02/19/2012 Active Comment on above: Take 1 tablet by darshan once daily. dexlansoprazole 60 mg delayed release oral capsule (20 sources) Proton Pump Inhibitor Start: 3 take 1 capsule by mouth once daily Dexilant 60 mg oral capsule,delayed release,biphasic 1 (one) Capsule daily for 90 days Quantity: 90 {Capsule} Refills: 3 Ordered: 02-Jul-2023 Fast DO, Francheska A Fast DO, Francheska A Start : 02-Jul-2023 Active Start: 12-07-2022 take 1 capsule by mo [facility] once daily Dexilant 60 mg oral capsule,delayed release,biphasic 1 (one) Capsule daily for 0 days Quantity: 30 {Capsule} Refills: 6 Ordered: 07-Dec-2022 Fast DO, Francheska A Fast DO, Francheska A Start : 07-Dec-2022 Active Start: 11-10-2021 take 1 capsule by [facility] once daily Dexilant 60 MG Oral Capsule [...] Discontinued Start: 05-16-2021 take 1 capsule by [facility] once daily Dexilant 60 MG Oral Capsule [...] 12:33pm Start: 12-12-2010 [facility] DEXILANT 30 MG CPDR One tablet by mouth daily DEXLANSOPRAZOLE [id number] Sonya Ozuna diazePAM 5 mg oral tablet (20 sources) Benzodiazepine Start: 10-16-2022 End: 08-05-2023 Diazepam 5 mg tablet Discontinued 5 mg PO NEEDED as needed for Stomach Upset October 16, 2022 1:00am August 05, 2023 4:03pm Start: 07-30-2022 take 1 tablet by [facility] once daily as needed Valium 5 MG Oral Tablet 1 (one) Tablet daily as needed for 0 days Quantity: 30 {Tablet} Refills: 0 Ordered: 30-Jul-2022 Fast DO, Francheska A Fast DO, Francheska A Start : 30-Jul-2022 Active Comments: Medication taken as needed. verbally called to [facility] 08/01/22 Start: 07-30-2022 take 0.1460136365846 5714 tablet by mouth once daily as needed Valium 5 MG Oral Tablet 1 (one) Tablet daily as needed for 0 days Quantity: 30 {Tablet} Refills: 0 Ordered: 30-Jul-2022 Fast DO, Francheska A Fast DO, Francheska A Start : 30-Jul-2022 Active Comments: Medication taken as needed. verbally called to [facility] 12/04 Start: 03-14-2022 take 0.0413160005075 5714 tablet by mouth once daily as needed Valium 5 MG Oral Tablet 1 (one) Tablet daily as needed for 0 days Quantity: 30 {Tablet} Refills: 0 Ordered: 14-Mar-2022 Fast DO, Francheska A Fast DO, Francheska A Start : 14-Mar-2022 Active Comments: Medication taken as needed. verbally called to [facility] 12/04 Start: 01-24-2022 take 0.8657033953277 5714 tablet by mouth once daily as needed Valium 5 MG Oral Tablet 1 (one) Tablet daily as needed for 0 days Quantity: 30 {Tablet} Refills: 0 Ordered: 24-Jan-2022 Fast DO, Francheska A Fast DO, Francheska A Start : 24-Jan-2022 Active Comments: Medication taken as needed. verbally called to [facility] 12/04 Start: 12-04-2021 take 0.9170611109808 5714 tablet by mouth once daily as needed Valium 5 MG Oral Tablet 1 (one) Tablet daily as needed for 0 days Quantity: 30 {Tablet} Refills: 0 Ordered: 04-Dec-2021 Fast DO, Francheska A Fast DO, Francheska A Start : 04-Dec-2021 Active Comments: Medication taken as needed. verbally called to [facility] 12/04 Start: 05-21-2016 End: 11-07-2021 take 3.4828978562444401 tablets by mouth once daily as needed Valium 5 MG Oral Tablet 1 (one) Tablet daily as needed for 0 days Quantity: 30 {Tablet} Refills: 0 Ordered: 16-Oct-2021 Fast DO, Francheska A Fast DO, Francheska A Start : 16-Oct-2021 Active Comments: Medication taken as needed. [facility] 07[facility]12 Start: 05-21-2016 End: 11-07-2021 Diazepam 5 [...] taken as needed. verbally called to [facility] 07/12 Medication taken as needed. verbally called to [facility] 12/04 Medication taken as needed. verbally called to [facility] 08/01/22 Medication taken as needed. Medication taken as needed. verbally called to [facility] 01/02/23 Medication taken as needed. [facility] to [facility] 04/29/23 doxylamine succinate 25 mg oral tablet (18 sources) Start: End: 2 Doxylamine Succinate (Unisom (Doxylamine)) 25 mg tablet Discontinued 12.5 mg PO AT BEDTIME as needed October 06, 2020 1:00am November 07, 2021 12:33pm ELASTIC BANDAGES & SUPPORTS (4 sources) Start: 7 HERNIA BELT DOUBLE LARGE MISC Per package ELAST[employer] BANDAGES [employer] SUPPORTS [id number] Khadijah Wilson PA-C esomeprazole 20 mg injection (5 sources) Proton Pump Inhibitor Start: 2 take 1 tablet by mouth once daily NEXIUM 20 MG CPDR One tablet by mouth daily ESOMEPRAZOLE MAGNESIUM [id number] Petros Valdez MD famotidine 40 mg oral tablet (20 sources) Histamine-2 Receptor Antagonist Start: take 1 tablet by mouth once daily [...] 2021 12:34pm take 2 tablets by mo [facility] once daily in the evening famotidine (PEPCID) 20 mg tablet Take 40 mg by mouth DAILY AT 6 PM. 0 Active Comment on above: Take 40 mg by mouth DAILY AT 6 PM. fish oil (10 sources) Start: 12-12-2010 End: 08-28-2011 take 1 tablet by mouth once daily FISH OIL CAPS One tablet by mouth daily OMEGA-3 FATTY ACIDS CAPS [id number] Yeni Gray RN Start: 12-12-2010 take 1 tablet by darshan once daily FISH OIL CAPS One tablet by mouth daily OMEGA-3 FATTY ACIDS CAPS [id number] Sonya Ozuna Fluad 65yr up(PF)45 mcg(15 mcgx3)/0.5 [...] CPDR One tablet by mouth daily LANSOPRAZOLE [id number] Petros Valdez MD lisinopril 5 mg oral [...] TABS One tablet by mouth daily LISINOPRIL [id number] Petros Valdez MD Start: 08-28-2011 take 0.5 tablet by m out once daily LISINOPRIL 20 MG TABS One-half tablet by mouth daily LISINOPRIL [id number] Yeni Gray RN Start: 05-29-2011 take 1 tablet by darshan th once daily LISINOPRIL 20 MG TABS One tablet by mouth daily LISINOPRIL [id number] Sonya Ozuna Comment on above: Take 5 [...] state too many to list MULTIPLE VITAMIN [id number] Sonya Ozuna Multivitamin ORAL capsule (2 sources) Start: 11-24-2010 take 1 capsule by mouth once daily Multivitamin ORAL capsule Take 1 capsule by mouth once daily. 0 11/24/2010 Active Comment on above: Take 1 capsule by mo [facility] once daily. Fishers 9-Owd-Zin-Fish Oil 1 EACH capsule,delayed release(DR/EC) (8 sources) Start: 04-22-2017 End: 10-16-2022 take 1 capsule by mouth once daily [place] 6-Nzj-Yge-Fish Oil 1 EACH capsule,delayed release(DR/EC) Discontinued 1 {tbl} PO DAILY April 22, 2017 12:00am October 16, 2022 3:12pm OMEGA-3 FATTY ACIDS (5 sources) Start: 04-15-2017 EQL OMEGA 3 FI SH OIL 1200 MG CPDR once daily OMEGA-3 FATTY ACIDS [id number] Mal Joseph MD red yeast rice 600 mg oral capsule (18 sources) Start: 05-18-2021 End: 10-10-2021 take 1 [...] Start: 10-16-2022 take 2 tablets by mo uth once daily Rosuvastatin 10 mg tablet Active [...] tablet by mouth every evening ROSUVASTATIN CALCIUM [id number] Regnie Bonilla RN Comment on above: Mail order. [...] once daily. sucralfate 100 mg/ml oral suspension (17 sources) Aluminum Complex Start: 2021 End: 2022 Sucralfate (Carafate) 100 mg/mL suspension Discontinued 10 mL PO before meals 1000 0 January 26, 2022 12:00am October 16, 2022 3:13pm take 10mL three times a day one hour before a meal and two hours away from other medications for thirty days. sulfamethoxazole 800 mg / trimethoprim 160 mg oral tablet (8 sources) Dihydrofolate Reductase Inhibitor Antibacterial, Sulfonamide Antimicrobial Start: 2023 End: 2024 Sulfamethoxazole-Trim ethoprim (Bactrim Ds) 800-160 mg tablet Discontinued 1 {tbl} PO DAILY 10 10 May 10, 2024 12:00am January 26, 2025 1:03pm tadalafil 5 mg oral tablet (10 sources) Phosphodiesterase 5 Inhibitor Start: 2022 take 1 tablet by mouth once daily tadalafiL 5 mg oral tablet 1 (one) tablet qd as directed for 0 days Quantity: 30 {Tablet} Refills: 3 Ordered: 25-Feb-2023 Isaisofia JANE Naida Start : 25-Feb-2023 Active tamsulosin hydrochloride 0.4 mg oral capsule (18 sources) alpha-Adrenergic Bianca Start: 2016 End: 2017 take 1 capsule by mouth once daily Tamsulosin 0.4 MG capsule Discontinued 0.4 mg PO DAILY 7 0 April 27, 2017 12:00am October 03, 2017 4:42pm CHOLECALCIFEROL (10 sources) Start: 2010 take 1 tablet by mouth once daily VITAMIN D 1000 UNIT TABS One tablet by mouth daily CHOLECALCIFEROL [id number] Sonya Ozuna Start: 12-12-2010 End: 08-28-2011 take 1 tablet by mouth once daily VITAMIN D 1000 UNIT TABS One tablet by mouth daily CHOLECALCIFEROL [id number] Yeni Gray RN vitamin e 400 unt oral capsule (10 sources) Start: 12-12-2010 End: 08-28-2011 take 1 tablet by mouth once daily VITAMIN E 400 UNIT CAPS One tablet by mouth daily VITAMIN E [id number] Sonya Ozuna Vonoprazan (Voquezna) 10 mg tablet (8 sources) Start: 10-01-2024 End: 04-15-2025 take 1 tablet by mouth once daily Vonoprazan (Voquezna) 10 mg tablet Discontinued 10 mg PO daily October 01, 2024 1:00am April 15, 2025 1:04pm Start: 10-01-2024 take 1 tablet by darshan th once daily Vonoprazan (Voquezna) 10 mg tablet Active 10 mg PO daily October 01, 2024 1:00am Problems Active Problems Problem Classification Problem Date Documented Date Episodic/Chronic Abdominal hernia (7 sources) Bilateral inguinal hernia; Translations: [Hiatal hernia] Onset: 7 04-15-2017 Episodic Abdominal pain (20 sources) Flank pain; Translations: [...] modifica tion Diseases of white blood cells (8 sources) Leukocytosis; Translations: [Elevated white blood cell [...] regimen CONTROLLED WITH MEDS Gastritis and duodenitis (19 sources) Gastritis; Translations: [Gastritis, unspecified, without bleeding] Episodic Genitourinary symptoms and ill-defined conditions (8 sources) Dysuria; Translations: [Dysuria] 05-18-2024 Episodic Headache; [...] Resolved: 3 07-11-2021 Episodic Malaise and fatigue (18 sources) Fatigue; Translations: [Other fatigue] 10-09-2021 Episodic [...] da te Other and unspecified benign neoplasm (18 sources) History of polyp of colon; Translations: [Personal history of colonic polyps] 10-11-2022 Episodic Other and unspecified benign neoplasm (3 sources) Personal history of colonic polyps; Translations: [Personal history of colonic polyps] Episodic Other and unspecified benign neoplasm (20 sources) Dysplastic nevus of skin; Translations: [Atypical nevus] 07-30-2022 Episodic Comment on above: 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 Other circulatory disease (18 sources) Raynaud's disease; Translations: [Raynaud's syndrome without [...] abnormal; Translations: [Abnormal electrocardiogram [ECG] [EKG]] Onset: 5 11-30-2022 Episodic Comment on above: nonspecific st [...] multinodular goiter; 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] Onset: 1 11-24-2010 Chronic Unclassified (20 sources) MDVI WELLNESS EXAM 07-11-2021 Unclassified (20 sources) Chronic tension headaches Unclassified (20 sources) Unclassified (20 sources) BMI 22.0-22.9, adult Unclassified (20 sources) Nonsmoker Unclassified (20 sources) Encounter for hepatitis C virus screening test for high risk patient Unclassified (20 sources) Colon polyp Unclassified (20 sources) PVCs (premature ventricular contractions) Unclassified (17 sources) BMI 21.0-21.9, adult Urinary tract infections (8 sources) Acute urinary tract infection; Translations: [Urinary tract infection, site not specified] 05-18-2024 Episodic Past or Other Problems Problem Classification Problem Date Documented Da te Episodic/Chronic Lymphadenitis (3 sources) Enlarged lymph nodes, unspecified; Translations: [ENLARGED LYMPH NODES UNS] Onset: 04-09-2017 Episodic Other aftercare (5 sources) Other half-way (current) drug therapy; Translations: [Other half-way (current) drug therapy] Onset: 12-12-2010 12-12-2010 Episodic [...] Name Value Interpretation Reference Range Facility MR/Augie 04-27-2025 MR/PAT.[facility] Medical Records Department [address] [place] [address] PAT - Anesthesia 04/27/25 1537 MR#: [id number] Acct: [id number] Name: JUNG ABURTO Rep #: [id number] : 1945 80 From: Collin Hammer MD PCP: Dr. 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 When Was Last Pacemaker Check QUESTION #4 FULL TEXT: You/Your Family Experience fever (hyperthermia) with Anesthesia Last Oral Intake Last Oral intake: Last Oral Intake NPO since Meds taken in AM with sips of water? Meds patient instructed to take am of surgery PONV PONV - hand baseball sewer: PONV - hand baseball sewer Female No 04/27/25 10:16 HX of Motion Sickness No 04/27/25 10:16 HX of N/V After Surgery No 04/27/25 10:16 Non-Smoker Yes 04/27/25 10:16 Duration of Surgery greater Yes 04/27/25 10:16 than 60 minutes Number of Risk Factors 2 04/27/25 10:16 PONV Score Moderate Risk 04/27/25 10:16 Height Weight Height Weight: Anesthesia: Height Weight Height 6 ft 04/15/25 13:03 Respiratory Assessment Respiratory Assessment - hand baseball sewer: Respiratory Tract Infection Hx - hand baseball sewer Hx Respiratory Tract Infection No 04/27/25 10:16 STOP Sleep Apnea STOP Sleep Apnea - hand baseball sewer: STOP Sleep Apnea - hand baseball sewer Hx Hypertension Yes: CONTROLLED WITH MED 04/27/25 10:16 Hx Sleep Apnea No 04/27/25 10:16 CPAP BIPAP Do you snore loudly (louder No 04/27/25 10:16 than talking or can be heard Do you often feel tired/ No 04/27/25 10:16 fatigued/ sleepy during daytime? Has anyone observed you stop No 04/27/25 10:16 breathing during sleep? STOP Results Negative 04/27/25 10:16 QUESTION #5 FULL TEXT : Do you snore loudly (louder than talking or can be heard through closed doors)? 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 confused, unrespo /Reproduction History /Reproductive History - hand baseball sewer: /Reproductive Hx- hand baseball sewer Hx Now Gestational Age (in weeks): EDC: Hx Hx Para Hx Section SAB No 04/27/25 10:16 [facility] Medical History (Updated 04/27/25 @ 10:19 by Natacha Gruber) Arteriosclerosis of coronary artery Left breast mass Gastritis Yates esophagus Wears glasses Alcohol use Arthritis Back pain Hepatitis High cholesterol Non-smoker History of edema History of echocardiogram [...] 1 g PO QDAY 09/25/17 Unknown His t (more content not included)... Normal [facility] Surgery Visit Reporton 04-[address] [facility] [address] [place] [address] OFFICE VISIT Date of Service: 04/15/25 MR#: [id number] Acct: [id number] Name: JUNG ABURTO Rep #: [id number] : 1945 Provider: Dr. Durga landa MD Age/Sex: 80/M Location: [facility] Status: Signed with Addenda ADDENDUM by Dr. Durga Pierson MD on 04/29/25 at 1258 Intake Chief Complaint: manometry Allergies No Known Allergies Allergy (Verified 04/27/25 09:55) Medications ???Medication ???Instructions ???Recorded ???Confirmed ???Type coenzyme Q10 30 mg capsule 30 mg PO DAILY 05/21/16 04/27/25 H istory multivitamin 1 ea PO DAILY 05/21/16 04/27/25 Hi story cyanocobalamin (vitamin B-12) 2,000 mcg PO DAILY 04/22/17 History 2,000 mcg tablet ascorbic acid (vitamin C) 1,000 mg 1 g PO QDAY 09/25/17 04/27/25 Hi story tablet s-adenosylmethionine 400 mg tablet 800 mg PO DAILY 10/10/21 5 History melatonin 12 mg tablet 12 mg PO QHS 10/16/22 04/27/25 His tory rosuvastatin 10 mg tablet 10 mg PO QHS 10/16/22 04/27/25 His tory Held on 02/25/25. Instructions: pt does not want to take it aspirin-sod bicarb-citric acid 325 1 tab PO PRN PRN BLOATING 04/27/25 History mg-1,916 mg-1,000 mg efferves tab (Maryjane-Denise Original) lisinopril 5 mg tablet 5 mg PO DAILY #90 tabs 09/28/24 Rx omeprazole 40 mg capsule,delayed 40 mg PO QDAY #90 caps 10/16/24 Rx release multivitamin with min 1 tab PO DAILY 04/27/25 04/27/25 H istory no.36-iron,carbonyl-FA 16 mg iron-0.38 mg tablet (Geritol Complete) vitamin E 200 unit chewable tablet 1 tab PO DAILY 04/27/25 04/27/25 History Assessment and Plan Assessment and Plan (1) Hiatal hernia: Status: Acute Plan: The patient has a type II hiatal hernia and he has never had a hernia repair in the past 04/29/25 1258 Date Durga Pierson MD cc: * Signed Intake Vital Signs 03/02/25 06:01 04/15/25 13:03 Height 6 ft 6 ft Weight: 166 lb 6 oz BMI 22.5 BP 132/79 H Blood Pressure Location Rt brachial Position Sitting Respiration 17 Pulse 51 L Pulse Source Monitor Intake Visit Reasons: HIATAL HERNIA Chief Complaint: hiatal hernia Is patient in pain?: No Allergies No Known Allergies Allergy (Verified 04/15/25 13:04) Medications ???Medication ???Instructions ???Recorded ???Confirmed ???Type coenzyme Q10 30 mg capsule 30 mg PO DAILY 05/21/16 04/15/25 H istory multivitamin 1 ea PO DAILY 05/21/16 04/15/25 Hi story cyanocobalamin (vitamin B-12) 2,000 mcg PO DAILY 04/22/17 History 2,000 mcg tablet ascorbic acid (vitamin C) 1,000 mg 1 g PO QDAY 09/25/17 04/15/25 Hi story tablet s-adenosylmethionine 400 mg tablet 800 mg PO DAILY 10/10/21 5 History melatonin 12 mg tablet 12 mg PO QHS 10/16/22 04/15/25 His tory rosuvastatin 10 mg tablet 20 mg PO DAILY 10/16/22 04/15/25 H istory Held on 02/25/25. Instructions: pt does not want to take it aspirin-sod bicarb-citric acid 325 1 tab PO PRN PRN BLOATING 04/15/25 History mg-1,916 mg-1,000 mg efferves tab (Jennifer Original) lisinopril 5 mg tablet 5 mg PO DAILY #90 tabs 09/28/24 Rx omeprazole 40 mg capsule,delayed 40 mg PO QDAY #90 caps 10/16/24 Rx release Have you fallen in the past year?: No PFSH Medical History (Updated 04/15/25 @ 13:03 by Mckenzie Byers) Left breast mass Arteriosclerosis of coronary artery Normal stress echocardiogram [...] alcohol intake: current alcohol intake frequency: 0-2 dri (more content not included)... Normal [facility] Absolute lymphocyte countOrd ered By: Francheska Fast on 03-31-2025 Lymphocytes Auto (Unsp spec) [#/Vol] 1.51 10*3/uL 0.83-4.51 [facility] Absolute neutrophil countOrd ered By: Francheska on 03-31-2025 Neutrophils (Bld) [#/Vol] 3.3 10*3/uL 2.0-7.7 [facility] Anion gap in Serum or Plasma Ordered By: Francheska Fast on 03-31-2025 Anion gap [Moles/Vol] 12 mmol/L 5-15 [facility] Automated lymphocyte count a s percentage of total leukocytesOrdered By: Francheska Fast on 03-31-2025 Lymphocytes/100 WBC Auto (Unsp spec) 26.7 % 19-41 [facility] BUN/creatinine ratioOrdered By: Francheska on 03-31-2025 Urea nitrogen/Creatinine [Mass ratio] 29.0 mg/mg High 10-20 [facility] Basophil percentageOrdered B y: Francheska Fast on 03-31-2025 Basophils/100 WBC (Bld) 0.9 % 0-1 [facility] Bilirubin, totalOrdered By: Francheska Fast on 03-31-2025 Bilirubin [Mass/Vol] 0.33 mg/dL 0.00-1.30 [facility] CBC W/Diff, Automatedon 03-10 Absolute Lymph 1.51 X10 3/uL Normal 0.83-4.51 [facility] Comment on above: Performed By: #### L 100.0100, L501.9520, L506.0200, L500.4050, L509.3001, L506.1001, L503.0106, L500.4100 ####[facility] [address] [place], [address] Absolute Neut 3.3 X10 3/uL Normal 2.0-7.7 [facility] Comment on above: Performed By: #### L 100.0100, L501.9520, L506.0200, L500.4050, L509.3001, L506.1001, L503.0106, L500.4100 ####[facility] [address] [place], [address] Basophils/100 WBC (Bld) 0.9 % Normal 0-1 [facility] Comment on above: Performed By: #### L 100.0100, L501.9520, L506.0200, L500.4050, L509.3001, L506.1001, L503.0106, L500.4100 ####[facility] [address] [place], [address] Eosinophils/100 WBC (Bld) 6.7 % High 0-5 [facility] Comment on above: Performed By: #### L 100.0100, L501.9520, L506.0200, L500.4050, L509.3001, L506.1001, L503.0106, L500.4100 ####[facility] [address] [place], [address] Erythrocyte distribution width (RBC) [Ratio] 12.2 % Normal 11.6-14.6 [facility] Comment on above: Performed By: #### L 100.0100, L501.9520, L506.0200, L500.4050, L509.3001, L506.1001, L503.0106, L500.4100 ####[facility] [address] [place], [address] Hematocrit (Bld) [Volume fraction] 43.4 % Normal 40-54 [facility] Comment on above: Performed By: #### L 100.0100, L501.9520, L506.0200, L500.4050, L509.3001, L506.1001, L503.0106, L500.4100 ####[facility] [address] [place], [address] Hemoglobin (Bld) [Mass/Vol] 15.1 g/dL Normal 13.0-16.5 [facility] Comment on above: Performed By: #### L 100.0100, L501.9520, L506.0200, L500.4050, L509.3001, L506.1001, L503.0106, L500.4100 ####[facility] [address] [place], [address] IG% 0.400 Normal 0.0-0.9 [facility] Comment on above: Result Comment: IG% - Immature Granulocytes (promyelocytes, myelocytes and metamyelocytes) > 1% indicates that a LEFT SHIFT is Present. Performed By: #### L 100.0100, L501.9520, L506.0200, L500.4050, L509.3001, L506.1001, L503.0106, L500.4100 ####[facility] [address] [place], [address] Lymphocytes/100 WBC (Bld) 26.7 % Normal 19-41 [facility] Comment on above: Performed By: #### L 100.0100, L501.9520, L506.0200, L500.4050, L509.3001, L506.1001, L503.0106, L500.4100 ####[facility] [address] [place], [address] MCH (RBC) [Entitic mass] 33.8 pg High 27.0-32.0 [facility] Comment on above: Performed By: #### L 100.0100, L501.9520, L506.0200, L500.4050, L509.3001, L506.1001, L503.0106, L500.4100 ####[facility] [address] [place], [address] MCHC (RBC) [Mass/Vol] 34.8 g/dL Normal 32-36 [facility] Comment on above: Performed By: #### L 100.0100, L501.9520, L506.0200, L500.4050, L509.3001, L506.1001, L503.0106, L500.4100 ####[facility] [address] [place], [address] MCV (RBC) [Entitic vol] 97.1 fL High 80-94 [facility] Comment on above: Performed By: #### L 100.0100, L501.9520, L506.0200, L500.4050, L509.3001, L506.1001, L503.0106, L500.4100 ####[facility] [address] [place], [address] Monocytes/100 WBC (Bld) 7.6 % Normal 0-10 [facility] Comment on above: Performed By: #### L 100.0100, L501.9520, L506.0200, L500.4050, L509.3001, L506.1001, L503.0106, L500.4100 ####[facility] [address] [place], [address] Neutrophils/100 WBC (Bld) 57.7 % Normal 47-70 [facility] Comment on above: Performed By: #### L 100.0100, L501.9520, L506.0200, L500.4050, L509.3001, L506.1001, L503.0106, L500.4100 ####[facility] [address] [place], [address] Nucleated RBC (Bld) [#/Vol] 0 10*3/uL Normal 0-5 [facility] Comment on above: Performed By: #### L 100.0100, L501.9520, L506.0200, L500.4050, L509.3001, L506.1001, L503.0106, L500.4100 ####[facility] [address] [place], [address] Platelet mean volume (Bld) [Entitic vol] 11.0 fL Normal 6.2-12.0 [facility] Comment on above: Performed By: #### L 100.0100, L501.9520, L506.0200, L500.4050, L509.3001, L506.1001, L503.0106, L500.4100 ####[facility] [address] [place], [address] Platelets (Bld) [#/Vol] 196 10*3/uL Normal 150-450 [facility] Comment on above: Performed By: #### L 100.0100, L501.9520, L506.0200, L500.4050, L509.3001, L506.1001, L503.0106, L500.4100 ####[facility] [address] [place], [address] RBC (Bld) [#/Vol] 4.47 10*6/uL Low 4.6-6.2 [facility] Comment on above: Performed By: #### L 100.0100, L501.9520, L506.0200, L500.4050, L509.3001, L506.1001, L503.0106, L500.4100 ####[facility] [address] [place], [address] RDW SD 44.0 fl High 35.1-43.9 [facility] Comment on above: Performed By: #### L 100.0100, L501.9520, L506.0200, L500.4050, L509.3001, L506.1001, L503.0106, L500.4100 ####[facility] [address] [place], [address] WBC (Bld) [#/Vol] 5.7 10*3/uL Normal 4.4-11.0 [facility] Comment on above: Performed By: #### L 100.0100, L501.9520, L506.0200, L500.4050, L509.3001, L506.1001, L503.0106, L500.4100 ####[facility] [address] [place], [address] Calculated very low density lipoprotein (VLDL) cholesterol measurementOrdered By: Francheska Fast on 03-31-2025 Calculated very low density lipoprotein (VLDL) cholesterol measurement 19 mg/dL 5-40 [facility] Carbon dioxide, total [Moles /volume] in Central venous bloodOrdered By: Francheska Fast on 03-31-2025 CO2 [Moles/Vol] 23.4 mmol/L 21.0-32.0 [facility] Chloride assayOrdered By: De bra Fast on 03-31-2025 Chloride [Moles/Vol] 105 mmol/L 98-108 [facility] Comprehensive Metabolic Prof ilon 03-31-2025 Albumin [Mass/Vol] 4.2 g/dL Normal 3.4-4.8 [facility] Comment on above: Performed By: #### L 100.0100, L501.9520, L506.0200, L500.4050, L509.3001, L506.1001, L503.0106, L500.4100 ####[facility] [address] [place], [address] Albumin/Globulin [Mass ratio] 1.7 {ratio} Normal 0.9-2.4 [facility] Comment on above: Performed By: #### L 100.0100, L501.9520, L506.0200, L500.4050, L509.3001, L506.1001, L503.0106, L500.4100 ####[facility] [address] [place], [place], [phone]) ALK PHOS 93 U/L Normal 40-129 [facility] Comment on above: Performed By: #### L 100.0100, L501.9520, L506.0200, L500.4050, L509.3001, L506.1001, L503.0106, L500.4100 ####[facility] [address] [place], [place], [phone]) ALT [Catalytic activity/Vol] 12 U/L Normal <=46 [facility] Comment on above: Performed By: #### L 100.0100, L501.9520, L506.0200, L500.4050, L509.3001, L506.1001, L503.0106, L500.4100 ####[facility] [address] [place], [place], [phone] AST [Catalytic activity/Vol] 21 U/L Normal <=37 [facility] Comment on above: Performed By: #### L 100.0100, L501.9520, L506.0200, L500.4050, L509.3001, L506.1001, L503.0106, L500.4100 ####[facility] [address] [place], [address] Bilirubin [Mass/Vol] 0.33 mg/dL Normal 0.00-1.30 [facility] Comment on above: Performed By: #### L 100.0100, L501.9520, L506.0200, L500.4050, L509.3001, L506.1001, L503.0106, L500.4100 ####[facility] [address] [place], [address] BUN/CRE 29.0 RATIO High 10-20 [facility] Comment on above: Performed By: #### L 100.0100, L501.9520, L506.0200, L500.4050, L509.3001, L506.1001, L503.0106, L500.4100 ####[facility] [address] [place], [address] Calcium [Mass/Vol] 9.5 mg/dL Normal 7.6-11.0 [facility] Comment on above: Performed By: #### L 100.0100, L501.9520, L506.0200, L500.4050, L509.3001, L506.1001, L503.0106, L500.4100 ####[facility] [address] [place], [address] Chloride [Moles/Vol] 105 mmol/L Normal 98-108 [facility] Comment on above: Performed By: #### L 100.0100, L501.9520, L506.0200, L500.4050, L509.3001, L506.1001, L503.0106, L500.4100 ####[facility] [address] [place], [address] CO2 [Moles/Vol] 23.4 mmol/L Normal 21.0-32.0 [facility] Comment on above: Performed By: #### L 100.0100, L501.9520, L506.0200, L500.4050, L509.3001, L506.1001, L503.0106, L500.4100 ####[facility] [address] [place], [address] Creatinine [Mass/Vol] 0.85 mg/dL Normal 0.70-1.20 [facility] Comment on above: Performed By: #### L 100.0100, L501.9520, L506.0200, L500.4050, L509.3001, L506.1001, L503.0106, L500.4100 ####[facility] [address] [place], [address] GAP 12 Normal 5-15 [facility] Comment on above: Performed By: #### L 100.0100, L501.9520, L506.0200, L500.4050, L509.3001, L506.1001, L503.0106, L500.4100 ####[facility] [address] [place], [place], [phone](236) GFR/1.73 sq M.predicted among non-blacks MDRD (S/P/Bld) [Vol rate/Area] 88 mL/min/{1.73_m2} Normal >60 [facility] Comment on above: Result Comment: mL/m in/1.73m2 CKD-EPI Creatinine Equation (2020) Performed By: #### L 100.0100, L501.9520, L506.0200, L500.4050, L509.3001, L506.1001, L503.0106, L500.4100 ####[facility] [address] [place], [place], [phone]) Globulin (S) [Mass/Vol] 2.5 g/dL Normal 2.2-4.2 [facility] Comment on above: Performed By: #### L 100.0100, L501.9520, L506.0200, L500.4050, L509.3001, L506.1001, L503.0106, L500.4100 ####[facility] [address] [place], [place], [phone](488) Glucose [Mass/Vol] 83 mg/dL Normal 70-99 [facility] Comment on above: Performed By: #### L 100.0100, L501.9520, L506.0200, L500.4050, L509.3001, L506.1001, L503.0106, L500.4100 ####[facility] [address] [place], [address] Potassium [Moles/Vol] 4.4 mmol/L Normal 3.3-5.1 [facility] Comment on above: Performed By: #### L 100.0100, L501.9520, L506.0200, L500.4050, L509.3001, L506.1001, L503.0106, L500.4100 ####[facility] [address] [place], [address] Sodium [Moles/Vol] 140 mmol/L Normal 133-145 [facility] Comment on above: Performed By: #### L 100.0100, L501.9520, L506.0200, L500.4050, L509.3001, L506.1001, L503.0106, L500.4100 ####[facility] [address] [place], [address] T PROT 6.7 g/dL Normal 5.9-8.4 [facility] Comment on above: Performed By: #### L 100.0100, L501.9520, L506.0200, L500.4050, L509.3001, L506.1001, L503.0106, L500.4100 ####[facility] [address] [place], [address] Urea nitrogen [Mass/Vol] 25 mg/dL High 4-19 [facility] Comment on above: Performed By: #### L 100.0100, L501.9520, L506.0200, L500.4050, L509.3001, L506.1001, L503.0106, L500.4100 ####[facility] [address] [place], [address] Eosinophil percentageOrdered By: Francheska Fast on 03-31-2025 Eosinophils/100 WBC (Bld) 6.7 % High 0-5 [facility] Erythrocyte distribution wid th ratioOrdered By: Francheska Fast on 03-31-2025 Erythrocyte distribution width (RBC) [Ratio] 12.2 % 11.6-14.6 [facility] Erythrocyte distribution wid th standard deviationOrdered By: Francheska Fast on 03-31-2025 Erythrocyte distribution width (RBC) [Ratio] 44.0 fl High 35.1-43.9 [facility] Folate [Moles/volume] in Ser um or PlasmaOrdered By: Francheska on 03-31-2025 Folate [Moles/Vol] 38.10 ng/mL High 4.60-34.80 [facility] Comment on above: Hemolysis, Results w ill be affected, Requires Recollection. Folates,Serum (Folic Acid)on 03-31-2025 FOLATES,SERUM 38.10 ng/mL High 4.60-34.80 [facility] Comment on above: Order Comment: N Result Comment: Hemo lysis, Results will be affected, Requires Recollection. Performed By: #### L 100.0100, L501.9520, L506.0200, L500.4050, L509.3001, L506.1001, L503.0106, L500.4100 ####[facility] [address] [place], [place], [id number] Glomerular filtration rate ( GFR) estimation/1.73 sq m using serum, plasma, or whole bOrdered By: Francheska on 03-31-2025 GFR/1.73 sq M.predicted among non-blacks MDRD (S/P/Bld) [Vol rate/Area] 88 mL/min/{1.73_m2} >60 [facility] Comment on above: mL/min/1.73m2 CKD-EP I Creatinine Equation (2020) Hematocrit Auto (Bld) [Volum e fraction]Ordered By: Francheska Fast on 03-31-2025 Hematocrit (Bld) [Volume fraction] 43.4 % 40-54 [facility] Hemoglobin measurementOrdere d By: Francheska Fast on 03-31-2025 Hemoglobin (Bld) [Mass/Vol] 15.1 g/dL 13.0-16.5 [facility] Immature granulocytes/100 WB C Auto (Bld)Ordered By: Francheska Fast on 03-31-2025 Immature granulocytes/100 WBC (Bld) 0.400 % 0.0-0.9 [facility] Comment on above: IG% - Immature Granu locytes (promyelocytes, myelocytes and metamyelocytes) > 1% indicates that a LEFT SHIFT is Present. L509.3001on 03-31-2025 Testosterone [Mass/Vol] 463.00 ng/dL Normal 300-720 [facility] Comment on above: Performed By: #### L 100.0100, L501.9520, L506.0200, L500.4050, L509.3001, L506.1001, L503.0106, L500.4100 ####[facility] [address] [place], [place], [phone] LDL calc ser/plasOrdered By: Francheska Fast on 03-31-2025 Cholesterol in LDL [Mass/Vol] 174 mg/dL [facility] Comment on above: Pozqrdgkpz=796-297 m g/dL & Higher Zcvb=201 mg/dL or greater Laboratory - Chemistry and C hemistry - challengeOrdered By: Francheska Fast on 03-31-2025 AST [Catalytic activity/Vol] 21 U/L <38 [facility] Testosterone [Mass/Vol] 463.00 ng/dL 300-720 [facility] Lipid Profileon 03-31-2025 CHOL:HDL 3.38 Normal [facility] Comment on above: Performed By: #### L 100.0100, L501.9520, L506.0200, L500.4050, L509.3001, L506.1001, L503.0106, L500.4100 ####[facility] [address] [place], [address] Cholesterol [Mass/Vol] 274 mg/dL High <=200 [facility] Comment on above: Result Comment: Chol esterol level, Desirable <200 mg/dL Borderline high cholesterol 200-239 mg/dL High cholesterol >=240 mg/dL Recommendations of the NCEP Adult Treatment Panel for the following risk-cutoff thresholds for the [place] population. Performed By: #### L 100.0100, L501.9520, L506.0200, L500.4050, L509.3001, L506.1001, L503.0106, L500.4100 ####[facility] [address] [place], [address] Cholesterol in HDL [Mass/Vol] 81 mg/dL Normal [facility] Comment on above: Result Comment: Leny onal Cholesterol Education Program (NCEP) guidelines: <40 mg/dL: Low HDL-cholesterol (major risk factor for CHD) >= 60 mg/dL: High HDL-cholesterol (negative risk factor for CHD) HDL-cholesterol is affected by a number of factors, e.g. smoking, exercise, hormones, sex and age. Performed By: #### L 100.0100, L501.9520, L506.0200, L500.4050, L509.3001, L506.1001, L503.0106, L500.4100 ####[facility] [address] [place], [address] Cholesterol in LDL [Mass/Vol] 174 mg/dL Normal [facility] Comment on above: Result Comment: Bord thifin=924-011 mg/dL Higher Wveq=436 mg/dL or greater Performed By: #### L 100.0100, L501.9520, L506.0200, L500.4050, L509.3001, L506.1001, L503.0106, L500.4100 ####[facility] [address] [place], [address] Cholesterol in VLDL [Mass/Vol] 19 mg/dL Normal 5-40 [facility] Comment on above: Performed By: #### L 100.0100, L501.9520, L506.0200, L500.4050, L509.3001, L506.1001, L503.0106, L500.4100 ####[facility] [address] [place], [place], [id number] Triglyceride [Mass/Vol] 94 mg/dL Normal [facility] Comment on above: Result Comment: The drugs N-Acetylcysteine and Metamizole may falsely depress this assay. Normal range: <150 mg/dL Borderline High: 150-199 mg/dL High: 200-499 mg/dL Very High: >500 mg/dL Performed By: #### L 100.0100, L501.9520, L506.0200, L500.4050, L509.3001, L506.1001, L503.0106, L500.4100 ####[facility] [id number] [place], [place], [id number] MCV (mean corpuscular volume ) determinationOrdered By: Francheska Fast on 03-31-2025 MCV (RBC) [Entitic vol] 97.1 fL High 80-94 [facility] Mean corpuscular hemoglobin (MCH) determinationOrdered By: Francheska Fast on 03-31-2025 MCH (RBC) [Entitic mass] 33.8 pg High 27.0-32.0 [facility] Mean corpuscular hemoglobin concentration (MCHC) determinationOrdered By: Francheska Fast on 03-31-2025 MCHC (RBC) [Mass/Vol] 34.8 g/dL 32-36 [facility] Mean platelet volume determi nationOrdered By: Francheska Fast on 03-31-2025 Platelet mean volume (Bld) [Entitic vol] 11.0 fL 6.2-12.0 [facility] Monocyte percentageOrdered B y: Francheska Fast on 03-31-2025 Monocytes/100 WBC (Bld) 7.6 % 0-10 [facility] Neutrophil percentageOrdered By: Francheska Fast on 03-31-2025 Neutrophils/100 WBC (Bld) 57.7 % 47-70 [facility] Nucleated red blood cell per centageOrdered By: Francheska on 03-31-2025 Nucleated RBC/100 WBC (Bld) [Ratio] 0 % 0-5 [facility] Platelet countOrdered By: Thorne on 03-31-2025 Platelets (Bld) [#/Vol] 196 10*3/uL 150-450 [facility] Potassium measurement (mass/ volume)Ordered By: 03-31-2025 Potassium (Unsp spec) [Mass/Vol] 4.4 mmol/L 3.3-5.1 [facility] RBC Auto (Bld) [#/Vol]Ordere d By: on 03-31-2025 RBC (Bld) [#/Vol] 4.47 10*6/uL Low 4.6-6.2 [facility] Screening total cholesterol/ high density lipoprotein (HDL) cholesterol ratioOrdered By: 03-31-2025 Cholesterol.total/Cho lesterol in HDL [Mass ratio] 3.38 {ratio} [facility] Serum creatinine measurement (mass/volume)Ordered By: on 03-31-2025 Creatinine [Mass/Vol] 0.85 mg/dL 0.70-1.20 [facility] Serum globulin measurementOr dered By: 03-31-2025 Globulin (S) [Mass/Vol] 2.5 g/dL 2.2-4.2 [facility] Serum glucose measurement (m ass/volume)Ordered By: 03-31-2025 Glucose [Mass/Vol] 83 mg/dL 70-99 [facility] Serum or plasma alanine nichole otransferase (ALT) measurementOrdered By: 03-31-2025 ALT [Catalytic activity/Vol] 12 U/L <47 [facility] Serum or plasma albumin pauline urement (mass/volume)Ordered By: 03-31-2025 Albumin [Mass/Vol] 4.2 g/dL 3.4-4.8 [facility] Serum or plasma albumin/glob ulin mass ratioOrdered By: 03-31-2025 Albumin/Globulin [Mass ratio] 1.7 {ratio} 0.9-2.4 [facility] Serum or plasma alkaline fabby sphatase measurementOrdered By: Francheska Fast on 03-31-2025 ALP [Catalytic activity/Vol] 93 U/L 40-129 [facility] Serum or plasma calcium pauline urement (mass/volume)Ordered By: Francheska on 03-31-2025 Calcium [Mass/Vol] 9.5 mg/dL 7.6-11.0 [facility] Serum or plasma cholesterol in HDL measurement (mass/volume)Ordered By: Francheska on 03-31-2025 Cholesterol in HDL [Mass/Vol] 81 mg/dL >40 [facility] Comment on above: National Cholesterol Education Program (NCEP) guidelines:<40 mg/dL: Low HDL-cholesterol (major risk factor for CHD)>= 60 mg/dL: High HDL-cholesterol (negative risk factor for CHD)HDL-cholesterol is affected by a number of factors, e.g. smoking, exercise, hormones, sex and age. Serum or plasma cholesterol measurement (mass/volume)Ordered By: on 03-31-2025 Cholesterol [Mass/Vol] 274 mg/dL High <201 [facility] Comment on above: Cholesterol level, D esirable <200 mg/dLBorderline high cholesterol 200-239 mg/dLHigh cholesterol >=240 mg/dLRecommendations of the NCEP Adult Treatment Panel for the following risk-cutoff thresholds for the [place] population. Serum or plasma urea nitroge n measurement (mass/volume)Ordered By: Francheska on 03-31-2025 Urea nitrogen [Mass/Vol] 25 mg/dL High 4-19 [facility] Sodium levelOrdered By: a Fast on 03-31-2025 Sodium [Moles/Vol] 140 mmol/L 133-145 [facility] TSH DL <= 0.005 mIU/L QnOrde red By: Francheska Fast on 03-31-2025 TSH Qn 1.540 uIU/mL 0.300-4.200 [facility] Thyroid Stim Hormone (TSH)on 03-31-2025 TSH 1.540 uIU/mL Normal 0.300-4.200 [facility] Comment on above: Performed By: #### L 100.0100, L501.9520, L506.0200, L500.4050, L509.3001, L506.1001, L503.0106, L500.4100 ####[facility] [address] [place], [place], [address] Total proteinOrdered By: Faby ra Fast on 03-31-2025 Protein [Mass/Vol] 6.7 g/dL 5.9-8.4 [facility] Triglycerides measurementOrd ered By: Francheska Fast on 03-31-2025 Triglyceride [Mass/Vol] 94 mg/dL <199 [facility] Comment on above: The drugs N-Acetylcy steine and Metamizole may falsely depress this assay. Normal range: <150 mg/dLBorderline High: 150-199 mg/dLHigh: 200-499 mg/dLVery High: >500 mg/dL Vitamin B12on 03-31-2025 Cobalamin (Vitamin B12) [Mass/Vol] 2127 pg/mL High 180-914 [facility] Comment on above: Performed By: #### L 100.0100, L501.9520, L506.0200, L500.4050, L509.3001, L506.1001, L503.0106, L500.4100 ####[facility] [address] [place], [place], [address] Vitamin B12 ser/plasOrdered By: Francheska Fast on 03-31-2025 Cobalamin (Vitamin B12) [Mass/Vol] 2127 pg/mL High 180-914 [facility] Vitamin D,25 Hydroxyon 03-31 Vitamin D 25-OH 81.7 ng/mL Normal 30-100 [facility] Comment on above: Result Comment: Lore min D Status Deficiency: <20 ng/mL (50nmol/L) Insufficiency: 20-30 ng/mL (50-75 nmol/L) Sufficiency: 30-100 ng/mL (75-250 nmol/L) Toxicity: >100 ng/mL (>250 nmol/L) Performed By: #### L 100.0100, L501.9520, L506.0200, L500.4050, L509.3001, L506.1001, L503.0106, L500.4100 ####[facility] [address] [place], [address] White blood cell (WBC) count Ordered By: Francheska Alonzo on 03-31-2025 WBC (Bld) [#/Vol] 5.7 10*3/uL 4.4-11.0 [facility] Gastroenterology Visit Repor ton 03-23-2025 Gastroenterology Visit Report [facility] Gastroenterology [address] [place] [address] OFFICE VISIT Date of Service: 03/23/25 MR#: [id number] Acct: [id number] Name: JUNG ABURTO Rep #: [id number] : 1945 Provider: David Parra DO Age/Sex: 79/M Location: [facility] 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 Normal [facility] Cardiovascular stress test r eportOrdered By: Petros Valdez on 03-09-[address] [facility] Cardi[facility] [address] [place] [address] MR#: [id number] Acct: [id number] Name: JUNG ABURTO Rep #: [id number] : 1945 79 From: Petros Valdez MD [...] Minaya Date Dictated: 03/09/25802 Date Transcribed: 03/09/25802 Photography Coordinator: CO Signed [facility] Work Phone: Echocardiogram study reportO rdered By: Petros Valdez on 03-09-[address] [facility] [address] [place] [address] Echo Complete 03/08/2538 MR#: [id number] Acct: [id number] Name: JUNG ABURTO Rep #:[id number] : 1945 79 From: Petros Landon Attending Dr: Dr. Petros Valdez MD S tatus: REG CLI Ordering Dr: Petros Valdez MD Date: Location: [facility] Sex: M C Admitted: Reason For Study [...] Dr. Francheska Alonzo DO ~ Date Dictated: 03/08/25837 Date Transcribed: 03/09/25 1112 Photography Coordinator: Signed [facility] Work Phone: Stress Reporton 03-09-[address] [facility] [address] [place] [address] MR#: [id number] Acct: [id number] Name: JUNG ABURTO Rep #: [id number] : 1945 79 From: Petros Valdez MD Primary Care: Dr. Francheska Alonzo DO Status: R EG CLI Referring Dr: [...] at a high workload Preserved ejection fraction. 07/01/25 0806 Date Petros Valdez MD CC: Dr. Petros Valdez MD; Dr. Francheska Alonzo DO Date Dictated: 03/09/25802 Date Transcribed: 03/09/25802 Photography Coordinator: CO Signed Normal [facility] Echo Completeon 03-08-2025 Echo Complete [facility] [address] [place] [address] Echo Complete 03/08/25837 MR#: [id number] Acct: [id number] Name: JUNG ABURTO Rep #: [id number] : 1945 79 From: Petros Valdez MD Attending Dr: Dr. Petros Valdez MD Status: REG C Ordering Dr: Petros Valdez MD Date: 03/08/25 Location: [facility] Sex: M C Admitted: Reason For Study [...] Alonzo DO Date Dictated: 03/08/2538 Date Transcribed: 03/09/25 111 Photography Coordinator: Signed Normal [facility] EGD Reporton 03-02-2025 EGD Report [facility] Medical Records Department [address] [place] [address] EGD Report MR#: [id number] Acct: [id number] Name: JUNG ABURTO Rep #: [id number] : 1945 79 From: David Parra DO PCP: Dr. Francheska Alonzo DO [place] [facility] [place] Name[place] Jung Aburto Procedure Date: 03/02/2025 [...] pathology results. Procedure Code(s): --- Professional --- 88623, Esophagogastroduodenosc opy, flexible, transoral; with biopsy, single or multiple CPT copyright 2021 [employer]. All rights reserved. The codes documented in this report are preliminary and upon synthetic department supervisor review may be revised to meet current compliance requirements. David Parra DO 03/02/2025 7:10:43 AM This report has been signed electronically. Number of Addenda: 0 Note Initiated On: 03/02/2025 6:49 AM 03/02/25710 Date David Parra DO Cosignabi Signature: Date (if indicated) CC: Dr. Francheska Alonzo DO; David Parra DO Date Dictated: 03/02/2549 Date Transcribed: Photography Coordinator: RF Signed [facility]25 MR/POSTOP[facility] Medical Records Department [address] [place] [address] Anesthesia Postop Eval I 03/02/25715 MR#: [id number] Acct: [id number] Name: JUNG ABURTO Rep #: [id number] : 1945 79 From: Leo Bloom PCP: Dr. Francheska Alonzo DO Status:REG SDC Y Race: C Location: [place] [address] Anesthesia: Postop Eval I Current Vital Signs [...] Leo Marcano Signature: Date CC: Signed Normal [facility] MR/RLHNHAJE1nl 03-02-2025 MR/POSTOPAN2 [facility] Medical Records Department [address] [place] [address] Anesthesia Postop Eval II 03/02/2548 MR#: [id number] Acct: [id number] Name: JUNG ABURTO Rep #: [id number] : 1945 79 From: Cheyenne Montiel CRNA PCP: Dr. Francheska Alonzo, DO Status:[facility] Y Race: C Location: EN [...] Pain Level: 0 nausea: No Vomiting: No 03/02/25847 Date Cheyenne Montiel CRNA Cosigner Signature: CC: Signed Normal [facility] Surgery Specimen Level Angelito 03-02-2025 Surgery Specimen Level IV Patient Age/Sex Location Account Attending Physician JUNG ABURTO 79/M EN [id number] David Parra DO Specimen: [id number] Received: 03/02/25 Status: AUBREY Davis Num: [id number] Spec Type: EGD BIOPSY Subm Dr: David Parra, HEADER OPERATION: EGD, biopsy PRE-OP DIAGNOSIS: Gastroesophageal reflux disease, Aytes's esophagus TISSUE SUBMITTED: A- Distal esophagus biopsy MICROSCOPIC DIAGNOSIS A. Distal esophagus, biopsy: - Benign squamous mucosa. - Scant columnar mucosa negative for goblet cell metaplasia. MICROSCOPIC DESCRIPTION Slides are reviewed. GROSS DESCRIPTION A. Received in fixative is one container labeled with the patient's name and designated Distal esophagus biopsy. The specimen consists of three irregular fragments of light rick soft tissue that in aggregate measure 0.3 to 0.5 cm. The specimen is totally submitted in one cassette. Gwyn 03/02/2025 CPT:68381 Patient Age/Sex Location Account Attending Physician JUNG ABURTO 79/M EN [id number] David Parra DO Signed (signature on file) Dr. Alexa Vo MD 03/17/25 1425 Normal [facility] Comment on above: Performed By: #### P SUIV ####[facility] [address] [place], [address] MR/PAT.ANEon 02-25-2025 MR/PAT.CALE [facility] Medical Records Department [address] [place] [address] PAT - Anesthesia 02/25/25 1318 MR#: [id number] Acct: [id number] Name: JUNG ABURTO Rep #: [id number] : 1945 79 From: Miguelito Streeter MD PCP: Dr. Francheska Alonzo, DO Status[place] [facility] [place]: C Location: EN Pre-Assessment Diagnosis/Proposed Procedure Planned Operative Procedure(s): egd Anesthesia History Anesthesia History - hand baseball sewer: Anesthesia History - hand baseball sewer Hx Hospitalization No 02/25/25 12:56 Any Problems [...] take am of surgery PONV PONV - hand baseball sewer: PONV - hand baseball sewer Female No 02/25/25 12:56 HX of Motion Sickness No 02/25/25 12:56 HX of N/V After Surgery No 02/25/25 12:56 Non-Smoker Yes 02/25/25 12:56 Duration of Surgery greater No 02/25/25 12:56 than 60 minutes Number of Risk Factors 1 02/25/25 12:56 PONV Score Low Risk 02/25/25 12:56 Height Weight Height Weight: Anesthesia: Height Weight Height 6 ft 05/10/24 10:25 Respiratory Assessment Respiratory Assessment - hand baseball sewer: Respiratory Tract Infection Hx - hand baseball sewer Hx Respiratory Tract Infection No 02/25/25 12:56 STOP Sleep Apnea STOP Sleep Apnea - hand baseball sewer: STOP Sleep Apnea - hand baseball sewer Hx Hypertension Yes: CONTROLLED WITH 02/25/25 12:56 [...] Tobacco Use History Tobacco Use History - hand baseball sewer: Tobacco Use History - hand baseball sewer Tobacco Use Smoking Status Never smoker 02/25/25 12:56 Hx Tobacco Use No 02/25/25 12:56 Years Smoking Packs Smoked per Day Smoking Cessation Date was within the last 15 years Hx Smoking Cessation Date Hx Smoking Cessation Counseling Hematologic Medial History Hematologic Hx - hand baseball sewer: 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 Normal [facility] Cardiology Visit Reporton Cardiology Visit Report [facility] [address] [place] [address] OFFICE VISIT Date of Service: 01/26/25 MR#: [id number] Acct: [id number] Name: JUNG ABURTO Rep #: [id number] : 1945 Provider: Dr. 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 Normal [facility] Absolute lymphocyte countOrd ered By: Francheska Fast on 12-23-2024 Lymphocytes Auto (Unsp spec) [#/Vol] 1.36 10*3/uL 0.83-4.51 [facility] Absolute neutrophil countOrd ered By: Francheska Fast on 12-23-2024 Neutrophils (Bld) [#/Vol] 3.3 10*3/uL 2.0-7.7 [facility] Anion gap in Serum or Plasma Ordered By: Francheska Fast on 12-23-2024 Anion gap [Moles/Vol] 11 mmol/L 5-15 [facility] Automated lymphocyte count a s percentage of total leukocytesOrdered By: Francheska Fast on 12-23-2024 Lymphocytes/100 WBC Auto (Unsp spec) 24.8 % 19-41 [facility] BUN/creatinine ratioOrdered By: Francheska Fast on 12-23-2024 Urea nitrogen/Creatinine [Mass ratio] 22.0 mg/mg High 10-20 [facility] Basophil percentageOrdered B y: Francheska Fast on 12-23-2024 Basophils/100 WBC (Bld) 0.9 % 0-1 [facility] Bilirubin, totalOrdered By: Francheska on 12-23-2024 Bilirubin [Mass/Vol] 0.36 mg/dL 0.00-1.30 [facility] CBC W/Diff, Automatedon 12-08 Absolute Lymph 1.36 X10 3/uL Normal 0.83-4.51 [facility] Comment on above: Performed By: #### L 100.0100, L506.0200, L500.4100, L503.0106, L500.4050, L506.1001 ####[facility] [address] [place], [address] Absolute Neut 3.3 X10 3/uL Normal 2.0-7.7 [facility] Comment on above: Performed By: #### L 100.0100, L506.0200, L500.4100, L503.0106, L500.4050, L506.1001 ####[facility] [address] [place], [address] Basophils/100 WBC (Bld) 0.9 % Normal 0-1 [facility] Comment on above: Performed By: #### L 100.0100, L506.0200, L500.4100, L503.0106, L500.4050, L506.1001 ####[facility] [address] [place], [address] Eosinophils/100 WBC (Bld) 6.6 % High 0-5 [facility] Comment on above: Performed By: #### L 100.0100, L506.0200, L500.4100, L503.0106, L500.4050, L506.1001 ####[facility] [address] [place], [address] Erythrocyte distribution width (RBC) [Ratio] 12.6 % Normal 11.6-14.6 [facility] Comment on above: Performed By: #### L 100.0100, L506.0200, L500.4100, L503.0106, L500.4050, L506.1001 ####[facility] [address] [place], [address] Hematocrit (Bld) [Volume fraction] 42.5 % Normal 40-54 [facility] Comment on above: Performed By: #### L 100.0100, L506.0200, L500.4100, L503.0106, L500.4050, L506.1001 ####[facility] [address] [place], [address] Hemoglobin (Bld) [Mass/Vol] 15.1 g/dL Normal 13.0-16.5 [facility] Comment on above: Performed By: #### L 100.0100, L506.0200, L500.4100, L503.0106, L500.4050, L506.1001 ####[facility] [address] [place], [address] IG% 0.200 Normal 0.0-0.9 [facility] Comment on above: Result Comment: IG% - Immature Granulocytes (promyelocytes, myelocytes and metamyelocytes) > 1% indicates that a LEFT SHIFT is Present. Performed By: #### L 100.0100, L506.0200, L500.4100, L503.0106, L500.4050, L506.1001 ####[facility] [address] [place], [address] Lymphocytes/100 WBC (Bld) 24.8 % Normal 19-41 [facility] Comment on above: Performed By: #### L 100.0100, L506.0200, L500.4100, L503.0106, L500.4050, L506.1001 ####[facility] [address] [place], [address] MCH (RBC) [Entitic mass] 34.3 pg High 27.0-32.0 [facility] Comment on above: Performed By: #### L 100.0100, L506.0200, L500.4100, L503.0106, L500.4050, L506.1001 ####[facility] [address] [place], [address] MCHC (RBC) [Mass/Vol] 35.5 g/dL Normal 32-36 [facility] Comment on above: Performed By: #### L 100.0100, L506.0200, L500.4100, L503.0106, L500.4050, L506.1001 ####[facility] [address] [place], [address] MCV (RBC) [Entitic vol] 96.6 fL High 80-94 [facility] Comment on above: Performed By: #### L 100.0100, L506.0200, L500.4100, L503.0106, L500.4050, L506.1001 ####[facility] [address] [place], [address] Monocytes/100 WBC (Bld) 8.4 % Normal 0-10 [facility] Comment on above: Performed By: #### L 100.0100, L506.0200, L500.4100, L503.0106, L500.4050, L506.1001 ####[facility] [address] [place], [address] Neutrophils/100 WBC (Bld) 59.1 % Normal 47-70 [facility] Comment on above: Performed By: #### L 100.0100, L506.0200, L500.4100, L503.0106, L500.4050, L506.1001 ####[facility] [address] [place], [address] Nucleated RBC (Bld) [#/Vol] 0 10*3/uL Normal 0-5 [facility] Comment on above: Performed By: #### L 100.0100, L506.0200, L500.4100, L503.0106, L500.4050, L506.1001 ####[facility] [address] [place], [address] Platelet mean volume (Bld) [Entitic vol] 11.3 fL Normal 6.2-12.0 [facility] Comment on above: Performed By: #### L 100.0100, L506.0200, L500.4100, L503.0106, L500.4050, L506.1001 ####[facility] [address] [place], [address] Platelets (Bld) [#/Vol] 188 10*3/uL Normal 150-450 [facility] Comment on above: Performed By: #### L 100.0100, L506.0200, L500.4100, L503.0106, L500.4050, L506.1001 ####[facility] [address] [place], [address] RBC (Bld) [#/Vol] 4.40 10*6/uL Low 4.6-6.2 [facility] Comment on above: Performed By: #### L 100.0100, L506.0200, L500.4100, L503.0106, L500.4050, L506.1001 ####[facility] [address] [place], [address] RDW SD 45.0 fl High 35.1-43.9 [facility] Comment on above: Performed By: #### L 100.0100, L506.0200, L500.4100, L503.0106, L500.4050, L506.1001 ####[facility] [address] [place], [place], [address] WBC (Bld) [#/Vol] 5.5 10*3/uL Normal 4.4-11.0 [facility] Comment on above: Performed By: #### L 100.0100, L506.0200, L500.4100, L503.0106, L500.4050, L506.1001 ####[facility] [address] [place], [place], [address] Calculated very low density lipoprotein (VLDL) cholesterol measurementOrdered By: Francheska Fast on 12-23-2024 Calculated very low density lipoprotein (VLDL) cholesterol measurement 19 mg/dL 5-40 [facility] VLDL Cholesterol 19 mg/dL 5-40 [facility] Carbon dioxide, total [Moles /volume] in Central venous bloodOrdered By: Francheska Fast on 12-23-2024 CO2 [Moles/Vol] 22.7 mmol/L 21.0-32.0 [facility] Chloride assayOrdered By: De bra Fast on 12-23-2024 Chloride [Moles/Vol] 105 mmol/L 98-108 [facility] Comprehensive Metabolic Prof ilon 12-23-2024 Albumin [Mass/Vol] 4.4 g/dL Normal 3.4-4.8 [facility] Comment on above: Performed By: #### L 100.0100, L506.0200, L500.4100, L503.0106, L500.4050, L506.1001 ####[facility] [address] [place], [address] Albumin/Globulin [Mass ratio] 1.7 {ratio} Normal 0.9-2.4 [facility] Comment on above: Performed By: #### L 100.0100, L506.0200, L500.4100, L503.0106, L500.4050, L506.1001 ####[facility] [address] [place], [address] ALK PHOS 82 U/L Normal 40-129 [facility] Comment on above: Performed By: #### L 100.0100, L506.0200, L500.4100, L503.0106, L500.4050, L506.1001 ####[facility] [address] [place], [address] ALT [Catalytic activity/Vol] 19 U/L Normal <=46 [facility] Comment on above: Performed By: #### L 100.0100, L506.0200, L500.4100, L503.0106, L500.4050, L506.1001 ####[facility] [address] [place], [address] AST [Catalytic activity/Vol] 25 U/L Normal <=37 [facility] Comment on above: Performed By: #### L 100.0100, L506.0200, L500.4100, L503.0106, L500.4050, L506.1001 ####[facility] [address] [place], [address] Bilirubin [Mass/Vol] 0.36 mg/dL Normal 0.00-1.30 [facility] Comment on above: Performed By: #### L 100.0100, L506.0200, L500.4100, L503.0106, L500.4050, L506.1001 ####[facility] [address] [place], [address] BUN/CRE 22.0 RATIO High 10-20 [facility] Comment on above: Performed By: #### L 100.0100, L506.0200, L500.4100, L503.0106, L500.4050, L506.1001 ####[facility] [address] [place], [address] Calcium [Mass/Vol] 9.5 mg/dL Normal 7.6-11.0 [facility] Comment on above: Performed By: #### L 100.0100, L506.0200, L500.4100, L503.0106, L500.4050, L506.1001 ####[facility] [address] [place], [address] Chloride [Moles/Vol] 105 mmol/L Normal 98-108 [facility] Comment on above: Performed By: #### L 100.0100, L506.0200, L500.4100, L503.0106, L500.4050, L506.1001 ####[facility] [address] [place], [address] CO2 [Moles/Vol] 22.7 mmol/L Normal 21.0-32.0 [facility] Comment on above: Performed By: #### L 100.0100, L506.0200, L500.4100, L503.0106, L500.4050, L506.1001 ####[facility] [address] [place], [address] Creatinine [Mass/Vol] 0.93 mg/dL Normal 0.70-1.20 [facility] Comment on above: Performed By: #### L 100.0100, L506.0200, L500.4100, L503.0106, L500.4050, L506.1001 ####[facility] [address] [place], [address] GAP 11 Normal 5-15 [facility] Comment on above: Performed By: #### L 100.0100, L506.0200, L500.4100, L503.0106, L500.4050, L506.1001 ####[facility] [address] [place], [address] GFR/1.73 sq M.predicted among non-blacks MDRD (S/P/Bld) [Vol rate/Area] 84 mL/min/{1.73_m2} Normal >60 [facility] Comment on above: Result Comment: mL/m in/1.73m2 CKD-EPI Creatinine Equation (2020) Performed By: #### L 100.0100, L506.0200, L500.4100, L503.0106, L500.4050, L506.1001 ####[facility] [address] [place], [address] Globulin (S) [Mass/Vol] 2.6 g/dL Normal 2.2-4.2 [facility] Comment on above: Performed By: #### L 100.0100, L506.0200, L500.4100, L503.0106, L500.4050, L506.1001 ####[facility] [address] [place], [address] Glucose [Mass/Vol] 83 mg/dL Normal 70-99 [facility] Comment on above: Performed By: #### L 100.0100, L506.0200, L500.4100, L503.0106, L500.4050, L506.1001 ####[facility] [address] [place], [address] Potassium [Moles/Vol] 4.6 mmol/L Normal 3.3-5.1 [facility] Comment on above: Result Comment: Hemo lysis present, Results??could be affected. ?? Performed By: #### L 100.0100, L506.0200, L500.4100, L503.0106, L500.4050, L506.1001 ####[facility] [address] [place], [address] Sodium [Moles/Vol] 139 mmol/L Normal 133-145 [facility] Comment on above: Performed By: #### L 100.0100, L506.0200, L500.4100, L503.0106, L500.4050, L506.1001 ####[facility] [address] [place], [address] T PROT 7.0 g/dL Normal 5.9-8.4 [facility] Comment on above: Performed By: #### L 100.0100, L506.0200, L500.4100, L503.0106, L500.4050, L506.1001 ####[facility] [address] [place], [address] Urea nitrogen [Mass/Vol] 21 mg/dL High 4-19 [facility] Comment on above: Performed By: #### L 100.0100, L506.0200, L500.4100, L503.0106, L500.4050, L506.1001 ####[facility] [id number] [place], [address] Eosinophil percentageOrdered By: Fracnheska Fast on 12-23-2024 Eosinophils/100 WBC (Bld) 6.6 % High 0-5 [facility] Erythrocyte distribution wid th (RBC) [Ratio]Ordered By: Francheska Fast on 12-23-2024 Erythrocyte distribution width (RBC) [Entitic vol] 45.0 fL High 35.1-43.9 [facility] Erythrocyte distribution wid th ratioOrdered By: Francheska Fast on 12-23-2024 Erythrocyte distribution width (RBC) [Ratio] 12.6 % 11.6-14.6 [facility] Erythrocyte distribution wid th standard deviationOrdered By: Francheska Fast on 12-23-2024 Erythrocyte distribution width (RBC) [Ratio] 45.0 fl High 35.1-43.9 [facility] Folate [Mass/Vol]Ordered By: Francheska Fast on 12-23-2024 Serum Folate 39.30 ng/mL High 4.60-34.80 [facility] Comment on above: Hemolysis, Results w ill be affected, Requires Recollection. Folate [Mass/volume] in Seru m or PlasmaOrdered By: Francheska Fast on 12-23-2024 Folate [Mass/Vol] 39.30 ng/mL High 4.60-34.80 [facility] Comment on above: Hemolysis, Results w ill be affected, Requires Recollection. Folates,Serum (Folic Acid)on 12-23-2024 FOLATES,SERUM 39.30 ng/mL High 4.60-34.80 [facility] Comment on above: Order Comment: N Result Comment: Hemo lysis, Results will be affected, Requires Recollection. Performed By: #### L 100.0100, L506.0200, L500.4100, L503.0106, L500.4050, L506.1001 ####[facility] [address] [place], [address] GFR/1.73 sq M.predicted shyla g non-blacks MDRD (S/P/Bld) [Vol rate/Area]Ordered By: Francheska Fast on 12-23-2024 Estimated GFR (MDRD) Non-Af Amer 84 >60 [facility] Comment on above: mL/min/1.73m2 CKD-EP I Creatinine Equation (2020) Glomerular filtration rate ( GFR) estimation/1.73 sq m using serum, plasma, or whole bOrdered By: Francheska Fast on 12-23-2024 GFR/1.73 sq M.predicted among non-blacks MDRD (S/P/Bld) [Vol rate/Area] 84 mL/min/{1.73_m2} >60 [facility] Comment on above: mL/min/1.73m2 CKD-EP I Creatinine Equation (2020) Hematocrit Auto (Bld) [Volum e fraction]Ordered By: Francheska Fast on 12-23-2024 Hematocrit (Bld) [Volume fraction] 42.5 % 40-54 [facility] Hemoglobin measurementOrdere d By: Francheska on 12-23-2024 Hemoglobin (Bld) [Mass/Vol] 15.1 g/dL 13.0-16.5 [facility] Immature granulocytes/100 WB C Auto (Bld)Ordered By: Francheska on 12-23-2024 Immature granulocytes/100 WBC (Bld) 0.200 % 0.0-0.9 [facility] Comment on above: IG% - Immature Granu locytes (promyelocytes, myelocytes and metamyelocytes) > 1% indicates that a LEFT SHIFT is Present. LDL calc ser/plasOrdered By: Francheskaraz Alonzo on 12-23-2024 Cholesterol in LDL [Mass/Vol] 100 mg/dL [facility] Comment on above: Wafkmnhokv=690-781 m g/dL & Higher Cchs=850 mg/dL or greater LDL Cholesterol, Calculated 100 mg/dL [facility] Comment on above: Hqvyfmcbcf=830-962 m g/dL & Higher Xmfo=949 mg/dL or greater Laboratory - Chemistry and C hemistry - challengeOrdered By: Francheskaraz Alonzo on 12-23-2024 AST [Catalytic activity/Vol] 25 U/L <38 [facility] Lipid Profileon 12-23-2024 CHOL:HDL 2.52 Normal [facility] Comment on above: Performed By: #### L 100.0100, L506.0200, L500.4100, L503.0106, L500.4050, L506.1001 ####[facility] [address] [place], [place], [id number] Cholesterol [Mass/Vol] 198 mg/dL Normal <=200 [facility] Comment on above: Result Comment: Chol esterol level, Desirable <200 mg/dL Borderline high cholesterol 200-239 mg/dL High cholesterol >=240 mg/dL Recommendations of the NCEP Adult Treatment Panel for the following risk-cutoff thresholds for the [place] population. Performed By: #### L 100.0100, L506.0200, L500.4100, L503.0106, L500.4050, L506.1001 ####[facility] [address] [place], [address] Cholesterol in HDL [Mass/Vol] 79 mg/dL Normal [facility] Comment on above: Result Comment: Leny onal Cholesterol Education Program (NCEP) guidelines: <40 mg/dL: Low HDL-cholesterol (major risk factor for CHD) >= 60 mg/dL: High HDL-cholesterol (negative risk factor for CHD) HDL-cholesterol is affected by a number of factors, e.g. smoking, exercise, hormones, sex and age. Performed By: #### L 100.0100, L506.0200, L500.4100, L503.0106, L500.4050, L506.1001 ####[facility] [address] [place], [address] Cholesterol in LDL [Mass/Vol] 100 mg/dL Normal [facility] Comment on above: Result Comment: Bord kylddv=978-827 mg/dL Higher Nnrw=387 mg/dL or greater Performed By: #### L 100.0100, L506.0200, L500.4100, L503.0106, L500.4050, L506.1001 ####[facility] [address] [place], [address] Cholesterol in VLDL [Mass/Vol] 19 mg/dL Normal 5-40 [facility] Comment on above: Performed By: #### L 100.0100, L506.0200, L500.4100, L503.0106, L500.4050, L506.1001 ####[facility] [address] [place], [address] Triglyceride [Mass/Vol] 97 mg/dL Normal [facility] Comment on above: Result Comment: The drugs N-Acetylcysteine and Metamizole may falsely depress this assay. Normal range: <150 mg/dL Borderline High: 150-199 mg/dL High: 200-499 mg/dL Very High: >500 mg/dL Performed By: #### L 100.0100, L506.0200, L500.4100, L503.0106, L500.4050, L506.1001 ####[facility] [address] [place], [address] Lymphocytes Auto (Unsp spec) [#/Vol]Ordered By: Francheska Fast on 12-23-2024 Lymphocytes (Bld) [#/Vol] 1.36 10*3/uL 0.83-4.51 [facility] Lymphocytes/100 WBC Auto (Un sp spec)Ordered By: Francheska Fast on 12-23-2024 Lymphocytes/100 WBC (Bld) 24.8 % 19-41 [facility] MCV (mean corpuscular volume ) determinationOrdered By: Francheska Fast on 12-23-2024 MCV (RBC) [Entitic vol] 96.6 fL High 80-94 [facility] Mean corpuscular hemoglobin (MCH) determinationOrdered By: Francheska Fast on 12-23-2024 MCH (RBC) [Entitic mass] 34.3 pg High 27.0-32.0 [facility] Mean corpuscular hemoglobin concentration (MCHC) determinationOrdered By: Francheska Fast on 12-23-2024 MCHC (RBC) [Mass/Vol] 35.5 g/dL 32-36 [facility] Mean platelet volume determi nationOrdered By: Francheska Fast on 12-23-2024 Platelet mean volume (Bld) [Entitic vol] 11.3 fL 6.2-12.0 [facility] Monocyte percentageOrdered B y: Francheska Fast on 12-23-2024 Monocytes/100 WBC (Bld) 8.4 % 0-10 [facility] Neutrophil percentageOrdered By: Francheska Fast on 12-23-2024 Neutrophils/100 WBC (Bld) 59.1 % 47-70 [facility] Nucleated red blood cell per centageOrdered By: Francheska Fast on 12-23-2024 Nucleated RBC/100 WBC (Bld) [Ratio] 0 % 0-5 [facility] Platelet countOrdered By: De chrissy Fast on 12-23-2024 Platelets (Bld) [#/Vol] 188 10*3/uL 150-450 [facility] Potassium (Unsp spec) [Mass/ Vol]Ordered By: 12-23-2024 Potassium [Moles/Vol] 4.6 mmol/L 3.3-5.1 [facility] Comment on above: Hemolysis present, R esults could be affected. Potassium measurement (mass/ volume)Ordered By: on 12-23-2024 Potassium (Unsp spec) [Mass/Vol] 4.6 mmol/L 3.3-5.1 [facility] Comment on above: Hemolysis present, R esults could be affected. RBC Auto (Bld) [#/Vol]Ordere d By: on 12-23-2024 RBC (Bld) [#/Vol] 4.40 10*6/uL Low 4.6-6.2 [facility] Screening total cholesterol/ high density lipoprotein (HDL) cholesterol ratioOrdered By: 12-23-2024 Cholesterol.total/Cho lesterol in HDL [Mass ratio] 2.52 {ratio} [facility] Serum creatinine measurement (mass/volume)Ordered By: 12-23-2024 Creatinine [Mass/Vol] 0.93 mg/dL 0.70-1.20 [facility] Serum globulin measurementOr dered By: 12-23-2024 Globulin (S) [Mass/Vol] 2.6 g/dL 2.2-4.2 [facility] Serum glucose measurement (m ass/volume)Ordered By: 12-23-2024 Glucose [Mass/Vol] 83 mg/dL 70-99 [facility] Serum or plasma alanine nichole otransferase (ALT) measurementOrdered By: 12-23-2024 ALT [Catalytic activity/Vol] 19 U/L <47 [facility] Serum or plasma albumin pauline urement (mass/volume)Ordered By: 12-23-2024 Albumin [Mass/Vol] 4.4 g/dL 3.4-4.8 [facility] Serum or plasma albumin/glob ulin mass ratioOrdered By: 12-23-2024 Albumin/Globulin [Mass ratio] 1.7 {ratio} 0.9-2.4 [facility] Serum or plasma alkaline fabby sphatase measurementOrdered By: on 12-23-2024 ALP [Catalytic activity/Vol] 82 U/L 40-129 [facility] Serum or plasma calcium pauline urement (mass/volume)Ordered By: on 12-23-2024 Calcium [Mass/Vol] 9.5 mg/dL 7.6-11.0 [facility] Serum or plasma cholesterol in HDL measurement (mass/volume)Ordered By: on 12-23-2024 Cholesterol in HDL [Mass/Vol] 79 mg/dL >40 [facility] Comment on above: National Cholesterol Education Program (NCEP) guidelines:<40 mg/dL: Low HDL-cholesterol (major risk factor for CHD)>= 60 mg/dL: High HDL-cholesterol (negative risk factor for CHD)HDL-cholesterol is affected by a number of factors, e.g. smoking, exercise, hormones, sex and age. Serum or plasma cholesterol measurement (mass/volume)Ordered By: on 12-23-2024 Cholesterol [Mass/Vol] 198 mg/dL <201 [facility] Comment on above: Cholesterol level, D esirable <200 mg/dLBorderline high cholesterol 200-239 mg/dLHigh cholesterol >=240 mg/dLRecommendations of the NCEP Adult Treatment Panel for the following risk-cutoff thresholds for the [place] population. Serum or plasma urea nitroge n measurement (mass/volume)Ordered By: on 12-23-2024 Urea nitrogen [Mass/Vol] 21 mg/dL High 4-19 [facility] Sodium levelOrdered By: a on 12-23-2024 Sodium [Moles/Vol] 139 mmol/L 133-145 [facility] Total proteinOrdered By: Faby ra on 12-23-2024 Protein [Mass/Vol] 7.0 g/dL 5.9-8.4 [facility] Triglycerides measurementOrd ered By: on 12-23-2024 Triglyceride [Mass/Vol] 97 mg/dL <199 [facility] Comment on above: The drugs N-Acetylcy steine and Metamizole may falsely depress this assay. Normal range: <150 mg/dLBorderline High: 150-199 mg/dLHigh: 200-499 mg/dLVery High: >500 mg/dL Vitamin B12on 12-23-2024 Cobalamin (Vitamin B12) [Mass/Vol] 3130 pg/mL High 180-914 [facility] Comment on above: Performed By: #### L 100.0100, L506.0200, L500.4100, L503.0106, L500.4050, L506.1001 ####[facility] [address] [place], [place], [id number] Vitamin B12 ser/plasOrdered By: Francheska Fast on 12-23-2024 Cobalamin (Vitamin B12) [Mass/Vol] 3130 pg/mL High 180-914 [facility] Vitamin D, 25-hydroxyOrdered By: Francheska Fast on 12-23-2024 Vitamin D 25-Hydroxy 99.4 ng/mL 30-100 [facility] Comment on above: Vitamin D StatusDefi ciency: <20 ng/mL (50nmol/L)Insufficiency: 20-30 ng/mL (50-75 nmol/L)Sufficiency: 30-100 ng/mL (75-250 nmol/L)Toxicity: >100 ng/mL (>250 nmol/L) Vitamin D,25 Hydroxyon 12-23 Vitamin D 25-OH 99.4 ng/mL Normal 30-100 [facility] Comment on above: Result Comment: Lore min D Status Deficiency: <20 ng/mL (50nmol/L) Insufficiency: 20-30 ng/mL (50-75 nmol/L) Sufficiency: 30-100 ng/mL (75-250 nmol/L) Toxicity: >100 ng/mL (>250 nmol/L) Performed By: #### L 100.0100, L506.0200, L500.4100, L503.0106, L500.4050, L506.1001 ####[facility] [address] [place], [place], [id number] White blood cell (WBC) count Ordered By: Francheska Fast on 12-23-2024 WBC (Bld) [#/Vol] 5.5 10*3/uL 4.4-11.0 [facility] Gastroenterology Visit Repor ton 12-17-2024 Gastroenterology Visit Report [facility] Gastroenterology [address] [place] [address] OFFICE VISIT Date of Service: 12/17/24 MR#: [id number] Acct: [id number] Name: JUNG ABURTO Rep #: [id number] : 1945 Provider: David Parra DO Age/Sex: 79/M Location: [facility] [place] Status: Signed Intake Vital Signs 05/10/24 10:25 [...] 12/17/24 History mg-1,916 mg-1,000 mg efferves tab ([place] Original) sulfamethoxazole 800 1 tab PO DAILY [...] any questions or concerns at this time. [facility] Medical History Normal stress echocardiogram Gastritis [...] the first portion of the duodenum. OV 7.09.01 pt reports that he is feeling well [...] bloating, ch (more content not included)... Normal [facility] Gastroenterology Visit Repor ton 10-01-2024 Gastroenterology Visit Report [facility] Gastroenterology [address] [place] [address] OFFICE VISIT Date of Service: 10/01/24 MR#: [id number] Acct: [id number] Name: JUNG ABURTO Rep #: [id number] : 1945 Provider: David Parra DO Age/Sex: 79/M Location: [facility] [place] Status: Signed Intake Vital Signs 05/10/24 [...] 10/01/24 History mg-1,916 mg-1,000 mg efferves tab ([place] Original) sulfamethoxazole 800 1 tab PO DAILY [...] Tang/Lymp Hematologic/Lymphatic (more content not included)... Normal [facility] CBC W/Diff, Automatedon 10-2 Absolute Lymph 1.27 X10 3/uL Normal 0.83-4.51 [facility] Comment on above: Performed By: #### L 500.4050, L506.1000, L100.0100, L500.4100 #### [facility] [address] [place], [address] Absolute Neut 4.2 X10 3/uL Normal 2.0-7.7 [facility] Comment on above: Performed By: #### L 500.4050, L506.1000, L100.0100, L500.4100 #### [facility] [address] [place], [address] Basophils/100 WBC (Bld) 0.8 % Normal 0-1 [facility] Comment on above: Performed By: #### L 500.4050, L506.1000, L100.0100, L500.4100 #### [facility] [address] [place], [address] Eosinophils/100 WBC (Bld) 4.9 % Normal 0-5 [facility] Comment on above: Performed By: #### L 500.4050, L506.1000, L100.0100, L500.4100 #### [facility] [address] [place], [address] Erythrocyte distribution width (RBC) [Ratio] 12.8 % Normal 11.6-14.6 [facility] Comment on above: Performed By: #### L 500.4050, L506.1000, L100.0100, L500.4100 #### [facility] [address] [place], [address] Hematocrit (Bld) [Volume fraction] 43.9 % Normal 40-54 [facility] Comment on above: Performed By: #### L 500.4050, L506.1000, L100.0100, L500.4100 #### [facility] [address] [place], [address] Hemoglobin (Bld) [Mass/Vol] 15.1 g/dL Normal 13.0-16.5 [facility] Comment on above: Performed By: #### L 500.4050, L506.1000, L100.0100, L500.4100 #### [facility] [address] [place], [address] IG% 0.200 Normal 0.0-0.9 [facility] Comment on above: Result Comment: IG% - Immature Granulocytes (promyelocytes, myelocytes and metamyelocytes) > 1% indicates that a LEFT SHIFT is Present. Performed By: #### L 500.4050, L506.1000, L100.0100, L500.4100 #### [facility] [address] [place], [address] Lymphocytes/100 WBC (Bld) 20.1 % Normal 19-41 [facility] Comment on above: Performed By: #### L 500.4050, L506.1000, L100.0100, L500.4100 #### [facility] [address] [place], [address] MCH (RBC) [Entitic mass] 33.6 pg High 27.0-32.0 [facility] Comment on above: Performed By: #### L 500.4050, L506.1000, L100.0100, L500.4100 #### [facility] [address] [place], [address] MCHC (RBC) [Mass/Vol] 34.4 g/dL Normal 32-36 [facility] Comment on above: Performed By: #### L 500.4050, L506.1000, L100.0100, L500.4100 #### [facility] [address] [place], [address] MCV (RBC) [Entitic vol] 97.6 fL High 80-94 [facility] Comment on above: Performed By: #### L 500.4050, L506.1000, L100.0100, L500.4100 #### [facility] [address] [place], [address] Monocytes/100 WBC (Bld) 7.8 % Normal 0-10 [facility] Comment on above: Performed By: #### L 500.4050, L506.1000, L100.0100, L500.4100 #### [facility] [address] [place], [address] Neutrophils/100 WBC (Bld) 66.2 % Normal 47-70 [facility] Comment on above: Performed By: #### L 500.4050, L506.1000, L100.0100, L500.4100 #### [facility] [address] [place], [address] Nucleated RBC (Bld) [#/Vol] 0 10*3/uL Normal 0-5 [facility] Comment on above: Performed By: #### L 500.4050, L506.1000, L100.0100, L500.4100 #### [facility] [address] [place], [address] Platelet mean volume (Bld) [Entitic vol] 10.8 fL Normal 6.2-12.0 [facility] Comment on above: Performed By: #### L 500.4050, L506.1000, L100.0100, L500.4100 #### [facility] [address] [place], [address] Platelets (Bld) [#/Vol] 205 10*3/uL Normal 150-450 [facility] Comment on above: Performed By: #### L 500.4050, L506.1000, L100.0100, L500.4100 #### [facility] [address] [place], [address] RBC (Bld) [#/Vol] 4.50 10*6/uL Low 4.6-6.2 [facility] Comment on above: Performed By: #### L 500.4050, L506.1000, L100.0100, L500.4100 #### [facility] [address] [place], [address] RDW SD 45.9 fl High 35.1-43.9 [facility] Comment on above: Performed By: #### L 500.4050, L506.1000, L100.0100, L500.4100 #### [facility] [address] [place], [address] WBC (Bld) [#/Vol] 6.3 10*3/uL Normal 4.4-11.0 [facility] Comment on above: Performed By: #### L 500.4050, L506.1000, L100.0100, L500.4100 #### [facility] [address] [place], [address] Comprehensive Metabolic [facility] 07-02-2024 Albumin [Mass/Vol] 3.9 g/dL Normal 3.2-5.0 [facility] Comment on above: Performed By: #### L 500.4050, L506.1000, L100.0100, L500.4100 #### [facility] [address] [place], [address] Albumin/Globulin [Mass ratio] 1.2 {ratio} Normal 0.9-2.4 [facility] Comment on above: Performed By: #### L 500.4050, L506.1000, L100.0100, L500.4100 #### [facility] [address] [place], [address] ALK P 75 U/L Normal 45-117 [facility] Comment on above: Performed By: #### L 500.4050, L506.1000, L100.0100, L500.4100 #### [facility] [address] [place], [address] ALT [Catalytic activity/Vol] 23 U/L Normal 16-61 [facility] Comment on above: Performed By: #### L 500.4050, L506.1000, L100.0100, L500.4100 #### [facility] [address] [place], [address] AST [Catalytic activity/Vol] 20 U/L Normal 15-37 [facility] Comment on above: Performed By: #### L 500.4050, L506.1000, L100.0100, L500.4100 #### [facility] [address] [place], [address] Bilirubin [Mass/Vol] 0.50 mg/dL Normal 0.20-1.00 [facility] Comment on above: Result Comment: For patients on eltrombopag therapy, use of Dimension [place] TBIL is not recommended. Performed By: #### L 500.4050, L506.1000, L100.0100, L500.4100 #### [facility] [address] [place], [address] BUN/CRE 29.8 RATIO High 10-20 [facility] Comment on above: Performed By: #### L 500.4050, L506.1000, L100.0100, L500.4100 #### [facility] [address] [place], [address] CA,Total 9.3 mg/dL Normal 8.5-10.1 [facility] Comment on above: Performed By: #### L 500.4050, L506.1000, L100.0100, L500.4100 #### [facility] [address] [place], [address] Chloride [Moles/Vol] 107 mmol/L Normal 98-107 [facility] Comment on above: Performed By: #### L 500.4050, L506.1000, L100.0100, L500.4100 #### [facility] [address] [place], [address] CO2 [Moles/Vol] 27.0 mmol/L Normal 21.0-32.0 [facility] Comment on above: Performed By: #### L 500.4050, L506.1000, L100.0100, L500.4100 #### [facility] [address] [place], [address] Creatinine [Mass/Vol] 0.84 mg/dL Normal 0.70-1.30 [facility] Comment on above: Result Comment: The validity of the calculated GFR GFRAA in patients over 70 years has not been determined. Clinical correlation is essential. Performed By: #### L 500.4050, L506.1000, L100.0100, L500.4100 #### [facility] [address] [place], [address] EST GFR - AA 113 mL/min Normal >60 [facility] Comment on above: Result Comment: Afri can [place] GFR Calc Performed By: #### L 500.4050, L506.1000, L100.0100, L500.4100 #### [facility] [address] [place], [address] GAP 5 Normal 5-15 [facility] Comment on above: Performed By: #### L 500.4050, L506.1000, L100.0100, L500.4100 #### [facility] [address] [place], [address] GFR/1.73 sq M.predicted among non-blacks MDRD (S/P/Bld) [Vol rate/Area] 94 mL/min/{1.73_m2} Normal >60 [facility] Comment on above: Result Comment: Non- GFR Calc Performed By: #### L 500.4050, L506.1000, L100.0100, L500.4100 #### [facility] [address] [place], [address] Globulin (S) [Mass/Vol] 3.2 g/dL Normal 2.2-4.2 [facility] Comment on above: Performed By: #### L 500.4050, L506.1000, L100.0100, L500.4100 #### [facility] [address] [place], [address] Glucose [Mass/Vol] 89 mg/dL Normal 74-106 [facility] Comment on above: Performed By: #### L 500.4050, L506.1000, L100.0100, L500.4100 #### [facility] [address] [place], [address] Potassium [Moles/Vol] 4.2 mmol/L Normal 3.5-5.1 [facility] Comment on above: Performed By: #### L 500.4050, L506.1000, L100.0100, L500.4100 #### [facility] [address] [place], [address] Sodium [Moles/Vol] 139 mmol/L Normal 136-145 [facility] Comment on above: Performed By: #### L 500.4050, L506.1000, L100.0100, L500.4100 #### [facility] [address] [place], [address] T PROT 7.1 g/dL Normal 6.4-8.2 [facility] Comment on above: Performed By: #### L 500.4050, L506.1000, L100.0100, L500.4100 #### [facility] [address] [place], [address] Urea nitrogen [Mass/Vol] 25 mg/dL High 7-18 [facility] Comment on above: Performed By: #### L 500.4050, L506.1000, L100.0100, L500.4100 #### [facility] [address] [place], [address] Lipid Profileon 07-02-2024 Cholesterol [Mass/Vol] 201 mg/dL High 200 [facility] Comment on above: Result Comment: <200 mg/dL Desirable 200-240 mg/dL Borderline >240 mg/dL High Risk Performed By: #### L 500.4050, L506.1000, L100.0100, L500.4100 ####[facility] [address] [place], [address] Cholesterol in HDL [Mass/Vol] 85 mg/dL Normal [facility] Comment on above: Result Comment: The drugs N-Acetylcysteine and Metamizole may falsely depress this assay. Reference Range HDL <40 mg/dL Low HDL Cholesterol HDL >or= 60 mg/dL High HDL Cholesterol Performed By: #### L 500.4050, L506.1000, L100.0100, L500.4100 ####[facility] [address] [place], [address] Cholesterol in LDL [Mass/Vol] 103 mg/dL Normal 0-130 [facility] Comment on above: Performed By: #### L 500.4050, L506.1000, L100.0100, L500.4100 ####[facility] [address] [place], [address] Cholesterol in VLDL [Mass/Vol] 13 mg/dL Normal 5-40 [facility] Comment on above: Performed By: #### L 500.4050, L506.1000, L100.0100, L500.4100 ####[facility] [address] [place], [address] Triglyceride [Mass/Vol] 63 mg/dL Normal [facility] Comment on above: Result Comment: The drugs N-Acetylcysteine and Metamizole may falsely depress this assay. Serum Triglycerides Reference Interval Normal <150 mg/dL Borderline high 150 - 199 mg/dL High 200 - 499 mg/dL Very High > or = 500 mg/dL Performed By: #### L 500.4050, L506.1000, L100.0100, L500.4100 ####[facility] [address] [place], [address] Vitamin D,25 Hydroxyon 07-02 Vitamin D 25-OH 38.5 ng/mL Normal [facility] Comment on above: Result Comment: Lore min D 25(OH) Status Range Deficiency <20 ng/mL (50nmol/L) Insufficiency 20 - 30 ng/mL (50 - 75 nmol/L) Sufficiency 30 - 100 ng/mL (75 - 250 nmol/L) Toxicity >100 ng/mL (>250 nmol/L) Performed By: #### L 500.4050, L506.1000, L100.0100, L500.4100 ####[facility] [address] [place], [address] CRPon 06-22-2024 C-REACTIVE PROT < 2.90 Normal 0.0-3.0 [facility] Comment on above: Result Comment: C-Re active Protein (CRP) provides useful information for the diagnosis, therapy and monitoring of inflammatory processes and associated diseases. For the evaluation of Relative Risk for Cardiovascular Disease, a High Sensitivity CRP (HSCRP) should be ordered. Performed By: #### L 501.6710, L101.9900 ####[facility] [address] [place], [address] Erythrocyte Sed Rateon 06-22 SED RATE 2 mm/hr Normal 0-20 [facility] Comment on above: Performed By: #### L 501.6710, L101.9900 ####[facility] [address] [place], [address] Absolute lymphocyte countOrd ered By: Francheska Alonzo on 12-25-2023 Lymphocytes Auto (Unsp spec) [#/Vol] 1.33 10*3/uL 0.83-4.51 [facility] Automated lymphocyte count a s percentage of total leukocytesOrdered By: Francheska Alonzo on 12-25-2023 Lymphocytes/100 WBC Auto (Unsp spec) 22.1 % 19-41 [facility] Basophil percentageOrdered B y: Francheska Fast on 12-25-2023 Basophils/100 WBC (Bld) 1.2 % 0-1 [facility] Bilirubin [Mass/Vol] 0.30 mg/dL 0.20-1.00 [facility] Comment on above: For patients on eltr ombopag therapy, use of Dimension [place] TBIL is not recommended. Chloride [Moles/Vol] 106 mmol/L 98-107 [facility] Cholesterol [Mass/Vol] 198 mg/dL <200 [facility] Comment on above: <200 mg/dL Desirable 200-240 mg/dL Borderline >240 mg/dL High Risk Eosinophils/100 WBC (Bld) 11.1 % 0-5 [facility] Glucose [Mass/Vol] 91 mg/dL 74-106 [facility] Hemoglobin (Bld) [Mass/Vol] 15.2 g/dL 13.0-16.5 [facility] Monocytes/100 WBC (Bld) 8.1 % 0-10 [facility] Neutrophils (Bld) [#/Vol] 3.4 10*3/uL 2.0-7.7 [facility] Neutrophils/100 WBC (Bld) 57.0 % 47-70 [facility] Potassium [Moles/Vol] 4.6 mmol/L 3.5-5.1 [facility] Protein [Mass/Vol] 7.2 g/dL 6.4-8.2 [facility] Sodium [Moles/Vol] 137 mmol/L 136-145 [facility] Triglyceride [Mass/Vol] 75 mg/dL <199 [facility] Comment on above: The drugs N-Acetylcy steine and Metamizole may falsely depress this assay.Serum Triglycerides Reference Interval Normal <150 mg/dL Borderline high 150 - 199 mg/dL High 200 - 499 mg/dL Very High > or = 500 mg/dL WBC (Bld) [#/Vol] 6.0 10*3/uL 4.4-11.0 [facility] Culture, urineOrdered By: Thorne Fast on 12-25-2023 Bacteria identified Cx Nom (U) Culture exhibits no growth. [facility] Determination of erythrocyte mean corpuscular volume (MCV)Ordered By: [facility] on 12-25-2023 MCV (RBC) [Entitic vol] 98.4 fL 80-94 [facility] Erythrocyte distribution wid th ratioOrdered By: [facility] on 12-25-2023 Erythrocyte distribution width (RBC) [Ratio] 12.5 % 11.6-14.6 [facility] Erythrocyte distribution wid th standard deviationOrdered By: [facility] on 12-25-2023 Erythrocyte distribution width (RBC) [Entitic vol] 45.2 fL 35.1-43.9 [facility] Hematocrit Auto (Bld) [Volum e fraction]Ordered By: [facility] on 12-25-2023 Hematocrit (Bld) [Volume fraction] 43.7 % 40-54 [facility] Immature granulocytes/100 WB C Auto (Bld)Ordered By: [facility] on 12-25-2023 Immature granulocytes/100 WBC (Bld) 0.500 % 0.0-0.9 [facility] Comment on above: IG% - Immature Granu locytes (promyelocytes, myelocytes and metamyelocytes) > 1% indicates that a LEFT SHIFT is Present. Laboratory - Chemistry and C hemistry - challengeOrdered By: [facility] on 12-25-2023 Albumin/Globulin [Mass ratio] 1.2 {ratio} 0.9-2.4 [facility] ALP [Catalytic activity/Vol] 75 U/L 45-117 [facility] ALT [Catalytic activity/Vol] 25 U/L 16-61 [facility] Cholesterol in HDL [Mass/Vol] 75 mg/dL >40 [facility] Comment on above: The drugs N-Acetylcy steine and Metamizole may falsely depress this assay. Reference Range HDL <40 mg/dL Low HDL Cholesterol HDL >or= 60 mg/dL High HDL Cholesterol Cholesterol in LDL [Mass/Vol] 108 mg/dL 0-130 [facility] CO2 [Moles/Vol] 29.0 mmol/L 21.0-32.0 [facility] Globulin (S) [Mass/Vol] 3.2 g/dL 2.2-4.2 [facility] Urea nitrogen/Creatinine [Mass ratio] 31.5 mg/mg 10-20 [facility] Laboratory - Hematology and Cell countsOrdered By: Francheska Alonzo on 12-25-2023 MCH (RBC) [Entitic mass] 34.2 pg 27.0-32.0 [facility] MCHC (RBC) [Mass/Vol] 34.8 g/dL 32-36 [facility] Nucleated RBC/100 WBC (Bld) [Ratio] 0 % 0-5 [facility] Platelet mean volume (Bld) [Entitic vol] 10.4 fL 6.2-12.0 [facility] Platelets (Bld) [#/Vol] 195 10*3/uL 150-450 [facility] No Panel InformationOrdered By: Francheska Clinton on 12-25-2023 Estimated GFR (MDRD) Amer 116 mL/min >60 [facility] Comment on above: GFR Calc Estimated GFR (MDRD) Non-Af Amer 96 mL/min >60 [facility] Comment on above: Non- GFR Calc VLDL Cholesterol 15 mg/dL 5-40 [facility] RBC Auto (Bld) [#/Vol]Ordere d By: Francheskaraz Alonzo on 12-25-2023 RBC (Bld) [#/Vol] 4.44 10*6/uL 4.6-6.2 [facility] Serum or plasma calcium pauline urement (mass/volume)Ordered By: Francheska Alonzo on 12-25-2023 Calcium [Mass/Vol] 8.9 mg/dL 8.5-10.1 [facility] Serum or plasma creatinine m easurement (mass/volume)Ordered By: Francheska Clinton on 12-25-2023 Creatinine [Mass/Vol] 0.82 mg/dL 0.70-1.30 [facility] Comment on above: The validity of the calculated GFR & GFRAA in patients over 70 years has not been determined. Clinical correlation is essential. Serum or plasma urea nitroge n measurement (mass/volume)Ordered By: Francheska Clinton on 12-25-2023 Urea nitrogen [Mass/Vol] 26 mg/dL 7-18 [facility] Thin prep Papanicolaou smear with manual screeningOrdered By: Francheska Clinton on 12-25-2023 Thin prep Papanicolaou smear with manual screening 4.0 g/dL 3.2-5.0 [facility] Thin prep Papanicolaou smear with manual screening 19 U/L 15-37 [facility] Thin prep Papanicolaou smear with manual screening 2 5-15 [facility] Absolute lymphocyte countOrd ered By: Francheska Alonzo on 05-29-2023 Lymphocytes Auto (Unsp spec) [#/Vol] 1.36 10*3/uL 0.83-4.51 [facility] Basophil percentageOrdered B y: Francheska Alonzo on 05-29-2023 Basophils/100 WBC (Bld) 0.9 % 0-1 [facility] Bilirubin [Mass/Vol] 0.60 mg/dL 0.20-1.00 [facility] Comment on above: For patients on eltr ombopag therapy, use of Dimension [place] TBIL is not recommended. Chloride [Moles/Vol] 108 mmol/L 98-107 [facility] Cholesterol [Mass/Vol] 195 mg/dL <200 [facility] Comment on above: <200 mg/dL Desirable 200-240 mg/dL Borderline >240 mg/dL High Risk Eosinophils/100 WBC (Bld) 7.8 % 0-5 [facility] Glucose [Mass/Vol] 91 mg/dL 74-106 [facility] Neutrophils (Bld) [#/Vol] 3.3 10*3/uL 2.0-7.7 [facility] Neutrophils/100 WBC (Bld) 58.6 % 47-70 [facility] Potassium [Moles/Vol] 4.1 mmol/L 3.5-5.1 [facility] Protein [Mass/Vol] 7.1 g/dL 6.4-8.2 [facility] Sodium [Moles/Vol] 139 mmol/L 136-145 [facility] Triglyceride [Mass/Vol] 92 mg/dL <199 [facility] Comment on above: The drugs N-Acetylcy steine and Metamizole may falsely depress this assay.Serum Triglycerides Reference Interval Normal <150 mg/dL Borderline high 150 - 199 mg/dL High 200 - 499 mg/dL Very High > or = 500 mg/dL WBC (Bld) [#/Vol] 5.6 10*3/uL 4.4-11.0 [facility] Blood erythrocytes count (nu mber/volume)Ordered By: Francheska Alonzo on 05-29-2023 RBC (Bld) [#/Vol] 4.51 10*6/uL 4.6-6.2 [facility] Blood hemoglobin measurement (mass/volume)Ordered By: Francheska Alonzo on 05-29-2023 Hemoglobin (Bld) [Mass/Vol] 15.4 g/dL 13.0-16.5 [facility] Blood lymphocytes/100 leukoc ytesOrdered By: Francheska on 05-29-2023 Lymphocytes/100 WBC (Bld) 24.2 % 19-41 [facility] Blood monocytes/100 leukocyt esOrdered By: Francheska on 05-29-2023 Monocytes/100 WBC (Bld) 8.3 % 0-10 [facility] Blood platelet mean volumeOr dered By: Francheska on 05-29-2023 Platelet mean volume (Bld) [Entitic vol] 11.7 fL 6.2-12.0 [facility] Determination of erythrocyte mean corpuscular volume (MCV)Ordered By: Francheska on 05-29-2023 MCV (RBC) [Entitic vol] 99.8 fL 80-94 [facility] Erythrocyte sedimentation ra teOrdered By: Francheska on 05-29-2023 ESR (Bld) [Velocity] mm/h 0-20 [facility] Hematocrit Auto (Bld) [Volum e fraction]Ordered By: Francheska 05-29-2023 Hematocrit (Bld) [Volume fraction] 45.0 % 40-54 [facility] Laboratory - Chemistry and C hemistry - challengeOrdered By: Francheska on 05-29-2023 ALP [Catalytic activity/Vol] 82 U/L 45-117 [facility] ALT [Catalytic activity/Vol] 31 U/L 16-61 [facility] CO2 [Moles/Vol] 27.0 mmol/L 21.0-32.0 [facility] Globulin (S) [Mass/Vol] 2.9 g/dL 2.2-4.2 [facility] Urea nitrogen/Creatinine [Mass ratio] 22.7 mg/mg 10-20 [facility] Laboratory - Hematology and Cell countsOrdered By: Francheska Fast on 05-29-2023 Erythrocyte distribution width (RBC) [Entitic vol] 45.7 fL 35.1-43.9 [facility] Erythrocyte distribution width (RBC) [Ratio] 12.4 % 11.6-14.6 [facility] Immature granulocytes/100 WBC (Bld) 0.200 % 0.0-0.9 [facility] Comment on above: IG% - Immature Granu locytes (promyelocytes, myelocytes and metamyelocytes) > 1% indicates that a LEFT SHIFT is Present. MCH (RBC) [Entitic mass] 34.1 pg 27.0-32.0 [facility] Nucleated RBC/100 WBC (Bld) [Ratio] 0 % 0-5 [facility] MCHC Auto (RBC) [Mass/Vol]Or dered By: Francheska on 05-29-2023 MCHC (RBC) [Mass/Vol] 34.2 g/dL 32-36 [facility] No Panel InformationOrdered By: Francheska on 05-29-2023 Anti-Nuclear Antibody Screen Negative Negative [facility] Comment on above: Performed at: [employer] [address] [id number] Director: Brennan Pacsual PhD, Phone: [phone] Estimated GFR (MDRD) Amer 122 mL/min >60 [facility] Comment on above: GFR Calc Estimated GFR (MDRD) Non-Af Amer 101 mL/min >60 [facility] Comment on above: Non- GFR Calc Platelets bldOrdered By: Faby dhaliwal Fast on 05-29-2023 Platelets (Bld) [#/Vol] 178 10*3/uL 150-450 [facility] Serum or plasma C reactive p rotein measurement (mass/volume)Ordered By: Francheska Fast on 05-29-2023 CRP [Mass/Vol] mg/L 0.0-3.0 [facility] Comment on above: C-Reactive Protein ( CRP) provides useful information for thediagnosis, therapy and monitoring of inflammatory processesand associated diseases. For the evaluation of Relative Riskfor Cardiovascular Disease, a High Sensitivity CRP (HSCRP)should be ordered. Serum or plasma albumin pauline urement (mass/volume)Ordered By: Francheska Fast on 05-29-2023 Albumin [Mass/Vol] 4.2 g/dL 3.2-5.0 [facility] Serum or plasma albumin/glob ulin mass ratioOrdered By: on 05-29-2023 Albumin/Globulin [Mass ratio] 1.4 {ratio} 0.9-2.4 [facility] Serum or plasma calcium pauline urement (mass/volume)Ordered By: 05-29-2023 Calcium [Mass/Vol] 9.2 mg/dL 8.5-10.1 [facility] Serum or plasma cholesterol in HDL measurement (mass/volume)Ordered By: on 05-29-2023 Cholesterol in HDL [Mass/Vol] 80 mg/dL >40 [facility] Comment on above: The drugs N-Acetylcy steine and Metamizole may falsely depress this assay. Reference Range HDL <40 mg/dL Low HDL Cholesterol HDL >or= 60 mg/dL High HDL Cholesterol Serum or plasma cholesterol in VLDL measurement (mass/volume)Ordered By: on 05-29-2023 Cholesterol in VLDL [Mass/Vol] 18 mg/dL 5-40 [facility] Serum or plasma creatinine m easurement (mass/volume)Ordered By: 05-29-2023 Creatinine [Mass/Vol] 0.79 mg/dL 0.70-1.30 [facility] Comment on above: The validity of the calculated GFR & GFRAA in patients over 70 years has not been determined. Clinical correlation is essential. Serum or plasma low density lipoprotein (LDL) cholesterol measurement (mass/volume)Ordered By: on 05-29-2023 Cholesterol in LDL [Mass/Vol] 97 mg/dL 0-130 [facility] Serum or plasma urea nitroge n measurement (mass/volume)Ordered By: 05-29-2023 Urea nitrogen [Mass/Vol] 18 mg/dL 7-18 [facility] Serum rheumatoid factor dete ctionOrdered By: on 05-29-2023 Rheumatoid factor Ql (S) < 10.0 IU/mL <15 [facility] Thin prep Papanicolaou smear with manual screeningOrdered By: 05-29-2023 Thin prep Papanicolaou smear with manual screening 20 U/L 15-37 [facility] Thin prep Papanicolaou smear with manual screening 4 5-15 [facility] Absolute lymphocyte countOrd ered By: Dr. Alonzo on 02-22-2023 Lymphocytes Auto (Unsp spec) [#/Vol] 1.40 10*3/uL 0.83-4.51 [facility] Basophil percentageOrdered B y: Dr. Alonzo on 02-22-2023 Basophils/100 WBC (Bld) 0.9 % 0-1 [facility] Bilirubin [Mass/Vol] 0.60 mg/dL 0.20-1.00 [facility] Comment on above: For patients on eltr ombopag therapy, use of Dimension [place] TBIL is not recommended. Chloride [Moles/Vol] 106 mmol/L 98-107 [facility] Cholesterol [Mass/Vol] 205 mg/dL <200 [facility] Comment on above: <200 mg/dL Desirable 200-240 mg/dL Borderline >240 mg/dL High Risk Eosinophils/100 WBC (Bld) 6.7 % 0-5 [facility] Glucose [Mass/Vol] 88 mg/dL 74-106 [facility] Neutrophils (Bld) [#/Vol] 3.4 10*3/uL 2.0-7.7 [facility] Neutrophils/100 WBC (Bld) 59.0 % 47-70 [facility] Potassium [Moles/Vol] 4.5 mmol/L 3.5-5.1 [facility] Protein [Mass/Vol] 7.1 g/dL 6.4-8.2 [facility] Sodium [Moles/Vol] 140 mmol/L 136-145 [facility] Triglyceride [Mass/Vol] 112 mg/dL <199 [facility] Comment on above: The drugs N-Acetylcy steine and Metamizole may falsely depress this assay.Serum Triglycerides Reference Interval Normal <150 mg/dL Borderline high 150 - 199 mg/dL High 200 - 499 mg/dL Very High > or = 500 mg/dL WBC (Bld) [#/Vol] 5.7 10*3/uL 4.4-11.0 [facility] Blood erythrocytes count (nu mber/volume)Ordered By: Dr. Alonzo on 02-22-2023 RBC (Bld) [#/Vol] 4.57 10*6/uL 4.6-6.2 [facility] Blood hemoglobin measurement (mass/volume)Ordered By: Dr. Alonzo on 02-22-2023 Hemoglobin (Bld) [Mass/Vol] 15.9 g/dL 13.0-16.5 [facility] Blood lymphocytes/100 leukoc ytesOrdered By: Dr. Alonzo on 02-22-2023 Lymphocytes/100 WBC (Bld) 24.6 % 19-41 [facility] Blood monocytes/100 leukocyt esOrdered By: Dr. Alonzo on 02-22-2023 Monocytes/100 WBC (Bld) 8.6 % 0-10 [facility] Blood platelet mean volumeOr dered By: Dr. Alonzo on 02-22-2023 Platelet mean volume (Bld) [Entitic vol] 11.1 fL 6.2-12.0 [facility] Determination of erythrocyte mean corpuscular volume (MCV)Ordered By: Dr. Alonzo on 02-22-2023 MCV (RBC) [Entitic vol] 99.3 fL 80-94 [facility] Hematocrit Auto (Bld) [Volum e fraction]Ordered By: Dr. Alonzo on 02-22-2023 Hematocrit (Bld) [Volume fraction] 45.4 % 40-54 [facility] Laboratory - Chemistry and C hemistry - challengeOrdered By: Dr. Alonzo on 02-22-2023 ALP [Catalytic activity/Vol] 83 U/L 45-117 [facility] ALT [Catalytic activity/Vol] 27 U/L 16-61 [facility] CO2 [Moles/Vol] 25.0 mmol/L 21.0-32.0 [facility] Globulin (S) [Mass/Vol] 3.1 g/dL 2.2-4.2 [facility] Urea nitrogen/Creatinine [Mass ratio] 23.8 mg/mg 10-20 [facility] Laboratory - Hematology and Cell countsOrdered By: Dr. Alonzo on 02-22-2023 Erythrocyte distribution width (RBC) [Entitic vol] 44.3 fL 35.1-43.9 [facility] Erythrocyte distribution width (RBC) [Ratio] 12.2 % 11.6-14.6 [facility] Immature granulocytes/100 WBC (Bld) 0.200 % 0.0-0.9 [facility] Comment on above: IG% - Immature Granu locytes (promyelocytes, myelocytes and metamyelocytes) > 1% indicates that a LEFT SHIFT is Present. MCH (RBC) [Entitic mass] 34.8 pg 27.0-32.0 [facility] Nucleated RBC/100 WBC (Bld) [Ratio] 0 % 0-5 [facility] MCHC Auto (RBC) [Mass/Vol]Or dered By: Dr. Alonzo on 02-22-2023 MCHC (RBC) [Mass/Vol] 35.0 g/dL 32-36 [facility] No Panel InformationOrdered By: Dr. Alonzo on 02-22-2023 Estimated GFR (MDRD) Amer 107 mL/min >60 [facility] Comment on above: GFR Calc Estimated GFR (MDRD) Non-Af Amer 89 mL/min >60 [facility] Comment on above: Non- GFR Calc Prostate Specific Antigen Total 1.68 ng/mL 0.0-4.0 [facility] Comment on above: This test was perfor med using the TPSA assay method for the[employer] chemistry system. Values obtained with differentassay methods cannot be used interchangably.When changing PSA assays in the course of monitoring apatient, additional sequential testing should be carriedout to confirm baseline values. Vitamin D 25-Hydroxy 67.0 ng/mL [facility] Comment on above: Vitamin D 25(OH) Sta tus Range Deficiency <20 ng/mL (50nmol/L) Insufficiency 20 - 30 ng/mL (50 - 75 nmol/L) Sufficiency 30 - 100 ng/mL (75 - 250 nmol/L) Toxicity >100 ng/mL (>250 nmol/L) Platelets bldOrdered By: Dr. Alonzo on 02-22-2023 Platelets (Bld) [#/Vol] 189 10*3/uL 150-450 [facility] Serum or plasma albumin pauline urement (mass/volume)Ordered By: Dr. Alonzo on 02-22-2023 Albumin [Mass/Vol] 4.0 g/dL 3.2-5.0 [facility] Serum or plasma albumin/glob ulin mass ratioOrdered By: Dr. Alonzo on 02-22-2023 Albumin/Globulin [Mass ratio] 1.3 {ratio} 0.9-2.4 [facility] Serum or plasma calcium pauline urement (mass/volume)Ordered By: Dr. Alonzo on 02-22-2023 Calcium [Mass/Vol] 9.3 mg/dL 8.5-10.1 [facility] Serum or plasma cholesterol in HDL measurement (mass/volume)Ordered By: Dr. Alonzo on 02-22-2023 Cholesterol in HDL [Mass/Vol] 75 mg/dL >40 [facility] Comment on above: The drugs N-Acetylcy steine and Metamizole may falsely depress this assay. Reference Range HDL <40 mg/dL Low HDL Cholesterol HDL >or= 60 mg/dL High HDL Cholesterol Serum or plasma cholesterol in VLDL measurement (mass/volume)Ordered By: Dr. Alonzo on 02-22-2023 Cholesterol in VLDL [Mass/Vol] 22 mg/dL 5-40 [facility] Serum or plasma creatinine m easurement (mass/volume)Ordered By: Dr. Alonzo on 02-22-2023 Creatinine [Mass/Vol] 0.88 mg/dL 0.70-1.30 [facility] Comment on above: The validity of the calculated GFR & GFRAA in patients over 70 years has not been determined. Clinical correlation is essential. Serum or plasma low density lipoprotein (LDL) cholesterol measurement (mass/volume)Ordered By: Dr. Alonzo on 02-22-2023 Cholesterol in LDL [Mass/Vol] 108 mg/dL 0-130 [facility] Serum or plasma urea nitroge n measurement (mass/volume)Ordered By: Dr. Alonzo on 02-22-2023 Urea nitrogen [Mass/Vol] 21 mg/dL 7-18 [facility] Thin prep Papanicolaou smear with manual screeningOrdered By: Dr. Alonzo on 02-22-2023 Thin prep Papanicolaou smear with manual screening 22 U/L 15-37 [facility] Thin prep Papanicolaou smear with manual screening 9 5-15 [facility] Absolute lymphocyte countOrd ered By: Dr. Valdez on 11-30-2022 Lymphocytes Auto (Unsp spec) [#/Vol] 1.52 10*3/uL 0.83-4.51 [facility] Basophil percentageOrdered B y: Dr. Valdez on 11-30-2022 Basophils/100 WBC (Bld) 0.7 % 0-1 [facility] Chloride [Moles/Vol] 106 mmol/L 98-107 [facility] Eosinophils/100 WBC (Bld) 4.6 % 0-5 [facility] Glucose [Mass/Vol] 96 mg/dL 74-106 [facility] Neutrophils (Bld) [#/Vol] 4.5 10*3/uL 2.0-7.7 [facility] Neutrophils/100 WBC (Bld) 65.1 % 47-70 [facility] Potassium [Moles/Vol] 4.4 mmol/L 3.5-5.1 [facility] Sodium [Moles/Vol] 138 mmol/L 136-145 [facility] WBC (Bld) [#/Vol] 7.0 10*3/uL 4.4-11.0 [facility] Blood erythrocytes count (nu mber/volume)Ordered By: Dr. Valdez on 11-30-2022 RBC (Bld) [#/Vol] 4.49 10*6/uL 4.6-6.2 [facility] Blood hemoglobin measurement (mass/volume)Ordered By: Dr. Valdez on 11-30-2022 Hemoglobin (Bld) [Mass/Vol] 15.8 g/dL 13.0-16.5 [facility] Blood lymphocytes/100 leukoc ytesOrdered By: Dr. Valdez on 11-30-2022 Lymphocytes/100 WBC (Bld) 21.8 % 19-41 [facility] Blood monocytes/100 leukocyt esOrdered By: Dr. Valdez on 11-30-2022 Monocytes/100 WBC (Bld) 7.5 % 0-10 [facility] Blood platelet mean volumeOr dered By: Dr. Valdez on 11-30-2022 Platelet mean volume (Bld) [Entitic vol] 10.9 fL 6.2-12.0 [facility] Determination of erythrocyte mean corpuscular volume (MCV)Ordered By: Dr. Valdez on 11-30-2022 MCV (RBC) [Entitic vol] 99.6 fL 80-94 [facility] Hematocrit Auto (Bld) [Volum e fraction]Ordered By: Dr. Valdez on 11-30-2022 Hematocrit (Bld) [Volume fraction] 44.7 % 40-54 [facility] Laboratory - Chemistry and C hemistry - challengeOrdered By: Dr. Valdez on 11-30-2022 CO2 [Moles/Vol] 26.0 mmol/L 21.0-32.0 [facility] Urea nitrogen/Creatinine [Mass ratio] 27.5 mg/mg 10-20 [facility] - Hematology and Cell countsOrdered By: Dr. Valdez on 11-30-2022 Erythrocyte distribution width (RBC) [Entitic vol] 45.4 fL 35.1-43.9 [facility] Erythrocyte distribution width (RBC) [Ratio] 12.4 % 11.6-14.6 [facility] Immature granulocytes/100 WBC (Bld) 0.300 % 0.0-0.9 [facility] Comment on above: IG% - Immature Granu locytes (promyelocytes, myelocytes and metamyelocytes) > 1% indicates that a LEFT SHIFT is Present. MCH (RBC) [Entitic mass] 35.2 pg 27.0-32.0 [facility] Nucleated RBC/100 WBC (Bld) [Ratio] 0 % 0-5 [facility] MCHC Auto (RBC) [Mass/Vol]Or dered By: Dr. Valdez on 11-30-2022 MCHC (RBC) [Mass/Vol] 35.3 g/dL 32-36 [facility] No Panel InformationOrdered By: Dr. Valdez on 11-30-2022 Estimated GFR (MDRD) Amer 104 mL/min >60 [facility] Comment on above: GFR Calc Estimated GFR (MDRD) Non-Af Amer 86 mL/min >60 [facility] Comment on above: Non- GFR Calc Platelets bldOrdered By: Dr. Valdez on 11-30-2022 Platelets (Bld) [#/Vol] 200 10*3/uL 150-450 [facility] Serum or plasma calcium pauline urement (mass/volume)Ordered By: Dr. Valdez on 11-30-2022 Calcium [Mass/Vol] 9.4 mg/dL 8.5-10.1 [facility] Serum or plasma creatinine m easurement (mass/volume)Ordered By: Dr. Valdez on 11-30-2022 Creatinine [Mass/Vol] 0.91 mg/dL 0.70-1.30 [facility] Comment on above: The validity of the calculated GFR & GFRAA in patients over 70 years has not been determined. Clinical correlation is essential. Serum or plasma urea nitroge n measurement (mass/volume)Ordered By: Dr. Valdez on 11-30-2022 Urea nitrogen [Mass/Vol] 25 mg/dL 7-18 [facility] Thin prep Papanicolaou smear with manual screeningOrdered By: Dr. Valdez on 11-30-2022 Thin prep Papanicolaou smear with manual screening 6 5-15 [facility] Absolute lymphocyte countOrd ered By: Dr. Alonzo on 10-29-2022 Lymphocytes Auto (Unsp spec) [#/Vol] 1.20 10*3/uL 0.83-4.51 [facility] Basophil percentageOrdered B y: Dr. Alonzo on 10-29-2022 Basophils/100 WBC (Bld) 0.7 % 0-1 [facility] Bilirubin [Mass/Vol] 0.50 mg/dL 0.20-1.00 [facility] Comment on above: For patients on eltr ombopag therapy, use of Dimension [place] TBIL is not recommended. Chloride [Moles/Vol] 105 mmol/L 98-107 [facility] Cholesterol [Mass/Vol] 227 mg/dL <200 [facility] Comment on above: <200 mg/dL Desirable 200-240 mg/dL Borderline >240 mg/dL High Risk Eosinophils/100 WBC (Bld) 5.5 % 0-5 [facility] Glucose [Mass/Vol] 93 mg/dL 74-106 [facility] Neutrophils (Bld) [#/Vol] 3.7 10*3/uL 2.0-7.7 [facility] Neutrophils/100 WBC (Bld) 64.9 % 47-70 [facility] Potassium [Moles/Vol] 4.2 mmol/L 3.5-5.1 [facility] Protein [Mass/Vol] 7.1 g/dL 6.4-8.2 [facility] Sodium [Moles/Vol] 140 mmol/L 136-145 [facility] Triglyceride [Mass/Vol] 88 mg/dL <199 [facility] Comment on above: The drugs N-Acetylcy steine and Metamizole may falsely depress this assay.Serum Triglycerides Reference Interval Normal <150 mg/dL Borderline high 150 - 199 mg/dL High 200 - 499 mg/dL Very High > or = 500 mg/dL WBC (Bld) [#/Vol] 5.6 10*3/uL 4.4-11.0 [facility] Blood erythrocytes count (nu mber/volume)Ordered By: Dr. Alonzo on 10-29-2022 RBC (Bld) [#/Vol] 4.46 10*6/uL 4.6-6.2 [facility] Blood hemoglobin measurement (mass/volume)Ordered By: Dr. Alonzo on 10-29-2022 Hemoglobin (Bld) [Mass/Vol] 15.3 g/dL 13.0-16.5 [facility] Blood lymphocytes/100 leukoc ytesOrdered By: Dr. Alonzo on 10-29-2022 Lymphocytes/100 WBC (Bld) 21.4 % 19-41 [facility] Blood monocytes/100 leukocyt esOrdered By: Dr. Alonzo on 10-29-2022 Monocytes/100 WBC (Bld) 7.1 % 0-10 [facility] Blood platelet mean volumeOr dered By: Dr. Alonzo on 10-29-2022 Platelet mean volume (Bld) [Entitic vol] 11.1 fL 6.2-12.0 [facility] Determination of erythrocyte mean corpuscular volume (MCV)Ordered By: Dr. Alonzo on 10-29-2022 MCV (RBC) [Entitic vol] 98.4 fL 80-94 [facility] Hematocrit Auto (Bld) [Volum e fraction]Ordered By: Dr. Alonzo on 10-29-2022 Hematocrit (Bld) [Volume fraction] 43.9 % 40-54 [facility] Laboratory - Chemistry and C hemistry - challengeOrdered By: Dr. Alonzo on 10-29-2022 ALP [Catalytic activity/Vol] 74 U/L 45-117 [facility] ALT [Catalytic activity/Vol] 26 U/L 16-61 [facility] CO2 [Moles/Vol] 26.0 mmol/L 21.0-32.0 [facility] Globulin (S) [Mass/Vol] 3.1 g/dL 2.2-4.2 [facility] Urea nitrogen/Creatinine [Mass ratio] 22.2 mg/mg 10-20 [facility] - Hematology and Cell countsOrdered By: Dr. Alonzo on 10-29-2022 Erythrocyte distribution width (RBC) [Entitic vol] 44.5 fL 35.1-43.9 [facility] Erythrocyte distribution width (RBC) [Ratio] 12.3 % 11.6-14.6 [facility] Immature granulocytes/100 WBC (Bld) 0.400 % 0.0-0.9 [facility] Comment on above: IG% - Immature Granu locytes (promyelocytes, myelocytes and metamyelocytes) > 1% indicates that a LEFT SHIFT is Present. MCH (RBC) [Entitic mass] 34.3 pg 27.0-32.0 [facility] Nucleated RBC/100 WBC (Bld) [Ratio] 0 % 0-5 [facility] MCHC Auto (RBC) [Mass/Vol]Or dered By: Dr. Alonzo on 10-29-2022 MCHC (RBC) [Mass/Vol] 34.9 g/dL 32-36 [facility] No Panel InformationOrdered By: Dr. Alonzo on 10-29-2022 Estimated GFR (MDRD) Amer 105 mL/min >60 [facility] Comment on above: GFR Calc Estimated GFR (MDRD) Non-Af Amer 87 mL/min >60 [facility] Comment on above: Non- GFR Calc Vitamin D 25-Hydroxy 106.3 ng/mL [facility] Comment on above: [...] 10-29-2022 Platelets (Bld) [#/Vol] 195 10*3/uL 150-450 [facility] Serum or plasma albumin pauline urement (mass/volume)Ordered By: Dr. Alonzo on 10-29-2022 Albumin [Mass/Vol] 4.0 g/dL 3.2-5.0 [facility] Serum or plasma albumin/glob ulin mass ratioOrdered By: Dr. Alonzo on 10-29-2022 Albumin/Globulin [Mass ratio] 1.3 {ratio} 0.9-2.4 [facility] Serum or plasma calcium pauline urement (mass/volume)Ordered By: Dr. Alonzo on 10-29-2022 Calcium [Mass/Vol] 9.4 mg/dL 8.5-10.1 [facility] Serum or plasma cholesterol in HDL measurement (mass/volume)Ordered By: Dr. Alonzo on 10-29-2022 Cholesterol in HDL [Mass/Vol] 74 mg/dL >40 [facility] Comment on above: The drugs N-Acetylcy steine and Metamizole may falsely depress this assay. Reference Range HDL <40 mg/dL Low HDL Cholesterol HDL >or= 60 mg/dL High HDL Cholesterol Serum or plasma cholesterol in VLDL measurement (mass/volume)Ordered By: Dr. Alonzo on 10-29-2022 Cholesterol in VLDL [Mass/Vol] 18 mg/dL 5-40 [facility] Serum or plasma creatinine m easurement (mass/volume)Ordered By: Dr. Alonzo on 10-29-2022 Creatinine [Mass/Vol] 0.90 mg/dL 0.70-1.30 [facility] Comment on above: The validity of the calculated GFR & GFRAA in patients over 70 years has not been determined. Clinical correlation is essential. Serum or plasma low density lipoprotein (LDL) cholesterol measurement (mass/volume)Ordered By: Dr. Alonzo on 10-29-2022 Cholesterol in LDL [Mass/Vol] 135 mg/dL 0-130 [facility] Serum or plasma urea nitroge n measurement (mass/volume)Ordered By: Dr. Alonzo on 10-29-2022 Urea nitrogen [Mass/Vol] 20 mg/dL 7-18 [facility] Thin prep Papanicolaou smear with manual screeningOrdered By: Dr. Alonzo on 10-29-2022 Thin prep Papanicolaou smear with manual screening 19 U/L 15-37 [facility] Thin prep Papanicolaou smear with manual screening 9 5-15 [facility] CBC W/AUTO DIFF WBC ([id number])O rdered By: [place] Boat[place] on 07-16-2022 Basophils (Bld) [#/Vol] 0.0 10*3/uL Normal 0.0-0.2 [facility]; [facility] Work Phone: Comment on above: PATIENT WAS FASTINGP ERFORMED BY: Bright[employer] Charge Gahfrm5217 [facility]DNov[facility] [id number] Information: NURSE DRAW Basophils/100 WBC (Bld) 1 % Normal [facility]; [facility] Work Phone: Comment on above: PATIENT WAS FASTINGP ERFORMED BY: [employer] Charge Euifzq7539 LeadiDNovant [facility] [id number] Information: NURSE DRAW Eosinophils (Bld) [#/Vol] 0.3 10*3/uL Normal 0.0-0.4 [facility]; [facility] Work Phone: Comment on above: PATIENT WAS FASTINGP ERFORMED BY: [employer] Yrqetp5485 LeadiDNovant [facility] [id number] Information: NURSE DRAW Eosinophils/100 WBC (Bld) 5 % Normal [facility]; [facility] Work Phone: Comment on above: PATIENT WAS FASTINGP ERFORMED BY: [employer] Charge Wbbhqq4973 Rodas Live CalendarsNovant Health [facility] [id number] Information: NURSE DRAW Erythrocyte distribution width (RBC) [Ratio] 12.3 % Normal 11.6-15.4 [facility]; [facility] Work Phone: Comment on above: PATIENT WAS FASTINGP ERFORMED BY: [place] [id number] [facility] [id number] Information: NURSE DRAW Hematocrit (Bld) [Volume fraction] 46.3 % Normal 37.5-51.0 [facility]; [facility] Work Phone: Comment on above: PATIENT WAS FASTINGP ERFORMED BY: [address] [id number] Information: NURSE DRAW Hemoglobin (Bld) [Mass/Vol] 16.0 g/dL Normal 13.0-17.7 [facility]; [facility] Work Phone: Comment on above: PATIENT WAS FASTINGP ERFORMED BY: [address] [id number] Information: NURSE DRAW Immature granulocytes (Bld) [#/Vol] 0.0 10*3/uL Normal 0.0-0.1 [facility]; [facility] Work Phone: Comment on above: PATIENT WAS FASTINGP ERFORMED BY: [address] [id number] Information: NURSE DRAW Immature granulocytes/100 WBC (Bld) 0 % Normal [facility]; [facility] Work Phone: Comment on above: PATIENT WAS FASTINGP ERFORMED BY: [address] [id number] Information: NURSE DRAW Lymphocytes (Bld) [#/Vol] 1.4 10*3/uL Normal 0.7-3.1 [facility]; [facility] Work Phone: Comment on above: PATIENT WAS FASTINGP ERFORMED BY: [address] [id number] Information: NURSE DRAW Lymphocytes/100 WBC (Bld) 25 % Normal [facility]; [facility] Work Phone: Comment on above: PATIENT WAS FASTINGP ERFORMED BY: [address] [id number] Information: NURSE DRAW MCH (RBC) [Entitic mass] 34.5 pg Abnormal 26.6-33.0 [facility]; [facility] Work Phone: Comment on above: PATIENT WAS FASTINGP ERFORMED BY: CLIFF Ma Enlrov4537 [facility] [id number] Information: NURSE DRAW MCHC (RBC) [Mass/Vol] 34.6 g/dL Normal 31.5-35.7 [facility] prehensive Internal Medicine; [facility] Work Phone: Comment on above: PATIENT WAS FASTINGP ERFORMED BY: [address] [id number] Information: NURSE DRAW MCV (RBC) [Entitic vol] 100 fL Abnormal 79-97 [facility]; [facility] Work Phone: Comment on above: PATIENT WAS FASTINGP ERFORMED BY: [address] [id number] Information: NURSE DRAW Monocytes (Bld) [#/Vol] 0.4 10*3/uL Normal 0.1-0.9 [facility]; [facility] Work Phone: Comment on above: PATIENT WAS FASTINGP ERFORMED BY: [address] [id number] Information: NURSE DRAW Monocytes/100 WBC (Bld) 7 % Normal [facility]; [facility] Work Phone: Comment on above: PATIENT WAS FASTINGP ERFORMED BY: [address] [id number] Information: NURSE DRAW Neutrophils (Bld) [#/Vol] 3.4 10*3/uL Normal 1.4-7.0 [facility]; [facility] Work Phone: Comment on above: PATIENT WAS FASTINGP ERFORMED BY: [address] [id number] Information: NURSE DRAW Neutrophils/100 WBC (Bld) 62 % Normal [facility]; [facility] Work Phone: Comment on above: PATIENT WAS FASTINGP ERFORMED BY: CLIFF [facility] Wuurmj1199 [facility] [id number] Information: NURSE DRAW Platelets (Bld) [#/Vol] 224 10*3/uL Normal 150-450 [facility]; [facility] Work Phone: Comment on above: PATIENT WAS FASTINGP ERFORMED BY: [facility] Lxoewb0897 [facility] [id number] Information: NURSE DRAW RBC (Bld) [#/Vol] 4.64 10*6/uL Normal 4.14-5.80 [facility] Internal Medicine; [facility] Internal Medicine Work Phone: Comment on above: PATIENT WAS FASTINGP ERFORMED BY: CLIFF [facility] Uhhhrd8708 [facility] [id number] Information: NURSE DRAW WBC (Bld) [#/Vol] 5.6 10*3/uL Normal 3.4-10.8 [facility]; [facility] Work Phone: Comment on above: PATIENT WAS FASTINGP ERFORMED BY: CLIFF [facility] Tpgocm8740 [facility] [id number] Information: NURSE DRAW METABOLIC PANEL, JENNIFER JIMENEZ ([id number])Ordered By: [place] on 07-16-2022 Albumin [Mass/Vol] 4.9 g/dL Abnormal 3.7-4.7 [facility] Internal Medicine; [facility] Work Phone: Comment on above: PATIENT WAS FASTINGP ERFORMED BY: [facility] Ahscjh0100 [facility] [id number]; wellness labs, ok to wait for wellness to review Albumin/Globulin [Mass ratio] 2.6 {ratio} Abnormal 1.2-2.2 [facility]; [facility] Work Phone: Comment on above: PATIENT WAS FASTINGP ERFORMED BY: [facility] Zlldux0161 [facility] [id number]; wellness labs, ok to wait for wellness to review ALP [Catalytic activity/Vol] 91 U/L Normal 44-121 [facility]; [facility] Work Phone: Comment on above: PATIENT WAS FASTINGP ERFORMED BY: CB [facility] Gexzus1457 Rodas RoadDuin [place] [id number]; wellness labs, ok to wait for wellness to review ALT [Catalytic activity/Vol] 24 U/L Normal 0-44 [facility]; [facility] Work Phone: Comment on above: PATIENT WAS FASTINGP ERFORMED BY: CB [facility] Dnsfxr2516 Rodas RoadNovant Health Charlotte [facility] [id number]; wellness labs, ok to wait for wellness to review AST [Catalytic activity/Vol] 25 U/L Normal 0-40 [facility]; [facility] Work Phone: Comment on above: PATIENT WAS FASTINGP ERFORMED BY: CB [facility] Bgzjkt0611 [address] [facility] [id number]; wellness labs, ok to wait for wellness to review Bilirubin [Mass/Vol] 0.3 mg/dL Normal 0.0-1.2 [facility]; [facility] Work Phone: Comment on above: PATIENT WAS FASTINGP ERFORMED BY: CB [facility] Ayhrtw3073 [address] [facility] [id number]; wellness labs, ok to wait for wellness to review Calcium [Mass/Vol] 9.8 mg/dL Normal 8.6-10.2 [facility]; [facility] Work Phone: Comment on above: PATIENT WAS FASTINGP ERFORMED BY: CB [facility] Emtzrb8359 [address] [facility] [id number]; wellness labs, ok to wait for wellness to review Chloride [Moles/Vol] 103 mmol/L Normal 96-106 [facility]eren[facility]; [facility] Work Phone: Comment on above: PATIENT WAS FASTINGP ERFORMED BY: CB [facility] Mibqkl6258 [address] [facility] [id number]; wellness labs, ok to wait for wellness to review CO2 [Moles/Vol] 21 mmol/L Normal 20-29 Comprehen sive Internal Medicine; [facility] Work Phone: Comment on above: PATIENT WAS FASTINGP ERFORMED BY: CB [facility] Uvholc0313 [address] [facility] [place] [id number]; wellness labs, ok to wait for wellness to review Creatinine [Mass/Vol] 0.92 mg/dL Normal 0.76-1.27 [facility]; [facility] Work Phone: Comment on above: PATIENT WAS FASTINGP ERFORMED BY: CB [facility] Gvmpzt6585 [address] [facility] [id number]; wellness labs, ok to wait for wellness to review GFR/1.73 sq M.predicted among non-blacks MDRD (S/P/Bld) [Vol rate/Area] 86 mL/min/{1.73_m2} Normal Comprehens e Internal Medicine; [facility] Work Phone: Comment on above: PATIENT WAS FASTINGP ERFORMED BY: CB [facility] Ypjvuu0328 [facility] [id number]; wellness labs, ok to wait for wellness to review Globulin (S) [Mass/Vol] 1.9 g/dL Normal 1.5-4.5 [facility] Internal Medicine; [facility] Work Phone: Comment on above: PATIENT WAS FASTINGP ERFORMED BY: CB [facility] Zkzkwe3664 [address] [facility] [id number]; wellness labs, ok to wait for wellness to review Glucose [Mass/Vol] 94 mg/dL Normal 70-99 [facility]; [facility] Work Phone: Comment on above: PATIENT WAS FASTINGP ERFORMED BY: CB [facility] Ovvpzc9844 [address] [facility] [id number]; wellness labs, ok to wait for wellness to review Potassium [Moles/Vol] 4.7 mmol/L Normal 3.5-5.2 [facility]; [facility] Work Phone: Comment on above: PATIENT WAS FASTINGP ERFORMED BY: CB [facility] Oicdii9168 [address] [facility] [id number]; wellness labs, ok to wait for wellness to review Protein [Mass/Vol] 6.8 g/dL Normal 6.0-8.5 [facility] Internal [facility]; [facility] Work Phone: Comment on above: PATIENT WAS FASTINGP ERFORMED BY: CLIFF [facility] Ludzst4578 [address] [facility] [id number]; wellness labs, ok to wait for wellness to review Sodium [Moles/Vol] 141 mmol/L Normal 134-144 [facility]; [facility] Work Phone: Comment on above: PATIENT WAS FASTINGP ERFORMED BY: CLIFF [facility] Drjfwn3314 [address] [facility] [id number]; wellness labs, ok to wait for wellness to review Urea nitrogen [Mass/Vol] 25 mg/dL Normal 8-27 [facility]; [facility] Work Phone: Comment on above: PATIENT WAS FASTINGP ERFORMED BY: CLIFF [facility] Mcvnnz2879 [facility]as[facility] [id number]; wellness labs, ok to wait for wellness to review Urea nitrogen/Creatinine [Mass ratio] 27 mg/mg Abnormal 10-24 [facility]; [facility] Work Phone: Comment on above: PATIENT WAS FASTINGP ERFORMED BY: CLIFF [facility] Nkfnkr0287 [facility] [id number]; wellness labs, ok to wait for wellness to review URINALYSIS, W/ MICRO ([id number]) Ordered By: [place] on 07-16-2022 Appearance (U) Cloudy Abnormal Comprehens bari Internal Medicine; [facility] Work Phone: Comment on above: PATIENT WAS FASTINGP ERFORMED BY: CLIFF [facility] Virufn2520 [address] [facility] [id number] Bilirubin Ql (U) Negative Normal Comprehe ive Internal Medicine; [facility] Work Phone: Comment on above: PATIENT WAS FASTINGP ERFORMED BY: CLIFF [facility] Wrxtvc5575 [facility] [id number] Color (U) Yellow Normal [facility]; [facility] Work Phone: Comment on above: PATIENT WAS FASTINGP ERFORMED BY: CLIFF Oliva6370 Rodas RoadDublin [place] [id number] Glucose Ql (U) Negative Normal Comprehens bari [facility]; [facility] Work Phone: Comment on above: PATIENT WAS FASTINGP ERFORMED BY: CLIFF Oliva6370 Rodas RoadDublin [place] [id number] Hemoglobin Ql (U) Negative Normal Compreh ensive Internal Medicine; [facility] Work Phone: Comment on above: PATIENT WAS FASTINGP ERFORMED BY: CLIFF Oliva6370 Rod[address] RoadDublin [place] [id number] Ketones Ql (U) Negative Normal Comprehens bari [facility]; [facility] Work Phone: Comment on above: PATIENT WAS FASTINGP ERFORMED BY: CLIFF Oliva6370 Rod[address] RoadDublin [place] [id number] Leukocyte esterase Test strip Ql (U) Negative Normal [facility]; [facility] Work Phone: Comment on above: PATIENT WAS FASTINGP ERFORMED BY: CLIFF Johnsonlin6370 Rod[address] RoadDublin [place] [id number] Microscopic observation LM Nom (Urine sed) MICRON Normal [facility]; [facility] Work Phone: Comment on above: Microscopic follows if indicated. PATIENT WAS FASTINGP ERFORMED BY: CLIFF Johnsonlin6370 Rodas RoadDublin [place] [id number] Microscopic observation LM Nom (Urine sed) See below: Normal [facility]; [facility] Work Phone: Comment on above: Microscopic was kamryn cated and was performed. PATIENT WAS FASTINGP ERFORMED BY: CLIFF Labgavion Xcbtpp0417 Rod[address] RoadDublin [place] [id number] Nitrite Ql (U) Negative Normal Comprehens bari [facility]; [facility] Work Phone: Comment on above: PATIENT WAS FASTINGP ERFORMED BY: CLIFF Labgavino JohnsonXsnkks0038 Rodas RoadDublin [place] [id number] pH (U) 8.0 [pH] Abnormal 5.0-7.5 [facility]; [facility] Work Phone: Comment on above: PATIENT WAS FASTINGP ERFORMED BY: [facility]6370 [facility] [id number] Protein Ql (U) Negative Normal Comprehens bari [facility]; [facility] Work Phone: Comment on above: PATIENT WAS FASTINGP ERFORMED BY: [facility]6370 [facility] [id number] Specific gravity (U) [Rel density] 1.020 1 Normal 1.005-1.030 [facility]; [facility] Work Phone: Comment on above: PATIENT WAS FASTINGP ERFORMED BY: [facility]6370 [facility] [id number] Urobilinogen (U) [Mass/Vol] 0.2 mg/dL Normal 0.2-1.0 [facility]; [facility] Work Phone: Comment on above: PATIENT WAS FASTINGP ERFORMED BY: [facility]6370 [facility] [id number] No Panel Informationon 05-09 Follicle Stimulating Hormone 68.8 mIU/mL [facility] Work Phone: Comment on above: NORMAL REFERENCE RAN GES FEMALE FOLLICULAR 2.3 - 12.6 mIU/mL MID-CYCLE PEAK 5.2 - 17.5 mIU/mL LUTEAL 1.7 - 12.9 mIU/mL POST-MENOPAUSAL ON MHT 5.9 - 72.8 mIU/mL NOT ON MHT 12.7 - 132.2 mlU/mL MALE 0.7 - 10.8 mIU/mL HCG Beta Subunit 3 mIU/mL 0-3 [facility] Work Phone: Comment on above: Roseanna ECLIA methodol ogyPerformed at: [facility] [place] [address] [id number] Director: Brennan Pascual PhD, Phone: [phone] Luteinizing Hormone 31.5 mIU/mL [facility] [...] measurement (mass/volume)on 05-09-2022 E2 [Mass/Vol] 33.7 pg/mL [facility] Work Phone: Comment on above: NORMAL REFERENCE [...] asurement (mass/volume)on 05-09-2022 Prolactin [Mass/Vol] 10.9 ng/mL [facility] Work Phone: Comment on above: NORMAL REFERENCE RAN GES FEMALE NON- 2.2 - 30.3 ng/mL 8.1 - 347.6 ng/mL POST-MENOPAUSAL 0.7 - 31.5 ng/mL MALE 2.5 - 17.4 ng/mL CNPPilar 04-20-2022 SAMANTHA Telephone (Watsi) JUNG ABURTO ([id number]) 1945 M Date Time Provider Department 04/20/22 [...] Encounter Status:Closed by KIRSTIE LOPEZ on 04/20/22 [facility] CNOVon 04-17-2022 CNOV Office Visit (GENSWS ) JUNG ABURTO ([id number]) 1945 M Date Time Provider Department 04/17/22 [...] the procedure well. Referring Provider: MAL JOSEPH [[id number]] Allergies As of Date: 04/17/2022 (No Known Allergies) Date Reviewed: 04/10/2022 Reviewed by: Kirstie Lopez RN - Fully Assessed Reason for Visit: Procedure [88] Cmt: Right Breast Biopsy Primary Visit Diagnosis:Subareolar mass of right breast [N63.41] Order(s):US BREAST BIOPSY RIGHT (POC) SURG USE ONLY [[id number]] Order #: [id number]. #:[id number]: 1 SURGICAL PATHOLOGY [[id number]] Order #: [id number]. #:[id number] Prescriptions as of 04/17/2022 - atorvastatin (LIPITOR) [...] Status:Closed by MAL JOSEPH on 04/17/[address] [facility] SURGICAL PATHOLOGYon [address] [facility] Comment on above: Order Comment: Speci men Type: TISSUE SPECIMEN Ordering Facility: [facility] Address: [address] [place] [id number] Result Comment: Surg ica Pathology Report Case: [id number] Authorizing Provider: Mal Joseph MD Collected: 04/17/2022 02:10 PM Ordering Location: General Surgery Received: 04/17/2022 03:27 PM Pathologist: Laure Irvin MD Specimen: BREAST CORE BIOPSY RIGHT, Right Breast Performed By: #### S #### [facility] CLIA [id number] [facility] CLINICAL HISTORY Right Breast Mass Normal [facility] Comment on above: Order Comment: Speci men Type: TISSUE SPECIMEN Ordering Facility: [facility] Address: [address] [place] [address] Performed By: #### S #### [facility] CLIA [id number] [address] [place] [address] DIAGNOSIS COMMENT Multiple deeper leve ls were examined. Clinical and radiographic correlation is suggested. Normal [facility] Comment on above: Order Comment: Speci men Type: TISSUE SPECIMEN Ordering Facility: [facility] Address: [address] [place] [address] Performed By: #### S #### [facility] CLIA [id number] [address] [place] [address] [facility] Comment on above: Order Comment: Speci men Type: TISSUE SPECIMEN Ordering Facility: [facility] Address: [address] [place] [address] Result Comment: A. R ight breast, needle core biopsy: - Benign breast ducts with focal epithelial hypercellularity in a background of paucicellular stroma with prominent vasculature and scattered foci of chronic lymphocytic inflammation, compatible with gynecomastia in the proper clinical and radiographic context. GL/JEMETERIO 04/18/2022 Performed By: #### S #### [facility] CLIA [id number] [address] [place] [address] FINAL PERFORMING LAB Normal [facility] Comment on above: Order Comment: Speci men Type: TISSUE SPECIMEN Ordering Facility: [facility] Address: [address] [place] [address] Result Comment: Diag nostic interpretation performed at [facility], [address] [place] [address] CLIA# [id number] Pressure Washer: Nnamdi Burgos M.D. Performed By: #### S #### [facility] [place] [id number] [address] [place] [address] OF [place] GROSS DESCRIPTION Normal [facility] Comment on above: Order Comment: Speci men Type: TISSUE SPECIMEN Ordering Facility: [facility] Address: [address] [place] [address] Result Comment: A. B REAST CORE BIOPSY [...] in one cassette. [place] [address] JT 04/17/2022 10:23 PM Performed By: #### S #### [facility] [place] [id number] [address] [place] [address] OF [place] US BREAST BIOPSY RIGHT (POC) SURG USE ONLYon 04-17-2022 [facility] CNOVon 04-10-2022 CNOV Office Visit (GENSWS ) JUNG ABURTO ([id number]) 1945 M Date Time Provider Department 04/10/22 9:30 AM MAL JOSEPH GENTARAS During your visit today, [...] 0 (more content not included)... Normal [facility] Basophil percentageon 2021 Bilirubin [Mass/Vol] 0.60 mg/dL 0.20-1.00 [facility] Work Phone: Comment on above: For patients on eltr ombopag therapy, use of Dimension [place] TBIL is not recommended. Chloride [Moles/Vol] 106 mmol/L 98-107 [facility] Work Phone: Cholesterol [Mass/Vol] 200 mg/dL <200 [facility] Work Phone: Comment on above: <200 mg/dL Desirable 200-240 mg/dL Borderline >240 mg/dL High Risk Glucose [Mass/Vol] 97 mg/dL 74-106 [facility] Work Phone: Potassium [Moles/Vol] 4.0 mmol/L 3.5-5.1 [facility] Work Phone: Protein [Mass/Vol] 7.1 g/dL 6.4-8.2 [facility] Work Phone: Sodium [Moles/Vol] 137 mmol/L 136-145 [facility] Work Phone: Triglyceride [Mass/Vol] 63 mg/dL <199 [facility] Work Phone: Comment on above: The drugs N-Acetylcy steine and Metamizole may falsely depress this assay.Serum Triglycerides Reference Interval Normal <150 mg/dL Borderline high 150 - 199 mg/dL High 200 - 499 mg/dL Very High > or = 500 mg/dL Laboratory - Chemistry and C hemistry - challengeon 01-19-2022 ALP [Catalytic activity/Vol] 78 U/L 45-117 [facility] Work Phone: ALT [Catalytic activity/Vol] 27 U/L 16-61 [facility] Work Phone: CO2 [Moles/Vol] 25.0 mmol/L 21.0-32.0 [facility] Work Phone: Globulin (S) [Mass/Vol] 3.3 g/dL 2.2-4.2 [facility] Work Phone: Urea nitrogen/Creatinine [Mass ratio] 23.4 mg/mg 10-20 [facility] Work Phone: No Panel Informationon 01-19 Estimated GFR (MDRD) Amer 86 mL/min >60 [facility] Work Phone: Comment on above: GFR Calc Estimated GFR (MDRD) Non-Af Amer 71 mL/min >60 [facility] Work Phone: Comment on above: Non- GFR Calc Prostate Specific Antigen Screen 1.90 ng/mL 0.00-4.00 [facility] Work Phone: Comment on above: This test was perfor med using the TPSA assay method for [employer] chemistry system. Values obtained with differentassay methods cannot be used interchangably.When changing PSA assays in the course of monitoring apatient, additional sequential testing should be carriedout to confirm baseline values. Serum or plasma albumin pauline urement (mass/volume)on 01-19-2022 Albumin [Mass/Vol] 3.8 g/dL 3.2-5.0 [facility] Work Phone: Serum or plasma albumin/glob ulin mass ratioon 01-19-2022 Albumin/Globulin [Mass ratio] 1.2 {ratio} 0.9-2.4 [facility] Work Phone: Serum or plasma calcium pauline urement (mass/volume)on 01-19-2022 Calcium [Mass/Vol] 9.2 mg/dL 8.5-10.1 [facility] Work Phone: Serum or plasma cholesterol in HDL measurement (mass/volume)on 01-19-2022 Cholesterol in HDL [Mass/Vol] 77 mg/dL >40 [facility] Work Phone: Comment on above: The drugs N-Acetylcy steine and Metamizole may falsely depress this assay. Reference Range HDL <40 mg/dL Low HDL Cholesterol HDL >or= 60 mg/dL High HDL Cholesterol Serum or plasma cholesterol in VLDL measurement (mass/volume)on 01-19-2022 Cholesterol in VLDL [Mass/Vol] 13 mg/dL 5-40 [facility] Work Phone: Serum or plasma creatinine m easurement (mass/volume)on 01-19-2022 Creatinine [Mass/Vol] 1.07 mg/dL 0.70-1.30 [facility] Work Phone: Comment on above: The validity of the calculated GFR & GFRAA in patients over 70 years has not been determined. Clinical correlation is essential. Serum or plasma low density lipoprotein (LDL) cholesterol measurement (mass/volume)on 01-19-2022 Cholesterol in LDL [Mass/Vol] 110 mg/dL 0-130 [facility] Work Phone: Serum or plasma urea nitroge n measurement (mass/volume)on 01-19-2022 Urea nitrogen [Mass/Vol] 25 mg/dL 7-18 [facility] Work Phone: Thin prep Papanicolaou smear with manual screeningon 01-19-2022 Thin prep Papanicolaou smear with manual screening 22 U/L 15-37 [facility] Work Phone: Thin prep Papanicolaou smear with manual screening 6 5-15 [facility] Work Phone: Basophil percentageon 2021 Bilirubin [Mass/Vol] 0.50 mg/dL 0.20-1.00 [facility] Work Phone: Comment on above: For patients on eltr ombopag therapy, use of Dimension [place] TBIL is not recommended. Chloride [Moles/Vol] 104 mmol/L 98-107 [facility] Work Phone: Cholesterol [Mass/Vol] 230 mg/dL <200 [facility] Work Phone: Comment on above: <200 mg/dL Desirable 200-240 mg/dL Borderline >240 mg/dL High Risk Glucose [Mass/Vol] 89 mg/dL 74-106 [facility] Work Phone: Potassium [Moles/Vol] 4.1 mmol/L 3.5-5.1 [facility] Work Phone: Protein [Mass/Vol] 7.6 g/dL 6.4-8.2 [facility] Work Phone: Sodium [Moles/Vol] 138 mmol/L 136-145 [facility] Work Phone: Triglyceride [Mass/Vol] 83 mg/dL [facility] Work Phone: Comment on above: The drugs N-Acetylcy steine and Metamizole may falsely depress this assay.Serum Triglycerides Reference Interval Normal <150 mg/dL Borderline high 150 - 199 mg/dL High 200 - 499 mg/dL Very High > or = 500 mg/dL Laboratory - Chemistry and C hemistry - challengeon 10-05-2021 ALP [Catalytic activity/Vol] 85 U/L 45-117 [facility] Work Phone: ALT [Catalytic activity/Vol] 25 U/L 16-61 [facility] Work Phone: CO2 [Moles/Vol] 27.0 mmol/L 21.0-32.0 [facility] Work Phone: Globulin (S) [Mass/Vol] 3.5 g/dL 2.2-4.2 [facility] Work Phone: Urea nitrogen/Creatinine [Mass ratio] 22.3 mg/mg 10-20 [facility] Work Phone: No Panel Informationon 10-05 Estimated GFR (MDRD) Amer 95 mL/min >60 [facility] Work Phone: Comment on above: GFR Calc Estimated GFR (MDRD) Non-Af Amer 78 mL/min >60 [facility] Work Phone: Comment on above: Non- GFR Calc Hepatitis C Antibody Non-Reactive Nonreactive W [facility] Work Phone: Comment on above: Non Reactive: < 0.8 Equivocal: >/= 0.8 to < 1.0 Reactive: >/= 1.0The [facility] recommends that a reactive/equivocal HCV antibody result be followed up by the HCV Nucleic Acid Amplificationtest (735424) Vitamin B12 Level > 2000 pg/mL 211-911 [facility] Work Phone: Serum or plasma albumin pauline urement (mass/volume)on 10-05-2021 Albumin [Mass/Vol] 4.1 g/dL 3.2-5.0 [facility] Work Phone: Serum or plasma albumin/glob ulin mass ratioon 10-05-2021 Albumin/Globulin [Mass ratio] 1.2 {ratio} 0.9-2.4 [facility] Work Phone: Serum or plasma calcium pauline urement (mass/volume)on 10-05-2021 Calcium [Mass/Vol] 9.1 mg/dL 8.5-10.1 [facility] Work Phone: Serum or plasma cholesterol in HDL measurement (mass/volume)on 10-05-2021 Cholesterol in HDL [Mass/Vol] 79 mg/dL [facility] Work Phone: Comment on above: The drugs N-Acetylcy steine and Metamizole may falsely depress this assay. Reference Range HDL <40 mg/dL Low HDL Cholesterol HDL >or= 60 mg/dL High HDL Cholesterol Serum or plasma cholesterol in VLDL measurement (mass/volume)on 10-05-2021 Cholesterol in VLDL [Mass/Vol] 17 mg/dL 5-40 [facility] Work Phone: Serum or plasma creatinine m easurement (mass/volume)on 10-05-2021 Creatinine [Mass/Vol] 0.99 mg/dL 0.70-1.30 [facility] Work Phone: Comment on above: The validity of the calculated GFR & GFRAA in patients over 70 years has not been determined. Clinical correlation is essential. Serum or plasma folate measu rement (mass/volume)on 10-05-2021 Folate [Mass/Vol] 57.20 ng/mL 3.1-55.4 [facility] Work Phone: Serum or plasma low density lipoprotein (LDL) cholesterol measurement (mass/volume)on 10-05-2021 Cholesterol in LDL [Mass/Vol] 134 mg/dL 0-130 [facility] Work Phone: Serum or plasma urea nitroge n measurement (mass/volume)on 10-05-2021 Urea nitrogen [Mass/Vol] 22 mg/dL 7-18 [facility] Work Phone: Thin prep Papanicolaou smear with manual screeningon 10-05-2021 Thin prep Papanicolaou smear with manual screening 18 U/L 15-37 [facility] Work Phone: Thin prep Papanicolaou smear with manual screening 7 5-15 [facility] Work Phone: CBC, PLATELETS & MANUAL DIFF ([id number])Ordered By: [place] Boat[place] on 06-05-2021 Basophils (Bld) [#/Vol] 0.1 10*3/uL Normal 0.0-0.2 [facility] Work Phone: Comment on above: PATIENT WAS FASTINGP ERFORMED BY: Issuu [facility] [id number] Information: NURSE DRAW; wellness labs Basophils/100 WBC (Bld) 1 % Normal [facility]; [facility] Work Phone: Comment on above: PATIENT WAS FASTINGP ERFORMED BY: [employer] [facility] [id number] Information: NURSE DRAW; wellness labs Eosinophils (Bld) [#/Vol] 0.3 10*3/uL Normal 0.0-0.4 [facility]; [facility] Work Phone: Comment on above: PATIENT WAS FASTINGP ERFORMED BY: Issuu [facility] [id number] Information: NURSE DRAW; wellness labs Eosinophils/100 WBC (Bld) 4 % Normal [facility]; [facility] Work Phone: Comment on above: PATIENT WAS FASTINGP ERFORMED BY: [address] [id number] Information: NURSE DRAW; wellness labs Erythrocyte distribution width (RBC) [Ratio] 12.3 % Normal 11.6-15.4 [facility]; [facility] Work Phone: Comment on above: PATIENT WAS FASTINGP ERFORMED BY: [address] [id number] Information: NURSE DRAW; wellness labs Hematocrit (Bld) [Volume fraction] 47.4 % Normal 37.5-51.0 [facility]; [facility] Work Phone: Comment on above: PATIENT WAS FASTINGP ERFORMED BY: [address] [id number] Information: NURSE DRAW; wellness labs Hemoglobin (Bld) [Mass/Vol] 16.0 g/dL Normal 13.0-17.7 [facility]; [facility] Work Phone: Comment on above: PATIENT WAS FASTINGP ERFORMED BY: [address] [id number] Information: NURSE DRAW; wellness labs Immature granulocytes (Bld) [#/Vol] 0.0 10*3/uL Normal 0.0-0.1 [facility]; [facility] Work Phone: Comment on above: PATIENT WAS FASTINGP ERFORMED BY: [address] [id number] Information: NURSE DRAW; wellness labs Immature granulocytes/100 WBC (Bld) 0 % Normal [facility]; [facility] Work Phone: Comment on above: PATIENT WAS FASTINGP ERFORMED BY: [address] [id number] Information: NURSE DRAW; wellness labs Lymphocytes (Bld) [#/Vol] 1.5 10*3/uL Normal 0.7-3.1 [facility]; [facility] Work Phone: Comment on above: PATIENT WAS FASTINGP ERFORMED BY: CLIFF [facility] HospitalLuis EduardoRobert Ville [id number] [facility] [id number] Information: NURSE DRAW; wellness labs Lymphocytes/100 WBC (Bld) 19 % Normal [facility]; [facility] Work Phone: Comment on above: PATIENT WAS FASTINGP ERFORMED BY: CLIFF [facility] HospitalLuis Eduardo[address] [id number] Information: NURSE DRAW; wellness labs MCH (RBC) [Entitic mass] 33.7 pg Abnormal 26.6-33.0 [facility]; [facility] Work Phone: Comment on above: PATIENT WAS FASTINGP ERFORMED BY: CLIFF Ramos [address] [id number] Information: NURSE DRAW; wellness labs MCHC (RBC) [Mass/Vol] 33.8 g/dL Normal 31.5-35.7 [facility]; [facility] Work Phone: Comment on above: PATIENT WAS FASTINGP ERFORMED BY: CLIFF [address] [id number] Information: NURSE DRAW; wellness labs MCV (RBC) [Entitic vol] 100 fL Abnormal 79-97 [facility]; [facility] Work Phone: Comment on above: PATIENT WAS FASTINGP ERFORMED BY: CLIFF Ma[address] [id number] Information: NURSE DRAW; wellness labs Monocytes (Bld) [#/Vol] 0.5 10*3/uL Normal 0.1-0.9 [facility]; [facility] Work Phone: Comment on above: PATIENT WAS FASTINGP ERFORMED BY: CLIFF [facility] HospitalGavino [address] [id number] Information: NURSE DRAW; wellness labs Monocytes/100 WBC (Bld) 6 % Normal [facility]; [facility] Work Phone: Comment on above: PATIENT WAS FASTINGP ERFORMED BY: [facility] [id number] Information: NURSE DRAW; wellness labs Neutrophils (Bld) [#/Vol] 5.3 10*3/uL Normal 1.4-7.0 [facility]; [facility] Work Phone: Comment on above: PATIENT WAS FASTINGP ERFORMED BY: [address] [id number] Information: NURSE DRAW; wellness labs Neutrophils/100 WBC (Bld) 70 % Normal [facility]; [facility] Work Phone: Comment on above: PATIENT WAS FASTINGP ERFORMED BY: [address] [id number] Information: NURSE DRAW; wellness labs Platelets (Bld) [#/Vol] 226 10*3/uL Normal 150-450 [facility]; [facility] Work Phone: Comment on above: PATIENT WAS FASTINGP ERFORMED BY: [address] [id number] Information: NURSE DRAW; wellness labs RBC (Bld) [#/Vol] 4.75 10*6/uL Normal 4.14-5.80 [facility] Internal [facility]; [facility] Work Phone: Comment on above: PATIENT WAS FASTINGP ERFORMED BY: [address] [id number] Information: NURSE DRAW; wellness labs WBC (Bld) [#/Vol] 7.6 10*3/uL Normal 3.4-10.8 [facility]; [facility] Work Phone: Comment on above: PATIENT WAS FASTINGP ERFORMED BY: [place] [id number] [facility] [id number] Information: NURSE DRAW; wellness labs METABOLIC PANEL, COMPREHENSI VE ([id number])Ordered By: [place] on 06-05-2021 Albumin [Mass/Vol] 4.7 g/dL Normal 3.7-4.7 [facility]; [facility] Work Phone: Comment on above: PATIENT WAS FASTINGP ERFORMED BY: CB [facility] [id number] Rodas RoadDublin [place] [id number] Albumin/Globulin [Mass ratio] 2.2 {ratio} Normal 1.2-2.2 [facility]; [facility] Work Phone: Comment on above: PATIENT WAS FASTINGP ERFORMED BY: CB [facility] [id number] Rodas RoadDublin [place] [id number] ALP [Catalytic activity/Vol] 89 U/L Normal 44-121 [facility]; [facility] Work Phone: Comment on above: Please note refere nce interval change PATIENT WAS FASTINGP ERFORMED BY: CB [facility] [id number] Rodas RoadDublin [place] [id number] ALT [Catalytic activity/Vol] 15 U/L Normal 0-44 [facility]; [facility] Work Phone: Comment on above: PATIENT WAS FASTINGP ERFORMED BY: CB [facility] [id number] Rodas RoadDublin [place] [id number] AST [Catalytic activity/Vol] 17 U/L Normal 0-40 [facility]; [facility] Work Phone: Comment on above: PATIENT WAS FASTINGP ERFORMED BY: CB [facility] [id number] Rodas RoadDublin [place] [id number] Bilirubin [Mass/Vol] 0.3 mg/dL Normal 0.0-1.2 [facility]; [facility] Work Phone: Comment on above: PATIENT WAS FASTINGP ERFORMED BY: CB [facility] [id number] Rodas RoadDublin [place] [id number] Calcium [Mass/Vol] 9.7 mg/dL Normal 8.6-10.2 [facility]; [facility] Work Phone: Comment on above: PATIENT WAS FASTINGP ERFORMED BY: CB [facility] [id number] Rodas RoadDublin [place] [id number] Chloride [Moles/Vol] 104 mmol/L Normal 96-106 Comp [facility] Internal [facility]; [facility] Work Phone: Comment on above: PATIENT WAS FASTINGP ERFORMED BY: [facility] [id number] [facility] [id number] CO2 [Moles/Vol] 21 mmol/L Normal 20-29 [facility] Internal [facility]; [facility] Work Phone: Comment on above: PATIENT WAS FASTINGP ERFORMED BY: [facility] [id number] Creatinine [Mass/Vol] 1.00 mg/dL Normal 0.76-1.27 [facility] prehensive Internal Medicine; [facility] Work Phone: Comment on above: PATIENT WAS FASTINGP ERFORMED BY: [facility]6370 [facility] [id number] GFR/1.73 sq M.predicted among blacks CKD-EPI (S/P/Bld) [Vol rate/Area] 84 mL/min/1.73 Normal [facility]; [facility] Work Phone: Comment on above: [facility] currently reports eGFR in compliance with the current recommendations of the National Kidney Foundation. [facility] will update reporting as new guidelines are published from the NKF-ASN Task force. PATIENT WAS FASTINGP ERFORMED BY: [facility]6370 [facility] [id number] GFR/1.73 sq M.predicted among non-blacks CKD-EPI (S/P/Bld) [Vol rate/Area] 73 mL/min/1.73 Normal [facility]; [facility] Work Phone: Comment on above: PATIENT WAS FASTINGP ERFORMED BY: [facility]6370 [facility] [id number] Globulin (S) [Mass/Vol] 2.1 g/dL Normal 1.5-4.5 [facility]; [facility] Work Phone: Comment on above: PATIENT WAS FASTINGP ERFORMED BY: [facility]6370 [facility]in [place] [id number] Glucose [Mass/Vol] 87 mg/dL Normal 65-99 [facility]; [facility] Work Phone: Comment on above: PATIENT WAS FASTINGP ERFORMED BY: CLIFF Johnsonlin6[address]Dublin [place] [id number] Potassium [Moles/Vol] 4.0 mmol/L Normal 3.5-5.2 [facility] Internal [facility]; [facility] Work Phone: Comment on above: PATIENT WAS FASTINGP ERFORMED BY: CB [facility] [id number] [address] RoadDublin [place] [id number] Protein [Mass/Vol] 6.8 g/dL Normal 6.0-8.5 [facility]; [facility] Work Phone: Comment on above: PATIENT WAS FASTINGP ERFORMED BY: CLIFF [facility] [id number] Rodas RoadDublin [place] [id number] Sodium [Moles/Vol] 139 mmol/L Normal 134-144 [facility]; [facility] Work Phone: Comment on above: PATIENT WAS FASTINGP ERFORMED BY: CLIFF [facility] [id number] [address] RoadDublin [place] [id number] Urea nitrogen [Mass/Vol] 21 mg/dL Normal 8-27 [facility]; [facility] Work Phone: Comment on above: PATIENT WAS FASTINGP ERFORMED BY: CB [facility] [id number] Rodas RoadDublin [place] [id number] Urea nitrogen/Creatinine [Mass ratio] 21 mg/mg Normal 10-24 [facility]; [facility] Work Phone: Comment on above: PATIENT WAS FASTINGP ERFORMED BY: CLIFF [facility] Fndcho[address] [facility] Centerblin [place] [id number] Office Visit: hernia repair f/uon 04-30-2017 Documentation of current medications (procedure) Done Invalid Interpretation Code [facility] Work Phone: Fall risk assessment No Invalid Interpretation Code [facility] Work Phone: Tobacco smoking status NHIS Never Invalid Interpretation Code [facility] [employer] Work Phone: Tobacco use [facility] Never smoker Invalid Interpretation Code [facility] [employer] Work Phone: Office Visiton 04-15-2017 Documentation of current medications (procedure) Done Invalid Interpretation Code [facility] [employer] Work Phone: Fall risk assessment No Invalid Interpretation Code [facility] [employer] Work Phone: Tobacco smoking status NHIS Never Invalid Interpretation Code [facility] [employer] Work Phone: Tobacco use [facility] Never smoker Invalid [facility] [employer] Work Phone: Flow Cytometryon 2017 Comment See Below Normal [facility] Comment on above: Result Comment: Viab ility 7AAD = 92%The B-cells are polytypic and the T-cells show no elmore T-cellantigen deletion. CD4/CD8 ratio is 1.8:1. CD56+ NK-cells andCD57+ T-LGL's are within normal limits. Performed By: #### F LOWG ####[place] [address] Flow Cytometry Rslt: See Sep Report Normal [facility] Comment on above: Result Comment: Thes [...] [facility] Naseem Jackson M.D., Pressure Washer [address] [place] [address] Performed By: #### F LOWG ####[place] [id number] Interpretation: See Below [facility] Comment on above: Result Comment: In t he sample analyzed, there is no evidence of B or T-celllymphoproliferative disorders. Performed By: #### F LOWG ####[address] [address] Flow Cytometryon 04-10-2017 Source: Blood Normal [facility] Comment on above: Performed By: #### F LOWG ####[address] [address] [place] Venipunctureon 017 Green Venipuncture COMPLETED Normal [facility] Comment on above: Performed By: #### G VENP ####[address] [address] LD,Total Bloodon 04-09-2017 LD,Total Blood 207 U/L Normal 84-246 [facility] Comment on above: Performed By: #### L DH ####[address] [address] Oncology Hemogram/Diffon Basophils Auto #/vol (Bld) 0.04 thou/cmm Normal 0.00-0.08 [facility] Comment on above: Performed By: #### G OHEM ####[address] [address] Basophils/100 WBC Auto (Bld) 0.6 % Normal [facility] Comment on above: Performed By: #### G OHEM ####[address] [address] Eosinophils 0.35 thou/cmm Normal 0.00-0.36 [facility] Comment on above: Performed By: #### G OHEM ####[address] [address] Eosinophils/100 leukocytes 5.1 % Normal [facility] Comment on above: Performed By: #### G OHEM ####[address] [address] Erythrocyte distribution width Auto Ratio (RBC) 11.7 % Low 11.8-14.5 [facility] Comment on above: Performed By: #### G OHEM ####[address] [address] Erythrocytes (RBC) 4.68 mil/cmm Normal 4.22-5.80 [facility] Comment on above: Performed By: #### G OHEM ####[facility] [place], [place] [address] Hematocrit (HCT) 44.7 % Normal 39.6-50.7 [facility] Comment on above: Performed By: #### G OHEM ####[place] [address] Hemoglobin mass conc (Bld) 16.2 g/dL Normal 13.2-17.4 [facility] Comment on above: Performed By: #### G OHEM ####[place] [address] Lymphocytes 1.63 thou/cmm Normal 0.68-2.93 [facility] Comment on above: Performed By: #### G OHEM ####[place] [address] Lymphocytes/100 leukocytes 24.0 % Normal [facility] Comment on above: Performed By: #### G OHEM ####[place] [address] MCH 34.6 pg High 27.4-32.8 [facility] Comment on above: Performed By: #### G OHEM ####[place] [address] MCHC mass conc (RBC) 36.2 % High 31.9-35.6 [facility] Comment on above: Performed By: #### G OHEM ####[place] [address] MCV 95.5 fL Normal 81.8-95.6 [facility] Comment on above: Performed By: #### G OHEM ####[place] [address] Monocytes 0.50 thou/cmm Normal 0.19-0.80 [facility] Comment on above: Performed By: #### G OHEM ####[place] [address] Monocytes/100 leukocytes 7.4 % Normal [facility] Comment on above: Performed By: #### G OHEM ####[facility] [place] [address] Platelet mean volume (PMV) 11.0 fL Normal 8.8-12.1 [facility] Comment on above: Performed By: #### G OHEM ####[facility] [place], [place] [address] Platelets 201 thou/cmm Normal 150-370 [facility] Comment on above: Performed By: #### G OHEM ####[facility] [place] [address] Seg Neutrophil 62.9 % Normal [facility] Comment on above: Performed By: #### G OHEM ####[facility] [place] [address] Seg. Neut.# 4.28 thou/cmm Normal 1.35-7.21 [facility] Comment on above: Performed By: #### G OHEM ####[place] [address] WBC (Leukocytes) 6.8 thou/cmm Normal 4.4-9.7 [facility] Comment on above: Performed By: #### G OHEM ####[place] [address] Uric Acid Bloodon 04-09-2017 Uric Acid Blood 5.6 mg/dL Normal 3.5-7.2 [facility] Comment on above: Performed By: #### U OLIVIA ####[place] [address] Replaced Document: Siddharth FARAH Observationson 09-25-2016 electrocardiogram interpretation Sinus Rhythm Voltage criteria for LVH (R(V5) exceeds 2.60 mV). -Nonspecific ST depression -Seen with left ventricular hypertrophy (strain) or digitalis effect. ABNORMAL Invalid Interpretation Code [facility] Work Phone: GE use only - for [employer] import when terms are not otherwise specified 436 ms Invalid Interpretation Code [facility] Work Phone: P wave axis, electrocardiogram 69 deg Invalid Interpretation Code [facility] Work Phone: FL interval, electrocardiogram 170 ms Invalid Interpretation Code [facility] Work Phone: Pulse (Heart Rate) 66 /min Invalid Interpretation Code [facility] Work Phone: QRS axis, electrocardiogram 19 deg Invalid Interpretation Code [facility] Work Phone: QRS duration, electrocardiogram 94 ms Invalid Interpretation Code [facility] Work Phone: QT interval, electrocardiogram new path ms Invalid Interpretation Code [facility] Work Phone: T wave axis, electrocardiogram 41 deg Invalid Interpretation Code [facility] Work Phone: Clinical Lists Update: Prelo director environmental 09-21-2016 Left ventricular Ejection fraction 55 % Invalid Interpretation Code [facility] Work Phone: Clinical Lists Update: Prelo director environmental 06-27-2016 Cholesterol 191 mg/dL Invalid Interpretation Code [facility] Work Phone: HDL Cholesterol 76 mg/dL Invalid Interpretation Code [facility] Work Phone: LDL Cholesterol 101 mg/dL Invalid Interpretation Code [facility] Work Phone: Triglyceride 69 mg/dL Invalid Interpretation Code [facility] Work Phone: Office Visiton 09-23-2015 General cardiovascular disease 10Y risk [#] [place].D'Agostino 6 % Invalid Interpretation Code [facility] Work Phone: Lab Report: Lipid Profileon 09-17-2015 very low density lipoproteins 12 mg/dL Invalid Interpretation Code 5-40 [facility] Work Phone: Lab Report: Liver Profileon 09-17-2015 Alanine aminotransferase (ALT) 28 U/L Invalid Interpretation Code 12-78 [facility] Work Phone: Albumin 3.8 g/dL Invalid Interpretation Code 3.4-5.0 [facility] Work Phone: Alkaline phosphatase (ALP) 75 U/L Invalid Interpretation Code 50-136 [facility] Work Phone: Aspartate aminotransferase (AST) 18 U/L Invalid Interpretation Code 15-37 [facility] Work Phone: Bilirubin (direct) 0.14 mg/dL Invalid Interpretation Code 0.00-0.30 [facility] Work Phone: Bilirubin (total) 0.50 mg/dL Invalid Interpretation Code 0.20-1.00 [facility] Work Phone: Globulin 3.4 g/dL Invalid Interpretation Code 2.3-3.5 [facility] Work Phone: Protein 7.2 g/dL Invalid Interpretation Code 6.4-8.2 [facility] Work Phone: Lab Reporton 07-02-2015 Chloride 105 mmol/L Invalid Interpretation Code [facility] Work Phone: CO2 23.0 mmol/L Invalid Interpretation Code [facility] Work Phone: Creatinine 1.19 mg/dL Invalid Interpretation Code [facility] Work Phone: Potassium 4.0 mmol/L Invalid Interpretation Code [facility] Work Phone: Sodium 140 mmol/L Invalid Interpretation Code [facility] Work Phone: Urea nitrogen 21 mg/dL Invalid Interpretation Code [facility] Work Phone: Office Visiton 08-17-2014 cardiac risk group B Invalid Interpretation Code [facility] Work Phone: Clinical Lists Update: Prelo director environmental 06-04-2014 Anion gap 9 mmol/L Invalid Interpretation Code [facility] Work Phone: BUN/Creatinine Ratio 17.3 mg/mg Invalid Interpretation Code [facility] Work Phone: Erythrocytes (RBC) 4.56 10*6/uL Low [facility] Work Phone: Glucose 84 mg/dL Invalid Interpretation Code [facility] Work Phone: Hematocrit (HCT) 44.2 % Invalid Interpretation Code [facility] Work Phone: Hemoglobin (HGB) 15.9 g/dL Invalid Interpretation Code [facility] Work Phone: MCH 34.9 pg High [facility] Work Phone: MCHC 36.0 g/dL Invalid Interpretation Code [facility] Work Phone: MCV 96.9 fL High [facility] Work Phone: Platelets 225 10*3/mm3 Invalid Interpretation Code [facility] Work Phone: Thyroid stimulating hormone (TSH) 1.72 u[iU]/mL Invalid Interpretation Code [facility] Work Phone: WBC (Leukocytes) 5.6 10*3/uL Invalid Interpretation Code [facility] Work Phone: Clinical Lists Update: Prelo director environmental 06-06-2012 Albumin/Globulin Ratio 1.1 {ratio} Invalid Interpretation Code [facility] Work Phone: basophils as percent of blood leukocytes, manual count 0.9 % Invalid Interpretation Code [facility] Work Phone: Calcium 9.1 mg/dL Invalid Interpretation Code [facility] Work Phone: eosinophils as percent of blood leukocytes, manual count 7.1 % High [facility] Work Phone: Globulin 3.5 g/dL Invalid Interpretation Code [facility] Work Phone: Lymphocytes/100 leukocytes 26.3 % Invalid Interpretation Code [facility] Work Phone: Monocytes/100 leukocytes 6.5 % Invalid Interpretation Code [facility] Work Phone: neutrophils, band form as percent of blood leukocytes, manual count 59.2 % Invalid Interpretation Code [facility] Work Phone: Office Visiton 04-17-2012 Colonoscopy (procedure) Colonoscopy (procedure) Invalid Interpretation Code [facility] Work Phone: Vital Signs Date Time Vital Sign Value Performing Clinician Facility 04-23-2025 09:49-0400 Body temperature 97.2 [degF] Dr. Francheska Alonzo DO Work Phone: [facility] 04-23-2025 09:49-0400 Diastolic blood pressure 83 mm[Hg] Dr. Francheska Alonzo DO Work Phone: [facility] 04-23-2025 09:49-0400 Heart rate 106 /min Dr. Francheska Alonzo DO Work Phone: [facility] 04-23-2025 09:49-0400 SaO2% (BldA) [Mass fraction] 100 % Dr. Francheska Alonzo DO Work Phone: [facility] 04-23-2025 09:49-0400 Systolic blood pressure 172 mm[Hg] Dr. Francheska Alonzo DO Work Phone: [facility] 04-15-2025 13:03-0400 Body height 182.[address] Francheska Alonzo DO Work Phone: [facility] 04-15-2025 13:03-0400 Body mass index (BMI) [Ratio] 22.5 kg/m2 Dr. Francheska Alonzo DO Work Phone: [facility] 04-15-2025 13:03-0400 Body weight 75.[address] Francheska Alonzo DO Work Phone: [facility] 04-15-2025 13:03-0400 Diastolic blood pressure 79 mm[Hg] Dr. Francheska Alonzo DO Work Phone: [facility] 04-15-2025 13:03-0400 Heart rate 51 /min Dr. Francheska Alonzo DO Work Phone: [facility] 04-15-2025 13:03-0400 Respiratory rate 17 /min Dr. Francheska Alonzo DO Work Phone: [facility] 04-15-2025 13:03-0400 Systolic blood pressure 132 mm[Hg] Dr. Francheska Alonzo DO Work Phone: [facility] 03-02-2025 07:20-0400 Body temperature 97.8 [degF] Dr. Francheska Alonzo DO Work Phone: [facility] 03-02-2025 07:20-0400 Diastolic blood pressure 85 mm[Hg] Dr. Francheska Alonzo DO Work Phone: [facility] 03-02-2025 07:20-0400 Heart rate 55 /min Dr. Francheska Alonzo DO Work Phone: [facility] 03-02-2025 07:20-0400 Respiratory rate 18 /min Dr. Francheska Alonzo DO Work Phone: [facility] 03-02-2025 07:20-0400 SaO2% (BldA) [Mass fraction] 100 % Dr. Francheska Alonzo DO Work Phone: [facility] 03-02-2025 07:20-0400 Systolic blood pressure 125 mm[Hg] Dr. Francheska Alonzo DO Work Phone: [facility] 03-02-2025 07:15-0400 Inhaled oxygen flow rate 95 L/min Dr. Francheska Alonzo DO Work Phone: [facility] 03-02-2025 06:01-0400 Body height 182.[address] Francheska Alonzo DO Work Phone: [facility] 03-02-2025 06:01-0400 Body mass index (BMI) [Ratio] 23.1 kg/m2 Dr. Franhceska Alonzo DO Work Phone: [facility] 03-02-2025 06:01-0400 Body weight 77.[address] Francheska Alonzo DO Work Phone: [facility] 01-26-2025 12:59-0400 Body height 182.[address] Francheska Alonzo DO Work Phone: [facility] 01-26-2025 12:59-0400 Body mass index (BMI) [Ratio] 23 kg/m2 Dr. Francheska Alonzo DO Work Phone: [facility] 01-26-2025 12:59-0400 Body weight 77.[address] Francheska Alonzo DO Work Phone: [facility] 01-26-2025 12:59-0400 Diastolic blood pressure 67 mm[Hg] Dr. Francheska Alonzo DO Work Phone: [facility] 01-26-2025 12:59-0400 Heart rate 55 /min Dr. Francheska Alonzo DO Work Phone: [facility] 01-26-2025 12:59-0400 Respiratory rate 16 /min Dr. Francheska Alonzo DO Work Phone: [facility] 01-26-2025 12:59-0400 Systolic blood pressure 103 mm[Hg] Dr. Francheska Alonzo DO Work Phone: [facility] 12-03-2023 13:04-0400 Body height 182.[address] Pritchard Fast Work Phone: [facility] 12-03-2023 13:04-0400 Body mass index (BMI) [Ratio] 23.2 kg/m2 Dr. Pritchard Fast Work Phone: [facility] 12-03-2023 13:04-0400 Body weight 77.[address] Pritchard Fast Work Phone: [facility] 12-03-2023 13:04-0400 Diastolic blood pressure 74 mm[Hg] Dr. Francheska Alonzo Work Phone: [facility] 12-03-2023 13:04-0400 Heart rate 55 /min Dr. Pritchard Fast Work Phone: [facility] 12-03-2023 13:04-0400 Respiratory rate 16 /min Dr. Pritchard Fast Work Phone: [facility] 12-03-2023 13:04-0400 Systolic blood pressure 126 mm[Hg] Dr. Pritchard Fast Work Phone: [facility] 08-05-2023 15:02-0500 Body height 182.[address] Pritchard Fast Work Phone: [facility] 08-05-2023 15:02-0500 Body mass index (BMI) [Ratio] 23.2 kg/m2 Dr. Pritchard Fast Work Phone: [facility] 08-05-2023 15:02-0500 Body weight 77.[address] Francheska Alonzo Work Phone: [facility] 08-05-2023 15:02-0500 Respiratory rate 16 /min Dr. Francheska Alonzo Work Phone: [facility] 06-03-2023 11:02-0400 Body height 185.42 cm Naida Montenegor [facility] Work Phone: 06-03-2023 11:02-0400 Body mass index (BMI) [Ratio] 23.27 kg/m2 Naida Montenegro [facility] Work Phone: 06-03-2023 11:02-0400 Body surface area Derived from formula 2.04 m2 Naida Montenegro [facility] Work Phone: 06-03-2023 11:02-0400 Body temperature 99 [degF] Naida Montenegro [facility] Work Phone: Comment on above: Method: Thermal Scan 06-03-2023 11:02-0400 Body weight 80 kg Naida Montenegro [facility] Work Phone: 06-03-2023 11:02-0400 Diastolic blood pressure 70 mm[Hg] Naidaeris Montenegro [facility] Work Phone: Comment on above: Patient Position: Sitting; Cuff Location : Left Arm; Cuff Size: Standard 06-03-2023 11:02-0400 Heart rate 61 /min Naida Montenegro [facility] Work Phone: Comment on above: Pattern: Regular 06-03-2023 11:02-0400 Respiratory rate 16 /min Naida Montenegro [facility] Work Phone: Comment on above: Pattern: Unlabored 06-03-2023 11:02-0400 Systolic blood pressure 104 mm[Hg] Naida Montenegro [facility] Work Phone: Comment on above: Patient Position: Sitting; Cuff Location : Left Arm; Cuff Size: Standard 02-25-2023 12:54-0400 Body height 182.[address] Francheska Alonzo Work Phone: [facility] 02-25-2023 12:54-0400 Body mass index (BMI) [Ratio] 24 kg/m2 Dr. Francheska Alonzo Work Phone: [facility] 02-25-2023 12:54-0400 Body weight 80.[address] Francheska Alonzo Work Phone: [facility] 02-25-2023 12:54-0400 Diastolic blood pressure 75 mm[Hg] Dr. Francheska Alonzo Work Phone: [facility] 02-25-2023 12:54-0400 Heart rate 52 /min Dr. Francheska Alonzo Work Phone: [facility] 02-25-2023 12:54-0400 SaO2% (BldA) [Mass fraction] 96 % Dr. Francheska Alonzo Work Phone: [facility] 02-25-2023 12:54-0400 Systolic blood pressure 143 mm[Hg] Dr. Francheska Alonzo Work Phone: [facility] 02-25-2023 10:38-0400 Body height 185.42 cm Naida Montenegro [facility] Work Phone: 02-25-2023 10:38-0400 Body mass index (BMI) [Ratio] 23.22 kg/m2 Naida Montenegro [facility] Work Phone: 02-25-2023 10:38-0400 Body surface area Derived from formula 2.04 m2 Naida Montenegro [facility] Work Phone: 02-25-2023 10:38-0400 Body temperature 98.2 [degF] Naida Montenegro [facility] Work Phone: Comment on above: Method: Thermal Scan 02-25-2023 10:38-0400 Body weight 79.83 kg Naida Montenegro [facility] Work Phone: 02-25-2023 10:38-0400 Diastolic blood pressure 70 mm[Hg] Naida Montenegro [facility] Work Phone: Comment on above: Patient Position: Sitting; Cuff Location : Left Arm; Cuff Size: Standard 02-25-2023 10:38-0400 Heart rate 63 /min Naida Montenegro [facility] Work Phone: Comment on above: Pattern: Regular 02-25-2023 10:38-0400 Respiratory rate 16 /min Naida Montenegro [facility] Work Phone: Comment on above: Pattern: Unlabored 02-25-2023 10:38-0400 SaO2% (BldA) [Mass fraction] 99 % Naida Montenegro [facility] Work Phone: Comment on above: Room air 02-25-2023 10:38-0400 Systolic blood pressure 118 mm[Hg] Naida Montenegro [facility] Work Phone: Comment on above: Patient Position: Sitting; Cuff Location : Left Arm; Cuff Size: Standard 02-13-2023 08:28-0400 Body temperature 97.6 [degF] Dr. Pritchard Fast Work Phone: [facility] 02-13-2023 08:28-0400 Diastolic blood pressure 86 mm[Hg] Dr. Pritchard Fast Work Phone: [facility] 02-13-2023 08:28-0400 Heart rate 54 /min Dr. Pritchard Fast Work Phone: [facility] 02-13-2023 08:28-0400 Respiratory rate 16 /min Dr. Pritchard Fast Work Phone: [facility] 02-13-2023 08:28-0400 SaO2% (BldA) [Mass fraction] 99 % Dr. Pritchard Fast Work Phone: [facility] 02-13-2023 08:28-0400 Systolic blood pressure 135 mm[Hg] Dr. Pritchard Fast Work Phone: [facility] 02-13-2023 06:48-0400 Body height 182.[address] Pritchard Fast Work Phone: [facility] 02-13-2023 06:48-0400 Body mass index (BMI) [Ratio] 23.9 kg/m2 Dr. Pritchard Fast Work Phone: [facility] 02-13-2023 06:48-0400 Body weight [address] Pritchard Fast Work Phone: [facility] 01-14-2023 13:34-0400 Body mass index (BMI) [Ratio] 21.7 kg/m2 Dr. Pritchard Fast Work Phone: [facility] 01-14-2023 13:34-0400 Body weight 72.[address] Pritchard Fast Work Phone: [facility] 01-14-2023 13:34-0400 Diastolic blood pressure 79 mm[Hg] Dr. Pritchard Fast Work Phone: [facility] 01-14-2023 13:34-0400 Heart rate 61 /min Dr. Pritchard Fast Work Phone: [facility] 01-14-2023 13:34-0400 SaO2% (BldA) [Mass fraction] 98 % Dr. Pritchard Fast Work Phone: [facility] 01-14-2023 13:34-0400 Systolic blood pressure 133 mm[Hg] Dr. Pritchard Fast Work Phone: [facility] 12-03-2022 10:08-0400 Body height 184.[address] Pritchard Fast Work Phone: [facility] 12-03-2022 10:08-0400 Body weight 75.[address] Pritchard Fast Work Phone: [facility] 12-03-2022 06:55-0400 Body mass index (BMI) [Ratio] 21.9 kg/m2 Dr. Pritchard Fast Work Phone: [facility] 11-29-2022 12:53-0400 Body mass index (BMI) [Ratio] 22.3 kg/m2 Dr. Pritchard Fast Work Phone: [facility] 11-29-2022 12:53-0400 Body weight 76.[address] Pritchard Fast Work Phone: [facility] 11-29-2022 12:53-0400 Diastolic blood pressure 72 mm[Hg] Dr. Pritchard Fast Work Phone: [facility] 11-29-2022 12:53-0400 Heart rate 55 /min Dr. Pritchard Fast Work Phone: [facility] 11-29-2022 12:53-0400 Respiratory rate 18 /min Dr. Pritchard Fast Work Phone: [facility] 11-29-2022 12:53-0400 SaO2% (BldA) [Mass fraction] 100 % Dr. Francheska Alonzo Work Phone: [facility] 11-29-2022 12:53-0400 Systolic blood pressure 133 mm[Hg] Dr. Francheska Alonzo Work Phone: [facility] 11-12-2022 10:23-0500 Body height 185.42 cm Naida Montenegro [facility] Work Phone: 11-12-2022 10:23-0500 Body mass index (BMI) [Ratio] 23.09 kg/m2 Naida Montenegro [facility] Work Phone: 11-12-2022 10:23-0500 Body surface area Derived from formula 2.03 m2 Naida Montenegro [facility] Work Phone: 11-12-2022 10:23-0500 Body temperature 98.4 [degF] Naida Montenegro [facility] Work Phone: Comment on above: Method: Thermal Scan 11-12-2022 10:23-0500 Body weight 79.38 kg Naida Montenegro [facility] Work Phone: 11-12-2022 10:23-0500 Diastolic blood pressure 68 mm[Hg] Naida Montenegro [facility] Work Phone: Comment on above: Patient Position: Sitting; Cuff Location : Left Arm; Cuff Size: Standard 11-12-2022 10:23-0500 Heart rate 70 /min Naida Montenegro [facility] Work Phone: Comment on above: Pattern: Regular 11-12-2022 10:23-0500 Respiratory rate 16 /min Naida Montenegro [facility] Work Phone: Comment on above: Pattern: Unlabored 11-12-2022 10:23-0500 Systolic blood pressure 120 mm[Hg] Naida Montenegro [facility] Work Phone: Comment on above: Patient Position: Sitting; Cuff Location : Left Arm; Cuff Size: Standard 10-16-2022 14:07-0500 Body mass index (BMI) [Ratio] 23.2 kg/m2 Dr. Francheska Alonzo Work Phone: [facility] 10-16-2022 14:07-0500 Body weight 79.[address] Pritchard Fast Work Phone: [facility] 10-16-2022 14:07-0500 Diastolic blood pressure 67 mm[Hg] Dr. Pritchard Fast Work Phone: [facility] 10-16-2022 14:07-0500 Heart rate 59 /min Dr. Pritchard Fast Work Phone: [facility] 10-16-2022 14:07-0500 Respiratory rate 18 /min Dr. Francheska Fast Work Phone: [facility] 10-16-2022 14:07-0500 Systolic blood pressure 125 mm[Hg] Dr. Francheska Alonzo Work Phone: [facility] 07-30-2022 13:24-0500 Body height 185.42 cm Naida Montenegro [facility] Work Phone: 07-30-2022 13:24-0500 Body mass index (BMI) [Ratio] 22.69 kg/m2 Naida Montenegro [facility] Work Phone: 07-30-2022 13:24-0500 Body surface area Derived from formula 2.02 m2 Naida Montenegro [facility] Work Phone: 07-30-2022 13:24-0500 Body temperature 97 [degF] Naida Montenegro [facility] Work Phone: Comment on above: Method: Thermal Scan 07-30-2022 13:24-0500 Body weight 78.02 kg Naida Isaisofia [facility] Work Phone: 07-30-2022 13:24-0500 Diastolic blood pressure 72 mm[Hg] Naida Isaisofia [facility] Work Phone: Comment on above: Patient Position: Sitting; Cuff Location : Left Arm; Cuff Size: Standard 07-30-2022 13:24-0500 Heart rate 68 /min Naida Montenegro [facility] Work Phone: Comment on above: Pattern: Regular 07-30-2022 13:24-0500 Respiratory rate 16 /min Naida Montenegro [facility] Work Phone: Comment on above: Pattern: Unlabored 07-30-2022 13:24-0500 Systolic blood pressure 118 mm[Hg] Naida Montenegro [facility] Work Phone: Comment on above: Patient Position: Sitting; Cuff Location : Left Arm; Cuff Size: Standard 04-10-2022 09:35-0400 Body height 185.4 cm Mal Joseph MD Work Phone: [facility] 04-10-2022 09:35-0400 Body weight 79.29 kg Mal Joseph MD Work Phone: [facility] 04-10-2022 09:35-0400 Diastolic blood pressure 84 mm[Hg] Mal Joseph MD Work Phone: [facility] 04-10-2022 09:35-0400 Heart rate 76 /min Mal Joseph MD Work Phone: [facility] 04-10-2022 09:35-0400 SaO2% (BldA) [Mass fraction] 98 % Mal Joseph MD Work Phone: [facility] 04-10-2022 09:35-0400 Systolic blood pressure 136 mm[Hg] Mal Joseph MD Work Phone: [facility] 03-23-2022 10:11-0400 Body height 185.42 cm [facility] Work Phone: 03-23-2022 10:11-0400 Body mass index (BMI) [Ratio] 22.69 kg/m2 [facility] Work Phone: 03-23-2022 10:11-0400 Body surface area Derived from formula 2.02 m2 [facility] Work Phone: 03-23-2022 10:11-0400 Body temperature 97 [degF] [facility] Work Phone: Comment on above: Method: Thermal Scan 03-23-2022 10:11-0400 Body weight 78.02 kg [facility] Work Phone: 07-15-2022 10:11-0400 Diastolic blood pressure 62 mm[Hg] Naida Montenegro [facility] Work Phone: Comment on above: Patient Position: Sitting; Cuff Location : Left Arm; Cuff Size: Standard 03-23-2022 10:11-0400 Heart rate 62 /min Naida Montenegro [facility] Work Phone: Comment on above: Pattern: Regular 03-23-2022 10:11-0400 Respiratory rate 16 /min Naida Montenegro [facility] Work Phone: Comment on above: Pattern: Unlabored 03-23-2022 10:11-0400 Systolic blood pressure 104 mm[Hg] Naida Montenegro [facility] Work Phone: Comment on above: Patient Position: Sitting; Cuff Location : Left Arm; Cuff Size: Standard 01-24-2022 11:00-0400 Body height 185.42 cm Naida Montenegro [facility] Work Phone: 01-24-2022 11:00-0400 Body mass index (BMI) [Ratio] 22.69 kg/m2 Naida Montenegro [facility] Work Phone: 01-24-2022 11:00-0400 Body surface area Derived from formula 2.02 m2 Naida Montenegro [facility] Work Phone: 01-24-2022 11:00-0400 Body temperature 96.9 [degF] Naida Montenegro [facility] Work Phone: Comment on above: Method: Thermal Scan 01-24-2022 11:00-0400 Body weight 78.02 kg Naida Montenegro [facility] Work Phone: 01-24-2022 11:00-0400 Diastolic blood pressure 70 mm[Hg] Naida Montenegro [facility] Work Phone: Comment on above: Patient Position: Sitting; Cuff Location : Left Arm; Cuff Size: Standard 01-24-2022 11:00-0400 Heart rate 66 /min Naida Montenegro [facility] Work Phone: Comment on above: Pattern: Regular 01-24-2022 11:00-0400 Respiratory rate 16 /min Naida Montenegro [facility] Work Phone: Comment on above: Pattern: Unlabored 01-24-2022 11:00-0400 Systolic blood pressure 120 mm[Hg] Naida Montenegro [facility] [facility] Work Phone: Comment on above: Patient Position: Sitting; Cuff Location : Left Arm; Cuff Size: Standard 01-10-2022 11:55-0400 Body temperature 97.3 [degF] Dr. Spike Mullen Work Phone: [facility] Work Phone: 01-10-2022 11:55-0400 Diastolic blood pressure 88 mm[Hg] Dr. Spike Mullen Work Phone: [facility] Work Phone: 01-10-2022 11:55-0400 Heart rate 62 /min Dr. Spike Mullen Work Phone: [facility] Work Phone: 01-10-2022 11:55-0400 Respiratory rate 16 /min Dr. Spike Mullen Work Phone: [facility] Work Phone: 01-10-2022 11:55-0400 SaO2% (BldA) [Mass fraction] 92 % Dr. Spike Mullen Work Phone: [facility] Work Phone: 01-10-2022 11:55-0400 Systolic blood pressure 135 mm[Hg] Dr. Spike Mullen Work Phone: [facility] Work Phone: 01-10-2022 10:18-0400 Body height 185.[address] Spike Mullen Work Phone: [facility] Work Phone: 01-10-2022 10:18-0400 Body mass index (BMI) [Ratio] 21.8 kg/m2 Dr. Spike Mullen Work Phone: [facility] Work Phone: 01-10-2022 10:18-0400 Body weight [address] Spike Mullen Work Phone: [facility] Work Phone: 10-25-2021 11:38-0500 Body height 185.42 cm Naida Montenegro [facility]; [facility] Work Phone: 10-25-2021 11:38-0500 Body mass index (BMI) [Ratio] 21.9 kg/m2 Naida Montenegro [facility]; [facility] Work Phone: 10-25-2021 11:38-0500 Body surface area Derived from formula 1.99 m2 Naida Montenegro [facility]; [facility] Work Phone: 10-25-2021 11:38-0500 Body temperature 97.1 [degF] Naida Montenegro [facility]; [facility] Work Phone: Comment on above: Method: Thermal Scan 10-25-2021 11:38-0500 Body weight 75.3 kg Naida Montenegro [facility]; [facility] Work Phone: 10-25-2021 11:38-0500 Diastolic blood pressure 70 mm[Hg] Naida Montenegro [facility]; [facility] Work Phone: Comment on above: Patient Position: Sitting; Cuff Location : Left Arm; Cuff Size: Standard 10-25-2021 11:38-0500 Heart rate 70 /min Naida Montenegro [facility]; [facility] Work Phone: Comment on above: Pattern: Regular 10-25-2021 11:38-0500 Respiratory rate 16 /min Naida Montenegro [facility]; [facility] Work Phone: Comment on above: Pattern: Unlabored 10-25-2021 11:38-0500 SaO2% (BldA) [Mass fraction] 97 % Naida Montenegro [facility]; [facility] Work Phone: Comment on above: Room air 10-25-2021 11:38-0500 Systolic blood pressure 118 mm[Hg] Naida Montenegro [facility]; [facility] Work Phone: Comment on above: Patient Position: Sitting; Cuff Location : Left Arm; Cuff Size: Standard 10-10-2021 12:15-0500 Diastolic blood pressure 85 mm[Hg] Dr. Spike Mullen Work Phone: [facility] Work Phone: 10-10-2021 12:15-0500 Systolic blood pressure 135 mm[Hg] Dr. Spike Mullen Work Phone: [facility] Work Phone: 10-10-2021 07:51-0500 Body weight 78.[address] Spike Mullen Work Phone: [facility] Work Phone: 10-10-2021 07:51-0500 Heart rate 74 /min Dr. Spike Mullen Work Phone: [facility] Work Phone: 10-10-2021 07:51-0500 Respiratory rate 16 /min Dr. Spike Mullen Work Phone: [facility] Work Phone: 10-10-2021 07:51-0500 SaO2% (BldA) [Mass fraction] 100 % Dr. Spike Mullen Work Phone: [facility] Work Phone: 07-11-2021 09:27-0400 Body height 185.42 [...] 13:10-0400 Body height 185.42 cm Yoko Slarb [employer] [facility]; [facility] Work Phone: 05-16-2021 13:10-0400 Body mass index (BMI) [Ratio] 22.3 kg/m2 Yoko Slarb [employer] [facility]; [facility] Work Phone: 05-16-2021 13:10-0400 Body surface area Derived from formula 2 m2 Yoko Slarb [employer] [facility]; [facility] Work Phone: 05-16-2021 13:10-0400 Body temperature 97.6 [degF] Yoko Slarb [employer] [facility]; [facility] Work Phone: 05-16-2021 13:10-0400 Body weight 76.66 kg Yoko Slarb [employer] [facility]; [facility] Work Phone: 05-16-2021 13:10-0400 Diastolic blood pressure 76 mm[Hg] Yoko Slarb [employer] [facility]; [facility] Work Phone: Comment on above: Patient Position: Sitting; Cuff Location : Left Arm; Cuff Size: Standard 05-16-2021 13:10-0400 Heart rate 78 /min Yoko Slarb [employer] [facility]; [facility] Work Phone: Comment on above: Pattern: Regular 05-16-2021 13:10-0400 Respiratory rate 16 /min Yoko Slarb [employer] [facility]; [facility] Work Phone: Comment on above: Pattern: Unlabored 05-16-2021 13:10-0400 SaO2% (BldA) [Mass fraction] 99 % Yoko Slarb [employer] [facility]; [facility] Work Phone: Comment on above: Room air 05-16-2021 13:10-0400 Systolic blood pressure 138 mm[Hg] Yoko Slarb [employer] [facility]; [facility] Work Phone: Comment on above: Patient Position: Sitting; Cuff Location : Left Arm; Cuff Size: Standard 10-06-2020 11:19-0500 Body mass index (BMI) [Ratio] 21.7 kg/m2 Dr. Spike Mullen Work Phone: [facility] Work Phone: 04-15-2017 15:15-0400 BMI (Body Mass Index) 20.67 kg/m2 Mal Joseph MD [facility] Work Phone: 04-15-2017 15:15-0400 Body Temperature 97.4 [degF] Mal Joseph MD [facility] Work Phone: 04-15-2017 15:15-0400 Body Temperature 97.39 [degF] Mal Joseph MD [facility] Work Phone: 04-15-2017 15:15-0400 BP Diastolic 92 mm[Hg] Mal Joseph MD [facility] Work Phone: 04-15-2017 15:15-0400 BP Systolic 155 mm[Hg] Mal Joseph MD [facility] Work Phone: 04-15-2017 15:15-0400 Height 191.77 cm Mal Joseph MD [facility] Work Phone: 04-15-2017 15:15-0400 Pulse (Heart Rate) 62 /min Mal Joseph MD [facility] Work Phone: 04-15-2017 15:15-0400 Respiratory Rate 20 /min Mal Joseph MD [facility] Work Phone: 04-15-2017 15:15-0400 Weight 76.02 kg Mal Joseph MD [facility] Work Phone: 09-25-2016 09:58-0500 BSA (Body Surface Area) 2.08 m2 Mal Joseph MD [facility] Work Phone: 08-28-2011 08:54-0500 Height 191.77 cm Mal Joseph MD [facility] Work Phone: Encounters Encounter Date Encounter Type Care Provider Facility Start: 05-11-2025 ambulatory Durga Erickson lity:[facility] Start: 04-23-2025 End: 04-23-2025 Admission to same day surgery center Dr. Durga Pierson [facility] Start: 04-23-2025 End: 04-23-[address] Francheska Alonzo DO Work Phone: [facility] Start: 04-15-2025 End: 04-15-[address] Durga Pierson MD -[facility] Work Phone: Start: 04-15-2025 End: 04-15-[address] Francheska Alonzo DO Work Phone: -[facility] Start: 03-31-2025 End: 03-31-[address] Francheska Alonzo DO Work Phone: -Laboratory Start: 03-31-2025 End: 03-31-[address] Francheska Alonzo DO -Laboratory Work Phone: Start: 03-31-2025 End: 03-31-2025 ambulatory Francheska Fast Facility:[facility] Start: 03-23-2025 End: 03-23-2025 Patient encounter procedure David Parra DO -[facility] Work Phone: Start: 03-23-2025 End: 03-23-[address] Francheska Alonzo DO Work Phone: -[facility] Start: 03-09-2025 ambulatory Francheska Fast Facility:[facility] Start: 03-09-2025 Non-patient / Non-visit Dr. Petros Valdez MD -[facility] Start: 03-08-2025 ambulatory Francheska Fast Facility:[facility] Start: 03-08-2025 [facility]-patient / [facility] Start: 03-08-2025 End: 03-08-[address] Francheska Fast DO Work Phone: -Cardiovascular Services Start: 03-08-2025 End: 03-08-[address] Petros Valdez MD -Cardiovascular Services Work Phone: Start: 03-08-2025 End: 03-08-2025 ambulatory Francheska Fast Facility:[facility] Start: 03-02-2025 ambulatory Francheska Fast Facility:[facility] Start: 03-02-2025 Non-patient / Non-visit David Parra DO -[facility] Start: 03-02-2025 End: 03-02-2025 Admission to same day surgery center David Parra DO -Endoscopy Work Phone: Start: 03-02-2025 End: 03-02-[address] Francheska Alonzo DO Work Phone: [facility] Work Phone: Start: 01-26-2025 End: 01-26-[address] Petros Valdez MD -[facility] Work Phone: Start: 01-26-2025 End: 01-26-[address] Francheska Alonzo DO Work Phone: [facility] Work Phone: Start: 12-23-2024 End: 12-23-[address] Francheska Alonzo DO Work Phone: [facility] Work Phone: Start: 12-23-2024 End: 12-23-[address] Francheska Alonzo DO -Laboratory Work Phone: Start: 12-23-2024 End: 12-23-2024 ambulatory Francheska Fast Facility:[facility] Start: 12-17-2024 End: 12-17-2024 [facility] Start: 12-17-2024 End: 12-17-2024 ambulatory Francheska Fast Facility:[facility] Start: 10-01-2024 End: 10-01-2024 Patient encounter procedure David Parra DO -[facility] Work Phone: Start: 10-01-2024 End: 10-01-2024 ambulatory Francheska Fast Facility:[facility] [place] [place] Start: 07-02-2024 End: 07-02-2024 ambulatory Francheska Fast Facility:[facility] Start: 06-22-2024 End: 06-22-2024 ambulatory Francheska Fast Facility:[facility] Start: 12-25-2023 End: 12-25-[address] Francheska Alonzo Work Phone: [facility] Work Phone: Start: 12-25-2023 End: 12-25-[address] Francheska Alonzo Work Phone: [facility]-Laboratory Work Phone: Start: 12-03-2023 End: 12-03-[address] Francheska Alonzo Work Phone: [facility] Work Phone: Start: 08-06-2023 End: 08-06-[address] Francheska Alonzo Work Phone: [facility] Work Phone: Start: 08-06-2023 End: 08-06-[address] Francheska Alonzo Work Phone: [facility]-Laboratory, Specimen Work Phone: Start: 08-05-2023 End: 08-05-[address] Francheska Alonzo Work Phone: [facility] Work Phone: Start: 07-26-2023 End: 07-26-[address] Francheska Alonzo Work Phone: [facility]-Outpatient Breast Imaging Work Phone: Start: 06-14-2023 Non-patient / Non-visit Dr. Francheska Alonzo Work Phone: [facility] Start: 06-14-2023 End: 06-14-[address] [facility] Start: 06-14-2023 End: 06-14-2023 Phone Encounter Francheska Alonzo DO Work Phone: [facility] Start: 06-07-2023 End: 06-07-2023 Annotation/Addendum Francheska Fast DO Work Phone: [facility] Start: 06-03-2023 End: 06-03-2023 Office outpatient visit 25 minutes Francheska Alonzo DO Work Phone: [facility] Start: 05-29-2023 End: 05-29-[address] Francheska Alonzo Work Phone: [facility] Work Phone: Start: 05-29-2023 End: 05-29-[address] [facility] Start: 02-25-2023 End: 02-25-[address] Francheska Alonzo Work Phone: [facility] Start: 02-25-2023 End: 02-25-2023 Office outpatient visit 25 minutes Francheska Alonzo DO Work Phone: [facility] Start: 02-22-2023 End: 02-22-[address] Francheska Alonzo Work Phone: [facility] Work Phone: Start: 02-22-2023 End: 02-22-[address] Francheska Alonzo Work Phone: [facility]-Laboratory Start: 02-13-2023 Non-patient / Non-visit Dr. Francheska Alonzo Work Phone: [facility] Start: 02-13-2023 End: 02-13-2023 Admission to same day surgery center Dr. Francheska Alonzo Work Phone: [facility]-Endoscopy Start: 02-13-2023 End: 02-13-[address] Francheska Alonzo Work Phone: [facility] Work Phone: Start: 01-14-2023 End: 01-14-[address] Francheska Alonzo Work Phone: [facility] Start: 12-03-2022 Non-patient / Non-visit Dr. Francheska Alonzo Work Phone: [facility] Start: 12-03-2022 End: 12-03-2022 Admission to same day surgery center Dr. 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 Francheska Alonzo Work Phone: [facility] Work Phone: Start: 11-30-2022 Non-patient / Non-visit Dr. Francheska Alonzo Work Phone: [facility] Start: 11-29-2022 Non-patient / Non-visit Dr. Francheska Alonzo Work Phone: [facility] Start: 11-29-2022 End: 11-29-[address] Francheska Alonzo Work Phone: [facility] Work Phone: Start: 11-29-2022 End: 11-29-[address] Francheska Alonzo Work Phone: [facility] Start: 11-12-2022 ambulatory Francheska Alonzo DO [facility] Start: 11-12-2022 End: 11-12-2022 Office outpatient visit 25 minutes Francheska Alonzo DO Work Phone: [facility] Start: 10-29-2022 Non-patient / Non-visit Dr. Francheska Alonzo Work Phone: [facility] Start: 10-29-[address] Francheska Alonzo Work Phone: [facility]-Cardiovascular Services Start: 10-29-2022 End: 10-29-[address] Francheska Parham Phone: [facility]-Laboratory Start: 10-16-2022 End: 10-16-[address] Francheska Alonzo Work Phone: [facility] Start: 09-14-2022 End: 09-14-[address] Francheska Alonzo Work Phone: [facility] Start: 08-10-2022 End: 08-10-2022 Phone Encounter Francheska Alonzo DO Work Phone: [facility] Start: 07-30-2022 End: 08-05-2022 Patient encounter procedure Francheska Alonzo DO Work Phone: [facility] Start: 07-30-2022 Review Francheska Alonzo DO Work Phone: [facility] Start: 06-11-2022 End: 06-11-2022 Historical Summary Francheska Alonzo DO Work Phone: [facility] Start: 05-25-2022 End: 05-27-2022 Office outpatient visit 15 minutes Francheska Alonzo DO Work Phone: [facility] Start: 05-09-2022 End: 05-09-[address] Francheska Alonzo Work Phone: [facility] Work Phone: Start: 05-09-2022 End: 05-09-[address] Francheska Alonzo Work Phone: [facility]-Laboratory Start: 05-08-2022 End: 05-08-2022 Phone Encounter Francheska [...] encounter procedure Dr. Francheska Alonzo Work Phone: [facility]-Outpatient Breast Imaging Start: 03-23-2022 End: 03-25-2022 Office outpatient visit 15 minutes Francheska Fast DO Work Phone: [facility] Start: 01-24-2022 End: 01-24-[address] Francheska Alonzo Work Phone: [facility] Start: 01-24-2022 End: 01-28-2022 Office outpatient visit 25 minutes Francheska Fast DO Work Phone: [facility] Start: 01-24-2022 Review Francheska Fast DO Work Phone: [facility] Start: 01-19-2022 End: 01-19-[address] Francheska Alonzo Work Phone: [facility]-Laboratory Start: 01-15-2022 End: 01-15-2022 Phone Encounter Francheska Fast DO Work Phone: [facility] Start: 01-10-2022 Non-patient / Non-visit Dr. Spike Mullen Work Phone: [facility] Start: 01-10-2022 End: 01-10-2022 Admission to same day surgery center Dr. Spike Mullen Work Phone: [facility]-Endoscopy Start: 11-07-2021 End: 11-07-[address] Spike Mullen Work Phone: [facility] Start: 10-25-2021 End: 10-26-2021 Office outpatient visit 25 minutes Francheska Fast DO Work Phone: [facility] Start: 10-25-2021 Review Francheska Fast DO Work Phone: [facility] Start: 10-10-2021 End: 10-10-[address] Spike Mullen Work Phone: [facility] Start: 10-05-2021 End: 10-05-[address] Spike Mullen Work Phone: [facility]-Laboratory Start: 07-12-2021 End: 07-12-2021 Phone Encounter Francheska [...] [facility] Start: 04-09-2017 End: 04-10-2017 [facility] Facility:[facility] Procedures Date Procedure Procedure Detail Performing Clinician Start: 04-23-[address] Francheska Alonzo DO Work Phone: Start: 03-31-2025 Vitamin D, 25-hydroxy measurement Dr. Francheska Alonzo DO Work Phone: Comment on above: Vitamin D StatusDeficiency: <20 ng/mL (5 0nmol/L)Insufficiency: 20-30 ng/mL (50-75 nmol/L)Sufficiency: 30-100 ng/mL (75-250 nmol/L)Toxicity: >100 ng/mL (>250 nmol/L) Start: 03-08-2025 Radionuclide imaging of perfusion of [...] Extrem Procedure Note: See Note ; NOTES: [facility] [address] [place] [address] Venous Duplex US - [place] Extrem 06/14/23 0905 MR#: [id number] Acct: [id number] Name: JUNG ABURTO Rep #: [id number] : 1945 78 From: Michele Hodgson MD [...] CC: Dr. Francheska Alonzo DO Date Dictated: 06/14/23 0905 Date Transcribed: 06/14/23 122 Photography Coordinator: Vanessa Alonzo DO Work Phone: Start: 02-25-2023 End: 02-25-2023 Gastroenterology Visit Report Procedure Note: See Note ; NOTES: [facility] [address] [place] [address] OFFICE VISIT Date of Service: 02/25/23 MR#: [id number] Acct: [id number] Name: JUNG ABURTO Rep #: [id number] : 1945 Provider: RAJESH Garrido Age/Sex: 77/M Location: [facility] Status: Signed Intake Vital Signs 01/14/23 13:34 [...] acid 325 mg-1,916 mg-1,000 mg efferves tab ([place] Original) 1 tab PO PRN PRN BLOATING [...] and oriented x3 Quality Reporting Tobacco Screening ([facility] 138) Smoking Status: Never smoker Assessment and Plan Assessment and Plan (1) Yates esophagus: Status: Chronic Plan: Discussed EGD findings, positive for Yates's still, negative for dysplasia, continue PPI and [id number] 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 Francheska Alonzo DO [place] Patient Name: Jung Aburto Procedure Date: 02/13/2023 [...] pathology results. Procedure Code(s): --- Professional --- 82994, Esophagogastroduodenoscopy, flexible, transoral; with biopsy, single or multiple CPT copyright 2017 [employer]. All rights reserved. The codes documented in this report are preliminary and upon synthetic department supervisor review may be revised to meet current compliance requirements. David Parra DO 02/13/2023 8:10:49 AM This report has been signed electronically. Number of Addenda: 0 Note Initiated On: 02/13/2023 7:50 AM 02/13/23 0810 Date David Parra DO Cosigner Signature: Date (if indicated) CC: Dr. Francheska Alonzo DO; David Parra DO Date Dictated: 02/13/23 0750 Date Transcribed: Photography Coordinator: PRAVIN Signed Francheska Alonzo DO Work Phone: Start: 02-13-2023 End: 02-13-2023 History and Physical Exam Procedure Note: See Note; NOTES: [facility] Medical Records Department [address] [place] [id number] History Physical Exam 02/13/23752 MR#: [id number] Acct: [id number] Name: JUNG ABURTO Rep #: [id number] : 1945 77 From: David Parra DO PCP: Dr. Francheska Alonzo DO Status:[facility] Location: [place] [address] History and Physical Date of Admission: 02/13/23 [...] and oriented x3 Quality Reporting Tobacco Screening ([facility] 138) Smoking Status: Never smoker Assessment and [...] Report Procedure Note: See Note ; NOTES: [facility]enter[facility] [address] [place] [address] OFFICE VISIT Date of Service: 01/14/23 MR#: [id number] Acct: [id number] Name: JUNG ABURTO Rep #: [id number] : 1945 Provider: RAJESH Garrido Age/Sex: 77/M Location: [facility] Status: Signed Intake Vital Signs 01/10/22 10:18 [...] acid 325 mg-1,916 mg-1,000 mg efferves tab ([place] Original) 1 tab PO DAILY 11/30/22 [History Confirmed 01/14/23] aspirin 81 mg capsule 81 mg PO DAILY 12/03/22 [History Confirmed 01/14/23] [facility] Medical History (Updated 01/14/23 @ 13:48 by Alicia Garrido NP, TECH BRAZER TESTER-C) Alcohol use Arthritis Back pain Yates esophagus [...] and oriented x3 Quality Reporting Tobacco Screening ([facility] 138) Smoking Status: Never smoker Assessment and Plan Assessment and Plan (1) Yates esophagus: Status: Chronic Plan: Schedule EGD to reeval Yates's Continue dexilant and famotidine Coding Level of Care Code Off vis,est,level 2 Diagnoses 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 Francheska Alonzo, DO Francheska Alonzo DO Work Phone: Start: 12-03-2022 End: 12-03-2022 Operative Report Procedure Note: See Note; NOTES: [facility] Medical Records Department [address] [place] [address] Operative Report 12/03/22 1227 MR#: [id number] Acct: [id number] Name: JUNG ABURTO Rep #: [id number] : 1945 77 From: Sd Kirk MD PCP: Dr. Francheska Alonzo DO Status:[facility] Location: [facility] Report of Operation Date of Procedure: [...] Cath Diagnostic Procedure Note: See Note; NOTES: [facility] Imaging Services [address] [place] [address] Cardiac Cath Diagnostic MR#: [id number] Acct: [id number] Name: JUNG ABURTO Rep #: [id number] : 1945 77 From: Petros Valdez MD PCP: Dr. Francheska Alonzo DO Status[place] Patient Name: JUNG ABURTO Study Date: 12/03/2022 Performing: Petros Valdez MD Ht: 73 inches 185.42 cm : 1945 Wt: 166.01 lbs 75.3 kg Age: 77 Gender: male BSA: 1.99 PROCEDURE(S) PERFORMED DC01-(02553)LHC/COR/LV IC10-(59715)FFR, CORONARY OR GRAFT, INITIAL VESSEL IC11-(36016)FFR, CORONARY OR GRAFT, EACH ADD'L VESSEL CLINICAL [...] multiple views using a 5 Fr. 4.0 [place] catheter. Left Coronary Artery selective angiography was performed in multiple views using a 5 Fr. 4.0 [place] catheter. Left Ventriculography was performed in [facility] [...] Petros Valdez MD 12/03/22 1216 Date Petros Marcano Signature: Date (if indicated) CC: Dr. Petros Valdez MD; Dr. Francheska Alonzo DO Date Dictated: 12/03/22 1117 Date Transcribed: 12/03/22 1215 Photography Coordinator: [place] Signed Francheska Alonzo DO Work Phone: Start: 11-30-2022 End: 11-30-2022 History and Physical Exam Procedure Note: See Note; NOTES: [facility] Medical Records Department [address] [place] [address] History Physical Exam 11/30/22 1600 MR#: [id number] Acct: [id number] Name: JUNG ABURTO Rep #: [id number] : 1945 77 From: Tea ARIZMENDI PA PCP: Dr. Francheska Alonzo DO Status:[place] [facility] History and Physical JUNG ABURTO, is [...] applicable): CC: KYLEIGH Hart; Dr. Francheska Alonzo, DO Signed Francheska Alonzo DO Work Phone: Start: 11-29-2022 End: 11-29-[address] Procedure Note: See Note; NOTES: [facility] Imaging Services [address] [place] [address] 11/29/22 1532 MR#: [id number] Acct: [id number] Name: JUNG ABURTO Rep #: [id number] : 1945 77 From: Petros Valdez MD [...] Only Procedure Note: See Note ; NOTES: [facility] Imaging Services [address] [place] [address] Cardiac Only MR#: [id number] Acct: [id number] Name: JUNG ABURTO Rep #: [id number] : 1945 [facility] From: Hany Yarbrough MD PCP: Dr. Francheska Alonzo DO Status: REG CLI Study: Limited Chest CT Cardiac Only Date of Exam: Exam# [id number] Ordering Dr: Petros Valdez MD STUDY: CARDIAC [...] Hany Yarbrough MD, LAKISHA at 16:36 EDT Reading Location ID and State: [facility] / [place] Tel , Service support , CC: Dr. Petros Valdez MD; Dr. Francheska Alonzo DO Photography Coordinator: Signed Francheska Alonzo DO Work Phone: Start: 10-16-2022 End: 10-16-2022 Cardiology Visit Report Procedure Note: See Note; NOTES: [facility] [address] [place] [address] OFFICE VISIT Date of Service: 10/16/22 MR#: [id number] Acct: [id number] Name: JUNG ABURTO Rep #: [id number] : 1945 Provider: Dr. Petros Valdez MD Age/Sex: 77/M Location: [facility] [place] Status: Signed HPI [facility] History of Present Illness Details: JUNG ABURTO, is a 77 M who presents today for a cardiovascular outpatient follow-up. He is a gentleman with no obstructive coronary disease, hypertension, hyperlipidemia, and probable raynauds phenomenon. He returns for follow-up visit. You do remember he underwent stress echocardiographic evaluation in 2017 with no evidence of ischemia. 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 Francheska Alonzo DO Status: REG CLI Study: Kidney and Bladder Date of Exam: 09/14/22 Exam# [id number] Ordering Dr: Francheska Alonzo DO STUDY: RENAL [...] EST , CC: Dr. Francheska Alonzo DO Photography Coordinator: Signed Francheska Alonzo DO Work Phone: Start: 09-14-[address] Francheska Alonzo Work Phone: Start: 04-17-2022 US BREAST BIOPSY RIGHT (POC) SURG USE ONLY Mal Joseph MD Work Phone: Start: 04-05-2022 End: 04-05-2022 Breast Limited Unilateral Comments: See Note; NOTES: [facility] Imaging Services [address] [place] [address] Breast Limited Unilateral MR#: [id number] Acct: [id number] Name: JUNG ABURTO Rep #: [id number] : 1945 M 76 From: Mo bertrand MD PCP: Dr. Francheska Alonzo DO Status: REG CLI Study: Breast Limited Unilateral Date of Exam: Exam# [id number] Ordering Dr: Francheska Alonzo DO STUDY: ULTRASOUND [...] EDT , CC: Dr. Francheska Alonzo DO Photography Coordinator: Signed Francheska Alonzo DO Work Phone: Start: 04-05-[address] Francheska Alonzo Work Phone: Start: 04-05-[address] Francheska Alonzo Work Phone: Start: 04-05-2022 End: 04-05-2022 DIAG MAMM W/CAD, BILAT Comments: See Note; NOTES: [facility] Imaging Services [address] [place] [address] DIAG MAMM W/CAD, BILAT MR#: [id number] Acct: [id number] Name: JUNG ABURTO Rep #: [id number] : 1945 M 76 From: Mo bertrand MD PCP: Dr. Francheska Alonzo DO Status: REG [facility] Study: DIAG MAMM W/CAD, BILAT Date of Exam: 04/05/22 Exam# [id number] Ordering Dr: Francheska Alonzo DO MAMMOGRAPHY - [...] EDT , CC: Dr. Francheska Alonzo DO Photography Coordinator: Signed Francheska Alonzo DO Work Phone: Start: 01-24-2022 End: 2022 Gastroenterology Visit Report Procedure Note: See Note ; NOTES: [facility] Gastroenterology [address] [place] [address] OFFICE VISIT Date of Service: 01/24/22 MR#: [id number] Acct: [id number] Name: JUNG ABURTO Rep #: [id number] : 1945 Provider: David Parra DO Age/Sex: 76/M Location: [facility] [place] Status: Signed Intake Vital Signs 10/10/21 [...] up visit. Jung established with this clinic 3.09.30 for [...] Appearance: average body habitus and well nourished [facility] Head: normal to inspection Ears: [...] Affect: normal affect Quality Reporting Tobacco Screening ([facility] 138) Smoking Status: Never smoker Assessment and Plan Assessment and Plan (1) GERD (gastroesophageal reflux disease): Status: Acute Plan - Dr. David Parra DO: Gastroesophageal reflux disease is controlled on [...] 06-08-2022 Colonoscopy Report Comments: See Note; NOTES: [facility] Medical Records Department [address] [place] [address] Colonoscopy Report MR#: [id number] Acct: [id number] Name: JUNG ABURTO Rep #: [id number] : 1945 76 From: David Parra DO PCP: Dr. Francheska Alonzo DO Status:REG [facility] Patient Name: Jung Aburto Procedure Date: 01/10/2022 [...] 1 week. Procedure Code(s): --- Professional --- 72318, Colonoscopy, flexible; with removal of tumor(s), polyp(s), or other lesion(s) by snare technique CPT copyright 2017 [employer]. All rights reserved. The codes documented in this report are preliminary and upon synthetic department supervisor review may be revised to meet current compliance requirements. David Parra DO 01/10/2022 11:46:14 AM This report has been signed electronically. Number of Addenda: 0 Note Initiated On: 01/10/2022 11:06 AM 01/10/22 1146 Date David Parra DO Cosigner Signature: Date (if indicated) CC: Dr. Francheska Alonzo DO; David Parra DO Date Dictated: 01/10/22 1106 Date Transcribed: Photography Coordinator: PRAVIN Signed Francheska Alonzo DO Work Phone: Start: 01-10-2022 End: 06-08-2022 EGD Report Comments: See Note; NOTES: [facility] Medical Records Department [address] [place] [address] EGD Report MR#: [id number] Acct: [id number] Name: JUNG ABURTO Rep #: [id number] : 1945 76 From: David Parra DO PCP: Dr. Francheska Alonzo DO Status:[place] [facility] Patient Name: Jung Aburto Procedure Date: 01/10/2022 [...] pathology results. Procedure Code(s): --- Professional --- 33693, Esophagogastroduodenoscopy, flexible, transoral; with biopsy, single or multiple G0500, Moderate sedation services provided by the same physician or other qualified health women's health care nurse practitioner performing a gastrointestinal endoscopic service that sedation supports, requiring the presence of an independent trained observer to assist in the monitoring of the patient's level of consciousness and physiological status; initial 15 minutes of intra-service time; patient age 5 years or older (additional time may be reported with 28942, as appropriate) CPT copyright 2017 [employer]. All rights reserved. The codes documented in this report are preliminary and upon synthetic department supervisor review may be revised to meet current compliance requirements. David Parra DO 01/10/2022 11:40:16 AM This report has been signed electronically. Number of Addenda: 0 Note Initiated On: 01/10/2022 10:40 AM 01/10/22 1140 Date David Parra DO Cosigner Signature: Date (if indicated) CC: Dr. Francheska Alonzo DO; David Parra DO Date Dictated: 01/10/22 1040 Date Transcribed: Photography Coordinator: PRAVIN Signed Francheska Alonzo DO Work Phone: Start: 01-10-[address] Spike Mullen Work Phone: Start: 01-10-2022 End: 01-10-2022 History and Physical Exam Comments: See Note; NOTES: [facility] Medical Records Department [address] [place] [address] History Physical Exam 01/10/22 1041 MR#: [id number] Acct: [id number] Name: JUNG ABURTO Rep #: [id number] : 1945 76 From: David Parra DO PCP: Dr. Francheska Alonzo DO Status:[facility] Location: [place] [address] History and Physical Date of Admission: 01/10/22 [...] and well groomed Quality Reporting Tobacco Screening ([facility] 138) Smoking Status: Never smoker Assessment and [...] Gastroenterology Visit Report Comments: See Note; NOTES: [facility] Gastroenterology [address] [place] [address] OFFICE VISIT Date of Service: 11/07/21 MR#: [id number] Acct: [id number] Name: JUNG ABURTO Rep #: [id number] : 1945 Provider: RAJESH Garrido Age/Sex: 76/M Location: [facility] [place] Status: Signed Intake Intake Visit Reasons: COLON POLYPS Allergies No Known Allergies Allergy (Verified 11/07/21 11:25) Medications coenzyme Q10 30 mg PO DAILY 05/21/16 [History Confirmed 11/07/21] multivitamin 1 ea PO DAILY 05/21/16 [History Confirmed 11/07/21] cyanocobalamin (vitamin B-12) 2,000 mcg PO DAILY 04/22/17 [History Confirmed 11/07/21] omega 7-sjo-gcv-fish oil 1 tab PO DAILY 04/22/17 [History [...] mg PO DAILY 10/10/21 [History Confirmed 11/07/21] [facility] Medical History (Updated 11/07/21 @ 11:38 by Alicia Garrido NP, TECH BRAZER TESTER-C) Chronic renal insufficiency Essential (primary) hypertension Hyperlipidemia [...] and well groomed Quality Reporting Tobacco Screening ([facility] 138) Smoking Status: Never smoker Assessment and [...] Garrido NP, NP-C> Date Alicia Garrido NP TECH BRAZER TESTER-C Cosigner Signature: Date (if applicable) CC: Dr. Francheska Alonzo, DO Francheska Alonzo DO Work Phone: Start: 10-10-2021 End: 10-10-2021 Cardiology Visit Report Comments: See Note; NOTES: [facility] [place], [place] [address] OFFICE VISIT Date of Service: 10/10/21 MR#: [id number] Acct: [id number] Name: JUNG ABURTO Rep #: [id number] : 1945 Provider: Dr. Petros Valdez MD Age/Sex: 76/M Location: [facility] [place] Status: Signed HPI [facility] History of Present Illness Details: JUNG [...] Known Allergies Allergy (Verified 10/10/21 08:52) Medications sndhrkeskf-dbtcdiv-wwcifcxc 1 tab PO DAILY PRN PRN 05/21/16 [History Confirmed 10/10/21] coenzyme Q10 30 mg PO DAILY 05/21/16 [History Confirmed 10/10/21] diazepam 0.5 - 1 tab PO DAILY PRN PRN 05/21/16 [History Confirmed 10/10/21] multivitamin 1 ea PO DAILY 05/21/16 [History Confirmed 10/10/21] cyanocobalamin (vitamin B-12) 2,000 mcg PO DAILY 04/22/17 [History Confirmed 10/10/21] omega 3-kqp-udg-fish oil 1 tab PO DAILY 04/22/17 [History [...] updated, as necessary. 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) Coding Level of Care Code Off vis,est,level [...] 09-19-2015 End: 09-19-2015 *Hepatic Function Panel Petros Vadlez MD Start: 09-19-2015 End: 09-19-2015 Lipid panel [AGGREGATE] Petros Valdez MD Start: 08-17-2014 End: 08-17-2014 REESE Valdez MD Start: 08-17-2014 End: 08-17-2014 Follow Up Appt 1 year Petros Valdez MD Start: 08-18-2013 End: 07-06-2015 *Hepatic Function Panel Petros Valdez MD Start: 08-18-2013 End: 08-18-2013 COUNTER CLERK Petros Valdez MD Start: 08-18-2013 End: 08-18-2013 [...] [AGGREGATE] Petros Valdez MD Appendectomy Yoko Slarb SPIRAL WEAVER Appendectomy Naida Manchak MORTGAGE LOAN CLOSER Appendectomy Naida Manchak MORTGAGE LOAN CLOSER Appendectomy Kayela Ashley MORTGAGE LOAN CLOSER Appendectomy Francheska A Fast DO Work Phone: Appendectomy Naida Manchak MORTGAGE LOAN CLOSER Appendectomy Naida Manchak MORTGAGE LOAN CLOSER Appendectomy Naida Manchak MORTGAGE LOAN CLOSER Appendectomy Naida Manchak MORTGAGE LOAN CLOSER Double hernia Yoko Slarb SPIRAL WEAVER Double hernia Naida Manchak MORTGAGE LOAN CLOSER Double hernia Naida Manchak MORTGAGE LOAN CLOSER Double hernia Kayela Ashley MORTGAGE LOAN CLOSER Double hernia Francheska A Fast DO Work Phone: Double hernia Naida Manchak MORTGAGE LOAN CLOSER Double hernia Naida Manchak MORTGAGE LOAN CLOSER Double hernia Naida Manchak MORTGAGE LOAN CLOSER Double hernia Naida Manchak MORTGAGE LOAN CLOSER Hydrocele Yoko Slarb SPIRAL WEAVER Hydrocele Naida Manchak MORTGAGE LOAN CLOSER Hydrocele Naida Manchak MORTGAGE LOAN CLOSER Hydrocele Kayela Ashley MORTGAGE LOAN CLOSER Hydrocele Francheska A Fast DO Work Phone: Hydrocele Naida Manchak MORTGAGE LOAN CLOSER Hydrocele Naida Manchak MORTGAGE LOAN CLOSER Hydrocele Naida Manchak MORTGAGE LOAN CLOSER Hydrocele Naida Manchak MORTGAGE LOAN CLOSER Partial thyroidectomy Yoko Slarb SPIRAL WEAVER Partial thyroidectomy Chelse a Manchak MORTGAGE LOAN CLOSER Partial thyroidectomy Chelse a Manchak MORTGAGE LOAN CLOSER Partial thyroidectomy Kayela Ashley MORTGAGE LOAN CLOSER Partial thyroidectomy Francheska A Fast DO Work Phone: Partial thyroidectomy Chelse a Manchak MORTGAGE LOAN CLOSER Partial thyroidectomy Chelse a Manchak MORTGAGE LOAN CLOSER Partial thyroidectomy Chelse a Manchak MORTGAGE LOAN CLOSER Partial thyroidectomy Chelse a Manchak MORTGAGE LOAN CLOSER right hand [facility] Yoko Slarb SPIRAL WEAVER right hand [facility] Naida Manchak MORTGAGE LOAN CLOSER right hand [facility] Naida Manchak MORTGAGE LOAN CLOSER right hand [facility] Kayela Radfor d MORTGAGE LOAN CLOSER right hand [facility] Francheska A Fast DO Work Phone: right hand [facility] Naida Manchak MORTGAGE LOAN CLOSER right hand [facility] Naida Manchak MORTGAGE LOAN CLOSER right hand [facility] Naida Manchak MORTGAGE LOAN CLOSER right hand [facility]MC Naida Manchak MORTGAGE LOAN CLOSER Tonsillectomy Yoko Slarb SPIRAL WEAVER Tonsillectomy Naida Manchak MORTGAGE LOAN CLOSER Tonsillectomy Naida Manchak MORTGAGE LOAN CLOSER Tonsillectomy Kayela Madiha MORTGAGE LOAN CLOSER Tonsillectomy Francheska A Fast DO Work Phone: Tonsillectomy Naida Manchak MORTGAGE LOAN CLOSER Tonsillectomy Naida Manchak MORTGAGE LOAN CLOSER Tonsillectomy Naida Manchak MORTGAGE LOAN CLOSER Tonsillectomy Naida Manchak MORTGAGE LOAN CLOSER TURP Yoko Slarb SPIRAL WEAVER TURP Naida Manchak MORTGAGE LOAN CLOSER TURP Naida Manchak MORTGAGE LOAN CLOSER TURP Christineyela Ashley MORTGAGE LOAN CLOSER TURP Francheska A Fast DO Work Phone: TURP Naida Manchak MORTGAGE LOAN CLOSER TURP Naida Manchak MORTGAGE LOAN CLOSER TURP Naida Manchak MORTGAGE LOAN CLOSER TURP Naida Manchak MORTGAGE LOAN CLOSER Plan of Treatment Date Care Activity Detail Author Start: 04-23-2025 Patient discharge [facility] Start: 03-02-2025 Egd transoral biopsy single/multiple EGD BIOPSY SINGLE/MULTIPLE [facility] Start: 03-02-2025 Patient discharge [facility] Start: 06-03-2023 Procedure Education Eprescribed prescriptions (G8553) [facility]; [facility] Work Phone: Start: 06-03-2023 Blood count complete auto&auto difrntl wbc CBC W/AUTO DIFF WBC (26577) [facility]; [facility] Work Phone: Start: 06-03-2023 Comprehensive metabolic panel METABOLIC PANEL, COMPREHENSIVE (02876) [facility]; [facility] Work Phone: Start: 02-25-2023 Procedure Education Eprescribed prescriptions (G8553) [facility]; [facility] Work Phone: Start: 02-25-2023 Blood count complete auto&auto difrntl wbc CBC W/AUTO DIFF WBC (50169) [facility]; [facility] Work Phone: Start: 02-25-2023 Comprehensive metabolic panel METABOLIC PANEL, COMPREHENSIVE (02558) [facility]; [facility] Work Phone: Start: 02-25-2023 Lipid panel LIPID PANEL (66574) [facility]; [facility] Work Phone: Start: 02-25-2023 Sedimentation rate rbc non-automated SED RATE ERYTHROCYTE (44292) [facility]; [facility] Work Phone: Start: 02-25-2023 C-reactive protein C-REACTIVE PROTEIN (50488) [facility]; [facility] Work Phone: Start: 02-25-2023 Antinuclear antibodies mario MARIO (ANTINUCLEAR ANTIBODY) (85922) [facility]; [facility] Work Phone: Start: 02-25-2023 Rheumatoid factor quantitative RHEUMATOID FACTOR-QUANT (07017) [facility]; [facility] Work Phone: Start: 02-13-2023 Egd transoral biopsy single/multiple EGD BIOPSY SINGLE/MULTIPLE [facility] Start: 02-13-2023 Patient discharge [facility] Start: 11-29-2022 Oxygen therapy [facility] Start: 11-29-2022 [facility] Start: 11-12-2022 Procedure Education Eprescribed prescriptions (G8553) [facility]; [facility] Work Phone: Start: 11-12-2022 Lipid panel LIPID PANEL (07770) [facility]; [facility] Work Phone: Start: 11-12-2022 Blood count complete auto&auto difrntl wbc CBC W/AUTO DIFF WBC (65557) [facility]; [facility] Work Phone: Start: 11-12-2022 Comprehensive metabolic panel METABOLIC PANEL, COMPREHENSIVE (01514) [facility]; [facility] Work Phone: Start: 11-12-2022 25 hydroxy includes fractions if performed Vitamin D Hydroxy (20046) [facility]; [facility] Work Phone: Start: 11-12-2022 Assay of prostate specific antigen total PSA (Medicare - G0103) (02655) [facility]; [facility] Work Phone: Start: 07-30-2022 25 hydroxy includes fractions if performed Vitamin D Hydroxy (09804) [facility]; [facility] Work Phone: Start: 07-30-2022 Blood count complete auto&auto difrntl wbc CBC W/AUTO DIFF WBC (99299) [facility]; [facility] Work Phone: Start: 07-30-2022 Comprehensive metabolic panel METABOLIC PANEL, COMPREHENSIVE (02653) [facility]; [facility] Work Phone: Start: 07-30-2022 Lipid panel LIPID PANEL (08693) [facility]; [facility] Work Phone: Start: 07-30-2022 Procedure Education Eprescribed prescriptions (G8553) [facility]; [facility] Work Phone: Start: 05-10-2022 Influenza vaccination INFLUENZA (#1) [facility] Start: 05-08-2022 Dehydroepiandrosterone DHEA (DEHYDROEPIANDROSTER ONE) (16923) [facility]; [facility] Work Phone: Start: 05-08-2022 Assay of estradiol ESTRADIOL (74336) [facility]; [facility] Work Phone: Start: 05-08-2022 Gonadotropin chorionic qualitative HCG (HUMAN CHORIONIC GONADOTROPIN) (06459) [facility]; [facility] Work Phone: Start: 05-08-2022 Assay of prolactin PROLACTIN (80558) [facility]; [facility] Work Phone: Start: 05-08-2022 Gonadotropin follicle stimulating hormone FSH AND LH (30719) [facility]; [facility] Work Phone: Start: 05-08-2022 Assay of testosterone free TESTOSTERONE FREE (22420) [facility]; [facility] Work Phone: Start: 05-08-2022 Assay of testosterone total TESTOSTERONE TOTAL (44735) [facility]; [facility] Work Phone: Start: 03-23-2022 Procedure Education Eprescribed prescriptions (G8553) [facility]; [facility] Work Phone: Start: 01-24-2022 Procedure Education Eprescribed prescriptions (G8553) [facility]; [facility] Work Phone: Start: 01-24-2022 Urnls dip stick/tablet reagent auto microscopy URINALYSIS, W/ MICRO (47670) [facility]; [facility] Work Phone: Start: 01-24-2022 Blood count complete auto&auto difrntl wbc CBC W/AUTO DIFF WBC (77938) [facility]; [facility] Work Phone: Start: 01-24-2022 Comprehensive metabolic panel METABOLIC PANEL, COMPREHENSIVE (81198) [facility]; [facility] Work Phone: Start: 01-15-2022 Assay of prostate specific antigen total PSA (PROSTATE SPECIFIC ANTIGEN) (10816) [facility]; [facility] Work Phone: Comment on above: please draw with 2021 labs Start: 01-10-2022 Colsc flx w/rmvl of tumor polyp lesion snare tq COLONOSCOPY W/LESION REMOVAL [facility] Work Phone: Start: 01-10-2022 Egd transoral biopsy single/multiple EGD BIOPSY SINGLE/MULTIPLE [facility] Work Phone: Start: 10-25-2021 Procedure Education Eprescribed prescriptions (G8553) [facility]; [facility] Work Phone: Start: 10-25-2021 Lipid panel LIPID PANEL (77633) [facility]; [facility] Work Phone: Start: 10-25-2021 Comprehensive metabolic panel METABOLIC PANEL, COMPREHENSIVE (77285) [facility]; [facility] Work Phone: Start: 09-09-2021 ADVANCE DIRECTIVE DISCUSSION ADVANCE DIRECTIVE DISCUSSION [facility] Start: 07-11-2021 Procedure Education Eprescribed prescriptions (G8553) [facility]; [facility] Work Phone: Start: 07-11-2021 Provider Instructions for Treatment [facility]; [facility] Work Phone: Start: 07-11-2021 Lipid panel LIPID PANEL (10866) [facility]; [facility] Work Phone: Start: 07-11-2021 Comprehensive metabolic panel METABOLIC PANEL, COMPREHENSIVE (53925) [facility]; [facility] Work Phone: Start: 07-11-2021 Cyanocobalamin vitamin b-12 VITAMIN B12 AND FOLATES (83732) [facility]; [facility] Work Phone: Start: 07-11-2021 Hepatitis c antibody HEPATITIS C ANTIBODY (94840) [facility]; [facility] Work Phone: Start: 05-16-2021 Procedure Education Eprescribed prescriptions (G8553) [facility]; [facility] Work Phone: Start: 05-16-2021 Urnls dip stick/tablet reagent auto microscopy URINALYSIS, W/ MICRO (79526) [facility]; [facility] Work Phone: Start: 09-26-2017 End: 09-26-2017 Appointment [facility] Work Phone: Start: 04-30-2017 End: 04-30-2017 Appointment Appointment [facility] Work Phone: Start: 04-15-2017 End: 04-15-2017 Appointment Appointment [facility] Work Phone: Start: 09-25-2016 End: 09-25-2016 COUNTER CLERK COUNTER CLERK [facility] Work Phone: Start: 09-25-2016 End: 09-25-2016 Electrocardiogram, complete EKG (In office) [facility] Work Phone: Start: 09-25-2016 End: 09-25-2016 Follow Up Appt 1 year Follow Up Appt 1 year [facility] Work Phone: Start: 03-20-2016 End: 09-20-2015 *Hepatic Function Panel *Hepatic Function Panel [facility] Work Phone: Start: 03-20-2016 End: 09-20-2015 Lipid panel [AGGREGATE] *Lipid Profile CC PCP [facility] Work Phone: Start: 10-07-2015 End: 09-19-2015 *Hepatic Function Panel *Hepatic Function Panel [facility] [place] Work Phone: Start: 10-07-2015 End: 09-19-2015 Lipid panel [AGGREGATE] *Lipid Profile CC PCP [facility] [employer] Work Phone: Start: 09-23-2015 End: 09-23-2015 COUNTER CLERK COUNTER CLERK [facility] [employer] Work Phone: Start: 09-23-2015 End: 09-23-2015 Follow Up Appt 1 year Follow Up Appt 1 year [facility] [employer] Work Phone: Start: 08-17-2014 End: 08-17-2014 COUNTER CLERK COUNTER CLERK [facility] [employer] Work Phone: Start: 08-17-2014 End: 08-17-2014 Follow Up Appt 1 year Follow Up Appt 1 year [facility] [employer] Work Phone: Start: 01-11-2014 DIABETES SCREEN DIABETES SCREEN [facility] Start: 08-18-2013 End: 07-06-2015 *Hepatic Function Panel *Hepatic Function Panel [facility] [employer] Work Phone: Start: 08-18-2013 End: 08-18-2013 COUNTER CLERK COUNTER CLERK [facility] [employer] Work Phone: Start: 08-18-2013 End: 08-18-2013 Follow Up Appt 1 year Follow Up Appt 1 year [facility] [place] Work Phone: Start: 08-18-2013 End: 07-06-2015 Lipid panel [AGGREGATE] *Lipid Profile CC PCP [facility] [employer] Work Phone: Start: 11-28-2012 End: 07-06-2015 *Hepatic Function Panel *Hepatic Function Panel [facility] [employer] Work Phone: Start: 11-28-2012 End: 07-06-2015 Lipid panel [AGGREGATE] *Lipid Profile [facility] [employer] Work Phone: Start: 11-21-2012 End: 07-06-2015 Cardiovascular stress test using treadmill Treadmill stress test (no imaging) [facility] [employer] Work Phone: Start: 09-05-2012 End: 07-06-2015 *CRPHS - C-reactive protein, high sensitivity (hsCRP) *CRPHS - C-reactive protein, high sensitivity (hsCRP) [facility] [employer] Work Phone: Start: 09-05-2012 End: 09-05-2012 Follow Up Appt 1 year Follow Up Appt 1 year [facility] [employer] Work Phone: Start: 12-18-2011 End: 03-25-2012 *Hepatic Function Panel *Hepatic Function Panel [facility] [employer] Work Phone: Start: 12-18-2011 End: 03-25-2012 Lipid panel [AGGREGATE] *Lipid Profile [facility] [employer] Work Phone: Start: 08-28-2011 End: 09-18-2011 *Hepatic Function Panel *Hepatic Function Panel [facility] [employer] Work Phone: Start: 08-28-2011 End: 07-06-2015 Follow Up Appt 6 months Follow Up Appt 6 months [facility] [employer] Work Phone: Start: 08-28-2011 End: 09-18-2011 Lipid panel [AGGREGATE] *Lipid Profile [facility] [employer] Work Phone: Start: 2010 PNEUMOCOCCAL: 65+ (1 - PCV) PNEUMOCOCCAL: 65+ (1 - PCV) [facility] Start: 1995 SHINGRIX VACCINE (1 of 2) SHINGRIX VACCINE (1 of 2) [facility] Start: 1964 Urine microalbumin profile DTAP,TDAP,TD (1 - Tdap) [facility] Start: 1963 ANNUAL PCP TEAM CHRONIC DISEASE VISIT ANNUAL PCP TEAM CHRONIC DISEASE VISIT [facility] Start: 1957 Adult depression screening assessment DEPRESSION SCREENING [facility] Dehydroepiandrostero ne sulfate (DHEA-S) [Mass/volume] in Serum or Plasma [facility] Work Phone: Patient Education [facility] Work Phone: Patient referral [facility] Work Phone: Radionuclide imaging of perfusion of myocardium under exercise stress [facility] SURGICAL PATHOLOGY SURGICAL PATH OLOGY Lab Routine Subareolar mass of right breast 04/17/2022 2:10 PM EDT [facility] Work Phone: Testosterone Free [Mass/volume] in Serum or Plasma [facility] Work Phone: Testosterone measurement [facility] Work Phone: US Heart [facility] Work Phone: [facility] Work Phone: [facility] Work Phone: [facility] Work Phone: [facility] Work Phone: [facility] Work Phone: [facility] Work Phone: [facility] Work Phone: [facility] Work Phone: [facility] Work Phone: Immunizations Immunization Date Immunization Notes Care Provider [facility] 07-08-2023 COVID-Moderna (100 MCG/0.5 ML) Francheska Fast DO Work Phone: [facility] Work Phone: Comment on above: Spikevax 12-06-2021 COVID-Moderna (50 MCG/0.25 ML) Francheska Fast DO Work Phone: [facility] Work Phone: Comment on above: @ [facility] 06-24-2021 COVID-Moderna (100 MCG/0.5 ML) Rfancheska Fast DO Work Phone: [facility] Work Phone: 05-10-2021 influenza, injectabl e, quadrivalent, preservative free Francheska Fast DO Work Phone: [facility] Work Phone: 09-09-2019 pneumococcal polysaccharide vaccine, 23 valent Francheska Fast DO Work Phone: [facility] Work Phone: 10-04-[address] Spike Mullen Work Phone: [facility] 07-04-[address] Spike Mullen Work Phone: [facility] Payers Date Payer Category Payer Self-pay [id number] 2021 Medicare [id number] 2021 Medicare MMO MEDICARE MMO MEDADVANTAGE HMO [id number] 2021-Present [phone] [address] [place] [id number] O [id number] 2021 Medicare MMO MEDICARE MMO MEDADVANTAGE HMO [id number] 2021-Present [phone] [address] [place] [address] O [id number] 2020 Medicare [id number] 2013 Unknown [id number] 2010 Medicare [id number] 1945 Unknown [id number] Medicare [id number] Unknown Unknown [facility] PACKAGE PLAN [id number] Unknown [id number] Unknown [id number] [id number] Unknown [id number] [id number] Unknown [id number] [id number] Unknown [id number] [id number] Unknown [id number] [id number] Unknown [id number] [id number] Unknown [id number] [id number] Unknown [id number] [id number] Unknown [id number] [id number] Unknown [id number] [id number] Unknown [id number] [id number] Unknown [id number] [id number] Unknown [id number] [id number] Unknown [id number] [id number] Unknown [id number] Social History Date Type Detail Facility Alcohol Use: Alcohol Use: [facility] Work Phone: Comment on above: wine Tobacco Use: Tobacco Use: [facility] Work Phone: Start: 01-08-2022 End: 12-03-2023 Tobacco smoking status NHIS Unknown if ever smoked [facility] Start: 1945 Sex Assigned At Male [facility] Start: 11-24-2010 End: 02-25-2025 Tobacco smoking status NHIS Never smoked tobacco [facility] Work Phone: Start: 11-24-2010 End: 12-29-2010 Tobacco use and exposure Smokeless tobacco non-user [facility] Work Phone: Start: 04-10-2022 End: 04-17-2022 Alcohol intake Current drinker of alcohol (finding) [facility] Start: 04-10-2022 End: 04-17-2022 Alcohol intake [facility] Start: 1945 Sex Assigned At Not on file [facility] Start: 03-31-2022 End: 04-17-2022 Exposure to SARS-CoV-2 (event) Not sure [facility] Start: 12-30-2024 Sex Male (finding) [facility] Goals Date Patient Goal Desired Activity /State Mental Status Date Assessment Result Facility 04-23-2025 Cognitive function Awake;Alert;Appropriat e [facility] Work Phone: 03-02-2025 Cognitive function Level Of Cons ciousness Awake;Alert [facility] Work Phone: 03-02-2025 Cognitive function Voice/Name [facility] Work Phone: 02-13-2023 Cognitive function Voice/Name [facility] Work Phone: 11-29-2022 Cognitive function Awake;Alert;Appropriat e [facility] Work Phone: 01-10-2022 Cognitive function Voice/Name [facility] Work Phone: Clinical Notes 04-10-2022 to 03-02-2025 Note Date & Type Note Facility 03-02-2025 Consult note [facility] 03-02-2025 Procedure note [facility] 03-02-2025 Procedure note [facility] 03-02-2025 History and physi yan note [facility] 03-02-2025 Note [facility] Medical Records Department [address] [place] [address] History Physical Exam 03/02/25 0648 MR#: [id number] Acct: [id number] Name: JUNG ABURTO Rep #: [id number] : 1945 79 From: David Parra DO PCP: Dr. Francheska Alonzo DO Status:[facility] Location: [place] [address] HPI - General General Date of Admission: [...] lbs since. Continues with dexilant. abd/pelvis CT .10.02 1. Prominent prostate enlargement. 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 [facility] Medical History Arteriosclerosis of coronary artery Normal [...] Unknown History mg-1,916 mg-1,000 mg efferves tab ([place] Original) lisinopril 5 mg tablet 5 mg [...] vomiting or weig (more content not included)... [facility] 03-02-2025 Consult note [facility] 01-26-2025 Evaluation note Diagnosis Onset Date Resolution Essential (primary) hypertension chronic January 26, 2025 12:54pm Hyperlipidemia chronic January 26, 2025 12:54pm Yates esophagus chronic March 022024 5:38am Yates esophagus chronic March 232024 10:18am Gastroesophageal reflux disease noneactive March 23, 2025 10:18am [facility] Work Phone: 1(390) 443-549404-10-2025 Evaluation note* Diagnosis Onset Date Resolution Status Admit Date Yates esophagus chronic December 082024 8:26am Gastroesophageal reflux disease none active December 17, 2024 8:26am Essential (primary) hypertension chr onic January 26, 2025 12:54pm Hyperlipidemia chronic January 26, 2025 12:54pm Yates esophagus chronic March 022024 5:38am [facility] Work Phone: 1([phone]) 437-443904-10-2025 Evaluation note* Diagnosis Onset Date Resolution Status Admit Date Yates esophagus chronic December 082024 8:26am Gastroesophageal reflux disease none active December 17, 2024 8:26am Essential (primary) hypertension chr onic January 26, 2025 12:54pm Hyperlipidemia chronic January 26, 2025 12:54pm Yates esophagus chronic March 022024 5:38am Yates esophagus chronic March 232024 10:18am Gastroesophageal reflux disease none active March 23, 2025 10:18am [facility] Work Phone: 1(380) 836-425401-23-2025 Evaluation note* Diagnosis Onset Date Resolution Status Admit Date Yates esophagus chronic October 01, 2024 1:53pm Gastroesophageal reflux disease none active October 01, 2024 1:53pm Yates esophagus chronic December 082024 8:26am Gastroesophageal reflux disease none active December 17, 2024 8:26am [facility] Work Phone: 1([phone]) 597-674206-07-2023 Procedure [facility] 02-13-2023 Procedure [facility]03-27-2023 Procedure note [facility]03-24-2023 History and physical note Author Tea Hart [facility] November 30, 2022 4:03pm Note Date/Time November 30, 2022 4:0 3pm [facility] Medical Records Department [address] [place] [address] History & Physical Exam 11/30/22 1600 MR#: [id number] Acct: [id number] Name: JUNG ABURTO Rep #:[id number] : 1945 77 From: Tea ARIZMENDI PCP: Dr. Francheska Alonzo, DO Status[place] History and Physical JUNG ABURTO, is [...] KYLEIGH Hart; Dr. Francheska Alonzo DO~ Signed [facility] Work Phone: 1([phone]) 266-489208-09-2022 NoteHNO ID: [id number] Author: Mal Joseph MD Service: ? Author [...] applied and the patient tolerated the procedure well.[facility]08-09-2022 NoteHNO ID: [id number] Author: Ofelia Plaza Service: ? Author Type: [...] procedures): All specimen containers correctly labeled. [facility] History of Present illness Narrative* Mal [...] correctly labeled. Ofelia Plaza [facility] NoteHNO ID: [id number] Author: Mal Joseph MD Service: ? Author [...] entered by the nurse and reviewed by wa Nursing Notes: Kirstie Lopez RN 04/10/2022 9:38 [...] depression, and denies voices, (more content not included)...[facility]08-02-2022 History of Present illness Narrative* Mal [...] entered by the nurse and reviewed by wa Nursing Notes: Kirstie Lopez RN 04/10/2022 9:38 [...] Mal Joseph III, MD [facility] Nurse Note* Kirstie Lopez RN - [...] 2017 Kirstie Lopez RN [facility] Note Date/Time March 02, 2025 6:31 am [facility] Medical Records Department [address] [place] [address] Pre-Anesthesia Evaluation 03/02/25 0626 MR#: [id number] Acct: [id number] Name: JUNG ABURTO Rep #:[id number] : 1945 79 From: Drake Reilly MD PCP: Dr. Francheska Alonzo, DO Status:REG SDC Y Race: C Location: [place] [address] ASA Classification* ASA Classification ASA Classification: 2 [...] Procedure(s): egd Anesthesia History Anesthesia History - hand baseball sewer: Anesthesia History - hand baseball sewer Hx Hospitalization No 02/25/25 12:56 Any Problems [...] take am of surgery PONV PONV - hand baseball sewer: PONV - hand baseball sewer Female No 02/25/25 12:56 HX of Motion [...] 03/02/25 06:01 Respiratory Assessment Respiratory Assessment - hand baseball sewer: Respiratory Tract Infection Hx - hand baseball sewer Hx Respiratory Tract Infection No 02/25/25 12:56 STOP Sleep Apnea STOP Sleep Apnea - hand baseball sewer: STOP Sleep Apnea - hand baseball sewer Hx Hypertension Yes: CONTROLLED WITH 02/25/25 12:56 [...] Tobacco Use History Tobacco Use History - hand baseball sewer: Tobacco Use History - hand baseball sewer Tobacco Use Smoking Status Never smoker 02/25/25 12:56 Hx Tobacco Use No 02/25/25 12:56 Years Smoking Packs Smoked per Day Smoking Cessation Date was within the last 15 years Hx Smoking Cessation Date Hx Smoking Cessation Counseling Hematologic Medial History Hematologic Hx - hand baseball sewer: 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 03/02/25630 <Electronically signed by Drake anne MD> Date _ Drake Reilly MD Cosigner Signature: Date CC: ~ Signed [facility] Work Phone: Consult note Author Leo Bloom [facility] Note Date/Time March 02, 2025 7:17 am [facility] Medical Records Department [address] [place] [address] Anesthesia Postop Eval I 03/02/25 0716 MR#: [id number] Acct: [id number] Name: JUNG ABURTO Rep #:[id number] : 1945 79 From: Leo Bloom PCP: Dr. Francheska Alonzo, DO Status:REG SDC Y Race: C Location: [place] [address] Anesthesia: Postop Eval I Current Vital Signs [...] Anesthesia document: Postop Eval 1 completed: Yes 03/02/25 2191 <Electronically signed by Leo Bloom > Date _ Leo Marcano Signature: Date CC: ~ Signed [facility] Work Phone: Evaluation note* Diagnosis Onset Date Resolution Status Essential (primary) hypertension chronic Hyperlipidemia chronic GERD (gastroesophageal reflux disease) acute Hx of colonic polyp acute [facility] Work Phone: Evaluation note* Diagnosis Subareolar mass of right breast- Primary [facility] Diagnosis Onset Date Resolution Status Yates esophagus acute Gastritis acute GERD (gastroesophageal reflux disease) acute Hx of colonic polyp acute [facility] Work Phone: Evaluation note* Diagnosis Onset Date Resolution Status Essential (primary) hypertension chronic Hyperlipidemia chronic Abnormal cardiac CT angiography acute Essential (primary) hypertension chronic Hyperlipidemia [facility] Work Phone: Evaluation note* Diagnosis Onset Date Resolution Status Essential (primary) hypertension chronic Hyperlipidemia chronic Abnormal cardiac CT angiography acute Essential (primary) hypertension chronic Hyperlipidemia chronic Yates esophagus chronic [facility] Work Phone: Evaluation note* Diagnosis Onset Date Resolution Status Abnormal cardiac CT angiography acute Essential (primary) hypertension chronic Hyperlipidemia chronic Yates esophagus chronic Yates esophagus chronic [facility] Work Phone: Evaluation note* Diagnosis Onset Date Resolution Status Yates esophagus chronic [facility] Work Phone: Evaluation note* Diagnosis Onset Date Resolution Status Left breast mass acute [facility] Work Phone: Evaluation note* Diagnosis Onset Date Resolution Status Essential (primary) hypertension chronic Hyperlipidemia [facility] Work Phone: History and physical note Author David Parra [facility] February 13, 2023 7:54am Note Date/Time February 13, 2023 7:54a m [facility] Medical Records Department [address] [place] [address] History & Physical Exam 02/13/23 0753 MR#: [id number] Acct: [id number] Name: JUNG ABURTO Rep #:[id number] : 1945 77 From: David Parra DO PCP: Dr. Francheska Alonzo, DO Status:[facility] Location: [place] [address] History and Physical Date of Admission: 02/13/23 [...] .12.29. EGD found LA Grade B esophagitis, Yates?s [...] and oriented x3 Quality Reporting Tobacco Screening ([facility] 138) Smoking Status: Never smoker Assessment and [...] Francheska Alonzo DO; David Parra DO~ Signed [facility] Work Phone: History and physical note Author David Parra [facility] Note Date/Time March 02, 2025 6:[address] [facility] Medical Records Department [address] [place] [address] History & Physical Exam 03/02/25 0648 MR#: [id number] Acct: [id number] Name: JUNG ABURTO Rep #:[id number] : 1945 79 From: David Parra DO PCP: Dr. Francheska Alonzo DO Status:[facility] Location: [place] [address] HPI - General General Date of Admission: [...] lbs since. Continues with dexilant. abd/pelvis CT 9 1. Prominent prostate enlargement. 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 [facility] Medical History Arteriosclerosis of coronary artery Normal [...] Unknown History mg-1,916 mg-1,000 mg efferves tab ([place] Original) lisinopril 5 mg tablet 5 mg [...] Francheska Alonzo DO; David Parra DO~ Signed [facility] Work Phone: Instructions* Name Dates Details Patient [...] [facility]; [facility] Work Phone: [employer]* Name Dates Details Patient Instructions Indication:Nonsmoker Start:23-Mar-2022 [...] Internal Medicine; [facility] Work Phone: [employer]* Name Dates Details Patient Instructions Indication:Hyperlipidemia Start:12-Nov-2022 [...] Informa tion Online using Patient Portal and [employer] Apps Indication:Nonsmoker Start:30-Jul-2022 Instruction Type:Patient Education Patient Instructions 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 Start:27-May-2022 Instruction Type:Provider Instructions for Treatment Patient Instructions Indication:Nonsmoker Start:23-Mar-2022 Instruction Type:Provider Instructions for Treatment How to Access Health Informa tion Online using Patient Portal and [employer] Apps Indication:Nonsmoker Start:23-Mar-2022 Instruction Type:Patient Education Patient Instructions Indication:Anxiety Start:24-Jan-2022 Instruction Type:Provider Instructions for Treatment How to Access Health Informa tion Online using Patient Portal and [employer] Apps Indication:Anxiety Start:24-Jan-2022 Instruction Type:Patient Education Patient Instructions Indication:Hyperlipidemia Start:25-Oct-2021 Instruction Type:Provider Instructions for Treatment How to Access Health Informa tion Online using Patient Portal and [employer] Apps Indication:Hyperlipidemia Start:25-Oct-2021 Instruction Type:Patient Education Patient Instructions Indication:Nonsmoker Start:11-Jul-2021 Instruction Type:Provider Instructions for Treatment How to Access Health Informa tion Online using Patient Portal and [employer] Apps Indication:Nonsmoker Start:11-Jul-2021 Instruction Type:Patient Education Patient Instructions Indication:Nonsmoker Start:16-May-2021 Instruction Type:Provider Instructions for Treatment How to Access Health Informa tion Online using Patient Portal and [employer] Indication:Nonsmoker Start:16-May-2021 Instruction Type:Patient Education [facility] Work Phone: Instructions* Name Dates Details Patient Instructions Indication:Bilateral leg edema Start:03-Jun-2023 Instruction Type:Provider Instructions for Treatment How to Access Health Informa tion Online using Patient Portal and [employer] Apps Indication:Bilateral leg edema Start:03-Jun-2023 Instruction Type:Patient Education Patient Instructions Indication:Hypertension Start:25-Feb-2023 Instruction Type:Provider Instructions for Treatment How to Access Health Informa tion Online using Patient Portal and [employer] Apps Indication:Hypertension Start:25-Feb-2023 Instruction Type:Patient Education Patient [...] for referral (narrative)No reason for referral information availableUc Health Work Phone: Summary Purpose Family History No [...] Records Found Name Dates Details Immunization Registry [place] - Effective on 07/12/2021. Expiration date unspecified Effective:12-Jul-2021 Name Dates Details Immunization Registry [place] - Effective on 07/12/2021. Expiration date unspecified Effective:12-Jul-2021 Name Dates Details Immunization Registry [place] - Effective on 07/12/2021. Expiration date unspecified Effective:12-Jul-2021 Name Dates Details Living Will - Effective on . Expiration date unspecified. Scanned Document is available upon request. Effective:30-Oct-2021 Immunization Registry [place] - Effective on 07/12/2021. Expiration date unspecified Effective:12-Jul-2021 Name Dates Details Living Will - Effective on . Expiration date unspecified. Scanned Document is available upon request. Effective:30-Oct-2021 Immunization Registry [place] - Effective on 07/12/2021. 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 Expiration date unspecified. Scanned Document is available upon request. Effective:30-Oct-2021 Immunization Registry [place] - Effective on 07/12/2021. Expiration date unspecified Effective:12-Jul-2021 Name Dates Details Living Will - Effective on . Expiration date unspecified. Scanned Document is available upon request. Effective:30-Oct-2021 Immunization Registry [place] - Effective on 07/12/2021. Expiration date unspecified Effective:12-Jul-2021 Name Dates Details Living Will - Effective on . Expiration date unspecified. Scanned Document is available upon request. Effective:30-Oct-2021 Immunization Registry [place] - Effective on 07/12/2021. Expiration date unspecified Effective:12-Jul-2021 Name Dates Details Living Will - Effective on . Expiration date unspecified. Scanned Document is available upon request. Effective:30-Oct-2021 Immunization Registry [place] - Effective on 07/12/2021. Expiration date unspecified Effective:12-Jul-2021 Name Dates Details Living Will - Effective on . Expiration date unspecified. Scanned Document is available upon request. Effective:30-Oct-2021 Immunization Registry [place] - Effective on 07/12/2021. Expiration date unspecified Effective:12-Jul-2021 Name Dates Details Living Will - Effective on . Expiration date unspecified. Scanned Document is available upon request. Effective:30-Oct-2021 Immunization Registry [place] - Effective on 07/12/2021. Expiration date unspecified Effective:12-Jul-2021 Name Dates Details Living Will - Effective on . Expiration date unspecified. Scanned Document is available upon request. Effective:30-Oct-2021 Immunization Registry [place] - Effective on 07/12/2021. Expiration date unspecified Effective:12-Jul-2021 Documents on File Type Date Recorded Patient Core Dropper Expl anation Advance Directive(s) 12/16/2017 8:36 AM Advance Directive Response Recorded Date/ Time Name of Medical Power of Head Banquet Waitress January 08, 2022 11:20am Advance Directives Yes May 12:05pm Living Will Yes January 08, 2022 11 :20am Power of Head Banquet Waitress Yes January 08, 2022 11:20am Name Dates Details Living Will - Effective on . Expiration date unspecified. Scanned Document is available upon request. Effective:30-Oct-2021 Immunization Registry [place] - Effective on 07/12/2021. Expiration date unspecified Effective:12-Jul-2021 Name Dates Details Living Will - Effective on . Expiration date unspecified. Scanned Document is available upon request. Effective:30-Oct-2021 Immunization Registry [place] - Effective on 07/12/2021. Expiration date unspecified Effective:12-Jul-2021 Name Dates Details Living Will - Effective on . Expiration date unspecified. Scanned Document is available upon request. Effective:30-Oct-2021 Immunization Registry [place] - Effective on 07/12/2021. Expiration date unspecified Effective:12-Jul-2021 Name Dates Details Living Will - Effective on . Expiration date unspecified. Scanned Document is available upon request. Effective:30-Oct-2021 Immunization Registry [place] - Effective on 07/12/2021. Expiration date unspecified Effective:12-Jul-2021 Name Dates Details Living Will - Effective on . Expiration date unspecified. Scanned Document is available upon request. Effective:30-Oct-2021 Immunization Registry [place] - Effective on 07/12/2021. Expiration date unspecified Effective:12-Jul-2021 Name Dates Details Living Will - Effective on . Expiration date unspecified. Scanned Document is available upon request. Effective:30-Oct-2021 Immunization Registry [place] - Effective on 07/12/2021. Expiration date unspecified Effective:12-Jul-2021 Advance Directive Response Recorded Date/ Time Advance Directives on File Yes December 03, 2022 10:08am Name of Medical Power of Head Banquet Waitress Venecia Aburto- December 03, 2022 10:08am Advance Directives Yes December 03, 023 10:08am Living Will Yes December 03, 2022 10:08am Power of Head Banquet Waitress Yes December 03 10:08am Name Dates Details Living Will - Effective on . Expiration date unspecified. Scanned Document is available upon request. Effective:30-Oct-2021 Immunization Registry [place] - Effective on 07/12/2021. Expiration date unspecified Effective:12-Jul-2021 Advance Directive Response Recorded Date/ Time Advance Directives on File Yes December 03, 2022 10:08am Name of Medical Power of Head Banquet Waitress Venecia Aburto- December 03, 2022 10:08am Name of Medical Power of Head Banquet Waitress IRMA ABURTO- February 12, 2023 8:23am Advance Directives Yes December 03, 2 023 10:08am Living Will Yes February 12, 2023 8 :23am Power of Head Banquet Waitress Yes February 12, 2023 8:23am Name Dates Details Living Will - Effective on . Expiration date unspecified. Scanned Document is available upon request. Effective:30-Oct-2021 Immunization Registry [place] - Effective on 07/12/2021. Expiration date unspecified Effective:12-Jul-2021 Name Dates Details Living Will - Effective on . Expiration date unspecified. Scanned Document is available upon request. Effective:30-Oct-2021 Immunization Registry [place] - Effective on 07/12/2021. Expiration date unspecified Effective:12-Jul-2021 Name Dates Details Living Will - Effective on . Expiration date unspecified. Scanned Document is available upon request. Effective:30-Oct-2021 Immunization Registry [place] - Effective on 07/12/2021. Expiration date unspecified Effective:12-Jul-2021 Advance Directive Response Recorded Date/ Time Name of Medical Power of Head Banquet Waitress IRMA ABURTO- JOANIE February 12, 2023 8:23am Advance Directives Yes December 03 023 10:08am Living Will Yes February 12, 2023 8 :23am Power of Head Banquet Waitress Yes February 12, 2023 8:23am Name Dates Details Living Will - Effective on . Expiration date unspecified. Scanned Document is available upon request. Effective:30-Oct-2021 Immunization Registry [place] - Effective on 07/12/2021. Expiration date unspecified Effective:12-Jul-2021 Name Dates Details Living Will - Effective on . Expiration date unspecified. Scanned Document is available upon request. Effective:30-Oct-2021 Immunization Registry [place] - Effective on 07/12/2021. Expiration date unspecified Effective:12-Jul-2021 Advance Directive Response Recorded Date/ Time Advance Directives Yes December 03 9:08am Living Will Yes February 12, 2023 7 :23am Power of Head Banquet Waitress Yes February 12, 2023 7:23am Advance Directive Response Recorded Date/ Time Advance Directives Yes December 03 023 10:08am Living Will Yes February 12, 2023 8 :23am Power of Head Banquet Waitress Yes February 12, 2023 8:23am Advance Directive Response Recorded Date/ Time Advance Directives Yes December 03 023 10:08am Advance Directive Response Recorded Date/ Time Living Will Yes February 12, 2023 8 :23am Do you have a Healthcare Power of Head Banquet Waitress? Yes February 12, 2023 8:23am Advance Directives Yes December 03 023 10:08am Advance Directive Response Recorded Date/ Time Living Will Yes February 12, 2023 8 :23am Do you have a Healthcare Power of Head Banquet Waitress? Yes February 12, 2023 8:23am Do you have a Healthcare Power of Head Banquet Waitress? 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 COUNTER CLERK Reason for Visit Essential (primary) hypertension Hyperlipidemia Chief Complaint Admit Date Gastroesophageal reflux disease (GERD) J anuary 2024 1:53pm Gastroesophageal reflux disease (GERD) A pri2024 8:26am Reason for Visit Admit Date Yates [...] (GERD) A pril 2024 8:26am 1 Y January 26, 2025 12:54 pm Essential (primary) hypertension March 082024 5:57am Essential (primary) hypertension March 8:03am Chief Complaint Admit Date Gastroesophageal reflux disease (GERD) A pril 2024 8:26am 1 Y January 26, 2025 12:54 pm Essential (primary) hypertension March 082024 5:57am Essential (primary) hypertension March 8:03am 6 M FU March 23, 2025 10:1 8am Reason for Visit Admit Date Yates esophagus December 17, 2024 8:2 6am Gastroesophageal reflux disease December 172024 8:26am Essential (primary) hypertension January 12:54pm Hyperlipidemia January 26, 2025 12:54 pm Yates esophagus March 02, 2025 5:38 am Yates esophagus March 23, 2025 10:1 8am Gastroesophageal reflux disease March 10:18am Chief Complaint Admit Date Gastroesophageal reflux disease (GERD) A pril 2024 8:26am 1 Y January 26, 2025 12:54 pm Essential (primary) hypertension March 082024 5:57am Essential (primary) hypertension March 8:03am 6 M FU March 23, 2025 10:1 8am HIATAL HERNIA April 15, 2025 12: 51pm Chief Complaint Admit Date 1 Y January 26, 2025 12:54 pm Essential (primary) hypertension March 082024 5:57am Essential (primary) hypertension March 8:03am 6 M FU March 23, 2025 10:1 8am HIATAL HERNIA April 15, 2025 12: 51pm Reason for Visit Admit Date Essential (primary) hypertension January 12:54pm Hyperlipidemia January 26, 2025 12:54 pm Yates esophagus March 02, 2025 5:38 am Yates esophagus March 23, 2025 10:1 8am Gastroesophageal reflux disease March 10:18am Additional Source Comments (unrecognized sect ion and content) No Status Records FoundNo Status Records FoundNo Status Records FoundNo Status Records FoundNo Status Records Found INFORMATION SOURCE (unrecogn ized section and content) DATE CREATED AUTHOR 03/05/2018 [facility] DATE CREATED AUTHOR AUTHOR'S ORGANIZ ATION 03/05/2018 [facility] DATE CREATED AUTHOR AUTHOR'S ORGANIZ ATION 04/20/2022 [facility] DATE CREATED AUTHOR AUTHOR'S ORGANIZ ATION 11/14/2022 [facility] DATE CREATED AUTHOR AUTHOR'S ORGANIZ ATION 05/10/[address] [facility] Goals (unrecognized section and content) [...] or prosecute any alcohol or drug abuse patient.[facility] the event this information is protected by the Federal Confidentiality of Alcohol and Drug Abuse Patient Records regulations: The Federal rules restrict any use of the information to criminally investigate or prosecute any alcohol or drug abuse patient.[facility] Reason for Visit (unrecogniz ed section and content) Reason Comments Consult right breast Reason Comments Procedure Right Breast Biopsy Care Teams (unrecognized sec tion and content) Individual Pension Adviser Relationship Specialty Start Date End Date Clinton Francheskaraz Crandall DO [address] [facility] [address] [place] [address] PCP - General Internal Medicine 03/27/22 Individual Pension Adviser Relationship Specialty Start Date End Date Francheska Alonzo DO [address] [facility] [address] [place] [address] PCP - General Internal Medicine 03/27/22 Team Status: Active Member Role Status Dates Spike ALEMAN Family Provider Active Dr. Francheska Alonzo , DO Primary Care Provider Active Team Status: Inactive Member Role Status Dates Dr. Francheska Alonzo DO Primary Care Provider, Referring P dony Active Dr. Petros Valdez MD Attending Provider Active Team Status: Active Member Role Status Dates Dr. Franhceska Alonzo DO Primary Care Provider Active Dr. [...] Provider, Referring P rovider Active Alicia Garrido TECH BRAZER TESTER, TECH BRAZER TESTER-C Attending Provider Active Team Status: Active Member Role Status Dates Dr. Francheska Alonzo , DO Primary Care Provider, Referring P rovider Active Dr. David Parra DO Attending Provider, Other Prov ider Active Team Status: Inactive Member Role Status Dates Dr. Francheska Alonzo DO Primary Care Provider, Referring P rovider Active Dr. David Parra DO Attending Provider Active Team Status: Active [...] 2024 End: December 17, 2024 Dr. Francheska Aolnzo DO Referring Provider Active St art: December [...] March 23, 2025 End: March 23, 2025 Team Status: Inactive Member Role/Relationship Status Dates Dr. Francheska Alonzo DO Primary Care Provider Active Start: March 31, 2025 End: March 31, 2025 Dr. Francheska Alonzo DO Attending Provider Active St art: March 31, 2025 End: March 31, 2025 Dr. Francheska Alonzo DO Referring Provider Active St art: March 31, 2025 End: March 31, 2025 Team Status: Inactive Member Role/Relationship Status Dates Dr. Francheska Alonzo DO Primary Care Provider Active Start: April 15, 2025 End: April 15, 2025 Dr. Durga Pierson MD Attending Provider Active Start: April 15, 2025 End: April 15, 2025 Dr. David Parra DO Referring Provider Active Start: April 15, 2025 End: April 15, 2025 Team Status: Inactive Member Role/Relationship Status [...] March 23, 2025 End: March 23, 2025 Team Status: Inactive Member Role/Relationship Status Dates Dr. Francheska Alonzo DO Primary Care Provider Active Start: March 31, 2025 End: March 31, 2025 Dr. Francheska Alonzo DO Attending Provider Active St art: March 31, 2025 End: March 31, 2025 Dr. Francheska Alonzo DO Referring Provider Active St art: March 31, 2025 End: March 31, 2025 Team Status: Inactive Member Role/Relationship Status Dates Dr. Francheska Alonzo DO Primary Care Provider Active Start: April 15, 2025 End: April 15, 2025 Dr. Durga Pierson MD Attending Provider Active Start: April 15, 2025 End: April 15, 2025 Dr. David Parra DO Referring Provider Active Start: April 15, 2025 End: April 15, 2025 Team Status: Inactive Member Role/Relationship Status Dates Dr. Francheska Alonzo DO Primary Care Provider Active Start: April 23, 2025 End: April 23, 2025 Dr. Francheska Alonzo DO Referring Provider Active St art: April 23, 2025 End: April 23, 2025 Dr. Durga Pierson MD Attending Provider Active Start: April 23, 2025 End: April 23, 2025 FOR RECORDS PERTAINING TO PATIENTS [...] BE BASED ON THE PRIMARY CLINICAL RECORDS. [employer] provides no warranty or guarantee of the accuracy or completeness of information in this document.
--- NOTE | 2025-05-11 06:42 | EKG12_ITS ---
Test Reason : PRE OP Blood Pressure : */* mmHG Vent. Rate : 54 BPM Atrial Rate : 54 BPM P-R Int : 182 ms QRS Dur : 96 ms QT Int : 462 ms P-R-T Axes : 67 22 78 degrees QTcB Int : 438 ms Sinus bradycardia with sinus arrhythmia Minimal voltage criteria for LVH, may be normal variant ( Sokolow-Jamil ) Nonspecific ST abnormality Abnormal ECG When compared with ECG of 21-May-2016 14:13, T wave amplitude has decreased in Lateral leads Confirmed by Riky Fair ([id number]), film or videotape editor DANIEL MAHARAJ ([id number]) on 05/12/2025 8:12:44 AM Referred By: Durga Pierson Confirmed By: Riky Fair
[2025-05-11] MEDS: Lactated Ringers 1,000 ML 15 ML IV (06:45)
--- NOTE | 2025-05-11 06:53 | PCM.HP.BLA ---
History and Physical Date of Admission: 05/11/25 Intake Chief Complaint: manometry Allergies No Known Allergies Allergy (Verified 04/27/25 09:55) Medications ?Medication ?Instructions ?Recorded ?Confirmed ?Type coenzyme Q10 30 mg capsule 30 mg PO DAILY 05/21/16 04/27/25 History multivitamin 1 ea PO DAILY 05/21/16 04/27/25 History cyanocobalamin (vitamin B-12) 2,000 mcg PO DAILY 04/22/17 04/27/25 History 2,000 mcg tablet ascorbic acid (vitamin C) 1,000 mg 1 g PO QDAY 09/25/17 04/27/25 History tablet s-adenosylmethionine 400 mg tablet 800 mg PO DAILY 10/10/21 04/27/25 History melatonin 12 mg tablet 12 mg PO QHS 10/16/22 04/27/25 History rosuvastatin 10 mg tablet 10 mg PO QHS 10/16/22 04/27/25 History Held on 02/25/25. Instructions: pt does not want to take it aspirin-sod bicarb-citric acid 325 1 tab PO PRN PRN BLOATING 11/30/22 04/27/25 History mg-1,916 mg-1,000 mg efferves tab (Maryjane-Denise Original) lisinopril 5 mg tablet 5 mg PO DAILY #90 tabs 09/28/24 04/27/25 Rx omeprazole 40 mg capsule,delayed 40 mg PO QDAY #90 caps 10/16/24 04/27/25 Rx release multivitamin with min 1 tab PO DAILY 04/27/25 04/27/25 History no.36-iron,carbonyl-FA 16 mg iron-0.38 mg tablet (Geritol Complete) vitamin E 200 unit chewable tablet 1 tab PO DAILY 04/27/25 04/27/25 History Assessment and Plan Assessment and Plan (1) Hiatal hernia: Status: Acute Plan: The patient has a type II hiatal hernia and he has never had a hernia repair in the past 04/29/25 0584 <Electronically signed by Durga Pierson MD> Date Durga Pierson MD cc: ~* Signed Intake Vital Signs 03/02/2506:01 04/15/2513:03 Height 6 ft 6 ft Weight: 166 lb 6 oz BMI 22.5 BP 132/79 H Blood Pressure Location Rt brachial Position Sitting Respiration 17 Pulse 51 L Pulse Source Monitor Intake Visit Reasons: HIATAL HERNIA Chief Complaint: hiatal hernia Is patient in pain?: No Allergies No Known Allergies Allergy (Verified 04/15/25 13:04) Medications ?Medication ?Instructions ?Recorded ?Confirmed ?Type coenzyme Q10 30 mg capsule 30 mg PO DAILY 05/21/16 04/15/25 History multivitamin 1 ea PO DAILY 05/21/16 04/15/25 History cyanocobalamin (vitamin B-12) 2,000 mcg PO DAILY 04/22/17 04/15/25 History 2,000 mcg tablet ascorbic acid (vitamin C) 1,000 mg 1 g PO QDAY 09/25/17 04/15/25 History tablet s-adenosylmethionine 400 mg tablet 800 mg PO DAILY 10/10/21 04/15/25 History melatonin 12 mg tablet 12 mg PO QHS 10/16/22 04/15/25 History rosuvastatin 10 mg tablet 20 mg PO DAILY 10/16/22 04/15/25 History Held on 02/25/25. Instructions: pt does not want to take it aspirin-sod bicarb-citric acid 325 1 tab PO PRN PRN BLOATING 11/30/22 04/15/25 History mg-1,916 mg-1,000 mg efferves tab (Maryjane-Denise Original) lisinopril 5 mg tablet 5 mg PO DAILY #90 tabs 09/28/24 04/15/25 Rx omeprazole 40 mg capsule,delayed 40 mg PO QDAY #90 caps 10/16/24 04/15/25 Rx release Have you fallen in the past year?: No PFSH Medical History (Updated 04/15/25 @ 13:03 by Mckenzie Byers) Left breast mass Arteriosclerosis of coronary artery Normal stress echocardiogram Gastritis Onofre esophagus Wears glasses Alcohol use Arthritis Back pain Hepatitis High cholesterol Gastric reflux Non-smoker History of edema History of echocardiogram History of stress test Cardiology follow-up encounter Hx of colonic polyp GERD (gastroesophageal reflux disease) Mitral valve annular calcification Chronic renal insufficiency Essential (primary) hypertension Raynaud disease Hyperlipidemia Palpitations Surgical History History of hand surgery History of cardiac catheterization History of esophagogastroduodenoscopy (EGD) Hx of foot surgery Hx of colonoscopy Hx of hernia repair Hx of transurethral resection of prostate Hx of appendectomy History of hydrocelectomy Family History Father Cancer Colon cancerMother , age 72 CAD (coronary artery disease) Hypertension Breast cancer Social History Smoking Status: Never smoker alcohol intake: current alcohol intake frequency: 0-2 drinks per day substance use type: does not use caffeine: Yes Type: coffee Number of servings: 4 HPI HPI HPI: Patient is an 80-year-old male who was referred here by Dr. Parra for hiatal hernia. This was noted on EGD. The patient notes that he has terrible reflux and he has been on PPIs for several years. ROS General General: No weight change, appetite, fatigue, colon cancer, breast cancer or weakness HEENT HEENT: No difficulty swallowing, eye injury, eye surgery, swollen glands or hoarseness Endo Endocrine: No thyroid disease, diabetes mellitus, thyroid cancer, Hair loss, heat intolerance or cold intolerance Skin Skin: No rash or changing moles Musc Musculoskeletal: Yes back problems and arthritis; No rheumatoid arthritis, gout or joint pain Cardio Cardiovascular: Yes high blood pressure; No murmur, pacemaker, heart disease, atrial fibrillation, heart attack, heart stent, palpitations, shortness of breath with exertion or chest pain Psych Psychiatric: No depression, anxiety or hearing voices Resp Respiratory: No shortness of breath, No sleep apnea, No cough, No COPD, No asthma, No emphysema and No wheezing Gastro Gastrointestinal: No abdominal pain, No nausea or vomiting, No diarrhea, No constipation, No blood in stool, Yes acid reflux, No hemorrhoids, No ulcers, No gallbladder problem and No black,tarry stools Tang Hematologic: No blood thinners, No blood disorders, No bleeding, No anemia and No blood clots Neuro Neurologic: No system reviewed and no additional complaints, except as documented, No as per HPI, No abnormal gait, No abnormal hearing, No abnormal movements, No abnormal speech, No behavioral changes, No burning sensations, No confusion, No convulsions, No disequilibrium, No dizziness, No localized weakness, No frequent falls, No headache(s), No lack of coordination, No loss of vision, No memory loss, No numbness, No other visual disturbances, No radicular pain, No restless legs, No sensory deficit, No syncope, No tingling, No tremor(s), No weakness and No other Exam Const General: cooperative Orientation: alert and oriented x3 HENMT Head: normal to inspection Neck Neck: normal visual inspection and full ROM Chest Chest palpation & inspection: normal inspection of the chest Resp Effort & Inspection: normal respiratory effort Auscultation: clear to auscultation bilaterally Cardio Rate: regular rate Rhythm: regular rhythm GI Inspection: non-distended Palpation: soft and nontender Skin General: no rashes or lesions noted Neuro General: patient alert and patient oriented x3 Extrem General: full ROM Psych Appearance: grossly normal Mental Status: mental status grossly normal Assessment and Plan Assessment and Plan (1) Hiatal hernia: Status: Acute Plan: Patient has a hiatal hernia and GERD. I discussed laparoscopic hiatal hernia repair with Soni fundoplication with the patient in detail. I discussed the risks including but not limited to bleeding, infection, injury other organ such as the esophagus or heart or lungs. I also discussed the possibility of gas bloat syndrome and dysphagia following the procedure. I went over his postoperative diet with him. I will order manometry to decide between a full or partial wrap. Plan for hiatal hernia repair after that. Patient is agreeable to proceed. Durga Pierson MD Pager: [facility] [address] [place] [address], [address] [place] [address] Office: I have examined the patient and the H&P has been reviewed. There are no clinical changes since date of exam.
--- NOTE | 2025-05-11 07:09 | PRE.ANES_ITS ---
ASA Classification* ASA Classification ASA Classification: 3 Assessment & Plan Anesthesia* Anesthesia Assessment Anesthesia Assessment: Discussed sedation and/or anesthesia options, risks, benefits, and alternatives with patient/parents/legal guardian/POA. Questions invited. The patient/parents/legal guardian/POA seems to understand and agrees to proceed with anesthesia plan. Reviewed the physical assessment, medical history, allergy history and patient home medications list prior to surgery/procedure/anesthetic and documented any changes. Performed airway and anesthesia risk assessments. Anesthesia Type Anesthesia Type: General History Source History Obtained from:: Patient and Chart Anesthesia Focused Assessment* Temperature: 98.1 F Pulse Rate: 58 Blood Pressure: 148/83 Respiratory Rate: 16 Pulse Ox: 97 Oxygen Delivery Method: Room Air Airway Assessment Mouth opens: >3 cm Mallampati Score: I Teeth Condition: Caps/Crowns (Patient has couple crowns. They are tight.) Neck Range of motion (ROM): Limited ROM (Somewhat Decreased) Labs Anesthesia Preop lab: CBC WBC 5.7 K/mm3 (4.4-11.0) 03/31/25 06:03 03/31/25 RBC 4.47 M/mm3 (4.6-6.2) L 03/31/25 06:03 03/31/25 Hgb 15.1 g/dL (13.0-16.5) 03/31/25 06:03 03/31/25 Hct 43.4 % (40-54) 03/31/25 06:03 03/31/25 Plt Count 196 K/mm3 (150-450) 03/31/25 06:03 03/31/25 CHEMISTRY Potassium 4.4 mmol/L (3.3-5.1) 03/31/25 06:03 03/31/25 Sodium 140 mmol/L (133-145) 03/31/25 06:03 03/31/25 Magnesium 2.3 mg/dL (1.6-2.6) 04/18/21 12:42 04/18/21 BUN 25 mg/dL (4-19) H 03/31/25 06:03 03/31/25 Creatinine 0.85 mg/dL (0.70-1.20) 03/31/25 06:03 03/31/25 Glucose 83 mg/dL (70-99) 03/31/25 06:03 03/31/25 TSH 1.540 uIU/mL (0.300-4.200) 03/31/25 06:03 07/12/01 COAG Pre-Assessment Diagnosis/Proposed Procedure Planned Operative Procedure(s): LAP ED FUNDOPLICATION WITH REPAIR OF HIATAL HERNIA Anesthesia History 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 When Was Last Pacemaker Check QUESTION #4 FULL TEXT: You/Your Family Experience fever (hyperthermia) with Anesthesia Last Oral Intake Last Oral intake: Last Oral Intake NPO since 15:00 05/11/25 06:35 Meds taken in AM with sips of water? Meds patient instructed to take am of surgery PONV PONV - sales service representative: PONV - sales service representative Female No 04/27/25 10:16 HX of Motion Sickness No 04/27/25 10:16 HX of N/V After Surgery No 04/27/25 10:16 Non-Smoker Yes 04/27/25 10:16 Duration of Surgery greater Yes 04/27/25 10:16 than 60 minutes Number of Risk Factors 2 04/27/25 10:16 PONV Score Moderate Risk 04/27/25 10:16 Height & Weight Height & Weight: Anesthesia: Height & Weight Height 6 ft 1 in 05/11/25 06:35 Weight: 78.4 kg 05/11/25 06:35 Body Mass Index (BMI) 22.8 05/11/25 06:35 Respiratory Assessment Respiratory Assessment - sales service representative: Respiratory Tract Infection Hx - sales service representative Hx Respiratory Tract Infection No 04/27/25 10:16 STOP Sleep Apnea STOP Sleep Apnea - sales service representative: STOP Sleep Apnea - sales service representative Hx Hypertension Yes: CONTROLLED WITH MED 04/27/25 10:16 Hx Sleep Apnea No 04/27/25 10:16 CPAP BIPAP Do you snore loudly (louder No 04/27/25 10:16 than talking or can be heard Do you often feel tired/ No 04/27/25 10:16 fatigued/ sleepy during daytime? Has anyone observed you stop No 04/27/25 10:16 breathing during sleep? STOP Results Negative 04/27/25 10:16 QUESTION #5 FULL TEXT : Do you snore loudly (louder than talking or can be heard through closed doors)? 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 Specify any problems Hx of Preganancy in last 3 N/A 04/27/25 10:16 Months Nurse Filling Out Transfusion DSCHRIBER 04/27/25 10:16 & Questions: Date: 04/27/25 04/27/25 10:16 Time: 10:17 04/27/25 10:16 Patient unable to answer at this time (ie. confused, unrespo /Reproduction History /Reproductive History - sales service representative: /Reproductive Hx- sales service representative Hx Now Gestational Age (in weeks): EDC: Hx Hx Para Hx Section SAB No 04/27/25 10:16 Active Medications Active Medications: Current Medications Generic Name Dose Route Start Last Admin Trade Name Freq PRN Reason Stop Dose Admin Cefazolin Sodium 2 gm/ Sodium 110 mls @ 200 mls/hr 05/11/25 07:30 Chloride IV 05/11/25 08:02 INTRAOP ONE Lactated Ringer's 1,000 mls @ 15 mls/hr 05/11/25 06:15 05/11/25 06:45 IV 15 mls/hr .Q48H LIYA Administration PFSH Medical History Arteriosclerosis of coronary artery Left breast mass Gastritis Onofre esophagus Wears glasses Alcohol use Arthritis Back pain Hepatitis High cholesterol Non-smoker History of edema History of echocardiogram History of stress test Cardiology follow-up encounter Hx of colonic polyp GERD (gastroesophageal reflux disease) Mitral valve annular calcification Chronic renal insufficiency Essential (primary) hypertension Raynaud disease Hyperlipidemia Palpitations Home Medications ?Medication ?Instructions ?Recorded ?Last Taken ?Type coenzyme Q10 30 mg capsule 30 mg PO DAILY 05/21/1610/03 History multivitamin 1 ea PO DAILY 05/21/1605/10 History cyanocobalamin (vitamin B-12) 2,000 mcg PO DAILY 04/2205/10/25 History 2,000 mcg tablet ascorbic acid (vitamin C) 1,000 mg 1 g PO QDAY 8 05/10/25 History tablet s-adenosylmethionine 400 mg tablet 800 mg PO DAILY 09/3005/10/25 History melatonin 12 mg tablet 12 mg PO QHS 10/16/22 History rosuvastatin 10 mg tablet 10 mg PO QHS 10/16/22 History Held on 02/25/25. Instructions: pt does not want to take it aspirin-sod bicarb-citric acid 325 1 tab PO PRN PRN BL OATING 11/30/22 05/10/25 History mg-1,916 mg-1,000 mg efferves tab (Maryjane-[place] Original) lisinopril 5 mg tablet 5 mg PO DAILY #90 tabs 09/2805/10/25 Rx omeprazole 40 mg capsule,delayed 40 mg PO QDAY #90 cap s 10/16/24 05/10/25 Rx release multivitamin-minerals 1 tab PO DAILY 04/27/2510/03 History no.36-iron,carbonyl-FA 16 mg iron-0.38 mg tablet (Geritol Complete) vitamin E 200 unit chewable tablet 1 tab PO DAILY 04/0905/10/25 History Allergy/AdvReac Type Severity Reaction Status Date / Time No Known Allergies Allergy Verified 05/11/25 06:32 Family History Father Cancer Colon cancer Mother , age 72 CAD (coronary artery disease) Hypertension Breast cancer Surgical History History of hand surgery History of cardiac catheterization History of esophagogastroduodenoscopy (EGD) Hx of foot surgery Hx of colonoscopy Hx of hernia repair Hx of transurethral resection of prostate Hx of appendectomy History of hydrocelectomy Social History Smoking Status: Never smoker alcohol intake: current alcohol intake frequency: 0-2 drinks per day substance use type: does not use caffeine: Yes Type: coffee Number of servings: 4 Review of Systems (Anesthesia) ROS Narrative System reviewed and no additional complaints, except as documented.
[2025-05-11] MEDS: Lidocaine 1% (5 ml sdv) 5 ML Vial IV (07:35)
[2025-05-11] MEDS: Cefazolin 1 GM/5 ML Vial 2 GM IV (07:40)
[2025-05-11] MEDS: fentaNYL 100 MCG/2 ML Ampul 200 MCG IV (07:49)
[2025-05-11] MEDS: Lactated Ringers 2,000 ML 2000 ML IV (08:21)
[2025-05-11] MEDS: Bupiv/Epi 0.25% 30 ML Vial (09:00)
--- NOTE | 2025-05-11 09:17 | PCM.OPRPT ---
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 Supervisor [employer]: Penny San Tasks completed by first officer: Opening & closing and Retracting Type of Anesthesia: General/Regional RN Documented Start/Stop Times: Operation Date: 05/11/25 07:30 Case Time Into Pre-Op 05/11/25 06:07 Out of Pre-Op 05/11/25 07:22 Anesthesia Start 05/11/25 07:26 Into Room 05/11/25 07:26 Procedure Start 05/11/25 07:47 Procedure End 05/11/25 09:08 Anesthesia End 05/11/25 09:12 Out of Room 05/11/25 09:12 Into Recovery 05/11/25 09:13 Procedure Start Time: 07:47 Procedure Stop Time: 09:08 Select all DRAINS/GRAFTS/IMPLANTS that apply: None Estimated Blood Loss: 5 Specimen collected: No Description of surgery: Patient was brought back to the operating room and general anesthesia was induced. The abdomen was prepped and draped in usual sterile fashion. An incision was made in the right upper quadrant and the fascia was grasped and elevated and a Veress needle was placed into the abdomen. Drop test was performed. The abdomen was insufflated to 15 mmHg and the Veress needle was removed. A port was placed into the abdomen and it was inspected for injuries and there were none. The patient was placed in reverse Trendelenburg position. An incision was made in the epigastric region and the Farhad liver retractor was placed into the abdomen under direct visualization and elevated the left lobe of the liver and was locked in place. Next under direct visualization a 5 mm port was placed in the left lower quadrant as well as left upper quadrant and right upper quadrant. Next the right donnie was identified and dissected free. A window was made inferior to the esophagus. Next the short gastrics were taken down using Enseal from the mid stomach up to the esophagus. Dissection was carried out on the left crura as well. Next a Santiago was placed around the esophagus and was retracted inferiorly and the mediastinum was dissected free until there was good amount of esophagus in the abdomen. The vagus nerves were identified. Next the right crura was reapproximated to the left and sutured in place using Endo Stitch. This was done with several sutures. Next the NG was removed and the wrap was wrapped around the posterior stomach. A 56 Azeri bougie was then placed under direct visualization. The wrap was then completed using Endo Stitch. Next an EGD was performed. The abdomen was instilled with fluid. And a well-lubricated scope was placed through the mouth and into the esophagus. The esophagus appeared patent as the wrap was in appropriate position. The stomach was suctioned. There was no leaking in the abdomen. The abdomen was suctioned dry. The ports and the Farhad were removed under direct visualization. The midline port was closed with 0 Vicryl suture. All the skin incisions were injected with local anesthetic and closed with interrupted 4-0 Monocryl sutures. Steri-Strips and bandages were applied. Patient was taken to PACU in stable condition. Surgical Findings: Hiatal hernia Complications Complications: No Admit VTE Documentation VTE Mechan Device Prophylaxis: SCD's
--- NOTE | 2025-05-11 09:18 | PCM.POST.ANE ---
Anesthesia: Postop Eval I Current Vital Signs Temperature: 96.8 F Pulse Rate: 74 Blood Pressure: 134/78 Respiratory Rate: 20 Pulse Ox: 98 Oxygen Delivery Method: Room Air Assessment Airway patent: Yes Spontaneous unlabored respirations: Yes Mental status: Awake and Calm nausea: No Vomiting: No Anesthesia Complication: No Fluid Hydration Crystalloid volume administer (ml): 1,600 Total IV fluid infused: 1,600 Progress Note Anesthesia document: Postop Eval 1 completed: Yes
--- NOTE | 2025-05-11 10:45 | POSTOPAN2_ITS ---
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 Spontaneous unlabored Yes 05/11/25 09:19 [email or web address] respirations Mental status Awake,Calm 05/11/25 09:19 [employer]OR[email or web address] nausea No 05/11/25 09:19 [employer]ORER [email or web address] Vomiting No 05/11/25 09:19 [employer]ORER [email or web address] Anesthesia Postop Eval I: Fluid Summary Crystalloid volume administer 1,600 05/11/25 09:19 [employer]OR[email or web address] (ml) Colloids volume administered ( ml) Blood Product volume administered (ml) Total IV fluid infused 1,600 05/11/25 09:19 LABORER [email or web address] Anesthesia Postop Eval I: Summary Notes Anesthesia Complication No 05/11/25 09:19 [employer]OR[email or web address] Anesthesia Complication Comment: Post-operative progress note Anesthesia: Postop Eval II Evaluation Mental status: Awake and Calm Pain Level: 1 nausea: No Vomiting: No Complications Anesthesia Complication: No
--- NOTE | 2025-05-11 10:45 | PCM.POSTANE2 ---
Anesthesia Postop Eval I Sum Postop Eval Completion status Anesthesia document: Postop Eval 1 completed: Yes Anesthesia Postop Eval I Summary Anesthesia Postop Eval I Summary: Anesthesia Postop Eval I: Assessment Summary Airway patent Yes 05/11/25 09:19 [email or web address] Spontaneous unlabored Yes 05/11/25 09:19 [email or web address] [email or web address] respirations Mental status Awake,Calm 05/11/25 09:19 [email or web address] nausea No 05/11/25 09:19 [email or web address] Vomiting No 05/11/25 09:19 [email or web address] Anesthesia Postop Eval I: Fluid Summary Crystalloid volume administer 1,600 05/11/25 09:19 [email or web address] (ml) Colloids volume administered ( ml) Blood Product volume administered (ml) Total IV fluid infused 1,600 05/11/25 09:19 [email or web address] Anesthesia Postop Eval I: Summary Notes Anesthesia Complication No 05/11/25 09:19 [email or web address] Anesthesia Complication Comment: Post-operative progress note Anesthesia: Postop Eval II Evaluation Mental status: Awake and Calm Pain Level: 1 nausea: No Vomiting: No Complications Anesthesia Complication: No
[2025-05-11] MEDS: 0.9% Normal Saline (1000mL) 1,000 ML 100 ML IV ×2 (11:36→22:53)
[2025-05-12 03:16] VITALS: BP 134/73; PULSE 58; RESP 16; TEMP 36.8; O2SAT 96
[2025-05-12 06:36] VITALS: BP 126/76; PULSE 62; RESP 16; TEMP 37; O2SAT 98
[2025-05-12 07:30] LABS: Hematocrit 40.5 % (40-54); Hemoglobin 14.1 g/dL (13.0-16.5); Immature Granulocytes Count 0.010 X10^3/uL (0.0-0.0); Mean Corp Hgb Conc 34.8 g/dL (32-36); Mean Corpuscular Volume 97.6 fL (80-94); Mean Platelet Vol. 11.3 fl (6.2-12.0); NRBC Flagged by Analyzer 0 % (0-5); Platelet Count 171 K/mm3 (150-450); RBC Distribution Width CV 12.6 % (11.6-14.6); RBC Distribution Width SD 45.3 fl (35.1-43.9); Red Blood Count 4.15 M/mm3 (4.6-6.2); White Blood Count 8.8 K/mm3 (4.4-11.0)
--- NOTE | 2025-05-12 07:54 | PN.SURG_ITS ---
Subjective Subjective Patient reports he is comfortable. He denies any nausea or vomiting. Objective Data Objective Data Vital Signs: Vital Signs Temp Pulse Resp BP Pulse Ox O2 Del Method 98.6 F 62 16 126/76 H 98 Room Air 05/12/25 06:36 05/12/25 06:36 05/12/25 06:36 05/12/25 06:36 05/12/25 06:36 05/12/25 06:36 Oxygen Delivery Method Room Air Weight: 172 lb 13.478 oz Body Mass Index (BMI) 22.8 Intake & Output: Intake and Output for Last 24 Hours 05/10/25 05/11/25 05/12/25 23:59 23:59 23:59 Intake Total 1073 / 1073 Output Total 130 / 130 Balance 943 / 943 Lab / Micro Data 05/12/25 06:25 05/12/25 06:25 Labs: Laboratory Results - last 24 hr 05/12/25 06:25: WBC 8.8, RBC 4.15 L, Hgb 14.1, Hct 40.5, MCV 97.6 H, MCH 34.0 H, MCHC 34.8, RDW Std Deviation 45.3 H, RDW Coeff of Chacha 12.6, Plt Count 171, MPV 11.3, Immature Gran % (Auto) 0.100, Neut % (Auto) 74.4 H, Lymph % (Auto) 16.9 L, [place] % (Auto) 6.8, Eos % (Auto) 1.3, Baso % (Auto) 0.5, Absolute Neuts (auto) 6.6, Absolute Lymphs (auto) 1.49, Nucleated RBC % 0 Physical Exam Const oriented x3 and no apparent distress Resp normal respiratory effort GI soft to palpation Palpation: tender Extremity normal to inspection Assessment & Plan Assessment/Plan (1) Hiatal hernia: PLAN: The patient is doing well after hiatal hernia repair. I will start him on clears today and if he tolerates this I will advance him to fulls and discharged home later today. Durga Pierson MD Pager: [facility] [address] [place] [address], [address] [place] [address] Office:
[2025-05-12] MEDS: Polyethylene Glycol 3350 17 GM PACKET PO (07:55)
[2025-05-12 08:26] LABS: Anion Gap 11 (5-15); BUN 17 mg/dL (4-19); BUN/Creat Ratio 21.0 RATIO (10-20); Calcium,Total 9.1 mg/dL (7.6-11.0); Carbon Dioxide 21.8 mmol/L (21.0-32.0); Chloride 105 mmol/L (98-108); Estimated Creatinine Clearance 81.67 ml/min (50-250); Glucose 85 mg/dL (70-99); Potassium 3.7 mmol/L (3.3-5.1)
[2025-05-12 08:33] VITALS: BP 133/74; PULSE 52; RESP 16; TEMP 36.6; O2SAT 100
[2025-05-12] MEDS: 0.9% Normal Saline (1000mL) 1,000 ML 100 ML IV (10:05)
--- NOTE | 2025-05-12 10:28 | CASEMGMT ---
BRAVO Met with patient to complete BRAVO form. BRAVO form and its content were verbally explained and patient's questions were answered to the best of my ability.? Patient voiced understanding and signed BRAVO form.? Patient provided a copy of signed BRAVO form and original placed in patient's chart.? Patient had no further questions. Yeni Keith, Discharge Planning Asst
--- NOTE | 2025-05-12 12:38 | DS.PCM_ITS ---
Providers Date of Admission: 05/11/25 Primary Care Physician: Dr. Francheska Alonzo DO Reason For Visit: Lap Soni Fundoplication w/HH repair Diagnosis Discharge Diagnosis (1) Hiatal hernia: Status: Acute Code(s): K44.9 - Diaphragmatic hernia without obstruction or gangrene Plan: The patient is doing well after hiatal hernia repair. I will start him on clears today and if he tolerates this I will advance him to fulls and discharged home later today. Durga Pierson MD Pager: [facility] [address] [place] [address], [address] [place] [address] Office: Medications at Discharge Home Medications coenzyme Q10 30 mg capsule 30 mg PO DAILY 05/21/16 multivitamin 1 ea PO DAILY 05/21/16 cyanocobalamin (vitamin B-12) 2,000 mcg tablet 2,000 mcg PO DAILY 04/22/17 ascorbic acid (vitamin C) 1,000 mg tablet 1 g PO QDAY 09/25/17 s-adenosylmethionine 400 mg tablet 800 mg PO DAILY 10/10/21 melatonin 12 mg tablet 12 mg PO QHS 10/16/22 rosuvastatin 10 mg tablet 10 mg PO QHS 10/16/22 aspirin-sod bicarb-citric acid 325 mg-1,916 mg-1,000 mg efferves tab (Maryjane- [place] Original) 1 tab PO PRN PRN BLOATING 11/30/22 lisinopril 5 mg tablet 5 mg PO DAILY #90 tabs 09/28/24 omeprazole 40 mg capsule,delayed release 40 mg PO QDAY #90 caps 10/16/24 multivitamin-minerals no.36-iron,carbonyl-FA 16 mg iron-0.38 mg tablet (Geritol Complete) 1 tab PO DAILY 04/27/25 vitamin E 200 unit chewable tablet 1 tab PO DAILY 04/27/25 acetaminophen 325 mg tablet 650 mg (2 x 325 mg) PO Q4H PRN PRN Pain 1-10 Or Fever #0 tabs 05/12/25 oxycodone 5 mg tablet 5 - 10 mg (1 - 2 x 5 mg) PO Q4H PRN PRN Pain Score 4-10 5 days #10 tabs 05/12/25 Hospital Course Procedures None Summary of Care Provided Hospital Course: The patient came in for elective laparoscopic Soni fundoplication with hiatal hernia repair. He tolerated the procedure well. He tolerated full liquid diet and will be discharged home. Weight / BMI Weight Weight: 172 lb 13.478 oz Body Mass Index (BMI) 22.8 ABG / Lab / Microbiology Data 05/12/25 06:25 05/12/25 06:25 Laboratory: Laboratory Results - last 24 hr 05/12/25 06:25: WBC 8.8, RBC 4.15 L, Hgb 14.1, Hct 40.5, MCV 97.6 H, MCH 34.0 H, MCHC 34.8, RDW Std Deviation 45.3 H, RDW Coeff of Chacha 12.6, Plt Count 171, MPV 11.3, Immature Gran % (Auto) 0.100, Neut % (Auto) 74.4 H, Lymph % (Auto) 16.9 L, [place] % (Auto) 6.8, Eos % (Auto) 1.3, Baso % (Auto) 0.5, Absolute Neuts (auto) 6.6, Absolute Lymphs (auto) 1.49, Nucleated RBC % 0, Sodium 138, Potassium 3.7, Chloride 105, Carbon Dioxide 21.8, Anion Gap 11, BUN 17, Creatinine 0.79, Estim Creat Clear Calc 81.67, Est GFR (MDRD) Non-Af 90, BUN/Creatinine Ratio 21.0 H, Glucose 85, Calcium 9.1 D/C Instructions Discharge Activity: May Drive (in 2-3 days and when off narcotics) and May Shower Lifting Restrictions: 15 lbs for 6 weeks Additional Activity Instructions: Alternate ibuprofen and Tylenol for pain control, oxycodone for breakthrough pain Call your doctor if your incision/area has: Continuous Slow Oozing, Sudden Increased Bleeding, Increased Pain/ Swelling, Increased Redness, Foul Smelling Discharge and Swelling at the incision site Call your doctor if you observe: Fever of 101 or Higher Remove Dressing in: 2 days (Leave Steri-Strips on for 1 week then remove) Cleanse incision/area with: Soap & Water DC O2, CPAP, BIPAP Needs Home O2 Discharge instructions: No Please Follow Up With: Durga Pierson MD When: Please call to schedule 1 week follow up appointment. [phone] Meaningful Use Info Meaningful Use Meaningful Use Diagnoses (Choose all that apply): None applicable Discharge Plan Admission Admit Date/Time: 05/11/25 09:26 Attending Provider: Durga Pierson Primary Care Provider: Francheska Alonzo Discharge Orders/Prescriptions Prescriptions: New acetaminophen 325 mg Tablet 650 mg PO Q4H PRN PRN (Reason: Pain 1-10 Or Fever) Qty: 0 0RF oxycodone 5 mg Tablet 5 - 10 mg PO Q4H PRN PRN (Reason: Pain Score 4-10) 5 Days Qty: 10 0RF Continued ascorbic acid (vitamin C) 1,000 mg tablet 1 g PO QDAY melatonin 12 mg tablet 12 mg PO QHS rosuvastatin 10 mg tablet 10 mg PO QHS multivitamin 1 EACH tablet 1 ea PO DAILY Patient Comments: supplement coenzyme Q10 30 MG capsule 30 mg PO DAILY Patient Comments: nutrition cyanocobalamin (vitamin B-12) 2,000 MCG tablet 2,000 mcg PO DAILY s-adenosylmethionine 400 mg tablet 800 mg PO DAILY vitamin E 200 unit tablet,chewable 1 tab PO DAILY Geritol Complete 16 mg iron- 0.38 mg tablet 1 tab PO DAILY [place]ane-[place] Original 325-1,916-1,000 mg tablet, effervescent 1 tab PO PRN PRN (Reason: BLOATING) lisinopril 5 mg tablet 5 mg PO DAILY Qty: 90 3RF omeprazole 40 mg capsule,delayed release(DR/EC) 40 mg PO QDAY Qty: 90 2RF Referrals / Follow Up: Francheska Alonzo DO [Primary Care Provider] - Disposition Disposition (needs filled in before D/C Order can be placed): Home, Self Care
[2025-05-12 13:30] VITALS: BP 139/83; PULSE 61; RESP 16; TEMP 36.8; O2SAT 99
--- NOTE | 2025-05-12 14:03 | PHA.DC_ITS ---
Pharmacy [facility] Counseling Pharmacy Service has performed discharge medication reconciliation and counseling for this patient. 1. ACETAMINOPHEN 650MG PO Q4H PRN PAIN 2. OXYCODONE 5-10MG PO Q4H PRN PAIN The patient's discharge medication list was reviewed for discrepancies and discrepancies were resolved. The patient was counseled on the following discharge medications and changes in medications for homegoing were reviewed. The Reason for Use, instructions for use, and potential side effects were reviewed for all new medications. The patient's questions regarding all of their medications were answered. The patient was able to verbally demonstrate an understanding of their discharge medications. Medications at Discharge Home Medications coenzyme Q10 30 mg capsule 30 mg PO DAILY 05/21/16 multivitamin 1 ea PO DAILY 05/21/16 cyanocobalamin (vitamin B-12) 2,000 mcg tablet 2,000 mcg PO DAILY 04/22/17 ascorbic acid (vitamin C) 1,000 mg tablet 1 g PO QDAY 09/25/17 s-adenosylmethionine 400 mg tablet 800 mg PO DAILY 10/10/21 melatonin 12 mg tablet 12 mg PO QHS 10/16/22 rosuvastatin 10 mg tablet 10 mg PO QHS 10/16/22 aspirin-sod bicarb-citric acid 325 mg-1,916 mg-1,000 mg efferves tab (Maryjane- [place] Original) 1 tab PO PRN PRN BLOATING 11/30/22 lisinopril 5 mg tablet 5 mg PO DAILY #90 tabs 09/28/24 omeprazole 40 mg capsule,delayed release 40 mg PO QDAY #90 caps 10/16/24 multivitamin-minerals no.36-iron,carbonyl-FA 16 mg iron-0.38 mg tablet (Geritol Complete) 1 tab PO DAILY 04/27/25 vitamin E 200 unit chewable tablet 1 tab PO DAILY 04/27/25 acetaminophen 325 mg tablet 650 mg (2 x 325 mg) PO Q4H PRN PRN Pain 1-10 Or Fever #0 tabs 05/12/25 oxycodone 5 mg tablet 5 - 10 mg (1 - 2 x 5 mg) PO Q4H PRN PRN Pain Score 4-10 5 days #10 tabs 05/12/25
== END 2025-05-12 14:07 | disposition home or self-care (01) ==
LOC: SDC 10:10 → MS3 10:10
PROVIDERS: Admitting Provider Surgery; PCP Internal Medicine; Referring Provider Surgery; Visit Provider Surgery
PROC: (CPT 43325; principal; 2025-05-11 07:10)
DX: K44.9 Diaphragmatic hernia without obstruction or gangrene (principal); E78.00 Pure hypercholesterolemia, unspecified; N18.9 Chronic kidney disease, unspecified; I25.10 Atherosclerotic heart disease of native coronary artery without angina pectoris; I12.9 Hypertensive chronic kidney disease with stage 1 through stage 4 chronic kidney disease, or unspecified chronic kidney disease; Z79.899 Other long term (current) drug therapy; K21.9 Gastro-esophageal reflux disease without esophagitis
CPT/HCPCS: 43281; 00790; 36415; 80048; 85025; 93005; 94668; 96360; 96361; 99221; G0378; J2405

== ENCOUNTER → 2025-06-28 | Outpatient (CLI) | payer MEDICARE, SELFPAY ==
[2025-06-28 06:12] LABS: Squamous Epithelial Cells - UA 0 SEEN /hpf (0-5)
[2025-06-28 07:06] LABS: Hematocrit 44.3 % (40-54); Hemoglobin 15.8 g/dL (13.0-16.5); Immature Granulocytes Count 0.020 X10^3/uL (0.0-0.0); Mean Corp Hgb Conc 35.7 g/dL (32-36); Mean Corpuscular Volume 96.9 fL (80-94); Mean Platelet Vol. 11.0 fl (6.2-12.0); NRBC Flagged by Analyzer 0 % (0-5); Platelet Count 202 K/mm3 (150-450); RBC Distribution Width CV 12.7 % (11.6-14.6); RBC Distribution Width SD 45.5 fl (35.1-43.9); Red Blood Count 4.57 M/mm3 (4.6-6.2); White Blood Count 5.8 K/mm3 (4.4-11.0)
[2025-06-28 07:23] LABS: Creatinine, Urine (random) 116.00 mg/dL (39.00-259.00); Microalbumin,Random Urine < 12.0 mg/L (<20 mg/L)
[2025-06-28 07:58] LABS: Color, Urine Yellow (Yellow); Glucose, Dipstick Normal (Normal); Ketone-Dipstick Negative (Negative); Leukocyte Esterase-Dipstick Negative /ul (Negative); Nitrite-Dipstick Negative (Negative); Occult Blood-Urine Negative /ul (Negative); Protein-Dipstick 15 mg/dl (Negative); Specific Gravity, Urine 1.010 (1.002-1.030); Urine Bilirubin Dipstick Negative (Negative)
[2025-06-28 08:06] LABS: Mucous, Urine RARE /hpf (<or=2+); Red Blood Cells-Urine 0-5 SEEN /hpf (0-5)
[2025-06-28 08:27] LABS: AST(SGOT) 23 U/L (<=37); Alanine Aminotransfer ALT/SGPT 19 U/L (<=46); Albumin, Serum 4.6 g/dL (3.4-4.8); Alkaline Phosphatase 83 U/L (40-129); Anion Gap 12 (5-15); BUN 24 mg/dL (4-19); BUN/Creat Ratio 26.6 RATIO (10-20); Calcium,Total 9.8 mg/dL (7.6-11.0); Carbon Dioxide 24.1 mmol/L (21.0-32.0); Chloride 104 mmol/L (98-108); Cholesterol 220 mg/dL (<=200); Globulin 2.5 g/dL (2.2-4.2); Glucose 87 mg/dL (70-99); Low Density Lipoprotein Calc. 113 mg/dL; Potassium 4.5 mmol/L (3.3-5.1); Triglycerides 125 mg/dL; Very Low Density Lipoprotein 25 mg/dL (5-40); Vitamin B12 1707 pg/mL (180-914); Vitamin D,25 Hydroxy 67.2 ng/mL (30-100); cholesterol:hdl ratio screen 2.56
[2025-06-28 08:58] LABS: FOLATES,SERUM (FOLIC ACID) 33.70 ng/mL (4.60-34.80)
== END | disposition home or self-care (01) ==
LOC: LAB 06:09
PROVIDERS: PCP Internal Medicine; Referring Provider Internal Medicine; Visit Provider Internal Medicine
DX: I10 Essential (primary) hypertension (principal); E55.9 Vitamin D deficiency, unspecified; E78.5 Hyperlipidemia, unspecified; G62.9 Polyneuropathy, unspecified
CPT/HCPCS: 36415; 80053; 80061; 81001; 82043; 82306; 82570; 82607; 82746; 85025